=== PATIENT | male | born 1970 | race Caucasian/White ===

== ENCOUNTER 2024-11-13 12:11 | Emergency (ER) | payer OTHER, SELFPAY ==
[2024-11-13 12:12] VITALS: BP 118/80; PULSE 68; RESP 18; TEMP 36.6; O2SAT 95; BMI 33.3
--- NOTE | 2024-11-13 12:32 | EDS_ITS ---
HPI History of Present Illness Chief Complaint: Dizziness [facility] Medical History (Updated 11/13/24 @ 12:16 by Saba Gaines) Brain cancer Home Medications ?Medication ?Instructions ?Recorded ?Last Taken ?Type metoclopramide HCl 5 mg tablet 5 mg PO Q8H PRN PRN cathy [place] and 11/13/24 Unknown Rx (Reglan) vomiting 3 days #9 tabs midazolam 2 mg/mL oral syrup 2 mg PO Q12H PRN PRN dizz iness or 11/13/24 Unknown Rx vertigo 3 days #118 mL Allergy/AdvReac Type Severity Reaction Status Date / Time No Known Allergies Allergy Verified 11/13/24 12:14 Family History no significant family his Social History (Updated 11/13/24 @ 12:16 by Saba Gaines) household members: family housing: house current occupational status: disabled Smoking Status: Never smoker EXAM Physical Exam Const Vital Signs: 11/13/24 12:12 11/13/24 13:11 11/13/24 14:00 Temperature 97.9 F Temperature Source Oral Pulse Rate 68 78 53 L Respiratory Rate 18 16 23 H Blood Pressure 118/80 130/87 H 136/83 H Blood Pressure Mean 92 101 99 Pulse Ox 95 98 98 Oxygen Delivery Method Room Air 11/13/24 15:00 11/13/24 15:22 Temperature 98.3 F Temperature Source Pulse Rate 89 89 Respiratory Rate 16 16 Blood Pressure 120/78 120/78 Blood Pressure Mean 92 92 Pulse Ox 98 98 Oxygen Delivery Method MDM MDM MDM Narrative Medical decision making narrative: HISTORY OF PRESENT ILLNESS: Chief complaint: Dizziness, nausea 54-year-old male history of brain cancer presents with dizziness and nausea. Notes he is in the shower he got dizzy and nauseous but did not fall. He further states this began just prior to arrival. Similar to symptoms that occurred last fall. No recent trauma to the brain. No bleeding diathesis. No chest pain. No palpitations. No shortness of breath. No fever no cough. No leg swelling. No abdominal pain REVIEW OF SYSTEMS: Pertinent positives: Dizziness, nausea Pertinent negatives: Chest pain, palpitations PHYSICAL EXAM: Nursing triage notes reviewed, Vital signs reviewed Constitutional: please see mdm HENT: MMM Eyes: Pupils equal round and reactive to light, Extraocular muscles intact Neck: No stridor, no JVD, full neck ROM Lungs: Clear to auscultation, No wheezing or rales. No increased work of breathing, no conversational dyspnea, no accessory muscle use, no nasal flaring. No respiratory distress noted Heart: Regular rate and rhythm, No murmurs, No rubs and No gallops, 2+ distal pulses (radial, femoral, posterior tibial) in all extremities Abdomen: Soft, there is no tenderness, rigidity, rebound or guarding, no obvious peritoneal signs, no palpable pulsatile abdominal masses, no auscultated abdominal bruit : No CVAT Extremities: No edema Neuro: No new focal neurological deficits, cranial nerves II through XII intact, 5/5 strength in all present extremities. Intact sensation to light touch in all present extremities, 2+ reflexes bilateral patella tendons. Skin: No rash or lesions noted MEDICAL DECISION MAKING: Chief Complaint: please see HPI [facility] reviewed[facility] Factors affecting care: History of brain cancer self-reported by patient Social determinants of health: none History obtained from others: none Consults: none MDM Narrative: The patient was initially hemodynamically stable, afebrile and nontoxic- appearing. Exam without focal neurologic deficits. I considered the following differential diagnosis: ICH, mass, arrhythmia, VTE, ACS, electrolyte disturbance, anemia, acute kidney injury, amongst others Patient was initially treated IV fluids, IV Reglan for headache and nausea, IV Versed as well as oral meclizine. ALL IMAGES (IF OBTAINED) HAVE BEEN PERSONALLY REVIEWED AND INTERPRETED BY MYSELF. CBC with no leukocytosis, no anemia or thrombocytopenia noted D-dimer negative making VTE less likely CMP without evidence of acute kidney injury, significant electrolyte abnormality, anion gap to suggest end organ hypo-perfusion, no evidence of met abolic acidosis with a normal bicarbonate, no evidence of hepatobiliary obstructive pathology. High-sensitivity troponin is negative, no evidence of myocardial ischemia CT scan of the brain shows no evidence of obvious ICH or mass. Does note a postop seroma discussed postop seroma patient states this is chronic. Formal ED physician's of his opinion is highly valued. I have personally reviewed the patient's chest x-ray. Chest x-ray is unremarkable for pulmonary edema, pneumothorax, pneumonia or focal cardiopulmonary abnormality. The synthesis of the patient's history, physical exam, labs images suggest no acute life-limiting etiology specifically no sign of intracranial abnormality. After the above therapies patient noted significant improvement in dizziness. Is able to ambulate with a non-ataxic gait. Patient is appropriate for discharge home I suspect his symptoms are related to sequelae from chemotherapy and history of brain cancer. The patient and/or family, caregivers express understanding. The patient and/or family, caregivers agrees with the plan. Shared decision making: I will have a discussion with the patient and or visitors regarding risk/benefits of further testing or admission. They will be made aware of of the risk/benefits inherent in this decision they will be given the opportunity to voice understanding. Total critical care time today provided was at least 0minutes. This excludes separately billable procedures. Critical care time (if documented) is secondary to the patient having high probability of clinically significant/life threatening deterioration in the patient's condition which required my urgent intervention. Impression: 1. Dizziness 2. Vertigo 3. History of brain cancer Dispo: Discharge home This note was generated with [employer] dictation software. It may contain incorrect words, spelling, and punctuation that were not noted in review of the chart prior to signing. Lab Data Labs: Laboratory Results - last 24 hr 11/13/24 12:28 WBC 5.5 RBC 3.99 L Hgb 13.5 Hct 37.4 L MCV 93.7 MCH 33.8 H MCHC 36.1 H RDW Std Deviation 49.3 H RDW Coeff of Alyssa 14.3 Plt Count 187 MPV 9.1 Immature Gran % (Auto) 0.400 Neut % (Auto) 72.9 H Lymph % (Auto) 12.5 L [place] % (Auto) 12.6 H Eos % (Auto) 0.7 Baso % (Auto) 0.9 Absolute Neuts (auto) 4.0 Absolute Lymphs (auto) 0.69 L Nucleated RBC % 0 D-Dimer Quant (PE/DVT) 0.34 Sodium 136 Potassium 3.9 Chloride 104 Carbon Dioxide 20.5 L Anion Gap 12 BUN 16 Creatinine 1.14 Estim Creat Clear Calc 85.35 Est GFR (MDRD) Non-Af 75 BUN/Creatinine Ratio 13.8 Glucose 100 H Calcium 9.1 Total Bilirubin 0.53 AST 14 ALT 10 Alkaline Phosphatase 80 Troponin T High Sens 9 Total Protein 6.6 Albumin 3.8 Globulin 2.8 Albumin/Globulin Ratio 1.4 Radiography Diagnostic Testing: Clinical Impression(s) from Imaging Studies Brain CT 11/13/24 12:44 IMPRESSION: 1. No obvious acute intracranial finding. 2. Prior left pterional craniotomy with encephalomalacia and gliosis within the left temporal lobe. 3. Fluid overlying the craniotomy site, most compatible with seroma. Correlation with patient history recommended. Reading Location: [facility] Chest X-Ray 11/13/24 13:16 IMPRESSION: Negative Chest. Reading Location: [facility] Discharge Plan Triage Chief Complaint: Dizziness ED Provider: You Schaefer Dx/Rx/DC Orders Instructions: ED Dizziness, Uncertain Cause Prescriptions: New midazolam 2 mg/mL syrup 2 mg PO Q12H PRN PRN (Reason: dizziness or vertigo) 3 Days Qty: 118 0RF metoclopramide HCl [Reglan] 5 mg tablet 5 mg PO Q8H PRN PRN (Reason: nausea and vomiting) 3 Days Qty: 9 0RF Primary Care Provider: Care Physician,No Primary Activity Restrictions/Additional Instructions: Thank you for trusting us with your care today! Your labs images were reassuring. Please take Tylenol (2 pills, 650 mg), ibuprofen (2 pills, 400 mg) every 6 hours as needed for pain and fever control. Please take Reglan for breakthrough headache or nausea Please take Versed (midazolam) as needed for improvement in dizziness. Unfortunately I cannot find a tablet on our prescribing formulary so I was forced to prescribe an oral solution. Please return to the emergency department if your symptoms change or worsen. Please follow with your primary care physician and/or oncologist for further outpatient evaluation and management. Print Language: Japanese Disposition Disposition: Home, Self Care Discharge Date/Time: 11/13/24 15:28
--- NOTE | 2024-11-13 12:44 | CT_ITS ---
EXAM: BRAIN/HEAD WITHOUT CONTRAST CLINICAL HISTORY: 54 y/o M with DIZZINESS, HX OF BRAIN MASS. COMPARISON: None. TECHNIQUE: Routine CT imaging of the head without IV contrast. Additional multiplanar reformats were obtained. Dose reduction techniques were used including intermediate exposure control (AEC),iterative reconstruction technique, and/or mA and/or KV dose adjustments based on patient's size. FINDINGS: Prior left pterional craniotomy with encephalomalacia and gliosis within the left temporal lobe extending into the left basal nucleus, compatible with reported history of brain mass and prior resection. Fluid collection overlying the craniotomy site. No acute intracranial hemorrhage or herniation. The orbits, visualized paranasal sinuses and mastoids are unremarkable. No acute calvarial fracture or scalp hematoma. CT/Brain/Head without Contrast IMPRESSION: 1. No obvious acute intracranial finding. 2. Prior left pterional craniotomy with encephalomalacia and gliosis within the left temporal lobe. 3. Fluid overlying the craniotomy site, most compatible with seroma. Correlati on with patient history recommended. Reading Location: [id number]
--- NOTE | 2024-11-13 12:44 | EKG12_ITS ---
Test Reason : DIZZY Blood Pressure : */* mmHG Vent. Rate : 64 BPM Atrial Rate : 64 BPM P-R Int : 178 ms QRS Dur : 90 ms QT Int : 422 ms P-R-T Axes : 48 12 25 degrees QTcB Int : 435 ms Normal sinus rhythm Normal ECG Confirmed by REINIER DURAN, DIA ([id number]), assistant editor DANNY JESUS ([id number]) on 11/14/2024 9:16:14 AM Referred By: Confirmed By: DIA HILLS MD
[2024-11-13] MEDS: Metoclopramide 10 MG/2 ML Vial 5 MG IV (12:56)
[2024-11-13] MEDS: 0.9% Normal Saline (1000mL) 1,000 ML 1000 ML IV (12:56)
[2024-11-13] MEDS: Midazolam 2 MG/2 ML Syringe IV (12:56)
[2024-11-13 13:01] LABS: Absolute Lymphocyte Count 0.69 X10^3/uL (0.83-4.51); Basophil# 0.05 X10^3/uL; Basophil% 0.9 % (0-1); Eosinophil# 0.04 X10^3/uL; Eosinophils% 0.7 % (0-5); Hematocrit 37.4 % (40-54); Hemoglobin 13.5 g/dL (13.0-16.5); Lymphocyte # 0.69 X10^3/ul (0.83-4.51); Lymphocyte % 12.5 % (19-41); Mean Corp Hgb Conc 36.1 g/dL (32-36); Mean Corpuscular Hgb 33.8 pg (27.0-32.0); Mean Corpuscular Volume 93.7 fL (80-94); Mean Platelet Vol. 9.1 fl (6.2-12.0); Monocyte% 12.6 % (0-10); NRBC Flagged by Analyzer 0 % (0-5); Neutrophil # 4.04 X10^3/uL (2.7-7.7); Neutrophil % 72.9 % (47-70); Platelet Count 187 K/mm3 (150-450); RBC Distribution Width CV 14.3 % (11.6-14.6); RBC Distribution Width SD 49.3 fl (35.1-43.9); Red Blood Count 3.99 M/mm3 (4.6-6.2); White Blood Count 5.5 K/mm3 (4.4-11.0)
[2024-11-13 13:07] LABS: Troponin T High Sensitivity 9 ng/L (<=22)
[2024-11-13 13:09] LABS: ALB/GLOB Ratio 1.4 RATIO (0.9-2.4); AST(SGOT) 14 U/L (<=37); Alanine Aminotransfer ALT/SGPT 10 U/L (<=46); Albumin, Serum 3.8 g/dL (3.5-5.0); Alkaline Phosphatase 80 U/L (40-129); Anion Gap 12 (5-15); BUN 16 mg/dL (4-19); BUN/Creat Ratio 13.8 RATIO (10-20); Calcium,Total 9.1 mg/dL (7.6-11.0); Carbon Dioxide 20.5 mmol/L (21.0-32.0); Chloride 104 mmol/L (98-108); Creatinine, Serum 1.14 mg/dL (0.70-1.20); EST Glomerular Filtration Rate 75 (>60); Estimated Creatinine Clearance 85.35 ml/min (50-250); Globulin 2.8 g/dL (2.2-4.2); Glucose 100 mg/dL (70-99); Potassium 3.9 mmol/L (3.3-5.1); Protein, Total 6.6 g/dL (5.9-8.4); Sodium Level 136 mmol/L (133-145); Total Bilirubin 0.53 mg/dL (0.00-1.30)
[2024-11-13 13:11] VITALS: BP 130/87; PULSE 78; RESP 16; O2SAT 98
--- NOTE | 2024-11-13 13:16 | RAD_ITS ---
PROCEDURE: CHEST 1 VIEW (PORTABLE) 11/13/2024 REASON FOR EXAM: DIZZINESS TECHNIQUE: Frontal view of the chest. COMPARISON: None. FINDINGS: Hardware: Right chest port with tip overlying the right atrium. Heart: The heart size is normal. Lungs: No focal consolidation, pleural effusion or pneumothorax. Bones: The bones are unremarkable. RAD/Chest 1 View (Portable) IMPRESSION: Negative Chest. Reading Location: [id number]
[2024-11-13 13:17] LABS: D-Dimer Quantitative (DVT/PE) 0.34 FEU/ug/m (0.27-0.49)
[2024-11-13 14:00] VITALS: BP 136/83; PULSE 53; RESP 23; O2SAT 98
[2024-11-13] MEDS: Meclizine HCl 25 MG Tablet PO (14:26)
[2024-11-13 15:00] VITALS: BP 120/78; PULSE 89; RESP 16; O2SAT 98
[2024-11-13 15:22] VITALS: BP 120/78; PULSE 89; RESP 16; TEMP 36.8; O2SAT 98
== END 2024-11-13 15:28 | disposition home or self-care (01) ==
PROVIDERS: Emergency Provider Emergency Medicine; Visit Provider Emergency Medicine
DX: R42 Dizziness and giddiness (principal); Z85.841 Personal history of malignant neoplasm of brain; Z92.21 Personal history of antineoplastic chemotherapy
CPT/HCPCS: 36591; 70450; 71045; 80053; 84484; 85025; 85379; 93005; 96361; 96374; 96375; 99285; A4216

== ENCOUNTER 2025-03-23 11:06 | Emergency (ER) | payer OTHER, SELFPAY ==
[2025-03-23] VITALS (21 sets, daily range): BP systolic 114–138; BP diastolic 58–96; PULSE 40–77; RESP 12–19; TEMP 36.6–37.2; O2SAT 98–100; BMI 30.9
--- NOTE | 2025-03-23 11:26 | CT_ITS ---
PROCEDURE: STROKE BRAIN/HEAD WITHOUT CONT 03/23/2025 REASON FOR EXAM: NEURO DEFICIT, ACUTE, STROKE SUSPECTED Glioblastoma status post 2 prior surgeries. TECHNIQUE: STROKE BRAIN/HEAD WITHOUT CONT Coronal and Sagittal reconstruction series were provided. One or more dose reduction techniques were used (e.g., Automated exposure control, adjustment of the mA and/or kV according to patient size, use of iterative reconstruction technique. RADIATION DOSE SUMMARY: CTDlvol: 45 mGy DLP: 796 mGycm COMPARISON: November 13, 2024 FINDINGS: Brain: The patient has undergone prior and left temporal craniotomy for known brain malignancy. The margin of the cavity posteriorly shows some subtle mineralization as does the dura matter deep to the surgical site which is not unexpected. Since the exam of November 13 there has been significant interval development of vasogenic edema that extends into the left frontal lobe, caudate, internal capsule, putamen, globus pallidus and lateral thalamus. The mass effect is associated with midline shift to the right 5.4 mm. There is some mass effect on the temporal lobe inferiorly but no definite uncal herniation. Mass effect is also seen on the left lateral ventricle. A demonstrable mass is not seen well on this noncontrast exam but is very likely present. No definite features of the ischemia. CSF Spaces: No obstructive hydronephrosis. Sinuses/Mastoids: Clear Bones: Left temporal craniotomy. CT/STROKE Brain/Head without Cont IMPRESSION: 1. Postsurgical changes left temporal region. Significant interval developmen t of vasogenic edema likely from an underlying tumor recurrence. There is midline shift of 5.4 mm. No obstructive hydrocepha natan at this time. When the patient is stabilized, he may benefit from contrast-enhanced MRI. 2. No findings of definite ischemia. The findings and impression of this report were called directly to Emily Hooper 11:45 a.m. Eastern standard time. Reading Location: [id number]
--- NOTE | 2025-03-23 11:28 | EDS_ITS ---
HPI <KIA Lora - Last Filed: 03/23/25 13:23> History of Present Illness Chief Complaint: Numb/Ting Narrative Narrative: 54-year-old male has a history of brain cancer. He thinks its glioblastoma and he is on chemotherapy. He has had 2 surgeries at [facility] and has chronic expressive aphasia. This morning at 7:45 AM he got up and fed his pets and felt normal. He took a nap and woke up around 10 AM and had difficulty moving his right arm and leg and was unable to walk. He is accompanied by his mom who he lives with. He last had chemo about 2 weeks ago. He does not think he is on blood thinners. PFS <KIA Lora - Last Filed: 03/23/25 13:23> [facility] Medical History (Updated 03/23/25 @ 13:07 by KIA Lora) Brain cancer Home Medications ?Medication ?Instructions ?Recorded ?Last Taken ?Type metoclopramide HCl 5 mg tablet 5 mg PO Q8H PRN PRN cathy sea and 11/13/24 Unknown Rx (Reglan) vomiting 3 days #9 tabs midazolam 2 mg/mL oral syrup 2 mg PO Q12H PRN PRN dizz iness or 11/13/24 Unknown Rx vertigo 3 days #118 mL Allergy/AdvReac Type Severity Reaction Status Date / Time No Known Allergies Allergy Verified 03/23/25 11:11 Social History household members: family housing: house current occupational status: disabled Smoking Status: Former smoker ROS <KIA Lora - Last Filed: 03/23/25 13:23> ROS ED ROS Narrative Constitutional: Negative for fever, chills, malaise. Respiratory: Negative for shortness of breath, cough,. GI: Negative for abdominal pain, vomiting, diarrhea. Neuro: Negative for headache. EXAM <KIA Lora - Last Filed: 03/23/25 13:23> Physical Exam Narrative Exam Narrative: CONST: Patient sitting in no acute distress. EYES: Normal inspection. NECK: Normal inspection. RESP: No respiratory distress, CTAB. CVS: Regular rate and rhythm, no murmur, no gallop. SKIN: Color normal, no rash, warm, dry, intact. EXTREMITIES: Normal appearance, no pedal edema. NEURO: Alert and oriented, EOMI, visual land intact, face symmetric, right arm drifts but does not hit bed, right leg drifts and hits the bed, unable to do finger-nose or [id number] testing, mild to moderate expressive aphasia. NIH is 5. PSYCH: Normal affect. Const Vital Signs: 03/23/25 11:09 03/23/25 11:29 03/23/25 11:56 Temperature 98.9 F Temperature Source Oral Pulse Rate 73 40 L 77 Respiratory Rate 15 18 14 Blood Pressure 138/92 H 137/96 H 120/86 H Blood Pressure Mean 107 109 97 Pulse Ox 98 98 99 Oxygen Delivery Method Room Air 03/23/25 12:08 03/23/25 12:26 03/23/25 12:30 Temperature Temperature Source Pulse Rate 61 60 Respiratory Rate 15 16 Blood Pressure 124/84 H 124/84 H Blood Pressure Mean 97 97 Pulse Ox 98 99 Oxygen Delivery Method Room Air Room Air 03/23/25 13:00 03/23/25 13:30 03/23/25 14:00 Temperature Temperature Source Pulse Rate 50 L 50 L 57 L Respiratory Rate 16 18 Blood Pressure 114/58 L 120/78 121/88 H Blood Pressure Mean 76 92 99 Pulse Ox 98 98 99 Oxygen Delivery Method Room Air Room Air <Dr. Dee Dee Mitchell MD - Last Filed: 03/23/25 14:44> Physical Exam Const Vital Signs: 03/23/25 11:09 03/23/25 11:29 03/23/25 11:56 Temperature 98.9 F Temperature Source Oral Pulse Rate 73 40 L 77 Respiratory Rate 15 18 14 Blood Pressure 138/92 H 137/96 H 120/86 H Blood Pressure Mean 107 109 97 Pulse Ox 98 98 99 Oxygen Delivery Method Room Air 03/23/25 12:08 03/23/25 12:26 03/23/25 12:30 Temperature Temperature Source Pulse Rate 61 60 Respiratory Rate 15 16 Blood Pressure 124/84 H 124/84 H Blood Pressure Mean 97 97 Pulse Ox 98 99 Oxygen Delivery Method Room Air Room Air 03/23/25 13:00 03/23/25 13:30 03/23/25 14:00 Temperature Temperature Source Pulse Rate 50 L 50 L 57 L Respiratory Rate 16 18 Blood Pressure 114/58 L 120/78 121/88 H Blood Pressure Mean 76 92 99 Pulse Ox 98 98 99 Oxygen Delivery Method Room Air Room Air [facility] <KIA Lora - Last Filed: 03/23/25 13:23> [facility] Narrative Medical decision making narrative: History gathered from: Patient and his mom Differential includes but not limited to tumor recurrence, hemorrhage, ischemia Consults: [facility] neurosurgery, [facility] 54 old male with past medical history of glioblastoma, brain surgery x 2, chronic expressive aphasia presents with new right sided weakness in his arm and leg that started this morning. He is awake and alert no distress. GCS 15. Vital stable with blood pressure 138/92, HR 93, 98% on room air. He has expressive aphasia which is mom states is baseline. His right arm drifts but does not hit the bed and his right leg drifts and hits the bed. He has decreased right-sided sensation. He cannot perform finger-nose or [id number] testing on the right. NIH is around 5. I called a stroke team and he was taken immediately to CT. CT brain shows significant interval vasogenic edema likely from underlying tumor recurrence and midline shift of 5.4 mm. No obstructive hydrocephalus. No definite findings of ischemia. CTA head/neck negative. I ordered IV Decadron 10 mg and loading dose of IV Keppra 2000 mg. Blood work shows pancytopenia with WBC of 3.4, Hgb 12.1, PLT 141 likely from his chemotherapy. I do not have recent labs for comparison. Since he receives neurosurgical and oncologic care at [facility] he will need transferred. I spoke with the neurosurgeon there who states that nonsurgical and recommended admission to the oncology floor. I spoke with Dr. Zhao in [facility] who accepted the patient and he is awaiting a bed. 35 minutes of critical care time was consumed by evaluation of the patient, initial stroke team, discussion with multiple consultants for treatment and planning. Patient seen and evaluated with QI. I personally interviewed and examined the patient. I was involved in all aspects of patient's orders, interpretation of results, and treatment. In brief patient is a 54-year-old male with past medical history of a glioblastoma x 2 brain surgeries. He has chronic aphasia. Mother is at bedside. She states that his speech has been worsening over the past 2 weeks. Patient states that it has been longer than that. Last known well was 8 AM this morning. NIH of 4 on my exam for right arm and right leg drift but not hitting bed. Decreased sensation on the right and right sided minor facial droop. Expressive aphasia has been more chronic in nature, this was not included in my NIH. CT shows postsurgical changes left temporal region. Significant interval development of vasogenic edema likely from an underlying tumor recurrence. There is midline shift of 5.4 mm. No obstructive hydrocephalus at this time. When the patient is stabilized, he may benefit from contrast-enhanced MRI. No findings of definite ischemia. CTA within normal notes. Patient was evaluated with telestroke neurologist, Dr. Lopez. He recommended decadron IV and transfer to [facility] where he receives care versus [facility]. Discussed this with patient and mother at bedside. They would like to go to [facility]. [facility]I will transfer patient for further care. I recommended Keppra for seizure prophylaxis. History & Record Review Discussion w/independent historian: Patient and Family Additional record(s) reviewed:: Prior ED visit and Prior labs Lab Data Attestation: I reviewed the patient's lab results. Labs: Laboratory Results - last 24 hr 03/23/25 03/23/25 11:45 13:42 WBC 3.4 L RBC 3.46 L Hgb 12.1 L Hct 34.1 L MCV 98.6 H MCH 35.0 H MCHC 35.5 RDW Std Deviation 51.7 H RDW Coeff of Alyssa 14.6 Plt Count 141 L MPV 9.7 Immature Gran % (Auto) 2.100 H Neut % (Auto) 70.8 H Lymph % (Auto) 10.0 L Twiggs % (Auto) 16.5 H Eos % (Auto) 0.3 Baso % (Auto) 0.3 Absolute Neuts (auto) 2.4 Absolute Lymphs (auto) 0.34 L Nucleated RBC % 0 PT 13.3 INR 1.0 APTT 30.3 Sodium 139 Potassium 4.0 Chloride 107 Carbon Dioxide 22.3 Anion Gap 11 BUN 13 Creatinine 1.16 Estim Creat Clear Calc 80.88 Est GFR (MDRD) Non-Af 74 BUN/Creatinine Ratio 11.1 Glucose 101 H Calcium 9.1 Troponin T High Sens 10 D Troponin T Hi Sens 2 Hr 10 Radiography Diagnostic Testing: Clinical Impression(s) from Imaging Studies Brain CT 03/23/25 11:26 IMPRESSION: 1. Postsurgical changes left temporal region. Significant interval development of vasogenic edema likely from an underlying tumor recurrence. There is midline shift of 5.4 mm. No obstructive hydrocephalus at this time. When the patient is stabilized, he may benefit from contrast-enhanced MRI. 2. No findings of definite ischemia. The findings and impression of this report were called directly to Emily Hooper 11:45 a.m. Eastern standard time. Reading Location: [id number] Head/Neck CTA 03/23/25 11:33 IMPRESSION: CTA of the brain and neck is within normal limits. Reading Location: [facility] <Dr. Dee Dee Mitchell MD - Last Filed: 03/23/25 14:44> [facility] MDM Narrative Medical decision making narrative: History gathered from: Patient and his mom 54 old male with past medical history of glioblastoma, brain surgery x 2, chronic expressive aphasia presents with new right sided weakness in his arm and leg that started this morning. He is awake and alert no distress. GCS 15. Vital stable with blood pressure 138/92, HR 93, 98% on room air. He has expressive aphasia which is mom states is baseline. His right arm drifts but does not hit the bed and his right leg drifts and hits the bed. He has decreased right-sided sensation. He cannot perform finger-nose or egca-xv-[id number] testing on the right. NIH is around 5. I called a stroke team and he was taken immediately to CT. CT brain shows significant interval vasogenic edema likely from underlying tumor recurrence and midline shift of 5.4 mm. No obstructive hydrocephalus. No definite findings of ischemia. I ordered IV Decadron 10 mg and loading dose of IV Keppra 2000 mg. Blood work shows pancytopenia with WBC of 3.4, Hgb 12.1, PLT 141 likely from his chemotherapy. I do not have recent labs for comparison. Patient seen and evaluated with QI. I personally interviewed and examined the patient. I was involved in all aspects of patient's orders, interpretation of results, and treatment. In brief patient is a 54-year-old male with past medical history of a glioblastoma x 2 brain surgeries. He has chronic aphasia. Mother is at bedside. She states that his speech has been worsening over the past 2 weeks. Patient states that it has been longer than that. Last known well was 8 AM this morning. NIH of 4 on my exam for right arm and right leg drift but not hitting bed. Decreased sensation on the right and right sided minor facial droop. Expressive aphasia has been more chronic in nature, this was not included in my NIH. CT shows postsurgical changes left temporal region. Significant interval development of vasogenic edema likely from an underlying tumor recurrence. There is midline shift of 5.4 mm. No obstructive hydrocephalus at this time. When the patient is stabilized, he may benefit from contrast-enhanced MRI. No findings of definite ischemia. CTA within normal notes. Patient was evaluated with telestroke neurologist, Dr. Lopez. He recommended decadron IV and transfer to [facility] where he receives care versus [facility]. Discussed this with patient and mother at bedside. They would like to go to [facility]. QI will transfer patient for further care. I recommended Keppra for seizure prophylaxis. Lab Data Labs: Laboratory Results - last 24 hr 03/23/25 03/23/25 11:45 13:42 WBC 3.4 L RBC 3.46 L Hgb 12.1 L Hct 34.1 L MCV 98.6 H MCH 35.0 H MCHC 35.5 RDW Std Deviation 51.7 H RDW Coeff of Alyssa 14.6 Plt Count 141 L MPV 9.7 Immature Gran % (Auto) 2.100 H Neut % (Auto) 70.8 H Lymph % (Auto) 10.0 L Twiggs % (Auto) 16.5 H Eos % (Auto) 0.3 Baso % (Auto) 0.3 Absolute Neuts (auto) 2.4 Absolute Lymphs (auto) 0.34 L Nucleated RBC % 0 PT 13.3 INR 1.0 APTT 30.3 Sodium 139 Potassium 4.0 Chloride 107 Carbon Dioxide 22.3 Anion Gap 11 BUN 13 Creatinine 1.16 Estim Creat Clear Calc 80.88 Est GFR (MDRD) Non-Af 74 BUN/Creatinine Ratio 11.1 Glucose 101 H Calcium 9.1 Troponin T High Sens 10 D Troponin T Hi Sens 2 Hr 10 Radiography Diagnostic Testing: Clinical Impression(s) from Imaging Studies Brain CT 03/23/25 11:26 IMPRESSION: 1. Postsurgical changes left temporal region. Significant interval development of vasogenic edema likely from an underlying tumor recurrence. There is midline shift of 5.4 mm. No obstructive hydrocephalus at this time. When the patient is stabilized, he may benefit from contrast-enhanced MRI. 2. No findings of definite ischemia. The findings and impression of this report were called directly to Emily Hooper 11:45 a.m. Eastern standard time. Reading Location: [facility] Head/Neck CTA 03/23/25 11:33 IMPRESSION: CTA of the brain and neck is within normal limits. Reading Location: [facility] Discharge Plan Triage Chief Complaint: Numb/Ting ED Midlevel Provider: Viv Hooper ED Provider: Dee Dee Mitchell Dx/Rx/DC Orders Clinical Impression: Vasogenic cerebral edema, Glioblastoma, Midline shift of brain, Acute right- sided weakness Prescriptions: No Action midazolam 2 mg/mL syrup 2 mg PO Q12H PRN PRN (Reason: dizziness or vertigo) 3 Days Qty: 118 0RF metoclopramide HCl [Reglan] 5 mg tablet 5 mg PO Q8H PRN PRN (Reason: nausea and vomiting) 3 Days Qty: 9 0RF Primary Care Provider: Care Physician,No Primary Referrals: Care Physician,No Primary [Primary Care Provider] - Print Language: [place] Citizen
--- NOTE | 2025-03-23 11:33 | CT_ITS ---
PROCEDURE: STROKE CTA HEAD AND NECK W/CON 03/23/2025 REASON FOR EXAM: STROKE TECHNIQUE: STROKE CTA HEAD AND NECK W/CON Multiplanar Sagittal and Coronal images were obtained. CONTRAST: 75 cc of Isovue-300 One or more dose reduction techniques were used (e.g., Automated exposure control, adjustment of the mA and/or kV according to patient size, use of iterative reconstruction technique). RADIATION DOSE SUMMARY: DLP: 1623 mGycm COMPARISON: None FINDINGS: Aortic Arch: Patent Brachiocephalic and Subclavians: Patent RIGHT Carotid: Right CCA: Patent Right ICA: Patent Maximum stenosis (NASCET): 0 % Right ECA: Patent LEFT Carotid: Left CCA: Patent Left ICA: Patent Maximum stenosis (NASCET): 0 % Left ECA: Patent Vertebrals: Patent RIGHT Vertebral: Patent LEFT Vertebral: Patent Anatomy: Anatomic Aneurysm or avm: None Anterior cerebral arteries: Patent Middle cerebral arteries: Patent Basilar artery: Patent Posterior cerebral arteries: Patent Other major branches of the posterior circulation: Patent Major venous structures: Patent Other findings: Neck: A central access port is noted in the right. Lungs: Clear bones: Craniotomy changes are noted on the left with postsurgical changes in the frontal and temporal region, with changes in the brain discussed separately. CT/STROKE CTA Head AND Neck W/Con IMPRESSION: CTA of the brain and neck is within normal limits. Reading [facility]
[2025-03-23 11:53] LABS: Hematocrit 34.1 % (40-54); Hemoglobin 12.1 g/dL (13.0-16.5); Immature Granulocytes Count 0.070 X10^3/uL (0.0-0.0); Mean Corp Hgb Conc 35.5 g/dL (32-36); Mean Corpuscular Volume 98.6 fL (80-94); Mean Platelet Vol. 9.7 fl (6.2-12.0); NRBC Flagged by Analyzer 0 % (0-5); POSITIVE DIFFERENTIAL YES; Platelet Count 141 K/mm3 (150-450); RBC Distribution Width CV 14.6 % (11.6-14.6); RBC Distribution Width SD 51.7 fl (35.1-43.9); Red Blood Count 3.46 M/mm3 (4.6-6.2); White Blood Count 3.4 K/mm3 (4.4-11.0)
[2025-03-23 12:04] LABS: Prothrombin Time (Protime)PT. 13.3 SECONDS (11.7-14.9)
[2025-03-23 12:06] LABS: Partial Thromboplast Time 30.3 Seconds (24.1-36.2)
[2025-03-23] MEDS: levETIRAcetam IV 2,000 MG in 0.9% Normal Saline (250mL Bag) 230 ML 1000 MG IV (12:30)
[2025-03-23 12:37] LABS: Anion Gap 11 (5-15); BUN 13 mg/dL (4-19); BUN/Creat Ratio 11.1 RATIO (10-20); Calcium,Total 9.1 mg/dL (7.6-11.0); Carbon Dioxide 22.3 mmol/L (21.0-32.0); Chloride 107 mmol/L (98-108); Estimated Creatinine Clearance 80.88 ml/min (50-250); Glucose 101 mg/dL (70-99); Potassium 4.0 mmol/L (3.3-5.1); Troponin T High Sensitivity 10 ng/L (<=22)
[2025-03-23 14:16] LABS: Troponin T High Sens 2 HR 10 ng/L (<=22)
--- NOTE | 2025-03-23 22:22 | PCM.HP.STD ---
HPI - General General Date of Admission: 03/23/25 Date of Service: 03/23/25 Chief Complaint: Right-sided Numbness and Tingling. HPI Narrative SARINA KEATING, is a 54 M with a past medical history of former tobacco abuse and glioblastoma; on chemotherapy and s/p 2 surgeries at [facility] with chronic expressive aphasia on as needed metoclopramide and as needed midazolam who presents to [facility] ER complaining of right arm and leg weakness and numbness with patient unable to walk since he woke up from a nap ~10 AM. He lives at home with his mother and his last chemotherapy was ~2 weeks ago with no other recent acute illness or medication changes. His mother informed the ER physician that he is speech has been worsening over the past ~2 weeks with decree sensation on the right and minor right sided facial droop in the ER he underwent CTA of the head and neck with IV contrast that revealed significant interval vasogenic edema likely from underlying tumor recurrence and midline shift of ~5.4 mm with no obstructive hydrocephalus or definite findings of ischemia. Patient was then evaluated with telestroke neurologist Dr. Womack and he recommended IV dexamethasone and transferred to [facility] where he receives his care with the patient and mother in agreement with this recommendation. Patient was started on IV levetiracetam for seizure prophylaxis. His labs revealed mild pancytopenia; with leukopenia of 3.4 K, anemia with hemoglobin of 12.1 g/dL and moderate thrombocytopenia of 141K present on admission with Left-shift of 2.1% with otherwise unremarkable laboratory studies and vital signs. He was then admitted to the PCU to receive care after he has been in the ER for more than 6 hours as per this hospital's policy with plan to transfer to [facility] when a bed becomes available. [facility] Medical History Brain cancer Home Medications ?Medication ?Instructions ?Recorded ?Last Taken ?Type metoclopramide HCl 5 mg tablet 5 mg PO Q8H PRN PRN nausea and 11/13/24 Unknown Rx (Reglan) vomiting 3 days #9 tabs midazolam 2 mg/mL oral syrup 2 mg PO Q12H PRN PRN dizziness or 11/13/24 Unknown Rx vertigo 3 days #118 mL Allergy/AdvReac Type Severity Reaction Status Date / Time No Known Allergies Allergy Verified 03/23/25 11:11 Social History household members: family housing: house current occupational status: disabled Smoking Status: Former smoker ROS ROS Narrative Review of Systems: Vital Signs Vital Signs Vital Signs: 03/23/25 11:09 03/23/25 11:29 03/23/25 11:56 Temperature 98.9 F Temperature Source Oral Pulse Rate 73 40 L 77 Respiratory Rate 15 18 14 Blood Pressure 138/92 H 137/96 H 120/86 H Blood Pressure Mean 107 109 97 Pulse Ox 98 98 99 Oxygen Delivery Method Room Air 03/23/25 12:08 03/23/25 12:26 03/23/25 12:30 Temperature Temperature Source Pulse Rate 61 60 Respiratory Rate 15 16 Blood Pressure 124/84 H 124/84 H Blood Pressure Mean 97 97 Pulse Ox 98 99 Oxygen Delivery Method Room Air Room Air 03/23/25 13:00 03/23/25 13:30 03/23/25 14:00 Temperature Temperature Source Pulse Rate 50 L 50 L 57 L Respiratory Rate 16 18 Blood Pressure 114/58 L 120/78 121/88 H Blood Pressure Mean 76 92 99 Pulse Ox 98 98 99 Oxygen Delivery Method Room Air Room Air 03/23/25 14:30 03/23/25 15:00 03/23/25 15:30 Temperature Temperature Source Pulse Rate 55 L 56 L 56 L Respiratory Rate 18 19 H Blood Pressure 130/66 H 128/78 H 123/93 H Blood Pressure Mean 87 94 103 Pulse Ox 98 99 100 Oxygen Delivery Method 03/23/25 16:00 03/23/25 16:30 03/23/25 17:00 Temperature Temperature Source Pulse Rate 68 58 L 60 Respiratory Rate 12 19 H 18 Blood Pressure 131/93 H 117/78 120/78 Blood Pressure Mean 105 91 92 Pulse Ox 99 99 100 Oxygen Delivery Method 03/23/25 17:30 03/23/25 18:00 03/23/25 18:30 Temperature Temperature Source Pulse Rate 60 61 62 Respiratory Rate 16 16 Blood Pressure 122/77 H 133/86 H 130/86 H Blood Pressure Mean 92 101 100 Pulse Ox 100 100 100 Oxygen Delivery Method 03/23/25 18:39 03/23/25 20:39 03/23/25 22:00 Temperature Temperature Source Pulse Rate 65 71 59 L Respiratory Rate 16 Blood Pressure 131/68 H 133/87 H Blood Pressure Mean 89 102 Pulse Ox 100 100 100 Oxygen Delivery Method Weight Weight: 209 lb 7.026 oz Body Mass Index (BMI) 30.9 Results Lab / Micro Data 03/23/25 11:45 03/23/25 11:45 Labs: Laboratory Results - last 24 hr 03/23/25 11:45: WBC 3.4 L, RBC 3.46 L, Hgb 12.1 L, Hct 34.1 L, MCV 98.6 H, MCH 35.0 H, MCHC 35.5, RDW Std Deviation 51.7 H, RDW Coeff of Alyssa 14.6, Plt Count 141 L, MPV 9.7, Immature Gran % (Auto) 2.100 H, Neut % (Auto) 70.8 H, Lymph % (Auto) 10.0 L, Sully % (Auto) 16.5 H, Eos % (Auto) 0.3, Baso % (Auto) 0.3, Absolute Neuts (auto) 2.4, Absolute Lymphs (auto) 0.34 L, Nucleated RBC % 0, PT 13.3, INR 1.0, APTT 30.3, Sodium 139, Potassium 4.0, Chloride 107, Carbon Dioxide 22.3, Anion Gap 11, BUN 13, Creatinine 1.16, Estim Creat Clear Calc 80.88, Est GFR (MDRD) Non-Af 74, BUN/Creatinine Ratio 11.1, Glucose 101 H, Calcium 9.1, Troponin T High Sens 10 D 03/23/25 13:42: Troponin T Hi Sens 2 Hr 10 Imaging Radiology Impression Brain CT 03/23/25 11:26 IMPRESSION: 1. Postsurgical changes left temporal region. Significant interval development of vasogenic edema likely from an underlying tumor recurrence. There is midline shift of 5.4 mm. No obstructive hydrocephalus at this time. When the patient is stabilized, he may benefit from contrast-enhanced MRI. 2. No findings of definite ischemia. The findings and impression of this report were called directly to Emily Hooper 11:45 a.m. Eastern standard time. Reading Location: [id number] Head/Neck CTA 03/23/25 11:33 IMPRESSION: CTA of the brain and neck is within normal limits. Reading Location: [facility]
--- NOTE | 2025-03-23 23:38 | PCA ---
Called [facility] @[phone] to arrange transport, spoke to Marielos. She stated eta would be 0400. [facility] requested outsourcing, dispatch stated they would attempt. Called back @ 2330 to follow up, Marielos stated no luck due to outsourcing companies not having ALS capabilities or no availability whatsoever. Asked for list of transport companies attempted, dispatch stated they would call back with the list as they did not have it at this time.
[2025-03-24 00:04] VITALS: BP 129/81; PULSE 72; RESP 18; O2SAT 95
--- NOTE | 2025-03-24 00:32 | PCA ---
Attempted to outsource trip due to extremely long wait time. Attempted [facility], [facility], [facility], [facility], [facility], [facility], [facility], [facility], [facility], [facility], [facility], and [facility]- all do not have ALS availability tonight/into tomorrow. Also attempted [facility] & [facility] which do not have an ALS crew. [facility] does not have a night crew in [place]. [facility] and [facility] were both unreachable.
[2025-03-24] MEDS: Pantoprazole Sodium 40 MG in 0.9% Normal Saline (100mL MB+) 100 ML 330 MG IV (02:24)
== END 2025-03-24 03:29 | disposition short-term general hospital (02) ==
PROVIDERS: Physician Assistant; Emergency Provider Student in an Organized Health Care Education/Training Program; Referring Provider Student in an Organized Health Care Education/Training Program; Visit Provider Student in an Organized Health Care Education/Training Program
DX: G93.6 Cerebral edema (principal); C71.9 Malignant neoplasm of brain, unspecified; R29.898 Other symptoms and signs involving the musculoskeletal system; Z87.891 Personal history of nicotine dependence
CPT/HCPCS: 70450; 70496; 70498; 80048; 84484; 85025; 85610; 85730; 93005; 96365; 96367; 96375; 99285; Q9967; A4216

== ENCOUNTER 2025-05-01 11:09 | Emergency (ER) | payer OTHER, SELFPAY ==
[2025-05-01] VITALS (10 sets, daily range): BP systolic 137–167; BP diastolic 90–115; PULSE 39–80; RESP 11–16; TEMP 36.6; O2SAT 97–100; BMI 30.2
--- NOTE | 2025-05-01 11:14 | RAD_ITS ---
PROCEDURE: CHEST 1 VIEW 05/01/2025 REASON FOR EXAM: NEURO DEFICIT, ACUTE, STROKE SUSPECTED TECHNIQUE: Frontal view of the chest. COMPARISON: Prior study dated November 13, 2024. FINDINGS: Hardware: A right-sided port a catheter is seen with the tip at the junction of the superior vena cava and right atrium. EKG electrodes are seen. Heart: The heart size is normal. Lungs: The lungs are clear. Bones: The bones are unremarkable. Other: RAD/Chest 1 View IMPRESSION: No Acute Findings. Reading Location: [place] [id number]
--- NOTE | 2025-05-01 11:14 | EKG12_ITS ---
Test Reason : Blood Pressure : */* mmHG Vent. Rate : 46 BPM Atrial Rate : 46 BPM P-R Int : 154 ms QRS Dur : 88 ms QT Int : 448 ms P-R-T Axes : 3 1 7 degrees QTcB Int : 392 ms Sinus bradycardia Otherwise normal ECG Confirmed by REINIER DURAN, DIA ([id number]), online content editor KARLA PRADO ([id number]) on 05/02/2025 7:27:46 AM Referred By: Tb Confirmed By: DIA HILLS MD
--- NOTE | 2025-05-01 11:18 | CT_ITS ---
PROCEDURE: STROKE BRAIN/HEAD WITHOUT CONT 05/01/2025 REASON FOR EXAM: NEURO DEFICIT, ACUTE, STROKE SUSPECTED TECHNIQUE: Procedure Code: CTBR.ST Modality: CT Procedure: STROKE BRAIN/HEAD WITHOUT CONT Coronal and Sagittal reconstruction series were provided. One or more dose reduction techniques were used (e.g., Automated exposure control, adjustment of the mA and/or kV according to patient size, use of iterative reconstruction technique. RADIATION DOSE SUMMARY: CTDlvol: 44.99 mGy DLP: 796.11 mGycm COMPARISON: CT head March 23, 2025. FINDINGS: Brain: Encephalomalacia in the left temporal lobe, also in the left basal ganglia. No mass-effect or midline shift. No acute intracranial hemorrhage. The craniocervical junction is unremarkable. The orbits are unremarkable. CSF Spaces: Advanced generalized cerebral atrophy Sinuses/Mastoids: Clear. Bones: No acute bony abnormalities. Status post left temporal craniotomy. CT/STROKE Brain/Head without Cont IMPRESSION: No acute intracranial abnormalities. No intracranial hemorrhage or midline stacia ft. MRI brain with contrast may be performed to rule out tumor recurrence if clinic ally warranted. Reading Location: [facility]
--- NOTE | 2025-05-01 11:27 | CT_ITS ---
PROCEDURE: STROKE CTA HEAD AND NECK W/CON 05/01/2025 REASON FOR EXAM: NEURO DEFICIT, ACUTE, STROKE SUSPECTED TECHNIQUE: Procedure Code: [id number].ST.HN Modality: CT Procedure: STROKE CTA HEAD AND NECK W/CON Multiplanar Sagittal and Coronal images were obtained. CONTRAST: Isovue 370 VOLUME: 100 mL One or more dose reduction techniques were used (e.g., Automated exposure control, adjustment of the mA and/or kV according to patient size, use of iterative reconstruction technique). RADIATION DOSE SUMMARY: CTDlvol: 18.42 mGy DLP: 715.14 mGycm COMPARISON: CTA head and neck 03/23/2025. FINDINGS: Aortic Arch: Normal size and branching pattern. No significant atherosclerotic plaque. Brachiocephalic and Subclavians: Unremarkable RIGHT Carotid: Right CCA: Unremarkable. Right ICA: Unremarkable. Right ECA: Unremarkable. LEFT Carotid: Left CCA: Unremarkable. Left ICA: Unremarkable. Left ECA: Unremarkable. Vertebrals: Codominant. Arise from the subclavians. Both vertebrals form the basilar. RIGHT Vertebral: Unremarkable. LEFT Vertebral: Unremarkable. Aneurysm or avm: No intracranial aneurysms or large vascular malformations are identified. 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 Small amount of collateral within the left middle cerebral artery bed. The right cerebral arteries patent. Basilar artery: Unremarkable. Posterior cerebral arteries: Unremarkable. Other major branches of the posterior circulation: Unremarkable. Major venous structures: Unremarkable. Other findings: Neck: No lymphadenopathy. Lungs: Lung apices are clear. Bones: Bones are unremarkable. 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 Findings were discussed with Dr. Francis on 05/01/2025 11:56 a.m. Reading Location: [facility]
[2025-05-01 11:35] LABS: Hematocrit 34.0 % (40-54); Hemoglobin 11.8 g/dL (13.0-16.5); Immature Granulocytes Count 0.250 X10^3/uL (0.0-0.0); Mean Corp Hgb Conc 34.7 g/dL (32-36); Mean Corpuscular Volume 100.0 fL (80-94); Mean Platelet Vol. 10.0 fl (6.2-12.0); NRBC Flagged by Analyzer 1.3 % (0-5); POSITIVE COUNT YES; POSITIVE DIFFERENTIAL YES; Platelet Count 36 K/mm3 (150-450); RBC Distribution Width CV 15.9 % (11.6-14.6); RBC Distribution Width SD 57.2 fl (35.1-43.9); Red Blood Count 3.40 M/mm3 (4.6-6.2); White Blood Count 5.6 K/mm3 (4.4-11.0)
[2025-05-01 11:42] LABS: Differential Indicated SCAN CRITERIA MET; Prothrombin Time (Protime)PT. 12.8 SECONDS (11.7-14.9)
[2025-05-01 11:43] LABS: Partial Thromboplast Time 24.5 Seconds (24.1-36.2)
[2025-05-01 13:37] LABS: Anion Gap 12 (5-15); BUN 28 mg/dL (4-19); BUN/Creat Ratio 31.4 RATIO (10-20); Calcium,Total 8.2 mg/dL (7.6-11.0); Carbon Dioxide 20.5 mmol/L (21.0-32.0); Chloride 108 mmol/L (98-108); Estimated Creatinine Clearance 104.37 ml/min (50-250); Glucose 120 mg/dL (70-99); Potassium 3.8 mmol/L (3.3-5.1)
--- NOTE | 2025-05-01 14:13 | EX.ED.DYSGE1 ---
HPI History of Present Illness Chief Complaint: Stroke Alert [facility] Medical History Brain cancer Home Medications ?Medication ?Instructions ?Recorded ?Last Taken ?Type lacosamide 150 mg tablet 150 mg PO BID 03/23/25 Unknown History lomustine 100 mg capsule PO 03/23/25 Unknown History (Gleostine) trazodone 50 mg tablet 50 mg PO QHS 03/23/25 Unknown History valacyclovir 500 mg tablet 500 mg PO DAILY 03/23/25 Unknown History atovaquone 750 mg/5 mL oral mg PO 05/01/25 Unknown History suspension modafinil 100 mg tablet 100 mg PO BID PRN 05/01/25 Unknown History Allergy/AdvReac Type Severity Reaction Status Date / Time No Known Allergies Allergy Verified 03/23/25 11:11 Social History household members: family housing: house current occupational status: disabled Smoking Status: Former smoker EXAM Physical Exam Const Vital Signs: 05/01/25 11:10 05/01/25 11:14 05/01/25 11:20 Temperature 97.8 F Temperature Source Temporal Pulse Rate 80 80 Respiratory Rate 16 16 Blood Pressure 153/90 H 153/90 H Blood Pressure Mean 111 111 Pulse Ox 97 98 98 Oxygen Delivery Method Room Air Room Air 05/01/25 11:36 05/01/25 11:40 05/01/25 11:44 Temperature Temperature Source Pulse Rate 46 L 44 L 46 L Respiratory Rate 12 Blood Pressure 137/115 H 137/115 H 167/93 H Blood Pressure Mean 122 122 117 Pulse Ox 99 Oxygen Delivery Method Room Air 05/01/25 12:14 05/01/25 12:30 05/01/25 13:00 Temperature Temperature Source Pulse Rate 40 L 39 L 40 L Respiratory Rate 11 L 15 15 Blood Pressure 148/94 H 157/92 H 154/91 H Blood Pressure Mean 112 113 112 Pulse Ox 100 99 99 Oxygen Delivery Method Room Air Room Air Room Air 05/01/25 13:21 Temperature 97.8 F Temperature Source Pulse Rate 40 L Respiratory Rate 15 Blood Pressure 154/91 H Blood Pressure Mean 112 Pulse Ox 99 Oxygen Delivery Method MDM MDM Lab Data Labs: Laboratory Results - last 24 hr 05/01/25 11:25 WBC 5.6 RBC 3.40 L Hgb 11.8 L Hct 34.0 L MCV 100.0 H MCH 34.7 H MCHC 34.7 RDW Std Deviation 57.2 H RDW Coeff of Alyssa 15.9 H Plt Count 36 L* MPV 10.0 Immature Gran % (Auto) 4.500 H Neut % (Auto) 79.2 H Lymph % (Auto) 10.4 L [place] % (Auto) 5.4 Eos % (Auto) 0.0 Baso % (Auto) 0.5 Absolute Neuts (auto) 4.4 Absolute Lymphs (auto) 0.58 L Nucleated RBC % 1.3 Diff Path Review December foll PT 12.8 INR 0.9 APTT 24.5 Sodium 140 Potassium 3.8 Chloride 108 Carbon Dioxide 20.5 L Anion Gap 12 BUN 28 H Creatinine 0.89 Estim Creat Clear Calc 104.37 Est GFR (MDRD) Non-Af 100 BUN/Creatinine Ratio 31.4 H Glucose 120 H Calcium 8.2 Radiography Diagnostic Testing: Clinical Impression(s) from Imaging Studies Chest X-Ray 05/01/25 11:14 IMPRESSION: No Acute Findings. Reading Location: [facility]--[address] 05/01/25 11:18 IMPRESSION: No acute intracranial abnormalities. No intracranial hemorrhage or midline shift. MRI brain with contrast may be performed to rule out tumor recurrence if clinically warranted. 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 Findings were discussed with Dr. Francis on 05/01/2025 11:56 a.m. Reading Location: [facility] Discharge Plan Triage Chief Complaint: Stroke Alert ED Provider: Tito Osborn Dx/Rx/DC Orders Prescriptions: No Action trazodone 50 mg tablet 50 mg PO QHS Gleostine 100 mg capsule PO valacyclovir 500 mg tablet 500 mg PO DAILY lacosamide 150 mg tablet 150 mg PO BID atovaquone 750 mg/5 mL suspension PO modafinil 100 mg tablet 100 mg PO BID PRN Primary Care Provider: Care Physician,No Primary Referrals: Care Physician,No Primary [Primary Care Provider, Medical] Print Language: Arabic Disposition Disposition: Acute Care Hospital Discharge Location: [facility] Discharge Date/Time: 05/01/25 13:10
[2025-05-01 14:20] LABS: Troponin T High Sensitivity 11 ng/L (<=22)
--- NOTE | 2025-05-01 15:11 | EDS_ITS ---
HPI History of Present Illness Chief Complaint: Stroke Alert Narrative Narrative: Chief complaint and HPI: 54-year-old male with history of brain cancer presents for evaluation as a stroke alert. Patient arrives via EMS. History taken by patient as well as mother. Mother states patient's last known normal was 7 PM while eating dinner. She noticed that the patient had right-sided facial droop with right-sided weakness. Patient noticed this as well and states it has progressively worsened this morning. He has expressive aphasia, mother as well as patient states that this is baseline however it is significantly worse than his baseline. His mother lives with him. He thinks his cancer is glioblastoma and is on chemotherapy. He has had surgeries at [facility]. He is not on blood thinners. Review of systems: See HPI Medications: As listed on the chart Allergies: As listed on the chart PFSH: Per chart Vital signs: As listed on the chart. Reviewed. Physical exam: Gen: Alert, oriented to self Head: Normocephalic, atraumatic Eyes: No sclera icterus, conjunctiva clear, PERRL, EOMI, no visual field deficits ENT: Moist mucous membranes, right-sided facial droop Neck: Trachea midline, No JVD CV: RRR, no murmurs, no peripheral edema Resp: Lungs CTA BL, no w/r/c GI: Abd soft, non-distended, non-tender, no r/r/g Musc: No deformity. Weak in the right upper and lower leg compared to the left. He has some effort against gravity. Unable to assess ataxia on the right secondary to weakness. No ataxia in the left upper or lower extremity. Skin: Warm, dry Neuro: Alert, expressive aphasia, dysarthria, sensation intact, [facility] Medical History Brain cancer Home Medications ?Medication ?Instructions ?Recorded ?Last Taken ?Type lacosamide 150 mg tablet 150 mg PO BID 03/23/25 Unkno wn History lomustine 100 mg capsule PO 03/23/25 Unknown History (Gleostine) trazodone 50 mg tablet 50 mg PO QHS 03/23/25 Unknow n History valacyclovir 500 mg tablet 500 mg PO DAILY 03/23/25 Un known History atovaquone 750 mg/5 mL oral mg PO 05/01/25 Unknown His tory suspension modafinil 100 mg tablet 100 mg PO BID PRN 05/01/25 U nknown History Allergy/AdvReac Type Severity Reaction Status Date / Time No Known Allergies Allergy Verified 03/23/25 11:11 Social History household members: family housing: house current occupational status: disabled Smoking Status: Former smoker EXAM Physical Exam Const Vital Signs: 05/01/25 11:10 05/01/25 11:14 05/01/25 11:20 Temperature 97.8 F Temperature Source Temporal Pulse Rate 80 80 Respiratory Rate 16 16 Blood Pressure 153/90 H 153/90 H Blood Pressure Mean 111 111 Pulse Ox 97 98 98 Oxygen Delivery Method Room Air Room Air 05/01/25 11:36 05/01/25 11:40 05/01/25 11:44 Temperature Temperature Source Pulse Rate 46 L 44 L 46 L Respiratory Rate 12 Blood Pressure 137/115 H 137/115 H 167/93 H Blood Pressure Mean 122 122 117 Pulse Ox 99 Oxygen Delivery Method Room Air 05/01/25 12:14 05/01/25 12:30 05/01/25 13:00 Temperature Temperature Source Pulse Rate 40 L 39 L 40 L Respiratory Rate 11 L 15 15 Blood Pressure 148/94 H 157/92 H 154/91 H Blood Pressure Mean 112 113 112 Pulse Ox 100 99 99 Oxygen Delivery Method Room Air Room Air Room Air 05/01/25 13:21 Temperature 97.8 F Temperature Source Pulse Rate 40 L Respiratory Rate 15 Blood Pressure 154/91 H Blood Pressure Mean 112 Pulse Ox 99 Oxygen Delivery Method MDM MDM MDM Narrative Medical decision making narrative: 54-year-old male with history of brain cancer presents for evaluation as a stroke alert. Patient arrives via EMS. History taken by patient as well as mother. Mother states patient's last known normal was 7 PM while eating dinner. She noticed that the patient had right-sided facial droop with right-sided weakness. Patient noticed this as well and states it has progressively worsened this morning. He has expressive aphasia, mother as well as patient states that this is baseline however it is significantly worse than his baseline. His mother lives with him. He thinks his cancer is glioblastoma and is on chemotherapy. He has had surgeries at [facility]. He is not on blood thinners. Patient was made a stroke alert prior to arrival to the emergency department. He is outside the stroke window given his last known normal was 7 PM however he is inside the LVO window. Patient not a tPA candidate. Patient was taken immediately to imaging. CT head shows no acute intracranial abnormality. No intracranial hemorrhage or midline shift. He has encephalomalacia in the left temporal lobe, also left basal ganglia. Patient was evaluated by teleneurology at [facility]. Recommended transfer to [facility] and MRI brain. After speaking to teleneurology, I received a phone call from radiology. 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 This is new from CTA in March. Given this update, teleneurology at [facility] was reconsulted. I spoke again with Dr. Hodge. Plan is for patient to fly to [facility] for thrombectomy. We did contact [facility] as well as [facility] and nobody is able to fly to [facility] given the weather. Given this information, I reconsulted with Dr. Hodge. He recommends trying [facility] given patient can be flown there but if unable or not accepted will accepted to [facility] via ground transport. He was made aware that the patient's platelets are 36. [facility] Was contacted and patient was discussed. They accepted transfer. Patient will be flown. Patient and mother were updated of all the results and confirmed understanding of the plan. CBC without leukocytosis. Patient has baseline anemia of 11.8. New thrombocytopenia of 36. Coagulation panel unremarkable. BMP relatively unremarkable. Troponin unremarkable. Chest x-ray was personally reviewed and interpreted by ak, ED physician. No pneumonia, effusion, cardiomegaly, pneumothorax. Patient does have a right sided port. Radiology in agreement. Patient was transferred. 45 minutes of critical care time utilized in managing the patient. This is due to high probability of and deterioration of the patient based on the patient's condition and excludes any separately billable procedures. Impression: 1. 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 History of glioblastoma status postsurgery 3. Thrombocytopenia 4. Chronic anemia Lab Data Labs: Laboratory Results - last 24 hr 05/01/25 11:25 WBC 5.6 RBC 3.40 L Hgb 11.8 L Hct 34.0 L MCV 100.0 H MCH 34.7 H MCHC 34.7 RDW Std Deviation 57.2 H RDW Coeff of Alyssa 15.9 H Plt Count 36 L* MPV 10.0 Immature Gran % (Auto) 4.500 H Neut % (Auto) 79.2 H Lymph % (Auto) 10.4 L [place] % (Auto) 5.4 Eos % (Auto) 0.0 Baso % (Auto) 0.5 Absolute Neuts (auto) 4.4 Absolute Lymphs (auto) 0.58 L Nucleated RBC % 1.3 Diff Path Review December foll PT 12.8 INR 0.9 APTT 24.5 Sodium 140 Potassium 3.8 Chloride 108 Carbon Dioxide 20.5 L Anion Gap 12 BUN 28 H Creatinine 0.89 Estim Creat Clear Calc 104.37 Est GFR (MDRD) Non-Af 100 BUN/Creatinine Ratio 31.4 H Glucose 120 H Calcium 8.2 Troponin T High Sens 11 D Radiography Diagnostic Testing: Clinical Impression(s) from Imaging Studies Chest X-Ray 05/01/25 11:14 IMPRESSION: No Acute Findings. Reading Location: [facility]-[address] 05/01/25 11:18 IMPRESSION: No acute intracranial abnormalities. No intracranial hemorrhage or midline shift. MRI brain with contrast may be performed to rule out tumor recurrence if clinically warranted. Reading Location: [facility] Head/Neck CTA 05/01/25 11:27 IMPRESSION: Cut off/occlusion of the distal M1 segment of the left middle cerebral artery. Findings were discussed with Dr. Francis on 05/01/2025 11:56 a.m. Reading Location: [facility] Discharge Plan Triage Chief Complaint: Stroke Alert ED Provider: Tito Osborn Dx/Rx/DC Orders Prescriptions: No Action trazodone 50 mg tablet 50 mg PO QHS Gleostine 100 mg capsule PO valacyclovir 500 mg tablet 500 mg PO DAILY lacosamide 150 mg tablet 150 mg PO BID atovaquone 750 mg/5 mL suspension PO modafinil 100 mg tablet 100 mg PO BID PRN Primary Care Provider: Care Physician,No Primary Referrals: Care Physician,No Primary [Primary Care Provider, Medical] Print Language: Zambian Disposition Disposition: Acute Care Hospital Discharge Location: [facility] Discharge Date/Time: 05/01/25 13:10 NIHSS NIHSS 1a. Level of Consciousness: 0 - Alert; keenly responsive 1b. LOC Questions: 1 - Answers ONE question correctly 1c. LOC Commands: 0 - Performs BOTH tasks correctly 2. Best Gaze: 0 - Normal 3. Visual: 0 - No visual loss 4. Facial Palsy: 1 - Minor paralysis (flattened nasolabial fold, asymmetry on smiling) 5a. Left Arm: 0 - No drift; arm holds 90 (or 45) degrees for full 10 seconds 5b. Right Arm: 2 - Some effort against gravity; 6a. Left Le - No drift; leg holds 30-degree position for full 5 seconds 6b. Right Le - Some effort against gravity; 7. Limb Ataxia: 2 - Present in 2 limbs 8. Sensory: 0 - Normal; no sensory loss 9. Best Language: 2 - Severe aphasia; 10. Dysarthria: 1 = [id number] dysarthria; 11. Extinction and Inattention: 0 - No abnormality Total: 11 Stroke Questions Stroke Team Activated: Yes Reviewed Inclusion/Exclusion criteria: Yes IV Thrombolytic Administered: No
--- NOTE | 2025-05-01 15:50 | CM.ED ---
Social Work Reason for visit: Stroke Alert SW met with patients mother while patient was in testing. 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 Patients mother lives with patient and helps take care of him. Mother states understanding of patients prognosis. Emotional support provided. Mother thankful for visit. No further needs identified at this time. Zenia Newberry, [employer], PHOTOGRAPHIC [employer]ORATORY SUPERVISOR
== END 2025-05-01 13:10 | disposition short-term general hospital (02) ==
PROVIDERS: Emergency Provider Surgery; Visit Provider Surgery
DX: I66.02 Occlusion and stenosis of left middle cerebral artery (principal); C71.9 Malignant neoplasm of brain, unspecified; D64.9 Anemia, unspecified; D69.6 Thrombocytopenia, unspecified; Z87.891 Personal history of nicotine dependence; Z79.899 Other long term (current) drug therapy
CPT/HCPCS: 36591; 70450; 70496; 70498; 71045; 80048; 84484; 85025; 85610; 85730; 93005; 99285; Q9967; A4216

== ENCOUNTER 2025-05-06 16:14 | Inpatient (IN) | payer OTHER, SELFPAY ==
--- OUTSIDE RECORDS SUMMARY | 2025-05-01 13:38 | XMS RPT_ITS ---
Author Name Auto Generated Organization OHIP Care Team Providers Care Chargemaster Analyst Name Role Phone PATRICIA ENRIQUEZ Attending Unavaila ble FRAIRE-PUGA, PATRICIA Referring Unavaila ble FRAIRE-PUGA, PATRICIA Attending Unavaila ble FRAIRE-PUGA, PATRICIA Referring Unavaila ble FRAIRE-PUGA, PATRICIA Referring Unavaila ble FRAIRE-PUGA, PATRICIA Attending Unavaila ble FRAIRE-PUGA, PATRICIA Referring Unavaila ble CYNDEE JOYCE Attending Unavailable CYNDEE JOYCE Referring Unavailable KODY WARD Attending Unavailable NATHAN, JOSE Referring Unavailable KODY WARD Attending Unavailable NATHAN, JOSE Referring Unavailable FRAIRE-PUGA, PATRICIA Referring Unavaila ble FRAIRE-PUGA, PATRICIA Attending Unavaila ble KODY WARD Attending Unavailable NATHAN, JOSE Referring Unavailable NATHAN, JOSE Admitting Unavailable NATHAN, JOSE Attending Unavailable NATHAN, JOSE Referring Unavailable NATHAN, JOSE Admitting Unavailable NATHAN, JOSE Attending Unavailable FRAIRE-PUGA, PATRICIA Attending Unavaila ble FRAIRE-PUGA, PATRICIA Referring Unavaila ble FRAIRE-PUGA, PATRICIA Referring Unavaila ble BENJY TEAGUE Attending Unavailable NATHAN, JOSE Referring Unavailable NATHAN, JOSE Referring Unavailable NATHAN, JOSE Admitting Unavailable NATHAN, JOSE Attending Unavailable DANUTA GUADARRAMA Attending Unavailable SELF Referring Unavailable SRINIVASAN ZHAO Admitting Unavailable FRAIRE-PUGA, PATRICIA Referring Unavaila ble FRAIRE-PUGA, PATRICIA Referring Unavaila ble JOSE EVANS Attending Unavailable FRAIRE-PUGA, PATRICIA Referring Unavaila ble FRAIRE-PUGA, PATRICIA Referring Unavaila ble FRAIRE-PUGA, PATRICIA Referring Unavaila ble JOSE EVANS Admitting Unavailable JOSE EVANS Attending Unavailable JOSE EVANS Referring Unavailable FRAIRE-PUGA, PATRICIA Attending Unavaila ble FRAIRE-PUGA, PATRICIA Referring Unavaila ble FRAIRE-PUGA, PATRICIA Referring Unavaila ble FRAIRE-PUGA, PATRICIA Referring Unavaila ble FRAIRE-PUGA, PATRICIA Referring Unavaila ble JOSE EVANS Referring Unavailable NATHANJOSE CERVANTES Referring Unavailable FRAIRE-PUGA, PATRICIA Referring Unavaila ble FRAIRE-PUGA, PATRICIA Referring Unavaila ble FRAIRE-PUGA, PATRICIA Referring Unavaila ble FRAIRE-PUGA, PATRICIA Referring Unavaila ble FRAIRE-PUGA, PATRICIA Attending Unavaila ble FRAIRE-PUGA, PATRICIA Referring Unavaila ble FRAIRE-PUGA, PATRICIA Referring Unavaila ble FRAIRE-PUGA, PATRICIA Referring Unavaila ble FRAIRE-PUGA, PATRICIA Referring Unavaila ble FRAIRE-PUGA, PATRICIA Referring Unavaila ble CHRIST SALVADOR Attending Unavailable FRAIRE-PUGA, PATRICIA Referring Unavaila ble FRAIRE-PUGA, PATRICIA Referring Unavaila ble FRAIRE-PUGA, PATRICIA Referring Unavaila ble FRAIRE-PUGA, PATRICIA Attending Unavaila ble FRAIRE-PUGA, PATRICIA Referring Unavaila ble FRAIRE-PUGA, PATRICIA Referring Unavaila ble FRAIRE-PUGA, PATRICIA Referring Unavaila ble FRAIRE-PUGA, PATRICIA Referring Unavaila ble FRAIRE-PUGA, PATRICIA Referring Unavaila ble JOSE EVANS Referring Unavailable JOSE EVANS Referring Unavailable FRAIRE-PUGA, PATRICIA Referring Unavaila ble FRAIRE-PUGA, PATRICIA Referring Unavaila ble FRAIRE-PUGA, PATRICIA Referring Unavaila ble FRAIRE-PUGA, PATRICIA Referring Unavaila ble FRAIRE-PUGA, PATRICIA Referring Unavaila ble FRAIRE-PUGA, PATRICIA Referring Unavaila ble FRAIRE-PUGA, PATRICIA Referring Unavaila ble FRAIRE-PUGA, PATRICIA Attending Unavaila ble FRAIRE-PUGA, PATRICIA Referring Unavaila ble JOSE EVANS Attending Unavailable FRAIRE-PUGA, PATRICIA Attending Unavaila ble FRAIRE-PUGA, PATRICIA Referring Unavaila ble FRAIRE-PUGA, PATRICIA Referring Unavaila ble FRAIRE-PUGA, PATRICIA Referring Unavaila ble FRAIRE-PUGA, PATRICIA Referring Unavaila ble FRAIRE-PUGA, PATRICIA Referring Unavaila ble FRAIRE-PUGA, PATRICIA Referring Unavaila ble FRAIRE-PUGA, PATRICIA Referring Unavaila ble FRAIRE-PUGA, PATRICIA Attending Unavaila ble FRAIRE-PUGA, PATRICIA Referring Unavaila ble FRAIRE-PUGA, PATRICIA Referring Unavaila ble FRAIRE-PUGA, PATRICIA Referring Unavaila ble JOSE EVANS Referring Unavailable FRAIRE-PUGA, PATRICIA Referring Unavaila ble JOSE EVANS Referring Unavailable FRAIRE-PUGA, PATRICIA Attending Unavaila ble FRAIRE-PUGA, PATRICIA Referring Unavaila ble FRAIRE-PUGA, PATRICIA Attending Unavaila ble FRAIRE-PUGA, PATRICIA Referring Unavaila ble FRAIRE-PUGA, PATRICIA Referring Unavaila ble FRAIRE-PUGA, PATRICIA Referring Unavaila ble FRAIRE-PUGA, PATRICIA Referring Unavaila ble FRAIRE-PUGA, PATRICIA Referring Unavaila ble FRAIRE-PUGA, PATRICIA Referring Unavaila ble FRAIRE-PUGA, PATRICIA Attending Unavaila ble FRAIRE-PUGA, PATRICIA Referring Unavaila ble FRAIRE-PUGA, PATRICIA Referring Unavaila ble JOSE EVANS Admitting Unavailable NATHAN, JOSE Attending Unavailable NATHAN, JOSE Referring Unavailable NATHAN, JOSE Admitting Unavailable NATHAN, JOSE Attending Unavailable NATHAN, JOSE Admitting Unavailable NATHAN, JOSE Attending Unavailable NATHAN, JOSE Admitting Unavailable NATHAN, JOSE Attending Unavailable NATHAN, JOSE Referring Unavailable FRAIRE-PUGA, PATRICIA Referring Unavaila ble FRAIRE-PUGA, PATRICIA Attending Unavaila ble FRAIRE-PUGA, PARTICIA Referring Unavaila ble FRAIRE-PUGA, PATRICIA Referring Unavaila ble MULU PIZARRO Attending Unavailable FRAIRE-PUGA, PATRICIA A Consulting ALLIE Willams Admitting Unavailable AMBREEN GOODWIN Referring Unavailable KLUSTYAMBREEN MAK Referring Unavaila ble PROBLEMS DATE TYPE CONDITION / CODE ATTENDING STATUS [facility] 05/03/2025 Active Sinus bradycardi a / R00.1(ICD-10) MULU PIZARRO Active [facility] 05/01/2025 Active Arterial ischemi c stroke, MCA (middle cerebral artery), left, acute (HCC) / I63.512(ICD-10) MULU PIZARRO Active [facility] 05/01/2025 Active Acute ischemic l eft MCA stroke (HCC) / I63.512(ICD-10) MULU PIZARRO Active [facility] 05/01/2025 Admitting diagnosis Stroke / UNK(Unknown) NA Active [facility] 10/13/2024 Active Thrombocytopenia / D69.6(ICD-10) NA Active [facility] 05/27/2024 Active GBM (glioblastom a multiforme) (HCC) / C71.9(ICD-10) NA Active [facility] 04/05/2025 Active Encounter for chemotherapy management / Z51.11(ICD-10) NA Active [facility] 04/05/2025 Active Encounter for antineoplastic immunotherapy / Z51.12(ICD-10) NA Active [facility] 03/28/2025 Active Glioblastoma (HC C) / C71.9(ICD-10) JUNO-PATRICIA PUGA Active [facility] 04/03/2025 Active Seizures (HCC) / R56.9(ICD-10) PATRICIA ENRIQUEZ Active [facility] 03/24/2025 Active Nausea and vomit ing, unspecified vomiting type / R11.2(ICD-10) DANUTA GUADARRAMA Active [facility] 03/24/2025 Active High grade gliom a not classifiable by WHO criteria (HCC) / C71.9(ICD-10) DANUTA GUADARRAMA Active [facility] 03/24/2025 Active Chemotherapy-ind uced nausea / R11.0(ICD-10) DANUTA GUADARRAMA Active [facility] 03/24/2025 Active Chemotherapy-ind uced nausea / T45.1X5A(ICD-10) DANUTA GUADARRAMA Active [facility] 03/24/2025 Active At risk of seizu res / Z91.89(ICD-10) DANUTA GUADARRAMA Active [facility] 03/24/2025 Active Other fatigue / R53.83(ICD-10) DANUTA GUADARRAMA Active [facility] 03/24/2025 Active Insomnia, unspec ified type / G47.00(ICD-10) DANUTA GUADARRAMA Active [facility] 03/24/2025 Active Prophylaxis for chemotherapy-induced neutropenia / Z76.89(ICD-10) DANUTA GUADARRAMA Active [facility] 03/24/2025 Active Herpes zoster wi th complication / B02.8(ICD-10) DANUTA GUADARRAMA Active [facility] 02/08/2025 Active Viral illness / B34.9(ICD-10) BENJY TEAGUE Active [facility] 12/01/2024 Active Established Miley ent / UNK(Unknown) PATRICIA ENRIQUEZ Active [facility] 11/01/2024 Active Thrombocytosis / D75.839(ICD-10) PATRICIA ENRIQUEZ Active [facility] 05/26/2024 Active Brain tumor (HCC ) / D49.6(ICD-10) NA Active [facility] 05/26/2024 Active PONV (postoperat araceli nausea and vomiting) / R11.2(ICD-10) NA Active [facility] 05/26/2024 Active PONV (postoperat araceli nausea and vomiting) / Z98.890(ICD-10) NA Active [facility] 03/20/2023 Active Obesity, Class I , BMI 30-34.9 / E66.811(ICD-10) NA Active [facility] 05/26/2024 Active Pre-op evaluatio n / Z01.818(ICD-10) NA Active [facility] PROCEDURES No Procedure Records Found RESULTS CNDS Observed: 05/06/2025 1:08 PM Status: COMPLETED Source: [facility] HNO ID: [id number] Author: MULU PIZARRO DO Service: Hospital Medicine Author Type: Physician Type: Discharge Summary Filed: 05/06/2025 13:09 Note Text: DISCHARGE SUMMARY PATIENT NAME: Angel Keating Code Status: DNR-CCA, DNI Highest Readmission Risk Score: 20 The 30 day readmissions risk score is derived from an internally validated risk model which evaluates patient level characteristics, utilization history, medication orders and lab results up until the day of discharge. Patients with a score of 39 or above are considered highest risk for readmission. Specific patient level drivers will be listed at the bottom of the summary. Admission Information Admission Information ADMIT DATE: 05/01/2025 DISCHARGE DATE: 05/06/25 MY DOCTORS AND MEDICAL TEAM: My Main Hospital Doctor: Mulu Pizarro DO Primary Care Provider: No primary care provider on file. My Medical Team Members: Treatment Team: Attending Provider: Mulu Pizarro DO Consulting: Nima Suárez MD Consulting: Hamida Santamaria MD Consulting: Ross Maxwell MD Primary Service: YASMIN ROCHA MY CONDITION AT DISCHARGE: Stable REASON I WAS IN THE HOSPITAL: acute CVA SUMMARY OF WHAT HAPPENED WHILE I WAS IN THE HOSPITAL: Patient is a 54-year-old male history of GBM status post resection/chemotherapy, thrombocytopenia, seizures, anxiety who presented with right-sided weakness and aphasia, initial NIH was [address] with left M1 occlusion but outside of the window for tPA. Admitted to [facility] For emergent EVT and admitted to neuro ICU. Was given platelet transfusion. Vimpat was switched to Keppra due to bradycardia and he was seen by cardiology without indication for pacemaker. Seen by PT/OT and discharged to SNF in stable condition. Follow-up with neuro oncology as scheduled on 05/11 as well as neurology. OTHER PROBLEMS/DIAGNOSIS: Principal Problem: Arterial ischemic stroke, MCA (middle cerebral artery), left, acute (HCC) Active Problems: Class 1 obesity without serious comorbidity with body mass index (BMI) of 30.0 to 30.9 in adult At risk for seizures Cerebral edema (HCC) GBM (glioblastoma multiforme) (HCC) Thrombocytopenia Hemiparesis of right dominant side (HCC) Aphasia due to acute cerebrovascular accident (CVA) (HCC) Bradycardia Metabolic acidosis Hemiparesis due to acute cerebrovascular disease (HCC) Dysarthria due to acute stroke (HCC) History of seizure Cytotoxic cerebral edema (HCC) At risk for altered cerebral tissue perfusion due to history of stroke DNR (do not resuscitate) DNI (do not intubate) Hyperglycemia, drug-induced Obesity, Class I, BMI 30-34.9 Sinus bradycardia Mild left ventricular systolic dysfunction (LVSD) Resolved Problems: * No resolved hospital problems. * OPERATIONS PERFORMED WHILE IN THE HOSPITAL: EVT IMPORTANT TEST/PROCEDURES: Echocardiogram TEST RESULTS NOT AVAILABLE AT THIS TIME: No pending results Discharge Disposition Discharge Disposition: Detention Facility - Greater than 30 Days Activity When You Leave the Hospital Resume pre-hospital activity Diet Instructions Resume your pre-hospital diet Call Your Doctor If You have a severe headache You have lightheadedness, fainting, or confusion You have persistent nausea/vomiting over 24 hours You have persistent or heavy bleeding You have swollen glands or cold and clammy skin Your temperature is greater than 101F Follow Up Appointments Follow-up Appointment When: In 1 week Patricia Enriquez MD [phone] [place] [facility] [address] PCP Requested Referral Treatment Team: Attending Provider: Mulu Pizarro DO Consulting: Nima Suárez MD Consulting: Hamida Santamaria MD Consulting: Ross Maxwell MD Primary Service: YASMIN ROCHA Consulting: (Internal), Internal Provider (Inactive) Consulting: Patricia Enriquez MD Active Hospital Problems Diagnosis POA Arterial ischemic stroke, MCA (middle cerebral artery), left, acute (HCC) Yes Mild left ventricular systolic dysfunction (LVSD) Unknown Obesity, Class I, BMI 30-34.9 Yes Sinus bradycardia Yes Cytotoxic cerebral edema (HCC) Yes At risk for altered cerebral tissue perfusion due to history of stroke Yes DNR (do not resuscitate) Yes DNI (do not intubate) Yes Hyperglycemia, drug-induced Yes Hemiparesis of right dominant side (HCC) Yes Aphasia due to acute cerebrovascular accident (CVA) (HCC) Yes Bradycardia Yes Metabolic acidosis Yes Hemiparesis due to acute cerebrovascular disease (HCC) Yes Dysarthria due to acute stroke (HCC) Yes History of seizure Yes Thrombocytopenia Yes GBM (glioblastoma multiforme) (HCC) Yes At risk for seizures Yes Cerebral edema (HCC) Yes Class 1 obesity without serious comorbidity with body mass index (BMI) of 30.0 to 30.9 in adult Yes Resolved Hospital Problems No resolved problems to display. FOLLOW-UP APPOINTMENTS ALREADY SCHEDULED WITH A [facility] PROVIDER: Future Appointments Date Time Provider Department Center 05/11/2025 2:00 PM Patricia Enriquez MD [facility] Main [place] Bldg 05/18/2025 10:30 AM TREATMENT RM 8 [facility] HEMAWS Ronald Nguyen 06/19/2025 11:00 AM MRI [facility] (I-STAT/1.5T) RMRIWS Ronald Nguyen 06/21/2025 9:30 AM Patricia Enriquez MD [facility] Main [place] Bldg ALLERGIES No Known Allergies DISCHARGE MEDICATION: Medication List START taking these medications aspirin 81 mg chewable tablet 1 tablet by ORAL/FEEDING TUBE route once daily. Start taking on: May 07, 2025 atorvastatin 40 mg tablet Commonly known as: LIPITOR 1 tablet by ORAL/FEEDING TUBE route daily at bedtime. levETIRAcetam 1,000 mg tablet Commonly known as: KEPPRA 1 tablet by ORAL/FEEDING TUBE route two times a day. losartan 25 mg tablet Commonly known as: COZAAR Take 0.5 tablets by mouth once daily. Start taking on: May 07, 2025 CHANGE how you take these medications dexAMETHasone 2 mg tablet Commonly known as: DECADRON 5 tablets by ORAL/FEEDING TUBE route once daily. Start taking on: May 07, 2025 What changed: medication strength how much to take how to take this when to take this Another medication with the same name was removed. Continue taking this medication, and follow the directions you see here. CONTINUE taking these medications acetaminophen 325 mg tablet Commonly known as: TYLENOL 2 tablets by ORAL/FEEDING TUBE route every 4 hours as needed for pain. atovaquone 750 mg/5 mL oral liquid Commonly known as: MEPRON Take 10 mL by mouth daily with breakfast. Miscellaneous Medical Supply Kit Outpatient physical therapy modafinil 100 mg tablet Commonly known as: PROVIGIL Take 1 tablet in the morning. If needed take another tablet at 2 pm valACYclovir 500 mg tablet Commonly known as: VALTREX Take 1 tablet by mouth once daily. STOP taking these medications lacosamide 150 mg Tab Commonly known as: VIMPAT General - NAD, Calm CV - RRR S1 S2 RESP - CTA B/L ABD - soft, NT, ND +BS EXT - no edema NEURO - nl speech, moving all extremities The patient's risk for 30-day readmission is determined using the following contributing factors: Predictive Model Details 19% (Moderate) Factor Value Calculated 05/06/2025 05:20 -19% Admission Provider Speciality NEUROLOGY [facility] READMISSION RISK Model 11% Appointments (365d) 29 9% Admissions (60d) 2 -8% ED visits (365d) 0 7% Admissions (90d) 2 6% Admissions (365d) 3 -6% Sodium (Avg) 139.75 5% Malnutrition 1 5% diagnosis count 23 -5% ED Encounter 0 Plan of care discussed with Provider, RN, Patient I personally spent 35 minutes involved in the discharge management of this patient. SIGNATURE: Mulu Pizarro DO DATE: May 06, 2025 TIME: 1:08 PM CASE MANAGEM Observed: 05/06/2025 10:15 AM Status: COMPLETED Source: [facility] HNO ID: [id number] Author: MITCHELL RAWLS LSW Service: Care Management Author Type: Pull Worker Type: Care Mgt Progress Note Filed: 05/06/2025 10:29 Note Text: CARE MANAGEMENT DISCHARGE NOTE SERVICE DATE: May 06, 2025 SERVICE TIME: 10:15 AM Admission Date: 05/01/2025 LOS: 5 days Discharge Arrangement Discharge Arrangement: Detention Facility Services Arranged SNF Provider Name: Dr. 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 RN/MD aware. N2N number [phone]. Cot packet on pts chart. SW called [facility], is aware of dc time today. No other dc needs at this time. SIGNATURE: JULIO Rasmussen PATIENT NAME: Angel Keating DATE: May 06, 2025 TIME: 10:15 AM Ext [id number] CBC PNL BLD AUTO Collected: 05/06/2025 4:33 AM Statu s: F Source: [facility] Order Comment: Specimen Type : BLOOD SPECIMEN Ordering Facility: [facility] Address: [address] [place] [address] TYPE CODE TESTS RESULT OUT OF RANGE REFERENCE UNITS LAB 6690-2(LOINC) WBC # Bld Auto 5.30 3.70-11.00 k/uL LAB 789-8(LOINC) RBC # Bld Auto 3.45 Low 4.20-6.00 m/ uL LAB 718-7(LOINC) Hgb Bld-mCnc 12.1 Low 13.0-17.0 g/dL LAB 4544-3(LOINC) Hct VFr Bld Auto 34.0 Low 39.0-51.0 % LAB 787-2(LOINC) MCV RBC Auto 98.6 80.0-100.0 fL LAB 785-6(LOINC) MCH RBC Qn Auto 35.1 High 26.0-34.0 pg LAB 786-4(LOINC) MCHC RBC Auto-mCnc 35.6 30.5-36.0 g/dL LAB 71719-5(LOINC) RDW RBC-Rto 16.0 High 11.5-15.0 % LAB 777-3(LOINC) Platelet # Bld Auto 76 Low 150-400 k/uL Result Comment: No clot dete cted. LAB 03476-8(LOINC) PMV Bld Auto 10.5 9.0-12.7 fL LAB 771-6(LOINC) nRBC # Bld Auto 0.02 High <0.01 k/uL Performed By: #### [id number] # ### [facility] CLIA [id number] [address] CASE MANAGEM Observed: 05/05/2025 8:31 PM Status: COMPLETED Source: [facility] HNO ID: [id number] Author: EFREM CAPONE RN Service: Care Management Author Type: Registered Nurse Type: Care Mgt Progress Note Filed: 05/05/2025 20:37 Note Text: CARE MANAGEMENT PROGRESS NOTE SERVICE DATE: 05/05/2025 SERVICE TIME: 8:31 PM LOS: 4 days Needs Prior to Discharge: Discharge Transportation Auth was approved for [facility]. CM placed discharge packet on chart. Will need discharge transport set up tomorrow. Nurse to Nurse is [phone] SIGNATURE: Efrem Capone RN PATIENT NAME: Angel Keating DATE: May 05, 2025 TIME: 8:31 PM THERAPY NT Observed: 05/05/2025 3:26 PM Status: COMPLETED Source: [facility] HNO ID: [id number] Author: CATINA CHIN, OTR/L Service: Occupational Therapy Author Type: Occupational Therapist Type: Therapy (PT/OT/Speech/Resp) Filed: 05/05/2025 15:32 Note Text: Occupational Therapy Treatment Summary SERVICE DATE: 05/05/2025 SERVICE TIME: 1435 to 1459 ROOM: [id number] OT 6 Clicks Score: 13 DISCHARGE RECOMMENDATIONS Acute Rehab Recommended Discharge Disposition Due to: Patient requires active, intensive rehabilitation by multiple therapy disciplines. Anticipate the patient will tolerate 3 hours of therapy per day., ADL impairment, Anticipated community discharge, Cognitive deficits new/worsened, Requires multiple therapy disciplines, Weakness less than 3/5 in upper extremity, Functional status decline ASSESSMENT Response to Therapy Interventions: Good Participation in Activities, Improved Tolerance for Activity, Requires Additional Time to Complete Activities Patient participated well in therapy session and making good progress towards goals. Patient continues to remain flaccid on the R arm and R leg. Today, patient was able to complete dynamic sitting balance activites and stand twice with significant assistance. He also continues to have difficulty expressing self. Further OT services is warranted. All goals on-going. PRECAUTIONS Bed/Chair Alarm, Fall Risk, Lines/Tubes/Drains, Aspiration Diet nectar thick, soft/bite sized ;Low heart rate; IV, ICU monitoring, external catheter CURRENT HOSPITAL COURSE patient presents to the hospital due to R sided weaknes, aphasia. S/p EVT on 05/01/25. 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 Relevant Past Medical History: glioblastoma and chronic expressive aphasia, gross total resection(03/19/2023 and 05/27/2024 and chemotherapy), thrombocytopenia, seizures(vimpat), and anxiety HOME LIVING Patient Lives With: Family Assistance Available: 24-Hour Entry To Home: Stairs, With Rail Number Of Stairs Into Home: 7 Number Of Stairs To Bed/Bath: 0 Tub/Shower Type: WIS with GB, SC, HHS Laundry: Family assists Equipment Owned: Grab Bars- Shower, Hand Held Shower, Long Handled Sponge, Walker- Wheeled, Elevated Toilet Seat PRIOR FUNCTIONAL LEVEL Within Functional Limits Patient PLOF taken from March 2025 ~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 (-) falls Upon questioning pt this session, pt conveys that he is indep with mobility with a quad cane, requires some assist to bathe and does not drive. Will confirm with family. Baseline Cognition: Oriented to self, Oriented to place, Oriented to time, Oriented to situation SUBJECTIVE agreeable to session COGNITION Communication Deficits: Receptive Deficits, Expressive Deficits Orientation Deficits: (oriented to self, unable to state month; assessment limited by aphasia) Responsiveness: Alert Follows Commands: 1-step Commands, Cueing Needed Cueing to Follow Commands: Minimum Attention Deficits: (mildly impulsive) Executive Function Deficits: Judgement, Insight to Deficits, Problem Solving, Safety Awareness THERAPY DIAGNOSIS Reduced mobility-other, Decreased activities of daily living (ADL), Muscle Weakness (generalized), Unsteadiness on feet, Signs and Symptoms Involving Cognitive Functions and Awareness, General symptoms and signs-other TREATMENT INTERVENTIONS Neuromuscular Reeducation (72627) Timed Code Treatment (minutes): 24 Skilled Treatment Time (minutes): 24 Neuromuscular Reeducation (38046) Treatment Minutes: 24 $ Neuromuscular Reeducation (20636) Billed Units: 2 units Min verbal direction to bring the left lower extremity off the side of bed, he required increased assist to move the right leg. Min direction to engage core in order to sit upright. Required increased assist and increased time to achieve good sitting balance. Challenged patient to complete weight shifts left and right while right upper extremity was placed in weightbearing to maximize proprioceptive input. Min direction for good posture and body mechanics throughout. While sitting at edge of bed, facilitated handling techniques to complete scapular mobilization, as it appears the patient has a 1 finger subluxation with humeral head pushing anteriorly. Also facilitated handling techniques with right upper extremity completing PNF patterns. Challenged patient to stand 2 times in the session, min direction for proper hand and body placement. Patient tolerated standing for 30 to 45 seconds each time. Max cues for balance, posture and fall prevention. Also provided knee blocking assist to right lower extremity to prevent buckling. Engaged patient in simple weight shifts left and right once in standing to maximize proprioceptive input through the right leg. Instructed patient on the benefit and value of receiving continued OT services at d/c to increase independence with self care and functional transfers. TRAINING AND EDUCATION PROVIDED Bed Mobility, Benefits of In-Hospital Mobility, Cognitive Skills, Cognitive Stimulation Activities, Command Following, Discharge Planning, Disease Specific Education, Role of Occupational Therapy, Safety/Judgment, Sitting Balance to Improve [place] with ADLs/Self-Care, Standing Balance to Improve [place] with ADLs/Self-Care, Transfer - Sit to Stand, Energy Conservation THERAPEUTIC SKILLS USED Activity Dosing, Assessment of Tolerance Including Vitals Response to Activity, Bed in Chair Position, Cues for Sequencing/Proper Technique for Activity, Cuing Tactile, Cuing Verbal, Cuing Visual, Movement Facilitation, Physical Assist, Teach-Back for Education, Therapeutic Use of Self FUNCTIONAL STATUS Activities of Daily Living Assist Level Additional Information Feeding Minimal Assistance Grooming Moderate Assistance Bathing Upper Body Moderate Assistance Bathing Lower Body Maximal Assistance Dressing Upper Body Moderate Assistance Dressing Lower Body Maximal Assistance Toileting Maximal Assistance Mobility Assist Level Additional Information Bed Mobility Rolling: Moderate Assistance Supine To Sit: Maximal Assistance Sit To Supine: Maximal Assistance Sit to Stand Moderate Assistance Stand to Sit Maximal Assistance Bed to Chair Toilet/Commode Shower Functional Mobility Maximal Assistance, Additional Information Functional Mobility Device: Hand Held Assist GOALS Able to perform HEP with: Minimal Assistance (RUE positioning/self ROM exercises) Feeding with: Set Up Grooming with: Set Up Upper Body Dressing with: Minimal Assistance Lower Body Bathing with: Minimal Assistance (/mod assist) Lower Body Dressing with: Minimal Assistance (/mod assist) Toilet Hygiene with: Minimal Assistance Chair Transfer with: Moderate Assistance Toilet Transfer with: Moderate Assistance Tolerate (minutes of functional activity): 25 (ADL/therapeutic activity up in chair) Functional Activity with: Minimal Assistance Additional Goal 1: Paitent will tolerate standing x 5-7 minutes with min/mod assist of one to progress safety and indep with ADL Demonstrate Competence with Education with: Verbal Cues Only (ADL/mobility safety) Transfer: Patient will complete bed mobility for ADL with min assist Increased Awareness of Cognitive Impairments as Related to ADL's/IADL's: Verbalized, Demonstrated Rehab Potential: Good Progress Toward Goals: Progressing as expected ACUTE CARE TREATMENT PLAN OT Frequency: 2 Times Per Week (2-3 times per week) Treatment Interventions: Education, Self Care/Home Management, Joint Mobility, Strengthening, Functional Mobility Training, Balance Training, Neuromuscular Re-education, Cognitive Training SIGNATURE: AJ Curtis/Prosper PATIENT NAME: Angel Keating DATE: May 05, 2025 TIME: 3:26 PM PROGRESS Observed: 05/05/2025 3:25 PM Status: COMPLETED Source: [facility] HNO ID: [id number] Author: MULU PIZARRO DO Service: Hospital Medicine Author Type: Physician Type: Progress Notes Filed: 05/05/2025 15:26 Note Text: DEPARTMENT OF HOSPITAL MEDICINE PROGRESS NOTE SERVICE DATE: 05/05/2025 SERVICE TIME: 2:40 PM Hospital Medicine/Primary Attending: Mulu Pizarro DO NIGHT AND WEEKEND COVERAGE: UNITY COVERAGE: After 7pm, please call cross cover pager #[phone] Subjective INTERVAL HPI: no new issues MEDICATIONS: Reviewed Objective PHYSICAL EXAM: BP 126/81 Pulse 60 Temp (Src) 98.7 (Oral) Resp 18 Ht 5' 10 (1.78m) Wt 212 lb (96.2kg) SpO2 96% BMI 30.42 kg/(m2). O2 Therapy: Room Air General - NAD, Calm CV - RRR S1 S2 RESP - CTA B/L ABD - soft, NT, ND +BS EXT - no edema NEURO - aphasic Lines, Drains, and Airways Line Duration Implanted Vascular Access Device Single Port 05/01/25 Right Chest 4 days Peripheral 05/01/25 Short Right Forearm 20 Gauge 4 days Drain Duration External Collection Device 05/03/25 0210 2 days DATA: Diagnostic tests reviewed for today's visit: Most recent labs and imaging results. Assessment/Plan Principal Problem: Arterial ischemic stroke, MCA (middle cerebral artery), left, acute (HCC) Active Problems: Class 1 obesity without serious comorbidity with body mass index (BMI) of 30.0 to 30.9 in adult At risk for seizures Cerebral edema (HCC) GBM (glioblastoma multiforme) (HCC) Thrombocytopenia Hemiparesis of right dominant side (HCC) Aphasia due to acute cerebrovascular accident (CVA) (HCC) Bradycardia Metabolic acidosis Hemiparesis due to acute cerebrovascular disease (HCC) Dysarthria due to acute stroke (HCC) History of seizure Cytotoxic cerebral edema (HCC) At risk for altered cerebral tissue perfusion due to history of stroke DNR (do not resuscitate) DNI (do not intubate) Hyperglycemia, drug-induced Obesity, Class I, BMI 30-34.9 Sinus bradycardia Mild left ventricular systolic dysfunction (LVSD) -on asa 81mg daily and lipitor 40mg daily -cont keppra 1g bid, seizure precautions. Vimpat stopped for bradycardia. -cardiology consulted for mildly reduced EF, losartan 12.5mg daily added. Sinus bradycardia felt to not be clinically significant. -continue decadron 10mg daily -plts improved at 90 -diet modified to soft and bite sized and thin liquids after barium swallow, d/w speech -AR recommended Malnutrition Diagnosis supported by Registered Dietitian:Mild Protein-Calorie Malnutrition Based on: Insufficient Energy Intake Assessment: I have reviewed the result of the malnutrition assessment and plan and agree Plan: Diet, Supplements Medication and Non-Pharmacologic VTE Prophylaxis/Anticoagulants Anticoagulant AND Antiplatelet Medications (From admission, onward) Start Dose Route Frequency Last Action Ordered Stop 05/02/25 1530 aspirin 81 mg chewable tab(s) 81 mg PO/FT DAILY Given, 05/05 94005/02/25 1520 -- 05/02/25 1530 enoxaparin 40 mg injection (LOVENOX) (enoxaparin injection (LOVENOX)) 40 mg SQ EVERY 24 HOURS Given, 05/04 1601 05/02/25 1520 -- 05/02/25 1500 activity - mobilize patient (hi,oh) 05/01/25 1545 vte pharmacologic prophylaxis contraindicated (hi,oh) 05/01/25 1545 pneumatic compression sleeve(s) (hi,va) VTE Prophylaxis: VTE prophylaxis appropriate Disposition: To be determined Plan of care discussed with: Provider, RN, Patient SIGNATURE: Mulu Pizarro DO PATIENT NAME: Angel Keating DATE: May 05, 2025 TIME: 2:40 PM etx [id number] CASE MANAGEM Observed: 05/05/2025 12:42 PM Status: COMPLETED Source: [facility] HNO ID: [id number] Author: MULU PIZARRO DO Service: Care Management Author Type: Registered Nurse Type: Care Mgt Progress Note Filed: 05/05/2025 12:54 Note Text: Attestation signed by Mulu Pizarro DO at 05/05/2025 12:54 PM Agree Physician Certification of Less Than 30 Days Skilled Needs Earliest Possible Discharge Date: 05/05/25 To the best of my knowledge, all information provided about the individual is a true and an accurate reflection of Angel Keating's needs. I certify that following the inpatient level of care, a post-acute nursing facility stay is required for less than 30 days related to the condition(s) for which the patient was treated during the inpatient level of care: Principal Problem: Arterial ischemic stroke, MCA (middle cerebral artery), left, acute (HCC) Active Problems: Class 1 obesity without serious comorbidity with body mass index (BMI) of 30.0 to 30.9 in adult At risk for seizures Cerebral edema (HCC) GBM (glioblastoma multiforme) (HCC) Thrombocytopenia Hemiparesis of right dominant side (HCC) Aphasia due to acute cerebrovascular accident (CVA) (HCC) Bradycardia Metabolic acidosis Hemiparesis due to acute cerebrovascular disease (HCC) Dysarthria due to acute stroke (HCC) History of seizure Cytotoxic cerebral edema (HCC) At risk for altered cerebral tissue perfusion due to history of stroke DNR (do not resuscitate) DNI (do not intubate) Hyperglycemia, drug-induced Obesity, Class I, BMI 30-34.9 Sinus bradycardia Mild left ventricular systolic dysfunction (LVSD) Resolved Problems: * No resolved hospital problems. * Attending Physician: Mulu Pizarro DO CASE MANAGEM Observed: 05/05/2025 12:16 PM Status: COMPLETED Source: [facility] HNO ID: [id number] Author: EFREM CAPONE RN Service: Care Management Author Type: Registered Nurse Type: Care Mgt Progress Note Filed: 05/05/2025 15:58 Note Text: CARE MANAGEMENT PROGRESS NOTE SERVICE DATE: 05/05/2025 SERVICE TIME: 12:16 PM LOS: 4 days Needs Prior to Discharge: Insurance Authorization, Discharge Transportation CM spoke with HCPOA and sister, Santa today. Patient was accepted at [facility]. After discussion with mother and sister they have decided to pursue [facility] d/t its location[facility] Tasked [facility] to follow. 7000 tasked. Will need discharge transport. SIGNATURE: Efrem Capone RN PATIENT NAME: Angel Keating DATE: May 05, 2025 TIME: 12:16 PM CBC PNL BLD AUTO Collected: 05/05/2025 6:30 AM Statu s: F Source: [facility] Order Comment: Specimen Type : BLOOD SPECIMEN Ordering Facility: [facility] Address: [address] [place] [address] TYPE CODE TESTS RESULT OUT OF RANGE REFERENCE UNITS LAB 6690-2(LOINC) WBC # Bld Auto 4.27 3.70-11.00 k/uL LAB 789-8(LOINC) RBC # Bld Auto 3.36 Low 4.20-6.00 m/ uL LAB 718-7(LOINC) Hgb Bld-mCnc 11.5 Low 13.0-17.0 g/dL LAB 4544-3(LOINC) Hct VFr Bld Auto 33.9 Low 39.0-51.0 % LAB 787-2(LOINC) MCV RBC Auto 100.9 High 80.0-100.0 fL LAB 785-6(LOINC) MCH RBC Qn Auto 34.2 High 26.0-34.0 pg LAB 786-4(LOINC) MCHC RBC Auto-mCnc 33.9 30.5-36.0 g/dL LAB 65814-8(LOINC) RDW RBC-Rto 16.0 High 11.5-15.0 % LAB 777-3(LOINC) Platelet # Bld Auto 81 Low 150-400 k/uL Result Comment: No clot dete cted. LAB 76471-4([facility]) PMV Bld Auto 11.3 9.0-12.7 fL LAB 771-6(INC) nRBC # Bld Auto 0.04 High <0.01 k/uL Performed By: #### [id number] # ### [facility] CLIA [id number] [address] PROGRESS Observed: 05/04/2025 2:40 PM Status: COMPLETED Source: [facility] HNO ID: [id number] Author: MULU PIZARRO DO Service: Hospital Medicine Author Type: Physician Type: Progress Notes Filed: 05/04/2025 14:46 Note Text: DEPARTMENT OF HOSPITAL MEDICINE PROGRESS NOTE SERVICE DATE: 05/04/2025 SERVICE TIME: 2:40 PM Hospital Medicine/Primary Attending: Mulu Pizarro DO NIGHT AND WEEKEND COVERAGE: UNITY COVERAGE: After 7pm, please call cross cover pager #[phone] Subjective INTERVAL HPI: has no c/o. I can't speak MEDICATIONS: Reviewed Objective PHYSICAL EXAM: BP 123/78 Pulse 54 Temp (Src) 98.7 (Oral) Resp 18 Ht 5' 10 (1.78m) Wt 212 lb (96.2kg) SpO2 98% BMI 30.42 kg/(m2). O2 Therapy: Room Air General - NAD, Calm CV - RRR S1 S2 RESP - CTA B/L ABD - soft, NT, ND +BS EXT - no edema NEURO - aphasic Lines, Drains, and Airways Line Duration Implanted Vascular Access Device Single Port 05/01/25 Right Chest 3 days Peripheral 05/01/25 Short Right Forearm 20 Gauge 3 days Drain Duration External Collection Device 05/03/25 0210 1 day DATA: Diagnostic tests reviewed for today's visit: Most recent labs and imaging results. Assessment/Plan Principal Problem: Arterial ischemic stroke, MCA (middle cerebral artery), left, acute (HCC) Active Problems: Class 1 obesity without serious comorbidity with body mass index (BMI) of 30.0 to 30.9 in adult At risk for seizures Cerebral edema (HCC) GBM (glioblastoma multiforme) (HCC) Thrombocytopenia Hemiparesis of right dominant side (HCC) Aphasia due to acute cerebrovascular accident (CVA) (HCC) Bradycardia Metabolic acidosis Hemiparesis due to acute cerebrovascular disease (HCC) Dysarthria due to acute stroke (HCC) History of seizure Cytotoxic cerebral edema (HCC) At risk for altered cerebral tissue perfusion due to history of stroke DNR (do not resuscitate) DNI (do not intubate) Hyperglycemia, drug-induced Obesity, Class I, BMI 30-34.9 Sinus bradycardia Mild left ventricular systolic dysfunction (LVSD) -on asa 81mg daily and lipitor 40mg daily -cont keppra 1g bid, seizure precautions. Vimpat stopped for bradycardia. -cardiology consulted for mildly reduced EF, losartan 12.5mg daily added. Sinus bradycardia felt to not be clinically significant. -continue decadron 10mg daily -plts improved at 90 -diet modified to soft and bite sized and thin liquids after barium swallow, d/w speech -AR recommended Malnutrition Diagnosis supported by Registered Dietitian:Mild Protein-Calorie Malnutrition Based on: Insufficient Energy Intake Assessment: I have reviewed the result of the malnutrition assessment and plan and agree Plan: Diet, Supplements Medication and Non-Pharmacologic VTE Prophylaxis/Anticoagulants Anticoagulant AND Antiplatelet Medications (From admission, onward) Start Dose Route Frequency Last Action Ordered Stop 05/02/25 1530 aspirin 81 mg chewable tab(s) 81 mg PO/FT DAILY Given, 05/04 0854 05/02/25 1520 -- 05/02/25 1530 enoxaparin 40 mg injection (LOVENOX) (enoxaparin injection (LOVENOX)) 40 mg SQ EVERY 24 HOURS Given, 05/03 1714 05/02/25 1520 -- 05/02/25 1500 activity - mobilize patient (hi,va) 05/01/25 1545 vte pharmacologic prophylaxis contraindicated (hi,va) 05/01/25 1545 pneumatic compression sleeve(s) (hi,va) VTE Prophylaxis: VTE prophylaxis appropriate Disposition: To be determined Plan of care discussed with: Provider, RN, Patient SIGNATURE: Mulu Pizarro DO PATIENT NAME: Angel Keating DATE: May 04, 2025 TIME: 2:40 PM etx [id number] THERAPY NT Observed: 05/04/2025 2:31 PM Status: COMPLETED Source: [facility] HNO ID: [id number] Author: TERESA VASQUEZ PTA Service: Physical Therapy Author Type: Call Worker Person Type: Therapy (PT/OT/Speech/Resp) Filed: 05/04/2025 14:36 Note Text: Attestation signed by Angélica Gurrola, PT at 05/04/2025 3:13 PM I reviewed and agree with the assessment as documented above. SIGNATURE: Angélica Gurrola, PT DATE: May 04, 2025 TIME: 3:13 PM Physical Therapy Treatment Summary SERVICE DATE: 05/04/2025 SERVICE TIME: 1355 to 1422 ROOM: [place] [address] PT 6 Clicks Score: 10 DISCHARGE RECOMMENDATIONS Acute Rehab Recommended Discharge Disposition Comments: Not at functional baseline, recommending acute rehab at discharge due to new neuological deficits from stroke. Recommended Discharge Disposition Due to: Functional deficits requiring ongoing therapy service prior to discharge home., Patient requires active, intensive rehabilitation by multiple therapy disciplines. Anticipate the patient will tolerate 3 hours of therapy per day., Patient requires daily (5x/week) skilled therapy at next level of care., Balance deficits, Functional status decline, Requires multiple therapy disciplines ASSESSMENT Response to Therapy Interventions: Good Participation in Activities Patient continues to require increased levels of assistance with all mobility tasks. Patient continues to be flaccid on right UE/LE. Patient able to come to standing multiple time and perform standing pivot scoots from middle of bed to HOB. Patient well below baseline functioning at this time. Patient would strongly benefit from intensive rehab to maximize functional return toward baseline in a timely manner. Continue to recommend acute care to improve strength, ROM, balance,endurance, normalized gait pattern, and independence with mobility tasks to prior level of function for safe return to home activity. PRECAUTIONS Bed/Chair Alarm, Fall Risk, Lines/Tubes/Drains, Aspiration Diet nectar thick, soft/bite sized ;Low heart rate; IV, ICU monitoring, external catheter CURRENT HOSPITAL COURSE patient presents to the hospital due to R sided weaknes, aphasia. S/p EVT on 05/01/25. 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 Relevant Past Medical History: glioblastoma and chronic expressive aphasia, gross total resection(03/19/2023 and 05/27/2024 and chemotherapy), thrombocytopenia, seizures(vimpat), and anxiety HOME LIVING Patient Lives With: Family Assistance Available: 24-Hour Entry To Home: Stairs, With Rail Number Of Stairs Into Home: 7 Number Of Stairs To Bed/Bath: 0 Tub/Shower Type: WIS with GB, SC, HHS Laundry: Family assists Equipment Owned: Grab Bars- Shower, Hand Held Shower, Long Handled Sponge, Walker- Wheeled, Elevated Toilet Seat PRIOR FUNCTIONAL LEVEL Within Functional Limits Patient PLOF taken from March 2025 ~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 (-) falls Upon questioning pt this session, pt conveys that he is indep with mobility with a quad cane, requires some assist to bathe and does not drive. Will confirm with family. SUBJECTIVE Agreeable to PT session THERAPY DIAGNOSIS Reduced mobility-other TREATMENT INTERVENTIONS Therapeutic Exercise (54446), Therapeutic Activity (85453) Therapeutic Exercise (08838) Treatment Minutes: 13 $ Therapeutic Exercise (82228) Billed Units: 1 unit Patient completed LLE strengthening (ankle pump, quad set, gluteal set, heel slide, hip abd/add to neutral, short arc quad ,SLR, long arc quad, hip adductor squeeze) x 12 to 15 reps with minimal amount of assist with SLR. LLE D1/D2 flexion /extension patterns x 15 reps. Therapeutic Activity (82944) Treatment Minutes: 14 $ Therapeutic Activity (43168) Billed Units: 1 unit cuing/assist for proper movements/techniques with bed mobility, scooting, transfers, standing pivot scoots from middle of bed to HOB. EOB sitting balance--cuing/assist with trunk leaning in all planes, leaning on elbows. Patient assisted with rolling to smooth linens, positioned for comfort at end of session. All needs in reach, bed alarm on. RUE elevated on 2 pillows for edema control. Timed Code Treatment (minutes): 27 Skilled Treatment Time (minutes): 27 TRAINING AND EDUCATION PROVIDED Assistive Device Use, Bed Mobility, Exercise Program, Positioning, Sitting Balance, Transfers THERAPEUTIC SKILLS USED Cues for Sequencing/Proper Technique for Activity, Cuing Tactile, Cuing Verbal, Cuing Visual, Facilitation of Joint Range of Motion, Movement Facilitation, Physical Assist, Postural Alignment Correction FUNCTIONAL STATUS mobility performed during session in bold, other mobility completed during prior session and may no longer be correct or appropriate to complete. Bed Mobility Rolling: Minimal Assistance, Moderate Assistance, Additional Information min A to roll right, mod A to roll left Supine To Sit: Additional Information, Maximal Assistance via log roll technique. cuing for proper movements, assist with trunk/LEs Sit to Supine: Maximal Assistance, Additional Information via reverse log roll technique. cuing for proper movements, assist with trunk/LEs Scooting: Maximal Assistance, Additional Information with draw sheet to HOB in supine Transfers Sit To Stand: Moderate Assistance, Additional Information RLE blocked cuing for LUE support on this GROUND LAYER, simple cue to stand up, assist to boost and with transition/balance Stand To Sit: Moderate Assistance, Additional Information assist with eccentric control Bed to Chair Gait Maximal Assistance Gait Device: Hand Held Assist (gait belt) Gait Distance (feet): stand pivot scoot from middle of bed to HOB Stairs BALANCE Static Sitting Balance: Fair Dynamic Sitting Balance: Fair Static Standing Balance: Poor Dynamic Standing Balance: Poor GOALS Able to Perform HEP with: Minimal Assistance Rolling with: Minimal Assistance Transfer Supine to/from Sit with: Moderate Assistance Transfer Sit to/from Stand with: Moderate Assistance Ambulate with: Moderate Assistance Distance: 10ft Device: Hand Held Assist Transfer: complete bed to chair transfer with modA Rehab Potential: Good Progress Toward Goals: Progressing as expected ACUTE CARE TREATMENT PLAN PT Frequency: 4 Times Per Week (2-4) Treatment Interventions: Education, Strengthening, Functional Mobility Training, Balance Training, Neuromuscular Re-education Plan for Next Visit: Continue per POC SIGNATURE: Teresa Vasquez PTA PATIENT NAME: Angel Keating DATE: May 04, 2025 TIME: 2:31 PM CASE MANAGEM Observed: 05/04/2025 1:55 PM Status: COMPLETED Source: [facility] HNO ID: [id number] Author: EFREM CAPONE RN Service: Care Management Author Type: Registered Nurse Type: Care Mgt Progress Note Filed: 05/04/2025 13:59 Note Text: CARE MANAGEMENT PROGRESS NOTE SERVICE DATE: 05/04/2025 SERVICE TIME: 1:55 PM LOS: 3 days Needs Prior to Discharge: Accepting Facility, Insurance Authorization, Discharge Transportation [place] of Choice Given: Yes Level of Care Discussed: Detention Facility Provider List: Detention Facility Provider list within the patient's requested geographic area shared with the patient/family: Yes within: 20 miles Quality and resource use metrics shared with the patient that are relevant to the patient's goals of care and treatment preferences:: Yes Metrics: Skin Integrity, Incidence of Major Falls CM spoke with [facility]. They are unable to accept d/t concerns of patient being able to complete 3 hours of rehab. Awaiting response from [facility]. TC made to Santa CARROLL. We discussed that [facility] may not be an option and could look at SNF instead. CM emailed SNF list to Santa and sent a referral to [facility] per request. Will need accepting facility, insurance auth, 7000, and discharge transport. SIGNATURE: Efrem Capone RN PATIENT NAME: Angel Keating DATE: May 04, 2025 TIME: 1:55 PM CONSULT PROG Observed: 05/04/2025 12:09 PM Status: COMPLETED Source: [facility] HNO ID: [id number] Author: KARLA HUDSON APRN.CNP Service: Neurology General Author Type: Nurse Practitioner Type: Consult Progress Note Filed: 05/04/2025 12:44 Note Text: NEURO STROKE CONSULT PROGRESS NOTE SERVICE DATE: 05/04/2025 SERVICE TIME: 1209 PM Subjective INTERVAL HISTORY: NAEON. Pt resting ib bed. No visitors present at bedside. MEDICATIONS Current Facility-Administered Medications Medication Dose Route Frequency senna-docusate 8.6-50 mg 1 tablet (SENNA-S) 1 tablet ORAL/FEEDING TUBE BID bisacodyl 10 mg suppository (DULCOLAX) 10 mg RECTAL DAILY PRN ondansetron (PF) 4 mg injection (ZOFRAN) 4 mg INTRAVENOUS q 4 H PRN NaCl 0.9% iv flush bag 20 mL INTRAVENOUS PRN NaCl 0.9% iv infusion 5-30 mL/hr INTRAVENOUS CONTINUOUS acetaminophen 650 mg tab(s) (TYLENOL) 650 mg ORAL/FEEDING TUBE q 4 H PRN Or acetaminophen 650 mg CUP (TYLENOL) 650 mg ORAL/FEEDING TUBE q 4 H PRN Or acetaminophen 650 mg suppository (TYLENOL) 650 mg RECTAL q 4 H PRN atorvastatin 40 mg tab(s) (LIPITOR) 40 mg ORAL/FEEDING TUBE AT BEDTIME sodium chloride 0.9 % (flush) 2-10 mL (BD POSIFLUSH) 2-10 mL INTRAVENOUS DIRECTED PRN levETIRAcetam 1,000 mg tab(s) (KEPPRA) 1,000 mg ORAL/FEEDING TUBE BID dexAMETHasone 10 mg tab(s) (DECADRON) 10 mg ORAL/FEEDING TUBE DAILY atovaquone 1,500 mg oral liquid (MEPRON) 1,500 mg ORAL DAILY WITH BREAKFAST valACYclovir 500 mg tab(s) (VALTREX) 500 mg ORAL DAILY dextrose 15 gram/32 mL 15 g (TRUEPLUS) 15 g ORAL PRN Or glucagon 1 mg injection 1 mg INTRAMUSCULAR PRN Or dextrose 10% iv bolus 12.5 g INTRAVENOUS PRN insulin regular human injection (short acting) SUBCUTANEOUS w MEALS AND HS aspirin 81 mg chewable tab(s) 81 mg ORAL/FEEDING TUBE DAILY enoxaparin 40 mg injection (LOVENOX) 40 mg SUBCUTANEOUS q 24 HR hydrALAZINE 5-10 mg injection (APRESOLINE) 5-10 mg INTRAVENOUS q 6 H PRN losartan 12.5 mg tab(s) (COZAAR) 12.5 mg ORAL DAILY Objective PHYSICAL EXAM Vital Signs: BP 123/78 Pulse (!) 54 Temp 37.1 ?C (98.7 ?F) (Oral) Resp 18 Ht 177.8 cm (5' 10) Wt 96.2 kg (212 lb) SpO2 98% BMI 30.42 kg/m? NEUROLOGICAL: LOC: 0 - alert and responsive 0 LOC Questions: 2 - none correct 2 LOC Commands: 0 - both correct 0 Best Gaze: 0 - normal gaze 0 Visual Land: 0 - no visual loss 0 Facial Palsy: 2 - partial paralysis 2 Motor Left Arm: 0 - no drift 0 Motor Right Arm: 4 - no movement at all 4 Motor Left Le - no drift 0 Motor Right Le - no movement at all 4 Limb Ataxia: 0 - no ataxia (or aphasic, hemiplegic) 0 Sensory: 0 - normal 0 Best Language: 2 - severe aphasia (almost no information exchanged) 2 Dysarthria: 1 - mild-mod slurred 1 Extinction and Inattention: 0 - normal, none detected (or visual loss alone) 0 Daily NIHSS Score: 15 (05/04/25 1209 : Karla Hudson APRN.MANUFACTURING ENGINEERING MANAGER) 15 Awake, oriented to person, place, month via nodding head appropriately to questions +exp aphasia +RFD PERRL EOMI VFF +right hemiplegia 0/5 LUE/LE 5/5 Sensation intact LT DATA: Diagnostic tests reviewed for today's visit: Lipids, HbA1c, Recent Labs 05/01/25 1630 CHOL 184 HDL 66 LDL 91 TG 160* HBA1C 5.8* Most recent labs and imaging results. MEDICAL EVENTS: No medical events have been recorded. STROKE 9 CARE AND PREVENTION CHECKLIST 1. Is the patient currently on an ANTITHROMBOTIC medication (Antiplatelet or Anticoagulant): Aspirin (thrombocytopenia) 2. Does the patient have known AFIB/FLUTTER: No 3. Is the patient on a STATIN: Atorvastatin 40 mg 4. Is the patient on VTE prophylaxis: Mechanical prophylaxis, Pharmacological prophylaxis Pharmacological intervention type: Lovenox Mechanical intervention type: Intermittent compression stocking(s) 5. GLYCEMIC Control Medications: BG needs further management 6. Stroke BP Goals: SBP <140 Stroke BP Control: BP well controlled 7. Stroke IVF/Nutrition: Diet 8. TEMPERATURE Control: Normothermic 9. Does the patient need THERAPY: Yes Therapy Service Involvement: PT, OT, ST Stroke Care and Prevention (personally reviewed by Sal Valdez APRN.MANUFACTURING ENGINEERING MANAGER): Daily Rounding Date: 05/04/25 Daily Rounding Time: 1209 PROBLEM LIST: Principal Problem: Arterial ischemic stroke, MCA (middle cerebral artery), left, acute (HCC) (POA: Yes) Active Problems: Class 1 obesity without serious comorbidity with body mass index (BMI) of 30.0 to 30.9 in adult (POA: Yes) At risk for seizures (POA: Yes) Cerebral edema (HCC) (POA: Yes) GBM (glioblastoma multiforme) (HCC) (POA: Yes) Thrombocytopenia (POA: Yes) Hemiparesis of right dominant side (HCC) (POA: Yes) Aphasia due to acute cerebrovascular accident (CVA) (HCC) (POA: Yes) Bradycardia (POA: Yes) Metabolic acidosis (POA: Yes) Hemiparesis due to acute cerebrovascular disease (HCC) (POA: Yes) Dysarthria due to acute stroke (HCC) (POA: Yes) History of seizure (POA: Yes) Cytotoxic cerebral edema (HCC) (POA: Yes) At risk for altered cerebral tissue perfusion due to history of stroke (POA: Yes) DNR (do not resuscitate) (POA: Yes) DNI (do not intubate) (POA: Yes) Hyperglycemia, drug-induced (POA: Yes) Obesity, Class I, BMI 30-34.9 (POA: Yes) Sinus bradycardia (POA: Yes) Mild left ventricular systolic dysfunction (LVSD) (POA: Unknown) Resolved Problems: * No resolved hospital problems. * Impression/Recommendations IMPRESSION This is a 54 year old male with hx of L FT Glioblastoma, s/p Gross total resection and subsequent chemoradiation, on Lomustine, known thrombocytopenia, Presented to [facility] with worsening speech/aphasia, 04/30 also noted to have worsening motor deficits on the R side, iNIHSS of > 9 for above symptoms, on arrival NIHSS fluctuated between 7-10, unclear if he was pressure dependent. S/p attempted EVT Tici 0 suspect stroke related to localized mass effect related local turbulent flow from his tumor Acute aphasia and worsening R sided weakness with interval worsening on 05/02 Repeat CTH with concern of evolving L basal ganglia infarction BP augmentation SBP 140-180 thrombocytopenia, s/p transfusion Assessment AND Plan Arterial ischemic stroke, MCA (middle cerebral artery), left, acute (HCC) Present on Admission: Yes Hemiparesis of right dominant side (HCC) Present on Admission: Yes Aphasia due to acute cerebrovascular accident (CVA) (HCC) Present on Admission: Yes Dysarthria due to acute stroke (HCC) Present on Admission: Yes CT 05/01: - no appreciable acute process CTA 05/01: - Left M1 occlusion rCTH 05/02 - There is an evolving cerebrovascular accident involving the left putamen, globus pallidus, caudate, and deep white matter of the left frontal lobe. -There is no evidence of hemorrhage. There are postoperative changes in the left temporal lobe associated with resection of glioblastoma. MRI 05/02: - Acute moderate sized infarct centered within left basal ganglia. - Multiple additional punctate acute infarcts within left middle cerebral artery distribution. This is new since 04/18/2025. - Interval decrease in intensity and size of patchy infiltrative enhancement within left basal ganglia and left mesial temporal lobe measuring compared to the 04/18/2025 examination. Comparison of T2 signal is limited in setting of new acute infarct in this region. This is compatible with patient's known glioblastoma. - Subtle small hyperdensity on postcontrast imaging within right caudate. No corresponding T2 hyperintensity. This is favored to be artifactual. - Postsurgical changes from a left-sided craniotomy with presumed resection cavity within left middle cranial fossa adjacent to anterior left temporal lobe. Small extra-axial collection along craniotomy site with extracranial collection, presumably postsurgical. - Unchanged small left parafalcine the extra-axial mass, as detailed above. These are most compatible with meningioma. Echo 05/03: EF 47% Unable to measure LA, but appears grossly normal No evidence of intracardiac shunting LABS: LDL: 91 Goal < 70 A1c: 5.8 Goal < 7.0 Plan: Etiology: suspect secondary to known GBM and localized mass effect causing turbulent blood flow in associated vessels - Secondary Prevention: ASA 81 mg daily and Atorvastatin 40 mg HS - Neuro checks q4h - SBP goal: normotension - medication management per primary - BG control, Goal 140-180 - Needs improved control - Medication management per primary - MRI as above - Echo as above - Maintain tele - DVT ppx: IPCs, SQ Lovenox - PT/OT/Speech; dispo pending. Therapy recs acute rehab - Stroke education - will need follow up with neurology, appointment requests sent, will appear on AVS or in my chart, if unable to make the appointment scheduled for you please call to reschedule. Class 1 obesity without serious comorbidity with body mass index (BMI) of 30.0 to 30.9 in adult Present on Admission: Yes Nutrition consult At risk for seizures Present on Admission: Yes History of seizure Present on Admission: Yes Takings Vimpat 150 mg BID GROUND LAYER, switched to Keppra 1g BID upon admission in setting of bradycardia - c/w Keppra 1g BID - cEEG for 24-48 hours and remove if negative for seizure - c/w seizure precautions - c/w seizure restrictions GBM (glioblastoma multiforme) (HCC) Present on Admission: Yes Cerebral edema (HCC) Present on Admission: Yes follow with outpatient neuro-oncologist Dr. Fraire as scheduled C/w decadron 10mg daily Thrombocytopenia Present on Admission: Yes suspect secondary to recent lomustine therapy for GBM. S/p platelet transfusion on 05/01 and 05/02/25, with improvement in platelet count 34 -> 65 ->98. Platelet count has since remained stable Bradycardia Present on Admission: Yes Likely 2/2 vimpat, switched to LEV DNR (do not resuscitate) Present on Admission: Yes DNI (do not intubate) Present on Admission: Yes Hyperglycemia, drug-induced Present on Admission: Yes 2/2 steroids SSI scale 3 No further recs at this time. Please page #[phone] between 6am-5pm and then #[phone] between hours of 5pm-6am with neurology issues or concerns. Stroke Mechanism Stroke Mechanism - LIP ENTRY ONLY Ischemic Stroke or TIA: Ischemic Stroke TOAST Mechanism ([facility]F-MODIFIED): Stroke of Other Determined Etiology Stroke of Other Determined Etiology: Other Etiology: (see comment) (secondary to localized mass effect of known GBM) Daily NIHSS Score: 15 Part of my note may have been copied from previous documentation. It has been reviewed and is accurate. SIGNATURE: Karla Hudson APRN.MANUFACTURING ENGINEERING MANAGER PATIENT NAME: Angel Keating DATE: May 04, 2025 TIME: 12:44 PM 1149 CONSULT PROG Observed: 05/04/2025 11:27 AM Status: COMPLETED [id number] Author: YNES JOHNSON MD Service: Cardiovascular Medicine Author Type: Physician Type: Consult Progress Note Filed: 05/04/2025 11:29 Note Text: CARDIOLOGY CONSULT PROGRESS NOTE SERVICE DATE: 05/04/2025 SERVICE TIME: 11:27 AM Subjective INTERVAL HISTORY: Patient denies any chest pain shortness of breath lightheadedness orthopnea PND or leg edema. SOCIAL HISTORY[1] Review of Systems: 10/21 systems reviewed and negative except as per subjective above PHYSICAL EXAM: Vital Signs 05/03/25 2303 05/04/25 0344 05/04/25 0759 05/04/25 1112 BP: 118/74 118/68 122/76 123/78 Pulse: (!) 50 (!) 56 (!) 50 (!) 54 Resp: 20 17 18 Temp: 37 ?C (98.6 ?F) 36.8 ?C (98.3 ?F) 36.6 ?C (97.9 ?F) 37.1 ?C (98.7 ?F) TempSrc: Oral Oral Oral Oral SpO2: 97% 97% 98% 98% Weight: Height: General appearance: Normal, alert, appears to be in no acute distress, cooperative HEENT: No JVD Lungs: CTAB; no rales, rhonchi, or wheezes Heart: RRR; normal S1/S2; no murmurs/gallops/rubs Extremities: No lower extremity edema bilaterally Intake/Output: Intake/Output Summary (Last 24 hours) at 05/04/2025 1127 Last data filed at 05/04/2025 0913 Gross per 24 hour Intake 680 ml Output 1960 ml Net -1280 ml MEDICATIONS: Current Facility-Administered Medications Medication Dose Route Frequency senna-docusate 8.6-50 mg 1 tablet (SENNA-S) 1 tablet ORAL/FEEDING TUBE BID bisacodyl 10 mg suppository (DULCOLAX) 10 mg RECTAL DAILY PRN ondansetron (PF) 4 mg injection (ZOFRAN) 4 mg INTRAVENOUS q 4 H PRN NaCl 0.9% iv flush bag 20 mL INTRAVENOUS PRN NaCl 0.9% iv infusion 5-30 mL/hr INTRAVENOUS CONTINUOUS acetaminophen 650 mg tab(s) (TYLENOL) 650 mg ORAL/FEEDING TUBE q 4 H PRN Or acetaminophen 650 mg CUP (TYLENOL) 650 mg ORAL/FEEDING TUBE q 4 H PRN Or acetaminophen 650 mg suppository (TYLENOL) 650 mg RECTAL q 4 H PRN atorvastatin 40 mg tab(s) (LIPITOR) 40 mg ORAL/FEEDING TUBE AT BEDTIME sodium chloride 0.9 % (flush) 2-10 mL (BD POSIFLUSH) 2-10 mL INTRAVENOUS DIRECTED PRN levETIRAcetam 1,000 mg tab(s) (KEPPRA) 1,000 mg ORAL/FEEDING TUBE BID dexAMETHasone 10 mg tab(s) (DECADRON) 10 mg ORAL/FEEDING TUBE DAILY atovaquone 1,500 mg oral liquid (MEPRON) 1,500 mg ORAL DAILY WITH BREAKFAST valACYclovir 500 mg tab(s) (VALTREX) 500 mg ORAL DAILY dextrose 15 gram/32 mL 15 g (TRUEPLUS) 15 g ORAL PRN Or glucagon 1 mg injection 1 mg INTRAMUSCULAR PRN Or dextrose 10% iv bolus 12.5 g INTRAVENOUS PRN insulin regular human injection (short acting) SUBCUTANEOUS w MEALS AND HS aspirin 81 mg chewable tab(s) 81 mg ORAL/FEEDING TUBE DAILY enoxaparin 40 mg injection (LOVENOX) 40 mg SUBCUTANEOUS q 24 HR hydrALAZINE 5-10 mg injection (APRESOLINE) 5-10 mg INTRAVENOUS q 6 H PRN losartan 12.5 mg tab(s) (COZAAR) 12.5 mg ORAL DAILY DATA: Diagnostic tests reviewed for today's visit: Most recent labs and imaging results. Labs: CK 40 11/01/2023 Recent Labs 05/04/25 0517 05/03/25 0307 05/02/25 1128 05/02/25 0312 05/01/25 1630 WBC 4.55 4.87 5.78 < > 5.15 HB 11.3* 10.4* 10.4* < > 12.2* HCT 32.5* 29.2* 30.1* < > 35.2* PLT 90* 96* 98* < > 65* INR -- -- -- -- 1.0 APTT -- -- -- -- 24.9 < > = values in this interval not displayed. Recent Labs 05/04/25 0517 05/03/25 0307 05/02/25 0312 05/01/25 1630 NA 140 140 138 141 K 4.1 3.6* 4.1 3.7 CHLOR 107 110* 105 107 CO2 24 21* 21* 22 BUN 26* 25* 23 23 CREAT 0.82 0.80 0.77 0.78 GLUC 98 99 156* 138* ALKPHOS -- -- -- 78 ALT -- -- -- 23 AST -- -- -- 17 Cholesterol, Total 184 05/01/2025 HDL Cholesterol 66 05/01/2025 LDL Cholesterol, Calculated 91 05/01/2025 Echocardiogram shows EF of 47%. Apical wall motion abnormalities noted. ASSESSMENT AND PLAN: 1. Mild LV dysfunction Patient has no cardiac symptoms. Unable to give beta-blockers because of resting bradycardia secondary to neurological issues. Will start him on losartan 12.5 mg daily. Patient appears euvolemic. To follow a 2 g salt restricted and a 2 L fluid restricted diet. Patient has a history of glioblastoma s/p resection and chemoradiation with known thrombocytopenia. Not a good candidate for any form of ischemic evaluation in this patient who is predominantly sedentary. No further recommendations and will sign off. Please call back with any new questions. SIGNATURE: Ynes Johnson PAGER: [phone] DATE / TIME of SERVICE: May 04, 2025 11:27 AM [1] Social History Tobacco Use Smoking status: Former Current packs/day: 1.00 Average packs/day: 1 pack/day for 4.0 years (4.0 ttl pk-yrs) Types: Cigarettes, Cigars Smokeless tobacco: Never Vaping Use Vaping status: Never Used Substance Use Topics Alcohol use: Not Currently Comment: three beers a month - per pt [id number] Drug use: Never THERAPY NT Observed: 05/04/2025 10:32 AM Status: COMPLETED Source: [facility] HNO ID: [id number] Author: SARITA PERALTA CCC-BEHAVIORAL HEALTH COUNSELOR Service: Speech/Swallow Author Type: Speech Language Pathologist Type: Therapy (PT/OT/Speech/Resp) Filed: 05/04/2025 12:08 Note Text: Summary: MBS Speech Therapy Modified Barium Swallow Study Evaluation SERVICE DATE: 05/04/2025 SERVICE TIME: 1005 to 1025 ROOM: [id number] ([facility]) IMPRESSION Evidence of: Oropharyngeal dysphagia Severity: Mild Chronicity: Acute Etiology: Stroke RECOMMENDATIONS Diet Recommendations Soft and Bite-Sized IDDSI Level 6 Thin Liquids IDDSI Level 0 Swallow Strategy Recommendations Feed / Eat at a slow rate Sit upright 90 degrees for all PO Small Bite/Sip Supervision/Assistance for meals Chew on left side Rigid Oral Hygiene Nursing Recommendations Reinforce use of swallowing strategies Response to Therapy Interventions: Good participation in activities Rehabilitation Precautions: Modified Diet, Aspiration Precautions, Dysphagia, Communication Deficits DISCHARGE RECOMMENDATIONS Recommended Discharge Disposition: Acute Rehab Justification for Recommended Discharge Disposition: Patient requires an intensive inpatient rehabilitation therapy program due to:, requires active, intensive and ongoing intervention of multiple therapy disciplines, complexity requiring a multi-disciplinary team approach, dysphagia requiring frequent assessment and diet modification. Patient would benefit from intensive therapies, 3 hours of therapy a day to maximize potential to return to baseline level of function. CURRENT HOSPITAL COURSE Admitted from home for weakness and aphasia on 05/01. 05/01 NIL. 05/01 XR chest: improved. 05/02 MRI brain: 1. Acute moderate sized infarct centered within left basal ganglia. Multiple additional punctate acute infarcts within left middle cerebral artery distribution. This is new since 04/18/2025. 2. Interval decrease in intensity and size of patchy infiltrative enhancement within left basal ganglia and left mesial temporal lobe measuring compared to the 04/18/2025 examination. Comparison of T2 signal is limited in setting of new acute infarct in this region. This is compatible with patient's known glioblastoma. Continued attention on follow-up imaging is recommended. 3. Subtle small hyperdensity on postcontrast imaging within right caudate. No corresponding T2 hyperintensity. This is favored to be artifactual. Attention on follow-up imaging is recommended given patient's history. 4. Postsurgical changes from a left-sided craniotomy with presumed resection cavity within left middle cranial fossa adjacent to anterior left temporal lobe. Small extra-axial collection along craniotomy site with extracranial collection, presumably postsurgical. Reason for Speech Therapy Consult: swallowing and spech evaluation Relevant Past Medical History: GBM, seizure, Crani HOME ENVIRONMENT / PRIOR FUNCTIONAL LEVEL Prior Functional Level: Within Functional Limits Patient Lives With: Family Prior Swallowing Function/Diet Textures: Dental Soft, Thin Liquids IDDSI Level 0 SUBJECTIVE Patient alert and able to participate in study, aphasic/dysarthric. THERAPY DIAGNOSIS Dysphagia following cerebral infarction TREATMENT INTERVENTIONS $ Modified Barium Swallow Study (59616) Billed Units: 1 unit Modified Barium Swallow Study (28872) Skilled Treatment Time (minutes): 20 TRAINING AND EDUCATION PROVIDED IN Modified Barium Swallow Results THERAPEUTIC SKILLS USED Verbal cuing, Discharge planning, Education on role of discipline / importance of activity OBJECTIVE Current Status Oral Hygiene: Clear, moist oral cavity Dentition: Retains Natural Dentition, Miscellaneous Missing Teeth Current Feeding Method: Oral Current Diet Textures: Soft and Bite-Sized IDDSI Level 6, Mildly Thick Liquids IDDSI Level 2 ([place] Thick) Current Level Of Communication: Verbal, Aphasia, Dysarthria Current Management Of Secretions: Able to self-manage Oral Motor Exam: Within Functional Limits Except Labial Assessment: Generalized weakness Lingual Assessment: Generalized weakness Palatal Elevation: Within Functional Limits SWALLOW ASSESSMENT Position Of Patient During Assessment: Upright In Chair Feeding Method: BEHAVIORAL HEALTH COUNSELOR Fed Patient, Patient Self-Fed Compensatory Strategies Utilized During Assessment: Feed / Eat at a slow rate, Sit upright 90 degrees for all PO, Small Bite/Sip, Supervision/Assistance for meals, Chew on left. INSTRUMENTAL SWALLOW ASSESSMENT Instrumental Swallow Assessment Type: Modified Barium Swallow Study Modified Barium Swallow Views: Lateral position, Anterior-posterior position Barium Consistencies Provided: Thin Liquids IDDSI Level 0, Mildly Thick Liquids IDDSI Level 2 ([place] Thick), Pureed Solids IDDSI Level 4, Solid Oral Phase: Lip Closure: Escape progressing to mid-chin Tongue Control During Bolus Hold: Cohesive bolus between tongue to palatal seal Bolus Preparation/Mastication: Timely and efficient mastication skills Bolus Transport/Lingual Motion: Delayed initiation of tongue motion for A-P movement of the bolus Oral Residue: Residue collection on oral structure (Piecemeal degluttion) Initiation Of Pharyngeal Swallow: Bolus head at pit of pyriforms Pharyngeal Phase: Soft Palate Elevation: No bolus between soft palate/pharyngeal wall Laryngeal Elevation: No superior movement of thyroid cartilage Anterior Hyoid Excursion: No anterior movement Epiglottic Movement: Complete inversion Laryngeal Vestibular Closure/Height of the Swallow: Incomplete - narrow column of air/contrast in laryngeal vestibule Pharyngeal Stripping Wave: Complete Pharyngeal Contraction (A/P View Only): Complete Pharyngoesophageal Segment Opening: Complete distension and complete duration/no obstruction of flow of bolus Tongue Base Retraction: Trace column of contrast or air between tongue base and pharyngeal wall Pharyngeal Residue: Trace residue within or on the pharyngeal structures, Residue within the valleculae following the swallow, Residue within the pyriform sinuses following the swallow Esophageal Clearance In An Upright Position: Complete clearance Penetration: During the swallow Penetration With: Thin Liquids IDDSI Level 0, Mildly Thick Liquids IDDSI Level 2 ([place] Thick) PENETRATION ASPIRATION SCALE Level 1-Material does not enter airway : Regular Consistency, Pureed IDDSI Level 4 Level 2-Material enters the airway, remains above the vocal folds,and is ejected from the airway : Mildly Thick Liquids IDDSI Level 2 ([place] Thick) Level 3-Material enters the airway, remains above the vocal folds,and is not ejected from the airway : Thin Liquids IDDSI Level 0 DYNAMIC IMAGING GRADE OF SWALLOWING TOXICITY (DIGEST) Safety Grade: Grade 1 Efficiency Grade: Grade 0 Total Severity Grade: Grade 1- Mild Pharyngeal Dysphagia No aspiration Encouraged to chew on left side (right facial droop) Recommend upgrade diet but still modified diet + safe swallow strategies Speech Therapy to follow for dysphagia management GOALS SWALLOWING: Patient / Caregiver will demonstrate knowledge of taught compensatory strategies and dietary consistency recommendations to optimize functional swallow function without overt clinical signs and symptoms of aspiration or dysphagia Swallow Goals: Patient will tolerate Soft and Bite-Sized IDDSI Level 6 diet consistency while utilizing compensatory/swallowing strategies given moderate cues in 90% of trials so that the patient will minimize the signs/symptoms of dysphagia. Patient will tolerate Thin Liquids IDDSI Level 0 consistency while utilizing compensatory/swallowing strategies given moderate cues in 90% of trials so that the patient will minimize the signs/symptoms of dysphagia. - upgraded from mildly thick (nectar thick) liquids to thin 05/04/2025 Patient, Caregiver will demonstrate adequate return of knowledge of all compensatory strategies/instruction to effectively assist the patient in immediate safety with oral intake and swallowing. Patient will participate in a Modified Barium Swallow Study (MBS) to thoroughly evaluate the oral and pharyngeal phase of the swallow, which cannot be substantiated through a clinical swallowing evaluation only. Through further diagnostic testing a definitive diagnosis/identification of the patient's current swallowing function and recommended treatment plan can be established. - goal met 05/04/2025 Patient will participate in Uqbobi-Qrbssouq-Smenrzwvq evaluation to further assess communication and cognition to facilitate progress in therapy. Speech Rehab Potential: Good Progress Toward Goals: Progressing as expected Patient /Caregiver Goals: Eat/Drink Without Restrictions ACUTE CARE TREATMENT PLAN ST Frequency: 3 Times Per Week Treatment Interventions: Dysphagia Management Plan of Care Developed with: Patient, Nurse, Physician Plan for next visit: Swallowing Strategies, Dietary Consistencies, Dysphagia Management SIGNATURE: Sarita Peralta [facility]-BEHAVIORAL HEALTH COUNSELOR PATIENT NAME: Angel Keating DATE: May 04, 2025 TIME: 10:32 AM XR MOD BARIUM SWALLOW W SPEECH Observed: 05/04/2025 10:26 AM Status: F Source: [facility] * * *Final Report* * * DATE OF EXAM: May 04 2025 10:26AM AKX [id number] - XR MOD BARIUM SWALLOW W SPEECH / PROCEDURE REASON: Dysphagia, known cause * * * * Physician Interpretation * * * * EXAM TITLE: MODIFIED BARIUM SWALLOW STUDY DATE: 05/04/2025. CLINICAL INDICATION/HISTORY: Dysphagia. TECHNIQUE: Video fluoroscopy was recorded over the cervical esophagus in the lateral projection. Barium preparations of varying consistency were administered by speech pathology. Radiologist was not present for the examination. FINDINGS: Fluoroscopy support was provided for modified barium swallow examination. Please refer to speech therapist's note for details. Fluoroscopic Radiation Summary: Plane A, Air Kerma: 1.7 mGy Dose Area Product (DAP): 646.6 mGy*cm^2 Fluoro time: 1:36 min:sec IMPRESSION: Fluoroscopy support was provided for modified barium swallow examination. Please refer to speech therapist's note for details. Call Worker Person: EMILI Transcribe Date/Time: May 05 2025 3:05P Dictated by : ONUR SOLIS MD This examination was interpreted and the report reviewed and electronically signed by: ONUR SOLIS MD on May 05 2025 3:06PM EST [id number] METAB [id number] PNL SERPL Collected: 5:17 AM Status: F Source: [facility] Order Comment: Specimen Type : BLOOD SPECIMEN Ordering Facility: [facility] Address: [address] [place] [address] TYPE CODE TESTS RESULT OUT OF RANGE REFERENCE UNITS LAB 2345-7(LOINC) Glucose SerPl-mCnc 98 74-99 mg/dL Result Comment: The [place] [employer] (ADA) provides guidance for cutoff values for fasting glucose and random glucose. The ADA defines fasting as no caloric intake for at least 8 hours. Fasting plasma glucose results between 100 to 125 mg/dL indicate increased risk for diabetes (prediabetes). Fasting plasma glucose results greater than or equal to 126 mg/dL meet the criteria for diagnosis of diabetes. In the absence of unequivocal hyperglycemia, results should be confirmed by repeat testing. In a patient with classic symptoms of hyperglycemia or hyperglycemic crisis, random plasma glucose results greater than or equal to 200 mg/dL meet the criteria for diagnosis of diabetes. Reference: Standards of Medical Care in Diabetes 2016, [place] [employer]. Diabetes Care. 2016.39(Suppl 1). LAB 3094-0(LOINC) BUN SerPl-mCnc 26 High 9-24 mg/dL LAB 2160-0(LOINC) Creat SerPl-mCnc 0.82 0.73-1.22 mg/dL LAB 2951-2(LOINC) Sodium SerPl-sCnc 140 136-144 mmol/L LAB 2823-3(LOINC) Potassium SerPl-sCnc 4.1 3.7-5.1 mmol/L LAB 2075-0(LOINC) Chloride SerPl-sCnc 107 98-107 mmol/L LAB 2028-9(LOINC) CO2 SerPl-sCnc 24 22-30 mmol/L LAB 1863-0(LOINC) Anion Gap4 SerPl-sCnc 9 8-15 mmol/L LAB 21676-3(LOINC) Calcium SerPl-mCnc 8.2 Low 8.5-10.2 mg/dL LAB 88872-6(LOINC) eGFRcr SerPlBld CKD-EPI 2020 103 >=60 mL/min/1. 73m??? Result Comment: Estimated Gl omerular Filtration Rate (eGFR) is calculated using the 2020 CKD-EPI creatinine equation. This equation utilizes serum creatinine, sex, and age as parameters. The creatinine assay has traceable calibration to isotope dilution-mass spectrometry. Refer to KDIGO guidelines for clinical interpretation. In patients with unstable renal function, e.g. those with acute kidney injury, the eGFR may not accurately reflect actual GFR. Performed By: #### 06715-8, 95671-1, 2776-1 #### [facility] CLIA [id number] [address] MAGNESIUM SERPL-MCNC Collected: 05/04/2025 5:17 AM S tatus: F Source: [facility] Order Comment: Specimen Type : BLOOD SPECIMEN Ordering Facility: [facility] Address: [address] [place] [address] TYPE CODE TESTS RESULT OUT OF RANGE REFERENCE UNITS LAB 80112-3([facility]) Magnesium SerPl-mCnc 2.2 1.7-2.3 mg/dL Performed By: #### 75607-6, 55912-4, 2776-08 #### [facility] CLIA [id number] [address] PHOSPHATE SERPL-MCNC Collected: 05/04/2025 5:17 AM S tatus: F Source: [facility] Order Comment: Specimen Type : BLOOD SPECIMEN Ordering Facility: [facility] Address: [address] [place] [address] TYPE CODE TESTS RESULT OUT OF RANGE REFERENCE UNITS LAB 2777-1(INC) Phosphate SerPl-mCnc 3.4 2.7-4.8 mg/dL Performed By: #### 16872-6, 31874-4, 2776-1 #### [facility] CLIA [id number] [address] CBC PNL BLD AUTO Collected: 05/04/2025 5:17 AM Statu s: F Source: [facility] Order Comment: Specimen Type : BLOOD SPECIMEN Ordering Facility: [facility] Address: [facility] [place] [address] TYPE CODE TESTS RESULT OUT OF RANGE REFERENCE UNITS LAB 6690-2(INC) WBC # Bld Auto 4.55 3.70-11.00 k/uL LAB 789-8(LOINC) RBC # Bld Auto 3.28 Low 4.20-6.00 m/ uL LAB 718-7(LOINC) Hgb Bld-mCnc 11.3 Low 13.0-17.0 g/dL LAB 4544-3(LOINC) Hct VFr Bld Auto 32.5 Low 39.0-51.0 % LAB 787-2(LOINC) MCV RBC Auto 99.1 80.0-100.0 fL LAB 785-6(LOINC) MCH RBC Qn Auto 34.5 High 26.0-34.0 pg LAB 786-4(LOINC) MCHC RBC Auto-mCnc 34.8 30.5-36.0 g/dL LAB 75250-1([facility]) RDW RBC-Rto 15.9 High 11.5-15.0 % LAB 777-3(INC) Platelet # Bld Auto 90 Low 150-400 k/uL LAB 10920-1([facility]) PMV Bld Auto 10.4 9.0-12.7 fL LAB 771-6(LOINC) nRBC # Bld Auto 0.07 High <0.01 k/uL Performed By: #### 47156-9 # ### [facility] CLIA [id number] [address] [facility] THERAP[facility] NT Observed: 05/03/2025 2:17 PM Status: COMPLETED Source: [facility] HNO ID: [id number] Author: NAILA OSULLIVAN OT/L Service: Occupational Therapy Author Type: Occupational Therapist Type: Therapy (PT/OT/Speech/Resp) Filed: 05/03/2025 14:18 Note Text: Occupational Therapy Evaluation Summary SERVICE DATE: 05/03/2025 SERVICE TIME: 1145 to 1212 ROOM: [place] [address] OT 6 Clicks Score: 13 DISCHARGE RECOMMENDATIONS Acute Rehab Recommended Discharge Disposition Due to: Patient requires active, intensive rehabilitation by multiple therapy disciplines. Anticipate the patient will tolerate 3 hours of therapy per day., ADL impairment, Anticipated community discharge, Cognitive deficits new/worsened, Requires multiple therapy disciplines, Weakness less than 3/5 in upper extremity, Functional status decline ASSESSMENT Response to Therapy Interventions: Good Participation in Activities, Improved Tolerance for Activity, Requires Additional Time to Complete Activities Patient participates well in therapy and is motivated for rehab. Patient is functioning below his baseline level of independence in self care and functional mobility following new onset CVA. Recommend intensive acute rehab at discharge to maximize strength, safety and independence in ADL to safely return home with spouse at highest level of function. PRECAUTIONS Bed/Chair Alarm, Fall Risk, Lines/Tubes/Drains, Aspiration Diet nectar thick, soft/bite sized ;Low heart rate; IV, ICU monitoring, external catheter CURRENT HOSPITAL COURSE patient presents to the hospital due to R sided weaknes, aphasia. S/p EVT on 05/01/25. 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 Relevant Past Medical History: glioblastoma and chronic expressive aphasia, gross total resection(03/19/2023 and 05/27/2024 and chemotherapy), thrombocytopenia, seizures(vimpat), and anxiety HOME LIVING Patient Lives With: Family Assistance Available: 24-Hour Entry To Home: Stairs, With Rail Number Of Stairs Into Home: 7 Number Of Stairs To Bed/Bath: 0 Tub/Shower Type: WIS with GB, SC, HHS Laundry: Family assists Equipment Owned: Grab Bars- Shower, Hand Held Shower, Long Handled Sponge, Walker- Wheeled, Elevated Toilet Seat PRIOR FUNCTIONAL LEVEL Within Functional Limits Patient PLOF taken from March 2025 ~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 (-) falls Upon questioning pt this session, pt conveys that he is indep with mobility with a quad cane, requires some assist to bathe and does not drive. Will confirm with family. Baseline Cognition: Oriented to self, Oriented to place, Oriented to time, Oriented to situation SUBJECTIVE Patient with aphasia, but attempts to answer all questions. Agreeable to therapy. No report of pain during session. COGNITION Communication Deficits: Receptive Deficits, Expressive Deficits Orientation Deficits: (oriented to self, unable to state month; assessment limited by aphasia) Responsiveness: Alert, Awake (Motivated) Follows Commands: 1-step Commands, 2-step Commands, Cueing Needed Cueing to Follow Commands: Minimum Attention Deficits: (mildly impulsive) Executive Function Deficits: Judgement, Insight to Deficits, Problem Solving, Safety Awareness THERAPY DIAGNOSIS Reduced mobility-other, Decreased activities of daily living (ADL), Muscle Weakness (generalized), Unsteadiness on feet, Signs and Symptoms Involving Cognitive Functions and Awareness, General symptoms and signs-other TREATMENT INTERVENTIONS Evaluation, Self Mcc Management (78223) Timed Code Treatment (minutes): 12 Skilled Treatment Time (minutes): 27 $ Evaluation - Moderate (92877) Billed Units: 1 unit Self Mcc Management (90553) Treatment Minutes: 12 $ Self Mcc Management (22667) Billed Units: 1 unit TRAINING AND EDUCATION PROVIDED Activity Adaptation/Compensatory Strategies, Bed Mobility, Benefits of In-Hospital Mobility, Cognitive Skills, Discharge Planning, Disease Specific Education, Functional Mobility Involving ADLs, Feeding Tasks, Grooming Tasks, Lower Extremity Dressing, Lower Extremity Bathing, Role of Occupational Therapy, Safety/Judgment, Sitting Balance to [place] with ADLs/Self-Care, Standing Balance to [place] with ADLs/Self-Care, Toileting , Transfer - Sit to Stand, Upper Extremity Dressing THERAPEUTIC SKILLS USED Activity Dosing, Assessment of Tolerance Including Vitals Response to Activity, Bed in Chair Position, Cues for Sequencing/Proper Technique for Activity, Cuing Tactile, Cuing Verbal, Cuing Visual, Movement Facilitation, Physical Assist, Teach-Back for Education, Therapeutic Use of Self FUNCTIONAL STATUS Activities of Daily Living Assist Level Additional Information Feeding Minimal Assistance Grooming Minimal Assistance, Moderate Assistance Bathing Upper Body Minimal Assistance, Moderate Assistance Bathing Lower Body Moderate Assistance, Maximal Assistance Dressing Upper Body Moderate Assistance Dressing Lower Body Moderate Assistance, Maximal Assistance Toileting Moderate Assistance, Maximal Assistance Mobility Assist Level Additional Information Bed Mobility Rolling: Moderate Assistance Supine To Sit: Moderate Assistance, Additional Information x2 Sit To Supine: Moderate Assistance, Additional Information x2 Sit to Stand Moderate Assistance, Maximal Assistance, Additional Information x2 Stand to Sit Moderate Assistance, Maximal Assistance, Additional Information x2 Bed to Chair Toilet/Commode Shower Functional Mobility Maximal Assistance, Additional Information Functional Mobility Device: Hand Held Assist a few shuffling steps toward head of bed with assist to weight shift, physical assist to advance RLE. Functional standing and mobility done with OT/PT for skilled assist of 2 to safely advance mobility. Range of Motion: Upper Extremity Comments R Upper Extremity ROM Comments: No AROM demonstrated. PROM WFL. Pt reports this is his previous deficit but questionable based on aphasia L Upper Extremity ROM Comments: WFL Strength: Upper Extremity Comments Left Upper Extremity Strength Comments: 4/5 to 4+/5 Coordination Deficits: In hand manipulation, Finger opposition, Rapid alternating movements, Finger to nose (absent) Finger to Nose Impairment: Right Rapid Alternating Movements Impairment: Right Finger Opposition Impairment: Right Hand Manipulation Impairment: Right BALANCE Static Sitting Balance: Good Dynamic Sitting Balance: Fair Static Standing Balance: Poor Dynamic Standing Balance: Poor GOALS Able to perform HEP with: Minimal Assistance (RUE positioning/self ROM exercises) Feeding with: Set Up Grooming with: Set Up Upper Body Dressing with: Minimal Assistance Lower Body Bathing with: Minimal Assistance (/mod assist) Lower Body Dressing with: Minimal Assistance (/mod assist) Toilet Hygiene with: Minimal Assistance Chair Transfer with: Moderate Assistance Toilet Transfer with: Moderate Assistance Tolerate (minutes of functional activity): 25 (ADL/therapeutic activity up in chair) Functional Activity with: Minimal Assistance Additional Goal 1: Paitent will tolerate standing x 5-7 minutes with min/mod assist of one to progress safety and indep with ADL Demonstrate Competence with Education with: Verbal Cues Only (ADL/mobility safety) Transfer: Patient will complete bed mobility for ADL with min assist Increased Awareness of Cognitive Impairments as Related to ADL's/IADL's: Verbalized, Demonstrated Rehab Potential: Good Good Rehab Potential Due To: Current objective clinical presentation, Good support system/ coping skills, Good motivation ACUTE CARE TREATMENT PLAN OT Frequency: 2 Times Per Week (2-3 times per week) Treatment Interventions: Education, Self Care/Home Management, Joint Mobility, Strengthening, Functional Mobility Training, Balance Training, Neuromuscular Re-education, Cognitive Training SIGNATURE: Naila Osullivan OT/L PATIENT NAME: Angel Keating DATE: May 03, 2025 TIME: 2:17 PM CASE MANAGEM Observed: 05/03/2025 1:52 PM Status: COMPLETED Source: [facility] HNO ID: [id number] Author: KAILEY TANG RN Service: Care Management Author Type: Registered Nurse Type: Care Mgt Progress Note Filed: 05/03/2025 13:58 Note Text: CARE MANAGEMENT PROGRESS NOTE SERVICE DATE: 05/03/2025 SERVICE TIME: 1:53 PM LOS: 2 days Needs Prior to Discharge: Accepting Facility, Bed Availability, Insurance Authorization, Discharge Transportation [place] of Choice Given: Yes Provider List: Rehab Facility Provider list within the patient's requested geographic area shared with the patient/family: Yes within: 30 miles of zip code: [address] Spoke with sister/CARLY Pratt, . Explained therapy saw patient and are recommending an Acute Rehab. Santa is agreeable to Acute Rehab. Referrals sent to [facility]. Patient will need cot transportation at discharge. CM will continue to follow discharge planning needs. SIGNATURE: Kailey Tang RN PATIENT NAME: Angel Keating DATE: May 03, 2025 TIME: 1:52 PM THERAPY NT Observed: 05/03/2025 1:19 PM Status: COMPLETED Source: [facility] HNO ID: [id number] Author: DELMA JOSEPH PT Service: Physical Therapy Author Type: Physical Therapist Type: Therapy (PT/OT/Speech/Resp) Filed: 05/03/2025 13:20 Note Text: Physical Therapy Evaluation Summary SERVICE DATE: 05/03/2025 SERVICE TIME: 1120 to 1150 ROOM: [place] [address] PT 6 Clicks Score: 10 DISCHARGE RECOMMENDATIONS Acute Rehab Recommended Discharge Disposition Comments: Not at functional baseline, recommending acute rehab at discharge due to new neuological deficits from stroke. Recommended Discharge Disposition Due to: Functional deficits requiring ongoing therapy service prior to discharge home., Patient requires active, intensive rehabilitation by multiple therapy disciplines. Anticipate the patient will tolerate 3 hours of therapy per day., Patient requires daily (5x/week) skilled therapy at next level of care., Balance deficits, Functional status decline, Requires multiple therapy disciplines ASSESSMENT Response to Therapy Interventions: Good Participation in Activities PRECAUTIONS Fall Risk, Bed/Chair Alarm CURRENT HOSPITAL COURSE patient presents to the hospital due to R sided weaknes, aphasia. S/p EVT on 05/01/25. 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 Relevant Past Medical History: glioblastoma and chronic expressive aphasia, gross total resection(03/19/2023 and 05/27/2024 and chemotherapy), thrombocytopenia, seizures(vimpat), and anxiety HOME LIVING Patient Lives With: Family Assistance Available: 24-Hour Entry To Home: Stairs, With Rail Number Of Stairs Into Home: 7 Number Of Stairs To Bed/Bath: 0 Tub/Shower Type: WIS with GB, SC, HHS Laundry: Family assists Equipment Owned: Grab Bars- Shower, Hand Held Shower, Long Handled Sponge, Walker- Wheeled, Elevated Toilet Seat PRIOR FUNCTIONAL LEVEL Within Functional Limits Patient PLOF taken from March 2025 ~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 (-) falls SUBJECTIVE Agreeable to PT session THERAPY DIAGNOSIS Reduced mobility-other TREATMENT INTERVENTIONS Evaluation, Therapeutic Activity (16079) $ Evaluation-Moderate (78624) Billed Units: 1 unit Therapeutic Activity (75880) Treatment Minutes: 10 $ Therapeutic Activity (51741) Billed Units: 1 unit Cues for safe transfers and mobility noted in grid below. Timed Code Treatment (minutes): 10 Skilled Treatment Time (minutes): 25 TRAINING AND EDUCATION PROVIDED Assistive Device Use, Bed Mobility, Benefits of In-Hospital Mobility, Discharge Planning, Disease Specific Education, Expected Functional Level, Precautions/Restrictions, Pre-gait Activities, Role of Physical Therapy, Sitting Balance, Standing Balance, Transfers THERAPEUTIC SKILLS USED Cuing Tactile, Cues for Sequencing/Proper Technique for Activity, Cuing Verbal, Cuing Visual, Movement Facilitation, Muscle Activation Facilitation, Physical Assist, Postural Alignment Correction FUNCTIONAL STATUS Bed Mobility Rolling: Minimal Assistance, Moderate Assistance, Additional Information Increased difficulty with rolling toward the L side due to R sided weakness. Able to roll easier to the R side and able to use LUE to assist with rolling Supine To Sit: Moderate Assistance, Additional Information (x2) Cues to move towrad R side and to reach across body for bed rail to assist with moving toward that side of the bed. Cues to push up from the bed to get to sitting position. Sit to Supine: Maximal Assistance, Additional Information (x2) Cues to lay into bed and PT asisted with legs and trunk. Transfers Sit To Stand: Maximal Assistance, Additional Information (x2) Provided R knee block, assist at gait belt to come to standing position. Once standing, cues to stand tall and look up. Stand To Sit: Maximal Assistance, Additional Information (x2) Assisted to sit slowly onto EOB Bed to Chair Gait Maximal Assistance, Additional Information (x2) Cues to take side steps toward HOB, Assisted to weight shift onto L leg, PT assisted to facilitated side step toward HOB. When weight bearing on R leg to side PT provided R knee block Gait Device: Hand Held Assist (gait belt.) Gait Distance (feet): 4 side steps toward HOB. Gait Deviations Right Lower Extremity: Knee stability during stance phase decreased Stairs RANGE OF MOTION WFL STRENGTH Strength Limitation Comments: RLE 0/5, RUE 0/5 BALANCE Static Sitting Balance: Good Dynamic Sitting Balance: Good Static Standing Balance: Poor Dynamic Standing Balance: Poor GOALS Able to Perform HEP with: Minimal Assistance Rolling with: Minimal Assistance Transfer Supine to/from Sit with: Moderate Assistance Transfer Sit to/from Stand with: Moderate Assistance Ambulate with: Moderate Assistance Distance: 10ft Device: Hand Held Assist Transfer: complete bed to chair transfer with modA Rehab Potential: Good Good Rehab Potential Due To: Current objective clinical presentation ACUTE CARE TREATMENT PLAN PT Frequency: 4 Times Per Week (2-4) Treatment Interventions: Education, Strengthening, Functional Mobility Training, Balance Training, Neuromuscular Re-education SIGNATURE: Delma Joseph PT PATIENT NAME: Angel Keating DATE: May 03, 2025 TIME: 1:19 PM NUTRITION Observed: 05/03/2025 11:37 AM Status: COMPLETED Source: [facility] ID: [id number] Author: FIDELINA SIEGEL RD Service: Nutrition Therapy Author Type: Registered Dietitian Type: Nutrition Filed: 05/03/2025 15:19 Note Text: NUTRITION THERAPY INITIAL ASSESSMENT SERVICE DATE: 05/03/2025 SERVICE TIME: Start Time: 1205 Nutrition Assessment: Recommended Malnutrition Diagnosis: Mild Protein-Calorie Malnutrition In the context of: Chronic Illness or Injury Based on: Insufficient Energy Intake Nutrition Diagnosis: Problem: Suboptimal protein/energy intake Related to: Inability to consume sufficient nutrients As evidenced by: Weight loss, Food/nutrition related history, Medical condition Care Plan: Change diet to Soft and Bite-Sized IDDSI Level 6 Mildly Thick Liquids IDDSI Level 2 ([place] Thick), Medications whole in puree (pudding/applesauce) (per BEHAVIORAL HEALTH COUNSELOR 05/03/25) Supplements: Mighty Shake No Sugar Added, Magic Cup (pre-thickened ONS) Monitor and Evaluation: Meet greater than 75% of estimated needs, Monitor fluid/electrolyte balance, Monitor labs, I/Os, vital signs, weight, Monitor bowel function HPI: 54 M - GBM (left temporal lobe) s/p gross total resection (03/19/2023 and 05/27/2024 and chemotherapy), thrombocytopenia, seizures (vimpat), and anxiety who presents for right sided weakness and aphasia. Admit with Left MCA M1 segment occlusion s/p unsuccessful mechanical thrombectomy. BEHAVIORAL HEALTH COUNSELOR recommended: soft, bite-sized with mildly thick liquids. Intake History: Nutrition Intake Prior to Admission: Less than 75% estimated energy needs greater than or equal to 1 month Dosing Weight: 93 kg (205 lb 0.4 oz) Dosing Weight Type: (04/20/25 office visit) Estimated kilocalorie needs: 0237-9166 Calorie Calculation Method: 20-25 kcals/kg Estimated protein needs (grams): 112-149 Grams protein determined by: 1.2 - 1.6 g/kg Diet Orders (From admission, onward) Start Ordered 05/01/25 1800 DIET REGULAR START NOW Question: Liquid Consistency Answer: THIN LIQUID (L0) 05/01/25 4771 Anthropometrics: Height: 177.8 cm (5' 10) Weight: 96.2 kg (212 lb) Usual Weight: 99.8 kg (220 lb) 02/2025 Usual Weight Obtained From: Chart Review Body mass index is 30.42 kg/m?. Weight change percentage over time: 6.5% weight loss x 3 months Weight Change: Not clinically significant weight loss Last Wt 05/01/25 : 96.2 kg (212 lb) 04/20/25 : 93.3 kg (205 lb 11 oz) 04/19/25 : 92.1 kg (203 lb) 04/14/25 : 91.6 kg (202 lb) 04/05/25 : 92 kg (202 lb 13.2 oz) 03/27/25 : 94.5 kg (208 lb 5.4 oz) 03/02/25 : 95 kg (209 lb 7 oz) 02/08/25 : 99.8 kg (220 lb 0.3 oz) 01/19/25 : 100.5 kg (221 lb 9 oz) 12/01/24 : 100.5 kg (221 lb 9 oz) 11/17/24 : 98.7 kg (217 lb 9.5 oz) 10/13/24 : 99.8 kg (220 lb 0.3 oz) 09/22/24 : 99.8 kg (220 lb) 08/12/24 : 99.5 kg (219 lb 5.7 oz) 07/14/24 : 97.3 kg (214 lb 8.1 oz) 05/26/2024 101.2 kg (223 lb) 04/28/2024 101.8 kg (224 lb 6.9 oz) Physical Exam: Subcutaneous fat loss: No Subcutaneous Fat Loss Muscle loss: No Muscle Loss Potential micronutrient deficiency: No deficiency identified Edema/Ascites: Generalized GI Symptoms: Swallowing problems Stool Amount: Unchanged Functional Status: Regressed Potential Signs of Inflammation: Chronic condition, Imaging studies, Hypoalbuminemia Lines, Drains, and Airways Drain Duration External Collection Device 05/03/25 0210 <1 day MNT Billing: $ Routine Care : 1 unit Time Spent (mins): 6 SIGNATURE: Fidelina Siegel RD PATIENT NAME: Angel Keating DATE: May 03, 2025 TIME: 11:37 AM CONSULT PROG Observed: 05/03/2025 11:34 AM Status: COMPLETED Source: [facility] HNO ID: [id number] Author: SAL VALDEZ APRN.MANUFACTURING ENGINEERING MANAGER Service: Neurology General Author Type: Nurse Practitioner Type: Consult Progress Note Filed: 05/03/2025 11:53 Note Text: NEURO STROKE CONSULT PROGRESS NOTE SERVICE DATE: 05/03/2025 SERVICE TIME: 8:30 AM Subjective INTERVAL HISTORY: Patient resting in bed without acute distress. Remains with right sided plegia, right facial asymmetry and expressive aphasia. Discussed MRI results and plan of care to continue ASA 81 mg for now. Answered questions to the best of my ability. Patient without questions at this time. MEDICATIONS Current Facility-Administered Medications Medication Dose Route Frequency senna-docusate 8.6-50 mg 1 tablet (SENNA-S) 1 tablet ORAL/FEEDING TUBE BID bisacodyl 10 mg suppository (DULCOLAX) 10 mg RECTAL DAILY PRN ondansetron (PF) 4 mg injection (ZOFRAN) 4 mg INTRAVENOUS q 4 H PRN NaCl 0.9% iv flush bag 20 mL INTRAVENOUS PRN NaCl 0.9% iv infusion 5-30 mL/hr INTRAVENOUS CONTINUOUS hydrALAZINE 5-10 mg injection (APRESOLINE) 5-10 mg INTRAVENOUS q 15 MIN PRN acetaminophen 650 mg tab(s) (TYLENOL) 650 mg ORAL/FEEDING TUBE q 4 H PRN Or acetaminophen 650 mg CUP (TYLENOL) 650 mg ORAL/FEEDING TUBE q 4 H PRN Or acetaminophen 650 mg suppository (TYLENOL) 650 mg RECTAL q 4 H PRN atorvastatin 40 mg tab(s) (LIPITOR) 40 mg ORAL/FEEDING TUBE AT BEDTIME sodium chloride 0.9 % (flush) 2-10 mL (BD POSIFLUSH) 2-10 mL INTRAVENOUS DIRECTED PRN levETIRAcetam 1,000 mg tab(s) (KEPPRA) 1,000 mg ORAL/FEEDING TUBE BID dexAMETHasone 10 mg tab(s) (DECADRON) 10 mg ORAL/FEEDING TUBE DAILY potassium chloride 20-40 mEq oral powder (KLOR-CON) 20-40 mEq ORAL/FEEDING TUBE PRN Or potassium chloride iv piggyback 20 mEq/100 mL 20 mEq INTRAVENOUS PRN sodium phosphate 30 mmol in D5W 250 mL 30 mmol INTRAVENOUS PRN(NO DISPENSE) Or sodium phosphate 45 mmol in D5W 250 mL 45 mmol INTRAVENOUS PRN(NO DISPENSE) magnesium sulfate iv piggyback in sterile water 2 g 50 mL 2 g INTRAVENOUS PRN calcium gluconate iv piggyback 2 g in NaCl (iso-osmotic) 100 mL 2 g INTRAVENOUS PRN(NO DISPENSE) atovaquone 1,500 mg oral liquid (MEPRON) 1,500 mg ORAL DAILY WITH BREAKFAST valACYclovir 500 mg tab(s) (VALTREX) 500 mg ORAL DAILY dextrose 15 gram/32 mL 15 g (TRUEPLUS) 15 g ORAL PRN Or glucagon 1 mg injection 1 mg INTRAMUSCULAR PRN Or dextrose 10% iv bolus 12.5 g INTRAVENOUS PRN insulin regular human injection (short acting) SUBCUTANEOUS w MEALS AND HS aspirin 81 mg chewable tab(s) 81 mg ORAL/FEEDING TUBE DAILY enoxaparin 40 mg injection (LOVENOX) 40 mg SUBCUTANEOUS q 24 HR Objective PHYSICAL EXAM Vital Signs: BP 125/70 Pulse (!) 50 Temp 36.7 ?C (98.1 ?F) (Oral) Resp 16 Ht 177.8 cm (5' 10) Wt 96.2 kg (212 lb) SpO2 98% BMI 30.42 kg/m? NEUROLOGICAL: LOC: 0 - alert and responsive 0 LOC Questions: 0 - both correct 0 LOC Commands: 0 - both correct 0 Best Gaze: 0 - normal gaze 0 Visual Land: 0 - no visual loss 0 Facial Palsy: 2 - partial paralysis 2 Motor Left Arm: 0 - no drift 0 Motor Right Arm: 4 - no movement at all 4 Motor Left Le - no drift 0 Motor Right Le - no movement at all 4 Limb Ataxia: 0 - no ataxia (or aphasic, hemiplegic) 0 Sensory: 1 - mild to moderate unilateral loss but patient aware of touch (or aphasic, confused) 1 Best Language: 1 - mild-mod aphasia (comprehensible) 1 Dysarthria: 1 - mild-mod slurred 1 Extinction and Inattention: 0 - normal, none detected (or visual loss alone) 0 Daily NIHSS Score: 13 (05/03/25 0830 : Sal Valdez, BUDDY.MANUFACTURING ENGINEERING MANAGER) 13 MENTAL STATUS: Alert, oriented to person, place and time and Follows commands CRANIAL NERVES: PERRLA, EOM's intact. Right facial droop. Tongue deviation to right MOTOR: decreased tone RUE/RLE MOTOR STRENGTH: RUE/RLE 0/5 LUE/LLE 5/5 REFLEXES: Not assessed SENSATION: Diminished light touch and pinprick in RUE/rLE COORDINATION: intact LUE/LLLE GAIT: Not assessed DATA: Diagnostic tests reviewed for today's visit: Lipids, HbA1c, Recent Labs 05/01/25 1630 CHOL 184 HDL 66 LDL 91 TG 160* HBA1C 5.8* Most recent labs and imaging results. MEDICAL EVENTS: No medical events have been recorded. STROKE 9 CARE AND PREVENTION CHECKLIST 1. Is the patient currently on an ANTITHROMBOTIC medication (Antiplatelet or Anticoagulant): Aspirin (thrombocytopenia) 2. Does the patient have known AFIB/FLUTTER: No 3. Is the patient on a STATIN: Atorvastatin 40 mg 4. Is the patient on VTE prophylaxis: Mechanical prophylaxis, Pharmacological prophylaxis Pharmacological intervention type: Lovenox Mechanical intervention type: Intermittent compression stocking(s) 5. GLYCEMIC Control Medications: BG needs further management 6. Stroke BP Goals: <180/105 Stroke BP Control: BP well controlled 7. Stroke IVF/Nutrition: Diet 8. TEMPERATURE Control: Normothermic 9. Does the patient need THERAPY: Yes Therapy Service Involvement: PT, OT, ST Stroke Care and Prevention (personally reviewed by Sal Valdez APRN.MANUFACTURING ENGINEERING MANAGER): Daily Rounding Date: 05/03/25 Daily Rounding Time: 0800 PROBLEM LIST: Principal Problem: Arterial ischemic stroke, MCA (middle cerebral artery), left, acute (HCC) (POA: Yes) Active Problems: Class 1 obesity without serious comorbidity with body mass index (BMI) of 30.0 to 30.9 in adult (POA: Yes) At risk for seizures (POA: Yes) Cerebral edema (HCC) (POA: Yes) GBM (glioblastoma multiforme) (HCC) (POA: Yes) Thrombocytopenia (POA: Yes) Acute ischemic left MCA stroke (HCC) (POA: Yes) Hemiparesis of right dominant side (HCC) (POA: Yes) Aphasia due to acute cerebrovascular accident (CVA) (HCC) (POA: Yes) Bradycardia (POA: Yes) Metabolic acidosis (POA: Yes) Hemiparesis due to acute cerebrovascular disease (HCC) (POA: Yes) Dysarthria due to acute stroke (HCC) (POA: Yes) History of seizure (POA: Yes) Cytotoxic cerebral edema (HCC) (POA: Yes) At risk for altered cerebral tissue perfusion due to history of stroke (POA: Yes) DNR (do not resuscitate) (POA: Yes) DNI (do not intubate) (POA: Yes) Hyperglycemia, drug-induced (POA: Yes) Obesity, Class I, BMI 30-34.9 (POA: Yes) Sinus bradycardia (POA: Yes) Resolved Problems: * No resolved hospital problems. * Impression/Recommendations IMPRESSION This is a 54 year old male with hx of L FT Glioblastoma, s/p Gross total resection and subsequent chemoradiation, on Lomustine, known thrombocytopenia, who presented to [facility] with worsening speech/aphasia, 04/30 also noted to have worsening motor deficits on the R side, today found to have LM1 occlusion (?new) for which he was transferred emergently to [facility] for potential mechanical thrombectomy. iNIHSS of > 9 for above symptoms, on arrival NIHSS fluctuated between 7-10, unclear if he was pressure dependent. After weighing risks vs benefits, decision made to consider EVT for potential MCA recanalization. He had notable thrombocytopenia at 34 for which he received 1 PUplatelets. Acute aphasia and worsening R sided weakness with interval worsening on 05/02 LM1 occlusion with unsuccessful recanalization attempt using EVT; suspect stroke related to localized mass effect related local turbulent flow from his tumor known L temporal Glioblastoma s/p resection/chemorx assisted use of ASM with Lacosamide 150 BID, switched to keppra 1g BID in setting of bradycardia thrombocytopenia, s/p [address] 05/01: - no appreciable acute process CTA 05/01: - Left M1 occlusion rCTH 05/02 - There is an evolving cerebrovascular accident involving the left putamen, globus pallidus, caudate, and deep white matter of the left frontal lobe. -There is no evidence of hemorrhage. There are postoperative changes in the left temporal lobe associated with resection of glioblastoma. MRI 05/02: - Acute moderate sized infarct centered within left basal ganglia. - Multiple additional punctate acute infarcts within left middle cerebral artery distribution. This is new since 04/18/2025. - Interval decrease in intensity and size of patchy infiltrative enhancement within left basal ganglia and left mesial temporal lobe measuring compared to the 04/18/2025 examination. Comparison of T2 signal is limited in setting of new acute infarct in this region. This is compatible with patient's known glioblastoma. Continued attention on follow-up imaging is recommended. - Subtle small hyperdensity on postcontrast imaging within right caudate. No corresponding T2 hyperintensity. This is favored to be artifactual. Attention on follow-up imaging is recommended given patient's history. - Postsurgical changes from a left-sided craniotomy with presumed resection cavity within left middle cranial fossa adjacent to anterior left temporal lobe. Small extra-axial collection along craniotomy site with extracranial collection, presumably postsurgical. - Unchanged small left parafalcine the extra-axial mass, as detailed above. These are most compatible with meningioma. Echo 05/03: EF 47% Unable to measure LA, but appears grossly normal No evidence of intracardiac shunting LABS: LDL: 91 Goal < 70 A1c: 5.8 Goal < 7.0 # Acute Ischemic Stroke, Left MCA # Expressive aphasia # Dysarthria # facial droop Etiology: suspect secondary to known GBM and localized mass effect causing turbulent blood flow in associated vessels - Secondary Prevention: ASA 81 mg daily and Atorvastatin 40 mg HS - Neuro checks q4h - SBP goal: normotension - medication management per primary - BG control, Goal 140-180 - Needs improved control - Medication management per primary - MRI completed - F/U TTE results - Echo - Maintain tele - DVT ppx: IPCs, SQ Lovenox - PT/OT/Speech - Stroke education - will need follow up with neurology, appointment requests sent, will appear on AVS or in my chart, if unable to make the appointment scheduled for you please call to reschedule. # At risk for Seizures Takings Vimpat 150 mg BID GROUND LAYER, switched to Keppra 1g BID upon admission in setting of bradycardia - c/w Keppra 1g BID - cEEG for 24-48 hours and remove if negative for seizure - c/w seizure precautions - c/w seizure restrictions - Will continue to follow Stroke Mechanism Stroke Mechanism - LIP ENTRY ONLY Ischemic Stroke or TIA: Ischemic Stroke TOAST Mechanism ([facility]-MODIFIED): Stroke of Other Determined Etiology Stroke of Other Determined Etiology: Other Etiology: (see comment) (secondary to localized mass effect of known GBM) Daily NIHSS Score: 13 Part of my note may have been copied from previous documentation. It has been reviewed and is accurate. SIGNATURE: Sal Valdez APRN.EDSON PATIENT NAME: Angel Keating DATE: May 03, 2025 TIME: 11:35 AM 1149 THERAPY NT Observed: 05/03/2025 11:17 AM Status: COMPLETED Source: [facility] HNO ID: [id number] Author: MARCE LOPEZ CCC-BEHAVIORAL HEALTH COUNSELOR Service: Speech/Swallow Author Type: Speech Language Pathologist Type: Therapy (PT/OT/Speech/Resp) Filed: 05/03/2025 11:20 Note Text: Speech Therapy Clinical Swallow Evaluation SERVICE DATE: 05/03/2025 SERVICE TIME: 1049 to 1109 ROOM: [place] [id number] IMPRESSION Swallow Deficits Identified / Suspected: Oropharyngeal dysphagia RECOMMENDATIONS Diet Recommendations Soft and Bite-Sized IDDSI Level 6 Mildly Thick Liquids IDDSI Level 2 ([place] Thick), Medications whole in puree (pudding/applesauce) Swallow Strategy Recommendations Alert (patient should be fully alert for P.O. intake), 1:1 Supervision, Feed / Eat at a slow rate, Small Bite/Sip, Sit upright 90 degrees for all PO, Rigid Oral Hygiene, Reduced bite size Nursing Recommendations Routine Rigid Oral Hygiene, Reinforce use of swallowing strategies Instrumental Swallow Study Recommendations Modified Barium Swallow Study (MBSS) Recommended Consults Response to Therapy Interventions: Good participation in activities Rehabilitation Precautions: Modified Diet, Aspiration Precautions, Dysphagia DISCHARGE RECOMMENDATIONS Recommended Discharge Disposition: Acute Rehab Justification for Recommended Discharge Disposition: expressive language/communication deficits, receptive language/communication deficits, dysphagia requiring frequent assessment and diet modification CURRENT HOSPITAL COURSE Admitted from home for weakness and aphasia Reason for Speech Therapy Consult: swallowing and spech evaluation Relevant Past Medical History: Temoroal Glioblastoma, Seizures, s/p gross total resection in 2022 and 2023 HOME ENVIRONMENT / PRIOR FUNCTIONAL LEVEL Prior Functional Level: Within Functional Limits Patient Lives With: Family Prior Swallowing Function/Diet Textures: Dental Soft, Thin Liquids IDDSI Level 0 SUBJECTIVE Awake and agrees to evaluation THERAPY DIAGNOSIS Dysphagia, unspecified TREATMENT INTERVENTIONS Clinical Swallow Evaluation (61841) Skilled Treatment Time (minutes): 20 $ Clinical Swallow Evaluation (53302) Billed Units: 1 unit TRAINING AND EDUCATION PROVIDED IN Dysphagia Management THERAPEUTIC SKILLS USED Education on role of discipline / importance of activity, Verbal cuing OBJECTIVE Current Status Oral Hygiene: Clear, moist oral cavity, Oral Health Assessment Tool (OHAT) Dentition: Edentulous, Retains Natural Dentition, Miscellaneous Missing Teeth Current Feeding Method: Oral Current Diet Textures: Regular Consistency, Thin Liquids IDDSI Level 0 Current Level Of Communication: Verbal, Aphasia Current Management Of Secretions: Able to self-manage Oral Motor Exam: Within Functional Limits Except Labial Assessment: Generalized weakness Lingual Assessment: Generalized weakness Palatal Elevation: Within Functional Limits ORAL HEALTH ASSESSMENT TOOL Lips: 0 Tongue: 0 Gums and Tissues: 0 Saliva: 0 Natural Teeth: 1 Dentures: N/A Oral Cleanliness: 1 Dental Pain: 0 OHAT Total Score: 2 SWALLOW ASSESSMENT Position Of Patient During Assessment: Upright In Bed Feeding Method: BEHAVIORAL HEALTH COUNSELOR Fed Patient, Patient Self-Fed Consistencies Presented: Thin Liquids IDDSI Level 0, Soft and Bite-Sized Solids IDDSI Level 6, Pureed Solids IDDSI Level 4 Thin Liquids Oral Phase: Impaired A-P Transfer, Bolus Holding, Suspected Lingual Pumping Thin Liquids Pharyngeal Phase: Suspect Delayed Swallow, Suspect Reduced Range of Hyoid/Laryngeal Elevation, Cough- Immediate Pureed Solids Oral Phase: Impaired A-P Transfer, Suspected Lingual Pumping Pureed Solids Pharyngeal Phase: Suspect Delayed Swallow, Suspect Reduced Range of Hyoid/Laryngeal Elevation Soft and Bite-Sized Solids Oral Phase: Impaired Mastication, Suspected Lingual Pumping Soft and Bite-Sized Solids Pharyngeal Phase: Suspect Delayed Swallow, Suspect Reduced Range of Hyoid/Laryngeal Elevation Response to Swallow Interventions: coughing consistently with thins Compensatory Strategies Utilized During Assessment: Alert (patient should be fully alert for P.O. intake), 1:1 Supervision, Extended time between presentations, Feed / Eat at a slow rate, Small Bite/Sip, Sit upright 90 degrees for all PO, Self-monitoring, Voice checks + overt signs of aspiration with thins No overt signs and symptoms of aspiration with soft and puree, nectars Eats softer foods at home due to missing teeth Recommend Modified Barium Swallow for further swallow evaluation GOALS SWALLOWING: Patient / Caregiver will demonstrate knowledge of taught compensatory strategies and dietary consistency recommendations to optimize functional swallow function without overt clinical signs and symptoms of aspiration or dysphagia Swallow Goals: Patient will tolerate Soft and Bite-Sized IDDSI Level 6 diet consistency while utilizing compensatory/swallowing strategies given moderate cues in 90% of trials so that the patient will minimize the signs/symptoms of dysphagia. Patient will tolerate Mildly Thick Liquids IDDSI Level 2 ([place] Thick) consistency while utilizing compensatory/swallowing strategies given moderate cues in 90% of trials so that the patient will minimize the signs/symptoms of dysphagia. Patient, Caregiver will demonstrate adequate return of knowledge of all compensatory strategies/instruction to effectively assist the patient in immediate safety with oral intake and swallowing. Patient will participate in a Modified Barium Swallow Study (MBS) to thoroughly evaluate the oral and pharyngeal phase of the swallow, which cannot be substantiated through a clinical swallowing evaluation only. Through further diagnostic testing a definitive diagnosis/identification of the patient's current swallowing function and recommended treatment plan can be established. Patient will participate in Eorhql-Pkasczca-Aosvsddnp evaluation to further assess communication and cognition to facilitate progress in therapy. Speech Rehab Potential: Good Good Rehab Potential Due To: Current objective clinical presentation Patient /Caregiver Goals: Eat/Drink Without Restrictions ACUTE CARE TREATMENT PLAN ST Frequency: 3 Times Per Week Treatment Interventions: Dysphagia Management Plan of Care Developed with: Patient, Nurse Plan for next visit: Dysphagia Management, Modified Barium Swallow Results SIGNATURE: Marce Lopez [facility]-BEHAVIORAL HEALTH COUNSELOR PATIENT NAME: Angel Keating DATE: May 03, 2025 TIME: 11:17 AM PROGRESS Observed: 05/03/2025 8:17 AM Status: COMPLETED Source: [facility] HNO ID: [id number] Author: ALLIE RICE MD Service: Neurology ICU Author Type: Physician Type: Progress Notes Filed: 05/03/2025 08:18 Note Text: SERVICE DATE: 05/03/2025 SERVICE TIME: 8:17 AM NEURO ICU PROGRESS NOTE DATE OF ADMISSION: 05/01/2025 Subjective Hospital Course: 05/02: right hemiplegia worse today. Stat CTH with evolving L basal ganglia infarct. Pushed pressures >140 with no improvement in exam. cEEG with no seizures. Plt count 67 given 2 packs plts > 98 Bradycardic in the , cardiology c/s. MRI brain completed. 05/03: Spoke to neuro oncology - on board with current treatment - will follow up with him for furutre treatment and goals of care Events Since Last Note: None Objective BP 101/70 Pulse (!) 38 Temp 36.7 ?C (98.1 ?F) (Oral) Resp 19 Ht 177.8 cm (5' 10) Wt 96.2 kg (212 lb) SpO2 97% BMI 30.42 kg/m? Weight change: Neuro: Alert, PERRL, EOMI, VFF, right facial droop, mild dysarthria, expressive>receptive aphasia, follows commands, DOC/LE 5/5 sustains AG, RUE 2/5 some movements no AG, RLE 3/5 some AG but cannot sustain, diminished sensation on right GCS: Eyes: 4. Spontaneous Verbal: 3: Inappropriate words Motor: 6: Obeys Motor commands Total: 13 CV: reggie in the 30's Pulm: CTA unlabored on RA GI/: soft +BS Skin/Extremities: Edema- No Peripheral pulses- Present all extremities Wounds/Drsgs- right radial site c/d/i Breakdown- No Diagnostic tests reviewed for today's visit: Most recent labs and imaging results. Lines, Drains, and Airways Line Duration Arterial Line/Sheath 05/02/25 0930 Right Radial <1 day Drain Duration External Collection Device 05/03/25 0210 <1 day ICU Checklist Last Documented/Reviewed time: 05/03/2025 8:15 AM ICU Consent Complete?: No ICU Code Status History assess/Full code by default: No, active code status present A= Assess, Prevent, Manage Pain Pain adequately controlled?: Yes C= Choice of Sedation and Analgesia RASS at Goal?: Yes B= Both Spontaneous Awakening and Breathing Trials Ventilator: None D= Delirium: Assess, Prevent and Manage ICU Delirium Status: CAM Negative - no action required Sleep adequate?: Yes Restraint Status: None E= Early Mobility/Excercise ICU Mobility: ICU Mobility Goal: Head of bed 60 degrees, PT/OT consult ordered, Sit at edge of bed, Move to chair F= Family Engagement and Empowerment ICU plan of care visit at bedside in last 24 hours: Yes, Provider, RN, Patient/ designee ICU Disposition: ICU Disposition-POC Detail: To be determined Prevention: Line Status: Arterial line Mcdowell Status: None Pressure Injury Status: None GI/Stress Ulcer Prophylaxis: PPI Nutrition is at Goal: No, nutrition consult indicated VTE Prophylaxis: Chemoprophylaxis: Low Molecular Wt Heparin Mechanical Prophylaxis: Knee high SCD Assessment AND Plan 54 yo male with pmh GBM(left temporal lobe) s/p gross total resection(03/19/2023 and 05/27/2024 and chemotherapy), thrombocytopenia, seizures(vimpat), and anxiety who presents for right sided weakness and aphasia. iNIHSS 9 CTH - NAP CTA h/n - L M1 occlusion Outside the window for TNK EVT with Dr. Fan Active Hospital Problems as of 05/03/2025 Noted - Resolved POA Hospital Metabolic acidosis 05/01/2025 - Present Yes Hemiparesis due to acute cerebrovascular disease (HCC) 05/01/2025 - Present Yes History of seizure 05/01/2025 - Present Yes * (Principal) Arterial ischemic stroke, MCA (middle cerebral artery), left, acute (HCC) 05/01/2025 - Present Yes Hemiparesis of right dominant side (HCC) 05/01/2025 - Present Yes Aphasia due to acute cerebrovascular accident (CVA) (HCC) 05/01/2025 - Present Yes Bradycardia 05/01/2025 - Present Yes Dysarthria due to acute stroke (HCC) 05/01/2025 - Present Yes Cytotoxic cerebral edema (HCC) 05/02/2025 - Present Yes At risk for altered cerebral tissue perfusion due to history of stroke 05/02/2025 - Present Yes DNR (do not resuscitate) 05/02/2025 - Present Yes DNI (do not intubate) 05/02/2025 - Present Yes Hyperglycemia, drug-induced 05/02/2025 - Present Yes Class 1 obesity without serious comorbidity with body mass index (BMI) of 30.0 to 30.9 in adult 03/17/2023 - Present Yes Current Assessment AND Plan Life style modification At risk for seizures 03/20/2023 - Present Yes Current Assessment AND Plan Reggie on admission will switch home vimpat to keppra 1g BID Seizure precautions cEEG without any seizures Cerebral edema (HCC) 03/20/2023 - Present Yes Current Assessment AND Plan Steroids Normo natremia 2 to tumor and stroke combine now GBM (glioblastoma multiforme) (HCC) 04/07/2023 - Present Yes Current Assessment AND Plan Continue home steroids Foillow up with his neuro oncologist - he was updated Thrombocytopenia 10/13/2024 - Present Yes Current Assessment AND Plan 1 pack platelets prior to NIL Goal plt count >50 Monitor and transfuse if indicated Hematology c/s Acute ischemic left MCA stroke (HCC) 05/01/2025 - Present Yes Current Assessment AND Plan P/w right sided weakness and aphasia iNIHSS 9 CTH - NAP CTA h/n - L M1 occlusion Outside window for TNK S/p EVT with Dr. Fan Tici 0 Exam worsened 05/02 AM rCTH - evolving L BG stroke MRI brain w/wo (05/02) - Acute moderate sized infarct centered within left basal ganglia. Multiple additional punctate acute infarcts within left middle cerebral artery distribution - Interval decrease in intensity and size of patchy infiltrative enhancement within left basal ganglia and left mesial temporal lobe measuring compared to the 04/18/2025 examination. Comparison of T2 signal is limited in setting of new acute infarct in this region. This is compatible with patient's known glioblastoma - Subtle small hyperdensity on postcontrast imaging within right caudate. No corresponding T2 hyperintensity. This is favored to be artifactual - Postsurgical changes from a left-sided craniotomy with presumed resection cavity within left middle cranial fossa adjacent to anterior left temporal lobe. Small extra-axial collection along craniotomy site with extracranial collection, presumably postsurgical - Unchanged small left parafalcine the extra-axial mass, as detailed above. These are most compatible with meningioma Labs LDL 91 A1c 5.8 Plan Stroke neurology c/s NIL c/s Neuro checks q1h SBP goal 110-180 ASA 81mg daily Lipitor 40mg daily TTE Telemetry monitoring Diet Daily labs with PRN electrolyte replacements PT/OT/ST DVT ppx: SCDs, lovenox Stroke education Medication and Non-Pharmacologic VTE Prophylaxis/Anticoagulants Anticoagulant AND Antiplatelet Medications (From admission, onward) Start Dose Route Frequency Last Action Ordered Stop 05/02/25 1530 aspirin 81 mg chewable tab(s) 81 mg PO/FT DAILY Given, 05/02 1602 05/02/25 1520 -- 05/02/25 1530 enoxaparin 40 mg injection (LOVENOX) (enoxaparin injection (LOVENOX)) 40 mg SQ EVERY 24 HOURS Given, 05/02 1602 05/02/25 1520 -- 05/02/25 1500 activity - mobilize patient (hi,va) 05/01/25 1545 vte pharmacologic prophylaxis contraindicated (hi,va) 05/01/25 1545 pneumatic compression sleeve(s) ([place], [place]) VTE Prophylaxis: VTE prophylaxis appropriate Plan of care discussed with: Provider, RN, Patient STAFF COORDINATION OF CRITICAL CARE This patient has a high probability of sudden, clinically significant deterioration, which requires the highest level of physician preparedness to intervene urgently. I managed/supervized life or organ supporting interventions that required frequent physician assessment. I devoted my full attention to the direct care of this patient for the amount of time indicated below. Time I spent with family or surrogate(s) is included only if the patient was incapable of providing the necessary information or participating in medical decision making. Time devoted to teaching or to any procedures I billed separately is not included. Present on Admission: GBM (glioblastoma multiforme) (HCC) Thrombocytopenia Acute ischemic left MCA stroke (HCC) Hemiparesis of right dominant side (HCC) Aphasia due to acute cerebrovascular accident (CVA) (HCC) At risk for seizures Bradycardia Class 1 obesity without serious comorbidity with body mass index (BMI) of 30.0 to 30.9 in adult Metabolic acidosis Hemiparesis due to acute cerebrovascular disease (HCC) Dysarthria due to acute stroke (HCC) Cerebral edema (HCC) History of seizure Arterial ischemic stroke, MCA (middle cerebral artery), left, acute (HCC) Cytotoxic cerebral edema (HCC) At risk for altered cerebral tissue perfusion due to history of stroke DNR (do not resuscitate) DNI (do not intubate) Hyperglycemia, drug-induced Obesity, Class I, BMI 30-34.9 Sinus bradycardia SIGNATURE: Allie Rice MD PATIENT NAME: Angel Keating DATE: May 03, 2025 TIME: 8:17 AM ECHO WITH AGITATED SALINE CONTRAST Observed: 05/03/2025 8:14 AM Status: F Source: [facility] Echocardiography Report: Tra nsthoracic Echo [facility] Date of service: 05/03/2025 8:14:15 AM [facility] Ordering physician: KARLA HUITRON Exam indication: Stroke Technologist: Adolfo Moreno [facility] Interpreting physician: Kevin Montano MD PATIENT: Name: ANGEL KEATING : 1970 Age: 54 years Gender: M Primary rhythm: sinus. Height: 177.80 cm BSA: 2.18 m Weight: 96.16 kg BMI: 30.4 kg/m Heart rate 39 bpm Blood pressure 114/71 mmHg Technically difficult exam due to suboptimal positioning and body habitus. Agitated saline was administered to rule out shunt [clips: 75, 76]. Color Doppler was utilized to interrogate the cardiac valves assessed and spectral Doppler was utilized to determine the flow velocities and pressure gradients reported in this exam. MEASUREMENTS: Value Indexed Normal Max aortic dimension 3.8 cm Ao < 3.8 LV ID (diastole) 5.3 cm (2D) 2.42 cm/m LV ID (systole) 4.3 cm (2D) 1.97 cm/m IVS, leaflet tips 1.0 cm (2D) Posterior wall thickness 1.0 cm (2D) Left ventricular mass 200 g (2D) 92 g/m LV stroke volume 49 ml (2D 4-ch.) LV end diastolic volume 103 ml (2D 4-ch.) 47.2 ml/m 34<=EDVi<75 LV end systolic volume 54 ml (2D 4-ch.) 24.9 ml/m Ejection Fraction 47 % (2D 4-ch.) EF > 52 FINDINGS: LEFT VENTRICLE The left ventricle is normal in size. Left ventricular systolic function is mildly decreased regionally. Grade I left ventricular diastolic dysfunction. Mitral annular lateral E/e': 7.5. Mitral annular septal E/e': 6.1. Definity contrast used for endocardial border detection. Wall Motion: The apex is severely hypokinetic. The mid inferoseptal segment, apical septal segment, and apical inferior segment are mildly hypokinetic. All remaining scored segments are normal. RIGHT VENTRICLE The right ventricle is normal in size. Right ventricular systolic function is normal. RV systolic tissue Doppler velocity is 13.7 cm/s. Tricuspid annular displacement is 2.2 cm. Estimated right ventricular systolic pressure is not reported due to an insufficient tricuspid regurgitation signal. Estimated right atrial pressure is 3 mmHg based on IVC assessment. LEFT ATRIUM Unable to reliably measure LA volume due to technical limitations. RIGHT ATRIUM The right atrial cavity is normal in size. Inferior Vena Cava: The inferior vena cava appears normal measuring 2.0 cm. The vessel decreases greater than 50 percent with inspiration. MITRAL VALVE There is trace mitral valve regurgitation. There is mild thickening. The pressure half time is 82 msec. The peak mitral E/A ratio is 0.85. The average mitral E/e' ratio is 6.8. The mitral flow deceleration time is 282 msec. TRICUSPID VALVE The tricuspid valve leaflets are structurally normal. There is trace tricuspid valve regurgitation. AORTIC VALVE The aortic valve cusps are structurally normal. There is no aortic valve regurgitation. Tricuspid aortic valve. PULMONIC VALVE The pulmonic valve was not seen or not interrogated. There is trace pulmonic valve regurgitation. AORTA The visualized aorta is borderline dilated. Measurements - Aortic valve annulus 2.4 cm. Sinus: 3.8 cm. Sinotubular junction 3.7 cm. Mid ascending aorta 3.3 cm. INTERATRIAL SEPTUM There is no evidence of intracardiac shunting as detected by Doppler, agitated saline contrast and agitated saline contrast following the Valsalva maneuver. INTERVENTRICULAR SEPTUM The interventricular septum is normal. CONCLUSIONS: - Technically difficult exam due to suboptimal positioning and body habitus. - Exam indication: Stroke - The left ventricle is normal in size. Left ventricular systolic function is mildly decreased. EF = 47 5% (2D 4-ch.) Definity contrast used for endocardial border detection. Grade I left ventricular diastolic dysfunction. - The right ventricle is normal in size. Right ventricular systolic function is normal. - The LA appears grossly normal in limited views. - The visualized aorta is borderline dilated with a maximal dimension of 3.8 cm. - Agitated saline was administered to rule out shunt [clips: 75, 76]. There is no evidence of intracardiac shunting as detected by Doppler, agitated saline contrast and agitated saline contrast following the Valsalva maneuver. - Exam was compared with the prior CC echocardiographic exam performed on 11/03/2023([facility]). LV function has decreased. * * * Final * * * CC [employer] [facility] : [id number] CONSULT Observed: 05/03/2025 7:06 AM Status: COMPLETED Source: [facility] HNO ID: [id number] Author: HEIDI SWAN APRN.[facility] Service: Hematology/Oncology Author Type: Nurse Practitioner Type: Consults Filed: 05/03/2025 12:49 Note Text: Attestation signed by Guillermina Caputo MD at 05/04/2025 9:08 AM Attending Note I have reviewed the QI note and agree with assessment below. Patient was not seen. Thrombocytopenia- suspect secondary to recent lomustine therapy for GBM. S/p platelet transfusion on 05/01 and 05/02/25, with improvement in platelet count 34 -> 65 -> 98. Platelet count has since remained stable. If thrombocytopenia recurs, would check for DIC/ coagulopathy with PT, PTT and fibrinogen. Suspicion for hemolysis and microangiopathy is low at the current time. Stroke - per primary team/ neurology. GBM - to follow with outpatient neuro-oncologist Dr. Fraire on discharge. Thank you for this consult. Please call with questions. Guillermina Caputo MD Hematology and Oncology [facility] HEMATOLOGY / ONCOLOGY CONSULT After 3:30pm please call [phone] SERVICE DATE: 05/03/2025 SERVICE TIME: 1130 REASON FOR CONSULT: GBM and thrombocytopenia REQUESTING PHYSICIAN: Poli Herrera DO PRIMARY CARE PHYSICIAN: No primary care provider on file. Subjective Mr. Keating is a 54 year old male with significant PMH of GBM (left temporal lobe) s/p gross total resection (03/19/2023 and 05/27/2024), thrombocytopenia, seizures (on vimpat), and anxiety. Pt presented to [facility] on 05[facility]2025 with complaints of right sided weakness and worsening aphasia. On first presention to the ED NIH score initially 9 and then 11 on repeat exam. CTA showed left M1 occlusion. Pt was transferred to [facility] for neurointervention. 05/01 mechanical thrombectomy unsuccessful, left MCA M1 segment occlusion. 05/02 clinically worsening with right sided hemiplegia. Repeat CTH with concerning of evolving left basal ganglia infarction. Consulted for GBM and thrombocytopenia. Pt laying in bed in no acute distress. Denies pain or discomfort, nausea, vomiting, or chest pain. Expressive aphasia, right facial asymmetry, and right sided plegia. He states he can feel touch but unable to move right side extremities. Discussed his appointment with primary oncologist Dr Enriquez. Oncology History GBM (glioblastoma multiforme) (HCC) 04/07/2023 Initial Diagnosis GBM (glioblastoma multiforme) (HCC) 04/20/2023 - 02/08/2024 End of Therapy Last Treatment Date: 02/08/2024 Recent Lab Values: Recent Labs 03/28/25 0304 03/29/25 0353 03/30/25 0537 WBC 6.71 7.08 8.35 RBC 3.52 L 3.66 L 3.69 L Hemoglobin 12.1 L 12.6 L 12.7 L Hematocrit 34.0 L 35.8 L 35.3 L Platelet Count 127 L 129 L 117 L Future Treatment: No active treatment plan for patient. 04/05/2025 - Chemotherapy Treatment goal 2. Oncology Non-Curative Plan Name AMB BEVACIZUMAB 10 D1,15 - Q28D Status Active Start Date 04/05/2025 End Date 05/17/2025 (Planned) Provider Patricia Enriquez MD Chemotherapy bevacizumab-bvzr 900 mg in NaCl 0.9% 146 mL (ZIRABEV), 10 mg/kg/dose = 900 mg, INTRAVENOUS, ONCE, 1 of 2 cycles Administration: 900 mg (04/05/2025), 900 mg (04/19/2025) 04/14/2025 - Supportive Treatment Treatment Summary Treatment goal 3. Not Applicable Plan Name AMB ROMIPLOSTIM D1,8,15,22,29,35,43,57, 64, 71, 78 - Q84D Status Active Start Date 04/14/2025 End Date 03/12/2026 (Planned) Provider Patricia Enriquez MD Copied from Dr Patricia Enriquez office visit note 04/20/2025 TREATMENT HISTORY Gross total resection [03/19/2023] [facility] Dr. Evans MGMT unmethylated Glioblastoma. L temporal GCAR AGILE, randomized to [id number] IV twice weekly arm + Standard concurrent chemotherapy and radiation (04/20- 05/29/2023) [facility] Dr. Joyce and Dr. Enriquez Adjuvant temozolomide PO D1-5 q 28 days C1 07/01/23, will start 07/03 150mg/m2 C2 07/27/23 C3 08/31/23 C4 09/21/23 C5 10/26/23 C6 11/23/23 C7 12/28/23 STOP ADJ TMZ as the clinical; trial calls for up to 6 cycles. For some reason the patient had an extra cycle of Adj TMZ. Adjuvant [id number] during Maintenance: Cycle 7 Week 1 - infusions on 12/14/2023 (D1) and 12/17/2023 (D4) Cycle 7 Week 2 - infusions on 12/21/2023 (D8) and 12/24/2023 (D11) Cycle 7 Week 3 - infusions on 12/28/2023 (D15) and 12/31/2023 (D18) Cycle 7 Week 4 - infusions on 01/05/2024 (D22) and 01/08/2024 (D25) Cycle 8 Week 5 - infusions on 01/11/2024 and 01/14/2024 02/08/2024: MRI shows progression 02/08/24 BTB Referrals to se Dr. Evans for possible surgery. If surgery offered, he can be enrolled in CASE 3322 clinical trial with methimazole + chemo. 02/18/24: Dr Evans recommended NO surgery. 02/26/24 Lomustine 90mg/m2 C#1 02/25-04/08/24 04/12/24 Tumor progression, increased CBV 04/14/2024 BTB Referrals to se Dr. Evans for possible surgery. The patient is also eligible, for CASE 3322 clinical trial with methimazole + chemo. 04/28/2024 Jose Evans MD since the patient, and recommended surgery. 04/28/2024 clinical trials team, saw the patient, the patient is eligible, for for CASE 3322 clinical trial with methimazole + chemo. Patient signed consent. Treatment plan: Pre-operative treatment Phase -Methimazole - Pre-Op period: 05/24/2024 to 05/27/2024 (last dose is DAY of surgery) -Dose level 2 (25 mg daily) Surgical resection 05/27/[address] 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 C1D1 (10-28 days after surgery) -Scheduled for 06/16/2024 (20 days post op) -Methimazole - Post-Op period: 05/27/2024- TBD -Dose level 2 (25 mg judy C1D1 lomustine 110 mg/m2 - 07/28/24 - NOTE DATE ENTERED IN ERROR - PATIENT DID NOT TAKE CHEMO ON 08/07/2024 C2D1 lomustine -- planned for 09/07/24 08/22/2024 Brain MR - new enhancing nodules. 08/29/2024 BTB recommend to continue on lomustine, and SRS to enhancing nodules, which was completed. CORRECTED DATES OF CHEMO: C1D1 JUN 28, 2024 09/05/2024 NOTE: RE; DISCREPANCY ON LOMUSTINE CYCLE. The patient recalled that he had taken Lomustine cycle No 1 [after 2nd surgery (05/27/2024)] on ~mid June 2024 and that he was due for cycle No 2 for early August 2024 We reviewed the pharmacy records and indeed the patient took cycle No 1 of Lomustine on 06/28/25, and he was due for next cycle on ~Aug 12, 2024. Pharmacy note confirm that lomustine was delivered. Although per patient knowledge that he needed to start his chemo, cycle No 2 of lomustine on 1st week of Aug 2024 - however he did not started as he was instructed that the chemo was to start not until Sep 07, 2024. Hence the patient had not started his chemo. 09/05/2024: The patient brought lomustine capsules, cycle No 2, as he noted - issued on 08/05/2024 - which should have started on Aug 12, 2024. The reason for the discrepancy - likely entry data error of when he took cycle No 1 of lomustine - erroneously was entered as 07/28/2025. Lomustine 90mg/m2 C#2 09/05-10/17/24 September 19, 2024 - September 23, 2024 Dr Joyce SRS-GK: AREA TREATED: 1) Lt Temp 2) LT Ant Falx 3) Lt Sup Front 4) Lt Tent 5) Lt Temp 10/12/2024 MRI BRAIN WO/W Foci of nodular enhancement along the left temporal resection cavity are similar compared to 09/19/2024 (increased compared to 08/22/2024). Increased nonenhancing T2/FLAIR hyperintensity within the left temporal lobe compared to 08/22/2024. Lomustine 90mg/m2 C#3 10/21-12/02/24 11/16/2024 Brain MR. 1- CONTINUED GROWTH OF 2 NODULAR FOCI AT THE DEPTH OF LEFT TEMPORAL RESECTION CAVITY, DETAILED. THE LARGER SHOWS MODERATELY INCREASED CBV, SUSPICIOUS FOR PROGRESSION. 2. STABLE EXTRA-AXIAL ENHANCING LESION OVER LEFT MEDIAL FRONTAL LOBE, WITH REDUCED SIZE OF MORE LATERAL EXTRA-AXIAL LESION 3. REDUCED LEFT FRONTAL EPIDURAL HEMATOMA 4. NO NEW ACUTE PROCESS OR SUSPICIOUS ENHANCEMENT NOTE: Had MRI sooner than scheduled (11/30/2024), as the MR center called him asking if he wanted to have his MR sooner, as someone had canceled. Lomustine 90mg/m2 C#4 12/11/24-01/22/25 01/17/2025 Brain MR Evolving post therapy changes with progressive nodular enhancement and T2 signal abnormality in the medial left temporal lobe and insula, suspicious for progressive malignancy. 01/17/2025 Clinic visit: MRI changes probably treatment effect, recommend continue current treatment, lomustine. Lomustine 90mg/m2 C#5 01/22/25-03/05/25 01/24/2025: I reviewed the patients case/images with his oncology team, including Indu Blanchard his Radiation Oncologist, and with Dr. Evans, his neurosurgeon, and they agree with the approach to continue on the current management, that is lomustine,a and continue imaging surveillance. No need for any additional intervention at this juncture. Patricia Enriquez MD 02/28/2025 Brain MR Interval in size of nodular enhancement along the medial aspect of the resection cavity and significant interval increase in confluent T2/FLAIR hyperintensity. No elevated cerebral blood volume on the perfusion sequence to suggest neovascularity. Recommend short-term interval follow-up to exclude progressive disease. 03/02/2025 Clinic visit: MRI changes probably treatment effect, recommend continue current treatment, lomustine. Lomustine 90mg/m2 C#01/13 03/09-04/20/25 03/24/2025 - 03/31/2025 Admission (7 days) [facility]; Admitted due to progressive right sided arm/leg weakness, and aphasia, mainly word finding difficulty. Improved on steroids. - 03/25/2025 Brain MR and increasing enhancing small lesions adjacent to the left half of the falx compatible with progressive disease. Interval increase in size of the enhancement in the left mesial temporal lobe and left intralenticular region with increased vasogenic edema. However no elevated CBV associated with this area. No evidence of leptomeningeal disease. -Seen by Dr. Evans, patient's neurosurgeon, recommended no surgery -Rad Onc also saw patient, recommend no radiation 03/27/2025 Brain Tumor Board: changes seen on MR 03/25/2025 favor treatment effect (tumor cannot be excluded with certainty). Agreed with bevacizumab (edwin), and to continue lomustine. Note: patient pricila completed 6/6 cycle of Lomustine (CCNU), 03/09-04/20/25 04/05/2025 1st infusion. bevacizumab (edwin) 10 mg/Kg every 2 weeks. Eastern Cooperative Oncology Group (ECOG): 3: Capable of only limited selfcare, confined to bed or chair more than 50% of waking hours. FUNCTIONAL STATUS: Limited most or all of the time (uses scooter, mobility device) PAST MEDICAL HISTORY Diagnosis Date At risk for seizures 03/19/2023 due to left temporal glioblastoma GBM (glioblastoma multiforme) (HCC) 03/19/2023 WHO Grade 4 GBM; IDH1 R132H negative (wildtype); ATRX retained (wildtype); BRAF V600E negative (wildtype); p53 strong up to 40%; Ki67 up to 25%, MGMT unmethylated PAST SURGICAL HISTORY Procedure Laterality Date APPENDECTOMY 1976 removed as part of internal bleeding due to trauma COLONOSCOPY FLX DX W/COLLJ SPEC WHEN PFRMD Colonoscopy ESOPHAGOGASTRODUODENOSCOPY TRANSORAL DIAGNOSTIC EGD EXCIS SUPRATENT BRAIN TUMOR 03/19/2023 Left-sided craniotomy for temporal mass resection by Dr. Evans; path = GBM ORTHOPEDICS SURGERY HX 1996 knee surgery SHX CRANIOTOMY Left 03/19/2023 FAMILY HISTORY Problem Relation Age of Onset Diabetes Father Coronary Artery Disease Father Stroke Father Breast Cancer Mother None Sister Anesthesia Problems No Family History SOCIAL HISTORY[1] Prescriptions Prior to Admission[2] Current Facility-Administered Medications Medication Dose Route Frequency senna-docusate 8.6-50 mg 1 tablet (SENNA-S) 1 tablet ORAL/FEEDING TUBE BID bisacodyl 10 mg suppository (DULCOLAX) 10 mg RECTAL DAILY PRN ondansetron (PF) 4 mg injection (ZOFRAN) 4 mg INTRAVENOUS q 4 H PRN NaCl 0.9% iv flush bag 20 mL INTRAVENOUS PRN NaCl 0.9% iv infusion 75 mL/hr INTRAVENOUS CONTINUOUS hydrALAZINE 5-10 mg injection (APRESOLINE) 5-10 mg INTRAVENOUS q 15 MIN PRN acetaminophen 650 mg tab(s) (TYLENOL) 650 mg ORAL/FEEDING TUBE q 4 H PRN Or acetaminophen 650 mg CUP (TYLENOL) 650 mg ORAL/FEEDING TUBE q 4 H PRN Or acetaminophen 650 mg suppository (TYLENOL) 650 mg RECTAL q 4 H PRN atorvastatin 40 mg tab(s) (LIPITOR) 40 mg ORAL/FEEDING TUBE AT BEDTIME sodium chloride 0.9 % (flush) 2-10 mL (BD POSIFLUSH) 2-10 mL INTRAVENOUS DIRECTED PRN And perflutren lipid microspheres 1.1 mg/mL 1.3 mL injection (DEFINITY) 1.3 mL INTRAVENOUS DIRECTED PRN levETIRAcetam 1,000 mg tab(s) (KEPPRA) 1,000 mg ORAL/FEEDING TUBE BID dexAMETHasone 10 mg tab(s) (DECADRON) 10 mg ORAL/FEEDING TUBE DAILY potassium chloride 20-40 mEq oral powder (KLOR-CON) 20-40 mEq ORAL/FEEDING TUBE PRN Or potassium chloride iv piggyback 20 mEq/100 mL 20 mEq INTRAVENOUS PRN sodium phosphate 30 mmol in D5W 250 mL 30 mmol INTRAVENOUS PRN(NO DISPENSE) Or sodium phosphate 45 mmol in D5W 250 mL 45 mmol INTRAVENOUS PRN(NO DISPENSE) magnesium sulfate iv piggyback in sterile water 2 g 50 mL 2 g INTRAVENOUS PRN calcium gluconate iv piggyback 2 g in NaCl (iso-osmotic) 100 mL 2 g INTRAVENOUS PRN(NO DISPENSE) iv contrast (radiology procedure) INTRAVENOUS DIRECTED PRN DOPamine iv infusion 800 mg/250 mL D5W 2.5-20 mcg/kg/min INTRAVENOUS CONTINUOUS atovaquone 1,500 mg oral liquid (MEPRON) 1,500 mg ORAL DAILY WITH BREAKFAST valACYclovir 500 mg tab(s) (VALTREX) 500 mg ORAL DAILY dextrose 15 gram/32 mL 15 g (TRUEPLUS) 15 g ORAL PRN Or glucagon 1 mg injection 1 mg INTRAMUSCULAR PRN Or dextrose 10% iv bolus 12.5 g INTRAVENOUS PRN insulin regular human injection (short acting) SUBCUTANEOUS w MEALS AND HS Allergies As of Date: 05/01/2025 (No Known Allergies) Fully Assessed 05/01/2025 COMPLETE REVIEW OF SYSTEMS: Negative unless otherwise indicated in HPI Objective PHYSICAL EXAM: Physical Exam Performed: GENERAL: Alert, no distress, cooperative SKIN: warm and dry LUNGS: Lungs clear to auscultation, Good diaphragmatic excursion, on room air unlabored CARDIAC: bradycardia regular rhythm ABDOMEN: Soft, nontender and non-distended, bowel sounds present EXTREMITIES: unable to move right side upper/lower extremity BP 128/77 Pulse 36 Temp (Src) 98.1 (Oral) Resp 15 Ht 5' 10 (1.78m) Wt 212 lb (96.2kg) SpO2 98% BMI 30.42 kg/(m2). O2 Therapy: Room Air DATA: Diagnostic tests reviewed for today's visit: Most recent labs and imaging results. LABORATORY DATA Recent Labs 05/02/25 1128 05/02/2531105/01/25 1630 WBC 5.78 5.58 5.15 RBC 3.05* 3.16* 3.50* HB 10.4* 10.9* 12.2* HCT 30.1* 31.2* 35.2* PLT 98* 67* 65* MCV 98.7 98.7 100.6* MCH 34.1* 34.5* 34.9* MCHC 34.6 34.9 34.7 RDWCV 15.6* 15.4* 15.8* MPV 9.7 10.3 11.2 NEUTP -- -- 84.0 ABSNEUT -- -- 4.33 LYMPHP -- -- 6.6 MONOP -- -- 4.3 EODINP -- -- 0.0 BASOP -- -- 0.4 ABSMONO -- -- 0.22 ABSEOSIN -- -- <0.03 ABSBASO -- -- <0.03 Recent Labs 05/02/2531105/01/25 1630 NA 138 141 K 4.1 3.7 CHLOR 105 107 CO2 21* 22 CREAT 0.77 0.78 BUN 23 23 GLUC 156* 138* P 3.0 3.6 TPROT -- 5.7* ALB -- 3.1* MG 2.0 2.0 CA 8.1* 8.2* ALKPHOS -- 78 TBILI -- 0.5 AST -- 17 ALT -- 23 PTSEC -- 11.0 INR -- 1.0 APTT -- 24.9 CT 05/01: - no appreciable acute process CTA 05/01: - Left M1 occlusion rCTH 05/02 - There is an evolving cerebrovascular accident involving the left putamen, globus pallidus, caudate, and deep white matter of the left frontal lobe. -There is no evidence of hemorrhage. There are postoperative changes in the left temporal lobe associated with resection of glioblastoma. MRI 05/02: - Acute moderate sized infarct centered within left basal ganglia. - Multiple additional punctate acute infarcts within left middle cerebral artery distribution. This is new since 04/18/2025. - Interval decrease in intensity and size of patchy infiltrative enhancement within left basal ganglia and left mesial temporal lobe measuring compared to the 04/18/2025 examination. Comparison of T2 signal is limited in setting of new acute infarct in this region. This is compatible with patient's known glioblastoma. Continued attention on follow-up imaging is recommended. - Subtle small hyperdensity on postcontrast imaging within right caudate. No corresponding T2 hyperintensity. This is favored to be artifactual. Attention on follow-up imaging is recommended given patient's history. - Postsurgical changes from a left-sided craniotomy with presumed resection cavity within left middle cranial fossa adjacent to anterior left temporal lobe. Small extra-axial collection along craniotomy site with extracranial collection, presumably postsurgical. - Unchanged small left parafalcine the extra-axial mass, as detailed above. These are most compatible with meningioma. Echo 05/03: EF 47% Unable to measure LA, but appears grossly normal No evidence of intracardiac shunting Lines, Drains, and Airways Line Duration Arterial Line/Sheath 05/02/25 0930 Right Radial <1 day The following problems are present on admission at this time: Coagulopathy Weight loss Cerebrovascular disease Malignant solid tumor Neurologic disorder Obesity Paralysis Continue current outpatient treatment plan and current medications for these conditions, except where otherwise noted. Assessment AND Plan GBM - Follows with Dr Enriquez neuro-oncologist - completed 6/6 cycles of Lomustine 03/09/2025 - 04/20/2025 - see treatment summary from Dr Enriquez's note on 04/20/2025 - follow up appointment 05/[address] Enriquez to discuss further management - no oncology needs at this time Acute Ischemic Stroke, left MCA - expressive aphasia dysarthria and facial droop - per neuro notes etiology is suspected to be secondary to known GBM and localized mass effect causing turbulent blood flow in associated vessels - Will need to follow up with neurology outpatient - neurology following/managing Thank you kindly for allowing us to participate in the care of this patient. Hematology Oncology will sign off as a consulting service. Please feel free to reach out if you have questions. Staff with Dr Guillermina Caputo. Portions of this note including ROS, impression/plan, and examination may have been copied forward as to provide important historical information essential in contributing to medical decision making. Documentation has been reviewed and edited as necessary to support clinical decision making for today's visit and to reflect my own independent evaluation of this patient May 03, 2025. The time of this note does not reflect the time I saw the patient but the time that this note was written. SIGNATURE: Heidi Swan APRN.CNP PATIENT NAME: Angel Keating DATE: May 03, 2025 TIME: 2:12 PM Available M-F 7-3:30, if after hours, holidays, or on weekends please call answering service at [phone] [1] Social History Tobacco Use Smoking status: Former Current packs/day: 1.00 Average packs/day: 1 pack/day for 4.0 years (4.0 ttl pk-yrs) Types: Cigarettes, Cigars Smokeless tobacco: Never Vaping Use Vaping status: Never Used Substance Use Topics Alcohol use: Not Currently Comment: three beers a month - per pt [id number] Drug use: Never [2] modafinil (PROVIGIL) 100 mg tablet, Take 1 tablet in the morning. If needed take another tablet at 2 pm, Disp: 60 tablet, Rfl: 2 dexAMETHasone (DECADRON) 2 mg tablet, decrease to 10 mg daily starting on 04/06, Disp: 50 tablet, Rfl: 2 Miscellaneous Medical Supply kit, Outpatient physical therapy, Disp: 1 kit, Rfl: 11 atovaquone (MEPRON) 750 mg/5 mL oral liquid, Take 10 mL by mouth daily with breakfast., Disp: 300 mL, Rfl: 1 dexAMETHasone (DECADRON) 6 mg tablet, Take 1 tablet by mouth two times a day with meals., Disp: 60 tablet, Rfl: 1 lacosamide (VIMPAT) 150 mg tab, Take 1 tablet by mouth two times a day for 180 days., Disp: 180 tablet, Rfl: 1 valACYclovir (VALTREX) 500 mg tablet, Take 1 tablet by mouth once daily., Disp: 30 tablet, Rfl: 2 traZODone (DESYREL) 50 mg tablet, TAKE 1 TABLET BY MOUTH EVERYDAY AT BEDTIME (Patient taking differently: TAKE 1 TABLET BY MOUTH EVERYDAY AT BEDTIME), Disp: 30 tablet, Rfl: [address] (PROTONIX) 40 mg tablet, Take 1 tablet by mouth once daily., Disp: 30 tablet, Rfl: 2 ondansetron (ZOFRAN) 8 mg tablet, Take one tablet by mouth on an empty stomach in the evening one hour prior to chemo. Then take one tablet 24 hours after chemo. May repeat dose every 8-12 hours if needed to prevent nausea, Disp: 30 tablet, Rfl: 2 midazolam (NAYZILAM) 5 mg/spray (0.1 mL) nasal spray, Use 1 [place] in the nose as needed for up to 10 days. May repeat dose in alternate nostril after 10 minutes based on response and tolerability., Disp: 4 Each, Rfl: 2 acetaminophen (TYLENOL) 325 mg tablet, 2 tablets by ORAL/FEEDING TUBE route every 4 hours as needed for pain., Disp: , Rfl: CBC PNL BLD AUTO Collected: 05/03/2025 3:07 AM Statu s: F Source: [facility] Order Comment: Specimen Type : BLOOD SPECIMEN Ordering Facility: [facility] Address: [address] [place] [address] TYPE CODE TESTS RESULT OUT OF RANGE REFERENCE UNITS LAB 6690-2(LOINC) WBC # Bld Auto 4.87 3.70-11.00 k/uL LAB 789-8(LOINC) RBC # Bld Auto 2.97 Low 4.20-6.00 m/ uL LAB 718-7(LOINC) Hgb Bld-mCnc 10.4 Low 13.0-17.0 g/dL LAB 4544-3(LOINC) Hct VFr Bld Auto 29.2 Low 39.0-51.0 % LAB 787-2(LOINC) MCV RBC Auto 98.3 80.0-100.0 fL LAB 785-6(LOINC) MCH RBC Qn Auto 35.0 High 26.0-34.0 pg LAB 786-4(LOINC) MCHC RBC Auto-mCnc 35.6 30.5-36.0 g/dL LAB 19846-5(LOINC) RDW RBC-Rto 15.9 High 11.5-15.0 % LAB 777-3(LOINC) Platelet # Bld Auto 96 Low 150-400 k/uL LAB 98458-0([facility]) PMV Bld Auto 10.0 9.0-12.7 fL LAB 771-6([facility]) nRBC # Bld Auto 0.06 High <0.01 k/uL Performed By: #### 35324-6 # ### [facility] CLIA [id number] [address] [place] BAS METAB 2000 PNL SERPL Collected: 3:07 AM Status: F Source: [facility] Order Comment: Specimen Type : BLOOD SPECIMEN Ordering Facility: [facility] Address: [address] [place] [address] TYPE CODE TESTS RESULT OUT OF RANGE REFERENCE UNITS LAB 2345-7([facility]) Glucose SerPl-mCnc 99 74-99 mg/dL Result Comment: The [place] Diabetes Association (ADA) provides guidance for cutoff values for fasting glucose and random glucose. The ADA defines fasting as no caloric intake for at least 8 hours. Fasting plasma glucose results between 100 to 125 mg/dL indicate increased risk for diabetes (prediabetes). Fasting plasma glucose results greater than or equal to 126 mg/dL meet the criteria for diagnosis of diabetes. In the absence of unequivocal hyperglycemia, results should be confirmed by repeat testing. In a patient with classic symptoms of hyperglycemia or hyperglycemic crisis, random plasma glucose results greater than or equal to 200 mg/dL meet the criteria for diagnosis of diabetes. Reference: Standards of Medical Care in Diabetes 2016, [place] Diabetes Association. Diabetes Care. 2016.39(Suppl 1). LAB 3094-0(LOINC) BUN SerPl-mCnc 25 High 9-24 mg/dL LAB 2160-0(LOINC) Creat SerPl-mCnc 0.80 0.73-1.22 mg/dL LAB 2951-2(LOINC) Sodium SerPl-sCnc 140 136-144 mmol/L LAB 2823-3(LOINC) Potassium SerPl-sCnc 3.6 Low 3.7-5.1 mmol/L LAB 2075-0(LOINC) Chloride SerPl-sCnc 110 High 98-107 mmol/L LAB 2028-9(LOINC) CO2 SerPl-sCnc 21 Low 22-30 mmol/L LAB 1863-0(LOINC) Anion Gap4 SerPl-sCnc 9 8-15 mmol/L LAB 91781-8(LOINC) Calcium SerPl-mCnc 8.0 Low 8.5-10.2 mg/dL LAB 81501-0(LOINC) eGFRcr SerPlBld CKD-EPI 2020 104 >=60 mL/min/1. 73m??? Result Comment: Estimated Gl omerular Filtration Rate (eGFR) is calculated using the 2020 CKD-EPI creatinine equation. This equation utilizes serum creatinine, sex, and age as parameters. The creatinine assay has traceable calibration to isotope dilution-mass spectrometry. Refer to KDIGO guidelines for clinical interpretation. In patients with unstable renal function, e.g. those with acute kidney injury, the eGFR may not accurately reflect actual GFR. Performed By: #### 68917-2, 2777-1, 67458-8 #### [facility] CLIA [id number] [address] [place] SER[place]-MCNC Collected: 05/03/2025 3:07 AM S tatus: F Source: [facility] Order Comment: Specimen Type : BLOOD SPECIMEN Ordering Facility: [facility] Address: [address] [place] [address] TYPE CODE TESTS RESULT OUT OF RANGE REFERENCE UNITS LAB 89024-5([facility]) Magnesium SerPl-mCnc 2.1 1.7-2.3 mg/dL Performed By: #### 07752-5, 2777-1, 25301-2 #### [facility] CLIA [id number] [address] [place] [facility] PHOSPHATE SERPL-MCNC Collected: 05/03/2025 3:07 AM S tatus: F Source: [facility] Order Comment: Specimen Type : BLOOD SPECIMEN Ordering Facility: [facility] Address: [address] [place] [id number] TYPE CODE TESTS RESULT OUT OF RANGE REFERENCE UNITS LAB 2777-1(LOINC) Phosphate SerPl-mCnc 3.0 2.7-4.8 mg/dL Performed By: #### 32767-9, 2777-1, 40740-0 #### [facility] CLIA [id number] [address] [place] [id number] [place] [facility] CONSULT Observed: 05/02/2025 4:21 PM Status: COMPLETED Source: [facility] HNO ID: [id number] Author: TANNER ATKINSON MD Service: Cardiovascular Disease Author Type: Physician Type: Consults Filed: 05/02/2025 16:36 Note Text: CONSULT: CARDIOLOGY SERVICE SERVICE DATE: 05/02/2025 CONSULTING PHYSICIAN: Tanner Atkinson PCP: No primary care provider on file. ATTENDING: Jonny Fan MD REASON FOR CONSULT: Sinus bradycardia Subjective CHIEF COMPLAINT: Acute stroke due to ischemia (HCC) [I63.9] Arterial ischemic stroke, MCA (middle cerebral artery), left, acute (HCC) [I63.512] HISTORY OF PRESENT ILLNESS: Mr. 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 CT scan done this morning revealed features in keeping with left hemispheric CVA. Seen at the bedside with his mom. He denies any ongoing complaints at the present time. He still has dense right-sided hemiparesis. He was consulted because of sinus bradycardia with heart rates 30s. Denies chest pain, shortness of breath, dizziness, abdominal or lower leg swelling. Electronic medical records indicates he has had chronic sinus bradycardia. He is not on any AV joseluis blocking agents. PAST MEDICAL HISTORY Diagnosis Date At risk for seizures 03/19/2023 due to left temporal glioblastoma GBM (glioblastoma multiforme) (HCC) 03/19/2023 WHO Grade 4 GBM; IDH1 R132H negative (wildtype); ATRX retained (wildtype); BRAF V600E negative (wildtype); p53 strong up to 40%; Ki67 up to 25%, MGMT unmethylated PAST SURGICAL HISTORY Procedure Laterality Date APPENDECTOMY 1976 removed as part of internal bleeding due to trauma COLONOSCOPY FLX DX W/COLLJ SPEC WHEN PFRMD Colonoscopy ESOPHAGOGASTRODUODENOSCOPY TRANSORAL DIAGNOSTIC EGD EXCIS SUPRATENT BRAIN TUMOR 03/19/2023 Left-sided craniotomy for temporal mass resection by Dr. Evans; path = GBM ORTHOPEDICS SURGERY HX 1996 knee surgery SHX CRANIOTOMY Left 03/19/2023 FAMILY HISTORY Problem Relation Age of Onset Diabetes Father Coronary Artery Disease Father Stroke Father Breast Cancer Mother None Sister Anesthesia Problems No Family History SOCIAL HISTORY[1] Prior to Admission Medications Prescriptions Last Dose Informant Patient Reported? Taking? Miscellaneous Medical Supply kit No No Sig: Outpatient physical therapy acetaminophen (TYLENOL) 325 mg tablet Mother No Yes Si tablets by ORAL/FEEDING TUBE route every 4 hours as needed for pain. atovaquone (MEPRON) 750 mg/5 mL oral liquid No Yes Sig: Take 10 mL by mouth daily with breakfast. dexAMETHasone (DECADRON) 2 mg tablet No Yes Sig: decrease to 10 mg daily starting on 04/06 dexAMETHasone (DECADRON) 6 mg tablet Unknown No No Sig: Take 1 tablet by mouth two times a day with meals. lacosamide (VIMPAT) 150 mg tab No Yes Sig: Take 1 tablet by mouth two times a day for 180 days. modafinil (PROVIGIL) 100 mg tablet No Yes Sig: Take 1 tablet in the morning. If needed take another tablet at 2 pm valACYclovir (VALTREX) 500 mg tablet Unknown No No Sig: Take 1 tablet by mouth once daily. Facility-Administered Medications: None Current Facility-Administered Medications Medication Dose Route Frequency senna-docusate 8.6-50 mg 1 tablet (SENNA-S) 1 tablet ORAL/FEEDING TUBE BID bisacodyl 10 mg suppository (DULCOLAX) 10 mg RECTAL DAILY PRN ondansetron (PF) 4 mg injection (ZOFRAN) 4 mg INTRAVENOUS q 4 H PRN NaCl 0.9% iv flush bag 20 mL INTRAVENOUS PRN NaCl 0.9% iv infusion 75 mL/hr INTRAVENOUS CONTINUOUS hydrALAZINE 5-10 mg injection (APRESOLINE) 5-10 mg INTRAVENOUS q 15 MIN PRN acetaminophen 650 mg tab(s) (TYLENOL) 650 mg ORAL/FEEDING TUBE q 4 H PRN Or acetaminophen 650 mg CUP (TYLENOL) 650 mg ORAL/FEEDING TUBE q 4 H PRN Or acetaminophen 650 mg suppository (TYLENOL) 650 mg RECTAL q 4 H PRN atorvastatin 40 mg tab(s) (LIPITOR) 40 mg ORAL/FEEDING TUBE AT BEDTIME sodium chloride 0.9 % (flush) 2-10 mL (BD POSIFLUSH) 2-10 mL INTRAVENOUS DIRECTED PRN And perflutren lipid microspheres 1.1 mg/mL 1.3 mL injection (DEFINITY) 1.3 mL INTRAVENOUS DIRECTED PRN levETIRAcetam 1,000 mg tab(s) (KEPPRA) 1,000 mg ORAL/FEEDING TUBE BID dexAMETHasone 10 mg tab(s) (DECADRON) 10 mg ORAL/FEEDING TUBE DAILY potassium chloride 20-40 mEq oral powder (KLOR-CON) 20-40 mEq ORAL/FEEDING TUBE PRN Or potassium chloride iv piggyback 20 mEq/100 mL 20 mEq INTRAVENOUS PRN sodium phosphate 30 mmol in D5W 250 mL 30 mmol INTRAVENOUS PRN(NO DISPENSE) Or sodium phosphate 45 mmol in D5W 250 mL 45 mmol INTRAVENOUS PRN(NO DISPENSE) magnesium sulfate iv piggyback in sterile water 2 g 50 mL 2 g INTRAVENOUS PRN calcium gluconate iv piggyback 2 g in NaCl (iso-osmotic) 100 mL 2 g INTRAVENOUS PRN(NO DISPENSE) iv contrast (radiology procedure) INTRAVENOUS DIRECTED PRN DOPamine iv infusion 800 mg/250 mL D5W 2.5-20 mcg/kg/min INTRAVENOUS CONTINUOUS atovaquone 1,500 mg oral liquid (MEPRON) 1,500 mg ORAL DAILY WITH BREAKFAST valACYclovir 500 mg tab(s) (VALTREX) 500 mg ORAL DAILY dextrose 15 gram/32 mL 15 g (TRUEPLUS) 15 g ORAL PRN Or glucagon 1 mg injection 1 mg INTRAMUSCULAR PRN Or dextrose 10% iv bolus 12.5 g INTRAVENOUS PRN insulin regular human injection (short acting) SUBCUTANEOUS w MEALS AND HS aspirin 81 mg chewable tab(s) 81 mg ORAL/FEEDING TUBE DAILY enoxaparin 40 mg injection (LOVENOX) 40 mg SUBCUTANEOUS q 24 HR ALLERGIES No Known Allergies Review of Systems: General: No weight loss, malaise, fevers, chills, or night sweats Respiratory: Negative for cough, shortness of breath at rest or on exertion, wheezing Cardiac: Negative history of chest pain on exertion, dyspnea on exertion, orthopnea, paroxysmal nocturnal dyspnea, lower extremity edema, presyncope, syncope, or palpitations Physical Examination: 05/02/25 1100 05/02/25 1102 05/02/25 1300 05/02/25 1400 BP: 153/87 Pulse: (!) 34 (!) 32 (!) 35 Resp: 18 12 16 Temp: 36.7 ?C (98.1 ?F) TempSrc: Oral SpO2: 99% 98% 98% Weight: Height: Patient Vitals for the past 12 hrs: BP Temp Temp src Pulse Resp SpO2 05/02/25 1400 -- -- -- (!) 35 16 98 % 05/02/25 1300 153/87 -- -- (!) 32 12 98 % 05/02/25 1102 -- 36.7 ?C (98.1 ?F) Oral -- -- -- 05/02/25 1100 -- -- -- (!) 34 18 99 % 05/02/25 1000 136/81 -- -- (!) 44 19 96 % 05/02/25 0900 151/85 -- -- (!) 38 13 98 % 05/02/25 0813 128/77 36.6 ?C (97.8 ?F) -- (!) 36 15 98 % 05/02/25 0733 99/63 36.8 ?C (98.2 ?F) Oral (!) 36 18 97 % 05/02/25 0652 104/64 36.5 ?C (97.7 ?F) Oral (!) 41 18 95 % 05/02/25 0637 98/66 36.6 ?C (97.9 ?F) -- (!) 45 17 -- 05/02/25 0600 95/61 -- -- (!) 42 15 96 % 05/02/25 0545 99/63 36.7 ?C (98.1 ?F) -- (!) 43 15 96 % 05/02/25 0500 114/66 -- -- (!) 50 18 97 % General appearance: Normal, alert, appears to be in no acute distress, cooperative Head: Normocephalic, atraumatic HEENT: No JVD Lungs: CTAB; no rales, rhonchi, or wheezes Heart: RRR; normal S1/S2; bradycardia,no murmurs/gallops/rubs Extremities: No lower extremity edema bilaterally Neurologic: Grossly nonfocal DATA: Past 72 Hour Labs: Recent Labs 05/02/25 1128 05/02/25 0312 05/01/25 1630 NA -- 138 141 K -- 4.1 3.7 CA -- 8.1* 8.2* MG -- 2.0 2.0 BUN -- 23 CREAT -- 0.77 0.78 GLUC -- 156* 138* WBC 5.78 5.58 5.15 HB 10.4* 10.9* 12.2* PLT 98* 67* 65* ALB -- -- 3.1* ALKPHOS -- -- 78 TBILI -- -- 0.5 AST -- -- 17 ALT -- -- 23 PTSEC -- -- 11.0 APTT -- -- 24.9 INR -- -- 1.0 InsANDOuts: Intake/Output Summary (Last 24 hours) at 05/02/2025 1621 Last data filed at 05/02/2025 1501 Gross per 24 hour Intake 2339 ml Output 4250 ml Net -1911 ml Last Lab Drawn: TSH 1.410 05/01/2025 Triglyceride 160 05/01/2025 HDL Cholesterol 66 05/01/2025 LDL Cholesterol, Calculated 91 05/01/2025 Cholesterol, Total 184 05/01/2025 CARDIAC WORKUP: I personally reviewed patient's labs and EKG. AANDP: History of glioblastoma History of seizure disorders Acute ischemic left MCA stroke Management as per primary team Appears stable at the present time Sinus bradycardia This appears to be a chronic issue. EKG in the past noted heart rates in the 40s. Currently has a stroke with cerebral edema and raised intracranial pressure. He is also for the most part inactive at the present time because of his stroke. Agree with dexamethasone for management of concurrent cerebral edema Continue telemetry No further interventions required from a cardiac stand point. No indication for a pacemaker. Obesity BMI 30 Thrombocytopenia Hyperglycemia Thank you for the consult. Please Note: The time of this note does not reflect the time I saw this patient today, but the time of this documentation. Also, this note has been created using Dragon Medical 360, a speech recognition software program, and may contain errors including punctuation, grammar, spelling, gender, and inappropriate words or phrases that pertain to the system. SIGNATURE: Tanner Atkinson MD PATIENT NAME: Angel Keating DATE: May 02, 2025 TIME: 4:21 PM PAGER/CONTACT #: [phone] [1] Social History Tobacco Use Smoking status: Former Current packs/day: 1.00 Average packs/day: 1 pack/day for 4.0 years (4.0 ttl pk-yrs) Types: Cigarettes, Cigars Smokeless tobacco: Never Vaping Use Vaping status: Never Used Substance Use Topics Alcohol use: Not Currently Comment: three beers a month - per pt [id number] Drug use: Never PROGRESS Observed: 05/02/2025 3:54 PM Status: COMPLETED Source: [facility] HNO ID: [id number] Author: KARLA HUITRON APRN.CNP Service: Neurology ICU Author Type: Nurse Practitioner Type: Progress Notes Filed: 05/02/2025 15:54 Note Text: SERVICE DATE: 05/02/2025 SERVICE TIME: 3:54 PM NEURO ICU PROGRESS NOTE DATE OF ADMISSION: 05/01/2025 Subjective Hospital Course: 05/02: right hemiplegia worse today. Stat CTH with evolving L basal ganglia infarct. Pushed pressures >140 with no improvement in exam. cEEG with no seizures. Plt count 67 given 2 packs plts > 98 Bradycardic in the 20-30, cardiology c/s. MRI brain completed. Events Since Last Note: as above Objective BP 153/87 Pulse (!) 35 Temp 36.7 ?C (98.1 ?F) (Oral) Resp 16 Ht 177.8 cm (5' 10) Wt 96.2 kg (212 lb) SpO2 98% BMI 30.42 kg/m? Weight change: Neuro: Alert, PERRL, EOMI, VFF, right facial droop, mild dysarthria, expressive>receptive aphasia, follows commands, DOC/LE 5/5 sustains AG, RUE 2/5 some movements no AG, RLE 3/5 some AG but cannot sustain, diminished sensation on right GCS: Eyes: 4. Spontaneous Verbal: 3: Inappropriate words Motor: 6: Obeys Motor commands Total: 13 CV: reggie in the 30's Pulm: CTA unlabored on RA GI/: soft +BS Skin/Extremities: Edema- No Peripheral pulses- Present all extremities Wounds/Drsgs- right radial site c/d/i Breakdown- No Diagnostic tests reviewed for today's visit: Most recent labs and imaging results. Lines, Drains, and Airways Line Duration Arterial Line/Sheath 05/02/25 0930 Right Radial <1 day ICU Checklist Last Documented/Reviewed time: 05/02/2025 3:20 PM ICU Consent Complete?: No ICU Code Status History assess/Full code by default: No, active code status present A= Assess, Prevent, Manage Pain Pain adequately controlled?: Yes C= Choice of Sedation and Analgesia RASS at Goal?: Yes B= Both Spontaneous Awakening and Breathing Trials Ventilator: None D= Delirium: Assess, Prevent and Manage ICU Delirium Status: CAM Negative - no action required Sleep adequate?: Yes Restraint Status: None E= Early Mobility/Excercise ICU Mobility: ICU Mobility Goal: Head of bed 60 degrees, PT/OT consult ordered, Sit at edge of bed, Move to chair F= Family Engagement and Empowerment ICU plan of care visit at bedside in last 24 hours: Yes, Provider, RN, Patient/ designee ICU Disposition: ICU Disposition-POC Detail: To be determined Prevention: Line Status: Arterial line Mcdowell Status: None Pressure Injury Status: None GI/Stress Ulcer Prophylaxis: PPI Nutrition is at Goal: No, nutrition consult indicated VTE Prophylaxis: Chemoprophylaxis: Low Molecular Wt Heparin Mechanical Prophylaxis: Knee high SCD PERSONAL INVOLVEMENT IN CARE: Reviewing initiation, responses and adjustments to therapies, coordination of care, and updating family with Staff Physician, Dr. Rice. Assessment AND Plan 54 yo male with pmh GBM(left temporal lobe) s/p gross total resection(03/19/2023 and 05/27/2024 and chemotherapy), thrombocytopenia, seizures(vimpat), and anxiety who presents for right sided weakness and aphasia. iNIHSS 9 CTH - NAP CTA h/n - L M1 occlusion Outside the window for TNK EVT with Dr. Fan Neurology Aphasia due to acute cerebrovascular accident (CVA) (HCC)- (present on admission) ST Hemiparesis of right dominant side (HCC)- (present on admission) PT/OT Acute ischemic left MCA stroke (HCC)- (present on admission) P/w right sided weakness and aphasia iNIHSS 9 CTH - NAP CTA h/n - L M1 occlusion Outside window for TNK S/p EVT with Dr. Fan Tici 0 Exam worsened 05/02 AM rCTH - evolving L BG stroke MRI brain w/wo (05/02) - Acute moderate sized infarct centered within left basal ganglia. Multiple additional punctate acute infarcts within left middle cerebral artery distribution - Interval decrease in intensity and size of patchy infiltrative enhancement within left basal ganglia and left mesial temporal lobe measuring compared to the 04/18/2025 examination. Comparison of T2 signal is limited in setting of new acute infarct in this region. This is compatible with patient's known glioblastoma - Subtle small hyperdensity on postcontrast imaging within right caudate. No corresponding T2 hyperintensity. This is favored to be artifactual - Postsurgical changes from a left-sided craniotomy with presumed resection cavity within left middle cranial fossa adjacent to anterior left temporal lobe. Small extra-axial collection along craniotomy site with extracranial collection, presumably postsurgical - Unchanged small left parafalcine the extra-axial mass, as detailed above. These are most compatible with meningioma Labs LDL 91 A1c 5.8 Plan Stroke neurology c/s NIL c/s Neuro checks q1h SBP goal 110-180 ASA 81mg daily Lipitor 40mg daily TTE Telemetry monitoring Diet Daily labs with PRN electrolyte replacements PT/OT/ST DVT ppx: SCDs, lovenox Stroke education Cardiovascular Sinus bradycardia- (present on admission) Asymptomatic Monitor on tele Cardiology c/s Endocrinology Hyperglycemia, drug-induced- (present on admission) Likely 2/2 steroids SSI Hematology Thrombocytopenia- (present on admission) 1 pack platelets prior to NIL Goal plt count >50 Monitor and transfuse if indicated Hematology c/s Oncology GBM (glioblastoma multiforme) (HCC)- (present on admission) Continue home steroids Other At risk for seizures- (present on admission) Reggie on admission will switch home vimpat to keppra 1g BID Seizure precautions cEEG without any seizures Obesity, Class I, BMI 30-34.9- (present on admission) Life style modification Medication and Non-Pharmacologic VTE Prophylaxis/Anticoagulants Anticoagulant AND Antiplatelet Medications (From admission, onward) Start Dose Route Frequency Last Action Ordered Stop 05/02/25 1530 aspirin 81 mg chewable tab(s) 81 mg PO/FT DAILY Ordered 05/02/25 1520 -- 05/02/25 1530 enoxaparin 40 mg injection (LOVENOX) (enoxaparin injection (LOVENOX)) 40 mg SQ EVERY 24 HOURS Ordered 05/02/25 1520 -- 05/02/25 1500 activity - mobilize [place] ([place] 05/01/25 1545 vte pharmacologic prophylaxis contraindicated ([place] 05/01/25 1545 pneumatic compression sleeve(s) ([place] VTE Prophylaxis: VTE prophylaxis appropriate Plan of care discussed with: Provider, RN, Patient This patient has a high probability of sudden, clinically significant deterioration, which requires the highest level of provider preparedness to intervene urgently. I managed/supervised life or organ supporting interventions that required frequent provider assessment. I devoted my full attention to the direct care of this patient for the amount of time indicated below. Time I spent with family or surrogate(s) is included only if the patient was incapable of providing the necessary information or participating in medical decision making. Time devoted to teaching and to any procedures I billed separately is not included. Critical Care Documentation: The patient has the following organ/system impairment(s): Complex life-threatening medical problem(s), Respiratory failure (Acute and/or Chronic), acute neurologic event and/or Severe electrolyte imbalance. Part of my note may have been copied from previous documentation. It has been reviewed and is accurate. Critical care time spent with patient: 45 mins SIGNATURE: Karla Huitron APRN.CNP PATIENT NAME: Angel Keating DATE: May 02, 2025 TIME: 3:[phone] BRAIN WO IVCON Observed: 05/02/2025 3:34 PM Status: F Source: [facility] * * *Final Report* * * DATE OF EXAM: May 02 2025 3:34PM [facility] 0504 - CT BRAIN WO IVCON / PROCEDURE REASON: Stroke, follow up * * * * Physician Interpretation * * * * EXAMINATION: CT BRAIN WO IVCON CLINICAL HISTORY: 24 hours after thrombolytic. Stroke follow-up. TECHNIQUE: Serial axial images without IV contrast were obtained from the vertex to the foramen magnum. MQ: [id number] CT Radiation dose: Integrated Dose-Length Product (DLP) for this visit = 806 mGy*cm CT Dose Reduction Employed: Automated exposure control(AEC) and iterative recon COMPARISON: MRI brain on 05/02/2025. CT brain on 05/02/2025. RESULT: Post-operative change: Postsurgical changes from left-sided craniotomy with the similar appearance of low-density small extra-axial and extracranial collections. Presumed surgical cavity within the left middle cranial fossa. Acute change: Acute to subacute infarct centered within the left basal ganglia. Hemorrhage: No convincing evidence of acute intracranial hemorrhage. Mass Lesion / Mass Effect: Edema corresponding to area of infarct and area of known glioblastoma. No significant midline shift. Chronic change: Scattered patchy foci of low attenuation are present within the supratentorial white matter, a nonspecific finding that most commonly represents mild small vessel disease. Parenchyma: There is mild generalized volume loss. Ventricles: Ventricular enlargement concordant with the degree of parenchymal volume loss. Paranasal sinuses and skull base: The visualized paranasal sinuses are grossly clear. The skull base and imaged soft tissues are unremarkable. IMPRESSION: 1. Acute to subacute infarct centered within left basal ganglia. No CT evidence of acute intracranial hemorrhage. 2. Postsurgical changes from left-sided craniotomy with the similar appearance of low-density small extra-axial and extracranial collections. Presumed surgical cavity within the left middle cranial fossa. 3. Edema corresponding to area of infarct and area of known glioblastoma. No significant midline shift. Call Worker Person: EMLII Transcribe Date/Time: May 02 2025 3:36P Dictated by : ONUR SOLIS MD This examination was interpreted and the report reviewed and electronically signed by: ONUR SOLIS MD on May 02 2025 3:43PM EST [id number] PROGRESS Observed: 05/02/2025 3:06 PM Status: COMPLETED Source: [facility] HNO ID: [id number] Author: ALLIE RICE MD Service: Neurology ICU Author Type: Physician Type: Progress Notes Filed: 05/02/2025 15:21 Note Text: Neuro ICU Progress Note 54 yo male with pmh GBM(left temporal lobe) s/p gross total resection(03/19/2023 and 05/27/2024 and chemotherapy), thrombocytopenia, seizures(vimpat), and anxiety who presents for right sided weakness and aphasia. iNIHSS 9 CTH - NAP CTA h/n - L M1 occlusion Outside the window for TNK EVT with Dr. Fan I have personally performed a face to face assessment of the patient and have reviewed the PA/ROUTING EQUIPMENT TENDER/Resident/Medical Student note. Plan of care discussed with: Provider, RN, Patient and Family/Significant Other: Mother. We made the following changes during rounds: MRI to stat rCBC Platelet count >50 Ocnology c/s Actions/Plans: L M1 occlusion S/p MT tici 0 SBP 120-180 due to altered cerebra perfusion from carotid narrowing Likely combination of prior radiation + atherosclerotic changes Platelet Count Date Value Ref Range Status 05/02/2025 98 (L) 150 - 400 k/uL Final Restarting ASA Statin DVT prophylaxis Steroids Immunocompromised state from chemo - continuing prophylaxis against opportunistic infection MRI reviewed. Storke burden similar to that seen on CT Goal normo natremia Sodium Date Value Ref Range Status 05/02/2025 138 136 - 144 mmol/L Final 05/01/2025 141 136 - 144 mmol/L Final 04/25/2025 138 136 - 144 mmol/L Final DNR 0- DNI per family and prior patient wishes Aphasia unchanged PT, OT Speech therapy Seems less likely SBP dependant exam, SBP goal 120-180 Supportive care Cardiology consult - sinus bradycardia Continue keppra Holding vimpat due to bradycardia DISPO: ICU Brief Exam Findings: LOC: 0 - alert and responsive 0 LOC Questions: 0 - both correct 0 LOC Commands: 0 - both correct 0 Best Gaze: 0 - normal gaze 0 Visual Land: 0 - no visual loss 0 Facial Palsy: 2 - partial paralysis 2 Motor Left Arm: 0 - no drift 0 Motor Right Arm: 3 - no antigravity effort but even minimal movements count 3 Motor Left Le - no drift 0 Motor Right Le - some antigravity effort but cannot sustain 2 Limb Ataxia: 0 - no ataxia (or aphasic, hemiplegic) 0 Sensory: 1 - mild to moderate unilateral loss but patient aware of touch (or aphasic, confused) 1 Best Language: 1 - mild-mod aphasia (comprehensible) 1 Dysarthria: 1 - mild-mod slurred 1 Extinction and Inattention: 0 - normal, none detected (or visual loss alone) 0 Daily NIHSS Score: 10 (05/02/25 1122 : Allie Rice MD) 10 Left side AG Right UE 2/4 , LE 3/5 Pupil reactive to light Aphasia , facial asymmetry Prognosis poor ==== The patient currently has the following hospital problems: Principal Problem: Arterial ischemic stroke, MCA (middle cerebral artery), left, acute (HCC) Active Problems: Obesity, Class I, BMI 30-34.9 At risk for seizures Cerebral edema (HCC) GBM (glioblastoma multiforme) (HCC) Thrombocytopenia Acute ischemic left MCA stroke (HCC) Hemiparesis of right dominant side (HCC) Aphasia due to acute cerebrovascular accident (CVA) (HCC) Sinus bradycardia Metabolic acidosis Hemiparesis due to acute cerebrovascular disease (HCC) Dysarthria due to acute stroke (HCC) History of seizure Cytotoxic cerebral edema (HCC) At risk for altered cerebral tissue perfusion due to history of stroke Resolved Problems: * No resolved hospital problems. * ==== This patient has a high probability of sudden, clinically significant deterioration, which requires the highest level of physician preparedness to intervene urgently. I managed/supervised life or organ supporting interventions that required frequent physician assessment. I devoted my full attention to the direct care of this patient for the amount of time indicated below. Time I spent with family or surrogate(s) is included only if the patient was incapable of providing the necessary information or participating in medical decision making. Time devoted to teaching is not included. Plan of care rounds were performed and the ICU checklist was reviewed and completed. Time spent providing critical care services: 33 minutes excluding procedures. Present on Admission: GBM (glioblastoma multiforme) (HCC) Thrombocytopenia Acute ischemic left MCA stroke (HCC) Hemiparesis of right dominant side (HCC) Aphasia due to acute cerebrovascular accident (CVA) (HCC) At risk for seizures Sinus bradycardia Obesity, Class I, BMI 30-34.9 Metabolic acidosis Hemiparesis due to acute cerebrovascular disease (HCC) Dysarthria due to acute stroke (HCC) Cerebral edema (HCC) History of seizure Arterial ischemic stroke, MCA (middle cerebral artery), left, acute (HCC) Cytotoxic cerebral edema (HCC) At risk for altered cerebral tissue perfusion due to history of stroke DNR (do not resuscitate) DNI (do not intubate) ICU Checklist Last Documented/Reviewed time: 05/02/2025 3:20 PM ICU Consent Complete?: No ICU Code Status History assess/Full code by default: No, active code status present A= Assess, Prevent, Manage Pain Pain adequately controlled?: Yes C= Choice of Sedation and Analgesia RASS at Goal?: Yes B= Both Spontaneous Awakening and Breathing Trials Ventilator: None D= Delirium: Assess, Prevent and Manage ICU Delirium Status: CAM Negative - no action required Sleep adequate?: Yes Restraint Status: None E= Early Mobility/Excercise ICU Mobility: ICU Mobility Goal: Head of bed 60 degrees, PT/OT consult ordered, Sit at edge of bed, Move to chair F= Family Engagement and Empowerment ICU plan of care visit at bedside in last 24 hours: Yes, Provider, RN, Patient/ designee ICU Disposition: ICU Disposition-POC Detail: To be determined Prevention: Line Status: Arterial line Mcdowell Status: None Pressure Injury Status: None GI/Stress Ulcer Prophylaxis: PPI Nutrition is at Goal: No, nutrition consult indicated VTE Prophylaxis: Chemoprophylaxis: Low Molecular Wt Heparin Mechanical Prophylaxis: Knee high SCD Signature: Allie Rice MD [facility] Date: 05/02/2025 Time: 3:06 PM PLAN OF CARE Observed: 05/02/2025 2:52 PM Status: COMPLETED Source: [facility] HNO ID: [id number] Author: ?, ?, ? Service: ? Author Type: Tracer Lathe Set Up Operator Type: Plan of Care Filed: 05/02/2025 15:26 Note Text: PHARMACY MEDICATION REVIEW Patient Name: Angel Keating : 1970 The following medications were updated within the GROUND [facility]ER medication list: Medications ADDED to [facility] medication list Medications CHANGED on GROUND LAYER medication list Medications REMOVED from GROUND LAYER medication list midazolam (NAYZILAM) 5 mg/spray (0.1 mL) nasal spray Adjust Sig - Block E-Cancel ondansetron (ZOFRAN) 8 mg tablet Adjust Sig - Block E-Cancel traZODone (DESYREL) 50 mg tablet Adjust Sig - Block E-Cancel pantoprazole DR (PROTONIX) 40 mg tablet Adjust Sig - Block E-Cancel lomustine (GLEOSTINE) 100 mg capsule Adjust Sig - Block E-Cancel Additional comments: I was able to talk with pt. and later his mother Yina Keating about home medications. She brought in 4 medications she states the pt. is taking, Mepron liquid, decadron 2mg, Vimpat 150mg and modafinil 100mg. Yina states pt. takes tylenol as needed. She does not know about dexamethasone 6mg or valtrex 400mg. The script history is directly below. I have removed 5 medications from the GROUND [facility]AYER list. I have not added or changed any other home medications. Pt. states he had taken gleostine but is was dc'd about 30 days ago valACYclovir (VALTREX) 500 mg tablet 03/31/2025 30 30 tablet Jahaira Díaz MD [facility]... dexAMETHasone (DECADRON) 6 mg tablet 03/31/2025 30 60 tablet Jahaira Díaz MD [facility]... Medication history completed by historian. No nursing follow up needed. The below information represents the best possible medication history: Yes Medication history completed by: Tracer Lathe Set Up Operator: Jeet Thorpe ([place]) Source of history: Patient: Reliability of source: Appears reliable, but lethargic: Medication name, Medication dose, Medication route, and Medication frequency and Pharmacy records: Epic e[facility]script [facility] and mother Medication nonadherence identified: No barriers noted Reconciliation completed: No, pharmacist not yet reviewed Patient interested in Bedside Delivery Services or using [facility] OP Pharmacy at discharge? No Preferred outpatient pharmacy: [id number] [place] [address] - [address] - [phone] [phone] Allergies: No Known Allergies Prior to Admission Medications Prescriptions Last Dose Informant Patient Reported? Taking? Miscellaneous Medical Supply kit No No Sig: Outpatient physical therapy acetaminophen (TYLENOL) 325 mg tablet Mother No Yes Si tablets by ORAL/FEEDING TUBE route every 4 hours as needed for pain. atovaquone (MEPRON) 750 mg/5 mL oral liquid No Yes Sig: Take 10 mL by mouth daily with breakfast. dexAMETHasone (DECADRON) 2 mg tablet No Yes Sig: decrease to 10 mg daily starting on 04/06 dexAMETHasone (DECADRON) 6 mg tablet Unknown No No Sig: Take 1 tablet by mouth two times a day with meals. lacosamide (VIMPAT) 150 mg tab No Yes Sig: Take 1 tablet by mouth two times a day for 180 days. modafinil (PROVIGIL) 100 mg tablet No Yes Sig: Take 1 tablet in the morning. If needed take another tablet at 2 pm valACYclovir (VALTREX) 500 mg tablet Unknown No No Sig: Take 1 tablet by mouth once daily. Facility-Administered Medications: None Jeet Thorpe ([place]) phone [phone] 05/02/2025 CONSULT PROG Observed: 05/02/2025 1:37 PM Status: COMPLETED Source: [facility] HNO ID: [id number] Author: NIMA SUÁREZ MD Service: Neurology General Author Type: Physician Type: Consult Progress Note Filed: 05/02/2025 13:51 Note Text: NEURO STROKE CONSULT PROGRESS NOTE SERVICE DATE: 05/02/2025 SERVICE TIME: 1030 Subjective INTERVAL HISTORY: S/p unsuccessful attempted recanalization of LM1 yesterday Clinical worsening on 05/02 am with R sided hemiplegia Repeat CTH with concern of evolving L basal ganglia infarction MEDICATIONS Current Facility-Administered Medications Medication Dose Route Frequency senna-docusate 8.6-50 mg 1 tablet (SENNA-S) 1 tablet ORAL/FEEDING TUBE BID bisacodyl 10 mg suppository (DULCOLAX) 10 mg RECTAL DAILY PRN ondansetron (PF) 4 mg injection (ZOFRAN) 4 mg INTRAVENOUS q 4 H PRN NaCl 0.9% iv flush bag 20 mL INTRAVENOUS PRN NaCl 0.9% iv infusion 75 mL/hr INTRAVENOUS CONTINUOUS hydrALAZINE 5-10 mg injection (APRESOLINE) 5-10 mg INTRAVENOUS q 15 MIN PRN acetaminophen 650 mg tab(s) (TYLENOL) 650 mg ORAL/FEEDING TUBE q 4 H PRN Or acetaminophen 650 mg CUP (TYLENOL) 650 mg ORAL/FEEDING TUBE q 4 H PRN Or acetaminophen 650 mg suppository (TYLENOL) 650 mg RECTAL q 4 H PRN atorvastatin 40 mg tab(s) (LIPITOR) 40 mg ORAL/FEEDING TUBE AT BEDTIME sodium chloride 0.9 % (flush) 2-10 mL (BD POSIFLUSH) 2-10 mL INTRAVENOUS DIRECTED PRN And perflutren lipid microspheres 1.1 mg/mL 1.3 mL injection (DEFINITY) 1.3 mL INTRAVENOUS DIRECTED PRN levETIRAcetam 1,000 mg tab(s) (KEPPRA) 1,000 mg ORAL/FEEDING TUBE BID dexAMETHasone 10 mg tab(s) (DECADRON) 10 mg ORAL/FEEDING TUBE DAILY potassium chloride 20-40 mEq oral powder (KLOR-CON) 20-40 mEq ORAL/FEEDING TUBE PRN Or potassium chloride iv piggyback 20 mEq/100 mL 20 mEq INTRAVENOUS PRN sodium phosphate 30 mmol in D5W 250 mL 30 mmol INTRAVENOUS PRN(NO DISPENSE) Or sodium phosphate 45 mmol in D5W 250 mL 45 mmol INTRAVENOUS PRN(NO DISPENSE) magnesium sulfate iv piggyback in sterile water 2 g 50 mL 2 g INTRAVENOUS PRN calcium gluconate iv piggyback 2 g in NaCl (iso-osmotic) 100 mL 2 g INTRAVENOUS PRN(NO DISPENSE) iv contrast (radiology procedure) INTRAVENOUS DIRECTED PRN DOPamine iv infusion 800 mg/250 mL D5W 2.5-20 mcg/kg/min INTRAVENOUS CONTINUOUS atovaquone 1,500 mg oral liquid (MEPRON) 1,500 mg ORAL DAILY WITH BREAKFAST valACYclovir 500 mg tab(s) (VALTREX) 500 mg ORAL DAILY dextrose 15 gram/32 mL 15 g (TRUEPLUS) 15 g ORAL PRN Or glucagon 1 mg injection 1 mg INTRAMUSCULAR PRN Or dextrose 10% iv bolus 12.5 g INTRAVENOUS PRN insulin regular human injection (short acting) SUBCUTANEOUS w MEALS AND HS Objective PHYSICAL EXAM Vital Signs: BP 128/77 Pulse (!) 36 Temp 36.7 ?C (98.1 ?F) (Oral) Resp 15 Ht 177.8 cm (5' 10) Wt 96.2 kg (212 lb) SpO2 98% BMI 30.42 kg/m? NEUROLOGICAL: LOC: 0 - alert and responsive 0 LOC Questions: 0 - both correct 0 LOC Commands: 0 - both correct 0 Best Gaze: 0 - normal gaze 0 Visual Land: 0 - no visual loss 0 Facial Palsy: 2 - partial paralysis 2 Motor Left Arm: 0 - no drift 0 Motor Right Arm: 3 - no antigravity effort but even minimal movements count 3 Motor Left Le - no drift 0 Motor Right Le - some antigravity effort but cannot sustain 2 Limb Ataxia: 0 - no ataxia (or aphasic, hemiplegic) 0 Sensory: 1 - mild to moderate unilateral loss but patient aware of touch (or aphasic, confused) 1 Best Language: 1 - mild-mod aphasia (comprehensible) 1 Dysarthria: 1 - mild-mod slurred 1 Extinction and Inattention: 0 - normal, none detected (or visual loss alone) 0 Daily NIHSS Score: 10 (05/02/25 1122 : Allie Rice MD) 10 DATA: Diagnostic tests reviewed for today's visit: Lipids, HbA1c, Recent Labs 05/01/25 1630 CHOL 184 HDL 66 LDL 91 TG 160* HBA1C 5.8* CMP, CBC, Coags Recent Labs 05/02/25 1128 05/02/25 0312 05/01/25 1630 NA -- 138 141 K -- 4.1 3.7 CHLOR -- 105 107 CO2 -- 21* 22 BUN -- 23 CREAT -- 0.77 0.78 GLUC -- 156* 138* CA -- 8.1* 8.2* MG -- 2.0 2.0 P -- 3.0 3.6 WBC 5.78 5.58 5.15 HB 10.4* 10.9* 12.2* HCT 30.1* 31.2* 35.2* PLT 98* 67* 65* INR -- -- 1.0 APTT -- -- 24.9 Most recent labs and imaging results. MEDICAL EVENTS: No medical events have been recorded. STROKE 9 CARE AND PREVENTION CHECKLIST 1. Is the patient currently on an ANTITHROMBOTIC medication (Antiplatelet or Anticoagulant): None (thrombocytopenia) Reason Antithrombotic not prescribed: Risk of bleeding or discontinued due to bleeding 2. Does the patient have known AFIB/FLUTTER: No 3. Is the patient on a STATIN: Atorvastatin 40 mg 4. Is the patient on VTE prophylaxis: Mechanical prophylaxis, No, pharmacological prophylaxis contraindicated Mechanical intervention type: Intermittent compression stocking(s) Reason for no pharmacological VTE prophylaxis: High risk of bleeding 5. GLYCEMIC Control Medications: Not Diabetic 6. Stroke BP Goals: SBP 130-160 Stroke BP Control: BP well controlled 7. Stroke IVF/Nutrition: IVF 8. TEMPERATURE Control: Normothermic 9. Does the patient need THERAPY: Yes Therapy Service Involvement: PT, OT, ST Stroke Care and Prevention (personally reviewed by Nima Suárez MD): Daily Rounding Date: 05/01/25 Daily Rounding Time: 1437 PROBLEM LIST: Principal Problem: Arterial ischemic stroke, MCA (middle cerebral artery), left, acute (HCC) (POA: Yes) Active Problems: Obesity, Class I, BMI 30-34.9 (POA: Yes) At risk for seizures (POA: Yes) Cerebral edema (HCC) (POA: Yes) GBM (glioblastoma multiforme) (HCC) (POA: Yes) Thrombocytopenia (POA: Yes) Acute ischemic left MCA stroke (HCC) (POA: Yes) Hemiparesis of right dominant side (HCC) (POA: Yes) Aphasia due to acute cerebrovascular accident (CVA) (HCC) (POA: Yes) Sinus bradycardia (POA: Yes) Metabolic acidosis (POA: Yes) Hemiparesis due to acute cerebrovascular disease (HCC) (POA: Yes) Dysarthria due to acute stroke (HCC) (POA: Unknown) History of seizure (POA: Yes) Resolved Problems: * No resolved hospital problems. 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 of ASM with Lacosamide 150 BID -- thrombocytopenia, s/p 1 unit transfusion Stroke Mechanism Daily NIHSS Score: 10 PLAN NSICU care BP augmentation using pressor support, target ~140-180 range ASA monotherapy, close monitoring platelet counts Supportive care Page/call with questions SIGNATURE: Nima Suárez MD PATIENT NAME: Angel Keating DATE: May 02, 2025 TIME: 1:38 PM ALLIED HEALTH Observed: 05/02/2025 12:04 PM Status: COMPLETED Source: [facility] HNO ID: [id number] Author: DARWIN CARROLL RT(R) Service: Radiology Author Type: Technologist Type: Allied Health Filed: 05/02/2025 12:04 Note Text: Radiology Service Progress Note DATE OF SERVICE: May 02, 2025 TIME: 12:04 PM PATIENT IDENTITY VERIFICATION COMPLETED USING TWO (2) STANDARD IDENTIFIERS: Name and Date of confirmed by patient verbally and Name and Date of confirmed by identification band. FALL SCREENING: Has the patient had 2 falls in the last year or 1 fall with injury or currently using an Ambulatory Assistive Device (Walker, Cane, Wheelchair, Crutches, etc.)? Inpatient: Screened on floor PATIENT GENDER DATA: Assigned male at PATIENT RELEVANT IMPLANT DATA REVIEWED: Not Applicable PATIENT PRESENTS WITH AN IMPLANTABLE OR ATTACHED PLATE FINISHER: No ALLERGIES: Reviewed and unchanged CONTRAST ALLERGY: NO. EXAM: MRI - CONTRAST TYPE: GROUP II PERIPHERAL IV DATA: Inpatient - refer to LDA documentation RADIOLOGY DEPARTMENT: MR; Exam(s) Completed: Head: Routine Brain. Anesthesia: No. Aromatherapy Administered: No SIGNATURE: RT Chani(R) PATIENT NAME: Angel Keating DATE: May 02, 2025 TIME: 12:04 PM MRI BRAIN WO/W IVCON Observed: 12:04 PM Status: F Source: [facility] * * *Final Report* * * DATE OF EXAM: May 02 2025 12:04PM YASMIN [id number] - MRI BRAIN WO/W IVCON / PROCEDURE REASON: Stroke, follow up * * * * Physician Interpretation * * * * EXAMINATION: MRI BRAIN WO/W IVCON CLINICAL HISTORY: Follow up stroke, status post thrombectomy. TECHNIQUE: Routine brain MRI protocol without and with contrast including diffusion images. MQ: [id number] Contrast: 9.6 mL Elucirem IV COMPARISON: CT brain on 05/02/2025. MRI brain on 04/18/2025. RESULT: Acute Change: Acute moderate sized infarct centered within left basal ganglia. Multiple additional punctate acute infarcts within the left middle cerebral artery distribution. Hemorrhage: Few scattered punctate susceptibility signal, most compatible with the chronic microhemorrhages. Mass Lesion/ Mass Effect: Postsurgical changes from a left-sided craniotomy with the presumed resection cavity within the left middle cranial fossa adjacent to the anterior left temporal lobe. Small extra-axial collection along the craniotomy site with extracranial collection, presumably postsurgical. Unchanged enhancing extra-axial mass along the anterior right falx measuring 14 x 8 mm on series 13 image 16. Unchanged additional enhancing extra-axial mass along the anterior right falx measuring at 10 x 10 mm. This abuts the adjacent the dural sinus. This is best seen on series 13 image 24. Interval decrease in intensity and the size of the patchy enhancement the within the left basal ganglia, and left mesial temporal lobe measuring compared to the 04/18/2025 examination. Comparison of T2 signal is limited in setting of new acute infarct in this region. Subtle small hyperdensity on postcontrast imaging within the right caudate (series 13 image 50). No corresponding T2 hyperintensity. Chronic Change: Scattered patchy areas of increased T2 and FLAIR signal are present in the supratentorial white matter which is a nonspecific finding but likely represents mild chronic microvascular ischemia. Parenchyma: There is mild generalized parenchymal volume loss. Ventricles: Ventriculomegaly corresponds to the degree of parenchymal volume loss. Skull Base: Hypothalamic and pituitary region are grossly normal. Craniocervical junction is normal. No significant marrow replacement process. Other: The visualized paranasal sinuses and mastoid air cells are clear. The orbits and extracranial soft tissues are unremarkable. IMPRESSION: 1. Acute moderate sized infarct centered within left basal ganglia. Multiple additional punctate acute infarcts within left middle cerebral artery distribution. This is new since 04/18/2025. 2. Interval decrease in intensity and size of patchy infiltrative enhancement within left basal ganglia and left mesial temporal lobe measuring compared to the 04/18/2025 examination. Comparison of T2 signal is limited in setting of new acute infarct in this region. This is compatible with patient's known glioblastoma. Continued attention on follow-up imaging is recommended. 3. Subtle small hyperdensity on postcontrast imaging within right caudate. No corresponding T2 hyperintensity. This is favored to be artifactual. Attention on follow-up imaging is recommended given patient's history. 4. Postsurgical changes from a left-sided craniotomy with presumed resection cavity within left middle cranial fossa adjacent to anterior left temporal lobe. Small extra-axial collection along craniotomy site with extracranial collection, presumably postsurgical. 5. Unchanged small left parafalcine the extra-axial mass, as detailed above. These are most compatible with meningioma. Call Worker Person: PSCB Transcribe Date/Time: May 02 2025 12:13P Dictated by : ONUR SOLIS MD This examination was interpreted and the report reviewed and electronically signed by: ONUR SOLIS MD on May 02 2025 12:38PM EST [id number] CBC PNL BLD AUTO Collected: 05/02/2025 11:28 AM Stat us: F Source: [facility] Order Comment: Specimen Type : BLOOD SPECIMEN Ordering Facility: [facility] Address: [address] [place] [address] TYPE CODE TESTS RESULT OUT OF RANGE REFERENCE UNITS LAB 6690-2(LOINC) WBC # Bld Auto 5.78 3.70-11.00 k/uL LAB 789-8(LOINC) RBC # Bld Auto 3.05 Low 4.20-6.00 m/ uL LAB 718-7(LOINC) Hgb Bld-mCnc 10.4 Low 13.0-17.0 g/dL LAB 4544-3(LOINC) Hct VFr Bld Auto 30.1 Low 39.0-51.0 % LAB 787-2(LOINC) MCV RBC Auto 98.7 80.0-100.0 fL LAB 785-6(LOINC) MCH RBC Qn Auto 34.1 High 26.0-34.0 pg LAB 786-4(LOINC) MCHC RBC Auto-mCnc 34.6 30.5-36.0 g/dL LAB 75912-4(LOINC) RDW RBC-Rto 15.6 High 11.5-15.0 % LAB 777-3(LOINC) Platelet # Bld Auto 98 Low 150-400 k/uL LAB 14326-6(LOINC) PMV Bld Auto 9.7 9.0-12.7 fL LAB 771-6(LOINC) nRBC # Bld Auto 0.04 High <0.01 k/uL Performed By: #### [id number] # ### [facility] CLIA [id number] [address] [place] OF [facility] THERAPY NT Observed: 05/02/2025 11:23 AM Status: COMPLETED Source: [facility] HNO ID: [id number] Author: DELMA JOSEPH, PT Service: Physical Therapy Author Type: Physical Therapist Type: Therapy (PT/OT/Speech/Resp) Filed: 05/02/2025 11:23 Note Text: PHYSICAL THERAPY MISSED VISIT SERVICE DATE: 05/02/2025 SERVICE TIME: 1122 ROOM: [place] [address] Patient not seen due to Hold Monitor AND Reassess (PT order not active until 1500. Also noted low HRs in the 30-40s.). SIGNATURE: Delma Joseph PT PATIENT NAME: Angel Keating DATE: May 02, 2025 TIME: 11:23 AM PROCEDURE Observed: 05/02/2025 10:28 AM Status: COMPLETED Source: [facility] HNO ID: [id number] Author: POLI HERRERA DO Service: Neurology ICU Author Type: Resident Type: Procedures Filed: 05/02/2025 10:30 Note Text: Attestation signed by Allie Rice MD at 05/02/2025 11:22 AM NICU STAFF I personally supervised this procedure on Angel Keating. I was present for the timeout and throughout the critical portion of the procedure. Allie Rice MD STAFF SALES DRIVER [facility] DATE : May 02, 2025 BEDSIDE PROCEDURE NOTE ART LINE/SHEATH Date/Start Time: 05/02/2025 9:30 AM Date/Stop Time: 05/02/2025 10:00 AM Performed by: Poli Herrera DO Authorized by: Jonny Fan MD Where was Patient When this Procedure was Performed: Bedside/Unscheduled Procedure Room This procedure has been performed in part by a resident/fellow under attending's direction Informed Consent Consent Obtained: Written [place] Protocol A moment to CARE was completed. SIGN IN Personnel directly involved with the procedure wore the appropriate PPE. Patient/Surrogate Stated/Verified: Patient name, Date of , Relevant allergies and Intended procedure TIME OUT Relevant labs, photos, and/or imaging studies have been reviewed. Intended patient and procedure match source documents. Consent obtained and matches the intended procedure. Correct side/site marked and visible. Medications required for procedure verified. Pre-Procedure Details: The area was prepped with chlorhexidine (Chloroprep) and povidone Iodine (Betadine) and allowed to dry. A sterile partial body drape was applied following the usual aseptic technique. Medications: Local Anesthesia (see MAR): Lidocaine 1% Procedure Details: Indication: Monitoring of vital bodily functions Arterial Line Type: arterial line Site: right radial Technique: Modified Seldinger (arrow) The vessel was cannulated under direct ultrasound visualization with a 20 gauge catheter. A straight-tipped spring wire was passed into the artery through the indwelling catheter and left in situ while the catheter was advanced. The catheter was left in situ while the guidewire was removed. Pulsatile blood flow exited the catheter. Arterial waveform was noted on the monitor when the catheter was transduced. Securement/Dressing: Sterile sutures and sterile, transparent, occlusive dressing All catheters, needles, and wires were accounted for and intact Number of attempts: 1 Successful Placement: Yes Post-Procedure Details: Patient Tolerance: Patient tolerated the procedure well with no immediate complications Estimated Blood Loss: scant SIGN OUT All instruments, equipment, possible retained foreign bodies accounted for. The post-procedure POC has been communicated to the patient or surrogate. Post-procedure POC communicated to patient's multidisciplinary team (including bedside nurse for hospitalized patients). SIGNATURE: Poli Herrera DO PATIENT NAME: Angel Keating DATE: May 02, 2025 TIME: 10:28 AM ECG COMPLETE Observed: 05/02/2025 10:11 AM Status: F Source: [facility] Ventricular Rate : 40 BPM Atrial Rate : 40 BPM P-R Interval : 156 ms QRS Duration : 90 ms Q-T Interval : 478 ms QTC Calculation(Bazett) : 389 ms Calculated P [place] : 54 degrees Calculated R [place] : 22 degrees Calculated T [place] : 48 degrees MARKED SINUS BRADYCARDIA ABNORMAL ECG NO PREVIOUS ECGS AVAILABLE Confirmed by JYOTI HALL MD ([id number]) on 05/03/2025 8:41:13 PM NAME : ANGEL KEATING PID : [id number] : 1970 Gender : Male Race : ORD : [id number] Procedure Date : May 02 2025 10:11:33 Edit Date : May 03 2025 20:41:17 Diagnosis: MARKED SINUS BRADYCARDIA ABNORMAL ECG NO PREVIOUS ECGS AVAILABLE Confirmed by JYOTI HALL MD ([id number]) on 05/03/2025 8:41:13 PM Test Reason : Arrhythmia Location : 200 : [facility] 321 Overread By : JYOTI HALL MD Edited By : JYOTI HALL MD Referred By : AMBREEN GOODWIN Acquired by : CYNDEE SMITH CASE MGT INSOBEIDA WEBSTER Observed: 05/02/2025 9:52 AM Status: COMPLETED Source: [facility] HNO ID: [id number] Author: KAILEY TANG RN Service: Care Management Author Type: Registered Nurse Type: Care Mgt Initial Assessment Filed: 05/02/2025 10:13 Note Text: CARE MANAGEMENT: ASSESSMENT AND DISCHARGE PLAN SERVICE DATE: May 02, 2025 SERVICE TIME: 9:52 AM PCP: No primary care provider on file. Primary Contact: Extended Emergency Contact Information Primary Emergency Contact: DONNA KEATING Mobile Relation: Mother Secondary Emergency Contact: Santa Fry [facility] Mobile Relation: Sister Preferred language: [place] Admission Status: Inpatient Insurance Provider: MMO SUPERMED PPO Discharge Planning requested by: Per Department Practice Potential Transition Plans To Be Determined Advance Directives Current Advance Directive: Health Care Power of Pharmacy Benefit Manager In Chart: Yes Up To Date and Valid: Yes Current Living Arrangements and Support Lives with: Family members (Patient lives with mother) Type of Residence: Private Residence (House) Does the patient have to climb stairs at home?: stairs outside the home, stairs within the home (2 steps outside, 6 steps inside the house) Support: Family members How do you manage to accomplish the following: Needs Assistance: Ambulation, Bathe/Shower, Dress, Meals/Meal Prep, Going to the bathroom, Medication Management, Transportation to appointments/community Current Services/Equipment Current Post-Acute Service(s): DME Current DME Type: Cane, Walker, Shower seat, Elevated toilet seat, Grab bars Discharge Planning Patient Goal(s): Transportation assistance, Increase strength, General wellness [place] of Choice Explained: [place] of Choice Given: No Reason Not Given: Unable to complete with this assessment - revisit Are you interested in bedside delivery of your medications? Yes Discharge Planning Participant(s): Family Patient/Family Comments: HCPSCARLETT/Santa paulson, Caregiver Assessment: Caregiver is ready, willing and able to meet the patient's needs as recommended by the inter-professional team: No Caregiver needed Transport at Discharge: Transportation Arrangements: To Be Determined (Sister Donna is able to transport home, otherwise will need [facility]) Needs Prior to Discharge: Needs Prior to Discharge: To Be Determined Post-Acute Discharge Plan: Spoke with patient at bedside. Followed up with phone call to CARLY/sister Santa, . Patient is from home independently, with mother, + DME. Awaiting PT/OT evaluations for discharge recommendations. Patient' Donna paulson able to transport home at discharge, otherwise will need [facility]. CM will continue to follow for discharge needs. SIGNATURE: Kailey Tang RN PATIENT NAME: Angel Keating DATE: May 02, 2025 TIME: 9:52 AM THERAPY NT Observed: 05/02/2025 9:42 AM Status: COMPLETED Source: [facility] HNO ID: [id number] Author: MARCE LOPEZ, CCC-BEHAVIORAL HEALTH COUNSELOR Service: Speech/Swallow Author Type: Speech Language Pathologist Type: Therapy (PT/OT/Speech/Resp) Filed: 05/02/2025 09:43 Note Text: SPEECH THERAPY MISSED VISIT SERVICE DATE: 05/02/2025 SERVICE TIME: 940 ROOM: [place] [id number] Patient not seen due to Clinical Appropriateness. Patient's needs to lay flat at this time and is also having a line put in. Will see at another time. 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 iNIHSS 9. CTH no acute abnormality. CTA noted L M1 occlusion. Given fluctuating NIH of 6-10 with expressive aphasia, taken to [facility] for thrombectomy. Post-procedure day #1 after attempted mechanical thrombectomy, unsuccessful with TICI 0 recanalization. INTERVAL HISTORY: Patient reportedly worsened this morning. Taken for stat CTH which noted evolving L putamen infarct with no hemorrhage. FUNCTIONAL STATUS: Partially dependent Current Facility-Administered Medications Medication Dose Route Frequency Provider Last Rate Last Admin potassium chloride 20-40 mEq oral powder (KLOR-CON) 20-40 mEq ORAL/FEEDING TUBE PRN Elana, Karla, NETWORK ANALYST.MANUFACTURING ENGINEERING MANAGER Or potassium chloride iv piggyback 20 mEq/100 mL 20 mEq INTRAVENOUS PRN Elana, Karla, NETWORK ANALYST.MANUFACTURING ENGINEERING MANAGER sodium phosphate 30 mmol in D5W 250 mL 30 mmol INTRAVENOUS PRN(NO DISPENSE) Elana, Karla, NETWORK ANALYST.MANUFACTURING ENGINEERING MANAGER Or sodium phosphate 45 mmol in D5W 250 mL 45 mmol INTRAVENOUS PRN(NO DISPENSE) Elana, Karla, NETWORK ANALYST.MANUFACTURING ENGINEERING MANAGER magnesium sulfate iv piggyback in sterile water 2 g 50 mL 2 g INTRAVENOUS PRN Karla Huitron APRN.MANUFACTURING ENGINEERING MANAGER calcium gluconate iv piggyback 2 g in NaCl (iso-osmotic) 100 mL 2 g INTRAVENOUS PRN(NO DISPENSE) Karla Huitron APRN.MANUFACTURING ENGINEERING MANAGER NORepinephrine iv infusion 16 mg in D5W 250 mL (LEVOPHED) 0.6-50 mcg/min INTRAVENOUS CONTINUOUS Karla Huitron APRN.MANUFACTURING ENGINEERING MANAGER 1.88 mL/hr at 05/02/25 0815 2 mcg/min at 05/02/25 0815 NaCl 0.9% 1,000 mL iv bolus 1,000 mL INTRAVENOUS ONCE Karla Huitron APRN.MANUFACTURING ENGINEERING MANAGER 999 mL/hr at 05/02/25 0840 1,000 mL at 05/02/25 0840 iv contrast (radiology procedure) INTRAVENOUS DIRECTED PRN Karla Huitron APRN.MANUFACTURING ENGINEERING MANAGER senna-docusate 8.6-50 mg 1 tablet (SENNA-S) 1 tablet ORAL/FEEDING TUBE BID Karla Huitron APRN.MANUFACTURING ENGINEERING MANAGER 1 tablet at 05/02/25 0855 bisacodyl 10 mg suppository (DULCOLAX) 10 mg RECTAL DAILY PRN Karla Huitron APRN.MANUFACTURING ENGINEERING MANAGER ondansetron (PF) 4 mg injection (ZOFRAN) 4 mg INTRAVENOUS q 4 H PRN Karla Huitron APRN.MANUFACTURING ENGINEERING MANAGER NaCl 0.9% iv flush bag 20 mL INTRAVENOUS PRN Karla Huitron APRN.MANUFACTURING ENGINEERING MANAGER NaCl 0.9% iv infusion 75 mL/hr INTRAVENOUS CONTINUOUS Karla Huitron APRN.MANUFACTURING ENGINEERING MANAGER 75 mL/hr at 05/02/25 0329 75 mL/hr at 05/02/25 0329 hydrALAZINE 5-10 mg injection (APRESOLINE) 5-10 mg INTRAVENOUS q 15 MIN PRN Karla Huitron APRN.MANUFACTURING ENGINEERING MANAGER acetaminophen 650 mg tab(s) (TYLENOL) 650 mg ORAL/FEEDING TUBE q 4 H PRN Karla Huitron, BUDDY.MANUFACTURING ENGINEERING MANAGER Or acetaminophen 650 mg CUP (TYLENOL) 650 mg ORAL/FEEDING TUBE q 4 H PRN Karla Huitron, BUDDY.MANUFACTURING ENGINEERING MANAGER Or acetaminophen 650 mg suppository (TYLENOL) 650 mg RECTAL q 4 H PRN Karla Huitron APRN.MANUFACTURING ENGINEERING MANAGER atorvastatin 40 mg tab(s) (LIPITOR) 40 mg ORAL/FEEDING TUBE AT BEDTIME Karla Huitron APRN.MANUFACTURING ENGINEERING MANAGER 40 mg at 05/01/252048 sodium chloride 0.9 % (flush) 2-10 mL (BD POSIFLUSH) 2-10 mL INTRAVENOUS DIRECTED PRN Karla Huitron APRN.MANUFACTURING ENGINEERING MANAGER And perflutren lipid microspheres 1.1 mg/mL 1.3 mL injection (DEFINITY) 1.3 mL INTRAVENOUS DIRECTED PRN Karla Huitron APRN.MANUFACTURING ENGINEERING MANAGER levETIRAcetam 1,000 mg tab(s) (KEPPRA) 1,000 mg ORAL/FEEDING TUBE BID Karla Huitron APRN.MANUFACTURING ENGINEERING MANAGER 1,000 mg at 05/02/25 0855 dexAMETHasone 10 mg tab(s) (DECADRON) 10 mg ORAL/FEEDING TUBE DAILY Karla Huitron APRN.MANUFACTURING ENGINEERING MANAGER 10 mg at 05/02/25 0855 ALLERGIES No Known Allergies PHYSICAL EXAM: BP 128/77 Pulse 36 Temp (Src) 97.8 (Oral) Resp 15 Ht 5' 10 (1.78m) Wt 212 lb (96.2kg) SpO2 98% BMI 30.42 kg/(m2). O2 Therapy: Room Air GENERAL: Patient seen resting in bed. No acute distress. ACCESS SITE: right radial. Mild ecchymosis. No hematoma. NEUROLOGICAL: + expressive aphasia + mild receptive aphasia (appears to understand most of what is said but occasionally not following commands correctly, such as lifting left leg when asked to lift left arm) EOM intact Right upper quadrantanopsia Right facial droop RUE 1/5 some movement but unable to overcome gravity RLE 2/5 some effort against gravity but unable to maintain LUE/LE 5/5 Sensation grossly intact DATA: Diagnostic tests reviewed for today's visit: Most recent labs and imaging results. Hemoglobin (g/dL) Date Value 05/02/2025 10.9 Hematocrit (%) Date Value 05/02/2025 31.2 WBC (k/uL) Date Value 05/02/2025 5.58 Platelet Count Date Value Ref Range Status 05/02/2025 67 (L) 150 - 400 k/uL Final Glucose (mg/dL) Date Value 05/02/2025 156 Potassium (mmol/L) Date Value 05/02/2025 4.1 Sodium (mmol/L) Date Value 05/02/2025 138 Chloride (mmol/L) Date Value 05/02/2025 105 CO2 (mmol/L) Date Value 05/02/2025 21 Creatinine (mg/dL) Date Value 05/02/2025 0.77 BUN (mg/dL) Date Value 05/02/2025 23 Anion Gap (mmol/L) Date Value 05/02/2025 12 Calcium, Total (mg/dL) Date Value 05/02/2025 8.1 PATIENT CHECKLIST ICU Checklist Last Documented/Reviewed time: 05/01/2025 4:24 PM ICU Consent Complete?: No ICU Code Status History assess/Full code by default: No, active code status present A= Assess, Prevent, Manage Pain Pain adequately controlled?: Yes C= Choice of Sedation and Analgesia RASS at Goal?: Yes B= Both Spontaneous Awakening and Breathing Trials Ventilator: None D= Delirium: Assess, Prevent and Manage ICU Delirium Status: CAM Negative - no action required Sleep adequate?: Yes Restraint Status: None E= Early Mobility/Excercise ICU Mobility: ICU Mobility Goal: Head of bed 60 degrees, PT/OT consult ordered, Sit at edge of bed, Move to chair F= Family Engagement and Empowerment ICU plan of care visit at bedside in last 24 hours: Yes, Provider, RN, Patient/ designee ICU Disposition: ICU Disposition-POC Detail: To be determined Prevention: Line Status: None Mcdowell Status: None Pressure Injury Status: None GI/Stress Ulcer Prophylaxis: PPI Nutrition is at Goal: No, nutrition consult indicated VTE Prophylaxis: Chemoprophylaxis: No chemoprophylaxis No Chemoprophylaxis Reason: Thrombocytopenia Lines, Drains, and Airways None ASSESSMENT: This is a 54 year old male with PMHx significant for 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 iNIHSS 9. CTH no acute abnormality. CTA noted L M1 occlusion. Given fluctuating NIH of 6-10 with expressive aphasia, taken to [facility] for thrombectomy. Post-procedure day #1 after attempted mechanical thrombectomy, unsuccessful with TICI 0 recanalization. Patient continuing to have fluctuations in exam, with some worsening this morning. Reviewed recent MRI with Dr. Caputo, MCA appears occluded on this study as well. 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 No indication for neuroendovascular intervention. Per neuro-oncology telephone encounter noted 05/01, the deficits noted in initial NIH evaluation are similar to the deficits that Dr. Enriquez noted at the patients last visit to the brain tumor clinic. Given recent steroid taper, it is possible that the fluctuations in patients exam are related to patient's known tumor. EEG negative for seizure. PLAN: - No neuroendovascular intervention at this time given this is likely a chronic occlusion that was not amenable to thrombectomy - Continued workup per NSICU and neurology - Recommend continued discussion with patient's neuro-oncologist - Rest of management per primary team Above plan discussed with neuroendovascular intervention staff. Morgan Hanks PA-C Neuroendovascular Intervention 05/02/2025 [facility] Observed: 05/02/2025 8:28 AM Status: COMPLETED [id number] Author: YU DICKEY Tech Service: ? Author Type: Technologist Type: Allied Health Filed: 05/02/2025 08:28 Note Text: Radiology Service Progress Note PATIENT NAME: Angel Keating DATE OF SERVICE: May 02, 2025 TIME: 8:28 AM PATIENT IDENTITY VERIFICATION COMPLETED USING TWO (2) IDENTIFIERS: Name and Date of confirmed by patient verbally and Name and Date of confirmed by identification band. FALL SCREENING: Has the patient had 2 falls in the last year or 1 fall with injury or currently using an Ambulatory Assistive Device (Walker, Cane, Wheelchair, Crutches, etc.)? Inpatient: Screened on floor PATIENT GENDER DATA: Assigned male at PATIENT RELEVANT IMPLANT DATA REVIEWED: Yes PATIENT PRESENTS WITH AN IMPLANTABLE OR ATTACHED PLATE FINISHER: No RADIOLOGY DEPARTMENT: CT; Exam(s) Completed: Brain . Anesthesia: No PERIPHERAL IV DATA: Inpatient: see [facility] documentation SIGNED BY: Philip Sheth May 02, 2025 8:[address] BRAIN WO IVCON Observed: 05/02/2025 8:28 AM Status: F Source: [facility] * * *Final Report* * * DATE OF EXAM: May 02 2025 8:28AM [facility] 0504 - CT BRAIN WO IVCON / PROCEDURE REASON: Stroke, follow up * * * * Physician Interpretation * * * * EXAMINATION: CT BRAIN WO IVCON CLINICAL HISTORY: The patient is a 54-year-old male with glioblastoma of the left temporal lobe treated with resection and chemoradiation. The patient demonstrated a left M1 segment middle cerebral artery occlusion with attempted mechanical thrombectomy. TECHNIQUE: Serial axial images without IV contrast were obtained from the vertex to the foramen magnum. MQ: [id number]_3 CT Radiation dose: Integrated Dose-Length Product (DLP) for this visit = 805 mGy*cm CT Dose Reduction Employed: Automated exposure control(AEC) and iterative recon COMPARISON: Outside CT scan of the head with CT angiogram from May 01, 2025 RESULT: Localizer images: Multiple EEG leads overlie the calvarium. Dental amalgam is present. Left temporal craniotomy is visualized. Post-operative change: There is a left temporal craniotomy. Acute change: There is low attenuation in the left putamen and globus pallidus and around the frontal horn of the left lateral ventricle similar to that seen on the CT scan with CT angiogram from yesterday. Hemorrhage: No evidence of acute intracranial hemorrhage. ECASS hemorrhagic transformation score: None Mass Lesion / Mass Effect: There is no evidence of an intracranial mass or extraaxial fluid collection. No significant mass effect. Chronic change: There continue to BE changes of encephalomalacia in the left temporal lobe anteriorly expansion of the temporal horn of the left lateral ventricle. Parenchyma: There is no significant volume loss. The rest of brain parenchyma is otherwise within normal limits for age. Ventricles: The rest of the ventricles are within normal limits of size and configuration for age. Paranasal sinuses and skull base: The visualized paranasal sinuses are grossly clear. The skull base and imaged soft tissues are unremarkable. IMPRESSION: There is an evolving cerebrovascular accident involving the left putamen, globus pallidus, caudate, and deep white matter of the left frontal lobe. There is no evidence of hemorrhage. There are postoperative changes in the left temporal lobe associated with resection of glioblastoma. Call Worker Person: EMILI Transcribe Date/Time: May 02 2025 8:36A Dictated by : LEXI HOLBROOK MD This examination was interpreted and the report reviewed and electronically signed by: LEXI HOLBROOK MD on May 02 2025 8:44AM EST [id number] CBC PNL BLD AUTO Collected: 05/02/2025 3:12 AM Statu s: F Source: [facility] Order Comment: Specimen Type : BLOOD SPECIMEN Ordering Facility: [facility] Address: [address] [place] [address] TYPE CODE TESTS RESULT OUT OF RANGE REFERENCE UNITS LAB 6690-2(LOINC) WBC # Bld Auto 5.58 3.70-11.00 k/uL LAB 789-8(LOINC) RBC # Bld Auto 3.16 Low 4.20-6.00 m/ uL LAB 718-7(LOINC) Hgb Bld-mCnc 10.9 Low 13.0-17.0 g/dL LAB 4544-3(LOINC) Hct VFr Bld Auto 31.2 Low 39.0-51.0 % LAB 787-2(LOINC) MCV RBC Auto 98.7 80.0-100.0 fL LAB 785-6(LOINC) MCH RBC Qn Auto 34.5 High 26.0-34.0 pg LAB 786-4(LOINC) MCHC RBC Auto-mCnc 34.9 30.5-36.0 g/dL LAB 11442-6(LOINC) RDW RBC-Rto 15.4 High 11.5-15.0 % LAB 777-3(LOINC) Platelet # Bld Auto 67 Low 150-400 k/uL LAB 31437-0(LOINC) PMV Bld Auto 10.3 9.0-12.7 fL LAB 771-6(LOINC) nRBC # Bld Auto 0.04 High <0.01 k/uL Performed By: #### 58612-9 # ### [facility] CLIA [id number] [address] [place] [address] [place] BAS METAB 2000 PNL SERPL Collected: 3:12 AM Status: F Source: [facility] Order Comment: Specimen Type : BLOOD SPECIMEN Ordering Facility: [facility] Address: [address] [place] [address] TYPE CODE TESTS RESULT OUT OF RANGE REFERENCE UNITS LAB 2345-7(LOINC) Glucose SerPl-mCnc 156 High 74-99 mg/dL Result Comment: The [place] Diabetes Association (ADA) provides guidance for cutoff values for fasting glucose and random glucose. The ADA defines fasting as no caloric intake for at least 8 hours. Fasting plasma glucose results between 100 to 125 mg/dL indicate increased risk for diabetes (prediabetes). Fasting plasma glucose results greater than or equal to 126 mg/dL meet the criteria for diagnosis of diabetes. In the absence of unequivocal hyperglycemia, results should be confirmed by repeat testing. In a patient with classic symptoms of hyperglycemia or hyperglycemic crisis, random plasma glucose results greater than or equal to 200 mg/dL meet the criteria for diagnosis of diabetes. Reference: Standards of Medical Care in Diabetes 2016, [place] Diabetes Association. Diabetes Care. 2016.39(Suppl 1). LAB 3094-0(LOINC) BUN SerPl-mCnc 23 9-24 mg/dL LAB 2160-0(LOINC) Creat SerPl-mCnc 0.77 0.73-1.22 mg/dL LAB 2951-2(LOINC) Sodium SerPl-sCnc 138 136-144 mmol/L LAB 2823-3(LOINC) Potassium SerPl-sCnc 4.1 3.7-5.1 mmol/L LAB 2075-0(LOINC) Chloride SerPl-sCnc 105 98-107 mmol/L LAB 2028-9(LOINC) CO2 SerPl-sCnc 21 Low 22-30 mmol/L LAB 1863-0(LOINC) Anion Gap4 SerPl-sCnc 12 8-15 mmol/L LAB 16051-6(LOINC) Calcium SerPl-mCnc 8.1 Low 8.5-10.2 mg/dL LAB 05838-3(LOINC) eGFRcr SerPlBld CKD-EPI 2021 105 >=60 mL/min/1. 73m??? Result Comment: Estimated Gl omerular Filtration Rate (eGFR) is calculated using the 2020 CKD-EPI creatinine equation. This equation utilizes serum creatinine, sex, and age as parameters. The creatinine assay has traceable calibration to isotope dilution-mass spectrometry. Refer to KDIGO guidelines for clinical interpretation. In patients with unstable renal function, e.g. those with acute kidney injury, the eGFR may not accurately reflect actual GFR. Performed By: #### 54424-7, 2777-1, 84573-2 #### [facility] CLIA [id number] [address] MAGNESIUM SERPL-MCNC Collected: 05/02/2025 3:12 AM S tatus: F Source: [facility] Order Comment: Specimen Type : BLOOD SPECIMEN Ordering Facility: [facility] Address: [address] [place] [address] TYPE CODE TESTS RESULT OUT OF RANGE REFERENCE UNITS LAB 47912-1(LOINC) Magnesium SerPl-mCnc 2.0 1.7-2.3 mg/dL Performed By: #### 92366-3, 2777-1, 62972-1 #### [facility] CLIA [id number] [address] PHOSPHATE SERPL-MCNC Collected: 05/02/2025 3:12 AM S tatus: F Source: [facility] Order Comment: Specimen Type : BLOOD SPECIMEN Ordering Facility: [facility] Address: [address] [place] [address] TYPE CODE TESTS RESULT OUT OF RANGE REFERENCE UNITS LAB 2777-1(LOINC) Phosphate SerPl-mCnc 3.0 2.7-4.8 mg/dL Performed By: #### 42403-1, 2777-1, 53931-0 #### [facility] CLIA [id number] [address] URINALYSIS COMPLETE PNL UR Collected: 05/01/2025 6:59 PM Status: F Source: [facility] Order Comment: Specimen Type : URINE SPECIMEN Ordering Facility: [facility] Address: [address] [place] [address] TYPE CODE TESTS RESULT OUT OF RANGE REFERENCE UNITS LAB 5778-6(LOINC) Color Ur Colorless yellow LAB 39582-8(LOINC) Clarity Spec Clear Clear LAB 5792-7(LOINC) Glucose Ur Strip-mCnc Negative Trace, Negative LAB 5770-3(LOINC) Bilirub Ur Ql Strip Negative Negative LAB 2514-8(LOINC) Ketones Ur Strip Negative Negative, Trace LAB 5811-5(LOINC) Sp Gr Ur Strip >1.040 High 1.005-1.030 LAB 5794-3(LOINC) Hgb Ur Ql Strip Negative Negative, Trace LAB 5803-2(LOINC) pH Ur Strip 5.5 5.0-8.0 LAB 5804-0(LOINC) Prot Ur Strip-mCnc Negative Trace, Negative LAB 5818-0(LOINC) Urobilinogen Ur Strip Normal Normal LAB 5802-4(LOINC) Nitrite Ur Ql Strip Negative Negative LAB 5799-2(LOINC) Leukocyte esterase Ur Ql Strip Negative Negative, 25 Christina/uL LAB 5821-4(LOINC) WBC #/area UrnS HPF 0-5 /HPF 0-5 /HPF LAB 77485-2(LOINC) RBC #/area UrnS HPF 3-5 /HPF Abnormal 0-3 /HPF Performed By: #### 70652-4 # ### [facility] CLIA [id number] [address] [place] [address] [place] TOXICOLOGY SCREEN, ROUTINE URINE Collected: 05/01/2025 6:59 PM Status: F Source: [facility] Order Comment: Specimen Type : URINE SPECIMEN Ordering Facility: [facility] Address: [address] [place] [address] TYPE CODE TESTS RESULT OUT OF RANGE REFERENCE UNITS LAB 27633-3(LOINC) Amphetamines Ur Cfm-mCnc Negative Negative Result Comment: Cutoff thres hold at 1000 ng/mL. LAB UBARBR BARBITURATES, URINE Negative Negative Result Comment: Cutoff thres hold at 200 ng/mL. LAB UBENZR BENZODIAZEPINES, URINE Preliminary positive Abnormal Negative Result Comment: Cutoff thres hold at 200 ng/mL. LAB 47471-1(LOINC) Cannabinoids Ur Ql Scn Negative Negative Result Comment: Cutoff thres hold at 50 ng/mL. LAB 3397-7(LOINC) Cocaine Ur Ql Negative Negative Result Comment: Cutoff thres hold at 300 ng/mL. LAB 5645-7(LOINC) Ethanol Ur-mCnc <11 <11 mg /dL LAB 45090-8(LOINC) fentaNYL Ur Ql Scn Negative Negative Result Comment: Cutoff thres hold at 5 ng/mL. LAB 16826-6(LOINC) Opiates Ur Ql Scn Negative Negative Result Comment: Cutoff thres hold at 300 ng/mL. LAB 64950-3(LOINC) oxyCODONE nuisance wildlife specialist Ur Scn-mCnc Negative Negative Result Comment: Cutoff thres hold at 100 ng/mL. LAB 53697-0(LOINC) PCP Ur Ql Scn Negative Negative Result Comment: Cutoff thres hold at 25 ng/mL. Performed By: #### UTOX2 ### # [facility] CLIA [id number] [address] OF [facility] STAPHYLOCOCCUS AUREUS AND MR SA SCREEN, PCR, NASAL Collected: 05/01/2025 6:25 PM Status: F Source: [facility] Order Comment: Specimen Type : SWAB Ordering Facility: [facility] Address: [address] [place] [address] TYPE CODE TESTS RESULT OUT OF RANGE REFERENCE UNITS LAB 40874-8([facility]) SA+MRSA Pnl Nose IZABELLA+probe Not Detected Not Detected Performed By: #### SAPCR ### # [facility] CLIA [id number] [address] [place] [address] [place] XR CHEST 1V FRONTAL Observed: 05/01/2025 6:14 PM Status: F Source: [facility] * * *Final Report* * * DATE OF EXAM: May 01 2025 6:14PM AKX [id number] - XR CHEST 1V FRONTAL / PROCEDURE REASON: Evaluate tube, line, or lead position * * * * Physician Interpretation * * * * EXAMINATION: CHEST RADIOGRAPH (SINGLE VIEW AP OR PA) CLINICAL HISTORY: Evaluate tube, line, or lead position MQ: XC1_5 Comparison: Chest radiographs 03/24/2025 and 03/17/2023. RESULT: Lines, tubes, and devices: A pre-existing right internal jugular port catheter terminates in profile with the right atrium. Overlying cardiac monitoring leads. Lungs and pleura: Interval improved bibasilar aeration. Cardiomediastinal silhouette: Borderline/mild prominent cardiac silhouette. Other: None. IMPRESSION: Interval improved bibasilar aeration. Call Worker Person: EMILI Transcribe Date/Time: May 02 2025 7:20A Dictated by : BENJY KUMAR MD This examination was interpreted and the report reviewed and electronically signed by: BENJY KUMAR MD on May 02 2025 7:23AM EST [id number] Observed: 05/01/2025 5:36 PM Status: COMPLETED Source: [facility] ID: [id number] Author: WAN ROMAN APRN.EDSON Service: ? Author Type: Nurse Practitioner Type: Progress Notes Filed: 05/02/2025 10:26 Note Text: Critical Care Transport Note Patient Name: Angel Keating Service Date: 05/01/2025 Referring Physician: Sagrario Accepting Physician: Aleks Referring Facility: [facility] Accepting Facility: [facility] SUBJECTIVE/CHIEF COMPLAINT: Weakness REASON FOR TRANSPORT: Need for interventional neuroradiology not available at sending History of Present Illness: The following history is what was known to CCT team at time of given care and summarized through: patient interview and referring nursing report Angel Keating is a 54 year old male with a past medical history significant for 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 He presented to [facility] on 05/01/25 for evaluation of right sided weakness and worsening aphasia. Last Known Well was 1900 the previous evening, 04/30. On arrival to the ED, his NIH score was initially 9, and then 11 on repeat exam. CTA showed left M1 occlusion. As he is outside the thrombolytic window, transfer was requested for potential neurointervention. At this time, the physician managing the patient requested transfer to [facility] for tertiary and/or quaternary services unavailable at the referring facility. Patient condition at time of exam was: Acutely ill and critically ill. Due to the unique circumstances of the patient, it was determined that this was the closest, most appropriate facility by referring physician. The physician managing the patient requested the [facility] Critical Care Transport Team transport and treat the patient for the purpose of tertiary care, evaluation, and management of his acute neurologic condition(s). Air medical transport was requested to reduce the pzp-ky-[id number] time, 12 minutes by air vs. approximately 50 minutes by ground, with the potential for increased ground transport time secondary to: distance between facilities and the patient's condition requiring an emergent procedure or evaluation not available at the referring facility ROS: Could not obtain due to patient's mental status/critical illness PAST MEDICAL HISTORY: As above in HPI PAST SURGICAL HISTORY: Glioblastoma Resection ALLERGIES: NKDA Reported SOCIAL HISTORY: Unable to ascertain at time of transfer FAMILY HISTORY: Unable to ascertain at time of transfer HOME MEDICATIONS: Modafinil Dexamethasone Mepron Vimpat Protonix Valtrex Medications Administered by Referring Facility: None OBJECTIVE: Recent Labs, Diagnostics AND Procedure Reports reviewed as available. Referring Facility Labs CBC: WBC 5.6k, Hgb 11.8, Hct 34, Plt 36K POC Glucose 131 Remainder of labs in process at time of transfer Diagnostics AND Procedure Reports ECG: Not available for review at time of transfer, SB on monitor, rates in high 30s, low 40s CXR: Not available for review CT Scan: CT Brain without hemorrhage, CTA with L M1 occlusion Invasive Lines/Devices/Tubes Placed by Referring Facility: Pre-existing right chest port PHYSICAL EXAM: Upon CCT Arrival at Referring Facility Vital Signs: HR 46bpm, BP 157/101mmHg, RR 16, SpO2 99% Oxygen/Ventilator Settings: RA General appearance: alert, pleasant, mild distress. HEENT: normocephalic, EOMI, PERRL. Mucous membranes moist, right lower facial droop Respiratory: clear to auscultation bilaterally, no respiratory distress, no wheezing. Cardiovascular: regular rate and rhythm, bradycardic. Gastrointestinal: soft, nontender, nondistended. Genitourinary: Deferred Musculoskeletal: No obvious deformity Skin: warm and dry Neurologic: GCS 15, alert and participatory NIHSS: 1a) LOC: 0- alert and responsive. 1b) LOC questions (age/month): 1- one correct. 1c) LOC commands (close eyes/medical device): 0- both correct. 2) Best gaze: 0- normal gaze. 3) Visual land:0- no visual loss. 4) Facial palsy: 2- partial paralysis. 5a) Motor left arm: 0- no drift. 5b) Motor right arm: 1- drift but does not hit bed. 6a) Motor left le- no drift. 6b) Motor right le- some antigravity effort, but cannot sustain. 7) Limb ataxia: 0- no ataxia (or aphasic, hemiplegic). 8) Sensory: 0- normal. 9) Best language: 1- mild-mod aphasia (comprehensible). 10) Dysarthria (read word list): 2- severe, unintelligible or mute. 11) Extinction/neglect (sensory/visual): 0- normal, none detected (or visual loss alone). Total: 9 CRITICAL CARE COURSE Upon bedside arrival at referring facility the patient was assessed and detailed physical exam performed. Initial exam findings as described above. The patient was placed on the transport monitor and all transport equipment transitioned in standard fashion. The patient was transferred to the transport cot and transported to the Aircraft and loaded hot without incident. The patient was medically managed, monitored, and reassessed during transport. Medications Managed AND Administered by CCT: None Procedures Performed by CCT: Peripheral IV Attempted ASSESSMENT/PLAN: Angel Keating is a 54 year old male that presented with stoke-like symptoms and was found to have an acute left AK occlusion. #Acute Ischemic Left MCA Stroke Acute Left M1 occlusion on CTA with known history of left frontal GBM and seizures controlled with vimpat. Outside thrombolytic window, transfer for thrombectomy eval. Glucose 131 - Goal SBP <180 while awaiting intervention, maintaining on own - Additional IV access attempted but unsuccessful - Close neurologic monitoring, maintaining own airway - HOB flat in setting of occlusive stroke - Expedite transfer to [facility] - DNR CCA DNI - Expressed by patient, mother to bring paperwork #Thrombocytopenia In setting of malignancy and chemotherapy - Monitor for bleeding, value passed to receiving The transport was completed without significant incident or change in the patient's status. The patient was transported to the [facility] by Rotor (Helicopter) for tertiary and/or quaternary evaluation and management of his Emergent and Critical neurologic condition(s). Upon arrival to the receiving facility, a rbsq-yx-wgcq report was given to bedside nursing staff in CVICU. Patient care was transferred. The patient condition was Critical at the time of transfer. Vital Signs at time care transferred to the receiving facility unit: HR 42bpm, Rhythm SB, BP 176/118 mmHg, RR 19, SpO2 98% on RA SPECIAL EQUIPMENT: None MODE OF TRANSPORT: Rotor (Helicopter) CRITICAL CARE TIME: I personally performed 31 minutes of critical care time exclusive of separately billable procedures, ambulance charges and treating other patients. This was necessary to treat or prevent further deterioration of the following condition(s): Acute stroke and PATENT PARALEGAL impairment which the patient had and/or had a high probability of suddenly developing. SIGNATURE: Wan Roman APRN.CNP Acute Care Nurse Practitioner [facility] Critical Care Transport Team CA-I SERPL-SCNC Collected: 05/01/2025 4:30 PM Status : F Source: [facility] Order Comment: Specimen Type : BLOOD SPECIMEN Ordering Facility: [facility] Address: [address] [place] [address] TYPE CODE TESTS RESULT OUT OF RANGE REFERENCE UNITS LAB 34321-1([facility]) Ca-I adj pH7.4 Bld-sCnc 1.08 1.08-1.30 mmol/L LAB 08296-3([facility]) Ca-I BldV-mCnc 1.10 1.08-1.30 mmol/L Performed By: #### 1995-0 ## ## [facility] CLIA [id number] [address] PT PNL PPP Collected: 05/01/2025 4:30 PM Status: F Source: [facility] Order Comment: Specimen Type : BLOOD SPECIMEN Ordering Facility: [facility] Address: [address] [place] [address] TYPE CODE TESTS RESULT OUT OF RANGE REFERENCE UNITS LAB 5902-2(LOINC) Prothrombin time 11.0 9.7-13.0 sec LAB 6301-6(LOINC) INR PPP 1.0 0.9-1.3 Result Comment: Vitamin K An tagonist (VKA) Therapeutic Range: INR 2 to 3 (Target INR of 2.5) Note: For patients treated with VKA drugs, such as warfarin, the [place] [employer] 2012 Guideline recommends a therapeutic INR range of 2 to 3 (target INR of 2.5). This recommendation includes high-risk patients with antiphospholipid syndrome with previous arterial or venous thromboembolism, current-generation mechanical or bioprosthetic aortic heart valve replacement. Note: Patients with mechanical aortic valve replacement and additional risk factors for thromboembolic events (atrial fibrillation, previous thromboembolism, LV dysfunction, hypercoagulable conditions) or an older generation mechanical AVR (i.e., ball in-Cage) or any mechanical MVR should have a INR therapeutic range of 2.5 to 3.5 (target INR of 3). Terry DIEHL, et al. Chest 2012, 141:7S-47S Tabby RA, et al. [facility] 2017, 70: 252-289 Performed By: #### 35907-6, 38466-8 #### [facility] CLIA [id number] [address] APTT PPP Collected: 4:30 PM Status: F Source: [facility] Order Comment: Specimen Type : BLOOD SPECIMEN Ordering Facility: [facility] Address: [address] [place] [address] TYPE CODE TESTS RESULT OUT OF RANGE REFERENCE UNITS LAB 70346-2([facility]) aPTT PPP 24.9 23.0-32.4 sec Performed By: #### 02616-6, 36673-2 #### [facility] CLIA [id number] [address] CBC W AUTO DIFF BLD Collected: 05/01/2025 4:[address] atus: F Source: [facility] Order Comment: Specimen Type : BLOOD SPECIMEN Ordering Facility: [facility] Address: [address] [place] [address] TYPE CODE TESTS RESULT OUT OF RANGE REFERENCE UNITS LAB 6690-2(LOINC) WBC # Bld Auto 5.15 3.70-11.00 k/uL LAB 789-8(LOINC) RBC # Bld Auto 3.50 Low 4.20-6.00 m/ uL LAB 718-7(LOINC) Hgb Bld-mCnc 12.2 Low 13.0-17.0 g/dL LAB 4544-3(LOINC) Hct VFr Bld Auto 35.2 Low 39.0-51.0 % LAB 787-2(LOINC) MCV RBC Auto 100.6 High 80.0-100.0 fL LAB 785-6(LOINC) MCH RBC Qn Auto 34.9 High 26.0-34.0 p g LAB 786-4([facility]) MCHC RBC Auto-mCnc 34.7 30.5-36.0 g/dL LAB 83995-8([facility]) RDW RBC-Rto 15.8 High 11.5-15.0 % LAB 777-3([facility]) Platelet # Bld Auto 65 Low 150-400 k/uL Result Comment: No clot dete cted. LAB 45573-8([facility]) PMV Bld Auto 11.2 9.0-12.7 fL LAB 770-8([facility]) Neutrophils/leuk NFr Bld Auto 84.0 % LAB 751-8([facility]) Neutrophils # Bld Auto 4.33 1.45-7.50 k/uL LAB 736-9([facility]) Lymphocytes/leuk NFr Bld Auto 6.6 % LAB 731-0([facility]) Lymphocytes # Bld Auto 0.34 Low 1.00-4.00 k/uL LAB 5905-5([facility]) Monocytes/leuk NFr Bld Auto 4.3 % LAB 742-7([facility]) Monocytes # Bld Auto 0.22 <0.87 k/uL LAB 713-8([facility]) Eosinophil/leuk NFr Bld Auto 0.0 % LAB 711-2([facility]) Eosinophil # Bld Auto <0.03 <0.46 k/uL LAB 706-2([facility]) Basophils/leuk NFr Bld Auto 0.4 % LAB 704-7([facility]) Basophils # Bld Auto <0.03 <0.11 k/uL LAB 38261-1([facility]) Imm Granulocytes/christina k NFr Bld Auto 4.7 % LAB 64376-0([facility]) Imm Granulocytes # Bld Auto 0.24 High <0.10 k/uL LAB 63977-2([facility]) nRBC/100 WBC Bld-Rto 0.8 /100 WBC LAB 771-6([facility]) nRBC # Bld Auto 0.04 High <0.01 k/u L LAB 71527-7([facility]) Differential method Bld Auto Performed By: #### 47051-0 # ### [facility] CLIA [id number] [address] PHOSPHATE SERPL-MCNC Collected: 05/01/2025 4:30 PM S tatus: F Source: [facility] Order Comment: Specimen Type : BLOOD SPECIMEN Ordering Facility: [facility] Address: [address] [place] [address] TYPE CODE TESTS RESULT OUT OF RANGE REFERENCE UNITS LAB 2777-1(LOINC) Phosphate SerPl-mCnc 3.6 2.7-4.8 mg/dL Performed By: #### 2777-1 ## ## [facility] CLIA [id number] [address] DEPRECATED HGB A1C BLD Collected: 05/01 4:30 PM Status: F Source: [facility] Order Comment: Specimen Type : BLOOD SPECIMEN Ordering Facility: [facility] Address: [address] [place] [address] TYPE CODE TESTS RESULT OUT OF RANGE REFERENCE UNITS LAB 4548-4(LOINC) HbA1c MFr Bld 5.8 High 4.3-5.6 % Result Comment: [place] Elaine betes Association guidelines indicate that patients with HgbA1c in the range 5.7-6.4% are at increased risk for development of diabetes, and intervention by lifestyle modification may be beneficial. HgbA1c greater or equal to 6.5% is considered diagnostic of diabetes. LAB 89416-6(LOINC) Est. average glucose Bld gHb Est-mCnc 120 mg/dL Result Comment: eAG: (Estima cassandra average glucose) is a calculated value from HgbA1c and is personal service representative of the average blood glucose level in the last 2-3 month period. Performed By: #### 06592-2 # ### [facility] CLIA [id number] [address] [place] [address] OF [place] COMP METAB 2000 PNL SERPL Collected: 4:30 PM Status: F Source: [facility] Order Comment: Specimen Type : BLOOD SPECIMEN Ordering Facility: [facility] Address: [address] [place] [address] TYPE CODE TESTS RESULT OUT OF RANGE REFERENCE UNITS LAB 2885-2(LOINC) Prot SerPl-mCnc 5.7 Low 6.3-8.0 g/dL LAB 1751-7(LOINC) Albumin SerPl-mCnc 3.1 Low 3.9-4.9 g/dL LAB 63517-3(LOINC) Calcium SerPl-mCnc 8.2 Low 8.5-10.2 mg/dL LAB 1975-2(LOINC) Bilirub SerPl-mCnc 0.5 0.2-1.3 mg/dL LAB 6768-6(LOINC) ALP SerPl-cCnc 78 38-113 U/L LAB 04755-9(LOINC) AST SerPl w P-5'-P-cCnc 17 14-40 U/L LAB 1743-4(LOINC) ALT SerPl w P-5'-P-cCnc 23 10-54 U/L LAB 2345-7(INC) Glucose SerPl-mCnc 138 High 74-99 mg/dL Result Comment: The [place] Diabetes Association (ADA) provides guidance for cutoff values for fasting glucose and random glucose. The ADA defines fasting as no caloric intake for at least 8 hours. Fasting plasma glucose results between 100 to 125 mg/dL indicate increased risk for diabetes (prediabetes). Fasting plasma glucose results greater than or equal to 126 mg/dL meet the criteria for diagnosis of diabetes. In the absence of unequivocal hyperglycemia, results should be confirmed by repeat testing. In a patient with classic symptoms of hyperglycemia or hyperglycemic crisis, random plasma glucose results greater than or equal to 200 mg/dL meet the criteria for diagnosis of diabetes. Reference: Standards of Medical Care in Diabetes 2016, [place] Diabetes Association. Diabetes Care. 2016.39(Suppl 1). LAB 3094-0(LOINC) BUN SerPl-mCnc 23 9-24 mg/dL LAB 2160-0(LOINC) Creat SerPl-mCnc 0.78 0.73-1.22 mg/dL LAB 2951-2(LOINC) Sodium SerPl-sCnc 141 136-144 mmol/L LAB 2823-3(LOINC) Potassium SerPl-sCnc 3.7 3.7-5.1 mmol/L LAB 2075-0(LOINC) Chloride SerPl-sCnc 107 98-107 mmol/L LAB 2027-9(LOINC) CO2 SerPl-sCnc 22 22-30 mmol/L LAB 1863-0(LOINC) Anion Gap4 SerPl-sCnc 12 8-15 mmol/L LAB 15845-8(LOINC) eGFRcr SerPlBld CKD-EPI 2020 105 >=60 mL/min/1. 73m??? Result Comment: Estimated Gl omerular Filtration Rate (eGFR) is calculated using the 2020 CKD-EPI creatinine equation. This equation utilizes serum creatinine, sex, and age as parameters. The creatinine assay has traceable calibration to isotope dilution-mass spectrometry. Refer to KDIGO guidelines for clinical interpretation. In patients with unstable renal function, e.g. those with acute kidney injury, the eGFR may not accurately reflect actual GFR. Performed By: #### 54357-2, 3016-3, 63166-9, 79637-9 #### [facility] CLIA [id number] [address] [place] [address] [place] [facility] LIPID 1996 PNL SERPL Collected: 025 4:30 PM Status: F Source: [facility] Order Comment: Specimen Type : BLOOD SPECIMEN Ordering Facility: [facility] Address: [address] [place] [address] TYPE CODE TESTS RESULT OUT OF RANGE REFERENCE UNITS LAB 2093-3(LOINC) Cholest SerPl-mCnc 184 <200 mg/dL Result Comment: <200 mg/dL, Desirable 200-239 mg/dL, Borderline high >239 mg/dL, High LAB 2571-8(LOINC) Trigl SerPl-mCnc 160 High <150 mg/dL Result Comment: <150 mg/dL, Normal 150-199 mg/dL, Borderline high 200-499 mg/dL, High >499 mg/dL, Very high LAB 2085-9(LOINC) HDLc SerPl-mCnc 66 >39 mg/dL Result Comment: 40-59 mg/dL, Acceptable >59 mg/dL, High: Negative risk factor for coronary heart disease <40 mg/dL, Low: Positive risk factor for coronary heart disease LAB 16844-7(LOINC) LDLc SerPl Calc-mCnc 91 <100 mg/dL Result Comment: <100 mg/dL, Optimal 100-129 mg/dL, Near optimal/above optimal 130-159 mg/dL, Borderline high 160-189 mg/dL, High >189 mg/dL, Very high Secondary prevention optimal LDL Cholesterol levels are recommended to be <70 mg/dL LDL cholesterol is calculated using the Gambino-NIH equation. LAB 63453-6(LOINC) NonHDLc SerPl-mCnc 118 <130 mg/dL Result Comment: <130 mg/dL, Optimal 130-159 mg/dL, Near optimal/above optimal 160-189 mg/dL, Borderline high 190-219 mg/dL, High >219 mg/dL, Very high Secondary prevention optimal non HDL Cholesterol levels are recommended to be <100 mg/dL LAB 63007-8(LOINC) VLDLc SerPl Calc-mCnc 25 <30 mg/dL LAB 9830-1(LOINC) Cholest/HDLc SerPl 2.79 <5.10 LAB 91206-9(LOINC) LDLc/HDLc SerPl 1.38 <2.54 Result Comment: Reference: 1. National Cholesterol Education Program ATP III Guideline At-A-Glance Quick Desk Reference: National Heart, Lung, and Blood [place]. National Institutes of Health. 2001: NIH Publication No. 01-3305. 2. An International Atherosclerosis Society position paper: global recommendations for the management of dyslipidemia: executive summary, Atherosclerosis. 2014: 232(2):410-413. LAB FT FASTING TIME 8 hrs Performed By: #### 55173-7, 3016-3, 28463-8, 25130-1 #### [facility] CLIA [id number] [address] [place] [address] [place] MAGNESIUM SERPL-MCNC Collected: 05/01/2025 4:30 PM S tatus: F Source: [facility] Order Comment: Specimen Type : BLOOD SPECIMEN Ordering Facility: [facility] Address: [address] [place] [address] TYPE CODE TESTS RESULT OUT OF RANGE REFERENCE UNITS LAB 51923-1([facility]) Magnesium SerPl-mCnc 2.0 1.7-2.3 mg/dL Performed By: #### 71654-0, 3016-3, 23726-4, 36538-7 #### [facility] CLIA [id number] [address] [place] TSH SERPL-ACNC Collected: 05/01/2025 4:30 PM Status: F Source: [facility] Order Comment: Specimen Type : BLOOD SPECIMEN Ordering Facility: [facility] Address: [address] [place] [address] TYPE CODE TESTS RESULT OUT OF RANGE REFERENCE UNITS LAB 82932-5(LOINC) TSH SerPl DL<=0.005 mIU/L-aCnc 1.410 0.270-4.200 mIU/L Performed By: #### 89601-4, 3016-3, 15748-5, 55522-9 #### [facility] CLIA [id number] [address] TYPE + SCREEN Collected: 05/01/2025 4:30 PM Status: F Source: [facility] Order Comment: Specimen Type : BLOOD SPECIMEN Ordering Facility: [facility] Address: [address] [place] [address] TYPE CODE TESTS RESULT OUT OF RANGE REFERENCE UNITS LAB [id number] ABO A LAB [id number] RH Negative LAB [id number] ANTIBODY SCREEN Negative LAB [id number] TYPE AND SCREEN EXPIRATION 05/04/2025 23:59 Performed By: #### TSCR #### [facility] CLIA [id number] [address] PLAN OF CARE Observed: 05/01/2025 4:00 PM Status: COMPLETED Source: [facility] HNO ID: [id number] Author: KARLA HUITRON APRN.MANUFACTURING ENGINEERING MANAGER Service: Neurology General Author Type: Nurse Practitioner Type: Plan of Care Filed: 05/01/2025 16:08 Note Text: NIL/NSICU Post Procedure Note Date of procedure: May 01, 2025 Indication for procedure: L MCA M1 segment occlusion Procedure performed: Thrombectomy Findings during procedure: - Left MCA M1 segment occlusion. - Status post unsuccessful mechanical thrombectomy with TICI 0 recanalization score. Post procedure exam: Alert expressive aphasia PERRL, EOMI, VFF Right facial droop, speech clear Follows commands, [place] RU/LE 4+/5 drift, DOC/LE 5/5 sustains AG Diminished sensation on the right NIHSS: 1(a). Mental Status - LOC 0 = Alert and Attentive 1(b). LOC Questions 1 = Correct age OR month 1(c). LOC-Commands 0 = Both 2. Gaze 0 = Normal 3. Visual Land 0 = Full 4. Facial Weakness 2 = Complete, lower 5(a). Left Arm 0 = No drift 5(b). Right Arm 1 = Drift, but does not hit bed 6(a). Left Leg 0 = No drift 6(b). Right Leg 1 = Drift, but does not hit bed 7. Ataxia 0 = Absent 8. Sensory 1 = Mild to Moderate 9. Aphasia 1 = Mild to Moderate 10. Dysarthria 0 = Absent 11. Neglect 0 = None NIHSS Total (0-42): 7 Right radial access site with TR band in place. distal pulse intact 16cc air Keep in place for 2h post procedure(1700) Deflate pre protocol Post procedure plan: Antiplatelet(s): held for thrombocytopenia Blood pressure goals: 90-180 Head of bed: 30 degrees IV Fluids: NS @75 Family and bedside nursing updated on plan. Karla Huitron APRN.MANUFACTURING ENGINEERING MANAGER May 01, 2025 4:01 PM CONSULT Observed: 05/01/2025 3:40 PM Status: COMPLETED Source: [facility] HNO ID: [id number] Author: NIMA SUÁREZ MD Service: Neurology General Author Type: Physician Type: Consults Filed: 05/01/2025 16:01 Note Text: NEURO STROKE INITIAL CONSULT SERVICE DATE: 05/01/2025 SERVICE TIME: 1300 REQUESTING PHYSICIAN: Dr Fan PCP: No primary care provider on file. REASON FOR STROKE EVALUATION: aphasia Subjective HPI: This is a 54 year old male with hx of L FT Glioblastoma, s/p Gross total resection and subsequent chemoradiation, on Lomustine, known thrombocytopenia, who presented to [facility] with worsening speech/aphasia, 04/30 also noted to have worsening motor deficits on the R side, today found to have LM1 occlusion (?new) for which he was transferred emergently to [facility] [facility] for potential mechanical thrombectomy. iNIHSS of > 9 for above symptoms, on arrival NIHSS fluctuated between 7-10, unclear if he was pressure dependent. After weighing risks vs benefits, decision made to consider EVT for potential MCa recanalization. He had notable thrombocytopenia at 34 for which he received 1 PUplatelets. Pre-admission Was patient on antithrombotic agent prior to admission: No Was patient on lipid lowering agent prior to admission: No Pre-morbid mRS: Premorbid Modified Pike Score: 1 - No significant disability despite symptoms - able to carry out all usual duties and activities PAST MEDICAL HISTORY Diagnosis Date At risk for seizures 03/19/2023 due to left temporal glioblastoma GBM (glioblastoma multiforme) (HCC) 03/19/2023 WHO Grade 4 GBM; IDH1 R132H negative (wildtype); ATRX retained (wildtype); BRAF V600E negative (wildtype); p53 strong up to 40%; Ki67 up to 25%, MGMT unmethylated PAST SURGICAL HISTORY Procedure Laterality Date APPENDECTOMY 1976 removed as part of internal bleeding due to trauma COLONOSCOPY FLX DX W/COLLJ SPEC WHEN PFRMD Colonoscopy ESOPHAGOGASTRODUODENOSCOPY TRANSORAL DIAGNOSTIC EGD EXCIS SUPRATENT BRAIN TUMOR 03/19/2023 Left-sided craniotomy for temporal mass resection by Dr. Evans; path = GBM ORTHOPEDICS SURGERY HX 1996 knee surgery SHX CRANIOTOMY Left 03/19/2023 SOCIAL HISTORY[1] FAMILY HISTORY Problem Relation Age of Onset Diabetes Father Coronary Artery Disease Father Stroke Father Breast Cancer Mother None Sister Anesthesia Problems No Family History ALLERGIES No Known Allergies MEDICATION Pre-admission Prescriptions Prior to Admission[2] Current modafinil (PROVIGIL) 100 mg tabletTake 1 tablet in the morning. If needed take another tablet at 2 pmDisp: 60 tabletRfl: 2 dexAMETHasone (DECADRON) 2 mg tabletdecrease to 10 mg daily starting on 04/06Disp: 50 tabletRfl: 2 Miscellaneous Medical Supply kitOutpatient physical therapyDisp: 1 kitRfl: 11 atovaquone (MEPRON) 750 mg/5 mL oral liquidTake 10 mL by mouth daily with breakfast.Disp: 300 mLRfl: 1 dexAMETHasone (DECADRON) 6 mg tabletTake 1 tablet by mouth two times a day with meals.Disp: 60 tabletRfl: 1 lacosamide (VIMPAT) 150 mg tabTake 1 tablet by mouth two times a day for 180 days.Disp: 180 tabletRfl: 1 valACYclovir (VALTREX) 500 mg tabletTake 1 tablet by mouth once daily.Disp: 30 tabletRfl: 2 traZODone (DESYREL) 50 mg tabletTAKE 1 TABLET BY MOUTH EVERYDAY AT BEDTIMEDisp: 30 tabletRfl: 2 (Patient taking differently: TAKE 1 TABLET BY MOUTH EVERYDAY AT BEDTIME) pantoprazole DR (PROTONIX) 40 mg tabletTake 1 tablet by mouth once daily.Disp: 30 tabletRfl: 2 ondansetron (ZOFRAN) 8 mg tabletTake one tablet by mouth on an empty stomach in the evening one hour prior to chemo. Then take one tablet 24 hours after chemo. May repeat dose every 8-12 hours if needed to prevent nauseaDisp: 30 tabletRfl: 2 midazolam (NAYZILAM) 5 mg/spray (0.1 mL) nasal sprayUse 1 [place] in the nose as needed for up to 10 days. May repeat dose in alternate nostril after 10 minutes based on response and tolerability.Disp: 4 EachRfl: 2 acetaminophen (TYLENOL) 325 mg tablet2 tablets by ORAL/FEEDING TUBE route every 4 hours as needed for pain.Disp: Rfl: REVIEW OF SYSTEMS Deferred d.t emergent condition Objective PHYSICAL EXAM Vital Signs: BP 144/96 Pulse (!) 43 Temp 37.1 ?C (98.7 ?F) (Axillary) Resp 16 Ht 177.8 cm (5' 10) Wt 96.2 kg (212 lb) SpO2 100% BMI 30.42 kg/m? NEUROLOGICAL: LOC: 0 - alert and responsive 0 LOC Questions: 1 - one correct 1 LOC Commands: 0 - both correct 0 Best Gaze: 0 - normal gaze 0 Visual Land: 0 - no visual loss 0 Facial Palsy: 2 - partial paralysis 2 Motor Left Arm: 0 - no drift 0 Motor Right Arm: 1 - drift but does not hit bed 1 Motor Left Le - no drift 0 Motor Right Le - drift but does not hit bed 1 Limb Ataxia: 0 - no ataxia (or aphasic, hemiplegic) 0 Sensory: 1 - mild to moderate unilateral loss but patient aware of touch (or aphasic, confused) 1 Best Language: 1 - mild-mod aphasia (comprehensible) 1 Dysarthria: 0 - normal 0 Extinction and Inattention: 0 - normal, none detected (or visual loss alone) 0 Initial NIHSS Score: 7 (05/01/25 1356 : Karla Huitron, NETWORK ANALYST.MANUFACTURING ENGINEERING MANAGER) 7 General/Mental status: Awake, aphasic Comprehension: Intact Cranial Nerves: pupils are symmetric and equally reactive. Visual land full to confrontation. No gaze deviation noted. No static or evoked nystagmus. Face appears symmetric bilaterally and there is no ptosis. Uvula midline. Tongue is central upon protrusion. Ophthalmoscope: Deferred Motor exam: antigravity strength noted bilaterally Motor Tone: Normal No involuntary movements Sensory: possible R sensory loss vs confusion Gait: Not assessed STROKE CARE PATH [place] METRICS Initial NIHSS Score: 7 Date Patient Last Known Well: 04/30/25 Time Patient Last Known Well: 1900 Date of Patient Arrival at THIS Facility: 05/01/25 Time of Patient Arrival at THIS Facility: [address] Imaging Review: CT Imaging reviewed, NO acute infarct/hemorrhage seen CTA Imaging Review: CTA Imaging reviewed, POSITIVE large vessel occlusion or severe stenosis seen Vessel Occlusion/Stenosis Details (Specify): L M1 occlusion Endovascular Therapy Details Candidate for Endovascular Therapy (Last Known Well within 24 hours): No - Negative for evidence of large vessel occlusion Joe Coma Scale Totals (Calculated): 14 STROKE 9 CARE AND PREVENTION CHECKLIST 1. Is the patient currently on an ANTITHROMBOTIC medication (Antiplatelet or Anticoagulant): Aspirin 2. Does the patient have known AFIB/FLUTTER: No 3. Is the patient on a STATIN: Atorvastatin 40 mg 4. Is the patient on VTE prophylaxis: Pharmacological prophylaxis, Mechanical prophylaxis Pharmacological intervention type: Lovenox Mechanical intervention type: Intermittent compression stocking(s) 5. GLYCEMIC Control Medications: Not Diabetic 6. Stroke BP Goals: SBP 130-160 Stroke BP Control: BP well controlled 7. Stroke IVF/Nutrition: IVF 8. TEMPERATURE Control: Normothermic 9. Does the patient need THERAPY: Yes Therapy Service Involvement: PT, OT, ST Stroke Care and Prevention (personally reviewed by Nima Suárez MD): Daily Rounding Date: 05/01/25 Daily Rounding Time: 7697 PROBLEM LIST: Active Problems: Obesity, Class I, BMI 30-34.9 (POA: Yes) At risk for seizures (POA: Yes) Cerebral edema (HCC) (POA: Yes) GBM (glioblastoma multiforme) (HCC) (POA: Yes) Thrombocytopenia (POA: Yes) Acute ischemic left MCA stroke (HCC) (POA: Yes) Hemiparesis of right dominant side (HCC) (POA: Yes) Aphasia due to acute cerebrovascular accident (CVA) (HCC) (POA: Yes) Sinus bradycardia (POA: Yes) Metabolic acidosis (POA: Yes) Hemiparesis due to acute cerebrovascular disease (HCC) (POA: Yes) Dysarthria due to acute stroke (HCC) (POA: Unknown) History of seizure (POA: Yes) Resolved Problems: * No resolved hospital problems. * Impression/Recommendations IMPRESSION -- Acute aphasia and worsening R sided weakness with some fluctuant symptoms -- Evidence of LM1 occlusion on CTA, suspected acute thromboembolism, vs remote MCA occlusion; attempted thrombectomy unsuccessful -- known L FT GBM and local edema s/p resection/chemorx -- assisted use of ASM with Lacosamide 150 BID Stroke Mechanism PLAN NSICU care Liberalization of BP up to 180 systolic is reasonable (would avoid excessive elevations given thrombocytopenia and GBM hx) Check EEG monitoring ASM optimization per primary MRI brain when able Plan discussed with primary team SIGNATURE: Nima Suárez MD PATIENT NAME: Angel Keating DATE: May 01, 2025 TIME: 3:40 PM [1] Social History Tobacco Use Smoking status: Former Current packs/day: 1.00 Average packs/day: 1 pack/day for 4.0 years (4.0 ttl pk-yrs) Types: Cigarettes, Cigars Smokeless tobacco: Never Vaping Use Vaping status: Never Used Substance Use Topics Alcohol use: Not Currently Comment: three beers a month - per pt [id number] Drug use: Never [2] modafinil (PROVIGIL) 100 mg tablet, Take 1 tablet in the morning. If needed take another tablet at 2 pm, Disp: 60 tablet, Rfl: 2 dexAMETHasone (DECADRON) 2 mg tablet, decrease to 10 mg daily starting on 04/06, Disp: 50 tablet, Rfl: 2 Miscellaneous Medical Supply kit, Outpatient physical therapy, Disp: 1 kit, Rfl: 11 atovaquone (MEPRON) 750 mg/5 mL oral liquid, Take 10 mL by mouth daily with breakfast., Disp: 300 mL, Rfl: 1 dexAMETHasone (DECADRON) 6 mg tablet, Take 1 tablet by mouth two times a day with meals., Disp: 60 tablet, Rfl: 1 lacosamide (VIMPAT) 150 mg tab, Take 1 tablet by mouth two times a day for 180 days., Disp: 180 tablet, Rfl: 1 valACYclovir (VALTREX) 500 mg tablet, Take 1 tablet by mouth once daily., Disp: 30 tablet, Rfl: 2 traZODone (DESYREL) 50 mg tablet, TAKE 1 TABLET BY MOUTH EVERYDAY AT BEDTIME (Patient taking differently: TAKE 1 TABLET BY MOUTH EVERYDAY AT BEDTIME), Disp: 30 tablet, Rfl: [address] (PROTONIX) 40 mg tablet, Take 1 tablet by mouth once daily., Disp: 30 tablet, Rfl: 2 ondansetron (ZOFRAN) 8 mg tablet, Take one tablet by mouth on an empty stomach in the evening one hour prior to chemo. Then take one tablet 24 hours after chemo. May repeat dose every 8-12 hours if needed to prevent nausea, Disp: 30 tablet, Rfl: 2 midazolam (NAYZILAM) 5 mg/spray (0.1 mL) nasal spray, Use 1 [place] in the nose as needed for up to 10 days. May repeat dose in alternate nostril after 10 minutes based on response and tolerability., Disp: 4 Each, Rfl: 2 acetaminophen (TYLENOL) 325 mg tablet, 2 tablets by ORAL/FEEDING TUBE route every 4 hours as needed for pain., Disp: , Rfl: BRIEF OP NOT Observed: 05/01/2025 3:02 PM Status: [id number] Author: JONNY FAN MD Service: Neuroendovascular Intervention Author Type: Physician Type: Brief Op Note Filed: 05/01/2025 15:09 Note Text: BRIEF OP/PROCEDURE NOTE NEURO INTERVENTIONAL PROCEDURE DATE: May 01, 2025 LOG ID: [id number] Surgery/Procedure Date: 05/01/2025 Incision/Procedure Start Time: 2:18 PM Incision Close/Procedure End Time: 2:55 PM Anesthesia: General PRIMARY PROCEDURALIST: Jonny Fan M.D. DAIRY FEED SALES CONSULTANT(S): N/A. CASE STATUS: Inpatient/Emergent PROCEDURE: Arterial Access Date: 05/01/25 Arterial Access Time : 1418 First Pass (Device) Date: 05/01/25 First Pass (Device) Time: 1439 TICI Date: 05/01/25 TICI Time: 1447 TICI: (0) No Perfusion Factors impacting time of Endovascular Therapy initiation: Other (Specify), Indications: Left MCA M1 occlusion. Access Site: Right common femoral artery. PRE-PROCEDURE DIAGNOSIS: Left MCA M1 segment occlusion. POST-PROCEDURE DIAGNOSIS: Same. FINDINGS: - Left MCA M1 segment occlusion. - Status post unsuccessful mechanical thrombectomy with TICI 0 recanalization score. ESTIMATED BLOOD LOSS: Scant COMPLICATIONS: None RADIATION DOSE: Exceeded 5 Gy - No SPECIMENS: Not Applicable PLAN: - TR-band at 16 cc of air fully inflated till 1700 hours. - SaO2 from the right index finger. - SBP goal 90-180 mmHg. - Vascular neurology consult. SIGNATURE: Jonny Fan MD PATIENT NAME: Angel Keating DATE: May 01, 2025 TIME: 3:02 PM HISTORY PHYSICAL Observed: 05/01/2025 2:54 PM Status: COMPLETED Source: [facility] HNO ID: [id number] Author: KARLA HUITRON APRN.CNP Service: Neurology ICU Author Type: Nurse Practitioner Type: H&P Filed: 05/01/2025 14:55 Note Text: SERVICE DATE: 05/01/2025 SERVICE TIME: 2:54 PM NEUROLOGICAL INTENSIVE CARE UNIT HISTORY AND PHYSICAL (STROKE CARE PATH) REASON FOR STROKE EVALUATION: Aphasia and Right Sided Weakness REASON FOR NEUROLOGICAL ICU ADMISSION: Acute ischemic stroke Stroke Mechanism: METRICS: Initial NIHSS Score: 7 [place] Coma Scale Totals (Calculated): 15 Date Patient Last Known Well: 04/30/25 Time Patient Last Known Well: 1899 Date of Patient Arrival at THIS Facility: 05/01/25 Time of Patient Arrival at THIS Facility: 1338 Pre-admission: Was patient on antithrombotic agent prior to admission: No Premorbid Modified Pike Score: 1=1 - No significant disability despite symptoms - able to carry out all usual duties and activities Baseline Functional Status (i.e. ADL's, Ambulatory Status, Cognitive Issues): walks with walker/cane, requires some help due to fatigue mostly independent Subjective HPI: 54 yo male with pmh GBM(left temporal lobe) s/p gross total resection(03/19/2023 and 05/27/2024 and chemotherapy), thrombocytopenia, seizures(vimpat), and anxiety who presents for right sided weakness and aphasia. INIHSS reported to be 9. CTH with NAP. CAT h/n with L M1 occlusion. LKW 1900 on 04/30. He is outside the window for TNK. He is autolaunched to [facility] for emergent EVT. He will be admitted to the NSICU post procedurally for close neurological monitoring and further management. The following problems are present on admission at this time: Cancer, GBM Coagulopathy Weight loss Malignant solid tumor Neurologic disorder Obesity Continue current outpatient treatment plan and current medications for these conditions, except where otherwise noted. PAST MEDICAL HISTORY Diagnosis Date At risk for seizures 03/19/2023 due to left temporal glioblastoma GBM (glioblastoma multiforme) (HCC) 03/19/2023 WHO Grade 4 GBM; IDH1 R132H negative (wildtype); ATRX retained (wildtype); BRAF V600E negative (wildtype); p53 strong up to 40%; Ki67 up to 25%, MGMT unmethylated PAST SURGICAL HISTORY Procedure Laterality Date APPENDECTOMY 1976 removed as part of internal bleeding due to trauma COLONOSCOPY FLX DX W/COLLJ SPEC WHEN PFRMD Colonoscopy ESOPHAGOGASTRODUODENOSCOPY TRANSORAL DIAGNOSTIC EGD EXCIS SUPRATENT BRAIN TUMOR 03/19/2023 Left-sided craniotomy for temporal mass resection by Dr. Evans; path = GBM ORTHOPEDICS SURGERY HX 1996 knee surgery SHX CRANIOTOMY Left 03/19/2023 FAMILY HISTORY Problem Relation Age of Onset Diabetes Father Coronary Artery Disease Father Stroke Father Breast Cancer Mother None Sister Anesthesia Problems No Family History SOCIAL HISTORY[1] MEDICATIONS Prior to Admission Prescriptions Prior to Admission[2] ALLERGIES No Known Allergies COMPLETE REVIEW OF SYSTEMS Unable to complete given aphasia Objective BP 153/91 Pulse (!) 46 Temp 36.4 ?C (97.5 ?F) Resp 16 Ht 177.8 cm (5' 10) Wt 96.2 kg (212 lb) BMI 30.42 kg/m? PHYSICAL EXAM: Alert nods appropriately to questions also answers appropriately if given options, PERRL, EOMI, VFF, right facial droop, expressive aphasia, follows commands, RU/LE 4/5 drift, DOC/LE 5/5 sustains AG GCS: Eyes: 4. Spontaneous Verbal: 4: Confused Motor: 6: Obeys Motor commands Total: 14 CV: reggie in the 40's Pulm: CTA unlabored on RA GI/: soft +BS Skin/Extremities: Edema- No Peripheral pulses- Present all extremities Wounds/Drsgs- No Breakdown- No iNIHSS LOC: 0 - alert and responsive 0 LOC Questions: 1 - one correct 1 LOC Commands: 0 - both correct 0 Best Gaze: 0 - normal gaze 0 Visual Land: 0 - no visual loss 0 Facial Palsy: 2 - partial paralysis 2 Motor Left Arm: 0 - no drift 0 Motor Right Arm: 1 - drift but does not hit bed 1 Motor Left Le - no drift 0 Motor Right Le - drift but does not hit bed 1 Limb Ataxia: 0 - no ataxia (or aphasic, hemiplegic) 0 Sensory: 1 - mild to moderate unilateral loss but patient aware of touch (or aphasic, confused) 1 Best Language: 1 - mild-mod aphasia (comprehensible) 1 Dysarthria: 0 - normal 0 Extinction and Inattention: 0 - normal, none detected (or visual loss alone) 0 Initial NIHSS Score: 7 (05/01/25 1356 : Karla Huitron, BUDDY.MANUFACTURING ENGINEERING MANAGER) 7 STROKE CARE AND PREVENTION CHECKLIST Is the patient on VTE prophylaxis: Pharmacological prophylaxis, Mechanical prophylaxis Pharmacological intervention type: Lovenox Mechanical intervention type: Intermittent compression stocking(s) GLYCEMIC Control Medications: Not Diabetic Stroke BP Goals: SBP 130-160 Stroke BP Control: BP well controlled Stroke IVF/Nutrition: IVF TEMPERATURE Control: Normothermic Does the patient need THERAPY: Yes Therapy Service Involvement: PT, OT, ST DATA: Diagnostic tests reviewed for today's visit: Most recent labs and imaging results. Lines, Drains, and Airways Airway Duration Airway Endotracheal Tube 05/01/25 1413 <1 day PERSONAL INVOLVEMENT IN CARE: Reviewing initiation, responses and adjustments to therapies, coordination of care, and updating family with Staff Physician, Dr. Rice. Assessment AND Plan 54 yo male with pmh GBM(left temporal lobe) s/p gross total resection(03/19/2023 and 05/27/2024 and chemotherapy), thrombocytopenia, seizures(vimpat), and anxiety who presents for right sided weakness and aphasia. iNSS 9 CT - NAP CTA h/n - L M1 occlusion Outside the window for TNK EVT with Dr. Fan Neurology Aphasia due to acute cerebrovascular accident (CVA) (HCC)- (present on admission) ST Hemiparesis of right dominant side (HCC)- (present on admission) PT/OT Acute ischemic left MCA stroke (HCC)- (present on admission) P/w right sided weakness and aphasia iNIHSS 9 CTH - NAP CTA h/n - L M1 occlusion Outside window for TNK Emergent thrombectomy Plan Stroke neurology c/s NIL c/s Neuro checks per protocol SBP goal pending tici score Hold AP at this time given thrombocytopenia Lipitor 40mg daily Lipid panel, hgb a1c MRI brain when able TTE Telemetry monitoring Diet once he passes swallow eval Daily labs with PRN electrolyte replacements PT/OT/ST DVT ppx: SCDs, hold chemo ppx given thrombocytopenia Stroke education Cardiovascular Sinus bradycardia- (present on admission) Asymptomatic Monitor on tele Hematology Thrombocytopenia- (present on admission) 1 pack platelets prior to NIL Monitor and transfuse if indicated Oncology GBM (glioblastoma multiforme) (HCC)- (present on admission) Continue home steroids Will be unable to get chemo therapy while in the hospital Other At risk for seizures- (present on admission) Reggie on admission will switch home vimpat to keppra 1g BID Seizure precautions Obesity, Class I, BMI 30-34.9- (present on admission) Life style modification Exogenous Class 1 Obesity Medication and Non-Pharmacologic VTE Prophylaxis/Anticoagulants VTE Prophylaxis: Contraindicated bleeding risk This patient has a high probability of sudden, clinically significant deterioration, which requires the highest level of provider preparedness to intervene urgently. I managed/supervised life or organ supporting interventions that required frequent provider assessment. I devoted my full attention to the direct care of this patient for the amount of time indicated below. Time I spent with family or surrogate(s) is included only if the patient was incapable of providing the necessary information or participating in medical decision making. Time devoted to teaching and to any procedures I billed separately is not included. Critical Care Documentation: The patient has the following organ/system impairment(s): Complex life-threatening medical problem(s), Respiratory failure (Acute and/or Chronic), acute neurologic event and/or Severe electrolyte imbalance. Part of my note may have been copied from previous documentation. It has been reviewed and is accurate. Critical care time spent with patient: 48 mins SIGNATURE: Karla Huitron APRN.CNP PATIENT NAME: Angel Keating DATE: May 01, 2025 TIME: 2:54 PM Pager [phone] [1] Social History Tobacco Use Smoking status: Former Current packs/day: 1.00 Average packs/day: 1 pack/day for 4.0 years (4.0 ttl pk-yrs) Types: Cigarettes, Cigars Smokeless tobacco: Never Vaping Use Vaping status: Never Used Substance Use Topics Alcohol use: Not Currently Comment: three beers a month - per pt [id number] Drug use: Never [2] modafinil (PROVIGIL) 100 mg tablet, Take 1 tablet in the morning. If needed take another tablet at 2 pm, Disp: 60 tablet, Rfl: 2 dexAMETHasone (DECADRON) 2 mg tablet, decrease to 10 mg daily starting on 04/06, Disp: 50 tablet, Rfl: 2 Miscellaneous Medical Supply kit, Outpatient physical therapy, Disp: 1 kit, Rfl: 11 atovaquone (MEPRON) 750 mg/5 mL oral liquid, Take 10 mL by mouth daily with breakfast., Disp: 300 mL, Rfl: 1 dexAMETHasone (DECADRON) 6 mg tablet, Take 1 tablet by mouth two times a day with meals., Disp: 60 tablet, Rfl: 1 lacosamide (VIMPAT) 150 mg tab, Take 1 tablet by mouth two times a day for 180 days., Disp: 180 tablet, Rfl: 1 valACYclovir (VALTREX) 500 mg tablet, Take 1 tablet by mouth once daily., Disp: 30 tablet, Rfl: 2 traZODone (DESYREL) 50 mg tablet, TAKE 1 TABLET BY MOUTH EVERYDAY AT BEDTIME (Patient taking differently: TAKE 1 TABLET BY MOUTH EVERYDAY AT BEDTIME), Disp: 30 tablet, Rfl: [address] (PROTONIX) 40 mg tablet, Take 1 tablet by mouth once daily., Disp: 30 tablet, Rfl: 2 ondansetron (ZOFRAN) 8 mg tablet, Take one tablet by mouth on an empty stomach in the evening one hour prior to chemo. Then take one tablet 24 hours after chemo. May repeat dose every 8-12 hours if needed to prevent nausea, Disp: 30 tablet, Rfl: 2 midazolam (NAYZILAM) 5 mg/spray (0.1 mL) nasal spray, Use 1 [place] in the nose as needed for up to 10 days. May repeat dose in alternate nostril after 10 minutes based on response and tolerability., Disp: 4 Each, Rfl: 2 acetaminophen (TYLENOL) 325 mg tablet, 2 tablets by ORAL/FEEDING TUBE route every 4 hours as needed for pain., Disp: , Rfl: HISTORY PHYSICAL Observed: 05/01/2025 2:54 PM Status: COMPLETED Source: [facility] HNO ID: [id number] Author: ALLIE RIEC MD Service: Neurology ICU Author Type: Physician Type: H&P Filed: 05/01/2025 16:25 Note Text: 54 yo male with pmh GBM(left temporal lobe) s/p gross total resection(03/19/2023 and 05/27/2024 and chemotherapy), thrombocytopenia, seizures(vimpat), and anxiety who presents for right sided weakness and aphasia. INIHSS reported to be 9. CTH with NAP. CAT h/n with L M1 occlusion. LKW 1900 on 04/30. He is outside the window for TNK. He is autolaunched to [facility] for emergent EVT. He will be admitted to the NSICU post procedurally for close neurological monitoring and further management. NIHSS: 1(a). Mental Status - LOC 0 = Alert and Attentive 1(b). LOC Questions 1 = Correct age OR month 1(c). LOC-Commands 0 = Both 2. Gaze 1 = Partial gaze, not forced or total 3. Visual Land 0 = Full 4. Facial Weakness 2 = Complete, lower 5(a). Left Arm 0 = No drift 5(b). Right Arm 1 = Drift, but does not hit bed 6(a). Left Leg 0 = No drift 6(b). Right Leg 2 = Some antigravity but hits bed 7. Ataxia 0 = Absent 8. Sensory 0 = Normal 9. Aphasia 1 = Mild to Moderate 10. Dysarthria 2 = Severe 11. Neglect 0 = None NIHSS Total (0-42): 10 The following problems are present on admission at this time: Cancer, Solid tumor without metastasis, malignancy Brain Coagulopathy Weight loss Cerebrovascular disease Malignant solid tumor Neurologic disorder Obesity Paralysis Continue current outpatient treatment plan and current medications for these conditions, except where otherwise noted. Neurological Monitoring: Close neurological observation for changes in status. Monitor for cerebral edema and mass effect. Normo natremia Platelet Management: Maintain platelet count above 50- 75,000/?L. Hold antiplatelet agents and VTE chemoprophylaxis until platelet count is adequate. Edema Control: Administer steroids for cerebral edema associated with primary glioblastoma (GBM). Post-Intervention Care: TICI 0 post-procedure. Maintain systolic blood pressure <180 mmHg. Consider permissive hypertension strategy. VTE Prophylaxis: Use sequential compression devices (SCDs). LMWH once platelet above 75K Seizure Management: History of seizures; switch from Vimpat (lacosamide) to Keppra (levetiracetam ICU Checklist Last Documented/Reviewed time: 05/01/2025 4:24 PM ICU Consent Complete?: No ICU Code Status History assess/Full code by default: No, active code status present A= Assess, Prevent, Manage Pain Pain adequately controlled?: Yes C= Choice of Sedation and Analgesia RASS at Goal?: Yes B= Both Spontaneous Awakening and Breathing Trials Ventilator: None D= Delirium: Assess, Prevent and Manage ICU Delirium Status: CAM Negative - no action required Sleep adequate?: Yes Restraint Status: None E= Early Mobility/Excercise ICU Mobility: ICU Mobility Goal: Head of bed 60 degrees, PT/OT consult ordered, Sit at edge of bed, Move to chair F= Family Engagement and Empowerment ICU plan of care visit at bedside in last 24 hours: Yes, Provider, RN, Patient/ designee ICU Disposition: ICU Disposition-POC Detail: To be determined Prevention: Line Status: None Mcdowell Status: None Pressure Injury Status: None GI/Stress Ulcer Prophylaxis: PPI Nutrition is at Goal: No, nutrition consult indicated VTE Prophylaxis: Chemoprophylaxis: No chemoprophylaxis No Chemoprophylaxis Reason: Thrombocytopenia Present on Admission: GBM (glioblastoma multiforme) (HCC) Thrombocytopenia Acute ischemic left MCA stroke (HCC) Hemiparesis of right dominant side (HCC) Aphasia due to acute cerebrovascular accident (CVA) (HCC) At risk for seizures Sinus bradycardia Obesity, Class I, BMI 30-34.9 Metabolic acidosis Hemiparesis due to acute cerebrovascular disease (HCC) Cerebral edema (HCC) History of seizure STAFF COORDINATION OF CRITICAL CARE This patient has a high probability of sudden, clinically significant deterioration, which requires the highest level of physician preparedness to intervene urgently. I managed/supervized life or organ supporting interventions that required frequent physician assessment. I devoted my full attention to the direct care of this patient for the amount of time indicated below. Time I spent with family or surrogate(s) is included only if the patient was incapable of providing the necessary information or participating in medical decision making. Time devoted to teaching or to any procedures I billed separately is not included. Allie Rice MD STAFF SALES DR[employer] [facility] DATE : May 01, 2025 ANES PROCEDURE NOTE Observed: 05/01/2025 2:28 PM Status: COMPLETED Source: [facility] HNO ID: [id number] Author: LEVAR HEADLEY APRN.CRNA Service: Anesthesiology Author Type: Nurse Supervisor In Charge Type: Anesthesia Procedure Notes Filed: 05/01/2025 14:28 Note Text: ANESTHESIOLOGY PROCEDURE NOTE Airway General Information Procedure Start Time/Medication Administration: 05/01/2025 2:13 PM Procedure End Time: 05/01/2025 2:13 PM Patient location during procedure: OR Patient identity confirmed: arm band Staffing CASE FITTER: Levar Headley APRN.CASE FITTER Performed by: ALONSO Indications and Patient Condition Indications for airway management: anesthesia Preoxygenated: yes anesthesia circuit Patient position: sniffing Method: modified rapid sequence Final Airway Details Final airway type: endotracheal airwayFinal Endotracheal Airway: ETT Cuffed: yes Successful intubation technique: video laryngoscopy Devices used: Reyna Endotracheal tube insertion site: oral Blade: Bibiana Blade size: #3 ETT size (mm): 7.5 Measured from: lips Measurement (cm): 22 Placement verified by: capnometry Cormack-Lehane Classification: grade I - full view of glottis Number of attempts at approach: 1 SIGNATURE: Levar Headley APRN.CASE FITTER PATIENT NAME: Angel Keating DATE: May 01, 2025 TIME: 2:28 PM CSN: [id number] PROGRESS Observed: 05/01/2025 1:21 PM Status: COMPLETED Source: [facility] HNO ID: [id number] Author: JONNY FAN MD Service: Neuroendovascular Intervention Author Type: Physician Type: Progress Notes Filed: 05/01/2025 14:05 Note Text: Update: Spoke to the mother in regard to the patient and left MCA stroke. I did speak with vascular neurology at both [facility] and [facility] and we are in agreement to proceed with mechanical thrombectomy of the left MCA M1 segment. I did explain that the patient does have a low platelet count however, it is reasonable to administer one unit of platelets and proceed emergently with mechanical thrombectomy. The patient's mother is in agreement with the plan. Update: Upon arrival to NSICU the patient had an NIHSS score between 6-10. After discussion with NSICU and vascular neurology the decision was made to proceed with mechanical thrombectomy of the left MCA. Jonny Fan MD. Neuro Interventional Surgery May 01, 2025 ANES PRE-OP Observed: 05/01/2025 12:45 PM Status: COMPLETED Source: [facility] HNO ID: [id number] Author: HOMER LUCERO MD Service: Anesthesiology Author Type: Anesthesiologist Type: Anesthesia Preprocedure Evaluation Filed: 05/01/2025 14:33 Note Text: ANESTHESIOLOGY DAY OF SURGERY NOTE : 1970 Procedure Information Date/Time: 05/01/25 1320 Procedure: PERC ARTERIAL TRANSLUMINAL MECHANICAL THROMBECTOMY AND/OR INFUSION FOR THROMBOLYSIS, INTRACRANIAL, ANY METHOD INCL DIAG ANGIOGRAPHY, FLOURO GUIDANCE,CATH PLACEMENT/ INTRAPROC PHARM THROMBOLYTIC INJ Location: [facility] / [facility] [place] Surgeons: Jonny Fan MD Estimated body mass index is 29.51 kg/m? as calculated from the following: Height as of 03/24/25: 177.8 cm (5' 10). Weight as of 04/20/25: 93.3 kg (205 lb 11 oz). Most recent hematocrit and potassium results: Hematocrit 37.2 04/27/2025 Potassium 4.0 04/25/2025 Relevant Problems ANESTHESIA (+) PONV (postoperative nausea and vomiting) #acute stroke presenting emergently to [facility] #GBM on multiple antiseizure meds AND recent steroid taper I - PHYSICAL EVALUATION AIRWAY Patient intubated: No. Tracheostomy tube not present Mallampati: III. TM distance: >3 FB. Neck ROM: full ROM without neurological symptoms. Mouth opening: >3 FB. Short neck: no. Thick neck: no Turner present: yes DENTAL Dental findings: teeth intact. II - ANESTHESIA PLAN ASA Score: 5; emergent. Anesthetic Plan: general Airway type: ETT NPO Status: adequate Monitoring Plan Monitoring plan: standard ASA. Post Procedure Analgesic Plan Postoperative analgesic plan: multimodal analgesia, remain intubated, go to ICU and per surgical service. Informed Consent Anesthetic risks, benefits, alternatives, personnel and consent discussed: yes. Patient / Responsible Alliance Party agrees to proceed: yes Patient / Surrogate agrees to blood products: Yes Potential Anesthesia issues that may suggest increased risk of complications or contraindication to planned procedure: surgical field avoidance and potential difficult intubation. field avoidance. The anesthetic will be complicated due to field avoidance because the surgical procedure will be around the airway (head, neck, or shoulder girdle). There will be no direct access to the patient's airway therefore increasing the technical difficulty. No vitals data found for the desired time range. No current facility-administered medications on file as of . Outpatient Medications as of Medication Sig modafinil (PROVIGIL) 100 mg tablet Take 1 tablet in the morning. If needed take another tablet at 2 pm dexAMETHasone (DECADRON) 2 mg tablet decrease to 10 mg daily starting on 04/06 [employer] kit Outpatient physical therapy atovaquone (MEPRON) 750 mg/5 mL oral liquid Take 10 mL by mouth daily with breakfast. dexAMETHasone (DECADRON) 6 mg tablet Take 1 tablet by mouth two times a day with meals. lacosamide (VIMPAT) 150 mg tab Take 1 tablet by mouth two times a day for 180 days. valACYclovir (VALTREX) 500 mg tablet Take 1 tablet by mouth once daily. traZODone (DESYREL) 50 mg tablet TAKE 1 TABLET BY MOUTH EVERYDAY AT BEDTIME (Patient taking differently: TAKE 1 TABLET BY MOUTH EVERYDAY AT BEDTIME) pantoprazole DR (PROTONIX) 40 mg tablet Take 1 tablet by mouth once daily. ondansetron (ZOFRAN) 8 mg tablet Take one tablet by mouth on an empty stomach in the evening one hour prior to chemo. Then take one tablet 24 hours after chemo. May repeat dose every 8-12 hours if needed to prevent nausea midazolam (NAYZILAM) 5 mg/spray (0.1 mL) nasal spray Use 1 [place] in the nose as needed for up to 10 days. May repeat dose in alternate nostril after 10 minutes based on response and tolerability. acetaminophen (TYLENOL) 325 mg tablet 2 tablets by ORAL/FEEDING TUBE route every 4 hours as needed for pain. I have interviewed and examined the patient. I have reviewed the medical record and/or the pre-anesthesia evaluation, pertinent labs, and test results. This contains updated information obtained within 48 hours of Surgery/Procedure. SIGNATURE: Homer Lucero MD PATIENT NAME: Angel Keating DATE: May 01, 2025 TIME: 1:23 PM CSN: [id number] PROGRESS Observed: 05/01/2025 12:36 PM Status: COMPLETED Source: [facility] HNO ID: [id number] Author: LOTUS HOLLIDAY MD, PhD Service: ? Author Type: Physician Type: Progress Notes Filed: 05/01/2025 12:55 Note Text: Acute Stroke Telephone Consultation Angel Keating [id number] 1970 Site: [facility] ED Provider requesting Consultation: ED physician LKW: 04/30/25 at 19:00 Chief Complaint: New expressive aphasia HPI: 54 M with left temporal GBM. More confused over the past couple of days. 04/30, new right sided facial droop as well as worse expressive aphasia. Known RUE and RLE weakness. NIHSS > 9 Assessed by [facility]uro with no acute intervention Platelets 36. Hgb 11.8 157/92 mmHg Patient on room air Lives at home by himself. Mom helps a little bit, mRS 1. On LCS for seizures Just resumed Decadron Current anticoagulation: None Mother's phone Donna Keating: [phone] Imaging: CT head: Nothing acute, no nick hypodensity and no bleed per report. CTA head and neck: Imaging not available. Per local physician's report, distal Left M1 occlusion Summary: Diagnosis: Left M1 occlusion stroke IV thrombolysis recommended: No If no: outside the window, plts 36 Candidate for Endovascular Therapy: Yes Recommendation: [facility] to [facility] for consideration of emergent endovascular intervention. Lotus Holliday MD, PhD 05/01/25 12:36 PM CNPN Observed: 05/01/2025 12:00 AM Status: COMPLETED Source: [facility] Telephone (NSCAMN) ANGEL KEATING ([id number]) 1970 M [facility] Date Time Provider Department 05/01/25 PATRICIA ENRIQUEZ [facility] During your visit today, we recorded the following information about you: Patricia Enriquez MD 05/03/2025 6:48 PM Addendum I noted, that the patient was admitted over the weekend yesterday April 30, to [facility], [facility] because of changes in neurological status. Looking at the records, the patient was seen at [facility], and a stroke activation was initiated, in view, of the possibility of a stroke, and based, on the records, it is reported that the patient Was found to have, left M1 occlusion. there was an attempt, for thrombectomy, however reportedly this was unsuccessful. The current patient's NIH stroke scale, and 7. with highlighted deficits including 1 for LOC, 2 for facial weakness, 1 for right arm weakness, 1 for right leg weakness, 1 for sensory changes, 1 for aphasia. From my perspective, the above deficits, are similar to deficits, that when I saw him, at his last visit with me in my brain tumor clinic. It seems, that the diagnosis of the stroke, is based on the finding of left M1 occlusion, and clinical presentation, but the patient has not had an MRI of the brain, at least no one that I can see in the system. Reportedly also the patient had platelet transfusions, with the platelets rising to 65K from today, at 4:30 PM. I spoke with the patient's mother, Mrs. Keating, and she tells me what she understands, that the patient had a stroke, but that the patient is doing so well, that she was told that they may discharge him to home tomorrow May 02. Furthermore she says, that her daughter asked the patient whether he wants to continue on treatments and he categorically told the family that he wants to continue treatments. I told, patient's mother, that we will see him next week, at his follow-up appointment, and then I will define, further management depending on his overall status. Furthermore, I am happy to discuss further, with the inpatient team over at [facility]. Patricia Enriquez MD ADDENDUM 05/02/2025: I received a call from neuro program management specialist Dr. Rice. He confirmed that the patient had a CVA involving subcortical structures, and receiving Neuro ICU care. For now form my perspective, I recommend to continue with current care. We will re-evaluate patient in the future and define if further GBM treatments are appropriate in the context that the patient has voiced wishing to continue active treatment for his GBM. I appreciated the care to our patient provided by Dr Rice and other services at [facility]. Dr. Rice is aware that I will be away on vacation for the next week, but that if he can connect with me at any time, but if there is an urgent issues to address, he can call Dr. Barba at [facility], my colleague medical neuro-oncologist covering for me. Patricia Enriquez MD Allergies As of Date: 05/01/2025 (No Known Allergies) Date Reviewed: 05/01/2025 Reviewed by: Karla Huitron APRN.MANUFACTURING ENGINEERING MANAGER - Fully Assessed Prescriptions as of 05/03/2025 - modafinil (PROVIGIL) 100 mg tablet Take 1 tablet in the morning. If needed take another tablet at 2 pm - dexAMETHasone (DECADRON) 2 mg tablet decrease to 10 mg daily starting on 04/06 - [employer] kit Outpatient physical therapy - atovaquone (MEPRON) 750 mg/5 mL oral liquid Take 10 mL by mouth daily with breakfast. - dexAMETHasone (DECADRON) 6 mg tablet Take 1 tablet by mouth two times a day with meals. - lacosamide (VIMPAT) 150 mg tab Take 1 tablet by mouth two times a day for 180 days. - valACYclovir (VALTREX) 500 mg tablet Take 1 tablet by mouth once daily. - acetaminophen (TYLENOL) 325 mg tablet 2 tablets by ORAL/FEEDING TUBE route every 4 hours as needed for pain. Facility-Administered Medications as of 05/03/2025 - potassium chloride 20-40 mEq oral powder (KLOR-CON) (Oct) - potassium chloride iv piggyback 20 mEq/100 mL (Oct) - sodium phosphate 30 mmol in D5W 250 mL (Oct) - sodium phosphate 45 mmol in D5W 250 mL (Oct) - magnesium sulfate iv piggyback in sterile water 2 g 50 mL (Oct) - calcium gluconate iv piggyback 2 g in NaCl (iso-osmotic) 100 mL (Oct) - atovaquone 1,500 mg oral liquid (MEPRON) (Oct) - valACYclovir 500 mg tab(s) (VALTREX) (Oct) - dextrose 15 gram/32 mL 15 g (TRUEPLUS) (Oct) - glucagon 1 mg injection (Oct) - dextrose 10% iv bolus (Oct) - insulin regular human injection (short acting) (Oct) - aspirin 81 mg chewable tab(s) (Oct) - enoxaparin 40 mg injection (LOVENOX) (Oct) - senna-docusate 8.6-50 mg 1 tablet (SENNA-S) (Oct) - bisacodyl 10 mg suppository (DULCOLAX) (Oct) - ondansetron (PF) 4 mg injection (ZOFRAN) (Oct) - NaCl 0.9% iv flush bag (Oct) - NaCl 0.9% iv infusion (Oct) - hydrALAZINE 5-10 mg injection (APRESOLINE) (Oct) - acetaminophen 650 mg tab(s) (TYLENOL) (Oct) - acetaminophen 650 mg CUP (TYLENOL) (Oct) - acetaminophen 650 mg suppository (TYLENOL) (Oct) - atorvastatin 40 mg tab(s) (LIPITOR) (Oct) - sodium chloride 0.9 % (flush) 2-10 mL (BD POSIFLUSH) (Oct) - levETIRAcetam 1,000 mg tab(s) (KEPPRA) (Oct) - dexAMETHasone 10 mg tab(s) (DECADRON) (Oct) Problem List As Of Date 05/01/2025 Noted Resolved Chest pain [R07.9] 04/25/2010 05/26/2024 Brain mass [G93.89] 03/17/2023 11/17/2023 Obesity, Class I, BMI 30-34.9 [E66.811] 03/17/2023 Brain compression (HCC) [G93.5] 03/20/2023 S/P brain surgery [Z98.890] 03/20/2023 11/17/2023 At risk for seizures [Z91.89] 03/20/2023 Cerebral edema (HCC) [G93.6] 03/20/2023 GBM (glioblastoma multiforme) (HCC) [C71.9] 04/07/2023 Syncope, unspecified syncope type [R55] 11/01/2023 11/03/2023 Examination of participant in clinical trial [Z*11/05/2023 11/17/2023 Forehead pain [R51.9] 11/05/2023 PONV (postoperative nausea and vomiting) [R11.2*05/26/2024 Acute post-operative pain [G89.18] 05/29/2024 Thrombocytopenia [D69.6] 10/13/2024 Vasogenic edema (HCC) [G93.6] 03/24/2025 Malnutrition of mild degree (HCC) [E44.1] 03/24/2025 Glioblastoma (HCC) [C71.9] 03/28/2025 Acute ischemic left MCA stroke (HCC) [I63.512] 05/01/2025 Hemiparesis of right dominant side (HCC) [G81.9*05/01/2025 Aphasia due to acute cerebrovascular accident (*05/01/2025 Sinus bradycardia [R00.1] 05/01/2025 Metabolic acidosis [E87.20] 05/01/2025 Hemiparesis due to acute cerebrovascular diseas*05/01/2025 Dysarthria due to acute stroke (HCC) [I63.9, R4*05/01/2025 History of seizure [Z87.898] 05/01/2025 Arterial ischemic stroke, MCA (middle cerebral *05/01/2025 Encounter Status:Closed by PATRICIA ENRIQUEZ on 05/01/25 CNCRITCR Observed: 05/01/2025 12:00 AM Status: COMPLETED Source: [facility] Critical Care Transport (CCT ) ANGEL KEATING ([id number]) 1970 M [facility] Date Time Provider Department 05/01/25 WAN ROMAN CCT During your visit today, we recorded the following information about you: Wan Roman APRN.[facility] 05/02/2025 10:26 AM Addendum Critical Care Transport Note Patient Name: Angel Keating Service Date: 05/01/2025 Referring Physician: Sagrario Accepting Physician: Aleks Referring Facility: [facility] Accepting Facility: [facility] SUBJECTIVE/CHIEF COMPLAINT: Weakness REASON FOR TRANSPORT: Need for interventional neuroradiology not available at sending History of Present Illness: The following history is what was known to CCT team at time of given care and summarized through: patient interview and referring nursing report Angel Keating is a 54 year old male with a past medical history significant for 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 He presented to [facility] on 05/01/25 for evaluation of right sided weakness and worsening aphasia. Last Known Well was 1900 the previous evening, 04/30. On arrival to the ED, his NIH score was initially 9, and then 11 on repeat exam. CTA showed left M1 occlusion. As he is outside the thrombolytic window, transfer was requested for potential neurointervention. At this time, the physician managing the patient requested transfer to [facility] for tertiary and/or quaternary services unavailable at the referring facility. Patient condition at time of exam was: Acutely ill and critically ill. Due to the unique circumstances of the patient, it was determined that this was the closest, most appropriate facility by referring physician. The physician managing the patient requested the [facility] Critical Care Transport Team transport and treat the patient for the purpose of tertiary care, evaluation, and management of his acute neurologic condition(s). Air medical transport was requested to reduce the [id number] time, 12 minutes by air vs. approximately 50 minutes by ground, with the potential for increased ground transport time secondary to: distance between facilities and the patient's condition requiring an emergent procedure or evaluation not available at the referring facility ROS: Could not obtain due to patient's mental status/critical illness PAST MEDICAL HISTORY: As above in HPI PAST SURGICAL HISTORY: Glioblastoma Resection ALLERGIES: NKDA Reported SOCIAL HISTORY: Unable to ascertain at time of transfer FAMILY HISTORY: Unable to ascertain at time of transfer HOME MEDICATIONS: Modafinil Dexamethasone Mepron Vimpat Protonix Valtrex Medications Administered by Referring Facility: None OBJECTIVE: Recent Labs, Diagnostics AND Procedure Reports reviewed as available. Referring Facility Labs CBC: WBC 5.6k, Hgb 11.8, Hct 34, Plt 36K POC Glucose 131 Remainder of labs in process at time of transfer Diagnostics AND Procedure Reports ECG: Not available for review at time of transfer, SB on monitor, rates in high 30s, low 40s CXR: Not available for review CT Scan: CT Brain without hemorrhage, CTA with L M1 occlusion Invasive Lines/Devices/Tubes Placed by Referring Facility: Pre-existing right chest port PHYSICAL EXAM: Upon CCT Arrival at Referring Facility Vital Signs: HR 46bpm, BP 157/101mmHg, RR 16, SpO2 99% Oxygen/Ventilator Settings: RA General appearance: alert, pleasant, mild distress. HEENT: normocephalic, EOMI, PERRL. Mucous membranes moist, right lower facial droop Respiratory: clear to auscultation bilaterally, no respiratory distress, no wheezing. Cardiovascular: regular rate and rhythm, bradycardic. Gastrointestinal: soft, nontender, nondistended. Genitourinary: Deferred Musculoskeletal: No obvious deformity Skin: warm and dry Neurologic: GCS 15, alert and participatory NIHSS: 1a) LOC: 0- alert and responsive. 1b) LOC questions (age/month): 1- one correct. 1c) LOC commands (close eyes/medical device): 0- both correct. 2) Best gaze: 0- normal gaze. 3) Visual land:0- no visual loss. 4) Facial palsy: 2- partial paralysis. 5a) Motor left arm: 0- no drift. 5b) Motor right arm: 1- drift but does not hit bed. 6a) Motor left le- no drift. 6b) Motor right le- some antigravity effort, but cannot sustain. 7) Limb ataxia: 0- no ataxia (or aphasic, hemiplegic). 8) Sensory: 0- normal. 9) Best language: 1- mild-mod aphasia (comprehensible). 10) Dysarthria (read word list): 2- severe, unintelligible or mute. 11) Extinction/neglect (sensory/visual): 0- normal, none detected (or visual loss alone). Total: 9 CRITICAL CARE COURSE Upon bedside arrival at referring facility the patient was assessed and detailed physical exam performed. Initial exam findings as described above. The patient was placed on the transport monitor and all transport equipment transitioned in standard fashion. The patient was transferred to the transport cot and transported to the Aircraft and loaded hot without incident. The patient was medically managed, monitored, and reassessed during transport. Medications Managed AND Administered by CCT: None Procedures Performed by CCT: Peripheral IV Attempted ASSESSMENT/PLAN: Angel Keating is a 54 year old male that presented with stoke-like symptoms and was found to have an acute left AK occlusion. #Acute Ischemic Left MCA Stroke Acute Left M1 occlusion on CTA with known history of left frontal GBM and seizures controlled with vimpat. Outside thrombolytic window, transfer for thrombectomy eval. Glucose 131 - Goal SBP <180 while awaiting intervention, maintaining on own - Additional IV access attempted but unsuccessful - Close neurologic monitoring, maintaining own airway - HOB flat in setting of occlusive stroke - Expedite transfer to [facility] - DNR CCA DNI - Expressed by patient, mother to bring paperwork #Thrombocytopenia In setting of malignancy and chemotherapy - Monitor for bleeding, value passed to receiving The transport was completed without significant incident or change in the patient's status. The patient was transported to the [facility] by [employer]otor (Helicopter) for tertiary and/or quaternary evaluation and management of his Emergent and Critical neurologic condition(s). Upon arrival to the receiving facility, a [id number] report was given to bedside nursing staff in CVICU. Patient care was transferred. The patient condition was Critical at the time of transfer. Vital Signs at time care transferred to the receiving facility unit: HR 42bpm, Rhythm SB, BP 176/118 mmHg, RR 19, SpO2 98% on RA SPECIAL EQUIPMENT: None MODE OF TRANSPORT: [employer]otor (Helicopter) CRITICAL CARE TIME: I personally performed 31 minutes of critical care time exclusive of separately billable procedures, ambulance charges and treating other patients. This was necessary to treat or prevent further deterioration of the following condition(s): Acute stroke and PATENT PARALEGAL impairment which the patient had and/or had a high probability of suddenly developing. SIGNATURE: Wan Roman APRN.CNP Acute Care Nurse Practitioner [facility] Critical Care Transport Team Allergies As of Date: 05/01/2025 (No Known Allergies) Date Reviewed: 05/01/2025 Reviewed by: Karla Huitron APRN.CNP - Fully Assessed Reason for Visit: Critical Care Transport [1718] Prescriptions as of 05/02/2025 - modafinil (PROVIGIL) 100 mg tablet Take 1 tablet in the morning. If needed take another tablet at 2 pm - dexAMETHasone (DECADRON) 2 mg tablet decrease to 10 mg daily starting on 04/06 - [employer] kit Outpatient physical therapy - atovaquone (MEPRON) 750 mg/5 mL oral liquid Take 10 mL by mouth daily with breakfast. - dexAMETHasone (DECADRON) 6 mg tablet Take 1 tablet by mouth two times a day with meals. - lacosamide (VIMPAT) 150 mg tab Take 1 tablet by mouth two times a day for 180 days. - valACYclovir (VALTREX) 500 mg tablet Take 1 tablet by mouth once daily. - traZODone (DESYREL) 50 mg tablet TAKE 1 TABLET BY MOUTH EVERYDAY AT BEDTIME - pantoprazole DR (PROTONIX) 40 mg tablet Take 1 tablet by mouth once daily. - ondansetron (ZOFRAN) 8 mg tablet Take one tablet by mouth on an empty stomach in the evening one hour prior to chemo. Then take one tablet 24 hours after chemo. May repeat dose every 8-12 hours if needed to prevent nausea - midazolam (NAYZILAM) 5 mg/spray (0.1 mL) nasal spray Use 1 [place] in the nose as needed for up to 10 days. May repeat dose in alternate nostril after 10 minutes based on response and tolerability. - acetaminophen (TYLENOL) 325 mg tablet 2 tablets by ORAL/FEEDING TUBE route every 4 hours as needed for pain. Facility-Administered Medications as of 05/02/2025 - potassium chloride 20-40 mEq oral powder (KLOR-CON) - potassium chloride iv piggyback 20 mEq/100 mL - sodium phosphate 30 mmol in D5W 250 mL - sodium phosphate 45 mmol in D5W 250 mL - magnesium sulfate iv piggyback in sterile water 2 g 50 mL - calcium gluconate iv piggyback 2 g in NaCl (iso-osmotic) 100 mL - NORepinephrine iv infusion 16 mg in D5W 250 mL (LEVOPHED) - iv contrast (radiology procedure) - DOPamine iv infusion 800 mg/250 mL D5W - senna-docusate 8.6-50 mg 1 tablet (SENNA-S) - bisacodyl 10 mg suppository (DULCOLAX) - ondansetron (PF) 4 mg injection (ZOFRAN) - NaCl 0.9% iv flush bag - NaCl 0.9% iv infusion - hydrALAZINE 5-10 mg injection (APRESOLINE) - acetaminophen 650 mg tab(s) (TYLENOL) - acetaminophen 650 mg CUP (TYLENOL) - acetaminophen 650 mg suppository (TYLENOL) - atorvastatin 40 mg tab(s) (LIPITOR) - sodium chloride 0.9 % (flush) 2-10 mL (BD POSIFLUSH) - perflutren lipid microspheres 1.1 mg/mL 1.3 mL injection (DEFINITY) - levETIRAcetam 1,000 mg tab(s) (KEPPRA) - dexAMETHasone 10 mg tab(s) (DECADRON) Problem List As Of Date 05/01/2025 Noted Resolved Chest pain [R07.9] 04/25/2010 05/26/2024 Brain mass [G93.89] 03/17/2023 11/17/2023 Obesity, Class I, BMI 30-34.9 [E66.811] 03/17/2023 Brain compression (HCC) [G93.5] 03/20/2023 S/P brain surgery [Z98.890] 03/20/2023 11/17/2023 At risk for seizures [Z91.89] 03/20/2023 Cerebral edema (HCC) [G93.6] 03/20/2023 GBM (glioblastoma multiforme) (HCC) [C71.9] 04/07/2023 Syncope, unspecified syncope type [R55] 11/01/2023 11/03/2023 Examination of participant in clinical trial [Z*11/05/2023 11/17/2023 Forehead pain [R51.9] 11/05/2023 PONV (postoperative nausea and vomiting) [R11.2*05/26/2024 Acute post-operative pain [G89.18] 05/29/2024 Thrombocytopenia [D69.6] 10/13/2024 Vasogenic edema (HCC) [G93.6] 03/24/2025 Malnutrition of mild degree (HCC) [E44.1] 03/24/2025 Glioblastoma (HCC) [C71.9] 03/28/2025 Acute ischemic left MCA stroke (HCC) [I63.512] 05/01/2025 Hemiparesis of right dominant side (HCC) [G81.9*05/01/2025 Aphasia due to acute cerebrovascular accident (*05/01/2025 Sinus bradycardia [R00.1] 05/01/2025 Metabolic acidosis [E87.20] 05/01/2025 Hemiparesis due to acute cerebrovascular diseas*05/01/2025 Dysarthria due to acute stroke (HCC) [I63.9, R4*05/01/2025 History of seizure [Z87.898] 05/01/2025 Arterial ischemic stroke, MCA (middle cerebral *05/01/2025 Encounter Status:Closed by WAN ROMAN on 05/02/25 TRINO Observed: 04/28/2025 12:00 AM Status: COMPLETED Source: [facility] ANGEL KEATING ([id number]) 1970 M [facility] Date Time Provider Department 04/28/25 PATRICIA ENRIQUEZ [facility] During your visit today, we recorded the following information about you: Esme Cook, RN 04/28/2025 2:00 PM Signed Called and informed patient that he needs to get labs drawn Thursday at 145 PM and that we set up another Nplate injection for him. Verbalized understanding. Allergies As of Date: 04/28/2025 (No Known Allergies) Date Reviewed: 04/25/2025 Reviewed by: Soo Cardona RN - Fully Assessed Reason for Visit: Banking Supervisor - Other [[id number]] Prescriptions as of 04/28/2025 - modafinil (PROVIGIL) 100 mg tablet Take 1 tablet in the morning. If needed take another tablet at 2 pm - dexAMETHasone (DECADRON) 2 mg tablet decrease to 10 mg daily starting on 04/06 - [employer] kit Outpatient physical therapy - atovaquone (MEPRON) 750 mg/5 mL oral liquid Take 10 mL by mouth daily with breakfast. - dexAMETHasone (DECADRON) 6 mg tablet Take 1 tablet by mouth two times a day with meals. - lacosamide (VIMPAT) 150 mg tab Take 1 tablet by mouth two times a day for 180 days. - valACYclovir (VALTREX) 500 mg tablet Take 1 tablet by mouth once daily. - traZODone (DESYREL) 50 mg tablet TAKE 1 TABLET BY MOUTH EVERYDAY AT BEDTIME - pantoprazole DR (PROTONIX) 40 mg tablet Take 1 tablet by mouth once daily. - ondansetron (ZOFRAN) 8 mg tablet Take one tablet by mouth on an empty stomach in the evening one hour prior to chemo. Then take one tablet 24 hours after chemo. May repeat dose every 8-12 hours if needed to prevent nausea - midazolam (NAYZILAM) 5 mg/spray (0.1 mL) nasal spray Use 1 [place] in the nose as needed for up to 10 days. May repeat dose in alternate nostril after 10 minutes based on response and tolerability. - acetaminophen (TYLENOL) 325 mg tablet 2 tablets by ORAL/FEEDING TUBE route every 4 hours as needed for pain. Problem List As Of Date 04/28/2025 Noted Resolved Chest pain [R07.9] 04/25/2010 05/26/2024 Brain mass [G93.89] 03/17/2023 11/17/2023 Obesity, Class I, BMI 30-34.9 [E66.811] 03/17/2023 Brain compression (HCC) [G93.5] 03/20/2023 S/P brain surgery [Z98.890] 03/20/2023 11/17/2023 At risk for seizures [Z91.89] 03/20/2023 Cerebral edema (HCC) [G93.6] 03/20/2023 GBM (glioblastoma multiforme) (HCC) [C71.9] 04/07/2023 Syncope, unspecified syncope type [R55] 11/01/2023 11/03/2023 Examination of participant in clinical trial [Z*11/05/2023 11/17/2023 Forehead pain [R51.9] 11/05/2023 PONV (postoperative nausea and vomiting) [R11.2*05/26/2024 Acute post-operative pain [G89.18] 05/29/2024 Thrombocytopenia [D69.6] 10/13/2024 Vasogenic edema (HCC) [G93.6] 03/24/2025 Malnutrition of mild degree (HCC) [E44.1] 03/24/2025 Glioblastoma (HCC) [C71.9] 03/28/2025 Encounter Status:Closed by ESME COOK on 04/28/25 PROGRESS Observed: 04/27/2025 2:10 PM Status: COMPLETED Source: [facility] HNO ID: [id number] Author: TONA COBOS RN Service: ? Author Type: Registered Nurse Type: Progress Notes Filed: 04/27/2025 14:11 Note Text: PLT 34K No s/s of bleeding Daughter is getting on Thursday D/W Dr Fraire- still very tired without improvement in symptoms on Decadron 6mg Increase to 12mg daily Check labs on 05/01 with plan for N Plate if not increased Tona Cobos, RN, BSN Banking Supervisor [facility] CBC W AUTO DIFF BLD Collected: 04/27/2025 1:[address] atus: F Source: [facility] Order Comment: Specimen Type : BLOOD SPECIMEN Ordering Facility: [facility] Address: [address] [place] [address] TYPE CODE TESTS RESULT OUT OF RANGE REFERENCE UNITS LAB 6690-2(LOINC) WBC # Bld Auto 6.21 3.70-11.00 k/uL LAB 789-8(LOINC) RBC # Bld Auto 3.83 Low 4.20-6.00 m/ uL LAB 718-7([facility]) Hgb Bld-mCnc 13.2 13.0-17.0 g/dL LAB 4544-3([facility]) Hct VFr Bld Auto 37.2 Low 39.0-51.0 % LAB 787-2([facility]) MCV RBC Auto 97.1 80.0-100.0 fL LAB 785-6([facility]) MCH RBC Qn Auto 34.5 High 26.0-34.0 p g LAB 786-4([facility]) MCHC RBC Auto-mCnc 35.5 30.5-36.0 g/dL LAB 36112-5([facility]) RDW RBC-Rto 15.9 High 11.5-15.0 % LAB 777-3([facility]) Platelet # Bld Auto 34 Low 150-400 k/uL LAB 22798-3([facility]) PMV Bld Auto 10.2 9.0-12.7 fL LAB 770-8([facility]) Neutrophils/leuk NFr Bld Auto 88.1 % LAB 751-8([facility]) Neutrophils # Bld Auto 5.47 1.45-7.50 k/uL LAB 736-9([facility]) Lymphocytes/leuk NFr Bld Auto 7.9 % LAB 731-0([facility]) Lymphocytes # Bld Auto 0.49 Low 1.00-4.00 k/uL LAB 5905-5([facility]) Monocytes/leuk NFr Bld Auto 2.7 % LAB 742-7([facility]) Monocytes # Bld Auto 0.17 <0.87 k/uL LAB 713-8([facility]) Eosinophil/leuk NFr Bld Auto 0.0 % LAB 711-2([facility]) Eosinophil # Bld Auto <0.03 <0.46 k/uL LAB 706-2([facility]) Basophils/leuk NFr Bld Auto 0.2 % LAB 704-7([facility]) Basophils # Bld Auto <0.03 <0.11 k/uL LAB 72569-4([facility]) Imm Granulocytes/christina k NFr Bld Auto 1.1 % LAB 83838-5([facility]) Imm Granulocytes # Bld Auto 0.07 <0.10 k/uL LAB 73704-1(LOINC) nRBC/100 WBC Bld-Rto 0.0 /100 WBC LAB 771-6([facility]) nRBC # Bld Auto <0.01 <0.01 k/u L LAB 59640-3([facility]) Differential method Bld Auto Performed By: #### [id number] # ### [facility] CLIA [id number] [address] [place] [address] PROGRESS Observed: 04/25/2025 1:46 PM Status: COMPLETED Source: [facility] HNO ID: [id number] Author: MAGUE BARRETT LPN Service: ? Author Type: Licensed Nurse Type: Progress Notes Filed: 04/25/2025 15:08 Note Text: Patient presents with: Imm/Inj Pt is identified by name and birthdate: Yes. Allergies and medications reviewed. Latex allergy? No. Does this patient have: Unplanned weight loss or gain of greater than 10 pounds, or a change of appetite over the last year? No Does the patient have any concerns about safety in the home/falls? Not at risk for falls Has the patient fallen in the past year? No Does the patient have difficulty performing or completing routine daily living activities? No Does this patient have concerns about personal safety? No Is patient having pain? Pain: No=0 (pain 0 on a scale of 0-10). Health Maintenance: Reviewed and updated. Does patient have MyChart access or Caregiver proxy: yes Pt/Caregiver willingness and readiness to learn assessed: Yes. Barriers: none Nplate injection administered, left arm, tolerated well, no immediate adverse reactions noted. Mague Barrett LPN COMP METAB 2000 PNL SERPL Collected: 12:29 PM Status: F Source: [facility] Order Comment: Specimen Type : BLOOD SPECIMEN Ordering Facility: [facility] Address: [address] [place] [address] TYPE CODE TESTS RESULT OUT OF RANGE REFERENCE UNITS LAB 2885-2(LOINC) Prot SerPl-mCnc 6.3 6.3-8.0 g/dL LAB 1751-7(LOINC) Albumin SerPl-mCnc 3.4 Low 3.9-4.9 g/dL LAB 43968-8(LOINC) Calcium SerPl-mCnc 8.9 8.5-10.2 mg/dL LAB 1975-2([facility]) Bilirub SerPl-mCnc 0.7 0.2-1.3 mg/dL LAB 6768-6([facility]) ALP SerPl-cCnc 107 38-113 U/L LAB 1920-8(INC) AST SerPl-cCnc 18 14-40 U/L LAB 1742-6(INC) ALT SerPl-cCnc 42 10-54 U/L LAB 2345-7(INC) Glucose SerPl-mCnc 132 High 74-99 mg/dL Result Comment: The [place] Diabetes Association (ADA) provides guidance for cutoff values for fasting glucose and random glucose. The ADA defines fasting as no caloric intake for at least 8 hours. Fasting plasma glucose results between 100 to 125 mg/dL indicate increased risk for diabetes (prediabetes). Fasting plasma glucose results greater than or equal to 126 mg/dL meet the criteria for diagnosis of diabetes. In the absence of unequivocal hyperglycemia, results should be confirmed by repeat testing. In a patient with classic symptoms of hyperglycemia or hyperglycemic crisis, random plasma glucose results greater than or equal to 200 mg/dL meet the criteria for diagnosis of diabetes. Reference: Standards of Medical Care in Diabetes 2016, [place] Diabetes Association. Diabetes Care. 2016.39(Suppl 1). LAB 3094-0([facility]) BUN SerPl-mCnc 21 9-24 mg/dL LAB 2160-0(INC) Creat SerPl-mCnc 0.99 0.73-1.22 mg/dL LAB 2951-2(INC) Sodium SerPl-sCnc 138 136-144 mmol/L LAB 2823-3(LOINC) Potassium SerPl-sCnc 4.0 3.7-5.1 mmol/L LAB 2075-0(LOINC) Chloride SerPl-sCnc 106 98-107 mmol/L LAB 2027-9(LOINC) CO2 SerPl-sCnc 20 Low 22-30 mmol/L LAB 14645-4([facility]) Anion Gap SerPl-sCnc 12 8-15 mmol/L LAB 73737-7([facility]) eGFRcr SerPlBld CKD-EPI 2020 89 >=60 mL/min/1. 73m??? Result Comment: Estimated Gl omerular Filtration Rate (eGFR) is calculated using the 2020 CKD-EPI creatinine equation. This equation utilizes serum creatinine, sex, and age as parameters. The creatinine assay has traceable calibration to isotope dilution-mass spectrometry. Refer to KDIGO guidelines for clinical interpretation. In patients with unstable renal function, e.g. those with acute kidney injury, the eGFR may not accurately reflect actual GFR. Performed By: #### [id number] # ### [facility] CLIA [id number] [address] [place] [address] [place] CBC W AUTO DIFF BLD Collected: 04/25/2025 12:29 PM S tatus: F Source: [facility] Order Comment: Specimen Type : BLOOD SPECIMEN Ordering Facility: [facility] Address: [address] [place] [address] TYPE CODE TESTS RESULT OUT OF RANGE REFERENCE UNITS LAB 6690-2(LOINC) WBC # Bld Auto 4.50 3.70-11.00 k/uL LAB 789-8(LOINC) RBC # Bld Auto 3.91 Low 4.20-6.00 m/ uL LAB 718-7([facility]) Hgb Bld-mCnc 13.7 13.0-17.0 g/dL LAB 4544-3([facility]) Hct VFr Bld Auto 38.5 Low 39.0-51.0 % LAB 787-2(LO[facility]) MCV RBC Auto 98.5 80.0-100.0 fL LAB 785-6(LOINC) MCH RBC Qn Auto 35.0 High 26.0-34.0 p g LAB 786-4(LO[facility]) MCHC RBC Auto-mCnc 35.6 30.5-36.0 g/dL LAB 96431-6(LOINC) RDW RBC-Rto 16.3 High 11.5-15.0 % LAB 777-3(LO[facility]) Platelet # Bld Auto 35 Low 150-400 k/uL Result Comment: No clot dete cted. LAB 20615-1(LOINC) PMV Bld Auto 9.5 9.0-12.7 fL LAB 770-8(LO[facility]) Neutrophils/leuk NFr Bld Auto 82.5 % LAB 751-8(LOINC) Neutrophils # Bld Auto 3.71 1.45-7.50 k/uL LAB 736-9(LOINC) Lymphocytes/leuk NFr Bld Auto 9.3 % LAB 731-0(LOINC) Lymphocytes # Bld Auto 0.42 Low 1.00-4.00 k/uL LAB 5905-5(LOINC) Monocytes/leuk NFr Bld Auto 6.0 % LAB 742-7(LOINC) Monocytes # Bld Auto 0.27 <0.87 k/uL LAB 713-8(LOINC) Eosinophil/leuk NFr Bld Auto 0.2 % LAB 711-2(LOINC) Eosinophil # Bld Auto <0.03 <0.46 k/uL LAB 706-2(LO[facility]) Basophils/leuk NFr Bld Auto 0.4 % LAB 704-7(LOINC) Basophils # Bld Auto <0.03 <0.11 k/uL LAB 38203-5(LOINC) Imm Granulocytes/christina k NFr Bld Auto 1.6 % LAB 67645-0(LOINC) Imm Granulocytes # Bld Auto 0.07 <0.10 k/uL LAB 69786-8(LOINC) nRBC/100 WBC Bld-Rto 0.0 /100 WBC LAB 771-6([facility]) nRBC # Bld Auto <0.01 <0.01 k/u L LAB 72407-4(LOINC) Differential method Bld Auto Performed By: #### [id number] # ### [facility] CLIA [id number] [address] [place] [address] [place] CNPN Observed: 04/25/2025 12:00 AM Status: COMPLETED Source: [facility] Telephone ([facility]) RISHABHANGEL Conchita ([id number]) 1970 M T Date Time Provider Department 04/25/25 PATRICIA ENRIQUEZ During your visit today, we recorded the following information about you: Tona Cobos, VAZQUEZ 04/25/2025 4:10 PM Signed PLT today were 35K and he received N-Plate injection. No s/s of bleeding but feels a bit shaky. Tapered off decadron on Thursday. Last dose was 2mg. Per Dr Fraire- resume Decadron at 6mg per day. Repeat Plt count on , April 27 at 1pm at [facility]. Lab scheduled. I called and discuss with Allergies As of Date: 04/25/2025 (No Known Allergies) Date Reviewed: 04/25/2025 Reviewed by: Soo Cardona RN - Fully Assessed Reason for Visit: Resume Decadron 6mg daily [Other] Prescriptions as of 05/05/2025 - modafinil (PROVIGIL) 100 mg tablet Take 1 tablet in the morning. If needed take another tablet at 2 pm - dexAMETHasone (DECADRON) 2 mg tablet decrease to 10 mg daily starting on 04/06 - [employer] kit Outpatient physical therapy - atovaquone (MEPRON) 750 mg/5 mL oral liquid Take 10 mL by mouth daily with breakfast. - dexAMETHasone (DECADRON) 6 mg tablet Take 1 tablet by mouth two times a day with meals. - lacosamide (VIMPAT) 150 mg tab Take 1 tablet by mouth two times a day for 180 days. - valACYclovir (VALTREX) 500 mg tablet Take 1 tablet by mouth once daily. - acetaminophen (TYLENOL) 325 mg tablet 2 tablets by ORAL/FEEDING TUBE route every 4 hours as needed for pain. Facility-Administered Medications as of 05/05/2025 - losartan 12.5 mg tab(s) (COZAAR) - hydrALAZINE 5-10 mg injection (APRESOLINE) - atovaquone 1,500 mg oral liquid (MEPRON) - valACYclovir 500 mg tab(s) (VALTREX) - dextrose 15 gram/32 mL 15 g (TRUEPLUS) - glucagon 1 mg injection - dextrose 10% iv bolus - insulin regular human injection (short acting) - aspirin 81 mg chewable tab(s) - enoxaparin 40 mg injection (LOVENOX) - senna-docusate 8.6-50 mg 1 tablet (SENNA-S) - bisacodyl 10 mg suppository (DULCOLAX) - ondansetron (PF) 4 mg injection (ZOFRAN) - NaCl 0.9% iv flush bag - NaCl 0.9% iv infusion - acetaminophen 650 mg tab(s) (TYLENOL) - acetaminophen 650 mg CUP (TYLENOL) - acetaminophen 650 mg suppository (TYLENOL) - atorvastatin 40 mg tab(s) (LIPITOR) - sodium chloride 0.9 % (flush) 2-10 mL (BD POSIFLUSH) - levETIRAcetam 1,000 mg tab(s) (KEPPRA) - dexAMETHasone 10 mg tab(s) (DECADRON) Problem List As Of Date 04/25/2025 Noted Resolved Chest pain [R07.9] 04/25/2010 05/26/2024 Brain mass [G93.89] 03/17/2023 11/17/2023 Obesity, Class I, BMI 30-34.9 [E66.811] 03/17/2023 Brain compression (HCC) [G93.5] 03/20/2023 S/P brain surgery [Z98.890] 03/20/2023 11/17/2023 At risk for seizures [Z91.89] 03/20/2023 Cerebral edema (HCC) [G93.6] 03/20/2023 GBM (glioblastoma multiforme) (HCC) [C71.9] 04/07/2023 Syncope, unspecified syncope type [R55] 11/01/2023 11/03/2023 Examination of participant in clinical trial [Z*11/05/2023 11/17/2023 Forehead pain [R51.9] 11/05/2023 PONV (postoperative nausea and vomiting) [R11.2*05/26/2024 Acute post-operative pain [G89.18] 05/29/2024 Thrombocytopenia [D69.6] 10/13/2024 Vasogenic edema (HCC) [G93.6] 03/24/2025 Malnutrition of mild degree (HCC) [E44.1] 03/24/2025 Glioblastoma (HCC) [C71.9] 03/28/2025 Encounter Status:Closed by TONA COBOS on 05/05/25 CBC W AUTO DIFF BLD Collected: 04/21/2025 9:[address] atus: F Source: [facility] Order Comment: Specimen Type : BLOOD SPECIMEN Ordering Facility: [facility] Address: [address] [place] [address] TYPE CODE TESTS RESULT OUT OF RANGE REFERENCE UNITS LAB 6690-2([facility]) WBC # Bld Auto 5.59 3.70-11.00 k/uL LAB 789-8([facility]) RBC # Bld Auto 3.81 Low 4.20-6.00 m/ uL LAB 718-7([facility]) Hgb Bld-mCnc 13.5 13.0-17.0 g/dL LAB 4544-3([facility]) Hct VFr Bld Auto 37.7 Low 39.0-51.0 % LAB 787-2([facility]) MCV RBC Auto 99.0 80.0-100.0 fL LAB 785-6([facility]) MCH RBC Qn Auto 35.4 High 26.0-34.0 p g LAB 786-4([facility]) MCHC RBC Auto-mCnc 35.8 30.5-36.0 g/dL LAB 29011-8([facility]) RDW RBC-Rto 16.5 High 11.5-15.0 % LAB 777-3([facility]) Platelet # Bld Auto 46 Low 150-400 k/uL LAB 10183-2([facility]) PMV Bld Auto 11.3 9.0-12.7 fL LAB 770-8([facility]) Neutrophils/leuk NFr Bld Auto 83.7 % LAB 751-8([facility]) Neutrophils # Bld Auto 4.68 1.45-7.50 k/uL LAB 736-9([facility]) Lymphocytes/leuk NFr Bld Auto 9.8 % LAB 731-0([facility]) Lymphocytes # Bld Auto 0.55 Low 1.00-4.00 k/uL LAB 5905-5([facility]) Monocytes/leuk NFr Bld Auto 4.5 % LAB 742-7([facility]) Monocytes # Bld Auto 0.25 <0.87 k/uL LAB 713-8([facility]) Eosinophil/leuk NFr Bld Auto 0.4 % LAB 711-2([facility]) Eosinophil # Bld Auto <0.03 <0.46 k/uL LAB 706-2([facility]) Basophils/leuk NFr Bld Auto 0.2 % LAB 704-7([facility]) Basophils # Bld Auto <0.03 <0.11 k/uL LAB 72958-2([facility]) Imm Granulocytes/christina k NFr Bld Auto 1.4 % LAB 09741-7([facility]) Imm Granulocytes # Bld Auto 0.08 <0.10 k/uL LAB 27666-2([facility]) nRBC/100 WBC Bld-Rto 0.0 /100 WBC LAB 771-6([facility]) nRBC # Bld Auto <0.01 <0.01 k/u L LAB 80433-4([facility]) Differential method Bld Auto Performed By: #### [id number] # ### [facility] CLIA [id number] [address] [place] [address] [place] [facility] URINALYSIS, DIPSTICK ONLY Collected: 04/21/2025 9:32 AM Status: F Source: [facility] Order Comment: Specimen Type : URINE SPECIMEN Ordering Facility: [facility] Address: [address] [place] [address] TYPE CODE TESTS RESULT OUT OF RANGE REFERENCE UNITS LAB 5778-6([facility]) Color Ur Yellow Yellow LAB 25622-1(LOINC) Clarity Spec Clear Clear LAB 5792-7([facility]) Glucose Ur Strip-mCnc Negative Negative LAB 5770-3([facility]) Bilirub Ur Ql Strip Negative Negative LAB 2514-8(LOINC) Ketones Ur Strip Negative Negative LAB 5811-5(LOINC) Sp Gr Ur Strip 1.021 1.005-1.030 LAB 5794-3([facility]) Hgb Ur Ql Strip Negative Negative LAB 5803-2([facility]) pH Ur Strip 5.5 5.0-8.0 LAB 5804-0(LOINC) Prot Ur Strip-mCnc Negative Negative LAB 5818-0([facility]) Urobilinogen Ur Strip 1.0 EU/dL 0.2-1.0 EU/dL LAB 5802-4([facility]) Nitrite Ur Ql Strip Negative Negative LAB 5799-2(LOINC) Leukocyte esterase Ur Ql Strip Negative Negative Performed By: #### UA #### [facility] CLIA [id number] [address] [place] [address] CNPN Observed: 04/21/2025 12:00 AM Status: COMPLETED Source: [facility] Telephone ([facility]) ANGEL KEATING ([id number]) 1970 M T Date Time Provider Department 04/21/25 PATRICIA ENRIQUEZ [facility] During your visit today, we recorded the following information about you: Tona Cobos RN 04/21/2025 4:57 PM Signed Scheduling Request - Established Patient Time Frame: week of 06/19/25 Orders: MRI brain w/wo contast Provider: Dr Fraire within 1-2 days of scan Visit type: In person Diagnosis: glioblastoma Nayla, Catrachita R 04/25/2025 3:28 PM Signed Unable to reach Pt Left Sent Demeure message AND mailed out appointment reminder letter. Allergies As of Date: 04/21/2025 (No Known Allergies) Date Reviewed: 04/20/2025 Reviewed by: Jemima Chinchilla MA - Fully Assessed Reason for Visit: JUANCARLOS week of 06/19/25 [Other] Prescriptions as of 04/25/2025 - modafinil (PROVIGIL) 100 mg tablet Take 1 tablet in the morning. If needed take another tablet at 2 pm - dexAMETHasone (DECADRON) 2 mg tablet decrease to 10 mg daily starting on 04/06 - [employer] kit Outpatient physical therapy - atovaquone (MEPRON) 750 mg/5 mL oral liquid Take 10 mL by mouth daily with breakfast. - dexAMETHasone (DECADRON) 6 mg tablet Take 1 tablet by mouth two times a day with meals. - lacosamide (VIMPAT) 150 mg tab Take 1 tablet by mouth two times a day for 180 days. - valACYclovir (VALTREX) 500 mg tablet Take 1 tablet by mouth once daily. - traZODone (DESYREL) 50 mg tablet TAKE 1 TABLET BY MOUTH EVERYDAY AT BEDTIME - pantoprazole DR (PROTONIX) 40 mg tablet Take 1 tablet by mouth once daily. - ondansetron (ZOFRAN) 8 mg tablet Take one tablet by mouth on an empty stomach in the evening one hour prior to chemo. Then take one tablet 24 hours after chemo. May repeat dose every 8-12 hours if needed to prevent nausea - midazolam (NAYZILAM) 5 mg/spray (0.1 mL) nasal spray Use 1 [place] in the nose as needed for up to 10 days. May repeat dose in alternate nostril after 10 minutes based on response and tolerability. - acetaminophen (TYLENOL) 325 mg tablet 2 tablets by ORAL/FEEDING TUBE route every 4 hours as needed for pain. Facility-Administered Medications as of 04/25/2025 - NaCl 0.9% iv infusion - diphenhydrAMINE 50 mg injection (BENADRYL) - hydrocortisone sodium succinate (PF) 100 mg injection (Solu-CORTEF) - EPINEPHrine HCl (PF) 1 mg/mL (1 mL) 0.3 mg injection Problem List As Of Date 04/21/2025 Noted Resolved Chest pain [R07.9] 04/25/2010 05/26/2024 Brain mass [G93.89] 03/17/2023 11/17/2023 Obesity, Class I, BMI 30-34.9 [E66.811] 03/17/2023 Brain compression (HCC) [G93.5] 03/20/2023 S/P brain surgery [Z98.890] 03/20/2023 11/17/2023 At risk for seizures [Z91.89] 03/20/2023 Cerebral edema (HCC) [G93.6] 03/20/2023 GBM (glioblastoma multiforme) (HCC) [C71.9] 04/07/2023 Syncope, unspecified syncope type [R55] 11/01/2023 11/03/2023 Examination of participant in clinical trial [Z*11/05/2023 11/17/2023 Forehead pain [R51.9] 11/05/2023 PONV (postoperative nausea and vomiting) [R11.2*05/26/2024 Acute post-operative pain [G89.18] 05/29/2024 Thrombocytopenia [D69.6] 10/13/2024 Vasogenic edema (HCC) [G93.6] 03/24/2025 Malnutrition of mild degree (HCC) [E44.1] 03/24/2025 Glioblastoma (HCC) [C71.9] 03/28/2025 Encounter Status:Closed by CATRACHITA CASTELAN on 04/25/25 CNPN Observed: 04/21/2025 12:00 AM Status: COMPLETED Source: [facility] Telephone (NSCAMN) ANGEL KEATING ([id number]) 1970 M T Date Time Provider Department 04/21/25 PATRICIA ENRIQUEZ NSCAMN During your visit today, we recorded the following information about you: Tona Cobos RN 04/21/2025 12:05 PM Addendum PLTs up from 40K to 46K. Per Dr Fraire Stat CBC ordered and scheduled at [facility] for 12:30 on April 25 and N Plate injection if needed at 1:30 pm. Called and discussed above with patient's mother He will wait for instructions after lab draw Tona Cobos RN, BSN Banking Supervisor [facility] Allergies As of Date: 04/21/2025 (No Known Allergies) Date Reviewed: 04/20/2025 Reviewed by: Jemima Chinchilla MA - Fully Assessed Reason for Visit: Labs and N Plate [Other] Prescriptions as of 04/21/2025 - modafinil (PROVIGIL) 100 mg tablet Take 1 tablet in the morning. If needed take another tablet at 2 pm - dexAMETHasone (DECADRON) 2 mg tablet decrease to 10 mg daily starting on 04/06 - [employer] kit Outpatient physical therapy - atovaquone (MEPRON) 750 mg/5 mL oral liquid Take 10 mL by mouth daily with breakfast. - dexAMETHasone (DECADRON) 6 mg tablet Take 1 tablet by mouth two times a day with meals. - lacosamide (VIMPAT) 150 mg tab Take 1 tablet by mouth two times a day for 180 days. - valACYclovir (VALTREX) 500 mg tablet Take 1 tablet by mouth once daily. - traZODone (DESYREL) 50 mg tablet TAKE 1 TABLET BY MOUTH EVERYDAY AT BEDTIME - pantoprazole DR (PROTONIX) 40 mg tablet Take 1 tablet by mouth once daily. - ondansetron (ZOFRAN) 8 mg tablet Take one tablet by mouth on an empty stomach in the evening one hour prior to chemo. Then take one tablet 24 hours after chemo. May repeat dose every 8-12 hours if needed to prevent nausea - midazolam (NAYZILAM) 5 mg/spray (0.1 mL) nasal spray Use 1 [place] in the nose as needed for up to 10 days. May repeat dose in alternate nostril after 10 minutes based on response and tolerability. - acetaminophen (TYLENOL) 325 mg tablet 2 tablets by ORAL/FEEDING TUBE route every 4 hours as needed for pain. Problem List As Of Date 04/21/2025 Noted Resolved Chest pain [R07.9] 04/25/2010 05/26/2024 Brain mass [G93.89] 03/17/2023 11/17/2023 Obesity, Class I, BMI 30-34.9 [E66.811] 03/17/2023 Brain compression (HCC) [G93.5] 03/20/2023 S/P brain surgery [Z98.890] 03/20/2023 11/17/2023 At risk for seizures [Z91.89] 03/20/2023 Cerebral edema (HCC) [G93.6] 03/20/2023 GBM (glioblastoma multiforme) (HCC) [C71.9] 04/07/2023 Syncope, unspecified syncope type [R55] 11/01/2023 11/03/2023 Examination of participant in clinical trial [Z*11/05/2023 11/17/2023 Forehead pain [R51.9] 11/05/2023 PONV (postoperative nausea and vomiting) [R11.2*05/26/2024 Acute post-operative pain [G89.18] 05/29/2024 Thrombocytopenia [D69.6] 10/13/2024 Vasogenic edema (HCC) [G93.6] 03/24/2025 Malnutrition of mild degree (HCC) [E44.1] 03/24/2025 Glioblastoma (HCC) [C71.9] 03/28/2025 Encounter Status:Closed by TONA COBOS on 04/21/25 PROGRESS Observed: 04/20/2025 4:44 PM Status: COMPLETED Source: [facility] HNO ID: [id number] Author: PATRICIA ENRIQUEZ MD Service: ? Author Type: Physician Type: Progress Notes Filed: 04/20/2025 23:47 Note Text: [facility] TUMOR C[facility] NEURO-ONCOLOGY CLINIC VISIT NOTE B [facility] Team: -Jose Evans MD, Neurosurgery -SAV Rodriguez, Radiation Oncology -Patricia Enriquez MD, Neuro-Oncology DIAGNOSIS: MGMT unmethylated Glioblastoma. 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 He initially presented with anxiety-attack like episodes going back to January 2023 as well as a fall, without loss of consciousness but +trauma to head around 02/27/2023. On 03/16/2023, he presented to [facility] ED with word finding difficulty, report of one-time fever of 101 in February, anxiety, increased thirst and urination and was found to have a L temporal mass with midline subfalcine shift concerning for high grade glioma. He was afebrile with normal glucose level and electrolytes. He underwent gross total resection by Dr. Evans on 03/19/2023, revealing an MGMT unmethylated glioblastoma, WHO Grade 4. He was discharged on keppra 750mg BID and dexamethasone taper. He established care with Dr. Enriquez and given paroxysmal episodes of anxiety, he was concerned about temporal lobe epilepsy and advised lifelong AED to reduce seizure risk. The patient was exhibiting some fatigue and dullness, so a cross taper from keppra to vimpat, with goal of vimpat 150mg BID. The patient expressed interest in clinical trials and enrolled onto [facility]. He was randomized to the [id number] arm (cyclic peptide modulating tumor microenvironment). TREATMENT HISTORY Gross total resection [03/19/2023] [facility] Dr. Evans MGMT unmethylated Glioblastoma. L temporal [facility] AGILE, randomized to [id number] IV twice weekly arm + Standard concurrent chemotherapy and radiation (04/20- 05/29/2023) [facility] Dr. Joyce and Dr. Enriquez Adjuvant temozolomide PO D1-5 q 28 days C1 07/01/23, will start 07/03 150mg/m2 C2 07/27/23 C3 08/31/23 C4 09/21/23 C5 10/26/23 C6 11/23/23 C7 12/28/23 STOP ADJ TMZ as the clinical; trial calls for up to 6 cycles. For some reason the patient had an extra cycle of Adj TMZ. Adjuvant [id number] during Maintenance: Cycle 7 Week 1 - infusions on 12/14/2023 (D1) and 12/17/2023 (D4) Cycle 7 Week 2 - infusions on 12/21/2023 (D8) and 12/24/2023 (D11) Cycle 7 Week 3 - infusions on 12/28/2023 (D15) and 12/31/2023 (D18) Cycle 7 Week 4 - infusions on 01/05/2024 (D22) and 01/08/2024 (D25) Cycle 8 Week 5 - infusions on 01/11/2024 and 01/14/2024 02/08/2024: MRI shows progression 02/08/[address] [facility] [address] Evans for possible surgery. If surgery offered, he can be enrolled in CASE 3322 clinical trial with methimazole + chemo. 02/18/24: Dr Evans recommended NO surgery. 02/26/24 Lomustine 90mg/m2 C#1 02/25-04/08/24 04/12/24 Tumor progression, increased CBV 04/14/2024 BTB Referrals to se Dr. Evans for possible surgery. The patient is also eligible, for CASE 3322 clinical trial with methimazole + chemo. 04/28/2024 Jose Evans MD since the patient, and recommended surgery. 04/28/2024 clinical trials team, saw the patient, the patient is eligible, for for CASE 3322 clinical trial with methimazole + chemo. Patient signed consent. Treatment plan: Pre-operative treatment Phase -Methimazole - Pre-Op period: 05/24/2024 to 05/27/2024 (last dose is DAY of surgery) -Dose level 2 (25 mg daily) Surgical resection 05/27/[address] 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 C1D1 (10-28 days after surgery) -Scheduled for 06/16/2024 (20 days post op) -Methimazole - Post-Op period: 05/27/2024- TBD -Dose level 2 (25 mg judy C1D1 lomustine 110 mg/m2 - 07/28/24 - NOTE DATE ENTERED IN ERROR - PATIENT DID NOT TAKE CHEMO ON 08/07/2024 C2D1 lomustine -- planned for 09/07/24 08/22/2024 Brain MR - new enhancing nodules. 08/29/2024 BTB recommend to continue on lomustine, and SRS to enhancing nodules, which was completed. CORRECTED DATES OF CHEMO: C1D1 JUN 28, 2024 09/05/2024 NOTE: RE; DISCREPANCY ON LOMUSTINE CYCLE. The patient recalled that he had taken Lomustine cycle No 1 [after 2nd surgery (05/27/2024)] on ~mid June 2024 and that he was due for cycle No 2 for early August 2024 We reviewed the pharmacy records and indeed the patient took cycle No 1 of Lomustine on 06/28/25, and he was due for next cycle on ~Aug 12, 2024. Pharmacy note confirm that lomustine was delivered. Although per patient knowledge that he needed to start his chemo, cycle No 2 of lomustine on 1st week of Aug 2024 - however he did not started as he was instructed that the chemo was to start not until Sep 07, 2024. Hence the patient had not started his chemo. 09/05/2024: The patient brought lomustine capsules, cycle No 2, as he noted - issued on 08/05/2024 - which should have started on Aug 12, 2024. The reason for the discrepancy - likely entry data error of when he took cycle No 1 of lomustine - erroneously was entered as 07/28/2025. Lomustine 90mg/m2 C#2 09/05-10/17/24 September 19, 2024 - September 23, 2024 Dr Joyce SRS-GK: AREA TREATED: 1) Lt Temp 2) LT Ant Falx 3) Lt Sup Front 4) Lt Tent 5) Lt Temp 10/12/2024 MRI BRAIN WO/W Foci of nodular enhancement along the left temporal resection cavity are similar compared to 09/19/2024 (increased compared to 08/22/2024). Increased nonenhancing T2/FLAIR hyperintensity within the left temporal lobe compared to 08/22/2024. Lomustine 90mg/m2 C#3 10/21-12/02/24 11/16/2024 Brain MR. 1- CONTINUED GROWTH OF 2 NODULAR FOCI AT THE DEPTH OF LEFT TEMPORAL RESECTION CAVITY, DETAILED. THE LARGER SHOWS MODERATELY INCREASED CBV, SUSPICIOUS FOR PROGRESSION. 2. STABLE EXTRA-AXIAL ENHANCING LESION OVER LEFT MEDIAL FRONTAL LOBE, WITH REDUCED SIZE OF MORE LATERAL EXTRA-AXIAL LESION 3. REDUCED LEFT FRONTAL EPIDURAL HEMATOMA 4. NO NEW ACUTE PROCESS OR SUSPICIOUS ENHANCEMENT NOTE: Had MRI sooner than scheduled (11/30/2024), as the MR center called him asking if he wanted to have his MR sooner, as someone had canceled. Lomustine 90mg/m2 C#4 12/11/24-01/22/25 01/17/2025 Brain MR Evolving post therapy changes with progressive nodular enhancement and T2 signal abnormality in the medial left temporal lobe and insula, suspicious for progressive malignancy. 01/17/2025 Clinic visit: MRI changes probably treatment effect, recommend continue current treatment, lomustine. Lomustine 90mg/m2 C#5 01/22/25-03/05/25 01/24/2025: I reviewed the patients case/images with his oncology team, including Indu Blanchard his Radiation Oncologist, and with Dr. Evans, his neurosurgeon, and they agree with the approach to continue on the current management, that is lomustine,a and continue imaging surveillance. No need for any additional intervention at this juncture. Patricia Enriquez MD 02/28/2025 Brain MR Interval in size of nodular enhancement along the medial aspect of the resection cavity and significant interval increase in confluent T2/FLAIR hyperintensity. No elevated cerebral blood volume on the perfusion sequence to suggest neovascularity. Recommend short-term interval follow-up to exclude progressive disease. 03/02/2025 Clinic visit: MRI changes probably treatment effect, recommend continue current treatment, lomustine. Lomustine 90mg/m2 C#/03/09-04/20/25 03/24/2025 - 03/31/2025 Admission (7 days) [facility]; Admitted due to progressive right sided arm/leg weakness, and aphasia, mainly word finding difficulty. Improved on steroids. - 03/25/2025 Brain MR and increasing enhancing small lesions adjacent to the left half of the falx compatible with progressive disease. Interval increase in size of the enhancement in the left mesial temporal lobe and left intralenticular region with increased vasogenic edema. However no elevated CBV associated with this area. No evidence of leptomeningeal disease. -Seen by Dr. Evans, patient's neurosurgeon, recommended no surgery -Rad Onc also saw patient, recommend no radiation 03/27/2025 Brain Tumor Board: changes seen on MR 03/25/2025 favor treatment effect (tumor cannot be excluded with certainty). Agreed with bevacizumab (edwin), and to continue lomustine. Note: patient pricila completed 6/6 cycle of Lomustine (CCNU), 03/09-04/20/25 04/05/2025 1st infusion. bevacizumab (edwin) 10 mg/Kg every 2 weeks. April 05, 2025 HPI In person visit The patient is accompanied by mother. The patient says, that he is doing better, he is ambulating, and going up stairs using a cane, and a walker.has no known allergies. Trouble with word finding is still there but improving. He feels that his comprehension is okay. However he needs to think more to say what he wants to say. Denies fevers, headaches, nausea or vomiting He expresses a desire to remain functional for his daughter's wedding which is for the month of April 2025. Past Diagnostic Results: - (01/17/2025) MRI: Evolving post-therapy changes with progressive nodular enhancement and T2 signal; suspicious for progressive malignancy. - (11/2024) MRI: Comparison for January 2025 MRI. 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 He reports increased fatigue and weakness, since starting bevacizumab. He experiences a decline in energy and strength for 48-60 hours after each treatment, followed by partial recovery, but never to his previous baseline. He notes worsening balance and overall weakness, impacting his daily activities. He denies recent seizures. Despite these symptoms, he remains somewhat active, managing his daily routine independently, including preparing meals and walking for about 10 minutes daily. He expresses a desire to improve his energy levels to attend his daughter's wedding in nine days. He is currently tapering dexamethasone, with plans to discontinue it in three days. CHEMO: see above Steroids: currently tapering dexamethasone, with plans to discontinue it in three days. 03/31/2025 open discharged from the hospital Antiseizure medications: lacosamide 150 mg Tab Commonly known as: VIMPAT Take 1 tablet by mouth two times a day for 180 days. PHYSICAL EXAMINATION: - Neurological: - CNII: Visual land intact. - CNIII/CNIV/CNVI: Extraocular movements intact. - CNV: Sensation intact. - CNVII: Facial movements intact. - CNIX/CNX: Palate elevation intact. - CNXI: Shoulder shrug strength intact. - Motor: No atrophy or asymmetry noted. - Strength: - Arms: - Deltoids: Left: 5/5, Right: 5-/5 - Biceps: Left: 5/5, Right: 5-/5 - Triceps: Left: 5/5, Right: 5-/5 - Lower Extremities: - Hip Flexors: Left: 5/5, Right: 5-/5 - Hip Extensors: Left: 5/5, Right: 5-/5 - Knee Flexion: Left: 5/5, Right: 5-/5 - Knee Extension: Left: 5/5, Right: 5-/5 - Ankle Dorsiflexion: Left: 5/5, Right: 5-/5 - Ankle Plantarflexion: Left: 5/5, Right: 5-/5 - Reflexes: - Arms: - Triceps: Left: 2+, Right: 2+ - Biceps: Left: 2+, Right: 2+ - Brachioradialis: Left: 2+, Right: 2+ - Lower Extremities: - Patella: Left: 2+, Right: 2+ - Achilles: Left: 2+, Right: 2+ - Sensation: Intact to light touch and pinprick. - Coordination: Gvkkwt-[id number]-fyed and kgwo-nt-lcjx testing intact. - Gait: somewhat slow Imaging: MRI Report MRI BRAIN WO/W IVCON Exam End: 04/18/2025 1:28 PM (Final result) Narrative: * * *Final Report* * * DATE OF EXAM: Apr 18 2025 1:28PM [facility] [id number] - MRI BRAIN WO/W IVCON / PROCEDURE REASON: GBM (glioblastoma multiforme) (HCC) * * * * Physician Interpretation * * * * EXAMINATION: MRI BRAIN WO/W IVCON CLINICAL HISTORY: Glioblastoma. Status post resection and chemoradiation treatment with subsequent recurrence requiring a second resection with chemotherapy and gamma knife radiosurgery. TECHNIQUE: Routine brain MRI protocol without and with contrast including diffusion and perfusion images. MQ: [id number] Contrast: 18 mL Dotarem IV COMPARISON: MRI brain 02/28/2025. RESULT: Acute Change: Faint diffusion abnormality present within the LEFT basal ganglia is felt to be artifactual/reflecting T2 shine through. Hemorrhage: Redemonstrated susceptibility artifact of the left middle cranial fossa resection site consistent with blood byproducts. Posttreatment/Mass Lesion/ Mass Effect: Redemonstrated postoperative changes status post left temporal craniotomy. Evolving collection in the resection cavity with susceptibility artifact along the margins, suggestive of blood products. Slight decrease in size to the overlying left extra-axial/extracranial subgaleal fluid collection with interval resolution to the multiple fluid-fluid levels. Slight interval decrease in size of the residual enhancing lesion at the medial aspect of the resection cavity, now with less extension superiorly into the medial insular cortex/basal ganglia. This measures approximately 2.7 x 2.2 x 2.0 cm in greatest transaxial dimensions (14:48, 13:19) previously 2.7 x 2.2 x 1.8 cm when measured similarly. Interval decrease in size/extent of the surrounding T2/FLAIR signal, with less involvement of the left periventricular and temporal lobes. Similar foci of enhancement along the anterior falx in the superior left frontal lobe measuring up to 1.3 cm (14:93) and 1.5 cm (14:97). No new abnormal parenchymal or leptomeningeal enhancement is noted following contrast administration. No significant mass effect. Perfusion: No distinct perfusion abnormality. Chronic Change: Scattered punctate foci of increased T2 and FLAIR signal are noted in the supratentorial white matter which is a nonspecific finding, but likely represents minimal chronic microvascular ischemia. Parenchyma: There is mild generalized parenchymal volume loss. Ventricles: Ventriculomegaly corresponds to the degree of parenchymal volume loss. Skull Base: Hypothalamic and pituitary region are grossly normal. Craniocervical junction is normal. No significant marrow replacement process. Vasculature: Major intracranial arterial structures, and dural venous sinuses show typical flow void, suggesting patency by spin echo criteria. Other: Mild paranasal sinus mucosal thickening. The mastoid air cells are clear. The orbits and extracranial soft tissues are unremarkable. Impression: IMPRESSION: Compared to 02/28/2025, minimally decreased size of the enhancing mesial left temporal lobe lesion with significantly improved surrounding T2/FLAIR signal abnormality. No perfusion abnormality. Stable size of small enhancing lesions along the left falx. No new abnormal parenchymal or leptomeningeal enhancement. Call Worker Person: [facility] Transcribe Date/Time: Apr 18 2025 1:58P Dictated by : BASILIA GOODMAN MD This examination was interpreted and the report reviewed and electronically signed by: ANDREA NICHOLSON MD on Apr 18 2025 3:03PM EST MR From Left to Right: 03/25/2025; 04/18/2025 MR From Left to Right: 03/25/2025; 04/18/2025 I reviewed the MRI's with the patient/family. Assessment AND Plan 1. Glioblastoma (HCC) (C71.9) 1A. Encounter for antineoplastic chemotherapy (Z51.11) - The patient completed lomustine 90mg/m2 C#6/6 from 03/09-04/20/25 - Completed 6/6 cycles of Lomustine, in light, that the MRI changes, and likely treatment effect. Will proceed to treat the patient only with bevacizumab. - CBC, CMP, urine analysis - Bevacizumab, 10 mg/kg, every 2 weeks. - The patient will need to have, repeat CBC, CMP, and also protein in urine, this test, will be done on every infusion. -1st infusion 04/05/2025. - 2nd infusion 04/19/2025 - Radiologic benefit seen on 04/18/2025 brain MRI -MRI brain w and w/o dated 04/18/2025: Significantly improved surrounding T2/FLAIR signal abnormality - Brain MRI w/wo IVCON and perfusion studies in 2 months - Return for clinic visit in person in 4 weeks time - Return for clinic visit in person in 8 weeks time, after MRI. 3. Seizures (HCC) (R56.9) 4. Seizure disorder (HCC) (G40.909) - Seizures well-controlled on lacosamide 150 mg BID; no recent seizure activity reported. - Continue current anticonvulsant therapy. 5. Psoriasis (L40.9) - Chronic scaly, flaky rashes reported on scalp, chest, arms, and legs. - Advised patient to document and upload photos of rashes to [email or web address] for further evaluation. 6. Fatigue (R53.81) - Start modafinil 100 mg daily to address fatigue; discussed that dose may be increased to 200 mg if needed. - Discussed potential for adrenal insufficiency following dexamethasone discontinuation; instructed patient to report any concerning symptoms Tre Beasley MD Neuro-Oncology Fellow Supervising Neuro-Oncology Staff: Dr. Enriquez Neuro-Oncology [facility] STAFF: STAFF PHYSICIAN NOTE OF PERSONAL INVOLVEMENT IN CARE I have reviewed the progress note obtained and documented by Dr Tre Beasley MD, Neuro-Oncology Fellow and I personally participated in the mckeon components. I have discussed the case and management of the patient's care with the Neuro-Oncology Fellow. The following comments revise or confirm relevant mckeon components of the Fellow's note. I am seeing the patient in collaboration with Esme Cook RN [facility] Banking Supervisor IMPRESSION/PLAN: Patient with progressive GBM, completed CCNU and now on Edwin. Continue EDWIN every 2 weeks. MRI brain in 2 months time Clinic visit in 4 and after MRI in 8 weeks time. In the end the patient and family verbalized understanding of the above, they had questions which I believe I answered to their satisfaction and agreed with these recommendations and had no further questions or concerns for the moment, but I encourage them to call the [facility] with any questions or concerns. I spent a total of 40 minutes on the date of the service which included preparing to see the patient, at least 50% of qfiv-[id number] patient care, completing clinical documentation, obtaining and/or reviewing separately obtained history, performing a medically appropriate examination, counseling and educating the patient/family/caregiver, ordering medications, tests, or procedures, communicating with other HCPs (not separately reported), independently interpreting results (not separately reported), communicating results to the patient/family/caregiver and care coordination (not separately reported). High MDM. Patricia Enriquez MD [facility] Patient Care Team: -Jose Evans MD, Neurosurgery, [facility], [facility], [facility] Cyndee Joyce MD, PhD, Radiation Oncology, [facility], [facility], [facility]. Jaclyn Guillory LSW as Pull Worker (Hematology/Oncology) Soraida Simmons RN (Hospice AND Palliative Medicine) Willy Lion MD (Hospice AND Palliative Medicine) Rupa Khoury APRN.[facility]SON (Hospice AND Palliative Medicine) Daniel Juárez PSYD, Psychology, [facility] COMP METAB 2000 PNL SERPL Collected: 3:55 PM Status: F Source: [facility] Order Comment: Specimen Type : BLOOD SPECIMEN Ordering Facility: [facility] Address: [address] [place] [address] TYPE CODE TESTS RESULT OUT OF RANGE REFERENCE UNITS LAB 2885-2(LOINC) Prot SerPl-mCnc 6.3 6.3-8.0 g/dL LAB 1751-7(LOINC) Albumin SerPl-mCnc 3.5 Low 3.9-4.9 g/dL LAB 12193-1(LOINC) Calcium SerPl-mCnc 8.5 8.5-10.2 mg/dL LAB 1975-2(LOINC) Bilirub SerPl-mCnc 0.5 0.2-1.3 mg/dL LAB 6768-6(LOINC) ALP SerPl-cCnc 94 38-113 U/L LAB 1920-8(LOINC) AST SerPl-cCnc 30 14-40 U/L LAB 1742-6(LOINC) ALT SerPl-cCnc 57 High 10-54 U/L LAB 2345-7(LOINC) Glucose SerPl-mCnc 150 High 74-99 mg/dL Result Comment: The [place] Diabetes [employer] (ADA) provides guidance for cutoff values for fasting glucose and random glucose. The ADA defines fasting as no caloric intake for at least 8 hours. Fasting plasma glucose results between 100 to 125 mg/dL indicate increased risk for diabetes (prediabetes). Fasting plasma glucose results greater than or equal to 126 mg/dL meet the criteria for diagnosis of diabetes. In the absence of unequivocal hyperglycemia, results should be confirmed by repeat testing. In a patient with classic symptoms of hyperglycemia or hyperglycemic crisis, random plasma glucose results greater than or equal to 200 mg/dL meet the criteria for diagnosis of diabetes. Reference: Standards of Medical Care in Diabetes 2016, [place] [employer]. Diabetes Care. 2016.39(Suppl 1). LAB 3094-0(LOINC) BUN SerPl-mCnc 27 High 9-24 mg/dL LAB 2160-0(LOINC) Creat SerPl-mCnc 1.04 0.73-1.22 mg/dL LAB 2951-2(LOINC) Sodium SerPl-sCnc 137 136-144 mmol/L LAB 2823-3(LOINC) Potassium SerPl-sCnc 4.4 3.7-5.1 mmol/L LAB 2075-0(LOINC) Chloride SerPl-sCnc 104 98-107 mmol/L LAB 2028-9(LOINC) CO2 SerPl-sCnc 21 Low 22-30 mmol/L LAB 07870-9(LOINC) Anion Gap SerPl-sCnc 12 8-15 mmol/L LAB 77521-0(LOINC) eGFRcr SerPlBld CKD-EPI 2020 84 >=60 mL/min/1. 73m??? Result Comment: Estimated Gl omerular Filtration Rate (eGFR) is calculated using the 2020 CKD-EPI creatinine equation. This equation utilizes serum creatinine, sex, and age as parameters. The creatinine assay has traceable calibration to isotope dilution-mass spectrometry. Refer to KDIGO guidelines for clinical interpretation. In patients with unstable renal function, e.g. those with acute kidney injury, the eGFR may not accurately reflect actual GFR. Performed By: #### [id number] # ### [facility] CLIA [id number] [address] [place] [address] STATES OF [facility] CBC W AUTO DIFF BLD Collected: 04/20/2025 3:[address] atus: F Source: [facility] Order Comment: Specimen Type : BLOOD SPECIMEN Ordering Facility: [facility] Address: [address] [place] [address] TYPE CODE TESTS RESULT OUT OF RANGE REFERENCE UNITS LAB 6690-2(LOINC) WBC # Bld Auto 5.75 3.70-11.00 k/uL LAB 789-8(LOINC) RBC # Bld Auto 3.94 Low 4.20-6.00 m/ uL LAB 718-7(LOINC) Hgb Bld-mCnc 13.7 13.0-17.0 g/dL LAB 4544-3(LOINC) Hct VFr Bld Auto 39.5 39.0-51.0 % LAB 787-2(LOINC) MCV RBC Auto 100.3 High 80.0-100.0 fL LAB 785-6(LOINC) MCH RBC Qn Auto 34.8 High 26.0-34.0 p g LAB 786-4(LOINC) MCHC RBC Auto-mCnc 34.7 30.5-36.0 g/dL LAB 58988-8(LOINC) RDW RBC-Rto 16.3 High 11.5-15.0 % LAB 777-3(LOINC) Platelet # Bld Auto 40 Low 150-400 k/uL Result Comment: Results chec ked and verified.No clot detected. LAB 68469-4(LOINC) PMV Bld Auto 11.1 9.0-12.7 fL LAB 770-8(LOINC) Neutrophils/leuk NFr Bld Auto 89.7 % LAB 751-8(LOINC) Neutrophils # Bld Auto 5.16 1.45-7.50 k/uL LAB 736-9(LOINC) Lymphocytes/leuk NFr Bld Auto 5.2 % LAB 731-0(LOINC) Lymphocytes # Bld Auto 0.30 Low 1.00-4.00 k/uL LAB 5905-5(LOINC) Monocytes/leuk NFr Bld Auto 4.2 % LAB 742-7(LOINC) Monocytes # Bld Auto 0.24 <0.87 k/uL LAB 713-8(LOINC) Eosinophil/leuk NFr Bld Auto 0.0 % LAB 711-2(LOINC) Eosinophil # Bld Auto <0.03 <0.46 k/uL LAB 706-2(LOINC) Basophils/leuk NFr Bld Auto 0.0 % LAB 704-7(LOINC) Basophils # Bld Auto <0.03 <0.11 k/uL LAB 17836-0(LOINC) Imm Granulocytes/christina k NFr Bld Auto 0.9 % LAB 87289-9(LOINC) Imm Granulocytes # Bld Auto 0.05 <0.10 k/uL LAB 79531-1(LOINC) nRBC/100 WBC Bld-Rto 0.0 /100 WBC LAB 771-6(LOINC) nRBC # Bld Auto <0.01 <0.01 k/u L LAB 74278-5(LOINC) Differential method Bld Auto Performed By: #### [id number] # ### [facility] CLIA [id number] [address] [place] [address] OF [facility] PROGRESS Observed: 04/20/2025 3:00 PM Status: COMPLETED Source: [facility] HNO ID: [id number] Author: ESME COOK, RN Service: ? Author Type: Registered Nurse Type: Progress Notes Filed: 04/20/2025 23:47 Note Text: Glioblastoma follow up L temporal mass resection 03/19/2023- Not hypermethylated L temporal mass re-do resection 05/27/24 Stupp 04/20-05/29/23 Enrolled in [facility] 1319 until progression in February [address] Evans 09/23/24 Lomustine 90mg/m2 C#1 02/25-04/08/24 Lomustine 90mg/m2 C #2 09/05-10/17/24 Lomustine 90mg/m2 C#3 10/21-12/02/24 Lomustine 90mg/m2 C#4 12/11/24-01/22/25 Lomustine 90mg/m2 C#5 01/22/25-03/05/25 Lomustine 90mg/m2 C#6 03/09-04/20/25 N-Plate x 1 injection 10/18/23-PLT 76K N-Plate x 1 injection 04/14/25- PLT 60K -Started Avastin 10mg/kg x 14 days 04/05/25 -MRI 04/18/25 CNOV Observed: 04/20/2025 3:00 PM Status: COMPLETED Source: [facility] Office Visit (NSCAMN) ANGEL KEATING ([id number]) 1970 M T Date Time Provider Department 04/20/25 3:00 PM PATRICIA ENRIQUEZ NSCAMN During your visit today, we recorded the following information about you: Temperature Pulse Respiration Blood pressure 98.1 degrees 81/minute 18/minute 144/97 Weight 93.3 kg Jemima Chinchilla MA 04/20/2025 11:47 PM Signed Additional intake questions: Has the patient had fever, nausea, vomiting, diarrhea, constipation, fatigue for > 1 week? No Does the patient have a decreased appetite? No Does patient want to see a Outside Solar Sales Consultant? No (yes to any of above refer patient to schedulers for dietitian appointment) ) Does patient have any new or increased numbness or tingling of extremities? No Is patient interested in fertility information? No Does patient need any prescription refills? No Does patient have an advanced directive in place? Yes, copies are in Epic Electronically Signed By: SALEEM Sainz Sara, RN 04/20/2025 11:47 PM Signed Glioblastoma follow up L temporal mass resection 03/19/2023- Not hypermethylated L temporal mass re-do resection 05/27/24 Stupp 04/20-05/29/23 Enrolled in [facility] 1319 until progression in February [address] Evans 09/23/24 Lomustine 90mg/m2 C#1 02/25-04/08/24 Lomustine 90mg/m2 C #2 09/05-10/17/24 Lomustine 90mg/m2 C#3 10/21-12/02/24 Lomustine 90mg/m2 C#4 12/11/24-01/22/25 Lomustine 90mg/m2 C#5 01/22/25-03/05/25 Lomustine 90mg/m2 C#6 03/09-04/20/25 N-Plate x 1 injection 10/18/23-PLT 76K N-Plate x 1 injection 04/14/25- PLT 60K -Started Avastin 10mg/kg x 14 days 04/05/25 -MRI 04/18/25 Patricia Enriquez MD 04/20/2025 11:47 PM Signed Neurological [facility] NEURO-ONCOLOGY CLINIC VISIT NOTE [facility] Team: -Jose Evans MD, Neurosurgery -SAV Rodriguez, Radiation Oncology -Patricia Enriquez MD, Neuro-Oncology DIAGNOSIS: MGMT unmethylated Glioblastoma. 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 He initially presented with anxiety-attack like episodes going back to January 2023 as well as a fall, without loss of consciousness but +trauma to head around 02/27/2023. On 03/16/2023, he presented to [facility] ED with word finding difficulty, report of one-time fever of 101 in February, anxiety, increased thirst and urination and was found to have a L temporal mass with midline subfalcine shift concerning for high grade glioma. He was afebrile with normal glucose level and electrolytes. He underwent gross total resection by Dr. Evans on 03/19/2023, revealing an MGMT unmethylated glioblastoma, WHO Grade 4. He was discharged on keppra 750mg BID and dexamethasone taper. He established care with Dr. Enriquez and given paroxysmal episodes of anxiety, he was concerned about temporal lobe epilepsy and advised lifelong AED to reduce seizure risk. The patient was exhibiting some fatigue and dullness, so a cross taper from keppra to vimpat, with goal of vimpat 150mg BID. The patient expressed interest in clinical trials and enrolled onto [facility]. He was randomized to the AE0097 arm (cyclic peptide modulating tumor microenvironment). TREATMENT HISTORY Gross total resection [03/19/2023] [facility] Dr. Evans MGMT unmethylated Glioblastoma. L temporal [facility], randomized to [id number] IV twice weekly arm + Standard concurrent chemotherapy and radiation (04/20- 05/29/2023) [facility] Dr. Joyce and Dr. Enriqeuz Adjuvant temozolomide PO D1-5 q 28 days C1 07/01/23, will start 07/03 150mg/m2 C2 07/27/23 C3 08/31/23 C4 09/21/23 C5 10/26/23 C6 11/23/23 C7 12/28/23 STOP ADJ TMZ as the clinical; trial calls for up to 6 cycles. For some reason the patient had an extra cycle of Adj TMZ. Adjuvant [id number] during Maintenance: Cycle 7 Week 1 - infusions on 12/14/2023 (D1) and 12/17/2023 (D4) Cycle 7 Week 2 - infusions on 12/21/2023 (D8) and 12/24/2023 (D11) Cycle 7 Week 3 - infusions on 12/28/2023 (D15) and 12/31/2023 (D18) Cycle 7 Week 4 - infusions on 01/05/2024 (D22) and 01/08/2024 (D25) Cycle 8 Week 5 - infusions on 01/11/2024 and 01/14/2024 02/08/2024: MRI shows progression 02/08/[address] [address] Evans for possible surgery. If surgery offered, he can be enrolled in CASE 3322 clinical trial with methimazole + chemo. 02/18/24: Dr Evans recommended NO surgery. 02/26/24 Lomustine 90mg/m2 C#1 02/25-04/08/24 04/12/24 Tumor progression, increased CBV 04/14/[address] Evans for possible surgery. The patient is also eligible, for CASE 3322 clinical trial with methimazole + chemo. 04/28/2024 Jose Evans MD since the patient, and recommended surgery. 04/28/2024 clinical trials team, saw the patient, the patient is eligible, for for CASE 3322 clinical trial with methimazole + chemo. Patient signed consent. Treatment plan: Pre-operative treatment Phase -Methimazole - Pre-Op period: 05/24/2024 to 05/27/2024 (last dose is DAY of surgery) -Dose level 2 (25 mg daily) Surgical resection 05/27/[address] 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 C1D1 (10-28 days after surgery) -Scheduled for 06/16/2024 (20 days post op) -Methimazole - Post-Op period: 05/27/2024- TBD -Dose level 2 (25 mg judy C1D1 lomustine 110 mg/m2 - 07/28/24 - NOTE DATE ENTERED IN ERROR - PATIENT DID NOT TAKE CHEMO ON 08/07/2024 C2D1 lomustine -- planned for 09/07/24 08/22/2024 Brain MR - new enhancing nodules. 08/29/2024 BTB recommend to continue on lomustine, and SRS to enhancing nodules, which was completed. CORRECTED DATES OF CHEMO: C1D1 JUN 28, 2024 09/05/2024 NOTE: RE; DISCREPANCY ON LOMUSTINE CYCLE. The patient recalled that he had taken Lomustine cycle No 1 [after 2nd surgery (05/27/2024)] on ~mid June 2024 and that he was due for cycle No 2 for early August 2024 We reviewed the pharmacy records and indeed the patient took cycle No 1 of Lomustine on 06/28/25, and he was due for next cycle on ~Aug 12, 2024. Pharmacy note confirm that lomustine was delivered. Although per patient knowledge that he needed to start his chemo, cycle No 2 of lomustine on 1st week of Aug 2024 - however he did not started as he was instructed that the chemo was to start not until Sep 07, 2024. Hence the patient had not started his chemo. 09/05/2024: The patient brought lomustine capsules, cycle No 2, as he noted - issued on 08/05/2024 - which should have started on Aug 12, 2024. The reason for the discrepancy - likely entry data error of when he took cycle No 1 of lomustine - erroneously was entered as 07/28/2025. Lomustine 90mg/m2 C#2 09/05-10/17/24 September 19, 2024 - September 23, 2024 Dr Joyce SRS-GK: AREA TREATED: 1) Lt Temp 2) LT Ant Falx 3) Lt Sup Front 4) Lt Tent 5) Lt Temp 10/12/2024 MRI BRAIN WO/W Foci of nodular enhancement along the left temporal resection cavity are similar compared to 09/19/2024 (increased compared to 08/22/2024). Increased nonenhancing T2/FLAIR hyperintensity within the left temporal lobe compared to 08/22/2024. Lomustine 90mg/m2 C#3 10/21-12/02/24 11/16/2024 Brain MR. 1- CONTINUED GROWTH OF 2 NODULAR FOCI AT THE DEPTH OF LEFT TEMPORAL RESECTION CAVITY, DETAILED. THE LARGER SHOWS MODERATELY INCREASED CBV, SUSPICIOUS FOR PROGRESSION. 2. STABLE EXTRA-AXIAL ENHANCING LESION OVER LEFT MEDIAL FRONTAL LOBE, WITH REDUCED SIZE OF MORE LATERAL EXTRA-AXIAL LESION 3. REDUCED LEFT FRONTAL EPIDURAL HEMATOMA 4. NO NEW ACUTE PROCESS OR SUSPICIOUS ENHANCEMENT NOTE: Had MRI sooner than scheduled (11/30/2024), as the MR center called him asking if he wanted to have his MR sooner, as someone had canceled. Lomustine 90mg/m2 C#4 12/11/24-01/22/25 01/17/2025 Brain MR Evolving post therapy changes with progressive nodular enhancement and T2 signal abnormality in the medial left temporal lobe and insula, suspicious for progressive malignancy. 01/17/2025 Clinic visit: MRI changes probably treatment effect, recommend continue current treatment, lomustine. Lomustine 90mg/m2 C#5 01/22/25-03/05/25 01/24/2025: I reviewed the patients case/images with his oncology team, including Indu Blanchard his Radiation Oncologist, and with Dr. Evans, his neurosurgeon, and they agree with the approach to continue on the current management, that is lomustine,a and continue imaging surveillance. No need for any additional intervention at this juncture. Patricia Enriquez MD 02/28/2025 Brain MR Interval in size of nodular enhancement along the medial aspect of the resection cavity and significant interval increase in confluent T2/FLAIR hyperintensity. No elevated cerebral blood volume on the perfusion sequence to suggest neovascularity. Recommend short-term interval follow-up to exclude progressive disease. 03/02/2025 Clinic visit: MRI changes probably treatment effect, recommend continue current treatment, lomustine. Lomustine 90mg/m2 C#6/03/09-04/20/25 03/24/2025 - 03/31/2025 Admission (7 days) [facility]; Admitted due to progressive right sided arm/leg weakness, and aphasia, mainly word finding difficulty. Improved on steroids. - 03/25/2025 Brain MR and increasing enhancing small lesions adjacent to the left half of the falx compatible with progressive disease. Interval increase in size of the enhancement in the left mesial temporal lobe and left intralenticular region with increased vasogenic edema. However no elevated CBV associated with this area. No evidence of leptomeningeal disease. -Seen by Dr. Evans, patient's neurosurgeon, recommended no surgery -Rad Onc also saw patient, recommend no radiation 03/27/2025 Brain Tumor Board: changes seen on MR 03/25/2025 favor treatment effect (tumor cannot be excluded with certainty). Agreed with bevacizumab (edwin), and to continue lomustine. Note: patient pricila completed 6/6 cycle of Lomustine (CCNU), 03/09-04/20/25 04/05/2025 1st infusion. bevacizumab (edwin) 10 mg/Kg every 2 weeks. April 05, 2025 HPI In person visit The patient is accompanied by mother. The patient says, that he is doing better, he is ambulating, and going up stairs using a cane, and a walker.has no known allergies. Trouble with word finding is still there but improving. He feels that his comprehension is okay. However he needs to think more to say what he wants to say. Denies fevers, headaches, nausea or vomiting He expresses a desire to remain functional for his daughter's wedding which is for the month of April 2025. Past Diagnostic Results: - (01/17/2025) MRI: Evolving post-therapy changes with progressive nodular enhancement and T2 signal; suspicious for progressive malignancy. - (11/2024) MRI: Comparison for January 2025 MRI. 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 He reports increased fatigue and weakness, since starting bevacizumab. He experiences a decline in energy and strength for 48-60 hours after each treatment, followed by partial recovery, but never to his previous baseline. He notes worsening balance and overall weakness, impacting his daily activities. He denies recent seizures. Despite these symptoms, he remains somewhat active, managing his daily routine independently, including preparing meals and walking for about 10 minutes daily. He expresses a desire to improve his energy levels to attend his daughter's wedding in nine days. He is currently tapering dexamethasone, with plans to discontinue it in three days. CHEMO: see above Steroids: currently tapering dexamethasone, with plans to discontinue it in three days. 03/31/2025 open discharged from the hospital Antiseizure medications: lacosamide 150 mg Tab Commonly known as: VIMPAT Take 1 tablet by mouth two times a day for 180 days. PHYSICAL EXAMINATION: - Neurological: - CNII: Visual land intact. - CNIII/CNIV/CNVI: Extraocular movements intact. - CNV: Sensation intact. - CNVII: Facial movements intact. - CNIX/CNX: Palate elevation intact. - CNXI: Shoulder shrug strength intact. - Motor: No atrophy or asymmetry noted. - Strength: - Arms: - Deltoids: Left: 5/5, Right: 5-/5 - Biceps: Left: 5/5, Right: 5-/5 - Triceps: Left: 5/5, Right: 5-/5 - Lower Extremities: - Hip Flexors: Left: 5/5, Right: 5-/5 - Hip Extensors: Left: 5/5, Right: 5-/5 - Knee Flexion: Left: 5/5, Right: 5-/5 - Knee Extension: Left: 5/5, Right: 5-/5 - Ankle Dorsiflexion: Left: 5/5, Right: 5-/5 - Ankle Plantarflexion: Left: 5/5, Right: 5-/5 - Reflexes: - Arms: - Triceps: Left: 2+, Right: 2+ - Biceps: Left: 2+, Right: 2+ - Brachioradialis: Left: 2+, Right: 2+ - Lower Extremities: - Patella: Left: 2+, Right: 2+ - Achilles: Left: 2+, Right: 2+ - Sensation: Intact to light touch and pinprick. - Coordination: Islcdo-gl-mzht and plhq-mm-anru testing intact. - Gait: somewhat slow Imaging: MRI Report MRI BRAIN WO/W IVCON Exam End: 04/18/2025 1:28 PM (Final result) Narrative: * * *Final Report* * * DATE OF EXAM: Apr 18 2025 1:28PM [facility] [id number] - MRI BRAIN WO/W IVCON / PROCEDURE REASON: GBM (glioblastoma multiforme) (HCC) * * * * Physician Interpretation * * * * EXAMINATION: MRI BRAIN WO/W IVCON CLINICAL HISTORY: Glioblastoma. Status post resection and chemoradiation treatment with subsequent recurrence requiring a second resection with chemotherapy and gamma knife radiosurgery. TECHNIQUE: Routine brain MRI protocol without and with contrast including diffusion and perfusion images. MQ: [id number] Contrast: 18 mL Dotarem IV COMPARISON: MRI brain 02/28/2025. RESULT: Acute Change: Faint diffusion abnormality present within the LEFT basal ganglia is felt to be artifactual/reflecting T2 shine through. Hemorrhage: Redemonstrated susceptibility artifact of the left middle cranial fossa resection site consistent with blood byproducts. Posttreatment/Mass Lesion/ Mass Effect: Redemonstrated postoperative changes status post left temporal craniotomy. Evolving collection in the resection cavity with susceptibility artifact along the margins, suggestive of blood products. Slight decrease in size to the overlying left extra-axial/extracranial subgaleal fluid collection with interval resolution to the multiple fluid-fluid levels. Slight interval decrease in size of the residual enhancing lesion at the medial aspect of the resection cavity, now with less extension superiorly into the medial insular cortex/basal ganglia. This measures approximately 2.7 x 2.2 x 2.0 cm in greatest transaxial dimensions (14:48, 13:19) previously 2.7 x 2.2 x 1.8 cm when measured similarly. Interval decrease in size/extent of the surrounding T2/FLAIR signal, with less involvement of the left periventricular and temporal lobes. Similar foci of enhancement along the anterior falx in the superior left frontal lobe measuring up to 1.3 cm (14:93) and 1.5 cm (14:97). No new abnormal parenchymal or leptomeningeal enhancement is noted following contrast administration. No significant mass effect. Perfusion: No distinct perfusion abnormality. Chronic Change: Scattered punctate foci of increased T2 and FLAIR signal are noted in the supratentorial white matter which is a nonspecific finding, but likely represents minimal chronic microvascular ischemia. Parenchyma: There is mild generalized parenchymal volume loss. Ventricles: Ventriculomegaly corresponds to the degree of parenchymal volume loss. Skull Base: Hypothalamic and pituitary region are grossly normal. Craniocervical junction is normal. No significant marrow replacement process. Vasculature: Major intracranial arterial structures, and dural venous sinuses show typical flow void, suggesting patency by spin echo criteria. Other: Mild paranasal sinus mucosal thickening. The mastoid air cells are clear. The orbits and extracranial soft tissues are unremarkable. Impression: IMPRESSION: Compared to 02/28/2025, minimally decreased size of the enhancing mesial left temporal lobe lesion with significantly improved surrounding T2/FLAIR signal abnormality. No perfusion abnormality. Stable size of small enhancing lesions along the left falx. No new abnormal parenchymal or leptomeningeal enhancement. Call Worker Person: [facility] Transcribe Date/Time: Apr 18 2025 1:58P Dictated by : BASILIA GODOMAN MD This examination was interpreted and the report reviewed and electronically signed by: ANDREA NICHOLSON MD on Apr 18 2025 3:03PM EST MR From Left to Right: 03/25/2025; 04/18/2025 MR From Left to Right: 03/25/2025; 04/18/2025 I reviewed the MRI's with the patient/family. Assessment AND Plan 1. Glioblastoma (HCC) (C71.9) 1A. Encounter for antineoplastic chemotherapy (Z51.11) - The patient completed lomustine 90mg/m2 C#6/6 from 03/09-04/20/25 - Completed 6/6 cycles of Lomustine, in light, that the MRI changes, and likely treatment effect. Will proceed to treat the patient only with bevacizumab. - CBC, CMP, urine analysis - Bevacizumab, 10 mg/kg, every 2 weeks. - The patient will need to have, repeat CBC, CMP, and also protein in urine, this test, will be done on every infusion. -1st infusion 04/05/2025. - 2nd infusion 04/19/2025 - Radiologic benefit seen on 04/18/2025 brain MRI -MRI brain w and w/o dated 04/18/2025: Significantly improved surrounding T2/FLAIR signal abnormality - Brain MRI w/wo IVCON and perfusion studies in 2 months - Return for clinic visit in person in 4 weeks time - Return for clinic visit in person in 8 weeks time, after MRI. 3. Seizures (HCC) (R56.9) 4. Seizure disorder (HCC) (G40.909) - Seizures well-controlled on lacosamide 150 mg BID; no recent seizure activity reported. - Continue current anticonvulsant therapy. 5. Psoriasis (L40.9) - Chronic scaly, flaky rashes reported on scalp, chest, arms, and legs. - Advised patient to document and upload photos of rashes to [employer] for further evaluation. 6. Fatigue (R53.81) - Start modafinil 100 mg daily to address fatigue; discussed that dose may be increased to 200 mg if needed. - Discussed potential for adrenal insufficiency following dexamethasone discontinuation; instructed patient to report any concerning symptoms Tre Beasley MD Neuro-Oncology Fellow Supervising Neuro-Oncology Staff: Dr. Enriquez Neuro-Oncology [facility] STAFF: STAFF PHYSICIAN NOTE OF PERSONAL INVOLVEMENT IN CARE I have reviewed the progress note obtained and documented by Dr Tre Beasley MD, Neuro-Oncology Fellow and I personally participated in the mckeon components. I have discussed the case and management of the patient's care with the Neuro-Oncology Fellow. The following comments revise or confirm relevant mckeon components of the Fellow's note. I am seeing the patient in collaboration with Esme Cook RN [facility] Banking Supervisor IMPRESSION/PLAN: Patient with progressive GBM, completed CCNU and now on Edwin. Continue EDWIN every 2 weeks. MRI brain in 2 months time Clinic visit in 4 and after MRI in 8 weeks time. In the end the patient and family verbalized understanding of the above, they had questions which I believe I answered to their satisfaction and agreed with these recommendations and had no further questions or concerns for the moment, but I encourage them to call the [facility] with any questions or concerns. I spent a total of 40 minutes on the date of the service which included preparing to see the patient, at least 50% of [id number]-cpcv patient care, completing clinical documentation, obtaining and/or reviewing separately obtained history, performing a medically appropriate examination, counseling and educating the patient/family/caregiver, ordering medications, tests, or procedures, communicating with other HCPs (not separately reported), independently interpreting results (not separately reported), communicating results to the patient/family/caregiver and care coordination (not separately reported). High MDM. Patricia Enriquez MD [facility] Patient Care Team: -Jose Evans MD, Neurosurgery, [facility], [facility] Cyndee Joyce MD, PhD, Radiation Oncology, [facility], [facility]. Jaclyn Guillory LSW as Pull Worker (Hematology/Oncology) Soraida Simmons RN (Hospice AND Palliative Medicine) Willy Lion MD (Hospice AND Palliative Medicine) Rupa Khoury APRN.EDSON (Hospice AND Palliative Medicine) Daniel Juárez PSYD, Psychology, [facility] Patricia Enriquez MD 04/20/2025 11:43 PM Signed We discussed your current treatment and symptoms: - You recently completed six cycles of Lomustine (oral chemotherapy) and have transitioned to Avastin (infusion therapy). Your second infusion was yesterday. While Avastin has caused fatigue and some weakness, particularly on your right side, your recent MRI shows significant improvement in brain swelling compared to prior imaging. This indicates that Avastin is working as intended to reduce swelling caused by leaky blood vessels after radiation and chemotherapy. - You are currently tapering off dexamethasone (steroid). Tonight, you will reduce to 1 mg twice daily, and in three days, you will stop it completely. If you experience symptoms such as fatigue, dizziness, or feeling unwell after stopping the steroid, please contact our office immediately, as this could indicate adrenal insufficiency. - You reported a rash on your neck and face, which is likely related to steroid use. Please monitor the rash, and let us know if it worsens or does not improve after stopping the steroids. - You have been experiencing fatigue and reduced energy levels, which impact your daily activities. To help with this, we are starting you on modafinil (Provigil) at 100 mg daily. This medication is intended to improve wakefulness and energy levels. If needed, the dose can be increased to 200 mg daily. Take this medication in the morning. Let us know if it helps or if you experience any side effects. We discussed your medications: - Continue taking lacosamide (anti-seizure medication) as prescribed, 1 pill twice daily. You have not had any recent seizures, and this medication appears to be effective. - Continue taking valacyclovir (Valtrex) daily for shingles prevention. Your previous shingles episodes have resolved. - Continue taking atovaquone (antibiotic) as prescribed for PCP prophylaxis. - You are completing your course of lisinopril in a few days. No further action is needed unless otherwise directed. We discussed your activity and goals: - You are somewhat active, walking around the house for 10-15 minutes daily and engaging in light activities. You mentioned that your energy levels fluctuate after treatments, but you are motivated to maintain your strength for your daughter?s wedding in 9 days. We will continue to support you in achieving this goal. We discussed follow-up and testing: - Please have your blood drawn today on the first floor of the lab for routine monitoring. - Continue monthly MRIs to monitor your progress. Your next MRI will be scheduled as planned. - If you experience any new or worsening symptoms, such as significant fatigue, weakness, or balance issues, please contact our office. Thank you for your commitment to your care plan. We are here to support you every step of the way. Patricia Enriquez MD 04/28/2025 1:39 PM Signed Addended by: PATRICIA ENRIQUEZ on: 04/28/2025 01:39 PM Modules accepted: Orders Referring Provider: PATRICIA ENRIQUEZ [[id number]] Allergies As of Date: 04/20/2025 (No Known Allergies) Date Reviewed: 04/20/2025 Reviewed by: Jemima Chinchilla MA - Fully Assessed Reason for Visit: Established Patient [175] Primary Visit Diagnosis:Glioblastoma (HCC) [C71.9] Other Visit Diagnosis:Malaise and fatigue [R53.81, R53.83] Order(s):modafinil (PROVIGIL) 100 mg tabletTake 1 tablet in the morning. If needed take another tablet at 2 pmDisp: 60 tabletRfl: 2 Prescriptions as of 04/28/2025 - modafinil (PROVIGIL) 100 mg tablet Take 1 tablet in the morning. If needed take another tablet at 2 pm - dexAMETHasone (DECADRON) 2 mg tablet decrease to 10 mg daily starting on 04/06 - [facility] - atovaquone (MEPRON) 750 mg/5 mL oral liquid Take 10 mL by mouth daily with breakfast. - dexAMETHasone (DECADRON) 6 mg tablet Take 1 tablet by mouth two times a day with meals. - lacosamide (VIMPAT) 150 mg tab Take 1 tablet by mouth two times a day for 180 days. - valACYclovir (VALTREX) 500 mg tablet Take 1 tablet by mouth once daily. - traZODone (DESYREL) 50 mg tablet TAKE 1 TABLET BY MOUTH EVERYDAY AT BEDTIME - pantoprazole DR (PROTONIX) 40 mg tablet Take 1 tablet by mouth once daily. - ondansetron (ZOFRAN) 8 mg tablet Take one tablet by mouth on an empty stomach in the evening one hour prior to chemo. Then take one tablet 24 hours after chemo. May repeat dose every 8-12 hours if needed to prevent nausea - midazolam (NAYZILAM) 5 mg/spray (0.1 mL) nasal spray Use 1 [place] in the nose as needed for up to 10 days. May repeat dose in alternate nostril after 10 minutes based on response and tolerability. - acetaminophen (TYLENOL) 325 mg tablet 2 tablets by ORAL/FEEDING TUBE route every 4 hours as needed for pain. Problem List As Of Date 04/20/2025 Noted Resolved Chest pain [R07.9] 04/25/2010 05/26/2024 Brain mass [G93.89] 03/17/2023 11/17/2023 Obesity, Class I, BMI 30-34.9 [E66.811] 03/17/2023 Brain compression (HCC) [G93.5] 03/20/2023 S/P brain surgery [Z98.890] 03/20/2023 11/17/2023 At risk for seizures [Z91.89] 03/20/2023 Cerebral edema (HCC) [G93.6] 03/20/2023 GBM (glioblastoma multiforme) (HCC) [C71.9] 04/07/2023 Syncope, unspecified syncope type [R55] 11/01/2023 11/03/2023 Examination of participant in clinical trial [Z*11/05/2023 11/17/2023 Forehead pain [R51.9] 11/05/2023 PONV (postoperative nausea and vomiting) [R11.2*05/26/2024 Acute post-operative pain [G89.18] 05/29/2024 Thrombocytopenia [D69.6] 10/13/2024 Vasogenic edema (HCC) [G93.6] 03/24/2025 Malnutrition of mild degree (HCC) [E44.1] 03/24/2025 Glioblastoma (HCC) [C71.9] 03/28/2025 Other instructions from your clinician: We discussed your current treatment and symptoms: - You recently completed six cycles of Lomustine (oral chemotherapy) and have transitioned to Avastin (infusion therapy). Your second infusion was yesterday. While Avastin has caused fatigue and some weakness, particularly on your right side, your recent MRI shows significant improvement in brain swelling compared to prior imaging. This indicates that Avastin is working as intended to reduce swelling caused by leaky blood vessels after radiation and chemotherapy. - You are currently tapering off dexamethasone (steroid). Tonight, you will reduce to 1 mg twice daily, and in three days, you will stop it completely. If you experience symptoms such as fatigue, dizziness, or feeling unwell after stopping the steroid, please contact our office immediately, as this could indicate adrenal insufficiency. - You reported a rash on your neck and face, which is likely related to steroid use. Please monitor the rash, and let us know if it worsens or does not improve after stopping the steroids. - You have been experiencing fatigue and reduced energy levels, which impact your daily activities. To help with this, we are starting you on modafinil (Provigil) at 100 mg daily. This medication is intended to improve wakefulness and energy levels. If needed, the dose can be increased to 200 mg daily. Take this medication in the morning. Let us know if it helps or if you experience any side effects. We discussed your medications: - Continue taking lacosamide (anti-seizure medication) as prescribed, 1 pill twice daily. You have not had any recent seizures, and this medication appears to be effective. - Continue taking valacyclovir (Valtrex) daily for shingles prevention. Your previous shingles episodes have resolved. - Continue taking atovaquone (antibiotic) as prescribed for PCP prophylaxis. - You are completing your course of lisinopril in a few days. No further action is needed unless otherwise directed. We discussed your activity and goals: - You are somewhat active, walking around the house for 10-15 minutes daily and engaging in light activities. You mentioned that your energy levels fluctuate after treatments, but you are motivated to maintain your strength for your daughter?s wedding in 9 days. We will continue to support you in achieving this goal. We discussed follow-up and testing: - Please have your blood drawn today on the first floor of the lab for routine monitoring. - Continue monthly MRIs to monitor your progress. Your next MRI will be scheduled as planned. - If you experience any new or worsening symptoms, such as significant fatigue, weakness, or balance issues, please contact our office. Thank you for your commitment to your care plan. We are here to support you every step of the way. Prescriptions ordered this encounter Disp Refills Start End MODAFINIL 100 MG TABLET 60 t* 2 04/20/2025 05/20/2025 Sig: Take 1 tablet in the morning. If needed take another tablet at 2 pm Encounter Status:Closed by PATRICIA ENRIQUEZ on 04/20/25 PROGRESS Observed: 04/20/2025 2:39 PM Status: COMPLETED Source: [facility] HNO ID: [id number] Author: JEMIMA CHINCHILLA MA Service: ? Author Type: Camp Housekeeper Type: Progress Notes Filed: 04/20/2025 23:47 Note Text: Additional intake questions: Has the patient had fever, nausea, vomiting, diarrhea, constipation, fatigue for > 1 week? No Does the patient have a decreased appetite? No Does patient want to see a Outside Solar Sales Consultant? No (yes to any of above refer patient to schedulers for dietitian appointment) ) Does patient have any new or increased numbness or tingling of extremities? No Is patient interested in fertility information? No Does patient need any prescription refills? No Does patient have an advanced directive in place? Yes, copies are in Epic Electronically Signed By: Jemima Chinchilla MA CNPN Observed: 04/20/2025 12:00 AM Status: COMPLETED Source: [facility] Telephone (NSCAMN) ANGEL KEATING ([id number]) 1970 [facility] Date Time Provider Department 04/20/25 PATRICIA ENRIQUEZ NSCAMN During your visit today, we recorded the following information about you: Esme Cook RN 04/20/2025 4:56 PM Signed Called patient and informed him that his platelets are 40 and that he needs to re check tomorrow. He will go mid morning. Allergies As of Date: 04/20/2025 (No Known Allergies) Date Reviewed: 04/20/2025 Reviewed by: Jemima Chinchilla MA - Fully Assessed Reason for Visit: Patient Update [1234] Prescriptions as of 04/20/2025 - dexAMETHasone (DECADRON) 2 mg tablet decrease to 10 mg daily starting on 04/06 - [employer] kit Outpatient physical therapy - atovaquone (MEPRON) 750 mg/5 mL oral liquid Take 10 mL by mouth daily with breakfast. - dexAMETHasone (DECADRON) 6 mg tablet Take 1 tablet by mouth two times a day with meals. - lacosamide (VIMPAT) 150 mg tab Take 1 tablet by mouth two times a day for 180 days. - valACYclovir (VALTREX) 500 mg tablet Take 1 tablet by mouth once daily. - traZODone (DESYREL) 50 mg tablet TAKE 1 TABLET BY MOUTH EVERYDAY AT BEDTIME - pantoprazole DR (PROTONIX) 40 mg tablet Take 1 tablet by mouth once daily. - ondansetron (ZOFRAN) 8 mg tablet Take one tablet by mouth on an empty stomach in the evening one hour prior to chemo. Then take one tablet 24 hours after chemo. May repeat dose every 8-12 hours if needed to prevent nausea - midazolam (NAYZILAM) 5 mg/spray (0.1 mL) nasal spray Use 1 [place] in the nose as needed for up to 10 days. May repeat dose in alternate nostril after 10 minutes based on response and tolerability. - acetaminophen (TYLENOL) 325 mg tablet 2 tablets by ORAL/FEEDING TUBE route every 4 hours as needed for pain. Problem List As Of Date 04/20/2025 Noted Resolved Chest pain [R07.9] 04/25/2010 05/26/2024 Brain mass [G93.89] 03/17/2023 11/17/2023 Obesity, Class I, BMI 30-34.9 [E66.811] 03/17/2023 Brain compression (HCC) [G93.5] 03/20/2023 S/P brain surgery [Z98.890] 03/20/2023 11/17/2023 At risk for seizures [Z91.89] 03/20/2023 Cerebral edema (HCC) [G93.6] 03/20/2023 GBM (glioblastoma multiforme) (HCC) [C71.9] 04/07/2023 Syncope, unspecified syncope type [R55] 11/01/2023 11/03/2023 Examination of participant in clinical trial [Z*11/05/2023 11/17/2023 Forehead pain [R51.9] 11/05/2023 PONV (postoperative nausea and vomiting) [R11.2*05/26/2024 Acute post-operative pain [G89.18] 05/29/2024 Thrombocytopenia [D69.6] 10/13/2024 Vasogenic edema (HCC) [G93.6] 03/24/2025 Malnutrition of mild degree (HCC) [E44.1] 03/24/2025 Glioblastoma (HCC) [C71.9] 03/28/2025 Encounter Status:Closed by DLESME on 04/20/25 PROGRESS Observed: 04/19/2025 12:58 PM Status: COMPLETED Source: [facility] HNO ID: [id number] Author: TONA COBOS, RN Service: ? Author Type: Registered Nurse Type: Progress Notes Filed: 04/19/2025 12:59 Note Text: Avastin infusion #2 completed. No labs Patient has visit in am with Dr Fraire and will have labs drawn Tona Cobos, RN, BSN Banking Supervisor [facility] MRI BRAIN WO/W IVCON Observed: 1:28 PM Status: F Source: [facility] * * *Final Report* * * DATE OF EXAM: Apr 18 2025 1:28PM [facility] 0295 - MRI BRAIN WO/W IVCON / PROCEDURE REASON: GBM (glioblastoma multiforme) (HCC) * * * * Physician Interpretation * * * * EXAMINATION: MRI BRAIN WO/W IVCON CLINICAL HISTORY: Glioblastoma. Status post resection and chemoradiation treatment with subsequent recurrence requiring a second resection with chemotherapy and gamma knife radiosurgery. TECHNIQUE: Routine brain MRI protocol without and with contrast including diffusion and perfusion images. MQ: [id number] Contrast: 18 mL Dotarem IV COMPARISON: MRI brain 02/28/2025. RESULT: Acute Change: Faint diffusion abnormality present within the LEFT basal ganglia is felt to be artifactual/reflecting T2 shine through. Hemorrhage: Redemonstrated susceptibility artifact of the left middle cranial fossa resection site consistent with blood byproducts. Posttreatment/Mass Lesion/ Mass Effect: Redemonstrated postoperative changes status post left temporal craniotomy. Evolving collection in the resection cavity with susceptibility artifact along the margins, suggestive of blood products. Slight decrease in size to the overlying left extra-axial/extracranial subgaleal fluid collection with interval resolution to the multiple fluid-fluid levels. Slight interval decrease in size of the residual enhancing lesion at the medial aspect of the resection cavity, now with less extension superiorly into the medial insular cortex/basal ganglia. This measures approximately 2.7 x 2.2 x 2.0 cm in greatest transaxial dimensions (14:48, 13:19) previously 2.7 x 2.2 x 1.8 cm when measured similarly. Interval decrease in size/extent of the surrounding T2/FLAIR signal, with less involvement of the left periventricular and temporal lobes. Similar foci of enhancement along the anterior falx in the superior left frontal lobe measuring up to 1.3 cm (14:93) and 1.5 cm (14:97). No new abnormal parenchymal or leptomeningeal enhancement is noted following contrast administration. No significant mass effect. Perfusion: No distinct perfusion abnormality. Chronic Change: Scattered punctate foci of increased T2 and FLAIR signal are noted in the supratentorial white matter which is a nonspecific finding, but likely represents minimal chronic microvascular ischemia. Parenchyma: There is mild generalized parenchymal volume loss. Ventricles: Ventriculomegaly corresponds to the degree of parenchymal volume loss. Skull Base: Hypothalamic and pituitary region are grossly normal. Craniocervical junction is normal. No significant marrow replacement process. Vasculature: Major intracranial arterial structures, and dural venous sinuses show typical flow void, suggesting patency by spin echo criteria. Other: Mild paranasal sinus mucosal thickening. The mastoid air cells are clear. The orbits and extracranial soft tissues are unremarkable. IMPRESSION: Compared to 02/28/2025, minimally decreased size of the enhancing mesial left temporal lobe lesion with significantly improved surrounding T2/FLAIR signal abnormality. No perfusion abnormality. Stable size of small enhancing lesions along the left falx. No new abnormal parenchymal or leptomeningeal enhancement. Call Worker Person: EMILI Transcribe Date/Time: Apr 18 2025 1:58P Dictated by : BASILIA GOODMAN MD This examination was interpreted and the report reviewed and electronically signed by: ANDREA NICHOLSON MD on Apr 18 2025 3:03PM EST [id number] PROGRESS Observed: 04/18/2025 1:00 PM Status: COMPLETED Source: [facility] HNO ID: [id number] Author: CORKY BAIRES RT(R) Service: ? Author Type: Technologist Type: Progress Notes Filed: 04/18/2025 13:01 Note Text: Radiology Service Progress Note PATIENT NAME: Angel Keating DATE OF SERVICE: April 18, 2025 TIME: 1:01 PM PATIENT IDENTITY VERIFICATION COMPLETED USING TWO (2) IDENTIFIERS: Name and Date of confirmed by patient verbally. FALL SCREENING: Has the patient had 2 falls in the last year or 1 fall with injury or currently using an Ambulatory Assistive Device (Walker, Cane, Wheelchair, Crutches, etc.)? No PATIENT GENDER DATA: Assigned male at PATIENT RELEVANT IMPLANT DATA REVIEWED: Yes PATIENT PRESENTS WITH AN IMPLANTABLE OR ATTACHED PLATE FINISHER: No RADIOLOGY DEPARTMENT: MR; Exam(s) Completed: Head: Routine Brain with Perfusion. Anesthesia: No. Aromatherapy Administered: No PERIPHERAL IV DATA: Site assessment: Clean,Dry and Intact, Site disposition Discontinued SIGNED BY: Corky Baires, RT(R) April 18, 2025 1:01 PM PROGRESS Observed: 04/14/2025 10:42 AM Status: COMPLETED Source: [facility] HNO ID: [id number] Author: MAGUE BARRETT LPN Service: ? Author Type: Licensed Nurse Type: Progress Notes Filed: 04/14/2025 11:03 Note Text: Patient presents with: Imm/Inj Pt is identified by name and birthdate: Yes. Allergies and medications reviewed. Latex allergy? No. Does this patient have: Unplanned weight loss or gain of greater than 10 pounds, or a change of appetite over the last year? No Does the patient have any concerns about safety in the home/falls? Not at risk for falls Has the patient fallen in the past year? No Does the patient have difficulty performing or completing routine daily living activities? No Does this patient have concerns about personal safety? No Is patient having pain? Pain: No=0 (pain 0 on a scale of 0-10). Health Maintenance: Reviewed and updated. Does patient have MyChart access or Caregiver proxy: yes Pt/Caregiver willingness and readiness to learn assessed: Yes. Barriers: none Nplate injection administered, left arm tolerated well, no immediate adverse reactions noted. Mague Barrett LPN CBC W AUTO DIFF BLD Collected: 04/14/2025 9:[address] atus: F Source: [facility] Order Comment: Specimen Type : BLOOD SPECIMEN Ordering Facility: [facility] Address: [address] [place] [address] TYPE CODE TESTS RESULT OUT OF RANGE REFERENCE UNITS LAB 6690-2(LOINC) WBC # Bld Auto 8.02 3.70-11.00 k/uL LAB 789-8([facility]) RBC # Bld Auto 3.90 Low 4.20-6.00 m/ uL LAB 718-7([facility]) Hgb Bld-mCnc 13.6 13.0-17.0 g/dL LAB 4544-3([facility]) Hct VFr Bld Auto 38.0 Low 39.0-51.0 % LAB 787-2([facility]) MCV RBC Auto 97.4 80.0-100.0 fL LAB 785-6([facility]) MCH RBC Qn Auto 34.9 High 26.0-34.0 p g LAB 786-4([facility]) MCHC RBC Auto-mCnc 35.8 30.5-36.0 g/dL LAB 96737-8([facility]) RDW RBC-Rto 16.0 High 11.5-15.0 % LAB 777-3([facility]) Platelet # Bld Auto 60 Low 150-400 k/uL LAB 31035-5([facility]) PMV Bld Auto 10.3 9.0-12.7 fL LAB 770-8([facility]) Neutrophils/leuk NFr Bld Auto 90.3 % LAB 751-8([facility]) Neutrophils # Bld Auto 7.24 1.45-7.50 k/uL LAB 736-9([facility]) Lymphocytes/leuk NFr Bld Auto 3.2 % LAB 731-0([facility]) Lymphocytes # Bld Auto 0.26 Low 1.00-4.00 k/uL LAB 5905-5([facility]) Monocytes/leuk NFr Bld Auto 5.4 % LAB 742-7([facility]) Monocytes # Bld Auto 0.43 <0.87 k/uL LAB 713-8([facility]) Eosinophil/leuk NFr Bld Auto 0.1 % LAB 711-2([facility]) Eosinophil # Bld Auto <0.03 <0.46 k/uL LAB 706-2([facility]) Basophils/leuk NFr Bld Auto 0.1 % LAB 704-7([facility]) Basophils # Bld Auto <0.03 <0.11 k/uL LAB 24413-3([facility]) Imm Granulocytes/christina k NFr Bld Auto 0.9 % LAB 01660-1(LOINC) Imm Granulocytes # Bld Auto 0.07 <0.10 k/uL LAB 87326-7(LOINC) nRBC/100 WBC Bld-Rto 0.0 /100 WBC LAB 771-6(LOINC) nRBC # Bld Auto <0.01 <0.01 k/u L LAB 95096-4(LOINC) Differential method Bld Auto Performed By: #### [id number] # ### [facility] CLIA [id number] [address] [place] [address] CNPN Observed: 04/14/2025 12:00 AM Status: COMPLETED Source: [facility] Telephone (NSCAMN) ANGEL KEATING ([id number]) 1970 [facility] Date Time Provider Department 04/14/25 PATRICIA ENRIQUEZ NSCAMN During your visit today, we recorded the following information about you: Esme Cook RN 04/14/2025 10:17 AM Signed Called patient to inform him that his platelets are 60. He can get his Nplate injection. Instructed him to check in on the first floor of the [facility] for his injection. Allergies As of Date: 04/14/2025 (No Known Allergies) Date Reviewed: 04/05/2025 Reviewed by: Marylou Sutton, VAZQUEZ - Fully Assessed Reason for Visit: Banking Supervisor - Other [0432] Patient Update [5754] Prescriptions as of 04/14/2025 - dexAMETHasone (DECADRON) 2 mg tablet decrease to 10 mg daily starting on 04/06 - [employer] kit Outpatient physical therapy - atovaquone (MEPRON) 750 mg/5 mL oral liquid Take 10 mL by mouth daily with breakfast. - dexAMETHasone (DECADRON) 6 mg tablet Take 1 tablet by mouth two times a day with meals. - lacosamide (VIMPAT) 150 mg tab Take 1 tablet by mouth two times a day for 180 days. - valACYclovir (VALTREX) 500 mg tablet Take 1 tablet by mouth once daily. - traZODone (DESYREL) 50 mg tablet TAKE 1 TABLET BY MOUTH EVERYDAY AT BEDTIME - pantoprazole DR (PROTONIX) 40 mg tablet Take 1 tablet by mouth once daily. - ondansetron (ZOFRAN) 8 mg tablet Take one tablet by mouth on an empty stomach in the evening one hour prior to chemo. Then take one tablet 24 hours after chemo. May repeat dose every 8-12 hours if needed to prevent nausea - midazolam (NAYZILAM) 5 mg/spray (0.1 mL) nasal spray Use 1 [place] in the nose as needed for up to 10 days. May repeat dose in alternate nostril after 10 minutes based on response and tolerability. - acetaminophen (TYLENOL) 325 mg tablet 2 tablets by ORAL/FEEDING TUBE route every 4 hours as needed for pain. Facility-Administered Medications as of 04/14/2025 - romiPLOStim 92 mcg in sterile water (NPLATE) - NaCl 0.9% iv infusion - diphenhydrAMINE 50 mg injection (BENADRYL) - hydrocortisone sodium succinate (PF) 100 mg injection (Solu-CORTEF) - EPINEPHrine HCl (PF) 1 mg/mL (1 mL) 0.3 mg injection Problem List As Of Date 04/14/2025 Noted Resolved Chest pain [R07.9] 04/25/2010 05/26/2024 Brain mass [G93.89] 03/17/2023 11/17/2023 Obesity, Class I, BMI 30-34.9 [E66.811] 03/17/2023 Brain compression (HCC) [G93.5] 03/20/2023 S/P brain surgery [Z98.890] 03/20/2023 11/17/2023 At risk for seizures [Z91.89] 03/20/2023 Cerebral edema (HCC) [G93.6] 03/20/2023 GBM (glioblastoma multiforme) (HCC) [C71.9] 04/07/2023 Syncope, unspecified syncope type [R55] 11/01/2023 11/03/2023 Examination of participant in clinical trial [Z*11/05/2023 11/17/2023 Forehead pain [R51.9] 11/05/2023 PONV (postoperative nausea and vomiting) [R11.2*05/26/2024 Acute post-operative pain [G89.18] 05/29/2024 Thrombocytopenia [D69.6] 10/13/2024 Vasogenic edema (HCC) [G93.6] 03/24/2025 Malnutrition of mild degree (HCC) [E44.1] 03/24/2025 Glioblastoma (HCC) [C71.9] 03/28/2025 Encounter Status:Closed by ESME COOK on 04/14/25 COMP METAB 2000 PNL SERPL Collected: 1:13 PM Status: F Source: [facility] Order Comment: Specimen Type : BLOOD SPECIMEN Ordering Facility: [facility] Address: [address] [place] [address] TYPE CODE TESTS RESULT OUT OF RANGE REFERENCE UNITS LAB 2885-2(LOINC) Prot SerPl-mCnc 5.8 Low 6.3-8.0 g/dL LAB 1751-7(LOINC) Albumin SerPl-mCnc 3.5 Low 3.9-4.9 g/dL LAB 30806-2(LOINC) Calcium SerPl-mCnc 8.7 8.5-10.2 mg/dL LAB 1975-2(LOINC) Bilirub SerPl-mCnc 0.7 0.2-1.3 mg/dL LAB 6768-6(LOINC) ALP SerPl-cCnc 82 38-113 U/L LAB 1920-8(LOINC) AST SerPl-cCnc 15 14-40 U/L LAB 1742-6(LOINC) ALT SerPl-cCnc 24 10-54 U/L LAB 2345-7(LOINC) Glucose SerPl-mCnc 131 High 74-99 mg/dL Result Comment: The [place] Diabetes Association (ADA) provides guidance for cutoff values for fasting glucose and random glucose. The ADA defines fasting as no caloric intake for at least 8 hours. Fasting plasma glucose results between 100 to 125 mg/dL indicate increased risk for diabetes (prediabetes). Fasting plasma glucose results greater than or equal to 126 mg/dL meet the criteria for diagnosis of diabetes. In the absence of unequivocal hyperglycemia, results should be confirmed by repeat testing. In a patient with classic symptoms of hyperglycemia or hyperglycemic crisis, random plasma glucose results greater than or equal to 200 mg/dL meet the criteria for diagnosis of diabetes. Reference: Standards of Medical Care in Diabetes 2016, [place] Diabetes Association. Diabetes Care. 2016.39(Suppl 1). LAB 3094-0(LOINC) BUN SerPl-mCnc 25 High 9-24 mg/dL LAB 2160-0(LOINC) Creat SerPl-mCnc 0.95 0.73-1.22 mg/dL LAB 2951-2(LOINC) Sodium SerPl-sCnc 134 Low 136-144 mmol/L LAB 2823-3(LOINC) Potassium SerPl-sCnc 4.3 3.7-5.1 mmol/L LAB 2075-0(LOINC) Chloride SerPl-sCnc 106 98-107 mmol/L LAB 2028-9(LOINC) CO2 SerPl-sCnc 22 22-30 mmol/L LAB 61892-1(LOINC) Anion Gap SerPl-sCnc 6 Low 8-15 mmol/L LAB 52058-5(LOINC) eGFRcr SerPlBld CKD-EPI 2020 94 >=60 mL/min/1. 73m??? Result Comment: Estimated Gl omerular Filtration Rate (eGFR) is calculated using the 2020 CKD-EPI creatinine equation. This equation utilizes serum creatinine, sex, and age as parameters. The creatinine assay has traceable calibration to isotope dilution-mass spectrometry. Refer to KDIGO guidelines for clinical interpretation. In patients with unstable renal function, e.g. those with acute kidney injury, the eGFR may not accurately reflect actual GFR. Performed By: #### 72281-1 # ### [facility] CLIA [id number] [address] [place] [address] [place] CBC W AUTO DIFF BLD Collected: 04/13/2025 1:[address] atus: F Source: [facility] Order Comment: Specimen Type : BLOOD SPECIMEN Ordering Facility: [facility] Address: [address] [place] [address] TYPE CODE TESTS RESULT OUT OF RANGE REFERENCE UNITS LAB 6690-2([facility]) WBC # Bld Auto 9.13 3.70-11.00 k/uL LAB 789-8([facility]) RBC # Bld Auto 4.14 Low 4.20-6.00 m/ uL LAB 718-7([facility]) Hgb Bld-mCnc 14.3 13.0-17.0 g/dL LAB 4544-3([facility]) Hct VFr Bld Auto 40.6 39.0-51.0 % LAB 787-2([facility]) MCV RBC Auto 98.1 80.0-100.0 fL LAB 785-6([facility]) MCH RBC Qn Auto 34.5 High 26.0-34.0 p g LAB 786-4([facility]) MCHC RBC Auto-mCnc 35.2 30.5-36.0 g/dL LAB 43980-3([facility]) RDW RBC-Rto 16.0 High 11.5-15.0 % LAB 777-3([facility]) Platelet # Bld Auto 56 Low 150-400 k/uL Result Comment: No clot dete cted. LAB 67200-4([facility]) PMV Bld Auto 8.7 Low 9.0-12.7 fL LAB 770-8([facility]) Neutrophils/leuk NFr Bld Auto 90.4 % LAB 751-8([facility]) Neutrophils # Bld Auto 8.25 High 1.45-7.50 k/uL LAB 736-9([facility]) Lymphocytes/leuk NFr Bld Auto 3.8 % LAB 731-0([facility]) Lymphocytes # Bld Auto 0.35 Low 1.00-4.00 k/uL LAB 5905-5([facility]) Monocytes/leuk NFr Bld Auto 4.7 % LAB 742-7([facility]) Monocytes # Bld Auto 0.43 <0.87 k/uL LAB 713-8([facility]) Eosinophil/leuk NFr Bld Auto 0.1 % LAB 711-2([facility]) Eosinophil # Bld Auto <0.03 <0.46 k/uL LAB 706-2([facility]) Basophils/leuk NFr Bld Auto 0.0 % LAB 704-7([facility]) Basophils # Bld Auto <0.03 <0.11 k/uL LAB 10178-3(LOINC) Imm Granulocytes/christina k NFr Bld Auto 1.0 % LAB 16574-2(LOINC) Imm Granulocytes # Bld Auto 0.09 <0.10 k/uL LAB 93691-9(LOINC) nRBC/100 WBC Bld-Rto 0.0 /100 WBC LAB 771-6(LOINC) nRBC # Bld Auto <0.01 <0.01 k/u L LAB 82006-8([facility]) Differential method Bld Auto Performed By: #### [id number] # ### [facility] CLIA [id number] [address] [place] [address] CNPN Observed: 04/13/2025 12:00 AM Status: COMPLETED Source: [facility] Telephone ([employer]) ANGEL KEATING ([id number]) 1970 M T Date Time Provider Department 04/13/25 PATRICIA ENRIQUEZ [employer] During your visit today, we recorded the following information about you: Tona Cobos RN 04/13/2025 2:09 PM Signed Called patient regarding low platelets. 56K He reported 3-4 episodes of epistaxis yesterday lasting <5 mins None today. He needs repeat CBC in am tomorrow. He asked about getting an N-plate injection due to concern that his platelets will drop lower and he will have to khoi his treatment next week. I will discuss with Dr Juno Cobos, RN, BSN Banking Supervisor [facility] Allergies As of Date: 04/13/2025 (No Known Allergies) Date Reviewed: 04/05/2025 Reviewed by: Marylou Sutton RN - Fully Assessed Reason for Visit: PLT 56K [Other] Prescriptions as of 04/13/2025 - dexAMETHasone (DECADRON) 2 mg tablet decrease to 10 mg daily starting on 04/06 - [employer] kit Outpatient physical therapy - atovaquone (MEPRON) 750 mg/5 mL oral liquid Take 10 mL by mouth daily with breakfast. - dexAMETHasone (DECADRON) 6 mg tablet Take 1 tablet by mouth two times a day with meals. - lacosamide (VIMPAT) 150 mg tab Take 1 tablet by mouth two times a day for 180 days. - valACYclovir (VALTREX) 500 mg tablet Take 1 tablet by mouth once daily. - traZODone (DESYREL) 50 mg tablet TAKE 1 TABLET BY MOUTH EVERYDAY AT BEDTIME - pantoprazole DR (PROTONIX) 40 mg tablet Take 1 tablet by mouth once daily. - ondansetron (ZOFRAN) 8 mg tablet Take one tablet by mouth on an empty stomach in the evening one hour prior to chemo. Then take one tablet 24 hours after chemo. May repeat dose every 8-12 hours if needed to prevent nausea - midazolam (NAYZILAM) 5 mg/spray (0.1 mL) nasal spray Use 1 [place] in the nose as needed for up to 10 days. May repeat dose in alternate nostril after 10 minutes based on response and tolerability. - acetaminophen (TYLENOL) 325 mg tablet 2 tablets by ORAL/FEEDING TUBE route every 4 hours as needed for pain. Problem List As Of Date 04/13/2025 Noted Resolved Chest pain [R07.9] 04/25/2010 05/26/2024 Brain mass [G93.89] 03/17/2023 11/17/2023 Obesity, Class I, BMI 30-34.9 [E66.811] 03/17/2023 Brain compression (HCC) [G93.5] 03/20/2023 S/P brain surgery [Z98.890] 03/20/2023 11/17/2023 At risk for seizures [Z91.89] 03/20/2023 Cerebral edema (HCC) [G93.6] 03/20/2023 GBM (glioblastoma multiforme) (HCC) [C71.9] 04/07/2023 Syncope, unspecified syncope type [R55] 11/01/2023 11/03/2023 Examination of participant in clinical trial [Z*11/05/2023 11/17/2023 Forehead pain [R51.9] 11/05/2023 PONV (postoperative nausea and vomiting) [R11.2*05/26/2024 Acute post-operative pain [G89.18] 05/29/2024 Thrombocytopenia [D69.6] 10/13/2024 Vasogenic edema (HCC) [G93.6] 03/24/2025 Malnutrition of mild degree (HCC) [E44.1] 03/24/2025 Glioblastoma (HCC) [C71.9] 03/28/2025 Encounter Status:Closed by TONA COBOS on 04/13/25 CNPN Observed: 04/13/2025 12:00 AM Status: COMPLETED Source: [facility] Telephone ([employer]) ANGEL KEATING ([id number]) 1970 M [facility] Date Time Provider Department 04/13/25 TAE OROPEZA During your visit today, we recorded the following information about you: Daniel White 04/13/2025 2:12 PM Signed Received call from [facility] stating that patient needs to have Nplate completed tomorrow at [facility]. Dr. Fraire ordering. I have a hold on 10:15 for patient. Please review and advise. No need to contact patient unless we are unable to do injection. Daniel White 04/13/2025 2:47 PM Signed Daniel Oropeza RPh You; Mague Barrett LPN; Wstr Hem/Onc Psr; Bernice Robertson, [facility]; [place] oMrley, RP minutes ago (2:41 PM) SALEEM Morgan, Was advised that a CCN would not be accepted for us to proceed tomorrow. Nplate will need to be delayed until approved. Daniel sEtevez, Daniel 04/13/2025 2:47 PM Signed I will forward message on to Ashley. Thank you. John Estevez, Daniel 04/21/2025 11:51 AM Signed Lab and Injection for Nplate requested again from Dr. Fraire. Patient is scheduled for 04/25 per their request. Injection sched is full, added to lab/port schedule Allergies As of Date: 04/13/2025 (No Known Allergies) Date Reviewed: 04/05/2025 Reviewed by: Marylou Sutton RN - Fully Assessed Reason for Visit: Appointment [186] Prescriptions as of 04/21/2025 - modafinil (PROVIGIL) 100 mg tablet Take 1 tablet in the morning. If needed take another tablet at 2 pm - dexAMETHasone (DECADRON) 2 mg tablet decrease to 10 mg daily starting on 04/06 - [employer] kit Outpatient physical therapy - atovaquone (MEPRON) 750 mg/5 mL oral liquid Take 10 mL by mouth daily with breakfast. - dexAMETHasone (DECADRON) 6 mg tablet Take 1 tablet by mouth two times a day with meals. - lacosamide (VIMPAT) 150 mg tab Take 1 tablet by mouth two times a day for 180 days. - valACYclovir (VALTREX) 500 mg tablet Take 1 tablet by mouth once daily. - traZODone (DESYREL) 50 mg tablet TAKE 1 TABLET BY MOUTH EVERYDAY AT BEDTIME - pantoprazole DR (PROTONIX) 40 mg tablet Take 1 tablet by mouth once daily. - ondansetron (ZOFRAN) 8 mg tablet Take one tablet by mouth on an empty stomach in the evening one hour prior to chemo. Then take one tablet 24 hours after chemo. May repeat dose every 8-12 hours if needed to prevent nausea - midazolam (NAYZILAM) 5 mg/spray (0.1 mL) nasal spray Use 1 [place] in the nose as needed for up to 10 days. May repeat dose in alternate nostril after 10 minutes based on response and tolerability. - acetaminophen (TYLENOL) 325 mg tablet 2 tablets by ORAL/FEEDING TUBE route every 4 hours as needed for pain. Problem List As Of Date 04/13/2025 Noted Resolved Chest pain [R07.9] 04/25/2010 05/26/2024 Brain mass [G93.89] 03/17/2023 11/17/2023 Obesity, Class I, BMI 30-34.9 [E66.811] 03/17/2023 Brain compression (HCC) [G93.5] 03/20/2023 S/P brain surgery [Z98.890] 03/20/2023 11/17/2023 At risk for seizures [Z91.89] 03/20/2023 Cerebral edema (HCC) [G93.6] 03/20/2023 GBM (glioblastoma multiforme) (HCC) [C71.9] 04/07/2023 Syncope, unspecified syncope type [R55] 11/01/2023 11/03/2023 Examination of participant in clinical trial [Z*11/05/2023 11/17/2023 Forehead pain [R51.9] 11/05/2023 PONV (postoperative nausea and vomiting) [R11.2*05/26/2024 Acute post-operative pain [G89.18] 05/29/2024 Thrombocytopenia [D69.6] 10/13/2024 Vasogenic edema (HCC) [G93.6] 03/24/2025 Malnutrition of mild degree (HCC) [E44.1] 03/24/2025 Glioblastoma (HCC) [C71.9] 03/28/2025 Encounter Status:Closed by MAGUE BARRETT on 04/14/25 TRINO Observed: 04/13/2025 12:00 AM Status: COMPLETED Source: [facility] ANGEL KEATING ([id number]) 1970 M [facility] Date Time Provider Department 04/13/25 PATRICIA ENRIQUEZ [facility] During your visit today, we recorded the following information about you: Tona Cobos RN 04/13/2025 2:01 PM Signed Please schedule N Plate injection for Thursday, Apr 14 at [facility] Please schedule 11 am or later to allow time for patient to have blood drawn in am Dr Juno Cobos, RN, BSN Banking Supervisor [facility] John Zenaida Daniel 04/13/2025 2:54 PM Signed Good afternoon, I spoke with Ashley earlier regarding injection for patient at our [place] location. I sent a telephone encounter to our pharm team and this is the reply we received from Daniel Oropeza. Was advised that a CCN would not be accepted for us to proceed tomorrow. Nplate will need to be delayed until approved. I am unable to schedule the injection for patient. Wanted to inform you juancarlos. John Estevez Daniel 04/13/2025 3:19 PM Signed Scheduling 10:15 injection now. Daniel White 04/13/2025 3:26 PM Signed Does he just need CBC for tomorrow? John Estevez Daniel 04/13/2025 3:42 PM Signed You're welcome. Lab is scheduled for 9:15 as requested Allergies As of Date: 04/13/2025 (No Known Allergies) Date Reviewed: 04/05/2025 Reviewed by: Marylou Sutton RN - Fully Assessed Reason for Visit: URGENT TREATMENT [Other] Prescriptions as of 04/13/2025 - dexAMETHasone (DECADRON) 2 mg tablet decrease to 10 mg daily starting on 04/06 - [employer] kit Outpatient physical therapy - atovaquone (MEPRON) 750 mg/5 mL oral liquid Take 10 mL by mouth daily with breakfast. - dexAMETHasone (DECADRON) 6 mg tablet Take 1 tablet by mouth two times a day with meals. - lacosamide (VIMPAT) 150 mg tab Take 1 tablet by mouth two times a day for 180 days. - valACYclovir (VALTREX) 500 mg tablet Take 1 tablet by mouth once daily. - traZODone (DESYREL) 50 mg tablet TAKE 1 TABLET BY MOUTH EVERYDAY AT BEDTIME - pantoprazole DR (PROTONIX) 40 mg tablet Take 1 tablet by mouth once daily. - ondansetron (ZOFRAN) 8 mg tablet Take one tablet by mouth on an empty stomach in the evening one hour prior to chemo. Then take one tablet 24 hours after chemo. May repeat dose every 8-12 hours if needed to prevent nausea - midazolam (NAYZILAM) 5 mg/spray (0.1 mL) nasal spray Use 1 [place] in the nose as needed for up to 10 days. May repeat dose in alternate nostril after 10 minutes based on response and tolerability. - acetaminophen (TYLENOL) 325 mg tablet 2 tablets by ORAL/FEEDING TUBE route every 4 hours as needed for pain. Problem List As Of Date 04/13/2025 Noted Resolved Chest pain [R07.9] 04/25/2010 05/26/2024 Brain mass [G93.89] 03/17/2023 11/17/2023 Obesity, Class I, BMI 30-34.9 [E66.811] 03/17/2023 Brain compression (HCC) [G93.5] 03/20/2023 S/P brain surgery [Z98.890] 03/20/2023 11/17/2023 At risk for seizures [Z91.89] 03/20/2023 Cerebral edema (HCC) [G93.6] 03/20/2023 GBM (glioblastoma multiforme) (HCC) [C71.9] 04/07/2023 Syncope, unspecified syncope type [R55] 11/01/2023 11/03/2023 Examination of participant in clinical trial [Z*11/05/2023 11/17/2023 Forehead pain [R51.9] 11/05/2023 PONV (postoperative nausea and vomiting) [R11.2*05/26/2024 Acute post-operative pain [G89.18] 05/29/2024 Thrombocytopenia [D69.6] 10/13/2024 Vasogenic edema (HCC) [G93.6] 03/24/2025 Malnutrition of mild degree (HCC) [E44.1] 03/24/2025 Glioblastoma (HCC) [C71.9] 03/28/2025 Encounter Status:Closed by TONA COBOS on 04/13/25 TRINO Observed: 04/12/2025 12:00 AM Status: COMPLETED Source: [facility] Telephone [facility] ANGEL KEATING ([id number]) 1970 M T Date Time Provider Department 04/12/25 PATRICIA ENRIQUEZ [facility] During your visit today, we recorded the following information about you: Tona Cobos RN 04/12/2025 2:41 PM Signed LM needs repeat chemo labs Tona Cobos RN, BSN Banking Supervisor [facility] Allergies As of Date: 04/12/2025 (No Known Allergies) Date Reviewed: 04/05/2025 Reviewed by: Marylou Sutton RN - Fully Assessed Reason for Visit: Reminder To Have Labs Drawn [5145] Prescriptions as of 04/12/2025 - dexAMETHasone (DECADRON) 2 mg tablet decrease to 10 mg daily starting on 04/06 - [employer] kit Outpatient physical therapy - atovaquone (MEPRON) 750 mg/5 mL oral liquid Take 10 mL by mouth daily with breakfast. - dexAMETHasone (DECADRON) 6 mg tablet Take 1 tablet by mouth two times a day with meals. - lacosamide (VIMPAT) 150 mg tab Take 1 tablet by mouth two times a day for 180 days. - valACYclovir (VALTREX) 500 mg tablet Take 1 tablet by mouth once daily. - traZODone (DESYREL) 50 mg tablet TAKE 1 TABLET BY MOUTH EVERYDAY AT BEDTIME - pantoprazole DR (PROTONIX) 40 mg tablet Take 1 tablet by mouth once daily. - ondansetron (ZOFRAN) 8 mg tablet Take one tablet by mouth on an empty stomach in the evening one hour prior to chemo. Then take one tablet 24 hours after chemo. May repeat dose every 8-12 hours if needed to prevent nausea - midazolam (NAYZILAM) 5 mg/spray (0.1 mL) nasal spray Use 1 [place] in the nose as needed for up to 10 days. May repeat dose in alternate nostril after 10 minutes based on response and tolerability. - acetaminophen (TYLENOL) 325 mg tablet 2 tablets by ORAL/FEEDING TUBE route every 4 hours as needed for pain. Problem List As Of Date 04/12/2025 Noted Resolved Chest pain [R07.9] 04/25/2010 05/26/2024 Brain mass [G93.89] 03/17/2023 11/17/2023 Obesity, Class I, BMI 30-34.9 [E66.811] 03/17/2023 Brain compression (HCC) [G93.5] 03/20/2023 S/P brain surgery [Z98.890] 03/20/2023 11/17/2023 At risk for seizures [Z91.89] 03/20/2023 Cerebral edema (HCC) [G93.6] 03/20/2023 GBM (glioblastoma multiforme) (HCC) [C71.9] 04/07/2023 Syncope, unspecified syncope type [R55] 11/01/2023 11/03/2023 Examination of participant in clinical trial [Z*11/05/2023 11/17/2023 Forehead pain [R51.9] 11/05/2023 PONV (postoperative nausea and vomiting) [R11.2*05/26/2024 Acute post-operative pain [G89.18] 05/29/2024 Thrombocytopenia [D69.6] 10/13/2024 Vasogenic edema (HCC) [G93.6] 03/24/2025 Malnutrition of mild degree (HCC) [E44.1] 03/24/2025 Glioblastoma (HCC) [C71.9] 03/28/2025 Encounter Status:Closed by TONA COBOS on 04/12/25 PROGRESS Observed: 04/06/2025 12:57 AM Status: COMPLETED Source: [facility] HNO ID: [id number] Author: PATRICIA ENRIQUEZ MD Service: ? Author Type: Physician Type: Progress Notes Filed: 04/06/2025 01:09 Note Text: Neurological [facility] NEURO-ONCOLOGY CLINIC VISIT NOTE [facility] Team: -Jose Evans MD, Neurosurgery -SAV Rodriguez, Radiation Oncology -Patricia Enriquez MD, Neuro-Oncology DIAGNOSIS: MGMT unmethylated Glioblastoma. 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 He initially presented with anxiety-attack like episodes going back to January 2023 as well as a fall, without loss of consciousness but +trauma to head around 02/27/2023. On 03/16/2023, he presented to [facility] ED with word finding difficulty, report of one-time fever of 101 in February, anxiety, increased thirst and urination and was found to have a L temporal mass with midline subfalcine shift concerning for high grade glioma. He was afebrile with normal glucose level and electrolytes. He underwent gross total resection by Dr. Evans on 03/19/2023, revealing an MGMT unmethylated glioblastoma, WHO Grade 4. He was discharged on keppra 750mg BID and dexamethasone taper. He established care with Dr. Enriquez and given paroxysmal episodes of anxiety, he was concerned about temporal lobe epilepsy and advised lifelong AED to reduce seizure risk. The patient was exhibiting some fatigue and dullness, so a cross taper from keppra to vimpat, with goal of vimpat 150mg BID. The patient expressed interest in clinical trials and enrolled onto [facility] AGILE. He was randomized to the [id number] arm (cyclic peptide modulating tumor microenvironment). TREATMENT HISTORY Gross total resection [03/19/2023] [facility] Dr. Evans MGMT unmethylated Glioblastoma. L temporal [facility] AGILE, randomized to [id number] IV twice weekly arm + Standard concurrent chemotherapy and radiation (04/20- 05/29/2023) [facility] Dr. Joyce and Dr. Enriquez Adjuvant temozolomide PO D1-5 q 28 days C1 07/01/23, will start 07/03 150mg/m2 C2 07/27/23 C3 08/31/23 C4 09/21/23 C5 10/26/23 C6 11/23/23 C7 12/28/23 STOP ADJ TMZ as the clinical; trial calls for up to 6 cycles. For some reason the patient had an extra cycle of Adj TMZ. Adjuvant [id number] during Maintenance: Cycle 7 Week 1 - infusions on 12/14/2023 (D1) and 12/17/2023 (D4) Cycle 7 Week 2 - infusions on 12/21/2023 (D8) and 12/24/2023 (D11) Cycle 7 Week 3 - infusions on 12/28/2023 (D15) and 12/31/2023 (D18) Cycle 7 Week 4 - infusions on 01/05/2024 (D22) and 01/08/2024 (D25) Cycle 8 Week 5 - infusions on 01/11/2024 and 01/14/2024 02/08/2024: MRI shows progression 02/08/24 BTB Referrals to se Dr. Evans for possible surgery. If surgery offered, he can be enrolled in CASE 3322 clinical trial with methimazole + chemo. 02/18/24: Dr Evans recommended NO surgery. 02/26/24 Lomustine 90mg/m2 C#1 02/25-04/08/24 04/12/24 Tumor progression, increased CBV 04/14/2024 BTB Referrals to se Dr. Evans for possible surgery. The patient is also eligible, for CASE 3322 clinical trial with methimazole + chemo. 04/28/2024 Jose Evans MD since the patient, and recommended surgery. 04/28/2024 clinical trials team, saw the patient, the patient is eligible, for for CASE 3322 clinical trial with methimazole + chemo. Patient signed consent. Treatment plan: Pre-operative treatment Phase -Methimazole - Pre-Op period: 05/24/2024 to 05/27/2024 (last dose is DAY of surgery) -Dose level 2 (25 mg daily) Surgical resection 05/27/[address] 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 C1D1 (10-28 days after surgery) -Scheduled for 06/16/2024 (20 days post op) -Methimazole - Post-Op period: 05/27/2024- TBD -Dose level 2 (25 mg judy C1D1 lomustine 110 mg/m2 - 07/28/24 - NOTE DATE ENTERED IN ERROR - PATIENT DID NOT TAKE CHEMO ON 08/07/2024 C2D1 lomustine -- planned for 09/07/24 08/22/2024 Brain MR - new enhancing nodules. 08/29/2024 BTB recommend to continue on lomustine, and SRS to enhancing nodules, which was completed. CORRECTED DATES OF CHEMO: C1D1 JUN 28, 2024 09/05/2024 NOTE: RE; DISCREPANCY ON LOMUSTINE CYCLE. The patient recalled that he had taken Lomustine cycle No 1 [after 2nd surgery (05/27/2024)] on ~mid June 2024 and that he was due for cycle No 2 for early August 2024 We reviewed the pharmacy records and indeed the patient took cycle No 1 of Lomustine on 06/28/25, and he was due for next cycle on ~Aug 12, 2024. Pharmacy note confirm that lomustine was delivered. Although per patient knowledge that he needed to start his chemo, cycle No 2 of lomustine on 1st week of Aug 2024 - however he did not started as he was instructed that the chemo was to start not until Sep 07, 2024. Hence the patient had not started his chemo. 09/05/2024: The patient brought lomustine capsules, cycle No 2, as he noted - issued on 08/05/2024 - which should have started on Aug 12, 2024. The reason for the discrepancy - likely entry data error of when he took cycle No 1 of lomustine - erroneously was entered as 07/28/2025. Lomustine 90mg/m2 C#2 09/05-10/17/24 September 19, 2024 - September 23, 2024 Dr Joyce SRS-GK: AREA TREATED: 1) Lt Temp 2) LT Ant Falx 3) Lt Sup Front 4) Lt Tent 5) Lt Temp 10/12/2024 MRI BRAIN WO/W Foci of nodular enhancement along the left temporal resection cavity are similar compared to 09/19/2024 (increased compared to 08/22/2024). Increased nonenhancing T2/FLAIR hyperintensity within the left temporal lobe compared to 08/22/2024. Lomustine 90mg/m2 C#3 10/21-12/02/24 11/16/2024 Brain MR. 1- CONTINUED GROWTH OF 2 NODULAR FOCI AT THE DEPTH OF LEFT TEMPORAL RESECTION CAVITY, DETAILED. THE LARGER SHOWS MODERATELY INCREASED CBV, SUSPICIOUS FOR PROGRESSION. 2. STABLE EXTRA-AXIAL ENHANCING LESION OVER LEFT MEDIAL FRONTAL LOBE, WITH REDUCED SIZE OF MORE LATERAL EXTRA-AXIAL LESION 3. REDUCED LEFT FRONTAL EPIDURAL HEMATOMA 4. NO NEW ACUTE PROCESS OR SUSPICIOUS ENHANCEMENT NOTE: Had MRI sooner than scheduled (11/30/2024), as the MR center called him asking if he wanted to have his MR sooner, as someone had canceled. 01/17/2025 Brain MR Evolving post therapy changes with progressive nodular enhancement and T2 signal abnormality in the medial left temporal lobe and insula, suspicious for progressive malignancy. 01/17/2025 Clinic visit: MRI changes probably treatment effect, recommend continue current treatment, lomustine. 01/24/2025: I reviewed the patients case/images with his oncology team, including Indu Blanchard his Radiation Oncologist, and with Dr. Evans, his neurosurgeon, and they agree with the approach to continue on the current management, that is lomustine,a and continue imaging surveillance. No need for any additional intervention at this juncture. Patricia Enriquez MD 02/28/2025 Brain MR Interval in size of nodular enhancement along the medial aspect of the resection cavity and significant interval increase in confluent T2/FLAIR hyperintensity. No elevated cerebral blood volume on the perfusion sequence to suggest neovascularity. Recommend short-term interval follow-up to exclude progressive disease. 03/02/2025 Clinic visit: MRI changes probably treatment effect, recommend continue current treatment, lomustine. 03/24/2025 - 03/31/2025 Admission (7 days) [facility]; Admitted due to progressive right sided arm/leg weakness, and aphasia, mainly word finding difficulty. Improved on steroids. - 03/25/2025 Brain MR and increasing enhancing small lesions adjacent to the left half of the falx compatible with progressive disease. Interval increase in size of the enhancement in the left mesial temporal lobe and left intralenticular region with increased vasogenic edema. However no elevated CBV associated with this area. No evidence of leptomeningeal disease. -Seen by Dr. Evans, patient's neurosurgeon, recommended no surgery -Rad Onc also saw patient, recommend no radiation 03/27/2025 Brain Tumor Board: changes seen on MR 03/25/2025 favor treatment effect (tumor cannot be excluded with certainty). Agreed with bevacizumab (edwin), and to continue lomustine. 04/05/2025 1st infusion. bevacizumab (edwin) 10 mg/Kg every 2 weeks. April 05, 2025 HPI In person visit The patient is accompanied by mother. The patient says, that he is doing better, he is ambulating, and going up stairs using a cane, and a walker.has no known allergies. Trouble with word finding is still there but improving. He feels that his comprehension is okay. However he needs to think more to say what he wants to say. Denies fevers, headaches, nausea or vomiting He expresses a desire to remain functional for his daughter's wedding which is for the month of April 2025. Past Diagnostic Results: - (01/17/2025) MRI: Evolving post-therapy changes with progressive nodular enhancement and T2 signal; suspicious for progressive malignancy. - (11/2024) MRI: Comparison for January 2025 MRI. CHEMO: see above Steroids: 03/31/2025 open discharged from the hospital dexAMETHasone 6 mg tablet Commonly known as: DECADRON Take 1 tablet by mouth two times a day with meals. Antiseizure medications: lacosamide 150 mg Tab Commonly known as: VIMPAT Take 1 tablet by mouth two times a day for 180 days. PHYSICAL EXAMINATION: - Neurological: - CNII: Visual land intact. - CNIII/CNIV/CNVI: Extraocular movements intact. - CNV: Sensation intact. - CNVII: Facial movements intact. - CNIX/CNX: Palate elevation intact. - CNXI: Shoulder shrug strength intact. - Motor: No atrophy or asymmetry noted. - Strength: - Arms: - Deltoids: Left: 5/5, Right: 5/5 - Biceps: Left: 5/5, Right: 5/5 - Triceps: Left: 5/5, Right: 5/5 - Lower Extremities: - Hip Flexors: Left: 5/5, Right: 5/5 - Hip Extensors: Left: 5/5, Right: 5/5 - Knee Flexion: Left: 5/5, Right: 5/5 - Knee Extension: Left: 5/5, Right: 5/5 - Ankle Dorsiflexion: Left: 5/5, Right: 5/5 - Ankle Plantarflexion: Left: 5/5, Right: 5/5 - Reflexes: - Arms: - Triceps: Left: 2+, Right: 2+ - Biceps: Left: 2+, Right: 2+ - Brachioradialis: Left: 2+, Right: 2+ - Lower Extremities: - Patella: Left: 2+, Right: 2+ - Achilles: Left: 2+, Right: 2+ - Babinski: Left: Downgoing, Right: Downgoing - Sensation: Intact to light touch and pinprick. - Coordination: Knmmzq-ns-cvwu and aahx-rg-pmov testing intact. - Gait: Normal. Imaging: MRI Report MRI BRAIN WO/W IVCON Exam End: 03/25/2025 9:02 AM (Final result) Narrative: * * *Final Report* * * DATE OF EXAM: Mar 25 2025 9:02AM QBM [id number] - MRI BRAIN WO/W IVCON / PROCEDURE REASON: Brain/PATENT PARALEGAL neoplasm, assess treatment response * * * * Physician Interpretation * * * * EXAMINATION: MRI BRAIN WO/W IVCON CLINICAL HISTORY: GBM. TECHNIQUE: Routine brain MRI protocol without and with contrast including diffusion images. Perfusion with gadolinium. MQ: [id number] Contrast: 18 mL dotarem IV COMPARISON: MRI brain from February 28, 2025 RESULT: Postop: Status post left temporal craniotomy. Again noted is heterogeneous susceptibility artifact and a fluid fluid level in the left middle cranial fossa from prior resection. Small amount of subgaleal blood byproducts are also identified superficial to the temporal craniotomy. Acute Change: There is no evidence of restricted diffusion to suggest an acute infarct. Hemorrhage: Again noted are hemorrhagic blood byproducts in the left middle cranial fossa resection site. Mass Lesion/ Mass Effect: There is interval increase in size of the residual enhancing lesion involving the remaining left amygdala and left hippocampal head and also extends superiorly into the left external capsule and left putamen. Overall size of this enhancing lesion is 2.3 x 2.7 x 2.0 cm up from 2.5 x 2.2 x 1.3 cm. The vasogenic edema on T2 and FLAIR throughout the residual left temporal lobe, left insula and left frontal lobe have markedly increased in the interim. Edema now extends into the posterior limb internal capsule and lateral aspect of left thalamus. There is interval increase in size in the focus of enhancement adjacent to the falx and left medial superior frontal gyrus now measuring 7 x 10 x 14 mm (series 16 image 23 and series 17 image 26) up from 5 x 8 x 13 mm. There is also a new lesion along the left aspect of the falx which measures 7 x 3 x 14 mm (series 16 image 18; series 17 image 19). No evidence of leptomeningeal disease. No elevated CBV on perfusion exam. No significant mass effect. Chronic Change: The white matter is within normal limits of signal intensity for age. Parenchyma: No significant volume loss for age. The brain parenchyma is otherwise within normal limits of signal intensity and morphology. Ventricles: Normal caliber and morphology. Skull Base: Hypothalamic and pituitary region are grossly normal. Craniocervical junction is normal. No significant marrow replacement process. Vasculature: Major intracranial arterial structures, and dural venous sinuses show typical flow void, suggesting patency by spin echo criteria. Other: The visualized paranasal sinuses and mastoid air cells are clear. The orbits and extracranial soft tissues are unremarkable. Impression: IMPRESSION: New and increasing enhancing small lesions adjacent to the left half of the falx compatible with progressive disease. Interval increase in size of the enhancement in the left mesial temporal lobe and left intralenticular region with increased vasogenic edema. However no elevated CBV associated with this area. No evidence of leptomeningeal disease. Call Worker Person: [facility] Transcribe Date/Time: Mar 25 2025 9:00A Dictated by : GUNJAN HONEYCUTT MD This examination was interpreted and the report reviewed and electronically signed by: GUNJAN HONEYCUTT MD on Mar 25 2025 9:11AM EST Assessment AND Plan 1. Glioblastoma (HCC) (C71.9) 1A. Encounter for antineoplastic chemotherapy (Z51.11) - The patient relates lomustine 90mg/m2 C#6 03/09-04/20/25 - As this is his 6/6 cycles of lomustine, we will stop here, in light, that the MRI changes, and likely treatment effect. Will proceed to treat the patient only with bevacizumab, and we will do the progressive chemo regimen in February, at that point can exclude active tumor completely. -The plan is to initiate bevacizumab, 10 mg/kg, every 2 weeks. - The patient will need to have, repeat CBC, CMP, and also protein in urine, this test, will be done on every infusion. -1st infusion 04/05/2025. -MRI brain w and w/o and perfusion is scheduled for 04/18/2025 - Tentative appointment for bevacizumab, on 04/19/2025 - Return clinic visit in person, scheduled for 04/20/2025 3. Seizures (HCC) (R56.9) 4. Seizure disorder (HCC) (G40.909) - Seizures well-controlled on lacosamide 150 mg BID; no recent seizure activity reported. - Continue current anticonvulsant therapy. 5. Psoriasis (L40.9) - Chronic scaly, flaky rashes reported on scalp, chest, arms, and legs. - Advised patient to document and upload photos of rashes to [facility] for further evaluation. In the end the patient and family verbalized understanding of the above, they had questions which I believe I answered to their satisfaction and agreed with these recommendations and had no further questions or concerns for the moment, but I encourage them to call the [facility] with any questions or concerns. I spent a total of 30 minutes on the date of the service which included preparing to see the patient, at least 50% of [id number]-[id number] patient care, completing clinical documentation, obtaining and/or reviewing separately obtained history, performing a medically appropriate examination, counseling and educating the patient/family/caregiver, ordering medications, tests, or procedures, communicating with other HCPs (not separately reported), independently interpreting results (not separately reported), communicating results to the patient/family/caregiver and care coordination (not separately reported). High MDM. Patricia Enriquez MD [facility] Patient Care Team: -Jose Evans MD, Neurosurgery, [facility], [facility] Cyndee Joyce MD, PhD, Radiation Oncology, [facility], [facility]. Jaclyn Guillory LSW as Pull Worker (Hematology/Oncology) Soraida Simmons RN (Hospice AND Palliative Medicine) Willy Lion MD (Hospice AND Palliative Medicine) Rupa Khoury APRN.EDSON (Hospice AND Palliative Medicine) Daniel Juárez PSYD, Psychology, [facility] URINALYSIS, DIPSTICK ONLY Collected: 04/05/2025 5:04 PM Status: F Source: [facility] Order Comment: Specimen Type : URINE SPECIMEN Ordering Facility: [facility] Address: [address] [place] [address] TYPE CODE TESTS RESULT OUT OF RANGE REFERENCE UNITS LAB 5778-6(LOINC) Color Ur Yellow Yellow LAB 55009-3(LOINC) Clarity Spec Clear Clear LAB 5792-7(LOINC) Glucose Ur Strip-mCnc Negative Negative LAB 5770-3(LOINC) Bilirub Ur Ql Strip Negative Negative LAB 2514-8(LOINC) Ketones Ur Strip Negative Negative LAB 5811-5(LOINC) Sp Gr Ur Strip 1.028 1.005-1.030 LAB 5794-3(LOINC) Hgb Ur Ql Strip Negative Negative LAB 5803-2(LOINC) pH Ur Strip 5.0 5.0-8.0 LAB 5804-0(LOINC) Prot Ur Strip-mCnc Negative Negative LAB 5818-0(LOINC) Urobilinogen Ur Strip 0.2 EU/dL 0.2-1.0 EU/dL LAB 5802-4(LOINC) Nitrite Ur Ql Strip Negative Negative LAB 5799-2(LOINC) Leukocyte esterase Ur Ql Strip Negative Negative Performed By: #### UA #### [facility] CLIA [id number] [address] [place] [address] [place] PROGRESS Observed: 04/05/2025 3:59 PM Status: COMPLETED Source: [facility] HNO ID: [id number] Author: TONA COBOS, VAZQUEZ Service: ? Author Type: Registered Nurse Type: Progress Notes Filed: 04/05/2025 15:59 Note Text: seen in during avastin infusion- Per Dr Fraire drop to decadron 10 mg daily until further directed Tona Cobos, RN, BSN Banking Supervisor Vaishali [facility] COMP METAB 2000 PNL SERPL Collected: 3:13 PM Status: F Source: [facility] Order Comment: Specimen Type : BLOOD SPECIMEN Ordering Facility: [facility] Address: [address], [place] [id number] TYPE CODE TESTS RESULT OUT OF RANGE REFERENCE UNITS LAB 2885-2(LOINC) Prot SerPl-mCnc 6.0 Low 6.3-8.0 g/dL LAB 1751-7(LOINC) Albumin SerPl-mCnc 3.5 Low 3.9-4.9 g/dL LAB 27637-7(LOINC) Calcium SerPl-mCnc 8.3 Low 8.5-10.2 mg/dL LAB 1975-2(LOINC) Bilirub SerPl-mCnc 0.6 0.2-1.3 mg/dL LAB 6768-6(LOINC) ALP SerPl-cCnc 73 38-113 U/L LAB 1920-8(LOINC) AST SerPl-cCnc 15 14-40 U/L LAB 1742-6(LOINC) ALT SerPl-cCnc 16 10-54 U/L LAB 2345-7(LOINC) Glucose SerPl-mCnc 158 High 74-99 mg/dL Result Comment: The [place] Diabetes Association (ADA) provides guidance for cutoff values for fasting glucose and random glucose. The ADA defines fasting as no caloric intake for at least 8 hours. Fasting plasma glucose results between 100 to 125 mg/dL indicate increased risk for diabetes (prediabetes). Fasting plasma glucose results greater than or equal to 126 mg/dL meet the criteria for diagnosis of diabetes. In the absence of unequivocal hyperglycemia, results should be confirmed by repeat testing. In a patient with classic symptoms of hyperglycemia or hyperglycemic crisis, random plasma glucose results greater than or equal to 200 mg/dL meet the criteria for diagnosis of diabetes. Reference: Standards of Medical Care in Diabetes 2016, [place] Diabetes Association. Diabetes Care. 2016.39(Suppl 1). LAB 3094-0(LOINC) BUN SerPl-mCnc 30 High 9-24 mg/dL LAB 2160-0(LOINC) Creat SerPl-mCnc 0.87 0.73-1.22 mg/dL LAB 2951-2(LOINC) Sodium SerPl-sCnc 135 Low 136-144 mmol/L LAB 2823-3(LOINC) Potassium SerPl-sCnc 4.2 3.7-5.1 mmol/L LAB 2075-0(LOINC) Chloride SerPl-sCnc 102 98-107 mmol/L LAB 2027-(LOINC) CO2 SerPl-sCnc 23 22-30 mmol/L LAB 11445-2(LOINC) Anion Gap SerPl-sCnc 10 8-15 mmol/L LAB 55512-2(LOINC) eGFRcr SerPlBld CKD-EPI 2020 101 >=60 mL/min/1. 73m??? Result Comment: Estimated Gl omerular Filtration Rate (eGFR) is calculated using the 2020 CKD-EPI creatinine equation. This equation utilizes serum creatinine, sex, and age as parameters. The creatinine assay has traceable calibration to isotope dilution-mass spectrometry. Refer to KDIGO guidelines for clinical interpretation. In patients with unstable renal function, e.g. those with acute kidney injury, the eGFR may not accurately reflect actual GFR. Performed By: #### [id number] # ### [facility] CLIA [id number] [address] [place] [address] STATES [place] [facility] CBC W AUTO DIFF BLD Collected: 04/05/2025 3:[address] atus: F Source: [facility] Order Comment: Specimen Type : BLOOD SPECIMEN Ordering Facility: [facility] Address: [address] [place] [address] TYPE CODE TESTS RESULT OUT OF RANGE REFERENCE UNITS LAB 6690-2(LOINC) WBC # Bld Auto 10.18 3.70-11.00 k/uL LAB 789-8(LOINC) RBC # Bld Auto 4.08 Low 4.20-6.00 m/ uL LAB 718-7(LOINC) Hgb Bld-mCnc 14.1 13.0-17.0 g/dL LAB 4544-3(LOINC) Hct VFr Bld Auto 39.9 39.0-51.0 % LAB 787-2(LOINC) MCV RBC Auto 97.8 80.0-100.0 fL LAB 785-6(LOINC) MCH RBC Qn Auto 34.6 High 26.0-34.0 p g LAB 786-4(LOINC) MCHC RBC Auto-mCnc 35.3 30.5-36.0 g/dL LAB 08601-0(LOINC) RDW RBC-Rto 15.3 High 11.5-15.0 % LAB 777-3(LOINC) Platelet # Bld Auto 95 Low 150-400 k/uL Result Comment: No clot dete cted. LAB 84421-9(INC) PMV Bld Auto 10.2 9.0-12.7 fL LAB 770-8(INC) Neutrophils/leuk NFr Bld Auto 92.3 % LAB 751-8(INC) Neutrophils # Bld Auto 9.40 High 1.45-7.50 k/uL LAB 736-9([facility]) Lymphocytes/leuk NFr Bld Auto 2.0 % LAB 731-0(INC) Lymphocytes # Bld Auto 0.20 Low 1.00-4.00 k/uL LAB 5905-5([facility]) Monocytes/leuk NFr Bld Auto 4.5 % LAB 742-7([facility]) Monocytes # Bld Auto 0.46 <0.87 k/uL LAB 713-8([facility]) Eosinophil/leuk NFr Bld Auto 0.0 % LAB 711-2([facility]) Eosinophil # Bld Auto <0.03 <0.46 k/uL LAB 706-2([facility]) Basophils/leuk NFr Bld Auto 0.1 % LAB 704-7([facility]) Basophils # Bld Auto <0.03 <0.11 k/uL LAB 52395-9([facility]) Imm Granulocytes/christina k NFr Bld Auto 1.1 % LAB 22099-8([facility]) Imm Granulocytes # Bld Auto 0.11 High <0.10 k/uL LAB 46277-0([facility]) nRBC/100 WBC Bld-Rto 0.0 /100 WBC LAB 771-6([facility]) nRBC # Bld Auto <0.01 <0.01 k/u L LAB 32748-5([facility]) Differential method Bld Auto Performed By: #### [id number] # ### [facility] CLIA [id number] [address] [place] [address] [place] CNOV Observed: 04/05/2025 2:30 PM Status: COMPLETED Source: [facility] Office Visit (NSCAMN) ANGEL KEATING ([id number]) 1970 [address] [facility] Date Time Provider Department 04/05/25 2:30 PM PATRICIA ENRIQUEZ [facility] During your visit today, we recorded the following information about you: Patricia Enriquez MD 04/06/2025 1:09 AM [facility] BRAIN TUMOR CENTER NEURO-ONCOLOGY CLINIC VISIT NOTE B [facility] Team: -Jose Evans MD, Neurosurgery -SAV Rodriguez, Radiation Oncology -Patricia Enriquez MD, Neuro-Oncology DIAGNOSIS: MGMT unmethylated Glioblastoma. 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 He initially presented with anxiety-attack like episodes going back to January 2023 as well as a fall, without loss of consciousness but +trauma to head around 02/27/2023. On 03/16/2023, he presented to [facility] ED with word finding difficulty, report of one-time fever of 101 in February, anxiety, increased thirst and urination and was found to have a L temporal mass with midline subfalcine shift concerning for high grade glioma. He was afebrile with normal glucose level and electrolytes. He underwent gross total resection by Dr. Evans on 03/19/2023, revealing an MGMT unmethylated glioblastoma, WHO Grade 4. He was discharged on keppra 750mg BID and dexamethasone taper. He established care with Dr. Enriquez and given paroxysmal episodes of anxiety, he was concerned about temporal lobe epilepsy and advised lifelong AED to reduce seizure risk. The patient was exhibiting some fatigue and dullness, so a cross taper from keppra to vimpat, with goal of vimpat 150mg BID. The patient expressed interest in clinical trials and enrolled onto [facility]. He was randomized to the CI7951 arm (cyclic peptide modulating tumor microenvironment). TREATMENT HISTORY Gross total resection [03/19/2023] [facility] Dr. Evans MGMT unmethylated Glioblastoma. L temporal GCAR SHAMIR, randomized to [id number] IV twice weekly arm + Standard concurrent chemotherapy and radiation (04/20- 05/29/2023) [facility] Dr. Joyce and Dr. Enriquez Adjuvant temozolomide PO D1-5 q 28 days C1 07/01/23, will start 07/03 150mg/m2 C2 07/27/23 C3 08/31/23 C4 09/21/23 C5 10/26/23 C6 11/23/23 C7 12/28/23 STOP ADJ TMZ as the clinical; trial calls for up to 6 cycles. For some reason the patient had an extra cycle of Adj TMZ. Adjuvant [id number] during Maintenance: Cycle 7 Week 1 - infusions on 12/14/2023 (D1) and 12/17/2023 (D4) Cycle 7 Week 2 - infusions on 12/21/2023 (D8) and 12/24/2023 (D11) Cycle 7 Week 3 - infusions on 12/28/2023 (D15) and 12/31/2023 (D18) Cycle 7 Week 4 - infusions on 01/05/2024 (D22) and 01/08/2024 (D25) Cycle 8 Week 5 - infusions on 01/11/2024 and 01/14/2024 02/08/2024: MRI shows progression 02/08/24 [facility] Referrals to se Dr. Evans for possible surgery. If surgery offered, he can be enrolled in CASE 3322 clinical trial with methimazole + chemo. 02/18/24: Dr Evans recommended NO surgery. 02/26/24 Lomustine 90mg/m2 C#1 02/25-04/08/24 04/12/24 Tumor progression, increased CBV 04/14/2024 [facility] Referrals to se Dr. Evans for possible surgery. The patient is also eligible, for CASE 3322 clinical trial with methimazole + chemo. 04/28/2024 Jose Evans MD since the patient, and recommended surgery. 04/28/2024 clinical trials team, saw the patient, the patient is eligible, for for CASE 3322 clinical trial with methimazole + chemo. Patient signed consent. Treatment plan: Pre-operative treatment Phase -Methimazole - Pre-Op period: 05/24/2024 to 05/27/2024 (last dose is DAY of surgery) -Dose level 2 (25 mg daily) Surgical resection 05/27/[address] 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 C1D1 (10-28 days after surgery) -Scheduled for 06/16/2024 (20 days post op) -Methimazole - Post-Op period: 05/27/2024- TBD -Dose level 2 (25 mg judy C1D1 lomustine 110 mg/m2 - 07/28/24 - NOTE DATE ENTERED IN ERROR - PATIENT DID NOT TAKE CHEMO ON 08/07/2024 C2D1 lomustine -- planned for 09/07/24 08/22/2024 Brain MR - new enhancing nodules. 08/29/2024 [facility] recommend to continue on lomustine, and SRS to enhancing nodules, which was completed. CORRECTED DATES OF CHEMO: C1D1 JUN 28, 2024 09/05/2024 NOTE: RE; DISCREPANCY ON LOMUSTINE CYCLE. The patient recalled that he had taken Lomustine cycle No 1 [after 2nd surgery (05/27/2024)] on ~mid June 2024 and that he was due for cycle No 2 for early August 2024 We reviewed the pharmacy records and indeed the patient took cycle No 1 of Lomustine on 06/28/25, and he was due for next cycle on ~Aug 12, 2024. Pharmacy note confirm that lomustine was delivered. Although per patient knowledge that he needed to start his chemo, cycle No 2 of lomustine on 1st week of Aug 2024 - however he did not started as he was instructed that the chemo was to start not until Sep 07, 2024. Hence the patient had not started his chemo. 09/05/2024: The patient brought lomustine capsules, cycle No 2, as he noted - issued on 08/05/2024 - which should have started on Aug 12, 2024. The reason for the discrepancy - likely entry data error of when he took cycle No 1 of lomustine - erroneously was entered as 07/28/2025. Lomustine 90mg/m2 C#2 09/05-10/17/24 September 19, 2024 - September 23, 2024 Dr Joyce SRS-GK: AREA TREATED: 1) Lt Temp 2) LT Ant Falx 3) Lt Sup Front 4) Lt Tent 5) Lt Temp 10/12/2024 MRI BRAIN WO/W Foci of nodular enhancement along the left temporal resection cavity are similar compared to 09/19/2024 (increased compared to 08/22/2024). Increased nonenhancing T2/FLAIR hyperintensity within the left temporal lobe compared to 08/22/2024. Lomustine 90mg/m2 C#3 10/21-12/02/24 11/16/2024 Brain MR. 1- CONTINUED GROWTH OF 2 NODULAR FOCI AT THE DEPTH OF LEFT TEMPORAL RESECTION CAVITY, DETAILED. THE LARGER SHOWS MODERATELY INCREASED CBV, SUSPICIOUS FOR PROGRESSION. 2. STABLE EXTRA-AXIAL ENHANCING LESION OVER LEFT MEDIAL FRONTAL LOBE, WITH REDUCED SIZE OF MORE LATERAL EXTRA-AXIAL LESION 3. REDUCED LEFT FRONTAL EPIDURAL HEMATOMA 4. NO NEW ACUTE PROCESS OR SUSPICIOUS ENHANCEMENT NOTE: Had MRI sooner than scheduled (11/30/2024), as the MR center called him asking if he wanted to have his MR sooner, as someone had canceled. 01/17/2025 Brain MR Evolving post therapy changes with progressive nodular enhancement and T2 signal abnormality in the medial left temporal lobe and insula, suspicious for progressive malignancy. 01/17/2025 Clinic visit: MRI changes probably treatment effect, recommend continue current treatment, lomustine. 01/24/2025: I reviewed the patients case/images with his oncology team, including Indu Blanchard his Radiation Oncologist, and with Dr. Evans, his neurosurgeon, and they agree with the approach to continue on the current management, that is lomustine,a and continue imaging surveillance. No need for any additional intervention at this juncture. Patricia Enriquez MD 02/28/2025 Brain MR Interval in size of nodular enhancement along the medial aspect of the resection cavity and significant interval increase in confluent T2/FLAIR hyperintensity. No elevated cerebral blood volume on the perfusion sequence to suggest neovascularity. Recommend short-term interval follow-up to exclude progressive disease. 03/02/2025 Clinic visit: MRI changes probably treatment effect, recommend continue current treatment, lomustine. 03/24/2025 - 03/31/2025 Admission (7 days) F [facility]; Admitted due to progressive right sided arm/leg weakness, and aphasia, mainly word finding difficulty. Improved on steroids. - 03/25/2025 Brain MR and increasing enhancing small lesions adjacent to the left half of the falx compatible with progressive disease. Interval increase in size of the enhancement in the left mesial temporal lobe and left intralenticular region with increased vasogenic edema. However no elevated CBV associated with this area. No evidence of leptomeningeal disease. -Seen by Dr. Evans, patient's neurosurgeon, recommended no surgery -Rad Onc also saw patient, recommend no radiation 03/27/2025 Brain Tumor Board: changes seen on MR 03/25/2025 favor treatment effect (tumor cannot be excluded with certainty). Agreed with bevacizumab (edwin), and to continue lomustine. 04/05/2025 1st infusion. bevacizumab (edwin) 10 mg/Kg every 2 weeks. April 05, 2025 HPI In person visit The patient is accompanied by mother. The patient says, that he is doing better, he is ambulating, and going up stairs using a cane, and a walker.has no known allergies. Trouble with word finding is still there but improving. He feels that his comprehension is okay. However he needs to think more to say what he wants to say. Denies fevers, headaches, nausea or vomiting He expresses a desire to remain functional for his daughter's wedding which is for the month of April 2025. Past Diagnostic Results: - (01/17/2025) MRI: Evolving post-therapy changes with progressive nodular enhancement and T2 signal; suspicious for progressive malignancy. - (11/2024) MRI: Comparison for January 2025 MRI. CHEMO: see above Steroids: 03/31/2025 open discharged from the hospital dexAMETHasone 6 mg tablet Commonly known as: DECADRON Take 1 tablet by mouth two times a day with meals. Antiseizure medications: lacosamide 150 mg Tab Commonly known as: VIMPAT Take 1 tablet by mouth two times a day for 180 days. PHYSICAL EXAMINATION: - Neurological: - CNII: Visual land intact. - CNIII/CNIV/CNVI: Extraocular movements intact. - CNV: Sensation intact. - CNVII: Facial movements intact. - CNIX/CNX: Palate elevation intact. - CNXI: Shoulder shrug strength intact. - Motor: No atrophy or asymmetry noted. - Strength: - Arms: - Deltoids: Left: 5/5, Right: 5/5 - Biceps: Left: 5/5, Right: 5/5 - Triceps: Left: 5/5, Right: 5/5 - Lower Extremities: - Hip Flexors: Left: 5/5, Right: 5/5 - Hip Extensors: Left: 5/5, Right: 5/5 - Knee Flexion: Left: 5/5, Right: 5/5 - Knee Extension: Left: 5/5, Right: 5/5 - Ankle Dorsiflexion: Left: 5/5, Right: 5/5 - Ankle Plantarflexion: Left: 5/5, Right: 5/5 - Reflexes: - Arms: - Triceps: Left: 2+, Right: 2+ - Biceps: Left: 2+, Right: 2+ - Brachioradialis: Left: 2+, Right: 2+ - Lower Extremities: - Patella: Left: 2+, Right: 2+ - Achilles: Left: 2+, Right: 2+ - Babinski: Left: Downgoing, Right: Downgoing - Sensation: Intact to light touch and pinprick. - Coordination: Qkrysy-po-cawk and bbve-pj-tnuy testing intact. - Gait: Normal. Imaging: MRI Report MRI BRAIN WO/W IVCON Exam End: 03/25/2025 9:02 AM (Final result) Narrative: * * *Final Report* * * DATE OF EXAM: Mar 25 2025 9:02AM QBM [id number] - MRI BRAIN WO/W IVCON / PROCEDURE REASON: Brain/PATENT PARALEGAL neoplasm, assess treatment response * * * * Physician Interpretation * * * * EXAMINATION: MRI BRAIN WO/W IVCON CLINICAL HISTORY: GBM. TECHNIQUE: Routine brain MRI protocol without and with contrast including diffusion images. Perfusion with gadolinium. MQ: [id number] Contrast: 18 mL dotarem IV COMPARISON: MRI brain from February 28, 2025 RESULT: Postop: Status post left temporal craniotomy. Again noted is heterogeneous susceptibility artifact and a fluid fluid level in the left middle cranial fossa from prior resection. Small amount of subgaleal blood byproducts are also identified superficial to the temporal craniotomy. Acute Change: There is no evidence of restricted diffusion to suggest an acute infarct. Hemorrhage: Again noted are hemorrhagic blood byproducts in the left middle cranial fossa resection site. Mass Lesion/ Mass Effect: There is interval increase in size of the residual enhancing lesion involving the remaining left amygdala and left hippocampal head and also extends superiorly into the left external capsule and left putamen. Overall size of this enhancing lesion is 2.3 x 2.7 x 2.0 cm up from 2.5 x 2.2 x 1.3 cm. The vasogenic edema on T2 and FLAIR throughout the residual left temporal lobe, left insula and left frontal lobe have markedly increased in the interim. Edema now extends into the posterior limb internal capsule and lateral aspect of left thalamus. There is interval increase in size in the focus of enhancement adjacent to the falx and left medial superior frontal gyrus now measuring 7 x 10 x 14 mm (series 16 image 23 and series 17 image 26) up from 5 x 8 x 13 mm. There is also a new lesion along the left aspect of the falx which measures 7 x 3 x 14 mm (series 16 image 18; series 17 image 19). No evidence of leptomeningeal disease. No elevated CBV on perfusion exam. No significant mass effect. Chronic Change: The white matter is within normal limits of signal intensity for age. Parenchyma: No significant volume loss for age. The brain parenchyma is otherwise within normal limits of signal intensity and morphology. Ventricles: Normal caliber and morphology. Skull Base: Hypothalamic and pituitary region are grossly normal. Craniocervical junction is normal. No significant marrow replacement process. Vasculature: Major intracranial arterial structures, and dural venous sinuses show typical flow void, suggesting patency by spin echo criteria. Other: The visualized paranasal sinuses and mastoid air cells are clear. The orbits and extracranial soft tissues are unremarkable. Impression: IMPRESSION: New and increasing enhancing small lesions adjacent to the left half of the falx compatible with progressive disease. Interval increase in size of the enhancement in the left mesial temporal lobe and left intralenticular region with increased vasogenic edema. However no elevated CBV associated with this area. No evidence of leptomeningeal disease. Call Worker Person: EMILI Transcribe Date/Time: Mar 25 2025 9:00A Dictated by : GUNJAN HONEYCUTT MD This examination was interpreted and the report reviewed and electronically signed by: GUNJAN HONEYCUTT MD on Mar 25 2025 9:11AM EST Assessment AND Plan 1. Glioblastoma (HCC) (C71.9) 1A. Encounter for antineoplastic chemotherapy (Z51.11) - The patient relates lomustine 90mg/m2 C#6 03/09-04/20/25 - As this is his 6/6 cycles of lomustine, we will stop here, in light, that the MRI changes, and likely treatment effect. Will proceed to treat the patient only with bevacizumab, and we will do the progressive chemo regimen in February, at that point can exclude active tumor completely. -The plan is to initiate bevacizumab, 10 mg/kg, every 2 weeks. - The patient will need to have, repeat CBC, CMP, and also protein in urine, this test, will be done on every infusion. -1st infusion 04/05/2025. -MRI brain w and w/o and perfusion is scheduled for 04/18/2025 - Tentative appointment for bevacizumab, on 04/19/2025 - Return clinic visit in person, scheduled for 04/20/2025 3. Seizures (HCC) (R56.9) 4. Seizure disorder (HCC) (G40.909) - Seizures well-controlled on lacosamide 150 mg BID; no recent seizure activity reported. - Continue current anticonvulsant therapy. 5. Psoriasis (L40.9) - Chronic scaly, flaky rashes reported on scalp, chest, arms, and legs. - Advised patient to document and upload photos of rashes to [facility] for further evaluation. In the end the patient and family verbalized understanding of the above, they had questions which I believe I answered to their satisfaction and agreed with these recommendations and had no further questions or concerns for the moment, but I encourage them to call the [facility] with any questions or concerns. I spent a total of 30 minutes on the date of the service which included preparing to see the patient, at least 50% of [id number] patient care, completing clinical documentation, obtaining and/or reviewing separately obtained history, performing a medically appropriate examination, counseling and educating the patient/family/caregiver, ordering medications, tests, or procedures, communicating with other HCPs (not separately reported), independently interpreting results (not separately reported), communicating results to the patient/family/caregiver and care coordination (not separately reported). High MDM. Patricia Enriquez MD [facility] Patient Care Team: -Jose Evans MD, Neurosurgery, [facility], [facility], [facility] Cyndee Joyce MD, PhD, Radiation Oncology, [facility], [facility], [facility]. Jaclyn Guillory, JULIO as Pull Worker (Hematology/Oncology) Soraida Simmons RN (Hospice AND Palliative Medicine) Willy Lion MD (Hospice AND Palliative Medicine) Rupa Khoury APRN.EDSON (Hospice AND Palliative Medicine) Daniel Juárez PSYD, Psychology, [facility] Referring Provider: PATRICIA ENRIQUEZ [[id number]] Allergies As of Date: 04/05/2025 (No Known Allergies) Date Reviewed: 04/05/2025 Reviewed by: Marylou Sutton, VAZQUEZ - Fully Assessed Primary Visit Diagnosis:Chemotherapy management, encounter for [Z51.11] Other Visit Diagnoses:Encounter for chemotherapy management [Z51.11] Thrombocytosis [D75.839] Psoriasis [L40.9] GBM (glioblastoma multiforme) (HCC) [C71.9] Prophylaxis for chemotherapy-induced neutropenia [Z76.89] 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] Glioblastoma (HCC) [C71.9] Seizures (HCC) [R56.9] Encounter for antineoplastic chemotherapy [Z51.11] Herpes zoster with complication [B02.8] Insomnia, unspecified type [G47.00] High grade glioma not classifiable by WHO criteria (HCC) [C71.9] Examination of participant in clinical trial [Z00.6] Chemotherapy-induced nausea [R11.0, T45.1X5A] Need for pneumocystis prophylaxis [Z29.89] Forehead pain [R51.9] Brain tumor (HCC) [D49.6] At risk of seizures [Z91.89] Seizure disorder (HCC) [G40.909] Other fatigue [R53.83] Nausea and vomiting, unspecified vomiting type [R11.2] Malnutrition, unspecified type (HCC) [E46] Prescriptions as of 04/06/2025 - dexAMETHasone (DECADRON) 2 mg tablet decrease to 10 mg daily starting on 04/06 - [employer] kit Outpatient physical therapy - atovaquone (MEPRON) 750 mg/5 mL oral liquid Take 10 mL by mouth daily with breakfast. - dexAMETHasone (DECADRON) 6 mg tablet Take 1 tablet by mouth two times a day with meals. - lacosamide (VIMPAT) 150 mg tab Take 1 tablet by mouth two times a day for 180 days. - valACYclovir (VALTREX) 500 mg tablet Take 1 tablet by mouth once daily. - traZODone (DESYREL) 50 mg tablet TAKE 1 TABLET BY MOUTH EVERYDAY AT BEDTIME - pantoprazole DR (PROTONIX) 40 mg tablet Take 1 tablet by mouth once daily. - ondansetron (ZOFRAN) 8 mg tablet Take one tablet by mouth on an empty stomach in the evening one hour prior to chemo. Then take one tablet 24 hours after chemo. May repeat dose every 8-12 hours if needed to prevent nausea - midazolam (NAYZILAM) 5 mg/spray (0.1 mL) nasal spray Use 1 [place] in the nose as needed for up to 10 days. May repeat dose in alternate nostril after 10 minutes based on response and tolerability. - acetaminophen (TYLENOL) 325 mg tablet 2 tablets by ORAL/FEEDING TUBE route every 4 hours as needed for pain. Problem List As Of Date 04/05/2025 Noted Resolved Chest pain [R07.9] 04/25/2010 05/26/2024 Brain mass [G93.89] 03/17/2023 11/17/2023 Obesity, Class I, BMI 30-34.9 [E66.811] 03/17/2023 Brain compression (HCC) [G93.5] 03/20/2023 S/P brain surgery [Z98.890] 03/20/2023 11/17/2023 At risk for seizures [Z91.89] 03/20/2023 Cerebral edema (HCC) [G93.6] 03/20/2023 GBM (glioblastoma multiforme) (HCC) [C71.9] 04/07/2023 Syncope, unspecified syncope type [R55] 11/01/2023 11/03/2023 Examination of participant in clinical trial [Z*11/05/2023 11/17/2023 Forehead pain [R51.9] 11/05/2023 PONV (postoperative nausea and vomiting) [R11.2*05/26/2024 Acute post-operative pain [G89.18] 05/29/2024 Thrombocytopenia [D69.6] 10/13/2024 Vasogenic edema (HCC) [G93.6] 03/24/2025 Malnutrition of mild degree (HCC) [E44.1] 03/24/2025 Glioblastoma (HCC) [C71.9] 03/28/2025 Encounter Status:Closed by PATRICIA ENRIQUEZ on 04/06/25 CNPN Observed: 04/05/2025 12:00 AM Status: COMPLETED Source: [facility] ANGEL KEATING ([id number]) 1970 M [facility] Date Time Provider Department 04/05/25 [facility]IC[facility]QUEZ [facility] During your visit today, we recorded the following information about you: Tona Cobos, RN 04/05/2025 4:41 PM Signed Scheduling Request - New Patient Time Frame: 2 weeks or best Orders: Consult to behavioral health Provider or Provider Group: Dr Pizarro or appropriate provider Visit type: Provider preference Referring: Dr Fraire Diagnosis: glioblastoma, depression Patient is coming to on 04/20 if able to coordinate- lives in [place] 04/06/2025 12:23 PM Signed Spoke to Pt, he was unable to schedule at this time and asked if I could send him a Demeure message with the scheduling line # and he will call at his convenience to schedule his consult in oncology behavioral health. Allergies As of Date: 04/05/2025 (No Known Allergies) Date Reviewed: 04/05/2025 Reviewed by: Marylou Sutton RN - Fully Assessed Reason for Visit: JUANCARLOS 2 weeks or best [Other] Prescriptions as of 04/06/2025 - dexAMETHasone (DECADRON) 2 mg tablet decrease to 10 mg daily starting on 04/06 - [facility] [employer] kit Outpatient physical therapy - atovaquone (MEPRON) 750 mg/5 mL oral liquid Take 10 mL by mouth daily with breakfast. - dexAMETHasone (DECADRON) 6 mg tablet Take 1 tablet by mouth two times a day with meals. - lacosamide (VIMPAT) 150 mg tab Take 1 tablet by mouth two times a day for 180 days. - valACYclovir (VALTREX) 500 mg tablet Take 1 tablet by mouth once daily. - traZODone (DESYREL) 50 mg tablet TAKE 1 TABLET BY MOUTH EVERYDAY AT BEDTIME - pantoprazole DR (PROTONIX) 40 mg tablet Take 1 tablet by mouth once daily. - ondansetron (ZOFRAN) 8 mg tablet Take one tablet by mouth on an empty stomach in the evening one hour prior to chemo. Then take one tablet 24 hours after chemo. May repeat dose every 8-12 hours if needed to prevent nausea - midazolam (NAYZILAM) 5 mg/spray (0.1 mL) nasal spray Use 1 [place] in the nose as needed for up to 10 days. May repeat dose in alternate nostril after 10 minutes based on response and tolerability. - acetaminophen (TYLENOL) 325 mg tablet 2 tablets by ORAL/FEEDING TUBE route every 4 hours as needed for pain. Problem List As Of Date 04/05/2025 Noted Resolved Chest pain [R07.9] 04/25/2010 05/26/2024 Brain mass [G93.89] 03/17/2023 11/17/2023 Obesity, Class I, BMI 30-34.9 [E66.811] 03/17/2023 Brain compression (HCC) [G93.5] 03/20/2023 S/P brain surgery [Z98.890] 03/20/2023 11/17/2023 At risk for seizures [Z91.89] 03/20/2023 Cerebral edema (HCC) [G93.6] 03/20/2023 GBM (glioblastoma multiforme) (HCC) [C71.9] 04/07/2023 Syncope, unspecified syncope type [R55] 11/01/2023 11/03/2023 Examination of participant in clinical trial [Z*11/05/2023 11/17/2023 Forehead pain [R51.9] 11/05/2023 PONV (postoperative nausea and vomiting) [R11.2*05/26/2024 Acute post-operative pain [G89.18] 05/29/2024 Thrombocytopenia [D69.6] 10/13/2024 Vasogenic edema (HCC) [G93.6] 03/24/2025 Malnutrition of mild degree (HCC) [E44.1] 03/24/2025 Glioblastoma (HCC) [C71.9] 03/28/2025 Encounter Status:Closed by CATRACHITA CASTELAN on 04/06/25 CNPN Observed: 04/04/2025 12:00 AM Status: COMPLETED Source: [facility] Telephone ([facility]) ANGEL KEATING ([id number]) 1970 M [facility] Date Time Provider Department 04/04/25 [employer]IGATOR DURAN [employer] During your visit today, we recorded the following information about you: Tona Martinez 04/04/2025 11:27 AM Signed Patient is active with [employer] PPO, LOC 80%, $2500 deductible has $0 remaining, $5000 OOP has $0 remaining. Estimate shows patient financial responsibility is $0 for each treatment in 2024 until oop max is reached. Called the patient to discuss, left a voicemail to return call AND sent via [employer] ([place]). Reference #[id number] Allergies As of Date: 04/04/2025 (No Known Allergies) Date Reviewed: 03/31/2025 Reviewed by: Saba Chang RN - Fully Assessed Reason for Visit: Benefits Investigation [8149] Prescriptions as of 04/04/2025 - Miscellaneous Medical Supply kit Outpatient physical therapy - atovaquone (MEPRON) 750 mg/5 mL oral liquid Take 10 mL by mouth daily with breakfast. - dexAMETHasone (DECADRON) 6 mg tablet Take 1 tablet by mouth two times a day with meals. - lacosamide (VIMPAT) 150 mg tab Take 1 tablet by mouth two times a day for 180 days. - valACYclovir (VALTREX) 500 mg tablet Take 1 tablet by mouth once daily. - lomustine (GLEOSTINE) 100 mg capsule Take one 8mg Zofran on an empty stomach in the evening. Wait ONE hour. Take TWO 100mg capsule(s) Lomustine by mouth for a total dose of 200mg. Take one 8 mg Zofran twenty-four hours later. Take on Day 1 of each 42 day cycle. - traZODone (DESYREL) 50 mg tablet TAKE 1 TABLET BY MOUTH EVERYDAY AT BEDTIME - pantoprazole DR (PROTONIX) 40 mg tablet Take 1 tablet by mouth once daily. - ondansetron (ZOFRAN) 8 mg tablet Take one tablet by mouth on an empty stomach in the evening one hour prior to chemo. Then take one tablet 24 hours after chemo. May repeat dose every 8-12 hours if needed to prevent nausea - midazolam (NAYZILAM) 5 mg/spray (0.1 mL) nasal spray Use 1 [place] in the nose as needed for up to 10 days. May repeat dose in alternate nostril after 10 minutes based on response and tolerability. - acetaminophen (TYLENOL) 325 mg tablet 2 tablets by ORAL/FEEDING TUBE route every 4 hours as needed for pain. Problem List As Of Date 04/04/2025 Noted Resolved Chest pain [R07.9] 04/25/2010 05/26/2024 Brain mass [G93.89] 03/17/2023 11/17/2023 Obesity, Class I, BMI 30-34.9 [E66.811] 03/17/2023 Brain compression (HCC) [G93.5] 03/20/2023 S/P brain surgery [Z98.890] 03/20/2023 11/17/2023 At risk for seizures [Z91.89] 03/20/2023 Cerebral edema (HCC) [G93.6] 03/20/2023 GBM (glioblastoma multiforme) (HCC) [C71.9] 04/07/2023 Syncope, unspecified syncope type [R55] 11/01/2023 11/03/2023 Examination of participant in clinical trial [Z*11/05/2023 11/17/2023 Forehead pain [R51.9] 11/05/2023 PONV (postoperative nausea and vomiting) [R11.2*05/26/2024 Acute post-operative pain [G89.18] 05/29/2024 Thrombocytopenia [D69.6] 10/13/2024 Vasogenic edema (HCC) [G93.6] 03/24/2025 Malnutrition of mild degree (HCC) [E44.1] 03/24/2025 Glioblastoma (HCC) [C71.9] 03/28/2025 Encounter Status:Closed by TONA MARTINEZ on 04/04/25 PROGRESS Observed: 04/03/2025 1:28 PM Status: COMPLETED Source: [facility] HNO ID: [id number] Author: PATRICIA ENRIQUEZ MD Service: ? Author Type: Physician Type: Progress Notes Filed: 04/06/2025 01:01 Note Text: [facility] BRAIN TUMOR CENTER NEURO-ONCOLOGY VIRTUAL VISIT NOTE This is a virtual visit using HIPAA compliant audio platform. It required patient-provider interaction for the medical decision making as documented below. I have communicated my name and active licensure. The patient's identity and physical location were verified at the time of this visit. Either the patient or their legal personal service representative has been informed of the risks and benefits of -- and alternatives to -- treatment through a remote evaluation and consents to proceed with the evaluation remotely. [facility] Team: -Jose Evans MD, Neurosurgery -SAV Rodriguez, Radiation Oncology -Patricia Enriquez MD, Neuro-Oncology DIAGNOSIS: MGMT unmethylated Glioblastoma. 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 He initially presented with anxiety-attack like episodes going back to January 2023 as well as a fall, without loss of consciousness but +trauma to head around 02/27/2023. On 03/16/2023, he presented to [facility] ED with word finding difficulty, report of one-time fever of 101 in February, anxiety, increased thirst and urination and was found to have a L temporal mass with midline subfalcine shift concerning for high grade glioma. He was afebrile with normal glucose level and electrolytes. He underwent gross total resection by Dr. Evans on 03/19/2023, revealing an MGMT unmethylated glioblastoma, WHO Grade 4. He was discharged on keppra 750mg BID and dexamethasone taper. He established care with Dr. Enriquez and given paroxysmal episodes of anxiety, he was concerned about temporal lobe epilepsy and advised lifelong AED to reduce seizure risk. The patient was exhibiting some fatigue and dullness, so a cross taper from keppra to vimpat, with goal of vimpat 150mg BID. The patient expressed interest in clinical trials and enrolled onto [facility] AG[facility]. He was randomized to the [id number] arm (cyclic peptide modulating tumor microenvironment). TREATMENT HISTORY Gross total resection [03/19/2023] [facility] Dr. Evans MGMT unmethylated Glioblastoma. L temporal [facility] AGILE, randomized to [id number] IV twice weekly arm + Standard concurrent chemotherapy and radiation (04/20- 05/29/2023) [facility] Dr. Joyce and Dr. Enriquez Adjuvant temozolomide PO D1-5 q 28 days C1 07/01/23, will start 07/03 150mg/m2 C2 07/27/23 C3 08/31/23 C4 09/21/23 C5 10/26/23 C6 11/23/23 C7 12/28/23 STOP ADJ TMZ as the clinical; trial calls for up to 6 cycles. For some reason the patient had an extra cycle of Adj TMZ. Adjuvant [id number] during Maintenance: Cycle 7 Week 1 - infusions on 12/14/2023 (D1) and 12/17/2023 (D4) Cycle 7 Week 2 - infusions on 12/21/2023 (D8) and 12/24/2023 (D11) Cycle 7 Week 3 - infusions on 12/28/2023 (D15) and 12/31/2023 (D18) Cycle 7 Week 4 - infusions on 01/05/2024 (D22) and 01/08/2024 (D25) Cycle 8 Week 5 - infusions on 01/11/2024 and 01/14/2024 02/08/2024: MRI shows progression 02/08/24 B[facility] Referrals to se Dr. Evans for possible surgery. If surgery offered, he can be enrolled in CASE 3322 clinical trial with methimazole + chemo. 02/18/24: Dr Evans recommended NO surgery. 02/26/24 Lomustine 90mg/m2 C#1 02/25-04/08/24 04/12/24 Tumor progression, increased CBV 04/14/2024 BTB Referrals to se Dr. Evans for possible surgery. The patient is also eligible, for CASE 3322 clinical trial with methimazole + chemo. 04/28/2024 Jose Evans MD since the patient, and recommended surgery. 04/28/2024 clinical trials team, saw the patient, the patient is eligible, for for CASE 3322 clinical trial with methimazole + chemo. Patient signed consent. Treatment plan: Pre-operative treatment Phase -Methimazole - Pre-Op period: 05/24/2024 to 05/27/2024 (last dose is DAY of surgery) -Dose level 2 (25 mg daily) Surgical resection 05/27/[address] 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 C1D1 (10-28 days after surgery) -Scheduled for 06/16/2024 (20 days post op) -Methimazole - Post-Op period: 05/27/2024- TBD -Dose level 2 (25 mg judy C1D1 lomustine 110 mg/m2 - 07/28/24 - NOTE DATE ENTERED IN ERROR - PATIENT DID NOT TAKE CHEMO ON 08/07/2024 C2D1 lomustine -- planned for 09/07/24 08/22/2024 Brain MR - new enhancing nodules. 08/29/2024 BTB recommend to continue on lomustine, and SRS to enhancing nodules, which was completed. CORRECTED DATES OF CHEMO: C1D1 JUN 28, 2024 09/05/2024 NOTE: RE; DISCREPANCY ON LOMUSTINE CYCLE. The patient recalled that he had taken Lomustine cycle No 1 [after 2nd surgery (05/27/2024)] on ~mid June 2024 and that he was due for cycle No 2 for early August 2024 We reviewed the pharmacy records and indeed the patient took cycle No 1 of Lomustine on 06/28/25, and he was due for next cycle on ~Aug 12, 2024. Pharmacy note confirm that lomustine was delivered. Although per patient knowledge that he needed to start his chemo, cycle No 2 of lomustine on 1st week of Aug 2024 - however he did not started as he was instructed that the chemo was to start not until Sep 07, 2024. Hence the patient had not started his chemo. 09/05/2024: The patient brought lomustine capsules, cycle No 2, as he noted - issued on 08/05/2024 - which should have started on Aug 12, 2024. The reason for the discrepancy - likely entry data error of when he took cycle No 1 of lomustine - erroneously was entered as 07/28/2025. Lomustine 90mg/m2 C#2 09/05-10/17/24 September 19, 2024 - September 23, 2024 Dr Joyce SRS-GK: AREA TREATED: 1) Lt Temp 2) LT Ant Falx 3) Lt Sup Front 4) Lt Tent 5) Lt Temp 10/12/2024 MRI BRAIN WO/W Foci of nodular enhancement along the left temporal resection cavity are similar compared to 09/19/2024 (increased compared to 08/22/2024). Increased nonenhancing T2/FLAIR hyperintensity within the left temporal lobe compared to 08/22/2024. Lomustine 90mg/m2 C#3 10/21-12/02/24 11/16/2024 Brain MR. 1- CONTINUED GROWTH OF 2 NODULAR FOCI AT THE DEPTH OF LEFT TEMPORAL RESECTION CAVITY, DETAILED. THE LARGER SHOWS MODERATELY INCREASED CBV, SUSPICIOUS FOR PROGRESSION. 2. STABLE EXTRA-AXIAL ENHANCING LESION OVER LEFT MEDIAL FRONTAL LOBE, WITH REDUCED SIZE OF MORE LATERAL EXTRA-AXIAL LESION 3. REDUCED LEFT FRONTAL EPIDURAL HEMATOMA 4. NO NEW ACUTE PROCESS OR SUSPICIOUS ENHANCEMENT NOTE: Had MRI sooner than scheduled (11/30/2024), as the MR center called him asking if he wanted to have his MR sooner, as someone had canceled. 01/17/2025 Brain MR Evolving post therapy changes with progressive nodular enhancement and T2 signal abnormality in the medial left temporal lobe and insula, suspicious for progressive malignancy. 01/17/2025 Clinic visit: MRI changes probably treatment effect, recommend continue current treatment, lomustine. 01/24/2025: I reviewed the patients case/images with his oncology team, including Indu Blanchard his Radiation Oncologist, and with Dr. Evans, his neurosurgeon, and they agree with the approach to continue on the current management, that is lomustine,a and continue imaging surveillance. No need for any additional intervention at this juncture. Patricia Enriquez MD 02/28/2025 Brain MR Interval in size of nodular enhancement along the medial aspect of the resection cavity and significant interval increase in confluent T2/FLAIR hyperintensity. No elevated cerebral blood volume on the perfusion sequence to suggest neovascularity. Recommend short-term interval follow-up to exclude progressive disease. 03/02/2025 Clinic visit: MRI changes probably treatment effect, recommend continue current treatment, lomustine. 03/24/2025 - 03/31/2025 Admission (7 days) [facility]; Admitted due to progressive right sided arm/leg weakness, and aphasia, mainly word finding difficulty. Improved on steroids. - 03/25/2025 Brain MR and increasing enhancing small lesions adjacent to the left half of the falx compatible with progressive disease. Interval increase in size of the enhancement in the left mesial temporal lobe and left intralenticular region with increased vasogenic edema. However no elevated CBV associated with this area. No evidence of leptomeningeal disease. -Seen by Dr. Evans, patient's neurosurgeon, recommended no surgery -Rad Onc also saw patient, recommend no radiation 03/27/2025 Brain Tumor Board: changes seen on MR 03/25/2025 favor treatment effect (tumor cannot be excluded with certainty). Agreed with bevacizumab (edwin), and to continue lomustine. April 03, 2025 HPI Virtual visit - AUDIO ONLY. Patient could not log on the video. The patient is accompanied by mother. The patient is currently at home The patient says, that he is doing better, he is ambulating, and going up stairs using a cane, and a walker.has no known allergies. Trouble with word finding is still there but improving. He feels that his comprehension is okay. However he needs to think more to say what he wants to say. Denies fevers, headaches, nausea or vomiting, no He expresses a desire to remain functional for his daughter's wedding which is for the month of April 2025. The plan is for the patient to go on bevacizumab, on April 01, 2025, however, his insurance was thought to be out of network, but is not the case, so at this point his bevacizumab has not been approved, by [facility], so once that occurs, we will bring the patient to the infusion center, although we will leave the April 05 appointment as it is. I told the patient, there is best to wait a couple of the days, so he does not get a bill, for the services provided at [facility] when those are supposed to be covered by his medical insurance. Past Diagnostic Results: - (01/17/2025) MRI: Evolving post-therapy changes with progressive nodular enhancement and T2 signal; suspicious for progressive malignancy. - (11/2024) MRI: Comparison for January 2025 MRI. CHEMO: see above Steroids: 03/31/2025 open discharged from the hospital dexAMETHasone 6 mg tablet Commonly known as: DECADRON Take 1 tablet by mouth two times a day with meals. Antiseizure medications: lacosamide 150 mg Tab Commonly known as: VIMPAT Take 1 tablet by mouth two times a day for 180 days. PHYSICAL EXAMINATION: - Neurological: - CNII: Visual land intact. - CNIII/CNIV/CNVI: Extraocular movements intact. - CNV: Sensation intact. - CNVII: Facial movements intact. - CNIX/CNX: Palate elevation intact. - CNXI: Shoulder shrug strength intact. - Motor: No atrophy or asymmetry noted. - Strength: - Arms: - Deltoids: Left: 5/5, Right: 5/5 - Biceps: Left: 5/5, Right: 5/5 - Triceps: Left: 5/5, Right: 5/5 - Lower Extremities: - Hip Flexors: Left: 5/5, Right: 5/5 - Hip Extensors: Left: 5/5, Right: 5/5 - Knee Flexion: Left: 5/5, Right: 5/5 - Knee Extension: Left: 5/5, Right: 5/5 - Ankle Dorsiflexion: Left: 5/5, Right: 5/5 - Ankle Plantarflexion: Left: 5/5, Right: 5/5 - Reflexes: - Arms: - Triceps: Left: 2+, Right: 2+ - Biceps: Left: 2+, Right: 2+ - Brachioradialis: Left: 2+, Right: 2+ - Lower Extremities: - Patella: Left: 2+, Right: 2+ - Achilles: Left: 2+, Right: 2+ - Babinski: Left: Downgoing, Right: Downgoing - Sensation: Intact to light touch and pinprick. - Coordination: [id number] and asnj-tj-[id number] testing intact. - Gait: Normal. Imaging: MRI Report MRI BRAIN WO/W IVCON Exam End: 03/25/2025 9:02 AM (Final result) Narrative: * * *Final Report* * * DATE OF EXAM: Mar 25 2025 9:02AM QBM [id number] - MRI BRAIN WO/W IVCON / PROCEDURE REASON: Brain/PATENT PARALEGAL neoplasm, assess treatment response * * * * Physician Interpretation * * * * EXAMINATION: MRI BRAIN WO/W IVCON CLINICAL HISTORY: GBM. TECHNIQUE: Routine brain MRI protocol without and with contrast including diffusion images. Perfusion with gadolinium. MQ: [id number] Contrast: 18 mL dotarem IV COMPARISON: MRI brain from February 28, 2025 RESULT: Postop: Status post left temporal craniotomy. Again noted is heterogeneous susceptibility artifact and a fluid fluid level in the left middle cranial fossa from prior resection. Small amount of subgaleal blood byproducts are also identified superficial to the temporal craniotomy. Acute Change: There is no evidence of restricted diffusion to suggest an acute infarct. Hemorrhage: Again noted are hemorrhagic blood byproducts in the left middle cranial fossa resection site. Mass Lesion/ Mass Effect: There is interval increase in size of the residual enhancing lesion involving the remaining left amygdala and left hippocampal head and also extends superiorly into the left external capsule and left putamen. Overall size of this enhancing lesion is 2.3 x 2.7 x 2.0 cm up from 2.5 x 2.2 x 1.3 cm. The vasogenic edema on T2 and FLAIR throughout the residual left temporal lobe, left insula and left frontal lobe have markedly increased in the interim. Edema now extends into the posterior limb internal capsule and lateral aspect of left thalamus. There is interval increase in size in the focus of enhancement adjacent to the falx and left medial superior frontal gyrus now measuring 7 x 10 x 14 mm (series 16 image 23 and series 17 image 26) up from 5 x 8 x 13 mm. There is also a new lesion along the left aspect of the falx which measures 7 x 3 x 14 mm (series 16 image 18; series 17 image 19). No evidence of leptomeningeal disease. No elevated CBV on perfusion exam. No significant mass effect. Chronic Change: The white matter is within normal limits of signal intensity for age. Parenchyma: No significant volume loss for age. The brain parenchyma is otherwise within normal limits of signal intensity and morphology. Ventricles: Normal caliber and morphology. Skull Base: Hypothalamic and pituitary region are grossly normal. Craniocervical junction is normal. No significant marrow replacement process. Vasculature: Major intracranial arterial structures, and dural venous sinuses show typical flow void, suggesting patency by spin echo criteria. Other: The visualized paranasal sinuses and mastoid air cells are clear. The orbits and extracranial soft tissues are unremarkable. Impression: IMPRESSION: New and increasing enhancing small lesions adjacent to the left half of the falx compatible with progressive disease. Interval increase in size of the enhancement in the left mesial temporal lobe and left intralenticular region with increased vasogenic edema. However no elevated CBV associated with this area. No evidence of leptomeningeal disease. Call Worker Person: [facility] Transcribe Date/Time: Mar 25 2025 9:00A Dictated by : GUNJAN HONEYCUTT MD This examination was interpreted and the report reviewed and electronically signed by: GUNJAN HONEYCUTT MD on Mar 25 2025 9:11AM EST Assessment AND Plan 1. Glioblastoma (HCC) (C71.9) 1A. Encounter for antineoplastic chemotherapy (Z51.11) - The patient relates lomustine 90mg/m2 C#6 03/09-04/20/25 - As this is his 6/6 cycles of lomustine, we will stop here, in light, that the MRI changes, and likely treatment effect. Will proceed to treat the patient only with bevacizumab, and we will do the progressive chemo regimen in February, at that point can exclude active tumor completely. -The plan is to initiate bevacizumab, 10 mg/kg, every 2 weeks. - The patient will need to have, repeat CBC, CMP, and also protein in urine, this test, will be done on every infusion. -Tentative appointment, for bevacizumab infusion on 04/05/2025. The plan is for the patient to go on bevacizumab, on April 01, 2025, however, his insurance was thought to be out of network, but is not the case, so at this point his bevacizumab has not been approved, by [facility], so once that occurs, we will bring the patient to the infusion center, although we will leave the April 05 appointment as it is. I told the patient, there is best to wait a couple of the days, so he does not get a bill, for the services provided at [facility] when those are supposed to be covered by his medical insurance. -MRI brain w and w/o and perfusion is scheduled for 04/18/2025 - Tentative appointment for bevacizumab, on 04/19/2025 - Return clinic visit in person, scheduled for 04/20/2025 3. Seizures (HCC) (R56.9) 4. Seizure disorder (HCC) (G40.909) - Seizures well-controlled on lacosamide 150 mg BID; no recent seizure activity reported. - Continue current anticonvulsant therapy. 5. Psoriasis (L40.9) - Chronic scaly, flaky rashes reported on scalp, chest, arms, and legs. - Advised patient to document and upload photos of rashes to [facility] for further evaluation. In the end the patient and family verbalized understanding of the above, they had questions which I believe I answered to their satisfaction and agreed with these recommendations and had no further questions or concerns for the moment, but I encourage them to call the [facility] with any questions or concerns. I spent a total of 30 minutes on the date of the service which included preparing to see the patient, at least 50% of [id number] patient care, completing clinical documentation, obtaining and/or reviewing separately obtained history, performing a medically appropriate examination, counseling and educating the patient/family/caregiver, ordering medications, tests, or procedures, communicating with other HCPs (not separately reported), independently interpreting results (not separately reported), communicating results to the patient/family/caregiver and care coordination (not separately reported). High MDM. Patricia Enriquez MD [facility] Patient Care Team: -Jose Evans MD, Neurosurgery, [facility], [facility], [facility] Cyndee Joyce MD, PhD, Radiation Oncology, [facility], [facility], [facility]. Jaclyn Guillory LSW as Pull Worker (Hematology/Oncology) Soraida Simmons RN (Hospice AND Palliative Medicine) Willy Lion MD (Hospice AND Palliative Medicine) Rupa Khoury APRN.MANUFACTURING ENGINEERING MANAGER (Hospice AND Palliative Medicine) Daniel Juárez PSYD, Psychology, [facility] CNPN Observed: 04/03/2025 12:00 AM Status: COMPLETED Source: [facility] Telephone (NSCAMN) ANGEL KEATING ([id number]) 1970 M T Date Time Provider Department 04/03/25 PATRICIA ENRIQUEZ [facility] During your visit today, we recorded the following information about you: Tona Cobos, VAZQUEZ 04/03/2025 10:23 AM Signed Spoke with Dr Keating. He is aware of his VV today with Dr Fraire to review Avastin. Avastin infusion #1 scheduled for April 05 but is not yet approved. I let him know if not approved by Thursday, then we will need to push out. Tona Cobos, RN, BSN Banking Supervisor [facility] Allergies As of Date: 04/03/2025 (No Known Allergies) Date Reviewed: 03/31/2025 Reviewed by: Saba Chang RN - Fully Assessed Reason for Visit: VV scheduled today [Other] Prescriptions as of 04/03/2025 - atovaquone (MEPRON) 750 mg/5 mL oral liquid Take 10 mL by mouth daily with breakfast. - Miscellaneous Medical Supply kit Outpatient physical therapy - dexAMETHasone (DECADRON) 6 mg tablet Take 1 tablet by mouth two times a day with meals. - lacosamide (VIMPAT) 150 mg tab Take 1 tablet by mouth two times a day for 180 days. - valACYclovir (VALTREX) 500 mg tablet Take 1 tablet by mouth once daily. - lomustine (GLEOSTINE) 100 mg capsule Take one 8mg Zofran on an empty stomach in the evening. Wait ONE hour. Take TWO 100mg capsule(s) Lomustine by mouth for a total dose of 200mg. Take one 8 mg Zofran twenty-four hours later. Take on Day 1 of each 42 day cycle. - traZODone (DESYREL) 50 mg tablet TAKE 1 TABLET BY MOUTH EVERYDAY AT BEDTIME - pantoprazole DR (PROTONIX) 40 mg tablet Take 1 tablet by mouth once daily. - ondansetron (ZOFRAN) 8 mg tablet Take one tablet by mouth on an empty stomach in the evening one hour prior to chemo. Then take one tablet 24 hours after chemo. May repeat dose every 8-12 hours if needed to prevent nausea - midazolam (NAYZILAM) 5 mg/spray (0.1 mL) nasal spray Use 1 [place] in the nose as needed for up to 10 days. May repeat dose in alternate nostril after 10 minutes based on response and tolerability. - acetaminophen (TYLENOL) 325 mg tablet 2 tablets by ORAL/FEEDING TUBE route every 4 hours as needed for pain. Problem List As Of Date 04/03/2025 Noted Resolved Chest pain [R07.9] 04/25/2010 05/26/2024 Brain mass [G93.89] 03/17/2023 11/17/2023 Obesity, Class I, BMI 30-34.9 [E66.811] 03/17/2023 Brain compression (HCC) [G93.5] 03/20/2023 S/P brain surgery [Z98.890] 03/20/2023 11/17/2023 At risk for seizures [Z91.89] 03/20/2023 Cerebral edema (HCC) [G93.6] 03/20/2023 GBM (glioblastoma multiforme) (HCC) [C71.9] 04/07/2023 Syncope, unspecified syncope type [R55] 11/01/2023 11/03/2023 Examination of participant in clinical trial [Z*11/05/2023 11/17/2023 Forehead pain [R51.9] 11/05/2023 PONV (postoperative nausea and vomiting) [R11.2*05/26/2024 Acute post-operative pain [G89.18] 05/29/2024 Thrombocytopenia [D69.6] 10/13/2024 Vasogenic edema (HCC) [G93.6] 03/24/2025 Malnutrition of mild degree (HCC) [E44.1] 03/24/2025 Glioblastoma (HCC) [C71.9] 03/28/2025 Encounter Status:Closed by TONA COBOS on 04/03/25 PLAN OF CARE Observed: 03/31/2025 3:15 PM Status: COMPLETED Source: [facility] ID: [id number] Author: CYNDEE ELIZABETH ? Service: Pharmacy Author Type: Asphalt Screed Operator Type: Plan of Care Filed: 03/31/2025 15:46 Note Text: PHARMACY BEDSIDE DELIVERY SERVICE Patient Name: Angel Keating The marked outpatient medications were Filled at: [facility] and [facility] and delivered to the patient's bedside to patient Medication List START taking these medications atovaquone 750 mg/5 mL oral liquid Commonly known as: MEPRON Take 10 mL by mouth daily with breakfast. Start taking on: April 01, 2025 DELIVERED Miscellaneous Medical Supply Kit Outpatient physical therapy PRINTED RX FOR PHYSICAL THERAPY CHANGE how you take these medications dexAMETHasone 6 mg tablet Commonly known as: DECADRON Take 1 tablet by mouth two times a day with meals. What changed: medication strength how much to take when to take this DELIVERED CONTINUE taking these medications acetaminophen 325 mg tablet Commonly known as: TYLENOL 2 tablets by ORAL/FEEDING TUBE route every 4 hours as needed for pain. GLEOSTINE 100 mg capsule Generic drug: lomustine Take one 8mg Zofran on an empty stomach in the evening. Wait ONE hour. Take TWO 100mg capsule(s) Lomustine by mouth for a total dose of 200mg. Take one 8 mg Zofran twenty-four hours later. Take on Day 1 of each 42 day cycle. lacosamide 150 mg Tab Commonly known as: VIMPAT Take 1 tablet by mouth two times a day for 180 days. DELIVERED midazolam 5 mg/spray (0.1 mL) nasal spray Commonly known as: NAYZILAM Use 1 [place] in the nose as needed for up to 10 days. May repeat dose in alternate nostril after 10 minutes based on response and tolerability. ondansetron 8 mg tablet Commonly known as: ZOFRAN Take one tablet by mouth on an empty stomach in the evening one hour prior to chemo. Then take one tablet 24 hours after chemo. May repeat dose every 8-12 hours if needed to prevent nausea pantoprazole DR 40 mg tablet Commonly known as: PROTONIX Take 1 tablet by mouth once daily. traZODone 50 mg tablet Commonly known as: DESYREL TAKE 1 TABLET BY MOUTH EVERYDAY AT BEDTIME valACYclovir 500 mg tablet Commonly known as: VALTREX Take 1 tablet by mouth once daily. DELIVERED You might also be taking other medications not listed above. If you have questions about any of your other medications, talk to the person who prescribed them or your Primary Care Provider. STOP taking these medications LUCÍA SMITH Cyndee Kevin March 31, 2025 3:15 PM THERAPY NT Observed: 03/31/2025 3:14 PM Status: COMPLETED Source: [facility] HNO ID: [id number] Author: VELMA GURROLA OT/Prosper Service: Occupational Therapy Author Type: Occupational Therapist Type: Therapy (PT/OT/Speech/Resp) Filed: 03/31/2025 15:14 Note Text: OCCUPATIONAL THERAPY MISSED VISIT SERVICE DATE: 03/31/2025 SERVICE TIME: 1513 ROOM: [place] [address] Patient not seen due to Patient Not Available (active d/c orders). SIGNATURE: JASE Oliver PATIENT NAME: Angel Keating DATE: March 31, 2025 TIME: 3:14 PM THERAPY NT Observed: 03/31/2025 12:11 PM Status: COMPLETED Source: [facility] ID: [id number] Author: GOKUL CHILDRESS, PT Service: Physical Therapy Author Type: Physical Therapist Type: Therapy (PT/OT/Speech/Resp) Filed: 03/31/2025 12:12 Note Text: Physical Therapy Treatment Summary SERVICE DATE: 03/31/2025 SERVICE TIME: 1142 to 1205 ROOM: [place] [address] PT 6 Clicks Score: 20 Total Joint Replacement Discharge Readiness: Not Applicable DISCHARGE RECOMMENDATIONS Outpatient PT Recommended Discharge Disposition Comments: with continued family support at home Recommended Discharge Disposition Due to: Functional deficits requiring ongoing therapy service prior to discharge home., Patient requires daily (5x/week) skilled therapy at next level of care., Functional status decline, Requires multiple therapy disciplines, Balance deficits Anticipated Discharge Needs: Physical Assist at Home, Supervision at Home Physical Assist at Home for: Cleaning, Laundry, Meals, Safety, Stairs, Self Care, Shopping, Transportation Supervision at Home due to: Other: See Comment (For optimal safety) Recommended Discharge Equipment: To Be Determined ASSESSMENT Response to Therapy Interventions: Good Participation in Activities, Improved Tolerance for Activity, On-Track to Achieve Discharge Goals Patient tolerated session fairly well with reported fatigue towards end of session. Patient requiring SBA-CGA for all functional mobility. Patient able to increase gait distance with use of FWW with improved ruth ann and equal step lengths of each LE. Education provided on progression of use of AD for mobility from walker to cane to no AD. Gait trialed without use of AD, increased lateral sway and decreased ruth ann, but no loss of balance. Active participation with all seated LE exercises, increased weakness/difficulty with R sided heel slides. Education provided on discharge planning and home safety. Changing recommendation to home with outpatient PT to address strength and balance deficits. PRECAUTIONS Fall Risk, Lines/Tubes/Drains, Bed/Chair Alarm CURRENT HOSPITAL COURSE workup for vasogenic edema Relevant Past Medical History: 54-year-old male with a history of glioblastoma and chronic expressive aphasia, currently undergoing treatment with lomustine, most recent dose administered on March 07 HOME LIVING Patient Lives With: Family (mother) Assistance Available: 24-Hour Entry To Home: Stairs, With Rail Number Of Stairs Into Home: 7 (2+5) Number Of Stairs To Bed/Bath: 0 Tub/Shower Type: WIS with GB, SC, HHS Laundry: Family assists Equipment Owned: Grab Bars- Shower, Hand Held Shower, Long Handled Sponge, Walker- Wheeled, Elevated Toilet Seat PRIOR FUNCTIONAL LEVEL Within Functional Limits ~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 (-) falls SUBJECTIVE Pt. agreeable to PT THERAPY DIAGNOSIS Reduced mobility-other, Muscle Weakness (generalized) TREATMENT INTERVENTIONS Therapeutic Exercise (29064), Gait Training (01885) Timed Code Treatment (minutes): 23 Skilled Treatment Time (minutes): 23 TRAINING AND EDUCATION PROVIDED Assistive Device Use, Discharge Planning, Exercise Program, Expected Functional Level, Falls Prevention, Gait Pattern, Reduction of Deviations, Transfers, Standing Balance THERAPEUTIC SKILLS USED Activity Dosing, Cues for Sequencing/Proper Technique for Activity, Cuing Tactile, Cuing Verbal, Cuing Visual, Movement Facilitation, Postural Alignment Correction FUNCTIONAL STATUS Bed Mobility Supine To Sit: Stand By Assistance, Additional Information HOB elevated Sit to Supine: Stand By Assistance Scooting: Stand By Assistance, Additional Information Transfers Sit To Stand: Contact Guard Assistance, Additional Information x2 trials Stand To Sit: Contact Guard Assistance Bed to Chair Gait Contact Guard Assistance, Additional Information First and longer gait trial with use of FWW, improved ruth ann with equal step lengths of B LEs. Trialed gait without use of AD within room, increased lateral sway and decreased ruth ann, but no loss of balance Gait Device: Wheeled Walker, None General Deviations/Observations: Ruth Ann decreased, Flexed trunk posture, Lateral sway increased, Step length decreased Gait Distance (feet): 1x300, 1x30 Stairs GOALS Patient will demonstrate progress to optimize functional mobility, maximize activity tolerance and endurance to maximize function upon discharge. Rehab Potential: Good Progress Toward Goals: Progressing as expected ACUTE CARE TREATMENT PLAN PT Frequency: 4 Times Per Week Treatment Interventions: Education, Strengthening, Functional Mobility Training, Balance Training, Neuromuscular Re-education Plan for Next Visit: Gait Training, Standing Balance SIGNATURE: Gokul Childress PT PATIENT NAME: Angel Keating DATE: March 31, 2025 TIME: 12:11 PM CASE MANAGEM Observed: 03/31/2025 9:19 AM Status: COMPLETED Source: [facility] ID: [id number] Author: CHRISTINE MEZA RN Service: Care Management Author Type: Registered Nurse Type: Care Mgt Progress Note Filed: 03/31/2025 09:30 Note Text: CARE MANAGEMENT DISCHARGE NOTE SERVICE DATE: March 31, 2025 SERVICE TIME: 9:19 AM Admission Date: 03/24/2025 LOS: 7 days Discharge Arrangement Discharge Arrangement: Home with Parent Services Arranged Medical Services: Referred to Outpatient PT/OT Caregiver Assessment Caregiver is ready, willing and able to meet the patient's needs as recommended by the inter-professional team: Yes Name of Caregiver: DONNA KEATING (Mother) Transportation Arrangements Transportation Arrangements: Car Date of Trip: 03/31/25 Destination: home Additional Information: Per team: pt ready for d/c. Pt and family aware and agrees. PT 03/29, OT 03/27 recommends SNF. PT currently - click score mobility, on RA, has RCW port. Diet: Reg. Plan, pt was suppose to [facility] for rehab, precert and p2p was denied. Pt/family decided to go to outpx PT instead. Outpx PT Rx and AVS will be handed by bedside RN to pt/family prior d/c. Mother to provide d/c transport, to be assisted by uncle when pt gets home. Pt ready for d/c from CM standpoint. SIGNATURE: Christine Meza RN PATIENT NAME: Angel Keating DATE: March 31, 2025 TIME: 9:19 AM BAS METAB 1999 PNL SERPL Collected: 5:36 AM Status: F Source: [facility] Order Comment: Specimen Type : BLOOD SPECIMEN Ordering Facility: [facility] Address: [address] [place] [address] TYPE CODE TESTS RESULT OUT OF RANGE REFERENCE UNITS LAB 2345-7(LOINC) Glucose SerPl-[facility] 118 High 74-99 mg/dL Result Comment: The [place] Diabetes Association (ADA) provides guidance for cutoff values for fasting glucose and random glucose. The ADA defines fasting as no caloric intake for at least 8 hours. Fasting plasma glucose results between 100 to 125 mg/dL indicate increased risk for diabetes (prediabetes). Fasting plasma glucose results greater than or equal to 126 mg/dL meet the criteria for diagnosis of diabetes. In the absence of unequivocal hyperglycemia, results should be confirmed by repeat testing. In a patient with classic symptoms of hyperglycemia or hyperglycemic crisis, random plasma glucose results greater than or equal to 200 mg/dL meet the criteria for diagnosis of diabetes. Reference: Standards of Medical Care in Diabetes 2016, [place] Diabetes Association. Diabetes Care. 2016.39(Suppl 1). LAB 3094-0(LOINC) BUN SerPl-mCnc 36 High 9-24 mg/dL LAB 2160-0(LOINC) Creat SerPl-mCnc 1.01 0.73-1.22 mg/dL LAB 2951-2(LOINC) Sodium SerPl-sCnc 139 136-144 mmol/L LAB 2823-3(LOINC) Potassium SerPl-sCnc 4.4 3.7-5.1 mmol/L LAB 2075-0(LOINC) Chloride SerPl-sCnc 105 98-107 mmol/L LAB 2027-9(LOINC) CO2 SerPl-sCnc 22 22-30 mmol/L LAB 42155-9(LOINC) Anion Gap SerPl-sCnc 12 8-15 mmol/L LAB 23948-9(LOINC) Calcium SerPl-mCnc 8.4 Low 8.5-10.2 mg/dL LAB 20730-3(LOINC) eGFRcr SerPlBld CKD-EPI 2020 87 >=60 mL/min/1. 73m??? Result Comment: Estimated Gl omerular Filtration Rate (eGFR) is calculated using the 2020 CKD-EPI creatinine equation. This equation utilizes serum creatinine, sex, and age as parameters. The creatinine assay has traceable calibration to isotope dilution-mass spectrometry. Refer to KDIGO guidelines for clinical interpretation. In patients with unstable renal function, e.g. those with acute kidney injury, the eGFR may not accurately reflect actual GFR. Performed By: #### [id number] # ### [facility] CLIA [id number] [address] [place] [address] [place] CBC PNL BLD AUTO Collected: 5 5:36 AM Status: F Source: [facility] Order Comment: Specimen Type : BLOOD SPECIMEN Ordering Facility: [facility] Address: [address] [place] [address] TYPE CODE TESTS RESULT OUT OF RANGE REFERENCE UNITS LAB 6690-2(LOINC) WBC # Bld Auto 8.66 3.70-11.00 k/uL LAB 789-8(LOINC) RBC # Bld Auto 3.63 Low 4.20-6.00 m/uL LAB 718-7(LOINC) Hgb Bld-mCnc 12.6 Low 13.0-17.0 g/dL LAB 4544-3(LOINC) Hct VFr Bld Auto 34.2 Low 39.0-51.0 % LAB 787-2(LOINC) MCV RBC Auto 94.2 80.0-100.0 fL LAB 785-6(LOINC) MCH RBC Qn Auto 34.7 High 26.0-34.0 pg LAB 786-4(LOINC) MCHC RBC Auto-mCnc 36.8 High 30.5-36.0 g/dL LAB 00076-8(LOINC) RDW RBC-Rto 14.9 11.5-15.0 % LAB 777-3(LOINC) Platelet # Bld Auto 103 Low 150-400 k/uL Result Comment: Platelet cou nt confirmed by manual review of peripheral blood smear. Results checked and verified.No clot detected. LAB 28632-8(LOINC) PMV Bld Auto 11.1 9.0-12.7 fL LAB 771-6(LOINC) nRBC # Bld Auto 0.02 High <0.01 k/uL Performed By: #### 05383-9 # ### [facility] CLIA [id number] [address] [place] [address] STATES OF [facility] CASE MANAGEM Observed: 03/30/2025 9:24 AM Status: COMPLETED Source: [facility] HNO ID: [id number] Author: CHRISTINE MEZA, RN Service: Care Management Author Type: Registered Nurse Type: Care Mgt Progress Note Filed: 03/30/2025 09:31 Note Text: CARE MANAGEMENT PROGRESS NOTE SERVICE DATE: 03/30/2025 SERVICE TIME: 9:24 AM LOS: 6 days Needs Prior to Discharge: Other: See Comment Per team note: No surgery recommended per neurosurgery Dr. Evans; No radiation as per rad Onc; Continue on lomustine and add avastin. PT/OT 03/27 recommends SNF. PT currently - click score mobility, on RA, has RCW port. Diet: Reg. has appt for Thrs 03/30 @4pm for P2P (for declined precert for SNF-[facility]). if P2P is approved, NEED to change retask for new SNF FOC; RN to RN report #. (Accepting SNF) [facility] SNF add: [address] [place] [address]. . (SNF to start precert, [facility]). No 7000 form needed. MMT d/c transport for 'Will Call' till 04/04/25 trip # [id number]. (d/c packet in pt chart updated). D/C THURSDAY or WEEKEND (pending P2P). CM will cont to follow. Please see Treatment Team for Care Management Weekend/Holiday coverage. SIGNATURE: Christine Meza RN PATIENT NAME: Angel Keating DATE: March 30, 2025 TIME: 9:24 AM PROGRESS Observed: 03/30/2025 6:37 AM Status: COMPLETED Source: [facility] HNO ID: [id number] Author: DANUTA GUADARRAMA MD Service: General Internal Medicine Author Type: Physician Type: Progress Notes Filed: 03/30/2025 15:48 Note Text: [facility] STAFF PHYSICIAN NOTE OF PERSONAL INVOLVEMENT IN CARE I have reviewed the progress note obtained and documented by the resident and I personally participated in the mckeon components. I have discussed the case and management of the patient's care. The following comments revise or confirm relevant mckeon components of their note. 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 He has noticed improvement in LE weakness with initiation of steroids and outpatient plan is for treatment with bevacizumab to decrease edema. PLAN: Continue dexamethasone 6mg BID and atovaquone PJP ppx (recommended by outpatient team)/PPI Continue home dose of lacosamide Work on discharge plans for SNF- he is medically ready for discharge SIGNATURE: Danuta Guadarrama MD Solid Tumor Oncology - Progress Note Angel Keating [id number] HOSPITAL DAY: # 6 SUMMARY INTERVAL HISTORY Vitals: HDS, NAEO Consultants: - Prim neurooncologist who recommended 1x25mg IV decadron while inpatient, with outpatient dosing until treatment with bevacizumab - rad onc with no intervention at this time - neurosurgery with no intervention at this time (requires presentation at tumor board) PLAN FOR TODAY: - locate eligible SNF - continue dexamethasone 12mg every day; monitor for cerebral edema rebound - continue lacosmide PHYSICAL EXAM BP 96/50 Pulse (!) 44 Temp 36.8 ?C (98.2 ?F) (Oral) Resp 18 Ht 177.8 cm (5' 10) Wt 94.5 kg (208 lb 5.4 oz) SpO2 97% BMI 29.89 kg/m? Intake/Output Summary (Last 24 hours) at 03/30/2025 0637 Last data filed at 03/29/2025 2147 Gross per 24 hour Intake -- Output 1350 ml Net -1350 ml General Appearance: Well developed and Well nourished GENERAL: No acute distress; alert and oriented x 3 HEENT: Sclera anicteric. No mucositis. No thrush LUNGS: Clear to auscultation; no wheezing, rhonchi or rales HEART: Regular rhythm; normal rate ABDOMEN: Bowel sounds present; soft, non-tender and not distended EXTREMITIES: No edema. Muscular strength equal in all extremities SKIN: No rash or ecchymosis VENOUS ACCESS: No erythema, tenderness or drainage NEURO: Right and right leg drift +. No weakness with left arm/leg. MEDICATIONS Current Facility-Administered Medications Medication Dose Route Frequency NaCl 0.9% iv flush bag 20 mL INTRAVENOUS PRN ondansetron (PF) 4 mg injection (ZOFRAN) 4 mg INTRAVENOUS q 6 H PRN lacosamide 150 mg tab(s) (VIMPAT) 150 mg ORAL BID pantoprazole [address] 40 mg tab(s) (PROTONIX) 40 mg ORAL DAILY traZODone 50 mg tab(s) (DESYREL) 50 mg ORAL AT BEDTIME valACYclovir 500 mg tab(s) (VALTREX) 500 mg ORAL DAILY acetaminophen 1,000 mg tab(s) (TYLENOL) 1,000 mg ORAL/FEEDING TUBE q 8 H PRN senna 8.6 mg tab(s) (SENOKOT) 8.6 mg ORAL/FEEDING TUBE BID polyethylene glycol 3350 17 g packet 17 g ORAL/FEEDING TUBE DAILY PRN atovaquone 1,500 mg oral liquid (MEPRON) 1,500 mg ORAL DAILY WITH BREAKFAST dexAMETHasone (DECADRON) tab(s) 6 mg 6 mg ORAL DAILY (9 AM) dexAMETHasone (DECADRON) tab(s) 6 mg 6 mg ORAL DAILY (1 PM) DATA Recent Labs 03/30/25 0537 03/29/25 0353 03/28/25 0304 WBC 8.35 7.08 6.71 HB 12.7* 12.6* 12.1* HCT 35.3* 35.8* 34.0* PLT 117* 129* 127* Recent Labs 03/29/25 0353 03/28/25 0304 NA 135* 137 K 4.3 4.3 CO2 21* 22 BUN 27* 25* CREAT 1.00 1.04 GLUC 149* 155* IMAGING CTH WO 03/23 1. MODERATELY INCREASED MASS EFFECT IN LEFT FRONTOTEMPORAL REGION, SINCE 02/28/2025, SECONDARY TO INCREASED EXTENSION OF WHITE MATTER INVOLVEMENT, POSSIBLY TREATMENT CHANGE VERSUS TUMORAL EDEMA 2. MILD MIDLINE SHIFT TO THE RIGHT, WITHOUT OTHER HERNIATION 3. NO ACUTE HEMORRHAGE OR INFARCTION ASSESSMENT AND PLAN Active Hospital Problems Diagnosis Vasogenic edema (HCC) Glioblastoma (HCC) Malnutrition of mild degree (HCC) 54-year-old right-handed male with recurrent left temporal glioblastoma multiforme (s/p two resections, GKRS, lomustine, clinical trial therapy), chronic expressive aphasia, now presenting with new right-sided weakness and inability to ambulate, imaging concerning for radiation necrosis vs tumor progression. #New right-sided weakness in both his arm and leg #Glioblastoma CT brain revealed significant interval vasogenic edema, likely secondary to tumor recurrence, with a midline shift of 5.4 mm. - rad onc with no intervention at this time - neurosurgery with no intervention at this time (requires presentation at tumor board) Plan: - IV decadron 6mg 9AM AND 6mg 1PM; monitor for cerebral edema rebound given lower dose - Continue home lacosamide 150mg BID # Malnutrition # Nausea vomiting Weight loss of 5 kg over the past 6 weeks, current weight 95 kg. Likely secondary to chemotherapy-induced nausea and decreased appetite. Plan: - Antiemetics as needed - Nutrition consult - PT/OT CHRONIC PROBLEMS #Psoriasis Chronic scaly, flaky rashes reported on scalp, chest, arms, and legs. Plan: Outpatient follow-up with PCP/dermatology. Exogenous Class 1 Obesity Medication and Non-Pharmacologic VTE Prophylaxis/Anticoagulants Case to be discussed with staff. Arturo Valencia MD Internal Medicine - PGY-I Pager # CBC PNL BLD AUTO Collected: 5:37 AM Status: F Source: [facility] Order Comment: Specimen Type : BLOOD SPECIMEN Ordering Facility: [facility] Address: [address] [place] [address] TYPE CODE TESTS RESULT OUT OF RANGE REFERENCE UNITS LAB 6690-2(LOINC) WBC # Bld Auto 8.35 3.70-11.00 k/uL LAB 789-8(LOINC) RBC # Bld Auto 3.69 Low 4.20-6.00 m/uL LAB 718-7(LOINC) Hgb Bld-mCnc 12.7 Low 13.0-17.0 g/dL LAB 4544-3(LOINC) Hct VFr Bld Auto 35.3 Low 39.0-51.0 % LAB 787-2(LOINC) MCV RBC Auto 95.7 80.0-100.0 fL LAB 785-6(LOINC) MCH RBC Qn Auto 34.4 High 26.0-34.0 pg LAB 786-4(LOINC) MCHC RBC Auto-mCnc 36.0 30.5-36.0 g/dL LAB 89105-6(LOINC) RDW RBC-Rto 14.8 11.5-15.0 % LAB 777-3(LOINC) Platelet # Bld Auto 117 Low 150-400 k/uL Result Comment: No clot dete cted.Results checked and verified. LAB 83986-6(LOINC) PMV Bld Auto 11.1 9.0-12.7 fL LAB 771-6(LOINC) nRBC # Bld Auto 0.03 High <0.01 k/uL Performed By: #### 72185-0 # ### [facility] CLIA [id number] [address] [place] [address] [place] [address] [place] BAS METAB 2000 PNL SERPL Collected: 5:37 AM Status: F Source: [facility] Order Comment: Specimen Type : BLOOD SPECIMEN Ordering Facility: [facility] Address: [address], [place] [id number] TYPE CODE TESTS RESULT OUT OF RANGE REFERENCE UNITS LAB 2345-7(LOINC) Glucose SerPl-mCnc 138 High 74-99 mg/dL Result Comment: The [place] Diabetes Association (ADA) provides guidance for cutoff values for fasting glucose and random glucose. The ADA defines fasting as no caloric intake for at least 8 hours. Fasting plasma glucose results between 100 to 125 mg/dL indicate increased risk for diabetes (prediabetes). Fasting plasma glucose results greater than or equal to 126 mg/dL meet the criteria for diagnosis of diabetes. In the absence of unequivocal hyperglycemia, results should be confirmed by repeat testing. In a patient with classic symptoms of hyperglycemia or hyperglycemic crisis, random plasma glucose results greater than or equal to 200 mg/dL meet the criteria for diagnosis of diabetes. Reference: Standards of Medical Care in Diabetes 2016, [place] Diabetes Association. Diabetes Care. 2016.39(Suppl 1). LAB 3094-0(LOINC) BUN SerPl-mCnc 31 High 9-24 mg/dL LAB 2160-0(LOINC) Creat SerPl-mCnc 1.02 0.73-1.22 mg/dL LAB 2951-2(LOINC) Sodium SerPl-sCnc 136 136-144 mmol/L LAB 2823-3(LOINC) Potassium SerPl-sCnc 4.2 3.7-5.1 mmol/L LAB 2075-0(LOINC) Chloride SerPl-sCnc 103 98-107 mmol/L LAB 2028-9(LOINC) CO2 SerPl-sCnc 22 22-30 mmol/L LAB 11067-0(LOINC) Anion Gap SerPl-sCnc 11 8-15 mmol/L LAB 51879-3(LOINC) Calcium SerPl-mCnc 8.6 8.5-10.2 mg/dL LAB 47594-8(LOINC) eGFRcr SerPlBld CKD-EPI 2020 86 >=60 mL/min/1. 73m??? Result Comment: Estimated Gl omerular Filtration Rate (eGFR) is calculated using the 2020 CKD-EPI creatinine equation. This equation utilizes serum creatinine, sex, and age as parameters. The creatinine assay has traceable calibration to isotope dilution-mass spectrometry. Refer to KDIGO guidelines for clinical interpretation. In patients with unstable renal function, e.g. those with acute kidney injury, the eGFR may not accurately reflect actual GFR. Performed By: #### 81736-7 # ### [facility] CLIA [id number] [address] [place] [address] CNPN Observed: 03/30/2025 12:00 AM Status: COMPLETED Source: [facility] Telephone (NSCAMN) ANGEL KEATING ([id number]) 1970 M T Date Time Provider Department 03/30/25 PATRIC[facility]RIQUEZ [facility] During your visit today, we recorded the following information about you: Esme Cook RN 03/30/2025 11:14 AM Signed Please schedule Avastin infusions every 2 weeks beginning 04/06 x4 First one at [facility] then following infusions can be closer to home if the patient desires Dx: GBM Thank you! Tona Cobos RN 04/05/2025 2:20 PM Signed Needs additional Avastin treatments at [place] scheduled for: 05/03 05/17 05/31 Patient currently is only scheduled on 04/19 Thank you! Tona Allergies As of Date: 03/30/2025 (No Known Allergies) Date Reviewed: 03/30/2025 Reviewed by: Jn Pennington, RN - Fully Assessed Reason for Visit: JUANCARLOS AVASTIN TREATMENT [Other] Prescriptions as of 04/05/2025 - Miscellaneous Medical Supply kit Outpatient physical therapy - atovaquone (MEPRON) 750 mg/5 mL oral liquid Take 10 mL by mouth daily with breakfast. - dexAMETHasone (DECADRON) 6 mg tablet Take 1 tablet by mouth two times a day with meals. - lacosamide (VIMPAT) 150 mg tab Take 1 tablet by mouth two times a day for 180 days. - valACYclovir (VALTREX) 500 mg tablet Take 1 tablet by mouth once daily. - traZODone (DESYREL) 50 mg tablet TAKE 1 TABLET BY MOUTH EVERYDAY AT BEDTIME - pantoprazole DR (PROTONIX) 40 mg tablet Take 1 tablet by mouth once daily. - ondansetron (ZOFRAN) 8 mg tablet Take one tablet by mouth on an empty stomach in the evening one hour prior to chemo. Then take one tablet 24 hours after chemo. May repeat dose every 8-12 hours if needed to prevent nausea - midazolam (NAYZILAM) 5 mg/spray (0.1 mL) nasal spray Use 1 [place] in the nose as needed for up to 10 days. May repeat dose in alternate nostril after 10 minutes based on response and tolerability. - acetaminophen (TYLENOL) 325 mg tablet 2 tablets by ORAL/FEEDING TUBE route every 4 hours as needed for pain. Problem List As Of Date 03/30/2025 Noted Resolved Chest pain [R07.9] 04/25/2010 05/26/2024 Brain mass [G93.89] 03/17/2023 11/17/2023 Obesity, Class I, BMI 30-34.9 [E66.811] 03/17/2023 Brain compression (HCC) [G93.5] 03/20/2023 S/P brain surgery [Z98.890] 03/20/2023 11/17/2023 At risk for seizures [Z91.89] 03/20/2023 Cerebral edema (HCC) [G93.6] 03/20/2023 GBM (glioblastoma multiforme) (HCC) [C71.9] 04/07/2023 Syncope, unspecified syncope type [R55] 11/01/2023 11/03/2023 Examination of participant in clinical trial [Z*11/05/2023 11/17/2023 Forehead pain [R51.9] 11/05/2023 PONV (postoperative nausea and vomiting) [R11.2*05/26/2024 Acute post-operative pain [G89.18] 05/29/2024 Thrombocytopenia [D69.6] 10/13/2024 Vasogenic edema (HCC) [G93.6] 03/24/2025 Malnutrition of mild degree (HCC) [E44.1] 03/24/2025 Glioblastoma (HCC) [C71.9] 03/28/2025 Encounter Status:Closed by ESME COOK on 04/03/25 TRINO Observed: 03/30/2025 12:00 AM Status: COMPLETED Source: [facility] Telephone (HEMAWS) ANGEL KEATING ([id number]) 1970 M [facility] Date Time Provider Department 03/30/25 TAE OROPEZA During your visit today, we recorded the following information about you: Daniel White 03/30/2025 3:29 PM Signed Please review and advise- Patient to have Avastin in [place]. Dr. Fraire referring. Patient will have first treatment at [facility] on 04/17. Remaining here. Daniel White 03/31/2025 9:36 AM Signed Received call from Ashley at [facility]. Patient has been moved up earlier on their schedule to 04/05. I have a spot on hold for 04/19 @ 1030 for patient. Patient still needs called and scheduled. Fidelina Tarango 03/31/2025 12:25 PM Signed Patient is currently in the hospital. Scheduled treatment on 04/19 @ 10:30 Fidelina Tarango Allergies As of Date: 03/30/2025 (No Known Allergies) Date Reviewed: 03/30/2025 Reviewed by: Jn Pennington, RN - Fully Assessed Reason for Visit: Orders [681] Prescriptions as of 04/06/2025 - dexAMETHasone (DECADRON) 2 mg tablet decrease to 10 mg daily starting on 04/06 - Miscellaneous Medical Supply kit Outpatient physical therapy - atovaquone (MEPRON) 750 mg/5 mL oral liquid Take 10 mL by mouth daily with breakfast. - dexAMETHasone (DECADRON) 6 mg tablet Take 1 tablet by mouth two times a day with meals. - lacosamide (VIMPAT) 150 mg tab Take 1 tablet by mouth two times a day for 180 days. - valACYclovir (VALTREX) 500 mg tablet Take 1 tablet by mouth once daily. - traZODone (DESYREL) 50 mg tablet TAKE 1 TABLET BY MOUTH EVERYDAY AT BEDTIME - pantoprazole DR (PROTONIX) 40 mg tablet Take 1 tablet by mouth once daily. - ondansetron (ZOFRAN) 8 mg tablet Take one tablet by mouth on an empty stomach in the evening one hour prior to chemo. Then take one tablet 24 hours after chemo. May repeat dose every 8-12 hours if needed to prevent nausea - midazolam (NAYZILAM) 5 mg/spray (0.1 mL) nasal spray Use 1 [place] in the nose as needed for up to 10 days. May repeat dose in alternate nostril after 10 minutes based on response and tolerability. - acetaminophen (TYLENOL) 325 mg tablet 2 tablets by ORAL/FEEDING TUBE route every 4 hours as needed for pain. Problem List As Of Date 03/30/2025 Noted Resolved Chest pain [R07.9] 04/25/2010 05/26/2024 Brain mass [G93.89] 03/17/2023 11/17/2023 Obesity, Class I, BMI 30-34.9 [E66.811] 03/17/2023 Brain compression (HCC) [G93.5] 03/20/2023 S/P brain surgery [Z98.890] 03/20/2023 11/17/2023 At risk for seizures [Z91.89] 03/20/2023 Cerebral edema (HCC) [G93.6] 03/20/2023 GBM (glioblastoma multiforme) (HCC) [C71.9] 04/07/2023 Syncope, unspecified syncope type [R55] 11/01/2023 11/03/2023 Examination of participant in clinical trial [Z*11/05/2023 11/17/2023 Forehead pain [R51.9] 11/05/2023 PONV (postoperative nausea and vomiting) [R11.2*05/26/2024 Acute post-operative pain [G89.18] 05/29/2024 Thrombocytopenia [D69.6] 10/13/2024 Vasogenic edema (HCC) [G93.6] 03/24/2025 Malnutrition of mild degree (HCC) [E44.1] 03/24/2025 Glioblastoma (HCC) [C71.9] 03/28/2025 Encounter Status:Closed by DANIEL WHITE on 04/06/25 PLAN OF CARE Observed: 03/29/2025 5:44 PM Status: COMPLETED Source: [facility] HNO ID: [id number] Author: PATRICIA ENRIQUEZ MD Service: Oncology Author Type: Physician Type: Plan of Care Filed: 03/29/2025 18:01 Note Text: [facility] Tumor Board Data for 2025-03-27 [facility] Multidisciplinary Angel Keating [id number] Glioblastoma Glioblastoma Mina 03/25/25, 02/28/25, 01/17/25 No Unknown 54 o [facility] PMH of resection of Left temporal mass on 03/19/23. Path: GBM, [id number] negative, MGMT unmethylated, and TERTp promotor per TOP Enrolled in [employer], randomized to [id number] IV twice weekly arm + Standard concurrent chemotherapy and radiation (04/20- 05/29/2023) MRI progression in February 2024- Started Lomustine C#1 02/26/24. Enrolled in CASE 3322 clinical trial (with methimazole + chemo). S/P L temporal mass re-do resection 05/27/24. Path: Residual/recurrent glioblastoma, IDH-wildtype (by prior analysis), PATENT PARALEGAL WHO grade 4, within a background of radiation-related necrosis and gliosis. GKS with Dr Evans 09/23/24. Continues on Lomustine. Adm 03/24 with new L sided weakness. Treatment option No surgery recommended per neurosurgery Dr. Evans No radiation as per rad Onc. Continue on lomustine and add avastin. S: No H/A. No symptoms of increased IC pressure Feels getting stronger I the elft side, arm/leg Some word finding difficulty. O: AANDOX3 MS at baseline, some Some word finding difficulty. Comprehension intact. Motor: left hemiparesis A/P Dr. Keating, Emergency Medicine Physician, has the diagnosis of GBM: recent worsening left sided weakness/language dysfunction, with MRI showing increased edema, and enhancement. No increased CBV, likely treatment effect, but cannot exclude tumor. I discussed the above with the patient. Regarding systemic therapy for recurrent glioblastoma, I recommend for the patient to consider bevacizumab (EDWIN), this treatment falls under the guidelines to treat recurrent/progressive GBM, according to the National Comprehensive Cancer Network (NCCN) guidelines for PATENT PARALEGAL Cancers. EDWIN, as anti anti angiogenic agent that can achieve improvement of the cerebral edema, and the patient's symptoms. This agent has been approved by the FDA for progressive recurrent GBM and can be used as a single agent. I discussed with the patient the goals of treatments as above mentioned, but also the potential benefits and side effects which among many, include but not limited to hemorrhage, that can occur, in any organ or parts of the body, including the brain, thromboembolism that can occur any part of the body or systems or organs including the brain, as well gut perforation, or perforation of the GI tract, renal failure in the form of nephrotic syndrome, hypertension, or even allergies, among many other potential side effects. Those potential side effects, although not common, can cause a significant neurological, or organ system compromise, including . The regimen I recommend is 10 mg/Kg every 2 weeks until progression occurs (Jose Grubbs et al. Bevacizumab Alone and in Combination With Irinotecan in Recurrent Glioblastoma. J Clin Oncol 27:7102-4146; Guanaco Ocasio et al. Bevacizumab plus irinotecan in recurrent glioblastoma multiforme. J Clin Oncol 2006May 29;25(30):7474-5). I signed consent for bevacizumab (edwin) Patient to signs his part when EDWIN infusion given. Sent patient written information on BE for his review. The plan is to start bevacizumab (edwin) as OUTP, once her gets discharged. -I will initiate the process to secure BE as an OUTPT.. -I will see him in outpt neuro-oncology clinic. -Consider dropping the dose while INPT to 12 mg a day, can divide in 2 (6 mg BID). -Watch for cerebral edema rebound. -If so go back to previous dexamethasone (dex) dose. -Continue PPI -Continue Atovaquone, PJP prophylaxis. Thank you t Dr. Guadarrama/INPT Team, for the care providing to Dr. Keating. Patricia Enriquez MD Neuro-Oncology Inpatient Consult Service [facility] PROGRESS Observed: 03/29/2025 4:16 PM Status: COMPLETED Source: [facility] HNO ID: [id number] Author: DANUTA GUADARRAMA MD Service: General Internal Medicine Author Type: Physician Type: Progress Notes Filed: 03/29/2025 16:31 Note Text: [facility] STAFF PHYSICIAN NOTE OF PERSONAL INVOLVEMENT IN CARE I have reviewed the progress note obtained and documented by the resident and I personally participated in the mckeon components. I have discussed the case and management of the patient's care. The following comments revise or confirm relevant mckeon components of their note. 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 He has noticed improvement in LE weakness with initiation of steroids and outpatient plan is for treatment with bevacizumab to decrease edema. PLAN: Continue dexamethasone 8mg AM/4mg afternoon and atovaquone PJP ppx (recommended by outpatient team)/PPI Continue home dose of lacosamide Work on discharge plans for SNF- he is medically ready for discharge SIGNATURE: Danuta Guadarrama MD Solid Tumor Oncology - Progress Note Angel Keating [id number] HOSPITAL DAY: # 5 SUMMARY INTERVAL HISTORY Vitals: HDS, NAEO Consultants: - Prim neurooncologist who recommended 1x25mg IV decadron while inpatient, with outpatient dosing until treatment with bevacizumab - rad onc with no intervention at this time - neurosurgery with no intervention at this time (requires presentation at tumor board) PLAN FOR TODAY: - locate eligible SNF PHYSICAL EXAM BP 117/83 Pulse (!) 48 Temp 36.8 ?C (98.2 ?F) (Oral) Resp 18 Ht 177.8 cm (5' 10) Wt 94.5 kg (208 lb 5.4 oz) SpO2 98% BMI 29.89 kg/m? Intake/Output Summary (Last 24 hours) at 03/29/2025 1616 Last data filed at 03/29/2025 0745 Gross per 24 hour Intake -- Output 1025 ml Net -1025 ml General Appearance: Well developed and Well nourished GENERAL: No acute distress; alert and oriented x 3 HEENT: Sclera anicteric. No mucositis. No thrush LUNGS: Clear to auscultation; no wheezing, rhonchi or rales HEART: Regular rhythm; normal rate ABDOMEN: Bowel sounds present; soft, non-tender and not distended EXTREMITIES: No edema. Muscular strength equal in all extremities SKIN: No rash or ecchymosis VENOUS ACCESS: No erythema, tenderness or drainage NEURO: Right and right leg drift +. No weakness with left arm/leg. MEDICATIONS Current Facility-Administered Medications Medication Dose Route Frequency NaCl 0.9% iv flush bag 20 mL INTRAVENOUS PRN ondansetron (PF) 4 mg injection (ZOFRAN) 4 mg INTRAVENOUS q 6 H PRN lacosamide 150 mg tab(s) (VIMPAT) 150 mg ORAL BID pantoprazole DR 40 mg tab(s) (PROTONIX) 40 mg ORAL DAILY traZODone 50 mg tab(s) (DESYREL) 50 mg ORAL AT BEDTIME valACYclovir 500 mg tab(s) (VALTREX) 500 mg ORAL DAILY acetaminophen 1,000 mg tab(s) (TYLENOL) 1,000 mg ORAL/FEEDING TUBE q 8 H PRN senna 8.6 mg tab(s) (SENOKOT) 8.6 mg ORAL/FEEDING TUBE BID polyethylene glycol 3350 17 g packet 17 g ORAL/FEEDING TUBE DAILY PRN atovaquone 1,500 mg oral liquid (MEPRON) 1,500 mg ORAL DAILY WITH BREAKFAST dexAMETHasone 4 mg tab(s) (DECADRON) 4 mg ORAL DAILY (1 PM) dexAMETHasone 8 mg tab(s) (DECADRON) 8 mg ORAL DAILY (9 AM) DATA Recent Labs 03/29/25 0353 03/28/25 0304 03/27/25 0402 WBC 7.08 6.71 8.71 HB 12.6* 12.1* 12.1* HCT 35.8* 34.0* 34.5* PLT 129* 127* 109* Recent Labs 03/29/25 0353 03/28/25 0304 03/27/25 0402 NA 135* 137 140 K 4.3 4.3 3.9 CO2 21* 22 21* BUN 27* 25* 27* CREAT 1.00 1.04 1.00 GLUC 149* 155* 125* IMAGING [facility] WO 03/23 1. MODERATELY INCREASED MASS EFFECT IN LEFT FRONTOTEMPORAL REGION, SINCE 02/28/2025, SECONDARY TO INCREASED EXTENSION OF WHITE MATTER INVOLVEMENT, POSSIBLY TREATMENT CHANGE VERSUS TUMORAL EDEMA 2. MILD MIDLINE SHIFT TO THE RIGHT, WITHOUT OTHER HERNIATION 3. NO ACUTE HEMORRHAGE OR INFARCTION ASSESSMENT AND PLAN Active Hospital Problems Diagnosis Vasogenic edema (HCC) Glioblastoma (HCC) Malnutrition of mild degree (HCC) 54-year-old right-handed male with recurrent left temporal glioblastoma multiforme (s/p two resections, GKRS, lomustine, clinical trial therapy), chronic expressive aphasia, now presenting with new right-sided weakness and inability to ambulate, imaging concerning for radiation necrosis vs tumor progression. #New right-sided weakness in both his arm and leg #Glioblastoma CT brain revealed significant interval vasogenic edema, likely secondary to tumor recurrence, with a midline shift of 5.4 mm. - rad onc with no intervention at this time - neurosurgery with no intervention at this time (requires presentation at tumor board) Plan: - IV decadron 8mg 9AM AND 4mg 1PM - Continue home lacosamide 150mg BID # Malnutrition # Nausea vomiting Weight loss of 5 kg over the past 6 weeks, current weight 95 kg. Likely secondary to chemotherapy-induced nausea and decreased appetite. Plan: - Antiemetics as needed - Nutrition consult - PT/OT CHRONIC PROBLEMS #Psoriasis Chronic scaly, flaky rashes reported on scalp, chest, arms, and legs. Plan: Outpatient follow-up with PCP/dermatology. Exogenous Class 1 Obesity Medication and Non-Pharmacologic VTE Prophylaxis/Anticoagulants Case to be discussed with staff. Arturo Valencia MD Internal Medicine - PGY-I Pager # THERAPY NT Observed: 03/29/2025 4:15 PM Status: COMPLETED Source: [facility] HNO ID: [id number] Author: VELMA GURROLA OT/L Service: Occupational Therapy Author Type: Business Objects Report Developer Type: Therapy (PT/OT/Speech/Resp) Filed: 03/31/2025 09:23 Note Text: Attestation signed by Velma Gurrola OT/L at 03/31/2025 9:23 AM I reviewed and agree with the documentation corresponding to this therapy visit. SIGNATURE: JASE Oliver DATE: March 31, 2025 TIME: 9:23 AM OCCUPATIONAL THERAPY MISSED VISIT SERVICE DATE: 03/29/2025 SERVICE TIME: 1614 ROOM: [place] [address] Patient not seen due to Declined to Participate. Family members at bedside. SIGNATURE: GLADYS Phillips PATIENT NAME: Angel Keating DATE: March 29, 2025 TIME: 4:15 PM CASE MANAGEM Observed: 03/29/2025 2:02 PM Status: COMPLETED Source: [facility] HNO ID: [id number] Author: MARTA MAHAN, ? Service: ? Author Type: ? Type: Care Mgt Progress Note Filed: 03/29/2025 14:03 Note Text: CARE MANAGEMENT PROGRESS NOTE SERVICE DATE: 03/29/2025 SERVICE TIME: 2:03 PM LOS: 5 days Discharge packet completed and dropped off on floor by kindergarten assistant Marta Mahan. Packet is missing AVS/DC forms. Please reach out to the Green Chain Operator with any Discharge related questions. SIGNATURE: Marta Mahan PATIENT NAME: Angel Keating DATE: March 29, 2025 TIME: 2:03 PM THERAPY NT Observed: 03/29/2025 12:05 PM Status: COMPLETED Source: [facility] HNO ID: [id number] Author: GOKUL CHILDRESS PT Service: Physical Therapy Author Type: Physical Therapist Type: Therapy (PT/OT/Speech/Resp) Filed: 03/29/2025 12:05 Note Text: Physical Therapy Treatment Summary SERVICE DATE: 03/29/2025 SERVICE TIME: 1130 to 1154 ROOM: [place] [address] PT 6 Clicks Score: 19 Total Joint Replacement Discharge Readiness: Not Applicable DISCHARGE RECOMMENDATIONS Subacute/SNF Recommended Discharge Disposition Due to: Functional deficits requiring ongoing therapy service prior to discharge home., Patient requires daily (5x/week) skilled therapy at next level of care., Functional status decline, Requires multiple therapy disciplines, Balance deficits Anticipated Discharge Needs: Physical Assist at Home, Supervision at Home Physical Assist at Home for: Cleaning, Laundry, Meals, Safety, Stairs, Self Care, Shopping, Transportation Supervision at Home due to: Other: See Comment (For optimal safety) Recommended Discharge Equipment: To Be Determined ASSESSMENT Response to Therapy Interventions: Good Participation in Activities, Improved Tolerance for Activity Patient continues to demonstrate improves with mobility and motivated to participate with therapy. Patient requiring SBA-CGA for all functional mobility this date. Improved ruth ann and distance with gait with use of FWW. Patient presenting with R LE weakness during gait with decreased R foot clearance from ground, able to self correct with cues. Active participation with all seated LE exercises, decreased ROM on R LE. Lateral stepping completed along EOB with B UE support on walker. Patient returned to supine with call light and all needs met at exit. PRECAUTIONS Fall Risk, Lines/Tubes/Drains, Bed/Chair Alarm CURRENT HOSPITAL COURSE workup for vasogenic edema Relevant Past Medical History: 54-year-old male with a history of glioblastoma and chronic expressive aphasia, currently undergoing treatment with lomustine, most recent dose administered on March 07 HOME LIVING Patient Lives With: Family (mother) Assistance Available: 24-Hour Entry To Home: Stairs, With Rail Number Of Stairs Into Home: 7 (2+5) Number Of Stairs To Bed/Bath: 0 Tub/Shower Type: WIS with GB, SC, HHS Laundry: Family assists Equipment Owned: Grab Bars- Shower, Hand Held Shower, Long Handled Sponge, Walker- Wheeled, Elevated Toilet Seat PRIOR FUNCTIONAL LEVEL Within Functional Limits ~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 (-) falls SUBJECTIVE Pt. agreeable to PT THERAPY DIAGNOSIS Reduced mobility-other, Muscle Weakness (generalized) TREATMENT INTERVENTIONS Therapeutic Exercise (41451), Gait Training (21088) Timed Code Treatment (minutes): 24 Skilled Treatment Time (minutes): 24 TRAINING AND EDUCATION PROVIDED Assistive Device Use, Disease Specific Education, Discharge Planning, Exercise Program, Expected Functional Level, Gait Pattern, Reduction of Deviations, Positioning, Transfers, Standing Balance THERAPEUTIC SKILLS USED Activity Dosing, Cues for Sequencing/Proper Technique for Activity, Cuing Tactile, Cuing Verbal, Cuing Visual, Movement Facilitation, Postural Alignment Correction FUNCTIONAL STATUS Bed Mobility Supine To Sit: Stand By Assistance, Additional Information HOB elevated Sit to Supine: Contact Guard Assistance, Additional Information HOB elevated Scooting: Stand By Assistance, Additional Information fwd/retro scooting seated EOB Transfers Sit To Stand: Contact Guard Assistance, Additional Information x3 trials Stand To Sit: Contact Guard Assistance, Additional Information Bed to Chair Gait Contact Guard Assistance, Additional Information Improved ruth ann this date with decreased R foot clearance/shuffling gait. Improved foot clearance with cues. Lateral stepping completed along EOB with B UE support on FWW - x3 lengths of bed Gait Device: Wheeled Walker General Deviations/Observations: Ruth Ann decreased, Flexed trunk posture, Lateral sway increased, Step length decreased, Trunk Control Decreased, Shuffling Gait Gait Distance (feet): 1x150, 1x18 (lateral stepping) Gait Deviations Right Lower Extremity: Knee stability during stance phase decreased, Stance time decreased, Step length decreased, Foot clearance decreased Stairs GOALS Patient will demonstrate progress to optimize functional mobility, maximize activity tolerance and endurance to maximize function upon discharge. Rehab Potential: Good Progress Toward Goals: Progressing as expected ACUTE CARE TREATMENT PLAN PT Frequency: 4 Times Per Week Treatment Interventions: Education, Strengthening, Functional Mobility Training, Balance Training, Neuromuscular Re-education Plan for Next Visit: Gait Training, Standing Balance SIGNATURE: Gokul Childress PT PATIENT NAME: Angel Keating DATE: March 29, 2025 TIME: 12:05 PM CASE MANAGEM Observed: 03/29/2025 11:12 AM Status: COMPLETED Source: [facility] HN ID: [id number] Author: CHRISTINE MEZA, RN Service: Care Management Author Type: Registered Nurse Type: Care Mgt Progress Note Filed: 03/29/2025 16:11 Note Text: CARE MANAGEMENT PROGRESS NOTE SERVICE DATE: 03/29/2025 SERVICE TIME: 11:12 AM LOS: 5 days Needs Prior to Discharge: Precertification Per team note: PLAN: Continue current dose of steroids- will make regimen PO BID for ease of administration and start atovaquone PJP ppx (recommended by outpatient team)/PPI; Continue home dose of lacosamide. PT/OT 03/27 recommends SNF. PT currently 19-17 click score mobility, on RA, has RCW port. Diet: Reg. (Accepting SNF) [facility] add: [address], [place] [id number]. . (No bed available till Thursday). (Tasked to coordinate precert, and 7000 form). Precert started and declined. At 3:12pm. O is offering a P2P by calling [phone] option 1 then option 2. Based on the information from your provider, it is noted that: Your care does not require skilled medical or nursing care. You are not receiving fluids or medication through the vein (IV). You are able to walk to and use the bathroom with minimal trouble. Your care can be provided at home with Home Healthcare, in a Long-Term Care Facility (such as a Fdc) that does not require skilled medical care, or in an Outpatient Facility. Based on CURRENT clinical we are anticipating member will be discharged to Home with [facility]. Please call Bernice SHUKLA at (Medical: [phone], option 1, option 3) extension [phone] for discharge planning assistance. has appt for Thrs 03/30 @4pm for P2P. MMT d/c transport for Thursday03/31/25 @1pm trip # [id number]. (d/c packet in pt chart). 4:02 PM Per family, pt's uncle has called the [facility]. (Accepting SNF) [facility] add: [address] [place] [address]. . (SNF to start precert, [facility] to follow). (Restasked 7000 form). NEED to change form to new SNF in white d/c packet; Call transport to re-route SNF add; RN to RN report # D/C THURSDAY. CM will cont to follow. SIGNATURE: Christine Meza RN PATIENT NAME: Angel Keating DATE: March 29, 2025 TIME: 11:12 AM BAS METAB 1999 PNL SERPL Collected: 3:53 AM Status: F Source: [facility] Order Comment: Specimen Type : BLOOD SPECIMEN Ordering Facility: [facility] Address: [address], [place] [address] TYPE CODE TESTS RESULT OUT OF RANGE REFERENCE UNITS LAB 2345-7(LOINC) Glucose SerPl-mCnc 149 High 74-99 mg/dL Result Comment: The [place] Diabetes Association (ADA) provides guidance for cutoff values for fasting glucose and random glucose. The ADA defines fasting as no caloric intake for at least 8 hours. Fasting plasma glucose results between 100 to 125 mg/dL indicate increased risk for diabetes (prediabetes). Fasting plasma glucose results greater than or equal to 126 mg/dL meet the criteria for diagnosis of diabetes. In the absence of unequivocal hyperglycemia, results should be confirmed by repeat testing. In a patient with classic symptoms of hyperglycemia or hyperglycemic crisis, random plasma glucose results greater than or equal to 200 mg/dL meet the criteria for diagnosis of diabetes. Reference: Standards of Medical Care in Diabetes 2016, [place] Diabetes Association. Diabetes Care. 2016.39(Suppl 1). LAB 3094-0(LOINC) BUN SerPl-mCnc 27 High 9-24 mg/dL LAB 2160-0(LOINC) Creat SerPl-mCnc 1.00 0.73-1.22 mg/dL LAB 2951-2(LOINC) Sodium SerPl-sCnc 135 Low 136-144 mmol/L LAB 2823-3(LOINC) Potassium SerPl-sCnc 4.3 3.7-5.1 mmol/L LAB 2075-0(LOINC) Chloride SerPl-sCnc 105 98-107 mmol/L LAB 2028-9(LOINC) CO2 SerPl-sCnc 21 Low 22-30 mmol/L LAB 08963-5(LOINC) Anion Gap SerPl-sCnc 9 8-15 mmol/L LAB 45454-2(LOINC) Calcium SerPl-mCnc 8.4 Low 8.5-10.2 mg/dL LAB 59555-0(LOINC) eGFRcr SerPlBld CKD-EPI 2020 88 >=60 mL/min/1. 73m??? Result Comment: Estimated Gl omerular Filtration Rate (eGFR) is calculated using the 2020 CKD-EPI creatinine equation. This equation utilizes serum creatinine, sex, and age as parameters. The creatinine assay has traceable calibration to isotope dilution-mass spectrometry. Refer to KDIGO guidelines for clinical interpretation. In patients with unstable renal function, e.g. those with acute kidney injury, the eGFR may not accurately reflect actual GFR. Performed By: #### [id number] # ### [facility] CLIA [id number] [address] [place] [address] [place] CBC PNL BLD AUTO Collected: 5 3:53 AM Status: F Source: [facility] Order Comment: Specimen Type : BLOOD SPECIMEN Ordering Facility: [facility] Address: [address] [place] [address] TYPE CODE TESTS RESULT OUT OF RANGE REFERENCE UNITS LAB 6690-2(LOINC) WBC # Bld Auto 7.08 3.70-11.00 k/uL LAB 789-8(LOINC) RBC # Bld Auto 3.66 Low 4.20-6.00 m/uL LAB 718-7(LOINC) Hgb Bld-mCnc 12.6 Low 13.0-17.0 g/dL LAB 4544-3(LOINC) Hct VFr Bld Auto 35.8 Low 39.0-51.0 % LAB 787-2(LOINC) MCV RBC Auto 97.8 80.0-100.0 fL LAB 785-6(LOINC) MCH RBC Qn Auto 34.4 High 26.0-34.0 pg LAB 786-4(LOINC) MCHC RBC Auto-mCnc 35.2 30.5-36.0 g/dL LAB 60816-2(LOINC) RDW RBC-Rto 14.5 11.5-15.0 % LAB 777-3(LOINC) Platelet # Bld Auto 129 Low 150-400 k/uL Result Comment: Results chec ked and verified.No clot detected. LAB 33051-5(LOINC) PMV Bld Auto 10.5 9.0-12.7 fL LAB 771-6(LOINC) nRBC # Bld Auto 0.03 High <0.01 k/uL Performed By: #### [id number] # ### [facility] CLIA [id number] [address] [place] [address] NUTRITION Observed: 03/28/2025 4:52 PM Status: COMPLETED Source: [facility] HNO ID: [id number] Author: YEIMY BLAS RD Service: Nutrition Therapy Author Type: Registered Dietitian Type: Nutrition Filed: 03/28/2025 16:54 Note Text: NUTRITION THERAPY PROGRESS NOTE SERVICE DATE: 03/28/2025 SERVICE TIME: Start Time: 1430 Nutrition Assessment: Recommended Malnutrition Diagnosis: Mild Protein-Calorie Malnutrition (03/24/25 1726 : Yeimy Blas RD) Care Plan: Continue current diet (ASSIST with FEEDING as needed- due to UE weakness) Supplements: Boost [facility], Ensure Max (NO STRAWBERRY - van/stacie) Vitamins and Minerals: Zinc (please consider ZincSulfate for taste to see if may help) Medications: (once steroids would taper may need appetite stimulant -- follow po and appetite) Labs: Renal Function Panel, Magnesium Monitor and Evaluation: Meet greater than 75% of estimated needs, Monitor labs, I/Os, vital signs, weight, Monitor bowel function Discharge Recommendations: Diet, Oral Supplements, Outpatient Nutrition Therapy appointment Diet: regular Oral Supplements: hi vicente and protein as needed Interval History: eating well. Patient reports still getting food from family / home to supplement selections in the hospital. Still drinking 1-2 nutrition shakes and encourage to continue Intake History: Current Nutrition Intake: Greater than 75% estimated energy needs Current Intake Over time: (x 3 days per patient) Average Daily Calorie Intake (kcal): (> 1800 kcals - including 1-2 nutrition shakes daily and food from home) Average Daily Protein Intake (gm): (> 100 g protein - including 1-2 nutrition shakes daily and food from home) Average intake over: 3 days Dosing Weight: 96 kg (211 lb 10.3 oz) (average of bed wieght and outpt recent weight) Dosing Weight Type: Current weight Estimated kilocalorie needs: 4684-2723 Calorie Calculation Method: 20-25 kcals/kg Estimated protein needs (grams): 110-145 Grams protein determined by: 1.5 - 2.0 g/kg Diet Orders (From admission, onward) Start Ordered 03/25/25 0715 DIET SUPPLEMENTS START NOW Question Answer Comment Supplement 1 (19 years and up) [facility] Supplement 1 Frequency TWICE DAILY WITH MEALS 03/25/25 0702 03/24/25 1315 SUPPLEMENT/SNACK PROVIDED START NOW Question Answer Comment Supplement 1 (19 years and up) ENSURE MAX CHOCOLATE Supplement 1 Frequency BREAKFAST Supplement 2 BOOST [facility] Supplement 2 Frequency LUNCH Supplement 3 (19 years and up) ENSURE MAX CHOCOLATE Supplement 3 Frequency DINNER 03/24/25 1310 03/24/25 1100 DIET REGULAR START NOW 03/24/25 1047 Anthropometrics: Height: 177.8 cm (5' 10) Weight: 94.5 kg (208 lb 5.4 oz) Body mass index is 29.89 kg/m?. Lines, Drains, and Airways None MNT Billing: $ Routine Care : 1 unit Time Spent (mins): 5 SIGNATURE: Yeimy Blas RD PATIENT NAME: Angel Keating DATE: March 28, 2025 TIME: 4:52 PM PROGRESS Observed: 03/28/2025 3:21 PM Status: COMPLETED Source: [facility] HNO ID: [id number] Author: DANUTA GUADARRAMA MD Service: General Internal Medicine Author Type: Physician Type: Progress Notes Filed: 03/28/2025 15:34 Note Text: [facility] STAFF PHYSICIAN NOTE OF PERSONAL INVOLVEMENT IN CARE I have reviewed the progress note obtained and documented by the resident and I personally participated in the mckeon components. I have discussed the case and management of the patient's care. The following comments revise or confirm relevant mckeon components of their note. 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 He has noticed improvement in LE weakness with initiation of steroids and outpatient plan is for treatment with bevacizumab to decrease edema. PLAN: Continue current dose of steroids- will make regimen PO BID for ease of administration and start atovaquone PJP ppx (recommended by outpatient team)/PPI Continue home dose of lacosamide Work on discharge plans for SNF- he is medically ready for discharge SIGNATURE: Danuta Guadarrama MD Solid Tumor Oncology - Progress Note Angel Keating [id number] HOSPITAL DAY: # 4 SUMMARY INTERVAL HISTORY Vitals: HDS, some intervals of HR 40-50s Consultants: - Prim neurooncologist who recommended 1x25mg IV decadron while inpatient, with outpatient dosing until treatment with bevacizumab - rad onc with no intervention at this time - neurosurgery with no intervention at this time (requires presentation at tumor board) PLAN FOR TODAY: - locate eligible SNF PHYSICAL EXAM BP 125/79 Pulse (!) 55 Temp 36.4 ?C (97.5 ?F) (Oral) Resp 18 Ht 177.8 cm (5' 10) Wt 94.5 kg (208 lb 5.4 oz) SpO2 98% BMI 29.89 kg/m? Intake/Output Summary (Last 24 hours) at 03/28/2025 1521 Last data filed at 03/28/2025 1123 Gross per 24 hour Intake -- Output 1800 ml Net -1800 ml General Appearance: Well developed and Well nourished GENERAL: No acute distress; alert and oriented x 3 HEENT: Sclera anicteric. No mucositis. No thrush LUNGS: Clear to auscultation; no wheezing, rhonchi or rales HEART: Regular rhythm; normal rate ABDOMEN: Bowel sounds present; soft, non-tender and not distended EXTREMITIES: No edema. Muscular strength equal in all extremities SKIN: No rash or ecchymosis VENOUS ACCESS: No erythema, tenderness or drainage NEURO: Right and right leg drift +. No weakness with left arm/leg. MEDICATIONS Current Facility-Administered Medications Medication Dose Route Frequency NaCl 0.9% iv flush bag 20 mL INTRAVENOUS PRN ondansetron (PF) 4 mg injection (ZOFRAN) 4 mg INTRAVENOUS q 6 H PRN lacosamide 150 mg tab(s) (VIMPAT) 150 mg ORAL BID pantoprazole DR 40 mg tab(s) (PROTONIX) 40 mg ORAL DAILY traZODone 50 mg tab(s) (DESYREL) 50 mg ORAL AT BEDTIME valACYclovir 500 mg tab(s) (VALTREX) 500 mg ORAL DAILY acetaminophen 1,000 mg tab(s) (TYLENOL) 1,000 mg ORAL/FEEDING TUBE q 8 H PRN senna 8.6 mg tab(s) (SENOKOT) 8.6 mg ORAL/FEEDING TUBE BID polyethylene glycol 3350 17 g packet 17 g ORAL/FEEDING TUBE DAILY PRN dexAMETHasone 8 mg tab(s) (DECADRON) 8 mg ORAL BID w MEALS atovaquone 1,500 mg oral liquid (MEPRON) 1,500 mg ORAL DAILY WITH BREAKFAST DATA Recent Labs 03/28/25 0304 03/27/25 0402 03/26/25 0525 WBC 6.71 8.71 9.62 HB 12.1* 12.1* 11.2* HCT 34.0* 34.5* 31.3* PLT 127* 109* 127* Recent Labs 03/28/25 0304 03/27/25 0402 03/26/25 0525 NA 137 140 139 K 4.3 3.9 4.3 CO2 22 21* 22 BUN 25* 27* 26* CREAT 1.04 1.00 1.05 GLUC 155* 125* 154* IMAGING CTH WO 03/23 1. MODERATELY INCREASED MASS EFFECT IN LEFT FRONTOTEMPORAL REGION, SINCE 02/28/2025, SECONDARY TO INCREASED EXTENSION OF WHITE MATTER INVOLVEMENT, POSSIBLY TREATMENT CHANGE VERSUS TUMORAL EDEMA 2. MILD MIDLINE SHIFT TO THE RIGHT, WITHOUT OTHER HERNIATION 3. NO ACUTE HEMORRHAGE OR INFARCTION ASSESSMENT AND PLAN Active Hospital Problems Diagnosis Vasogenic edema (HCC) Malnutrition of mild degree (HCC) 54-year-old right-handed male with recurrent left temporal glioblastoma multiforme (s/p two resections, GKRS, lomustine, clinical trial therapy), chronic expressive aphasia, now presenting with new right-sided weakness and inability to ambulate, imaging concerning for radiation necrosis vs tumor progression. #New right-sided weakness in both his arm and leg #Glioblastoma CT brain revealed significant interval vasogenic edema, likely secondary to tumor recurrence, with a midline shift of 5.4 mm. - rad onc with no intervention at this time - neurosurgery with no intervention at this time (requires presentation at tumor board) Plan: - IV decadron 4mg q6 - Continue home lacosamide 150mg BID # Malnutrition # Nausea vomiting Weight loss of 5 kg over the past 6 weeks, current weight 95 kg. Likely secondary to chemotherapy-induced nausea and decreased appetite. Plan: - Antiemetics as needed - Nutrition consult - PT/OT CHRONIC PROBLEMS #Psoriasis Chronic scaly, flaky rashes reported on scalp, chest, arms, and legs. Plan: Outpatient follow-up with PCP/dermatology. Exogenous Class 1 Obesity Medication and Non-Pharmacologic VTE Prophylaxis/Anticoagulants Case to be discussed with staff. Arturo Valencia MD Internal Medicine - PGY-I Pager # THERAPY NT Observed: 03/28/2025 12:10 PM Status: COMPLETED Source: [facility] HNO ID: [id number] Author: GOKUL CHILDRESS PT Service: Physical Therapy Author Type: Physical Therapist Type: Therapy (PT/OT/Speech/Resp) Filed: 03/28/2025 12:10 Note Text: Physical Therapy Treatment Summary SERVICE DATE: 03/28/2025 SERVICE TIME: 1137 to 1200 ROOM: [place] [address] PT 6 Clicks Score: 19 Total Joint Replacement Discharge Readiness: Not Applicable DISCHARGE RECOMMENDATIONS Subacute/SNF Recommended Discharge Disposition Due to: Functional deficits requiring ongoing therapy service prior to discharge home., Patient requires daily (5x/week) skilled therapy at next level of care., Functional status decline, Requires multiple therapy disciplines, Balance deficits Anticipated Discharge Needs: Physical Assist at Home, Supervision at Home Physical Assist at Home for: Cleaning, Laundry, Meals, Safety, Stairs, Self Care, Shopping, Transportation Supervision at Home due to: Other: See Comment (For optimal safety) Recommended Discharge Equipment: To Be Determined ASSESSMENT Response to Therapy Interventions: Good Participation in Activities, Improved Tolerance for Activity Patient tolerated session fairly well and able to increase gait distance this date. Patient requiring CGA-Jose for all functional mobility. Patient continuing to present with R sided deficits, R UE with increased weakness comparted to the LE. Ambulation completed with use of FWW at a decreased ruth ann. Patient presenting with decreased R knee stability and shuffling of the R foot, cues for increased foot clearance. Increased lateral sway throughout but no loss of balance. Active participation with all seated LE exercises, R completing exercises in limited ROM due to weakness. Patient returned to supine with call light and all needs met at exit. PRECAUTIONS Fall Risk, Lines/Tubes/Drains, Bed/Chair Alarm CURRENT HOSPITAL COURSE workup for vasogenic edema Relevant Past Medical History: 54-year-old male with a history of glioblastoma and chronic expressive aphasia, currently undergoing treatment with lomustine, most recent dose administered on March 07 HOME LIVING Patient Lives With: Family (mother) Assistance Available: 24-Hour Entry To Home: Stairs, With Rail Number Of Stairs Into Home: 7 (2+5) Number Of Stairs To Bed/Bath: 0 Tub/Shower Type: WIS with GB, SC, HHS Laundry: Family assists Equipment Owned: Grab Bars- Shower, Hand Held Shower, Long Handled Sponge, Walker- Wheeled, Elevated Toilet Seat PRIOR FUNCTIONAL LEVEL Within Functional Limits ~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 (-) falls SUBJECTIVE Pt. agreeable to PT THERAPY DIAGNOSIS Reduced mobility-other, Muscle Weakness (generalized) TREATMENT INTERVENTIONS Therapeutic Exercise (64458), Gait Training (13263) Timed Code Treatment (minutes): 23 Skilled Treatment Time (minutes): 23 TRAINING AND EDUCATION PROVIDED Anatomy and Impact on Deficits, Assistive Device Use, Exercise Program, Expected Functional Level, Falls Prevention, Gait Pattern, Reduction of Deviations, Positioning, Standing Balance, Transfers THERAPEUTIC SKILLS USED Activity Dosing, Cues for Sequencing/Proper Technique for Activity, Cuing Tactile, Cuing Verbal, Cuing Visual, Facilitation of Joint Range of Motion, Movement Facilitation, Physical Assist, Postural Alignment Correction FUNCTIONAL STATUS Bed Mobility Supine To Sit: Stand By Assistance, Additional Information HOB slightly elevated Sit to Supine: Minimal Assistance, Additional Information HOB elevated, assist at R LE Scooting: Stand By Assistance, Additional Information fwd/retro scooting seated EOB Transfers Sit To Stand: Contact Guard Assistance, Additional Information x2 trials Stand To Sit: Contact Guard Assistance, Additional Information cues for safe approach to surface Bed to Chair Gait Contact Guard Assistance, Minimal Assistance, Additional Information Ambulates at a decreased ruth ann with decreased R knee stability, but no true knee buckling. Patient with small shuffle steps on the R, cues for increased foot clearance from ground. Increased lateral sway throughout, but no loss of balance Gait Device: Wheeled Walker General Deviations/Observations: Ruth Ann decreased, Difficulty changing direction/turning, Flexed trunk posture, Lateral sway increased, Non-functional gait speed, Step length decreased, Trunk Control Decreased, Shuffling Gait Gait Distance (feet): 1x120 Gait Deviations Right Lower Extremity: Knee stability during stance phase decreased, Stance time decreased, Step length decreased, Foot clearance decreased Stairs GOALS Patient will demonstrate progress to optimize functional mobility, maximize activity tolerance and endurance to maximize function upon discharge. Rehab Potential: Good Progress Toward Goals: Progressing as expected ACUTE CARE TREATMENT PLAN PT Frequency: 4 Times Per Week Treatment Interventions: Education, Strengthening, Functional Mobility Training, Balance Training, Neuromuscular Re-education Plan for Next Visit: Gait Training, Standing Balance SIGNATURE: Gokul Childress PT PATIENT NAME: Angel Keating DATE: March 28, 2025 TIME: 12:10 PM PLAN OF CARE Observed: 03/28/2025 10:24 AM Status: COMPLETED Source: [facility] HNO ID: [id number] Author: SHI WITT CPhT Service: ? Author Type: Asphalt Screed Operator Type: Plan of Care Filed: 03/28/2025 10:27 Note Text: Reason for test claim: General Medication: Atovaquone Qty: 300mL Day supply: 30 days Cost on Insurance: $15 Does patient have a deductible? No Copay card/voucher available: No Total number of bhat checks: 1 If medication(s) needs to be filled or a prior authorization initiated by pharmacy, please send new prescription(s) over to the preferred pharmacy. Any questions, please reach out to your medication video production coordinator. Thank you (Prices may vary at different pharmacy locations, this is the cost at [facility]) If prior authorization is required, please send medication to designated pharmacy 24-48 hours in advance. Any questions, please reach out the medication video production coordinator. Thank you. (Prices may vary at different pharmacy locations, this is the cost at [facility] on 03/28/2025). CASE MANAGEM Observed: 03/28/2025 9:53 AM Status: COMPLETED Source: [facility] HNO ID: [id number] Author: CHRISTINE MEZA RN Service: Care Management Author Type: Registered Nurse Type: Care Mgt Progress Note Filed: 03/28/2025 09:58 Note Text: CARE MANAGEMENT PROGRESS NOTE SERVICE DATE: 03/28/2025 SERVICE TIME: 9:53 AM LOS: 4 days Needs Prior to Discharge: Precertification, Discharge Transportation, Accepting Facility Per team update: Pt given steroids; nsgy done; per rad onc assessment no intervention. PT/OT 03/27 recommends SNF. PT currently - click score mobility, on RA, has RCW port. Diet: Reg. CM spoke with pt regarding PT/OT rec. SNF list given to pt, referral sent. [place] of Choice Given: Yes Level of Care Discussed: Detention Facility Financial Disclosure Provided: Yes Financial Disclosure Comments: [facility] Provider List: Detention Facility Provider list within the patient's requested geographic area shared with the patient/family: Yes within: 25 miles of zip code: [address] Attestation signed. AWAITING accepting SNF. NEED precert, 7000 form, d/c transport, d/c packet. CM will cont to follow. SIGNATURE: Christine Meza RN PATIENT NAME: Angel Keating DATE: March 28, 2025 TIME: 9:53 AM CASE MANAGEM Observed: 03/28/2025 9:34 AM Status: COMPLETED Source: [facility] HNO ID: [id number] Author: JAHAIRA DÍAZ MD Service: Care Management Author Type: Resident Type: Care Mgt Progress Note Filed: 03/28/2025 09:49 Note Text: CARE MANAGEMENT PROGRESS NOTE SERVICE DATE: 03/28/2025 SERVICE TIME: 9:35 AM LOS: 4 days Physician Certification of Less Than 30 Days Skilled Needs Earliest Possible Discharge Date: 03/28/25 To the best of my knowledge, all information provided about the individual is a true and an accurate reflection of Angel Keating's needs. I certify that following the inpatient level of care, a post-acute nursing facility stay is required for less than 30 days related to the condition(s) for which the patient was treated during the inpatient level of care: Principal Problem: Vasogenic edema (HCC) Active Problems: Malnutrition of mild degree (HCC) Resolved Problems: * No resolved hospital problems. * Attending Physician: Srinivasan Zhao DO SIGNATURE: Christine Meza RN PATIENT NAME: Angel Keating DATE: March 28, 2025 TIME: 9:34 AM CBC PNL BLD AUTO Collected: 3:04 AM Status: F Source: [facility] Order Comment: Specimen Type : BLOOD SPECIMEN Ordering Facility: [facility] Address: [address] [place] [address] TYPE CODE TESTS RESULT OUT OF RANGE REFERENCE UNITS LAB 6690-2(LOINC) WBC # Bld Auto 6.71 3.70-11.00 k/uL LAB 789-8(LOINC) RBC # Bld Auto 3.52 Low 4.20-6.00 m/uL LAB 718-7(LOINC) Hgb Bld-mCnc 12.1 Low 13.0-17.0 g/dL LAB 4544-3(LOINC) Hct VFr Bld Auto 34.0 Low 39.0-51.0 % LAB 787-2(LOINC) MCV RBC Auto 96.6 80.0-100.0 fL LAB 785-6(LOINC) MCH RBC Qn Auto 34.4 High 26.0-34.0 pg LAB 786-4(LOINC) MCHC RBC Auto-mCnc 35.6 30.5-36.0 g/dL LAB 92034-7(LOINC) RDW RBC-Rto 14.7 11.5-15.0 % LAB 777-3(LOINC) Platelet # Bld Auto 127 Low 150-400 k/uL Result Comment: Results chec ked and verified.No clot detected. LAB 43544-3([facility]) PMV Bld Auto 10.3 9.0-12.7 fL LAB 771-6(INC) nRBC # Bld Auto 0.03 High <0.01 k/uL Performed By: #### 94067-1 # ### [facility] CLIA [id number] [address] [place] [address] [place] BAS METAB 2000 PNL SERPL Collected: 3:04 AM Status: F Source: [facility] Order Comment: Specimen Type : BLOOD SPECIMEN Ordering Facility: [facility] Address: [address] [place] [address] TYPE CODE TESTS RESULT OUT OF RANGE REFERENCE UNITS LAB 2345-7(INC) Glucose SerPl-mCnc 155 High 74-99 mg/dL Result Comment: The [place] Diabetes Association (ADA) provides guidance for cutoff values for fasting glucose and random glucose. The ADA defines fasting as no caloric intake for at least 8 hours. Fasting plasma glucose results between 100 to 125 mg/dL indicate increased risk for diabetes (prediabetes). Fasting plasma glucose results greater than or equal to 126 mg/dL meet the criteria for diagnosis of diabetes. In the absence of unequivocal hyperglycemia, results should be confirmed by repeat testing. In a patient with classic symptoms of hyperglycemia or hyperglycemic crisis, random plasma glucose results greater than or equal to 200 mg/dL meet the criteria for diagnosis of diabetes. Reference: Standards of Medical Care in Diabetes 2016, [place] Diabetes Association. Diabetes Care. 2016.39(Suppl 1). LAB 3094-0(LOINC) BUN SerPl-mCnc 25 High 9-24 mg/dL LAB 2160-0(LOINC) Creat SerPl-mCnc 1.04 0.73-1.22 mg/dL LAB 2951-2(LOINC) Sodium SerPl-sCnc 137 136-144 mmol/L LAB 2823-3(LOINC) Potassium SerPl-sCnc 4.3 3.7-5.1 mmol/L LAB 2075-0(LOINC) Chloride SerPl-sCnc 105 98-107 mmol/L LAB 2028-9(LOINC) CO2 SerPl-sCnc 22 22-30 mmol/L LAB 71575-3(LOINC) Anion Gap SerPl-sCnc 10 8-15 mmol/L LAB 86399-5(LOINC) Calcium SerPl-mCnc 8.4 Low 8.5-10.2 mg/dL LAB 76631-0(LOINC) eGFRcr SerPlBld CKD-EPI 2020 84 >=60 mL/min/1. 73m??? Result Comment: Estimated Gl omerular Filtration Rate (eGFR) is calculated using the 2020 CKD-EPI creatinine equation. This equation utilizes serum creatinine, sex, and age as parameters. The creatinine assay has traceable calibration to isotope dilution-mass spectrometry. Refer to KDIGO guidelines for clinical interpretation. In patients with unstable renal function, e.g. those with acute kidney injury, the eGFR may not accurately reflect actual GFR. Performed By: #### 99900-2 # ### [facility] CLIA [id number] [address] [place] [address] [place] PROGRESS Observed: 03/27/2025 6:00 PM Status: COMPLETED Source: [facility] HNO ID: [id number] Author: PATRICIA ENRIQUEZ MD Service: ? Author Type: Physician Type: Progress Notes Filed: 03/28/2025 14:49 Note Text: Summary: BRAIN TUMOR BOARD March 27, 2025 BRAIN TUMOR BOARD March 27, 2025 Participants: Neuroradiology: Dr. Daksha Rahman Neuropathology: Neurosurgery Radiation Oncologist Medical Oncology/Neuro-Oncology Recommendations and comments from the board, see below. I will inform the patient about the recommendations at the earliest opportunity/or next short interval follow up appointment. Patricia Enriquez MD BRAIN TUMOR BOARD March 27, 2025 8 [facility] Multidisciplinary Angel Keating [id number] Glioblastoma Glioblastoma Mina 03/25/25, 02/28/25, 01/17/25 Changes c/w radio necrosis No Unknown 54 o [facility] PMH of resection of Left temporal mass on 03/19/23. Path: GBM, [id number] negative, MGMT unmethylated, and TERTp promotor per TOP Enrolled in [employer], randomized to [id number] IV twice weekly arm + Standard concurrent chemotherapy and radiation (04/20- 05/29/2023) MRI progression in February 2024- Started Lomustine C#1 02/26/24. Enrolled in CASE 3322 clinical trial (with methimazole + chemo). S/P L temporal mass re-do resection 05/27/24. Path: Residual/recurrent glioblastoma, IDH-wildtype (by prior analysis), PATENT PAR[place] WHO grade 4, within a background of radiation-related necrosis and gliosis. GKS with Dr Evans 09/23/24. Continues on Lomustine. Adm 03/24 with new L sided weakness. Treatment option bevacizumab (edwin) radionecrosis regimen. Continue lomustine CNDS Observed: 03/27/2025 2:35 PM Status: COMPLETED Source: [facility] HNO ID: [id number] Author: DANUTA GUADARRAMA MD Service: General Internal Medicine Author Type: Physician Type: Discharge Summary Filed: 03/31/2025 14:54 Note Text: [facility] STAFF PHYSICIAN NOTE OF PERSONAL INVOLVEMENT IN CARE I have reviewed the discharge summary obtained and documented by the resident and I personally participated in the mckeon components. I have discussed the case and management of the patient's care. The following comments revise or confirm relevant mckeon components of their note. IMPRESSION/PLAN: Dr Keating is a 54 year old man with left sided GBM on recent treatment with lomustine (cycle #6 started 03/09) who was admitted with right sided weakness and increasing vasogenic edema with midline shift. He has noticed improvement in weakness with initiation of steroids and outpatient plan is for treatment with bevacizumab to decrease edema (starting next week). He will have ongoing steroids, PJP ppx and PPI as below. He was assessed for SNF stay after discharge however due to ongoing improvement, was SNF stay was not approved by insurance and he will be discharged to home with the assistance of his family today. CARE COORDINATION: Discharge Management: I personally spent less than 30 minutes involved in the discharge management of this patient SIGNATURE: Danuta Guadarrama MD SOLID TUMOR SERVICE DISCHARGE SUMMARY PATIENT NAME: Angel Keating ADMISSION DATE: 03/24/2025 DISCHARGE DATE: 03/31/2025 ATTENDING PHYSICIAN: Srinivasan Zhao DO Code Status: Full Code Highest Readmission Risk Score: 26 The 30 day readmissions risk score is derived from an internally validated risk model which evaluates patient level characteristics, utilization history, medication orders and lab results up until the day of discharge. Patients with a score of 39 or above are considered highest risk for readmission. Specific patient level drivers will be listed at the bottom of the summary. Patient with progressive glioblastoma on MRI perfusion study from 03/25/25 Discharging on 12mg oral decadron every day to be adjusted by his primary neuro-oncologist. He will also receive pantoprazole 40mg every day AND Atovaquone 1500 mg while on high dose steroids Close follow up with Dr. Enriquez outpatient REASON FOR HOSPITALIZATION: hemiplegia FINAL DIAGNOSIS: Hemiplegia 2/2 glioblastoma progression Active Hospital Problems Diagnosis POA Vasogenic edema (HCC) Yes Malnutrition of mild degree (HCC) Yes Resolved Hospital Problems No resolved problems to display. PROCEDURES DURING HOSPITALIZATION: MRI HOSPITAL COURSE: Angel Keating is a 54-year-old male with a history of glioblastoma and chronic expressive aphasia, currently undergoing treatment with lomustine, most recent dose administered on March 07. His course has been complicated by nausea, decreased appetite, and a weight loss 2/2 chemotherapy. On 03/23/25, he experienced new right-sided weakness in both his arm and leg, and he was unable to walk. He presented to the ED at [facility], where he was stable, afebrile on room air, awake, alert, and in no acute distress. Neurologically, he had right arm and leg drift, was unable to perform ojtnzq-[id number] or [id number]-[id number] testing, had mild to moderate expressive aphasia, consistent with his baseline. While inpatient, he was started on decadron 16mg every day for vasogenic edema found on his CT head. A brain MRI perfusion study performed on 03/25 showed new AND enhancing areas in the falx compatible with progressive disease. The patient will require outpatient bevacizumab so the decision was made to discharge the patient to home with PT support given improvement in his strength over the course of his admission. ACUTE PROBLEMS #New right-sided weakness in both his arm and leg, improved #Glioblastoma MRI brain with perfusion study showing progressive disease in the falx; no radiation given history of high doses with poor response. No neurosurgical options currently. Plan: - 12mg oral decadron daily - pantoprzol 40mg every day - Atovaquone 1500 mg - Continue lacosamide 150mg BID # Malnutrition # Nausea vomiting, resolved Weight loss of 5 kg over the past 6 weeks, current weight 95 kg. Likely secondary to chemotherapy-induced nausea and decreased appetite. Plan: - Boost AND ensure supplements - PT/OT outpatient CHRONIC PROBLEMS #Psoriasis Chronic scaly, flaky rashes reported on scalp, chest, arms, and legs. Plan: Outpatient follow-up with PCP/dermatology. PRESENCE OF SEPSIS THIS ADMISSION: No Active Hospital Problems Diagnosis Date Noted POA Vasogenic edema (HCC) 03/24/2025 Yes Malnutrition of mild degree (HCC) 03/24/2025 Yes Resolved Hospital Problems No resolved problems to display. Malnutrition Diagnosis supported by Registered Dietitian:Mild Protein-Calorie Malnutrition Based on: Insufficient Energy Intake Assessment: I have reviewed the result of the malnutrition assessment and plan and agree Plan: Diet, Supplements, Medications, Labs, Vitamin/Mineral Supplements CONSULTING TEAMS DURING HOSPITALIZATION: neurosurgery AND radiation oncology PATIENT CONDITION AT DISCHARGE: Stable DISCHARGE DISPOSITION: Home with Relative PHYSICAL EXAM General Appearance: Well developed and Well nourished GENERAL: No acute distress; alert and oriented x 3 (aphasia with word finding difficulty) HEENT: Sclera anicteric. No mucositis. No thrush LUNGS: Clear to auscultation; no wheezing, rhonchi or rales HEART: Regular rhythm; normal rate ABDOMEN: Bowel sounds present; soft, non-tender and not distended EXTREMITIES: No edema. Muscular strength 4/5 in right upper extremity 5/5 in left upper, 3/5 strength in the right lower extremity AND 4/5 in the left lower extremity SKIN: No rash or ecchymosis VENOUS ACCESS: No erythema, tenderness or drainage NEURO: Right and right leg drift +. No weakness with left arm/leg. DIET: Regular ACTIVITY: ALLERGIES No Known Allergies DISCHARGE MEDICATION: Medication List START taking these medications atovaquone 750 mg/5 mL oral liquid Commonly known as: MEPRON Take 10 mL by mouth daily with breakfast. Start taking on: April 01, 2025 [employer] Outpatient physical therapy CHANGE how you take these medications dexAMETHasone 6 mg tablet Commonly known as: DECADRON Take 1 tablet by mouth two times a day with meals. What changed: medication strength how much to take when to take this CONTINUE taking these medications acetaminophen 325 mg tablet Commonly known as: TYLENOL 2 tablets by ORAL/FEEDING TUBE route every 4 hours as needed for pain. GLEOSTINE 100 mg capsule Generic drug: lomustine Take one 8mg Zofran on an empty stomach in the evening. Wait ONE hour. Take TWO 100mg capsule(s) Lomustine by mouth for a total dose of 200mg. Take one 8 mg Zofran twenty-four hours later. Take on Day 1 of each 42 day cycle. lacosamide 150 mg Tab Commonly known as: VIMPAT Take 1 tablet by mouth two times a day for 180 days. midazolam 5 mg/spray (0.1 mL) nasal spray Commonly known as: NAYZILAM Use 1 [place] in the nose as needed for up to 10 days. May repeat dose in alternate nostril after 10 minutes based on response and tolerability. ondansetron 8 mg tablet Commonly known as: ZOFRAN Take one tablet by mouth on an empty stomach in the evening one hour prior to chemo. Then take one tablet 24 hours after chemo. May repeat dose every 8-12 hours if needed to prevent nausea pantoprazole DR 40 mg tablet Commonly known as: PROTONIX Take 1 tablet by mouth once daily. traZODone 50 mg tablet Commonly known as: DESYREL TAKE 1 TABLET BY MOUTH EVERYDAY AT BEDTIME valACYclovir 500 mg tablet Commonly known as: VALTREX Take 1 tablet by mouth once daily. STOP taking these medications SENNA PO Where to Get Your Medications These medications were sent to [facility] [address] [place] [id number] Hours: Thursday-Thursday, 8am-6pm lacosamide 150 mg Tab These medications were sent to [facility] [address] [place] [id number] Hours: Thursday-Thursday, 8am-6pm atovaquone 750 mg/5 mL oral liquid dexAMETHasone 6 mg tablet valACYclovir 500 mg tablet You can get these medications from any pharmacy Bring a paper prescription for each of these medications Miscellaneous Medical Supply Kit PLAN OF CARE: Plan of care discussed with Provider and Patient FUTURE APPOINTMENTS: Follow Up with Dr. Enriquez for outpatient therapy The patient's risk for 30-day readmission is determined using the following contributing factors: Predictive Model Details 22% (Moderate) Factor Value Calculated 03/27/2025 05:18 33% Hospital Unit HOSP MAIN G070 [facility] READMISSION RISK Model 25% Admission Provider Speciality HEMATOLOGY/ONCOLOGY -13% Facility [facility] -9% Casiano Mike 2 8% Malnutrition 1 -7% diagnosis count 13 -7% ED visits (365d) 0 -6% Admissions (60d) 1 -6% Sodium (Avg) 139 5% Abdias Scale 20 Plan of care discussed with: Provider and Patient Arturo Valencia MD Internal Medicine - PGY-I Pager # THERAPY NT Observed: 03/27/2025 1:59 PM Status: COMPLETED Source: [facility] HNO ID: [id number] Author: GOKUL CHILDRESS PT Service: Physical Therapy Author Type: Physical Therapist Type: Therapy (PT/OT/Speech/Resp) Filed: 03/27/2025 13:59 Note Text: Physical Therapy Evaluation Summary SERVICE DATE: 03/27/2025 SERVICE TIME: 1314 to 1338 ROOM: [place] [address] PT 6 Clicks Score: 19 Total Joint Replacement Discharge Readiness: Not Applicable DISCHARGE RECOMMENDATIONS Subacute/SNF Recommended Discharge Disposition Due to: Functional deficits requiring ongoing therapy service prior to discharge home., Patient requires daily (5x/week) skilled therapy at next level of care., Functional status decline, Requires multiple therapy disciplines, Balance deficits Anticipated Discharge Needs: Physical Assist at Home, Supervision at Home Physical Assist at Home for: Cleaning, Laundry, Meals, Safety, Stairs, Self Care, Shopping, Transportation Supervision at Home due to: Other: See Comment (For optimal safety) Recommended Discharge Equipment: To Be Determined ASSESSMENT Response to Therapy Interventions: Good Participation in Activities, Low Activity Tolerance Patient is AANDOx4, follows commands appropriately, and is an active participant throughout session. Mom present and supportive. Patient presenting with R sided deficits, R UE with greater deficits compared to R LE. Patient requiring SBA for bed mobility and CGA-Jose for all OOB activity. In standing, patient with decreased R knee stability, but no true knee buckling throughout gait. Patient able to ambulate approximately 40 feet with use of FWW. Cues throughout for management of device and for avoidance of obstacles. Upon returning to bed, patient reporting increased fatigue. Education provided on importance of continued mobility, use of AD, and role of PT in hospital. PRECAUTIONS Fall Risk, Lines/Tubes/Drains, Bed/Chair Alarm CURRENT HOSPITAL COURSE workup for vasogenic edema Relevant Past Medical History: 54-year-old male with a history of glioblastoma and chronic expressive aphasia, currently undergoing treatment with lomustine, most recent dose administered on March 07 HOME LIVING Patient Lives With: Family (mother) Assistance Available: 24-Hour Entry To Home: Stairs, With Rail Number Of Stairs Into Home: 7 (2+5) Number Of Stairs To Bed/Bath: 0 Tub/Shower Type: WIS with GB, SC, HHS Laundry: Family assists Equipment Owned: Grab Bars- Shower, Hand Held Shower, Long Handled Sponge, Walker- Wheeled, Elevated Toilet Seat PRIOR FUNCTIONAL LEVEL Within Functional Limits ~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 (-) falls SUBJECTIVE Pt. agreeable to PT, ok per nurse to treat THERAPY DIAGNOSIS Reduced mobility-other, Muscle Weakness (generalized) TREATMENT INTERVENTIONS Evaluation, Therapeutic Activity (87968) Timed Code Treatment (minutes): 9 Skilled Treatment Time (minutes): 24 TRAINING AND EDUCATION PROVIDED Anatomy and Impact on Deficits, Assistive Device Use, Benefits of In-Hospital Mobility, Discharge Planning, Disease Specific Education, Expected Functional Level, Falls Prevention, Gait Pattern, Reduction of Deviations, Positioning, Role of Physical Therapy, Standing Balance, Transfers, Treatment Protocol THERAPEUTIC SKILLS USED Activity Dosing, Cues for Sequencing/Proper Technique for Activity, Cuing Tactile, Cuing Verbal, Cuing Visual, Movement Facilitation, Physical Assist, Postural Alignment Correction FUNCTIONAL STATUS Bed Mobility Supine To Sit: Stand By Assistance, Additional Information HOB slightly elevated Sit to Supine: Stand By Assistance Scooting: Stand By Assistance, Additional Information fwd/retro/lateral scooting Transfers Sit To Stand: Minimal Assistance, Additional Information x1 trial with cues for proper hand placement, decreased R knee stability Stand To Sit: Minimal Assistance, Additional Information cues for safe approach to surface and assist for controlled descent to surface Bed to Chair Gait Contact Guard Assistance, Minimal Assistance, Additional Information Ambulating with a step-to step pattern with use of FWW at decreased ruth ann. Increased lateral sway with occassional Jose to maintain balance. Decreased R knee stability, but no true knee buckling. Cues for management/distancing from device and for path navigation with cues to avoid obstacles Gait Device: Wheeled Walker General Deviations/Observations: Ruth Ann decreased, Difficulty changing direction/turning, Flexed trunk posture, Lateral sway increased, Non-functional gait speed, Step length decreased, Trunk Control Decreased, Improper distancing from assistive device, Visual scanning/environmental awareness decreased Gait Distance (feet): 1x40 Gait Deviations Right Lower Extremity: Knee stability during stance phase decreased, Stance time decreased, Step length decreased Stairs GOALS Patient will demonstrate progress to optimize functional mobility, maximize activity tolerance and endurance to maximize function upon discharge. Rehab Potential: Good Good Rehab Potential Due To: Current objective clinical presentation, Good support system/ coping skills ACUTE CARE TREATMENT PLAN PT Frequency: 4 Times Per Week Treatment Interventions: Education, Strengthening, Functional Mobility Training, Balance Training, Neuromuscular Re-education Plan for Next Visit: Gait Training, Standing Tolerance SIGNATURE: Gokul Childress PT PATIENT NAME: Angel Keating DATE: March 27, 2025 TIME: 1:59 PM THERAPY NT Observed: 03/27/2025 10:52 AM Status: COMPLETED Source: [facility] HNO ID: [id number] Author: VELMA GURROLA, OT/L Service: Occupational Therapy Author Type: Occupational Therapist Type: Therapy (PT/OT/Speech/Resp) Filed: 03/27/2025 10:53 Note Text: Occupational Therapy Evaluation Summary SERVICE DATE: 03/27/2025 SERVICE TIME: 956 to 1026 ROOM: [place] [address] OT 6 Clicks Score: 17 DISCHARGE RECOMMENDATIONS Subacute/SNF Recommended Discharge Disposition Due to: Functional deficits requiring ongoing therapy service prior to discharge home., Patient requires daily (5x/week) skilled therapy at next level of care., ADL impairment, Anticipated community discharge, Dominant side deficits, Functional status decline, Motor planning deficits, Requires multiple therapy disciplines Anticipated Discharge Needs: Undetermined Recommended Discharge Equipment: To Be Determined ASSESSMENT Response to Therapy Interventions: Low Activity Tolerance, Good Participation in Activities, Requires Encouragement to Complete Activities PRECAUTIONS Fall Risk, Lines/Tubes/Drains, Bed/Chair Alarm CURRENT HOSPITAL COURSE workup for vasogenic edema Relevant Past Medical History: 54-year-old male with a history of glioblastoma and chronic expressive aphasia, currently undergoing treatment with lomustine, most recent dose administered on March 07 HOME LIVING Patient Lives With: Family ([employer]) Assistance Available: 24-Hour Entry To Home: Stairs, With Rail Number Of Stairs Into Home: 8 (2+6) Number Of Stairs To Bed/Bath: 0 Tub/Shower Type: WIS with GB, SC, HHS Laundry: Family assists Equipment Owned: Grab Bars- Shower, Hand Held Shower, Long Handled Sponge, Walker- Wheeled, Elevated Toilet Seat PRIOR FUNCTIONAL LEVEL Within Functional Limits ~1wk GROUND LAYER, pt and family report IND with I/ADLs and functional mobility; (+) driving. Baseline Cognition: Oriented to self, Oriented to place, Oriented to time, Oriented to situation SUBJECTIVE I'm exhausted COGNITION Communication Deficits: Expressive Deficits (aphasia at baseline) Orientation Deficits: (AANDOx3-4) Responsiveness: Alert, Awake (flat affect) Cog 6 Start of Session Total Points (Max Score = 24): 22 (03/27/25) Cog 6 End of Session Total Points (Max Score = 24): 23 (03/27/25) 4AT Score: 1 (03/27/25) Delirium Positive/Negative: Negative (03/27/25) Cognitive Activities Performed: EC/WS; d/c planning; TUOS THERAPY DIAGNOSIS Reduced mobility-other, Decreased activities of daily living (ADL), Muscle Weakness (generalized), General symptoms and signs-other, Signs and Symptoms Involving Cognitive Functions and Awareness TREATMENT INTERVENTIONS Evaluation, Therapeutic Activity (50691) Timed Code Treatment (minutes): 15 Skilled Treatment Time (minutes): 30 TRAINING AND EDUCATION PROVIDED Activity Adaptation/Compensatory Strategies, Assistive Device Use, Attention Diversion Techniques, Bed Mobility, Benefits of In-Hospital Mobility, Command Following, Discharge Planning, Exercise Program, Functional Mobility Involving ADLs, Insight into Deficits, Memory/Attention, Orientation, Positioning, Role of Occupational Therapy, Safety/Judgment, Sitting Balance to [place] with ADLs/Self-Care, Standing Balance to [place] with ADLs/Self-Care, Transfer - Sit to Stand THERAPEUTIC SKILLS USED Activity Dosing, Assessment of Tolerance Including Vitals Response to Activity, Cues for Sequencing/Proper Technique for Activity, Cuing Tactile, Cuing Verbal, Cuing Visual, Management of Critical Lines, Tubes and/or Drains, Physical Assist, Repetitive Task Learning, Task Analysis Learning, Teach-Back for Education, Therapeutic Use of Self FUNCTIONAL STATUS Activities of Daily Living Assist Level Additional Information Feeding Set Up Grooming Minimal Assistance Bathing Upper Body Minimal Assistance Bathing Lower Body Moderate Assistance Dressing Upper Body Minimal Assistance Dressing Lower Body Moderate Assistance Toileting Minimal Assistance Mobility Assist Level Additional Information Bed Mobility Supine To Sit: Stand By Assistance Sit To Supine: Stand By Assistance Sit to Stand Minimal Assistance Stand to Sit Contact Guard Assistance Bed to Chair Minimal Assistance (steps to BSC from EOB, declines toilet transfer; returns to EOB.) Bed To Chair Transfer Type: Stepping Bed To Chair Transfer Equipment: (COGNOS ANALYST) Toilet/Commode Shower Functional Mobility GOALS Patient will demonstrate progress to optimize self-care activities, cognitive and/or coping to maximize function upon discharge. Rehab Potential: Good Good Rehab Potential Due To: Good support system/ coping skills Progress Toward Goals: Progressing as expected ACUTE CARE TREATMENT PLAN OT Frequency: Per Next Session Date Treatment Interventions: Education, Self Care/Home Management, Strengthening, Functional Mobility Training, Balance Training Plan for Next Visit: Bed Mobility, Chair/Commode Transfer Training, Coping, Dressing Training, Sit to Stand Transfers, Sitting Balance, Sitting Tolerance, Standing Balance, Standing Tolerance SIGNATURE: Velma Gurrola, OT/L PATIENT NAME: Angel Keating DATE: March 27, 2025 TIME: 10:53 AM PROGRESS Observed: 03/27/2025 6:16 AM Status: COMPLETED Source: [facility] HNO ID: [id number] Author: SRINIVASAN ZHAO DO Service: General Internal Medicine Author Type: Physician Type: Progress Notes Filed: 03/27/2025 17:23 Note Text: Solid Tumor Oncology - Progress Note Angel Keating [id number] HOSPITAL DAY: # 3 SUMMARY INTERVAL HISTORY Vitals: HDS, some intervals of HR 40-50s Consultants: - Prim neurooncologist who recommended 1x25mg IV decadron, MRI perf; will re-engage today regarding treatment options - rad onc with no intervention at this time - neurosurgery with no intervention at this time (requires presentation at tumor board) PLAN FOR TODAY: - Will contact his primary neuro-oncologist today regarding potential therapies for progressive disease - Continue Decadron for vasogenic edema PHYSICAL EXAM BP 108/66 Pulse (!) 51 Temp 36.8 ?C (98.2 ?F) (Oral) Resp 18 Ht 177.8 cm (5' 10) Wt 97.8 kg (215 lb 9.8 oz) SpO2 97% BMI 30.94 kg/m? Intake/Output Summary (Last 24 hours) at 03/27/2025 0616 Last data filed at 03/27/2025 0141 Gross per 24 hour Intake 140 ml Output 650 ml Net -510 ml General Appearance: Well developed and Well nourished GENERAL: No acute distress; alert and oriented x 3 HEENT: Sclera anicteric. No mucositis. No thrush LUNGS: Clear to auscultation; no wheezing, rhonchi or rales HEART: Regular rhythm; normal rate ABDOMEN: Bowel sounds present; soft, non-tender and not distended EXTREMITIES: No edema. Muscular strength equal in all extremities SKIN: No rash or ecchymosis VENOUS ACCESS: No erythema, tenderness or drainage NEURO: Right and right leg drift +. No weakness with left arm/leg. MEDICATIONS Current Facility-Administered Medications Medication Dose Route Frequency NaCl 0.9% iv flush bag 20 mL INTRAVENOUS PRN dexAMETHasone sodium phosphate 4 mg injection (DECADRON) 4 mg INTRAVENOUS q 6 H ondansetron (PF) 4 mg injection (ZOFRAN) 4 mg INTRAVENOUS q 6 H PRN lacosamide 150 mg tab(s) (VIMPAT) 150 mg ORAL BID pantoprazole DR 40 mg tab(s) (PROTONIX) 40 mg ORAL DAILY traZODone 50 mg tab(s) (DESYREL) 50 mg ORAL AT BEDTIME valACYclovir 500 mg tab(s) (VALTREX) 500 mg ORAL DAILY acetaminophen 1,000 mg tab(s) (TYLENOL) 1,000 mg ORAL/FEEDING TUBE q 8 H PRN senna 8.6 mg tab(s) (SENOKOT) 8.6 mg ORAL/FEEDING TUBE BID polyethylene glycol 3350 17 g packet 17 g ORAL/FEEDING TUBE DAILY PRN DATA Recent Labs 03/26/25 0525 03/25/25 0505 03/24/25 0625 WBC 9.62 11.10* 5.14 4.89 HB 11.2* 11.6* 12.3* 12.1* HCT 31.3* 32.6* 34.0* 33.8* PLT 127* 131* 107* 138* Recent Labs 03/26/25 0525 03/25/25 0505 03/24/25 0625 NA 139 140 138 K 4.3 4.2 4.2 CO2 22 19* 19* BUN 26* 21 16 CREAT 1.05 1.06 1.01 GLUC 154* 144* 131* MG -- -- 2.0 IMAGING [facility] WO 03/23 1. MODERATELY INCREASED MASS EFFECT IN LEFT FRONTOTEMPORAL REGION, SINCE 02/28/2025, SECONDARY TO INCREASED EXTENSION OF WHITE MATTER INVOLVEMENT, POSSIBLY TREATMENT CHANGE VERSUS TUMORAL EDEMA 2. MILD MIDLINE SHIFT TO THE RIGHT, WITHOUT OTHER HERNIATION 3. NO ACUTE HEMORRHAGE OR INFARCTION ASSESSMENT AND PLAN Active Hospital Problems Diagnosis Vasogenic edema (HCC) Malnutrition of mild degree (HCC) 54-year-old right-handed male with recurrent left temporal glioblastoma multiforme (s/p two resections, GKRS, lomustine, clinical trial therapy), chronic expressive aphasia, now presenting with new right-sided weakness and inability to ambulate, imaging concerning for radiation necrosis vs tumor progression. #New right-sided weakness in both his arm and leg #Glioblastoma CT brain revealed significant interval vasogenic edema, likely secondary to tumor recurrence, with a midline shift of 5.4 mm. - rad onc with no intervention at this time - neurosurgery with no intervention at this time (requires presentation at tumor board) Plan: - IV decadron 4mg q6 - Continue home lacosamide 150mg BID - re-consult his primary neuro-oncologist # Malnutrition # Nausea vomiting Weight loss of 5 kg over the past 6 weeks, current weight 95 kg. Likely secondary to chemotherapy-induced nausea and decreased appetite. Plan: - Antiemetics as needed - Nutrition consult - PT/OT CHRONIC PROBLEMS #Psoriasis Chronic scaly, flaky rashes reported on scalp, chest, arms, and legs. Plan: Outpatient follow-up with PCP/dermatology. Exogenous Class 1 Obesity Medication and Non-Pharmacologic VTE Prophylaxis/Anticoagulants Case to be discussed with staff. Arturo Valencia MD Internal Medicine - PGY-I Pager # Attending Note I evaluated the patient and personally participated in the mckeon components. I agree with the resident's findings and plan as documented and have discussed the case and management of the patient's care with the resident. Plan of care discussed with: Patient. Signature: Maurajadon DO Pavel Date: March 27, 2025 Time: 5:22 PM CBC W AUTO DIFF BLD Collected: 03/27/2025 4:[address] atus: F Source: [facility] Order Comment: Specimen Type : BLOOD SPECIMEN Ordering Facility: [facility] Address: [address] [place] [address] TYPE CODE TESTS RESULT OUT OF RANGE REFERENCE UNITS LAB 6690-2(LOINC) WBC # Bld Auto 8.71 3.70-11.00 k/uL LAB 789-8(LOINC) RBC # Bld Auto 3.56 Low 4.20-6.00 m/ uL LAB 718-7(LOINC) Hgb Bld-mCnc 12.1 Low 13.0-17.0 g/dL LAB 4544-3(LOINC) Hct VFr Bld Auto 34.5 Low 39.0-51.0 % LAB 787-2(LOINC) MCV RBC Auto 96.9 80.0-100.0 fL LAB 785-6([facility]) MCH RBC Qn Auto 34.0 26.0-34.0 p g LAB 786-4([facility]) MCHC RBC Auto-mCnc 35.1 30.5-36.0 g/dL LAB 80796-0([facility]) RDW RBC-Rto 14.6 11.5-15.0 % LAB 777-3([facility]) Platelet # Bld Auto 109 Low 150-400 k/uL Result Comment: No clot dete cted.Results checked and verified. LAB 03927-2([facility]) PMV Bld Auto 11.9 9.0-12.7 fL LAB 770-8([facility]) Neutrophils/leuk NFr Bld Auto 89.2 % LAB 751-8([facility]) Neutrophils # Bld Auto 7.77 High 1.45-7.50 k/uL LAB 736-9([facility]) Lymphocytes/leuk NFr Bld Auto 4.0 % LAB 731-0([facility]) Lymphocytes # Bld Auto 0.35 Low 1.00-4.00 k/uL LAB 5905-5([facility]) Monocytes/leuk NFr Bld Auto 5.9 % LAB 742-7([facility]) Monocytes # Bld Auto 0.51 <0.87 k/uL LAB 713-8([facility]) Eosinophil/leuk NFr Bld Auto 0.0 % LAB 711-2([facility]) Eosinophil # Bld Auto <0.03 <0.46 k/uL LAB 706-2([facility]) Basophils/leuk NFr Bld Auto 0.1 % LAB 704-7([facility]) Basophils # Bld Auto <0.03 <0.11 k/uL LAB 20396-6([facility]) Imm Granulocytes/christina k NFr Bld Auto 0.8 % LAB 32939-5([facility]) Imm Granulocytes # Bld Auto 0.07 <0.10 k/uL LAB 95650-0([facility]) nRBC/100 WBC Bld-Rto 0.2 /100 WBC LAB 771-6([facility]) nRBC # Bld Auto 0.02 High <0.01 k/u L LAB 75452-5([facility]) Differential method Bld Auto Performed By: #### 47026-1 # ### [facility] CLIA [id number] [address] [place] [address] [place] [address] [place] METAB 2000 PNL SERPL Collected: 4:02 AM Status: F Source: [facility] Order Comment: Specimen Type : BLOOD SPECIMEN Ordering Facility: [facility] Address: [address] [place] [address] TYPE CODE TESTS RESULT OUT OF RANGE REFERENCE UNITS LAB 2345-7(LOINC) Glucose SerPl-mCnc 125 High 74-99 mg/dL Result Comment: The [place] Diabetes Association (ADA) provides guidance for cutoff values for fasting glucose and random glucose. The ADA defines fasting as no caloric intake for at least 8 hours. Fasting plasma glucose results between 100 to 125 mg/dL indicate increased risk for diabetes (prediabetes). Fasting plasma glucose results greater than or equal to 126 mg/dL meet the criteria for diagnosis of diabetes. In the absence of unequivocal hyperglycemia, results should be confirmed by repeat testing. In a patient with classic symptoms of hyperglycemia or hyperglycemic crisis, random plasma glucose results greater than or equal to 200 mg/dL meet the criteria for diagnosis of diabetes. Reference: Standards of Medical Care in Diabetes 2016, [place] Diabetes Association. Diabetes Care. 2016.39(Suppl 1). LAB 3094-0(LOINC) BUN SerPl-mCnc 27 High 9-24 mg/dL LAB 2160-0(LOINC) Creat SerPl-mCnc 1.00 0.73-1.22 mg/dL LAB 2951-2(LOINC) Sodium SerPl-sCnc 140 136-144 mmol/L LAB 2823-3(LOINC) Potassium SerPl-sCnc 3.9 3.7-5.1 mmol/L LAB 2075-0(LOINC) Chloride SerPl-sCnc 106 98-107 mmol/L LAB 2028-9(LOINC) CO2 SerPl-sCnc 21 Low 22-30 mmol/L LAB 14217-7(LOINC) Anion Gap SerPl-sCnc 13 8-15 mmol/L LAB 70319-8(LOINC) Calcium SerPl-mCnc 8.6 8.5-10.2 mg/dL LAB 90333-9(LOINC) eGFRcr SerPlBld CKD-EPI 2020 88 >=60 mL/min/1. 73m??? Result Comment: Estimated Gl omerular Filtration Rate (eGFR) is calculated using the 2020 CKD-EPI creatinine equation. This equation utilizes serum creatinine, sex, and age as parameters. The creatinine assay has traceable calibration to isotope dilution-mass spectrometry. Refer to KDIGO guidelines for clinical interpretation. In patients with unstable renal function, e.g. those with acute kidney injury, the eGFR may not accurately reflect actual GFR. Performed By: #### 11269-3 # ### [facility] CLIA [id number] [address] [place] [address] THERAPY NT Observed: 03/26/2025 3:26 PM Status: COMPLETED Source: [facility] HNO ID: [id number] Author: KARLA DAWSON PT Service: ? Author Type: Physical Therapist Type: Therapy (PT/OT/Speech/Resp) Filed: 03/26/2025 15:28 Note Text: PHYSICAL THERAPY MISSED VISIT SERVICE DATE: 03/26/2025 SERVICE TIME: 1320 ROOM: [place] [address] Patient not seen due to Patient Not Available. SIGNATURE: Karla Dawson PT PATIENT NAME: Angel Keating DATE: March 26, 2025 TIME: 3:26 PM PROGRESS Observed: 03/26/2025 8:58 AM Status: COMPLETED Source: [facility] HNO ID: [id number] Author: ARTURO VALENCIA MD Service: General Internal Medicine Author Type: Resident Type: Progress Notes Filed: 03/26/2025 09:00 Note Text: Solid Tumor Oncology - Progress Note Angel Keating [id number] HOSPITAL DAY: # 2 SUMMARY INTERVAL HISTORY Vitals: HDS, some intervals of HR 40-50s asymptomatic Labs: Mild white count with steroids Consultants: Prim neurooncologist who recommended 1x25mg IV decadron, MRI perf PLAN FOR TODAY: - reach out to neurosurgery regarding new MRI findings - Continue Decadron for vasogenic edema PHYSICAL EXAM BP 103/53 Pulse (!) 49 Temp 36.5 ?C (97.7 ?F) (Axillary) Resp 18 Ht 177.8 cm (5' 10) Wt 97.8 kg (215 lb 9.8 oz) SpO2 96% BMI 30.94 kg/m? Intake/Output Summary (Last 24 hours) at 03/26/2025 0858 Last data filed at 03/26/2025 0629 Gross per 24 hour Intake 387 ml Output 1800 ml Net -1413 ml General Appearance: Well developed and Well nourished GENERAL: No acute distress; alert and oriented x 3 HEENT: Sclera anicteric. No mucositis. No thrush LUNGS: Clear to auscultation; no wheezing, rhonchi or rales HEART: Regular rhythm; normal rate ABDOMEN: Bowel sounds present; soft, non-tender and not distended EXTREMITIES: No edema. Muscular strength equal in all extremities SKIN: No rash or ecchymosis VENOUS ACCESS: No erythema, tenderness or drainage NEURO: Right and right leg drift +. No weakness with left arm/leg. MEDICATIONS Current Facility-Administered Medications Medication Dose Route Frequency NaCl 0.9% iv flush bag 20 mL INTRAVENOUS PRN dexAMETHasone sodium phosphate 4 mg injection (DECADRON) 4 mg INTRAVENOUS q 6 H ondansetron (PF) 4 mg injection (ZOFRAN) 4 mg INTRAVENOUS q 6 H PRN lacosamide 150 mg tab(s) (VIMPAT) 150 mg ORAL BID pantoprazole DR 40 mg tab(s) (PROTONIX) 40 mg ORAL DAILY traZODone 50 mg tab(s) (DESYREL) 50 mg ORAL AT BEDTIME valACYclovir 500 mg tab(s) (VALTREX) 500 mg ORAL DAILY acetaminophen 1,000 mg tab(s) (TYLENOL) 1,000 mg ORAL/FEEDING TUBE q 8 H PRN senna 8.6 mg tab(s) (SENOKOT) 8.6 mg ORAL/FEEDING TUBE BID polyethylene glycol 3350 17 g packet 17 g ORAL/FEEDING TUBE DAILY PRN DATA Recent Labs 03/26/25 0525 03/25/25 0505 03/24/25 0625 WBC 9.62 11.10* 5.14 4.89 HB 11.2* 11.6* 12.3* 12.1* HCT 31.3* 32.6* 34.0* 33.8* PLT 127* 131* 107* 138* Recent Labs 03/26/25 0525 03/25/25 0505 03/24/25 0625 NA 139 140 138 K 4.3 4.2 4.2 CO2 22 19* 19* BUN 26* 21 16 CREAT 1.05 1.06 1.01 GLUC 154* 144* 131* MG -- -- 2.[address] WO 03/23 1. MODERATELY INCREASED MASS EFFECT IN LEFT FRONTOTEMPORAL REGION, SINCE 02/28/2025, SECONDARY TO INCREASED EXTENSION OF WHITE MATTER INVOLVEMENT, POSSIBLY TREATMENT CHANGE VERSUS TUMORAL EDEMA 2. MILD MIDLINE SHIFT TO THE RIGHT, WITHOUT OTHER HERNIATION 3. NO ACUTE HEMORRHAGE OR INFARCTION ASSESSMENT AND PLAN Active Hospital Problems Diagnosis Vasogenic edema (HCC) Malnutrition of mild degree (HCC) 54-year-old right-handed male with recurrent left temporal glioblastoma multiforme (s/p two resections, GKRS, lomustine, clinical trial therapy), chronic expressive aphasia, now presenting with new right-sided weakness and inability to ambulate, imaging concerning for radiation necrosis vs tumor progression. #New right-sided weakness in both his arm and leg #Glioblastoma CT brain revealed significant interval vasogenic edema, likely secondary to tumor recurrence, with a midline shift of 5.4 mm. Plan: - IV decadron 4mg q6 - Continue home lacosamide 150mg BID - Radiation oncology consult - not a candidate for further RT and will likely be best served by neuro-oncology. - Neurosurgery consult # Malnutrition # Nausea vomiting Weight loss of 5 kg over the past 6 weeks, current weight 95 kg. Likely secondary to chemotherapy-induced nausea and decreased appetite. Plan: - Antiemetics as needed - Nutrition consult - PT/OT CHRONIC PROBLEMS #Psoriasis Chronic scaly, flaky rashes reported on scalp, chest, arms, and legs. Plan: Outpatient follow-up with PCP/dermatology. Exogenous Class 1 Obesity Medication and Non-Pharmacologic VTE Prophylaxis/Anticoagulants Case to be discussed with staff. Arturo Valencia MD Internal Medicine - PGY-I Pager # PROGRESS Observed: 03/26/2025 7:13 AM Status: COMPLETED Source: [facility] HNO ID: [id number] Author: SRINIVASAN ZHAO DO Service: General Internal Medicine Author Type: Physician Type: Progress Notes Filed: 03/27/2025 17:23 Note Text: Solid Tumor Oncology - Progress Note Angel Keating [id number] HOSPITAL DAY: # 2 SUMMARY INTERVAL HISTORY Vitals: HDS, some intervals of HR 50s while asleep Labs: No concerns Consultants: Prim neurooncologist who recommended 1x25mg IV decadron, MRI perf -rad onc - neurosurgery PLAN FOR TODAY: - Will contact neurosurg AND rad onc today regarding new evidence of disease in falx on MRI - Continue Decadron for vasogenic edema PHYSICAL EXAM BP 98/58 Pulse (!) 48 Temp 36.6 ?C (97.9 ?F) (Axillary) Resp 18 Ht 177.8 cm (5' 10) Wt 97.8 kg (215 lb 9.8 oz) SpO2 97% BMI 30.94 kg/m? Intake/Output Summary (Last 24 hours) at 03/26/2025 0727 Last data filed at 03/26/2025 0629 Gross per 24 hour Intake 387 ml Output 1800 ml Net -1413 ml General Appearance: Well developed and Well nourished GENERAL: No acute distress; alert and oriented x 3 HEENT: Sclera anicteric. No mucositis. No thrush LUNGS: Clear to auscultation; no wheezing, rhonchi or rales HEART: Regular rhythm; normal rate ABDOMEN: Bowel sounds present; soft, non-tender and not distended EXTREMITIES: No edema. Muscular strength equal in all extremities SKIN: No rash or ecchymosis VENOUS ACCESS: No erythema, tenderness or drainage NEURO: Right and right leg drift +. No weakness with left arm/leg. MEDICATIONS Current Facility-Administered Medications Medication Dose Route Frequency NaCl 0.9% iv flush bag 20 mL INTRAVENOUS PRN dexAMETHasone sodium phosphate 4 mg injection (DECADRON) 4 mg INTRAVENOUS q 6 H ondansetron (PF) 4 mg injection (ZOFRAN) 4 mg INTRAVENOUS q 6 H PRN lacosamide 150 mg tab(s) (VIMPAT) 150 mg ORAL BID pantoprazole DR 40 mg tab(s) (PROTONIX) 40 mg ORAL DAILY traZODone 50 mg tab(s) (DESYREL) 50 mg ORAL AT BEDTIME valACYclovir 500 mg tab(s) (VALTREX) 500 mg ORAL DAILY acetaminophen 1,000 mg tab(s) (TYLENOL) 1,000 mg ORAL/FEEDING TUBE q 8 H PRN senna 8.6 mg tab(s) (SENOKOT) 8.6 mg ORAL/FEEDING TUBE BID polyethylene glycol 3350 17 g packet 17 g ORAL/FEEDING TUBE DAILY PRN DATA Recent Labs 03/26/25 0525 03/25/25 0505 03/24/25 0625 WBC 9.62 11.10* 5.14 4.89 HB 11.2* 11.6* 12.3* 12.1* HCT 31.3* 32.6* 34.0* 33.8* PLT 127* 131* 107* 138* Recent Labs 03/26/25 0525 03/25/25 0505 03/24/25 0625 NA 139 140 138 K 4.3 4.2 4.2 CO2 22 19* 19* BUN 26* 21 16 CREAT 1.05 1.06 1.01 GLUC 154* 144* 131* MG -- -- 2.0 IMAGING CTH WO 03/23 1. MODERATELY INCREASED MASS EFFECT IN LEFT FRONTOTEMPORAL REGION, SINCE 02/28/2025, SECONDARY TO INCREASED EXTENSION OF WHITE MATTER INVOLVEMENT, POSSIBLY TREATMENT CHANGE VERSUS TUMORAL EDEMA 2. MILD MIDLINE SHIFT TO THE RIGHT, WITHOUT OTHER HERNIATION 3. NO ACUTE HEMORRHAGE OR INFARCTION ASSESSMENT AND PLAN Active Hospital Problems Diagnosis Vasogenic edema (HCC) Malnutrition of mild degree (HCC) 54-year-old right-handed male with recurrent left temporal glioblastoma multiforme (s/p two resections, GKRS, lomustine, clinical trial therapy), chronic expressive aphasia, now presenting with new right-sided weakness and inability to ambulate, imaging concerning for radiation necrosis vs tumor progression. #New right-sided weakness in both his arm and leg #Glioblastoma CT brain revealed significant interval vasogenic edema, likely secondary to tumor recurrence, with a midline shift of 5.4 mm. Plan: - IV decadron 4mg q6 - Continue home lacosamide 150mg BID - Radiation oncology consult - new active disease, will re-initiate consult - Neurosurgery consult - will reach out regarding surgical options today # Malnutrition # Nausea vomiting Weight loss of 5 kg over the past 6 weeks, current weight 95 kg. Likely secondary to chemotherapy-induced nausea and decreased appetite. Plan: - Antiemetics as needed - Nutrition consult - PT/OT CHRONIC PROBLEMS #Psoriasis Chronic scaly, flaky rashes reported on scalp, chest, arms, and legs. Plan: Outpatient follow-up with PCP/dermatology. Exogenous Class 1 Obesity Medication and Non-Pharmacologic VTE Prophylaxis/Anticoagulants Case to be discussed with staff. Arturo Valencia MD Internal Medicine - PGY-I Pager # Attending Note I evaluated the patient and personally participated in the mckeon components. I agree with the resident's findings and plan as documented and have discussed the case and management of the patient's care with the resident. Plan of care discussed with: Patient. Signature: Srinivasan Zhao, Date: March 27, 2025 Time: 5:23 PM BAS METAB 2000 PNL SERPL Collected: 5:25 AM Status: F Source: [facility] Order Comment: Specimen Type : BLOOD SPECIMEN Ordering Facility: [facility] Address: [address] [place] [address] TYPE CODE TESTS RESULT OUT OF RANGE REFERENCE UNITS LAB 2345-7(LOINC) Glucose SerPl-mCnc 154 High 74-99 mg/dL Result Comment: The [place] Diabetes [employer] (ADA) provides guidance for cutoff values for fasting glucose and random glucose. The ADA defines fasting as no caloric intake for at least 8 hours. Fasting plasma glucose results between 100 to 125 mg/dL indicate increased risk for diabetes (prediabetes). Fasting plasma glucose results greater than or equal to 126 mg/dL meet the criteria for diagnosis of diabetes. In the absence of unequivocal hyperglycemia, results should be confirmed by repeat testing. In a patient with classic symptoms of hyperglycemia or hyperglycemic crisis, random plasma glucose results greater than or equal to 200 mg/dL meet the criteria for diagnosis of diabetes. Reference: Standards of Medical Care in Diabetes 2016, [place] [employer]. Diabetes Care. 2016.39(Suppl 1). LAB 3094-0(LOINC) BUN SerPl-mCnc 26 High 9-24 mg/dL LAB 2160-0(LOINC) Creat SerPl-mCnc 1.05 0.73-1.22 mg/dL LAB 2951-2(LOINC) Sodium SerPl-sCnc 139 136-144 mmol/L LAB 2823-3(LOINC) Potassium SerPl-sCnc 4.3 3.7-5.1 mmol/L LAB 2075-0(LOINC) Chloride SerPl-sCnc 106 98-107 mmol/L LAB 2028-9(LOINC) CO2 SerPl-sCnc 22 22-30 mmol/L LAB 21876-7(LOINC) Anion Gap SerPl-sCnc 11 8-15 mmol/L LAB 15262-4(LOINC) Calcium SerPl-mCnc 8.5 8.5-10.2 mg/dL LAB 70164-1(LOINC) eGFRcr SerPlBld CKD-EPI 2020 83 >=60 mL/min/1. 73m??? Result Comment: Estimated Gl omerular Filtration Rate (eGFR) is calculated using the 2020 CKD-EPI creatinine equation. This equation utilizes serum creatinine, sex, and age as parameters. The creatinine assay has traceable calibration to isotope dilution-mass spectrometry. Refer to KDIGO guidelines for clinical interpretation. In patients with unstable renal function, e.g. those with acute kidney injury, the eGFR may not accurately reflect actual GFR. Performed By: #### [id number] # ### [facility] CLIA [id number] [address] [place] [address] [place] [facility] CBC W AUTO DIFF BLD Collected: 03/26/2025 5:[address] atus: F Source: [facility] Order Comment: Specimen Type : BLOOD SPECIMEN Ordering Facility: [facility] Address: [address] [place] [address] TYPE CODE TESTS RESULT OUT OF RANGE REFERENCE UNITS LAB 6690-2(LOINC) WBC # Bld Auto 9.62 3.70-11.00 k/uL LAB 789-8(LOINC) RBC # Bld Auto 3.19 Low 4.20-6.00 m/ uL LAB 718-7(LOINC) Hgb Bld-mCnc 11.2 Low 13.0-17.0 g/dL LAB 4544-3(LOINC) Hct VFr Bld Auto 31.3 Low 39.0-51.0 % LAB 787-2(LOINC) MCV RBC Auto 98.1 80.0-100.0 fL LAB 785-6(LOINC) MCH RBC Qn Auto 35.1 High 26.0-34.0 p g LAB 786-4(LOINC) MCHC RBC Auto-mCnc 35.8 30.5-36.0 g/dL LAB 42301-0(LOINC) RDW RBC-Rto 14.6 11.5-15.0 % LAB 777-3(LOINC) Platelet # Bld Auto 127 Low 150-400 k/uL Result Comment: Results chec ked and verified.No clot detected. LAB 99212-7(LOINC) PMV Bld Auto 11.7 9.0-12.7 fL LAB 770-8(LOINC) Neutrophils/leuk NFr Bld Auto 91.1 % LAB 751-8(LOINC) Neutrophils # Bld Auto 8.76 High 1.45-7.50 k/uL LAB 736-9(LOINC) Lymphocytes/leuk NFr Bld Auto 3.4 % LAB 731-0(LOINC) Lymphocytes # Bld Auto 0.33 Low 1.00-4.00 k/uL LAB 5905-5(LOINC) Monocytes/leuk NFr Bld Auto 4.9 % LAB 742-7(LOINC) Monocytes # Bld Auto 0.47 <0.87 k/uL LAB 713-8(LOINC) Eosinophil/leuk NFr Bld Auto 0.1 % LAB 711-2(INC) Eosinophil # Bld Auto <0.03 <0.46 k/uL LAB 706-2(INC) Basophils/leuk NFr Bld Auto 0.1 % LAB 704-7(LOINC) Basophils # Bld Auto <0.03 <0.11 k/uL LAB 19316-7(LOINC) Imm Granulocytes/christina k NFr Bld Auto 0.4 % LAB 83063-7(LOINC) Imm Granulocytes # Bld Auto 0.04 <0.10 k/uL LAB 71901-2(LOINC) nRBC/100 WBC Bld-Rto 0.0 /100 WBC LAB 771-6(INC) nRBC # Bld Auto <0.01 <0.01 k/u L LAB 18283-2(INC) Differential method Bld Auto Performed By: #### [id number] # ### [facility] CLIA [id number] [address] [place] [address] [place] MRI BRAIN WO/W IVCON Observed: 5 9:02 AM Status: F [facility] * * *Final Report* * * DATE OF EXAM: Mar 25 2025 9:02AM QBM 0295 - MRI BRAIN WO/W IVCON / PROCEDURE REASON: Brain/PATENT PARALEGAL neoplasm, assess treatment response * * * * Physician Interpretation * * * * EXAMINATION: MRI BRAIN WO/W IVCON CLINICAL HISTORY: GBM. TECHNIQUE: Routine brain MRI protocol without and with contrast including diffusion images. Perfusion with gadolinium. MQ: [id number] Contrast: 18 mL dotarem IV COMPARISON: MRI brain from February 28, 2025 RESULT: Postop: Status post left temporal craniotomy. Again noted is heterogeneous susceptibility artifact and a fluid fluid level in the left middle cranial fossa from prior resection. Small amount of subgaleal blood byproducts are also identified superficial to the temporal craniotomy. Acute Change: There is no evidence of restricted diffusion to suggest an acute infarct. Hemorrhage: Again noted are hemorrhagic blood byproducts in the left middle cranial fossa resection site. Mass Lesion/ Mass Effect: There is interval increase in size of the residual enhancing lesion involving the remaining left amygdala and left hippocampal head and also extends superiorly into the left external capsule and left putamen. Overall size of this enhancing lesion is 2.3 x 2.7 x 2.0 cm up from 2.5 x 2.2 x 1.3 cm. The vasogenic edema on T2 and FLAIR throughout the residual left temporal lobe, left insula and left frontal lobe have markedly increased in the interim. Edema now extends into the posterior limb internal capsule and lateral aspect of left thalamus. There is interval increase in size in the focus of enhancement adjacent to the falx and left medial superior frontal gyrus now measuring 7 x 10 x 14 mm (series 16 image 23 and series 17 image 26) up from 5 x 8 x 13 mm. There is also a new lesion along the left aspect of the falx which measures 7 x 3 x 14 mm (series 16 image 18; series 17 image 19). No evidence of leptomeningeal disease. No elevated CBV on perfusion exam. No significant mass effect. Chronic Change: The white matter is within normal limits of signal intensity for age. Parenchyma: No significant volume loss for age. The brain parenchyma is otherwise within normal limits of signal intensity and morphology. Ventricles: Normal caliber and morphology. Skull Base: Hypothalamic and pituitary region are grossly normal. Craniocervical junction is normal. No significant marrow replacement process. Vasculature: Major intracranial arterial structures, and dural venous sinuses show typical flow void, suggesting patency by spin echo criteria. Other: The visualized paranasal sinuses and mastoid air cells are clear. The orbits and extracranial soft tissues are unremarkable. IMPRESSION: New and increasing enhancing small lesions adjacent to the left half of the falx compatible with progressive disease. Interval increase in size of the enhancement in the left mesial temporal lobe and left intralenticular region with increased vasogenic edema. However no elevated CBV associated with this area. No evidence of leptomeningeal disease. Call Worker Person: PSCB Transcribe Date/Time: Mar 25 2025 9:00A Dictated by : GUNJAN HONEYCUTT MD This examination was interpreted and the report reviewed and electronically signed by: GUNJAN HONEYCUTT MD on Mar 25 2025 9:11AM EST [id number] ALLIED HEALTH Observed: 03/25/2025 8:33 AM Status: COMPLETED Source: [facility] HNO ID: [id number] Author: NEL SAMSON RT(Keegan) Service: Radiology Author Type: Tracer Lathe Set Up Operator Type: Allied Health Filed: 03/25/2025 08:33 Note Text: Radiology Service Progress Note PATIENT NAME: Angel Keating DATE OF SERVICE: March 25, 2025 TIME: 8:33 AM PATIENT IDENTITY VERIFICATION COMPLETED USING TWO (2) IDENTIFIERS: Name and Date of confirmed by patient verbally and Name and Date of confirmed by identification band. FALL SCREENING: Has the patient had 2 falls in the last year or 1 fall with injury or currently using an Ambulatory Assistive Device (Walker, Cane, Wheelchair, Crutches, etc.)? Inpatient: Screened on floor PATIENT GENDER DATA: Assigned male at PATIENT RELEVANT IMPLANT DATA REVIEWED: Yes PATIENT PRESENTS WITH AN IMPLANTABLE OR ATTACHED PLATE FINISHER: No RADIOLOGY DEPARTMENT: MR; Exam(s) Completed: Head: Routine Brain with Perfusion. Aromatherapy Administered: No PERIPHERAL IV DATA: Inpatient: see LDA documentation SIGNED BY: RT Freddie(R) March 25, 2025 8:33 AM NURSING PROG Observed: 03/25/2025 8:24 AM Status: COMPLETED Source: [facility] HNO ID: [id number] Author: ANGELES ALEJO RN Service: Nursing Author Type: Registered Nurse Type: Nursing Progress Note Filed: 03/25/2025 08:25 Note Text: Radiology Service Progress Note DATE OF SERVICE: March 25, 2025 TIME: 8:24 AM PATIENT WEIGHT: 215LBS PATIENT IDENTITY VERIFICATION COMPLETED USING TWO (2) STANDARD IDENTIFIERS: Name and Date of confirmed by patient verbally and Name and Date of confirmed by identification band. FALL SCREENING: Has the patient had 2 falls in the last year or 1 fall with injury or currently using an Ambulatory Assistive Device (Walker, Cane, Wheelchair, Crutches, etc.)? Inpatient: Screened on floor PATIENT GENDER DATA: Assigned male at ALLERGIES: Reviewed and unchanged CONTRAST ALLERGY: No EXAM: MRI - CONTRAST TYPE: GROUP II IV SITE: Inpatient - refer to [facility] documentation IV SITE APPEARANCE: Clean,Dry and Intact SIGNATURE: Angeles Alejo RN PATIENT NAME: Angel Keating DATE: March 25, 2025 TIME: 8:24 AM PROGRESS Observed: 03/25/2025 6:55 AM Status: COMPLETED Source: [facility] HNO ID: [id number] Author: SRINIVASAN ZHAO DO Service: Oncology Author Type: Physician Type: Progress Notes Filed: 03/25/2025 16:20 Note Text: Solid Tumor Oncology - Progress Note Angel Keating [id number] HOSPITAL DAY: # 1 SUMMARY INTERVAL HISTORY Vitals: HDS, some intervals of HR 40-50s asymptomatic Labs: Mild white count with steroids Consultants: Prim neurooncologist who recommended 1x25mg IV decadron, MRI perf PLAN FOR TODAY: - Arrange from MRI brain with perf sequence - Continue Decadron for vasogenic edema PHYSICAL EXAM BP 109/51 Pulse (!) 53 Temp 36.4 ?C (97.5 ?F) (Oral) Resp 18 Ht 177.8 cm (5' 10) Wt 97.8 kg (215 lb 9.8 oz) SpO2 97% BMI 30.94 kg/m? Intake/Output Summary (Last 24 hours) at 03/25/2025 0655 Last data filed at 03/24/2025 1507 Gross per 24 hour Intake 50 ml Output 500 ml Net -450 ml General Appearance: Well developed and Well nourished GENERAL: No acute distress; alert and oriented x 3 HEENT: Sclera anicteric. No mucositis. No thrush LUNGS: Clear to auscultation; no wheezing, rhonchi or rales HEART: Regular rhythm; normal rate ABDOMEN: Bowel sounds present; soft, non-tender and not distended EXTREMITIES: No edema. Muscular strength equal in all extremities SKIN: No rash or ecchymosis VENOUS ACCESS: No erythema, tenderness or drainage NEURO: Right and right leg drift +. No weakness with left arm/leg. MEDICATIONS Current Facility-Administered Medications Medication Dose Route Frequency NaCl 0.9% iv flush bag 20 mL INTRAVENOUS PRN dexAMETHasone sodium phosphate 4 mg injection (DECADRON) 4 mg INTRAVENOUS q 6 H ondansetron (PF) 4 mg injection (ZOFRAN) 4 mg INTRAVENOUS q 6 H PRN lacosamide 150 mg tab(s) (VIMPAT) 150 mg ORAL BID pantoprazole DR 40 mg tab(s) (PROTONIX) 40 mg ORAL DAILY traZODone 50 mg tab(s) (DESYREL) 50 mg ORAL AT BEDTIME valACYclovir 500 mg tab(s) (VALTREX) 500 mg ORAL DAILY acetaminophen 1,000 mg tab(s) (TYLENOL) 1,000 mg ORAL/FEEDING TUBE q 8 H PRN iv contrast (radiology procedure) INTRAVENOUS DIRECTED PRN DATA Recent Labs 03/25/25 0505 03/24/25 0625 WBC 11.10* 5.14 4.89 HB 11.6* 12.3* 12.1* HCT 32.6* 34.0* 33.8* PLT 131* 107* 138* Recent Labs 03/25/25 0505 03/24/25 0625 NA 140 138 K 4.2 4.2 CO2 19* 19* BUN 21 16 CREAT 1.06 1.01 GLUC 144* 131* MG -- 2.0 IMAGING CTH WO 03/23 1. MODERATELY INCREASED MASS EFFECT IN LEFT FRONTOTEMPORAL REGION, SINCE 02/28/2025, SECONDARY TO INCREASED EXTENSION OF WHITE MATTER INVOLVEMENT, POSSIBLY TREATMENT CHANGE VERSUS TUMORAL EDEMA 2. MILD MIDLINE SHIFT TO THE RIGHT, WITHOUT OTHER HERNIATION 3. NO ACUTE HEMORRHAGE OR INFARCTION ASSESSMENT AND PLAN Active Hospital Problems Diagnosis Vasogenic edema (HCC) Malnutrition of mild degree (HCC) 54-year-old right-handed male with recurrent left temporal glioblastoma multiforme (s/p two resections, GKRS, lomustine, clinical trial therapy), chronic expressive aphasia, now presenting with new right-sided weakness and inability to ambulate, imaging concerning for radiation necrosis vs tumor progression. #New right-sided weakness in both his arm and leg #Glioblastoma CT brain revealed significant interval vasogenic edema, likely secondary to tumor recurrence, with a midline shift of 5.4 mm. Plan: - IV decadron 4mg q6 - Continue home lacosamide 150mg BID - Radiation oncology consult - not a candidate for further RT and will likely be best served by neuro-oncology. - Neurosurgery consult - Recommend obtaining MRI brain wwo + perfusion sequences # Malnutrition # Nausea vomiting Weight loss of 5 kg over the past 6 weeks, current weight 95 kg. Likely secondary to chemotherapy-induced nausea and decreased appetite. Plan: - Antiemetics as needed - Nutrition consult - PT/OT CHRONIC PROBLEMS #Psoriasis Chronic scaly, flaky rashes reported on scalp, chest, arms, and legs. Plan: Outpatient follow-up with PCP/dermatology. Exogenous Class 1 Obesity Medication and Non-Pharmacologic VTE Prophylaxis/Anticoagulants Case to be discussed with staff. Jahaira Díaz MD Internal Medicine Resident - PGY3 [facility] March 25, 2025 6:55 AM [phone] Attending Note I evaluated the patient and personally participated in the mckeon components. I agree with the resident's findings and plan as documented and have discussed the case and management of the patient's care with the resident. Plan of care discussed with: Patient. Signature: Srinivasan Zhao DO Date: March 25, 2025 Time: 4:19 PM BAS METAB 2000 PNL SERPL Collected: 5:05 AM Status: F Source: [facility] Order Comment: Specimen Type : BLOOD SPECIMEN Ordering Facility: [facility] Address: [address] [place] [address] TYPE CODE TESTS RESULT OUT OF RANGE REFERENCE UNITS LAB 2345-7(LOINC) Glucose SerPl-[facility] 144 High 74-99 mg/dL Result Comment: The [place] Diabetes [employer] (ADA) provides guidance for cutoff values for fasting glucose and random glucose. The ADA defines fasting as no caloric intake for at least 8 hours. Fasting plasma glucose results between 100 to 125 mg/dL indicate increased risk for diabetes (prediabetes). Fasting plasma glucose results greater than or equal to 126 mg/dL meet the criteria for diagnosis of diabetes. In the absence of unequivocal hyperglycemia, results should be confirmed by repeat testing. In a patient with classic symptoms of hyperglycemia or hyperglycemic crisis, random plasma glucose results greater than or equal to 200 mg/dL meet the criteria for diagnosis of diabetes. Reference: Standards of Medical Care in Diabetes 2016, [place] [employer]. Diabetes Care. 2016.39(Suppl 1). LAB 3094-0(LOINC) BUN SerPl-mCnc 21 9-24 mg/dL LAB 2160-0(LOINC) Creat SerPl-mCnc 1.06 0.73-1.22 mg/dL LAB 2951-2(LOINC) Sodium SerPl-sCnc 140 136-144 mmol/L LAB 2823-3(LOINC) Potassium SerPl-sCnc 4.2 3.7-5.1 mmol/L LAB 2075-0(LOINC) Chloride SerPl-sCnc 108 High 98-107 mmol/L LAB 2028-9(LOINC) CO2 SerPl-sCnc 19 Low 22-30 mmol/L LAB 41198-5(LOINC) Anion Gap SerPl-sCnc 13 8-15 mmol/L LAB 64795-5(LOINC) Calcium SerPl-mCnc 8.5 8.5-10.2 mg/dL LAB 94557-6(LOINC) eGFRcr SerPlBld CKD-EPI 2020 82 >=60 mL/min/1. 73m??? Result Comment: Estimated Gl omerular Filtration Rate (eGFR) is calculated using the 2020 CKD-EPI creatinine equation. This equation utilizes serum creatinine, sex, and age as parameters. The creatinine assay has traceable calibration to isotope dilution-mass spectrometry. Refer to KDIGO guidelines for clinical interpretation. In patients with unstable renal function, e.g. those with acute kidney injury, the eGFR may not accurately reflect actual GFR. Performed By: #### [id number] # ### [facility] CLIA [id number] [address] [place] [address] [place] CBC PNL BLD AUTO Collected: 5 5:05 AM Status: F Source: [facility] Comment: Specimen Type : BLOOD SPECIMEN Ordering Facility: [facility] Address: [address] [place] [address] TYPE CODE TESTS RESULT OUT OF RANGE REFERENCE UNITS LAB 6690-2(LOINC) WBC # Bld Auto 11.10 High 3.70-11.00 k/uL LAB 789-8(LOINC) RBC # Bld Auto 3.37 Low 4.20-6.00 m/uL LAB 718-7(LOINC) Hgb Bld-mCnc 11.6 Low 13.0-17.0 g/dL LAB 4544-3(LOINC) Hct VFr Bld Auto 32.6 Low 39.0-51.0 % LAB 787-2(LOINC) MCV RBC Auto 96.7 80.0-100.0 fL LAB 785-6(LOINC) MCH RBC Qn Auto 34.4 High 26.0-34.0 pg LAB 786-4(LOINC) MCHC RBC Auto-mCnc 35.6 30.5-36.0 g/dL LAB 96209-5(LOINC) RDW RBC-Rto 14.4 11.5-15.0 % LAB 777-3(LOINC) Platelet # Bld Auto 131 Low 150-400 k/uL LAB 56627-0(LOINC) PMV Bld Auto 11.2 9.0-12.7 fL LAB 771-6(LOINC) nRBC # Bld Auto <0.01 <0.01 k/uL Performed By: #### [id number] # ### [facility] CLIA [id number] [address] [place] [address] [place] CONSULT Observed: 03/24/2025 10:35 PM Status: COMPLETED Source: [facility] HNO ID: [id number] Author: JOSE EVANS MD Service: Neurosurgery Author Type: Physician Type: Consults Filed: 03/27/2025 12:34 Note Text: NEUROSURGERY CONSULT HISTORY AND PHYSICAL EXAMINATION PLEASE DO NOT REMOVE FROM THE CHART OR MODIFY PRINTED COPY Patient Name: Angel Keating CONSULTED BY: STO CONSULTED FOR: hx GBM CHIEF COMPLAINT: R sided weakness HPI: 54 year old right-handed male with PMH significant for GBM s/p resection x2 (03/21/2023 and 05/27/2024, Dr. Evans) and GKRS (09/23/2024, Dr. Evans) c/b left sided hygroma and chronic subdural hematoma, chronic expressive aphasia, presenting with new R sided weakness resulting in inability to walk. MRI brain 01/17/2025 revealed evolving post-therapy changes with progressive nodular enhancement and T2 signal abnormalities c/f tumor progression vs radiation necrosis. MRI brain 02/28/25 interval increase in nodular enhancement along medial aspect of resection cavity without increase CBV, which more likely represents radiation necrosis. However requires short term follow up with MRI brain wwo with perfusion sequences to rule out progression. Labs showed pancytopenia (WBC 3.4, Hgb 12.1, PLT 141), creatinine of 1.16, and normal electrolytes. Brief neurosurgical history: - 03/21/23: L crani for L temporal GBM resection (path: glioblastoma multiforme (GBM), [id number] negative, MGMT unmethylated, and TERTp promotor per TOP) - enrolled in [facility] trial, randomized to receive radiation therapy, temozolomide, and [id number] during concurrent therapy. He has completed seven cycles of adjuvant temozolomide per protocol, with [id number] being administered continuously twice weekly since 04/20/2023 - 05/27/24: re-do L crani for L temporal GBM resection - 07/28/2024: Lomustine started - 09/23/24: GKRS, 60 Gy total to L temporal (and 30 Gy L ant falx, 30 Gy L sup front, 30 Gy L tent) Denies recent episodes of chest pain/SOB, fever/chills, abdominal pain, nausea/emesis, blurry vision, seizures, traumas/falls Anti-platelets/anti-coagulants: none PAST MEDICAL HISTORY: PAST MEDICAL HISTORY Diagnosis Date At risk for seizures 03/19/2023 due to left temporal glioblastoma GBM (glioblastoma multiforme) (HCC) 03/19/2023 WHO Grade 4 GBM; IDH1 R132H negative (wildtype); ATRX retained (wildtype); BRAF V600E negative (wildtype); p53 strong up to 40%; Ki67 up to 25%, MGMT unmethylated PAST SURGICAL HISTORY: PAST SURGICAL HISTORY Procedure Laterality Date APPENDECTOMY 1977 removed as part of internal bleeding due to trauma COLONOSCOPY FLX DX W/COLLJ SPEC WHEN PFRMD Colonoscopy ESOPHAGOGASTRODUODENOSCOPY TRANSORAL DIAGNOSTIC EGD EXCIS SUPRATENT BRAIN TUMOR 03/19/2023 Left-sided craniotomy for temporal mass resection by Dr. Evans; path = GBM ORTHOPEDICS SURGERY HX 1997 knee surgery SHX CRANIOTOMY Left 03/19/2023 FAMILY HISTORY: FAMILY HISTORY Problem Relation Age of Onset Diabetes Father Coronary Artery Disease Father Stroke Father Breast Cancer Mother None Sister Anesthesia Problems No Family History SOCIAL HISTORY: SOCIAL HISTORY[1] MEDICATIONS: lomustine (GLEOSTINE) 100 mg capsuleTake one 8mg Zofran on an empty stomach in the evening. Wait ONE hour. Take TWO 100mg capsule(s) Lomustine by mouth for a total dose of 200mg. Take one 8 mg Zofran twenty-four hours later. Take on Day 1 of each 42 day cycle.Disp: 2 capsuleRfl: 2 valACYclovir (VALTREX) 500 mg tabletTAKE 1 TABLET BY MOUTH EVERY DAYDisp: 30 tabletRfl: 2 traZODone (DESYREL) 50 mg tabletTAKE 1 TABLET BY MOUTH EVERYDAY AT BEDTIMEDisp: 30 tabletRfl: 2 dexAMETHasone (DECADRON) 2 mg tabletTake 1 tablet by mouth daily with breakfast.Disp: 30 tabletRfl: 2 (Patient not taking: Reported on 01/19/2025) pantoprazole DR (PROTONIX) 40 mg tabletTake 1 tablet by mouth once daily.Disp: 30 tabletRfl: 2 lacosamide (VIMPAT) 150 mg tabTake 1 tablet by mouth two times a day.Disp: 180 tabletRfl: 4 ondansetron (ZOFRAN) 8 mg tabletTake one tablet by mouth on an empty stomach in the evening one hour prior to chemo. Then take one tablet 24 hours after chemo. May repeat dose every 8-12 hours if needed to prevent nauseaDisp: 30 tabletRfl: 2 midazolam (NAYZILAM) 5 mg/spray (0.1 mL) nasal sprayUse 1 [place] in the nose as needed for up to 10 days. May repeat dose in alternate nostril after 10 minutes based on response and tolerability.Disp: 4 EachRfl: 2 sennosides (SENNA ORAL)Take by mouth.Disp: Rfl: (Patient not taking: Reported on 08/12/2024) acetaminophen (TYLENOL) 325 mg tablet2 tablets by ORAL/FEEDING TUBE route every 4 hours as needed for pain.Disp: Rfl: No current facility-administered medications for this encounter. ALLERGIES: ALLERGIES No Known Allergies COMPLETE REVIEW OF SYSTEMS: See HPI PHYSICAL EXAM: AOx2 (person, year) PERRL, EOMI Receptive expressive aphasia with dysarthria R sup>inf quad VF deficit R FD, TM RUE 4/5 drift to bed LUE 5/5, no drift BLE 5/5 Decreased sensation in R hemibody DATA: Radiology: See HPI Laboratory: Recent Labs 03/24/25 0625 WBC 5.14 4.89 HB 12.3* 12.1* HCT 34.0* 33.8* PLT 107* 138* INR 1.1 APTT 29.1 NA 138 K 4.2 CHLOR 107 CO2 19* BUN 16 CREAT 1.01 GLUC 131* CA 9.3 MG 2.0 P 2.8 ASSESSMENT AND PLAN: 54 RHM PMH GBM s/p resection x2 (03/21/2023 and 05/27/2024, Dr. Evans) and GKRS (09/23/2024, Dr. Evans) c/b left sided hygroma and chronic subdural hematoma, chronic expressive aphasia, presenting with new R sided weakness resulting in inability to walk. MRI brain 02/28/25 showed interval increase in nodular enhancement along medial aspect of resection cavity without increase CBV, which more likely represents radiation necrosis. Neurosurgery consulted for further assessment. - No indication for acute neurosurgical intervention at this time - Recommend obtaining MRI brain wwo + perfusion sequences - Recommend consult to neuro-oncology for consideration of systemic therapies - Further management decisions pending Tumor Board discussion - Neurosurgery will follow less actively for MRI Rest per primary. Above plan discussed with staff, Dr. Zapata. Nael Gray MD PGY-2, Neurological Surgery Pager: [phone] Please page [phone] after 6pm, on weekends, or if unable to reach the above + Karla Ware MD Neurosurgery PGY-1 Pager: [phone] Please page [phone] after 6pm, on weekends, or if unable to reach the above [facility] STAFF: TEACHING PHYSICIAN NOTE OF PERSONAL INVOLVEMENT IN CARE I have reviewed the progress note obtained and documented by the Resident and I personally participated in the mckeon components. I have discussed the case and management of the patient's care with the team. The following comments revise or confirm relevant mckeon components of the note. IMPRESSION: as above. MRI shows multifocal progression although the insular part is perfusion negative that could be pseudo progression. Discussed with Dr. Fraire from neuro-oncology. Given the multi focality, surgery is not a good option and plan is to start Avastin per neuro-oncology, PLAN: as above. Steroid for brain edema Neuro-oncology consult Will sign off from neurosurgery Discussed with patient and at bedside Jose Evans MD Beeper Number: [id number] Date and Time of Service: March 27, 2025 12:32 PM [1] Social History Tobacco Use Smoking status: Former Current packs/day: 1.00 Average packs/day: 1 pack/day for 4.0 years (4.0 ttl pk-yrs) Types: Cigarettes, Cigars Smokeless tobacco: Never Vaping Use Vaping status: Never Used Substance Use Topics Alcohol use: Not Currently Comment: three beers a month - per pt [id number] Drug use: Never NUTRITION Observed: 03/24/2025 5:39 PM Status: COMPLETED Source: [facility] HNO ID: [id number] Author: YEIMY BLAS RD Service: Nutrition Therapy Author Type: Registered Dietitian Type: Nutrition Filed: 03/24/2025 17:41 Note Text: NUTRITION THERAPY INITIAL ASSESSMENT SERVICE DATE: 03/24/2025 SERVICE TIME: Start Time: 1310 Nutrition Assessment: Recommended Malnutrition Diagnosis: Mild Protein-Calorie Malnutrition In the context of: Chronic Illness or Injury Based on: Insufficient Energy Intake Nutrition Diagnosis: Problem: Suboptimal protein/energy intake Related to: Inability to consume sufficient nutrients As evidenced by: Food/nutrition related history, Medical condition, Medications and treatments, Patient/family self-report, Weight loss, Anorexia Care Plan: Continue current diet (ASSIST with FEEDING due to UE weakness) Supplements: Boost VHC, Ensure Max (NO STRAWBERRY - van/stacie) Vitamins and Minerals: Zinc (please consider ZincSulfate for taste to see if may help) Medications: (once steroids would taper may need appetite stimulant -- follow po and appetite) Labs: Renal Function Panel, Magnesium Monitor and Evaluation: Meet greater than 75% of estimated needs, Monitor labs, I/Os, vital signs, weight, Monitor bowel function Discharge Recommendations: Diet, Oral Supplements, Outpatient Nutrition Therapy appointment Diet: regular Oral Supplements: hi vicente and protein as needed HPI: 54-year-old male with a history of glioblastoma and chronic expressive aphasia, currently undergoing treatment with lomustine, most recent dose administered on March 07. His course has been complicated by nausea, decreased appetite, and a weight loss 2/2 chemotherapy. A recent MRI on January 17, compared to November, demonstrated evolving post-therapy changes with progressive nodular enhancement and T2 signal abnormalities, raising concern for tumor progression. However, his outpatient oncologist on 03/02/2025 noted that the areas of concern were previously irradiated and may represent treatment-related inflammation rather than true progression. Given this, he was continued on the current treatment regimen with plans to reassess with follow-up MRI in [address] brain revealed significant interval vasogenic edema, likely secondary to tumor recurrence, with a midline shift of 5.4 mm. There was no obstructive hydrocephalus and no definite evidence of ischemia. CTA of the head and neck was negative. He was started on IV Decadron 10 mg and IV Keppra 2000 mg and transferred to [facility] for further management. PAST MEDICAL HISTORY Diagnosis Date At risk for seizures 03/19/2023 due to left temporal glioblastoma GBM (glioblastoma multiforme) (HCC) 03/19/2023 WHO Grade 4 GBM; IDH1 R132H negative (wildtype); ATRX retained (wildtype); BRAF V600E negative (wildtype); p53 strong up to 40%; Ki67 up to 25%, MGMT unmethylated Intake History: Nutrition Intake Prior to Admission: Less than 75% estimated energy needs greater than or equal to 1 month No appetite and taste changes. Provided material to help guide selections and hopes that steroids may help appetite. Dosing Weight: 96 kg (211 lb 10.3 oz) (average of bed wieght and outpt recent weight) Dosing Weight Type: Current weight Estimated kilocalorie needs: 1334-6515 Calorie Calculation Method: 20-25 kcals/kg Estimated protein needs (grams): 110-145 Grams protein determined by: 1.5 - 2.0 g/kg Diet Orders (From admission, onward) Start Ordered 03/24/25 1315 SUPPLEMENT/SNACK PROVIDED START NOW Question Answer Comment Supplement 1 (19 years and up) ENSURE MAX CHOCOLATE Supplement 1 Frequency BREAKFAST Supplement 2 BOOST [facility] Supplement 2 Frequency LUNCH Supplement 3 (19 years and up) ENSURE MAX CHOCOLATE Supplement 3 Frequency DINNER 03/24/25 1310 03/24/25 1100 DIET REGULAR START NOW 03/24/25 1047 Anthropometrics: Height: 177.8 cm (5' 10) Weight: 97.8 kg (215 lb 9.8 oz) Usual Weight: 99.8 kg (220 lb) Usual Weight Obtained From: Patient Body mass index is 30.94 kg/m?. Weight change percentage over time: 4% loss x 1 month Weight Change: Potentially clinically significant but does not meet criteria to support malnutrition diagnosis Physical Exam: Reason NFPE not performed: Potential for discomfort Potential micronutrient deficiency: Unable to determine at this time Edema/Ascites: Unable to assess GI Symptoms: Anorexia, Hypogeusia/dysgeusia, Early satiety Functional Status: Not related to malnutrition status Potential Signs of Inflammation: Chronic condition, Hypoalbuminemia, Hyperglycemia Lines, Drains, and Airways None MNT Billing: $ Initial Assessment: 1 unit Time Spent (mins): 10 SIGNATURE: Yeimy Blas RD PATIENT NAME: Angel Keating DATE: March 24, 2025 TIME: 5:39 PM PROGRESS Observed: 03/24/2025 3:15 PM Status: COMPLETED Source: [facility] HNO ID: [id number] Author: PATRICIA ENRIQUEZ MD Service: ? Author Type: Physician Type: Progress Notes Filed: 03/26/2025 15:17 Note Text: Summary: DOCUMENTATION OF COMMUNICATION WITH INPATIENT MEDICINE SERVICE DOCUMENTATION OF COMMUNICATION WITH INPATIENT MEDICINE SERVICE XR CHEST 2V FRONTAL/LAT Observed: 2024 2:16 PM Status: F Source: [facility] * * *Final Report* * * DATE OF EXAM: Mar 24 2025 2:16PM FIDELIA 5291 - XR CHEST 2V FRONTAL/LAT / PROCEDURE REASON: Chest Pain * * * * Physician Interpretation * * * * EXAMINATION: CHEST RADIOGRAPH (2 VIEW FRONTAL and LATERAL) CLINICAL HISTORY: Chest Pain MQ: XC2_6 EXAM DATE/TIME: 03/24/2025 2:16 PM COMPARISON: 11/01/2023 RESULT: Lines, tubes, and devices: Right-sided effusion port remains with tip in the right atrium. Lungs and pleura: Mild increase of partial atelectasis in the medial bases, right more than left. Superimposed infiltrates/infection or edema cannot be entirely excluded. Diaphragm remains elevated, right more than left. There is blunting of the left CP angle which may represent tiny effusion or pleural thickening. Cardiomediastinal silhouette: Heart is within normal in size. Thoracic aorta is minimally tortuous. Bones and soft tissues: Unremarkable. IMPRESSION: See result Call Worker Person: PSCB Transcribe Date/Time: Mar 25 2025 7:14P Dictated by : KERLINE CHUNG MD This examination was interpreted and the report reviewed and electronically signed by: KERLINE CHUNG MD on Mar 25 2025 7:17PM EST [id number] PLAN OF CARE Observed: 03/24/2025 12:11 PM Status: COMPLETED Source: [facility] HNO ID: [id number] Author: RIGOBERTO NDIAYE MD Service: Radiation Oncology Author Type: Resident Type: Plan of Care Filed: 03/24/2025 12:17 Note Text: Radiation Oncology Plan of Care Mr. Angel Keating is well known to the radiation oncology service. He is a 54 year old man with recurrent left temporal GBM. Initially diagnosed in 2022, s/p GTR and 60Gy/30fx plus TMZ completed 05/2023, recurred and was started on lomustine, with progression. Enrolled on CASE 3322, re-do craniotomy for tumor resection and Lomustine started on 07/28/2024. But then recurred again. He then had fractionated GKRS 30Gy/5fx completed 09/23/24. He presented with new right-sided weakness in upper and lower extremities. MRI with CBV on 02/28 showed increased FLAIR changes, but no increased perfusion, suggestive of no recurrence. He was started on Dex 4mg q6. CT head at outside hospital showed significantly worsened edema with 5mm midline shift which they are saying is probably due to recurrent tumor. At this juncture, he is not a candidate for further RT and will likely be best served by neuro-oncology. Please consult them. They will keep us informed if they need us. Further recs per neuro-oncology. Plan discussed with Dr. Homer Marcano. Rigoberto Ndiaye MD Radiation Oncology, PGY-4 SOCIAL WORK Observed: 03/24/2025 11:22 AM Status: COMPLETED Source: [facility] HNO ID: [id number] Author: KESHA REYES LSW Service: Hematology/Oncology Author Type: Pull Worker Type: Social Work Filed: 03/24/2025 11:48 Note Text: PSYCHOSOCIAL SCREENING ASSESSMENT Date of Service: March 24, 2025 Angel Keating is a 54 year old male being seen for initial social work assessment. Diagnosis: HPI (in italics) copied from medical record: Angel Keating is a 54-year-old male with a history of glioblastoma and chronic expressive aphasia, currently undergoing treatment with lomustine, most recent dose administered on March 07. His course has been complicated by nausea, decreased appetite, and a weight loss 2/2 chemotherapy. Primary Oncologist: Keisha Enriquez Radiation Oncologist: Celeste Joyce Goals of Care: Palliative care Today's visit includes: self/patient and Step daughter Family History of Cancer: Mother SUPPORT NETWORK: Marital status: Parent(s): Mother is living and Father is Child/Children: Yes. How many? 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 No Financial Distress: No : Not assessed FOOD INSECURITY Within the past year, have you worried about how you would buy or obtain food? No LIVING ARRANGEMENTS: Type: House- independent Resides with: Mother FUNCTIONAL STATUS: Cognitive limitations: none Physical limitations: none Language barrier: No Hearing Impaired: No Speech Impaired: No Visual Impairments: No Special considerations/accommodations needed: No HEALTH LITERACY: Do you have difficulty understanding medical instructions or other written materials you receive from you doctor or pharmacy? No Do have difficulty filling out medical forms by yourself? No The following interventions were put into place: Use of plain language active listening with patient and family Use of concrete and specific phrases and avoid medical jargon Sit with patient Patient given opportunity to ask questions MEDICATION ADHERENCE: Within the past 2 weeks, have you had difficulty remembering to take your medicine? No Within the past 2 weeks, did you ever miss taking your medications for reasons other than forgetting? No The following interventions were put into place: NA MENTAL HEALTH HISTORY: No History of combat/trauma: No Substance Use and Treatment History: denied History of Abuse: No Issues with: Sleep:No Eating:No Exercising: N/A Stress Management: No Advance Care Planning Goals of Care Date of Discussion: 03/24/2025 DIscussion Participants: Clinical: ELEVATOR WORKER Patient/Family/Decision Makers: Patient and Step daughter In this encounter: Advanced Directives already on file. Patient denies needing updates at this time. COPING STATUS: Coping Strengths: supportive relationships successful managing past crises hopefulness self advocate strong problem-solving skills ability to plan able to follow direction consistently over time able to communicate effectively Current affect/mood: appropriate and fatigued Adjustment to diagnosis: responding appropriately BARRIERS/CARE CHALLENGES: NA Are barriers/care challenges identified likely to have an impact on the patient's quality of life during treatment? NA INTERVENTIONS/REFERRALS TO BE PROVIDED: Provide emotional support to patient/family Continue follow up as needed Resources and Referrals: Internal: NA External: N/A CLINICAL IMPRESSION: manufacturing tech met with patient and daughter at bedside. Patient with some high level fatigue and assessment deferred to daughter. Daughter reports patient is independent with care needs and enjoys walking and sports. No concerns or needs expressed at this time. manufacturing tech will remain available during IP admission to [facility]. 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 Primary Contact: Extended Emergency Contact Information Primary Emergency Contact: Saba Honeycutt Mobile Relation: Daughter Secondary Emergency Contact: Santa Fry [facility] Mobile Relation: Sister Preferred language: [place] Mother: DONNA KEATING [place] Admission Status: Inpatient Insurance Provider: ISHAAN BUNN Discharge Planning requested by: Per Department Practice Potential Transition Plans Home Advance Directives Current Advance Directive: Health Care Power of Pharmacy Benefit Manager In Chart: Yes Up To Date and Valid: Yes Current Living Arrangements and Support Lives with: Family members Type of Residence: Private Residence (House) Does the patient have to climb stairs at home?: Yes Support: Family members, Friends/neighbors, Children How do you manage to accomplish the following: Independent: Ambulation, Bathe/Shower, Dress, Meals/Meal Prep, Going to the bathroom, Medication Management Needs Assistance: Transportation to appointments/community Current Services/Equipment Current Post-Acute Service(s): None Discharge Planning Patient Goal(s): Be able to go home, General wellness [place] of Choice Explained: [place] of [place] Given: No Reason Not Given: No placements necessary Are you interested in bedside delivery of your medications? No Discharge Planning Participant(s): Caregiver, Family [facility] Comments[facility] Caregiver Assessment: Caregiver is ready, willing and able to meet the patient's needs as recommended by the inter-professional team: No Caregiver needed Transport at Discharge: Transportation Arrangements: Car Needs Prior to Discharge: Needs Prior to Discharge: To Be Determined, OT/PT Evaluation Post-Acute Discharge Plan: 54 yr old male admitted with vasogenic edema. He lives at home with his mother and is IPTA. Denies any assistive devices for ambulation. Denies issues getting food or medications. Plan for consults to PT/OT, neurosurgery, and radiation oncology. Final needs TBD. CM will continue to follow for discharge needs. Please see Treatment Team for Care Management Weekend/Holiday coverage. SIGNATURE: Charis Brian RN, BSN PATIENT NAME: Angel Keating DATE: March 24, 2025 TIME: 10:10 AM COMP METAB 1999 PNL SERPL Collected: 6:25 AM Status: F Source: [facility] Order Comment: Specimen Type : BLOOD SPECIMEN Ordering Facility: [facility] Address: [address] [place] [address] TYPE CODE TESTS RESULT OUT OF RANGE REFERENCE UNITS LAB 2885-2(LOINC) Prot SerPl-mCnc 6.7 6.3-8.0 g/dL LAB 1751-7(LOINC) Albumin SerPl-mCnc 3.6 Low 3.9-4.9 g/dL LAB 79449-5(LOINC) Calcium SerPl-mCnc 9.3 8.5-10.2 mg/dL LAB 1975-2(LOINC) Bilirub SerPl-mCnc 0.5 0.2-1.3 mg/dL LAB 6768-6(LOINC) ALP SerPl-cCnc 99 38-113 U/L LAB 1920-8(LOINC) AST SerPl-cCnc 9 Low 14-40 U/L LAB 1742-6(LOINC) ALT SerPl-cCnc 7 Low 10-54 U/L LAB 2345-7(LOINC) Glucose SerPl-mCnc 131 High 74-99 mg/dL Result Comment: The [place] Diabetes [employer] (ADA) provides guidance for cutoff values for fasting glucose and random glucose. The ADA defines fasting as no caloric intake for at least 8 hours. Fasting plasma glucose results between 100 to 125 mg/dL indicate increased risk for diabetes (prediabetes). Fasting plasma glucose results greater than or equal to 126 mg/dL meet the criteria for diagnosis of diabetes. In the absence of unequivocal hyperglycemia, results should be confirmed by repeat testing. In a patient with classic symptoms of hyperglycemia or hyperglycemic crisis, random plasma glucose results greater than or equal to 200 mg/dL meet the criteria for diagnosis of diabetes. Reference: Standards of Medical Care in Diabetes 2016, [place] Diabetes Association. Diabetes Care. 2016.39(Suppl 1). LAB 3094-0(LOINC) BUN SerPl-mCnc 16 9-24 mg/dL LAB 2160-0(LOINC) Creat SerPl-mCnc 1.01 0.73-1.22 mg/dL LAB 2951-2(LOINC) Sodium SerPl-sCnc 138 136-144 mmol/L LAB 2823-3(LOINC) Potassium SerPl-sCnc 4.2 3.7-5.1 mmol/L LAB 2075-0(LOINC) Chloride SerPl-sCnc 107 98-107 mmol/L LAB 2027-9(LOINC) CO2 SerPl-sCnc 19 Low 22-30 mmol/L LAB 19448-7(LOINC) Anion Gap SerPl-sCnc 12 8-15 mmol/L LAB 96097-1(LOINC) eGFRcr SerPlBld CKD-EPI 2020 87 >=60 mL/min/1. 73m??? Result Comment: Estimated Gl omerular Filtration Rate (eGFR) is calculated using the 2020 CKD-EPI creatinine equation. This equation utilizes serum creatinine, sex, and age as parameters. The creatinine assay has traceable calibration to isotope dilution-mass spectrometry. Refer to KDIGO guidelines for clinical interpretation. In patients with unstable renal function, e.g. those with acute kidney injury, the eGFR may not accurately reflect actual GFR. Performed By: #### 78128-7, 2777-1, 13711-3 #### [facility] CLIA [id number] [address] [place] [address] [place] MAGNESIUM SERPL-MCNC Collected: 03/24/2025 6:25 AM S tatus: F Source: [facility] Order Comment: Specimen Type : BLOOD SPECIMEN Ordering Facility: [facility] Address: [address] [place], [place] [id number] TYPE CODE TESTS RESULT OUT OF RANGE REFERENCE UNITS LAB 80179-3(LOINC) Magnesium SerPl-mCnc 2.0 1.7-2.3 mg/dL Performed By: #### 77830-8, 2777-1, 53364-3 #### [facility] CLIA [id number] [address] [place], [place] [id number] [place] PHOSPHATE SERPL-MCNC Collected: 03/24/2025 6:25 AM S tatus: F Source: [facility] Order Comment: Specimen Type : BLOOD SPECIMEN Ordering Facility: [facility] Address: [address] [place] [address] TYPE CODE TESTS RESULT OUT OF RANGE REFERENCE UNITS LAB 2777-1(LOINC) Phosphate SerPl-mCnc 2.8 2.7-4.8 mg/dL Performed By: #### 17466-3, 2777-1, 38775-8 #### [facility] CLIA [id number] [address] [place], [place] [id number] [place] PT PNL PPP Collected: 03/24/2025 6:25 AM Status: F Source: [facility] Order Comment: Specimen Type : BLOOD SPECIMEN Ordering Facility: [facility] Address: [address] [place] [address] TYPE CODE TESTS RESULT OUT OF RANGE REFERENCE UNITS LAB 5902-2(LOINC) Prothrombin time 11.5 9.7-13.0 sec LAB 6301-6(LOINC) INR PPP 1.1 0.9-1.3 Result Comment: Vitamin K An tagonist (VKA) Therapeutic Range: INR 2 to 3 (Target INR of 2.5) Note: For patients treated with VKA drugs, such as warfarin, the [place] [employer] 2012 Guideline recommends a therapeutic INR range of 2 to 3 (target INR of 2.5). This recommendation includes high-risk patients with antiphospholipid syndrome with previous arterial or venous thromboembolism, current-generation mechanical or bioprosthetic aortic heart valve replacement. Note: Patients with mechanical aortic valve replacement and additional risk factors for thromboembolic events (atrial fibrillation, previous thromboembolism, LV dysfunction, hypercoagulable conditions) or an older generation mechanical AVR (i.e., ball in-Cage) or any mechanical MVR should have a INR therapeutic range of 2.5 to 3.5 (target INR of 3). Terry DIEHL, et al. Chest 2012, 141:7S-47S Tabby BRANDON et al. [facility] 2017, 70: 252-289 Performed By: #### 67815-1, 66463-5 #### [facility] CLIA [id number] [address] [place] [address] [place] APTT PPP Collected: 5 6:25 AM Status: F Source: [facility] Order Comment: Specimen Type : BLOOD SPECIMEN Ordering Facility: [facility] Address: [address] [place] [address] TYPE CODE TESTS RESULT OUT OF RANGE REFERENCE UNITS LAB 54932-7([facility]) aPTT PPP 29.1 23.0-32.4 sec Performed By: #### 93748-4, 76554-3 #### [facility] CLIA [id number] [address] [place] [address] [place] CBC PNL BLD AUTO Collected: 5 6:25 AM Status: F Source: [facility] Order Comment: Specimen Type : BLOOD SPECIMEN Ordering Facility: [facility] Address: [address] [place] [address] TYPE CODE TESTS RESULT OUT OF RANGE REFERENCE UNITS LAB 6690-2(LOINC) WBC # Bld Auto 4.89 3.70-11.00 k/uL LAB 789-8(LOINC) RBC # Bld Auto 3.51 Low 4.20-6.00 m/uL LAB 718-7(LOINC) Hgb Bld-mCnc 12.1 Low 13.0-17.0 g/dL LAB 4544-3(LOINC) Hct VFr Bld Auto 33.8 Low 39.0-51.0 % LAB 787-2(LOINC) MCV RBC Auto 96.3 80.0-100.0 fL LAB 785-6(LOINC) MCH RBC Qn Auto 34.5 High 26.0-34.0 pg LAB 786-4([facility]) MCHC RBC Auto-mCnc 35.8 30.5-36.0 g/dL LAB 87647-0(INC) RDW RBC-Rto 14.3 11.5-15.0 % LAB 777-3(INC) Platelet # Bld Auto 138 Low 150-400 k/uL Result Comment: No clot dete cted.Results checked and verified. LAB 35096-3([facility]) PMV Bld Auto 10.3 9.0-12.7 fL LAB 771-6([facility]) nRBC # Bld Auto <0.01 <0.01 k/uL Performed By: #### 56117-0, 26831-0 #### [facility] CLIA [id number] [address] [place] [address] [place] [facility] CBC W AUTO DIFF BLD Collected: 03/24/2025 6:[address] atus: F Source: [facility] Order Comment: Specimen Type : BLOOD SPECIMEN Ordering Facility: [facility] Address: [address] [place] [address] TYPE CODE TESTS RESULT OUT OF RANGE REFERENCE UNITS LAB 6690-2([facility]) WBC # Bld Auto 5.14 3.70-11.00 k/uL LAB 789-8(INC) RBC # Bld Auto 3.54 Low 4.20-6.00 m/ uL LAB 718-7(LOINC) Hgb Bld-mCnc 12.3 Low 13.0-17.0 g/dL LAB 4544-3(INC) Hct VFr Bld Auto 34.0 Low 39.0-51.0 % LAB 787-2([facility]) MCV RBC Auto 96.0 80.0-100.0 fL LAB 785-6(LOINC) MCH RBC Qn Auto 34.7 High 26.0-34.0 p g LAB 786-4(LOINC) MCHC RBC Auto-mCnc 36.2 High 30.5-36.0 g/dL LAB 68397-2(LOINC ) RDW RBC-Rto 14.5 11.5-15.0 % LAB 777-3([facility]) Platelet # Bld Auto 107 Low 150-400 k/uL LAB 66437-5([facility] ) PMV Bld Auto 12.7 9.0-12.7 fL LAB 770-8([facility]) Neutrophils/leuk NFr Bld Auto 89.7 % LAB 751-8([facility]) Neutrophils # Bld Auto 4.61 1.45-7.50 k/uL LAB 736-9([facility]) Lymphocytes/leuk NFr Bld Auto 7.2 % LAB 731-0([facility]) Lymphocytes # Bld Auto 0.37 Low 1.00-4.00 k/uL LAB 5905-5([facility]) Monocytes/leuk NFr Bld Auto 1.9 % LAB 742-7([facility]) Monocytes # Bld Auto 0.10 <0.87 k/uL LAB 713-8([facility]) Eosinophil/leuk NFr Bld Auto 0.0 % LAB 711-2([facility]) Eosinophil # Bld Auto <0.03 <0.46 k/uL LAB 706-2([facility]) Basophils/leuk NFr Bld Auto 0.2 % LAB 704-7([facility]) Basophils # Bld Auto <0.03 <0.11 k/uL LAB 78378-4([facility] ) Imm Granulocytes/christina k NFr Bld Auto 1.0 % LAB 95934-1([facility] ) Imm Granulocytes # Bld Auto 0.05 <0.10 k/uL LAB 95676-1([facility] ) nRBC/100 WBC Bld-Rto 0.0 /100 WBC LAB 771-6([facility]) nRBC # Bld Auto <0.01 <0.01 k/u L LAB 10466-4([facility] ) Platelet # Bld Est Decreased LAB 02576-6([facility] ) Agran Platelets Bld Ql Smear Occasional LAB RBCMORBEAKER1 RED CELL MORPH Reviewed: se e results of individual morphologies LAB 35133-7([facility] ) Polychromasia Bld Ql Smear Slight LAB 774-0(INC) Ovalocytes Bld Ql Smear Few LAB 7791-7([facility]) Dacryocytes Bld Ql Smear Few LAB 18898-2([facility] ) Differential method Bld Auto Performed By: #### 11805-2, 74973-4 #### [facility] CLIA [id number] [address] [place] [address] [place] [address] [place] HISTORY PHYSICAL Observed: 03/24/2025 5:29 AM Status: COMPLETED Source: [facility] HNO ID: [id number] Author: SRINIVASAN ZHAO DO Service: Oncology Author Type: Physician Type: H&P Filed: 03/24/2025 15:23 Note Text: SOLID TUMOR SERVICE HISTORY AND PHYSICAL EXAM Overnight: [facility] Resident Team: [place] [id number] from 5P - 7A ADMISSION DATE: 03/24/2025 PRIMARY ONCOLOGIST: Patricia Enriquez MD Subjective CHIEF COMPLAINT: New right-sided weakness in both his arm and leg HPI: Angel Keating is a 54-year-old male with a history of glioblastoma and chronic expressive aphasia, currently undergoing treatment with lomustine, most recent dose administered on March 07. His course has been complicated by nausea, decreased appetite, and a weight loss 2/2 chemotherapy. A recent MRI on January 17, compared to November, demonstrated evolving post-therapy changes with progressive nodular enhancement and T2 signal abnormalities, raising concern for tumor progression. However, his outpatient oncologist on 03/02/2025 noted that the areas of concern were previously irradiated and may represent treatment-related inflammation rather than true progression. Given this, he was continued on the current treatment regimen with plans to reassess with follow-up MRI in 6 weeks Yesterday, he experienced new right-sided weakness in both his arm and leg, and he was unable to walk. He presented to the ED at [facility], where he was stable, afebrile on room air, awake, alert, and in no acute distress. Neurologically, he had right arm and leg drift, was unable to perform kvxqyu-rv-gtnh or ohmf-jw-wxfr testing, had mild to moderate expressive aphasia, consistent with his baseline. His NIH stroke scale score was 5. Labs showed pancytopenia (WBC 3.4, Hgb 12.1, PLT 141), creatinine of 1.16, and normal electrolytes. CT brain revealed significant interval vasogenic edema, likely secondary to tumor recurrence, with a midline shift of 5.4 mm. There was no obstructive hydrocephalus and no definite evidence of ischemia. CTA of the head and neck was negative. He was started on IV Decadron 10 mg and IV Keppra 2000 mg and transferred to [facility] for further management. Upon arrival: - History was limited by expressive aphasia - He was HDS, bradycardic (HR 44), afebrile and on RA - Labs were not drawn yet Sepsis Present on Admission?: No FUNCTIONAL STATUS: Partially dependent PAST MEDICAL HISTORY Diagnosis Date At risk for seizures 03/19/2023 due to left temporal glioblastoma GBM (glioblastoma multiforme) (HCC) 03/19/2023 WHO Grade 4 GBM; IDH1 R132H negative (wildtype); ATRX retained (wildtype); BRAF V600E negative (wildtype); p53 strong up to 40%; Ki67 up to 25%, MGMT unmethylated PAST SURGICAL HISTORY Procedure Laterality Date APPENDECTOMY 1976 removed as part of internal bleeding due to trauma COLONOSCOPY FLX DX W/COLLJ SPEC WHEN PFRMD Colonoscopy ESOPHAGOGASTRODUODENOSCOPY TRANSORAL DIAGNOSTIC EGD EXCIS SUPRATENT BRAIN TUMOR 03/19/2023 Left-sided craniotomy for temporal mass resection by Dr. Evans; path = GBM ORTHOPEDICS SURGERY HX 1996 knee surgery SHX CRANIOTOMY Left 03/19/2023 FAMILY HISTORY Problem Relation Age of Onset Diabetes Father Coronary Artery Disease Father Stroke Father Breast Cancer Mother None Sister Anesthesia Problems No Family History SOCIAL HISTORY[1] Prescriptions Prior to Admission[2] ALLERGIES No Known Allergies COMPLETE REVIEW OF SYSTEMS: Unable to obtain ROS due to expressive aphasia. Objective Ht 5' 10 (1.78m) Wt 215 lb 9.8 oz (97.8kg) BMI 30.94 kg/(m2). Eastern Cooperative Oncology Group (ECOG): 2: Ambulatory and capable of all selfcare but unable to carry out any work activities. Up and about more than 50% of waking hours. PHYSICAL EXAM: GENERAL: No acute distress; alert and oriented x 3 HEENT: Sclera anicteric. No mucositis. No thrush LUNGS: Clear to auscultation; no wheezing, rhonchi or rales HEART: Regular rhythm; normal rate ABDOMEN: Bowel sounds present; soft, non-tender and not distended EXTREMITIES: No edema. Muscular strength equal in all extremities SKIN: No rash or ecchymosis VENOUS ACCESS: No erythema, tenderness or drainage NEURO: Right and right leg drift +. No weakness with left arm/leg. Lines, Drains, and Airways None DATA: Diagnostic tests reviewed for today's visit: Most recent labs and imaging Assessment/Plan Active Hospital Problems Diagnosis Date Noted POA Vasogenic edema (HCC) 03/24/2025 Yes Resolved Hospital Problems No resolved problems to display. ACUTE PROBLEMS #New right-sided weakness in both his arm and leg #Glioblastoma CT brain revealed significant interval vasogenic edema, likely secondary to tumor recurrence, with a midline shift of 5.4 mm. Plan: - Obtain OSH images - IV decadron 4mg q6 - Continue home lacosamide 150mg BID - Radiation oncology consult - Neurosurgery consult # Malnutrition # Nausea vomiting Weight loss of 5 kg over the past 6 weeks, current weight 95 kg. Likely secondary to chemotherapy-induced nausea and decreased appetite. Plan: - Antiemetics as needed - Nutrition consult - PT/OT CHRONIC PROBLEMS #Psoriasis Chronic scaly, flaky rashes reported on scalp, chest, arms, and legs. Plan: Outpatient follow-up with PCP/dermatology. Exogenous Class 1 Obesity Medication and Non-Pharmacologic VTE Prophylaxis/Anticoagulants 03/24/25 0530 vte [place] 03/24/25 0530 activity - [place]ize [place] VTE Prophylaxis: Held until plan is clarified Plan of care discussed with: Provider, RN, Patient SIGNATURE: Cuauhtemoc Bobo MD PATIENT NAME: Angel Keating DATE: March 24, 2025 TIME: 5:29 AM Attending Note I evaluated the patient and personally participated in the mckeon components. I agree with the resident's findings and plan as documented and have discussed the case and management of the patient's care with the resident. Plan of care discussed with: Patient. Signature: Srinivasan Zhao DO Date: March 24, 2025 Time: 3:23 PM [1] Social History Tobacco Use Smoking status: Former Current packs/day: 1.00 Average packs/day: 1 pack/day for 4.0 years (4.0 ttl pk-yrs) Types: Cigarettes, Cigars Smokeless tobacco: Never Vaping Use Vaping status: Never Used Substance Use Topics Alcohol use: Not Currently Comment: three beers a month - per pt [id number] Drug use: Never [2] lomustine (GLEOSTINE) 100 mg capsule, Take one 8mg Zofran on an empty stomach in the evening. Wait ONE hour. Take TWO 100mg capsule(s) Lomustine by mouth for a total dose of 200mg. Take one 8 mg Zofran twenty-four hours later. Take on Day 1 of each 42 day cycle., Disp: 2 capsule, Rfl: 2 valACYclovir (VALTREX) 500 mg tablet, TAKE 1 TABLET BY MOUTH EVERY DAY, Disp: 30 tablet, Rfl: 2 traZODone (DESYREL) 50 mg tablet, TAKE 1 TABLET BY MOUTH EVERYDAY AT BEDTIME, Disp: 30 tablet, Rfl: 2 dexAMETHasone (DECADRON) 2 mg tablet, Take 1 tablet by mouth daily with breakfast. (Patient not taking: Reported on 01/19/2025), Disp: 30 tablet, Rfl: [address] (PROTONIX) 40 mg tablet, Take 1 tablet by mouth once daily., Disp: 30 tablet, Rfl: 2 lacosamide (VIMPAT) 150 mg tab, Take 1 tablet by mouth two times a day., Disp: 180 tablet, Rfl: 4 ondansetron (ZOFRAN) 8 mg tablet, Take one tablet by mouth on an empty stomach in the evening one hour prior to chemo. Then take one tablet 24 hours after chemo. May repeat dose every 8-12 hours if needed to prevent nausea, Disp: 30 tablet, Rfl: 2 midazolam (NAYZILAM) 5 mg/spray (0.1 mL) nasal spray, Use 1 [place] in the nose as needed for up to 10 days. May repeat dose in alternate nostril after 10 minutes based on response and tolerability., Disp: 4 Each, Rfl: 2 sennosides (SENNA ORAL), Take by mouth. (Patient not taking: Reported on 08/12/2024), Disp: , Rfl: acetaminophen (TYLENOL) 325 mg tablet, 2 tablets by ORAL/FEEDING TUBE route every 4 hours as needed for pain., Disp: , Rfl: TRINO Observed: 03/10/2025 12:00 AM Status: COMPLETED Source: [facility] Telephone ([facility]) ANGEL KEATING ([id number]) 1970 M Date Time Provider Department 03/10/25 PATRICIA ENRIQUEZ [facility] During your visit today, we recorded the following information about you: Tona Cobos RN 03/17/2025 8:03 AM Signed Late entry for 03/10/25 Labs drawn 03/06/25 and results reviewed by Dr.Torres morales to proceed with cycle #6 Medication: Lomustine 90mg/m2 x BSA 2.21 = 200mg. Take 200 mg Take medication x 1 dose every 6 weeks. Cycle Duration: 03/09-04/20/25 Repeat labs due at the end of this cycle, approx 04/18 with MRI brain PLT: 104 ANC: 2.54 Tona Cobos RN, BSN Banking Supervisor [facility] Allergies As of Date: 03/10/2025 (No Known Allergies) Date Reviewed: 03/02/2025 Reviewed by: Karla Pedroza MA - Fully Assessed Reason for Visit: Lomustine 90mg/m2 C#6 03/09-04/20/25 [Other] Prescriptions as of 03/17/2025 - lomustine (GLEOSTINE) 100 mg capsule Take one 8mg Zofran on an empty stomach in the evening. Wait ONE hour. Take TWO 100mg capsule(s) Lomustine by mouth for a total dose of 200mg. Take one 8 mg Zofran twenty-four hours later. Take on Day 1 of each 42 day cycle. - valACYclovir (VALTREX) 500 mg tablet TAKE 1 TABLET BY MOUTH EVERY DAY - traZODone (DESYREL) 50 mg tablet TAKE 1 TABLET BY MOUTH EVERYDAY AT BEDTIME - dexAMETHasone (DECADRON) 2 mg tablet Take 1 tablet by mouth daily with breakfast. - pantoprazole DR (PROTONIX) 40 mg tablet Take 1 tablet by mouth once daily. - lacosamide (VIMPAT) 150 mg tab Take 1 tablet by mouth two times a day. - ondansetron (ZOFRAN) 8 mg tablet Take one tablet by mouth on an empty stomach in the evening one hour prior to chemo. Then take one tablet 24 hours after chemo. May repeat dose every 8-12 hours if needed to prevent nausea - midazolam (NAYZILAM) 5 mg/spray (0.1 mL) nasal spray Use 1 [place] in the nose as needed for up to 10 days. May repeat dose in alternate nostril after 10 minutes based on response and tolerability. - sennosides (SENNA ORAL) Take by mouth. - acetaminophen (TYLENOL) 325 mg tablet 2 tablets by ORAL/FEEDING TUBE route every 4 hours as needed for pain. Problem List As Of Date 03/10/2025 Noted Resolved Chest pain [R07.9] 04/25/2010 05/26/2024 Brain mass [G93.89] 03/17/2023 11/17/2023 Obesity, Class I, BMI 30-34.9 [E66.811] 03/17/2023 Brain compression (HCC) [G93.5] 03/20/2023 S/P brain surgery [Z98.890] 03/20/2023 11/17/2023 At risk for seizures [Z91.89] 03/20/2023 Cerebral edema (HCC) [G93.6] 03/20/2023 GBM (glioblastoma multiforme) (HCC) [C71.9] 04/07/2023 Syncope, unspecified syncope type [R55] 11/01/2023 11/03/2023 Examination of participant in clinical trial [Z*11/05/2023 11/17/2023 Forehead pain [R51.9] 11/05/2023 PONV (postoperative nausea and vomiting) [R11.2*05/26/2024 Acute post-operative pain [G89.18] 05/29/2024 Thrombocytopenia [D69.6] 10/13/2024 Encounter Status:Closed by TONA COBOS on 03/17/25 TRINO Observed: 03/09/2025 12:00 AM Status: COMPLETED Source: [facility] ANGEL KEATING ([id number]) 1970 M Date Time Provider Department 03/09/25 [facility] During your visit today, we recorded the following information about you: Tona Cobos RN 03/09/2025 3:07 PM Signed LM on designated phone. Need to know if he started his Lomustine. Chemo was to be delivered yesterday Asked to return call or send My chart message Tona Cobos RN, BSN Banking Supervisor [facility] Allergies As of Date: 03/09/2025 (No Known Allergies) Date Reviewed: 03/02/2025 Reviewed by: Karla Pedroza MA - Fully Assessed Reason for Visit: Confirm chemo start date [Other] Prescriptions as of 03/09/2025 - lomustine (GLEOSTINE) 100 mg capsule Take one 8mg Zofran on an empty stomach in the evening. Wait ONE hour. Take TWO 100mg capsule(s) Lomustine by mouth for a total dose of 200mg. Take one 8 mg Zofran twenty-four hours later. Take on Day 1 of each 42 day cycle. - valACYclovir (VALTREX) 500 mg tablet TAKE 1 TABLET BY MOUTH EVERY DAY - traZODone (DESYREL) 50 mg tablet TAKE 1 TABLET BY MOUTH EVERYDAY AT BEDTIME - dexAMETHasone (DECADRON) 2 mg tablet Take 1 tablet by mouth daily with breakfast. - pantoprazole DR (PROTONIX) 40 mg tablet Take 1 tablet by mouth once daily. - lacosamide (VIMPAT) 150 mg tab Take 1 tablet by mouth two times a day. - ondansetron (ZOFRAN) 8 mg tablet Take one tablet by mouth on an empty stomach in the evening one hour prior to chemo. Then take one tablet 24 hours after chemo. May repeat dose every 8-12 hours if needed to prevent nausea - midazolam (NAYZILAM) 5 mg/spray (0.1 mL) nasal spray Use 1 [place] in the nose as needed for up to 10 days. May repeat dose in alternate nostril after 10 minutes based on response and tolerability. - sennosides (SENNA ORAL) Take by mouth. - acetaminophen (TYLENOL) 325 mg tablet 2 tablets by ORAL/FEEDING TUBE route every 4 hours as needed for pain. Problem List As Of Date 03/09/2025 Noted Resolved Chest pain [R07.9] 04/25/2010 05/26/2024 Brain mass [G93.89] 03/17/2023 11/17/2023 Obesity, Class I, BMI 30-34.9 [E66.811] 03/17/2023 Brain compression (HCC) [G93.5] 03/20/2023 S/P brain surgery [Z98.890] 03/20/2023 11/17/2023 At risk for seizures [Z91.89] 03/20/2023 Cerebral edema (HCC) [G93.6] 03/20/2023 GBM (glioblastoma multiforme) (HCC) [C71.9] 04/07/2023 Syncope, unspecified syncope type [R55] 11/01/2023 11/03/2023 Examination of participant in clinical trial [Z*11/05/2023 11/17/2023 Forehead pain [R51.9] 11/05/2023 PONV (postoperative nausea and vomiting) [R11.2*05/26/2024 Acute post-operative pain [G89.18] 05/29/2024 Thrombocytopenia [D69.6] 10/13/2024 Encounter Status:Closed by TONA COBOS on 03/09/25 COMP METAB 2000 PNL SERPL Collected: 11:28 AM Status: F Source: [facility] Order Comment: Specimen Type : BLOOD SPECIMEN Ordering Facility: [facility] Address: [address] [place] [address] TYPE CODE TESTS RESULT OUT OF RANGE REFERENCE UNITS LAB 2885-2(LOINC) Prot SerPl-mCnc 7.3 6.3-8.0 g/dL LAB 1751-7(LOINC) Albumin SerPl-mCnc 4.0 3.9-4.9 g/dL LAB 88010-9(LOINC) Calcium SerPl-mCnc 9.5 8.5-10.2 mg/dL LAB 1975-2(LOINC) Bilirub SerPl-mCnc 0.7 0.2-1.3 mg/dL LAB 6768-6(LOINC) ALP SerPl-cCnc 94 38-113 U/L LAB 1920-8(LOINC) AST SerPl-cCnc 10 Low 14-40 U/L LAB 1742-6(LOINC) ALT SerPl-cCnc 6 Low 10-54 U/L LAB 2345-7(LOINC) Glucose SerPl-mCnc 103 High 74-99 mg/dL Result Comment: The [place] [employer] (ADA) provides guidance for cutoff values for fasting glucose and random glucose. The ADA defines fasting as no caloric intake for at least 8 hours. Fasting plasma glucose results between 100 to 125 mg/dL indicate increased risk for diabetes (prediabetes). Fasting plasma glucose results greater than or equal to 126 mg/dL meet the criteria for diagnosis of diabetes. In the absence of unequivocal hyperglycemia, results should be confirmed by repeat testing. In a patient with classic symptoms of hyperglycemia or hyperglycemic crisis, random plasma glucose results greater than or equal to 200 mg/dL meet the criteria for diagnosis of diabetes. Reference: Standards of Medical Care in Diabetes 2016, [place] [employer]. Diabetes Care. 2016.39(Suppl 1). LAB 3094-0(LOINC) BUN SerPl-mCnc 13 9-24 mg/dL LAB 2160-0(LOINC) Creat SerPl-mCnc 1.24 High 0.73-1.22 mg/dL LAB 2951-2(LOINC) Sodium SerPl-sCnc 137 136-144 mmol/L LAB 2823-3(LOINC) Potassium SerPl-sCnc 4.1 3.7-5.1 mmol/L LAB 2075-0(LOINC) Chloride SerPl-sCnc 103 98-107 mmol/L LAB 202-9(LOINC) CO2 SerPl-sCnc 20 Low 22-30 mmol/L LAB 34421-0(LOINC) Anion Gap SerPl-sCnc 14 8-15 mmol/L LAB 07599-7(LOINC) eGFRcr SerPlBld CKD-EPI 2020 68 >=60 mL/min/1. 73m??? Result Comment: Estimated Gl omerular Filtration Rate (eGFR) is calculated using the 2020 CKD-EPI creatinine equation. This equation utilizes serum creatinine, sex, and age as parameters. The creatinine assay has traceable calibration to isotope dilution-mass spectrometry. Refer to KDIGO guidelines for clinical interpretation. In patients with unstable renal function, e.g. those with acute kidney injury, the eGFR may not accurately reflect actual GFR. Performed By: #### [id number] # ### [facility] CLIA [id number] [address] [place] [address] [place] CBC W AUTO DIFF BLD Collected: 03/06/2025 11:28 AM S tatus: F Source: [facility] Order Comment: Specimen Type : BLOOD SPECIMEN Ordering Facility: [facility] Address: [address] [place] [address] TYPE CODE TESTS RESULT OUT OF RANGE REFERENCE UNITS LAB 6690-2(LOINC) WBC # Bld Auto 3.63 Low 3.70-11.00 k/uL LAB 789-8(LOINC) RBC # Bld Auto 3.72 Low 4.20-6.00 m/ uL LAB 718-7(LOINC) Hgb Bld-mCnc 12.8 Low 13.0-17.0 g/dL LAB 4544-3(LOINC) Hct VFr Bld Auto 35.7 Low 39.0-51.0 % LAB 787-2(LOINC) MCV RBC Auto 96.0 80.0-100.0 fL LAB 785-6(LOINC) MCH RBC Qn Auto 34.4 High 26.0-34.0 p g LAB 786-4(LOINC) MCHC RBC Auto-mCnc 35.9 30.5-36.0 g/dL LAB 29543-5(LOINC) RDW RBC-Rto 14.1 11.5-15.0 % LAB 777-3(LOINC) Platelet # Bld Auto 104 Low 150-400 k/uL LAB 73694-7(LOINC) PMV Bld Auto 8.7 Low 9.0-12.7 fL LAB 770-8(LOINC) Neutrophils/leuk NFr Bld Auto 69.9 % LAB 751-8(LOINC) Neutrophils # Bld Auto 2.54 1.45-7.50 k/uL LAB 736-9(LOINC) Lymphocytes/leuk NFr Bld Auto 17.6 % LAB 731-0(LOINC) Lymphocytes # Bld Auto 0.64 Low 1.00-4.00 k/uL LAB 5905-5(LOINC) Monocytes/leuk NFr Bld Auto 10.2 % LAB 742-7(LOINC) Monocytes # Bld Auto 0.37 <0.87 k/uL LAB 713-8(LOINC) Eosinophil/leuk NFr Bld Auto 1.7 % LAB 711-2(LOINC) Eosinophil # Bld Auto 0.06 <0.46 k/uL LAB 706-2(LOINC) Basophils/leuk NFr Bld Auto 0.3 % LAB 704-7(LOINC) Basophils # Bld Auto <0.03 <0.11 k/uL LAB 68734-8(LOINC) Imm Granulocytes/christina k NFr Bld Auto 0.3 % LAB 93254-4(LOINC) Imm Granulocytes # Bld Auto <0.03 <0.10 k/uL LAB 79005-7(LOINC) nRBC/100 WBC Bld-Rto 0.0 /100 WBC LAB 771-6(LOINC) nRBC # Bld Auto <0.01 <0.01 k/u L LAB 44610-4(LOINC) Differential method Bld Auto Performed By: #### [id number] # ### [facility] CLIA [id number] [address] [place] [address] [place] CNPN Observed: 03/03/2025 12:00 AM Status: COMPLETED Source: [facility] Telephone (NSCAMN) ANGEL KEATING ([id number]) 1970 M Date Time Provider Department 03/03/25 [facility] During your visit today, we recorded the following information about you: Esme Cook RN 03/03/2025 10:54 AM Signed Scheduling Request - Established Patient Time Frame: 7 weeks Orders: MRI brain Provider: Juno Visit type: In person after WAN Diagnosis: GBM Allergies As of Date: 03/03/2025 (No Known Allergies) Date Reviewed: 03/02/2025 Reviewed by: Karla Pedroza MA - Fully Assessed Reason for Visit: JUANCARLOS 7 weeks [Other] Prescriptions as of 03/13/2025 - lomustine (GLEOSTINE) 100 mg capsule Take one 8mg Zofran on an empty stomach in the evening. Wait ONE hour. Take TWO 100mg capsule(s) Lomustine by mouth for a total dose of 200mg. Take one 8 mg Zofran twenty-four hours later. Take on Day 1 of each 42 day cycle. - valACYclovir (VALTREX) 500 mg tablet TAKE 1 TABLET BY MOUTH EVERY DAY - traZODone (DESYREL) 50 mg tablet TAKE 1 TABLET BY MOUTH EVERYDAY AT BEDTIME - dexAMETHasone (DECADRON) 2 mg tablet Take 1 tablet by mouth daily with breakfast. - pantoprazole DR (PROTONIX) 40 mg tablet Take 1 tablet by mouth once daily. - lacosamide (VIMPAT) 150 mg tab Take 1 tablet by mouth two times a day. - ondansetron (ZOFRAN) 8 mg tablet Take one tablet by mouth on an empty stomach in the evening one hour prior to chemo. Then take one tablet 24 hours after chemo. May repeat dose every 8-12 hours if needed to prevent nausea - midazolam (NAYZILAM) 5 mg/spray (0.1 mL) nasal spray Use 1 [place] in the nose as needed for up to 10 days. May repeat dose in alternate nostril after 10 minutes based on response and tolerability. - sennosides (SENNA ORAL) Take by mouth. - acetaminophen (TYLENOL) 325 mg tablet 2 tablets by ORAL/FEEDING TUBE route every 4 hours as needed for pain. Problem List As Of Date 03/03/2025 Noted Resolved Chest pain [R07.9] 04/25/2010 05/26/2024 Brain mass [G93.89] 03/17/2023 11/17/2023 Obesity, Class I, BMI 30-34.9 [E66.811] 03/17/2023 Brain compression (HCC) [G93.5] 03/20/2023 S/P brain surgery [Z98.890] 03/20/2023 11/17/2023 At risk for seizures [Z91.89] 03/20/2023 Cerebral edema (HCC) [G93.6] 03/20/2023 GBM (glioblastoma multiforme) (HCC) [C71.9] 04/07/2023 Syncope, unspecified syncope type [R55] 11/01/2023 11/03/2023 Examination of participant in clinical trial [Z*11/05/2023 11/17/2023 Forehead pain [R51.9] 11/05/2023 PONV (postoperative nausea and vomiting) [R11.2*05/26/2024 Acute post-operative pain [G89.18] 05/29/2024 Thrombocytopenia [D69.6] 10/13/2024 Encounter Status:Closed by ESME COOK on 03/13/25 PROGRESS Observed: 03/02/2025 9:02 AM Status: COMPLETED Source: [facility] HNO ID: [id number] Author: PATRICIA ENRIQUEZ MD Service: ? Author Type: Physician Type: Progress Notes Filed: 03/03/2025 00:05 Note Text: [facility] Follow up Clinic Visit March 02, 2025 HPI Angel Keating is a 54-year-old male with a history of glioblastoma, presenting for follow-up. He is accompanied by his mother, who provides additional history. Angel is currently undergoing treatment with lomustine and has completed five cycles. He reports experiencing nausea and a decreased appetite, which he attributes to the chemotherapy. He has lost approximately 5 kg over the past six weeks, with a current weight of 95 kg, down from 100 kg. He is not taking any steroids, including dexamethasone. He also reports feeling awfully tired since returning [place] visited eight states and saw his granddaughter in [facility]. He notes that his energy levels decreased about assisted through the trip but states, I got everything done. He describes his ambulation as slow but states that he does not trip or fall. He does not endorse constipation or epigastric pain. He expresses a desire to continue treatment and manage his symptoms effectively, stating, Keep me going. He is looking forward to attending his middle child's wedding on April 29 and is proud of his 21-year-old son, who has decided to attend [facility]. PHYSICAL EXAMINATION: BP 133/89 Pulse 87 Temp 36.7 ?C (98.1 ?F) (Oral) Resp 18 Wt 95 kg (209 lb 7 oz) SpO2 100% BMI 30.43 kg/m? - Neurological: - CNII: Visual land intact. - CNIII/CNIV/CNVI: Extraocular movements intact. - CNV: Sensation intact. - CNVII: Facial movements intact. - CNIX/CNX: Palate elevation intact. - CNXI: Shoulder shrug strength intact. - Motor: No atrophy or asymmetry noted. - Strength: - Arms: - Deltoids: Left: 5/5, Right: 5/5 - Biceps: Left: 5/5, Right: 5/5 - Triceps: Left: 5/5, Right: 5/5 - Lower Extremities: - Hip Flexors: Left: 5/5, Right: 5/5 - Hip Extensors: Left: 5/5, Right: 5/5 - Knee Flexion: Left: 5/5, Right: 5/5 - Knee Extension: Left: 5/5, Right: 5/5 - Ankle Dorsiflexion: Left: 5/5, Right: 5/5 - Ankle Plantarflexion: Left: 5/5, Right: 5/5 - Reflexes: - Arms: - Triceps: Left: 2+, Right: 2+ - Biceps: Left: 2+, Right: 2+ - Brachioradialis: Left: 2+, Right: 2+ - Lower Extremities: - Patella: Left: 2+, Right: 2+ - Achilles: Left: 2+, Right: 2+ - Babinski: Left: Downgoing, Right: Downgoing - Sensation: Intact to light touch and pinprick. - Coordination: Iebdtu-ua-bqgp and faif-eu-knai testing intact. - Gait: Normal. Imaging: MRI Report MRI BRAIN WO/W IVCON Exam End: 02/28/2025 1:40 PM (Final result) Narrative: * * *Final Report* * * DATE OF EXAM: Feb 28 2025 1:35PM [facility] 0295 - MRI BRAIN WO/W IVCON / PROCEDURE REASON: GBM (glioblastoma multiforme) (HCC) * * * * Physician Interpretation * * * * EXAMINATION: MRI BRAIN WO/W IVCON CLINICAL HISTORY: Glioblastoma. Status post resection and chemoradiation treatment with subsequent recurrence requiring a second resection with chemotherapy and gamma knife radiosurgery. Follow-up/surveillance. TECHNIQUE: Routine brain MRI protocol without and with contrast including diffusion images. Perfusion: MR perfusion study was performed of the entire brain following bolus intravenous administration of gadolinium utilizing dynamic susceptibility-weighted contrast-enhanced acquisition. MQ: MRBWOW_2 Contrast: 20 mL Dotarem IV COMPARISON: MRI brain 01/17/2025. RESULT: Acute Change: There is no evidence of restricted diffusion to suggest an acute infarct. Hemorrhage: No large intracranial hemorrhage. Again seen is a small focus of susceptibility artifact in the right caudate head with associated faint enhancement, likely benign vascular lesion Mass Lesion/ Mass Effect: There are unchanged postoperative findings related to a prior left frontotemporal resection. There is unchanged CSF fluid within the left temporal resection cavity which communicates with a extra-axial/extracranial subgaleal collection when compared to the prior MRI, compatible with a pseudomeningocele. There has been interval increase in the bilobed nodular enhancement along the medial aspect of the resection cavity/left insular region and extends into the mesial temporal lobe and left basal ganglia currently measuring 2.5 x 2.2 cm, previously 0.9 x 1.3 cm. There has also been interval increase in faint linear enhancement along the posterior aspect of the resection cavity compared to prior MRI. There has also been interval increase confluent T2/FLAIR hyperintense along the margins of the resection cavity and not extending into the dorsal aspect of the resection cavity in the temporal lobe, left insula , left mesial temporal lobe, posterior limb of internal capsule and left henry radiata. There is no elevated cerebral blood volume on the perfusion sequence to suggest neovascularity. There is associated mild mass effect with partial effacement of the left temporal horn and body of the left lateral ventricle, unchanged. No hydrocephalus, midline shift or herniation. Stable dural enhancing nodule along the left falx. Chronic Change: Scattered punctate foci of increased T2 and FLAIR signal are noted in the supratentorial white matter which is a nonspecific finding, but likely represents minimal chronic microvascular ischemia. Parenchyma: There is mild generalized parenchymal volume loss. Ventricles: Ventriculomegaly corresponds to the degree of parenchymal volume loss. Skull Base: Hypothalamic and pituitary region are grossly normal. Craniocervical junction is normal. No significant marrow replacement process. Vasculature: Major intracranial arterial structures, and dural venous sinuses show typical flow void, suggesting patency by spin echo criteria. Other: The visualized paranasal sinuses and mastoid air cells are clear. The orbits and extracranial soft tissues are unremarkable. Impression: IMPRESSION: Interval in size of nodular enhancement along the medial aspect of the resection cavity and significant interval increase in confluent T2/FLAIR hyperintensity. No elevated cerebral blood volume on the perfusion sequence to suggest neovascularity. Recommend short-term interval follow-up to exclude progressive disease. Call Worker Person: PSCB Transcribe Date/Time: Feb 28 2025 1:50P Dictated by : MATTHEW PATEL MD This examination was interpreted and the report reviewed and electronically signed by: MICA MONTANO MD on Feb 28 2025 4:56PM EST Assessment AND Plan 1. Glioblastoma (HCC) (C71.9) - Recent MRI on January 17 compared to November shows evolving post-therapy changes with progressive nodular enhancement and T2 signal, suspicious for progressive malignancy per radiologist Dr. Ashok De Leon. - Areas of concern have been previously radiated, likely causing inflammation rather than tumor progression. Hence I think is reasonable to continue with current treatment, and assess in 6 weeks with an MRI. - I will discuss findings with patient's radiation oncologist, Dr. Joyce, and Dr. Evans his neurosurgeon to get their input, but the above is what I think is a good plan. - Prognosis discussed with family; average survival for condition is 12-18 months, but patient is currently stable and responding to treatment, in the context that his initial diagnosis dates back to March 2023. 1. Glioblastoma (HCC) (C71.9) - Recent MRI 02/28/25 shows increased enhancement in areas previously treated with SRS, consistent with either radiation effect or tumor progression. - Discuss imaging findings with Dr. Joyce from rad Onc,a dn Dr. Evans, from [facility] for further evaluation. INTERVENTIONS: -Laser interstitial thermal therapy (HODA) - Continue current treatment regimen pending further assessment. - Consideration of Avastin if tumor progression is confirmed. -MRI brain w and w/o and perfusion in 6 weeks time. -Return clinic visit in person, 1-2 days after MR. 2. Encounter for antineoplastic chemotherapy (Z51.11) - Completed 5 cycles of lomustine; plan to proceed with 6th cycle. - Blood work scheduled for March 07 to assess counts before next cycle. - Lomustine 90mg/m2. Tentative start, the week of March 08, if no other interventions needed by Rad Onc/NSGY and CBC adequate. - Lomustine to be shipped but not started until blood counts are confirmed adequate. - Patient and pharmacy will be notified when to commence the next cycle. 3. Malnutrition, unspecified type (HCC) (E46) 4. Nausea and vomiting, unspecified vomiting type (R11.2) - Weight loss of 5 kg over the past 6 weeks, current weight 95 kg. - Likely secondary to chemotherapy-induced nausea and decreased appetite. - Initiated thiamine 100 mg daily. - Increased use of antiemetics to manage nausea. - Encouraged nutritional intake as tolerated. 5. Seizures (HCC) (R56.9) 6. Seizure disorder (HCC) (G40.909) - Seizures well-controlled on lacosamide 150 mg BID; no recent seizure activity reported. - Continue current anticonvulsant therapy. 7. Psoriasis (L40.9) - Chronic scaly, flaky rashes reported on scalp, chest, arms, and legs. - Advised patient to document and upload photos of rashes to [facility] for further evaluation. - To see PCP/dermatology. I am seeing the patient in collaboration with Tona Cobos RN [facility] Banking Supervisor In the end the patient and family verbalized understanding of the above, they had questions which I believe I answered to their satisfaction and agreed with these recommendations and had no further questions or concerns for the moment, but I encourage them to call the [facility] with any questions or concerns. I spent a total of 40 minutes on the date of the service which included preparing to see the patient, at least 50% of odkl-cf-zyyx patient care, completing clinical documentation, obtaining and/or reviewing separately obtained history, performing a medically appropriate examination, counseling and educating the patient/family/caregiver, ordering medications, tests, or procedures, communicating with other HCPs (not separately reported), independently interpreting results (not separately reported), communicating results to the patient/family/caregiver and care coordination (not separately reported). High MDM. Patricia Enriquez MD [facility] CC Patient Care Team: -Jose Evans MD, Neurosurgery, [facility], [facility], [facility] Cyndee Joyce MD, PhD, Radiation Oncology, [facility], [facility], [facility]. Jaclyn Guillory LSW as Pull Worker (Hematology/Oncology) Soraida Simmons, VAZQUEZ (Hospice AND Palliative Medicine) Willy Lion MD (Hospice AND Palliative Medicine) Rupa Khoury APRN.EDSON (Hospice AND Palliative Medicine) Daniel Juárez PSYD, Psychology, [facility] CNOV Observed: 03/02/2025 9:00 AM Status: COMPLETED Source: [facility] Office Visit (NSCAMN) ANGEL KEATING ([id number]) 1970 M Date Time Provider Department 03/02/25 9:00 AM PATRICIA ENRIQUEZ NSCAMN During your visit today, we recorded the following information about you: Temperature Pulse Respiration Blood pressure 98.1 degrees 87/minute 18/minute 133/89 Weight 95 kg Karla Pedroza MA 03/03/2025 12:05 AM Signed Additional intake questions: Has the patient had fever, nausea, vomiting, diarrhea, constipation, fatigue for > 1 week? No Does the patient have a decreased appetite? Yes Does patient want to see a Outside Solar Sales Consultant? No (yes to any of above refer patient to schedulers for dietitian appointment) ) Does patient have any new or increased numbness or tingling of extremities? No Is patient interested in fertility information? No Does patient need any prescription refills? No Does patient have an advanced directive in place? No, Patient referred to Resource Center Electronically Signed By: SALEEM Zepeda Sara, RN 03/03/2025 12:05 AM Signed Glioblastoma L temporal mass resection 03/19/2023- Not hypermethylated L temporal mass re-do resection 05/27/24 [place] 04/20-05/29/[address] [facility] until progression in February [address] Evans 09/23/24 Lomustine 90mg/m2 C#1 02/25-04/08/24 Lomustine 90mg/m2 C #2 09/05-10/17/24 Lomustine 90mg/m2 C#3 10/21-12/02/24 Lomustine 90mg/m2 C#4 12/11/24-01/22/25 Lomustine 90mg/m2 C#5 01/22/25-03/05/25 N-Plate x 1 injection 10/18/23-PLT 76K Platelets 02/28 Patricia Enriquez MD 03/03/2025 12:05 AM Signed [facility] Follow up Clinic Visit March 02, 2025 HPI Angel Keating is a 54-year-old male with a history of glioblastoma, presenting for follow-up. He is accompanied by his mother, who provides additional history. Angle is currently undergoing treatment with lomustine and has completed five cycles. He reports experiencing nausea and a decreased appetite, which he attributes to the chemotherapy. He has lost approximately 5 kg over the past six weeks, with a current weight of 95 kg, down from 100 kg. He is not taking any steroids, including dexamethasone. He also reports feeling awfully tired since returning [place] visited [place] states and saw his granddaughter in [facility]. He notes that his energy levels decreased about assisted through the trip but states, I got everything done. He describes his ambulation as slow but states that he does not trip or fall. He does not endorse constipation or epigastric pain. He expresses a desire to continue treatment and manage his symptoms effectively, stating, Keep me going. He is looking forward to attending his middle child's wedding on April 29 and is proud of his 21-year-old son, who has decided to attend [employer] [facility]. PHYSICAL EXAMINATION: BP 133/89 Pulse 87 Temp 36.7 ?C (98.1 ?F) (Oral) Resp 18 Wt 95 kg (209 lb 7 oz) SpO2 100% BMI 30.43 kg/m? - Neurological: - CNII: Visual land intact. - CNIII/CNIV/CNVI: Extraocular movements intact. - CNV: Sensation intact. - CNVII: Facial movements intact. - CNIX/CNX: Palate elevation intact. - CNXI: Shoulder shrug strength intact. - Motor: No atrophy or asymmetry noted. - Strength: - Arms: - Deltoids: Left: 5/5, Right: 5/5 - Biceps: Left: 5/5, Right: 5/5 - Triceps: Left: 5/5, Right: 5/5 - Lower Extremities: - Hip Flexors: Left: 5/5, Right: 5/5 - Hip Extensors: Left: 5/5, Right: 5/5 - Knee Flexion: Left: 5/5, Right: 5/5 - Knee Extension: Left: 5/5, Right: 5/5 - Ankle Dorsiflexion: Left: 5/5, Right: 5/5 - Ankle Plantarflexion: Left: 5/5, Right: 5/5 - Reflexes: - Arms: - Triceps: Left: 2+, Right: 2+ - Biceps: Left: 2+, Right: 2+ - Brachioradialis: Left: 2+, Right: 2+ - Lower Extremities: - Patella: Left: 2+, Right: 2+ - Achilles: Left: 2+, Right: 2+ - Babinski: Left: Downgoing, Right: Downgoing - Sensation: Intact to light touch and pinprick. - Coordination: Cxlzhj-hc-rwrm and uffo-xp-wrti testing intact. - Gait: Normal. Imaging: MRI Report MRI BRAIN WO/W IVCON Exam End: 02/28/2025 1:40 PM (Final result) Narrative: * * *Final Report* * * DATE OF EXAM: Feb 28 2025 1:35PM [facility] 0295 - MRI BRAIN WO/W IVCON / PROCEDURE REASON: GBM (glioblastoma multiforme) (HCC) * * * * Physician Interpretation * * * * EXAMINATION: MRI BRAIN WO/W IVCON CLINICAL HISTORY: Glioblastoma. Status post resection and chemoradiation treatment with subsequent recurrence requiring a second resection with chemotherapy and gamma knife radiosurgery. Follow-up/surveillance. TECHNIQUE: Routine brain MRI protocol without and with contrast including diffusion images. Perfusion: MR perfusion study was performed of the entire brain following bolus intravenous administration of gadolinium utilizing dynamic susceptibility-weighted contrast-enhanced acquisition. MQ: MRBWOW_2 Contrast: 20 mL Dotarem IV COMPARISON: MRI brain 01/17/2025. RESULT: Acute Change: There is no evidence of restricted diffusion to suggest an acute infarct. Hemorrhage: No large intracranial hemorrhage. Again seen is a small focus of susceptibility artifact in the right caudate head with associated faint enhancement, likely benign vascular lesion Mass Lesion/ Mass Effect: There are unchanged postoperative findings related to a prior left frontotemporal resection. There is unchanged CSF fluid within the left temporal resection cavity which communicates with a extra-axial/extracranial subgaleal collection when compared to the prior MRI, compatible with a pseudomeningocele. There has been interval increase in the bilobed nodular enhancement along the medial aspect of the resection cavity/left insular region and extends into the mesial temporal lobe and left basal ganglia currently measuring 2.5 x 2.2 cm, previously 0.9 x 1.3 cm. There has also been interval increase in faint linear enhancement along the posterior aspect of the resection cavity compared to prior MRI. There has also been interval increase confluent T2/FLAIR hyperintense along the margins of the resection cavity and not extending into the dorsal aspect of the resection cavity in the temporal lobe, left insula , left mesial temporal lobe, posterior limb of internal capsule and left henry radiata. There is no elevated cerebral blood volume on the perfusion sequence to suggest neovascularity. There is associated mild mass effect with partial effacement of the left temporal horn and body of the left lateral ventricle, unchanged. No hydrocephalus, midline shift or herniation. Stable dural enhancing nodule along the left falx. Chronic Change: Scattered punctate foci of increased T2 and FLAIR signal are noted in the supratentorial white matter which is a nonspecific finding, but likely represents minimal chronic microvascular ischemia. Parenchyma: There is mild generalized parenchymal volume loss. Ventricles: Ventriculomegaly corresponds to the degree of parenchymal volume loss. Skull Base: Hypothalamic and pituitary region are grossly normal. Craniocervical junction is normal. No significant marrow replacement process. Vasculature: Major intracranial arterial structures, and dural venous sinuses show typical flow void, suggesting patency by spin echo criteria. Other: The visualized paranasal sinuses and mastoid air cells are clear. The orbits and extracranial soft tissues are unremarkable. Impression: IMPRESSION: Interval in size of nodular enhancement along the medial aspect of the resection cavity and significant interval increase in confluent T2/FLAIR hyperintensity. No elevated cerebral blood volume on the perfusion sequence to suggest neovascularity. Recommend short-term interval follow-up to exclude progressive disease. Call Worker Person: EMILI Transcribe Date/Time: Feb 28 2025 1:50P Dictated by : MATTHEW PATEL MD This examination was interpreted and the report reviewed and electronically signed by: MICA MONTANO MD on Feb 28 2025 4:56PM EST Assessment AND Plan 1. Glioblastoma (HCC) (C71.9) - Recent MRI on January 17 compared to November shows evolving post-therapy changes with progressive nodular enhancement and T2 signal, suspicious for progressive malignancy per radiologist Dr. Ashok De Leon. - Areas of concern have been previously radiated, likely causing inflammation rather than tumor progression. Hence I think is reasonable to continue with current treatment, and assess in 6 weeks with an MRI. - I will discuss findings with patient's radiation oncologist, Dr. Joyce, and Dr. Evans his neurosurgeon to get their input, but the above is what I think is a good plan. - Prognosis discussed with family; average survival for condition is 12-18 months, but patient is currently stable and responding to treatment, in the context that his initial diagnosis dates back to March 2023. 1. Glioblastoma (HCC) (C71.9) - Recent MRI 02/28/25 shows increased enhancement in areas previously treated with SRS, consistent with either radiation effect or tumor progression. - Discuss imaging findings with Dr. Joyce from rad Onc,a dn Dr. Evans, from [facility] for further evaluation. INTERVENTIONS: -Laser interstitial thermal therapy (HODA) - Continue current treatment regimen pending further assessment. - Consideration of Avastin if tumor progression is confirmed. -MRI brain w and w/o and perfusion in 6 weeks time. -Return clinic visit in person, 1-2 days after MR. 2. Encounter for antineoplastic chemotherapy (Z51.11) - Completed 5 cycles of lomustine; plan to proceed with 6th cycle. - Blood work scheduled for Thursday, March 07 to assess counts before next cycle. - Lomustine 90mg/m2. Tentative start, the week of March 08, if no other interventions needed by Rad Onc/NSGY and CBC adequate. - Lomustine to be shipped but not started until blood counts are confirmed adequate. - Patient and pharmacy will be notified when to commence the next cycle. 3. Malnutrition, unspecified type (HCC) (E46) 4. Nausea and vomiting, unspecified vomiting type (R11.2) - Weight loss of 5 kg over the past 6 weeks, current weight 95 kg. - Likely secondary to chemotherapy-induced nausea and decreased appetite. - Initiated thiamine 100 mg daily. - Increased use of antiemetics to manage nausea. - Encouraged nutritional intake as tolerated. 5. Seizures (HCC) (R56.9) 6. Seizure disorder (HCC) (G40.909) - Seizures well-controlled on lacosamide 150 mg BID; no recent seizure activity reported. - Continue current anticonvulsant therapy. 7. Psoriasis (L40.9) - Chronic scaly, flaky rashes reported on scalp, chest, arms, and legs. - Advised patient to document and upload photos of rashes to [facility] for further evaluation. - To see PCP/dermatology. I am seeing the patient in collaboration with Tona Cobos RN [facility] Banking Supervisor In the end the patient and family verbalized understanding of the above, they had questions which I believe I answered to their satisfaction and agreed with these recommendations and had no further questions or concerns for the moment, but I encourage them to call the [facility] with any questions or concerns. I spent a total of 40 minutes on the date of the service which included preparing to see the patient, at least 50% of [id number] patient care, completing clinical documentation, obtaining and/or reviewing separately obtained history, performing a medically appropriate examination, counseling and educating the patient/family/caregiver, ordering medications, tests, or procedures, communicating with other HCPs (not separately reported), independently interpreting results (not separately reported), communicating results to the patient/family/caregiver and care coordination (not separately reported). High MDM. Patricia Enriquez MD [facility] Patient Care Team: -Jose Evans MD, Neurosurgery, [facility], [facility], [facility] Cyndee Joyec MD, PhD, Radiation Oncology, [facility], [facility], [facility]. Jaclyn Guillory LSW as Pull Worker (Hematology/Oncology) Soraida Simmons, RN (Hospice AND Palliative Medicine) Willy Lion MD (Hospice AND Palliative Medicine) Rupa Khoury APRN.CNP (Hospice AND Palliative Medicine) Daniel Juárez PSYD, Psychology, [facility] Patricia Enriquez MD 03/03/2025 12:05 AM Addendum - Begin taking 100 mg thymine as prescribed to help control your nausea; continue using your anti-nausea medications as needed. - Do your best to eat regular meals and maintain calories, even if you feel full, to help prevent further weight loss. - Have blood drawn on Thursday, the ; we will review your counts and call you with results. - Your next dose of lomotilene (Cycle 6) has been shipped to the pharmacy--please wait to start it until we confirm your blood counts are adequate. - We will review your MRI images with Dr. Joyce and will continue the current treatment plan unless further changes are needed. 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 Wait ONE hour. Take TWO 100mg capsule(s) Lomustine by mouth for a total dose of 200mg. Take one 8 mg Zofran twenty-four hours later. Take on Day 1 of each 42 day cycle. - valACYclovir (VALTREX) 500 mg tablet TAKE 1 TABLET BY MOUTH EVERY DAY - traZODone (DESYREL) 50 mg tablet TAKE 1 TABLET BY MOUTH EVERYDAY AT BEDTIME - dexAMETHasone (DECADRON) 2 mg tablet Take 1 tablet by mouth daily with breakfast. - pantoprazole DR (PROTONIX) 40 mg tablet Take 1 tablet by mouth once daily. - lacosamide (VIMPAT) 150 mg tab Take 1 tablet by mouth two times a day. - ondansetron (ZOFRAN) 8 mg tablet Take one tablet by mouth on an empty stomach in the evening one hour prior to chemo. Then take one tablet 24 hours after chemo. May repeat dose every 8-12 hours if needed to prevent nausea - midazolam (NAYZILAM) 5 mg/spray (0.1 mL) nasal spray Use 1 [place] in the nose as needed for up to 10 days. May repeat dose in alternate nostril after 10 minutes based on response and tolerability. - sennosides (SENNA ORAL) Take by mouth. - acetaminophen (TYLENOL) 325 mg tablet 2 tablets by ORAL/FEEDING TUBE route every 4 hours as needed for pain. Problem List As Of Date 03/02/2025 Noted Resolved Chest pain [R07.9] 04/25/2010 05/26/2024 Brain mass [G93.89] 03/17/2023 11/17/2023 Obesity, Class I, BMI 30-34.9 [E66.811] 03/17/2023 Brain compression (HCC) [G93.5] 03/20/2023 S/P brain surgery [Z98.890] 03/20/2023 11/17/2023 At risk for seizures [Z91.89] 03/20/2023 Cerebral edema (HCC) [G93.6] 03/20/2023 GBM (glioblastoma multiforme) (HCC) [C71.9] 04/07/2023 Syncope, unspecified syncope type [R55] 11/01/2023 11/03/2023 Examination of participant in clinical trial [Z*11/05/2023 11/17/2023 Forehead pain [R51.9] 11/05/2023 PONV (postoperative nausea and vomiting) [R11.2*05/26/2024 Acute post-operative pain [G89.18] 05/29/2024 Thrombocytopenia [D69.6] 10/13/2024 Other instructions from your clinician: - Begin taking 100 mg thymine as prescribed to help control your nausea; continue using your anti-nausea medications as needed. - Do your best to eat regular meals and maintain calories, even if you feel full, to help prevent further weight loss. - Have blood drawn on Thursday, the ; we will review your counts and call you with results. - Your next dose of lomotilene (Cycle 6) has been shipped to the pharmacy--please wait to start it until we confirm your blood counts are adequate. - We will review your MRI images with Dr. Joyce and will continue the current treatment plan unless further changes are needed. Encounter Status:Closed by PATRICIA ENRIQUEZ on 03/03/25 PROGRESS Observed: 03/02/2025 9:00 AM Status: COMPLETED Source: [facility] HNO ID: [id number] Author: ESME COOK RN Service: ? Author Type: Registered Nurse Type: Progress Notes Filed: 03/03/2025 00:05 Note Text: Glioblastoma L temporal mass resection 03/19/2023- Not hypermethylated L temporal mass re-do resection 05/27/24 [place] 04/20-05/29/[address] [facility] until progression in February [address] Evans 09/23/24 Lomustine 90mg/m2 C#1 02/25-04/08/24 Lomustine 90mg/m2 C #2 09/05-10/17/24 Lomustine 90mg/m2 C#3 10/21-12/02/24 Lomustine 90mg/m2 C#4 12/11/24-01/22/25 Lomustine 90mg/m2 C#5 01/22/25-03/05/25 N-Plate x 1 injection 10/18/23-PLT 76K Platelets 02/28 PROGRESS Observed: 03/02/2025 8:44 AM Status: COMPLETED Source: [facility] HNO ID: [id number] Author: KARLA PEDROZA MA Service: ? Author Type: Camp Housekeeper Type: Progress Notes Filed: 03/03/2025 00:05 Note Text: Additional intake questions: Has the patient had fever, nausea, vomiting, diarrhea, constipation, fatigue for > 1 week? No Does the patient have a decreased appetite? Yes Does patient want to see a Outside Solar Sales Consultant? No (yes to any of above refer patient to schedulers for dietitian appointment) ) Does patient have any new or increased numbness or tingling of extremities? No Is patient interested in fertility information? No Does patient need any prescription refills? No Does patient have an advanced directive in place? No, Patient referred to Resource Center Electronically Signed By: Karla Pedroza MA MRI BRAIN WO/W IVCON Observed: 1:35 PM Status: F Source: [facility] * * *Final Report* * * DATE OF EXAM: Feb 28 2025 1:35PM DOMINIK 0295 - MRI BRAIN WO/W IVCON / PROCEDURE REASON: GBM (glioblastoma multiforme) (HCC) * * * * Physician Interpretation * * * * EXAMINATION: MRI BRAIN WO/W IVCON CLINICAL HISTORY: Glioblastoma. Status post resection and chemoradiation treatment with subsequent recurrence requiring a second resection with chemotherapy and gamma knife radiosurgery. Follow-up/surveillance. TECHNIQUE: Routine brain MRI protocol without and with contrast including diffusion images. Perfusion: MR perfusion study was performed of the entire brain following bolus intravenous administration of gadolinium utilizing dynamic susceptibility-weighted contrast-enhanced acquisition. MQ: [id number] Contrast: 20 mL Dotarem IV COMPARISON: MRI brain 01/17/2025. RESULT: Acute Change: There is no evidence of restricted diffusion to suggest an acute infarct. Hemorrhage: No large intracranial hemorrhage. Again seen is a small focus of susceptibility artifact in the right caudate head with associated faint enhancement, likely benign vascular lesion Mass Lesion/ Mass Effect: There are unchanged postoperative findings related to a prior left frontotemporal resection. There is unchanged CSF fluid within the left temporal resection cavity which communicates with a extra-axial/extracranial subgaleal collection when compared to the prior MRI, compatible with a pseudomeningocele. There has been interval increase in the bilobed nodular enhancement along the medial aspect of the resection cavity/left insular region and extends into the mesial temporal lobe and left basal ganglia currently measuring 2.5 x 2.2 cm, previously 0.9 x 1.3 cm. There has also been interval increase in faint linear enhancement along the posterior aspect of the resection cavity compared to prior MRI. There has also been interval increase confluent T2/FLAIR hyperintense along the margins of the resection cavity and not extending into the dorsal aspect of the resection cavity in the temporal lobe, left insula , left mesial temporal lobe, posterior limb of internal capsule and left henry radiata. There is no elevated cerebral blood volume on the perfusion sequence to suggest neovascularity. There is associated mild mass effect with partial effacement of the left temporal horn and body of the left lateral ventricle, unchanged. No hydrocephalus, midline shift or herniation. Stable dural enhancing nodule along the left falx. Chronic Change: Scattered punctate foci of increased T2 and FLAIR signal are noted in the supratentorial white matter which is a nonspecific finding, but likely represents minimal chronic microvascular ischemia. Parenchyma: There is mild generalized parenchymal volume loss. Ventricles: Ventriculomegaly corresponds to the degree of parenchymal volume loss. Skull Base: Hypothalamic and pituitary region are grossly normal. Craniocervical junction is normal. No significant marrow replacement process. Vasculature: Major intracranial arterial structures, and dural venous sinuses show typical flow void, suggesting patency by spin echo criteria. Other: The visualized paranasal sinuses and mastoid air cells are clear. The orbits and extracranial soft tissues are unremarkable. IMPRESSION: Interval in size of nodular enhancement along the medial aspect of the resection cavity and significant interval increase in confluent T2/FLAIR hyperintensity. No elevated cerebral blood volume on the perfusion sequence to suggest neovascularity. Recommend short-term interval follow-up to exclude progressive disease. Call Worker Person: EMILI Transcribe Date/Time: Feb 28 2025 1:50P Dictated by : MATTHEW PATEL MD This examination was interpreted and the report reviewed and electronically signed by: MICA MONTANO MD on Feb 28 2025 4:56PM EST [id number] PROGRESS Observed: 02/28/2025 1:00 PM Status: COMPLETED Source: [facility] HNO ID: [id number] Author: CORKY BAIRES RT(R) Service: ? Author Type: Technologist Type: Progress Notes Filed: 02/28/2025 12:32 Note Text: Radiology Service Progress Note PATIENT NAME: Angel Keating DATE OF SERVICE: February 28, 2025 TIME: 12:31 PM PATIENT IDENTITY VERIFICATION COMPLETED USING TWO (2) IDENTIFIERS: Name and Date of confirmed by patient verbally. FALL SCREENING: Has the patient had 2 falls in the last year or 1 fall with injury or currently using an Ambulatory Assistive Device (Walker, Cane, Wheelchair, Crutches, etc.)? No PATIENT GENDER DATA: Assigned male at PATIENT RELEVANT IMPLANT DATA REVIEWED: Yes PATIENT PRESENTS WITH AN IMPLANTABLE OR ATTACHED PLATE FINISHER: No RADIOLOGY DEPARTMENT: MR; Exam(s) Completed: Head: Routine Brain with Perfusion. Aromatherapy Administered: No PERIPHERAL IV DATA: Site assessment: Clean,Dry and Intact, Site disposition Discontinued SIGNED BY: Corky Baires, RT(R) February 28, 2025 12:31 PM COMP METAB 2000 PNL SERPL Collected: 11:38 AM Status: F Source: [facility] Order Comment: Specimen Type : BLOOD SPECIMEN Ordering Facility: [facility] Address: [address] [place] [address] TYPE CODE TESTS RESULT OUT OF RANGE REFERENCE UNITS LAB 2885-2(LOINC) Prot SerPl-mCnc 7.2 6.3-8.0 g/dL LAB 1751-7(LOINC) Albumin SerPl-mCnc 4.1 3.9-4.9 g/dL LAB 23061-9(LOINC) Calcium SerPl-mCnc 9.3 8.5-10.2 mg/dL LAB 1975-2(LOINC) Bilirub SerPl-mCnc 0.8 0.2-1.3 mg/dL LAB 6768-6(LOINC) ALP SerPl-cCnc 96 38-113 U/L LAB 1920-8(LOINC) AST SerPl-cCnc 10 Low 14-40 U/L LAB 1742-6(LOINC) ALT SerPl-cCnc 8 Low 10-54 U/L LAB 2345-7(LOINC) Glucose SerPl-mCnc 108 High 74-99 mg/dL Result Comment: The [place] Diabetes Association (ADA) provides guidance for cutoff values for fasting glucose and random glucose. The ADA defines fasting as no caloric intake for at least 8 hours. Fasting plasma glucose results between 100 to 125 mg/dL indicate increased risk for diabetes (prediabetes). Fasting plasma glucose results greater than or equal to 126 mg/dL meet the criteria for diagnosis of diabetes. In the absence of unequivocal hyperglycemia, results should be confirmed by repeat testing. In a patient with classic symptoms of hyperglycemia or hyperglycemic crisis, random plasma glucose results greater than or equal to 200 mg/dL meet the criteria for diagnosis of diabetes. Reference: Standards of Medical Care in Diabetes 2016, [place] Diabetes Association. Diabetes Care. 2016.39(Suppl 1). LAB 3094-0(LOINC) BUN SerPl-mCnc 18 9-24 mg/dL LAB 2160-0(LOINC) Creat SerPl-mCnc 1.18 0.73-1.22 mg/dL LAB 2951-2(LOINC) Sodium SerPl-sCnc 136 136-144 mmol/L LAB 2823-3(LOINC) Potassium SerPl-sCnc 4.2 3.7-5.1 mmol/L LAB 2075-0(LOINC) Chloride SerPl-sCnc 103 98-107 mmol/L LAB 2028-9(LOINC) CO2 SerPl-sCnc 17 Low 22-30 mmol/L LAB 44816-0(LOINC) Anion Gap SerPl-sCnc 16 High 8-15 mmol/L LAB 01655-8(LOINC) eGFRcr SerPlBld CKD-EPI 2020 72 >=60 mL/min/1. 73m??? Result Comment: Estimated Gl omerular Filtration Rate (eGFR) is calculated using the 2020 CKD-EPI creatinine equation. This equation utilizes serum creatinine, sex, and age as parameters. The creatinine assay has traceable calibration to isotope dilution-mass spectrometry. Refer to KDIGO guidelines for clinical interpretation. In patients with unstable renal function, e.g. those with acute kidney injury, the eGFR may not accurately reflect actual GFR. Performed By: #### [id number] # ### [facility] CLIA [id number] [address] [place] [address] [place] CBC W AUTO DIFF BLD Collected: 02/28/2025 11:38 AM S tatus: F Source: [facility] Order Comment: Specimen Type : BLOOD SPECIMEN Ordering Facility: [facility] Address: [address] [place] [address] TYPE CODE TESTS RESULT OUT OF RANGE REFERENCE UNITS LAB 6690-2(LOINC) WBC # Bld Auto 4.19 3.70-11.00 k/uL LAB 789-8([facility]) RBC # Bld Auto 3.92 Low 4.20-6.00 m/ uL LAB 718-7([facility]) Hgb Bld-mCnc 13.6 13.0-17.0 g/dL LAB 4544-3([facility]) Hct VFr Bld Auto 37.1 Low 39.0-51.0 % LAB 787-2([facility]) MCV RBC Auto 94.6 80.0-100.0 fL LAB 785-6([facility]) MCH RBC Qn Auto 34.7 High 26.0-34.0 p g LAB 786-4([facility]) MCHC RBC Auto-mCnc 36.7 High 30.5-36.0 g/dL LAB 30196-8([facility]) RDW RBC-Rto 13.9 11.5-15.0 % LAB 777-3([facility]) Platelet # Bld Auto 80 Low 150-400 k/uL Result Comment: No clot dete cted. LAB 42566-9([facility]) PMV Bld Auto 9.0 9.0-12.7 fL LAB 770-8([facility]) Neutrophils/leuk NFr Bld Auto 74.8 % LAB 751-8([facility]) Neutrophils # Bld Auto 3.13 1.45-7.50 k/uL LAB 736-9([facility]) Lymphocytes/leuk NFr Bld Auto 14.3 % LAB 731-0([facility]) Lymphocytes # Bld Auto 0.60 Low 1.00-4.00 k/uL LAB 5905-5([facility]) Monocytes/leuk NFr Bld Auto 9.3 % LAB 742-7([facility]) Monocytes # Bld Auto 0.39 <0.87 k/uL LAB 713-8([facility]) Eosinophil/leuk NFr Bld Auto 1.2 % LAB 711-2([facility]) Eosinophil # Bld Auto 0.05 <0.46 k/uL LAB 706-2([facility]) Basophils/leuk NFr Bld Auto 0.2 % LAB 704-7([facility]) Basophils # Bld Auto <0.03 <0.11 k/uL LAB 27410-8([facility]) Imm Granulocytes/christina k NFr Bld Auto 0.2 % LAB 74214-5([facility]) Imm Granulocytes # Bld Auto <0.03 <0.10 k/uL LAB 12221-3([facility]) nRBC/100 WBC Bld-Rto 0.0 /100 WBC LAB 771-6([facility]) nRBC # Bld Auto <0.01 <0.01 k/u L LAB 52706-0([facility]) Differential method Bld Auto Performed By: #### 21957-2 # ### [facility] CLIA [id number] [address] [place] OF [facility] PROGRESS Observed: 02/24/2025 11:34 AM Status: COMPLETED Source: [facility] HNO ID: [id number] Author: EZEQUIEL RAMIREZ RPh Service: ? Author Type: ? Type: Progress Notes Filed: 03/07/2025 12:20 Note Text: [facility] Specialty Refill Assessment Medication(s): Rosa Reviewed OV note on 03/02 - Tentative start, the week of March 08, if no other interventions needed by Rad Onc/NSGY and CBC adequate. Labs reviewed 03/06/25 - ANC 2.54, plt 104k. 90mg/m2 x 2.16m2 - patient cleared for cycle by VAZQUEZ Lee cycles are as follows: C1D1 06/28/24 C2D1 09/05/24 - patient delayed C3D1 10/18/24 - per MD office C4D1 12/12/24 - delaying until after daughter's graduation C5D1 01/23/25 C6D1 03/08/25 C7D1 ~04/19/25, MRI prior Next clinic visit scheduled 04/20/25, scans prior. ALLERGIES No Known Allergies Patient's current medication list and adherence status to current therapy were reviewed by Specialty Pharmacy clinical pharmacist to identify any new drug interactions or non-compliance to therapy. Therapy continues to be appropriate for disease, patient response, and medical condition. Verification of therapeutic benefit and effectiveness with current therapy was completed. Adverse events, barriers in adherence, and side effects were assessed and addressed if applicable. Will proceed with refill with no changes in therapy - patient progressing towards achieving therapeutic goals based on medication-specific laboratory parameters, disease state markers and outcomes. Office/provider notes have been reviewed prior to dispensing the medication. Ezequiel Ramirez, PharmD Clinical Pharmacist, Oncology [facility] P: , F: Pool: P [facility] Pool #: [id number] Tracer Lathe Set Up Operator Assessment Patient confirmed: Yes Med/dose confirmed: Yes Missed doses: No Estimated days supply on hand: 0 Copay amount: 30 Copay form of payment: Credit card on file Payment confirmed: Yes Delivery method: FedEx Signature required: Waived on patient request Delivery address: [address] [place] [address] Delivery date: 03/08/25 Questions or concerns for the pharmacist?: No Did you have any side effects believed to be related to this medication, that resulted in hospitalization?: No Current Outpatient Medications on File Prior to Visit Medication Sig valACYclovir (VALTREX) 500 mg tablet TAKE 1 TABLET BY MOUTH EVERY DAY traZODone (DESYREL) 50 mg tablet TAKE 1 TABLET BY MOUTH EVERYDAY AT BEDTIME dexAMETHasone (DECADRON) 2 mg tablet Take 1 tablet by mouth daily with breakfast. (Patient not taking: Reported on 01/19/2025) pantoprazole DR (PROTONIX) 40 mg tablet Take 1 tablet by mouth once daily. lacosamide (VIMPAT) 150 mg tab Take 1 tablet by mouth two times a day. ondansetron (ZOFRAN) 8 mg tablet Take one tablet by mouth on an empty stomach in the evening one hour prior to chemo. Then take one tablet 24 hours after chemo. May repeat dose every 8-12 hours if needed to prevent nausea midazolam (NAYZILAM) 5 mg/spray (0.1 mL) nasal spray Use 1 [place] in the nose as needed for up to 10 days. May repeat dose in alternate nostril after 10 minutes based on response and tolerability. sennosides (SENNA ORAL) Take by mouth. (Patient not taking: Reported on 08/12/2024) acetaminophen (TYLENOL) 325 mg tablet 2 tablets by ORAL/FEEDING TUBE route every 4 hours as needed for pain. No current facility-administered medications on file prior to visit. [facility] SPECIAL[facility] CLINICAL ASSESSMENT - HEMATOLOGY ONCOLOGY V6: Ivent complete: No Assessment to use: Refill Lab monitoring inclusive of CBC, Chem-7, and other labs as pertinent for therapy: Yes Chemo cycle timing assessment: Yes Assessment of injection issues: N/A Current medication list (including drug interaction assessment): Yes Experience of adverse reactions to the medication: Yes Date of influenza vaccination reminder: 02/25/2024 Date of most recent vaccination assessment: 02/25/2024 Treatment Plan Information: Diagnosis: GBM Previous treatment(s): Gross total resection [03/19/2023] , GCAR AGILE, randomized to [id number] IV twice weekly arm + Standard concurrent chemotherapy and radiation ,Adjuvant temozolomide PO D1-5 q 28 days Starting Dose/Titration: - 200mg as a single dose every 6 weeks - Dosing is 90 mg/m2 (200mg is max dose) Administration: - Administering on an empty stomach may reduce the incidence of nausea and vomiting. - Do not break capsules. If contact with skin occurs, immediately wash area (thoroughly). Avoid exposure to broken capsules. Supportive Care: - Associated with moderate-highly emetogenic risk; anti-emetics are recommended to prevent nauea and vomiting Side Effects/Warnings: include but are not limited to bone marrow suppression, hepatotoxicity, pulmonary toxicity, renal toxicity, secondary malignancies (MDS/AML) Monitoring: - CBC with differential and platelet count (weekly for at least 6 weeks after a dose) - Hepatic and renal function tests (periodic) - Pulmonary function tests (baseline and periodic) Drug-Drug Interactions: none identrified per Lexicomp 02/25/24 Baseline: - CrCl 104.4 ml/min Est. Tx Plan Start Date: No information available Estimated Start Date Info: Per Dr. Enriquez's discretion Est. Estimated Treatment Duration: Max 6 cycles Heavenly Kevin PROGRESS Observed: 02/24/2025 11:34 AM Status: COMPLETED Source: [facility] HNO ID: [id number] Author: EZEQUIEL RAMIREZ [facility] Service: ? Author Type: Pharmacist Type: Progress Notes Filed: 04/06/2025 06:54 Note Text: Discontinuation Assessment completed for the medication Gleostine . Patient no longer requires [facility] Patient Management Program Services at this time for this medication. Received msg from RN to confirm pt is done with lomustine As this is his 6/6 cycles of lomustine, we will stop here, in light, that the MRI changes, and likely treatment effect. Ezequiel Ramirez, PharmD Clinical Pharmacist, Oncology [facility] P: , F: Pool: P [facility] ONCOLOGY Pool #: [id number] FLUABV+SARS-COV-2+RSV PNL RE SP IZABELLA+PROBE Observed: 02/08/2025 1:37 PM Status: F Source: [facility] SARS-COV-2 (AGENT OF COVID-1 9) RNA: Not detectedINFLUENZA A RNA: Not detectedINFLUENZA B RNA: Not detectedRESPIRATORY SYNCYTIAL VIRUS (RSV) RNA: Not detected Performed By: #### [id number] # ### [facility] CLIA [id number] [address] [place] [address] STATES OF [facility] PROGRESS Observed: 02/08/2025 1:29 PM Status: COMPLETED Source: [facility] HNO ID: [id number] Author: BENJY TEAGUE APRN.MANUFACTURING ENGINEERING MANAGER Service: ? Author Type: Nurse Practitioner Type: Progress Notes Filed: 02/08/2025 14:00 Note Text: Subjective HPI Nontoxic-appearing 54-year-old male presents urgent care past medical history of glioblastoma multiforme. Presents today with chief complaint of headache fatigue. States he does get migraine headaches this is similar however the fatigue he is experiencing is different. States he was exposed to an individual who had COVID-19. Presents today for testing. OTC medications none. Denies any chest pain shortness of breath pleuritic pain hemoptysis. No high fevers. No body aches and chills. Past medical history prescription medications allergies reviewed. .Patient presents with: Headache: fatigue x 3 hours, covid exposure PAST MEDICAL HISTORY Diagnosis Date At risk for seizures 03/19/2023 due to left temporal glioblastoma GBM (glioblastoma multiforme) (HCC) 03/19/2023 WHO Grade 4 GBM; IDH1 R132H negative (wildtype); ATRX retained (wildtype); BRAF V600E negative (wildtype); p53 strong up to 40%; Ki67 up to 25%, MGMT unmethylated PAST SURGICAL HISTORY Procedure Laterality Date APPENDECTOMY 1976 removed as part of internal bleeding due to trauma COLONOSCOPY FLX DX W/COLLJ SPEC WHEN PFRMD Colonoscopy ESOPHAGOGASTRODUODENOSCOPY TRANSORAL DIAGNOSTIC EGD EXCIS SUPRATENT BRAIN TUMOR 03/19/2023 Left-sided craniotomy for temporal mass resection by Dr. Evans; path = GBM ORTHOPEDICS SURGERY HX 1997 knee surgery SHX CRANIOTOMY Left 03/19/2023 ALLERGIES Patient has no known allergies. MEDICATIONS valACYclovir (VALTREX) 500 mg tablet TAKE 1 TABLET BY MOUTH EVERY DAY traZODone (DESYREL) 50 mg tablet TAKE 1 TABLET BY MOUTH EVERYDAY AT BEDTIME lomustine (GLEOSTINE) 100 mg capsule Take one 8mg Zofran on an empty stomach in the evening. Wait ONE hour. Take TWO 100mg capsule(s) Lomustine by mouth for a total dose of 200mg. Take one 8 mg Zofran twenty-four hours later. Take on Day 1 of each [address] (PROTONIX) 40 mg tablet Take 1 tablet by mouth once daily. lacosamide (VIMPAT) 150 mg tab Take 1 tablet by mouth two times a day. ondansetron (ZOFRAN) 8 mg tablet Take one tablet by mouth on an empty stomach in the evening one hour prior to chemo. Then take one tablet 24 hours after chemo. May repeat dose every 8-12 hours if needed to prevent nausea midazolam (NAYZILAM) 5 mg/spray (0.1 mL) nasal spray Use 1 [place] in the nose as needed for up to 10 days. May repeat dose in alternate nostril after 10 minutes based on response and tolerability. acetaminophen (TYLENOL) 325 mg tablet 2 tablets by ORAL/FEEDING TUBE route every 4 hours as needed for pain. dexAMETHasone (DECADRON) 2 mg tablet Take 1 tablet by mouth daily with breakfast. (Patient not taking: Reported on 01/19/2025) sennosides (SENNA ORAL) Take by mouth. (Patient not taking: Reported on 08/12/2024) FAMILY HISTORY Problem Relation Age of Onset Diabetes Father Coronary Artery Disease Father Stroke Father Breast Cancer Mother None Sister Anesthesia Problems No Family History Social History Tobacco Use Smoking status: Former Current packs/day: 1.00 Average packs/day: 1 pack/day for 4.0 years (4.0 ttl pk-yrs) Types: Cigarettes, Cigars Smokeless tobacco: Never Vaping Use Vaping status: Never Used Substance Use Topics Alcohol use: Not Currently Comment: three beers a month - per pt [id number] Drug use: Never BP 130/84 Pulse 80 Temp 36.6 ?C (97.8 ?F) Resp 16 Wt 99.8 kg (220 lb 0.3 oz) SpO2 97% BMI 31.96 kg/m? Review of Systems Constitutional: Positive for malaise/fatigue. Negative for chills and fever. HENT: Negative for congestion, ear discharge, ear pain, sinus pain and sore throat. Eyes: Negative for blurred vision, pain, discharge and redness. Respiratory: Negative for cough, hemoptysis, sputum production, shortness of breath, wheezing and stridor. Cardiovascular: Negative for chest pain. Gastrointestinal: Negative for abdominal pain, diarrhea, nausea and vomiting. Musculoskeletal: Positive for myalgias. Skin: Negative for itching and rash. Neurological: Positive for headaches. Negative for dizziness. Objective Physical Exam Constitutional: General: He is not in acute distress. Appearance: He is not diaphoretic. HENT: Head: Normocephalic. Jaw: No trismus, tenderness, swelling or pain on movement. Mouth/Throat: Mouth: Mucous membranes are moist. Pharynx: Oropharynx is clear. Uvula midline. No pharyngeal swelling, oropharyngeal exudate, posterior oropharyngeal erythema or uvula swelling. Eyes: Conjunctiva/sclera: Conjunctivae normal. Pupils: Pupils are equal, round, and reactive to light. Cardiovascular: Rate and Rhythm: Normal rate and regular rhythm. Heart sounds: Normal heart sounds. Pulmonary: Effort: Pulmonary effort is normal. No tachypnea, accessory muscle usage or respiratory distress. Breath sounds: Normal breath sounds. No stridor. No wheezing, rhonchi or rales. Musculoskeletal: Cervical back: Normal range of motion and neck supple. No edema, erythema, rigidity or tenderness. No pain with movement. Normal range of motion. Lymphadenopathy: Cervical: No cervical adenopathy. Skin: General: Skin is warm and dry. Neurological: Mental Status: He is alert and oriented to person, place, and time. ASSESSMENT/PLAN: 1. Viral illness - ICD9: 079.99, ICD10: B34.9 - COVID AND INFLUENZA A/B AND RSV PCR, ROUTINE Nontoxic-appearing. Hemodynamically stable. Will test for COVID-19 with past medical history and positive exposure. Tylerlovid sent to pharmacy. GFR 63 January of this year. If positive may start Paxlovid. Was noted patient did have interaction with trazodone. Recommended holding trazodone when on this medication. Encourage patient to reach out to oncologist with presenting symptoms and starting of Paxlovid. Red flags reevaluation discussed. Patient was educated on supportive therapies. Patient will follow up with primary care provider as needed. Patient was instructed to immediately proceed to emergency room for any new, worsening, or symptoms lasting longer than anticipated. The patient's clinical presentation is otherwise unremarkable at this time. Based on exam and clinical finding, the patient is stable for discharge. Plan of care was discussed with patient. Patient verbalizes understanding and agrees to plan of care. This note was generated using Last Guide software. It may contain errors in wording, punctuation, or spelling. Benjy Teague APRN.CNP CNOV Observed: 02/08/2025 1:15 PM Status: COMPLETED Source: [facility] Office Visit (WSTR) ANGEL KEATING ([id number]) 1970 M Date Time Provider Department 02/08/25 1:15 PM BENJY TEAGUE [facility] During your visit today, we recorded the following information about you: Temperature Pulse Respiration Blood pressure 97.8 degrees 80/minute 16/minute 130/84 Weight 99.8 kg Benjy Teague APRN.CNP 02/08/2025 2:00 PM Signed Subjective HPI Nontoxic-appearing 54-year-old male presents urgent care past medical history of glioblastoma multiforme. Presents today with chief complaint of headache fatigue. States he does get migraine headaches this is similar however the fatigue he is experiencing is different. States he was exposed to an individual who had COVID-19. Presents today for testing. OTC medications none. Denies any chest pain shortness of breath pleuritic pain hemoptysis. No high fevers. No body aches and chills. Past medical history prescription medications allergies reviewed. .Patient presents with: Headache: fatigue x 3 hours, covid exposure PAST MEDICAL HISTORY Diagnosis Date At risk for seizures 03/19/2023 due to left temporal glioblastoma GBM (glioblastoma multiforme) (HCC) 03/19/2023 WHO Grade 4 GBM; IDH1 R132H negative (wildtype); ATRX retained (wildtype); BRAF V600E negative (wildtype); p53 strong up to 40%; Ki67 up to 25%, MGMT unmethylated PAST SURGICAL HISTORY Procedure Laterality Date APPENDECTOMY 1976 removed as part of internal bleeding due to trauma COLONOSCOPY FLX DX W/COLLJ SPEC WHEN PFRMD Colonoscopy ESOPHAGOGASTRODUODENOSCOPY TRANSORAL DIAGNOSTIC EGD EXCIS SUPRATENT BRAIN TUMOR 03/19/2023 Left-sided craniotomy for temporal mass resection by Dr. Evans; path = GBM ORTHOPEDICS SURGERY HX 1996 knee surgery SHX CRANIOTOMY Left 03/19/2023 ALLERGIES Patient has no known allergies. MEDICATIONS valACYclovir (VALTREX) 500 mg tablet TAKE 1 TABLET BY MOUTH EVERY DAY traZODone (DESYREL) 50 mg tablet TAKE 1 TABLET BY MOUTH EVERYDAY AT BEDTIME lomustine (GLEOSTINE) 100 mg capsule Take one 8mg Zofran on an empty stomach in the evening. Wait ONE hour. Take TWO 100mg capsule(s) Lomustine by mouth for a total dose of 200mg. Take one 8 mg Zofran twenty-four hours later. Take on Day 1 of each [address] (PROTONIX) 40 mg tablet Take 1 tablet by mouth once daily. lacosamide (VIMPAT) 150 mg tab Take 1 tablet by mouth two times a day. ondansetron (ZOFRAN) 8 mg tablet Take one tablet by mouth on an empty stomach in the evening one hour prior to chemo. Then take one tablet 24 hours after chemo. May repeat dose every 8-12 hours if needed to prevent nausea midazolam (NAYZILAM) 5 mg/spray (0.1 mL) nasal spray Use 1 [place] in the nose as needed for up to 10 days. May repeat dose in alternate nostril after 10 minutes based on response and tolerability. acetaminophen (TYLENOL) 325 mg tablet 2 tablets by ORAL/FEEDING TUBE route every 4 hours as needed for pain. dexAMETHasone (DECADRON) 2 mg tablet Take 1 tablet by mouth daily with breakfast. (Patient not taking: Reported on 01/19/2025) sennosides (SENNA ORAL) Take by mouth. (Patient not taking: Reported on 08/12/2024) FAMILY HISTORY Problem Relation Age of Onset Diabetes Father Coronary Artery Disease Father Stroke Father Breast Cancer Mother None Sister Anesthesia Problems No Family History Social History Tobacco Use Smoking status: Former Current packs/day: 1.00 Average packs/day: 1 pack/day for 4.0 years (4.0 ttl pk-yrs) Types: Cigarettes, Cigars Smokeless tobacco: Never Vaping Use Vaping status: Never Used Substance Use Topics Alcohol use: Not Currently Comment: three beers a month - per pt [id number] Drug use: Never BP 130/84 Pulse 80 Temp 36.6 ?C (97.8 ?F) Resp 16 Wt 99.8 kg (220 lb 0.3 oz) SpO2 97% BMI 31.96 kg/m? Review of Systems Constitutional: Positive for malaise/fatigue. Negative for chills and fever. HENT: Negative for congestion, ear discharge, ear pain, sinus pain and sore throat. Eyes: Negative for blurred vision, pain, discharge and redness. Respiratory: Negative for cough, hemoptysis, sputum production, shortness of breath, wheezing and stridor. Cardiovascular: Negative for chest pain. Gastrointestinal: Negative for abdominal pain, diarrhea, nausea and vomiting. Musculoskeletal: Positive for myalgias. Skin: Negative for itching and rash. Neurological: Positive for headaches. Negative for dizziness. Objective Physical Exam Constitutional: General: He is not in acute distress. Appearance: He is not diaphoretic. HENT: Head: Normocephalic. Jaw: No trismus, tenderness, swelling or pain on movement. Mouth/Throat: Mouth: Mucous membranes are moist. Pharynx: Oropharynx is clear. Uvula midline. No pharyngeal swelling, oropharyngeal exudate, posterior oropharyngeal erythema or uvula swelling. Eyes: Conjunctiva/sclera: Conjunctivae normal. Pupils: Pupils are equal, round, and reactive to light. Cardiovascular: Rate and Rhythm: Normal rate and regular rhythm. Heart sounds: Normal heart sounds. Pulmonary: Effort: Pulmonary effort is normal. No tachypnea, accessory muscle usage or respiratory distress. Breath sounds: Normal breath sounds. No stridor. No wheezing, rhonchi or rales. Musculoskeletal: Cervical back: Normal range of motion and neck supple. No edema, erythema, rigidity or tenderness. No pain with movement. Normal range of motion. Lymphadenopathy: Cervical: No cervical adenopathy. Skin: General: Skin is warm and dry. Neurological: Mental Status: He is alert and oriented to person, place, and time. ASSESSMENT/PLAN: 1. Viral illness - ICD9: 079.99, ICD10: B34.9 - COVID AND INFLUENZA A/B AND RSV PCR, ROUTINE Nontoxic-appearing. Hemodynamically stable. Will test for COVID-19 with past medical history and positive exposure. Paxlovid sent to pharmacy. GFR January of this year. If positive may start Paxlovid. Was noted patient did have interaction with trazodone. Recommended holding trazodone when on this medication. Encourage patient to reach out to oncologist with presenting symptoms and starting of Paxlovid. Red flags reevaluation discussed. Patient was educated on supportive therapies. Patient will follow up with primary care provider as needed. Patient was instructed to immediately proceed to emergency room for any new, worsening, or symptoms lasting longer than anticipated. The patient's clinical presentation is otherwise unremarkable at this time. Based on exam and clinical finding, the patient is stable for discharge. Plan of care was discussed with patient. Patient verbalizes understanding and agrees to plan of care. This note was generated using Last Guide software. It may contain errors in wording, punctuation, or spelling. Benjy Teague APRN.MANUFACTURING ENGINEERING MANAGER Allergies As of Date: 02/08/2025 (No Known Allergies) Date Reviewed: 02/08/2025 Reviewed by: Benjy Teague APRN.MANUFACTURING ENGINEERING MANAGER - Fully Assessed Reason for Visit: Headache [52] Cmt: fatigue x 3 hours, covid exposure Primary Visit Diagnosis:Viral illness [B34.9] Order(s):COVID AND INFLUENZA A/B AND RSV PCR, ROUTINE [SQCVFLRS] Order #: [id number]. #:[id number] nirmatrelvir tablet 300 mg (150 mg x 2) and ritonavir tablet 100 mg in a dose pack (PAXLOVID)Administer TWO pink nirmatrelvir 150 mg tablets and ONE white ritonavir 100 mg tablet for a total of three tablets twice daily.Disp: 30 tabletRfl: 0 Prescriptions as of 02/08/2025 - nirmatrelvir tablet 300 mg (150 mg x 2) and ritonavir tablet 100 mg in a dose pack (PAXLOVID) Administer TWO pink nirmatrelvir 150 mg tablets and ONE white ritonavir 100 mg tablet for a total of three tablets twice daily. - valACYclovir (VALTREX) 500 mg tablet TAKE 1 TABLET BY MOUTH EVERY DAY - traZODone (DESYREL) 50 mg tablet TAKE 1 TABLET BY MOUTH EVERYDAY AT BEDTIME - lomustine (GLEOSTINE) 100 mg capsule Take one 8mg Zofran on an empty stomach in the evening. Wait ONE hour. Take TWO 100mg capsule(s) Lomustine by mouth for a total dose of 200mg. Take one 8 mg Zofran twenty-four hours later. Take on Day 1 of each 42 day cycle. - dexAMETHasone (DECADRON) 2 mg tablet Take 1 tablet by mouth daily with breakfast. - pantoprazole DR (PROTONIX) 40 mg tablet Take 1 tablet by mouth once daily. - lacosamide (VIMPAT) 150 mg tab Take 1 tablet by mouth two times a day. - ondansetron (ZOFRAN) 8 mg tablet Take one tablet by mouth on an empty stomach in the evening one hour prior to chemo. Then take one tablet 24 hours after chemo. May repeat dose every 8-12 hours if needed to prevent nausea - midazolam (NAYZILAM) 5 mg/spray (0.1 mL) nasal spray Use 1 [place] in the nose as needed for up to 10 days. May repeat dose in alternate nostril after 10 minutes based on response and tolerability. - sennosides (SENNA ORAL) Take by mouth. - acetaminophen (TYLENOL) 325 mg tablet 2 tablets by ORAL/FEEDING TUBE route every 4 hours as needed for pain. Problem List As Of Date 02/08/2025 Noted Resolved Chest pain [R07.9] 04/25/2010 05/26/2024 Brain mass [G93.89] 03/17/2023 11/17/2023 Obesity, Class I, BMI 30-34.9 [E66.811] 03/17/2023 Brain compression (HCC) [G93.5] 03/20/2023 S/P brain surgery [Z98.890] 03/20/2023 11/17/2023 At risk for seizures [Z91.89] 03/20/2023 Cerebral edema (HCC) [G93.6] 03/20/2023 GBM (glioblastoma multiforme) (HCC) [C71.9] 04/07/2023 Syncope, unspecified syncope type [R55] 11/01/2023 11/03/2023 Examination of participant in clinical trial [Z*11/05/2023 11/17/2023 Forehead pain [R51.9] 11/05/2023 PONV (postoperative nausea and vomiting) [R11.2*05/26/2024 Acute post-operative pain [G89.18] 05/29/2024 Thrombocytopenia [D69.6] 10/13/2024 Prescriptions ordered this encounter Disp Refills Start End NIRMATRELVIR 300 MG (150 MG X2)-CARMELO* 30 t* 0 02/08/2025 02/13/2025 Sig: Administer TWO pink nirmatrelvir 150 mg tablets and ONE white ritonavir 100 mg tablet for a total of three tablets twice daily. Level of Service: OFFICE/OUTPATIENT ESTABLISHED MOD MDM 30 MIN [49094] Encounter Status:Closed by BENJY TEAGUE on 02/08/25 PROGRESS Observed: 01/23/2025 9:50 AM Status: COMPLETED Source: [facility] HNO ID: [id number] Author: ESME COOK, RN Service: ? Author Type: Registered Nurse Type: Progress Notes Filed: 01/23/2025 09:52 Note Text: Labs drawn 01/20/25 and results reviewed by Dr.Torres morales to proceed with cycle #5 Medication: Lomustine 90mg/m2 x BSA 2.21 = 200mg. Take 200 mg x 1 dose every 6 weeks. Cycle Duration: 01/22/25-03/05/25 Labs due at end of cycle 03/03 Cycle #6 should begin 03/06/25 PLT: 231 ANC: 2.34 ALK Phos: 96 AST: 13 ALT: 10 Esme Cook RN, BSN Banking Supervisor Vaishali Todd Brain Tumor AND Neuro Oncology Team CNPN Observed: 01/23/2025 12:00 AM Status: COMPLETED Source: [facility] Telephone (NSCAMN) ANGEL KEATING ([id number]) 1970 M Date Time Provider Department 01/23/25 [facility] During your visit today, we recorded the following information about you: Esme Cook RN 01/23/2025 9:53 AM Signed Scheduling Request - Established Patient Time Frame: 6 weeks Orders: MRI brain Provider: Juno Visit type: In person 1-2 days after MRI Diagnosis: GBM Catrachita Castelan 01/23/2025 1:21 PM Signed Spoke to Pt, he was not around his calendar to schedule at the moment. Esme Cook RN 02/21/2025 11:55 AM Signed Ruddy Domínguez, can you call him again? He's due in about 2 weeks Catrachita Castelan 02/21/2025 1:59 PM Signed Spoke to Pt, he is scheduled AND confirmed. Allergies As of Date: 01/23/2025 (No Known Allergies) Date Reviewed: 01/19/2025 Reviewed by: Karla Pedroza MA - Fully Assessed Reason for Visit: JUANCARLOS 6 weeks [Other] Prescriptions as of 02/21/2025 - valACYclovir (VALTREX) 500 mg tablet TAKE 1 TABLET BY MOUTH EVERY DAY - traZODone (DESYREL) 50 mg tablet TAKE 1 TABLET BY MOUTH EVERYDAY AT BEDTIME - lomustine (GLEOSTINE) 100 mg capsule Take one 8mg Zofran on an empty stomach in the evening. Wait ONE hour. Take TWO 100mg capsule(s) Lomustine by mouth for a total dose of 200mg. Take one 8 mg Zofran twenty-four hours later. Take on Day 1 of each 42 day cycle. - dexAMETHasone (DECADRON) 2 mg tablet Take 1 tablet by mouth daily with breakfast. - pantoprazole DR (PROTONIX) 40 mg tablet Take 1 tablet by mouth once daily. - lacosamide (VIMPAT) 150 mg tab Take 1 tablet by mouth two times a day. - ondansetron (ZOFRAN) 8 mg tablet Take one tablet by mouth on an empty stomach in the evening one hour prior to chemo. Then take one tablet 24 hours after chemo. May repeat dose every 8-12 hours if needed to prevent nausea - midazolam (NAYZILAM) 5 mg/spray (0.1 mL) nasal spray Use 1 [place] in the nose as needed for up to 10 days. May repeat dose in alternate nostril after 10 minutes based on response and tolerability. - sennosides (SENNA ORAL) Take by mouth. - acetaminophen (TYLENOL) 325 mg tablet 2 tablets by ORAL/FEEDING TUBE route every 4 hours as needed for pain. Problem List As Of Date 01/23/2025 Noted Resolved Chest pain [R07.9] 04/25/2010 05/26/2024 Brain mass [G93.89] 03/17/2023 11/17/2023 Obesity, Class I, BMI 30-34.9 [E66.811] 03/17/2023 Brain compression (HCC) [G93.5] 03/20/2023 S/P brain surgery [Z98.890] 03/20/2023 11/17/2023 At risk for seizures [Z91.89] 03/20/2023 Cerebral edema (HCC) [G93.6] 03/20/2023 GBM (glioblastoma multiforme) (HCC) [C71.9] 04/07/2023 Syncope, unspecified syncope type [R55] 11/01/2023 11/03/2023 Examination of participant in clinical trial [Z*11/05/2023 11/17/2023 Forehead pain [R51.9] 11/05/2023 PONV (postoperative nausea and vomiting) [R11.2*05/26/2024 Acute post-operative pain [G89.18] 05/29/2024 Thrombocytopenia [D69.6] 10/13/2024 Encounter Status:Closed by CATRACHITA CASTELAN on 01/23/25 PROGRESS Observed: 01/20/2025 4:46 PM Status: COMPLETED Source: [facility] HNO ID: [id number] Author: EZEQUIEL RAMIREZ [facility] Service: ? Author Type: ? Type: Progress Notes Filed: 01/20/2025 16:57 Note Text: [facility] Refill Assessment Medication(s): Gleostine Reviewed OV note on 01/19 - MRI 01/17 reviewed (see below) Labs reviewed 01/19 - plt/ANC sufficient to continue. Areas of concern have been previously radiated, likely causing inflammation rather than tumor progression. Hence I think is reasonable to continue with current treatment, and assess in 6 weeks with an MRI. Areas of concern have been previously radiated, likely causing inflammation rather than tumor progression. Hence I think is reasonable to continue with current treatment, and assess in 6 weeks with an MRI. Gleostine cycles are as follows: C1D1 06/28/24 C2D1 09/05/24 - patient delayed C3D1 10/18/24 - per MD office C4D1 12/12/24 - delaying until after daughter's graduation C5D1 01/23/25 C6D1 03/06/25 Next clinic visit not scheduled. ALLERGIES No Known Allergies Patient's current medication list and adherence status to current therapy were reviewed by Specialty Pharmacy clinical pharmacist to identify any new drug interactions or non-compliance to therapy. Therapy continues to be appropriate for disease, patient response, and medical condition. Verification of therapeutic benefit and effectiveness with current therapy was completed. Adverse events, barriers in adherence, and side effects were assessed and addressed if applicable. Will proceed with refill with no changes in therapy - patient progressing towards achieving therapeutic goals based on medication-specific laboratory parameters, disease state markers and outcomes. Office/provider notes have been reviewed prior to dispensing the medication. Ezequile Ramirez, PharmD Clinical Pharmacist, Oncology [facility] P: , F: Pool: P [facility] ON[facility] Pool #: [id number] Tracer Lathe Set Up Operator Assessment Patient confirmed: Yes Med/dose confirmed: Yes Supplies needed: No supplies needed Missed doses: No Estimated days supply on hand: 0 Next cycle/dose due: 01/23/25 Copay amount: 30 Copay form of payment: Credit card on file Payment confirmed: Yes Delivery method: FedEx (thursday) Signature required: No Delivery address: [address] [place] [address] Delivery date: 01/21/25 Questions or concerns for the pharmacist?: No Did you have any side effects believed to be related to this medication, that resulted in hospitalization?: No Current Outpatient Medications on File Prior to Visit Medication Sig lomustine (GLEOSTINE) 100 mg capsule Take one 8mg Zofran on an empty stomach in the evening. Wait ONE hour. Take TWO 100mg capsule(s) Lomustine by mouth for a total dose of 200mg. Take one 8 mg Zofran twenty-four hours later. Take on Day 1 of each 42 day cycle. dexAMETHasone (DECADRON) 2 mg tablet Take 1 tablet by mouth daily with breakfast. (Patient not taking: Reported on 01/19/2025) pantoprazole DR (PROTONIX) 40 mg tablet Take 1 tablet by mouth once daily. lacosamide (VIMPAT) 150 mg tab Take 1 tablet by mouth two times a day. ondansetron (ZOFRAN) 8 mg tablet Take one tablet by mouth on an empty stomach in the evening one hour prior to chemo. Then take one tablet 24 hours after chemo. May repeat dose every 8-12 hours if needed to prevent nausea midazolam (NAYZILAM) 5 mg/spray (0.1 mL) nasal spray Use 1 [place] in the nose as needed for up to 10 days. May repeat dose in alternate nostril after 10 minutes based on response and tolerability. sennosides (SENNA ORAL) Take by mouth. (Patient not taking: Reported on 08/12/2024) acetaminophen (TYLENOL) 325 mg tablet 2 tablets by ORAL/FEEDING TUBE route every 4 hours as needed for pain. No current facility-administered medications on file prior to visit. [facility] RX SPECIALTY CLINICAL ASSESSMENT - HEMATOLOGY ONCOLOGY V6: Ivent complete: No Assessment to use: Refill Lab monitoring inclusive of CBC, Chem-7, and other labs as pertinent for therapy: Yes Chemo cycle timing assessment: Yes Assessment of injection issues: N/A Current medication list (including drug interaction assessment): Yes Experience of adverse reactions to the medication: Yes Date of influenza vaccination reminder: 02/25/2024 Date of most recent vaccination assessment: 02/25/2024 Treatment Plan Information: Diagnosis: GBM Previous treatment(s): Gross total resection [03/19/2023] , GCAR AGILE, randomized to [id number] IV twice weekly arm + Standard concurrent chemotherapy and radiation ,Adjuvant temozolomide PO D1-5 q 28 days Starting Dose/Titration: - 200mg as a single dose every 6 weeks - Dosing is 90 mg/m2 (200mg is max dose) Administration: - Administering on an empty stomach may reduce the incidence of nausea and vomiting. - Do not break capsules. If contact with skin occurs, immediately wash area (thoroughly). Avoid exposure to broken capsules. Supportive Care: - Associated with moderate-highly emetogenic risk; anti-emetics are recommended to prevent nauea and vomiting Side Effects/Warnings: include but are not limited to bone marrow suppression, hepatotoxicity, pulmonary toxicity, renal toxicity, secondary malignancies (MDS/AML) Monitoring: - CBC with differential and platelet count (weekly for at least 6 weeks after a dose) - Hepatic and renal function tests (periodic) - Pulmonary function tests (baseline and periodic) Drug-Drug Interactions: none identrified per [employer] 02/25/24 Baseline: - CrCl 104.4 ml/min Est. Tx Plan Start Date: No information available Estimated Start Date Info: Per Dr. Enriquez's discretion Est. Estimated Treatment Duration: Max 6 cycles Maral Martel CPhT [facility], Oncology P: / F: TRINO Observed: 01/20/2025 12:00 AM Status: COMPLETED Source: [facility] ANGEL KEATING ([id number]) 1970 M Date Time Provider Department 01/20/25 PATRICIA ENRIQUEZ [facility] During your visit today, we recorded the following information about you: Nel Li 01/20/2025 11:43 AM Signed General Call Caller : Pt Contact Reason for Call : Pt has questions regards gleostine meds. Patient requesting return call ? Yes Tona Cobos RN 01/20/2025 4:30 PM Signed Returned call Patient says he was told he could start his chemo on Thursday but does not have it. I checked and will get his Lomustine refill ordered. His cycle ends on 01/22 so the earliest he could start would be 01/23. I told him he should have him chemo by Thursday or Thursday. Tona Cobos RN, BSN Banking Supervisor [facility] Allergies As of Date: 01/20/2025 (No Known Allergies) Date Reviewed: 01/19/2025 Reviewed by: Karla Pedroza MA - Fully Assessed Reason for Visit: Question [1327] Prescriptions as of 01/20/2025 - lomustine (GLEOSTINE) 100 mg capsule Take one 8mg Zofran on an empty stomach in the evening. Wait ONE hour. Take TWO 100mg capsule(s) Lomustine by mouth for a total dose of 200mg. Take one 8 mg Zofran twenty-four hours later. Take on Day 1 of each 42 day cycle. - dexAMETHasone (DECADRON) 2 mg tablet Take 1 tablet by mouth daily with breakfast. - pantoprazole DR (PROTONIX) 40 mg tablet Take 1 tablet by mouth once daily. - lacosamide (VIMPAT) 150 mg tab Take 1 tablet by mouth two times a day. - ondansetron (ZOFRAN) 8 mg tablet Take one tablet by mouth on an empty stomach in the evening one hour prior to chemo. Then take one tablet 24 hours after chemo. May repeat dose every 8-12 hours if needed to prevent nausea - midazolam (NAYZILAM) 5 mg/spray (0.1 mL) nasal spray Use 1 [place] in the nose as needed for up to 10 days. May repeat dose in alternate nostril after 10 minutes based on response and tolerability. - sennosides (SENNA ORAL) Take by mouth. - acetaminophen (TYLENOL) 325 mg tablet 2 tablets by ORAL/FEEDING TUBE route every 4 hours as needed for pain. Problem List As Of Date 01/20/2025 Noted Resolved Chest pain [R07.9] 04/25/2010 05/26/2024 Brain mass [G93.89] 03/17/2023 11/17/2023 Obesity, Class I, BMI 30-34.9 [E66.811] 03/17/2023 Brain compression (HCC) [G93.5] 03/20/2023 S/P brain surgery [Z98.890] 03/20/2023 11/17/2023 At risk for seizures [Z91.89] 03/20/2023 Cerebral edema (HCC) [G93.6] 03/20/2023 GBM (glioblastoma multiforme) (HCC) [C71.9] 04/07/2023 Syncope, unspecified syncope type [R55] 11/01/2023 11/03/2023 Examination of participant in clinical trial [Z*11/05/2023 11/17/2023 Forehead pain [R51.9] 11/05/2023 PONV (postoperative nausea and vomiting) [R11.2*05/26/2024 Acute post-operative pain [G89.18] 05/29/2024 Thrombocytopenia [D69.6] 10/13/2024 Encounter Status:Closed by TONA COBOS on 01/20/25 CBC W AUTO DIFF BLD Collected: 01/19/2025 12:58 PM S tatus: F Source: [facility] Order Comment: Specimen Type : BLOOD SPECIMEN Ordering Facility: [facility] Address: [address] [place] [address] TYPE CODE TESTS RESULT OUT OF RANGE REFERENCE UNITS LAB 6690-2(LOINC) WBC # Bld Auto 3.33 Low 3.70-11.00 k/uL LAB 789-8(LOINC) RBC # Bld Auto 3.93 Low 4.20-6.00 m/ uL LAB 718-7(LOINC) Hgb Bld-mCnc 13.4 13.0-17.0 g/dL LAB 4544-3(LOINC) Hct VFr Bld Auto 38.0 Low 39.0-51.0 % LAB 787-2(LOINC) MCV RBC Auto 96.7 80.0-100.0 fL LAB 785-6(LOINC) MCH RBC Qn Auto 34.1 High 26.0-34.0 p g LAB 786-4(LOINC) MCHC RBC Auto-mCnc 35.3 30.5-36.0 g/dL LAB 09213-9([facility]) RDW RBC-Rto 14.3 11.5-15.0 % LAB 777-3([facility]) Platelet # Bld Auto 231 150-400 k/uL LAB 27043-9([facility]) PMV Bld Auto 8.8 Low 9.0-12.7 fL LAB 770-8([facility]) Neutrophils/leuk NFr Bld Auto 70.3 % LAB 751-8([facility]) Neutrophils # Bld Auto 2.34 1.45-7.50 k/uL LAB 736-9([facility]) Lymphocytes/leuk NFr Bld Auto 12.6 % LAB 731-0([facility]) Lymphocytes # Bld Auto 0.42 Low 1.00-4.00 k/uL LAB 5905-5([facility]) Monocytes/leuk NFr Bld Auto 15.3 % LAB 742-7([facility]) Monocytes # Bld Auto 0.51 <0.87 k/uL LAB 713-8([facility]) Eosinophil/leuk NFr Bld Auto 0.9 % LAB 711-2([facility]) Eosinophil # Bld Auto 0.03 <0.46 k/uL LAB 706-2([facility]) Basophils/leuk NFr Bld Auto 0.6 % LAB 704-7([facility]) Basophils # Bld Auto <0.03 <0.11 k/uL LAB 23760-7([facility]) Imm Granulocytes/christina k NFr Bld Auto 0.3 % LAB 26696-8([facility]) Imm Granulocytes # Bld Auto <0.03 <0.10 k/uL LAB 63733-0([facility]) nRBC/100 WBC Bld-Rto 0.0 /100 WBC LAB 771-6([facility]) nRBC # Bld Auto <0.01 <0.01 k/u L LAB 38222-4([facility]) Differential method Bld Auto Performed By: #### [id number] # ### [facility] LAB CLIA [id number] [address] [place] COMP METAB 2000 PNL SERPL Collected: 12:58 PM Status: F Source: [facility] Order Comment: Specimen Type : BLOOD SPECIMEN Ordering Facility: [facility] Address: [address], [place] [address] TYPE CODE TESTS RESULT OUT OF RANGE REFERENCE UNITS LAB 2885-2(LOINC) Prot SerPl-mCnc 7.1 6.3-8.0 g/dL LAB 1751-7(LOINC) Albumin SerPl-mCnc 4.0 3.9-4.9 g/dL LAB 16808-1(LOINC) Calcium SerPl-mCnc 9.2 8.5-10.2 mg/dL LAB 1975-2(LOINC) Bilirub SerPl-mCnc 0.4 0.2-1.3 mg/dL LAB 6768-6(LOINC) ALP SerPl-cCnc 96 38-113 U/L LAB 1920-8(LOINC) AST SerPl-cCnc 13 Low 14-40 U/L LAB 1742-6(LOINC) ALT SerPl-cCnc 10 10-54 U/L LAB 2345-7(LOINC) Glucose SerPl-mCnc 96 74-99 mg/dL Result Comment: The [place] Diabetes Association (ADA) provides guidance for cutoff values for fasting glucose and random glucose. The ADA defines fasting as no caloric intake for at least 8 hours. Fasting plasma glucose results between 100 to 125 mg/dL indicate increased risk for diabetes (prediabetes). Fasting plasma glucose results greater than or equal to 126 mg/dL meet the criteria for diagnosis of diabetes. In the absence of unequivocal hyperglycemia, results should be confirmed by repeat testing. In a patient with classic symptoms of hyperglycemia or hyperglycemic crisis, random plasma glucose results greater than or equal to 200 mg/dL meet the criteria for diagnosis of diabetes. Reference: Standards of Medical Care in Diabetes 2016, [place] Diabetes Association. Diabetes Care. 2016.39(Suppl 1). LAB 3094-0(LOINC) BUN SerPl-mCnc 12 9-24 mg/ dL LAB 2160-0(LOINC) Creat SerPl-mCnc 1.32 High 0.73-1.22 mg/dL LAB 2951-2(LOINC) Sodium SerPl-sCnc 142 136-144 mmol/L LAB 2823-3(LOINC) Potassium SerPl-sCnc 4.4 3.7-5.1 mmol/L LAB 2075-0(LOINC) Chloride SerPl-sCnc 108 High 98-107 mmol/L LAB 2027-9(LOINC) CO2 SerPl-sCnc 21 Low 22-30 mmo l/L LAB 84827-5(LOINC) Anion Gap SerPl-sCnc 13 8-15 mmol/L LAB 11257-3(LOINC) Creatinine + eGFR Pnl SerPlBld 63 >=60 mL/min/1 .73m??? Result Comment: Estimated Gl omerular Filtration Rate (eGFR) is calculated using the 2020 CKD-EPI creatinine equation. This equation utilizes serum creatinine, sex, and age as parameters. The creatinine assay has traceable calibration to isotope dilution-mass spectrometry. Refer to KDIGO guidelines for clinical interpretation. In patients with unstable renal function, e.g. those with acute kidney injury, the eGFR may not accurately reflect actual GFR. Performed By: #### 14550-6 # ### [facility] CLIA [id number] [address] [place] [address] OF [facility] PROGRESS Observed: 01/19/2025 11:27 AM Status: COMPLETED Source: [facility] HNO ID: [id number] Author: PATRICIA ENRIQUEZ MD Service: ? Author Type: Physician Type: Progress Notes Filed: 01/24/2025 22:10 Note Text: [facility] Follow up Clinic Visit HPI Angel Keating is a 54-year-old male with a history of glioblastoma multiforme, presenting for follow-up. He is accompanied by his family, who provide additional history. Angel was diagnosed with glioblastoma multiforme in March 2023. He has undergone Gamma Knife treatment for nodules in the temporal and frontal regions and is currently receiving lomustine, with the next cycle (cycle 5) due to start on Thursday. He has not had a seizure in a long time and has been on the same seizure medication, lacosamide 150 mg twice daily, for about 20 months. He also takes trazodone for sleep and valacyclovir prophylactically due to two outbreaks over a short period of time. He reports experiencing rashes described as red, scaly, and flaky, resembling dandruff, on his chest, sides, legs, back of his arms, neck, and head. These rashes have been present for a long time, with the last occurrence on his body a few months ago. He has been dealing with rashes on his head for the last couple of months, though they have not been as severe as in the past. He does not endorse any fluid-filled bumps. He also reports swelling and pain in his hands and legs, particularly on the left side, during episodes of rash. He experiences frequent shooting sensations described as an electrical firestorm from his knee down to his toes, which occur without a specific trigger. These sensations have improved with amitriptyline, though they still occur. He also experiences muscle cramps, particularly at night, and charley horses in his buttocks. He expresses a desire to remain functional for his daughter's wedding in 100 days and is interested in exploring additional treatment options, including a clinical trial involving a chimeric polio virus. Past Diagnostic Results: - (01/17/2025) MRI: Evolving post-therapy changes with progressive nodular enhancement and T2 signal; suspicious for progressive malignancy. - (11/2024) MRI: Comparison for January 2025 MRI. PHYSICAL EXAMINATION: - Neurological: - CNII: Visual land intact. - CNIII/CNIV/CNVI: Extraocular movements intact. - CNV: Sensation intact. - CNVII: Facial movements intact. - CNIX/CNX: Palate elevation intact. - CNXI: Shoulder shrug strength intact. - Motor: No atrophy or asymmetry noted. - Strength: - Arms: - Deltoids: Left: 5/5, Right: 5/5 - Biceps: Left: 5/5, Right: 5/5 - Triceps: Left: 5/5, Right: 5/5 - Lower Extremities: - Hip Flexors: Left: 5/5, Right: 5/5 - Hip Extensors: Left: 5/5, Right: 5/5 - Knee Flexion: Left: 5/5, Right: 5/5 - Knee Extension: Left: 5/5, Right: 5/5 - Ankle Dorsiflexion: Left: 5/5, Right: 5/5 - Ankle Plantarflexion: Left: 5/5, Right: 5/5 - Reflexes: - Arms: - Triceps: Left: 2+, Right: 2+ - Biceps: Left: 2+, Right: 2+ - Brachioradialis: Left: 2+, Right: 2+ - Lower Extremities: - Patella: Left: 2+, Right: 2+ - Achilles: Left: 2+, Right: 2+ - Babinski: Left: Downgoing, Right: Downgoing - Sensation: Intact to light touch and pinprick. - Coordination: Koygez-xn-cncc and blsz-yp-aimw testing intact. - Gait: Normal. 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 MQ: [id number] Contrast: 20 mL Dotarem IV COMPARISON: Multiple prior brain MRIs, most recently 11/16/2024 RESULT: Acute Change: There is no evidence of restricted diffusion to suggest an acute infarct. Hemorrhage/ Mass Lesion/ Mass Effect: Changes of left frontal/temporal mass resection with associated hemosiderin deposition, similar to previous. 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 The extra-axial hematoma overlying the left frontal lobe has also completely resolved. 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 No new intracranial hemorrhage or extra-axial collection. Dural thickening and enhancement on the left is mildly decreased from previous. The enhancing nodule at the medial margin resection cavity measures 0.9 x 1.3 cm (series 14, image 48, previously measuring 0.7 x 0.9 cm on 11/16/2024 and 0.6 x 0.7 cm on 10/12/2024. A 1.2 x 1.3 similar enhancing nodule medially (image 47) measured 1.2 x 1.2 cm and 0.8 x 1.0 cm respectively. There is also increased linear enhancement in the adjacent brain parenchyma. T2 hyperintense signal in the medial left temporal lobe and insula is increased from previous. No new enhancing lesion is identified. No associated diffusion signal abnormality. There is a residual dural enhancing nodule along the left falx which measures approximately 0.3 x 0.8 cm and corresponds to the heterogeneous enhancing 0.7 x 1.5 cm nodule on the prior exam. The extra-axial nodule overlying the left cerebral convexity has resolved. Partial effacement of the left temporal horn and partial effacement of the basal cisterns on the left is minimally worsened from previous. No midline shift or herniation. Evaluation of perfusion imaging is limited by the proximity to the [place] of [place], however there is probable elevated cerebral blood flow and blood volume in the area of concern. Chronic Change: Additional nonspecific T2 hyperintense signal in the white matter is similar to previous. Parenchyma: Generalized volume loss, similar to previous The brain parenchyma is otherwise within normal limits of signal intensity and morphology. Ventricles: Ventriculomegaly corresponds to the degree of parenchymal volume loss. Skull Base: Hypothalamic and pituitary region are unremarkable. Degenerative changes at the atlantoaxial joint with associated soft tissue thickening, no spinal canal narrowing. No significant marrow replacement process. Vasculature: Major intracranial arterial structures and dural venous sinuses show typical flow voids. Other: Scattered paranasal sinus mucosal thickening. The mastoid air cells are clear. The orbits and extracranial soft tissues are unremarkable. Impression: IMPRESSION: Evolving post therapy changes with progressive nodular enhancement and T2 signal abnormality in the medial left temporal lobe and insula, suspicious for progressive malignancy. Call Worker Person: PSCB Transcribe Date/Time: Jan 17 2025 12:03P Dictated by : DAWSON DE LEON MD This examination was interpreted and the report reviewed and electronically signed by: DAWSON DE LEON MD on Jan 17 2025 12:22PM EST Assessment AND Plan 1. Glioblastoma (HCC) (C71.9) 2. GBM (glioblastoma multiforme) (HCC) (C71.9) - Recent MRI on January 17 compared to November shows evolving post-therapy changes with progressive nodular enhancement and T2 signal, suspicious for progressive malignancy per radiologist Dr. Ashok De Leon. - Areas of concern have been previously radiated, likely causing inflammation rather than tumor progression. Hence I think is reasonable to continue with current treatment, and assess in 6 weeks with an MRI. - I will discuss findings with patient's radiation oncologist, Dr. Joyce, and Dr. Evans his neurosurgeon to get their input, but the above is what I think is a good plan. - Prognosis discussed with family; average survival for condition is 12-18 months, but patient is currently stable and responding to treatment, in the context that his initial diagnosis dates back to March 2023. -MRI brain w and w/o and perfusion in 6 weeks time. -Return clinic visit in person, 1-2 days after MR. 3. Seizures (HCC) (R56.9) 4. Seizure disorder (HCC) (G40.909) - Seizures well-controlled on lacosamide 150 mg BID; no recent seizure activity reported. - Continue current anticonvulsant therapy. 5. Psoriasis (L40.9) - Chronic scaly, flaky rashes reported on scalp, chest, arms, and legs. - Advised patient to document and upload photos of rashes to [facility] for further evaluation. 6. Encounter for antineoplastic chemotherapy (Z51.11) -CBC 01/19/2025 adequate for chemo. - Lomustine 90mg/m2 with 5th cycle scheduled to begin on 01/22/2025. - Ordered CBC and CMP to monitor treatment effects; patient to complete lab work before leaving. - Continue Lomustine therapy as planned. I am seeing the patient in collaboration with Esme Cook RN [facility] Banking Supervisor In the end the patient and family verbalized understanding of the above, they had questions which I believe I answered to their satisfaction and agreed with these recommendations and had no further questions or concerns for the moment, but I encourage them to call the [facility] with any questions or concerns. I spent a total of 40 minutes on the date of the service which included preparing to see the patient, at least 50% of dqua-op-lxmp patient care, completing clinical documentation, obtaining and/or reviewing separately obtained history, performing a medically appropriate examination, counseling and educating the patient/family/caregiver, ordering medications, tests, or procedures, communicating with other HCPs (not separately reported), independently interpreting results (not separately reported), communicating results to the patient/family/caregiver and care coordination (not separately reported). High MDM. Patricia Enriquez MDB[facility] CC Patient Care Team: -Jose Evans MD, Neurosurgery, [facility], [facility], [facility] Cyndee Joyce MD, PhD, Radiation Oncology, [facility], [facility], [facility]. Jaclyn Guillory LSW as Pull Worker (Hematology/Oncology) Soraida Simmons RN (Hospice AND Palliative Medicine) Willy Lion MD (Hospice AND Palliative Medicine) Rupa Khoury APRN.EDSON (Hospice AND Palliative Medicine) Daniel Juárez PSYD, Psychology, [facility] ADDENDUM 01/24/2025: I reviewed the patients case/images with his oncology team, including Indu Blanchard his Radiation Oncologist, and with Dr. Evans, his neurosurgeon, and they agree with the approach to continue on the current management, that is lomustine,a and continue imaging surveillance. No need for any additional intervention at this juncture. Patricia Enriquez MD PROGRESS Observed: 01/19/2025 11:00 AM Status: COMPLETED Source: [facility] HNO ID: [id number] Author: TONA COBOS RN Service: ? Author Type: Registered Nurse Type: Progress Notes Filed: 01/20/2025 15:23 Note Text: Glioblastoma follow up MRi brain 01/17/25 L temporal mass resection 03/19/2023- Not hypermethylated L temporal mass re-do resection 05/27/24 [place] 04/20-05/29/[address] [facility] [facility] progression in February [address] Evans 09/23/24 Lomustine 90mg/m2 C#1 02/25-04/08/24 Lomustine 90mg/m2 C #2 09/05-10/17/24 Lomustine 90mg/m2 C#3 10/21-12/02/24 Lomustine 90mg/m2 C#4 12/11/24-01/22/25 -Needs Labs N-Plate x 1 injection 10/18/23-PLT 76K CNOV Observed: 01/19/2025 11:00 AM Status: COMPLETED Source: [facility] Office Visit ([facility]) ANGEL KEATING ([id number]) 1970 M Date Time Provider Department 01/19/25 11:00 AM PATRICIA ENRIQUEZ [facility] During your visit today, we recorded the following information about you: Temperature Pulse Respiration Blood pressure 98.9 degrees 81/minute 18/minute 133/85 Weight 100.5 kg Karla Pedroza MA 01/20/2025 3:23 PM Signed Additional intake questions: Has the patient had fever, nausea, vomiting, diarrhea, constipation, fatigue for > 1 week? No Does the patient have a decreased appetite? No Does patient want to see a Outside Solar Sales Consultant? No (yes to any of above refer patient to schedulers for dietitian appointment) ) Does patient have any new or increased numbness or tingling of extremities? No Is patient interested in fertility information? No Does patient need any prescription refills? No Does patient have an advanced directive in place? Yes, copies are in Epic Electronically Signed By: SALEEM Zepeda Susan, VAZQUEZ 01/20/2025 3:23 PM Signed Glioblastoma follow up MRi brain 01/17/25 L temporal mass resection 03/19/2023- Not hypermethylated L temporal mass re-do resection 05/27/24 Stupp 04/20-05/29/[address] [facility] until progression in February [address] Evans 09/23/24 Lomustine 90mg/m2 C#1 02/25-04/08/24 Lomustine 90mg/m2 C #2 09/05-10/17/24 Lomustine 90mg/m2 C#3 10/21-12/02/24 Lomustine 90mg/m2 C#4 12/11/24-01/22/25 -Needs Labs N-Plate x 1 injection 10/18/23-PLT 76K Patricia Enriquez MD 01/24/2025 10:10 PM Addendum [facility] Follow up Clinic Visit HPI Angel Keating is a 54-year-old male with a history of glioblastoma multiforme, presenting for follow-up. He is accompanied by his family, who provide additional history. Angel was diagnosed with glioblastoma multiforme in March 2023. He has undergone Gamma Knife treatment for nodules in the temporal and frontal regions and is currently receiving lomustine, with the next cycle (cycle 5) due to start on Thursday. He has not had a seizure in a long time and has been on the same seizure medication, lacosamide 150 mg twice daily, for about 20 months. He also takes trazodone for sleep and valacyclovir prophylactically due to two outbreaks over a short period of time. He reports experiencing rashes described as red, scaly, and flaky, resembling dandruff, on his chest, sides, legs, back of his arms, neck, and head. These rashes have been present for a long time, with the last occurrence on his body a few months ago. He has been dealing with rashes on his head for the last couple of months, though they have not been as severe as in the past. He does not endorse any fluid-filled bumps. He also reports swelling and pain in his hands and legs, particularly on the left side, during episodes of rash. He experiences frequent shooting sensations described as an electrical firestorm from his knee down to his toes, which occur without a specific trigger. These sensations have improved with amitriptyline, though they still occur. He also experiences muscle cramps, particularly at night, and charley horses in his buttocks. He expresses a desire to remain functional for his daughter's wedding in 100 days and is interested in exploring additional treatment options, including a clinical trial involving a chimeric polio virus. Past Diagnostic Results: - (01/17/2025) MRI: Evolving post-therapy changes with progressive nodular enhancement and T2 signal; suspicious for progressive malignancy. - (11/2024) MRI: Comparison for January 2025 MRI. PHYSICAL EXAMINATION: - Neurological: - CNII: Visual land intact. - CNIII/CNIV/CNVI: Extraocular movements intact. - CNV: Sensation intact. - CNVII: Facial movements intact. - CNIX/CNX: Palate elevation intact. - CNXI: Shoulder shrug strength intact. - Motor: No atrophy or asymmetry noted. - Strength: - Arms: - Deltoids: Left: 5/5, Right: 5/5 - Biceps: Left: 5/5, Right: 5/5 - Triceps: Left: 5/5, Right: 5/5 - Lower Extremities: - Hip Flexors: Left: 5/5, Right: 5/5 - Hip Extensors: Left: 5/5, Right: 5/5 - Knee Flexion: Left: 5/5, Right: 5/5 - Knee Extension: Left: 5/5, Right: 5/5 - Ankle Dorsiflexion: Left: 5/5, Right: 5/5 - Ankle Plantarflexion: Left: 5/5, Right: 5/5 - Reflexes: - Arms: - Triceps: Left: 2+, Right: 2+ - Biceps: Left: 2+, Right: 2+ - Brachioradialis: Left: 2+, Right: 2+ - Lower Extremities: - Patella: Left: 2+, Right: 2+ - Achilles: Left: 2+, Right: 2+ - Babinski: Left: Downgoing, Right: Downgoing - Sensation: Intact to light touch and pinprick. - Coordination: Wjpcla-gs-fags and hajc-er-ibwu testing intact. - Gait: Normal. Imaging: MRI Report MRI BRAIN WO/W IVCON Exam End: 01/17/2025 11:04 AM (Final result) Narrative: * * *Final Report* * * DATE OF EXAM: Jan 17 2025 10:57AM [facility] 0295 - MRI BRAIN WO/W IVCON / PROCEDURE REASON: Glioblastoma (HCC) * * * * Physician Interpretation * * * * EXAMINATION: MRI BRAIN WO/W IVCON CLINICAL HISTORY: Glioblastoma; IDH wild-type MGM T11 methylated glioblastoma status post resection, chemoradiation, and adjuvant chemotherapy with subsequent recurrence, now status post resection, chemotherapy, and gamma knife radiosurgery TECHNIQUE: Routine brain MRI protocol without and with contrast including diffusion and perfusion images. MQ: MRBWOW_2 Contrast: 20 mL Dotarem IV COMPARISON: Multiple prior brain MRIs, most recently 11/16/2024 RESULT: Acute Change: There is no evidence of restricted diffusion to suggest an acute infarct. Hemorrhage/ Mass Lesion/ Mass Effect: Changes of left frontal/temporal mass resection with associated hemosiderin deposition, similar to previous. 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 The extra-axial hematoma overlying the left frontal lobe has also completely resolved. 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 No new intracranial hemorrhage or extra-axial collection. Dural thickening and enhancement on the left is mildly decreased from previous. The enhancing nodule at the medial margin resection cavity measures 0.9 x 1.3 cm (series 14, image 48, previously measuring 0.7 x 0.9 cm on 11/16/2024 and 0.6 x 0.7 cm on 10/12/2024. A 1.2 x 1.3 similar enhancing nodule medially (image 47) measured 1.2 x 1.2 cm and 0.8 x 1.0 cm respectively. There is also increased linear enhancement in the adjacent brain parenchyma. T2 hyperintense signal in the medial left temporal lobe and insula is increased from previous. No new enhancing lesion is identified. No associated diffusion signal abnormality. There is a residual dural enhancing nodule along the left falx which measures approximately 0.3 x 0.8 cm and corresponds to the heterogeneous enhancing 0.7 x 1.5 cm nodule on the prior exam. The extra-axial nodule overlying the left cerebral convexity has resolved. Partial effacement of the left temporal horn and partial effacement of the basal cisterns on the left is minimally worsened from previous. No midline shift or herniation. Evaluation of perfusion imaging is limited by the proximity to the [place], however there is probable elevated cerebral blood flow and blood volume in the area of concern. Chronic Change: Additional nonspecific T2 hyperintense signal in the white matter is similar to previous. Parenchyma: Generalized volume loss, similar to previous The brain parenchyma is otherwise within normal limits of signal intensity and morphology. Ventricles: Ventriculomegaly corresponds to the degree of parenchymal volume loss. Skull Base: Hypothalamic and pituitary region are unremarkable. Degenerative changes at the atlantoaxial joint with associated soft tissue thickening, no spinal canal narrowing. No significant marrow replacement process. Vasculature: Major intracranial arterial structures and dural venous sinuses show typical flow voids. Other: Scattered paranasal sinus mucosal thickening. The mastoid air cells are clear. The orbits and extracranial soft tissues are unremarkable. Impression: IMPRESSION: Evolving post therapy changes with progressive nodular enhancement and T2 signal abnormality in the medial left temporal lobe and insula, suspicious for progressive malignancy. [facility] Transcribe Date/Time: Jan 17 2025 12:03P Dictated by : DAWSON DE LEON MD This examination was interpreted and the report reviewed and electronically signed by: DAWSON DE LEON MD on Jan 17 2025 12:22PM EST Assessment AND Plan 1. Glioblastoma (HCC) (C71.9) 2. GBM (glioblastoma multiforme) (HCC) (C71.9) - Recent MRI on January 17 compared to November shows evolving post-therapy changes with progressive nodular enhancement and T2 signal, suspicious for progressive malignancy per radiologist Dr. Ashok De Leon. - Areas of concern have been previously radiated, likely causing inflammation rather than tumor progression. Hence I think is reasonable to continue with current treatment, and assess in 6 weeks with an MRI. - I will discuss findings with patient's radiation oncologist, Dr. Joyce, and Dr. Evans his neurosurgeon to get their input, but the above is what I think is a good plan. - Prognosis discussed with family; average survival for condition is 12-18 months, but patient is currently stable and responding to treatment, in the context that his initial diagnosis dates back to March 2023. -MRI brain w and w/o and perfusion in 6 weeks time. -Return clinic visit in person, 1-2 days after MR. 3. Seizures (HCC) (R56.9) 4. Seizure disorder (HCC) (G40.909) - Seizures well-controlled on lacosamide 150 mg BID; no recent seizure activity reported. - Continue current anticonvulsant therapy. 5. Psoriasis (L40.9) - Chronic scaly, flaky rashes reported on scalp, chest, arms, and legs. - Advised patient to document and upload photos of rashes to [facility] for further evaluation. 6. Encounter for antineoplastic chemotherapy (Z51.11) -CBC 01/19/2025 adequate for chemo. - Lomustine 90mg/m2 with 5th cycle scheduled to begin on 01/22/2025. - Ordered CBC and CMP to monitor treatment effects; patient to complete lab work before leaving. - Continue Lomustine therapy as planned. I am seeing the patient in collaboration with Esme Cook RN [facility] Banking Supervisor In the end the patient and family verbalized understanding of the above, they had questions which I believe I answered to their satisfaction and agreed with these recommendations and had no further questions or concerns for the moment, but I encourage them to call the [facility] with any questions or concerns. I spent a total of 40 minutes on the date of the service which included preparing to see the patient, at least 50% of [id number] patient care, completing clinical documentation, obtaining and/or reviewing separately obtained history, performing a medically appropriate examination, counseling and educating the patient/family/caregiver, ordering medications, tests, or procedures, communicating with other HCPs (not separately reported), independently interpreting results (not separately reported), communicating results to the patient/family/caregiver and care coordination (not separately reported). High MDM. Patricia Enriquez MD [facility] Patient Care Team: -Jose Evans MD, Neurosurgery, [facility], [facility] Cyndee Joyce MD, PhD, Radiation Oncology, [facility], [facility]. Jaclyn Guillory LSW as Pull Worker (Hematology/Oncology) Soraida Simmons, VAZQUEZ (Hospice AND Palliative Medicine) Willy Lion MD (Hospice AND Palliative Medicine) Rupa Khoury APRN.EDSON (Hospice AND Palliative Medicine) Daniel Juárez PSYD, Psychology, [facility] ADDENDUM 01/24/2025: I reviewed the patients case/images with his oncology team, including Indu Blanchard his Radiation Oncologist, and with Dr. Evans, his neurosurgeon, and they agree with the approach to continue on the current management, that is lomustine,a and continue imaging surveillance. No need for any additional intervention at this juncture. Patricia Enriquez MD Referring Provider: PATRICIA ENRIQUEZ [[id number]] Allergies As of Date: 01/19/2025 (No Known Allergies) Date Reviewed: 01/19/2025 Reviewed by: Karla Pedroza MA - Fully Assessed Reason for Visit: Established Patient [175] Primary Visit Diagnosis:Glioblastoma (HCC) [C71.9] Other Visit Diagnoses:Seizures (HCC) [R56.9] Seizure disorder (HCC) [G40.909] Psoriasis [L40.9] Encounter for antineoplastic chemotherapy [Z51.11] GBM (glioblastoma multiforme) (HCC) [C71.9] Order(s):COMPREHENSIVE METABOLIC PANEL [SQCMP] Order #: [id number] FUTURE Prescriptions as of 01/24/2025 - traZODone (DESYREL) 50 mg tablet TAKE 1 TABLET BY MOUTH EVERYDAY AT BEDTIME - iv contrast (will be provided with radiology test) MRI Brain Inject, intravenously, once for 1 dose.No IV access, insert saline lock prior to beginning of sedation, infusion, injection of imaging exam.Discontinue saline lock post exam. If Pt. has a central line or IVAD, may access for administration according to line specific nursing protocol.Once exam is complete flush line and de-access according to line specific nursing protocol in the MR contrast administration guidelines link - lomustine (GLEOSTINE) 100 mg capsule Take one 8mg Zofran on an empty stomach in the evening. Wait ONE hour. Take TWO 100mg capsule(s) Lomustine by mouth for a total dose of 200mg. Take one 8 mg Zofran twenty-four hours later. Take on Day 1 of each 42 day cycle. - dexAMETHasone (DECADRON) 2 mg tablet Take 1 tablet by mouth daily with breakfast. - pantoprazole DR (PROTONIX) 40 mg tablet Take 1 tablet by mouth once daily. - lacosamide (VIMPAT) 150 mg tab Take 1 tablet by mouth two times a day. - ondansetron (ZOFRAN) 8 mg tablet Take one tablet by mouth on an empty stomach in the evening one hour prior to chemo. Then take one tablet 24 hours after chemo. May repeat dose every 8-12 hours if needed to prevent nausea - midazolam (NAYZILAM) 5 mg/spray (0.1 mL) nasal spray Use 1 [place] in the nose as needed for up to 10 days. May repeat dose in alternate nostril after 10 minutes based on response and tolerability. - sennosides (SENNA ORAL) Take by mouth. - acetaminophen (TYLENOL) 325 mg tablet 2 tablets by ORAL/FEEDING TUBE route every 4 hours as needed for pain. Problem List As Of Date 01/19/2025 Noted Resolved Chest pain [R07.9] 04/25/2010 05/26/2024 Brain mass [G93.89] 03/17/2023 11/17/2023 Obesity, Class I, BMI 30-34.9 [E66.811] 03/17/2023 Brain compression (HCC) [G93.5] 03/20/2023 S/P brain surgery [Z98.890] 03/20/2023 11/17/2023 At risk for seizures [Z91.89] 03/20/2023 Cerebral edema (HCC) [G93.6] 03/20/2023 GBM (glioblastoma multiforme) (HCC) [C71.9] 04/07/2023 Syncope, unspecified syncope type [R55] 11/01/2023 11/03/2023 Examination of participant in clinical trial [Z*11/05/2023 11/17/2023 Forehead pain [R51.9] 11/05/2023 PONV (postoperative nausea and vomiting) [R11.2*05/26/2024 Acute post-operative pain [G89.18] 05/29/2024 Thrombocytopenia [D69.6] 10/13/2024 Encounter Status:Closed by PATRICIA ENRIQUEZ on 01/20/25 PROGRESS Observed: 01/19/2025 10:52 AM Status: COMPLETED Source: [facility] HNO ID: [id number] Author: KARLA PEDROZA MA Service: ? Author Type: Camp Housekeeper Type: Progress Notes Filed: 01/20/2025 15:23 Note Text: Additional intake questions: Has the patient had fever, nausea, vomiting, diarrhea, constipation, fatigue for > 1 week? No Does the patient have a decreased appetite? No Does patient want to see a Outside Solar Sales Consultant? No (yes to any of above refer patient to schedulers for dietitian appointment) ) Does patient have any new or increased numbness or tingling of extremities? No Is patient interested in fertility information? No Does patient need any prescription refills? No Does patient have an advanced directive in place? Yes, copies are in Epic Electronically Signed By: Karla Pedroza MA MRI BRAIN WO/W IVCON Observed: 10:57 AM Status: F Source: [facility] * * *Final Report* * * DATE OF EXAM: Jan 17 2025 10:57AM [facility] 0295 - MRI BRAIN WO/W IVCON / PROCEDURE REASON: Glioblastoma (HCC) * * * * Physician Interpretation * * * * EXAMINATION: MRI BRAIN WO/W IVCON CLINICAL HISTORY: Glioblastoma; IDH wild-type MGM T11 methylated glioblastoma status post resection, chemoradiation, and adjuvant chemotherapy with subsequent recurrence, now status post resection, chemotherapy, and gamma knife radiosurgery TECHNIQUE: Routine brain MRI protocol without and with contrast including diffusion and perfusion images. MQ: MRBWOW_2 Contrast: 20 mL Dotarem IV COMPARISON: Multiple prior brain MRIs, most recently 11/16/2024 RESULT: Acute Change: There is no evidence of restricted diffusion to suggest an acute infarct. Hemorrhage/ Mass Lesion/ Mass Effect: Changes of left frontal/temporal mass resection with associated hemosiderin deposition, similar to previous. 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 The extra-axial hematoma overlying the left frontal lobe has also completely resolved. 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 No new intracranial hemorrhage or extra-axial collection. Dural thickening and enhancement on the left is mildly decreased from previous. The enhancing nodule at the medial margin resection cavity measures 0.9 x 1.3 cm (series 14, image 48, previously measuring 0.7 x 0.9 cm on 11/16/2024 and 0.6 x 0.7 cm on 10/12/2024. A 1.2 x 1.3 similar enhancing nodule medially (image 47) measured 1.2 x 1.2 cm and 0.8 x 1.0 cm respectively. There is also increased linear enhancement in the adjacent brain parenchyma. T2 hyperintense signal in the medial left temporal lobe and insula is increased from previous. No new enhancing lesion is identified. No associated diffusion signal abnormality. There is a residual dural enhancing nodule along the left falx which measures approximately 0.3 x 0.8 cm and corresponds to the heterogeneous enhancing 0.7 x 1.5 cm nodule on the prior exam. The extra-axial nodule overlying the left cerebral convexity has resolved. Partial effacement of the left temporal horn and partial effacement of the basal cisterns on the left is minimally worsened from previous. No midline shift or herniation. Evaluation of perfusion imaging is limited by the proximity to the [place], however there is probable elevated cerebral blood flow and blood volume in the area of concern. Chronic Change: Additional nonspecific T2 hyperintense signal in the white matter is similar to previous. Parenchyma: Generalized volume loss, similar to previous The brain parenchyma is otherwise within normal limits of signal intensity and morphology. Ventricles: Ventriculomegaly corresponds to the degree of parenchymal volume loss. Skull Base: Hypothalamic and pituitary region are unremarkable. Degenerative changes at the atlantoaxial joint with associated soft tissue thickening, no spinal canal narrowing. No significant marrow replacement process. Vasculature: Major intracranial arterial structures and dural venous sinuses show typical flow voids. Other: Scattered paranasal sinus mucosal thickening. The mastoid air cells are clear. The orbits and extracranial soft tissues are unremarkable. IMPRESSION: Evolving post therapy changes with progressive nodular enhancement and T2 signal abnormality in the medial left temporal lobe and insula, suspicious for progressive malignancy. [facility] Transcribe Date/Time: Jan 17 2025 12:03P Dictated by : DAWSON DE LEON MD This examination was interpreted and the report reviewed and electronically signed by: DAWSON DE LEON MD on Jan 17 2025 12:22PM EST [id number] PROGRESS Observed: 01/17/2025 10:00 AM Status: COMPLETED Source: [facility] HNO ID: [id number] Author: YINA WESTFALL RT(R) Service: ? Author Type: Technologist Type: Progress Notes Filed: 01/17/2025 10:46 Note Text: Radiology Service Progress Note PATIENT NAME: Angel Keating DATE OF SERVICE: January 17, 2025 TIME: 10:14 AM PATIENT IDENTITY VERIFICATION COMPLETED USING TWO (2) IDENTIFIERS: Name and Date of confirmed by patient verbally. FALL SCREENING: Has the patient had 2 falls in the last year or 1 fall with injury or currently using an Ambulatory Assistive Device (Walker, Cane, Wheelchair, Crutches, etc.)? No PATIENT GENDER DATA: Assigned male at PATIENT RELEVANT IMPLANT DATA REVIEWED: Yes PATIENT PRESENTS WITH AN IMPLANTABLE OR ATTACHED PLATE FINISHER: No RADIOLOGY DEPARTMENT: MR; Exam(s) Completed: Head: Routine Brain with Perfusion. Lavender Administered: No PERIPHERAL IV DATA: Peripheral IV started RT AC 20g Angio SIGNED BY: Corky Baires, RT(R) January 17, 2025 10:15 AM PROGRESS Observed: 12/12/2024 11:39 AM Status: COMPLETED Source: [facility] HNO ID: [id number] Author: ESME COOK, VAZQUEZ Service: ? Author Type: Registered Nurse Type: Progress Notes Filed: 12/12/2024 11:41 Note Text: Labs drawn 11/29/24 and results reviewed by Dr.Torres morales to proceed with cycle #4 Medication: Lomustine 90mg/m2 x BSA 2.21 = 200mg. Take 200 mg x 1 dose every 6 weeks. Cycle Duration: 12/11/24-01/22/25 Labs week 5- 01/16 Labs week 6- 01/23 Cycle #4 should begin 12/03/24 PLT: 173 ANC: 8.56 ALK Phos: 87 AST: 11 ALT: 6 Esme Cook RN, BSN Banking Supervisor Vaishali Todd [facility] CNPN Observed: 12/05/2024 12:00 AM Status: COMPLETED Source: [facility] VAL KEATINGLIS Arango ([id number]) 1970 M Date Time Provider Department 12/05/24 PATRICIA ENRIQUEZ During your visit today, we recorded the following information about you: Tona Cobos, RN 12/05/2024 2:33 PM Signed Scheduling Request - Established Patient Time Frame: week January 16 Orders: MRI brain w/wo contrast Provider: Dr Fraire within 1-2 days of scan Visit type: In person Diagnosis: Glioblastoma follow up Catrachita Castelan 12/12/2024 4:18 PM Signed Done Allergies As of Date: 12/05/2024 (No Known Allergies) Date Reviewed: 12/01/2024 Reviewed by: Karla Pedroza MA - Fully Assessed Reason for Visit: JUANCARLOS week of 01/16/25 [Other] Prescriptions as of 12/12/2024 - lomustine (GLEOSTINE) 100 mg capsule Take one 8mg Zofran on an empty stomach in the evening. Wait ONE hour. Take TWO 100mg capsule(s) Lomustine by mouth for a total dose of 200mg. Take one 8 mg Zofran twenty-four hours later. Take on Day 1 of each 42 day cycle. - dexAMETHasone (DECADRON) 2 mg tablet Take 1 tablet by mouth daily with breakfast. - pantoprazole DR (PROTONIX) 40 mg tablet Take 1 tablet by mouth once daily. - valACYclovir (VALTREX) 500 mg tablet Take 1 tablet by mouth once daily. - lacosamide (VIMPAT) 150 mg tab Take 1 tablet by mouth two times a day. - ondansetron (ZOFRAN) 8 mg tablet Take one tablet by mouth on an empty stomach in the evening one hour prior to chemo. Then take one tablet 24 hours after chemo. May repeat dose every 8-12 hours if needed to prevent nausea - midazolam (NAYZILAM) 5 mg/spray (0.1 mL) nasal spray Use 1 [place] in the nose as needed for up to 10 days. May repeat dose in alternate nostril after 10 minutes based on response and tolerability. - sennosides (SENNA ORAL) Take by mouth. - acetaminophen (TYLENOL) 325 mg tablet 2 tablets by ORAL/FEEDING TUBE route every 4 hours as needed for pain. Problem List As Of Date 12/05/2024 Noted Resolved Chest pain [R07.9] 04/25/2010 05/26/2024 Brain mass [G93.89] 03/17/2023 11/17/2023 Obesity, Class I, BMI 30-34.9 [E66.811] 03/17/2023 Brain compression (HCC) [G93.5] 03/20/2023 S/P brain surgery [Z98.890] 03/20/2023 11/17/2023 At risk for seizures [Z91.89] 03/20/2023 Cerebral edema (HCC) [G93.6] 03/20/2023 GBM (glioblastoma multiforme) (HCC) [C71.9] 04/07/2023 Syncope, unspecified syncope type [R55] 11/01/2023 11/03/2023 Examination of participant in clinical trial [Z*11/05/2023 11/17/2023 Forehead pain [R51.9] 11/05/2023 PONV (postoperative nausea and vomiting) [R11.2*05/26/2024 Acute post-operative pain [G89.18] 05/29/2024 Thrombocytopenia [D69.6] 10/13/2024 Encounter Status:Closed by CATRACHITA CASTELAN on 12/12/24 PROGRESS Observed: 12/01/2024 1:31 PM Status: COMPLETED Source: [facility] HNO ID: [id number] Author: PATRICIA ENRIQUEZ MD Service: ? Author Type: Physician Type: Progress Notes Filed: 12/02/2024 22:28 Note Text: [facility] Follow up Clinic visit B BTC Team: -Jose Evans MD, Neurosurgery -SAV Rodriguez, Radiation Oncology -Patricia Enriquez MD, Neuro-Oncology DIAGNOSIS: MGMT unmethylated Glioblastoma. 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 He initially presented with anxiety-attack like episodes going back to January 2023 as well as a fall, without loss of consciousness but +trauma to head around 02/27/2023. On 03/16/2023, he presented to [facility] ED with word finding difficulty, report of one-time fever of 101 in February, anxiety, increased thirst and urination and was found to have a L temporal mass with midline subfalcine shift concerning for high grade glioma. He was afebrile with normal glucose level and electrolytes. He underwent gross total resection by Dr. Evans on 03/19/2023, revealing an MGMT unmethylated glioblastoma, WHO Grade 4. He was discharged on keppra 750mg BID and dexamethasone taper. He established care with Dr. Enriquez and given paroxysmal episodes of anxiety, he was concerned about temporal lobe epilepsy and advised lifelong AED to reduce seizure risk. The patient was exhibiting some fatigue and dullness, so a cross taper from keppra to vimpat, with goal of vimpat 150mg BID. The patient expressed interest in clinical trials and enrolled onto [facility] AGILE. He was randomized to the [id number] arm (cyclic peptide modulating tumor microenvironment). TREATMENT HISTORY Gross total resection [03/19/2023] [facility] Dr. Evans MGMT unmethylated Glioblastoma. L temporal GCAR AGILE, randomized to [id number] IV twice weekly arm + Standard concurrent chemotherapy and radiation (04/20- 05/29/2023) [facility] Dr. Joyce and Dr. Enriquez Adjuvant temozolomide PO D1-5 q 28 days C1 07/01/23, will start 07/03 150mg/m2 C2 07/27/23 C3 08/31/23 C4 09/21/23 C5 10/26/23 C6 11/23/23 C7 12/28/23 STOP ADJ TMZ as the clinical; trial calls for up to 6 cycles. For some reason the patient had an extra cycle of Adj TMZ. Adjuvant [id number] during Maintenance: Cycle 7 Week 1 - infusions on 12/14/2023 (D1) and 12/17/2023 (D4) Cycle 7 Week 2 - infusions on 12/21/2023 (D8) and 12/24/2023 (D11) Cycle 7 Week 3 - infusions on 12/28/2023 (D15) and 12/31/2023 (D18) Cycle 7 Week 4 - infusions on 01/05/2024 (D22) and 01/08/2024 (D25) Cycle 8 Week 5 - infusions on 01/11/2024 and 01/14/2024 02/08/2024: MRI shows progression 02/08/24 BTB Referrals to se Dr. Evans for possible surgery. If surgery offered, he can be enrolled in CASE 3322 clinical trial with methimazole + chemo. 02/18/24: Dr Evans recommended NO surgery. 02/26/24 Lomustine 90mg/m2 C#1 02/25-04/08/24 04/12/24 Tumor progression, increased CBV 04/14/2024 BTB Referrals to se Dr. Evans for possible surgery. The patient is also eligible, for CASE 3322 clinical trial with methimazole + chemo. 04/28/2024 Jose Evans MD since the patient, and recommended surgery. 04/28/2024 clinical trials team, saw the patient, the patient is eligible, for for CASE 3322 clinical trial with methimazole + chemo. Patient signed consent. Treatment plan: Pre-operative treatment Phase -Methimazole - Pre-Op period: 05/24/2024 to 05/27/2024 (last dose is DAY of surgery) -Dose level 2 (25 mg daily) Surgical resection 05/27/[address] 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 C1D1 (10-28 days after surgery) -Scheduled for 06/16/2024 (20 days post op) -Methimazole - Post-Op period: 05/27/2024- TBD -Dose level 2 (25 mg judy C1D1 lomustine 110 mg/m2 - 07/28/24 - NOTE DATE ENTERED IN ERROR - PATIENT DID NOT TAKE CHEMO ON 08/07/2024 C2D1 lomustine -- planned for 09/07/24 08/22/2024 Brain MR - new enhancing nodules. 08/29/2024 BTB recommend to continue on lomustine, and SRS to enhancing nodules, which was completed. CORRECTED DATES OF CHEMO: C1D1 JUN 28, 2024 09/05/2024 NOTE: RE; DISCREPANCY ON LOMUSTINE CYCLE. The patient recalled that he had taken Lomustine cycle No 1 [after 2nd surgery (05/27/2024)] on ~mid June 2024 and that he was due for cycle No 2 for early August 2024 We reviewed the pharmacy records and indeed the patient took cycle No 1 of Lomustine on 06/28/25, and he was due for next cycle on ~Aug 12, 2024. Pharmacy note confirm that lomustine was delivered. Although per patient knowledge that he needed to start his chemo, cycle No 2 of lomustine on 1st week of Aug 2024 - however he did not started as he was instructed that the chemo was to start not until Sep 07, 2024. Hence the patient had not started his chemo. 09/05/2024: The patient brought lomustine capsules, cycle No 2, as he noted - issued on 08/05/2024 - which should have started on Aug 12, 2024. The reason for the discrepancy - likely entry data error of when he took cycle No 1 of lomustine - erroneously was entered as 07/28/2025. Lomustine 90mg/m2 C#2 09/05-10/17/24 September 19, 2024 - September 23, 2024 Dr Joyce SRS-GK: AREA TREATED: 1) Lt Temp 2) LT Ant Falx 3) Lt Sup Front 4) Lt Tent 5) Lt Temp 10/12/2024 MRI BRAIN WO/W Foci of nodular enhancement along the left temporal resection cavity are similar compared to 09/19/2024 (increased compared to 08/22/2024). Increased nonenhancing T2/FLAIR hyperintensity within the left temporal lobe compared to 08/22/2024. Lomustine 90mg/m2 C#3 10/21-12/02/24 11/16/2024 Brain MR. 1- CONTINUED GROWTH OF 2 NODULAR FOCI AT THE DEPTH OF LEFT TEMPORAL RESECTION CAVITY, DETAILED. THE LARGER SHOWS MODERATELY INCREASED CBV, SUSPICIOUS FOR PROGRESSION. 2. STABLE EXTRA-AXIAL ENHANCING LESION OVER LEFT MEDIAL FRONTAL LOBE, WITH REDUCED SIZE OF MORE LATERAL EXTRA-AXIAL LESION 3. REDUCED LEFT FRONTAL EPIDURAL HEMATOMA 4. NO NEW ACUTE PROCESS OR SUSPICIOUS ENHANCEMENT NOTE: Had MRI sooner than scheduled (11/30/2024), as the MR center called him asking if he wanted to have his MR sooner, as someone had canceled. December 01, 2024 In person visit. The patient is accompanied by mother Today visit is for clinic follow up Dizziness resolved. No issues, no seizures feels well. === Important events the patient would hope to attend: November 28 BD- YO Daughter graduates college December 10. Late Apr 29- youngest step daughter ==== Last Chemo: see above Current Steroids dose: N/A 11/17/24 No on steroids 11/17/2024 staretd on dexamethasone (dex), 2 mg a day, started empirically. Current AED Dose: lacosamide (VIMPAT) 150 mg tab Take 1 tablet by mouth two times a day. 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 Evans; path = GBM ORTHOPEDICS SURGERY HX 1996 knee surgery SHX CRANIOTOMY Left 03/19/2023 Family History: FAMILY HISTORY Problem Relation Age of Onset Diabetes Father Coronary Artery Disease Father Stroke Father Breast Cancer Mother None Sister Anesthesia Problems No Family History Social History Tobacco Use Smoking status: Former Current packs/day: 1.00 Average packs/day: 1 pack/day for 4.0 years (4.0 ttl pk-yrs) Types: Cigarettes, Cigars Smokeless tobacco: Never Vaping Use Vaping status: Never Used Substance Use Topics Alcohol use: Not Currently Comment: three beers a month - per pt [id number] Drug use: Never Allergies: Patient has no known allergies. Current Outpatient Medications Medication Sig lacosamide (VIMPAT) 150 mg tab Take 1 tablet by mouth two times a day. iv contrast (will be provided with radiology test) MRI Brain Inject, intravenously, once for 1 dose.No IV access, insert saline lock prior to beginning of sedation, infusion, injection of imaging exam.Discontinue saline lock post exam. If Pt. has a central line or IVAD, may access for administration according to line specific nursing protocol.Once exam is complete flush line and de-access according to line specific nursing protocol in the MR contrast administration guidelines link iv contrast (will be provided with radiology test) MRI Brain Inject, intravenously, once for 1 dose.No IV access, insert saline lock prior to beginning of sedation, infusion, injection of imaging exam.Discontinue saline lock post exam. If Pt. has a central line or IVAD, may access for administration according to line specific nursing protocol.Once exam is complete flush line and de-access according to line specific nursing protocol in the MR contrast administration guidelines link meclizine (ANTIVERT) 25 mg tab Take 1 tablet by mouth three times a day. valACYclovir (VALTREX) 1 gram tablet Take 1,000 mg by mouth three times a day. ondansetron (ZOFRAN) 8 mg tablet Take one hour prior to temozolomide prescription then every 8 hours as needed for nausea. temozolomide (TEMODAR) 180 mg capsule Fast for one hour after taking Zofran and then take ONE 180 mg capsule, plus ONE 140 mg and TWO 5 mg capsules to total 330 mg. Then, fast for one hour after taking. Take on days 1-5 of your 28 day cycle. Temozolomide 140 mg capsule Fast for one hour after taking Zofran and then take ONE 180 mg capsule, plus ONE 140 mg and TWO 5 mg capsules to total 330 mg. Then, fast for one hour after taking. Take on days 1-5 of your 28 day cycle. temozolomide (TEMODAR) 5 mg capsule Fast for one hour after taking Zofran and then take ONE 180 mg capsule, plus ONE 140 mg and TWO 5 mg capsules to total 330 mg. Then, fast for one hour after taking. Take on days 1-5 of your 28 day cycle. ondansetron (ZOFRAN) 8 mg tablet Take 1 tablet (8 mg) by mouth one hour before taking temozolomide dosing. Take on an empty stomach (Patient taking differently: Take 1 tablet (8 mg) by mouth one hour before taking temozolomide dosing. Take on an empty stomach) sennosides (SENNA ORAL) Take by mouth. DIETARY SUPPLEMENT,MISC COMB14 ORAL Take by mouth. Biomega 1000mg containing vitamin E and pure [employer] medical [employer], [employer] ([employer] [facility]) Neurotrophin acetaminophen (TYLENOL) 325 mg tablet 2 tablets by ORAL/FEEDING TUBE route every 4 hours as needed for pain. pantoprazole DR (PROTONIX) 20 mg tablet Take 1 tablet by mouth DAILY (6 AM). midazolam (NAYZILAM) 5 mg/spray (0.1 mL) nasal spray Use 1 [place] in the nose as needed for up to 10 days. May repeat dose in alternate nostril after 10 minutes based on response and tolerability. No current facility-administered medications for this visit. Review of systems: Constitutional: No recent fever or weight loss. Eyes: No history of glaucoma or cataracts. ENMT: No recent ear infection, nasal congestion, mouth sores or sore throat. CV: No history of chest pain, palpitations or leg swelling. Respiratory: No history of SOB, asthma or recent cough. Gastrointestinal: No history of nausea, vomiting, dysphagia or abdominal pain. Genitourinary: No history of hematuria or dysuria. Musculoskeletal: No complaint of arthritis, unstable gait or arm/leg weakness. Psychiatric: No history of hallucinations or depression or anxiety. ROS Neurological: No complaint of headache. No complaint of tinnitus. No complaint of decreased hearing. No complaint of diplopia. No complaints of decreased visual acuity. No complaint of arm/leg numbness. No problem with limb coordination. No complaint of syncope, seizures or disorientation. Objective Physical Exam: BP 131/89 Pulse 69 Temp 36.9 ?C (98.4 ?F) (Oral) Resp 18 Wt 100.5 kg (221 lb 9 oz) SpO2 98% BMI 32.19 kg/m? GENERAL EXAM: General appearance: Well appearing, alert, in no acute distress Skin: Skin color, texture, turgor normal Oropharynx: No thrush noted. Lungs: Lungs clear to auscultation. No wheezing, rhonchi, rales Heart: RRR without murmur, gallop, or rubs. No ectopy Abdomen: Normal abdominal exam, Abdomen soft, non-tender. Bowel sounds normal. Extremities: No deformities, skin discoloration, clubbing or cyanosis. Good capillary refill, no edema to BLE. Harmony's sign negative. No pain to palpation. NEUROLOGICAL EXAM: Higher integrative functions: Oriented to person, place AND time. Attention Span and Concentration: Good. Language: Accurate naming of objects. Good comprehension. Fund of Knowledge: Good. 2nd CN: Full visual land. 3rd,4th,6th CN: Pupils equal, round, react to light, full extraocular movements. 5th CN: No decrease in facial sensation 7th CN: Facial muscles symmetric and strong. 8th CN: Hears finger rub well bilaterally. 9th CN: Gag reflex not tested 10th CN: Spontaneous palate movement, full and symmetric. 11th CN: Full strength in shoulder shrug. 12th CN: Tongue protrusion full and midline. Sensation: No decrease in sensation in upper or lower limbs to touch. Musculoskeletal: Gait steady. Tandem walk normal. Romberg negative. Motor: 5/5 RUE/RLE; 5/5 LUE/LLENormal muscle tone without atrophy in all limbs. Coordination: Rapid alternating movements LUE intact; RUE intact Reflexes: 1-2+ ALL limbs. Plantar response down going. Karnofsky performance status: 70 - Cares for self, unable to carry on normal activity or to do work. ECOG performance status: 2 - Ambulatory and capable of all self-care but unable to carry out any work activities. Up and about more than 50% of waking hours. 09/08/2024 PHQ 2 and 9 Total Scores PHQ-2 Score 0 Labs: Latest Ref Rng AND Units 10/27/2024 11/11/2024 11/29/2024 CBC WBC 3.70 - 11.00 k/uL 2.54 5.95 9.66 RBC 4.20 - 6.00 m/uL 3.95 4.30 4.54 Hemoglobin 13.0 - 17.0 g/dL 13.2 14.3 15.0 Hematocrit 39.0 - 51.0 % 37.0 40.4 42.9 MCV 80.0 - 100.0 fL 93.7 94.0 94.5 MCH 26.0 - 34.0 pg 33.4 33.3 33.0 MCHC 30.5 - 36.0 g/dL 35.7 35.4 35.0 RDW-CV 11.5 - 15.0 % 14.2 14.6 13.9 Platelet Count 150 - 400 k/uL 309 190 173 MPV 9.0 - 12.7 fL 8.8 8.4 8.7 Baso% % 0.8 0.8 0.2 Abs Neut (ANC) 1.45 - 7.50 k/uL 1.63 4.24 8.56 Abs Lymph 1.00 - 4.00 k/uL 0.46 0.72 0.65 Abs Branch <0.87 k/uL 0.38 0.88 0.38 Abs Eosin <0.46 k/uL 0.03 0.03 <0.03 Abs Baso <0.11 k/uL <0.03 0.05 <0.03 NRBC /100 WBC 0.0 0.0 0.0 Latest Ref Rng AND Units 10/13/2024 10/21/2024 11/29/2024 CMP Sodium 136 - 144 mmol/L 141 138 140 Potassium 3.7 - 5.1 mmol/L 4.1 4.3 4.3 Chloride 98 - 107 mmol/L 109 105 104 CO2 22 - 30 mmol/L 23 23 23 Glucose 74 - 99 mg/dL 101 96 103 BUN 9 - 24 mg/dL 16 12 17 Creatinine 0.73 - 1.22 mg/dL 1.25 1.11 1.16 EGFR >=60 mL/min/1.73m? 68 78 74 Protein, Total 6.3 - 8.0 g/dL 6.6 6.7 7.2 Albumin 3.9 - 4.9 g/dL 3.7 3.9 4.1 Calcium 8.5 - 10.2 mg/dL 8.7 9.2 9.5 Bilirubin, Total 0.2 - 1.3 mg/dL 0.4 0.6 0.4 AST 14 - 40 U/L 12 10 11 ALT 10 - 54 U/L 12 10 6 Alkaline Phosphatase 38 - 113 U/L 87 91 87 Final Pathology: SURGICAL PATHOLOGY: [id number] Order: [id number] Collected 03/19/2023 10:24 AM Status: Edited Result - FINAL Visible to patient: Yes (not seen) Dx: Brain tumor (HCC) 0 Result Notes Component FINAL DIAGNOSIS A, B. Brain, left temporal mass, biopsy and resection: - Morphologically consistent with high grade glioma. See comment. Diagnosis Comment CARLOS stained sections reveal a hypercellular infiltrating glioma with moderate to marked nuclear pleomorphism and increased mitoses (upto 4 per 10 high per field). Pseudopalisading necrosis and microvascular proliferation are identified. Immunohistochemical stains are performed at [facility] to better classify this lesion (block B1) and show the following in neoplastic cells: IDH1 R132H: neagtive (wildtype); ATRX: retained (wildtype); BRAF V600E: negative (wildtype); p53 strong nuclear positivity in up to 40%; Ki67 proliferative index up to 25%. Addendum This addendum is rendered to report the results of the following molecular studies: Targeted Oncology Panel: The oncogenic TERT promoter alteration, c.-124C>T (also known as C228T) was detected in this specimen; MGMT promoter methylation: not hypermethylated. 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 Addendum electronically signed by Krista Snow MD on 04/03/2023 at 9:13 AM Imagin11/16/2024 Brain MR. 1- CONTINUED GROWTH OF 2 NODULAR FOCI AT THE DEPTH OF LEFT TEMPORAL RESECTION CAVITY, DETAILED. THE LARGER SHOWS MODERATELY INCREASED CBV, SUSPICIOUS FOR PROGRESSION. 2. STABLE EXTRA-AXIAL ENHANCING LESION OVER LEFT MEDIAL FRONTAL LOBE, WITH REDUCED SIZE OF MORE LATERAL EXTRA-AXIAL LESION 3. REDUCED LEFT FRONTAL EPIDURAL HEMATOMA 4. NO NEW ACUTE PROCESS OR SUSPICIOUS ENHANCEMENT NOTE: Had MRI sooner than scheduled (11/30/2024), as the MR center called him asking if he wanted to have his MR sooner, as someone had canceled. I reviewed the images with the patient and family. 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 Progressive disease ACTIVE ISSUES: 1- GBM-MGMT promoter not hyper methylated. 08/22/24 MRI progressive disease. -lomustine cycle No 4: 90 mg/M2 DAY 1/42 days cycle. -Cycle: tentative date 12/03/24. 5-Xqxfglqwzfwt-jeaxkmm nausea: -Use Zofran, prior/after chemo and as needed. 3-Imaging surveillance: -Brain w and w/o contrast and perfusion - To be done at the end of cycle No 4. 2A-Clinic visits: -In person visit, after MRI brain. 3-Bone marrow suppression from chemotherapy: periodic CBC, every 6 weeks. Also, CMP every 6 weeks. 4- Seizures: Since I saw him last, he has not had any events to suggest seizures. -On lacosamide (Vimpat): Started on 04/05/23. Dose is 150 mg twice a day. -Lacosamide blood levels, Latest Reference Range AND Units 07/14/24 09:38 Lacosamide 2.2 - 19.8 ug/mL 10.6 Based on the above levels to continue on the same dose. 5-Seizure precautions: The patient is not to drive any motorized vehicle, and not to engage in activities that could place her or others in danger if she were to have a seizure. I also discussed the use of rescue medication for breakthrough seizures, using midazolam nasal spray (NS) to use it as needed (PRN) and discussed when to use it. I discussed the potential benefits and side effects, including tiredness, fatigue, and or sleepiness and if so, the patient is not to engage in activities that require to be fully alert. I have also provided written information for the patient's review. 6-He is to follow by her PCP for general medical care/coordination of care. 7-STEROIDS Started 11/17/2024 2mg a day empirically to improve symptoms, include, appetite, fatigue. To be used short term. Will re-assess at next appointment. 12/01/2024 continue on dexamethasone 2 mg a day in view that his symptoms improved significantly. Will reassess at the next appointment whether we should start to drop the dose. I think he is benefiting from this much of a steroid, however we will try to avoid long-term use. Furthermore this may suggest that the patient has a degree of adrenal insufficiency perhaps. If he cannot go off the steroids, we will refer him to endocrinology. 8-To see PCP to define appropriate vaccinations as above. 9-Potential for thromboembolism: to watch for potential DVT/Pulmonary Embolism, and if so to go to the ED/call 911. 10-End of life issues: Adv Dir in chart. -Patient discussed, this important aspect, of his diagnosis, that is, that he acknowledges, that this condition will end his life, at young age, and relatively soon and that he has goals, for the next year or so, that is, to attend, important milestones events of his children's, which will take place, in the next year or so. Currently,02/19/24 his children's are 20 and 21 years old. He has seen Dr. Lion, from palliative medicine will also give advice regarding This. 11-psychosocial issues: Patient asked, advised on how to approach, his current diagnosis and progressive disease, with his children who are 2020. We given some advice, how it could be helpful for his children to cope with his unfortunate condition. However, we recommended for him to seek attention from psychosocial oncology, and this Could be expanded to the family. He has seen Dr. Daniel Juárez from psychology and psychiatry, as well [facility] Jaclyn Guillory. 12-Hygroma on surgical site: MRI 11/20/2024 New chronic appearing subdural hemorrhage measuring 11 mm in maximal thickness overlying the left parietal convexity with approximately 2 mm rightward midline shift. Redistribution of cystic hygroma, now measuring up to 4 mm in maximal thickness and predominantly along the left frontoparietal falx. 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 He saw Dr. Wilcox/surgical team (09/08/24) to address this today 09/08/24. Also clinically there is bulging of craniotomy site, not symptomatic. Dr. Evans recommend observation. 11/16/2024 Brain MR. 3. REDUCED LEFT FRONTAL EPIDURAL HEMATOMA 13-Fatigue after chemo - start Provigil for fatigue, improve alertness - wakefulness. I discussed potential benefits and side effects. 14-Had events of N/A X 1 - feels fatigue, and low appetite, as well dizziness, and low fluid intake, Had orthostatic BP dropped 20 points. Likely dehydration. -SEE PCP -Improve PO intake -START STEROIDS EMPIRICALLY - FOR POSSIBLE ADRENAL INSUFFICIENCY, AND TO IMPROVE APPETITE = SHORT TERM - START DEXAMETHASONE AT 2 MG A DAY. -Start pantoprazole. -No need for PJP prophylaxis just yet (dexamethasone: not on or over 3 mg /day and not over 3 weeks.). This will be re-assess in the near future. -Start on dexamethasone 2 mg a day for 2 weeks, then drop to 1 mg a day and then re-assess 2 weeks later. -Nutritional issues: start empiric thiamine 50-100 mg a dey. -I told the patient to go to the ED if his symptoms were to worsen - or develop additional symptoms, including symptoms to suggest infection, i.e., fever, chills, etc. -12/01/2024: All the symptoms resolved, she will continue on dexamethasone 2 mg a day as above noted. I am seeing the patient in collaboration with Esme Cook RN [facility] Banking Supervisor PLAN 12/01/2024: -lomustine cycle No 4: 90 mg/M2 DAY 1/ days cycle. -Cycle: tentative date 12/03/24. -MRI brain with and without contrast, and perfusion to be done, 6 weeks after initiation of cycle #4 of lomustine -Clinic follow up, after brain MRI In the end the patient and family verbalized understanding of the above, they had questions which I believe I answered to their satisfaction and agreed with these recommendations and had no further questions or concerns for the moment, but I encourage them to call the [facility] with any questions or concerns. I spent a total of 40 minutes on the date of the service which included preparing to see the patient, at least 50% of [id number] patient care, completing clinical documentation, obtaining and/or reviewing separately obtained history, performing a medically appropriate examination, counseling and educating the patient/family/caregiver, ordering medications, tests, or procedures, communicating with other HCPs (not separately reported), independently interpreting results (not separately reported), communicating results to the patient/family/caregiver and care coordination (not separately reported). High MDM. Patricia Enriquez MD [facility] Patient Care Team: -Jose Evans MD, Neurosurgery, [facility] Center, [facility], [facility] Cyndee Joyce MD, PhD, Radiation Oncology, [facility], [facility], [facility]. Jaclyn Guillory LSW as Pull Worker (Hematology/Oncology) Soraida Simmons RN (Hospice AND Palliative Medicine) Willy Lion MD (Hospice AND Palliative Medicine) Rupa Khoury APRN.CNP (Hospice AND Palliative Medicine) Daniel Juárez PSYD, Psychology, [facility] CNOV Observed: 12/01/2024 1:00 PM Status: COMPLETED Source: [facility] Office Visit (NSCAMN) ANGEL KEATING ([id number]) 1970 M Date Time Provider Department 12/01/24 1:00 PM PATRICIA ENRIQUEZ NSCAMN During your visit today, we recorded the following information about you: Temperature Pulse Respiration Blood pressure 98.4 degrees 69/minute 18/minute 131/89 Weight 100.5 kg Karla Pedroza MA 12/02/2024 10:28 PM Signed Additional intake questions: Has the patient had fever, nausea, vomiting, diarrhea, constipation, fatigue for > 1 week? No Does the patient have a decreased appetite? No Does patient want to see a Outside Solar Sales Consultant? No (yes to any of above refer patient to schedulers for dietitian appointment) ) Does patient have any new or increased numbness or tingling of extremities? No Is patient interested in fertility information? No Does patient need any prescription refills? No Does patient have an advanced directive in place? No, Patient referred to Resource Center Electronically Signed By: SALEEM Zepeda Susan, RN 12/02/2024 10:28 PM Signed Glioblastoma follow up L temporal mass resection 03/19/2023- Not hypermethylated L temporal mass re-do resection 05/27/24 Stupp 04/20-05/29/23 Enrolled in [facility] 1319 until progression in February [address] Evans 09/23/24 Lomustine 90mg/m2 C#1 02/25-04/08/24 Lomustine 90mg/m2 C #2 09/05-10/17/24 Lomustine 90mg/m2 C#3 10/21-12/02/24 Received N-Plate x 1 injection 10/18/23 (PLTS 10/13-76K, 10/21-176K) Did MRI early in cycle on 11/16- ? repeat week of January 09 Needs lomustine by 12/08- will start after daughters grad on 12/10- Lomustine has been ordered Labs 11/29/24- PTS 173K ANC 8.56 Patricia nEriquez MD 12/02/2024 10:28 PM Signed [facility] Follow up Clinic visit [facility] Team: -Jose Evans MD, Neurosurgery -SAV Rodriguez, Radiation Oncology -Patricia Enriquez MD, Neuro-Oncology DIAGNOSIS: MGMT unmethylated Glioblastoma. 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 He initially presented with anxiety-attack like episodes going back to January 2023 as well as a fall, without loss of consciousness but +trauma to head around 02/27/2023. On 03/16/2023, he presented to [facility] ED with word finding difficulty, report of one-time fever of 101 in February, anxiety, increased thirst and urination and was found to have a L temporal mass with midline subfalcine shift concerning for high grade glioma. He was afebrile with normal glucose level and electrolytes. He underwent gross total resection by Dr. Evans on 03/19/2023, revealing an MGMT unmethylated glioblastoma, WHO Grade 4. He was discharged on keppra 750mg BID and dexamethasone taper. He established care with Dr. Enriquez and given paroxysmal episodes of anxiety, he was concerned about temporal lobe epilepsy and advised lifelong AED to reduce seizure risk. The patient was exhibiting some fatigue and dullness, so a cross taper from keppra to vimpat, with goal of vimpat 150mg BID. The patient expressed interest in clinical trials and enrolled onto [facility]. He was randomized to the [id number] arm (cyclic peptide modulating tumor microenvironment). TREATMENT HISTORY Gross total resection [03/19/2023] [facility] Dr. Evans MGMT unmethylated Glioblastoma. L temporal [facility] AGILE, randomized to [id number] IV twice weekly arm + Standard concurrent chemotherapy and radiation (04/20- 05/29/2023) [facility] Dr. Joyce and Dr. Enriquez Adjuvant temozolomide PO D1-5 q 28 days C1 07/01/23, will start 07/03 150mg/m2 C2 07/27/23 C3 08/31/23 C4 09/21/23 C5 10/26/23 C6 11/23/23 C7 12/28/23 STOP ADJ TMZ as the clinical; trial calls for up to 6 cycles. For some reason the patient had an extra cycle of Adj TMZ. Adjuvant [id number] during Maintenance: Cycle 7 Week 1 - infusions on 12/14/2023 (D1) and 12/17/2023 (D4) Cycle 7 Week 2 - infusions on 12/21/2023 (D8) and 12/24/2023 (D11) Cycle 7 Week 3 - infusions on 12/28/2023 (D15) and 12/31/2023 (D18) Cycle 7 Week 4 - infusions on 01/05/2024 (D22) and 01/08/2024 (D25) Cycle 8 Week 5 - infusions on 01/11/2024 and 01/14/2024 02/08/2024: MRI shows progression 02/08/[address] [address] Evans for possible surgery. If surgery offered, he can be enrolled in CASE 3322 clinical trial with methimazole + chemo. 02/18/24: Dr Evans recommended NO surgery. 02/26/24 Lomustine 90mg/m2 C#1 02/25-04/08/24 04/12/24 Tumor progression, increased CBV 04/14/2024 BTB Referrals to se Dr. Evans for possible surgery. The patient is also eligible, for CASE 3322 clinical trial with methimazole + chemo. 04/28/2024 Jose Evans MD since the patient, and recommended surgery. 04/28/2024 clinical trials team, saw the patient, the patient is eligible, for for CASE 3322 clinical trial with methimazole + chemo. Patient signed consent. Treatment plan: Pre-operative treatment Phase -Methimazole - Pre-Op period: 05/24/2024 to 05/27/2024 (last dose is DAY of surgery) -Dose level 2 (25 mg daily) Surgical resection 05/27/[address] 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 C1D1 (10-28 days after surgery) -Scheduled for 06/16/2024 (20 days post op) -Methimazole - Post-Op period: 05/27/2024- TBD -Dose level 2 (25 mg judy C1D1 lomustine 110 mg/m2 - 07/28/24 - NOTE DATE ENTERED IN ERROR - PATIENT DID NOT TAKE CHEMO ON 08/07/2024 C2D1 lomustine -- planned for 09/07/24 08/22/2024 Brain MR - new enhancing nodules. 08/29/2024 BTB recommend to continue on lomustine, and SRS to enhancing nodules, which was completed. CORRECTED DATES OF CHEMO: C1D1 JUN 28, 2024 09/05/2024 NOTE: RE; DISCREPANCY ON LOMUSTINE CYCLE. The patient recalled that he had taken Lomustine cycle No 1 [after 2nd surgery (05/27/2024)] on ~mid June 2024 and that he was due for cycle No 2 for early August 2024 We reviewed the pharmacy records and indeed the patient took cycle No 1 of Lomustine on 06/28/25, and he was due for next cycle on ~Aug 12, 2024. Pharmacy note confirm that lomustine was delivered. Although per patient knowledge that he needed to start his chemo, cycle No 2 of lomustine on 1st week of Aug 2024 - however he did not started as he was instructed that the chemo was to start not until Sep 07, 2024. Hence the patient had not started his chemo. 09/05/2024: The patient brought lomustine capsules, cycle No 2, as he noted - issued on 08/05/2024 - which should have started on Aug 12, 2024. The reason for the discrepancy - likely entry data error of when he took cycle No 1 of lomustine - erroneously was entered as 07/28/2025. Lomustine 90mg/m2 C#2 09/05-10/17/24 September 19, 2024 - September 23, 2024 Dr Joyce SRS-GK: AREA TREATED: 1) Lt Temp 2) LT Ant Falx 3) Lt Sup Front 4) Lt Tent 5) Lt Temp 10/12/2024 MRI BRAIN WO/W Foci of nodular enhancement along the left temporal resection cavity are similar compared to 09/19/2024 (increased compared to 08/22/2024). Increased nonenhancing T2/FLAIR hyperintensity within the left temporal lobe compared to 08/22/2024. Lomustine 90mg/m2 C#3 10/21-12/02/24 11/16/2024 Brain MR. 1- CONTINUED GROWTH OF 2 NODULAR FOCI AT THE DEPTH OF LEFT TEMPORAL RESECTION CAVITY, DETAILED. THE LARGER SHOWS MODERATELY INCREASED CBV, SUSPICIOUS FOR PROGRESSION. 2. STABLE EXTRA-AXIAL ENHANCING LESION OVER LEFT MEDIAL FRONTAL LOBE, WITH REDUCED SIZE OF MORE LATERAL EXTRA-AXIAL LESION 3. REDUCED LEFT FRONTAL EPIDURAL HEMATOMA 4. NO NEW ACUTE PROCESS OR SUSPICIOUS ENHANCEMENT NOTE: Had MRI sooner than scheduled (11/30/2024), as the MR center called him asking if he wanted to have his MR sooner, as someone had canceled. December 01, 2024 In person visit. The patient is accompanied by mother Today visit is for clinic follow up Dizziness resolved. No issues, no seizures feels well. - ==== Important events the patient would hope to attend: November 28 BD-Turns 19 YO Daughter graduates college December 10. Late Apr 29- youngest step daughter - ===== Last Chemo: see above Current Steroids dose: N/A 11/17/24 No on steroids 11/17/2024 staretd on dexamethasone (dex), 2 mg a day, started empirically. Current AED Dose: lacosamide (VIMPAT) 150 mg tab Take 1 tablet by mouth two times a day. 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 Evans; path = GBM ORTHOPEDICS SURGERY HX 1996 knee surgery SHX CRANIOTOMY Left 03/19/2023 Family History: FAMILY HISTORY Problem Relation Age of Onset Diabetes Father Coronary Artery Disease Father Stroke Father Breast Cancer Mother None Sister Anesthesia Problems No Family History Social History Tobacco Use Smoking status: Former Current packs/day: 1.00 Average packs/day: 1 pack/day for 4.0 years (4.0 ttl pk-yrs) Types: Cigarettes, Cigars Smokeless tobacco: Never Vaping Use Vaping status: Never Used Substance Use Topics Alcohol use: Not Currently Comment: three beers a month - per pt [id number] Drug use: Never Allergies: Patient has no known allergies. Current Outpatient Medications Medication Sig lacosamide (VIMPAT) 150 mg tab Take 1 tablet by mouth two times a day. iv contrast (will be provided with radiology test) MRI Brain Inject, intravenously, once for 1 dose.No IV access, insert saline lock prior to beginning of sedation, infusion, injection of imaging exam.Discontinue saline lock post exam. If Pt. has a central line or IVAD, may access for administration according to line specific nursing protocol.Once exam is complete flush line and de-access according to line specific nursing protocol in the MR contrast administration guidelines link iv contrast (will be provided with radiology test) MRI Brain Inject, intravenously, once for 1 dose.No IV access, insert saline lock prior to beginning of sedation, infusion, injection of imaging exam.Discontinue saline lock post exam. If Pt. has a central line or IVAD, may access for administration according to line specific nursing protocol.Once exam is complete flush line and de-access according to line specific nursing protocol in the MR contrast administration guidelines link meclizine (ANTIVERT) 25 mg tab Take 1 tablet by mouth three times a day. valACYclovir (VALTREX) 1 gram tablet Take 1,000 mg by mouth three times a day. ondansetron (ZOFRAN) 8 mg tablet Take one hour prior to temozolomide prescription then every 8 hours as needed for nausea. temozolomide (TEMODAR) 180 mg capsule Fast for one hour after taking Zofran and then take ONE 180 mg capsule, plus ONE 140 mg and TWO 5 mg capsules to total 330 mg. Then, fast for one hour after taking. Take on days 1-5 of your 28 day cycle. Temozolomide 140 mg capsule Fast for one hour after taking Zofran and then take ONE 180 mg capsule, plus ONE 140 mg and TWO 5 mg capsules to total 330 mg. Then, fast for one hour after taking. Take on days 1-5 of your 28 day cycle. temozolomide (TEMODAR) 5 mg capsule Fast for one hour after taking Zofran and then take ONE 180 mg capsule, plus ONE 140 mg and TWO 5 mg capsules to total 330 mg. Then, fast for one hour after taking. Take on days 1-5 of your 28 day cycle. ondansetron (ZOFRAN) 8 mg tablet Take 1 tablet (8 mg) by mouth one hour before taking temozolomide dosing. Take on an empty stomach (Patient taking differently: Take 1 tablet (8 mg) by mouth one hour before taking temozolomide dosing. Take on an empty stomach) sennosides (SENNA ORAL) Take by mouth. DIETARY SUPPLEMENT,[facility] COMB14 ORAL Take by mouth. Biomega 1000mg containing vitamin E and pure anchovy medical supply, [facility] (MISCELLANEOUS MEDICAL SUPPLY [facility]) Neurotrophin acetaminophen (TYLENOL) 325 mg tablet 2 tablets by ORAL/FEEDING TUBE route every 4 hours as needed for pain. pantoprazole DR (PROTONIX) 20 mg tablet Take 1 tablet by mouth DAILY (6 AM). midazolam (NAYZILAM) 5 mg/spray (0.1 mL) nasal spray Use 1 [place] in the nose as needed for up to 10 days. May repeat dose in alternate nostril after 10 minutes based on response and tolerability. No current facility-administered medications for this visit. Review of systems: Constitutional: No recent fever or weight loss. Eyes: No history of glaucoma or cataracts. ENMT: No recent ear infection, nasal congestion, mouth sores or sore throat. CV: No history of chest pain, palpitations or leg swelling. Respiratory: No history of SOB, asthma or recent cough. Gastrointestinal: No history of nausea, vomiting, dysphagia or abdominal pain. Genitourinary: No history of hematuria or dysuria. Musculoskeletal: No complaint of arthritis, unstable gait or arm/leg weakness. Psychiatric: No history of hallucinations or depression or anxiety. ROS Neurological: No complaint of headache. No complaint of tinnitus. No complaint of decreased hearing. No complaint of diplopia. No complaints of decreased visual acuity. No complaint of arm/leg numbness. No problem with limb coordination. No complaint of syncope, seizures or disorientation. Objective Physical Exam: BP 131/89 Pulse 69 Temp 36.9 ?C (98.4 ?F) (Oral) Resp 18 Wt 100.5 kg (221 lb 9 oz) SpO2 98% BMI 32.19 kg/m? GENERAL EXAM: General appearance: Well appearing, alert, in no acute distress Skin: Skin color, texture, turgor normal Oropharynx: No thrush noted. Lungs: Lungs clear to auscultation. No wheezing, rhonchi, rales Heart: RRR without murmur, gallop, or rubs. No ectopy Abdomen: Normal abdominal exam, Abdomen soft, non-tender. Bowel sounds normal. Extremities: No deformities, skin discoloration, clubbing or cyanosis. Good capillary refill, no edema to BLE. Harmony's sign negative. No pain to palpation. NEUROLOGICAL EXAM: Higher integrative functions: Oriented to person, place AND time. Attention Span and Concentration: Good. Language: Accurate naming of objects. Good comprehension. Fund of Knowledge: Good. 2nd CN: Full visual land. 3rd,4th,6th CN: Pupils equal, round, react to light, full extraocular movements. 5th CN: No decrease in facial sensation 7th CN: Facial muscles symmetric and strong. 8th CN: Hears finger rub well bilaterally. 9th CN: Gag reflex not tested 10th CN: Spontaneous palate movement, full and symmetric. 11th CN: Full strength in shoulder shrug. 12th CN: Tongue protrusion full and midline. Sensation: No decrease in sensation in upper or lower limbs to touch. Musculoskeletal: Gait steady. Tandem walk normal. Romberg negative. Motor: 5/5 RUE/RLE; 5/5 LUE/LLENormal muscle tone without atrophy in all limbs. Coordination: Rapid alternating movements LUE intact; RUE intact Reflexes: 1-2+ ALL limbs. Plantar response down going. Karnofsky performance status: 70 - Cares for self, unable to carry on normal activity or to do work. ECOG performance status: 2 - Ambulatory and capable of all self-care but unable to carry out any work activities. Up and about more than 50% of waking hours. 09/08/2024 PHQ 2 and 9 Total Scores PHQ-2 Score 0 Labs: Latest Ref Rng AND Units 10/27/2024 11/11/2024 11/29/2024 CBC WBC 3.70 - 11.00 k/uL 2.54 5.95 9.66 RBC 4.20 - 6.00 m/uL 3.95 4.30 4.54 Hemoglobin 13.0 - 17.0 g/dL 13.2 14.3 15.0 Hematocrit 39.0 - 51.0 % 37.0 40.4 42.9 MCV 80.0 - 100.0 fL 93.7 94.0 94.5 MCH 26.0 - 34.0 pg 33.4 33.3 33.0 MCHC 30.5 - 36.0 g/dL 35.7 35.4 35.0 RDW-CV 11.5 - 15.0 % 14.2 14.6 13.9 Platelet Count 150 - 400 k/uL 309 190 173 MPV 9.0 - 12.7 fL 8.8 8.4 8.7 Baso% % 0.8 0.8 0.2 Abs Neut (ANC) 1.45 - 7.50 k/uL 1.63 4.24 8.56 Abs Lymph 1.00 - 4.00 k/uL 0.46 0.72 0.65 Abs Branch <0.87 k/uL 0.38 0.88 0.38 Abs Eosin <0.46 k/uL 0.03 0.03 <0.03 Abs Baso <0.11 k/uL <0.03 0.05 <0.03 NRBC /100 WBC 0.0 0.0 0.0 Latest Ref Rng AND Units 10/13/2024 10/21/2024 11/29/2024 CMP Sodium 136 - 144 mmol/L 141 138 140 Potassium 3.7 - 5.1 mmol/L 4.1 4.3 4.3 Chloride 98 - 107 mmol/L 109 105 104 CO2 22 - 30 mmol/L 23 23 23 Glucose 74 - 99 mg/dL 101 96 103 BUN 9 - 24 mg/dL 16 12 17 Creatinine 0.73 - 1.22 mg/dL 1.25 1.11 1.16 EGFR >=60 mL/min/1.73m? 68 78 74 Protein, Total 6.3 - 8.0 g/dL 6.6 6.7 7.2 Albumin 3.9 - 4.9 g/dL 3.7 3.9 4.1 Calcium 8.5 - 10.2 mg/dL 8.7 9.2 9.5 Bilirubin, Total 0.2 - 1.3 mg/dL 0.4 0.6 0.4 AST 14 - 40 U/L 12 10 11 ALT 10 - 54 U/L 12 10 6 Alkaline Phosphatase 38 - 113 U/L 87 91 87 Final Pathology: SURGICAL PATHOLOGY: [id number] Order: [id number] Collected 03/19/2023 10:24 AM Status: Edited Result - FINAL Visible to patient: Yes (not seen) Dx: Brain tumor (HCC) 0 Result Notes Component FINAL DIAGNOSIS A, B. Brain, left temporal mass, biopsy and resection: - Morphologically consistent with high grade glioma. See comment. Diagnosis Comment CARLOS stained sections reveal a hypercellular infiltrating glioma with moderate to marked nuclear pleomorphism and increased mitoses (upto 4 per 10 high per field). Pseudopalisading necrosis and microvascular proliferation are identified. Immunohistochemical stains are performed at [facility] to better classify this lesion (block B1) and show the following in neoplastic cells: IDH1 R132H: neagtive (wildtype); ATRX: retained (wildtype); BRAF V600E: negative (wildtype); p53 strong nuclear positivity in up to 40%; Ki67 proliferative index up to 25%. Addendum This addendum is rendered to report the results of the following molecular studies: Targeted Oncology Panel: The oncogenic TERT promoter alteration, c.-124C>T (also known as C228T) was detected in this specimen; MGMT promoter methylation: not hypermethylated. 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 Addendum electronically signed by Krista Snow MD on 04/03/2023 at 9:13 AM Imagin11/16/2024 Brain MR. 1- CONTINUED GROWTH OF 2 NODULAR FOCI AT THE DEPTH OF LEFT TEMPORAL RESECTION CAVITY, DETAILED. THE LARGER SHOWS MODERATELY INCREASED CBV, SUSPICIOUS FOR PROGRESSION. 2. STABLE EXTRA-AXIAL ENHANCING LESION OVER LEFT MEDIAL FRONTAL LOBE, WITH REDUCED SIZE OF MORE LATERAL EXTRA-AXIAL LESION 3. REDUCED LEFT FRONTAL EPIDURAL HEMATOMA 4. NO NEW ACUTE PROCESS OR SUSPICIOUS ENHANCEMENT NOTE: Had MRI sooner than scheduled (11/30/2024), as the MR center called him asking if he wanted to have his MR sooner, as someone had canceled. I reviewed the images with the patient and family. 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 Progressive disease ACTIVE ISSUES: 1- GBM-MGMT promoter not hyper methylated. 08/22/24 MRI progressive disease. -lomustine cycle No 4: 90 mg/M2 DAY 1/42 days cycle. -Cycle: tentative date 12/03/24. 9-Dfmqdwewtutx-rcfuzqv nausea: -Use Zofran, prior/after chemo and as needed. 3-Imaging surveillance: -Brain w and w/o contrast and perfusion - To be done at the end of cycle No 4. 2A-Clinic visits: -In person visit, after MRI brain. 3-Bone marrow suppression from chemotherapy: periodic CBC, every 6 weeks. Also, CMP every 6 weeks. 4- Seizures: Since I saw him last, he has not had any events to suggest seizures. -On lacosamide (Vimpat): Started on 04/05/23. Dose is 150 mg twice a day. -Lacosamide blood levels, Latest Reference Range AND Units 07/14/24 09:38 Lacosamide 2.2 - 19.8 ug/mL 10.6 Based on the above levels to continue on the same dose. 5-Seizure precautions: The patient is not to drive any motorized vehicle, and not to engage in activities that could place her or others in danger if she were to have a seizure. I also discussed the use of rescue medication for breakthrough seizures, using midazolam nasal spray (NS) to use it as needed (PRN) and discussed when to use it. I discussed the potential benefits and side effects, including tiredness, fatigue, and or sleepiness and if so, the patient is not to engage in activities that require to be fully alert. I have also provided written information for the patient's review. 6-He is to follow by her PCP for general medical care/coordination of care. 7-STEROIDS Started 11/17/2024 2mg a day empirically to improve symptoms, include, appetite, fatigue. To be used short term. Will re-assess at next appointment. 12/01/2024 continue on dexamethasone 2 mg a day in view that his symptoms improved significantly. Will reassess at the next appointment whether we should start to drop the dose. I think he is benefiting from this much of a steroid, however we will try to avoid long-term use. Furthermore this may suggest that the patient has a degree of adrenal insufficiency perhaps. If he cannot go off the steroids, we will refer him to endocrinology. 8-To see PCP to define appropriate vaccinations as above. 9-Potential for thromboembolism: to watch for potential DVT/Pulmonary Embolism, and if so to go to the ED/call 911. 10-End of life issues: Adv Dir in chart. -Patient discussed, this important aspect, of his diagnosis, that is, that he acknowledges, that this condition will end his life, at young age, and relatively soon and that he has goals, for the next year or so, that is, to attend, important milestones events of his children's, which will take place, in the next year or so. Currently,02/19/24 his children's are 20 and 21 years old. He has seen Dr. Lion, from palliative medicine will also give advice regarding This. 11-psychosocial issues: Patient asked, advised on how to approach, his current diagnosis and progressive disease, with his children who are 2020. We given some advice, how it could be helpful for his children to cope with his unfortunate condition. However, we recommended for him to seek attention from psychosocial oncology, and this Could be expanded to the family. He has seen Dr. Daniel Juárez from psychology and psychiatry, as well [facility] Jaclyn Guillory. 12-Hygroma on surgical site: MRI 11/20/2024 New chronic appearing subdural hemorrhage measuring 11 mm in maximal thickness overlying the left parietal convexity with approximately 2 mm rightward midline shift. Redistribution of cystic hygroma, now measuring up to 4 mm in maximal thickness and predominantly along the left frontoparietal falx. 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 He saw Dr. Wilcox/surgical team (09/08/24) to address this today 09/08/24. Also clinically there is bulging of craniotomy site, not symptomatic. Dr. Evans recommend observation. 11/16/2024 Brain MR. 3. REDUCED LEFT FRONTAL EPIDURAL HEMATOMA 13-Fatigue after chemo - start Provigil for fatigue, improve alertness - wakefulness. I discussed potential benefits and side effects. 14-Had events of N/A X 1 - feels fatigue, and low appetite, as well dizziness, and low fluid intake, Had orthostatic BP dropped 20 points. Likely dehydration. -SEE PCP -Improve PO intake -START STEROIDS EMPIRICALLY - FOR POSSIBLE ADRENAL INSUFFICIENCY, AND TO IMPROVE APPETITE = SHORT TERM - START DEXAMETHASONE AT 2 MG A DAY. -Start pantoprazole. -No need for PJP prophylaxis just yet (dexamethasone: not on or over 3 mg /day and not over 3 weeks.). This will be re-assess in the near future. -Start on dexamethasone 2 mg a day for 2 weeks, then drop to 1 mg a day and then re-assess 2 weeks later. -Nutritional issues: start empiric thiamine 50-100 mg a dey. -I told the patient to go to the ED if his symptoms were to worsen - or develop additional symptoms, including symptoms to suggest infection, i.e., fever, chills, etc. -12/01/2024: All the symptoms resolved, she will continue on dexamethasone 2 mg a day as above noted. I am seeing the patient in collaboration with Esme Cook RN [facility] Banking Supervisor PLAN 12/01/2024: -lomustine cycle No 4: 90 mg/M2 DAY days cycle. -Cycle: tentative date 12/03/24. -MRI brain with and without contrast, and perfusion to be done, 6 weeks after initiation of cycle #4 of lomustine -Clinic follow up, after brain MRI In the end the patient and family verbalized understanding of the above, they had questions which I believe I answered to their satisfaction and agreed with these recommendations and had no further questions or concerns for the moment, but I encourage them to call the [facility] with any questions or concerns. I spent a total of 40 minutes on the date of the service which included preparing to see the patient, at least 50% of [id number] patient care, completing clinical documentation, obtaining and/or reviewing separately obtained history, performing a medically appropriate examination, counseling and educating the patient/family/caregiver, ordering medications, tests, or procedures, communicating with other HCPs (not separately reported), independently interpreting results (not separately reported), communicating results to the patient/family/caregiver and care coordination (not separately reported). High MDM. Patricia Enriquez MD [facility] Patient Care Team: -Jose Evans MD, Neurosurgery, [facility], [facility], [facility] Cyndee Joyce MD, PhD, Radiation Oncology, [facility], [facility], [facility]. Jaclyn Guillory LSW as Pull Worker (Hematology/Oncology) Soraida Simmons RN (Hospice AND Palliative Medicine) Willy Lion MD (Hospice AND Palliative Medicine) Rupa Khoury APRN.MANUFACTURING ENGINEERING MANAGER (Hospice AND Palliative Medicine) Daniel Juárez PSYD, Psychology, [facility] Allergies As of Date: 12/01/2024 (No Known Allergies) Date Reviewed: 12/01/2024 Reviewed by: Karla Pedroza MA - Fully Assessed Reason for Visit: Established Patient [175] Primary Visit Diagnosis:Glioblastoma (HCC) [C71.9] Other Visit Diagnoses:Seizures (HCC) [R56.9] Herpes zoster with complication [B02.8] Prescriptions as of 12/02/2024 - lomustine (GLEOSTINE) 100 mg capsule Take one 8mg Zofran on an empty stomach in the evening. Wait ONE hour. Take TWO 100mg capsule(s) Lomustine by mouth for a total dose of 200mg. Take one 8 mg Zofran twenty-four hours later. Take on Day 1 of each 42 day cycle. - dexAMETHasone (DECADRON) 2 mg tablet Take 1 tablet by mouth daily with breakfast. - pantoprazole DR (PROTONIX) 40 mg tablet Take 1 tablet by mouth once daily. - valACYclovir (VALTREX) 500 mg tablet Take 1 tablet by mouth once daily. - traZODone (DESYREL) 50 mg tablet Take 1 tablet by mouth daily at bedtime. - lacosamide (VIMPAT) 150 mg tab Take 1 tablet by mouth two times a day. - ondansetron (ZOFRAN) 8 mg tablet Take one tablet by mouth on an empty stomach in the evening one hour prior to chemo. Then take one tablet 24 hours after chemo. May repeat dose every 8-12 hours if needed to prevent nausea - midazolam (NAYZILAM) 5 mg/spray (0.1 mL) nasal spray Use 1 [place] in the nose as needed for up to 10 days. May repeat dose in alternate nostril after 10 minutes based on response and tolerability. - sennosides (SENNA ORAL) Take by mouth. - acetaminophen (TYLENOL) 325 mg tablet 2 tablets by ORAL/FEEDING TUBE route every 4 hours as needed for pain. Problem List As Of Date 12/01/2024 Noted Resolved Chest pain [R07.9] 04/25/2010 05/26/2024 Brain mass [G93.89] 03/17/2023 11/17/2023 Obesity, Class I, BMI 30-34.9 [E66.811] 03/17/2023 Brain compression (HCC) [G93.5] 03/20/2023 S/P brain surgery [Z98.890] 03/20/2023 11/17/2023 At risk for seizures [Z91.89] 03/20/2023 Cerebral edema (HCC) [G93.6] 03/20/2023 GBM (glioblastoma multiforme) (HCC) [C71.9] 04/07/2023 Syncope, unspecified syncope type [R55] 11/01/2023 11/03/2023 Examination of participant in clinical trial [Z*11/05/2023 11/17/2023 Forehead pain [R51.9] 11/05/2023 PONV (postoperative nausea and vomiting) [R11.2*05/26/2024 Acute post-operative pain [G89.18] 05/29/2024 Thrombocytopenia [D69.6] 10/13/2024 Encounter Status:Closed by PATRICIA ENRIQUEZ on 12/02/24 PROGRESS Observed: 12/01/2024 1:00 PM Status: COMPLETED Source: [facility] HNO ID: [id number] Author: TONA COBOS, RN Service: ? Author Type: Registered Nurse Type: Progress Notes Filed: 12/02/2024 22:28 Note Text: Glioblastoma follow up L temporal mass resection 03/19/2023- Not hypermethylated L temporal mass re-do resection 05/27/24 Stupp 04/20-05/29/23 Enrolled in [facility] 1319 until progression in February [address] Evans 09/23/24 Lomustine 90mg/m2 C#1 02/25-04/08/24 Lomustine 90mg/m2 C #2 09/05-10/17/24 Lomustine 90mg/m2 C#3 10/21-12/02/24 Received N-Plate x 1 injection 10/18/23 (PLTS 10/13-76K, 10/21-176K) Did MRI early in cycle on 11/16- ? repeat week of January 09 Needs lomustine by 12/08- will start after daughters grad on 12/10- Lomustine has been ordered Labs 11/29/24- PTS 173K ANC 8.56 PROGRESS Observed: 12/01/2024 12:59 PM Status: COMPLETED Source: [facility] HNO ID: [id number] Author: KARLA PEDROZA MA Service: ? Author Type: Camp Housekeeper Type: Progress Notes Filed: 12/02/2024 22:28 Note Text: Additional intake questions: Has the patient had fever, nausea, vomiting, diarrhea, constipation, fatigue for > 1 week? No Does the patient have a decreased appetite? No Does patient want to see a Outside Solar Sales Consultant? No (yes to any of above refer patient to schedulers for dietitian appointment) ) Does patient have any new or increased numbness or tingling of extremities? No Is patient interested in fertility information? No Does patient need any prescription refills? No Does patient have an advanced directive in place? No, Patient referred to Resource Center Electronically Signed By: Karla Pedroza MA PROGRESS Observed: 11/30/2024 1:54 PM Status: COMPLETED Source: [facility] HNO ID: [id number] Author: TOYA CORREA RPh Service: ? Author Type: ? Type: Progress Notes Filed: 12/05/2024 09:16 Note Text: [facility] Specialty Refill Assessment Medication(s): Gleostine Reviewed OV note on 12/01. Labs reviewed. CBC stable/unremarkable. Patient presents prior to C4 of Lomustine. Dizziness has resolved. Plan to proceed with C4. Note states tentative start date of 12/03 - but patient is delaying until after daughter's graduation. Plan for follow up after MRI of brain Next clinic visit not currently scheduled. Gleostine cycles are as follows: C1D1 06/28/24 C2D1 09/05/24 - patient delayed C3D1 10/18/24 - per MD office C4D1 12/12/24 - delaying until after daughter's graduation C5D1 01/23/25 ALLERGIES No Known Allergies Patient's current medication list and adherence status to current therapy were reviewed by Specialty Pharmacy clinical pharmacist to identify any new drug interactions or non-compliance to therapy. Therapy continues to be appropriate for disease, patient response, and medical condition. Verification of therapeutic benefit and effectiveness with current therapy was completed. Adverse events, barriers in adherence, and side effects were assessed and addressed if applicable. Will proceed with refill with no changes in therapy - patient progressing towards achieving therapeutic goals based on medication-specific laboratory parameters, disease state markers and outcomes. Office/provider notes have been reviewed prior to dispensing the medication. Toya Correa PharmD Clinical Pharmacist, Oncology [facility] P: ; F: Pool: P [facility] Pool #: [id number] Tracer Lathe Set Up Operator Assessment Patient confirmed: Yes Med/dose confirmed: Yes Supplies needed: No supplies needed Missed doses: No Estimated days supply on hand: 0 Next cycle/dose due: 12/12/24 (per ) Copay amount: 30 Copay form of payment: Credit card on file Payment confirmed: Yes Delivery method: FedEx Signature required: Waived on patient request Delivery address: [address] [place] [id number] Delivery date: 12/06/24 Questions or concerns for the pharmacist?: No Did you have any side effects believed to be related to this medication, that resulted in hospitalization?: No Current Outpatient Medications on File Prior to Visit Medication Sig lomustine (GLEOSTINE) 100 mg capsule Take one 8mg Zofran on an empty stomach in the evening. Wait ONE hour. Take TWO 100mg capsule(s) Lomustine by mouth for a total dose of 200mg. Take one 8 mg Zofran twenty-four hours later. Take on Day 1 of each 42 day cycle. dexAMETHasone (DECADRON) 2 mg tablet Take 1 tablet by mouth daily with breakfast. pantoprazole DR (PROTONIX) 40 mg tablet Take 1 tablet by mouth once daily. valACYclovir (VALTREX) 500 mg tablet Take 1 tablet by mouth once daily. traZODone (DESYREL) 50 mg tablet Take 1 tablet by mouth daily at bedtime. lacosamide (VIMPAT) 150 mg tab Take 1 tablet by mouth two times a day. ondansetron (ZOFRAN) 8 mg tablet Take one tablet by mouth on an empty stomach in the evening one hour prior to chemo. Then take one tablet 24 hours after chemo. May repeat dose every 8-12 hours if needed to prevent nausea midazolam (NAYZILAM) 5 mg/spray (0.1 mL) nasal spray Use 1 [place] in the nose as needed for up to 10 days. May repeat dose in alternate nostril after 10 minutes based on response and tolerability. sennosides (SENNA ORAL) Take by mouth. (Patient not taking: Reported on 08/12/2024) acetaminophen (TYLENOL) 325 mg tablet 2 tablets by ORAL/FEEDING TUBE route every 4 hours as needed for pain. No current facility-administered medications on file prior to visit. [facility] SPECIALTY CLINICAL ASSESSMENT - HEMATOLOGY ONCOLOGY V6: Ivent complete: No Assessment to use: Refill Lab monitoring inclusive of CBC, Chem-7, and other labs as pertinent for therapy: Yes Chemo cycle timing assessment: Yes Assessment of injection issues: N/A Current medication list (including drug interaction assessment): Yes Experience of adverse reactions to the medication: Yes Date of influenza vaccination reminder: 02/25/2024 Date of most recent vaccination assessment: 02/25/2024 Treatment Plan Information: Diagnosis: GBM Previous treatment(s): Gross total resection [03/19/2023] , GCAR AGILE, randomized to [id number] IV twice weekly arm + Standard concurrent chemotherapy and radiation ,Adjuvant temozolomide PO D1-5 q 28 days Starting Dose/Titration: - 200mg as a single dose every 6 weeks - Dosing is 90 mg/m2 (200mg is max dose) Administration: - Administering on an empty stomach may reduce the incidence of nausea and vomiting. - Do not break capsules. If contact with skin occurs, immediately wash area (thoroughly). Avoid exposure to broken capsules. Supportive Care: - Associated with moderate-highly emetogenic risk; anti-emetics are recommended to prevent nauea and vomiting Side Effects/Warnings: include but are not limited to bone marrow suppression, hepatotoxicity, pulmonary toxicity, renal toxicity, secondary malignancies (MDS/AML) Monitoring: - CBC with differential and platelet count (weekly for at least 6 weeks after a dose) - Hepatic and renal function tests (periodic) - Pulmonary function tests (baseline and periodic) Drug-Drug Interactions: none identrified per Lexicomp 02/25/24 Baseline: - CrCl 104.4 ml/min Est. Tx Plan Start Date: No information available Estimated Start Date Info: Per Dr. Enriquez's discretion Est. Estimated Treatment Duration: Max 6 cycles Gokul Lopez COMP METAB 1999 PNL SERPL Collected: 9:42 AM Status: F Source: [facility] Order Comment: Specimen Type : BLOOD SPECIMEN Ordering Facility: [facility] Address: [address] [place], [place] [address] [address] TYPE CODE TESTS RESULT OUT OF RANGE REFERENCE UNITS LAB 2885-2(INC) Prot SerPl-mCnc 7.2 6.3-8.0 g/dL LAB 1751-7(LOINC) Albumin SerPl-mCnc 4.1 3.9-4.9 g/dL LAB 51514-2(LOINC) Calcium SerPl-mCnc 9.5 8.5-10.2 mg/dL LAB 1975-2(LOINC) Bilirub SerPl-mCnc 0.4 0.2-1.3 mg/dL LAB 6768-6(LOINC) ALP SerPl-cCnc 87 38-113 U/L LAB 25725-7(LOINC) AST SerPl w P-5'-P-cCnc 11 Low 14-40 U/L LAB 1743-4(LOINC) ALT SerPl w P-5'-P-cCnc 6 Low 10-54 U/L LAB 2345-7(LOINC) Glucose SerPl-mCnc 103 High 74-99 mg/dL Result Comment: The [place] Diabetes Association (ADA) provides guidance for cutoff values for fasting glucose and random glucose. The ADA defines fasting as no caloric intake for at least 8 hours. Fasting plasma glucose results between 100 to 125 mg/dL indicate increased risk for diabetes (prediabetes). Fasting plasma glucose results greater than or equal to 126 mg/dL meet the criteria for diagnosis of diabetes. In the absence of unequivocal hyperglycemia, results should be confirmed by repeat testing. In a patient with classic symptoms of hyperglycemia or hyperglycemic crisis, random plasma glucose results greater than or equal to 200 mg/dL meet the criteria for diagnosis of diabetes. Reference: Standards of Medical Care in Diabetes 2016, [place] Diabetes Association. Diabetes Care. 2016.39(Suppl 1). LAB 3094-0(LOINC) BUN SerPl-mCnc 17 9-24 mg/ dL LAB 2160-0(LOINC) Creat SerPl-mCnc 1.16 0.73-1.22 mg/dL LAB 2951-2(LOINC) Sodium SerPl-sCnc 140 136-144 mmol/L LAB 2823-3(LOINC) Potassium SerPl-sCnc 4.3 3.7-5.1 mmol/L LAB 2075-0(LOINC) Chloride SerPl-sCnc 104 98-107 mmol/L LAB 2027-9(LOINC) CO2 SerPl-sCnc 23 22-30 mmo l/L LAB 42246-7(LOINC) Anion Gap SerPl-sCnc 13 8-15 mmol/L LAB 37063-5(LOINC) Creatinine + eGFR Pnl SerPlBld 74 >=60 mL/min/1 .73m??? Result Comment: Estimated Gl omerular Filtration Rate (eGFR) is calculated using the 2020 CKD-EPI creatinine equation. This equation utilizes serum creatinine, sex, and age as parameters. The creatinine assay has traceable calibration to isotope dilution-mass spectrometry. Refer to KDIGO guidelines for clinical interpretation. In patients with unstable renal function, e.g. those with acute kidney injury, the eGFR may not accurately reflect actual GFR. Performed By: #### 56346-3 # ### [facility] CLIA [id number] [address] [place] [address] STATES OF [facility] CBC W AUTO DIFF BLD Collected: 11/29/2024 9:[address] atus: F Source: [facility] Order Comment: Specimen Type : BLOOD SPECIMEN Ordering Facility: [facility] Address: [address] [place] [address] TYPE CODE TESTS RESULT OUT OF RANGE REFERENCE UNITS LAB 6690-2(LOINC) WBC # Bld Auto 9.66 3.70-11.00 k/uL LAB 789-8(LOINC) RBC # Bld Auto 4.54 4.20-6.00 m/ uL LAB 718-7(LOINC) Hgb Bld-mCnc 15.0 13.0-17.0 g/dL LAB 4544-3(LOINC) Hct VFr Bld Auto 42.9 39.0-51.0 % LAB 787-2([facility]) MCV RBC Auto 94.5 80.0-100.0 fL LAB 785-6([facility]) MCH RBC Qn Auto 33.0 26.0-34.0 p g LAB 786-4([facility]) MCHC RBC Auto-mCnc 35.0 30.5-36.0 g/dL LAB 04146-4([facility]) RDW RBC-Rto 13.9 11.5-15.0 % LAB 777-3([facility]) Platelet # Bld Auto 173 150-400 k/uL LAB 15897-3([facility]) PMV Bld Auto 8.7 Low 9.0-12.7 fL LAB 770-8([facility]) Neutrophils/leuk NFr Bld Auto 88.7 % LAB 751-8([facility]) Neutrophils # Bld Auto 8.56 High 1.45-7.50 k/uL LAB 736-9([facility]) Lymphocytes/leuk NFr Bld Auto 6.7 % LAB 731-0([facility]) Lymphocytes # Bld Auto 0.65 Low 1.00-4.00 k/uL LAB 5905-5([facility]) Monocytes/leuk NFr Bld Auto 3.9 % LAB 742-7([facility]) Monocytes # Bld Auto 0.38 <0.87 k/uL LAB 713-8([facility]) Eosinophil/leuk NFr Bld Auto 0.1 % LAB 711-2([facility]) Eosinophil # Bld Auto <0.03 <0.46 k/uL LAB 706-2([facility]) Basophils/leuk NFr Bld Auto 0.2 % LAB 704-7([facility]) Basophils # Bld Auto <0.03 <0.11 k/uL LAB 75117-6([facility]) Imm Granulocytes/christina k NFr Bld Auto 0.4 % LAB 56315-2([facility]) Imm Granulocytes # Bld Auto 0.04 <0.10 k/uL LAB 63453-0([facility]) nRBC/100 WBC Bld-Rto 0.0 /100 WBC LAB 771-6([facility]) nRBC # Bld Auto <0.01 <0.01 k/u L LAB 61308-1([facility]) Differential method Bld Auto Performed By: #### 80122-1 # ### [facility] CLIA [id number] [address] [place] [address] [place] ALDOLASE SERPL-CCNC Collected: 11/30/19 9:42 AM Status: F Source: [facility] Order Comment: Specimen Type : BLOOD SPECIMEN Ordering Facility: [facility] Address: [address] [place] [address] TYPE CODE TESTS RESULT OUT OF RANGE REFERENCE UNITS LAB 1761-6([facility]) Aldolase SerPl-cCnc 4.0 1.5-8.1 U/L Result Comment: This test wa s developed, and its performance characteristics determined by the [facility] Department of Pathology and Laboratory Medicine. It has not been cleared or approved by the FDA. The [facility] Department of Pathology and Laboratory Medicine is regulated under CLIA as qualified to perform high-complexity testing. This test is used for clinical purposes. It should not be regarded as investigational or for research. Performed By: #### 1761-6 ## ## [facility] CLIA [id number] [address] [place] [address] [place] LIPASE SERPL-CCNC Collected: 11/29/2024 9:42 AM Stat us: F Source: [facility] Order Comment: Specimen Type : BLOOD SPECIMEN Ordering Facility: [facility] Address: [address] [place] [address] TYPE CODE TESTS RESULT OUT OF RANGE REFERENCE UNITS LAB 3040-3([facility]) Lipase SerPl-cCnc 82 High 16-61 U/L Performed By: #### 3040-3 ## ## [facility] CLIA [id number] [address] [place] [address] [place] CNPN Observed: 11/28/2024 12:00 AM Status: COMPLETED Source: [facility] Telephone (NSCAMN) VAL KEATINGLIS Arango ([id number]) 1970 M Date Time Provider Department 11/28/24 PATRICIA ENRIQUEZ During your visit today, we recorded the following information about you: Marifer Monsivais 11/28/2024 1:31 PM Signed General Call Caller : Pt Contact Reason for Call : pt accidentally threw his medications in the trash. He needs refills on all these medications. He has non for tonight. traZODone (DESYREL) 50 mg tablet [Patricia Enriquez MD] lacosamide (VIMPAT) 150 mg tab [Patricia Enriquez MD] valACYclovir (VALTREX) 500 mg tablet [Patricia Enriquez MD] Preferred pharmacy: [id number] [place] [address] [facility]. [phone] [facility] [place] [phone] Patient requesting return call ? Yes Tona Cobos, VAZQUEZ 11/28/2024 2:20 PM Signed I called [facility] pharmacy and spoke with pharmacist Pramod. Patient has refills and meds will be processed. He will need to pay watkins bhat for his Trazadone since it is too early to fill, or he can call his insurance company and ask for an override. I let Dr Keating know. The pharmacist is aware he needs these filled to warehouse pick[facility] tonight. I was told they would be ready. Patient did not get labs on 11/25 or today. He will get tomorrow as he is on his way to [place]. Tona Cobos, RN, BSN Banking Supervisor [facility] Allergies As of Date: 11/28/2024 (No Known Allergies) Date Reviewed: 11/17/2024 Reviewed by: Karla Pedroza MA - Fully Assessed Reason for Visit: Rx Refills [128] Cmt: Accidentally medication fell in trash Prescriptions as of 11/28/2024 - dexAMETHasone (DECADRON) 2 mg tablet Take 1 tablet by mouth daily with breakfast. - pantoprazole DR (PROTONIX) 40 mg tablet Take 1 tablet by mouth once daily. - valACYclovir (VALTREX) 500 mg tablet Take 1 tablet by mouth once daily. - traZODone (DESYREL) 50 mg tablet Take 1 tablet by mouth daily at bedtime. - lacosamide (VIMPAT) 150 mg tab Take 1 tablet by mouth two times a day. - lomustine (GLEOSTINE) 100 mg capsule Take one 8mg Zofran on an empty stomach in the evening. Wait ONE hour. Take TWO 100mg capsule(s) Lomustine by mouth for a total dose of 200mg. Take one 8 mg Zofran twenty-four hours later. Take on Day 1 of each 42 day cycle. - ondansetron (ZOFRAN) 8 mg tablet Take one tablet by mouth on an empty stomach in the evening one hour prior to chemo. Then take one tablet 24 hours after chemo. May repeat dose every 8-12 hours if needed to prevent nausea - midazolam (NAYZILAM) 5 mg/spray (0.1 mL) nasal spray Use 1 [place] in the nose as needed for up to 10 days. May repeat dose in alternate nostril after 10 minutes based on response and tolerability. - sennosides (SENNA ORAL) Take by mouth. - acetaminophen (TYLENOL) 325 mg tablet 2 tablets by ORAL/FEEDING TUBE route every 4 hours as needed for pain. Problem List As Of Date 11/28/2024 Noted Resolved Chest pain [R07.9] 04/25/2010 05/26/2024 Brain mass [G93.89] 03/17/2023 11/17/2023 Obesity, Class I, BMI 30-34.9 [E66.811] 03/17/2023 Brain compression (HCC) [G93.5] 03/20/2023 S/P brain surgery [Z98.890] 03/20/2023 11/17/2023 At risk for seizures [Z91.89] 03/20/2023 Cerebral edema (HCC) [G93.6] 03/20/2023 GBM (glioblastoma multiforme) (HCC) [C71.9] 04/07/2023 Syncope, unspecified syncope type [R55] 11/01/2023 11/03/2023 Examination of participant in clinical trial [Z*11/05/2023 11/17/2023 Forehead pain [R51.9] 11/05/2023 PONV (postoperative nausea and vomiting) [R11.2*05/26/2024 Acute post-operative pain [G89.18] 05/29/2024 Thrombocytopenia [D69.6] 10/13/2024 Encounter Status:Closed by TONA COBOS on 11/28/24 CNPN Observed: 11/22/2024 12:00 AM Status: COMPLETED Source: [facility] Telephone (NSCAMN) ANGEL KEATING ([id number]) 1970 M Date Time Provider Department 11/22/24 PATRICIA ENRIQUEZ [facility] During your visit today, we recorded the following information about you: Tona Cobos RN 11/22/2024 5:10 PM Signed Spoke with patient. reminded chemo labs due 11/25 and 12/01 with his visit. Plans to wait until after his daughter's graduation to start chemo and needs shipment by 12/08 Tona Cobos RN, BSN Banking Supervisor [facility] Allergies As of Date: 11/22/2024 (No Known Allergies) Date Reviewed: 11/17/2024 Reviewed by: Karla Pedroza MA - Fully Assessed Reason for Visit: Chemo labs 11/25 AND 12/01 [Other] Prescriptions as of 11/22/2024 - dexAMETHasone (DECADRON) 2 mg tablet Take 1 tablet by mouth daily with breakfast. - pantoprazole DR (PROTONIX) 40 mg tablet Take 1 tablet by mouth once daily. - valACYclovir (VALTREX) 500 mg tablet Take 1 tablet by mouth once daily. - traZODone (DESYREL) 50 mg tablet Take 1 tablet by mouth daily at bedtime. - lacosamide (VIMPAT) 150 mg tab Take 1 tablet by mouth two times a day. - lomustine (GLEOSTINE) 100 mg capsule Take one 8mg Zofran on an empty stomach in the evening. Wait ONE hour. Take TWO 100mg capsule(s) Lomustine by mouth for a total dose of 200mg. Take one 8 mg Zofran twenty-four hours later. Take on Day 1 of each 42 day cycle. - ondansetron (ZOFRAN) 8 mg tablet Take one tablet by mouth on an empty stomach in the evening one hour prior to chemo. Then take one tablet 24 hours after chemo. May repeat dose every 8-12 hours if needed to prevent nausea - midazolam (NAYZILAM) 5 mg/spray (0.1 mL) nasal spray Use 1 [place] in the nose as needed for up to 10 days. May repeat dose in alternate nostril after 10 minutes based on response and tolerability. - sennosides (SENNA ORAL) Take by mouth. - acetaminophen (TYLENOL) 325 mg tablet 2 tablets by ORAL/FEEDING TUBE route every 4 hours as needed for pain. Problem List As Of Date 11/22/2024 Noted Resolved Chest pain [R07.9] 04/25/2010 05/26/2024 Brain mass [G93.89] 03/17/2023 11/17/2023 Obesity, Class I, BMI 30-34.9 [E66.811] 03/17/2023 Brain compression (HCC) [G93.5] 03/20/2023 S/P brain surgery [Z98.890] 03/20/2023 11/17/2023 At risk for seizures [Z91.89] 03/20/2023 Cerebral edema (HCC) [G93.6] 03/20/2023 GBM (glioblastoma multiforme) (HCC) [C71.9] 04/07/2023 Syncope, unspecified syncope type [R55] 11/01/2023 11/03/2023 Examination of participant in clinical trial [Z*11/05/2023 11/17/2023 Forehead pain [R51.9] 11/05/2023 PONV (postoperative nausea and vomiting) [R11.2*05/26/2024 Acute post-operative pain [G89.18] 05/29/2024 Thrombocytopenia [D69.6] 10/13/2024 Encounter Status:Closed by TONA COBOS on 11/22/24 PROGRESS Observed: 11/17/2024 9:26 AM Status: COMPLETED Source: [facility] HNO ID: [id number] Author: PATRICIA ENRIQUEZ MD Service: ? Author Type: Physician Type: Progress Notes Filed: 11/19/2024 21:33 Note Text: [facility] Follow up Clinic visit [facility] Team: -Jose Evans MD, Neurosurgery -SAV Rodriguez, Radiation Oncology -Patricia Enriquez MD, Neuro-Oncology DIAGNOSIS: MGMT unmethylated Glioblastoma. 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 He initially presented with anxiety-attack like episodes going back to January 2023 as well as a fall, without loss of consciousness but +trauma to head around 02/27/2023. On 03/16/2023, he presented to [facility] ED with word finding difficulty, report of one-time fever of 101 in February, anxiety, increased thirst and urination and was found to have a L temporal mass with midline subfalcine shift concerning for high grade glioma. He was afebrile with normal glucose level and electrolytes. He underwent gross total resection by Dr. Evans on 03/19/2023, revealing an MGMT unmethylated glioblastoma, WHO Grade 4. He was discharged on keppra 750mg BID and dexamethasone taper. He established care with Dr. Enriquez and given paroxysmal episodes of anxiety, he was concerned about temporal lobe epilepsy and advised lifelong AED to reduce seizure risk. The patient was exhibiting some fatigue and dullness, so a cross taper from keppra to vimpat, with goal of vimpat 150mg BID. The patient expressed interest in clinical trials and enrolled onto [facility]. He was randomized to the [id number] arm (cyclic peptide modulating tumor microenvironment). TREATMENT HISTORY Gross total resection [03/19/2023] [facility] Dr. Evans MGMT unmethylated Glioblastoma. L temporal GCAR AGILE, randomized to [id number] IV twice weekly arm + Standard concurrent chemotherapy and radiation (04/20- 05/29/2023) [facility] Dr. Joyce and Dr. Enriquez Adjuvant temozolomide PO D1-5 q 28 days C1 07/01/23, will start 07/03 150mg/m2 C2 07/27/23 C3 08/31/23 C4 09/21/23 C5 10/26/23 C6 11/23/23 C7 12/28/23 STOP ADJ TMZ as the clinical; trial calls for up to 6 cycles. For some reason the patient had an extra cycle of Adj TMZ. Adjuvant [id number] during Maintenance: Cycle 7 Week 1 - infusions on 12/14/2023 (D1) and 12/17/2023 (D4) Cycle 7 Week 2 - infusions on 12/21/2023 (D8) and 12/24/2023 (D11) Cycle 7 Week 3 - infusions on 12/28/2023 (D15) and 12/31/2023 (D18) Cycle 7 Week 4 - infusions on 01/05/2024 (D22) and 01/08/2024 (D25) Cycle 8 Week 5 - infusions on 01/11/2024 and 01/14/2024 02/08/2024: MRI shows progression 02/08/24 [facility] Referrals to se Dr. Evans for possible surgery. If surgery offered, he can be enrolled in CASE 3322 clinical trial with methimazole + chemo. 02/18/24: Dr Evans recommended NO surgery. 02/26/24 Lomustine 90mg/m2 C#1 02/25-04/08/24 04/12/24 Tumor progression, increased CBV 04/14/2024 BTB Referrals to se Dr. Evans for possible surgery. The patient is also eligible, for CASE 3322 clinical trial with methimazole + chemo. 04/28/2024 Jose Evans MD since the patient, and recommended surgery. 04/28/2024 clinical trials team, saw the patient, the patient is eligible, for for CASE 3322 clinical trial with methimazole + chemo. Patient signed consent. Treatment plan: Pre-operative treatment Phase -Methimazole - Pre-Op period: 05/24/2024 to 05/27/2024 (last dose is DAY of surgery) -Dose level 2 (25 mg daily) Surgical resection 05/27/[address] 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 C1D1 (10-28 days after surgery) -Scheduled for 06/16/2024 (20 days post op) -Methimazole - Post-Op period: 05/27/2024- TBD -Dose level 2 (25 mg judy C1D1 lomustine 110 mg/m2 - 07/28/24 - NOTE DATE ENTERED IN ERROR - PATIENT DID NOT TAKE CHEMO ON 08/07/2024 C2D1 lomustine -- planned for 09/07/24 08/22/2024 Brain MR - new enhancing nodules. 08/29/2024 BTB recommend to continue on lomustine, and SRS to enhancing nodules, which was completed. CORRECTED DATES OF CHEMO: C1D1 JUN 28, 2024 09/05/2024 NOTE: RE; DISCREPANCY ON LOMUSTINE CYCLE. The patient recalled that he had taken Lomustine cycle No 1 [after 2nd surgery (05/27/2024)] on ~mid June 2024 and that he was due for cycle No 2 for early August 2024 We reviewed the pharmacy records and indeed the patient took cycle No 1 of Lomustine on 06/28/25, and he was due for next cycle on ~Aug 12, 2024. Pharmacy note confirm that lomustine was delivered. Although per patient knowledge that he needed to start his chemo, cycle No 2 of lomustine on 1st week of Aug 2024 - however he did not started as he was instructed that the chemo was to start not until Sep 07, 2024. Hence the patient had not started his chemo. 09/05/2024: The patient brought lomustine capsules, cycle No 2, as he noted - issued on 08/05/2024 - which should have started on Aug 12, 2024. The reason for the discrepancy - likely entry data error of when he took cycle No 1 of lomustine - erroneously was entered as 07/28/2025. Lomustine 90mg/m2 C#2 09/05-10/17/24 September 19, 2024 - September 23, 2024 Dr Joyce SRS-GK: AREA TREATED: 1) Lt Temp 2) LT Ant Falx 3) Lt Sup Front 4) Lt Tent 5) Lt Temp 10/12/2024 MRI BRAIN WO/W Foci of nodular enhancement along the left temporal resection cavity are similar compared to 09/19/2024 (increased compared to 08/22/2024). Increased nonenhancing T2/FLAIR hyperintensity within the left temporal lobe compared to 08/22/2024. Lomustine 90mg/m2 C#3 10/21-12/02/24 11/16/2024 Brain MR. 1- CONTINUED GROWTH OF 2 NODULAR FOCI AT THE DEPTH OF LEFT TEMPORAL RESECTION CAVITY, DETAILED. THE LARGER SHOWS MODERATELY INCREASED CBV, SUSPICIOUS FOR PROGRESSION. 2. STABLE EXTRA-AXIAL ENHANCING LESION OVER LEFT MEDIAL FRONTAL LOBE, WITH REDUCED SIZE OF MORE LATERAL EXTRA-AXIAL LESION 3. REDUCED LEFT FRONTAL EPIDURAL HEMATOMA 4. NO NEW ACUTE PROCESS OR SUSPICIOUS ENHANCEMENT NOTE: Had MRI sooner than scheduled (11/30/2024), as the MR center called him asking if he wanted to have his MR sooner, as someone had canceled. November 17, 2024 In person visit. The patient is accompanied by mother Today visit is for follow up after MRI. No issues, no seizures feels well. Dizziness - last Thursday - and has progressed - On Thursday N/V Vaishali on Thursday . Comes and goes, can last hours - there is a degree = Zofran - helps some - Low appetite No Abd pain No bladder Sx SOB No C/P No Rashes No No new meds. No seizures === Important events the patient would hope to attend: November 28 BD-Turns 19 YO Daughter graduates college December 10. Late Apr 29- youngest step daughter ==== Last Chemo: see above Current Steroids dose: N/A 11/17/24 No on steroids Current AED Dose: lacosamide (VIMPAT) 150 mg tab Take 1 tablet by mouth two times a day. 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 Evans; path = GBM ORTHOPEDICS SURGERY HX 1996 knee surgery SHX CRANIOTOMY Left 03/19/2023 Family History: FAMILY HISTORY Problem Relation Age of Onset Diabetes Father Coronary Artery Disease Father Stroke Father Breast Cancer Mother None Sister Anesthesia Problems No Family History Social History Tobacco Use Smoking status: Former Current packs/day: 1.00 Average packs/day: 1 pack/day for 4.0 years (4.0 ttl pk-yrs) Types: Cigarettes, Cigars Smokeless tobacco: Never Vaping Use Vaping status: Never Used Substance Use Topics Alcohol use: Not Currently Comment: three beers a month - per pt [id number] Drug use: Never Allergies: Patient has no known allergies. Current Outpatient Medications Medication Sig lacosamide (VIMPAT) 150 mg tab Take 1 tablet by mouth two times a day. iv contrast (will be provided with radiology test) MRI Brain Inject, intravenously, once for 1 dose.No IV access, insert saline lock prior to beginning of sedation, infusion, injection of imaging exam.Discontinue saline lock post exam. If Pt. has a central line or IVAD, may access for administration according to line specific nursing protocol.Once exam is complete flush line and de-access according to line specific nursing protocol in the MR contrast administration guidelines link iv contrast (will be provided with radiology test) MRI Brain Inject, intravenously, once for 1 dose.No IV access, insert saline lock prior to beginning of sedation, infusion, injection of imaging exam.Discontinue saline lock post exam. If Pt. has a central line or IVAD, may access for administration according to line specific nursing protocol.Once exam is complete flush line and de-access according to line specific nursing protocol in the MR contrast administration guidelines link meclizine (ANTIVERT) 25 mg tab Take 1 tablet by mouth three times a day. valACYclovir (VALTREX) 1 gram tablet Take 1,000 mg by mouth three times a day. ondansetron (ZOFRAN) 8 mg tablet Take one hour prior to temozolomide prescription then every 8 hours as needed for nausea. temozolomide (TEMODAR) 180 mg capsule Fast for one hour after taking Zofran and then take ONE 180 mg capsule, plus ONE 140 mg and TWO 5 mg capsules to total 330 mg. Then, fast for one hour after taking. Take on days 1-5 of your 28 day cycle. Temozolomide 140 mg capsule Fast for one hour after taking Zofran and then take ONE 180 mg capsule, plus ONE 140 mg and TWO 5 mg capsules to total 330 mg. Then, fast for one hour after taking. Take on days 1-5 of your 28 day cycle. temozolomide (TEMODAR) 5 mg capsule Fast for one hour after taking Zofran and then take ONE 180 mg capsule, plus ONE 140 mg and TWO 5 mg capsules to total 330 mg. Then, fast for one hour after taking. Take on days 1-5 of your 28 day cycle. ondansetron (ZOFRAN) 8 mg tablet Take 1 tablet (8 mg) by mouth one hour before taking temozolomide dosing. Take on an empty stomach (Patient taking differently: Take 1 tablet (8 mg) by mouth one hour before taking temozolomide dosing. Take on an empty stomach) sennosides (SENNA ORAL) Take by mouth. DIETARY SUPPLEMENT,[facility] COMB14 ORAL Take by mouth. Biomega 1000mg containing vitamin E and pure anchovy medical supply, miscellaneous (MISCELLANEOUS MEDICAL SUPPLY [facility]) Neurotrophin acetaminophen (TYLENOL) 325 mg tablet 2 tablets by ORAL/FEEDING TUBE route every 4 hours as needed for pain. pantoprazole DR (PROTONIX) 20 mg tablet Take 1 tablet by mouth DAILY (6 AM). midazolam (NAYZILAM) 5 mg/spray (0.1 mL) nasal spray Use 1 [place] in the nose as needed for up to 10 days. May repeat dose in alternate nostril after 10 minutes based on response and tolerability. No current facility-administered medications for this visit. Review of systems: Constitutional: No recent fever or weight loss. Eyes: No history of glaucoma or cataracts. ENMT: No recent ear infection, nasal congestion, mouth sores or sore throat. CV: No history of chest pain, palpitations or leg swelling. Respiratory: No history of SOB, asthma or recent cough. Gastrointestinal: No history of nausea, vomiting, dysphagia or abdominal pain. Genitourinary: No history of hematuria or dysuria. Musculoskeletal: No complaint of arthritis, unstable gait or arm/leg weakness. Psychiatric: No history of hallucinations or depression or anxiety. ROS Neurological: No complaint of headache. No complaint of tinnitus. No complaint of decreased hearing. No complaint of diplopia. No complaints of decreased visual acuity. No complaint of arm/leg numbness. No problem with limb coordination. No complaint of syncope, seizures or disorientation. Objective Physical Exam: BP 130/88 Pulse 88 Temp 36.8 ?C (98.2 ?F) (Oral) Resp 18 Wt 98.7 kg (217 lb 9.5 oz) SpO2 99% BMI 31.61 kg/m? GENERAL EXAM: General appearance: Well appearing, alert, in no acute distress Skin: Skin color, texture, turgor normal Oropharynx: No thrush noted. Lungs: Lungs clear to auscultation. No wheezing, rhonchi, rales Heart: RRR without murmur, gallop, or rubs. No ectopy Abdomen: Normal abdominal exam, Abdomen soft, non-tender. Bowel sounds normal. Extremities: No deformities, skin discoloration, clubbing or cyanosis. Good capillary refill, no edema to BLE. Harmony's sign negative. No pain to palpation. NEUROLOGICAL EXAM: Higher integrative functions: Oriented to person, place AND time. Attention Span and Concentration: Good. Language: Accurate naming of objects. Good comprehension. Fund of Knowledge: Good. 2nd CN: Full visual land. 3rd,4th,6th CN: Pupils equal, round, react to light, full extraocular movements. 5th CN: No decrease in facial sensation 7th CN: Facial muscles symmetric and strong. 8th CN: Hears finger rub well bilaterally. 9th CN: Gag reflex not tested 10th CN: Spontaneous palate movement, full and symmetric. 11th CN: Full strength in shoulder shrug. 12th CN: Tongue protrusion full and midline. Sensation: No decrease in sensation in upper or lower limbs to touch. Musculoskeletal: Gait steady. Tandem walk normal. Romberg negative. Motor: 5/5 RUE/RLE; 5/5 LUE/LLENormal muscle tone without atrophy in all limbs. Coordination: Rapid alternating movements LUE intact; RUE intact Reflexes: 1-2+ ALL limbs. Plantar response down going. Karnofsky performance status: 70 - Cares for self, unable to carry on normal activity or to do work. ECOG performance status: 2 - Ambulatory and capable of all self-care but unable to carry out any work activities. Up and about more than 50% of waking hours. 09/08/2024 PHQ 2 and 9 Total Scores PHQ-2 Score 0 Labs: Latest Ref Rng AND Units 10/21/2024 10/27/2024 11/11/2024 CBC WBC 3.70 - 11.00 k/uL 2.65 2.54 5.95 RBC 4.20 - 6.00 m/uL 4.12 3.95 4.30 Hemoglobin 13.0 - 17.0 g/dL 13.6 13.2 14.3 Hematocrit 39.0 - 51.0 % 38.9 37.0 40.4 MCV 80.0 - 100.0 fL 94.4 93.7 94.0 MCH 26.0 - 34.0 pg 33.0 33.4 33.3 MCHC 30.5 - 36.0 g/dL 35.0 35.7 35.4 RDW-CV 11.5 - 15.0 % 14.0 14.2 14.6 Platelet Count 150 - 400 k/uL 144 309 190 MPV 9.0 - 12.7 fL 9.3 8.8 8.4 Baso% % 0.8 0.8 0.8 Abs Neut (ANC) 1.45 - 7.50 k/uL 1.56 1.63 4.24 Abs Lymph 1.00 - 4.00 k/uL 0.60 0.46 0.72 Abs Branch <0.87 k/uL 0.41 0.38 0.88 Abs Eosin <0.46 k/uL 0.05 0.03 0.03 Abs Baso <0.11 k/uL <0.03 <0.03 0.05 NRBC /100 WBC 0.0 0.0 0.0 Latest Ref Rng AND Units 10/05/2024 10/13/2024 10/21/2024 CMP Sodium 136 - 144 mmol/L 132 141 138 Potassium 3.7 - 5.1 mmol/L 4.0 4.1 4.3 Chloride 98 - 107 mmol/L 100 109 105 CO2 22 - 30 mmol/L 22 23 23 Glucose 74 - 99 mg/dL 122 101 96 BUN 9 - 24 mg/dL 21 16 12 Creatinine 0.73 - 1.22 mg/dL 1.18 1.25 1.11 EGFR >=60 mL/min/1.73m? 72 68 78 Protein, Total 6.3 - 8.0 g/dL 7.3 6.6 6.7 Albumin 3.9 - 4.9 g/dL 4.0 3.7 3.9 Calcium 8.5 - 10.2 mg/dL 9.4 8.7 9.2 Bilirubin, Total 0.2 - 1.3 mg/dL 0.6 0.4 0.6 AST 14 - 40 U/L 9 12 10 ALT 10 - 54 U/L 10 12 10 Alkaline Phosphatase 38 - 113 U/L 96 87 91 Final Pathology: SURGICAL PATHOLOGY: [id number] Order: [id number] Collected 03/19/2023 10:24 AM Status: Edited Result - FINAL Visible to patient: Yes (not seen) Dx: Brain tumor (HCC) 0 Result Notes Component FINAL DIAGNOSIS A, B. Brain, left temporal mass, biopsy and resection: - Morphologically consistent with high grade glioma. See comment. Diagnosis Comment CARLOS stained sections reveal a hypercellular infiltrating glioma with moderate to marked nuclear pleomorphism and increased mitoses (upto 4 per 10 high per field). Pseudopalisading necrosis and microvascular proliferation are identified. Immunohistochemical stains are performed at [facility] to better classify this lesion (block B1) and show the following in neoplastic cells: IDH1 R132H: neagtive (wildtype); ATRX: retained (wildtype); BRAF V600E: negative (wildtype); p53 strong nuclear positivity in up to 40%; Ki67 proliferative index up to 25%. Addendum This addendum is rendered to report the results of the following molecular studies: Targeted Oncology Panel: The oncogenic TERT promoter alteration, c.-124C>T (also known as C228T) was detected in this specimen; MGMT promoter methylation: not hypermethylated. 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 Addendum electronically signed by Krista Snow MD on 04/03/2023 at 9:13 AM Imagin11/16/2024 Brain MR. 1- CONTINUED GROWTH OF 2 NODULAR FOCI AT THE DEPTH OF LEFT TEMPORAL RESECTION CAVITY, DETAILED. THE LARGER SHOWS MODERATELY INCREASED CBV, SUSPICIOUS FOR PROGRESSION. 2. STABLE EXTRA-AXIAL ENHANCING LESION OVER LEFT MEDIAL FRONTAL LOBE, WITH REDUCED SIZE OF MORE LATERAL EXTRA-AXIAL LESION 3. REDUCED LEFT FRONTAL EPIDURAL HEMATOMA 4. NO NEW ACUTE PROCESS OR SUSPICIOUS ENHANCEMENT NOTE: Had MRI sooner than scheduled (11/30/2024), as the MR center called him asking if he wanted to have his MR sooner, as someone had canceled. I reviewed the images with the patient and family. 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 Progressive disease ACTIVE ISSUES: 1- GBM-MGMT promoter not hyper methylated. 08/22/24 MRI progressive disease. -Currently on lomustine cycle No 3: 90 mg/M2 DAY 1/42 days cycle. -Cycle: 10/21-12/02/24. 5-Ijiysoyoqner-arbhmkl nausea: -Use Zofran, prior/after chemo and as needed. 3-Imaging surveillance: -Brain w and w/o contrast and perfusion - To be done at the end of cycle No 4. 2A-Clinic visits: -In person visit booked for 12/01/24 3-Bone marrow suppression from chemotherapy: periodic CBC, every 6 weeks. Also, CMP every 6 weeks. 4- Seizures: Since I saw him last, he has not had any events to suggest seizures (02/19/2024). -On lacosamide (Vimpat): Started on 04/05/23. Dose is 150 mg twice a day. -Lacosamide blood levels, Latest Reference Range AND Units 07/14/24 09:38 Lacosamide 2.2 - 19.8 ug/mL 10.6 Based on the above levels to continue on the same dose. 5-Seizure precautions: The patient is not to drive any motorized vehicle, and not to engage in activities that could place her or others in danger if she were to have a seizure. I also discussed the use of rescue medication for breakthrough seizures, using midazolam nasal spray (NS) to use it as needed (PRN) and discussed when to use it. I discussed the potential benefits and side effects, including tiredness, fatigue, and or sleepiness and if so, the patient is not to engage in activities that require to be fully alert. I have also provided written information for the patient's review. 6-He is to follow by her PCP for general medical care/coordination of care. 7-STEROIDS Started 11/17/2024 2mg a day empirically to improve symptoms, include, appetite, fatigue. To be used short term. Will re-assess at next appointment. 8-To see PCP to define appropriate vaccinations as above. 9-Potential for thromboembolism: to watch for potential DVT/Pulmonary Embolism, and if so to go to the ED/call 911. 10-End of life issues: Adv Dir in chart. -Patient discussed, this important aspect, of his diagnosis, that is, that he acknowledges, that this condition will end his life, at young age, and relatively soon and that he has goals, for the next year or so, that is, to attend, important milestones events of his children's, which will take place, in the next year or so. Currently,02/19/24 his children's are 20 and 21 years old. He has seen Dr. Lion, from palliative medicine will also give advice regarding This. 11-psychosocial issues: Patient asked, advised on how to approach, his current diagnosis and progressive disease, with his children who are 2020. We given some advice, how it could be helpful for his children to cope with his unfortunate condition. However, we recommended for him to seek attention from psychosocial oncology, and this Could be expanded to the family. He has seen Dr. Daniel Juárez from psychology and psychiatry, as well [facility] Jaclyn Guillory. 12-Hygroma on surgical site: MRI 11/20/2024 New chronic appearing subdural hemorrhage measuring 11 mm in maximal thickness overlying the left parietal convexity with approximately 2 mm rightward midline shift. Redistribution of cystic hygroma, now measuring up to 4 mm in maximal thickness and predominantly along the left frontoparietal falx. 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 He saw Dr. Wilcox/surgical team (09/08/24) to address this today 09/08/24. Also clinically there is bulging of craniotomy site, not symptomatic. Dr. Evans recommend observation. 11/16/2024 Brain MR. 3. REDUCED LEFT FRONTAL EPIDURAL HEMATOMA 13-Fatigue after chemo - start Provigil for fatigue, improve alertness - wakefulness. I discussed potential benefits and side effects. I am seeing the patient in collaboration with Esme oCok RN [facility] Banking Supervisor PLAN 11/17/2024: -Currently on lomustine cycle No 3: 90 mg/M2 -Cycle: 10/21-12/02/24 -Clinic follow up, in person visit. Booked for 12/01/2024. -MRI brain booked for 11/30/24 cancelled - as patient had MR sooner, 11/16/2024 -Interval of Next MR to be done tentatively at the end of cycle No 4. -Had events of N/A X 1 - feels fatigue, and low appetite, as well dizziness, and low fluid intake, Had orthostatic BP dropped 20 points. Likely dehydration. -SEE PCP -Improve PO intake -START STEROIDS EMPIRICALLY - FOR POSSIBLE ADRENAL INSUFFICIENCY, AND TO IMPROVE APPETITE = SHORT TERM - START DEXAMETHASONE AT 2 MG A DAY. -Start pantoprazole. -No need for PJP prophylaxis just yet (dexamethasone: not on or over 3 mg /day and not over 3 weeks.). This will be re-assess in the near future. -Start on dexamethasone 2 mg a day for 2 weeks, then drop to 1 mg a day and then re-assess 2 weeks later. -Nutritional issues: start empiric thiamine 50-100 mg a dey. -I told the patient to go to the ED if his symptoms were to worsen - or develop additional symptoms, including symptoms to suggest infection, i.e., fever, chills, etc. In the end the patient and family verbalized understanding of the above, they had questions which I believe I answered to their satisfaction and agreed with these recommendations and had no further questions or concerns for the moment, but I encourage them to call the [facility] with any questions or concerns. I spent a total of 40 minutes on the date of the service which included preparing to see the patient, at least 50% of [id number] patient care, completing clinical documentation, obtaining and/or reviewing separately obtained history, performing a medically appropriate examination, counseling and educating the patient/family/caregiver, ordering medications, tests, or procedures, communicating with other HCPs (not separately reported), independently interpreting results (not separately reported), communicating results to the patient/family/caregiver and care coordination (not separately reported). High MDM. Patricia Enriquez MD [facility] Patient Care Team: -Jose Evans MD, Neurosurgery, [facility], [facility], [facility] Cyndee Joyce MD, PhD, Radiation Oncology, [facility], [facility]. Jaclyn Guillory LSW as Pull Worker (Hematology/Oncology) Soraida Simmons RN (Hospice AND Palliative Medicine) Willy Lion MD (Hospice AND Palliative Medicine) Rupa Khoury APRN.EDSON (Hospice AND Palliative Medicine) Daniel Juárez PSYD, Psychology, [facility] PROGRESS Observed: 11/17/2024 9:16 AM Status: COMPLETED Source: [facility] HNO ID: [id number] Author: KARLA PEDROZA MA Service: ? Author Type: Camp Housekeeper Type: Progress Notes Filed: 11/19/2024 21:33 Note Text: Additional intake questions: Has the patient had fever, nausea, vomiting, diarrhea, constipation, fatigue for > 1 week? No Does the patient have a decreased appetite? No Does patient want to see a Outside Solar Sales Consultant? No (yes to any of above refer patient to schedulers for dietitian appointment) ) Does patient have any new or increased numbness or tingling of extremities? No Is patient interested in fertility information? No Does patient need any prescription refills? No Does patient have an advanced directive in place? Yes, copies are in Germin8 Electronically Signed By: Karla Pedroza MA CNOV Observed: 11/17/2024 9:00 AM Status: COMPLETED Source: [facility] Office Visit (NSCAMN) ANGEL KEATING ([id number]) 1970 M Date Time Provider Department 11/17/24 9:00 AM PATRICIA ENRIQUEZ [facility] During your visit today, we recorded the following information about you: Temperature Pulse Respiration Blood pressure 98.2 degrees 88/minute 18/minute 130/88 Weight 98.7 kg Esme Cook RN 11/19/2024 9:33 PM Signed Glioblastoma MRI 11/16/24 CBC adequate for chemo Lomustine Cx3 Karla Pedroza MA 11/19/2024 9:33 PM Signed Additional intake questions: Has the patient had fever, nausea, vomiting, diarrhea, constipation, fatigue for > 1 week? No Does the patient have a decreased appetite? No Does patient want to see a Outside Solar Sales Consultant? No (yes to any of above refer patient to schedulers for dietitian appointment) ) Does patient have any new or increased numbness or tingling of extremities? No Is patient interested in fertility information? No Does patient need any prescription refills? No Does patient have an advanced directive in place? Yes, copies are in Germin8 Electronically Signed By: SALEEM Zepeda Alejandro, MD 11/19/2024 9:33 PM Signed [facility] Follow up Clinic visit B BT Team: -Jose Evans MD, Neurosurgery -SAV Rodriguez, Radiation Oncology -Patricia Enriquez MD, Neuro-Oncology DIAGNOSIS: MGMT unmethylated Glioblastoma. 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 He initially presented with anxiety-attack like episodes going back to January 2023 as well as a fall, without loss of consciousness but +trauma to head around 02/27/2023. On 03/16/2023, he presented to [facility] [place] ED with word finding difficulty, report of one-time fever of 101 in February, anxiety, increased thirst and urination and was found to have a L temporal mass with midline subfalcine shift concerning for high grade glioma. He was afebrile with normal glucose level and electrolytes. He underwent gross total resection by Dr. Evans on 03/19/2023, revealing an MGMT unmethylated glioblastoma, WHO Grade 4. He was discharged on keppra 750mg BID and dexamethasone taper. He established care with Dr. Enriquez and given paroxysmal episodes of anxiety, he was concerned about temporal lobe epilepsy and advised lifelong AED to reduce seizure risk. The patient was exhibiting some fatigue and dullness, so a cross taper from keppra to vimpat, with goal of vimpat 150mg BID. The patient expressed interest in clinical trials and enrolled onto [facility] AGILE. He was randomized to the [id number] arm (cyclic peptide modulating tumor microenvironment). TREATMENT HISTORY Gross total resection [03/19/2023] [facility] Dr. Evans MGMT unmethylated Glioblastoma. L temporal GCAR AGILE, randomized to [id number] IV twice weekly arm + Standard concurrent chemotherapy and radiation (04/20- 05/29/2023) [facility] Dr. Joyce and Dr. Enriquez Adjuvant temozolomide PO D1-5 q 28 days C1 07/01/23, will start 07/03 150mg/m2 C2 07/27/23 C3 08/31/23 C4 09/21/23 C5 10/26/23 C6 11/23/23 C7 12/28/23 STOP ADJ TMZ as the clinical; trial calls for up to 6 cycles. For some reason the patient had an extra cycle of Adj TMZ. Adjuvant [id number] during Maintenance: Cycle 7 Week 1 - infusions on 12/14/2023 (D1) and 12/17/2023 (D4) Cycle 7 Week 2 - infusions on 12/21/2023 (D8) and 12/24/2023 (D11) Cycle 7 Week 3 - infusions on 12/28/2023 (D15) and 12/31/2023 (D18) Cycle 7 Week 4 - infusions on 01/05/2024 (D22) and 01/08/2024 (D25) Cycle 8 Week 5 - infusions on 01/11/2024 and 01/14/2024 02/08/2024: MRI shows progression 02/08/24 BTB Referrals to se Dr. Evans for possible surgery. If surgery offered, he can be enrolled in CASE 3322 clinical trial with methimazole + chemo. 02/18/24: Dr Evans recommended NO surgery. 02/26/24 Lomustine 90mg/m2 C#1 02/25-04/08/24 04/12/24 Tumor progression, increased CBV 04/14/2024 BTB Referrals to se Dr. Evans for possible surgery. The patient is also eligible, for CASE 3322 clinical trial with methimazole + chemo. 04/28/2024 Jose Evans MD since the patient, and recommended surgery. 04/28/2024 clinical trials team, saw the patient, the patient is eligible, for for CASE 3322 clinical trial with methimazole + chemo. Patient signed consent. Treatment plan: Pre-operative treatment Phase -Methimazole - Pre-Op period: 05/24/2024 to 05/27/2024 (last dose is DAY of surgery) -Dose level 2 (25 mg daily) Surgical resection 05/27/[address] 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 C1D1 (10-28 days after surgery) -Scheduled for 06/16/2024 (20 days post op) -Methimazole - Post-Op period: 05/27/2024- TBD -Dose level 2 (25 mg judy C1D1 lomustine 110 mg/m2 - 07/28/24 - NOTE DATE ENTERED IN ERROR - PATIENT DID NOT TAKE CHEMO ON 08/07/2024 C2D1 lomustine -- planned for 09/07/24 08/22/2024 Brain MR - new enhancing nodules. 08/29/2024 BTB recommend to continue on lomustine, and SRS to enhancing nodules, which was completed. CORRECTED DATES OF CHEMO: C1D1 JUN 28, 2024 09/05/2024 NOTE: RE; DISCREPANCY ON LOMUSTINE CYCLE. The patient recalled that he had taken Lomustine cycle No 1 [after 2nd surgery (05/27/2024)] on ~mid June 2024 and that he was due for cycle No 2 for early August 2024 We reviewed the pharmacy records and indeed the patient took cycle No 1 of Lomustine on 06/28/25, and he was due for next cycle on ~Aug 12, 2024. Pharmacy note confirm that lomustine was delivered. Although per patient knowledge that he needed to start his chemo, cycle No 2 of lomustine on 1st week of Aug 2024 - however he did not started as he was instructed that the chemo was to start not until Sep 07, 2024. Hence the patient had not started his chemo. 09/05/2024: The patient brought lomustine capsules, cycle No 2, as he noted - issued on 08/05/2024 - which should have started on Aug 12, 2024. The reason for the discrepancy - likely entry data error of when he took cycle No 1 of lomustine - erroneously was entered as 07/28/2025. Lomustine 90mg/m2 C#2 09/05-10/17/24 September 19, 2024 - September 23, 2024 Dr Joyce SRS-GK: AREA TREATED: 1) Lt Temp 2) LT Ant Falx 3) Lt Sup Front 4) Lt Tent 5) Lt Temp 10/12/2024 MRI BRAIN WO/W Foci of nodular enhancement along the left temporal resection cavity are similar compared to 09/19/2024 (increased compared to 08/22/2024). Increased nonenhancing T2/FLAIR hyperintensity within the left temporal lobe compared to 08/22/2024. Lomustine 90mg/m2 C#3 10/21-12/02/24 11/16/2024 Brain MR. 1- CONTINUED GROWTH OF 2 NODULAR FOCI AT THE DEPTH OF LEFT TEMPORAL RESECTION CAVITY, DETAILED. THE LARGER SHOWS MODERATELY INCREASED CBV, SUSPICIOUS FOR PROGRESSION. 2. STABLE EXTRA-AXIAL ENHANCING LESION OVER LEFT MEDIAL FRONTAL LOBE, WITH REDUCED SIZE OF MORE LATERAL EXTRA-AXIAL LESION 3. REDUCED LEFT FRONTAL EPIDURAL HEMATOMA 4. NO NEW ACUTE PROCESS OR SUSPICIOUS ENHANCEMENT NOTE: Had MRI sooner than scheduled (11/30/2024), as the MR center called him asking if he wanted to have his MR sooner, as someone had canceled. November 17, 2024 In person visit. The patient is accompanied by mother Today visit is for follow up after MRI. No issues, no seizures feels well. Dizziness - last Thursday - and has progressed - On Thursday N/V Vaishali on Thursday . Comes and goes, can last hours - there is a degree = Eveline - helps some - Low appetite No Abd pain No bladder Sx SOB No C/P No Rashes No No new meds. No seizures - ==== Important events the patient would hope to attend: November 28 BD- YO Daughter graduates college December 10. Late Apr 29- youngest step daughter - ===== Last Chemo: see above Current Steroids dose: N/A 11/17/24 No on steroids Current AED Dose: lacosamide (VIMPAT) 150 mg tab Take 1 tablet by mouth two times a day. 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 Evans; path = GBM ORTHOPEDICS SURGERY HX 1996 knee surgery SHX CRANIOTOMY Left 03/19/2023 Family History: FAMILY HISTORY Problem Relation Age of Onset Diabetes Father Coronary Artery Disease Father Stroke Father Breast Cancer Mother None Sister Anesthesia Problems No Family History Social History Tobacco Use Smoking status: Former Current packs/day: 1.00 Average packs/day: 1 pack/day for 4.0 years (4.0 ttl pk-yrs) Types: Cigarettes, Cigars Smokeless tobacco: Never Vaping Use Vaping status: Never Used Substance Use Topics Alcohol use: Not Currently Comment: three beers a month - per pt [id number] Drug use: Never Allergies: Patient has no known allergies. Current Outpatient Medications Medication Sig lacosamide (VIMPAT) 150 mg tab Take 1 tablet by mouth two times a day. iv contrast (will be provided with radiology test) MRI Brain Inject, intravenously, once for 1 dose.No IV access, insert saline lock prior to beginning of sedation, infusion, injection of imaging exam.Discontinue saline lock post exam. If Pt. has a central line or IVAD, may access for administration according to line specific nursing protocol.Once exam is complete flush line and de-access according to line specific nursing protocol in the MR contrast administration guidelines link iv contrast (will be provided with radiology test) MRI Brain Inject, intravenously, once for 1 dose.No IV access, insert saline lock prior to beginning of sedation, infusion, injection of imaging exam.Discontinue saline lock post exam. If Pt. has a central line or IVAD, may access for administration according to line specific nursing protocol.Once exam is complete flush line and de-access according to line specific nursing protocol in the MR contrast administration guidelines link meclizine (ANTIVERT) 25 mg tab Take 1 tablet by mouth three times a day. valACYclovir (VALTREX) 1 gram tablet Take 1,000 mg by mouth three times a day. ondansetron (ZOFRAN) 8 mg tablet Take one hour prior to temozolomide prescription then every 8 hours as needed for nausea. temozolomide (TEMODAR) 180 mg capsule Fast for one hour after taking Zofran and then take ONE 180 mg capsule, plus ONE 140 mg and TWO 5 mg capsules to total 330 mg. Then, fast for one hour after taking. Take on days 1-5 of your 28 day cycle. Temozolomide 140 mg capsule Fast for one hour after taking Zofran and then take ONE 180 mg capsule, plus ONE 140 mg and TWO 5 mg capsules to total 330 mg. Then, fast for one hour after taking. Take on days 1-5 of your 28 day cycle. temozolomide (TEMODAR) 5 mg capsule Fast for one hour after taking Zofran and then take ONE 180 mg capsule, plus ONE 140 mg and TWO 5 mg capsules to total 330 mg. Then, fast for one hour after taking. Take on days 1-5 of your 28 day cycle. ondansetron (ZOFRAN) 8 mg tablet Take 1 tablet (8 mg) by mouth one hour before taking temozolomide dosing. Take on an empty stomach (Patient taking differently: Take 1 tablet (8 mg) by mouth one hour before taking temozolomide dosing. Take on an empty stomach) sennosides (SENNA ORAL) Take by mouth. DIETARY SUPPLEMENT,MISC COMB14 ORAL Take by mouth. Biomega 1000mg containing vitamin E and pure anchovy medical supply, miscellaneous (MISCELLANEOUS MEDICAL SUPPLY MISC) Neurotrophin acetaminophen (TYLENOL) 325 mg tablet 2 tablets by ORAL/FEEDING TUBE route every 4 hours as needed for pain. pantoprazole DR (PROTONIX) 20 mg tablet Take 1 tablet by mouth DAILY (6 AM). midazolam (NAYZILAM) 5 mg/spray (0.1 mL) nasal spray Use 1 [place] in the nose as needed for up to 10 days. May repeat dose in alternate nostril after 10 minutes based on response and tolerability. No current facility-administered medications for this visit. Review of systems: Constitutional: No recent fever or weight loss. Eyes: No history of glaucoma or cataracts. ENMT: No recent ear infection, nasal congestion, mouth sores or sore throat. CV: No history of chest pain, palpitations or leg swelling. Respiratory: No history of SOB, asthma or recent cough. Gastrointestinal: No history of nausea, vomiting, dysphagia or abdominal pain. Genitourinary: No history of hematuria or dysuria. Musculoskeletal: No complaint of arthritis, unstable gait or arm/leg weakness. Psychiatric: No history of hallucinations or depression or anxiety. ROS Neurological: No complaint of headache. No complaint of tinnitus. No complaint of decreased hearing. No complaint of diplopia. No complaints of decreased visual acuity. No complaint of arm/leg numbness. No problem with limb coordination. No complaint of syncope, seizures or disorientation. Objective Physical Exam: BP 130/88 Pulse 88 Temp 36.8 ?C (98.2 ?F) (Oral) Resp 18 Wt 98.7 kg (217 lb 9.5 oz) SpO2 99% BMI 31.61 kg/m? GENERAL EXAM: General appearance: Well appearing, alert, in no acute distress Skin: Skin color, texture, turgor normal Oropharynx: No thrush noted. Lungs: Lungs clear to auscultation. No wheezing, rhonchi, rales Heart: RRR without murmur, gallop, or rubs. No ectopy Abdomen: Normal abdominal exam, Abdomen soft, non-tender. Bowel sounds normal. Extremities: No deformities, skin discoloration, clubbing or cyanosis. Good capillary refill, no edema to BLE. Harmony's sign negative. No pain to palpation. NEUROLOGICAL EXAM: Higher integrative functions: Oriented to person, place AND time. Attention Span and Concentration: Good. Language: Accurate naming of objects. Good comprehension. Fund of Knowledge: Good. 2nd CN: Full visual land. 3rd,4th,6th CN: Pupils equal, round, react to light, full extraocular movements. 5th CN: No decrease in facial sensation 7th CN: Facial muscles symmetric and strong. 8th CN: Hears finger rub well bilaterally. 9th CN: Gag reflex not tested CN: Spontaneous palate movement, full and symmetric. CN: Full strength in shoulder shrug. CN: Tongue protrusion full and midline. Sensation: No decrease in sensation in upper or lower limbs to touch. Musculoskeletal: Gait steady. Tandem walk normal. Romberg negative. Motor: 5/5 RUE/RLE; 5/5 LUE/LLENormal muscle tone without atrophy in all limbs. Coordination: Rapid alternating movements LUE intact; RUE intact Reflexes: 1-2+ ALL limbs. Plantar response down going. Karnofsky performance status: 70 - Cares for self, unable to carry on normal activity or to do work. ECOG performance status: 2 - Ambulatory and capable of all self-care but unable to carry out any work activities. Up and about more than 50% of waking hours. 09/08/2024 PHQ 2 and 9 Total Scores PHQ-2 Score 0 Labs: Latest Ref Rng AND Units 10/21/2024 10/27/2024 11/11/2024 CBC WBC 3.70 - 11.00 k/uL 2.65 2.54 5.95 RBC 4.20 - 6.00 m/uL 4.12 3.95 4.30 Hemoglobin 13.0 - 17.0 g/dL 13.6 13.2 14.3 Hematocrit 39.0 - 51.0 % 38.9 37.0 40.4 MCV 80.0 - 100.0 fL 94.4 93.7 94.0 MCH 26.0 - 34.0 pg 33.0 33.4 33.3 MCHC 30.5 - 36.0 g/dL 35.0 35.7 35.4 RDW-CV 11.5 - 15.0 % 14.0 14.2 14.6 Platelet Count 150 - 400 k/uL 144 309 190 MPV 9.0 - 12.7 fL 9.3 8.8 8.4 Baso% % 0.8 0.8 0.8 Abs Neut (ANC) 1.45 - 7.50 k/uL 1.56 1.63 4.24 Abs Lymph 1.00 - 4.00 k/uL 0.60 0.46 0.72 Abs Branch <0.87 k/uL 0.41 0.38 0.88 Abs Eosin <0.46 k/uL 0.05 0.03 0.03 Abs Baso <0.11 k/uL <0.03 <0.03 0.05 NRBC /100 WBC 0.0 0.0 0.0 Latest Ref Rng AND Units 10/05/2024 10/13/2024 10/21/2024 CMP Sodium 136 - 144 mmol/L 132 141 138 Potassium 3.7 - 5.1 mmol/L 4.0 4.1 4.3 Chloride 98 - 107 mmol/L 100 109 105 CO2 22 - 30 mmol/L 22 23 23 Glucose 74 - 99 mg/dL 122 101 96 BUN 9 - 24 mg/dL 21 16 12 Creatinine 0.73 - 1.22 mg/dL 1.18 1.25 1.11 EGFR >=60 mL/min/1.73m? 72 68 78 Protein, Total 6.3 - 8.0 g/dL 7.3 6.6 6.7 Albumin 3.9 - 4.9 g/dL 4.0 3.7 3.9 Calcium 8.5 - 10.2 mg/dL 9.4 8.7 9.2 Bilirubin, Total 0.2 - 1.3 mg/dL 0.6 0.4 0.6 AST 14 - 40 U/L 9 12 10 ALT 10 - 54 U/L 10 12 10 Alkaline Phosphatase 38 - 113 U/L 96 87 91 Final Pathology: SURGICAL PATHOLOGY: [id number] Order: [id number] Collected 03/19/2023 10:24 AM Status: Edited Result - FINAL Visible to patient: Yes (not seen) Dx: Brain tumor (HCC) 0 Result Notes Component FINAL DIAGNOSIS A, B. Brain, left temporal mass, biopsy and resection: - Morphologically consistent with high grade glioma. See comment. Diagnosis Comment CARLOS stained sections reveal a hypercellular infiltrating glioma with moderate to marked nuclear pleomorphism and increased mitoses (upto 4 per 10 high per field). Pseudopalisading necrosis and microvascular proliferation are identified. Immunohistochemical stains are performed at [facility] to better classify this lesion (block B1) and show the following in neoplastic cells: IDH1 R132H: neagtive (wildtype); ATRX: retained (wildtype); BRAF V600E: negative (wildtype); p53 strong nuclear positivity in up to 40%; Ki67 proliferative index up to 25%. Addendum This addendum is rendered to report the results of the following molecular studies: Targeted Oncology Panel: The oncogenic TERT promoter alteration, c.-124C>T (also known as C228T) was detected in this specimen; MGMT promoter methylation: not hypermethylated. 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 Addendum electronically signed by Krista Snow MD on 04/03/2023 at 9:13 AM Imagin11/16/2024 Brain MR. 1- CONTINUED GROWTH OF 2 NODULAR FOCI AT THE DEPTH OF LEFT TEMPORAL RESECTION CAVITY, DETAILED. THE LARGER SHOWS MODERATELY INCREASED CBV, SUSPICIOUS FOR PROGRESSION. 2. STABLE EXTRA-AXIAL ENHANCING LESION OVER LEFT MEDIAL FRONTAL LOBE, WITH REDUCED SIZE OF MORE LATERAL EXTRA-AXIAL LESION 3. REDUCED LEFT FRONTAL EPIDURAL HEMATOMA 4. NO NEW ACUTE PROCESS OR SUSPICIOUS ENHANCEMENT NOTE: Had MRI sooner than scheduled (11/30/2024), as the MR center called him asking if he wanted to have his MR sooner, as someone had canceled. I reviewed the images with the patient and family. 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 Progressive disease ACTIVE ISSUES: 1- GBM-MGMT promoter not hyper methylated. 08/22/24 MRI progressive disease. -Currently on lomustine cycle No 3: 90 mg/M2 DAY 1/42 days cycle. -Cycle: 10/21-12/02/24. 8-Pprauuhfdwon-stxwyfw nausea: -Use Zofran, prior/after chemo and as needed. 3-Imaging surveillance: -Brain w and w/o contrast and perfusion - To be done at the end of cycle No 4. 2A-Clinic visits: -In person visit booked for 12/01/24 3-Bone marrow suppression from chemotherapy: periodic CBC, every 6 weeks. Also, CMP every 6 weeks. 4- Seizures: Since I saw him last, he has not had any events to suggest seizures (02/19/2024). -On lacosamide (Vimpat): Started on 04/05/23. Dose is 150 mg twice a day. -Lacosamide blood levels, Latest Reference Range AND Units 07/14/24 09:38 Lacosamide 2.2 - 19.8 ug/mL 10.6 Based on the above levels to continue on the same dose. 5-Seizure precautions: The patient is not to drive any motorized vehicle, and not to engage in activities that could place her or others in danger if she were to have a seizure. I also discussed the use of rescue medication for breakthrough seizures, using midazolam nasal spray (NS) to use it as needed (PRN) and discussed when to use it. I discussed the potential benefits and side effects, including tiredness, fatigue, and or sleepiness and if so, the patient is not to engage in activities that require to be fully alert. I have also provided written information for the patient's review. 6-He is to follow by her PCP for general medical care/coordination of care. 7-STEROIDS Started 11/17/2024 2mg a day empirically to improve symptoms, include, appetite, fatigue. To be used short term. Will re-assess at next appointment. 8-To see PCP to define appropriate vaccinations as above. 9-Potential for thromboembolism: to watch for potential DVT/Pulmonary Embolism, and if so to go to the ED/call 911. 10-End of life issues: Adv Dir in chart. -Patient discussed, this important aspect, of his diagnosis, that is, that he acknowledges, that this condition will end his life, at young age, and relatively soon and that he has goals, for the next year or so, that is, to attend, important milestones events of his children's, which will take place, in the next year or so. Currently,02/19/24 his children's are 20 and 21 years old. He has seen Dr. Lion, from palliative medicine will also give advice regarding This. 11-psychosocial issues: Patient asked, advised on how to approach, his current diagnosis and progressive disease, with his children who are 2020. We given some advice, how it could be helpful for his children to cope with his unfortunate condition. However, we recommended for him to seek attention from psychosocial oncology, and this Could be expanded to the family. He has seen Dr. Daniel Juárez from psychology and psychiatry, as well [facility] Jaclyn Guillory. 12-Hygroma on surgical site: MRI 11/20/2024 New chronic appearing subdural hemorrhage measuring 11 mm in maximal thickness overlying the left parietal convexity with approximately 2 mm rightward midline shift. Redistribution of cystic hygroma, now measuring up to 4 mm in maximal thickness and predominantly along the left frontoparietal falx. 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 He saw Dr. Wilcox/surgical team (09/08/24) to address this today 09/08/24. Also clinically there is bulging of craniotomy site, not symptomatic. Dr. Evans recommend observation. 11/16/2024 Brain MR. 3. REDUCED LEFT FRONTAL EPIDURAL HEMATOMA 13-Fatigue after chemo - start Provigil for fatigue, improve alertness - wakefulness. I discussed potential benefits and side effects. I am seeing the patient in collaboration with Esme Cook RN [facility] Banking Supervisor PLAN 11/17/2024: -Currently on lomustine cycle No 3: 90 mg/M2 -Cycle: 10/21-12/02/24 -Clinic follow up, in person visit. Booked for 12/01/2024. -MRI brain booked for 11/30/24 cancelled - as patient had MR sooner, 11/16/2024 -Interval of Next MR to be done tentatively at the end of cycle No 4. -Had events of N/A X 1 - feels fatigue, and low appetite, as well dizziness, and low fluid intake, Had orthostatic BP dropped 20 points. Likely dehydration. -SEE PCP -Improve PO intake -START STEROIDS EMPIRICALLY - FOR POSSIBLE ADRENAL INSUFFICIENCY, AND TO IMPROVE APPETITE = SHORT TERM - START DEXAMETHASONE AT 2 MG A DAY. -Start pantoprazole. -No need for PJP prophylaxis just yet (dexamethasone: not on or over 3 mg /day and not over 3 weeks.). This will be re-assess in the near future. -Start on dexamethasone 2 mg a day for 2 weeks, then drop to 1 mg a day and then re-assess 2 weeks later. -Nutritional issues: start empiric thiamine 50-100 mg a dey. -I told the patient to go to the ED if his symptoms were to worsen - or develop additional symptoms, including symptoms to suggest infection, i.e., fever, chills, etc. In the end the patient and family verbalized understanding of the above, they had questions which I believe I answered to their satisfaction and agreed with these recommendations and had no further questions or concerns for the moment, but I encourage them to call the [facility] with any questions or concerns. I spent a total of 40 minutes on the date of the service which included preparing to see the patient, at least 50% of [id number] patient care, completing clinical documentation, obtaining and/or reviewing separately obtained history, performing a medically appropriate examination, counseling and educating the patient/family/caregiver, ordering medications, tests, or procedures, communicating with other HCPs (not separately reported), independently interpreting results (not separately reported), communicating results to the patient/family/caregiver and care coordination (not separately reported). High MDM. Patricia Enriquez MD [facility] Patient Care Team: -Jose Evans MD, Neurosurgery, [facility], [facility], [facility] Cyndee Joyce MD, PhD, Radiation Oncology, [facility], [facility]. Jaclyn Guillory, JULIO as Pull Worker (Hematology/Oncology) Soraida Simmons, VAZQUEZ (Hospice AND Palliative Medicine) Willy Lion MD (Hospice AND Palliative Medicine) Rupa Khoury APRN.EDSON (Hospice AND Palliative Medicine) Daniel Juárez PSYD, Psychology, [facility] Allergies As of Date: 11/17/2024 (No Known Allergies) Date Reviewed: 11/17/2024 Reviewed by: Karla Pedroza MA - Fully Assessed Reason for Visit: Established Patient [175] Primary Visit Diagnosis:Nausea and vomiting, unspecified vomiting type [R11.2] Other Visit Diagnosis:GBM (glioblastoma multiforme) (HCC) [C71.9] Order(s):ALDOLASE BLD [SQALD] Order #: [id number] FUTURE LIPASE [SQLIPA] Order #: [id number] FUTURE dexAMETHasone (DECADRON) 2 mg tabletTake 1 tablet by mouth daily with breakfast.Disp: 30 tabletRfl: [address] (PROTONIX) 40 mg tabletTake 1 tablet by mouth once daily.Disp: 30 tabletRfl: 2 Prescriptions as of 11/19/2024 - dexAMETHasone (DECADRON) 2 mg tablet Take 1 tablet by mouth daily with breakfast. - pantoprazole DR (PROTONIX) 40 mg tablet Take 1 tablet by mouth once daily. - valACYclovir (VALTREX) 500 mg tablet Take 1 tablet by mouth once daily. - traZODone (DESYREL) 50 mg tablet Take 1 tablet by mouth daily at bedtime. - lacosamide (VIMPAT) 150 mg tab Take 1 tablet by mouth two times a day. - lomustine (GLEOSTINE) 100 mg capsule Take one 8mg Zofran on an empty stomach in the evening. Wait ONE hour. Take TWO 100mg capsule(s) Lomustine by mouth for a total dose of 200mg. Take one 8 mg Zofran twenty-four hours later. Take on Day 1 of each 42 day cycle. - ondansetron (ZOFRAN) 8 mg tablet Take one tablet by mouth on an empty stomach in the evening one hour prior to chemo. Then take one tablet 24 hours after chemo. May repeat dose every 8-12 hours if needed to prevent nausea - midazolam (NAYZILAM) 5 mg/spray (0.1 mL) nasal spray Use 1 [place] in the nose as needed for up to 10 days. May repeat dose in alternate nostril after 10 minutes based on response and tolerability. - sennosides (SENNA ORAL) Take by mouth. - acetaminophen (TYLENOL) 325 mg tablet 2 tablets by ORAL/FEEDING TUBE route every 4 hours as needed for pain. Problem List As Of Date 11/17/2024 Noted Resolved Chest pain [R07.9] 04/25/2010 05/26/2024 Brain mass [G93.89] 03/17/2023 11/17/2023 Obesity, Class I, BMI 30-34.9 [E66.811] 03/17/2023 Brain compression (HCC) [G93.5] 03/20/2023 S/P brain surgery [Z98.890] 03/20/2023 11/17/2023 At risk for seizures [Z91.89] 03/20/2023 Cerebral edema (HCC) [G93.6] 03/20/2023 GBM (glioblastoma multiforme) (HCC) [C71.9] 04/07/2023 Syncope, unspecified syncope type [R55] 11/01/2023 11/03/2023 Examination of participant in clinical trial [Z*11/05/2023 11/17/2023 Forehead pain [R51.9] 11/05/2023 PONV (postoperative nausea and vomiting) [R11.2*05/26/2024 Acute post-operative pain [G89.18] 05/29/2024 Thrombocytopenia [D69.6] 10/13/2024 Prescriptions ordered this encounter Disp Refills Start End DEXAMETHASONE 2 MG TABLET 30 t* 2 11/17/2024 Route: ORAL Sig: Take 1 tablet by mouth daily with breakfast. PANTOPRAZOLE 40 MG TABLET,DELAYED RE* 30 t* 2 11/17/2024 Route: ORAL Sig: Take 1 tablet by mouth once daily. Encounter Status:Closed by PATRICIA ENRIQUEZ on 11/19/24 PROGRESS Observed: 11/17/2024 9:00 AM Status: COMPLETED Source: [facility] HNO ID: [id number] Author: ESME COOK RN Service: ? Author Type: Registered Nurse Type: Progress Notes Filed: 11/19/2024 21:33 Note Text: Glioblastoma MRI 11/16/24 CBC adequate for chemo Lomustine Cx3 MRI BRAIN WO/W IVCON Observed: 8:33 AM Status: F Source: [facility] * * *Final Report* * * DATE OF EXAM: Nov 16 2024 8:33AM [facility] 0295 - MRI BRAIN WO/W IVCON / PROCEDURE REASON: Glioblastoma (HCC) * * * * Physician Interpretation * * * * EXAMINATION: MRI BRAIN WO/W IVCON CLINICAL HISTORY: Glioblastoma, presenting 04/01, status post resection 03/19/2023, redo operation 05/27/2024 for recurrence, status post chemoradiation TECHNIQUE: Routine brain MRI protocol without and with contrast including diffusion images. MQ: [id number]_2 Contrast: 20 mL Dotarem IV COMPARISON: Brain MRIs 10/12/2022, 09/19/2024, 08/22/2024, 07/13/2024, and others going back to presentation earlier this year. RESULT: Acute Change: There is no evidence of restricted diffusion to suggest an acute infarct. Hemorrhage: No evidence of prior parenchymal hemorrhage on the susceptibility weighted images. Mass Lesion/ Mass Effect: Redemonstrated is previously seen left anterior temporal lobectomy, and adjacent resection margins for prior mass. Using 3-D MPR techniques to coregister identical planes to recent MRI from 10/12/2024, again seen are previous rounded components along the deepest aspects of the resection margin, particularly located in the left uncus. The diameters of both have increased, for example now 10 mm, previously 8.5 mm. The second one now has a dimension of about 8 mm, previously 6 mm. There is no definitive restricted diffusion to suggest nick hypercellularity. Redemonstrated are 2 previously seen extra-axial peripheral and heterogeneously enhancing foci, over the left frontal lobe, 1 medial abutting the superior sagittal sinus, and is grossly stable. The second is more lateral and shows substantial improvement, for example now about 3 mm, previously 11 mm. Previously seen subdural hematoma over the left frontal lobe has reduced in size, for example now about 4 mm thick, previously 9 mm thick. Azygos is near the margin of the craniotomy, this may be associated with the more recent procedure. There remains a small remnant of a nodular enhancement at the left tentorial incisure, grossly similar. Perfusion imaging is adequate in terms of full capture of the bolus, negligible patient motion, and only minimal confounding susceptibility effect. Within these limits there is mildly elevated CBV associated with the larger nodular focus near the the left uncus. Otherwise there is no definitive focus of elevated CBV. Postsurgical seroma is again seen, not substantially changed Chronic Change: The white matter is within normal limits of signal intensity for age. Parenchyma: No significant volume loss for age. The brain parenchyma is otherwise within normal limits of signal intensity and morphology. Ventricles: Mild prominence. Skull Base: Hypothalamic and pituitary region are grossly normal. Craniocervical junction is normal. No significant marrow replacement process. Vasculature: Major intracranial arterial structures, and dural venous sinuses show typical flow void, suggesting patency by spin echo criteria. Other: The visualized paranasal sinuses and mastoid air cells are clear. The orbits and extracranial soft tissues are unremarkable. IMPRESSION: 1. CONTINUED GROWTH OF 2 NODULAR FOCI AT THE DEPTH OF LEFT TEMPORAL RESECTION CAVITY, DETAILED. THE LARGER SHOWS MODERATELY INCREASED CBV, SUSPICIOUS FOR PROGRESSION 2. STABLE EXTRA-AXIAL ENHANCING LESION OVER LEFT MEDIAL FRONTAL LOBE, WITH REDUCED SIZE OF MORE LATERAL EXTRA-AXIAL LESION 3. REDUCED LEFT FRONTAL EPIDURAL HEMATOMA 4. NO NEW ACUTE PROCESS OR SUSPICIOUS ENHANCEMENT Call Worker Person: PSCB Transcribe Date/Time: Nov 16 2024 9:11A Dictated by : ALEX ROBERTSON MD This examination was interpreted and the report reviewed and electronically signed by: ALEX ROBERTSON MD on Nov 16 2024 9:47AM EST [id number] PROGRESS Observed: 11/16/2024 8:00 AM Status: COMPLETED Source: [facility] HNO ID: [id number] Author: YINA WESTFALL RT(R) Service: ? Author Type: Technologist Type: Progress Notes Filed: 11/16/2024 08:15 Note Text: Radiology Service Progress Note PATIENT NAME: Angel Keating DATE OF SERVICE: November 16, 2024 TIME: 8:15 AM PATIENT IDENTITY VERIFICATION COMPLETED USING TWO (2) IDENTIFIERS: Name and Date of confirmed by patient verbally. FALL SCREENING: Has the patient had 2 falls in the last year or 1 fall with injury or currently using an Ambulatory Assistive Device (Walker, Cane, Wheelchair, Crutches, etc.)? No PATIENT GENDER DATA: Assigned male at PATIENT RELEVANT IMPLANT DATA REVIEWED: Yes PATIENT PRESENTS WITH AN IMPLANTABLE OR ATTACHED PLATE FINISHER: No RADIOLOGY DEPARTMENT: MR; Exam(s) Completed: Head: Routine Brain with Perfusion PERIPHERAL IV DATA: Site assessment: Clean,Dry and Intact, Site disposition Discontinued SIGNED BY: RT Bettye(R) November 16, 2024 8:15 AM CBC W AUTO DIFF BLD Collected: 11/11/2024 10:00 AM S tatus: F Source: [facility] Order Comment: Specimen Type : BLOOD SPECIMEN Ordering Facility: [facility] Address: [address] [place] [address] TYPE CODE TESTS RESULT OUT OF RANGE REFERENCE UNITS LAB 6690-2(LOINC) WBC # Bld Auto 5.95 3.70-11.00 k/uL LAB 789-8(LOINC) RBC # Bld Auto 4.30 4.20-6.00 m/ uL LAB 718-7(LOINC) Hgb Bld-mCnc 14.3 13.0-17.0 g/dL LAB 4544-3(LOINC) Hct VFr Bld Auto 40.4 39.0-51.0 % LAB 787-2([facility]) MCV RBC Auto 94.0 80.0-100.0 fL LAB 785-6([facility]) MCH RBC Qn Auto 33.3 26.0-34.0 p g LAB 786-4([facility]) MCHC RBC Auto-mCnc 35.4 30.5-36.0 g/dL LAB 86192-0([facility]) RDW RBC-Rto 14.6 11.5-15.0 % LAB 777-3([facility]) Platelet # Bld Auto 190 150-400 k/uL LAB 97353-7([facility]) PMV Bld Auto 8.4 Low 9.0-12.7 fL LAB 770-8([facility]) Neutrophils/leuk NFr Bld Auto 71.3 % LAB 751-8([facility]) Neutrophils # Bld Auto 4.24 1.45-7.50 k/uL LAB 736-9([facility]) Lymphocytes/leuk NFr Bld Auto 12.1 % LAB 731-0([facility]) Lymphocytes # Bld Auto 0.72 Low 1.00-4.00 k/uL LAB 5905-5([facility]) Monocytes/leuk NFr Bld Auto 14.8 % LAB 742-7([facility]) Monocytes # Bld Auto 0.88 High <0.87 k/uL LAB 713-8([facility]) Eosinophil/leuk NFr Bld Auto 0.5 % LAB 711-2([facility]) Eosinophil # Bld Auto 0.03 <0.46 k/uL LAB 706-2([facility]) Basophils/leuk NFr Bld Auto 0.8 % LAB 704-7([facility]) Basophils # Bld Auto 0.05 <0.11 k/uL LAB 93362-7([facility]) Imm Granulocytes/christina k NFr Bld Auto 0.5 % LAB 95082-3([facility]) Imm Granulocytes # Bld Auto 0.03 <0.10 k/uL LAB 94803-2([facility]) nRBC/100 WBC Bld-Rto 0.0 /100 WBC LAB 771-6([facility]) nRBC # Bld Auto <0.01 <0.01 k/u L LAB 10446-5([facility]) Differential method Bld Auto Performed By: #### [id number] # ### [facility] CLIA [id number] [address] [place] [address] [place] CBC W AUTO DIFF BLD Collected: 10/27/2024 11:23 AM S tatus: F Source: [facility] Order Comment: Specimen Type : BLOOD SPECIMEN Ordering Facility: [facility] Address: [address] [place] [address] TYPE CODE TESTS RESULT OUT OF RANGE REFERENCE UNITS LAB 6690-2([facility]) WBC # Bld Auto 2.54 Low 3.70-11.00 k/uL LAB 789-8([facility]) RBC # Bld Auto 3.95 Low 4.20-6.00 m/ uL LAB 718-7([facility]) Hgb Bld-mCnc 13.2 13.0-17.0 g/dL LAB 4544-3([facility]) Hct VFr Bld Auto 37.0 Low 39.0-51.0 % LAB 787-2([facility]) MCV RBC Auto 93.7 80.0-100.0 fL LAB 785-6([facility]) MCH RBC Qn Auto 33.4 26.0-34.0 p g LAB 786-4([facility]) MCHC RBC Auto-mCnc 35.7 30.5-36.0 g/dL LAB 10807-0([facility]) RDW RBC-Rto 14.2 11.5-15.0 % LAB 777-3([facility]) Platelet # Bld Auto 309 150-400 k/uL LAB 38878-0([facility]) PMV Bld Auto 8.8 Low 9.0-12.7 fL LAB 770-8([facility]) Neutrophils/leuk NFr Bld Auto 64.1 % LAB 751-8([facility]) Neutrophils # Bld Auto 1.63 1.45-7.50 k/uL LAB 736-9([facility]) Lymphocytes/leuk NFr Bld Auto 18.1 % LAB 731-0([facility]) Lymphocytes # Bld Auto 0.46 Low 1.00-4.00 k/uL LAB 5905-5([facility]) Monocytes/leuk NFr Bld Auto 15.0 % LAB 742-7([facility]) Monocytes # Bld Auto 0.38 <0.87 k/uL LAB 713-8([facility]) Eosinophil/leuk NFr Bld Auto 1.2 % LAB 711-2([facility]) Eosinophil # Bld Auto 0.03 <0.46 k/uL LAB 706-2([facility]) Basophils/leuk NFr Bld Auto 0.8 % LAB 704-7([facility]) Basophils # Bld Auto <0.03 <0.11 k/uL LAB 22143-4([facility]) Imm Granulocytes/christina k NFr Bld Auto 0.8 % LAB 76572-3([facility]) Imm Granulocytes # Bld Auto <0.03 <0.10 k/uL LAB 47323-6([facility]) nRBC/100 WBC Bld-Rto 0.0 /100 WBC LAB 771-6([facility]) nRBC # Bld Auto <0.01 <0.01 k/u L LAB 90774-1(LOINC) Differential method Bld Auto Performed By: #### 67800-1 # ### [facility] CLIA [id number] [address] [place] [address] OF [facility] CNPN Observed: 10/27/2024 12:00 AM Status: COMPLETED Source: [facility] Telephone (NSCAMN) ANGEL KEATING ([id number]) 1970 M Date Time Provider Department 10/27/24 PATRICIA ENRIQUEZ [facility] During your visit today, we recorded the following information about you: Tona Cobos, RN 10/27/2024 1:28 PM Signed Spoke with patient and let him know his chemo labs were reviewed by Dr Fraire. His platelet count was 309K (needs to be 100 or greater) and his absolute neutrophil count (ANC) was 1.63 (needs to be 1.5 or greater) Dr Fraire has DC'd remaining N plate injections. He would like him to recheck labs again in 2 weeks (11/10) then on 11/25 (week 5 of Lomustine) and 11/30 (week 6 of Lomustine) with his follow up visit. He has lab orders Tona Cobos, RN, BSN Banking Supervisor [facility] Allergies As of Date: 10/27/2024 (No Known Allergies) Date Reviewed: 10/13/2024 Reviewed by: Tanvi Stewart MA - Fully Assessed Reason for Visit: Chemo labs- DC N-Plate [Other] Prescriptions as of 10/27/2024 - valACYclovir (VALTREX) 500 mg tablet Take 1 tablet by mouth once daily. - traZODone (DESYREL) 50 mg tablet Take 1 tablet by mouth daily at bedtime. - lacosamide (VIMPAT) 150 mg tab Take 1 tablet by mouth two times a day. - lomustine (GLEOSTINE) 100 mg capsule Take one 8mg Zofran on an empty stomach in the evening. Wait ONE hour. Take TWO 100mg capsule(s) Lomustine by mouth for a total dose of 200mg. Take one 8 mg Zofran twenty-four hours later. Take on Day 1 of each 42 day cycle. - ondansetron (ZOFRAN) 8 mg tablet Take one tablet by mouth on an empty stomach in the evening one hour prior to chemo. Then take one tablet 24 hours after chemo. May repeat dose every 8-12 hours if needed to prevent nausea - midazolam (NAYZILAM) 5 mg/spray (0.1 mL) nasal spray Use 1 [place] in the nose as needed for up to 10 days. May repeat dose in alternate nostril after 10 minutes based on response and tolerability. - sennosides (SENNA ORAL) Take by mouth. - acetaminophen (TYLENOL) 325 mg tablet 2 tablets by ORAL/FEEDING TUBE route every 4 hours as needed for pain. Problem List As Of Date 10/27/2024 Noted Resolved Chest pain [R07.9] 04/25/2010 05/26/2024 Brain mass [G93.89] 03/17/2023 11/17/2023 Obesity, Class I, BMI 30-34.9 [E66.811] 03/17/2023 Brain compression (HCC) [G93.5] 03/20/2023 S/P brain surgery [Z98.890] 03/20/2023 11/17/2023 At risk for seizures [Z91.89] 03/20/2023 Cerebral edema (HCC) [G93.6] 03/20/2023 GBM (glioblastoma multiforme) (HCC) [C71.9] 04/07/2023 Syncope, unspecified syncope type [R55] 11/01/2023 11/03/2023 Examination of participant in clinical trial [Z*11/05/2023 11/17/2023 Forehead pain [R51.9] 11/05/2023 PONV (postoperative nausea and vomiting) [R11.2*05/26/2024 Acute post-operative pain [G89.18] 05/29/2024 Thrombocytopenia (HCC) [D69.6] 10/13/2024 Encounter Status:Closed by TONA COBOS on 10/27/24 PROGRESS Observed: 10/21/2024 3:40 PM Status: COMPLETED Source: [facility] HNO ID: [id number] Author: TONA COBOS RN Service: ? Author Type: Registered Nurse Type: Progress Notes Filed: 10/21/2024 15:41 Note Text: Labs drawn 10/21/24 and results reviewed by Dr.Torres morales to proceed with cycle #3 Medication: Lomustine 90mg/m2 x BSA 2.21 = 200mg. Take 200 mg x 1 dose every 6 weeks. Cycle Duration: 10/21-12/02/24 Repeat labs on 10/27/24- results will determine if N plate injections can be canceled. Labs week 5- 11/25 Labs week 6-12/01 with visit Cycle #4 should begin 12/03/24 PLT: 144 ANC: 1.56 ALK Phos:91 AST: 10 ALT: 10 Tona Cobos RN, BSN Banking Supervisor [facility] COMP METAB 2000 PNL SERPL Collected: 12:07 PM Status: F Source: [facility] Order Comment: Specimen Type : BLOOD SPECIMEN Ordering Facility: [facility] Address: [address], [place] [address] TYPE CODE TESTS RESULT OUT OF RANGE REFERENCE UNITS LAB 2885-2(LOINC) Prot SerPl-mCnc 6.7 6.3-8.0 g/dL LAB 1751-7(LO[facility]) Albumin SerPl-mCnc 3.9 3.9-4.9 g/dL LAB 02889-6(LOINC) Calcium SerPl-mCnc 9.2 8.5-10.2 mg/dL LAB 1975-2(LOINC) Bilirub SerPl-mCnc 0.6 0.2-1.3 mg/dL LAB 6768-6(LOINC) ALP SerPl-cCnc 91 38-113 U/L LAB 1920-8(LOINC) AST SerPl-cCnc 10 Low 14-40 U/L LAB 1742-6(LOINC) ALT SerPl-cCnc 10 10-54 U/L LAB 2345-7(LOINC) Glucose SerPl-mCnc 96 74-99 mg/dL Result Comment: The [place] Diabetes Association (ADA) provides guidance for cutoff values for fasting glucose and random glucose. The ADA defines fasting as no caloric intake for at least 8 hours. Fasting plasma glucose results between 100 to 125 mg/dL indicate increased risk for diabetes (prediabetes). Fasting plasma glucose results greater than or equal to 126 mg/dL meet the criteria for diagnosis of diabetes. In the absence of unequivocal hyperglycemia, results should be confirmed by repeat testing. In a patient with classic symptoms of hyperglycemia or hyperglycemic crisis, random plasma glucose results greater than or equal to 200 mg/dL meet the criteria for diagnosis of diabetes. Reference: Standards of Medical Care in Diabetes 2016, [place] Diabetes Association. Diabetes Care. 2016.39(Suppl 1). LAB 3094-0(LOINC) BUN SerPl-mCnc 12 9-24 mg/ dL LAB 2160-0(LOINC) Creat SerPl-mCnc 1.11 0.73-1.22 mg/dL LAB 2951-2(LOINC) Sodium SerPl-sCnc 138 136-144 mmol/L LAB 2823-3(LOINC) Potassium SerPl-sCnc 4.3 3.7-5.1 mmol/L LAB 2075-0(LOINC) Chloride SerPl-sCnc 105 98-107 mmol/L LAB 2027-9(LOINC) CO2 SerPl-sCnc 23 22-30 mmo l/L LAB 14191-7(LOINC) Anion Gap SerPl-sCnc 10 8-15 mmol/L LAB 12439-2(LOINC) Creatinine + eGFR Pnl SerPlBld 78 >=60 mL/min/1 .73m??? Result Comment: Estimated Gl omerular Filtration Rate (eGFR) is calculated using the 2020 CKD-EPI creatinine equation. This equation utilizes serum creatinine, sex, and age as parameters. The creatinine assay has traceable calibration to isotope dilution-mass spectrometry. Refer to KDIGO guidelines for clinical interpretation. In patients with unstable renal function, e.g. those with acute kidney injury, the eGFR may not accurately reflect actual GFR. Performed By: #### 30794-9 # ### [facility] CLIA [id number] [address] [place] [address] OF [facility] CBC W AUTO DIFF BLD Collected: 10/21/2024 12:07 PM S tatus: F Source: [facility] Order Comment: Specimen Type : BLOOD SPECIMEN Ordering Facility: [facility] Address: [address] [place] [address] TYPE CODE TESTS RESULT OUT OF RANGE REFERENCE UNITS LAB 6690-2(LOINC) WBC # Bld Auto 2.65 Low 3.70-11.00 k/uL LAB 789-8(LOINC) RBC # Bld Auto 4.12 Low 4.20-6.00 m/ uL LAB 718-7(LOINC) Hgb Bld-mCnc 13.6 13.0-17.0 g/dL LAB 4544-3([facility]) Hct VFr Bld Auto 38.9 Low 39.0-51.0 % LAB 787-2(LOINC) MCV RBC Auto 94.4 80.0-100.0 fL LAB 785-6(LOINC) MCH RBC Qn Auto 33.0 26.0-34.0 p g LAB 786-4(LOINC) MCHC RBC Auto-mCnc 35.0 30.5-36.0 g/dL LAB 88136-2([facility]) RDW RBC-Rto 14.0 11.5-15.0 % LAB 777-3([facility]) Platelet # Bld Auto 144 Low 150-400 k/uL LAB 62685-4([facility]) PMV Bld Auto 9.3 9.0-12.7 fL LAB 770-8([facility]) Neutrophils/leuk NFr Bld Auto 58.8 % LAB 751-8([facility]) Neutrophils # Bld Auto 1.56 1.45-7.50 k/uL LAB 736-9([facility]) Lymphocytes/leuk NFr Bld Auto 22.6 % LAB 731-0([facility]) Lymphocytes # Bld Auto 0.60 Low 1.00-4.00 k/uL LAB 5905-5([facility]) Monocytes/leuk NFr Bld Auto 15.5 % LAB 742-7([facility]) Monocytes # Bld Auto 0.41 <0.87 k/uL LAB 713-8([facility]) Eosinophil/leuk NFr Bld Auto 1.9 % LAB 711-2([facility]) Eosinophil # Bld Auto 0.05 <0.46 k/uL LAB 706-2([facility]) Basophils/leuk NFr Bld Auto 0.8 % LAB 704-7([facility]) Basophils # Bld Auto <0.03 <0.11 k/uL LAB 19580-4([facility]) Imm Granulocytes/christina k NFr Bld Auto 0.4 % LAB 79741-8([facility]) Imm Granulocytes # Bld Auto <0.03 <0.10 k/uL LAB 89462-4([facility]) nRBC/100 WBC Bld-Rto 0.0 /100 WBC LAB 771-6([facility]) nRBC # Bld Auto <0.01 <0.01 k/u L LAB 77484-0([facility]) Differential method Bld Auto Performed By: #### 34561-4 # ### [facility] CLIA [id number] [address] [place] [address] [place] CNPN Observed: 10/20/2024 12:00 AM Status: COMPLETED Source: [facility] Telephone (NSCAMN) ANGEL KEATING ([id number]) 1970 M Date Time Provider Department 10/20/24 PATRICIA ENRIQUEZ [facility] During your visit today, we recorded the following information about you: Esme Cook, RN 10/20/2024 1:43 PM Signed Called patient in response to his [facility] ([place]) message about platelets. He had not read Tona's reply. Spoke to him and informed him to get CBC drawn today or tomorrow at the latest. He said he will try to go today. No further questions. Allergies As of Date: 10/20/2024 (No Known Allergies) Date Reviewed: 10/13/2024 Reviewed by: Tanvi Stewart MA - Fully Assessed Reason for Visit: Patient Question [7670] Prescriptions as of 10/20/2024 - valACYclovir (VALTREX) 500 mg tablet Take 1 tablet by mouth once daily. - traZODone (DESYREL) 50 mg tablet Take 1 tablet by mouth daily at bedtime. - lacosamide (VIMPAT) 150 mg tab Take 1 tablet by mouth two times a day. - lomustine (GLEOSTINE) 100 mg capsule Take one 8mg Zofran on an empty stomach in the evening. Wait ONE hour. Take TWO 100mg capsule(s) Lomustine by mouth for a total dose of 200mg. Take one 8 mg Zofran twenty-four hours later. Take on Day 1 of each 42 day cycle. - ondansetron (ZOFRAN) 8 mg tablet Take one tablet by mouth on an empty stomach in the evening one hour prior to chemo. Then take one tablet 24 hours after chemo. May repeat dose every 8-12 hours if needed to prevent nausea - midazolam (NAYZILAM) 5 mg/spray (0.1 mL) nasal spray Use 1 [place] in the nose as needed for up to 10 days. May repeat dose in alternate nostril after 10 minutes based on response and tolerability. - sennosides (SENNA ORAL) Take by mouth. - acetaminophen (TYLENOL) 325 mg tablet 2 tablets by ORAL/FEEDING TUBE route every 4 hours as needed for pain. Problem List As Of Date 10/20/2024 Noted Resolved Chest pain [R07.9] 04/25/2010 05/26/2024 Brain mass [G93.89] 03/17/2023 11/17/2023 Obesity, Class I, BMI 30-34.9 [E66.811] 03/17/2023 Brain compression (HCC) [G93.5] 03/20/2023 S/P brain surgery [Z98.890] 03/20/2023 11/17/2023 At risk for seizures [Z91.89] 03/20/2023 Cerebral edema (HCC) [G93.6] 03/20/2023 GBM (glioblastoma multiforme) (HCC) [C71.9] 04/07/2023 Syncope, unspecified syncope type [R55] 11/01/2023 11/03/2023 Examination of participant in clinical trial [Z*11/05/2023 11/17/2023 Forehead pain [R51.9] 11/05/2023 PONV (postoperative nausea and vomiting) [R11.2*05/26/2024 Acute post-operative pain [G89.18] 05/29/2024 Thrombocytopenia (HCC) [D69.6] 10/13/2024 Encounter Status:Closed by ESME COOK on 10/20/24 PROGRESS Observed: 10/18/2024 3:51 PM Status: COMPLETED Source: [facility] HNO ID: [id number] Author: TONA COBOS, RN Service: ? Author Type: Registered Nurse Type: Progress Notes Filed: 10/18/2024 15:55 Note Text: N-plate injections scheduled weekly. First injection was done on 10/17 Labs on 10/20/24- If platelets have recovered, per Dr Fraire he can start Lomustine. Cancel injection for 10/24/24 ONLY -Needs repeat labs on 10/27 to determine if he needs injection on 10/31 or if injections can be canceled. Dr Fraire will make decision after labs. Patient has his lomustine Cycle #2 ended on 10/17/24 PLTs on 10/13 were 76K Tona Cobos, RN, BSN Banking Supervisor [facility] PROGRESS Observed: 10/13/2024 3:00 PM Status: COMPLETED Source: [facility] HNO ID: [id number] Author: TONA COBOS RN Service: ? Author Type: Registered Nurse Type: Progress Notes Filed: 11/07/2024 10:11 Note Text: Glioblastoma follow up L temporal mass resection 03/19/2023- Not hypermethylated L temporal mass re-do resection 05/27/24 Stupp 04/20-05/29/23 Enrolled in [facility] 1319 until progression in February 2024 Currently on Lomustine 90,g/m2 Cycle #2 09/05-10/17/[address] Evans 09/23/24 MRI brain 10/13/23 NEEDS CHEMO LABS repeated- PLT 87K on 10/05 CNOV Observed: 10/13/2024 3:00 PM Status: COMPLETED Source: [facility] Office Visit (NSCAMN) ANGEL KEATING ([id number]) 1970 M Date Time Provider Department 10/13/24 3:00 PM PATRICIA ENRIQUEZ NSCAMN During your visit today, we recorded the following information about you: Temperature Pulse Respiration Blood pressure 98.5 degrees 75/minute 18/minute 145/88 Weight 99.8 kg Tanvi Stewart MA 11/07/2024 10:11 AM Signed Additional intake questions: Has the patient had fever, nausea, vomiting, diarrhea, constipation, fatigue for > 1 week? Yes, fatigue Does the patient have a decreased appetite? No Does patient want to see a Outside Solar Sales Consultant? No (yes to any of above refer patient to schedulers for dietitian appointment) ) Does patient have any new or increased numbness or tingling of extremities? No Is patient interested in fertility information? No Does patient need any prescription refills? No Does patient have an advanced directive in place? Yes, copies are in Epic Electronically Signed By: SALEEM Ohara Alejandro, MD 11/07/2024 10:11 AM Signed [facility] Follow up Clinic visit B BT Team: -Jose Evans MD, Neurosurgery -SAV Rodriguez, Radiation Oncology -Patricia Enriquez MD, Neuro-Oncology DIAGNOSIS: MGMT unmethylated Glioblastoma. 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 He initially presented with anxiety-attack like episodes going back to January 2023 as well as a fall, without loss of consciousness but +trauma to head around 02/27/2023. On 03/16/2023, he presented to [facility] [place] ED with word finding difficulty, report of one-time fever of 101 in February, anxiety, increased thirst and urination and was found to have a L temporal mass with midline subfalcine shift concerning for high grade glioma. He was afebrile with normal glucose level and electrolytes. He underwent gross total resection by Dr. Evans on 03/19/2023, revealing an MGMT unmethylated glioblastoma, WHO Grade 4. He was discharged on keppra 750mg BID and dexamethasone taper. He established care with Dr. Enriquez and given paroxysmal episodes of anxiety, he was concerned about temporal lobe epilepsy and advised lifelong AED to reduce seizure risk. The patient was exhibiting some fatigue and dullness, so a cross taper from keppra to vimpat, with goal of vimpat 150mg BID. The patient expressed interest in clinical trials and enrolled onto [facility] AGILE. He was randomized to the [id number] arm (cyclic peptide modulating tumor microenvironment). TREATMENT HISTORY Gross total resection [03/19/2023] [facility] Dr. Evans MGMT unmethylated Glioblastoma. L temporal GCAR AGILE, randomized to [id number] IV twice weekly arm + Standard concurrent chemotherapy and radiation (04/20- 05/29/2023) [facility] Dr. Joyce and Dr. Enriquez Adjuvant temozolomide PO D1-5 q 28 days C1 07/01/23, will start 07/03 150mg/m2 C2 07/27/23 C3 08/31/23 C4 09/21/23 C5 10/26/23 C6 11/23/23 C7 12/28/23 STOP ADJ TMZ as the clinical; trial calls for up to 6 cycles. For some reason the patient had an extra cycle of Adj TMZ. Adjuvant [id number] during Maintenance: Cycle 7 Week 1 - infusions on 12/14/2023 (D1) and 12/17/2023 (D4) Cycle 7 Week 2 - infusions on 12/21/2023 (D8) and 12/24/2023 (D11) Cycle 7 Week 3 - infusions on 12/28/2023 (D15) and 12/31/2023 (D18) Cycle 7 Week 4 - infusions on 01/05/2024 (D22) and 01/08/2024 (D25) Cycle 8 Week 5 - infusions on 01/11/2024 and 01/14/2024 02/08/2024: MRI shows progression 02/08/24 BTB Referrals to se Dr. Evans for possible surgery. If surgery offered, he can be enrolled in CASE 3322 clinical trial with methimazole + chemo. 02/18/24: Dr Evans recommended NO surgery. 02/26/24 Lomustine 90mg/m2 C#1 02/25-04/08/24 04/12/24 Tumor progression, increased CBV 04/14/2024 BTB Referrals to se Dr. Evans for possible surgery. The patient is also eligible, for CASE 3322 clinical trial with methimazole + chemo. 04/28/2024 Jose Evans MD since the patient, and recommended surgery. 04/28/2024 clinical trials team, saw the patient, the patient is eligible, for for CASE 3322 clinical trial with methimazole + chemo. Patient signed consent. Treatment plan: Pre-operative treatment Phase -Methimazole - Pre-Op period: 05/24/2024 to 05/27/2024 (last dose is DAY of surgery) -Dose level 2 (25 mg daily) Surgical resection 05/27/[address] 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 C1D1 (10-28 days after surgery) -Scheduled for 06/16/2024 (20 days post op) -Methimazole - Post-Op period: 05/27/2024- TBD -Dose level 2 (25 mg judy C1D1 lomustine 110 mg/m2 - 07/28/24 - NOTE DATE ENTERED IN ERROR - PATIENT DID NOT TAKE CHEMO ON 08/07/2024 C2D1 lomustine -- planned for 09/07/24 08/22/2024 Brain MR - new enhancing nodules. CORRECTED DATES OF CHEMO: C1D1 JUN 28, 2024 09/05/2024 NOTE: RE; DISCREPANCY ON LOMUSTINE CYCLE. The patient recalled that he had taken Lomustine cycle No 1 [after 2nd surgery (05/27/2024)] on ~mid June 2024 and that he was due for cycle No 2 for early August 2024 We reviewed the pharmacy records and indeed the patient took cycle No 1 of Lomustine on 06/28/25, and he was due for next cycle on ~Aug 12, 2024. Pharmacy note confirm that lomustine was delivered. Although per patient knowledge that he needed to start his chemo, cycle No 2 of lomustine on 1st week of Aug 2024 - however he did not started as he was instructed that the chemo was to start not until Sep 07, 2024. Hence the patient had not started his chemo. 09/05/2024: The patient brought lomustine capsules, cycle No 2, as he noted - issued on 08/05/2024 - which should have started on Aug 12, 2024. The reason for the discrepancy - likely entry data error of when he took cycle No 1 of lomustine - erroneously was entered as 07/28/2025. Lomustine 90mg/m2 C#2 09/05-10/17/24 10/12/2024 MRI BRAIN WO/W Foci of nodular enhancement along the left temporal resection cavity are similar compared to 09/19/2024 (increased compared to 08/22/2024). Increased nonenhancing T2/FLAIR hyperintensity within the left temporal lobe compared to 08/22/2024. October 13, 2024 In person visit. The patient is accompanied by mother Today visit is for follow up. No issues, no seizures feels well. - ==== Important events the patient would hope to attend: November 28 son's graduation Daughter graduates college December 10. Late Apr 29- youngest step daughter - ===== Last Chemo: see above Current Steroids dose: N/A Current AED Dose: lacosamide (VIMPAT) 150 mg tab Take 1 tablet by mouth two times a day. 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 Evans; path = GBM ORTHOPEDICS SURGERY HX 1996 knee surgery SHX CRANIOTOMY Left 03/19/2023 Family History: FAMILY HISTORY Problem Relation Age of Onset Diabetes Father Coronary Artery Disease Father Stroke Father Breast Cancer Mother None Sister Anesthesia Problems No Family History Social History Tobacco Use Smoking status: Former Current packs/day: 1.00 Average packs/day: 1 pack/day for 4.0 years (4.0 ttl pk-yrs) Types: Cigarettes, Cigars Smokeless tobacco: Never Vaping Use Vaping status: Never Used Substance Use Topics Alcohol use: Not Currently Comment: three beers a month - per pt [id number] Drug use: Never Allergies: Patient has no known allergies. Current Outpatient Medications Medication Sig lacosamide (VIMPAT) 150 mg tab Take 1 tablet by mouth two times a day. iv contrast (will be provided with radiology test) MRI Brain Inject, intravenously, once for 1 dose.No IV access, insert saline lock prior to beginning of sedation, infusion, injection of imaging exam.Discontinue saline lock post exam. If Pt. has a central line or IVAD, may access for administration according to line specific nursing protocol.Once exam is complete flush line and de-access according to line specific nursing protocol in the MR contrast administration guidelines link iv contrast (will be provided with radiology test) MRI Brain Inject, intravenously, once for 1 dose.No IV access, insert saline lock prior to beginning of sedation, infusion, injection of imaging exam.Discontinue saline lock post exam. If Pt. has a central line or IVAD, may access for administration according to line specific nursing protocol.Once exam is complete flush line and de-access according to line specific nursing protocol in the MR contrast administration guidelines link meclizine (ANTIVERT) 25 mg tab Take 1 tablet by mouth three times a day. valACYclovir (VALTREX) 1 gram tablet Take 1,000 mg by mouth three times a day. ondansetron (ZOFRAN) 8 mg tablet Take one hour prior to temozolomide prescription then every 8 hours as needed for nausea. temozolomide (TEMODAR) 180 mg capsule Fast for one hour after taking Zofran and then take ONE 180 mg capsule, plus ONE 140 mg and TWO 5 mg capsules to total 330 mg. Then, fast for one hour after taking. Take on days 1-5 of your 28 day cycle. Temozolomide 140 mg capsule Fast for one hour after taking Zofran and then take ONE 180 mg capsule, plus ONE 140 mg and TWO 5 mg capsules to total 330 mg. Then, fast for one hour after taking. Take on days 1-5 of your 28 day cycle. temozolomide (TEMODAR) 5 mg capsule Fast for one hour after taking Zofran and then take ONE 180 mg capsule, plus ONE 140 mg and TWO 5 mg capsules to total 330 mg. Then, fast for one hour after taking. Take on days 1-5 of your 28 day cycle. ondansetron (ZOFRAN) 8 mg tablet Take 1 tablet (8 mg) by mouth one hour before taking temozolomide dosing. Take on an empty stomach (Patient taking differently: Take 1 tablet (8 mg) by mouth one hour before taking temozolomide dosing. Take on an empty stomach) sennosides (SENNA ORAL) Take by mouth. DIETARY SUPPLEMENT,[facility] COMB14 ORAL Take by mouth. Biomega 1000mg containing vitamin E and pure anchovy medical supply, [facility] ([employer]Y [facility]) Neurotrophin acetaminophen (TYLENOL) 325 mg tablet 2 tablets by ORAL/FEEDING TUBE route every 4 hours as needed for pain. pantoprazole DR (PROTONIX) 20 mg tablet Take 1 tablet by mouth DAILY (6 AM). midazolam (NAYZILAM) 5 mg/spray (0.1 mL) nasal spray Use 1 [place] in the nose as needed for up to 10 days. May repeat dose in alternate nostril after 10 minutes based on response and tolerability. No current facility-administered medications for this visit. Review of systems: Constitutional: No recent fever or weight loss. Eyes: No history of glaucoma or cataracts. ENMT: No recent ear infection, nasal congestion, mouth sores or sore throat. CV: No history of chest pain, palpitations or leg swelling. Respiratory: No history of SOB, asthma or recent cough. Gastrointestinal: No history of nausea, vomiting, dysphagia or abdominal pain. Genitourinary: No history of hematuria or dysuria. Musculoskeletal: No complaint of arthritis, unstable gait or arm/leg weakness. Psychiatric: No history of hallucinations or depression or anxiety. ROS Neurological: No complaint of headache. No complaint of tinnitus. No complaint of decreased hearing. No complaint of diplopia. No complaints of decreased visual acuity. No complaint of arm/leg numbness. No problem with limb coordination. No complaint of syncope, seizures or disorientation. Objective Physical Exam: BP 145/88 Pulse 75 Temp 36.9 ?C (98.5 ?F) (Oral) Resp 18 Wt 99.8 kg (220 lb 0.3 oz) SpO2 97% BMI 31.96 kg/m? GENERAL EXAM: General appearance: Well appearing, alert, in no acute distress Skin: Skin color, texture, turgor normal Oropharynx: No thrush noted. Lungs: Lungs clear to auscultation. No wheezing, rhonchi, rales Heart: RRR without murmur, gallop, or rubs. No ectopy Abdomen: Normal abdominal exam, Abdomen soft, non-tender. Bowel sounds normal. Extremities: No deformities, skin discoloration, clubbing or cyanosis. Good capillary refill, no edema to BLE. Harmony's sign negative. No pain to palpation. NEUROLOGICAL EXAM: Higher integrative functions: Oriented to person, place AND time. Attention Span and Concentration: Good. Language: Accurate naming of objects. Good comprehension. Fund of Knowledge: Good. 2nd CN: Full visual land. 3rd,4th,6th CN: Pupils equal, round, react to light, full extraocular movements. 5th CN: No decrease in facial sensation 7th CN: Facial muscles symmetric and strong. 8th CN: Hears finger rub well bilaterally. 9th CN: Gag reflex not tested 10th CN: Spontaneous palate movement, full and symmetric. 11th CN: Full strength in shoulder shrug. 12th CN: Tongue protrusion full and midline. Sensation: No decrease in sensation in upper or lower limbs to touch. Musculoskeletal: Gait steady. Tandem walk normal. Romberg negative. Motor: 5/5 RUE/RLE; 5/5 LUE/LLENormal muscle tone without atrophy in all limbs. Coordination: Rapid alternating movements LUE intact; RUE intact Reflexes: 1-2+ ALL limbs. Plantar response down going. Karnofsky performance status: 80 - Normal activity with effort, some signs or symptoms of disease. ECOG performance status: 1 - Restricted in physically strenuous activity but ambulatory and able to carry out work of a light or sedentary nature, e.g., light house work or office work. 09/08/2024 PHQ 2 and 9 Total Scores PHQ-2 Score 0 Labs: Latest Ref Rng AND Units 09/08/2024 10/05/2024 10/13/2024 CBC WBC 3.70 - 11.00 k/uL 5.38 7.52 2.99 RBC 4.20 - 6.00 m/uL 4.18 4.74 4.09 Hemoglobin 13.0 - 17.0 g/dL 13.6 15.6 13.5 Hematocrit 39.0 - 51.0 % 38.4 43.6 37.3 MCV 80.0 - 100.0 fL 91.9 92.0 91.2 MCH 26.0 - 34.0 pg 32.5 32.9 33.0 MCHC 30.5 - 36.0 g/dL 35.4 35.8 36.2 RDW-CV 11.5 - 15.0 % 14.6 13.8 13.5 Platelet Count 150 - 400 k/uL 254 87 76 MPV 9.0 - 12.7 fL 8.3 9.2 9.0 Baso% % 0.9 0.1 0.3 Abs Neut (ANC) 1.45 - 7.50 k/uL 4.02 6.26 2.18 Abs Lymph 1.00 - 4.00 k/uL 0.66 0.44 0.50 Abs Branch <0.87 k/uL 0.55 0.59 0.19 Abs Eosin <0.46 k/uL 0.09 0.19 0.11 Abs Baso <0.11 k/uL 0.05 <0.03 <0.03 NRBC /100 WBC 0.0 0.0 0.0 Latest Ref Rng AND Units 09/08/2024 10/05/2024 10/13/2024 CMP Sodium 136 - 144 mmol/L 137 132 141 Potassium 3.7 - 5.1 mmol/L 4.2 4.0 4.1 Chloride 98 - 107 mmol/L 104 100 109 CO2 22 - 30 mmol/L 25 22 23 Glucose 74 - 99 mg/dL 110 122 101 BUN 9 - 24 mg/dL 10 21 16 Creatinine 0.73 - 1.22 mg/dL 1.21 1.18 1.25 EGFR >=60 mL/min/1.73m? 71 72 68 Protein, Total 6.3 - 8.0 g/dL 6.9 7.3 6.6 Albumin 3.9 - 4.9 g/dL 3.8 4.0 3.7 Calcium 8.5 - 10.2 mg/dL 8.9 9.4 8.7 Bilirubin, Total 0.2 - 1.3 mg/dL 0.6 0.6 0.4 AST 14 - 40 U/L 11 9 12 ALT 10 - 54 U/L 9 10 12 Alkaline Phosphatase 38 - 113 U/L 121 96 87 Final Pathology: SURGICAL PATHOLOGY: [id number] Order: [id number] Collected 03/19/2023 10:24 AM Status: Edited Result - FINAL Visible to patient: Yes (not seen) Dx: Brain tumor (HCC) 0 Result Notes Component FINAL DIAGNOSIS A, B. Brain, left temporal mass, biopsy and resection: - Morphologically consistent with high grade glioma. See comment. Diagnosis Comment CARLOS stained sections reveal a hypercellular infiltrating glioma with moderate to marked nuclear pleomorphism and increased mitoses (upto 4 per 10 high per field). Pseudopalisading necrosis and microvascular proliferation are identified. Immunohistochemical stains are performed at [facility] to better classify this lesion (block B1) and show the following in neoplastic cells: IDH1 R132H: neagtive (wildtype); ATRX: retained (wildtype); BRAF V600E: negative (wildtype); p53 strong nuclear positivity in up to 40%; Ki67 proliferative index up to 25%. Addendum This addendum is rendered to report the results of the following molecular studies: Targeted Oncology Panel: The oncogenic TERT promoter alteration, c.-124C>T (also known as C228T) was detected in this specimen; MGMT promoter methylation: not hypermethylated. 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 Addendum electronically signed by Krista Snow MD on 04/03/2023 at 9:13 AM Imaging: Results MRI BRAIN WO/W IVCON (Acc#[id number]) (Order [id number]) Patient Info Patient Name Sex Angel Pickett ([id number]) Male 1970 10/12/2024 6:19 PM - Radiology, Oru In Impression IMPRESSION: Foci of nodular enhancement along the left temporal resection cavity are similar compared to 09/19/2024 (increased compared to 08/22/2024). Increased nonenhancing T2/FLAIR hyperintensity within the left temporal lobe compared to 08/22/2024. I reviewed the images with the patient and family. 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 08/22/24 MRI progressive disease 08/29/2024 BTB recommend continue on lomustine, and SRS to enhancing nodules. ACTIVE ISSUES: 1- GBM-MGMT promoter not hyper methylated. 08/22/24 MRI progressive disease -Off clinical trial: CASE 3322 clinical trial with methimazole + chemo. -Cycle No 2 of Lomustine 110 mg/M2 , dose capped 200 mg day cycle, per protocol. -Start date: 09/05/2024 -I SEEN DR. WILCOX AND WILL SEE DR. JOYCE TODAY FOR CONSIDERATION FOR SRS TO NEW ENHANCING NODULES. 8-lwoecwjrbscz-dnhnwpb nausea: -Use Zofran, prior/after chemo and as needed 3-Imaging surveillance: -Brain w and w/o contrast and perfusion - in 6 week's time from the start of cycle no 2 of lomustine. . 2A-Clinic visits: -In person visit in 6 weeks time. 3-Bone marrow suppression from chemotherapy: periodic CBC, every 6 weeks Also, CMP every 6 weeks. Other blood test, per clinical trial 4- Seizures: Since I saw him last, he has not had any events to suggest seizures (02/19/2024). -On lacosamide (Vimpat): Started on 04/05/23. Dose is 150 mg twice a day. -Lacosamide blood levels, Latest Reference Range AND Units 07/14/24 09:38 Lacosamide 2.2 - 19.8 ug/mL 10.6 Based on the above levels to continue on the same dose. 5-Seizure precautions: The patient is not to drive any motorized vehicle, and not to engage in activities that could place her or others in danger if she were to have a seizure. I also discussed the use of rescue medication for breakthrough seizures, using midazolam nasal spray (NS) to use it as needed (PRN) and discussed when to use it. I discussed the potential benefits and side effects, including tiredness, fatigue, and or sleepiness and if so, the patient is not to engage in activities that require to be fully alert. I have also provided written information for the patient's review. 6-He is to follow by her PCP for general medical care/coordination of care. 7-NOT ON STEROIDS 8-To see PCP for to define appropriate vaccinations above. 9-Potential for thromboembolism: to watch for potential DVT/Pulmonary Embolism, and if so to go to the ED/call 911. 10-End of life issues: Adv Dir in chart. -Patient discussed, this important aspect, of his diagnosis, that is, that he acknowledges, that this condition will end his life, at young age, and relatively soon and that he has goals, for the next year or so, that is, to attend, important milestones events of his children's, which will take place, in the next year or so. Currently,02/19/24 his children's are 20 and 21 years old. He has seen Dr. Lion, from palliative medicine will also give advice regarding This. 11-psychosocial issues: Patient asked, advised on how to approach, his current diagnosis and progressive disease, with his children who are 2020. We given some advice, how it could be helpful for his children to cope with his unfortunate condition. However, we recommended for him to seek attention from psychosocial oncology, and this Could be expanded to the family. He has seen Dr. Daniel Juárez from psychology and psychiatry, as well [facility] Jaclyn Guillory. 12-Hygroma on surgical site: MRI 08/22/2024 New chronic appearing subdural hemorrhage measuring 11 mm in maximal thickness overlying the left parietal convexity with approximately 2 mm rightward midline shift. Redistribution of cystic hygroma, now measuring up to 4 mm in maximal thickness and predominantly along the left frontoparietal falx. 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 He saw Dr. Wilcox/surgical team (09/08/24) to address this today 09/08/24. Also clinically there is bulging of craniotomy site, not symptomatic. Dr. Evans recommend observation. 13-Fatigue after chemo - start Provigil for fatigue, improve alertness - wakefulness. I discussed potential benefits and side effects. I am seeing the patient in collaboration with Tona Cobos RN [facility] Banking Supervisor PLAN 10/13/2024: -Nplate for chemotherapy induced thrombocytopenia.' -Check CBC in a week's time. -Go on next lomustine cycle No 3: 90 mg/M2 once PLT are above 100K, and also other CBC/CMP parameters are optimal. -Date to start: 10/21-12/02/24 -MRI brain w and w/o and perfusion in 6 weeks times. MRI's to be done at [facility]. In the end the patient and family verbalized understanding of the above, they had questions which I believe I answered to their satisfaction and agreed with these recommendations and had no further questions or concerns for the moment, but I encourage them to call the [facility] with any questions or concerns. I spent a total of 40 minutes on the date of the service which included preparing to see the patient, at least 50% of [id number] patient care, completing clinical documentation, obtaining and/or reviewing separately obtained history, performing a medically appropriate examination, counseling and educating the patient/family/caregiver, ordering medications, tests, or procedures, communicating with other HCPs (not separately reported), independently interpreting results (not separately reported), communicating results to the patient/family/caregiver and care coordination (not separately reported). High MDM. Patricia Enriquez MD [facility] Patient Care Team: -Jose Evans MD, Neurosurgery, [facility], [facility] Cyndee Joyce MD, PhD, Radiation Oncology, [facility], [facility]. Jaclyn Guillory LSW as Pull Worker (Hematology/Oncology) Soraida Simmons, VAZQUEZ (Hospice AND Palliative Medicine) Willy Lion MD (Hospice AND Palliative Medicine) Rupa Khoury APRN.EDSON (Hospice AND Palliative Medicine) Daniel Juárez PSYD, Psychology, [facility] Tona Cobos, VAZQUEZ 11/07/2024 10:11 AM Signed Glioblastoma follow up L temporal mass resection 03/19/2023- Not hypermethylated L temporal mass re-do resection 05/27/24 [place] 04/20-05/29/23 Enrolled in [facility] 1319 until progression in February 2024 Currently on Lomustine 90,g/m2 Cycle #2 09/05-10/17/[address] Evans 09/23/24 MRI brain 10/13/23 NEEDS CHEMO LABS repeated- PLT 87K on 10/05 Referring Provider: PATRICIA ENRIQUEZ [[id number]] Allergies As of Date: 10/13/2024 (No Known Allergies) Date Reviewed: 10/13/2024 Reviewed by: Tanvi Stewart MA - Fully Assessed Reason for Visit: Established Patient [175] Primary Visit Diagnosis:Prophylaxis for chemotherapy-induced neutropenia [Z76.89] Other Visit Diagnosis:Herpes zoster with complication [B02.8] Order(s):valACYclovir (VALTREX) 500 mg tabletTake 1 tablet by mouth once daily.Disp: 90 tabletRfl: 0 Prescriptions as of 11/07/2024 - valACYclovir (VALTREX) 500 mg tablet Take 1 tablet by mouth once daily. - traZODone (DESYREL) 50 mg tablet Take 1 tablet by mouth daily at bedtime. - lacosamide (VIMPAT) 150 mg tab Take 1 tablet by mouth two times a day. - lomustine (GLEOSTINE) 100 mg capsule Take one 8mg Zofran on an empty stomach in the evening. Wait ONE hour. Take TWO 100mg capsule(s) Lomustine by mouth for a total dose of 200mg. Take one 8 mg Zofran twenty-four hours later. Take on Day 1 of each 42 day cycle. - ondansetron (ZOFRAN) 8 mg tablet Take one tablet by mouth on an empty stomach in the evening one hour prior to chemo. Then take one tablet 24 hours after chemo. May repeat dose every 8-12 hours if needed to prevent nausea - midazolam (NAYZILAM) 5 mg/spray (0.1 mL) nasal spray Use 1 [place] in the nose as needed for up to 10 days. May repeat dose in alternate nostril after 10 minutes based on response and tolerability. - sennosides (SENNA ORAL) Take by mouth. - acetaminophen (TYLENOL) 325 mg tablet 2 tablets by ORAL/FEEDING TUBE route every 4 hours as needed for pain. Problem List As Of Date 10/13/2024 Noted Resolved Chest pain [R07.9] 04/25/2010 05/26/2024 Brain mass [G93.89] 03/17/2023 11/17/2023 Obesity, Class I, BMI 30-34.9 [E66.811] 03/17/2023 Brain compression (HCC) [G93.5] 03/20/2023 S/P brain surgery [Z98.890] 03/20/2023 11/17/2023 At risk for seizures [Z91.89] 03/20/2023 Cerebral edema (HCC) [G93.6] 03/20/2023 GBM (glioblastoma multiforme) (HCC) [C71.9] 04/07/2023 Syncope, unspecified syncope type [R55] 11/01/2023 11/03/2023 Examination of participant in clinical trial [Z*11/05/2023 11/17/2023 Forehead pain [R51.9] 11/05/2023 PONV (postoperative nausea and vomiting) [R11.2*05/26/2024 Acute post-operative pain [G89.18] 05/29/2024 Thrombocytopenia [D69.6] 10/13/2024 Prescriptions ordered this encounter Disp Refills Start End VALACYCLOVIR 500 MG TABLET 90 t* 0 10/13/2024 01/11/2025 Route: ORAL Sig: Take 1 tablet by mouth once daily. Medications Discontinued During This Encounter Prescriptions - dexAMETHasone (DECADRON) 2 mg tablet (Discontinued) Reported on 10/13/2024 - modafinil (PROVIGIL) 100 mg tablet (Discontinued) Reported on 10/13/2024 - DIETARY SUPPLEMENT,MISC COMB14 ORAL (Discontinued) Reported on 08/12/2024 - famotidine (PEPCID) 20 mg tablet (Discontinued) Reported on 10/13/2024 - medical supply, miscellaneous (MISCELLANEOUS MEDICAL SUPPLY MISC) (Discontinued) Neurotrophin - methIMAzole (TAPAZOLE) 10 mg tablet (Discontinued) Reported on 09/08/2024 - methIMAzole (TAPAZOLE) 5 mg tablet (Discontinued) Reported on 09/08/2024 - valACYclovir (VALTREX) 1 gram tablet (Discontinued) Reported on 08/22/2024 Encounter Status:Closed by PATRICIA ENRIQUEZ on 11/07/24 PROGRESS Observed: 10/13/2024 2:59 PM Status: COMPLETED Source: [facility] HNO ID: [id number] Author: PATRICIA ENRIQUEZ MD Service: ? Author Type: Physician Type: Progress Notes Filed: 11/07/2024 10:11 Note Text: [facility] Follow up Clinic visit B BT Team: -Jose Evans MD, Neurosurgery -SAV Rodriguez, Radiation Oncology -Patricia Enriquez MD, Neuro-Oncology DIAGNOSIS: MGMT unmethylated Glioblastoma. 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 He initially presented with anxiety-attack like episodes going back to January 2023 as well as a fall, without loss of consciousness but +trauma to head around 02/27/2023. On 03/16/2023, he presented to [facility] [place] ED with word finding difficulty, report of one-time fever of 101 in February, anxiety, increased thirst and urination and was found to have a L temporal mass with midline subfalcine shift concerning for high grade glioma. He was afebrile with normal glucose level and electrolytes. He underwent gross total resection by Dr. Evans on 03/19/2023, revealing an MGMT unmethylated glioblastoma, WHO Grade 4. He was discharged on keppra 750mg BID and dexamethasone taper. He established care with Dr. Enriquez and given paroxysmal episodes of anxiety, he was concerned about temporal lobe epilepsy and advised lifelong AED to reduce seizure risk. The patient was exhibiting some fatigue and dullness, so a cross taper from keppra to vimpat, with goal of vimpat 150mg BID. The patient expressed interest in clinical trials and enrolled onto [facility] AGILE. He was randomized to the [id number] arm (cyclic peptide modulating tumor microenvironment). TREATMENT HISTORY Gross total resection [03/19/2023] [facility] Dr. Evans MGMT unmethylated Glioblastoma. L temporal GCAR AGILE, randomized to [id number] IV twice weekly arm + Standard concurrent chemotherapy and radiation (04/20- 05/29/2023) [facility] Dr. Joyce and Dr. Enriquez Adjuvant temozolomide PO D1-5 q 28 days C1 07/01/23, will start 07/03 150mg/m2 C2 07/27/23 C3 08/31/23 C4 09/21/23 C5 10/26/23 C6 11/23/23 C7 12/28/23 STOP ADJ TMZ as the clinical; trial calls for up to 6 cycles. For some reason the patient had an extra cycle of Adj TMZ. Adjuvant [id number] during Maintenance: Cycle 7 Week 1 - infusions on 12/14/2023 (D1) and 12/17/2023 (D4) Cycle 7 Week 2 - infusions on 12/21/2023 (D8) and 12/24/2023 (D11) Cycle 7 Week 3 - infusions on 12/28/2023 (D15) and 12/31/2023 (D18) Cycle 7 Week 4 - infusions on 01/05/2024 (D22) and 01/08/2024 (D25) Cycle 8 Week 5 - infusions on 01/11/2024 and 01/14/2024 02/08/2024: MRI shows progression 02/08/24 BTB Referrals to se Dr. Evans for possible surgery. If surgery offered, he can be enrolled in CASE 3322 clinical trial with methimazole + chemo. 02/18/24: Dr Evans recommended NO surgery. 02/26/24 Lomustine 90mg/m2 C#1 02/25-04/08/24 04/12/24 Tumor progression, increased CBV 04/14/2024 BTB Referrals to se Dr. Evans for possible surgery. The patient is also eligible, for CASE 3322 clinical trial with methimazole + chemo. 04/28/2024 Jose Evans MD since the patient, and recommended surgery. 04/28/2024 clinical trials team, saw the patient, the patient is eligible, for for CASE 3322 clinical trial with methimazole + chemo. Patient signed consent. Treatment plan: Pre-operative treatment Phase -Methimazole - Pre-Op period: 05/24/2024 to 05/27/2024 (last dose is DAY of surgery) -Dose level 2 (25 mg daily) Surgical resection 05/27/[address] 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 C1D1 (10-28 days after surgery) -Scheduled for 06/16/2024 (20 days post op) -Methimazole - Post-Op period: 05/27/2024- TBD -Dose level 2 (25 mg judy C1D1 lomustine 110 mg/m2 - 07/28/24 - NOTE DATE ENTERED IN ERROR - PATIENT DID NOT TAKE CHEMO ON 08/07/2024 C2D1 lomustine -- planned for 09/07/24 08/22/2024 Brain MR - new enhancing nodules. CORRECTED DATES OF CHEMO: C1D1 JUN 28, 2024 09/05/2024 NOTE: RE; DISCREPANCY ON LOMUSTINE CYCLE. The patient recalled that he had taken Lomustine cycle No 1 [after 2nd surgery (05/27/2024)] on ~mid June 2024 and that he was due for cycle No 2 for early August 2024 We reviewed the pharmacy records and indeed the patient took cycle No 1 of Lomustine on 06/28/25, and he was due for next cycle on ~Aug 12, 2024. Pharmacy note confirm that lomustine was delivered. Although per patient knowledge that he needed to start his chemo, cycle No 2 of lomustine on 1st week of Aug 2024 - however he did not started as he was instructed that the chemo was to start not until Sep 07, 2024. Hence the patient had not started his chemo. 09/05/2024: The patient brought lomustine capsules, cycle No 2, as he noted - issued on 08/05/2024 - which should have started on Aug 12, 2024. The reason for the discrepancy - likely entry data error of when he took cycle No 1 of lomustine - erroneously was entered as 07/28/2025. Lomustine 90mg/m2 C#2 09/05-10/17/24 10/12/2024 MRI BRAIN WO/W Foci of nodular enhancement along the left temporal resection cavity are similar compared to 09/19/2024 (increased compared to 08/22/2024). Increased nonenhancing T2/FLAIR hyperintensity within the left temporal lobe compared to 08/22/2024. October 13, 2024 In person visit. The patient is accompanied by mother Today visit is for follow up. No issues, no seizures feels well. === Important events the patient would hope to attend: November 28 son's graduation Daughter graduates college December 10. Late Apr 29- youngest step daughter ==== Last Chemo: see above Current Steroids dose: N/A Current AED Dose: lacosamide (VIMPAT) 150 mg tab Take 1 tablet by mouth two times a day. 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 Evans; path = GBM ORTHOPEDICS SURGERY HX 1996 knee surgery SHX CRANIOTOMY Left 03/19/2023 Family History: FAMILY HISTORY Problem Relation Age of Onset Diabetes Father Coronary Artery Disease Father Stroke Father Breast Cancer Mother None Sister Anesthesia Problems No Family History Social History Tobacco Use Smoking status: Former Current packs/day: 1.00 Average packs/day: 1 pack/day for 4.0 years (4.0 ttl pk-yrs) Types: Cigarettes, Cigars Smokeless tobacco: Never Vaping Use Vaping status: Never Used Substance Use Topics Alcohol use: Not Currently Comment: three beers a month - per pt [id number] Drug use: Never Allergies: Patient has no known allergies. Current Outpatient Medications Medication Sig lacosamide (VIMPAT) 150 mg tab Take 1 tablet by mouth two times a day. iv contrast (will be provided with radiology test) MRI Brain Inject, intravenously, once for 1 dose.No IV access, insert saline lock prior to beginning of sedation, infusion, injection of imaging exam.Discontinue saline lock post exam. If Pt. has a central line or IVAD, may access for administration according to line specific nursing protocol.Once exam is complete flush line and de-access according to line specific nursing protocol in the MR contrast administration guidelines link iv contrast (will be provided with radiology test) MRI Brain Inject, intravenously, once for 1 dose.No IV access, insert saline lock prior to beginning of sedation, infusion, injection of imaging exam.Discontinue saline lock post exam. If Pt. has a central line or IVAD, may access for administration according to line specific nursing protocol.Once exam is complete flush line and de-access according to line specific nursing protocol in the MR contrast administration guidelines link meclizine (ANTIVERT) 25 mg tab Take 1 tablet by mouth three times a day. valACYclovir (VALTREX) 1 gram tablet Take 1,000 mg by mouth three times a day. ondansetron (ZOFRAN) 8 mg tablet Take one hour prior to temozolomide prescription then every 8 hours as needed for nausea. temozolomide (TEMODAR) 180 mg capsule Fast for one hour after taking Zofran and then take ONE 180 mg capsule, plus ONE 140 mg and TWO 5 mg capsules to total 330 mg. Then, fast for one hour after taking. Take on days 1-5 of your 28 day cycle. Temozolomide 140 mg capsule Fast for one hour after taking Zofran and then take ONE 180 mg capsule, plus ONE 140 mg and TWO 5 mg capsules to total 330 mg. Then, fast for one hour after taking. Take on days 1-5 of your 28 day cycle. temozolomide (TEMODAR) 5 mg capsule Fast for one hour after taking Zofran and then take ONE 180 mg capsule, plus ONE 140 mg and TWO 5 mg capsules to total 330 mg. Then, fast for one hour after taking. Take on days 1-5 of your 28 day cycle. ondansetron (ZOFRAN) 8 mg tablet Take 1 tablet (8 mg) by mouth one hour before taking temozolomide dosing. Take on an empty stomach (Patient taking differently: Take 1 tablet (8 mg) by mouth one hour before taking temozolomide dosing. Take on an empty stomach) sennosides (SENNA ORAL) Take by mouth. DIETARY SUPPLEMENT,[facility] COMB14 ORAL Take by mouth. Biomega 1000mg containing vitamin E and pure anchovy medical supply, miscellaneous ([employer] MEDICAL SUPPLY [facility]) Neurotrophin acetaminophen (TYLENOL) 325 mg tablet 2 tablets by ORAL/FEEDING TUBE route every 4 hours as needed for pain. pantoprazole DR (PROTONIX) 20 mg tablet Take 1 tablet by mouth DAILY (6 AM). midazolam (NAYZILAM) 5 mg/spray (0.1 mL) nasal spray Use 1 [place] in the nose as needed for up to 10 days. May repeat dose in alternate nostril after 10 minutes based on response and tolerability. No current facility-administered medications for this visit. Review of systems: Constitutional: No recent fever or weight loss. Eyes: No history of glaucoma or cataracts. ENMT: No recent ear infection, nasal congestion, mouth sores or sore throat. CV: No history of chest pain, palpitations or leg swelling. Respiratory: No history of SOB, asthma or recent cough. Gastrointestinal: No history of nausea, vomiting, dysphagia or abdominal pain. Genitourinary: No history of hematuria or dysuria. Musculoskeletal: No complaint of arthritis, unstable gait or arm/leg weakness. Psychiatric: No history of hallucinations or depression or anxiety. ROS Neurological: No complaint of headache. No complaint of tinnitus. No complaint of decreased hearing. No complaint of diplopia. No complaints of decreased visual acuity. No complaint of arm/leg numbness. No problem with limb coordination. No complaint of syncope, seizures or disorientation. Objective Physical Exam: BP 145/88 Pulse 75 Temp 36.9 ?C (98.5 ?F) (Oral) Resp 18 Wt 99.8 kg (220 lb 0.3 oz) SpO2 97% BMI 31.96 kg/m? GENERAL EXAM: General appearance: Well appearing, alert, in no acute distress Skin: Skin color, texture, turgor normal Oropharynx: No thrush noted. Lungs: Lungs clear to auscultation. No wheezing, rhonchi, rales Heart: RRR without murmur, gallop, or rubs. No ectopy Abdomen: Normal abdominal exam, Abdomen soft, non-tender. Bowel sounds normal. Extremities: No deformities, skin discoloration, clubbing or cyanosis. Good capillary refill, no edema to BLE. Harmony's sign negative. No pain to palpation. NEUROLOGICAL EXAM: Higher integrative functions: Oriented to person, place AND time. Attention Span and Concentration: Good. Language: Accurate naming of objects. Good comprehension. Fund of Knowledge: Good. 2nd CN: Full visual land. 3rd,4th,6th CN: Pupils equal, round, react to light, full extraocular movements. 5th CN: No decrease in facial sensation 7th CN: Facial muscles symmetric and strong. 8th CN: Hears finger rub well bilaterally. 9th CN: Gag reflex not tested 10th CN: Spontaneous palate movement, full and symmetric. 11th CN: Full strength in shoulder shrug. 12th CN: Tongue protrusion full and midline. Sensation: No decrease in sensation in upper or lower limbs to touch. Musculoskeletal: Gait steady. Tandem walk normal. Romberg negative. Motor: 5/5 RUE/RLE; 5/5 LUE/LLENormal muscle tone without atrophy in all limbs. Coordination: Rapid alternating movements LUE intact; RUE intact Reflexes: 1-2+ ALL limbs. Plantar response down going. Karnofsky performance status: 80 - Normal activity with effort, some signs or symptoms of disease. ECOG performance status: 1 - Restricted in physically strenuous activity but ambulatory and able to carry out work of a light or sedentary nature, e.g., light house work or office work. 09/08/2024 PHQ 2 and 9 Total Scores PHQ-2 Score 0 Labs: Latest Ref Rng AND Units 09/08/2024 10/05/2024 10/13/2024 CBC WBC 3.70 - 11.00 k/uL 5.38 7.52 2.99 RBC 4.20 - 6.00 m/uL 4.18 4.74 4.09 Hemoglobin 13.0 - 17.0 g/dL 13.6 15.6 13.5 Hematocrit 39.0 - 51.0 % 38.4 43.6 37.3 MCV 80.0 - 100.0 fL 91.9 92.0 91.2 MCH 26.0 - 34.0 pg 32.5 32.9 33.0 MCHC 30.5 - 36.0 g/dL 35.4 35.8 36.2 RDW-CV 11.5 - 15.0 % 14.6 13.8 13.5 Platelet Count 150 - 400 k/uL 254 87 76 MPV 9.0 - 12.7 fL 8.3 9.2 9.0 Baso% % 0.9 0.1 0.3 Abs Neut (ANC) 1.45 - 7.50 k/uL 4.02 6.26 2.18 Abs Lymph 1.00 - 4.00 k/uL 0.66 0.44 0.50 Abs Branch <0.87 k/uL 0.55 0.59 0.19 Abs Eosin <0.46 k/uL 0.09 0.19 0.11 Abs Baso <0.11 k/uL 0.05 <0.03 <0.03 NRBC /100 WBC 0.0 0.0 0.0 Latest Ref Rng AND Units 09/08/2024 10/05/2024 10/13/2024 CMP Sodium 136 - 144 mmol/L 137 132 141 Potassium 3.7 - 5.1 mmol/L 4.2 4.0 4.1 Chloride 98 - 107 mmol/L 104 100 109 CO2 22 - 30 mmol/L 25 22 23 Glucose 74 - 99 mg/dL 110 122 101 BUN 9 - 24 mg/dL 10 21 16 Creatinine 0.73 - 1.22 mg/dL 1.21 1.18 1.25 EGFR >=60 mL/min/1.73m? 71 72 68 Protein, Total 6.3 - 8.0 g/dL 6.9 7.3 6.6 Albumin 3.9 - 4.9 g/dL 3.8 4.0 3.7 Calcium 8.5 - 10.2 mg/dL 8.9 9.4 8.7 Bilirubin, Total 0.2 - 1.3 mg/dL 0.6 0.6 0.4 AST 14 - 40 U/L 11 9 12 ALT 10 - 54 U/L 9 10 12 Alkaline Phosphatase 38 - 113 U/L 121 96 87 Final Pathology: SURGICAL PATHOLOGY: [id number] Order: [id number] Collected 03/19/2023 10:24 AM Status: Edited Result - FINAL Visible to patient: Yes (not seen) Dx: Brain tumor (HCC) 0 Result Notes Component FINAL DIAGNOSIS A, B. Brain, left temporal mass, biopsy and resection: - Morphologically consistent with high grade glioma. See comment. Diagnosis Comment CARLOS stained sections reveal a hypercellular infiltrating glioma with moderate to marked nuclear pleomorphism and increased mitoses (upto 4 per 10 high per field). Pseudopalisading necrosis and microvascular proliferation are identified. Immunohistochemical stains are performed at [facility] to better classify this lesion (block B1) and show the following in neoplastic cells: IDH1 R132H: neagtive (wildtype); ATRX: retained (wildtype); BRAF V600E: negative (wildtype); p53 strong nuclear positivity in up to 40%; Ki67 proliferative index up to 25%. Addendum This addendum is rendered to report the results of the following molecular studies: Targeted Oncology Panel: The oncogenic TERT promoter alteration, c.-124C>T (also known as C228T) was detected in this specimen; MGMT promoter methylation: not hypermethylated. 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 Addendum electronically signed by Krista Snow MD on 04/03/2023 at 9:13 AM Imaging: Results MRI BRAIN WO/W IVCON (Acc#[id number]) (Order [id number]) Patient Info Patient Name Sex Angel Torres ([id number]) Male 1970 10/12/2024 6:19 PM - Radiology, [place] In Impression IMPRESSION: Foci of nodular enhancement along the left temporal resection cavity are similar compared to 09/19/2024 (increased compared to 08/22/2024). Increased nonenhancing T2/FLAIR hyperintensity within the left temporal lobe compared to 08/22/2024. I reviewed the images with the patient and family. 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 08/22/24 MRI progressive disease 08/29/2024 BTB recommend continue on lomustine, and SRS to enhancing nodules. ACTIVE ISSUES: 1- GBM-MGMT promoter not hyper methylated. 08/22/24 MRI progressive disease -Off clinical trial: CASE 3322 clinical trial with methimazole + chemo. -Cycle No 2 of Lomustine 110 mg/M2 , dose capped 200 mg day cycle, per protocol. -Start date: 09/05/2024 -I SEEN DR. WILCOX AND WILL SEE DR. JOYCE TODAY FOR CONSIDERATION FOR SRS TO NEW ENHANCING NODULES. 1-bxnythviboei-dgtoytx nausea: -Use Zofran, prior/after chemo and as needed 3-Imaging surveillance: -Brain w and w/o contrast and perfusion - in 6 week's time from the start of cycle no 2 of lomustine. . 2A-Clinic visits: -In person visit in 6 weeks time. 3-Bone marrow suppression from chemotherapy: periodic CBC, every 6 weeks Also, CMP every 6 weeks. Other blood test, per clinical trial 4- Seizures: Since I saw him last, he has not had any events to suggest seizures (02/19/2024). -On lacosamide (Vimpat): Started on 04/05/23. Dose is 150 mg twice a day. -Lacosamide blood levels, Latest Reference Range AND Units 07/14/24 09:38 Lacosamide 2.2 - 19.8 ug/mL 10.6 Based on the above levels to continue on the same dose. 5-Seizure precautions: The patient is not to drive any motorized vehicle, and not to engage in activities that could place her or others in danger if she were to have a seizure. I also discussed the use of rescue medication for breakthrough seizures, using midazolam nasal spray (NS) to use it as needed (PRN) and discussed when to use it. I discussed the potential benefits and side effects, including tiredness, fatigue, and or sleepiness and if so, the patient is not to engage in activities that require to be fully alert. I have also provided written information for the patient's review. 6-He is to follow by her PCP for general medical care/coordination of care. 7-NOT ON STEROIDS 8-To see PCP for to define appropriate vaccinations above. 9-Potential for thromboembolism: to watch for potential DVT/Pulmonary Embolism, and if so to go to the ED/call 911. 10-End of life issues: Adv Dir in chart. -Patient discussed, this important aspect, of his diagnosis, that is, that he acknowledges, that this condition will end his life, at young age, and relatively soon and that he has goals, for the next year or so, that is, to attend, important milestones events of his children's, which will take place, in the next year or so. Currently,02/19/24 his children's are 20 and 21 years old. He has seen Dr. Lion, from palliative medicine will also give advice regarding This. 11-psychosocial issues: Patient asked, advised on how to approach, his current diagnosis and progressive disease, with his children who are 2020. We given some advice, how it could be helpful for his children to cope with his unfortunate condition. However, we recommended for him to seek attention from psychosocial oncology, and this Could be expanded to the family. He has seen Dr. Daniel Juárez from psychology and psychiatry, as well [facility] Jaclyn Guillory. 12-Hygroma on surgical site: MRI 08/22/2024 New chronic appearing subdural hemorrhage measuring 11 mm in maximal thickness overlying the left parietal convexity with approximately 2 mm rightward midline shift. Redistribution of cystic hygroma, now measuring up to 4 mm in maximal thickness and predominantly along the left frontoparietal falx. 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 He saw Dr. Wilcox/surgical team (09/08/24) to address this today 09/08/24. Also clinically there is bulging of craniotomy site, not symptomatic. Dr. Evans recommend observation. 13-Fatigue after chemo - start Provigil for fatigue, improve alertness - wakefulness. I discussed potential benefits and side effects. I am seeing the patient in collaboration with Tona Cobos RN [facility] Banking Supervisor PLAN 10/13/2024: -Nplate for chemotherapy induced thrombocytopenia.' -Check CBC in a week's time. -Go on next lomustine cycle No 3: 90 mg/M2 once PLT are above 100K, and also other CBC/CMP parameters are optimal. -Date to start: 10/21-12/02/24 -MRI brain w and w/o and perfusion in 6 weeks times. MRI's to be done at [facility]. In the end the patient and family verbalized understanding of the above, they had questions which I believe I answered to their satisfaction and agreed with these recommendations and had no further questions or concerns for the moment, but I encourage them to call the [facility] with any questions or concerns. I spent a total of 40 minutes on the date of the service which included preparing to see the patient, at least 50% of [id number] patient care, completing clinical documentation, obtaining and/or reviewing separately obtained history, performing a medically appropriate examination, counseling and educating the patient/family/caregiver, ordering medications, tests, or procedures, communicating with other HCPs (not separately reported), independently interpreting results (not separately reported), communicating results to the patient/family/caregiver and care coordination (not separately reported). High MDM. Patricia Enriquez MD [facility] Patient Care Team: -Jose Evans MD, Neurosurgery, [facility], [facility] Cyndee Joyce MD, PhD, Radiation Oncology, [facility], [facility]. Jaclyn Guillory LSW as Pull Worker (Hematology/Oncology) Soraida Simmons, VAZQUEZ (Hospice AND Palliative Medicine) Willy Lion MD (Hospice AND Palliative Medicine) Rupa Khoury APRN.CNP (Hospice AND Palliative Medicine) Daniel Juárez PSYD, Psychology, [facility] PROGRESS Observed: 10/13/2024 2:42 PM Status: COMPLETED Source: [facility] HNO ID: [id number] Author: TANVI STEWART MA Service: ? Author Type: Camp Housekeeper Type: Progress Notes Filed: 11/07/2024 10:11 Note Text: Additional intake questions: Has the patient had fever, nausea, vomiting, diarrhea, constipation, fatigue for > 1 week? Yes, fatigue Does the patient have a decreased appetite? No Does patient want to see a Outside Solar Sales Consultant? No (yes to any of above refer patient to schedulers for dietitian appointment) ) Does patient have any new or increased numbness or tingling of extremities? No Is patient interested in fertility information? No Does patient need any prescription refills? No Does patient have an advanced directive in place? Yes, copies are in Epic Electronically Signed By: Tanvi Stewart MA COMP METAB 1999 PNL SERPL Collected: 2:05 PM Status: F Source: [facility] Order Comment: Specimen Type : BLOOD SPECIMEN Ordering Facility: [facility] Address: [address] [place] [address] TYPE CODE TESTS RESULT OUT OF RANGE REFERENCE UNITS LAB 2885-2(LOINC) Prot SerPl-mCnc 6.6 6.3-8.0 g/dL LAB 1751-7(LOINC) Albumin SerPl-mCnc 3.7 Low 3.9-4.9 g/dL LAB 08915-2(LOINC) Calcium SerPl-mCnc 8.7 8.5-10.2 mg/dL LAB 1975-2(LOINC) Bilirub SerPl-mCnc 0.4 0.2-1.3 mg/dL LAB 6768-6(LOINC) ALP SerPl-cCnc 87 38-113 U/L LAB 1920-8(LOINC) AST SerPl-cCnc 12 Low 14-40 U/L LAB 1742-6(LOINC) ALT SerPl-cCnc 12 10-54 U/L LAB 2345-7(LOINC) Glucose SerPl-mCnc 101 High 74-99 mg/dL Result Comment: The [place] Diabetes Association (ADA) provides guidance for cutoff values for fasting glucose and random glucose. The ADA defines fasting as no caloric intake for at least 8 hours. Fasting plasma glucose results between 100 to 125 mg/dL indicate increased risk for diabetes (prediabetes). Fasting plasma glucose results greater than or equal to 126 mg/dL meet the criteria for diagnosis of diabetes. In the absence of unequivocal hyperglycemia, results should be confirmed by repeat testing. In a patient with classic symptoms of hyperglycemia or hyperglycemic crisis, random plasma glucose results greater than or equal to 200 mg/dL meet the criteria for diagnosis of diabetes. Reference: Standards of Medical Care in Diabetes 2016, [place] Diabetes Association. Diabetes Care. 2016.39(Suppl 1). LAB 3094-0(LOINC) BUN SerPl-mCnc 16 9-24 mg/ dL LAB 2160-0(LOINC) Creat SerPl-mCnc 1.25 High 0.73-1.22 mg/dL LAB 2951-2(LOINC) Sodium SerPl-sCnc 141 136-144 mmol/L LAB 2823-3(LOINC) Potassium SerPl-sCnc 4.1 3.7-5.1 mmol/L LAB 2075-0(LOINC) Chloride SerPl-sCnc 109 High 98-107 mmol/L LAB 2027-9(LOINC) CO2 SerPl-sCnc 23 22-30 mmo l/L LAB 14208-0(LOINC) Anion Gap SerPl-sCnc 9 8-15 mmol/L LAB 83943-1(LOINC) Creatinine + eGFR Pnl SerPlBld 68 >=60 mL/min/1 .73m??? Result Comment: Estimated Gl omerular Filtration Rate (eGFR) is calculated using the 2020 CKD-EPI creatinine equation. This equation utilizes serum creatinine, sex, and age as parameters. The creatinine assay has traceable calibration to isotope dilution-mass spectrometry. Refer to KDIGO guidelines for clinical interpretation. In patients with unstable renal function, e.g. those with acute kidney injury, the eGFR may not accurately reflect actual GFR. Performed By: #### [id number] # ### [facility] CLIA [id number] [address] [place] [address] [place] CBC W AUTO DIFF BLD Collected: 10/13/2024 2:[address] atus: F Source: [facility] Order Comment: Specimen Type : BLOOD SPECIMEN Ordering Facility: [facility] Address: [address] [place] [address] TYPE CODE TESTS RESULT OUT OF RANGE REFERENCE UNITS LAB 6690-2(LOINC) WBC # Bld Auto 2.99 Low 3.70-11.00 k/uL LAB 789-8(LOINC) RBC # Bld Auto 4.09 Low 4.20-6.00 m/ uL LAB 718-7([facility]) Hgb Bld-mCnc 13.5 13.0-17.0 g/dL LAB 4544-3([facility]) Hct VFr Bld Auto 37.3 Low 39.0-51.0 % LAB 787-2([facility]) MCV RBC Auto 91.2 80.0-100.0 fL LAB 785-6([facility]) MCH RBC Qn Auto 33.0 26.0-34.0 p g LAB 786-4([facility]) MCHC RBC Auto-mCnc 36.2 High 30.5-36.0 g/dL LAB 87006-7([facility]) RDW RBC-Rto 13.5 11.5-15.0 % LAB 777-3([facility]) Platelet # Bld Auto 76 Low 150-400 k/uL Result Comment: No clot dete cted. LAB 10387-6([facility]) PMV Bld Auto 9.0 9.0-12.7 fL LAB 770-8([facility]) Neutrophils/leuk NFr Bld Auto 72.9 % LAB 751-8([facility]) Neutrophils # Bld Auto 2.18 1.45-7.50 k/uL LAB 736-9([facility]) Lymphocytes/leuk NFr Bld Auto 16.7 % LAB 731-0([facility]) Lymphocytes # Bld Auto 0.50 Low 1.00-4.00 k/uL LAB 5905-5([facility]) Monocytes/leuk NFr Bld Auto 6.4 % LAB 742-7([facility]) Monocytes # Bld Auto 0.19 <0.87 k/uL LAB 713-8([facility]) Eosinophil/leuk NFr Bld Auto 3.7 % LAB 711-2([facility]) Eosinophil # Bld Auto 0.11 <0.46 k/uL LAB 706-2([facility]) Basophils/leuk NFr Bld Auto 0.3 % LAB 704-7([facility]) Basophils # Bld Auto <0.03 <0.11 k/uL LAB 13781-9([facility]) Imm Granulocytes/christina k NFr Bld Auto 0.0 % LAB 07197-3(LOINC) Imm Granulocytes # Bld Auto <0.03 <0.10 k/uL LAB 70496-0(LOINC) nRBC/100 WBC Bld-Rto 0.0 /100 WBC LAB 771-6(LOINC) nRBC # Bld Auto <0.01 <0.01 k/u L LAB 63000-3(LOINC) Differential method Bld Auto Performed By: #### [id number] # ### [facility] CLIA [id number] [address] [place] [address] CNPN Observed: 10/13/2024 12:00 AM Status: COMPLETED Source: [facility] Telephone (NSCAMN) ANGEL KEATING ([id number]) 1970 M Date Time Provider Department 10/13/24 PATRICIA ENRIQUEZ NSCAMN During your visit today, we recorded the following information about you: Tona Cobos, RN 10/13/2024 4:11 PM Addendum Scheduling Request - Established Patient Time Frame: Week of 11/29- Please schedule any day after 11/29 (son's birthday)_ or of 12/05 Orders: MRI brain ok for Ronald Provider: Dr Fraire within 1-2 days of scan Visit type: In person Diagnosis: glioblastoma Catrachita Castelan Keegan 10/14/2024 8:46 AM Signed Spoke to Pt, he is scheduled and confirmed. Allergies As of Date: 10/13/2024 (No Known Allergies) Date Reviewed: 10/13/2024 Reviewed by: Tanvi Stewart MA - Fully Assessed Reason for Visit: JUANCARLOS week of 11/29/24 [Other] Prescriptions as of 10/14/2024 - valACYclovir (VALTREX) 500 mg tablet Take 1 tablet by mouth once daily. - iv contrast (will be provided with radiology test) MRI Brain Inject, intravenously, once for 1 dose.No IV access, insert saline lock prior to beginning of sedation, infusion, injection of imaging exam.Discontinue saline lock post exam. If Pt. has a central line or IVAD, may access for administration according to line specific nursing protocol.Once exam is complete flush line and de-access according to line specific nursing protocol in the MR contrast administration guidelines link - traZODone (DESYREL) 50 mg tablet Take 1 tablet by mouth daily at bedtime. - lacosamide (VIMPAT) 150 mg tab Take 1 tablet by mouth two times a day. - lomustine (GLEOSTINE) 100 mg capsule Take one 8mg Zofran on an empty stomach in the evening. Wait ONE hour. Take TWO 100mg capsule(s) Lomustine by mouth for a total dose of 200mg. Take one 8 mg Zofran twenty-four hours later. Take on Day 1 of each 42 day cycle. - ondansetron (ZOFRAN) 8 mg tablet Take one tablet by mouth on an empty stomach in the evening one hour prior to chemo. Then take one tablet 24 hours after chemo. May repeat dose every 8-12 hours if needed to prevent nausea - midazolam (NAYZILAM) 5 mg/spray (0.1 mL) nasal spray Use 1 [place] in the nose as needed for up to 10 days. May repeat dose in alternate nostril after 10 minutes based on response and tolerability. - sennosides (SENNA ORAL) Take by mouth. - acetaminophen (TYLENOL) 325 mg tablet 2 tablets by ORAL/FEEDING TUBE route every 4 hours as needed for pain. Problem List As Of Date 10/13/2024 Noted Resolved Chest pain [R07.9] 04/25/2010 05/26/2024 Brain mass [G93.89] 03/17/2023 11/17/2023 Obesity, Class I, BMI 30-34.9 [E66.811] 03/17/2023 Brain compression (HCC) [G93.5] 03/20/2023 S/P brain surgery [Z98.890] 03/20/2023 11/17/2023 At risk for seizures [Z91.89] 03/20/2023 Cerebral edema (HCC) [G93.6] 03/20/2023 GBM (glioblastoma multiforme) (HCC) [C71.9] 04/07/2023 Syncope, unspecified syncope type [R55] 11/01/2023 11/03/2023 Examination of participant in clinical trial [Z*11/05/2023 11/17/2023 Forehead pain [R51.9] 11/05/2023 PONV (postoperative nausea and vomiting) [R11.2*05/26/2024 Acute post-operative pain [G89.18] 05/29/2024 Thrombocytopenia (HCC) [D69.6] 10/13/2024 Encounter Status:Closed by CATRACHITA CASTELAN on 10/14/24 EDSONN Observed: 10/13/2024 12:00 AM Status: COMPLETED Source: [facility] Telephone (NSCAMN) ANGEL KEATING ([id number]) 1970 M Date Time Provider Department 10/13/24 PATRICIA ENRIQUEZ [facility] During your visit today, we recorded the following information about you: Tona Cobos, RN 10/13/2024 4:04 PM Signed Please schedule N plate injection weekly x 4 - Please schedule first injection for 10/17, then weekly -[facility] Dr Juno puga Glioblastoma with thrombocytopenia Thank you Tona Allergies As of Date: 10/13/2024 (No Known Allergies) Date Reviewed: 10/13/2024 Reviewed by: Tanvi Stewart MA - Fully Assessed Reason for Visit: JUANCARLOS N-Plate injection [Other] Prescriptions as of 10/18/2024 - valACYclovir (VALTREX) 500 mg tablet Take 1 tablet by mouth once daily. - traZODone (DESYREL) 50 mg tablet Take 1 tablet by mouth daily at bedtime. - lacosamide (VIMPAT) 150 mg tab Take 1 tablet by mouth two times a day. - lomustine (GLEOSTINE) 100 mg capsule Take one 8mg Zofran on an empty stomach in the evening. Wait ONE hour. Take TWO 100mg capsule(s) Lomustine by mouth for a total dose of 200mg. Take one 8 mg Zofran twenty-four hours later. Take on Day 1 of each 42 day cycle. - ondansetron (ZOFRAN) 8 mg tablet Take one tablet by mouth on an empty stomach in the evening one hour prior to chemo. Then take one tablet 24 hours after chemo. May repeat dose every 8-12 hours if needed to prevent nausea - midazolam (NAYZILAM) 5 mg/spray (0.1 mL) nasal spray Use 1 [place] in the nose as needed for up to 10 days. May repeat dose in alternate nostril after 10 minutes based on response and tolerability. - sennosides (SENNA ORAL) Take by mouth. - acetaminophen (TYLENOL) 325 mg tablet 2 tablets by ORAL/FEEDING TUBE route every 4 hours as needed for pain. Problem List As Of Date 10/13/2024 Noted Resolved Chest pain [R07.9] 04/25/2010 05/26/2024 Brain mass [G93.89] 03/17/2023 11/17/2023 Obesity, Class I, BMI 30-34.9 [E66.811] 03/17/2023 Brain compression (HCC) [G93.5] 03/20/2023 S/P brain surgery [Z98.890] 03/20/2023 11/17/2023 At risk for seizures [Z91.89] 03/20/2023 Cerebral edema (HCC) [G93.6] 03/20/2023 GBM (glioblastoma multiforme) (HCC) [C71.9] 04/07/2023 Syncope, unspecified syncope type [R55] 11/01/2023 11/03/2023 Examination of participant in clinical trial [Z*11/05/2023 11/17/2023 Forehead pain [R51.9] 11/05/2023 PONV (postoperative nausea and vomiting) [R11.2*05/26/2024 Acute post-operative pain [G89.18] 05/29/2024 Thrombocytopenia (HCC) [D69.6] 10/13/2024 Encounter Status:Closed by TONA COBOS on 10/18/24 MRI BRAIN WO/W IVCON Observed: 11:20 AM Status: F Source: [facility] * * *Final Report* * * DATE OF EXAM: Oct 12 2024 11:20AM ANA 0295 - MRI BRAIN WO/W IVCON / PROCEDURE REASON: GBM (glioblastoma multiforme) (HCC) * * * * Physician Interpretation * * * * EXAMINATION: MRI BRAIN WO/W IVCON CLINICAL HISTORY: Glioblastoma TECHNIQUE: Routine brain MRI protocol without and with contrast including diffusion images. MR perfusion study was performed of the entire brain following bolus intravenous administration of gadolinium utilizing dynamic susceptibility-weighted contrast-enhanced acquisition. Contrast: 20 mL Dotarem IV COMPARISON: MRI brain 09/19/2024 and 08/22/2024 RESULT: Acute Change: There is no evidence of restricted diffusion to suggest an acute infarct. Hemorrhage: Compared to 09/08/2024, slightly decreased size of the extra-axial collection of intrinsic T1 hyperintensity/FLAIR hyperintensity along the left frontal convexity and left anterior parafalcine region, measuring up to 7 mm in thickness (previously 9 mm). There is persistent siderosis along the margins of this collection, as well as along the left cerebral hemisphere and left anterior temporal resection site, likely postsurgical. No new or enlarging hemorrhage. Mass Lesion/ Mass Effect: Postsurgical changes related to prior left pterional craniotomy for lesion resection. Similar encephalomalacia and gliosis along the left frontotemporal resection margins with a large resection defect along the left middle cranial fossa. Compared to 09/19/2024, similar size of the 5 x 7 mm nodular enhancing focus along the anterior margin of the left temporal resection site (series 14, image 46). Similar 1.1 x 1.0 cm nodular enhancing focus along the medial aspect of the left temporal resection site. Compared to 09/08/2024, slight interval increase in nonenhancing T2/FLAIR hyperintensity along the left mesial and inferior temporal lobe. Similar nodular enhancing focus along the left tentorial leaflet, measuring 2 to 3 mm, although slightly decreased in conspicuity compared to the prior study, likely due to differences in technique. Progressive increase in heterogenously enhancing extra-axial lesions along the left anterior parafalcine region and left frontal convexity, measuring 18 x 11 and 15 x 9 mm, respectively (previously 14 x 6 mm and 14 x 10 mm on 09/19/2024; and 10 x 7 mm and 9 x 9 mm on 08/22/2024). Slight interval increase in diffuse smooth pachymeningeal enhancement along the left cerebral convexity, potentially postsurgical and/or reactive. Perfusion: MR perfusion study was performed of the entire brain following bolus intravenous administration of gadolinium utilizing dynamic susceptibility-weighted contrast-enhanced acquisition. Perfusion imaging/postprocessing is of adequate quality. Suboptimal assessment of CBV signal along the left mesial temporal lobe due to location, although suspect minimally elevated CBV signal along the left mesial temporal region. No definite elevated CBV signal associated with the left parafalcine and left frontal convexity lesions. Chronic Change: The white matter is within normal limits of signal intensity for age. Parenchyma: No significant volume loss for age. Ventricles: Similar ventricular caliber. Improved effacement of the left lateral ventricle compared to 08/22/2024, due to resolving postsurgical changes. Skull Base: Hypothalamic and pituitary region are grossly normal. Craniocervical junction is normal. No significant marrow replacement process. Vasculature: Major intracranial arterial structures, and dural venous sinuses show typical flow void, suggesting patency by spin echo criteria. Other: Similar size of the extracranial collection overlying the left frontotemporal craniotomy site, measuring 6.4 x 1.8 cm, likely a pseudomeningocele. There is likely persistent intracranial component measuring 4 mm in thickness. IMPRESSION: Foci of nodular enhancement along the left temporal resection cavity are similar compared to 09/19/2024 (increased compared to 08/22/2024). Increased nonenhancing T2/FLAIR hyperintensity within the left temporal lobe compared to 08/22/2024. Continued enlargement of the heterogenous extra-axial lesions along the left anterior parafalcine region and left frontal convexity. Slightly decreased conspicuity of the nodular enhancing focus along the left tentorial leaflet. Decreased size of the evolving subdural hematoma/collection along the left frontal convexity. 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 Call Worker Person: EMILI Transcribe Date/Time: Oct 12 2024 12:10P Dictated by : REBECCA WEN MD This examination was interpreted and the report reviewed and electronically signed by: REBECCA WEN MD on Oct 12 2024 6:17PM EST [id number] PROGRESS Observed: 10/12/2024 11:00 AM Status: COMPLETED Source: [facility] HNO ID: [id number] Author: YINA WESTFALL RT(R) Service: ? Author Type: Technologist Type: Progress Notes Filed: 10/12/2024 10:46 Note Text: Radiology Service Progress Note PATIENT NAME: Angel Keating DATE OF SERVICE: October 12, 2024 TIME: 10:46 AM PATIENT IDENTITY VERIFICATION COMPLETED USING TWO (2) IDENTIFIERS: Name and Date of confirmed by patient verbally. FALL SCREENING: Has the patient had 2 falls in the last year or 1 fall with injury or currently using an Ambulatory Assistive Device (Walker, Cane, Wheelchair, Crutches, etc.)? No PATIENT GENDER DATA: Assigned male at PATIENT RELEVANT IMPLANT DATA REVIEWED: Yes PATIENT PRESENTS WITH AN IMPLANTABLE OR ATTACHED PLATE FINISHER: No RADIOLOGY DEPARTMENT: MR; Exam(s) Completed: Head: Routine Brain with Perfusion PERIPHERAL IV DATA: Site assessment: Clean,Dry and Intact, Site disposition Discontinued SIGNED BY: RT Bettye(R) October 12, 2024 10:46 AM PROGRESS Observed: 10/12/2024 7:33 AM Status: COMPLETED Source: [facility] HNO ID: [id number] Author: CATINA BEY RN Service: ? Author Type: Registered Nurse Type: Progress Notes Filed: 10/12/2024 10:40 Note Text: Patient is here for IVAD port flush per Nursing [place] protocol. IVAD is located in right upper chest. Site cleansed with Chloraprep IVAD accessed with a #20 gauge 3/4 non-coring Gripper needle Blood Return: Good Flushed with: 20 ml Normal Saline Non-coring needle left intact for MRI. Opsite applied to puncture site. Port site negative for redness, edema or tenderness. Patient tolerated procedure well. CNPN Observed: 10/11/2024 12:00 AM Status: COMPLETED Source: [facility] Telephone (HEMAWS) ANGEL KEATING ([id number]) 1970 M Date Time Provider Department 10/11/24 BOLA VIVAR During your visit today, we recorded the following information about you: Dee Dee Leon PSS 10/11/2024 11:08 AM Signed Pt would like to use port for appt on ON 10/12/24 @ 11am for MRI Please call pt to confirm time Mansoor Nelson 10/11/2024 11:22 AM Signed This has been scheduled for 10/12. Mansoor Nelson Allergies As of Date: 10/11/2024 (No Known Allergies) Date Reviewed: 09/23/2024 Reviewed by: Crissy Krishna RN - Fully Assessed Reason for Visit: Appointment [[id number]] Prescriptions as of 10/11/2024 - dexAMETHasone (DECADRON) 2 mg tablet Start the day after your Gamma Knife procedure:Take 4 mg (2 tablets) twice a day for 3 days then,Take 4 mg (2 tablets) once a day for 3 days then,Take 2 mg (1 tablet) once a day for 3 days then,Take 2 mg (1 tablet) every OTHER day for 3 days then Stop the Decadron Patient should start on 2024. - famotidine (PEPCID) 20 mg tablet Take 1 tablet by mouth two times a day. Patient should start on 2024. - modafinil (PROVIGIL) 100 mg tablet Take 1 tablet by mouth once daily for 42 days. - traZODone (DESYREL) 50 mg tablet Take 1 tablet by mouth daily at bedtime. - lacosamide (VIMPAT) 150 mg tab Take 1 tablet by mouth two times a day. - lomustine (GLEOSTINE) 100 mg capsule Take one 8mg Zofran on an empty stomach in the evening. Wait ONE hour. Take TWO 100mg capsule(s) Lomustine by mouth for a total dose of 200mg. Take one 8 mg Zofran twenty-four hours later. Take on Day 1 of each 42 day cycle. - methIMAzole (TAPAZOLE) 5 mg tablet Take TWO 10 mg tablets and ONE 5 mg tablet for a total dose of 25 mg, daily. - methIMAzole (TAPAZOLE) 10 mg tablet Take TWO 10 mg tablets and ONE 5 mg tablet for a total dose of 25 mg, daily. - ondansetron (ZOFRAN) 8 mg tablet Take one tablet by mouth on an empty stomach in the evening one hour prior to chemo. Then take one tablet 24 hours after chemo. May repeat dose every 8-12 hours if needed to prevent nausea - valACYclovir (VALTREX) 1 gram tablet Take 1,000 mg by mouth three times a day. - midazolam (NAYZILAM) 5 mg/spray (0.1 mL) nasal spray Use 1 [place] in the nose as needed for up to 10 days. May repeat dose in alternate nostril after 10 minutes based on response and tolerability. - sennosides (SENNA ORAL) Take by mouth. - DIETARY SUPPLEMENT,MISC COMB14 ORAL Take by mouth. Biomega 1000mg containing vitamin E and pure anchovy - medical supply, miscellaneous (MISCELLANEOUS MEDICAL SUPPLY MIS) Neurotrophin - acetaminophen (TYLENOL) 325 mg tablet 2 tablets by ORAL/FEEDING TUBE route every 4 hours as needed for pain. Problem List As Of Date 10/11/2024 Noted Resolved Chest pain [R07.9] 04/25/2010 05/26/2024 Brain mass [G93.89] 03/17/2023 11/17/2023 Obesity, Class I, BMI 30-34.9 [E66.811] 03/17/2023 Brain compression (HCC) [G93.5] 03/20/2023 S/P brain surgery [Z98.890] 03/20/2023 11/17/2023 At risk for seizures [Z91.89] 03/20/2023 Cerebral edema (HCC) [G93.6] 03/20/2023 GBM (glioblastoma multiforme) (HCC) [C71.9] 04/07/2023 Syncope, unspecified syncope type [R55] 11/01/2023 11/03/2023 Examination of participant in clinical trial [Z*11/05/2023 11/17/2023 Forehead pain [R51.9] 11/05/2023 PONV (postoperative nausea and vomiting) [R11.2*05/26/2024 Acute post-operative pain [G89.18] 05/29/2024 Encounter Status:Closed by MANSOOR NELSON on 10/11/24 PROGRESS Observed: 10/10/2024 4:37 PM Status: COMPLETED Source: [facility] HNO ID: [id number] Author: TOYA CORREA RPh Service: ? Author Type: ? Type: Progress Notes Filed: 10/13/2024 11:46 Note Text: [facility] Specialty Refill Assessment Medication(s): Gleostine Reviewed OV note on 09/08. Labs reviewed. Per discussion with RN from office, patient never started cycle back in . He started 09/05. Labs from 10/05 reviewed. CBC WNL except for thrombocytopenia - 87k. MRI of brain reviewed from 10/12. Foci of nodular enhancement along the left temporal resection cavity are similar compared to 09/19/2024 (increased compared to 08/22/2024). Increased nonenhancing T2/FLAIR hyperintensity within the left temporal lobe compared to 08/22/2024. Continued enlargement of the heterogenous extra-axial lesions along the left anterior parafalcine region and left frontal convexity. Slightly decreased conspicuity of the nodular enhancing focus along the left tentorial leaflet. Decreased size of the evolving subdural hematoma/collection along the left frontal convexity. 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 Next clinic visit scheduled 10/13. Addendum October 13, 2024 11:44 AM : Confirmed with office. Okay to proceed with shipment prior to OV as no treatment changes expected. Office will call patient about low plt and will instruct him to start accordingly (may be delay if plt remain low after draw today) C1D1 06/28/24 C2D1 09/05/24 - patient delayed C3D1 10/18/24 - per MD office C4D1 11/29/24 ALLERGIES No Known Allergies Patient's current medication list and adherence status to current therapy were reviewed by Specialty Pharmacy clinical pharmacist to identify any new drug interactions or non-compliance to therapy. Therapy continues to be appropriate for disease, patient response, and medical condition. Verification of therapeutic benefit and effectiveness with current therapy was completed. Adverse events, barriers in adherence, and side effects were assessed and addressed if applicable. Will proceed with refill with no changes in therapy - patient progressing towards achieving therapeutic goals based on medication-specific laboratory parameters, disease state markers and outcomes. Office/provider notes have been reviewed prior to dispensing the medication. Toya Correa, RonaldD Clinical Pharmacist, Oncology [facility] P: ; F: Pool: P [facility] Pool #: [id number] Tracer Lathe Set Up Operator Assessment Patient confirmed: Yes Med/dose confirmed: Yes Supplies needed: No supplies needed Missed doses: No Estimated days supply on hand: 0 Copay amount: 30 Copay form of payment: Credit card on file Payment confirmed: Yes Delivery method: FedEx Signature required: Waived on patient request Delivery address: [address] [place] [id number] Delivery date: 10/14/24 Questions or concerns for the pharmacist?: No Did you have any side effects believed to be related to this medication, that resulted in hospitalization?: No Current Outpatient Medications on File Prior to Visit Medication Sig dexAMETHasone (DECADRON) 2 mg tablet Start the day after your Gamma Knife procedure:Take 4 mg (2 tablets) twice a day for 3 days then,Take 4 mg (2 tablets) once a day for 3 days then,Take 2 mg (1 tablet) once a day for 3 days then,Take 2 mg (1 tablet) every OTHER day for 3 days then Stop the Decadron Patient should start on 2024. famotidine (PEPCID) 20 mg tablet Take 1 tablet by mouth two times a day. Patient should start on 2024. modafinil (PROVIGIL) 100 mg tablet Take 1 tablet by mouth once daily for 42 days. traZODone (DESYREL) 50 mg tablet Take 1 tablet by mouth daily at bedtime. lacosamide (VIMPAT) 150 mg tab Take 1 tablet by mouth two times a day. lomustine (GLEOSTINE) 100 mg capsule Take one 8mg Zofran on an empty stomach in the evening. Wait ONE hour. Take TWO 100mg capsule(s) Lomustine by mouth for a total dose of 200mg. Take one 8 mg Zofran twenty-four hours later. Take on Day 1 of each 42 day cycle. methIMAzole (TAPAZOLE) 5 mg tablet Take TWO 10 mg tablets and ONE 5 mg tablet for a total dose of 25 mg, daily. (Patient not taking: Reported on 09/08/2024) methIMAzole (TAPAZOLE) 10 mg tablet Take TWO 10 mg tablets and ONE 5 mg tablet for a total dose of 25 mg, daily. (Patient not taking: Reported on 09/08/2024) ondansetron (ZOFRAN) 8 mg tablet Take one tablet by mouth on an empty stomach in the evening one hour prior to chemo. Then take one tablet 24 hours after chemo. May repeat dose every 8-12 hours if needed to prevent nausea valACYclovir (VALTREX) 1 gram tablet Take 1,000 mg by mouth three times a day. (Patient not taking: Reported on 08/22/2024) midazolam (NAYZILAM) 5 mg/spray (0.1 mL) nasal spray Use 1 [place] in the nose as needed for up to 10 days. May repeat dose in alternate nostril after 10 minutes based on response and tolerability. sennosides (SENNA ORAL) Take by mouth. (Patient not taking: Reported on 08/12/2024) DIETARY SUPPLEMENT,MISC COMB14 ORAL Take by mouth. Biomega 1000mg containing vitamin E and pure anchovy (Patient not taking: Reported on 08/12/2024) medical supply, miscellaneous (MISCELLANEOUS MEDICAL SUPPLY MISC) Neurotrophin acetaminophen (TYLENOL) 325 mg tablet 2 tablets by ORAL/FEEDING TUBE route every 4 hours as needed for pain. No current facility-administered medications on file prior to visit. [facility] SPECIALTY CLINICAL ASSESSMENT - HEMATOLOGY ONCOLOGY V6: Ivent complete: No Assessment to use: Refill Lab monitoring inclusive of CBC, Chem-7, and other labs as pertinent for therapy: Yes Chemo cycle timing assessment: Yes Assessment of injection issues: N/A Current medication list (including drug interaction assessment): Yes Experience of adverse reactions to the medication: Yes Date of influenza vaccination reminder: 02/25/2024 Date of most recent vaccination assessment: 02/25/2024 Treatment Plan Information: Diagnosis: GBM Previous treatment(s): Gross total resection [03/19/2023] , GCAR AGILE, randomized to [id number] IV twice weekly arm + Standard concurrent chemotherapy and radiation ,Adjuvant temozolomide PO D1-5 q 28 days Starting Dose/Titration: - 200mg as a single dose every 6 weeks - Dosing is 90 mg/m2 (200mg is max dose) Administration: - Administering on an empty stomach may reduce the incidence of nausea and vomiting. - Do not break capsules. If contact with skin occurs, immediately wash area (thoroughly). Avoid exposure to broken capsules. Supportive Care: - Associated with moderate-highly emetogenic risk; anti-emetics are recommended to prevent nauea and vomiting Side Effects/Warnings: include but are not limited to bone marrow suppression, hepatotoxicity, pulmonary toxicity, renal toxicity, secondary malignancies (MDS/AML) Monitoring: - CBC with differential and platelet count (weekly for at least 6 weeks after a dose) - Hepatic and renal function tests (periodic) - Pulmonary function tests (baseline and periodic) Drug-Drug Interactions: none identrified per Lexicomp 02/25/24 Baseline: - CrCl 104.4 ml/min Est. Tx Plan Start Date: No information available Estimated Start Date Info: Per Dr. Enriquez's discretion Est. Estimated Treatment Duration: Max 6 cycles Gokul Lopez PROGRESS Observed: 10/06/2024 8:30 AM Status: COMPLETED Source: [facility] HNO ID: [id number] Author: PATRICIA ENRIQUEZ MD Service: ? Author Type: Physician Type: Progress Notes Filed: 11/01/2024 22:27 Note Text: Neurological [facility] NEURO-ONCOLOGY VIRTUAL VISIT NOTE This is a virtual visit using HIPAA compliant video platform. It required patient-provider interaction for the medical decision making as documented below. I have communicated my name and active licensure. The patient's identity and physical location were verified at the time of this visit. Either the patient or their legal personal service representative has been informed of the risks and benefits of -- and alternatives to -- treatment through a remote evaluation and consents to proceed with the evaluation remotely. [facility] Team: -Jose Evans MD, Neurosurgery -SAV Rodriguez, Radiation Oncology -Patricia Enriquez MD, Neuro-Oncology DIAGNOSIS: MGMT unmethylated Glioblastoma. 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 He initially presented with anxiety-attack like episodes going back to January 2023 as well as a fall, without loss of consciousness but +trauma to head around 02/27/2023. On 03/16/2023, he presented to [facility] ED with word finding difficulty, report of one-time fever of 101 in February, anxiety, increased thirst and urination and was found to have a L temporal mass with midline subfalcine shift concerning for high grade glioma. He was afebrile with normal glucose level and electrolytes. He underwent gross total resection by Dr. Evans on 03/19/2023, revealing an MGMT unmethylated glioblastoma, WHO Grade 4. He was discharged on keppra 750mg BID and dexamethasone taper. He established care with Dr. Enriquez and given paroxysmal episodes of anxiety, he was concerned about temporal lobe epilepsy and advised lifelong AED to reduce seizure risk. The patient was exhibiting some fatigue and dullness, so a cross taper from keppra to vimpat, with goal of vimpat 150mg BID. The patient expressed interest in clinical trials and enrolled onto GCAR AGILE. He was randomized to the [id number] arm (cyclic peptide modulating tumor microenvironment). TREATMENT HISTORY Gross total resection [03/19/2023] [facility] Dr. Evans MGMT unmethylated Glioblastoma. L temporal GCAR AGILE, randomized to [id number] IV twice weekly arm + Standard concurrent chemotherapy and radiation (04/20- 05/29/2023) [facility] Dr. Joyce and Dr. Enriquez Adjuvant temozolomide PO D1-5 q 28 days C1 07/01/23, will start 07/03 150mg/m2 C2 07/27/23 C3 08/31/23 C4 09/21/23 C5 10/26/23 C6 11/23/23 C7 12/28/23 STOP ADJ TMZ as the clinical; trial calls for up to 6 cycles. For some reason the patient had an extra cycle of Adj TMZ. Adjuvant [id number] during Maintenance: Cycle 7 Week 1 - infusions on 12/14/2023 (D1) and 12/17/2023 (D4) Cycle 7 Week 2 - infusions on 12/21/2023 (D8) and 12/24/2023 (D11) Cycle 7 Week 3 - infusions on 12/28/2023 (D15) and 12/31/2023 (D18) Cycle 7 Week 4 - infusions on 01/05/2024 (D22) and 01/08/2024 (D25) Cycle 8 Week 5 - infusions on 01/11/2024 and 01/14/2024 02/08/2024: MRI shows progression 02/08/24 BTB Referrals to se Dr. Evans for possible surgery. If surgery offered, he can be enrolled in CASE 3322 clinical trial with methimazole + chemo. 02/18/24: Dr Evans recommended NO surgery. 02/26/24 Lomustine 90mg/m2 C#1 02/25-04/08/24 04/12/24 Tumor progression, increased CBV 04/14/2024 BTB Referrals to se Dr. Evans for possible surgery. The patient is also eligible, for CASE 3322 clinical trial with methimazole + chemo. 04/28/2024 Jose Evans MD since the patient, and recommended surgery. 04/28/2024 clinical trials team, saw the patient, the patient is eligible, for for CASE 3322 clinical trial with methimazole + chemo. Patient signed consent. Treatment plan: Pre-operative treatment Phase -Methimazole - Pre-Op period: 05/24/2024 to 05/27/2024 (last dose is DAY of surgery) -Dose level 2 (25 mg daily) Surgical resection 05/27/[address] 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 C1D1 (10-28 days after surgery) -Scheduled for 06/16/2024 (20 days post op) -Methimazole - Post-Op period: 05/27/2024- TBD -Dose level 2 (25 mg judy C1D1 lomustine 110 mg/m2 - 07/28/24 - NOTE DATE ENTERED IN ERROR - PATIENT DID NOT TAKE CHEMO ON 08/07/2024 C2D1 lomustine -- planned for 09/07/24 08/22/2024 Brain MR - new enhancing nodules. CORRECTED DATES OF CHEMO: C1D1 JUN 28, 2024 09/05/2024 NOTE: RE; DISCREPANCY ON LOMUSTINE CYCLE. The patient recalled that he had taken Lomustine cycle No 1 [after 2nd surgery (05/27/2024)] on ~mid June 2024 and that he was due for cycle No 2 for early August 2024 We reviewed the pharmacy records and indeed the patient took cycle No 1 of Lomustine on 06/28/25, and he was due for next cycle on ~Aug 12, 2024. Pharmacy note confirm that lomustine was delivered. Although per patient knowledge that he needed to start his chemo, cycle No 2 of lomustine on 1st week of Aug 2024 - however he did not started as he was instructed that the chemo was to start not until Sep 07, 2024. Hence the patient had not started his chemo. 09/05/2024: The patient brought lomustine capsules, cycle No 2, as he noted - issued on 08/05/2024 - which should have started on Aug 12, 2024. The reason for the discrepancy - likely entry data error of when he took cycle No 1 of lomustine - erroneously was entered as 07/28/2024 instead of 06/28/2024. 09/05/2024 -10/17/24 Cycle No 2 of Lomustine 110 mg/M2 , dose capped 200 mg day cycle, per protocol. 09/23/24 SRS - GKS with Dr Evans October 06, 2024 Virtual visit The patient is unaccompanied Patient reports symptoms of a a cold/URI, going on for a couple of days. No fevers, no SOB, no other systemic symptoms. No other symptoms. === Important events the patient would hope to attend: November 28 son's graduation Daughter graduates college December 10. Late Apr 29- youngest step daughter ==== Last Chemo: see above Current Steroids dose: N/A Current AED Dose: lacosamide (VIMPAT) 150 mg tab Take 1 tablet by mouth two times a day. 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 Evans; path = GBM ORTHOPEDICS SURGERY HX 1996 knee surgery SHX CRANIOTOMY Left 03/19/2023 Family History: FAMILY HISTORY Problem Relation Age of Onset Diabetes Father Coronary Artery Disease Father Stroke Father Breast Cancer Mother None Sister Anesthesia Problems No Family History Social History Tobacco Use Smoking status: Former Current packs/day: 1.00 Average packs/day: 1 pack/day for 4.0 years (4.0 ttl pk-yrs) Types: Cigarettes, Cigars Smokeless tobacco: Never Vaping Use Vaping status: Never Used Substance Use Topics Alcohol use: Not Currently Comment: three beers a month - per pt [id number] Drug use: Never Allergies: Patient has no known allergies. Current Outpatient Medications Medication Sig lacosamide (VIMPAT) 150 mg tab Take 1 tablet by mouth two times a day. iv contrast (will be provided with radiology test) MRI Brain Inject, intravenously, once for 1 dose.No IV access, insert saline lock prior to beginning of sedation, infusion, injection of imaging exam.Discontinue saline lock post exam. If Pt. has a central line or IVAD, may access for administration according to line specific nursing protocol.Once exam is complete flush line and de-access according to line specific nursing protocol in the MR contrast administration guidelines link iv contrast (will be provided with radiology test) MRI Brain Inject, intravenously, once for 1 dose.No IV access, insert saline lock prior to beginning of sedation, infusion, injection of imaging exam.Discontinue saline lock post exam. If Pt. has a central line or IVAD, may access for administration according to line specific nursing protocol.Once exam is complete flush line and de-access according to line specific nursing protocol in the MR contrast administration guidelines link meclizine (ANTIVERT) 25 mg tab Take 1 tablet by mouth three times a day. valACYclovir (VALTREX) 1 gram tablet Take 1,000 mg by mouth three times a day. ondansetron (ZOFRAN) 8 mg tablet Take one hour prior to temozolomide prescription then every 8 hours as needed for nausea. temozolomide (TEMODAR) 180 mg capsule Fast for one hour after taking Zofran and then take ONE 180 mg capsule, plus ONE 140 mg and TWO 5 mg capsules to total 330 mg. Then, fast for one hour after taking. Take on days 1-5 of your 28 day cycle. Temozolomide 140 mg capsule Fast for one hour after taking Zofran and then take ONE 180 mg capsule, plus ONE 140 mg and TWO 5 mg capsules to total 330 mg. Then, fast for one hour after taking. Take on days 1-5 of your 28 day cycle. temozolomide (TEMODAR) 5 mg capsule Fast for one hour after taking Zofran and then take ONE 180 mg capsule, plus ONE 140 mg and TWO 5 mg capsules to total 330 mg. Then, fast for one hour after taking. Take on days 1-5 of your 28 day cycle. ondansetron (ZOFRAN) 8 mg tablet Take 1 tablet (8 mg) by mouth one hour before taking temozolomide dosing. Take on an empty stomach (Patient taking differently: Take 1 tablet (8 mg) by mouth one hour before taking temozolomide dosing. Take on an empty stomach) sennosides (SENNA ORAL) Take by mouth. DIETARY SUPPLEMENT,MISC COMB14 ORAL Take by mouth. Biomega 1000mg containing vitamin E and pure anchovy medical supply, miscellaneous (MISCELLANEOUS MEDICAL SUPPLY MIS) Neurotrophin acetaminophen (TYLENOL) 325 mg tablet 2 tablets by ORAL/FEEDING TUBE route every 4 hours as needed for pain. pantoprazole DR (PROTONIX) 20 mg tablet Take 1 tablet by mouth DAILY (6 AM). midazolam (NAYZILAM) 5 mg/spray (0.1 mL) nasal spray Use 1 [place] in the nose as needed for up to 10 days. May repeat dose in alternate nostril after 10 minutes based on response and tolerability. No current facility-administered medications for this visit. Review of systems: Constitutional: No recent fever or weight loss. Eyes: No history of glaucoma or cataracts. ENMT: No recent ear infection, nasal congestion, mouth sores or sore throat. CV: No history of chest pain, palpitations or leg swelling. Respiratory: No history of SOB, asthma or recent cough. Gastrointestinal: No history of nausea, vomiting, dysphagia or abdominal pain. Genitourinary: No history of hematuria or dysuria. Musculoskeletal: No complaint of arthritis, unstable gait or arm/leg weakness. Psychiatric: No history of hallucinations or depression or anxiety. ROS Neurological: No complaint of headache. No complaint of tinnitus. No complaint of decreased hearing. No complaint of diplopia. No complaints of decreased visual acuity. No complaint of arm/leg numbness. No problem with limb coordination. No complaint of syncope, seizures or disorientation. Objective Physical Exam: There were no vitals taken for this visit. GENERAL EXAM: General appearance: Well appearing, alert, in no acute distress NEUROLOGICAL EXAM: Higher integrative functions: Oriented to person, place AND time. Attention Span and Concentration: Good. Language: Accurate naming of objects. Good comprehension. Fund of Knowledge: Good. 2nd CN: Full visual land. 3rd,4th,6th CN: Pupils equal, round, react to light, full extraocular movements. 5th CN: No decrease in facial sensation 7th CN: Facial muscles symmetric and strong. 8th CN: Hears finger rub well bilaterally. 9th CN: Gag reflex not tested 10th CN: Spontaneous palate movement, full and symmetric. 11th CN: Full strength in shoulder shrug. 12th CN: Tongue protrusion full and midline. Sensation: No decrease in sensation in upper or lower limbs to touch. Musculoskeletal: Gait steady. Tandem walk normal. Romberg negative. Motor: 5/5 RUE/RLE; 5/5 LUE/LLENormal muscle tone without atrophy in all limbs. Coordination: Rapid alternating movements LUE intact; RUE intact Reflexes: 1-2+ ALL limbs. Plantar response down going. Karnofsky performance status: 80 - Normal activity with effort, some signs or symptoms of disease. ECOG performance status: 1 - Restricted in physically strenuous activity but ambulatory and able to carry out work of a light or sedentary nature, e.g., light house work or office work. 09/08/2024 PHQ 2 and 9 Total Scores PHQ-2 Score 0 Labs: Latest Ref Rng AND Units 08/29/2024 09/08/2024 10/05/2024 CBC WBC 3.70 - 11.00 k/uL 5.20 5.38 7.52 RBC 4.20 - 6.00 m/uL 4.35 4.18 4.74 Hemoglobin 13.0 - 17.0 g/dL 14.2 13.6 15.6 Hematocrit 39.0 - 51.0 % 40.5 38.4 43.6 MCV 80.0 - 100.0 fL 93.1 91.9 92.0 MCH 26.0 - 34.0 pg 32.6 32.5 32.9 MCHC 30.5 - 36.0 g/dL 35.1 35.4 35.8 RDW-CV 11.5 - 15.0 % 15.5 14.6 13.8 Platelet Count 150 - 400 k/uL 226 254 87 MPV 9.0 - 12.7 fL 8.2 8.3 9.2 Baso% % 0.8 0.9 0.1 Abs Neut (ANC) 1.45 - 7.50 k/uL 3.39 4.02 6.26 Abs Lymph 1.00 - 4.00 k/uL 1.06 0.66 0.44 Abs Branch <0.87 k/uL 0.57 0.55 0.59 Abs Eosin <0.46 k/uL 0.11 0.09 0.19 Abs Baso <0.11 k/uL 0.04 0.05 <0.03 NRBC /100 WBC 0.0 0.0 0.0 Latest Ref Rng AND Units 08/12/2024 09/08/202410/0510/05/2024 CMP Sodium 136 - 144 mmol/L 137 137 132 Potassium 3.7 - 5.1 mmol/L 4.2 4.2 4.0 Chloride 98 - 107 mmol/L 104 104 100 CO2 22 - 30 mmol/L 23 25 22 Glucose 74 - 99 mg/dL 112 110 122 BUN 9 - 24 mg/dL 15 10 21 Creatinine 0.73 - 1.22 mg/dL 1.02 1.21 1.18 EGFR >=60 mL/min/1.73m? 87 71 72 Protein, Total 6.3 - 8.0 g/dL 6.8 6.9 7.3 Albumin 3.9 - 4.9 g/dL 3.8 3.8 4.0 Calcium 8.5 - 10.2 mg/dL 9.2 8.9 9.4 Bilirubin, Total 0.2 - 1.3 mg/dL 0.3 0.6 0.6 AST 14 - 40 U/L 14 11 9 ALT 10 - 54 U/L 29 9 10 Alkaline Phosphatase 38 - 113 U/L 171 121 96 Final Pathology: SURGICAL PATHOLOGY: [id number] Order: [id number] Collected 03/19/2023 10:24 AM Status: Edited Result - FINAL Visible to patient: Yes (not seen) Dx: Brain tumor (HCC) 0 Result Notes Component FINAL DIAGNOSIS A, B. Brain, left temporal mass, biopsy and resection: - Morphologically consistent with high grade glioma. See comment. Diagnosis Comment CARLOS stained sections reveal a hypercellular infiltrating glioma with moderate to marked nuclear pleomorphism and increased mitoses (upto 4 per 10 high per field). Pseudopalisading necrosis and microvascular proliferation are identified. Immunohistochemical stains are performed at [facility] to better classify this lesion (block B1) and show the following in neoplastic cells: IDH1 R132H: neagtive (wildtype); ATRX: retained (wildtype); BRAF V600E: negative (wildtype); p53 strong nuclear positivity in up to 40%; Ki67 proliferative index up to 25%. Addendum This addendum is rendered to report the results of the following molecular studies: Targeted Oncology Panel: The oncogenic TERT promoter alteration, c.-124C>T (also known as C228T) was detected in this specimen; MGMT promoter methylation: not hypermethylated. 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 Addendum electronically signed by Krista Snow MD on 04/03/2023 at 9:13 AM Imaging: Results MRI BRAIN WO/W IVCON (Acc#[id number]) (Order [id number]) Patient Info Patient Name Sex BARRETT RishabhAngel ([id number]) Male 1970 08/22/2024 2:02 PM - Radiology, Oru In Impression IMPRESSION: Slight further increase in size of enhancing nodule in the left mesial temporal lobe with surrounding FLAIR hyperintensity. Increasing enlargement is suspicious of neoplastic progression but continued follow-up is recommended. Continued increased size of extra-axial enhancing foci along the falx and over the left frontal convexity at the vertex. No new pathologic enhancement otherwise. New chronic appearing subdural hemorrhage measuring 11 mm in maximal thickness overlying the left parietal convexity with approximately 2 mm rightward midline shift. Redistribution of cystic hygroma, now measuring up to 4 mm in maximal thickness and predominantly along the left frontoparietal falx. 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 I reviewed the images with the patient and family. 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 08/22/24 MRI progressive disease 08/29/2024 BTB recommend continue on lomustine, and SRS to enhancing nodules. ISSUES: 1- GBM-MGMT promoter not hyper methylated. 08/22/24 MRI progressive disease S/P SRS GK On lomustine 7-aptawqyjmonq-kxcuypd nausea: -Use Zofran, prior/after chemo and as needed 3-Imaging surveillance: -Brain w and w/o contrast and perfusion -booked for 10/12/2024 2A-Clinic visits: -In person visit booked for 10/13/2024 3-Bone marrow suppression from chemotherapy: periodic CBC, every 6 weeks Also, CMP every 6 weeks. Other blood test, per clinical trial 4- Seizures: Since I saw him last, he has not had any events to suggest seizures (02/19/2024). -On lacosamide (Vimpat): Started on 8/27/23. Dose is 150 mg twice a day. -Lacosamide blood levels, Latest Reference Range AND Units 07/14/24 09:38 Lacosamide 2.2 - 19.8 ug/mL 10.6 Based on the above levels to continue on the same dose. 5-Seizure precautions: The patient is not to drive any motorized vehicle, and not to engage in activities that could place her or others in danger if she were to have a seizure. I also discussed the use of rescue medication for breakthrough seizures, using midazolam nasal spray (NS) to use it as needed (PRN) and discussed when to use it. I discussed the potential benefits and side effects, including tiredness, fatigue, and or sleepiness and if so, the patient is not to engage in activities that require to be fully alert. I have also provided written information for the patient's review. 6-He is to follow by her PCP for general medical care/coordination of care. 7-NOT ON STEROIDS 8-To see PCP for to define appropriate vaccinations above. 9-Potential for thromboembolism: to watch for potential DVT/Pulmonary Embolism, and if so to go to the ED/call 911. 10-End of life issues: Adv Dir in chart. -Patient discussed, this important aspect, of his diagnosis, that is, that he acknowledges, that this condition will end his life, at young age, and relatively soon and that he has goals, for the next year or so, that is, to attend, important milestones events of his children's, which will take place, in the next year or so. Currently,02/19/24 his children's are 20 and 21 years old. He has seen Dr. Lion, from palliative medicine will also give advice regarding This. 11-psychosocial issues: Patient asked, advised on how to approach, his current diagnosis and progressive disease, with his children who are 2020. We given some advice, how it could be helpful for his children to cope with his unfortunate condition. However, we recommended for him to seek attention from psychosocial oncology, and this Could be expanded to the family. He has seen Dr. Daniel Juárez from psychology and psychiatry, as well [facility] Jalcyn Guillory. 12-Hygroma on surgical site: MRI 08/22/2024 New chronic appearing subdural hemorrhage measuring 11 mm in maximal thickness overlying the left parietal convexity with approximately 2 mm rightward midline shift. Redistribution of cystic hygroma, now measuring up to 4 mm in maximal thickness and predominantly along the left frontoparietal falx. 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 He saw Dr. Wilcox/surgical team (09/08/24) to address this today 09/08/24. Also clinically there is bulging of craniotomy site, not symptomatic. Dr. Evans recommend observation. 13-Fatigue after chemo - start Provigil for fatigue, improve alertness - wakefulness. I discussed potential benefits and side effects. I am seeing the patient in collaboration with Tona Cobos RN [facility] Banking Supervisor PLAN: -Brain w and w/o contrast and perfusion -booked for 10/12/2024 -In person visit booked for 10/13/2024 -Thrombocytopenia: 10/05/24 PLT 87K. No bleeding. Not on anticoagulants. Not on NSAID'S. -Reviewed thrombocytopenia precautions -Repeat CBC early next week. -URI: Patient reports symptoms of a a cold/URI, going on for a couple of days. No fevers, no SOB, no other systemic symptoms. I asked him to go to urgent care to be assessed, and also asking to be swabbed for the combo tests COVID/FLU/RSV or any other tests as appropriate by urgent care. In the end the patient and family verbalized understanding of the above, they had questions which I believe I answered to their satisfaction and agreed with these recommendations and had no further questions or concerns for the moment, but I encourage them to call the [facility] with any questions or concerns. I spent a total of 40 minutes on the date of the service which included preparing to see the patient, at least 50% of zjze-qn-[id number] patient care, completing clinical documentation, obtaining and/or reviewing separately obtained history, performing a medically appropriate examination, counseling and educating the patient/family/caregiver, ordering medications, tests, or procedures, communicating with other HCPs (not separately reported), independently interpreting results (not separately reported), communicating results to the patient/family/caregiver and care coordination (not separately reported). High MDM. Patricia Enriquez MD [facility] Patient Care Team: -Jose Evans MD, Neurosurgery, [facility], [facility], [facility] Cyndee Joyce MD, PhD, Radiation Oncology, [facility], [facility], [facility]. Jaclyn Guillory LSW as Pull Worker (Hematology/Oncology) Soraida Simmons RN (Hospice AND Palliative Medicine) Willy Lion MD (Hospice AND Palliative Medicine) Rupa Khoury APRN.MANUFACTURING ENGINEERING MANAGER (Hospice AND Palliative Medicine) Daniel Juárez PSYD, Psychology, [facility] CNPN Observed: 10/06/2024 12:00 AM Status: COMPLETED Source: [facility] Telephone (NSCAMN) ANGEL KEATING ([id number]) 1970 M Date Time Provider Department 10/06/24 NADEEN BECKETT [facility] During your visit today, we recorded the following information about you: Nadeen Beckett RN 12/05/2024 2:52 PM Addendum Telephone Follow up: IRB#: [id number] Case [id number] - Targeting Transsulfuration via Suppression of Thyroid Hormone Signaling in Progressive Glioblastoma; Modified Phase 1/2 and Pharmacodynamic Trial of Methimazole in Patients with Progressive WHO Grade 4 Glioblastoma PATIENT NAME: Angel Keating : 1970 Patient study ID: [id number] Primary MD: Dr. Enriquez Study start date: 05/24/2024 30 day follow Patient: Angel Arango Keating, 1970 Patient identified by name and date of : YES Spoke to: Patient Reason for call: To follow up on: 30 day follow up after end of treatment. Ongoing AE Grade Scale Assessment - CTCAE v.5: Neuro, other (thought process changes) - Grade 1 - Baseline; Probable to study disease. Symptom is: Controlled with no intervention; Approximately started: 03/16/2023 to present; Baseline at screening 04/09/2023 Seizures (at risk for) - Grade 1 - Baseline; Unrelated to historical disorder/disease; Probable to study disease. 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 Symptom is: Controlled with lifestyle changes; Approximately started: 05/12/2024 to present; Baseline at screening 05/12/2024; upgraded to grade 2 on 05/26/2024; Current status: Ongoing - worsening. Stable. Elevated Alkaline Phosphatase - Grade 3 - Probable to Methimazole, unlikely to Lomustine, Unlikely to study disease. Symptom is: Controlled; Start date: 07/14/2024; Action required for AE: NO; Intervention required: none; Current status/outcome: Ongoing - stable Rash (Diffused on Upper and Lower Extremities)- Grade 1 - Probable to Methimazole, Unlikely to Lomustine, Unlikely to study disease. Symptom is: Controlled; Start date: 07/25/2024; Action required for AE: NO; Intervention required: Patient instructed to visit his nearest Urgent Care for evaluation; Current status/outcome: Ongoing - stable Decreased RBC - Grade 1 - Unlikely to Methimazole, possible to LomustineUnlikely to study disease. Symptom is: Controlled; Start date: 07/14/2024; Action required for AE: NO; Intervention required: none; Current status/outcome: Ongoing - stable Decreased AST - Grade 1 - unlikely to Methimazole, Unlikely to study disease. Symptom is: Controlled; Start date: 06/16/2024; Action required for AE: NO; Intervention required: none; Current status/outcome: Ongoing - stable. RESOLVED 07/14/2024. REINSTATED as Grade 1 on 09/08/2024 Decreased ALT - Grade 1 - unlikely to Methimazole, Unlikely to study disease. Symptom is: Controlled; Start date: 09/08/2024; Action required for AE: NO; Intervention required: none; Current status/outcome: Ongoing - stable NEW AEs: none RESOLVED AEs: Elevated AST - Grade 1 - Probable to Methimazole, unlikely to Lomustine, Unlikely to study disease. Symptom is: Controlled; Start date: 07/14/2024; Action required for AE: NO; Intervention required: none; Current status/outcome: Ongoing - stable. RESOLVED 08/12/2024 Elevated ALT - Grade 2 - Probable to Methimazole, unlikely to Lomustine, Unlikely to study disease. Symptom is: Controlled; Start date: 07/14/2024; Action required for AE: NO; Intervention required: none; Current status/outcome: Ongoing - stable. RESOLVED 08/12/2024 Hypocalcemia - Grade 1 - Possible to Methimazole, Unlikely to study disease. Symptom is: Controlled; Start date: 06/16/2024; Action required for AE: NO; Intervention required: none; Current status/outcome: Ongoing - stable. RESOLVED 07/14/2024 Hyponatremia - Grade 1 - unlikely to Methimazole, Unlikely to study disease. Symptom is: Controlled; Start date: 06/16/2024; Action required for AE: NO; Intervention required: none; Current status/outcome: Ongoing - stable. RESOLVED 07/14/2024 Instructions to patient: Additional notes: Patient has the contact information for treating physician, research staff and the 24-hour [facility] number ([phone] or ) for the Heme/Onc Fellow. Nadeen Beckett RN 10/06/2024 2:51 PM Chart routed to Dr. Enriquez (Primary): YES Allergies As of Date: 10/06/2024 (No Known Allergies) Date Reviewed: 09/23/2024 Reviewed by: Crissy Krishna RN - Fully Assessed Prescriptions as of 12/05/2024 - iv contrast (will be provided with radiology test) MRI Brain Inject, intravenously, once for 1 dose.No IV access, insert saline lock prior to beginning of sedation, infusion, injection of imaging exam.Discontinue saline lock post exam. If Pt. has a central line or IVAD, may access for administration according to line specific nursing protocol.Once exam is complete flush line and de-access according to line specific nursing protocol in the MR contrast administration guidelines link - lomustine (GLEOSTINE) 100 mg capsule Take one 8mg Zofran on an empty stomach in the evening. Wait ONE hour. Take TWO 100mg capsule(s) Lomustine by mouth for a total dose of 200mg. Take one 8 mg Zofran twenty-four hours later. Take on Day 1 of each 42 day cycle. - dexAMETHasone (DECADRON) 2 mg tablet Take 1 tablet by mouth daily with breakfast. - pantoprazole DR (PROTONIX) 40 mg tablet Take 1 tablet by mouth once daily. - valACYclovir (VALTREX) 500 mg tablet Take 1 tablet by mouth once daily. - lacosamide (VIMPAT) 150 mg tab Take 1 tablet by mouth two times a day. - ondansetron (ZOFRAN) 8 mg tablet Take one tablet by mouth on an empty stomach in the evening one hour prior to chemo. Then take one tablet 24 hours after chemo. May repeat dose every 8-12 hours if needed to prevent nausea - midazolam (NAYZILAM) 5 mg/spray (0.1 mL) nasal spray Use 1 [place] in the nose as needed for up to 10 days. May repeat dose in alternate nostril after 10 minutes based on response and tolerability. - sennosides (SENNA ORAL) Take by mouth. - acetaminophen (TYLENOL) 325 mg tablet 2 tablets by ORAL/FEEDING TUBE route every 4 hours as needed for pain. Problem List As Of Date 10/06/2024 Noted Resolved Chest pain [R07.9] 04/25/2010 05/26/2024 Brain mass [G93.89] 03/17/2023 11/17/2023 Obesity, Class I, BMI 30-34.9 [E66.811] 03/17/2023 Brain compression (HCC) [G93.5] 03/20/2023 S/P brain surgery [Z98.890] 03/20/2023 11/17/2023 At risk for seizures [Z91.89] 03/20/2023 Cerebral edema (HCC) [G93.6] 03/20/2023 GBM (glioblastoma multiforme) (HCC) [C71.9] 04/07/2023 Syncope, unspecified syncope type [R55] 11/01/2023 11/03/2023 Examination of participant in clinical trial [Z*11/05/2023 11/17/2023 Forehead pain [R51.9] 11/05/2023 PONV (postoperative nausea and vomiting) [R11.2*05/26/2024 Acute post-operative pain [G89.18] 05/29/2024 Encounter Status:Closed by NADEEN BECKETT on 10/21/24 CBC W AUTO DIFF BLD Collected: 10/05/2024 10:13 AM S tatus: F Source: [facility] Order Comment: Specimen Type : BLOOD SPECIMEN Ordering Facility: [facility] Address: [address] [place] [address] TYPE CODE TESTS RESULT OUT OF RANGE REFERENCE UNITS LAB 6690-2(LOINC) WBC # Bld Auto 7.52 3.70-11.00 k/uL LAB 789-8(LOINC) RBC # Bld Auto 4.74 4.20-6.00 m/ uL LAB 718-7(LOINC) Hgb Bld-mCnc 15.6 13.0-17.0 g/dL LAB 4544-3(LOINC) Hct VFr Bld Auto 43.6 39.0-51.0 % LAB 787-2(LOINC) MCV RBC Auto 92.0 80.0-100.0 fL LAB 785-6(LOINC) MCH RBC Qn Auto 32.9 26.0-34.0 p g LAB 786-4(LOINC) MCHC RBC Auto-mCnc 35.8 30.5-36.0 g/dL LAB 71859-0(LOINC) RDW RBC-Rto 13.8 11.5-15.0 % LAB 777-3(LOINC) Platelet # Bld Auto 87 Low 150-400 k/uL Result Comment: No clot dete cted. LAB 05131-9(LOINC) PMV Bld Auto 9.2 9.0-12.7 fL LAB 770-8(INC) Neutrophils/leuk NFr Bld Auto 83.3 % LAB 751-8([facility]) Neutrophils # Bld Auto 6.26 1.45-7.50 k/uL LAB 736-9([facility]) Lymphocytes/leuk NFr Bld Auto 5.9 % LAB 731-0([facility]) Lymphocytes # Bld Auto 0.44 Low 1.00-4.00 k/uL LAB 5905-5([facility]) Monocytes/leuk NFr Bld Auto 7.8 % LAB 742-7([facility]) Monocytes # Bld Auto 0.59 <0.87 k/uL LAB 713-8([facility]) Eosinophil/leuk NFr Bld Auto 2.5 % LAB 711-2([facility]) Eosinophil # Bld Auto 0.19 <0.46 k/uL LAB 706-2([facility]) Basophils/leuk NFr Bld Auto 0.1 % LAB 704-7([facility]) Basophils # Bld Auto <0.03 <0.11 k/uL LAB 09428-5([facility]) Imm Granulocytes/christina k NFr Bld Auto 0.4 % LAB 25243-7([facility]) Imm Granulocytes # Bld Auto 0.03 <0.10 k/uL LAB 31932-9([facility]) nRBC/100 WBC Bld-Rto 0.0 /100 WBC LAB 771-6([facility]) nRBC # Bld Auto <0.01 <0.01 k/u L LAB 94128-2([facility]) Differential method Bld Auto Performed By: #### [id number] # ### [facility] CLIA [id number] [address] [place] [address] [place] COMP METAB 2000 PNL SERPL Collected: 10:13 AM Status: F Source: [facility] Order Comment: Specimen Type : BLOOD SPECIMEN Ordering Facility: [facility] Address: [address] [place] [address] TYPE CODE TESTS RESULT OUT OF RANGE REFERENCE UNITS LAB 2885-2([facility]) Prot SerPl-mCnc 7.3 6.3-8.0 g/dL LAB 1751-7(LOINC) Albumin SerPl-mCnc 4.0 3.9-4.9 g/dL LAB 34585-6(LOINC) Calcium SerPl-mCnc 9.4 8.5-10.2 mg/dL LAB 1975-2(LOINC) Bilirub SerPl-mCnc 0.6 0.2-1.3 mg/dL LAB 6768-6(LOINC) ALP SerPl-cCnc 96 38-113 U/L LAB 1920-8(LOINC) AST SerPl-cCnc 9 Low 14-40 U/L LAB 1742-6(LOINC) ALT SerPl-cCnc 10 10-54 U/L LAB 2345-7(LOINC) Glucose SerPl-mCnc 122 High 74-99 mg/dL Result Comment: The [place] Diabetes Association (ADA) provides guidance for cutoff values for fasting glucose and random glucose. The ADA defines fasting as no caloric intake for at least 8 hours. Fasting plasma glucose results between 100 to 125 mg/dL indicate increased risk for diabetes (prediabetes). Fasting plasma glucose results greater than or equal to 126 mg/dL meet the criteria for diagnosis of diabetes. In the absence of unequivocal hyperglycemia, results should be confirmed by repeat testing. In a patient with classic symptoms of hyperglycemia or hyperglycemic crisis, random plasma glucose results greater than or equal to 200 mg/dL meet the criteria for diagnosis of diabetes. Reference: Standards of Medical Care in Diabetes 2016, [place] Diabetes Association. Diabetes Care. 2016.39(Suppl 1). LAB 3094-0(LOINC) BUN SerPl-mCnc 21 9-24 mg/ dL LAB 2160-0(LOINC) Creat SerPl-mCnc 1.18 0.73-1.22 mg/dL LAB 2951-2(LOINC) Sodium SerPl-sCnc 132 Low 136-144 mmol/L LAB 2823-3(LOINC) Potassium SerPl-sCnc 4.0 3.7-5.1 mmol/L LAB 2075-0(LOINC) Chloride SerPl-sCnc 100 98-107 mmol/L LAB 2028-9(LOINC) CO2 SerPl-sCnc 22 22-30 mmo l/L LAB 15411-8(LOINC) Anion Gap SerPl-sCnc 10 8-15 mmol/L LAB 97308-3(INC) Creatinine + eGFR Pnl SerPlBld 72 >=60 mL/min/1 .73m??? Result Comment: Estimated Gl omerular Filtration Rate (eGFR) is calculated using the 2020 CKD-EPI creatinine equation. This equation utilizes serum creatinine, sex, and age as parameters. The creatinine assay has traceable calibration to isotope dilution-mass spectrometry. Refer to KDIGO guidelines for clinical interpretation. In patients with unstable renal function, e.g. those with acute kidney injury, the eGFR may not accurately reflect actual GFR. Performed By: #### [id number] # ### [facility] CLIA [id number] [address] [place] [address] [place] OPERATIVE NO Observed: 09/23/2024 1:11 PM Status: COMPLETED Source: [facility] HNO ID: [id number] Author: JOSE EVANS MD Service: Neurosurgery Author Type: Physician Type: Operative Report Filed: 09/23/2024 13:12 Note Text: [facility] [address] [place] [address] [place] OPERATIVE REPORT NAME: Angel Keating [facility] NO.: [id number] MASK SIMULATION DATE: 2024-09-19 RADIATION TREATMENT START DATE: 2024-09-19 RADIATION TREATMENT INTERMEDIATE DATE: 2024-09-20 RADIATION TREATMENT INTERMEDIATE DATE: 2024-09-21 RADIATION TREATMENT INTERMEDIATE DATE: 2024-09-22 RADIATION TREATMENT END DATE: 2024-09-23 NUMBER OF FRACTIONS: 5 PREOPERATIVE DIAGNOSIS: Left Glioblastoma POSTOPERATIVE DIAGNOSIS: Same OPERATION: Fractionated mask gamma knife radiosurgery. ANESTHESIA: None SURGEON: Jose Evans M.D. - Stereotactic treatment planning. RADIATION ONCOLOGIST: Cyndee Joyce MD, PhD ASSISTANTS: NONE SPECIMEN: None EBL: 0 ccs OPERATIVE INDICATIONS: The full clinical history and indications for treatment were discussed in the initial neurosurgery visit note. The indications, risks, benefits, and alternatives were discussed with the patient who asked us to proceed. The patient is aware that this may be one of several staged procedures in the management of this disorder. OPERATIVE FINDINGS: DESCRIPTION OF PROCEDURE: The patient was admitted to the [facility]ife [facility]. The [place] mask was created and a stereotactic cone-beam CT was obtained. The patient then underwent high-resolution MRI and CT imaging. The scans, including the cone-beam registration CT, were loaded in the planning computer and [place] gamma plan was used to perform fractionated radiosurgery dose planning. The lesions were treated as follows: Target 1 (Lt Temp) Location: Lt Temp Prescription: 30 Gy to the 63% local isodose line. The plan uses 14 shots covering 100% of the target. GTV Volume: 0.847 cm3 CTV Volume: 0.847 cm3 Max linear size: 1.59 cm Conformality Index (PIV/CTV) = 2.171 Complexity: Simple Gradient Index: 2.34 Number of Fractions: 5 Target 2 (Lt Ant Falx) Location: LT Ant Falx Prescription: 30 Gy to the 58% local isodose line. The plan uses 20 shots covering 100% of the target. GTV Volume: 1.053 cm3 CTV Volume: 1.053 cm3 Max linear size: 2.06 cm Conformality Index (PIV/CTV) = 2.074 Complexity: Simple Gradient Index: 3.01 Number of Fractions: 5 Target 3 (Lt Sup Front) Location: Lt Sup Front Prescription: 30 Gy to the 59% local isodose line. The plan uses 7 shots covering 100% of the target. GTV Volume: 1.272 cm3 CTV Volume: 1.272 cm3 Max linear size: 1.96 cm Conformality Index (PIV/CTV) = 2.258 Complexity: Simple Gradient Index: 2.84 Number of Fractions: 5 Target 4 (Lt Tent) Location: Lt Tent Prescription: 30 Gy to the 85% local isodose line. The plan uses 2 shots covering 100% of the target. GTV Volume: 0.012 cm3 CTV Volume: 0.012 cm3 Max linear size: 0.36 cm Conformality Index (PIV/CTV) = 8.167 Complexity: Simple Gradient Index: 6.47 Number of Fractions: 5 Target 5 (LT temp 2) Location: Lt Temp Prescription: 30 Gy to the 76% local isodose line. The plan uses 1 shots covering 100% of the target. GTV Volume: 0.087 cm3 CTV Volume: 0.087 cm3 Max linear size: 0.67 cm Conformality Index (PIV/CTV) = 4.609 Complexity: Simple Gradient Index: 2.55 Number of Fractions: 5 After the usual quality lead procedures were performed, fractionated radiosurgery was delivered with use of the Gamma Knife. The Gamma Knife checklists and time outs were performed during this procedure in a standard manner. Jose Evans M.D. PROGRESS Observed: 09/23/2024 8:03 AM Status: COMPLETED Source: [facility] HNO ID: [id number] Author: CRISSY KRISHNA RN Service: ? Author Type: Registered Nurse Type: Progress Notes Filed: 09/23/2024 15:40 Note Text: September 23, 2024 08 Angel Keating here for treatment # 5 of 5. Is patient on immunotherapy? No. ID verified with patient with two identifiers, name and birthdate. ID band applied. Crissy Krishna RN Robb assessed for the following: Does Angel Keating have any pain? No. Pain 0 on scale of 0-10 Does Angel Keating have: Unintentional weight loss or gain of greater than 10 pounds due to a change of appetite and/or intake: no Difficulty chewing and/or swallowing: no Fall risk assessment: Not at risk for falls Concerns about physical or emotional abuse: no Allergies reviewed with patient, yes. 0935 Decadron 4 mg po given prior to Gamma Knife SRS per order of A Nathan DURAN. 0835 Patient assisted to treatment room. Gamma Knife SRS begun. 917 Gamma Knife Stereotactic Radiosurgery Completed. 09 Discharge instructions given to patient. Instructions reviewed by this nurse and patient verbalized an understanding, then Angel discharged. Crissy Krishna RN CNOV Observed: 09/23/2024 7:00 AM Status: COMPLETED Source: [facility] Office Visit (ROSANNEA) ANGEL KEATING ([id number]) 1970 M Date Time Provider Department 09/23/24 7:00 AM GILL SALDIVAR During your visit today, we recorded the following information about you: Crissy Krishna RN 09/23/2024 3:40 PM Addendum September 23, 2024 0821 Angel Keating here for treatment # 5 of 5. Is patient on immunotherapy? No. ID verified with patient with two identifiers, name and birthdate. ID band applied. Crissy Krishna RN Robb assessed for the following: Does Angel Keating have any pain? No. Pain 0 on scale of 0-10 Does Angel Keating have: Unintentional weight loss or gain of greater than 10 pounds due to a change of appetite and/or intake: no Difficulty chewing and/or swallowing: no Fall risk assessment: Not at risk for falls Concerns about physical or emotional abuse: no Allergies reviewed with patient, yes. 934 Decadron 4 mg po given prior to Gamma Knife SRS per order of Sudha Evans MD. 834 Patient assisted to treatment room. Gamma Knife SRS begun. 917 Gamma Knife Stereotactic Radiosurgery Completed. 924 Discharge instructions given to patient. Instructions reviewed by this nurse and patient verbalized an understanding, then Angel discharged. Crissy Krishna RN Referring Provider: JOSE EVANS [[id number]] Allergies As of Date: 09/23/2024 (No Known Allergies) Date Reviewed: 09/23/2024 Reviewed by: Crissy Krishna RN - Fully Assessed Reason for Visit: Procedure [88] Cmt: GKSR Primary Visit Diagnosis:GBM (glioblastoma multiforme) (HCC) [C71.9] Order(s):[] dexAMETHasone 4 mg tab(s) (DECADRON)Disp: Rfl: Prescriptions as of 09/23/2024 - dexAMETHasone (DECADRON) 2 mg tablet Start the day after your Gamma Knife procedure:Take 4 mg (2 tablets) twice a day for 3 days then,Take 4 mg (2 tablets) once a day for 3 days then,Take 2 mg (1 tablet) once a day for 3 days then,Take 2 mg (1 tablet) every OTHER day for 3 days then Stop the Decadron Patient should start on 2024. - famotidine (PEPCID) 20 mg tablet Take 1 tablet by mouth two times a day. Patient should start on 2024. - modafinil (PROVIGIL) 100 mg tablet Take 1 tablet by mouth once daily for 42 days. - traZODone (DESYREL) 50 mg tablet Take 1 tablet by mouth daily at bedtime. - lacosamide (VIMPAT) 150 mg tab Take 1 tablet by mouth two times a day. - lomustine (GLEOSTINE) 100 mg capsule Take one 8mg Zofran on an empty stomach in the evening. Wait ONE hour. Take TWO 100mg capsule(s) Lomustine by mouth for a total dose of 200mg. Take one 8 mg Zofran twenty-four hours later. Take on Day 1 of each 42 day cycle. - methIMAzole (TAPAZOLE) 5 mg tablet Take TWO 10 mg tablets and ONE 5 mg tablet for a total dose of 25 mg, daily. - methIMAzole (TAPAZOLE) 10 mg tablet Take TWO 10 mg tablets and ONE 5 mg tablet for a total dose of 25 mg, daily. - ondansetron (ZOFRAN) 8 mg tablet Take one tablet by mouth on an empty stomach in the evening one hour prior to chemo. Then take one tablet 24 hours after chemo. May repeat dose every 8-12 hours if needed to prevent nausea - valACYclovir (VALTREX) 1 gram tablet Take 1,000 mg by mouth three times a day. - midazolam (NAYZILAM) 5 mg/spray (0.1 mL) nasal spray Use 1 [place] in the nose as needed for up to 10 days. May repeat dose in alternate nostril after 10 minutes based on response and tolerability. - sennosides (SENNA ORAL) Take by mouth. - DIETARY SUPPLEMENT,[facility] COMB14 ORAL Take by mouth. Biomega 1000mg containing vitamin E and pure anchovy - medical supply, miscellaneous (MISCELLANEOUS MEDICAL SUPPLY [facility]) Neurotrophin - acetaminophen (TYLENOL) 325 mg tablet 2 tablets by ORAL/FEEDING TUBE route every 4 hours as needed for pain. Facility-Administered Medications as of 09/23/2024 - dexAMETHasone sodium phosphate 4 mg for oral administration (DECADRON) Problem List As Of Date 09/23/2024 Noted Resolved Chest pain [R07.9] 04/25/2010 05/26/2024 Brain mass [G93.89] 03/17/2023 11/17/2023 Obesity, Class I, BMI 30-34.9 [E66.811] 03/17/2023 Brain compression (HCC) [G93.5] 03/20/2023 S/P brain surgery [Z98.890] 03/20/2023 11/17/2023 At risk for seizures [Z91.89] 03/20/2023 Cerebral edema (HCC) [G93.6] 03/20/2023 GBM (glioblastoma multiforme) (HCC) [C71.9] 04/07/2023 Syncope, unspecified syncope type [R55] 11/01/2023 11/03/2023 Examination of participant in clinical trial [Z*11/05/2023 11/17/2023 Forehead pain [R51.9] 11/05/2023 PONV (postoperative nausea and vomiting) [R11.2*05/26/2024 Acute post-operative pain [G89.18] 05/29/2024 Prescriptions ordered this encounter Disp Refills Start End DEXAMETHASONE 4 MG TABLET 09/23/2024 09/23/2024 Route: ORAL Encounter Status:Closed by CRISSY KRISHNA on 09/23/24 PROGRESS Observed: 09/23/2024 12:00 AM Status: COMPLETED Source: [facility] HNO ID: [id number] Author: CYNDEE JOYCE MD Service: Radiation Oncology Author Type: Physician Type: Progress Notes Filed: 10/05/2024 17:10 Note Text: ANGEL KEATING [id number] 09/23/2024 [facility] Department of Radiation Oncology [facility] RADIATION ONCOLOGY - COMPLETION NOTE START DATE OF TREATMENT: September 19, 2024 END DATE OF TREATMENT: September 23, 2024 UNIT: Gamma Knife AREA TREATED: 1) Lt Temp 2) LT Ant Falx 3) Lt Sup Front 4) Lt Tent 5) Lt Temp DISEASE: Left Glioblastoma DELIVERED DOSE: 1. 3000.0 cGy was prescribed to the 63% isodose line, which covered 100% of the target. The plan utilized 14 shots using 16 mm and composite sectors. GTV volume = 0.847 cm3. Maximum dose = 4770.0 cGy. Maximum diameter = 1.59 cm. MD/PD = 1.59. PIV/CTV = 2.171. Gradient Index = 2.34. Number of Fractions = 5. 2. 3000.0 cGy was prescribed to the 58% isodose line, which covered 100% of the target. The plan utilized 20 shots using composite sector. GTV volume = 1.053 cm3. Maximum dose = 5170.0 cGy. Maximum diameter = 2.06 cm. MD/PD = 1.723. PIV/CTV = 2.074. Gradient Index = 3.01. Number of Fractions = 5. 3. 3000.0 cGy was prescribed to the 59% isodose line, which covered 100% of the target. The plan utilized 7 shots using 16 mm and composite sectors. GTV volume = 1.272 cm3. Maximum dose = 5090.0 cGy. Maximum diameter = 1.96 cm. MD/PD = 1.697. PIV/CTV = 2.258. Gradient Index = 2.84. Number of Fractions = 5. 4. 3000.0 cGy was prescribed to the 85% isodose line, which covered 100% of the target. The plan utilized 2 shots using 8 mm and 4 mm sectors. GTV volume = 0.012 cm3. Maximum dose = 3520.0 cGy. Maximum diameter = 0.36 cm. MD/PD = 1.173. PIV/CTV = 8.167. Gradient Index = 6.47. Number of Fractions = 5. 5. 3000.0 cGy was prescribed to the 76% isodose line, which covered 100% of the target. The plan utilized 1 shot using 8 mm sector. GTV volume = 0.087 cm3. Maximum dose = 4420.0 cGy. Maximum diameter = 0.67 cm. MD/PD = 1.473. PIV/CTV = 4.609. Gradient Index = 2.55. Number of Fractions = 5. 5 separate treatment plans were devised. TOLERANCE: Excellent. RESPONSE: To be evaluated. REMARKS: The patient will follow-up in 2 months with repeat MRI scan. Authorized user was present during the entire treatment. The total treatment time was within 10% of the written directive. Staff Physician Cyndee Joyce M.D :10 PM Electronically Signed cc: Dr. Jose Enriquez PROGRESS Observed: 09/23/2024 12:00 AM Status: COMPLETED Source: [facility] HNO ID: [id number] Author: KODY WARD MD Service: Radiation Oncology Author Type: Physician Type: Progress Notes Filed: 09/23/2024 15:19 Note Text: ANGEL KEATING [id number] 09/23/2024 [facility] GAMMA KNIFE STEREOTACTIC RADIOSURGERY (SRS) DAILY PROCEDURE NOTE FRACTION NUMBER: 5 of 5 (multiple sites) CUMULATIVE DOSE: 30 Gy lt ant falx (Out of a planned 30 Gy) 30 Gy lt sup front (Out of a planned 30 Gy) 30 Gy lt sup front (Out of a planned 30 Gy) 30 Gy lt tent (Out of a planned 30 Gy) 30 Gy lt temp 2 (Out of a planned 30 Gy) DIAGNOSIS: 52 yo male with GBM of left temporal brain on 03/19/23; path [id number] negative, MGMT unmethylated, and TERTp promotor per TOP. Enrolled on [facility] [place] trial and randomized to [id number] arm s/p RT (6000 cGy/30 fx from ). Underwent re-do craniotomy on 05/27/24. Treated on CASE 3322 since 06/16/2024, w/ Lomustine started on 07/28/2024. MRI brain showed progression with new enhancing lesions. PROCEDURE: Under my direct supervision the patient was set up on the treatment table and all treatment parameters were verified, including patient identity and treatment site. CBCT obtained which was co-registered using the treatment planning system. Adaptive replan was verified and approved. Once the beam was turned on, the patient position and target location were continuously monitored during delivery of the SRS using infrared tracking. At all points of decision-making with regard to patient setup, I conferred with the medical sonographer to approve the final setup. I was available throughout the SRS treatment to manage the execution of the treatment and make real-time adjustments in response to patient motion, target movement, or equipment issues to ensure accuracy and safety. The patient was evaluated by me after treatment and was discharged in stable condition. TREATMENT VOLUMES: GTV (Defined by neurosurgeon) PHYSICIST NAME: Redd Mcknight, PhD INTERVENTIONS: None ASSESSMENT/PLAN: Patient tolerated procedure well. Electronically Signed KODY WARD M.D. :19 PM CNOV Observed: 09/22/2024 11:00 AM Status: COMPLETED Source: [facility] Office Visit (RADTMN) KEATINGANGEL ([id number]) 1970 M Date Time Provider Department 09/22/24 11:00 AM CYNDEE JOYCE During your visit today, we recorded the following information about you: Cyndee Joyce MD 09/22/2024 12:43 PM Signed Radiation Oncology - On Treatment Review (OTR) Note PATIENT NAME: Angel Keating PATIENT DIAGNOSIS: 52yo M with progression of left temporal GBM. 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 Still has word finding difficulties (ever since his surgery). Sense of balance is different, and he gets tired after walking for some time. Looks forward to attend step-daughter's wedding in April. PHYSICAL EXAM: KPS: 80 Neuro Function Score (NFS): NFS 1 (Minor neurologic symptoms; fully active at home/work without assistance) General Appearance: Alert and oriented. No acute distress. Oral Mucosa: N/A Alopecia: Mild Neuro Comprehensive: Neuro: Speech fluent, slight word finding difficulty. CN II-XII intact. Able to recite zipcode backwards. Strength intact and symmetric, 5/5 throughout. Slightly decreased sensation to light touch over right lateral thigh and over left forehead.Normal gait. FNF intact, but some tremor noted on the left. IMAGING/LAB RESULTS: Latest Ref Rng AND Units 08/12/2024 08/29/2024 09/08/2024 CBC WBC 3.70 - 11.00 k/uL 4.93 5.20 5.38 RBC 4.20 - 6.00 m/uL 4.13 4.35 4.18 Hemoglobin 13.0 - 17.0 g/dL 13.4 14.2 13.6 Hematocrit 39.0 - 51.0 % 38.0 40.5 38.4 MCV 80.0 - 100.0 fL 92.0 93.1 91.9 MCH 26.0 - 34.0 pg 32.4 32.6 32.5 MCHC 30.5 - 36.0 g/dL 35.3 35.1 35.4 RDW-CV 11.5 - 15.0 % 15.9 15.5 14.6 Platelet Count 150 - 400 k/uL 164 226 254 MPV 9.0 - 12.7 fL 8.6 8.2 8.3 Baso% % 0.2 0.8 0.9 Abs Neut (ANC) 1.45 - 7.50 k/uL 3.83 3.39 4.02 Abs Lymph 1.00 - 4.00 k/uL 0.62 1.06 0.66 Abs Branch <0.87 k/uL 0.42 0.57 0.55 Abs Eosin <0.46 k/uL 0.03 0.11 0.09 Abs Baso <0.11 k/uL <0.03 0.04 0.05 NRBC /100 WBC 0.0 0.0 0.0 TOXICITY ASSESSMENT (CTC v4.0): Fatigue: grade 1 - Fatigue relieved by rest Alopecia: grade 1 - Hair loss of <50% of normal that is not obvious from distance but close inspection; a different hair style may be required to cover the hair loss but it does not require a wig or hair piece to camouflage Constipation: grade 1 - Occasional or intermittent symptoms; occasional use of stool softeners, laxatives, dietary modification, or enema) Nausea: Grade 0 - No Symptoms Headache: grade 0 - No symptoms Radiation Dermatitis: grade 0 - No symptoms Seizures: Not Applicable Cerebral Edema: Grade 0- No Symptoms Wound Dehiscence: Grade 0- No Symptoms DATA: Diagnostic tests reviewed for today's visit: Most recent labs ASSESSMENT/PLAN: Clinically stable. Toxicity within expected parameters. Continue radiation treatment as planned. Medication Started: No Estella Brito MD Radiation Oncology, PGY-2 STAFF NOTE: I have personally participated in the mckeon components of the case and agree with the above findings: Treatment chart checked: YES Patient treatment site reviewed and verified: YES Setup images reviewed and current: YES ASSESSMENT/PLAN: Clinically stable. Toxicity within expected parameters. Continue radiation treatment as planned. Signed by: Cyndee Joyce MD Allergies As of Date: 09/22/2024 (No Known Allergies) Date Reviewed: 09/22/2024 Reviewed by: Crissy Krishna RN - Fully Assessed Primary Visit Diagnosis:GBM (glioblastoma multiforme) (HCC) [C71.9] Prescriptions as of 09/22/2024 - dexAMETHasone (DECADRON) 2 mg tablet Start the day after your Gamma Knife procedure:Take 4 mg (2 tablets) twice a day for 3 days then,Take 4 mg (2 tablets) once a day for 3 days then,Take 2 mg (1 tablet) once a day for 3 days then,Take 2 mg (1 tablet) every OTHER day for 3 days then Stop the Decadron Patient should start on 2024. - famotidine (PEPCID) 20 mg tablet Take 1 tablet by mouth two times a day. Patient should start on 2024. - modafinil (PROVIGIL) 100 mg tablet Take 1 tablet by mouth once daily for 42 days. - traZODone (DESYREL) 50 mg tablet Take 1 tablet by mouth daily at bedtime. - lacosamide (VIMPAT) 150 mg tab Take 1 tablet by mouth two times a day. - lomustine (GLEOSTINE) 100 mg capsule Take one 8mg Zofran on an empty stomach in the evening. Wait ONE hour. Take TWO 100mg capsule(s) Lomustine by mouth for a total dose of 200mg. Take one 8 mg Zofran twenty-four hours later. Take on Day 1 of each 42 day cycle. - methIMAzole (TAPAZOLE) 5 mg tablet Take TWO 10 mg tablets and ONE 5 mg tablet for a total dose of 25 mg, daily. - methIMAzole (TAPAZOLE) 10 mg tablet Take TWO 10 mg tablets and ONE 5 mg tablet for a total dose of 25 mg, daily. - ondansetron (ZOFRAN) 8 mg tablet Take one tablet by mouth on an empty stomach in the evening one hour prior to chemo. Then take one tablet 24 hours after chemo. May repeat dose every 8-12 hours if needed to prevent nausea - valACYclovir (VALTREX) 1 gram tablet Take 1,000 mg by mouth three times a day. - midazolam (NAYZILAM) 5 mg/spray (0.1 mL) nasal spray Use 1 [place] in the nose as needed for up to 10 days. May repeat dose in alternate nostril after 10 minutes based on response and tolerability. - sennosides (SENNA ORAL) Take by mouth. - DIETARY SUPPLEMENT,MISC COMB14 ORAL Take by mouth. Biomega 1000mg containing vitamin E and pure anchovy - medical supply, miscellaneous (MISCELLANEOUS MEDICAL SUPPLY [facility]) Neurotrophin - acetaminophen (TYLENOL) 325 mg tablet 2 tablets by ORAL/FEEDING TUBE route every 4 hours as needed for pain. Facility-Administered Medications as of 09/22/2024 - dexAMETHasone sodium phosphate 4 mg for oral administration (DECADRON) Problem List As Of Date 09/22/2024 Noted Resolved Chest pain [R07.9] 04/25/2010 05/26/2024 Brain mass [G93.89] 03/17/2023 11/17/2023 Obesity, Class I, BMI 30-34.9 [E66.811] 03/17/2023 Brain compression (HCC) [G93.5] 03/20/2023 S/P brain surgery [Z98.890] 03/20/2023 11/17/2023 At risk for seizures [Z91.89] 03/20/2023 Cerebral edema (HCC) [G93.6] 03/20/2023 GBM (glioblastoma multiforme) (HCC) [C71.9] 04/07/2023 Syncope, unspecified syncope type [R55] 11/01/2023 11/03/2023 Examination of participant in clinical trial [Z*11/05/2023 11/17/2023 Forehead pain [R51.9] 11/05/2023 PONV (postoperative nausea and vomiting) [R11.2*05/26/2024 Acute post-operative pain [G89.18] 05/29/2024 Encounter Status:Closed by CYNDEE JOYCE on 09/22/24 PROGRESS Observed: 09/22/2024 9:37 AM Status: COMPLETED Source: [facility] HNO ID: [id number] Author: CYNDEE JOYCE MD Service: ? Author Type: Physician Type: Progress Notes Filed: 09/22/2024 12:43 Note Text: Radiation Oncology - On Treatment Review (OTR) Note PATIENT NAME: Angel eKating PATIENT DIAGNOSIS: 52yo M with progression of left temporal GBM. 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 Still has word finding difficulties (ever since his surgery). Sense of balance is different, and he gets tired after walking for some time. Looks forward to attend step-daughter's wedding in April. PHYSICAL EXAM: KPS: 80 Neuro Function Score (NFS): NFS 1 (Minor neurologic symptoms; fully active at home/work without assistance) General Appearance: Alert and oriented. No acute distress. Oral Mucosa: N/A Alopecia: Mild Neuro Comprehensive: Neuro: Speech fluent, slight word finding difficulty. CN II-XII intact. Able to recite zipcode backwards. Strength intact and symmetric, 5/5 throughout. Slightly decreased sensation to light touch over right lateral thigh and over left forehead.Normal gait. FNF intact, but some tremor noted on the left. IMAGING/LAB RESULTS: Latest Ref Rng AND Units 08/12/2024 08/29/2024 09/08/2024 CBC WBC 3.70 - 11.00 k/uL 4.93 5.20 5.38 RBC 4.20 - 6.00 m/uL 4.13 4.35 4.18 Hemoglobin 13.0 - 17.0 g/dL 13.4 14.2 13.6 Hematocrit 39.0 - 51.0 % 38.0 40.5 38.4 MCV 80.0 - 100.0 fL 92.0 93.1 91.9 MCH 26.0 - 34.0 pg 32.4 32.6 32.5 MCHC 30.5 - 36.0 g/dL 35.3 35.1 35.4 RDW-CV 11.5 - 15.0 % 15.9 15.5 14.6 Platelet Count 150 - 400 k/uL 164 226 254 MPV 9.0 - 12.7 fL 8.6 8.2 8.3 Baso% % 0.2 0.8 0.9 Abs Neut (ANC) 1.45 - 7.50 k/uL 3.83 3.39 4.02 Abs Lymph 1.00 - 4.00 k/uL 0.62 1.06 0.66 Abs Branch <0.87 k/uL 0.42 0.57 0.55 Abs Eosin <0.46 k/uL 0.03 0.11 0.09 Abs Baso <0.11 k/uL <0.03 0.04 0.05 NRBC /100 WBC 0.0 0.0 0.0 TOXICITY ASSESSMENT (CTC v4.0): Fatigue: grade 1 - Fatigue relieved by rest Alopecia: grade 1 - Hair loss of <50% of normal that is not obvious from distance but close inspection; a different hair style may be required to cover the hair loss but it does not require a wig or hair piece to camouflage Constipation: grade 1 - Occasional or intermittent symptoms; occasional use of stool softeners, laxatives, dietary modification, or enema) Nausea: Grade 0 - No Symptoms Headache: grade 0 - No symptoms Radiation Dermatitis: grade 0 - No symptoms Seizures: Not Applicable Cerebral Edema: Grade 0- No Symptoms Wound Dehiscence: Grade 0- No Symptoms DATA: Diagnostic tests reviewed for today's visit: Most recent labs ASSESSMENT/PLAN: Clinically stable. Toxicity within expected parameters. Continue radiation treatment as planned. Medication Started: No Estella Brito MD Radiation Oncology, PGY-2 STAFF NOTE: I have personally participated in the mckeon components of the case and agree with the above findings: Treatment chart checked: YES Patient treatment site reviewed and verified: YES Setup images reviewed and current: YES ASSESSMENT/PLAN: Clinically stable. Toxicity within expected parameters. Continue radiation treatment as planned. Signed by: Cyndee Joyce MD CNOV Observed: 09/22/2024 8:30 AM Status: COMPLETED Source: [facility] Office Visit (RADTMN) VAL KEATINGLIS Arango ([id number]) 1970 M Date Time Provider Department 09/22/24 8:30 AM CYNDEE JOYCE During your visit today, we recorded the following information about you: Temperature Pulse Respiration Blood pressure 97.8 degrees 60/minute 20/minute 136/86 Weight 99.8 kg Allergies As of Date: 09/22/2024 (No Known Allergies) Date Reviewed: 09/22/2024 Reviewed by: Crissy Krishna, VAZQUEZ - Fully Assessed Reason for Visit: Radiotherapy On-treatment Visit [1722] Primary Visit Diagnosis:GBM (glioblastoma multiforme) (HCC) [C71.9] Prescriptions as of 10/05/2024 - dexAMETHasone (DECADRON) 2 mg tablet Start the day after your Gamma Knife procedure:Take 4 mg (2 tablets) twice a day for 3 days then,Take 4 mg (2 tablets) once a day for 3 days then,Take 2 mg (1 tablet) once a day for 3 days then,Take 2 mg (1 tablet) every OTHER day for 3 days then Stop the Decadron Patient should start on 2024. - famotidine (PEPCID) 20 mg tablet Take 1 tablet by mouth two times a day. Patient should start on 2024. - modafinil (PROVIGIL) 100 mg tablet Take 1 tablet by mouth once daily for 42 days. - traZODone (DESYREL) 50 mg tablet Take 1 tablet by mouth daily at bedtime. - lacosamide (VIMPAT) 150 mg tab Take 1 tablet by mouth two times a day. - lomustine (GLEOSTINE) 100 mg capsule Take one 8mg Zofran on an empty stomach in the evening. Wait ONE hour. Take TWO 100mg capsule(s) Lomustine by mouth for a total dose of 200mg. Take one 8 mg Zofran twenty-four hours later. Take on Day 1 of each 42 day cycle. - methIMAzole (TAPAZOLE) 5 mg tablet Take TWO 10 mg tablets and ONE 5 mg tablet for a total dose of 25 mg, daily. - methIMAzole (TAPAZOLE) 10 mg tablet Take TWO 10 mg tablets and ONE 5 mg tablet for a total dose of 25 mg, daily. - ondansetron (ZOFRAN) 8 mg tablet Take one tablet by mouth on an empty stomach in the evening one hour prior to chemo. Then take one tablet 24 hours after chemo. May repeat dose every 8-12 hours if needed to prevent nausea - valACYclovir (VALTREX) 1 gram tablet Take 1,000 mg by mouth three times a day. - midazolam (NAYZILAM) 5 mg/spray (0.1 mL) nasal spray Use 1 [place] in the nose as needed for up to 10 days. May repeat dose in alternate nostril after 10 minutes based on response and tolerability. - sennosides (SENNA ORAL) Take by mouth. - DIETARY SUPPLEMENT,MISC COMB14 ORAL Take by mouth. Biomega 1000mg containing vitamin E and pure anchovy - medical supply, miscellaneous (MISCELLANEOUS MEDICAL SUPPLY MIS) Neurotrophin - acetaminophen (TYLENOL) 325 mg tablet 2 tablets by ORAL/FEEDING TUBE route every 4 hours as needed for pain. Problem List As Of Date 09/22/2024 Noted Resolved Chest pain [R07.9] 04/25/2010 05/26/2024 Brain mass [G93.89] 03/17/2023 11/17/2023 Obesity, Class I, BMI 30-34.9 [E66.811] 03/17/2023 Brain compression (HCC) [G93.5] 03/20/2023 S/P brain surgery [Z98.890] 03/20/2023 11/17/2023 At risk for seizures [Z91.89] 03/20/2023 Cerebral edema (HCC) [G93.6] 03/20/2023 GBM (glioblastoma multiforme) (HCC) [C71.9] 04/07/2023 Syncope, unspecified syncope type [R55] 11/01/2023 11/03/2023 Examination of participant in clinical trial [Z*11/05/2023 11/17/2023 Forehead pain [R51.9] 11/05/2023 PONV (postoperative nausea and vomiting) [R11.2*05/26/2024 Acute post-operative pain [G89.18] 05/29/2024 Medications Discontinued During This Encounter Prescriptions - meclizine (ANTIVERT) 25 mg tab (Discontinued) Reported on 09/05/2024 - predniSONE (DELTASONE) 10 mg tablet (Discontinued) Reported on 08/12/2024 - pantoprazole DR (PROTONIX) 20 mg tablet (Discontinued) Reported on 08/22/2024 Encounter Status:Closed by CYNDEE JOYCE on 10/05/24 PROGRESS Observed: 09/22/2024 8:26 AM Status: COMPLETED Source: [facility] HNO ID: [id number] Author: CRISSY KRISHNA RN Service: ? Author Type: Registered Nurse Type: Progress Notes Filed: 09/22/2024 09:25 Note Text: September 22, [id number] Angel Keating here for treatment # 4 of 5. Transportation home verified: yes, with mother. Is patient on immunotherapy? No. ID verified with patient with two identifiers, name and birthdate. ID band applied. Crissy Krishna RN Robb assessed for the following: Does Angel Keating have any pain? No. Pain 0 on scale of 0-10 Does Angel Keating have: Unintentional weight loss or gain of greater than 10 pounds due to a change of appetite and/or intake: no Difficulty chewing and/or swallowing: no Fall risk assessment: Not at risk for falls Concerns about physical or emotional abuse: no Allergies reviewed with patient, yes. 0826 Decadron 4 mg po given prior to Gamma Knife SRS per order of Keisha Evans MD. 0827 Patient assisted to treatment room. Gamma Knife SRS begun. 911 Gamma Knife Stereotactic Radiosurgery Completed. 921 Pt discharged to home. Angel did not wait for written discharge instructions as agreed, so will give to patient on 09/23/24. Crissy Krishna RN CNOV Observed: 09/22/2024 7:00 AM Status: COMPLETED Source: [facility] Office Visit (NOGK[facility]) ANGEL KEATING ([id number]) 1970 M Date Time Provider Department 09/22/24 7:00 AM PLACEMENT RITESH SALDIVAR During your visit today, we recorded the following information about you: Crissy Krishna RN 09/22/2024 9:19 AM Addendum [facility] Discharge Instructions - As with any surgery there are risks and potential side effects. There is a slight chance of developing brain swelling days or months after the Gamma Knife radiosurgery. If you experience nausea, vomiting, severe headache, visual changes, difficulty speaking, a seizure or any other symptom unusual for you, contact your physician immediately or go to the nearest emergency room. These may or may not be symptoms of brain swelling. If you go to a physician or hospital other than the [facility] with any problem related to the Gamma Knife procedure, please notify the Gamma Knife nurse. - Rarely, patients experience pain the day after their radiosurgery. You may take non-aspirin pain medication, such as Ibuprofen or Tylenol, if you are having any discomfort. - Some patients are placed on steroids, such as Decadron, and an antacid, such as Pepcid, following their radiosurgery. Certain conditions require these medications to lessen the chance of swelling around the treated area. When prescribed, these medications are extremely important in the period immediately following your Gamma Knife treatment and must be taken exactly as directed. The Gamma Knife nurse will discuss your particular situation with you. Do not take any Decadron for the remainder of today. Begin following the below regimen on 09/24/24: Start the day after your Gamma Knife procedure: Thursday09/24/24 Decadron (Dexamethasone) 2 mg tablet: 1. Take 4 mg (2 tablets) twice a day for 3 days 2. Take 4 mg (2 tablets) once a day for 3 days 3. Take 2 mg (1 tablet) once a day for 3 days 4. Take 2 mg (1 tablet) every OTHER day for 3 days 5. Stop the Decadron Pepcid (Famotidine) 20 mg tablet: Continue to take Pepcid 20 mg (1 tablet) twice a day while on Decadron; stop Pepcid when you stop Decadron. Take Decadron with a meal or snack. Resume all other regular medications. Taking good care of your general health is an important step to recovery. Continue to eat well and get plenty of rest. At the time of discharge, you will be given your follow-up appointments with your neurosurgeon and radiation oncologist. If not, these appointment dates and times will be mailed to you. If you have any questions or problems, you may call the Gamma Knife nurse Thursday through Thursday 8:00 am to 3:00 pm at [phone] or your physician, Dr. Karen Narayanan at [phone] Thursday through Thursday 8:00 am to 5:00 pm. In the evening or on weekends, call [phone] or toll-free [phone] and ask the rope making machine operator to page your neurosurgeon's resident power generation plant operator. Crissy Krishna RN 09/22/2024 9:25 AM Signed September 22, 2024 08 Angel Keating here for treatment # 4 of 5. Transportation home verified: yes, with mother. Is patient on immunotherapy? No. ID verified with patient with two identifiers, name and birthdate. ID band applied. Crissy Krishna RN Robb assessed for the following: Does Angel Keating have any pain? No. Pain 0 on scale of 0-10 Does Angel Keating have: Unintentional weight loss or gain of greater than 10 pounds due to a change of appetite and/or intake: no Difficulty chewing and/or swallowing: no Fall risk assessment: Not at risk for falls Concerns about physical or emotional abuse: no Allergies reviewed with patient, yes. 825 Decadron 4 mg po given prior to Gamma Knife SRS per order of Keisha Evans MD. 826 Patient assisted to treatment room. Gamma Knife SRS begun. 911 Gamma Knife Stereotactic Radiosurgery Completed. 921 Pt discharged to home. Angel did not wait for written discharge instructions as agreed, so will give to patient on 09/23/24. Crissy Krishna RN Referring Provider: JOSE EVANS [[id number]] Allergies As of Date: 09/22/2024 (No Known Allergies) Date Reviewed: 09/22/2024 Reviewed by: Crissy Krishna, VAZQUEZ - Fully Assessed Reason for Visit: Procedure [88] Cmt: GKRS Primary Visit Diagnosis:GBM (glioblastoma multiforme) (HCC) [C71.9] Prescriptions as of 09/22/2024 - dexAMETHasone (DECADRON) 2 mg tablet Start the day after your Gamma Knife procedure:Take 4 mg (2 tablets) twice a day for 3 days then,Take 4 mg (2 tablets) once a day for 3 days then,Take 2 mg (1 tablet) once a day for 3 days then,Take 2 mg (1 tablet) every OTHER day for 3 days then Stop the Decadron Patient should start on 2024. - famotidine (PEPCID) 20 mg tablet Take 1 tablet by mouth two times a day. Patient should start on 2024. - modafinil (PROVIGIL) 100 mg tablet Take 1 tablet by mouth once daily for 42 days. - traZODone (DESYREL) 50 mg tablet Take 1 tablet by mouth daily at bedtime. - lacosamide (VIMPAT) 150 mg tab Take 1 tablet by mouth two times a day. - lomustine (GLEOSTINE) 100 mg capsule Take one 8mg Zofran on an empty stomach in the evening. Wait ONE hour. Take TWO 100mg capsule(s) Lomustine by mouth for a total dose of 200mg. Take one 8 mg Zofran twenty-four hours later. Take on Day 1 of each 42 day cycle. - methIMAzole (TAPAZOLE) 5 mg tablet Take TWO 10 mg tablets and ONE 5 mg tablet for a total dose of 25 mg, daily. - methIMAzole (TAPAZOLE) 10 mg tablet Take TWO 10 mg tablets and ONE 5 mg tablet for a total dose of 25 mg, daily. - predniSONE (DELTASONE) 10 mg tablet Day #1 - 6 tablets PO then Day #2 - 5 tablets PO then Day #3 - 4 tablets PO then Day #4 - 3 tablets PO then Day #5 - 2 tablets PO then Day #6 - 1 tablet PO - ondansetron (ZOFRAN) 8 mg tablet Take one tablet by mouth on an empty stomach in the evening one hour prior to chemo. Then take one tablet 24 hours after chemo. May repeat dose every 8-12 hours if needed to prevent nausea - meclizine (ANTIVERT) 25 mg tab Take 1 tablet by mouth three times a day. - valACYclovir (VALTREX) 1 gram tablet Take 1,000 mg by mouth three times a day. - midazolam (NAYZILAM) 5 mg/spray (0.1 mL) nasal spray Use 1 [place] in the nose as needed for up to 10 days. May repeat dose in alternate nostril after 10 minutes based on response and tolerability. - sennosides (SENNA ORAL) Take by mouth. - DIETARY SUPPLEMENT,MISC COMB14 ORAL Take by mouth. Biomega 1000mg containing vitamin E and pure anchovy - medical supply, miscellaneous (MISCELLANEOUS MEDICAL SUPPLY [facility] [place]) Neurotrophin - acetaminophen (TYLENOL) 325 mg tablet 2 tablets by ORAL/FEEDING TUBE route every 4 hours as needed for pain. - pantoprazole DR (PROTONIX) 20 mg tablet Take 1 tablet by mouth DAILY (6 AM). Facility-Administered Medications as of 09/22/2024 - dexAMETHasone sodium phosphate 4 mg for oral administration (DECADRON) Problem List As Of Date 09/22/2024 Noted Resolved Chest pain [R07.9] 04/25/2010 05/26/2024 Brain mass [G93.89] 03/17/2023 11/17/2023 Obesity, Class I, BMI 30-34.9 [E66.811] 03/17/2023 Brain compression (HCC) [G93.5] 03/20/2023 S/P brain surgery [Z98.890] 03/20/2023 11/17/2023 At risk for seizures [Z91.89] 03/20/2023 Cerebral edema (HCC) [G93.6] 03/20/2023 GBM (glioblastoma multiforme) (HCC) [C71.9] 04/07/2023 Syncope, unspecified syncope type [R55] 11/01/2023 11/03/2023 Examination of participant in clinical trial [Z*11/05/2023 11/17/2023 Forehead pain [R51.9] 11/05/2023 PONV (postoperative nausea and vomiting) [R11.2*05/26/2024 Acute post-operative pain [G89.18] 05/29/2024 Other instructions from your clinician: [facility] Discharge Instructions - As with any surgery there are risks and potential side effects. There is a slight chance of developing brain swelling days or months after the Gamma Knife radiosurgery. If you experience nausea, vomiting, severe headache, visual changes, difficulty speaking, a seizure or any other symptom unusual for you, contact your physician immediately or go to the nearest emergency room. These may or may not be symptoms of brain swelling. If you go to a physician or hospital other than the [facility] with any problem related to the Gamma Knife procedure, please notify the Gamma Knife nurse. - Rarely, patients experience pain the day after their radiosurgery. You may take non-aspirin pain medication, such as Ibuprofen or Tylenol, if you are having any discomfort. - Some patients are placed on steroids, such as Decadron, and an antacid, such as Pepcid, following their radiosurgery. Certain conditions require these medications to lessen the chance of swelling around the treated area. When prescribed, these medications are extremely important in the period immediately following your Gamma Knife treatment and must be taken exactly as directed. The Gamma Knife nurse will discuss your particular situation with you. Do not take any Decadron for the remainder of today. Begin following the below regimen on 09/24/24: Start the day after your Gamma Knife procedure: Thursday09/24/24 Decadron (Dexamethasone) 2 mg tablet: 1. Take 4 mg (2 tablets) twice a day for 3 days 2. Take 4 mg (2 tablets) once a day for 3 days 3. Take 2 mg (1 tablet) once a day for 3 days 4. Take 2 mg (1 tablet) every OTHER day for 3 days 5. Stop the Decadron Pepcid (Famotidine) 20 mg tablet: Continue to take Pepcid 20 mg (1 tablet) twice a day while on Decadron; stop Pepcid when you stop Decadron. Take Decadron with a meal or snack. Resume all other regular medications. Taking good care of your general health is an important step to recovery. Continue to eat well and get plenty of rest. At the time of discharge, you will be given your follow-up appointments with your neurosurgeon and radiation oncologist. If not, these appointment dates and times will be mailed to you. If you have any questions or problems, you may call the Gamma Knife nurse Thursday through Thursday 8:00 am to 3:00 pm at [phone] or your physician, Dr. Karen Narayanan at [phone] Thursday through Thursday 8:00 am to 5:00 pm. In the evening or on weekends, call [phone] or toll-free [phone] and ask the rope making machine operator to page your neurosurgeon's resident power generation plant operator. Encounter Status:Closed by CRISSY KRISHNA on 09/22/24 PROGRESS Observed: 09/22/2024 12:00 AM Status: COMPLETED Source: [facility] HNO ID: [id number] Author: CYNDEE JOYCE MD Service: Radiation Oncology Author Type: Physician Type: Progress Notes Filed: 09/22/2024 12:50 Note Text: ANGEL KEATING [id number] 09/22/2024 [facility] GAMMA KNIFE STEREOTACTIC RADIOSURGERY (SRS) DAILY PROCEDURE NOTE FRACTION NUMBER: 4 of 5 (multiple sites) CUMULATIVE DOSE: 24 Gy lt ant falx (Out of a planned 30 Gy) 24 Gy lt sup font (Out of a planned 30 Gy) 24 Gy lt tent (Out of a planned 30 Gy) 24 Gy lt temp 2 (Out of a planned 30 Gy) DIAGNOSIS: 52yo M with progression of left temporal GBM. PROCEDURE: Under my direct supervision the patient was set up on the treatment table and all treatment parameters were verified, including patient identity and treatment site. CBCT obtained which was co-registered using the treatment planning system. Adaptive replan was verified and approved. Once the beam was turned on, the patient position and target location were continuously monitored during delivery of the SRS using infrared tracking. At all points of decision-making with regard to patient setup, I conferred with the medical sonographer to approve the final setup. I was available throughout the SRS treatment to manage the execution of the treatment and make real-time adjustments in response to patient motion, target movement, or equipment issues to ensure accuracy and safety. The patient was evaluated by me after treatment and was discharged in stable condition. TREATMENT VOLUMES: GTV (Defined by neurosurgeon) PHYSICIST NAME: Redd Mcknight, PhD INTERVENTIONS: None ASSESSMENT/PLAN: Patient tolerated procedure well. We will continue as planned. Electronically Signed CYNDEE JOYCE M.D. 2:50 PM PROGRESS Observed: 09/21/2024 7:11 AM Status: COMPLETED Source: [facility] HNO ID: [id number] Author: DELMY BAEZ RN Service: ? Author Type: Registered Nurse Type: Progress Notes Filed: 09/21/2024 09:49 Note Text: September 21, [id number] Angel Keating here for treatment # 3 of 5. Transportation home verified: yes, with mother. Is patient on immunotherapy? No. ID verified with patient with two identifiers, name and birthdate. ID band applied. VAZQUEZ Anderson assessed for the following: Does Angel Keating have any pain? No. Pain 0 on scale of 0-10 Does Angel Keating have: Unintentional weight loss or gain of greater than 10 pounds due to a change of appetite and/or intake: no Difficulty chewing and/or swallowing: no Fall risk assessment: Not at risk for falls Concerns about physical or emotional abuse: no Allergies reviewed with patient, yes. [id number] Patient assisted to treatment room. Gamma Knife SRS begun. 930 Gamma Knife Stereotactic Radiosurgery Completed. 934 Decadron 4 mg po given post Gamma Knife SRS per order of Keisha Evans MD. 0937 Pt then discharged. VAZQUEZ Anderson RN CNOV Observed: 09/21/2024 7:00 AM Status: COMPLETED Source: [facility] Office Visit (ROSANNEA) ANGEL KEATING ([id number]) 1970 M Date Time Provider Department 09/21/24 7:00 AM PLACEMENT RITESH SALDIVAR During your visit today, we recorded the following information about you: Delmy Baez RN 09/21/2024 9:49 AM Signed September 21, [id number] Angellis Keating here for treatment # 3 of 5. Transportation home verified: yes, with mother. Is patient on immunotherapy? No. ID verified with patient with two identifiers, name and birthdate. ID band applied. Crissy Krishna RN Robb assessed for the following: Does Angel Keating have any pain? No. Pain 0 on scale of 0-10 Does Angel Keating have: Unintentional weight loss or gain of greater than 10 pounds due to a change of appetite and/or intake: no Difficulty chewing and/or swallowing: no Fall risk assessment: Not at risk for falls Concerns about physical or emotional abuse: no Allergies reviewed with patient, yes. [id number] Patient assisted to treatment room. Gamma Knife SRS begun. 930 Gamma Knife Stereotactic Radiosurgery Completed. 934 Decadron 4 mg po given post Gamma Knife SRS per order of Keisha Evans MD. 936 Pt then discharged. VAZQUEZ Anderson RN Referring Provider: JOSE EVANS [[id number]] Allergies As of Date: 09/21/2024 (No Known Allergies) Date Reviewed: 09/21/2024 Reviewed by: Delmy Baez RN - Fully Assessed Reason for Visit: Procedure [88] Cmt: GKRS Primary Visit Diagnosis:GBM (glioblastoma multiforme) (HCC) [C71.9] Order(s):dexAMETHasone sodium phosphate 4 mg for oral administration (DECADRON)Disp: Rfl: Prescriptions as of 09/21/2024 - modafinil (PROVIGIL) 100 mg tablet Take 1 tablet by mouth once daily for 42 days. - traZODone (DESYREL) 50 mg tablet Take 1 tablet by mouth daily at bedtime. - lacosamide (VIMPAT) 150 mg tab Take 1 tablet by mouth two times a day. - lomustine (GLEOSTINE) 100 mg capsule Take one 8mg Zofran on an empty stomach in the evening. Wait ONE hour. Take TWO 100mg capsule(s) Lomustine by mouth for a total dose of 200mg. Take one 8 mg Zofran twenty-four hours later. Take on Day 1 of each 42 day cycle. - methIMAzole (TAPAZOLE) 5 mg tablet Take TWO 10 mg tablets and ONE 5 mg tablet for a total dose of 25 mg, daily. - methIMAzole (TAPAZOLE) 10 mg tablet Take TWO 10 mg tablets and ONE 5 mg tablet for a total dose of 25 mg, daily. - predniSONE (DELTASONE) 10 mg tablet Day #1 - 6 tablets PO then Day #2 - 5 tablets PO then Day #3 - 4 tablets PO then Day #4 - 3 tablets PO then Day #5 - 2 tablets PO then Day #6 - 1 tablet PO - ondansetron (ZOFRAN) 8 mg tablet Take one tablet by mouth on an empty stomach in the evening one hour prior to chemo. Then take one tablet 24 hours after chemo. May repeat dose every 8-12 hours if needed to prevent nausea - meclizine (ANTIVERT) 25 mg tab Take 1 tablet by mouth three times a day. - valACYclovir (VALTREX) 1 gram tablet Take 1,000 mg by mouth three times a day. - midazolam (NAYZILAM) 5 mg/spray (0.1 mL) nasal spray Use 1 [place] in the nose as needed for up to 10 days. May repeat dose in alternate nostril after 10 minutes based on response and tolerability. - sennosides (SENNA ORAL) Take by mouth. - DIETARY SUPPLEMENT,MISC COMB14 ORAL Take by mouth. Biomega 1000mg containing vitamin E and pure anchovy - medical supply, miscellaneous (MISCELLANEOUS MEDICAL SUPPLY [facility]) Neurotrophin - acetaminophen (TYLENOL) 325 mg tablet 2 tablets by ORAL/FEEDING TUBE route every 4 hours as needed for pain. - pantoprazole DR (PROTONIX) 20 mg tablet Take 1 tablet by mouth DAILY (6 AM). Facility-Administered Medications as of 09/21/2024 - dexAMETHasone sodium phosphate 4 mg for oral administration (DECADRON) Problem List As Of Date 09/21/2024 Noted Resolved Chest pain [R07.9] 04/25/2010 05/26/2024 Brain mass [G93.89] 03/17/2023 11/17/2023 Obesity, Class I, BMI 30-34.9 [E66.811] 03/17/2023 Brain compression (HCC) [G93.5] 03/20/2023 S/P brain surgery [Z98.890] 03/20/2023 11/17/2023 At risk for seizures [Z91.89] 03/20/2023 Cerebral edema (HCC) [G93.6] 03/20/2023 GBM (glioblastoma multiforme) (HCC) [C71.9] 04/07/2023 Syncope, unspecified syncope type [R55] 11/01/2023 11/03/2023 Examination of participant in clinical trial [Z*11/05/2023 11/17/2023 Forehead pain [R51.9] 11/05/2023 PONV (postoperative nausea and vomiting) [R11.2*05/26/2024 Acute post-operative pain [G89.18] 05/29/2024 Prescriptions ordered this encounter Disp Refills Start End DEXAMETHASONE SODIUM PHOSPHATE 4 MG/* 09/21/2024 2024 Route: ORAL Encounter Status:Closed by DELMY BAEZ on 09/21/24 PROGRESS Observed: 09/21/2024 12:00 AM Status: COMPLETED Source: [facility] HNO ID: [id number] Author: KODY WARD MD Service: Radiation Oncology Author Type: Physician Type: Progress Notes Filed: 09/21/2024 12:59 Note Text: ANGEL KEATING [id number] 09/21/2024 [facility] GAMMA KNIFE STEREOTACTIC RADIOSURGERY (SRS) DAILY PROCEDURE NOTE FRACTION NUMBER: 3 of 5 (multiple sites) CUMULATIVE DOSE: 18 Gy lt temp (Out of a planned 30 Gy) 18 Gy lt ant falx (Out of a planned 30 Gy) 18 Gy lt sup front (Out of a planned 30 Gy) 18 Gy lt tent (Out of a planned 30 Gy) 18 Gy lt temp 2 (Out of a planned 30 Gy) DIAGNOSIS: 52 yo male with GBM of left temporal brain on 03/19/23; path [id number] negative, MGMT unmethylated, and TERTp promotor per TOP. Enrolled on [facility] [place] trial and randomized to [id number] arm s/p RT (6000 cGy/30 fx from ). Underwent re-do craniotomy on 05/27/24. Treated on CASE 3322 since 06/16/2024, w/ Lomustine started on 07/28/2024. MRI brain showed progression with new enhancing lesions. PROCEDURE: Under my direct supervision the patient was set up on the treatment table and all treatment parameters were verified, including patient identity and treatment site. CBCT obtained which was co- registered using the treatment planning system. Adaptive replan was verified and approved. Once the beam was turned on, the patient position and target location were continuously monitored during delivery of the SRS using infrared tracking. At all points of decision- making with regard to patient setup, I conferred with the medical sonographer to approve the final setup. I was available throughout the SRS treatment to manage the execution of the treatment and make real- time adjustments in response to patient motion, target movement, or equipment issues to ensure accuracy and safety. The patient was evaluated by me after treatment and was discharged in stable condition. TREATMENT VOLUMES: GTV (Defined by neurosurgeon) PHYSICIST NAME: Redd Mcknight, PhD INTERVENTIONS: None ASSESSMENT/PLAN: Patient tolerated procedure well. We will continue as planned. Electronically Signed KODY WARD M.D. 2:59 PM PROGRESS Observed: 09/20/2024 9:22 AM Status: COMPLETED Source: [facility] HNO ID: [id number] Author: DELMY BAEZ RN Service: ? Author Type: Registered Nurse Type: Progress Notes Filed: 09/20/2024 11:04 Note Text: September 20, 2024 0906 Angel Keating here for treatment # 2 of 5. Transportation home verified: yes, with mother. Is patient on immunotherapy? No. ID verified with patient with two identifiers, name and birthdate. ID band applied. VAZQUEZ Mahan assessed for the following: Does Angel Keating have any pain? No. Pain 0 on scale of 0-10 Does Angel Keating have: Unintentional weight loss or gain of greater than 10 pounds due to a change of appetite and/or intake: no Difficulty chewing and/or swallowing: no Fall risk assessment: Not at risk for falls Concerns about physical or emotional abuse: no Allergies reviewed with patient, yes. 1000 Decadron 4 mg po given prior to Gamma Knife SRS per order of MD Nathan. [id number] Patient assisted to treatment room. Gamma Knife SRS begun. 1102 Gamma Knife Stereotactic Radiosurgery Completed. 1104 Pt then discharged. Delmy Baez RN CNOV Observed: 09/20/2024 7:00 AM Status: COMPLETED Source: [facility] ANGEL KEATING ([id number]) 1970 M Date Time Provider Department 09/20/24 7:00 AM PLACEMENT RITESH [facility] During your visit today, we recorded the following information about you: Delmy Baez RN 09/20/2024 11:04 AM Signed September 20, [id number] Angel Keating here for treatment # 2 of 5. Transportation home verified: yes, with mother. Is patient on immunotherapy? No. ID verified with patient with two identifiers, name and birthdate. ID band applied. Delmy Baez RN Robb assessed for the following: Does Angel Keating have any pain? No. Pain 0 on scale of 0-10 Does Angel Keating have: Unintentional weight loss or gain of greater than 10 pounds due to a change of appetite and/or intake: no Difficulty chewing and/or swallowing: no Fall risk assessment: Not at risk for falls Concerns about physical or emotional abuse: no Allergies reviewed with patient, yes. 1000 Decadron 4 mg po given prior to Gamma Knife SRS per order of MD Nathan. [id number] Patient assisted to treatment room. Gamma Knife SRS begun. 1102 Gamma Knife Stereotactic Radiosurgery Completed. 1104 Pt then discharged. Delmy Baez RN Referring Provider: JOSE EVANS [[id number]] Allergies As of Date: 09/20/2024 (No Known Allergies) Date Reviewed: 09/20/2024 Reviewed by: Delmy Baez RN - Fully Assessed Reason for Visit: Procedure [88] Cmt: GKRS Primary Visit Diagnosis:GBM (glioblastoma multiforme) (HCC) [C71.9] Prescriptions as of 09/20/2024 - modafinil (PROVIGIL) 100 mg tablet Take 1 tablet by mouth once daily for 42 days. - traZODone (DESYREL) 50 mg tablet Take 1 tablet by mouth daily at bedtime. - lacosamide (VIMPAT) 150 mg tab Take 1 tablet by mouth two times a day. - lomustine (GLEOSTINE) 100 mg capsule Take one 8mg Zofran on an empty stomach in the evening. Wait ONE hour. Take TWO 100mg capsule(s) Lomustine by mouth for a total dose of 200mg. Take one 8 mg Zofran twenty-four hours later. Take on Day 1 of each 42 day cycle. - methIMAzole (TAPAZOLE) 5 mg tablet Take TWO 10 mg tablets and ONE 5 mg tablet for a total dose of 25 mg, daily. - methIMAzole (TAPAZOLE) 10 mg tablet Take TWO 10 mg tablets and ONE 5 mg tablet for a total dose of 25 mg, daily. - predniSONE (DELTASONE) 10 mg tablet Day #1 - 6 tablets PO then Day #2 - 5 tablets PO then Day #3 - 4 tablets PO then Day #4 - 3 tablets PO then Day #5 - 2 tablets PO then Day #6 - 1 tablet PO - ondansetron (ZOFRAN) 8 mg tablet Take one tablet by mouth on an empty stomach in the evening one hour prior to chemo. Then take one tablet 24 hours after chemo. May repeat dose every 8-12 hours if needed to prevent nausea - meclizine (ANTIVERT) 25 mg tab Take 1 tablet by mouth three times a day. - valACYclovir (VALTREX) 1 gram tablet Take 1,000 mg by mouth three times a day. - midazolam (NAYZILAM) 5 mg/spray (0.1 mL) nasal spray Use 1 [place] in the nose as needed for up to 10 days. May repeat dose in alternate nostril after 10 minutes based on response and tolerability. - sennosides (SENNA ORAL) Take by mouth. - DIETARY SUPPLEMENT,MISC COMB14 ORAL Take by mouth. Biomega 1000mg containing vitamin E and pure anchovy - medical supply, miscellaneous (MISCELLANEOUS MEDICAL SUPPLY [facility] [place]) Neurotrophin - acetaminophen (TYLENOL) 325 mg tablet 2 tablets by ORAL/FEEDING TUBE route every 4 hours as needed for pain. - pantoprazole DR (PROTONIX) 20 mg tablet Take 1 tablet by mouth DAILY (6 AM). Problem List As Of Date 09/20/2024 Noted Resolved Chest pain [R07.9] 04/25/2010 05/26/2024 Brain mass [G93.89] 03/17/2023 11/17/2023 Obesity, Class I, BMI 30-34.9 [E66.811] 03/17/2023 Brain compression (HCC) [G93.5] 03/20/2023 S/P brain surgery [Z98.890] 03/20/2023 11/17/2023 At risk for seizures [Z91.89] 03/20/2023 Cerebral edema (HCC) [G93.6] 03/20/2023 GBM (glioblastoma multiforme) (HCC) [C71.9] 04/07/2023 Syncope, unspecified syncope type [R55] 11/01/2023 11/03/2023 Examination of participant in clinical trial [Z*11/05/2023 11/17/2023 Forehead pain [R51.9] 11/05/2023 PONV (postoperative nausea and vomiting) [R11.2*05/26/2024 Acute post-operative pain [G89.18] 05/29/2024 Encounter Status:Closed by DELMY BAEZ on 09/20/24 PROGRESS Observed: 09/20/2024 12:00 AM Status: COMPLETED Source: [facility] HNO ID: [id number] Author: KODY WARD MD Service: Radiation Oncology Author Type: Physician Type: Progress Notes Filed: 09/20/2024 14:08 Note Text: ANGEL KEATING [id number] 09/20/2024 [facility] GAMMA KNIFE STEREOTACTIC RADIOSURGERY (SRS) DAILY PROCEDURE NOTE FRACTION NUMBER: 2 of 5 (multiple sites) CUMULATIVE DOSE: 12 Gy lt temp (Out of a planned 30 Gy) 12 Gy lt ant falx (Out of a planned 30 Gy) 12 Gy lt sup front (Out of a planned 30 Gy) 12 Gy lt tent (Out of a planned 30 Gy) 12 Gy lt temp 2 (Out of a planned 30 Gy) DIAGNOSIS: 52yo M with progression of left temporal GBM PROCEDURE: Under my direct supervision the patient was set up on the treatment table and all treatment parameters were verified, including patient identity and treatment site. CBCT obtained which was co-registered using the treatment planning system. Adaptive replan was verified and approved. Once the beam was turned on, the patient position and target location were continuously monitored during delivery of the SRS using infrared tracking. At all points of decision-making with regard to patient setup, I conferred with the medical sonographer to approve the final setup. I was available throughout the SRS treatment to manage the execution of the treatment and make real-time adjustments in response to patient motion, target movement, or equipment issues to ensure accuracy and safety. The patient was evaluated by me after treatment and was discharged in stable condition. TREATMENT VOLUMES: GTV (Defined by neurosurgeon) PHYSICIST NAME: Redd Mcknight, PhD INTERVENTIONS: None ASSESSMENT/PLAN: Patient tolerated procedure well. We will continue as planned. Electronically Signed KODY WARD M.D. 52:08 PM PROGRESS Observed: 09/19/2024 9:30 AM Status: COMPLETED Source: [facility] HNO ID: [id number] Author: PRECIOUS DE LA CRUZ Tech Service: Radiology Author Type: Tracer Lathe Set Up Operator Type: Progress Notes Filed: 09/19/2024 08:16 Note Text: Radiology Service Progress Note PATIENT NAME: Angel Keating DATE OF SERVICE: September 19, 2024 TIME: 8:16 AM PATIENT IDENTITY VERIFICATION COMPLETED USING TWO (2) IDENTIFIERS: Name and Date of confirmed by patient verbally. FALL SCREENING: Has the patient had 2 falls in the last year or 1 fall with injury or currently using an Ambulatory Assistive Device (Walker, Cane, Wheelchair, Crutches, etc.)? No PATIENT GENDER DATA: Assigned male at PATIENT RELEVANT IMPLANT DATA REVIEWED: Yes PATIENT PRESENTS WITH AN IMPLANTABLE OR ATTACHED PLATE FINISHER: No RADIOLOGY DEPARTMENT: CT; Exam(s) Completed: Brain MASK PERIPHERAL IV DATA: Not applicable SIGNED BY: Philip Bernardo September 19, 2024 8:16 AM CNOV Observed: 09/19/2024 9:00 AM Status: COMPLETED Source: [facility] Office Visit (NOGKCA) ANGEL KEATING ([id number]) 1970 M Date Time Provider Department 09/19/24 9:00 AM PLACEMENT [facility] During your visit today, we recorded the following information about you: Delmy Baez RN 09/19/2024 2:12 PM Signed September 19, 2024 0652 Angel arrived ambulatory with: mother. Transportation home verified: yes, with mother. Angel here for today for imaging, mask fitting, pre-planning for Icon mask based Gamma Knife Stereotactic Radiosurgery by radiation therapist, and single session mask based treatment. ID verified with patient with two identifiers, name and birthdate. ID band applied. Delmy Baez RN Angel assessed for the following: Does Angel have any pain? No. Pain 0 on scale of 0-10 Does Angel have: Unintentional weight loss or gain of greater than 10 pounds due to a change of appetite and/or intake: no Difficulty chewing and/or swallowing: no Fall risk assessment: Not at risk for falls Concerns about physical or emotional abuse: no Allergies reviewed with patient, yes. [id number] Mask completed. To imaging for CT Scan and MRI. Angel Keating returned to department for treatment # 1 of 5. Is patient on immunotherapy? No. 1244 Decadron 4 mg po given prior to Gamma Knife SRS per order of MD Nathan. [id number] Patient assisted to treatment room. Gamma Knife SRS begun. 1410 Gamma Knife Stereotactic Radiosurgery Completed. 1411 Pt then discharged. Delmy Baez RN Referring Provider: JOSE EVANS [[id number]] Allergies As of Date: 09/19/2024 (No Known Allergies) Date Reviewed: 09/19/2024 Reviewed by: Delmy Baez RN - Fully Assessed Reason for Visit: Procedure [88] Cmt: GKRS Primary Visit Diagnosis:GBM (glioblastoma multiforme) (HCC) [C71.9] Prescriptions as of 09/19/2024 - modafinil (PROVIGIL) 100 mg tablet Take 1 tablet by mouth once daily for 42 days. - traZODone (DESYREL) 50 mg tablet Take 1 tablet by mouth daily at bedtime. - lacosamide (VIMPAT) 150 mg tab Take 1 tablet by mouth two times a day. - lomustine (GLEOSTINE) 100 mg capsule Take one 8mg Zofran on an empty stomach in the evening. Wait ONE hour. Take TWO 100mg capsule(s) Lomustine by mouth for a total dose of 200mg. Take one 8 mg Zofran twenty-four hours later. Take on Day 1 of each 42 day cycle. - methIMAzole (TAPAZOLE) 5 mg tablet Take TWO 10 mg tablets and ONE 5 mg tablet for a total dose of 25 mg, daily. - methIMAzole (TAPAZOLE) 10 mg tablet Take TWO 10 mg tablets and ONE 5 mg tablet for a total dose of 25 mg, daily. - predniSONE (DELTASONE) 10 mg tablet Day #1 - 6 tablets PO then Day #2 - 5 tablets PO then Day #3 - 4 tablets PO then Day #4 - 3 tablets PO then Day #5 - 2 tablets PO then Day #6 - 1 tablet PO - ondansetron (ZOFRAN) 8 mg tablet Take one tablet by mouth on an empty stomach in the evening one hour prior to chemo. Then take one tablet 24 hours after chemo. May repeat dose every 8-12 hours if needed to prevent nausea - meclizine (ANTIVERT) 25 mg tab Take 1 tablet by mouth three times a day. - valACYclovir (VALTREX) 1 gram tablet Take 1,000 mg by mouth three times a day. - midazolam (NAYZILAM) 5 mg/spray (0.1 mL) nasal spray Use 1 [place] in the nose as needed for up to 10 days. May repeat dose in alternate nostril after 10 minutes based on response and tolerability. - sennosides (SENNA ORAL) Take by mouth. - DIETARY SUPPLEMENT,MISC COMB14 ORAL Take by mouth. Biomega 1000mg containing vitamin E and pure anchovy - medical supply, miscellaneous (MISCELLANEOUS MEDICAL SUPPLY [facility]) Neurotrophin - acetaminophen (TYLENOL) 325 mg tablet 2 tablets by ORAL/FEEDING TUBE route every 4 hours as needed for pain. - pantoprazole DR (PROTONIX) 20 mg tablet Take 1 tablet by mouth DAILY (6 AM). Problem List As Of Date 09/19/2024 Noted Resolved Chest pain [R07.9] 04/25/2010 05/26/2024 Brain mass [G93.89] 03/17/2023 11/17/2023 Obesity, Class I, BMI 30-34.9 [E66.811] 03/17/2023 Brain compression (HCC) [G93.5] 03/20/2023 S/P brain surgery [Z98.890] 03/20/2023 11/17/2023 At risk for seizures [Z91.89] 03/20/2023 Cerebral edema (HCC) [G93.6] 03/20/2023 GBM (glioblastoma multiforme) (HCC) [C71.9] 04/07/2023 Syncope, unspecified syncope type [R55] 11/01/2023 11/03/2023 Examination of participant in clinical trial [Z*11/05/2023 11/17/2023 Forehead pain [R51.9] 11/05/2023 PONV (postoperative nausea and vomiting) [R11.2*05/26/2024 Acute post-operative pain [G89.18] 05/29/2024 Encounter Status:Closed by DELMY BAEZ on 09/19/24 PROGRESS Observed: 09/19/2024 8:27 AM Status: COMPLETED Source: [facility] HNO ID: [id number] Author: DELMY BAEZ RN Service: ? Author Type: Registered Nurse Type: Progress Notes Filed: 09/19/2024 14:12 Note Text: September 19, 2024 0652 Angel arrived ambulatory with: mother. Transportation home verified: yes, with mother. Angel here for today for imaging, mask fitting, pre-planning for Icon mask based Gamma Knife Stereotactic Radiosurgery by radiation therapist, and single session mask based treatment. ID verified with patient with two identifiers, name and birthdate. ID band applied. Delmy Baez RN Angel assessed for the following: Does Angel have any pain? No. Pain 0 on scale of 0-10 Does Angel have: Unintentional weight loss or gain of greater than 10 pounds due to a change of appetite and/or intake: no Difficulty chewing and/or swallowing: no Fall risk assessment: Not at risk for falls Concerns about physical or emotional abuse: no Allergies reviewed with patient, yes. [id number] Mask completed. To imaging for CT Scan and MRI. Angel Keating returned to department for treatment # 1 of 5. Is patient on immunotherapy? No. 1244 Decadron 4 mg po given prior to Gamma Knife SRS per order of MD Nathan. [id number] Patient assisted to treatment room. Gamma Knife SRS begun. 1410 Gamma Knife Stereotactic Radiosurgery Completed. 1411 Pt then discharged. Delmy Baez RN PROGRESS Observed: 09/19/2024 8:20 AM Status: COMPLETED Source: [facility] HNO ID: [id number] Author: CATHY CARABALLO RN Service: Nursing Author Type: Registered Nurse Type: Progress Notes Filed: 09/19/2024 07:40 Note Text: Radiology Service Progress Note DATE OF SERVICE: September 19, 2024 TIME: 7:36 AM PATIENT WEIGHT: 221 LBS PATIENT IDENTITY VERIFICATION COMPLETED USING TWO (2) STANDARD IDENTIFIERS: Name and Date of confirmed by patient verbally. FALL SCREENING: Has the patient had 2 falls in the last year or 1 fall with injury or currently using an Ambulatory Assistive Device (Walker, Cane, Wheelchair, Crutches, etc.)? No PATIENT GENDER DATA: Assigned male at ALLERGIES: Reviewed and unchanged CONTRAST ALLERGY: No EXAM: MRI - CONTRAST TYPE: GROUP II IV SITE: Ambulatory: A power injectable Mediport was accessed in the Right chest with a 0.75 inch 20 gauge needle. Blood Return, Flushed easily with normal saline, Good Blood Return Post Injection, and No Complications and A Saline lock was inserted per protocol IV SITE APPEARANCE: Clean,Dry and Intact SIGNATURE: Cathy Caraballo RN PATIENT NAME: Angel Keating DATE: September 19, 2024 TIME: 7:36 AM PROGRESS Observed: 09/19/2024 8:20 AM Status: COMPLETED Source: [facility] HNO ID: [id number] Author: JEMIMA NUÑEZ RT(R) Service: Radiology Author Type: Technologist Type: Progress Notes Filed: 09/19/2024 08:08 Note Text: Summary: mri Radiology Service Progress Note PATIENT NAME: Angel Keating DATE OF SERVICE: September 19, 2024 TIME: 7:59 AM PATIENT IDENTITY VERIFICATION COMPLETED USING TWO (2) IDENTIFIERS: Name and Date of confirmed by patient verbally and Name and Date of confirmed by identification band. FALL SCREENING: Has the patient had 2 falls in the last year or 1 fall with injury or currently using an Ambulatory Assistive Device (Walker, Cane, Wheelchair, Crutches, etc.)? No PATIENT GENDER DATA: Assigned male at PATIENT RELEVANT IMPLANT DATA REVIEWED: Yes PATIENT PRESENTS WITH AN IMPLANTABLE OR ATTACHED PLATE FINISHER: No RADIOLOGY DEPARTMENT: MR; Exam(s) Completed: Head: Localization gamma PERIPHERAL IV DATA: Site assessment: Clean,Dry and Intact, Site disposition Discontinued SIGNED BY: Jemima Nuñez RT(R) September 19, 2024 7:[address] BRAIN WO IVCON Observed: 09/19/2024 8:15 AM Status: F Source: [facility] * * *Final Report* * * DATE OF EXAM: Sep 19 2024 8:15AM CAC 0504 - CT BRAIN WO IVCON / PROCEDURE REASON: GBM (glioblastoma multiforme) (HCC) * * * * Physician Interpretation * * * * EXAMINATION: CT BRAIN WO IVCON CLINICAL HISTORY: Cpt 88224 CT Guidance for Gamma Knife Purposes Post Frame CT TECHNIQUE: Serial axial images without IV contrast were obtained from the vertex to the foramen magnum. MQ: [id number] CT Radiation dose: Integrated Dose-Length Product (DLP) for this visit = 961 mGy*cm CT Dose Reduction Employed: No dose reduction techniques were required COMPARISON: Same-day brain MRI. RESULT: Left pterional craniotomy. CSF signal intensity collection overlying the left pterional craniotomy likely reflecting pseudomeningocele is unchanged. Operative defect involving the left frontal operculum and anterior temporal pole is unchanged. Surrounding areas of reduced attenuation. Chronic appearing extra-axial collection over the left frontal convexity measuring 7 mm in greatest axial thickness with areas of linear increased attenuation that may reflect septations and or dural thickening. Acute-subacute appearing and possibly partially loculated blood products are depicted more inferiorly over the left anterior frontal convexity measuring up to 10 mm in greatest thickness for example on image 60 of series 2. Enhancing dural based lesions along the falx on the left frontal convexity are more clearly depicted on MRI examination following intravenous gadolinium administration. No acute intracranial process otherwise. Mild brain parenchymal volume loss. Ventricular system is unchanged in caliber. No mass effect or midline shift. Basal cisterns are clear. Orbital contents are within normal limits. Paranasal sinuses and mastoid air cells are clear. IMPRESSION: Examination performed for preprocedural planning purposes. Call Worker Person: EMILI Transcribe Date/Time: Sep 19 2024 9:22A Dictated by : BAN RITCHIE DO This examination was interpreted and the report reviewed and electronically signed by: BAN RITCHIE DO on Sep 19 2024 9:27AM EST [id number] MRI BRAIN LOCAL W IVCON Observed: 2024 8:09 AM Status: F Source: [facility] * * *Final Report* * * DATE OF EXAM: Sep 19 2024 8:09AM CAM 0289 - MRI BRAIN LOCAL W IVCON / PROCEDURE REASON: GBM (glioblastoma multiforme) (HCC) * * * * Physician Interpretation * * * * EXAMINATION: MRI BRAIN LOCAL W IVCON HISTORY: GBM (glioblastoma multiforme) (HCC) - - - - Other (document in comments), this is for gk planning purposes - [id number] - - - - TECHNIQUE: Brain MRI localization exam. M: [id number] MR Contrast: Elucirem Contrast Dose: 10 cc Route of Administration: IV COMPARISON: Brain MRI 08/22/2024 RESULT: Compared to the 08/22/2024 examination, the postoperative changes of the brain appears similar. Left pterional craniotomy and overlying pseudomeningocele. Subgaleal scalp collection is slightly increased in greatest transaxial orthogonal dimensions, now measuring 64 x 20 mm, previously 61 x 14 mm. Extra-axial collection over the left frontal convexity with mixed intrinsic signal intensity is slightly decreased in greatest transaxial thickness. Dural thickening overlying the left frontal operculum with areas of slightly more nodular enhancement seen on image 98 measuring up to 7 mm. Areas of residual nodular dural thickening along the right mesial temporal lobe on image 85 measuring 12 mm and abutting the left supraclinoid ICA without discrete compromise of the luminal flow void. This is slightly increased in size from 08/22/2024, particularly more inferiorly and medially extending toward the vicinity of the ipsilateral amygdala. An additional discontiguous focus of enhancement is depicted slightly more anteriorly on image 88 measuring 7 mm. Small nodular enhancing focus measuring 4 mm along the left tentorium is new from the prior. Nodular enhancing extra-axial focus along the left paramedian falx and superior frontal gyrus has increased in size, now measuring 14 mm in greatest anteroposterior dimension, previously 9. Additional extra-axial heterogeneously enhancing mass overlying the left middle frontal gyrus superiorly measures up to 15 mm, previously 6 mm with no intrinsic necrosis. Remainder the brain is unchanged. No new mass effect or midline shift. Stable caliber of the ventricular system. IMPRESSION: Examination performed for preprocedural planning purposes. New area of nodular enhancement along the anterior margin of the left temporal resection site. New small nodular focus of enhancement along the left tentorial leaflet. Slight increase size/extension of the more dominant nodular enhancement along the left mesial temporal lobe. Increased size of extra-axial heterogeneously enhancing masses along the falx and over the left middle frontal gyrus with new intrinsic necrosis. Increased size of presumed pseudomeningocele in the scalp overlying the left pterional craniotomy. Call Worker Person: [facility] Transcribe Date/Time: Sep 19 2024 10:02A Dictated by : BAN RITCHIE DO This examination was interpreted and the report reviewed and electronically signed by: BAN RITCHIE DO on Sep 19 2024 10:11AM EST [id number] PROGRESS Observed: 09/19/2024 12:00 AM Status: COMPLETED Source: [facility] HNO ID: [id number] Author: CYNDEE JOYCE MD Service: Radiation Oncology Author Type: Physician Type: Progress Notes Filed: 09/19/2024 12:36 Note Text: ANGEL KEATING [id number] 09/19/2024 [facility] Department of Radiation Oncology [facility] RADIATION ONCOLOGY GAMMA KNIFE TREATMENT PLANNING NOTE For reasons stated in the consult note, ANGEL KEATING is a candidate for palliative radiosurgery. Based on review and interpretation of the relevant diagnostic studies together with the exam findings, ANGEL KEATING was imaged on 09/19/2024. The CT and MRI imaging was fused and checked in Gamma Plan by the radiation oncologist/neurosurgeon and physicist and the target volume to be treated as well as the critical normal structure(s) were delineated. After participating in the treatment planning process with neurosurgery and medical physics, I approved the best plan to deliver my prescribed course of radiosurgery. The target tissue was planned using Gamma Plan to allow for the best isodose distribution and dosimetry/DVH. The dose to normal tissue and target tissue was confirmed upon review of the calculated dose. A completed summary of this plan dated 09/19/2024 incorporated herein by reference includes dose, isodose distribution and DVH. Electronically Signed Cyndee Joyce M.D. / [facility] 2:36 PM PROGRESS Observed: 09/19/2024 12:00 AM Status: COMPLETED Source: [facility] HNO ID: [id number] Author: CYNDEE JOYCE MD Service: Radiation Oncology Author Type: Physician Type: Progress Notes Filed: 09/22/2024 12:49 Note Text: ANGEL KEATING [id number] 09/19/2024 [facility] GAMMA KNIFE STEREOTACTIC RADIOSURGERY (SRS) DAILY PROCEDURE NOTE FRACTION NUMBER: 1 of 5 (multiple sites) CUMULATIVE DOSE: 6 Gy lt temp (Out of a planned 30 Gy) 6 Gy lt ant falx (Out of a planned 30 Gy) 6 Gy lt sup front (Out of a planned 30 Gy) 6 Gy lt tent (Out of a planned 30 Gy) 6 Gy lt temp 2 (Out of a planned 30 Gy) DIAGNOSIS: 52yo M with progression of left temporal GBM. PROCEDURE: Under my direct supervision the patient was set up on the treatment table and all treatment parameters were verified, including patient identity and treatment site. CBCT obtained which was co-registered using the treatment planning system. Adaptive replan was verified and approved. Once the beam was turned on, the patient position and target location were continuously monitored during delivery of the SRS using infrared tracking. At all points of decision-making with regard to patient setup, I conferred with the medical sonographer to approve the final setup. I was available throughout the SRS treatment to manage the execution of the treatment and make real-time adjustments in response to patient motion, target movement, or equipment issues to ensure accuracy and safety. The patient was evaluated by me after treatment and was discharged in stable condition. TREATMENT VOLUMES: GTV (Defined by neurosurgeon) PHYSICIST NAME: Fritz Cheatham INTERVENTIONS: None ASSESSMENT/PLAN: Patient tolerated procedure well. We will continue as planned. Electronically Signed CYNDEE JOYCE M.D. 2:49 PM PROGRESS Observed: 09/19/2024 12:00 AM Status: COMPLETED Source: [facility] HNO ID: [id number] Author: CYNDEE JOYCE MD Service: Radiation Oncology Author Type: Physician Type: Progress Notes Filed: 09/19/2024 12:35 Note Text: ANGEL KEATING [id number] 09/19/2024 [facility] Department of Radiation Oncology [facility] RADIATION ONCOLOGY GAMMA KNIFE SIMULATION NOTE DATE OF SIMULATION: 09/19/2024 MACHINE: Gamma Knife DIAGNOSIS: 52 yo male with GBM of left temporal brain on 03/19/23; path [id number] negative, MGMT unmethylated, and TERTp promotor per TOP. Enrolled on GCAR [place] trial and randomized to [id number] arm s/p RT (6000 cGy/30 fx from ). Underwent re-do craniotomy on 05/27/24. Treated on CASE 3322 since 06/16/2024, w/ Lomustine started on 07/28/2024. MRI brain showed progression with new enhancing lesions. AREA:Brain PATIENT POSITION: Supine. CONTRAST: None PROTOCOL: None FIXATION DEVICE: In order to achieve accurate and reproducible treatments, the patient is immobilized with custom 3-point mask and mold care. PROCEDURE: A time-out was conducted and recorded by the therapist. Patient was simulated on the Gamma Knife for SRS therapy. ASSESSMENT/PLAN: Patient tolerated simulation procedure well. Treatments will be initiated after treatment planning. Electronically Signed Cyndee Joyce M.D. 512:35 PM PROGRESS Observed: 09/09/2024 12:06 AM Status: COMPLETED Source: [facility] HNO ID: [id number] Author: PATRICIA ENRIQUEZ MD Service: ? Author Type: Physician Type: Progress Notes Filed: 09/09/2024 00:15 Note Text: [facility] Follow up Clinic visit [facility] Team: -Jose Evans MD, Neurosurgery -SAV Rodriguez, Radiation Oncology -Patricia Enriquez MD, Neuro-Oncology DIAGNOSIS: MGMT unmethylated Glioblastoma. 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 He initially presented with anxiety-attack like episodes going back to January 2023 as well as a fall, without loss of consciousness but +trauma to head around 02/27/2023. On 03/16/2023, he presented to [facility] ED with word finding difficulty, report of one-time fever of 101 in February, anxiety, increased thirst and urination and was found to have a L temporal mass with midline subfalcine shift concerning for high grade glioma. He was afebrile with normal glucose level and electrolytes. He underwent gross total resection by Dr. Evans on 03/19/2023, revealing an MGMT unmethylated glioblastoma, WHO Grade 4. He was discharged on keppra 750mg BID and dexamethasone taper. He established care with Dr. Enriquez and given paroxysmal episodes of anxiety, he was concerned about temporal lobe epilepsy and advised lifelong AED to reduce seizure risk. The patient was exhibiting some fatigue and dullness, so a cross taper from keppra to vimpat, with goal of vimpat 150mg BID. The patient expressed interest in clinical trials and enrolled onto GCAR AGILE. He was randomized to the [id number] arm (cyclic peptide modulating tumor microenvironment). TREATMENT HISTORY Gross total resection [03/19/2023] [facility] Dr. Evans MGMT unmethylated Glioblastoma. L temporal GCAR AGILE, randomized to [id number] IV twice weekly arm + Standard concurrent chemotherapy and radiation (04/20- 05/29/2023) [facility] Dr. Joyce and Dr. Enriquez Adjuvant temozolomide PO D1-5 q 28 days C1 07/01/23, will start 07/03 150mg/m2 C2 07/27/23 C3 08/31/23 C4 09/21/23 C5 10/26/23 C6 11/23/23 C7 12/28/23 STOP ADJ TMZ as the clinical; trial calls for up to 6 cycles. For some reason the patient had an extra cycle of Adj TMZ. Adjuvant [id number] during Maintenance: Cycle 7 Week 1 - infusions on 12/14/2023 (D1) and 12/17/2023 (D4) Cycle 7 Week 2 - infusions on 12/21/2023 (D8) and 12/24/2023 (D11) Cycle 7 Week 3 - infusions on 12/28/2023 (D15) and 12/31/2023 (D18) Cycle 7 Week 4 - infusions on 01/05/2024 (D22) and 01/08/2024 (D25) Cycle 8 Week 5 - infusions on 01/11/2024 and 01/14/2024 02/08/2024: MRI shows progression 02/08/24 BTB Referrals to se Dr. Evans for possible surgery. If surgery offered, he can be enrolled in CASE 3322 clinical trial with methimazole + chemo. 02/18/24: Dr Evans recommended NO surgery. 02/26/24 Lomustine 90mg/m2 C#1 02/25-04/08/24 04/12/24 Tumor progression, increased CBV 04/14/2024 BTB Referrals to se Dr. Evans for possible surgery. The patient is also eligible, for CASE 3322 clinical trial with methimazole + chemo. 04/28/2024 Jose Evans MD since the patient, and recommended surgery. 04/28/2024 clinical trials team, saw the patient, the patient is eligible, for for CASE 3322 clinical trial with methimazole + chemo. Patient signed consent. Treatment plan: Pre-operative treatment Phase -Methimazole - Pre-Op period: 05/24/2024 to 05/27/2024 (last dose is DAY of surgery) -Dose level 2 (25 mg daily) Surgical resection 05/27/[address] 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 C1D1 (10-28 days after surgery) -Scheduled for 06/16/2024 (20 days post op) -Methimazole - Post-Op period: 05/27/2024- TBD -Dose level 2 (25 mg judy C1D1 lomustine 110 mg/m2 - 07/28/24 - NOTE DATE ENTERED IN ERROR - PATIENT DID NOT TAKE CHEMO ON 08/07/2024 C2D1 lomustine -- planned for 09/07/24 08/22/2024 Brain MR - new enhancing nodules. CORRECTED DATES OF CHEMO: C1D1 JUN 28, 2024 09/05/2024 NOTE: RE; DISCREPANCY ON LOMUSTINE CYCLE. The patient recalled that he had taken Lomustine cycle No 1 [after 2nd surgery (05/27/2024)] on ~mid June 2024 and that he was due for cycle No 2 for early August 2024 We reviewed the pharmacy records and indeed the patient took cycle No 1 of Lomustine on 06/28/25, and he was due for next cycle on ~Aug 12, 2024. Pharmacy note confirm that lomustine was delivered. Although per patient knowledge that he needed to start his chemo, cycle No 2 of lomustine on 1st week of Aug 2024 - however he did not started as he was instructed that the chemo was to start not until Sep 07, 2024. Hence the patient had not started his chemo. 09/05/2024: The patient brought lomustine capsules, cycle No 2, as he noted - issued on 08/05/2024 - which should have started on Aug 12, 2024. The reason for the discrepancy - likely entry data error of when he took cycle No 1 of lomustine - erroneously was entered as 07/28/2025. September 07, 2024 In person visit. The patient is accompanied by mother Today visit is to go over any pending issues form the clinical trial CASE 3322 clinical trial with methimazole + chemo === Important events the patient would hope to attend: November 28 son's graduation Daughter graduates college December 10. Late Apr 29- youngest step daughter ==== Last Chemo: see above Current Steroids dose: N/A Current AED Dose: lacosamide (VIMPAT) 150 mg tab Take 1 tablet by mouth two times a day. 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 Evans; path = GBM ORTHOPEDICS SURGERY HX 1996 knee surgery SHX CRANIOTOMY Left 03/19/2023 Family History: FAMILY HISTORY Problem Relation Age of Onset Diabetes Father Coronary Artery Disease Father Stroke Father Breast Cancer Mother None Sister Anesthesia Problems No Family History Social History Tobacco Use Smoking status: Former Current packs/day: 1.00 Average packs/day: 1 pack/day for 4.0 years (4.0 ttl pk-yrs) Types: Cigarettes Smokeless tobacco: Never Vaping Use Vaping status: Never Used Substance Use Topics Alcohol use: Not Currently Comment: three beers a month - per pt [id number] Drug use: Never Allergies: Patient has no known allergies. Current Outpatient Medications Medication Sig lacosamide (VIMPAT) 150 mg tab Take 1 tablet by mouth two times a day. iv contrast (will be provided with radiology test) MRI Brain Inject, intravenously, once for 1 dose.No IV access, insert saline lock prior to beginning of sedation, infusion, injection of imaging exam.Discontinue saline lock post exam. If Pt. has a central line or IVAD, may access for administration according to line specific nursing protocol.Once exam is complete flush line and de-access according to line specific nursing protocol in the MR contrast administration guidelines link iv contrast (will be provided with radiology test) MRI Brain Inject, intravenously, once for 1 dose.No IV access, insert saline lock prior to beginning of sedation, infusion, injection of imaging exam.Discontinue saline lock post exam. If Pt. has a central line or IVAD, may access for administration according to line specific nursing protocol.Once exam is complete flush line and de-access according to line specific nursing protocol in the MR contrast administration guidelines link meclizine (ANTIVERT) 25 mg tab Take 1 tablet by mouth three times a day. valACYclovir (VALTREX) 1 gram tablet Take 1,000 mg by mouth three times a day. ondansetron (ZOFRAN) 8 mg tablet Take one hour prior to temozolomide prescription then every 8 hours as needed for nausea. temozolomide (TEMODAR) 180 mg capsule Fast for one hour after taking Zofran and then take ONE 180 mg capsule, plus ONE 140 mg and TWO 5 mg capsules to total 330 mg. Then, fast for one hour after taking. Take on days 1-5 of your 28 day cycle. Temozolomide 140 mg capsule Fast for one hour after taking Zofran and then take ONE 180 mg capsule, plus ONE 140 mg and TWO 5 mg capsules to total 330 mg. Then, fast for one hour after taking. Take on days 1-5 of your 28 day cycle. temozolomide (TEMODAR) 5 mg capsule Fast for one hour after taking Zofran and then take ONE 180 mg capsule, plus ONE 140 mg and TWO 5 mg capsules to total 330 mg. Then, fast for one hour after taking. Take on days 1-5 of your 28 day cycle. ondansetron (ZOFRAN) 8 mg tablet Take 1 tablet (8 mg) by mouth one hour before taking temozolomide dosing. Take on an empty stomach (Patient taking differently: Take 1 tablet (8 mg) by mouth one hour before taking temozolomide dosing. Take on an empty stomach) sennosides (SENNA ORAL) Take by mouth. DIETARY SUPPLEMENT,[facility] COMB14 ORAL Take by mouth. Biomega 1000mg containing vitamin E and pure anchovy medical supply, [facility] ([employer]ANE[employer] MEDICAL SUPPLY [facility]) Neurotrophin acetaminophen (TYLENOL) 325 mg tablet 2 tablets by ORAL/FEEDING TUBE route every 4 hours as needed for pain. pantoprazole DR (PROTONIX) 20 mg tablet Take 1 tablet by mouth DAILY (6 AM). midazolam (NAYZILAM) 5 mg/spray (0.1 mL) nasal spray Use 1 [place] in the nose as needed for up to 10 days. May repeat dose in alternate nostril after 10 minutes based on response and tolerability. No current facility-administered medications for this visit. Review of systems: Constitutional: No recent fever or weight loss. Eyes: No history of glaucoma or cataracts. ENMT: No recent ear infection, nasal congestion, mouth sores or sore throat. CV: No history of chest pain, palpitations or leg swelling. Respiratory: No history of SOB, asthma or recent cough. Gastrointestinal: No history of nausea, vomiting, dysphagia or abdominal pain. Genitourinary: No history of hematuria or dysuria. Musculoskeletal: No complaint of arthritis, unstable gait or arm/leg weakness. Psychiatric: No history of hallucinations or depression or anxiety. ROS Neurological: No complaint of headache. No complaint of tinnitus. No complaint of decreased hearing. No complaint of diplopia. No complaints of decreased visual acuity. No complaint of arm/leg numbness. No problem with limb coordination. No complaint of syncope, seizures or disorientation. Objective Physical Exam: There were no vitals taken for this visit. GENERAL EXAM: General appearance: Well appearing, alert, in no acute distress NEUROLOGICAL EXAM: Higher integrative functions: Oriented to person, place AND time. Attention Span and Concentration: Good. Language: Accurate naming of objects. Good comprehension. Fund of Knowledge: Good. 2nd CN: Full visual land. 3rd,4th,6th CN: Pupils equal, round, react to light, full extraocular movements. 5th CN: No decrease in facial sensation 7th CN: Facial muscles symmetric and strong. 8th CN: Hears finger rub well bilaterally. 9th CN: Gag reflex not tested 10th CN: Spontaneous palate movement, full and symmetric. 11th CN: Full strength in shoulder shrug. 12th CN: Tongue protrusion full and midline. Sensation: No decrease in sensation in upper or lower limbs to touch. Musculoskeletal: Gait steady. Tandem walk normal. Romberg negative. Motor: 5/5 RUE/RLE; 5/5 LUE/LLENormal muscle tone without atrophy in all limbs. Coordination: Rapid alternating movements LUE intact; RUE intact Reflexes: 1-2+ ALL limbs. Plantar response down going. Karnofsky performance status: 80 - Normal activity with effort, some signs or symptoms of disease. ECOG performance status: 1 - Restricted in physically strenuous activity but ambulatory and able to carry out work of a light or sedentary nature, e.g., light house work or office work. 09/08/2024 PHQ 2 and 9 Total Scores PHQ-2 Score 0 Labs: Latest Ref Rng AND Units 08/12/2024 08/29/2024 09/08/2024 CBC WBC 3.70 - 11.00 k/uL 4.93 5.20 5.38 RBC 4.20 - 6.00 m/uL 4.13 4.35 4.18 Hemoglobin 13.0 - 17.0 g/dL 13.4 14.2 13.6 Hematocrit 39.0 - 51.0 % 38.0 40.5 38.4 MCV 80.0 - 100.0 fL 92.0 93.1 91.9 MCH 26.0 - 34.0 pg 32.4 32.6 32.5 MCHC 30.5 - 36.0 g/dL 35.3 35.1 35.4 RDW-CV 11.5 - 15.0 % 15.9 15.5 14.6 Platelet Count 150 - 400 k/uL 164 226 254 MPV 9.0 - 12.7 fL 8.6 8.2 8.3 Baso% % 0.2 0.8 0.9 Abs Neut (ANC) 1.45 - 7.50 k/uL 3.83 3.39 4.02 Abs Lymph 1.00 - 4.00 k/uL 0.62 1.06 0.66 Abs Branch <0.87 k/uL 0.42 0.57 0.55 Abs Eosin <0.46 k/uL 0.03 0.11 0.09 Abs Baso <0.11 k/uL <0.03 0.04 0.05 NRBC /100 WBC 0.0 0.0 0.0 Latest Ref Rng AND Units 07/14/2024 08/12/2024 09/08/2024 CMP Sodium 136 - 144 mmol/L 141 137 137 Potassium 3.7 - 5.1 mmol/L 4.0 4.2 4.2 Chloride 98 - 107 mmol/L 105 104 104 CO2 22 - 30 mmol/L 27 23 25 Glucose 74 - 99 mg/dL 105 112 110 BUN 9 - 24 mg/dL 7 15 10 Creatinine 0.73 - 1.22 mg/dL 0.88 1.02 1.21 EGFR >=60 mL/min/1.73m? 102 87 71 Protein, Total 6.3 - 8.0 g/dL 6.5 6.8 6.9 Albumin 3.9 - 4.9 g/dL 3.9 3.8 3.8 Calcium 8.5 - 10.2 mg/dL 9.1 9.2 8.9 Bilirubin, Total 0.2 - 1.3 mg/dL 0.5 0.3 0.6 AST 14 - 40 U/L 80 14 11 ALT 10 - 54 U/L 218 29 9 Alkaline Phosphatase 38 - 113 U/L 613 171 121 Final Pathology: SURGICAL PATHOLOGY: [id number] Order: [id number] Collected 03/19/2023 10:24 AM Status: Edited Result - FINAL Visible to patient: Yes (not seen) Dx: Brain tumor (HCC) 0 Result Notes Component FINAL DIAGNOSIS A, B. Brain, left temporal mass, biopsy and resection: - Morphologically consistent with high grade glioma. See comment. Diagnosis Comment CARLOS stained sections reveal a hypercellular infiltrating glioma with moderate to marked nuclear pleomorphism and increased mitoses (upto 4 per 10 high per field). Pseudopalisading necrosis and microvascular proliferation are identified. Immunohistochemical stains are performed at [facility] to better classify this lesion (block B1) and show the following in neoplastic cells: IDH1 R132H: neagtive (wildtype); ATRX: retained (wildtype); BRAF V600E: negative (wildtype); p53 strong nuclear positivity in up to 40%; Ki67 proliferative index up to 25%. Addendum This addendum is rendered to report the results of the following molecular studies: Targeted Oncology Panel: The oncogenic TERT promoter alteration, c.-124C>T (also known as C228T) was detected in this specimen; MGMT promoter methylation: not hypermethylated. 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 Addendum electronically signed by Krista Snow MD on 04/03/2023 at 9:13 AM Imaging: Results MRI BRAIN WO/W IVCON (Acc#[id number]) (Order [id number]) Patient Info Patient Name Sex BARRETT Rishabh Angel Conchita ([id number]) Male 1970 08/22/2024 2:02 PM - Radiology, Oru In Impression IMPRESSION: Slight further increase in size of enhancing nodule in the left mesial temporal lobe with surrounding FLAIR hyperintensity. Increasing enlargement is suspicious of neoplastic progression but continued follow-up is recommended. Continued increased size of extra-axial enhancing foci along the falx and over the left frontal convexity at the vertex. No new pathologic enhancement otherwise. New chronic appearing subdural hemorrhage measuring 11 mm in maximal thickness overlying the left parietal convexity with approximately 2 mm rightward midline shift. Redistribution of cystic hygroma, now measuring up to 4 mm in maximal thickness and predominantly along the left frontoparietal falx. 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 I reviewed the images with the patient and family. 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 08/22/24 MRI progressive disease 08/29/2024 BTB recommend continue on lomustine, and SRS to enhancing nodules. ISSUES: 1- GBM-MGMT promoter not hyper methylated. 1/13/25 MRI progressive disease -Off clinical trial: CASE 3322 clinical trial with methimazole + chemo. -Cycle No 2 of Lomustine 110 mg/M2 , dose capped 200 mg day cycle, per protocol. -Start date: 09/05/2024 -I SEEN DR. WILCOX AND WILL SEE DR. JOYCE TODAY FOR CONSIDERATION FOR SRS TO NEW ENHANCING NODULES. 1-yxauiuwqavpa-kotzanp nausea: -Use Zofran, prior/after chemo and as needed 3-Imaging surveillance: -Brain w and w/o contrast and perfusion - in 6 week's time from the start of cycle no 2 of lomustine. . 2A-Clinic visits: -In person visit in 6 weeks time. 3-Bone marrow suppression from chemotherapy: periodic CBC, every 6 weeks Also, CMP every 6 weeks. Other blood test, per clinical trial 4- Seizures: Since I saw him last, he has not had any events to suggest seizures (02/19/2024). -On lacosamide (Vimpat): Started on 04/05/23. Dose is 150 mg twice a day. -Lacosamide blood levels, Latest Reference Range AND Units 07/14/24 09:38 Lacosamide 2.2 - 19.8 ug/mL 10.6 Based on the above levels to continue on the same dose. 5-Seizure precautions: The patient is not to drive any motorized vehicle, and not to engage in activities that could place her or others in danger if she were to have a seizure. I also discussed the use of rescue medication for breakthrough seizures, using midazolam nasal spray (NS) to use it as needed (PRN) and discussed when to use it. I discussed the potential benefits and side effects, including tiredness, fatigue, and or sleepiness and if so, the patient is not to engage in activities that require to be fully alert. I have also provided written information for the patient's review. 6-He is to follow by her PCP for general medical care/coordination of care. 7-NOT ON STEROIDS 8-To see PCP for to define appropriate vaccinations above. 9-Potential for thromboembolism: to watch for potential DVT/Pulmonary Embolism, and if so to go to the ED/call 911. 10-End of life issues: Adv Dir in chart. -Patient discussed, this important aspect, of his diagnosis, that is, that he acknowledges, that this condition will end his life, at young age, and relatively soon and that he has goals, for the next year or so, that is, to attend, important milestones events of his children's, which will take place, in the next year or so. Currently,02/19/24 his children's are 20 and 21 years old. He has seen Dr. Lion, from palliative medicine will also give advice regarding This. 11-psychosocial issues: Patient asked, advised on how to approach, his current diagnosis and progressive disease, with his children who are 2020. We given some advice, how it could be helpful for his children to cope with his unfortunate condition. However, we recommended for him to seek attention from psychosocial oncology, and this Could be expanded to the family. He has seen Dr. Daniel Juárez from psychology and psychiatry, as well [facility] Jaclyn Guillory. 12-Hygroma on surgical site: MRI 08/22/2024 New chronic appearing subdural hemorrhage measuring 11 mm in maximal thickness overlying the left parietal convexity with approximately 2 mm rightward midline shift. Redistribution of cystic hygroma, now measuring up to 4 mm in maximal thickness and predominantly along the left frontoparietal falx. 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 He saw Dr. Wilcox/surgical team (09/08/24) to address this today 09/08/24. Also clinically there is bulging of craniotomy site, not symptomatic. Dr. Evans recommend observation. 13-Fatigue after chemo - start Provigil for fatigue, improve alertness - wakefulness. I discussed potential benefits and side effects. I am seeing the patient in collaboration with Tona Cobos RN [facility] Banking Supervisor PLAN: -Off clinical trial: CASE 3322 clinical trial with methimazole + chemo. -Transferred to SOC team. In the end the patient and family verbalized understanding of the above, they had questions which I believe I answered to their satisfaction and agreed with these recommendations and had no further questions or concerns for the moment, but I encourage them to call the [facility] with any questions or concerns. I spent a total of 40 minutes on the date of the service which included preparing to see the patient, at least 50% of [id number] patient care, completing clinical documentation, obtaining and/or reviewing separately obtained history, performing a medically appropriate examination, counseling and educating the patient/family/caregiver, ordering medications, tests, or procedures, communicating with other HCPs (not separately reported), independently interpreting results (not separately reported), communicating results to the patient/family/caregiver and care coordination (not separately reported). High MDM. Patricia Enriquez MD [facility] Patient Care Team: -Jose Evans MD, Neurosurgery, [facility], [facility], [facility] Cyndee Joyce MD, PhD, Radiation Oncology, [facility], [facility], [facility]. Jaclyn Guillory LSW as Pull Worker (Hematology/Oncology) Soraida Simmons, VAZQUEZ (Hospice AND Palliative Medicine) Willy Lion MD (Hospice AND Palliative Medicine) Rupa Khoury APRN.EDSON (Hospice AND Palliative Medicine) Daniel Juárez PSYD, Psychology, [facility] Observed: 09/08/2024 2:30 PM Status: COMPLETED Source: [facility] Office Visit (RADTMN) ANGEL KEATING ([id number]) 1970 M Date Time Provider Department 09/08/24 2:30 PM CYNDEE JOYCE During your visit today, we recorded the following information about you: Temperature Pulse Respiration Blood pressure 98.1 degrees 70/minute 18/minute 139/89 Weight 100.3 kg Cyndee Joyce MD 09/08/2024 3:26 PM Signed Radiation Oncology - Follow Up Note PATIENT NAME: Angel Keating PATIENT DIAGNOSIS: 52yo M with progression of left temporal GBM INTERVAL HISTORY: 52 yo RHM PMH of a left-sided craniotomy for resection of the temporal mass on 03/19/23. Pathology confirmed glioblastoma multiforme (GBM), [id number] negative, MGMT unmethylated, and TERTp promotor per TOP. [facility] and was randomized to receive radiation therapy, temozolomide, and [id number] during concurrent therapy. He has completed seven cycles of adjuvant temozolomide per protocol, with [id number] being administered continuously twice weekly since 04/20/2023. MRI showed progression. 05/27 Left sided re-do craniotomy for tumor resection. Patient was on CASE 3322 since 06/16/2024, w/ Lomustine started on 07/28/2024. MRI brain showed progression with new enhancing lesions. Brain tumor board recommended GKRS for these lesions. Patient has left sided hygroma and chronic subdural hematoma that will be followed. He denies SANDERS. Has WFD and STM loss after 2nd surgery. He reports slight decrease in vision of both eyes that did not warrant new glasses. Patient reports gait instability, like drunk walking, denies falls. RADIOLOGY/LABORATORY DATA: MRI brain: IMPRESSION: Slight further increase in size of enhancing nodule in the left mesial temporal lobe with surrounding FLAIR hyperintensity. Increasing enlargement is suspicious of neoplastic progression but continued follow-up is recommended. Continued increased size of extra-axial enhancing foci along the falx and over the left frontal convexity at the vertex. No new pathologic enhancement otherwise. New chronic appearing subdural hemorrhage measuring 11 mm in maximal thickness overlying the left parietal convexity with approximately 2 mm rightward midline shift. Redistribution of cystic hygroma, now measuring up to 4 mm in maximal thickness and predominantly along the left frontoparietal falx. 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 Call Worker Person: PSCB Transcribe Date/Time: Aug 22 2024 12:15P Dictated by : AMBREEN FERNANDEZ MD This examination was interpreted and the report reviewed and electronically signed by: BAN RITCHIE DO on Aug 22 2024 2:00PM EST ALLERGIES No Known Allergies MEDICATIONS: iv contrast (will be provided with radiology test) MRI Brain Localization Inject, intravenously, once for 1 dose.No IV access, insert saline lock prior to beginning of sedation, infusion, injection of imaging exam.Discontinue saline lock post exam. If Pt. has a central line or IVAD, may access for administration according to line specific nursing protocol.Once exam is complete flush line and de-access according to line specific nursing protocol in the MR contrast administration guidelines link iv contrast (will be provided with radiology test) MRI Brain Inject, intravenously, once for 1 dose.No IV access, insert saline lock prior to beginning of sedation, infusion, injection of imaging exam.Discontinue saline lock post exam. If Pt. has a central line or IVAD, may access for administration according to line specific nursing protocol.Once exam is complete flush line and de-access according to line specific nursing protocol in the MR contrast administration guidelines link modafinil (PROVIGIL) 100 mg tablet Take 1 tablet by mouth once daily for 42 days. traZODone (DESYREL) 50 mg tablet Take 1 tablet by mouth daily at bedtime. lacosamide (VIMPAT) 150 mg tab Take 1 tablet by mouth two times a day. lomustine (GLEOSTINE) 100 mg capsule Take one 8mg Zofran on an empty stomach in the evening. Wait ONE hour. Take TWO 100mg capsule(s) Lomustine by mouth for a total dose of 200mg. Take one 8 mg Zofran twenty-four hours later. Take on Day 1 of each 42 day cycle. methIMAzole (TAPAZOLE) 5 mg tablet Take TWO 10 mg tablets and ONE 5 mg tablet for a total dose of 25 mg, daily. (Patient not taking: Reported on 09/08/2024) methIMAzole (TAPAZOLE) 10 mg tablet Take TWO 10 mg tablets and ONE 5 mg tablet for a total dose of 25 mg, daily. (Patient not taking: Reported on 09/08/2024) triamcinolone (KENALOG) 0.025 % cream Apply to affected area two times a day. (Patient not taking: Reported on 08/22/2024) predniSONE (DELTASONE) 10 mg tablet Day #1 - 6 tablets PO then Day #2 - 5 tablets PO then Day #3 - 4 tablets PO then Day #4 - 3 tablets PO then Day #5 - 2 tablets PO then Day #6 - 1 tablet PO (Patient not taking: Reported on 08/12/2024) ondansetron (ZOFRAN) 8 mg tablet Take one tablet by mouth on an empty stomach in the evening one hour prior to chemo. Then take one tablet 24 hours after chemo. May repeat dose every 8-12 hours if needed to prevent nausea meclizine (ANTIVERT) 25 mg tab Take 1 tablet by mouth three times a day. (Patient not taking: Reported on 09/05/2024) valACYclovir (VALTREX) 1 gram tablet Take 1,000 mg by mouth three times a day. (Patient not taking: Reported on 08/22/2024) midazolam (NAYZILAM) 5 mg/spray (0.1 mL) nasal spray Use 1 [place] in the nose as needed for up to 10 days. May repeat dose in alternate nostril after 10 minutes based on response and tolerability. sennosides (SENNA ORAL) Take by mouth. (Patient not taking: Reported on 08/12/2024) DIETARY SUPPLEMENT,MISC COMB14 ORAL Take by mouth. Biomega 1000mg containing vitamin E and pure anchovy (Patient not taking: Reported on 08/12/2024) medical supply, miscellaneous (MISCELLANEOUS MEDICAL SUPPLY MISC) Neurotrophin acetaminophen (TYLENOL) 325 mg tablet 2 tablets by ORAL/FEEDING TUBE route every 4 hours as needed for pain. pantoprazole DR (PROTONIX) 20 mg tablet Take 1 tablet by mouth DAILY (6 AM). (Patient not taking: Reported on 08/22/2024) REVIEW OF SYSTEMS: Neuro detailed: Headache: none Pain interventions: none required Fatigue: mild Decreased visual acuity: mild Diplopia: none Visual Field Changes: No Tinnitus: none Hearing loss: none Dysphagia: No Decreased balance: yes Arm/leg numbness: none Focal weakness: none Limb discoordination: none Disorientation: none Decreased concentration: yes Memory changes: yes Word finding difficulty: yes Dysarthria: mild Seizures: none Syncope: none PHYSICAL EXAM: VS: BP 139/89 Pulse 70 Temp 36.7 ?C (98.1 ?F) (Oral) Resp 18 Wt 100.3 kg (221 lb 1.9 oz) SpO2 98% BMI 32.12 kg/m? KPS: 80 Neuro function score (NFS): NFS 1 (Minor neurologic symptoms; fully active at home/work without assistance) General Appearance: Alert and oriented. No acute distress. Neck: Normal ROM. Chest: No respiratory distress. Musculoskeletal: No edema. Normal ROM in extremities. Skin: No rashes noted Neuro: Speech fluent. CN II-XII intact. Strength intact and symmetric, 5/5 throughout. Sensation intact to light touch. Normal gait. ASSESSMENT/PLAN: 52yo M with progression of left temporal GBM. He is an appropriate candidate for fractionated SRS. The rationale, risks, acute/late side effects, benefits, mechanics, personnel and alternatives were reviewed in detail with the patient. All questions were answered to his satisfaction. The patient signed informed consent agrees to proceed with simulation and treatment. Signed by: Cyndee Joyce MD cc: To use this Smartlink, specify the provider ID whose address you want to display, e.g., .PROVADDR[1 (where 1 is the provider ID). Dr. Jose Enriquez [facility] Referring Provider: CYNDEE JOYCE [[id number]] Allergies As of Date: 09/08/2024 (No Known Allergies) Date Reviewed: 09/08/2024 Reviewed by: Kenna Carballo [facility] - Fully Assessed Reason for Visit: Establish Care [42] Primary Visit Diagnosis:GBM (glioblastoma multiforme) (HCC) [C71.9] Prescriptions as of 09/08/2024 - iv contrast (will be provided with radiology test) MRI Brain Localization Inject, intravenously, once for 1 dose.No IV access, insert saline lock prior to beginning of sedation, infusion, injection of imaging exam.Discontinue saline lock post exam. If Pt. has a central line or IVAD, may access for administration according to line specific nursing protocol.Once exam is complete flush line and de-access according to line specific nursing protocol in the MR contrast administration guidelines link - iv contrast (will be provided with radiology test) MRI Brain Inject, intravenously, once for 1 dose.No IV access, insert saline lock prior to beginning of sedation, infusion, injection of imaging exam.Discontinue saline lock post exam. If Pt. has a central line or IVAD, may access for administration according to line specific nursing protocol.Once exam is complete flush line and de-access according to line specific nursing protocol in the MR contrast administration guidelines link - modafinil (PROVIGIL) 100 mg tablet Take 1 tablet by mouth once daily for 42 days. - traZODone (DESYREL) 50 mg tablet Take 1 tablet by mouth daily at bedtime. - lacosamide (VIMPAT) 150 mg tab Take 1 tablet by mouth two times a day. - lomustine (GLEOSTINE) 100 mg capsule Take one 8mg Zofran on an empty stomach in the evening. Wait ONE hour. Take TWO 100mg capsule(s) Lomustine by mouth for a total dose of 200mg. Take one 8 mg Zofran twenty-four hours later. Take on Day 1 of each 42 day cycle. - methIMAzole (TAPAZOLE) 5 mg tablet Take TWO 10 mg tablets and ONE 5 mg tablet for a total dose of 25 mg, daily. - methIMAzole (TAPAZOLE) 10 mg tablet Take TWO 10 mg tablets and ONE 5 mg tablet for a total dose of 25 mg, daily. - triamcinolone (KENALOG) 0.025 % cream Apply to affected area two times a day. - predniSONE (DELTASONE) 10 mg tablet Day #1 - 6 tablets PO then Day #2 - 5 tablets PO then Day #3 - 4 tablets PO then Day #4 - 3 tablets PO then Day #5 - 2 tablets PO then Day #6 - 1 tablet PO - ondansetron (ZOFRAN) 8 mg tablet Take one tablet by mouth on an empty stomach in the evening one hour prior to chemo. Then take one tablet 24 hours after chemo. May repeat dose every 8-12 hours if needed to prevent nausea - meclizine (ANTIVERT) 25 mg tab Take 1 tablet by mouth three times a day. - valACYclovir (VALTREX) 1 gram tablet Take 1,000 mg by mouth three times a day. - midazolam (NAYZILAM) 5 mg/spray (0.1 mL) nasal spray Use 1 [place] in the nose as needed for up to 10 days. May repeat dose in alternate nostril after 10 minutes based on response and tolerability. - sennosides (SENNA ORAL) Take by mouth. - DIETARY SUPPLEMENT,MISC COMB14 ORAL Take by mouth. Biomega 1000mg containing vitamin E and pure anchovy - medical supply, miscellaneous (MISCELLANEOUS MEDICAL SUPPLY MIS) Neurotrophin - acetaminophen (TYLENOL) 325 mg tablet 2 tablets by ORAL/FEEDING TUBE route every 4 hours as needed for pain. - pantoprazole DR (PROTONIX) 20 mg tablet Take 1 tablet by mouth DAILY (6 AM). Problem List As Of Date 09/08/2024 Noted Resolved Chest pain [R07.9] 04/25/2010 05/26/2024 Brain mass [G93.89] 03/17/2023 11/17/2023 Obesity, Class I, BMI 30-34.9 [E66.811] 03/17/2023 Brain compression (HCC) [G93.5] 03/20/2023 S/P brain surgery [Z98.890] 03/20/2023 11/17/2023 At risk for seizures [Z91.89] 03/20/2023 Cerebral edema (HCC) [G93.6] 03/20/2023 GBM (glioblastoma multiforme) (HCC) [C71.9] 04/07/2023 Syncope, unspecified syncope type [R55] 11/01/2023 11/03/2023 Examination of participant in clinical trial [Z*11/05/2023 11/17/2023 Forehead pain [R51.9] 11/05/2023 PONV (postoperative nausea and vomiting) [R11.2*05/26/2024 Acute post-operative pain [G89.18] 05/29/2024 Encounter Status:Closed by CYNDEE JOYCE on 09/08/24 PROGRESS Observed: 09/08/2024 2:23 PM Status: COMPLETED Source: [facility] HNO ID: [id number] Author: CYNDEE JOYCE MD Service: ? Author Type: Physician Type: Progress Notes Filed: 09/08/2024 15:26 Note Text: Radiation Oncology - Follow Up Note PATIENT NAME: Angel Keating PATIENT DIAGNOSIS: 52yo M with progression of left temporal GBM INTERVAL HISTORY: 52 yo RHM PMH of a left-sided craniotomy for resection of the temporal mass on 03/19/23. Pathology confirmed glioblastoma multiforme (GBM), [id number] negative, MGMT unmethylated, and TERTp promotor per TOP. The patient was enrolled in the GCAR ND trial and was randomized to receive radiation therapy, temozolomide, and [id number] during concurrent therapy. He has completed seven cycles of adjuvant temozolomide per protocol, with [id number] being administered continuously twice weekly since 04/20/2023. MRI showed progression. 05/27 Left sided re-do craniotomy for tumor resection. Patient was on CASE 3322 since 06/16/2024, w/ Lomustine started on 07/28/2024. MRI brain showed progression with new enhancing lesions. Brain tumor board recommended GKRS for these lesions. Patient has left sided hygroma and chronic subdural hematoma that will be followed. He denies SANDERS. Has WFD and STM loss after 2nd surgery. He reports slight decrease in vision of both eyes that did not warrant new glasses. Patient reports gait instability, like drunk walking, denies falls. RADIOLOGY/LABORATORY DATA: MRI brain: IMPRESSION: Slight further increase in size of enhancing nodule in the left mesial temporal lobe with surrounding FLAIR hyperintensity. Increasing enlargement is suspicious of neoplastic progression but continued follow-up is recommended. Continued increased size of extra-axial enhancing foci along the falx and over the left frontal convexity at the vertex. No new pathologic enhancement otherwise. New chronic appearing subdural hemorrhage measuring 11 mm in maximal thickness overlying the left parietal convexity with approximately 2 mm rightward midline shift. Redistribution of cystic hygroma, now measuring up to 4 mm in maximal thickness and predominantly along the left frontoparietal falx. 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 Call Worker Person: EMILI Transcribe Date/Time: Aug 22 2024 12:15P Dictated by : AMBREEN FERNANDEZ MD This examination was interpreted and the report reviewed and electronically signed by: BAN RITCHIE DO on Aug 22 2024 2:00PM EST ALLERGIES No Known Allergies MEDICATIONS: iv contrast (will be provided with radiology test) MRI Brain Localization Inject, intravenously, once for 1 dose.No IV access, insert saline lock prior to beginning of sedation, infusion, injection of imaging exam.Discontinue saline lock post exam. If Pt. has a central line or IVAD, may access for administration according to line specific nursing protocol.Once exam is complete flush line and de-access according to line specific nursing protocol in the MR contrast administration guidelines link iv contrast (will be provided with radiology test) MRI Brain Inject, intravenously, once for 1 dose.No IV access, insert saline lock prior to beginning of sedation, infusion, injection of imaging exam.Discontinue saline lock post exam. If Pt. has a central line or IVAD, may access for administration according to line specific nursing protocol.Once exam is complete flush line and de-access according to line specific nursing protocol in the MR contrast administration guidelines link modafinil (PROVIGIL) 100 mg tablet Take 1 tablet by mouth once daily for 42 days. traZODone (DESYREL) 50 mg tablet Take 1 tablet by mouth daily at bedtime. lacosamide (VIMPAT) 150 mg tab Take 1 tablet by mouth two times a day. lomustine (GLEOSTINE) 100 mg capsule Take one 8mg Zofran on an empty stomach in the evening. Wait ONE hour. Take TWO 100mg capsule(s) Lomustine by mouth for a total dose of 200mg. Take one 8 mg Zofran twenty-four hours later. Take on Day 1 of each 42 day cycle. methIMAzole (TAPAZOLE) 5 mg tablet Take TWO 10 mg tablets and ONE 5 mg tablet for a total dose of 25 mg, daily. (Patient not taking: Reported on 09/08/2024) methIMAzole (TAPAZOLE) 10 mg tablet Take TWO 10 mg tablets and ONE 5 mg tablet for a total dose of 25 mg, daily. (Patient not taking: Reported on 09/08/2024) triamcinolone (KENALOG) 0.025 % cream Apply to affected area two times a day. (Patient not taking: Reported on 08/22/2024) predniSONE (DELTASONE) 10 mg tablet Day #1 - 6 tablets PO then Day #2 - 5 tablets PO then Day #3 - 4 tablets PO then Day #4 - 3 tablets PO then Day #5 - 2 tablets PO then Day #6 - 1 tablet PO (Patient not taking: Reported on 08/12/2024) ondansetron (ZOFRAN) 8 mg tablet Take one tablet by mouth on an empty stomach in the evening one hour prior to chemo. Then take one tablet 24 hours after chemo. May repeat dose every 8-12 hours if needed to prevent nausea meclizine (ANTIVERT) 25 mg tab Take 1 tablet by mouth three times a day. (Patient not taking: Reported on 09/05/2024) valACYclovir (VALTREX) 1 gram tablet Take 1,000 mg by mouth three times a day. (Patient not taking: Reported on 08/22/2024) midazolam (NAYZILAM) 5 mg/spray (0.1 mL) nasal spray Use 1 [place] in the nose as needed for up to 10 days. May repeat dose in alternate nostril after 10 minutes based on response and tolerability. sennosides (SENNA ORAL) Take by mouth. (Patient not taking: Reported on 08/12/2024) DIETARY SUPPLEMENT,MISC COMB14 ORAL Take by mouth. Biomega 1000mg containing vitamin E and pure anchovy (Patient not taking: Reported on 08/12/2024) medical supply, miscellaneous (MISCELLANEOUS MEDICAL SUPPLY MISC) Neurotrophin acetaminophen (TYLENOL) 325 mg tablet 2 tablets by ORAL/FEEDING TUBE route every 4 hours as needed for pain. pantoprazole DR (PROTONIX) 20 mg tablet Take 1 tablet by mouth DAILY (6 AM). (Patient not taking: Reported on 08/22/2024) REVIEW OF SYSTEMS: Neuro detailed: Headache: none Pain interventions: none required Fatigue: mild Decreased visual acuity: mild Diplopia: none Visual Field Changes: No Tinnitus: none Hearing loss: none Dysphagia: No Decreased balance: yes Arm/leg numbness: none Focal weakness: none Limb discoordination: none Disorientation: none Decreased concentration: yes Memory changes: yes Word finding difficulty: yes Dysarthria: mild Seizures: none Syncope: none PHYSICAL EXAM: VS: BP 139/89 Pulse 70 Temp 36.7 ?C (98.1 ?F) (Oral) Resp 18 Wt 100.3 kg (221 lb 1.9 oz) SpO2 98% BMI 32.12 kg/m? KPS: 80 Neuro function score (NFS): NFS 1 (Minor neurologic symptoms; fully active at home/work without assistance) General Appearance: Alert and oriented. No acute distress. Neck: Normal ROM. Chest: No respiratory distress. Musculoskeletal: No edema. Normal ROM in extremities. Skin: No rashes noted Neuro: Speech fluent. CN II-XII intact. Strength intact and symmetric, 5/5 throughout. Sensation intact to light touch. Normal gait. ASSESSMENT/PLAN: 52yo M with progression of left temporal GBM. He is an appropriate candidate for fractionated SRS. The rationale, risks, acute/late side effects, benefits, mechanics, personnel and alternatives were reviewed in detail with the patient. All questions were answered to his satisfaction. The patient signed informed consent agrees to proceed with simulation and treatment. Signed by: Cyndee Joyce MD cc: To use this Smartlink, specify the provider ID whose address you want to display, e.g., .PROVADDR[1 (where 1 is the provider ID). Dr. Jose Enriquez [facility] CNOV Observed: 09/08/2024 11:00 AM Status: COMPLETED Source: [facility] Office Visit ([facility]) ANGEL KEATING ([id number]) 1970 M Date Time Provider Department 09/08/24 11:00 AM PATRICIA ENRIQUEZ [facility] During your visit today, we recorded the following information about you: Karla Pedroza MA 09/09/2024 12:15 AM Signed Reviewed and confirmed with patient that there were no changes in the the nursing assessment and vitals that were completed on September 08, 2024 during previous provider appointment. SALEEM Zepeda Alejandro, MD 09/09/2024 12:15 AM Signed [facility] Follow up Clinic visit [facility] Team: -Jose Evans MD, Neurosurgery -SAV Rodriguez, Radiation Oncology -Patricia Enriquez MD, Neuro-Oncology DIAGNOSIS: MGMT unmethylated Glioblastoma. 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 He initially presented with anxiety-attack like episodes going back to January 2023 as well as a fall, without loss of consciousness but +trauma to head around 02/27/2023. On 03/16/2023, he presented to [facility] ED with word finding difficulty, report of one-time fever of 101 in February, anxiety, increased thirst and urination and was found to have a L temporal mass with midline subfalcine shift concerning for high grade glioma. He was afebrile with normal glucose level and electrolytes. He underwent gross total resection by Dr. Evans on 03/19/2023, revealing an MGMT unmethylated glioblastoma, WHO Grade 4. He was discharged on keppra 750mg BID and dexamethasone taper. He established care with Dr. Enriquez and given paroxysmal episodes of anxiety, he was concerned about temporal lobe epilepsy and advised lifelong AED to reduce seizure risk. The patient was exhibiting some fatigue and dullness, so a cross taper from keppra to vimpat, with goal of vimpat 150mg BID. The patient expressed interest in clinical trials [facility]. He was randomized to the [id number] arm (cyclic peptide modulating tumor microenvironment). TREATMENT HISTORY Gross total resection [03/19/2023] [facility] Dr. Evans MGMT unmethylated Glioblastoma. L temporal [facility] AGILE, randomized to [id number] IV twice weekly arm + Standard concurrent chemotherapy and radiation (04/20- 05/29/2023) [facility] Dr. Joyce and Dr. Enriquez Adjuvant temozolomide PO D1-5 q 28 days C1 07/01/23, will start 07/03 150mg/m2 C2 07/27/23 C3 08/31/23 C4 09/21/23 C5 10/26/23 C6 11/23/23 C7 12/28/23 STOP ADJ TMZ as the clinical; trial calls for up to 6 cycles. For some reason the patient had an extra cycle of Adj TMZ. Adjuvant [id number] during Maintenance: Cycle 7 Week 1 - infusions on 12/14/2023 (D1) and 12/17/2023 (D4) Cycle 7 Week 2 - infusions on 12/21/2023 (D8) and 12/24/2023 (D11) Cycle 7 Week 3 - infusions on 12/28/2023 (D15) and 12/31/2023 (D18) Cycle 7 Week 4 - infusions on 01/05/2024 (D22) and 01/08/2024 (D25) Cycle 8 Week 5 - infusions on 01/11/2024 and 01/14/2024 02/08/2024: MRI shows progression 02/08/[address] [address] Evans for possible surgery. If surgery offered, he can be enrolled in CASE 3322 clinical trial with methimazole + chemo. 02/18/24: Dr Evans recommended NO surgery. 02/26/24 Lomustine 90mg/m2 C#1 02/25-04/08/24 04/12/24 Tumor progression, increased CBV 04/14/2024 BTB Referrals to se Dr. Evans for possible surgery. The patient is also eligible, for CASE 3322 clinical trial with methimazole + chemo. 04/28/2024 Jose Evans MD since the patient, and recommended surgery. 04/28/2024 clinical trials team, saw the patient, the patient is eligible, for for CASE 3322 clinical trial with methimazole + chemo. Patient signed consent. Treatment plan: Pre-operative treatment Phase -Methimazole - Pre-Op period: 05/24/2024 to 05/27/2024 (last dose is DAY of surgery) -Dose level 2 (25 mg daily) Surgical resection 05/27/[address] 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 C1D1 (10-28 days after surgery) -Scheduled for 06/16/2024 (20 days post op) -Methimazole - Post-Op period: 05/27/2024- TBD -Dose level 2 (25 mg judy C1D1 lomustine 110 mg/m2 - 07/28/24 - NOTE DATE ENTERED IN ERROR - PATIENT DID NOT TAKE CHEMO ON 08/07/2024 C2D1 lomustine -- planned for 09/07/24 08/22/2024 Brain MR - new enhancing nodules. CORRECTED DATES OF CHEMO: C1D1 JUN 28, 2024 09/05/2024 NOTE: RE; DISCREPANCY ON LOMUSTINE CYCLE. The patient recalled that he had taken Lomustine cycle No 1 [after 2nd surgery (05/27/2024)] on ~mid June 2024 and that he was due for cycle No 2 for early August 2024 We reviewed the pharmacy records and indeed the patient took cycle No 1 of Lomustine on 06/28/25, and he was due for next cycle on ~Aug 12, 2024. Pharmacy note confirm that lomustine was delivered. Although per patient knowledge that he needed to start his chemo, cycle No 2 of lomustine on 1st week of Aug 2024 - however he did not started as he was instructed that the chemo was to start not until Sep 07, 2024. Hence the patient had not started his chemo. 09/05/2024: The patient brought lomustine capsules, cycle No 2, as he noted - issued on 08/05/2024 - which should have started on Aug 12, 2024. The reason for the discrepancy - likely entry data error of when he took cycle No 1 of lomustine - erroneously was entered as 07/28/2025. September 07, 2024 In person visit. The patient is accompanied by mother Today visit is to go over any pending issues form the clinical trial CASE 3322 clinical trial with methimazole + chemo - ==== Important events the patient would hope to attend: November 28 son's graduation Daughter graduates college December 10. Late Apr 29- youngest step daughter - ===== Last Chemo: see above Current Steroids dose: N/A Current AED Dose: lacosamide (VIMPAT) 150 mg tab Take 1 tablet by mouth two times a day. 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 Evans; path = GBM ORTHOPEDICS SURGERY HX 1996 knee surgery SHX CRANIOTOMY Left 03/19/2023 Family History: FAMILY HISTORY Problem Relation Age of Onset Diabetes Father Coronary Artery Disease Father Stroke Father Breast Cancer Mother None Sister Anesthesia Problems No Family History Social History Tobacco Use Smoking status: Former Current packs/day: 1.00 Average packs/day: 1 pack/day for 4.0 years (4.0 ttl pk-yrs) Types: Cigarettes Smokeless tobacco: Never Vaping Use Vaping status: Never Used Substance Use Topics Alcohol use: Not Currently Comment: three beers a month - per pt [id number] Drug use: Never Allergies: Patient has no known allergies. Current Outpatient Medications Medication Sig lacosamide (VIMPAT) 150 mg tab Take 1 tablet by mouth two times a day. iv contrast (will be provided with radiology test) MRI Brain Inject, intravenously, once for 1 dose.No IV access, insert saline lock prior to beginning of sedation, infusion, injection of imaging exam.Discontinue saline lock post exam. If Pt. has a central line or IVAD, may access for administration according to line specific nursing protocol.Once exam is complete flush line and de-access according to line specific nursing protocol in the MR contrast administration guidelines link iv contrast (will be provided with radiology test) MRI Brain Inject, intravenously, once for 1 dose.No IV access, insert saline lock prior to beginning of sedation, infusion, injection of imaging exam.Discontinue saline lock post exam. If Pt. has a central line or IVAD, may access for administration according to line specific nursing protocol.Once exam is complete flush line and de-access according to line specific nursing protocol in the MR contrast administration guidelines link meclizine (ANTIVERT) 25 mg tab Take 1 tablet by mouth three times a day. valACYclovir (VALTREX) 1 gram tablet Take 1,000 mg by mouth three times a day. ondansetron (ZOFRAN) 8 mg tablet Take one hour prior to temozolomide prescription then every 8 hours as needed for nausea. temozolomide (TEMODAR) 180 mg capsule Fast for one hour after taking Zofran and then take ONE 180 mg capsule, plus ONE 140 mg and TWO 5 mg capsules to total 330 mg. Then, fast for one hour after taking. Take on days 1-5 of your 28 day cycle. Temozolomide 140 mg capsule Fast for one hour after taking Zofran and then take ONE 180 mg capsule, plus ONE 140 mg and TWO 5 mg capsules to total 330 mg. Then, fast for one hour after taking. Take on days 1-5 of your 28 day cycle. temozolomide (TEMODAR) 5 mg capsule Fast for one hour after taking Zofran and then take ONE 180 mg capsule, plus ONE 140 mg and TWO 5 mg capsules to total 330 mg. Then, fast for one hour after taking. Take on days 1-5 of your 28 day cycle. ondansetron (ZOFRAN) 8 mg tablet Take 1 tablet (8 mg) by mouth one hour before taking temozolomide dosing. Take on an empty stomach (Patient taking differently: Take 1 tablet (8 mg) by mouth one hour before taking temozolomide dosing. Take on an empty stomach) sennosides (SENNA ORAL) Take by mouth. DIETARY SUPPLEMENT,[facility] COMB14 ORAL Take by mouth. Biomega 1000mg containing vitamin E and pure anchovy medical supply, miscellaneous (MISCELLANEOUS MEDICAL SUPPLY [facility] [place]) Neurotrophin acetaminophen (TYLENOL) 325 mg tablet 2 tablets by ORAL/FEEDING TUBE route every 4 hours as needed for pain. pantoprazole DR (PROTONIX) 20 mg tablet Take 1 tablet by mouth DAILY (6 AM). midazolam (NAYZILAM) 5 mg/spray (0.1 mL) nasal spray Use 1 [place] in the nose as needed for up to 10 days. May repeat dose in alternate nostril after 10 minutes based on response and tolerability. No current facility-administered medications for this visit. Review of systems: Constitutional: No recent fever or weight loss. Eyes: No history of glaucoma or cataracts. ENMT: No recent ear infection, nasal congestion, mouth sores or sore throat. CV: No history of chest pain, palpitations or leg swelling. Respiratory: No history of SOB, asthma or recent cough. Gastrointestinal: No history of nausea, vomiting, dysphagia or abdominal pain. Genitourinary: No history of hematuria or dysuria. Musculoskeletal: No complaint of arthritis, unstable gait or arm/leg weakness. Psychiatric: No history of hallucinations or depression or anxiety. ROS Neurological: No complaint of headache. No complaint of tinnitus. No complaint of decreased hearing. No complaint of diplopia. No complaints of decreased visual acuity. No complaint of arm/leg numbness. No problem with limb coordination. No complaint of syncope, seizures or disorientation. Objective Physical Exam: There were no vitals taken for this visit. GENERAL EXAM: General appearance: Well appearing, alert, in no acute distress NEUROLOGICAL EXAM: Higher integrative functions: Oriented to person, place AND time. Attention Span and Concentration: Good. Language: Accurate naming of objects. Good comprehension. Fund of Knowledge: Good. 2nd CN: Full visual land. 3rd,4th,6th CN: Pupils equal, round, react to light, full extraocular movements. 5th CN: No decrease in facial sensation 7th CN: Facial muscles symmetric and strong. 8th CN: Hears finger rub well bilaterally. 9th CN: Gag reflex not tested 10th CN: Spontaneous palate movement, full and symmetric. 11th CN: Full strength in shoulder shrug. 12th CN: Tongue protrusion full and midline. Sensation: No decrease in sensation in upper or lower limbs to touch. Musculoskeletal: Gait steady. Tandem walk normal. Romberg negative. Motor: 5/5 RUE/RLE; 5/5 LUE/LLENormal muscle tone without atrophy in all limbs. Coordination: Rapid alternating movements LUE intact; RUE intact Reflexes: 1-2+ ALL limbs. Plantar response down going. Karnofsky performance status: 80 - Normal activity with effort, some signs or symptoms of disease. ECOG performance status: 1 - Restricted in physically strenuous activity but ambulatory and able to carry out work of a light or sedentary nature, e.g., light house work or office work. 09/08/2024 PHQ 2 and 9 Total Scores PHQ-2 Score 0 Labs: Latest Ref Rng AND Units 08/12/2024 08/29/2024 09/08/2024 CBC WBC 3.70 - 11.00 k/uL 4.93 5.20 5.38 RBC 4.20 - 6.00 m/uL 4.13 4.35 4.18 Hemoglobin 13.0 - 17.0 g/dL 13.4 14.2 13.6 Hematocrit 39.0 - 51.0 % 38.0 40.5 38.4 MCV 80.0 - 100.0 fL 92.0 93.1 91.9 MCH 26.0 - 34.0 pg 32.4 32.6 32.5 MCHC 30.5 - 36.0 g/dL 35.3 35.1 35.4 RDW-CV 11.5 - 15.0 % 15.9 15.5 14.6 Platelet Count 150 - 400 k/uL 164 226 254 MPV 9.0 - 12.7 fL 8.6 8.2 8.3 Baso% % 0.2 0.8 0.9 Abs Neut (ANC) 1.45 - 7.50 k/uL 3.83 3.39 4.02 Abs Lymph 1.00 - 4.00 k/uL 0.62 1.06 0.66 Abs Branch <0.87 k/uL 0.42 0.57 0.55 Abs Eosin <0.46 k/uL 0.03 0.11 0.09 Abs Baso <0.11 k/uL <0.03 0.04 0.05 NRBC /100 WBC 0.0 0.0 0.0 Latest Ref Rng AND Units 07/14/2024 08/12/2024 09/08/2024 CMP Sodium 136 - 144 mmol/L 141 137 137 Potassium 3.7 - 5.1 mmol/L 4.0 4.2 4.2 Chloride 98 - 107 mmol/L 105 104 104 CO2 22 - 30 mmol/L 27 23 25 Glucose 74 - 99 mg/dL 105 112 110 BUN 9 - 24 mg/dL 7 15 10 Creatinine 0.73 - 1.22 mg/dL 0.88 1.02 1.21 EGFR >=60 mL/min/1.73m? 102 87 71 Protein, Total 6.3 - 8.0 g/dL 6.5 6.8 6.9 Albumin 3.9 - 4.9 g/dL 3.9 3.8 3.8 Calcium 8.5 - 10.2 mg/dL 9.1 9.2 8.9 Bilirubin, Total 0.2 - 1.3 mg/dL 0.5 0.3 0.6 AST 14 - 40 U/L 80 14 11 ALT 10 - 54 U/L 218 29 9 Alkaline Phosphatase 38 - 113 U/L 613 171 121 Final Pathology: SURGICAL PATHOLOGY: [id number] Order: [id number] Collected 03/19/2023 10:24 AM Status: Edited Result - FINAL Visible to patient: Yes (not seen) Dx: Brain tumor (HCC) 0 Result Notes Component FINAL DIAGNOSIS A, B. Brain, left temporal mass, biopsy and resection: - Morphologically consistent with high grade glioma. See comment. Diagnosis Comment CARLOS stained sections reveal a hypercellular infiltrating glioma with moderate to marked nuclear pleomorphism and increased mitoses (upto 4 per 10 high per field). Pseudopalisading necrosis and microvascular proliferation are identified. Immunohistochemical stains are performed at [facility] to better classify this lesion (block B1) and show the following in neoplastic cells: IDH1 R132H: neagtive (wildtype); ATRX: retained (wildtype); BRAF V600E: negative (wildtype); p53 strong nuclear positivity in up to 40%; Ki67 proliferative index up to 25%. Addendum This addendum is rendered to report the results of the following molecular studies: Targeted Oncology Panel: The oncogenic TERT promoter alteration, c.-124C>T (also known as C228T) was detected in this specimen; MGMT promoter methylation: not hypermethylated. 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 Addendum electronically signed by Krista Snow MD on 04/03/2023 at 9:13 AM Imaging: Results MRI BRAIN WO/W IVCON (Acc#[id number]) (Order [id number]) Patient Info Patient Name Sex Angel Torres ([id number]) Male 1970 08/22/2024 2:02 PM - Radiology, [place] In Impression IMPRESSION: Slight further increase in size of enhancing nodule in the left mesial temporal lobe with surrounding FLAIR hyperintensity. Increasing enlargement is suspicious of neoplastic progression but continued follow-up is recommended. Continued increased size of extra-axial enhancing foci along the falx and over the left frontal convexity at the vertex. No new pathologic enhancement otherwise. New chronic appearing subdural hemorrhage measuring 11 mm in maximal thickness overlying the left parietal convexity with approximately 2 mm rightward midline shift. Redistribution of cystic hygroma, now measuring up to 4 mm in maximal thickness and predominantly along the left frontoparietal falx. 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 I reviewed the images with the patient and family. 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 08/22/24 MRI progressive disease 08/29/2024 BTB recommend continue on lomustine, and SRS to enhancing nodules. ISSUES: 1- GBM-MGMT promoter not hyper methylated. 08/22/24 MRI progressive disease -Off clinical trial: CASE 3322 clinical trial with methimazole + chemo. -Cycle No 2 of Lomustine 110 mg/M2 , dose capped 200 mg / day cycle, per protocol. -Start date: 09/05/2024 -I SEEN DR. WILCOX AND WILL SEE DR. JOYCE TODAY FOR CONSIDERATION FOR SRS TO NEW ENHANCING NODULES. 5-vpknyhoqawqw-upwlpxm nausea: -Use Zofran, prior/after chemo and as needed 3-Imaging surveillance: -Brain w and w/o contrast and perfusion - in 6 week's time from the start of cycle no 2 of lomustine. . 2A-Clinic visits: -In person visit in 6 weeks time. 3-Bone marrow suppression from chemotherapy: periodic CBC, every 6 weeks Also, CMP every 6 weeks. Other blood test, per clinical trial 4- Seizures: Since I saw him last, he has not had any events to suggest seizures (02/19/2024). -On lacosamide (Vimpat): Started on 04/05/23. Dose is 150 mg twice a day. -Lacosamide blood levels, Latest Reference Range AND Units 07/14/24 09:38 Lacosamide 2.2 - 19.8 ug/mL 10.6 Based on the above levels to continue on the same dose. 5-Seizure precautions: The patient is not to drive any motorized vehicle, and not to engage in activities that could place her or others in danger if she were to have a seizure. I also discussed the use of rescue medication for breakthrough seizures, using midazolam nasal spray (NS) to use it as needed (PRN) and discussed when to use it. I discussed the potential benefits and side effects, including tiredness, fatigue, and or sleepiness and if so, the patient is not to engage in activities that require to be fully alert. I have also provided written information for the patient's review. 6-He is to follow by her PCP for general medical care/coordination of care. 7-NOT ON STEROIDS 8-To see PCP for to define appropriate vaccinations above. 9-Potential for thromboembolism: to watch for potential DVT/Pulmonary Embolism, and if so to go to the ED/call 911. 10-End of life issues: Adv Dir in chart. -Patient discussed, this important aspect, of his diagnosis, that is, that he acknowledges, that this condition will end his life, at young age, and relatively soon and that he has goals, for the next year or so, that is, to attend, important milestones events of his children's, which will take place, in the next year or so. Currently,02/19/24 his children's are 20 and 21 years old. He has seen Dr. Lion, from palliative medicine will also give advice regarding This. 11-psychosocial issues: Patient asked, advised on how to approach, his current diagnosis and progressive disease, with his children who are 2020. We given some advice, how it could be helpful for his children to cope with his unfortunate condition. However, we recommended for him to seek attention from psychosocial oncology, and this Could be expanded to the family. He has seen Dr. Daniel Juárez from psychology and psychiatry, as well [facility] Jaclyn Guillory. 12-Hygroma on surgical site: MRI 08/22/2024 New chronic appearing subdural hemorrhage measuring 11 mm in maximal thickness overlying the left parietal convexity with approximately 2 mm rightward midline shift. Redistribution of cystic hygroma, now measuring up to 4 mm in maximal thickness and predominantly along the left frontoparietal falx. 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 He saw Dr. Wilcox/surgical team (09/08/24) to address this today 09/08/24. Also clinically there is bulging of craniotomy site, not symptomatic. Dr. Evans recommend observation. 13-Fatigue after chemo - start Provigil for fatigue, improve alertness - wakefulness. I discussed potential benefits and side effects. I am seeing the patient in collaboration with Tona Cobos RN [facility] Banking Supervisor PLAN: -Off clinical trial: CASE 3322 clinical trial with methimazole + chemo. -Transferred to SOC team. In the end the patient and family verbalized understanding of the above, they had questions which I believe I answered to their satisfaction and agreed with these recommendations and had no further questions or concerns for the moment, but I encourage them to call the [facility] with any questions or concerns. I spent a total of 40 minutes on the date of the service which included preparing to see the patient, at least 50% of fevq-gs-onun patient care, completing clinical documentation, obtaining and/or reviewing separately obtained history, performing a medically appropriate examination, counseling and educating the patient/family/caregiver, ordering medications, tests, or procedures, communicating with other HCPs (not separately reported), independently interpreting results (not separately reported), communicating results to the patient/family/caregiver and care coordination (not separately reported). High MDM. Patricia Enriquez MD [facility] Patient Care Team: -Jose Evans MD, Neurosurgery, [facility], [facility], [facility] Cyndee Joyce MD, PhD, Radiation Oncology, [facility], [facility]. Jaclyn Guillory LSW as Pull Worker (Hematology/Oncology) Soraida Simmons RN (Hospice AND Palliative Medicine) Willy Lion MD (Hospice AND Palliative Medicine) Rupa Khoury APRN.CNP (Hospice AND Palliative Medicine) Daniel Juárez PSYD, Psychology, [facility] Referring Provider: PATRICIA ENRIQUEZ [[id number]] Allergies As of Date: 09/08/2024 (No Known Allergies) Date Reviewed: 09/08/2024 Reviewed by: Kenna Carballo OCCA - Fully Assessed Primary Visit Diagnosis:Glioblastoma (HCC) [C71.9] Prescriptions as of 09/09/2024 - iv contrast (will be provided with radiology test) MRI Brain Localization Inject, intravenously, once for 1 dose.No IV access, insert saline lock prior to beginning of sedation, infusion, injection of imaging exam.Discontinue saline lock post exam. If Pt. has a central line or IVAD, may access for administration according to line specific nursing protocol.Once exam is complete flush line and de-access according to line specific nursing protocol in the MR contrast administration guidelines link - iv contrast (will be provided with radiology test) MRI Brain Inject, intravenously, once for 1 dose.No IV access, insert saline lock prior to beginning of sedation, infusion, injection of imaging exam.Discontinue saline lock post exam. If Pt. has a central line or IVAD, may access for administration according to line specific nursing protocol.Once exam is complete flush line and de-access according to line specific nursing protocol in the MR contrast administration guidelines link - modafinil (PROVIGIL) 100 mg tablet Take 1 tablet by mouth once daily for 42 days. - traZODone (DESYREL) 50 mg tablet Take 1 tablet by mouth daily at bedtime. - lacosamide (VIMPAT) 150 mg tab Take 1 tablet by mouth two times a day. - lomustine (GLEOSTINE) 100 mg capsule Take one 8mg Zofran on an empty stomach in the evening. Wait ONE hour. Take TWO 100mg capsule(s) Lomustine by mouth for a total dose of 200mg. Take one 8 mg Zofran twenty-four hours later. Take on Day 1 of each 42 day cycle. - methIMAzole (TAPAZOLE) 5 mg tablet Take TWO 10 mg tablets and ONE 5 mg tablet for a total dose of 25 mg, daily. - methIMAzole (TAPAZOLE) 10 mg tablet Take TWO 10 mg tablets and ONE 5 mg tablet for a total dose of 25 mg, daily. - triamcinolone (KENALOG) 0.025 % cream Apply to affected area two times a day. - predniSONE (DELTASONE) 10 mg tablet Day #1 - 6 tablets PO then Day #2 - 5 tablets PO then Day #3 - 4 tablets PO then Day #4 - 3 tablets PO then Day #5 - 2 tablets PO then Day #6 - 1 tablet PO - ondansetron (ZOFRAN) 8 mg tablet Take one tablet by mouth on an empty stomach in the evening one hour prior to chemo. Then take one tablet 24 hours after chemo. May repeat dose every 8-12 hours if needed to prevent nausea - meclizine (ANTIVERT) 25 mg tab Take 1 tablet by mouth three times a day. - valACYclovir (VALTREX) 1 gram tablet Take 1,000 mg by mouth three times a day. - midazolam (NAYZILAM) 5 mg/spray (0.1 mL) nasal spray Use 1 [place] in the nose as needed for up to 10 days. May repeat dose in alternate nostril after 10 minutes based on response and tolerability. - sennosides (SENNA ORAL) Take by mouth. - DIETARY SUPPLEMENT,MISC COMB14 ORAL Take by mouth. Biomega 1000mg containing vitamin E and pure anchovy - medical supply, miscellaneous (MISCELLANEOUS MEDICAL SUPPLY MIS) Neurotrophin - acetaminophen (TYLENOL) 325 mg tablet 2 tablets by ORAL/FEEDING TUBE route every 4 hours as needed for pain. - pantoprazole DR (PROTONIX) 20 mg tablet Take 1 tablet by mouth DAILY (6 AM). Problem List As Of Date 09/08/2024 Noted Resolved Chest pain [R07.9] 04/25/2010 05/26/2024 Brain mass [G93.89] 03/17/2023 11/17/2023 Obesity, Class I, BMI 30-34.9 [E66.811] 03/17/2023 Brain compression (HCC) [G93.5] 03/20/2023 S/P brain surgery [Z98.890] 03/20/2023 11/17/2023 At risk for seizures [Z91.89] 03/20/2023 Cerebral edema (HCC) [G93.6] 03/20/2023 GBM (glioblastoma multiforme) (HCC) [C71.9] 04/07/2023 Syncope, unspecified syncope type [R55] 11/01/2023 11/03/2023 Examination of participant in clinical trial [Z*11/05/2023 11/17/2023 Forehead pain [R51.9] 11/05/2023 PONV (postoperative nausea and vomiting) [R11.2*05/26/2024 Acute post-operative pain [G89.18] 05/29/2024 Encounter Status:Closed by PATRICIA ENRIQUEZ on 09/09/24 PROGRESS Observed: 09/08/2024 10:54 AM Status: COMPLETED Source: [facility] HNO ID: [id number] Author: NADEEN BECKETT RN Service: ? Author Type: Registered Nurse Type: Progress Notes Filed: 09/12/2024 13:41 Note Text: IRB#: [id number] Case 3322 - Targeting Transsulfuration via Suppression of Thyroid Hormone Signaling in Progressive Glioblastoma; Modified Phase 1/2 and Pharmacodynamic Trial of Methimazole in Patients with Progressive WHO Grade 4 Glioblastoma END OF TREATMENT PATIENT NAME: Angel Keating : 1970 Patient verified by name and : YES Patient study ID: [id number] Primary MD: Dr. Enriquez Study start date: 05/24/2024 (start of Pre-Op Methimazole) Denies numbness, weakness, gait imbalance, seizures, headaches, or visual disturbances. Denies SOB, no edema, no falls. HANDP, neuro exam: Dr. Enriquez Was physical and neuro exam completed by a resident or fellow?: NO Change in KPS: NO; Patient's KPS: 90: Able to carry on normal activity; minor signs or symptoms of disease Steroid dose: none Changes in medication regimen: No Any new thyroid medications added to regimen: No Hypothyroidism symptoms may include: Tiredness. More sensitivity to cold. Constipation. Dry skin. Weight gain. Puffy face. Hoarse voice. Coarse hair and skin. Muscle weakness. Muscle aches, tenderness and stiffness. Menstrual cycles that are heavier than usual or irregular. Thinning hair. Slowed heart rate, also called bradycardia. Depression. Memory problems. Does patient have any signs or symptoms of hypothyroidism: No Hyperthyroidism sometimes looks like other health problems: Losing weight without trying. Fast heartbeat, a condition called tachycardia. Irregular heartbeat, also called arrhythmia. Pounding of the heart, sometimes called heart palpitations. Increased hunger. Nervousness, anxiety and irritability. Tremor, usually a small trembling in the hands and fingers. Sweating. Changes in menstrual cycles. Increased sensitivity to heat. Changes in bowel patterns, especially more-frequent bowel movements. Enlarged thyroid gland, sometimes called a goiter, which may appear as a swelling at the base of the neck. Tiredness. Muscle weakness. Sleep problems. Warm, moist skin. Thinning skin. Fine, brittle hair. Does patient have any signs or symptoms of hyperthyroidism: No Vitals in clinic: 09/08/2024 10:09 AM ONCOLOGY VITALS (ALL DEPTS) Temp 36.7 ?C (98 ?F) Pulse 70 Resp 18 SYSTOLIC 139 DIASTOLIC 89 SpO2 98 % WEIGHT (lb) 221 lb 1.9 oz WEIGHT (kg) 100.3 kg BSA (Mosteller Formula) 2.22 m2 BMI 32.12 kg/m2 Weight obtained: YES Labs: Latest Ref Rng 09/08/2024 WBC 3.70 - 11.00 k/uL 5.38 RBC 4.20 - 6.00 m/uL 4.18 (L) Hemoglobin 13.0 - 17.0 g/dL 13.6 Hematocrit 39.0 - 51.0 % 38.4 (L) MCV 80.0 - 100.0 fL 91.9 MCH 26.0 - 34.0 pg 32.5 MCHC 30.5 - 36.0 g/dL 35.4 RDW-CV 11.5 - 15.0 % 14.6 Platelet Count 150 - 400 k/uL 254 MPV 9.0 - 12.7 fL 8.3 (L) Neut% % 74.7 Abs Neut (ANC) 1.45 - 7.50 k/uL 4.02 Lymph% % 12.3 Abs Lymph 1.00 - 4.00 k/uL 0.66 (L) Branch% % 10.2 Abs Branch <0.87 k/uL 0.55 Eosin% % 1.7 Abs Eosin <0.46 k/uL 0.09 Baso% % 0.9 Abs Baso <0.11 k/uL 0.05 Immature Gran % % 0.2 IMMATURE GRANS (ABS) <0.10 k/uL <0.03 NRBC /100 WBC 0.0 Absolute nRBC <0.01 k/uL <0.01 DTYPE Auto Protein, Total 6.3 - 8.0 g/dL 6.9 Albumin 3.9 - 4.9 g/dL 3.8 (L) Calcium 8.5 - 10.2 mg/dL 8.9 Bilirubin, Total 0.2 - 1.3 mg/dL 0.6 Alkaline Phosphatase 38 - 113 U/L 121 (H) AST 14 - 40 U/L 11 (L) ALT 10 - 54 U/L 9 (L) Glucose 74 - 99 mg/dL 110 (H) BUN 9 - 24 mg/dL 10 Creatinine 0.73 - 1.22 mg/dL 1.21 Sodium 136 - 144 mmol/L 137 Potassium 3.7 - 5.1 mmol/L 4.2 Chloride 98 - 107 mmol/L 104 CO2 22 - 30 mmol/L 25 Anion Gap 8 - 15 mmol/L 8 eGFR >=60 mL/min/1.73m? 71 Free T4 0.9 - 1.7 ng/dL 1.0 T4 5.5 - 10.2 ug/dL 6.7 Free T3 2.3 - 4.1 pg/mL 2.4 T3 79 - 165 ng/dL 90 TSH 0.270 - 4.200 mIU/L 3.090 Legend: (L) Low (H) High Treatment plan: Completed treatments: Pre-Op Methimazole (Dose Level 2; 25 mg daily): 05/24/2024 to 06/15/2024 (including DAY of surgery) Surgical Resection by Dr. Evans: 05/27/2024 Post-Op Methimazole (Dose Level 2; 25 mg daily): 05/27/2024 (POD1) to 06/15/2024 Cycle 1 Methimazole (Dose Level 2; 25 mg daily): 06/16 to 07/13 Cycle 1 Lomustine 06/28/2024 (200 mg 1Q42D): Cycle 2 Methimazole (Dose Level 2; 25 mg daily): 07/14 to 08/10/2024 Cycle 3 Methimazole (Dose Level 2; 25 mg daily): 08/12 to 08/30/2024 Cycle 3 Lomustine (200 mg 1Q42D): 09/07/2024 Patient returned twenty-two 10mg tablets and eleven 5mg tablets from previous cycle. Ongoing AE Grade Scale Assessment - CTCAE v.5: Neuro, other (thought process changes) - Grade 1 - Baseline; Probable to study disease. Symptom is: Controlled with no intervention; Approximately started: 03/16/2023 to present; Baseline at screening 04/09/2023 Seizures (at risk for) - Grade 1 - Baseline; Unrelated to historical disorder/disease; Probable to study disease. 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 Symptom is: Controlled with lifestyle changes; Approximately started: 05/12/2024 to present; Baseline at screening 05/12/2024; upgraded to grade 2 on 05/26/2024; Current status: Ongoing - worsening. Stable. Elevated Alkaline Phosphatase - Grade 3 - Probable to Methimazole, unlikely to Lomustine, Unlikely to study disease. Symptom is: Controlled; Start date: 07/14/2024; Action required for AE: NO; Intervention required: none; Current status/outcome: Ongoing - stable Rash (Diffused on Upper and Lower Extremities)- Grade 1 - Probable to Methimazole, Unlikely to Lomustine, Unlikely to study disease. Symptom is: Controlled; Start date: 07/25/2024; Action required for AE: NO; Intervention required: Patient instructed to visit his nearest Urgent Care for evaluation; Current status/outcome: Ongoing - stable Decreased RBC - Grade 1 - Unlikely to Methimazole, possible to LomustineUnlikely to study disease. Symptom is: Controlled; Start date: 07/14/2024; Action required for AE: NO; Intervention required: none; Current status/outcome: Ongoing - stable NEW AEs: Decreased AST - Grade 1 - unlikely to Methimazole, Unlikely to study disease. Symptom is: Controlled; Start date: 06/16/2024; Action required for AE: NO; Intervention required: none; Current status/outcome: Ongoing - stable. RESOLVED 07/14/2024. REINSTATED as Grade 1 on 09/08/2024 Decreased ALT - Grade 1 - unlikely to Methimazole, Unlikely to study disease. Symptom is: Controlled; Start date: 09/08/2024; Action required for AE: NO; Intervention required: none; Current status/outcome: Ongoing - stable RESOLVED AEs: Elevated AST - Grade 1 - Probable to Methimazole, unlikely to Lomustine, Unlikely to study disease. Symptom is: Controlled; Start date: 07/14/2024; Action required for AE: NO; Intervention required: none; Current status/outcome: Ongoing - stable. RESOLVED 08/12/2024 Elevated ALT - Grade 2 - Probable to Methimazole, unlikely to Lomustine, Unlikely to study disease. Symptom is: Controlled; Start date: 07/14/2024; Action required for AE: NO; Intervention required: none; Current status/outcome: Ongoing - stable. RESOLVED 08/12/2024 Hypocalcemia - Grade 1 - Possible to Methimazole, Unlikely to study disease. Symptom is: Controlled; Start date: 06/16/2024; Action required for AE: NO; Intervention required: none; Current status/outcome: Ongoing - stable. RESOLVED 07/14/2024 Hyponatremia - Grade 1 - unlikely to Methimazole, Unlikely to study disease. Symptom is: Controlled; Start date: 06/16/2024; Action required for AE: NO; Intervention required: none; Current status/outcome: Ongoing - stable. RESOLVED 07/14/2024 Discharged in apparent satisfactory condition. All questions answered. Patient agree to call with questions, concerns, change in symptoms. Patient agreed to call with any symptoms or side effects not mentioned. Patient agreed to plan. Patient has the contact information for treating physician, research staff and the 24-hour [id number]-[id number] number ([phone] or ) for the Heme/Onc Fellow. Nadeen Beckett RN 09/08/2024 10:55 AM Chart routed to Dr. Enriquez (Primary): YES PROGRESS Observed: 09/08/2024 10:33 AM Status: COMPLETED Source: [facility] HNO ID: [id number] Author: KARLA PEDROZA MA Service: ? Author Type: Camp Housekeeper Type: Progress Notes Filed: 09/09/2024 00:15 Note Text: Reviewed and confirmed with patient that there were no changes in the the nursing assessment and vitals that were completed on September 08, 2024 during previous provider appointment. Karla Pedroza MA PROGRESS Observed: 09/08/2024 10:08 AM Status: COMPLETED Source: [facility] HNO ID: [id number] Author: KARLA PEDROZA MA Service: ? Author Type: Camp Housekeeper Type: Progress Notes Filed: 09/08/2024 11:47 Note Text: Additional intake questions: Has the patient had fever, nausea, vomiting, diarrhea, constipation, fatigue for > 1 week? Yes, fatigue and Provider Notified Does the patient have a decreased appetite? Yes Does patient want to see a Outside Solar Sales Consultant? No (yes to any of above refer patient to schedulers for dietitian appointment) ) Does patient have any new or increased numbness or tingling of extremities? No Is patient interested in fertility information? No Does patient need any prescription refills? No Does patient have an advanced directive in place? Yes, copies are in Epic Electronically Signed By: Karla Pedroza MA PROGRESS Observed: 09/08/2024 10:00 AM Status: COMPLETED Source: [facility] HNO ID: [id number] Author: JOSE EVANS MD Service: ? Author Type: Physician Type: Progress Notes Filed: 09/08/2024 11:47 Note Text: [facility] Follow-Up Visit Diagnosis: MGMT unmethylated Glioblastoma. L temporal Subjective History of Present Illness: 52 yo RHM PMH of a left-sided craniotomy for resection of the temporal mass on 03/19/23. Pathology confirmed glioblastoma multiforme (GBM), [id number] negative, MGMT unmethylated, and TERTp promotor per TOP. The patient was enrolled in the [facility] ND trial and was randomized to receive radiation therapy, temozolomide, and [id number] during concurrent therapy. He has completed seven cycles of adjuvant temozolomide per protocol, with [id number] being administered continuously twice weekly since 04/20/2023. Recent MRI shows progression. 05/27 Left sided re-do craniotomy for tumor resection. Scheduled to see post op Patient continues on CASE 3322 since 06/16/2024, w/ Lomustine started on 07/28/2024. September 08, 2024 update: patient presents to discuss the most recent MRI , brain tumor board recommendations . In addition , he has left temporal soft swelling that developed after 2nd surgery , did aspiration of left temporal swelling and Crepe bandage 06/2024 and it recollected again Patient complains of discomfort related to sleeping on left side of his head , short term memory issues and WFD since 2nd surgery Last Chemo: Lomustine Current Steroids dose: nil Current AED Dose: nil Therapy Status Data Form Past Medical History: PAST MEDICAL HISTORY Diagnosis Date At risk for seizures 03/19/2023 due to left temporal glioblastoma GBM (glioblastoma multiforme) (HCC) 03/19/2023 WHO Grade 4 GBM; IDH1 R132H negative (wildtype); ATRX retained (wildtype); BRAF V600E negative (wildtype); p53 strong up to 40%; Ki67 up to 25%, MGMT unmethylated Past Surgical History: PAST SURGICAL HISTORY Procedure Laterality Date APPENDECTOMY 1976 removed as part of internal bleeding due to trauma COLONOSCOPY FLX DX W/COLLJ SPEC WHEN PFRMD Colonoscopy ESOPHAGOGASTRODUODENOSCOPY TRANSORAL DIAGNOSTIC EGD EXCIS SUPRATENT BRAIN TUMOR 03/19/2023 Left-sided craniotomy for temporal mass resection by Dr. Evans; path = GBM ORTHOPEDICS SURGERY HX 1996 knee surgery SHX CRANIOTOMY Left 03/19/2023 Family History: FAMILY HISTORY Problem Relation Age of Onset Diabetes Father Coronary Artery Disease Father Stroke Father Breast Cancer Mother None Sister Anesthesia Problems No Family History Social History Tobacco Use Smoking status: Former Current packs/day: 1.00 Average packs/day: 1 pack/day for 4.0 years (4.0 ttl pk-yrs) Types: Cigarettes Smokeless tobacco: Never Vaping Use Vaping status: Never Used Substance Use Topics Alcohol use: Not Currently Comment: three beers a month - per pt [id number] Drug use: Never Allergies: Patient has no known allergies. Current Outpatient Medications Medication Sig iv contrast (will be provided with radiology test) MRI Brain Inject, intravenously, once for 1 dose.No IV access, insert saline lock prior to beginning of sedation, infusion, injection of imaging exam.Discontinue saline lock post exam. If Pt. has a central line or IVAD, may access for administration according to line specific nursing protocol.Once exam is complete flush line and de-access according to line specific nursing protocol in the MR contrast administration guidelines link modafinil (PROVIGIL) 100 mg tablet Take 1 tablet by mouth once daily for 42 days. traZODone (DESYREL) 50 mg tablet Take 1 tablet by mouth daily at bedtime. lacosamide (VIMPAT) 150 mg tab Take 1 tablet by mouth two times a day. lomustine (GLEOSTINE) 100 mg capsule Take one 8mg Zofran on an empty stomach in the evening. Wait ONE hour. Take TWO 100mg capsule(s) Lomustine by mouth for a total dose of 200mg. Take one 8 mg Zofran twenty-four hours later. Take on Day 1 of each 42 day cycle. methIMAzole (TAPAZOLE) 5 mg tablet Take TWO 10 mg tablets and ONE 5 mg tablet for a total dose of 25 mg, daily. methIMAzole (TAPAZOLE) 10 mg tablet Take TWO 10 mg tablets and ONE 5 mg tablet for a total dose of 25 mg, daily. triamcinolone (KENALOG) 0.025 % cream Apply to affected area two times a day. (Patient not taking: Reported on 08/22/2024) predniSONE (DELTASONE) 10 mg tablet Day #1 - 6 tablets PO then Day #2 - 5 tablets PO then Day #3 - 4 tablets PO then Day #4 - 3 tablets PO then Day #5 - 2 tablets PO then Day #6 - 1 tablet PO (Patient not taking: Reported on 08/12/2024) ondansetron (ZOFRAN) 8 mg tablet Take one tablet by mouth on an empty stomach in the evening one hour prior to chemo. Then take one tablet 24 hours after chemo. May repeat dose every 8-12 hours if needed to prevent nausea meclizine (ANTIVERT) 25 mg tab Take 1 tablet by mouth three times a day. (Patient not taking: Reported on 09/05/2024) valACYclovir (VALTREX) 1 gram tablet Take 1,000 mg by mouth three times a day. (Patient not taking: Reported on 08/22/2024) midazolam (NAYZILAM) 5 mg/spray (0.1 mL) nasal spray Use 1 [place] in the nose as needed for up to 10 days. May repeat dose in alternate nostril after 10 minutes based on response and tolerability. sennosides (SENNA ORAL) Take by mouth. (Patient not taking: Reported on 08/12/2024) DIETARY SUPPLEMENT,MISC COMB14 ORAL Take by mouth. Biomega 1000mg containing vitamin E and pure anchovy (Patient not taking: Reported on 08/12/2024) medical supply, miscellaneous (MISCELLANEOUS MEDICAL SUPPLY MIS) Neurotrophin acetaminophen (TYLENOL) 325 mg tablet 2 tablets by ORAL/FEEDING TUBE route every 4 hours as needed for pain. pantoprazole DR (PROTONIX) 20 mg tablet Take 1 tablet by mouth DAILY (6 AM). (Patient not taking: Reported on 08/22/2024) No current facility-administered medications for this visit. Review of systems: Constitutional: No recent fever or weight loss. Eyes: No history of glaucoma or cataracts. ENMT: No recent ear infection, nasal congestion, mouth sores or sore throat. CV: No history of chest pain, palpitations or leg swelling. Respiratory: No history of SOB, asthma or recent cough. Gastrointestinal: No history of nausea, vomiting, dysphagia or abdominal pain. Genitourinary: No history of hematuria or dysuria. Musculoskeletal: No complaint of arthritis, unstable gait or arm/leg weakness. Psychiatric: No history of hallucinations or depression or anxiety. ROS Neurological: No complaint of headache. No complaint of tinnitus. No complaint of decreased hearing. No complaint of diplopia. No complaints of decreased visual acuity. No complaint of arm/leg numbness. No problem with limb coordination. No complaint of syncope, seizures or disorientation. Objective Physical Exam: There were no vitals taken for this visit. General appearance: well appearing, in no acute distress, alert Head: NC/AT Eyes: clear, anicteric Oropharynx: clear, no lesions Neck: supple, no LAD Lungs: CTA bilaterally, no W/C Heart: RR without murmur noted Abdomen: soft, NT/ND Extremities: warm, no cyanosis or edema Skin: color, texture, and turgor unremarkable. No rashes or lesions. PE Neuro: AANDO x3. CN II-XII grossly intact except decreased sensation left temporal area, left soft swelling , right superior VF deficit Motor: appropriate muscle bulk, tone, and strength. Sensorium: grossly intact. Gait: Unremarkable Wound clean dry healed well Karnofsky performance status: 90 - Able to carry on normal activity, minor signs or symptoms of disease. ECOG performance status: 0 - Fully active, able to carry on all pre-disease performance without restriction. PHQ depression alert addressed with patient: No 05/18/2023 PHQ 2 and 9 Total Scores PHQ-2 Score 1 PHQ-9 Score 8 Labs: Latest Ref Rng AND Units 07/14/2024 08/12/2024 08/29/2024 CBC WBC 3.70 - 11.00 k/uL 4.83 4.93 5.20 RBC 4.20 - 6.00 m/uL 4.17 4.13 4.35 Hemoglobin 13.0 - 17.0 g/dL 13.6 13.4 14.2 Hematocrit 39.0 - 51.0 % 38.6 38.0 40.5 MCV 80.0 - 100.0 fL 92.6 92.0 93.1 MCH 26.0 - 34.0 pg 32.6 32.4 32.6 MCHC 30.5 - 36.0 g/dL 35.2 35.3 35.1 RDW-CV 11.5 - 15.0 % 14.7 15.9 15.5 Platelet Count 150 - 400 k/uL 220 164 226 MPV 9.0 - 12.7 fL 8.4 8.6 8.2 Baso% % 1.4 0.2 0.8 Abs Neut (ANC) 1.45 - 7.50 k/uL 3.01 3.83 3.39 Abs Lymph 1.00 - 4.00 k/uL 0.55 0.62 1.06 Abs Branch <0.87 k/uL 0.77 0.42 0.57 Abs Eosin <0.46 k/uL 0.40 0.03 0.11 Abs Baso <0.11 k/uL 0.07 <0.03 0.04 NRBC /100 WBC 0.0 0.0 0.0 Latest Ref Rng AND Units 06/16/2024 07/14/2024 08/12/2024 CMP Sodium 136 - 144 mmol/L 135 141 137 Potassium 3.7 - 5.1 mmol/L 4.0 4.0 4.2 Chloride 98 - 107 mmol/L 104 105 104 CO2 22 - 30 mmol/L 21 27 23 Glucose 74 - 99 mg/dL 97 105 112 BUN 9 - 24 mg/dL 23 7 15 Creatinine 0.73 - 1.22 mg/dL 1.05 0.88 1.02 EGFR >=60 mL/min/1.73m? 84 102 87 Protein, Total 6.3 - 8.0 g/dL 5.9 6.5 6.8 Albumin 3.9 - 4.9 g/dL 3.4 3.9 3.8 Calcium 8.5 - 10.2 mg/dL 8.2 9.1 9.2 Bilirubin, Total 0.2 - 1.3 mg/dL 0.6 0.5 0.3 AST 14 - 40 U/L 11 80 14 ALT 10 - 54 U/L 21 218 29 Alkaline Phosphatase 38 - 113 U/L 64 613 171 Final Pathology: GBM Imaging: MRI Report MRI BRAIN WO/W IVCON Exam End: 08/22/2024 12:12 PM (Final result) Narrative: * * *Final Report* * * DATE OF EXAM: Aug 22 2024 12:12PM QBM [id number] - MRI BRAIN WO/W IVCON / PROCEDURE REASON: GBM (glioblastoma multiforme) (HCC) * * * * Physician Interpretation * * * * EXAMINATION: MRI BRAIN WO/W IVCON HISTORY: Glioblastoma, initially resected on 03/19/2023 with reresection on 05/27/2024 and pathology showing recurrent glioblastoma. Status post chemoradiation. TECHNIQUE: Routine brain MRI protocol without contrast including diffusion images. MR perfusion study was performed of the entire brain following bolus intravenous administration of gadolinium utilizing dynamic susceptibility-weighted contrast-enhanced acquisition. MQ: [id number] Contrast: 20 mL Dotarem IV COMPARISON: Multiple brain MRI most recently 07/13/2024 RESULT: Postprocedural Change: Left-sided pterional craniotomy with pseudomeningocele largely superficial to the craniotomy measuring 67 x 15 mm (AP x TV) as well as a small component immediately deep to the craniotomy. The superficial component previously measured 62 x 10 mm (AP x TV). Resection cavity in the anterior left middle cranial fossa. Acute Change: No diffusion restriction to suggest acute infarct. Hemorrhage: Probable tiny capillary telangiectasia in the right caudate evidence by focus of susceptibility dephasing artifact and blush of enhancement, unchanged. Mass Lesion / Mass Effect: Increased T2/FLAIR hyperintensity in the left amygdala and residual anterior left temporal lobe adjacent to the resection cavity compared to 07/13/2024. Unchanged 6 x 9 mm (AP x TV) enhancing nodule in the left amygdala. New chronic appearing subdural hemorrhage measuring 11 mm in maximal thickness overlying the left frontoparietal convexity. Additional redistribution of cystic hygroma, now measuring 4 mm in maximal thickness and predominantly along the left frontoparietal falx. 2 mm rightward midline shift. Dural based enhancing masses along the left anterior falx measuring up to 5 mm as well as an additional dural based enhancing lesion overlying the left superior frontal lobe measuring up to 6 mm, larger compared to 07/13/2024 and new since 04/12/2024. Previously imaged enhancement in the left basal ganglia is not identified on the current study and was likely artifactual. Perfusion: Adequate perfusion imaging quality with full bolus capture, negligible patient motion, and only minor confounding susceptibility effect. There is some CBV elevation in the vicinity of the enhancing nodule in the mesial left temporal lobe, however location of the stability to vascular structures makes it difficult to assess this region. Chronic Change: None. Parenchyma: Mild parenchymal volume loss for age. Ventricles: Partial effacement of the left lateral ventricle. Otherwise ventricular enlargement concordant with the degree of parenchymal volume loss. Skull Base: Grossly normal pituitary region. Normal craniocervical junction. No marrow replacing process. Vasculature: Patent major intracranial arterial structures and dural venous sinuses. Other: Grossly clear imaged paranasal sinuses. Clear mastoid air cells. Unremarkable orbits. Impression: IMPRESSION: Slight further increase in size of enhancing nodule in the left mesial temporal lobe with surrounding FLAIR hyperintensity. Increasing enlargement is suspicious of neoplastic progression but continued follow-up is recommended. Continued increased size of extra-axial enhancing foci along the falx and over the left frontal convexity at the vertex. No new pathologic enhancement otherwise. New chronic appearing subdural hemorrhage measuring 11 mm in maximal thickness overlying the left parietal convexity with approximately 2 mm rightward midline shift. Redistribution of cystic hygroma, now measuring up to 4 mm in maximal thickness and predominantly along the left frontoparietal falx. 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 Call Worker Person: EMILI Transcribe Date/Time: Aug 22 2024 12:15P Dictated by : AMBREEN FERNANDEZ MD This examination was interpreted and the report reviewed and electronically signed by: BAN RITCHIE DO on Aug 22 2024 2:00PM EST Data Review: Personal review of medical records: I reviewed the [facility] chart. Personal review of image, tracing or specimen: Slight further increase in size of enhancing nodule in the left mesial temporal lobe with surrounding FLAIR hyperintensity. Increasing enlargement is suspicious of neoplastic progression but continued follow-up is recommended. Continued increased size of extra-axial enhancing foci along the falx and over the left frontal convexity at the vertex. No new pathologic enhancement otherwise. New chronic appearing subdural hemorrhage measuring 11 mm in maximal thickness overlying the left parietal convexity with approximately 2 mm rightward midline shift. Redistribution of cystic hygroma, now measuring up to 4 mm in maximal thickness and predominantly along the left frontoparietal falx. 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 Lesion size: Multifocal: No Subependymal spread: No Assessment AND Plan Treatment Options and Risks: I have discussed the management options and their respective risks and benefits with the patient. We discussed MRI finding and brain tumor board recommendation to proceed with lomustine and consider GKRS for 2 enhancing nodules Regarding left temporal swelling , we would observe for time being We discussed the multisession Gamma Knife procedure. On a planning day, an IV is started and an MRI (MPRAGE with fat saturation without and with contrast) is obtained, along with a CT scan with contrast. A thermoplastic mask is made and a cone beam CT will obtain. Meanwhile, the CT and MRI are transferred to our planning computer where I fuse the images and define regions to be treated (or not). Thereafter I create a plan by applying different size, intensities and locations of focused radiation to the lesion such that the end result is that the treatment dose of radiation nearly matches the size, shape and location of the lesion. The radiation oncologist reviews the plan and assigns a dose of radiation. The radiation physicist reviews the plan as well. The first treatment day, the patient will return for treatment. The patient lies down on the treatment couch and the mask is fitted. The CT scan on the Gamma Knife unit will determine the location of their head and the computer will then direct, with great accuracy, up to 192 beams of radiation to converge at the points I picked on the computer. The staff will leave the room prior to treatment and the patient will be monitored by 4 television cameras and 2 intercom systems. The patient will then slide into the device up to their lower chest for the duration of treatment, and then exit. Once the treatment is completed, the mask is removed and she is free to go home. The treatment will be repeated the following 3-5 days as per schedule. Postoperative and follow-up instructions will be given prior to discharge. Recommendations: As above Medicines: No Change Instructions: Continue present activity No resident was available to participate in this visit. I saw and evaluated the patient. I reviewed the fellow's note and agree with findings and plan as written. Nima Zaman MD 11:30 am 09/08/2024 [facility] I spent a total of 30 minutes on the date of the service which included preparing to see the patient, [id number] patient care, completing clinical documentation, obtaining and/or reviewing separately obtained history, counseling and educating the patient/family/caregiver, independently interpreting results (not separately reported), and care coordination (not separately reported). Jose Evans MD September 08, 2024 CNOV Observed: 09/08/2024 10:00 AM Status: COMPLETED Source: [facility] Office Visit (NSCAMN) ANGEL KEATING ([id number]) 1970 M Date Time Provider Department 09/08/24 10:00 AM JOSE EVANS [facility] During your visit today, we recorded the following information about you: Temperature Pulse Respiration Blood pressure 98 degrees 70/minute 18/minute 139/89 Weight 100.3 kg Jose Evans MD 09/08/2024 11:47 AM Signed [facility] Follow-Up Visit Diagnosis: MGMT unmethylated Glioblastoma. L temporal Subjective History of Present Illness: 52 yo RHM PMH of a left-sided craniotomy for resection of the temporal mass on 03/19/23. Pathology confirmed glioblastoma multiforme (GBM), [id number] negative, MGMT unmethylated, and TERTp promotor per TOP. The patient was enrolled in the [facility] ND trial and was randomized to receive radiation therapy, temozolomide, and [id number] during concurrent therapy. He has completed seven cycles of adjuvant temozolomide per protocol, with [id number] being administered continuously twice weekly since 04/20/2023. Recent MRI shows progression. 05/27 Left sided re-do craniotomy for tumor resection. Scheduled to see post op Patient continues on CASE 3322 since 06/16/2024, w/ Lomustine started on 07/28/2024. September 08, 2024 update: patient presents to discuss the most recent MRI , brain tumor board recommendations . In addition , he has left temporal soft swelling that developed after 2nd surgery , did aspiration of left temporal swelling and Crepe bandage 06/2024 and it recollected again Patient complains of discomfort related to sleeping on left side of his head , short term memory issues and WFD since 2nd surgery Last Chemo: Lomustine Current Steroids dose: nil Current AED Dose: nil Therapy Status Data Form Past Medical History: PAST MEDICAL HISTORY Diagnosis Date At risk for seizures 03/19/2023 due to left temporal glioblastoma GBM (glioblastoma multiforme) (HCC) 03/19/2023 WHO Grade 4 GBM; IDH1 R132H negative (wildtype); ATRX retained (wildtype); BRAF V600E negative (wildtype); p53 strong up to 40%; Ki67 up to 25%, MGMT unmethylated Past Surgical History: PAST SURGICAL HISTORY Procedure Laterality Date APPENDECTOMY 1976 removed as part of internal bleeding due to trauma COLONOSCOPY FLX DX W/COLLJ SPEC WHEN PFRMD Colonoscopy ESOPHAGOGASTRODUODENOSCOPY TRANSORAL DIAGNOSTIC EGD EXCIS SUPRATENT BRAIN TUMOR 03/19/2023 Left-sided craniotomy for temporal mass resection by Dr. Evans; path = GBM ORTHOPEDICS SURGERY HX 1996 knee surgery SHX CRANIOTOMY Left 03/19/2023 Family History: FAMILY HISTORY Problem Relation Age of Onset Diabetes Father Coronary Artery Disease Father Stroke Father Breast Cancer Mother None Sister Anesthesia Problems No Family History Social History Tobacco Use Smoking status: Former Current packs/day: 1.00 Average packs/day: 1 pack/day for 4.0 years (4.0 ttl pk-yrs) Types: Cigarettes Smokeless tobacco: Never Vaping Use Vaping status: Never Used Substance Use Topics Alcohol use: Not Currently Comment: three beers a month - per pt [id number] Drug use: Never Allergies: Patient has no known allergies. Current Outpatient Medications Medication Sig iv contrast (will be provided with radiology test) MRI Brain Inject, intravenously, once for 1 dose.No IV access, insert saline lock prior to beginning of sedation, infusion, injection of imaging exam.Discontinue saline lock post exam. If Pt. has a central line or IVAD, may access for administration according to line specific nursing protocol.Once exam is complete flush line and de-access according to line specific nursing protocol in the MR contrast administration guidelines link modafinil (PROVIGIL) 100 mg tablet Take 1 tablet by mouth once daily for 42 days. traZODone (DESYREL) 50 mg tablet Take 1 tablet by mouth daily at bedtime. lacosamide (VIMPAT) 150 mg tab Take 1 tablet by mouth two times a day. lomustine (GLEOSTINE) 100 mg capsule Take one 8mg Zofran on an empty stomach in the evening. Wait ONE hour. Take TWO 100mg capsule(s) Lomustine by mouth for a total dose of 200mg. Take one 8 mg Zofran twenty-four hours later. Take on Day 1 of each 42 day cycle. methIMAzole (TAPAZOLE) 5 mg tablet Take TWO 10 mg tablets and ONE 5 mg tablet for a total dose of 25 mg, daily. methIMAzole (TAPAZOLE) 10 mg tablet Take TWO 10 mg tablets and ONE 5 mg tablet for a total dose of 25 mg, daily. triamcinolone (KENALOG) 0.025 % cream Apply to affected area two times a day. (Patient not taking: Reported on 08/22/2024) predniSONE (DELTASONE) 10 mg tablet Day #1 - 6 tablets PO then Day #2 - 5 tablets PO then Day #3 - 4 tablets PO then Day #4 - 3 tablets PO then Day #5 - 2 tablets PO then Day #6 - 1 tablet PO (Patient not taking: Reported on 08/12/2024) ondansetron (ZOFRAN) 8 mg tablet Take one tablet by mouth on an empty stomach in the evening one hour prior to chemo. Then take one tablet 24 hours after chemo. May repeat dose every 8-12 hours if needed to prevent nausea meclizine (ANTIVERT) 25 mg tab Take 1 tablet by mouth three times a day. (Patient not taking: Reported on 09/05/2024) valACYclovir (VALTREX) 1 gram tablet Take 1,000 mg by mouth three times a day. (Patient not taking: Reported on 08/22/2024) midazolam (NAYZILAM) 5 mg/spray (0.1 mL) nasal spray Use 1 [place] in the nose as needed for up to 10 days. May repeat dose in alternate nostril after 10 minutes based on response and tolerability. sennosides (SENNA ORAL) Take by mouth. (Patient not taking: Reported on 08/12/2024) DIETARY SUPPLEMENT,MISC COMB14 ORAL Take by mouth. Biomega 1000mg containing vitamin E and pure anchovy (Patient not taking: Reported on 08/12/2024) medical supply, miscellaneous (MISCELLANEOUS MEDICAL SUPPLY MISC) Neurotrophin acetaminophen (TYLENOL) 325 mg tablet 2 tablets by ORAL/FEEDING TUBE route every 4 hours as needed for pain. pantoprazole DR (PROTONIX) 20 mg tablet Take 1 tablet by mouth DAILY (6 AM). (Patient not taking: Reported on 08/22/2024) No current facility-administered medications for this visit. Review of systems: Constitutional: No recent fever or weight loss. Eyes: No history of glaucoma or cataracts. ENMT: No recent ear infection, nasal congestion, mouth sores or sore throat. CV: No history of chest pain, palpitations or leg swelling. Respiratory: No history of SOB, asthma or recent cough. Gastrointestinal: No history of nausea, vomiting, dysphagia or abdominal pain. Genitourinary: No history of hematuria or dysuria. Musculoskeletal: No complaint of arthritis, unstable gait or arm/leg weakness. Psychiatric: No history of hallucinations or depression or anxiety. ROS Neurological: No complaint of headache. No complaint of tinnitus. No complaint of decreased hearing. No complaint of diplopia. No complaints of decreased visual acuity. No complaint of arm/leg numbness. No problem with limb coordination. No complaint of syncope, seizures or disorientation. Objective Physical Exam: There were no vitals taken for this visit. General appearance: well appearing, in no acute distress, alert Head: NC/AT Eyes: clear, anicteric Oropharynx: clear, no lesions Neck: supple, no LAD Lungs: CTA bilaterally, no W/C Heart: RR without murmur noted Abdomen: soft, NT/ND Extremities: warm, no cyanosis or edema Skin: color, texture, and turgor unremarkable. No rashes or lesions. PE Neuro: AANDO x3. CN II-XII grossly intact except decreased sensation left temporal area, left soft swelling , right superior VF deficit Motor: appropriate muscle bulk, tone, and strength. Sensorium: grossly intact. Gait: Unremarkable Wound clean dry healed well Karnofsky performance status: 90 - Able to carry on normal activity, minor signs or symptoms of disease. ECOG performance status: 0 - Fully active, able to carry on all pre-disease performance without restriction. PHQ depression alert addressed with patient: No 05/18/2023 PHQ 2 and 9 Total Scores PHQ-2 Score 1 PHQ-9 Score 8 Labs: Latest Ref Rng AND Units 07/14/2024 08/12/2024 08/29/2024 CBC WBC 3.70 - 11.00 k/uL 4.83 4.93 5.20 RBC 4.20 - 6.00 m/uL 4.17 4.13 4.35 Hemoglobin 13.0 - 17.0 g/dL 13.6 13.4 14.2 Hematocrit 39.0 - 51.0 % 38.6 38.0 40.5 MCV 80.0 - 100.0 fL 92.6 92.0 93.1 MCH 26.0 - 34.0 pg 32.6 32.4 32.6 MCHC 30.5 - 36.0 g/dL 35.2 35.3 35.1 RDW-CV 11.5 - 15.0 % 14.7 15.9 15.5 Platelet Count 150 - 400 k/uL 220 164 226 MPV 9.0 - 12.7 fL 8.4 8.6 8.2 Baso% % 1.4 0.2 0.8 Abs Neut (ANC) 1.45 - 7.50 k/uL 3.01 3.83 3.39 Abs Lymph 1.00 - 4.00 k/uL 0.55 0.62 1.06 Abs Branch <0.87 k/uL 0.77 0.42 0.57 Abs Eosin <0.46 k/uL 0.40 0.03 0.11 Abs Baso <0.11 k/uL 0.07 <0.03 0.04 NRBC /100 WBC 0.0 0.0 0.0 Latest Ref Rng AND Units 06/16/2024 07/14/2024 08/12/2024 CMP Sodium 136 - 144 mmol/L 135 141 137 Potassium 3.7 - 5.1 mmol/L 4.0 4.0 4.2 Chloride 98 - 107 mmol/L 104 105 104 CO2 22 - 30 mmol/L 21 27 23 Glucose 74 - 99 mg/dL 97 105 112 BUN 9 - 24 mg/dL 23 7 15 Creatinine 0.73 - 1.22 mg/dL 1.05 0.88 1.02 EGFR >=60 mL/min/1.73m? 84 102 87 Protein, Total 6.3 - 8.0 g/dL 5.9 6.5 6.8 Albumin 3.9 - 4.9 g/dL 3.4 3.9 3.8 Calcium 8.5 - 10.2 mg/dL 8.2 9.1 9.2 Bilirubin, Total 0.2 - 1.3 mg/dL 0.6 0.5 0.3 AST 14 - 40 U/L 11 80 14 ALT 10 - 54 U/L 21 218 29 Alkaline Phosphatase 38 - 113 U/L 64 613 171 Final Pathology: GBM Imaging: MRI Report MRI BRAIN WO/W IVCON Exam End: 08/22/2024 12:12 PM (Final result) Narrative: * * *Final Report* * * DATE OF EXAM: Aug 22 2024 12:12PM QBM 0295 - MRI BRAIN WO/W IVCON / PROCEDURE REASON: GBM (glioblastoma multiforme) (HCC) * * * * Physician Interpretation * * * * EXAMINATION: MRI BRAIN WO/W IVCON HISTORY: Glioblastoma, initially resected on 03/19/2023 with reresection on 05/27/2024 and pathology showing recurrent glioblastoma. Status post chemoradiation. TECHNIQUE: Routine brain MRI protocol without contrast including diffusion images. MR perfusion study was performed of the entire brain following bolus intravenous administration of gadolinium utilizing dynamic susceptibility-weighted contrast-enhanced acquisition. MQ: [id number]_[id number] Contrast: 20 mL Dotarem IV COMPARISON: Multiple brain MRI most recently 07/13/2024 RESULT: Postprocedural Change: Left-sided pterional craniotomy with pseudomeningocele largely superficial to the craniotomy measuring 67 x 15 mm (AP x TV) as well as a small component immediately deep to the craniotomy. The superficial component previously measured 62 x 10 mm (AP x TV). Resection cavity in the anterior left middle cranial fossa. Acute Change: No diffusion restriction to suggest acute infarct. Hemorrhage: Probable tiny capillary telangiectasia in the right caudate evidence by focus of susceptibility dephasing artifact and blush of enhancement, unchanged. Mass Lesion / Mass Effect: Increased T2/FLAIR hyperintensity in the left amygdala and residual anterior left temporal lobe adjacent to the resection cavity compared to 07/13/2024. Unchanged 6 x 9 mm (AP x TV) enhancing nodule in the left amygdala. New chronic appearing subdural hemorrhage measuring 11 mm in maximal thickness overlying the left frontoparietal convexity. Additional redistribution of cystic hygroma, now measuring 4 mm in maximal thickness and predominantly along the left frontoparietal falx. 2 mm rightward midline shift. Dural based enhancing masses along the left anterior falx measuring up to 5 mm as well as an additional dural based enhancing lesion overlying the left superior frontal lobe measuring up to 6 mm, larger compared to 07/13/2024 and new since 04/12/2024. Previously imaged enhancement in the left basal ganglia is not identified on the current study and was likely artifactual. Perfusion: Adequate perfusion imaging quality with full bolus capture, negligible patient motion, and only minor confounding susceptibility effect. There is some CBV elevation in the vicinity of the enhancing nodule in the mesial left temporal lobe, however location of the stability to vascular structures makes it difficult to assess this region. Chronic Change: None. Parenchyma: Mild parenchymal volume loss for age. Ventricles: Partial effacement of the left lateral ventricle. Otherwise ventricular enlargement concordant with the degree of parenchymal volume loss. Skull Base: Grossly normal pituitary region. Normal craniocervical junction. No marrow replacing process. Vasculature: Patent major intracranial arterial structures and dural venous sinuses. Other: Grossly clear imaged paranasal sinuses. Clear mastoid air cells. Unremarkable orbits. Impression: IMPRESSION: Slight further increase in size of enhancing nodule in the left mesial temporal lobe with surrounding FLAIR hyperintensity. Increasing enlargement is suspicious of neoplastic progression but continued follow-up is recommended. Continued increased size of extra-axial enhancing foci along the falx and over the left frontal convexity at the vertex. No new pathologic enhancement otherwise. New chronic appearing subdural hemorrhage measuring 11 mm in maximal thickness overlying the left parietal convexity with approximately 2 mm rightward midline shift. Redistribution of cystic hygroma, now measuring up to 4 mm in maximal thickness and predominantly along the left frontoparietal falx. 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 Call Worker Person: EMILI Transcribe Date/Time: Aug 22 2024 12:15P Dictated by : AMBREEN FERNANDEZ MD This examination was interpreted and the report reviewed and electronically signed by: BAN RITCHIE DO on Aug 22 2024 2:00PM EST Data Review: Personal review of medical records: I reviewed the [facility] chart. Personal review of image, tracing or specimen: Slight further increase in size of enhancing nodule in the left mesial temporal lobe with surrounding FLAIR hyperintensity. Increasing enlargement is suspicious of neoplastic progression but continued follow-up is recommended. Continued increased size of extra-axial enhancing foci along the falx and over the left frontal convexity at the vertex. No new pathologic enhancement otherwise. New chronic appearing subdural hemorrhage measuring 11 mm in maximal thickness overlying the left parietal convexity with approximately 2 mm rightward midline shift. Redistribution of cystic hygroma, now measuring up to 4 mm in maximal thickness and predominantly along the left frontoparietal falx. 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 Lesion size: Multifocal: No Subependymal spread: No Assessment AND Plan Treatment Options and Risks: I have discussed the management options and their respective risks and benefits with the patient. We discussed MRI finding and brain tumor board recommendation to proceed with lomustine and consider GKRS for 2 enhancing nodules Regarding left temporal swelling , we would observe for time being We discussed the multisession Gamma Knife procedure. On a planning day, an IV is started and an MRI (MPRAGE with fat saturation without and with contrast) is obtained, along with a CT scan with contrast. A thermoplastic mask is made and a cone beam CT will obtain. Meanwhile, the CT and MRI are transferred to our planning computer where I fuse the images and define regions to be treated (or not). Thereafter I create a plan by applying different size, intensities and locations of focused radiation to the lesion such that the end result is that the treatment dose of radiation nearly matches the size, shape and location of the lesion. The radiation oncologist reviews the plan and assigns a dose of radiation. The radiation physicist reviews the plan as well. The first treatment day, the patient will return for treatment. The patient lies down on the treatment couch and the mask is fitted. The CT scan on the Gamma Knife unit will determine the location of their head and the computer will then direct, with great accuracy, up to 192 beams of radiation to converge at the points I picked on the computer. The staff will leave the room prior to treatment and the patient will be monitored by 4 television cameras and 2 intercom systems. The patient will then slide into the device up to their lower chest for the duration of treatment, and then exit. Once the treatment is completed, the mask is removed and she is free to go home. The treatment will be repeated the following 3-5 days as per schedule. Postoperative and follow-up instructions will be given prior to discharge. Recommendations: As above Medicines: No Change Instructions: Continue present activity No resident was available to participate in this visit. I saw and evaluated the patient. I reviewed the fellow's note and agree with findings and plan as written. Nima Zaman MD 11:30 am 09/08/2024 [facility] I spent a total of 30 minutes on the date of the service which included preparing to see the patient, [id number] patient care, completing clinical documentation, obtaining and/or reviewing separately obtained history, counseling and educating the patient/family/caregiver, independently interpreting results (not separately reported), and care coordination (not separately reported). Jose Evans MD September 08, 2024 Karla Pedroza MA 09/08/2024 11:47 AM Signed Additional intake questions: Has the patient had fever, nausea, vomiting, diarrhea, constipation, fatigue for > 1 week? Yes, fatigue and Provider Notified Does the patient have a decreased appetite? Yes Does patient want to see a Outside Solar Sales Consultant? No (yes to any of above refer patient to schedulers for dietitian appointment) ) Does patient have any new or increased numbness or tingling of extremities? No Is patient interested in fertility information? No Does patient need any prescription refills? No Does patient have an advanced directive in place? Yes, copies are in Epic Electronically Signed By: Karla Pedroza MA Referring Provider: PATRICIA ENRIQUEZ [[id number]] Allergies As of Date: 09/08/2024 (No Known Allergies) Date Reviewed: 09/08/2024 Reviewed by: Karla Pedroza MA - Fully Assessed Reason for Visit: Established Patient [175] Primary Visit Diagnosis:GBM (glioblastoma multiforme) (HCC) [C71.9] Prescriptions as of 09/08/2024 - iv contrast (will be provided with radiology test) MRI Brain Localization Inject, intravenously, once for 1 dose.No IV access, insert saline lock prior to beginning of sedation, infusion, injection of imaging exam.Discontinue saline lock post exam. If Pt. has a central line or IVAD, may access for administration according to line specific nursing protocol.Once exam is complete flush line and de-access according to line specific nursing protocol in the MR contrast administration guidelines link - iv contrast (will be provided with radiology test) MRI Brain Inject, intravenously, once for 1 dose.No IV access, insert saline lock prior to beginning of sedation, infusion, injection of imaging exam.Discontinue saline lock post exam. If Pt. has a central line or IVAD, may access for administration according to line specific nursing protocol.Once exam is complete flush line and de-access according to line specific nursing protocol in the MR contrast administration guidelines link - modafinil (PROVIGIL) 100 mg tablet Take 1 tablet by mouth once daily for 42 days. - traZODone (DESYREL) 50 mg tablet Take 1 tablet by mouth daily at bedtime. - lacosamide (VIMPAT) 150 mg tab Take 1 tablet by mouth two times a day. - lomustine (GLEOSTINE) 100 mg capsule Take one 8mg Zofran on an empty stomach in the evening. Wait ONE hour. Take TWO 100mg capsule(s) Lomustine by mouth for a total dose of 200mg. Take one 8 mg Zofran twenty-four hours later. Take on Day 1 of each 42 day cycle. - methIMAzole (TAPAZOLE) 5 mg tablet Take TWO 10 mg tablets and ONE 5 mg tablet for a total dose of 25 mg, daily. - methIMAzole (TAPAZOLE) 10 mg tablet Take TWO 10 mg tablets and ONE 5 mg tablet for a total dose of 25 mg, daily. - triamcinolone (KENALOG) 0.025 % cream Apply to affected area two times a day. - predniSONE (DELTASONE) 10 mg tablet Day #1 - 6 tablets PO then Day #2 - 5 tablets PO then Day #3 - 4 tablets PO then Day #4 - 3 tablets PO then Day #5 - 2 tablets PO then Day #6 - 1 tablet PO - ondansetron (ZOFRAN) 8 mg tablet Take one tablet by mouth on an empty stomach in the evening one hour prior to chemo. Then take one tablet 24 hours after chemo. May repeat dose every 8-12 hours if needed to prevent nausea - meclizine (ANTIVERT) 25 mg tab Take 1 tablet by mouth three times a day. - valACYclovir (VALTREX) 1 gram tablet Take 1,000 mg by mouth three times a day. - midazolam (NAYZILAM) 5 mg/spray (0.1 mL) nasal spray Use 1 [place] in the nose as needed for up to 10 days. May repeat dose in alternate nostril after 10 minutes based on response and tolerability. - sennosides (SENNA ORAL) Take by mouth. - DIETARY SUPPLEMENT,MISC COMB14 ORAL Take by mouth. Biomega 1000mg containing vitamin E and pure anchovy - medical supply, miscellaneous (MISCELLANEOUS MEDICAL SUPPLY MISC) Neurotrophin - acetaminophen (TYLENOL) 325 mg tablet 2 tablets by ORAL/FEEDING TUBE route every 4 hours as needed for pain. - pantoprazole DR (PROTONIX) 20 mg tablet Take 1 tablet by mouth DAILY (6 AM). Problem List As Of Date 09/08/2024 Noted Resolved Chest pain [R07.9] 04/25/2010 05/26/2024 Brain mass [G93.89] 03/17/2023 11/17/2023 Obesity, Class I, BMI 30-34.9 [E66.811] 03/17/2023 Brain compression (HCC) [G93.5] 03/20/2023 S/P brain surgery [Z98.890] 03/20/2023 11/17/2023 At risk for seizures [Z91.89] 03/20/2023 Cerebral edema (HCC) [G93.6] 03/20/2023 GBM (glioblastoma multiforme) (HCC) [C71.9] 04/07/2023 Syncope, unspecified syncope type [R55] 11/01/2023 11/03/2023 Examination of participant in clinical trial [Z*11/05/2023 11/17/2023 Forehead pain [R51.9] 11/05/2023 PONV (postoperative nausea and vomiting) [R11.2*05/26/2024 Acute post-operative pain [G89.18] 05/29/2024 Disposition: Return in about 2 months (around 11/06/2024). Follow-up and Disposition History for Encounter Date Provider Department Center 09/08/2024 [id number] [facility] Encounter Status:Closed by JOSE EVANS on 09/08/24 T3FREE SERPL-MCNC Collected: 09/08/2024 9:32 AM Stat us: F Source: [facility] Order Comment: Specimen Type : BLOOD SPECIMEN Ordering Facility: [facility] Address: [address] [place] [address] TYPE CODE TESTS RESULT OUT OF RANGE REFERENCE UNITS LAB 3051-0(LOINC) T3Free SerPl-mCnc 2.4 2.3-4.1 pg/mL Performed By: #### 3051-0, 3 024-7, 3053-6, 3026-2 #### [facility] CLIA [id number] [address] [place] [address] [place] T4 FREE SERPL-MCNC Collected: 09/08/2024 9:32 AM Sta tus: F Source: [facility] Comment: Specimen Type : BLOOD SPECIMEN Ordering Facility: [facility] Address: [address] [place] [address] TYPE CODE TESTS RESULT OUT OF RANGE REFERENCE UNITS LAB 3024-7(LOINC) T4 Free SerPl-mCnc 1.0 0.9-1.7 ng/dL Performed By: #### 3051-0, 3 024-7, 3053-6, 3026-2 #### [facility] CLIA [id number] [address] [place] [address] [place] T3 SERPL-MCNC Collected: 09/08/2024 9:32 AM Status: F Source: [facility] Order Comment: Specimen Type : BLOOD SPECIMEN Ordering Facility: [facility] Address: [address] [place] [address] TYPE CODE TESTS RESULT OUT OF RANGE REFERENCE UNITS LAB 3053-6(LOINC) T3 SerPl-mCnc 90 79-165 ng/d L Performed By: #### 3051-0, 3 024-7, 3053-6, 3026-2 #### [facility] CLIA [id number] [address] [place] [address] [place] T4 SERPL-MCNC Collected: 09/08/2024 9:32 AM Status: F Source: [facility] Order Comment: Specimen Type : BLOOD SPECIMEN Ordering Facility: [facility] Address: [address] [place] [address] TYPE CODE TESTS RESULT OUT OF RANGE REFERENCE UNITS LAB 3026-2(LOINC) T4 SerPl-mCnc 6.7 5.5-10.2 ug/ dL Performed By: #### 3051-0, 3 024-7, 3053-6, 3026-2 #### [facility] CLIA [id number] [address] [place] [address] [place] TSH SERPL-ACNC Collected: 9:32 AM Status: F Source: [facility] Order Comment: Specimen Type : BLOOD SPECIMEN Ordering Facility: [facility] Address: [address] [place] [address] TYPE CODE TESTS RESULT OUT OF RANGE REFERENCE UNITS LAB 3016-3(LOINC) TSH SerPl-aCnc 3.090 0.270-4.200 mIU/L Performed By: #### 3016-3 ## ## [facility] CLIA [id number] [address] [place] [address] [place] COMP METAB 2000 PNL SERPL Collected: 9:32 AM Status: F Source: [facility] Order Comment: Specimen Type : BLOOD SPECIMEN Ordering Facility: [facility] Address: [address] [place] [address] TYPE CODE TESTS RESULT OUT OF RANGE REFERENCE UNITS LAB 2885-2(LOINC) Prot SerPl-mCnc 6.9 6.3-8.0 g/dL LAB 1751-7(LOINC) Albumin SerPl-mCnc 3.8 Low 3.9-4.9 g/dL LAB 99882-3(LOINC) Calcium SerPl-mCnc 8.9 8.5-10.2 mg/dL LAB 1975-2(LOINC) Bilirub SerPl-mCnc 0.6 0.2-1.3 mg/dL LAB 6768-6(LOINC) ALP SerPl-cCnc 121 High 38-113 U/L LAB 1920-8(LOINC) AST SerPl-cCnc 11 Low 14-40 U/L LAB 1742-6(LOINC) ALT SerPl-cCnc 9 Low 10-54 U/L LAB 2345-7(LOINC) Glucose SerPl-mCnc 110 High 74-99 mg/dL Result Comment: The [place] [employer] (ADA) provides guidance for cutoff values for fasting glucose and random glucose. The ADA defines fasting as no caloric intake for at least 8 hours. Fasting plasma glucose results between 100 to 125 mg/dL indicate increased risk for diabetes (prediabetes). Fasting plasma glucose results greater than or equal to 126 mg/dL meet the criteria for diagnosis of diabetes. In the absence of unequivocal hyperglycemia, results should be confirmed by repeat testing. In a patient with classic symptoms of hyperglycemia or hyperglycemic crisis, random plasma glucose results greater than or equal to 200 mg/dL meet the criteria for diagnosis of diabetes. Reference: Standards of Medical Care in Diabetes 2016, [place] [employer]. Diabetes Care. 2016.39(Suppl 1). LAB 3094-0(LOINC) BUN SerPl-mCnc 10 9-24 mg/ dL LAB 2160-0(LOINC) Creat SerPl-mCnc 1.21 0.73-1.22 mg/dL LAB 2951-2(LOINC) Sodium SerPl-sCnc 137 136-144 mmol/L LAB 2823-3(LOINC) Potassium SerPl-sCnc 4.2 3.7-5.1 mmol/L LAB 2075-0(LOINC) Chloride SerPl-sCnc 104 98-107 mmol/L LAB 2028-9(LOINC) CO2 SerPl-sCnc 25 22-30 mmo l/L LAB 17367-1(LOINC) Anion Gap SerPl-sCnc 8 8-15 mmol/L LAB 56293-4(LOINC) Creatinine + eGFR Pnl SerPlBld 71 >=60 mL/min/1 .73m??? Result Comment: Estimated Gl omerular Filtration Rate (eGFR) is calculated using the 2020 CKD-EPI creatinine equation. This equation utilizes serum creatinine, sex, and age as parameters. The creatinine assay has traceable calibration to isotope dilution-mass spectrometry. Refer to [facility] guidelines for clinical interpretation. In patients with unstable renal function, e.g. those with acute kidney injury, the eGFR may not accurately reflect actual GFR. Performed By: #### [id number] # ### [facility] CLIA [id number] [address] [place] [address] STATES OF [facility] CBC W AUTO DIFF BLD Collected: 09/08/2024 9:[address] atus: F Source: [facility] Order Comment: Specimen Type : BLOOD SPECIMEN Ordering Facility: [facility] Address: [address] [place] [address] TYPE CODE TESTS RESULT OUT OF RANGE REFERENCE UNITS LAB 6690-2(LOINC) WBC # Bld Auto 5.38 3.70-11.00 k/uL LAB 789-8(LOINC) RBC # Bld Auto 4.18 Low 4.20-6.00 m/ uL LAB 718-7(LOINC) Hgb Bld-mCnc 13.6 13.0-17.0 g/dL LAB 4544-3(LOINC) Hct VFr Bld Auto 38.4 Low 39.0-51.0 % LAB 787-2(LOINC) MCV RBC Auto 91.9 80.0-100.0 fL LAB 785-6(LOINC) MCH RBC Qn Auto 32.5 26.0-34.0 p g LAB 786-4(LOINC) MCHC RBC Auto-mCnc 35.4 30.5-36.0 g/dL LAB 82776-7(LOINC) RDW RBC-Rto 14.6 11.5-15.0 % LAB 777-3(LOINC) Platelet # Bld Auto 254 150-400 k/uL LAB 13651-8(LOINC) PMV Bld Auto 8.3 Low 9.0-12.7 fL LAB 770-8(LOINC) Neutrophils/leuk NFr Bld Auto 74.7 % LAB 751-8(LOINC) Neutrophils # Bld Auto 4.02 1.45-7.50 k/uL LAB 736-9(LOINC) Lymphocytes/leuk NFr Bld Auto 12.3 % LAB 731-0(LOINC) Lymphocytes # Bld Auto 0.66 Low 1.00-4.00 k/uL LAB 5905-5(LOINC) Monocytes/leuk NFr Bld Auto 10.2 % LAB 742-7(LOINC) Monocytes # Bld Auto 0.55 <0.87 k/uL LAB 713-8(LOINC) Eosinophil/leuk NFr Bld Auto 1.7 % LAB 711-2(LOINC) Eosinophil # Bld Auto 0.09 <0.46 k/uL LAB 706-2(LOINC) Basophils/leuk NFr Bld Auto 0.9 % LAB 704-7(LOINC) Basophils # Bld Auto 0.05 <0.11 k/uL LAB 71925-6(LOINC) Imm Granulocytes/christina k NFr Bld Auto 0.2 % LAB 57178-9(LOINC) Imm Granulocytes # Bld Auto <0.03 <0.10 k/uL LAB 66476-2(LOINC) nRBC/100 WBC Bld-Rto 0.0 /100 WBC LAB 771-6(LOINC) nRBC # Bld Auto <0.01 <0.01 k/u L LAB 07540-0(LOINC) Differential method Bld Auto Performed By: #### [id number] # ### [facility] CLIA [id number] [address] [place] [address] [place] CNN[place] Observed: 09/08/2024 12:00 AM Status: COMPLETED Source: [facility] Nurse Visit (NSCAMN) ANGEL KEATING ([id number]) 1970 M Date Time Provider Department 09/08/24 NADEEN BECKETT [facility] During your visit today, we recorded the following information about you: Nadeen Beckett RN 09/12/2024 1:41 PM Addendum IRB#: [id number] Case [id number] - Targeting Transsulfuration via Suppression of Thyroid Hormone Signaling in Progressive Glioblastoma; Modified Phase 1/2 and Pharmacodynamic Trial of Methimazole in Patients with Progressive WHO Grade 4 Glioblastoma END OF TREATMENT PATIENT NAME: Angel Keating : 1970 Patient verified by name and : YES Patient study ID: [id number] Primary MD: Dr. Enriquez Study start date: 05/24/2024 (start of Pre-Op Methimazole) Denies numbness, weakness, gait imbalance, seizures, headaches, or visual disturbances. Denies SOB, no edema, no falls. HANDP, neuro exam: Dr. Enriquez Was physical and neuro exam completed by a resident or fellow?: NO Change in KPS: NO; Patient's KPS: 90: Able to carry on normal activity; minor signs or symptoms of disease Steroid dose: none Changes in medication regimen: No Any new thyroid medications added to regimen: No Hypothyroidism symptoms may include: Tiredness. More sensitivity to cold. Constipation. Dry skin. Weight gain. Puffy face. Hoarse voice. Coarse hair and skin. Muscle weakness. Muscle aches, tenderness and stiffness. Menstrual cycles that are heavier than usual or irregular. Thinning hair. Slowed heart rate, also called bradycardia. Depression. Memory problems. Does patient have any signs or symptoms of hypothyroidism: No Hyperthyroidism sometimes looks like other health problems: Losing weight without trying. Fast heartbeat, a condition called tachycardia. Irregular heartbeat, also called arrhythmia. Pounding of the heart, sometimes called heart palpitations. Increased hunger. Nervousness, anxiety and irritability. Tremor, usually a small trembling in the hands and fingers. Sweating. Changes in menstrual cycles. Increased sensitivity to heat. Changes in bowel patterns, especially more-frequent bowel movements. Enlarged thyroid gland, sometimes called a goiter, which may appear as a swelling at the base of the neck. Tiredness. Muscle weakness. Sleep problems. Warm, moist skin. Thinning skin. Fine, brittle hair. Does patient have any signs or symptoms of hyperthyroidism: No Vitals in clinic: 09/08/2024 10:09 AM ONCOLOGY VITALS (ALL DEPTS) Temp 36.7 ?C (98 ?F) Pulse 70 Resp 18 SYSTOLIC 139 DIASTOLIC 89 SpO2 98 % WEIGHT (lb) 221 lb 1.9 oz WEIGHT (kg) 100.3 kg BSA (Mosteller Formula) 2.22 m2 BMI 32.12 kg/m2 Weight obtained: YES Labs: Latest Ref Rng 09/08/2024 WBC 3.70 - 11.00 k/uL 5.38 RBC 4.20 - 6.00 m/uL 4.18 (L) Hemoglobin 13.0 - 17.0 g/dL 13.6 Hematocrit 39.0 - 51.0 % 38.4 (L) MCV 80.0 - 100.0 fL 91.9 MCH 26.0 - 34.0 pg 32.5 MCHC 30.5 - 36.0 g/dL 35.4 RDW-CV 11.5 - 15.0 % 14.6 Platelet Count 150 - 400 k/uL 254 MPV 9.0 - 12.7 fL 8.3 (L) Neut% % 74.7 Abs Neut (ANC) 1.45 - 7.50 k/uL 4.02 Lymph% % 12.3 Abs Lymph 1.00 - 4.00 k/uL 0.66 (L) Branch% % 10.2 Abs Branch <0.87 k/uL 0.55 Eosin% % 1.7 Abs Eosin <0.46 k/uL 0.09 Baso% % 0.9 Abs Baso <0.11 k/uL 0.05 Immature Gran % % 0.2 IMMATURE GRANS (ABS) <0.10 k/uL <0.03 NRBC /100 WBC 0.0 Absolute nRBC <0.01 k/uL <0.01 DTYPE Auto Protein, Total 6.3 - 8.0 g/dL 6.9 Albumin 3.9 - 4.9 g/dL 3.8 (L) Calcium 8.5 - 10.2 mg/dL 8.9 Bilirubin, Total 0.2 - 1.3 mg/dL 0.6 Alkaline Phosphatase 38 - 113 U/L 121 (H) AST 14 - 40 U/L 11 (L) ALT 10 - 54 U/L 9 (L) Glucose 74 - 99 mg/dL 110 (H) BUN 9 - 24 mg/dL 10 Creatinine 0.73 - 1.22 mg/dL 1.21 Sodium 136 - 144 mmol/L 137 Potassium 3.7 - 5.1 mmol/L 4.2 Chloride 98 - 107 mmol/L 104 CO2 22 - 30 mmol/L 25 Anion Gap 8 - 15 mmol/L 8 eGFR >=60 mL/min/1.73m? 71 Free T4 0.9 - 1.7 ng/dL 1.0 T4 5.5 - 10.2 ug/dL 6.7 Free T3 2.3 - 4.1 pg/mL 2.4 T3 79 - 165 ng/dL 90 TSH 0.270 - 4.200 mIU/L 3.090 Legend: (L) Low (H) High Treatment plan: Completed treatments: Pre-Op Methimazole (Dose Level 2; 25 mg daily): 05/24/2024 to 06/15/2024 (including DAY of surgery) Surgical Resection by Dr. Evans: 05/27/2024 Post-Op Methimazole (Dose Level 2; 25 mg daily): 05/27/2024 (POD1) to 06/15/2024 Cycle 1 Methimazole (Dose Level 2; 25 mg daily): 06/16 to 07/13 Cycle 1 Lomustine 06/28/2024 (200 mg 1Q42D): Cycle 2 Methimazole (Dose Level 2; 25 mg daily): 07/14 to 08/10/2024 Cycle 3 Methimazole (Dose Level 2; 25 mg daily): 08/12 to 08/30/2024 Cycle 3 Lomustine (200 mg 1Q42D): 09/07/2024 Patient returned twenty-two 10mg tablets and eleven 5mg tablets from previous cycle. Ongoing AE Grade Scale Assessment - CTCAE v.5: Neuro, other (thought process changes) - Grade 1 - Baseline; Probable to study disease. Symptom is: Controlled with no intervention; Approximately started: 03/16/2023 to present; Baseline at screening 04/09/2023 Seizures (at risk for) - Grade 1 - Baseline; Unrelated to historical disorder/disease; Probable to study disease. 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 Symptom is: Controlled with lifestyle changes; Approximately started: 05/12/2024 to present; Baseline at screening 05/12/2024; upgraded to grade 2 on 05/26/2024; Current status: Ongoing - worsening. Stable. Elevated Alkaline Phosphatase - Grade 3 - Probable to Methimazole, unlikely to Lomustine, Unlikely to study disease. Symptom is: Controlled; Start date: 07/14/2024; Action required for AE: NO; Intervention required: none; Current status/outcome: Ongoing - stable Rash (Diffused on Upper and Lower Extremities)- Grade 1 - Probable to Methimazole, Unlikely to Lomustine, Unlikely to study disease. Symptom is: Controlled; Start date: 07/25/2024; Action required for AE: NO; Intervention required: Patient instructed to visit his nearest Urgent Care for evaluation; Current status/outcome: Ongoing - stable Decreased RBC - Grade 1 - Unlikely to Methimazole, possible to LomustineUnlikely to study disease. Symptom is: Controlled; Start date: 07/14/2024; Action required for AE: NO; Intervention required: none; Current status/outcome: Ongoing - stable NEW AEs: Decreased AST - Grade 1 - unlikely to Methimazole, Unlikely to study disease. Symptom is: Controlled; Start date: 06/16/2024; Action required for AE: NO; Intervention required: none; Current status/outcome: Ongoing - stable. RESOLVED 07/14/2024. REINSTATED as Grade 1 on 09/08/2024 Decreased ALT - Grade 1 - unlikely to Methimazole, Unlikely to study disease. Symptom is: Controlled; Start date: 09/08/2024; Action required for AE: NO; Intervention required: none; Current status/outcome: Ongoing - stable RESOLVED AEs: Elevated AST - Grade 1 - Probable to Methimazole, unlikely to Lomustine, Unlikely to study disease. Symptom is: Controlled; Start date: 07/14/2024; Action required for AE: NO; Intervention required: none; Current status/outcome: Ongoing - stable. RESOLVED 08/12/2024 Elevated ALT - Grade 2 - Probable to Methimazole, unlikely to Lomustine, Unlikely to study disease. Symptom is: Controlled; Start date: 07/14/2024; Action required for AE: NO; Intervention required: none; Current status/outcome: Ongoing - stable. RESOLVED 08/12/2024 Hypocalcemia - Grade 1 - Possible to Methimazole, Unlikely to study disease. Symptom is: Controlled; Start date: 06/16/2024; Action required for AE: NO; Intervention required: none; Current status/outcome: Ongoing - stable. RESOLVED 07/14/2024 Hyponatremia - Grade 1 - unlikely to Methimazole, Unlikely to study disease. Symptom is: Controlled; Start date: 06/16/2024; Action required for AE: NO; Intervention required: none; Current status/outcome: Ongoing - stable. RESOLVED 07/14/2024 Discharged in apparent satisfactory condition. All questions answered. Patient agree to call with questions, concerns, change in symptoms. Patient agreed to call with any symptoms or side effects not mentioned. Patient agreed to plan. Patient has the contact information for treating physician, research staff and the 24-hour [employer] number ([phone] or ) for the Heme/Onc Fellow. Nadeen Beckett RN 09/08/2024 10:55 AM Chart routed to Dr. Enriquez (Primary): YES Allergies As of Date: 09/08/2024 (No Known Allergies) Date Reviewed: 09/08/2024 Reviewed by: Kenna Carballo OCCA - Fully Assessed Primary Visit Diagnosis:GBM (glioblastoma multiforme) (HCC) [C71.9] Prescriptions as of 09/12/2024 - modafinil (PROVIGIL) 100 mg tablet Take 1 tablet by mouth once daily for 42 days. - traZODone (DESYREL) 50 mg tablet Take 1 tablet by mouth daily at bedtime. - lacosamide (VIMPAT) 150 mg tab Take 1 tablet by mouth two times a day. - lomustine (GLEOSTINE) 100 mg capsule Take one 8mg Zofran on an empty stomach in the evening. Wait ONE hour. Take TWO 100mg capsule(s) Lomustine by mouth for a total dose of 200mg. Take one 8 mg Zofran twenty-four hours later. Take on Day 1 of each 42 day cycle. - methIMAzole (TAPAZOLE) 5 mg tablet Take TWO 10 mg tablets and ONE 5 mg tablet for a total dose of 25 mg, daily. - methIMAzole (TAPAZOLE) 10 mg tablet Take TWO 10 mg tablets and ONE 5 mg tablet for a total dose of 25 mg, daily. - predniSONE (DELTASONE) 10 mg tablet Day #1 - 6 tablets PO then Day #2 - 5 tablets PO then Day #3 - 4 tablets PO then Day #4 - 3 tablets PO then Day #5 - 2 tablets PO then Day #6 - 1 tablet PO - ondansetron (ZOFRAN) 8 mg tablet Take one tablet by mouth on an empty stomach in the evening one hour prior to chemo. Then take one tablet 24 hours after chemo. May repeat dose every 8-12 hours if needed to prevent nausea - meclizine (ANTIVERT) 25 mg tab Take 1 tablet by mouth three times a day. - valACYclovir (VALTREX) 1 gram tablet Take 1,000 mg by mouth three times a day. - midazolam (NAYZILAM) 5 mg/spray (0.1 mL) nasal spray Use 1 [place] in the nose as needed for up to 10 days. May repeat dose in alternate nostril after 10 minutes based on response and tolerability. - sennosides (SENNA ORAL) Take by mouth. - DIETARY SUPPLEMENT,MISC COMB14 ORAL Take by mouth. Biomega 1000mg containing vitamin E and pure anchovy - medical supply, miscellaneous (MISCELLANEOUS MEDICAL SUPPLY MISC) Neurotrophin - acetaminophen (TYLENOL) 325 mg tablet 2 tablets by ORAL/FEEDING TUBE route every 4 hours as needed for pain. - pantoprazole DR (PROTONIX) 20 mg tablet Take 1 tablet by mouth DAILY (6 AM). Problem List As Of Date 09/08/2024 Noted Resolved Chest pain [R07.9] 04/25/2010 05/26/2024 Brain mass [G93.89] 03/17/2023 11/17/2023 Obesity, Class I, BMI 30-34.9 [E66.811] 03/17/2023 Brain compression (HCC) [G93.5] 03/20/2023 S/P brain surgery [Z98.890] 03/20/2023 11/17/2023 At risk for seizures [Z91.89] 03/20/2023 Cerebral edema (HCC) [G93.6] 03/20/2023 GBM (glioblastoma multiforme) (HCC) [C71.9] 04/07/2023 Syncope, unspecified syncope type [R55] 11/01/2023 11/03/2023 Examination of participant in clinical trial [Z*11/05/2023 11/17/2023 Forehead pain [R51.9] 11/05/2023 PONV (postoperative nausea and vomiting) [R11.2*05/26/2024 Acute post-operative pain [G89.18] 05/29/2024 Encounter Status:Closed by NADEEN BECKETT on 09/08/24 TRINO Observed: 09/07/2024 12:00 AM Status: COMPLETED Source: [facility] ANGEL KEATING ([id number]) 1970 M Date Time Provider Department 09/07/24 HEIDI ARRIAZA [facility] During your visit today, we recorded the following information about you: Heidi Arriaza RN 09/07/2024 3:42 PM Signed I reached out to Dr. Keating to remind him of his upcoming appointment tomorrow with Dr. Evans. Dr. Keating is aware and will see us tomorrow. Allergies As of Date: 09/07/2024 (No Known Allergies) Date Reviewed: 09/05/2024 Reviewed by: Saima Gabriel LPN - Fully Assessed Reason for Visit: Appointment [186] Prescriptions as of 09/07/2024 - iv contrast (will be provided with radiology test) MRI Brain Inject, intravenously, once for 1 dose.No IV access, insert saline lock prior to beginning of sedation, infusion, injection of imaging exam.Discontinue saline lock post exam. If Pt. has a central line or IVAD, may access for administration according to line specific nursing protocol.Once exam is complete flush line and de-access according to line specific nursing protocol in the MR contrast administration guidelines link - modafinil (PROVIGIL) 100 mg tablet Take 1 tablet by mouth once daily for 42 days. - traZODone (DESYREL) 50 mg tablet Take 1 tablet by mouth daily at bedtime. - lacosamide (VIMPAT) 150 mg tab Take 1 tablet by mouth two times a day. - lomustine (GLEOSTINE) 100 mg capsule Take one 8mg Zofran on an empty stomach in the evening. Wait ONE hour. Take TWO 100mg capsule(s) Lomustine by mouth for a total dose of 200mg. Take one 8 mg Zofran twenty-four hours later. Take on Day 1 of each 42 day cycle. - methIMAzole (TAPAZOLE) 5 mg tablet Take TWO 10 mg tablets and ONE 5 mg tablet for a total dose of 25 mg, daily. - methIMAzole (TAPAZOLE) 10 mg tablet Take TWO 10 mg tablets and ONE 5 mg tablet for a total dose of 25 mg, daily. - triamcinolone (KENALOG) 0.025 % cream Apply to affected area two times a day. - predniSONE (DELTASONE) 10 mg tablet Day #1 - 6 tablets PO then Day #2 - 5 tablets PO then Day #3 - 4 tablets PO then Day #4 - 3 tablets PO then Day #5 - 2 tablets PO then Day #6 - 1 tablet PO - ondansetron (ZOFRAN) 8 mg tablet Take one tablet by mouth on an empty stomach in the evening one hour prior to chemo. Then take one tablet 24 hours after chemo. May repeat dose every 8-12 hours if needed to prevent nausea - meclizine (ANTIVERT) 25 mg tab Take 1 tablet by mouth three times a day. - valACYclovir (VALTREX) 1 gram tablet Take 1,000 mg by mouth three times a day. - midazolam (NAYZILAM) 5 mg/spray (0.1 mL) nasal spray Use 1 [place] in the nose as needed for up to 10 days. May repeat dose in alternate nostril after 10 minutes based on response and tolerability. - sennosides (SENNA ORAL) Take by mouth. - DIETARY SUPPLEMENT,MISC COMB14 ORAL Take by mouth. Biomega 1000mg containing vitamin E and pure anchovy - medical supply, miscellaneous (MISCELLANEOUS MEDICAL SUPPLY MIS) Neurotrophin - acetaminophen (TYLENOL) 325 mg tablet 2 tablets by ORAL/FEEDING TUBE route every 4 hours as needed for pain. - pantoprazole DR (PROTONIX) 20 mg tablet Take 1 tablet by mouth DAILY (6 AM). Problem List As Of Date 09/07/2024 Noted Resolved Chest pain [R07.9] 04/25/2010 05/26/2024 Brain mass [G93.89] 03/17/2023 11/17/2023 Obesity, Class I, BMI 30-34.9 [E66.811] 03/17/2023 Brain compression (HCC) [G93.5] 03/20/2023 S/P brain surgery [Z98.890] 03/20/2023 11/17/2023 At risk for seizures [Z91.89] 03/20/2023 Cerebral edema (HCC) [G93.6] 03/20/2023 GBM (glioblastoma multiforme) (HCC) [C71.9] 04/07/2023 Syncope, unspecified syncope type [R55] 11/01/2023 11/03/2023 Examination of participant in clinical trial [Z*11/05/2023 11/17/2023 Forehead pain [R51.9] 11/05/2023 PONV (postoperative nausea and vomiting) [R11.2*05/26/2024 Acute post-operative pain [G89.18] 05/29/2024 Encounter Status:Closed by HEIDI ARRIAZA on 09/07/24 CNPN Observed: 09/06/2024 12:00 AM Status: COMPLETED Source: [facility] Telephone ([facility]) ANGEL KEATING ([id number]) 1970 M Date Time Provider Department 09/06/24 PATRICIA ENRIQUEZ [facility] During your visit today, we recorded the following information about you: Tona Cobos RN 09/06/2024 11:24 AM Signed Scheduling Request - Established Patient Time Frame: October 10 Orders: MRI brain w/wo contrast and perfusion -lives by Ronald Provider: Dr Fraire Visit type: In person within 1-2 days of scan or same day as MRI if MC Diagnosis: glioblastoma Allergies As of Date: 09/06/2024 (No Known Allergies) Date Reviewed: 09/05/2024 Reviewed by: Saima Gabriel LPN - Fully Assessed Reason for Visit: JUANCARLOS October 10 [Other] Prescriptions as of 10/10/2024 - dexAMETHasone (DECADRON) 2 mg tablet Start the day after your Gamma Knife procedure:Take 4 mg (2 tablets) twice a day for 3 days then,Take 4 mg (2 tablets) once a day for 3 days then,Take 2 mg (1 tablet) once a day for 3 days then,Take 2 mg (1 tablet) every OTHER day for 3 days then Stop the Decadron Patient should start on 2024. - famotidine (PEPCID) 20 mg tablet Take 1 tablet by mouth two times a day. Patient should start on 2024. - modafinil (PROVIGIL) 100 mg tablet Take 1 tablet by mouth once daily for 42 days. - traZODone (DESYREL) 50 mg tablet Take 1 tablet by mouth daily at bedtime. - lacosamide (VIMPAT) 150 mg tab Take 1 tablet by mouth two times a day. - lomustine (GLEOSTINE) 100 mg capsule Take one 8mg Zofran on an empty stomach in the evening. Wait ONE hour. Take TWO 100mg capsule(s) Lomustine by mouth for a total dose of 200mg. Take one 8 mg Zofran twenty-four hours later. Take on Day 1 of each 42 day cycle. - methIMAzole (TAPAZOLE) 5 mg tablet Take TWO 10 mg tablets and ONE 5 mg tablet for a total dose of 25 mg, daily. - methIMAzole (TAPAZOLE) 10 mg tablet Take TWO 10 mg tablets and ONE 5 mg tablet for a total dose of 25 mg, daily. - ondansetron (ZOFRAN) 8 mg tablet Take one tablet by mouth on an empty stomach in the evening one hour prior to chemo. Then take one tablet 24 hours after chemo. May repeat dose every 8-12 hours if needed to prevent nausea - valACYclovir (VALTREX) 1 gram tablet Take 1,000 mg by mouth three times a day. - midazolam (NAYZILAM) 5 mg/spray (0.1 mL) nasal spray Use 1 [place] in the nose as needed for up to 10 days. May repeat dose in alternate nostril after 10 minutes based on response and tolerability. - sennosides (SENNA ORAL) Take by mouth. - DIETARY SUPPLEMENT,MISC COMB14 ORAL Take by mouth. Biomega 1000mg containing vitamin E and pure anchovy - medical supply, miscellaneous (MISCELLANEOUS MEDICAL SUPPLY MIS) Neurotrophin - acetaminophen (TYLENOL) 325 mg tablet 2 tablets by ORAL/FEEDING TUBE route every 4 hours as needed for pain. Problem List As Of Date 09/06/2024 Noted Resolved Chest pain [R07.9] 04/25/2010 05/26/2024 Brain mass [G93.89] 03/17/2023 11/17/2023 Obesity, Class I, BMI 30-34.9 [E66.811] 03/17/2023 Brain compression (HCC) [G93.5] 03/20/2023 S/P brain surgery [Z98.890] 03/20/2023 11/17/2023 At risk for seizures [Z91.89] 03/20/2023 Cerebral edema (HCC) [G93.6] 03/20/2023 GBM (glioblastoma multiforme) (HCC) [C71.9] 04/07/2023 Syncope, unspecified syncope type [R55] 11/01/2023 11/03/2023 Examination of participant in clinical trial [Z*11/05/2023 11/17/2023 Forehead pain [R51.9] 11/05/2023 PONV (postoperative nausea and vomiting) [R11.2*05/26/2024 Acute post-operative pain [G89.18] 05/29/2024 Encounter Status:Closed by TONA COBOS on 10/10/24 PROGRESS Observed: 09/05/2024 4:35 PM Status: COMPLETED Source: [facility] HNO ID: [id number] Author: TONA COBOS, RN Service: ? Author Type: Registered Nurse Type: Progress Notes Filed: 09/05/2024 16:44 Note Text: Labs drawn 08/29/24 and results reviewed by ok to proceed with cycle #2 Medication: Lomustine 90mg/m2 x BSA 2.12 = - Keep at 200mg per Dr Friare . Take 200 mg x 1 dose every 6 weeks. Cycle Duration: 09/05-10/17/24 Repeat labs due at the end of this cycle, approx 10/11/23 Cycle #3 should begin 10/18/24 PLT: 226 ANC: 3.39 Plan MRI in [address]. [address] Evans and Dr Marcano for possible GKS Tona Cobos, RN, BSN [employer]ing Supervisor [facility] PROGRESS Observed: 09/05/2024 12:44 PM Status: COMPLETED Source: [facility] HNO ID: [id number] Author: PATRICIA ENRIQUEZ MD Service: ? Author Type: Physician Type: Progress Notes Filed: 09/05/2024 22:13 Note Text: [facility] Follow up Clinic visit [facility] Team: -Jose Evans MD, Neurosurgery -SAV Rodriguez, Radiation Oncology -Patricia Enriquez MD, Neuro-Oncology DIAGNOSIS: MGMT unmethylated Glioblastoma. 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 He initially presented with anxiety-attack like episodes going back to January 2023 as well as a fall, without loss of consciousness but +trauma to head around 02/27/2023. On 03/16/2023, he presented to [facility] ED with word finding difficulty, report of one-time fever of 101 in February, anxiety, increased thirst and urination and was found to have a L temporal mass with midline subfalcine shift concerning for high grade glioma. He was afebrile with normal glucose level and electrolytes. He underwent gross total resection by Dr. Evans on 03/19/2023, revealing an MGMT unmethylated glioblastoma, WHO Grade 4. He was discharged on keppra 750mg BID and dexamethasone taper. He established care with Dr. Enriquez and given paroxysmal episodes of anxiety, he was concerned about temporal lobe epilepsy and advised lifelong AED to reduce seizure risk. The patient was exhibiting some fatigue and dullness, so a cross taper from keppra to vimpat, with goal of vimpat 150mg BID. The patient expressed interest in clinical trials and enrolled onto [facility]. He was randomized to the [id number] arm (cyclic peptide modulating tumor microenvironment). TREATMENT HISTORY Gross total resection [03/19/2023] [facility] Dr. Evans MGMT unmethylated Glioblastoma. L temporal [facility] AGILE, randomized to [id number] IV twice weekly arm + Standard concurrent chemotherapy and radiation (04/20- 05/29/2023) [facility] Dr. Joyce and Dr. Enriquez Adjuvant temozolomide PO D1-5 q 28 days C1 07/01/23, will start 07/03 150mg/m2 C2 07/27/23 C3 08/31/23 C4 09/21/23 C5 10/26/23 C6 11/23/23 C7 12/28/23 STOP ADJ TMZ as the clinical; trial calls for up to 6 cycles. For some reason the patient had an extra cycle of Adj TMZ. Adjuvant [id number] during Maintenance: Cycle 7 Week 1 - infusions on 12/14/2023 (D1) and 12/17/2023 (D4) Cycle 7 Week 2 - infusions on 12/21/2023 (D8) and 12/24/2023 (D11) Cycle 7 Week 3 - infusions on 12/28/2023 (D15) and 12/31/2023 (D18) Cycle 7 Week 4 - infusions on 01/05/2024 (D22) and 01/08/2024 (D25) Cycle 8 Week 5 - infusions on 01/11/2024 and 01/14/2024 02/08/2024: MRI shows progression 02/08/24 BTB Referrals to se Dr. Evans for possible surgery. If surgery offered, he can be enrolled in CASE 3322 clinical trial with methimazole + chemo. 02/18/24: Dr Evans recommended NO surgery. 02/26/24 Lomustine 90mg/m2 C#1 02/25-04/08/24 04/12/24 Tumor progression, increased CBV 04/14/2024 BTB Referrals to se Dr. Evans for possible surgery. The patient is also eligible, for CASE 3322 clinical trial with methimazole + chemo. 04/28/2024 Jose Evans MD since the patient, and recommended surgery. 04/28/2024 clinical trials team, saw the patient, the patient is eligible, for for CASE 3322 clinical trial with methimazole + chemo. Patient signed consent. Treatment plan: Pre-operative treatment Phase -Methimazole - Pre-Op period: 05/24/2024 to 05/27/2024 (last dose is DAY of surgery) -Dose level 2 (25 mg daily) Surgical resection 05/27/[address] 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 C1D1 (10-28 days after surgery) -Scheduled for 06/16/2024 (20 days post op) -Methimazole - Post-Op period: 05/27/2024- TBD -Dose level 2 (25 mg judy C1D1 lomustine 110 mg/m2 - 07/28/24 - NOTE DATE ENTERED IN ERROR - PATIENT DID NOT TAKE CHEMO ON 08/07/2024 C2D1 lomustine -- planned for 09/07/24 08/22/2024 Brain MR - new enhancing nodules. CORRECTED DATES OF CHEMO: C1D1 JUN 28, 2024 09/05/2024 NOTE: RE; DISCREPANCY ON LOMUSTINE CYCLE. The patient recalled that he had taken Lomustine cycle No 1 [after 2nd surgery (05/27/2024)] on ~mid June 2024 and that he was due for cycle No 2 for early August 2024 We reviewed the pharmacy records and indeed the patient took cycle No 1 of Lomustine on 06/28/25, and he was due for next cycle on ~Aug 12, 2024. Pharmacy note confirm that lomustine was delivered. Although per patient knowledge that he needed to start his chemo, cycle No 2 of lomustine on 1st week of Aug 2024 - however he did not started as he was instructed that the chemo was to start not until Sep 07, 2024. Hence the patient had not started his chemo. 09/05/2024: The patient brought lomustine capsules, cycle No 2, as he noted - issued on 08/05/2024 - which should have started on Aug 12, 2024. The reason for the discrepancy - likely entry data error of when he took cycle No 1 of lomustine - erroneously was entered as 07/28/2025. September 05, 2024 In person visit. The patient is accompanied by mother and daughter Today visit is to go over BTB recommendations Also to go visually verify that he pricila cycle Leatha 2 of lomustine (see above), which he brought with him. === Important events the patient would hope to attend: November 28 son's graduation Daughter graduates college December 10. Late Apr 29- wed youngest step daughter ==== Last Chemo: see above Current Steroids dose: N/A Current AED Dose: lacosamide (VIMPAT) 150 mg tab Take 1 tablet by mouth two times a day. 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 Evans; path = GBM ORTHOPEDICS SURGERY HX 1996 knee surgery SHX CRANIOTOMY Left 03/19/2023 Family History: FAMILY HISTORY Problem Relation Age of Onset Diabetes Father Coronary Artery Disease Father Stroke Father Breast Cancer Mother None Sister Anesthesia Problems No Family History Social History Tobacco Use Smoking status: Former Current packs/day: 1.00 Average packs/day: 1 pack/day for 4.0 years (4.0 ttl pk-yrs) Types: Cigarettes Smokeless tobacco: Never Vaping Use Vaping status: Never Used Substance Use Topics Alcohol use: Not Currently Comment: three beers a month - per pt [id number] Drug use: Never Allergies: Patient has no known allergies. Current Outpatient Medications Medication Sig lacosamide (VIMPAT) 150 mg tab Take 1 tablet by mouth two times a day. iv contrast (will be provided with radiology test) MRI Brain Inject, intravenously, once for 1 dose.No IV access, insert saline lock prior to beginning of sedation, infusion, injection of imaging exam.Discontinue saline lock post exam. If Pt. has a central line or IVAD, may access for administration according to line specific nursing protocol.Once exam is complete flush line and de-access according to line specific nursing protocol in the MR contrast administration guidelines link iv contrast (will be provided with radiology test) MRI Brain Inject, intravenously, once for 1 dose.No IV access, insert saline lock prior to beginning of sedation, infusion, injection of imaging exam.Discontinue saline lock post exam. If Pt. has a central line or IVAD, may access for administration according to line specific nursing protocol.Once exam is complete flush line and de-access according to line specific nursing protocol in the MR contrast administration guidelines link meclizine (ANTIVERT) 25 mg tab Take 1 tablet by mouth three times a day. valACYclovir (VALTREX) 1 gram tablet Take 1,000 mg by mouth three times a day. ondansetron (ZOFRAN) 8 mg tablet Take one hour prior to temozolomide prescription then every 8 hours as needed for nausea. temozolomide (TEMODAR) 180 mg capsule Fast for one hour after taking Zofran and then take ONE 180 mg capsule, plus ONE 140 mg and TWO 5 mg capsules to total 330 mg. Then, fast for one hour after taking. Take on days 1-5 of your 28 day cycle. Temozolomide 140 mg capsule Fast for one hour after taking Zofran and then take ONE 180 mg capsule, plus ONE 140 mg and TWO 5 mg capsules to total 330 mg. Then, fast for one hour after taking. Take on days 1-5 of your 28 day cycle. temozolomide (TEMODAR) 5 mg capsule Fast for one hour after taking Zofran and then take ONE 180 mg capsule, plus ONE 140 mg and TWO 5 mg capsules to total 330 mg. Then, fast for one hour after taking. Take on days 1-5 of your 28 day cycle. ondansetron (ZOFRAN) 8 mg tablet Take 1 tablet (8 mg) by mouth one hour before taking temozolomide dosing. Take on an empty stomach (Patient taking differently: Take 1 tablet (8 mg) by mouth one hour before taking temozolomide dosing. Take on an empty stomach) sennosides (SENNA ORAL) Take by mouth. DIETARY SUPPLEMENT,MISC COMB14 ORAL Take by mouth. Biomega 1000mg containing vitamin E and pure anchovy medical supply, miscellaneous (MISCELLANEOUS MEDICAL SUPPLY MISC) Neurotrophin acetaminophen (TYLENOL) 325 mg tablet 2 tablets by ORAL/FEEDING TUBE route every 4 hours as needed for pain. pantoprazole DR (PROTONIX) 20 mg tablet Take 1 tablet by mouth DAILY (6 AM). midazolam (NAYZILAM) 5 mg/spray (0.1 mL) nasal spray Use 1 [place] in the nose as needed for up to 10 days. May repeat dose in alternate nostril after 10 minutes based on response and tolerability. No current facility-administered medications for this visit. Review of systems: Constitutional: No recent fever or weight loss. Eyes: No history of glaucoma or cataracts. ENMT: No recent ear infection, nasal congestion, mouth sores or sore throat. CV: No history of chest pain, palpitations or leg swelling. Respiratory: No history of SOB, asthma or recent cough. Gastrointestinal: No history of nausea, vomiting, dysphagia or abdominal pain. Genitourinary: No history of hematuria or dysuria. Musculoskeletal: No complaint of arthritis, unstable gait or arm/leg weakness. Psychiatric: No history of hallucinations or depression or anxiety. ROS Neurological: No complaint of headache. No complaint of tinnitus. No complaint of decreased hearing. No complaint of diplopia. No complaints of decreased visual acuity. No complaint of arm/leg numbness. No problem with limb coordination. No complaint of syncope, seizures or disorientation. Objective Physical Exam: BP 129/90 Pulse 84 Temp 36.3 ?C (97.3 ?F) (Oral) Resp 16 Ht 176.7 cm (5' 9.57) Wt 100.3 kg (221 lb 1.9 oz) SpO2 98% BMI 32.12 kg/m? GENERAL EXAM: General appearance: Well appearing, alert, in no acute distress Skin: Skin color, texture, turgor normal Oropharynx: No thrush noted. Lungs: Lungs clear to auscultation. No wheezing, rhonchi, rales Heart: RRR without murmur, gallop, or rubs. No ectopy Abdomen: Normal abdominal exam, Abdomen soft, non-tender. Bowel sounds normal. Extremities: No deformities, skin discoloration, clubbing or cyanosis. Good capillary refill, no edema to BLE. Harmony's sign negative. No pain to palpation. NEUROLOGICAL EXAM: Higher integrative functions: Oriented to person, place AND time. Attention Span and Concentration: Good. Language: Accurate naming of objects. Good comprehension. Fund of Knowledge: Good. 2nd CN: Full visual land. 3rd,4th,6th CN: Pupils equal, round, react to light, full extraocular movements. 5th CN: No decrease in facial sensation 7th CN: Facial muscles symmetric and strong. 8th CN: Hears finger rub well bilaterally. 9th CN: Gag reflex not tested 10th CN: Spontaneous palate movement, full and symmetric. 11th CN: Full strength in shoulder shrug. 12th CN: Tongue protrusion full and midline. Sensation: No decrease in sensation in upper or lower limbs to touch. Musculoskeletal: Gait steady. Tandem walk normal. Romberg negative. Motor: 5/5 RUE/RLE; 5/5 LUE/LLENormal muscle tone without atrophy in all limbs. Coordination: Rapid alternating movements LUE intact; RUE intact Reflexes: 1-2+ ALL limbs. Plantar response down going. Karnofsky performance status: 80 - Normal activity with effort, some signs or symptoms of disease. ECOG performance status: 1 - Restricted in physically strenuous activity but ambulatory and able to carry out work of a light or sedentary nature, e.g., light house work or office work. 05/18/2023 PHQ 2 and 9 Total Scores PHQ-2 Score 1 PHQ-9 Score 8 Labs: Latest Ref Rng AND Units 07/14/2024 08/12/2024 08/29/2024 CBC WBC 3.70 - 11.00 k/uL 4.83 4.93 5.20 RBC 4.20 - 6.00 m/uL 4.17 4.13 4.35 Hemoglobin 13.0 - 17.0 g/dL 13.6 13.4 14.2 Hematocrit 39.0 - 51.0 % 38.6 38.0 40.5 MCV 80.0 - 100.0 fL 92.6 92.0 93.1 MCH 26.0 - 34.0 pg 32.6 32.4 32.6 MCHC 30.5 - 36.0 g/dL 35.2 35.3 35.1 RDW-CV 11.5 - 15.0 % 14.7 15.9 15.5 Platelet Count 150 - 400 k/uL 220 164 226 MPV 9.0 - 12.7 fL 8.4 8.6 8.2 Baso% % 1.4 0.2 0.8 Abs Neut (ANC) 1.45 - 7.50 k/uL 3.01 3.83 3.39 Abs Lymph 1.00 - 4.00 k/uL 0.55 0.62 1.06 Abs Branch <0.87 k/uL 0.77 0.42 0.57 Abs Eosin <0.46 k/uL 0.40 0.03 0.11 Abs Baso <0.11 k/uL 0.07 <0.03 0.04 NRBC /100 WBC 0.0 0.0 0.0 Latest Ref Rng AND Units 06/16/2024 07/14/2024 08/12/2024 CMP Sodium 136 - 144 mmol/L 135 141 137 Potassium 3.7 - 5.1 mmol/L 4.0 4.0 4.2 Chloride 98 - 107 mmol/L 104 105 104 CO2 22 - 30 mmol/L 21 27 23 Glucose 74 - 99 mg/dL 97 105 112 BUN 9 - 24 mg/dL 23 7 15 Creatinine 0.73 - 1.22 mg/dL 1.05 0.88 1.02 EGFR >=60 mL/min/1.73m? 84 102 87 Protein, Total 6.3 - 8.0 g/dL 5.9 6.5 6.8 Albumin 3.9 - 4.9 g/dL 3.4 3.9 3.8 Calcium 8.5 - 10.2 mg/dL 8.2 9.1 9.2 Bilirubin, Total 0.2 - 1.3 mg/dL 0.6 0.5 0.3 AST 14 - 40 U/L 11 80 14 ALT 10 - 54 U/L 21 218 29 Alkaline Phosphatase 38 - 113 U/L 64 613 171 Final Pathology: SURGICAL PATHOLOGY: [id number] Order: [id number] Collected 03/19/2023 10:24 AM Status: Edited Result - FINAL Visible to patient: Yes (not seen) Dx: Brain tumor (HCC) 0 Result Notes Component FINAL DIAGNOSIS A, B. Brain, left temporal mass, biopsy and resection: - Morphologically consistent with high grade glioma. See comment. Diagnosis Comment CARLOS stained sections reveal a hypercellular infiltrating glioma with moderate to marked nuclear pleomorphism and increased mitoses (upto 4 per 10 high per field). Pseudopalisading necrosis and microvascular proliferation are identified. Immunohistochemical stains are performed at [facility] to better classify this lesion (block B1) and show the following in neoplastic cells: IDH1 R132H: neagtive (wildtype); ATRX: retained (wildtype); BRAF V600E: negative (wildtype); p53 strong nuclear positivity in up to 40%; Ki67 proliferative index up to 25%. Addendum This addendum is rendered to report the results of the following molecular studies: Targeted Oncology Panel: The oncogenic TERT promoter alteration, c.-124C>T (also known as C228T) was detected in this specimen; MGMT promoter methylation: not hypermethylated. 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 Addendum electronically signed by Krista Snow MD on 04/03/2023 at 9:13 AM Imaging: Results MRI BRAIN WO/W IVCON (Acc#[id number]) (Order [id number]) Patient Info Patient Name Sex BARRETT Angel Keating ([id number]) Male 1970 08/22/2024 2:02 PM - Radiology, Oru In Impression IMPRESSION: Slight further increase in size of enhancing nodule in the left mesial temporal lobe with surrounding FLAIR hyperintensity. Increasing enlargement is suspicious of neoplastic progression but continued follow-up is recommended. Continued increased size of extra-axial enhancing foci along the falx and over the left frontal convexity at the vertex. No new pathologic enhancement otherwise. New chronic appearing subdural hemorrhage measuring 11 mm in maximal thickness overlying the left parietal convexity with approximately 2 mm rightward midline shift. Redistribution of cystic hygroma, now measuring up to 4 mm in maximal thickness and predominantly along the left frontoparietal falx. 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 I reviewed the images with the patient and family. 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 08/22/24 MRI progressive disease 08/29/2024 BTB recommend continue on lomustine, and SRS to enhancing nodules. ISSUES: 1- GBM-MGMT promoter not hyper methylated. 08/22/24 MRI progressive disease -Off clinical trial: CASE 3322 clinical trial with methimazole + chemo. -Cycle No 2 of Lomustine 110 mg/M2 , dose capped 200 mg day cycle, per protocol. -Start date: 09/05/2024 -TO SEE DR. WILCOX AND DR. JOYCE FOR CONSIDERATION FOR SRS TO NEW ENHANCING NODULES. 5-ahbfgezecomv-gzvgucb nausea: -Use Zofran, prior/after chemo and as needed 3-Imaging surveillance: -Brain w and w/o contrast and perfusion - in 6 week's time. 2A-Clinic visits: -In person visit in 6 weeks time. 3-Bone marrow suppression from chemotherapy: periodic CBC, every 6 weeks Also, CMP every 6 weeks. Other blood test, per clinical trial 4- Seizures: Since I saw him last, he has not had any events to suggest seizures (02/19/2024). -On lacosamide (Vimpat): Started on 04/05/23. Dose is 150 mg twice a day. -Lacosamide blood levels, Latest Reference Range AND Units 07/14/24 09:38 Lacosamide 2.2 - 19.8 ug/mL 10.6 Based on the above levels to continue on the same dose. 5-Seizure precautions: The patient is not to drive any motorized vehicle, and not to engage in activities that could place her or others in danger if she were to have a seizure. I also discussed the use of rescue medication for breakthrough seizures, using midazolam nasal spray (NS) to use it as needed (PRN) and discussed when to use it. I discussed the potential benefits and side effects, including tiredness, fatigue, and or sleepiness and if so, the patient is not to engage in activities that require to be fully alert. I have also provided written information for the patient's review. 6-He is to follow by her PCP for general medical care/coordination of care. 7-NOT ON STEROIDS 8-To see PCP for to define appropriate vaccinations above. 9-Potential for thromboembolism: to watch for potential DVT/Pulmonary Embolism, and if so to go to the ED/call 911. 10-End of life issues: Adv Dir in chart. -Patient discussed, this important aspect, of his diagnosis, that is, that he acknowledges, that this condition will end his life, at young age, and relatively soon and that he has goals, for the next year or so, that is, to attend, important milestones events of his children's, which will take place, in the next year or so. Currently,02/19/24 his children's are 20 and 21 years old. He has seen Dr. Lion, from palliative medicine will also give advice regarding This. 11-psychosocial issues: Patient asked, advised on how to approach, his current diagnosis and progressive disease, with his children who are 2020. We given some advice, how it could be helpful for his children to cope with his unfortunate condition. However, we recommended for him to seek attention from psychosocial oncology, and this Could be expanded to the family. He has seen Dr. Daniel Juárez from psychology and psychiatry, as well [facility] Jaclyn Guillory. 12-Hygroma on surgical site: MRI 08/22/2024 New chronic appearing subdural hemorrhage measuring 11 mm in maximal thickness overlying the left parietal convexity with approximately 2 mm rightward midline shift. Redistribution of cystic hygroma, now measuring up to 4 mm in maximal thickness and predominantly along the left frontoparietal falx. 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 To see Dr. Wilcox/surgical team to address this. Also clinically there is bulging of craniotomy site. not symptomatic. 13-Fatigue after chemo - start Provigil for fatigue, improve alertness - wakefulness. I discussed potential benefits and side effects. I am seeing the patient in collaboration with Tona Cobos RN [facility] Banking Supervisor PLAN: -Off clinical trial: CASE 3322 clinical trial with methimazole + chemo. -Cycle No 2 of Lomustine 110 mg/M2 , dose capped 200 mg day cycle, per protocol. -Start date: 09/05/2024 -TO SEE DR. WILCOX AND DR. JOYCE FOR CONSIDERATION FOR SRS TO NEW ENHANCING NODULES. -Brain w and w/o contrast and perfusion - in 6 week's time. -In person visit in 6 weeks time. Hygroma on surgical site: MRI 08/22/2024 New chronic appearing subdural hemorrhage measuring 11 mm in maximal thickness overlying the left parietal convexity with approximately 2 mm rightward midline shift. Redistribution of cystic hygroma, now measuring up to 4 mm in maximal thickness and predominantly along the left frontoparietal falx. 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 -Return visit 09/08/2024 - Clinical trials visit - with me/clinical trials RN. To see Dr. Wilcox/surgical team to address this. Also clinically there is bulging of craniotomy site. Not symptomatic. Hopefully can see on 09/08/2024 In the end the patient and family verbalized understanding of the above, they had questions which I believe I answered to their satisfaction and agreed with these recommendations and had no further questions or concerns for the moment, but I encourage them to call the [facility] with any questions or concerns. I spent a total of 40 minutes on the date of the service which included preparing to see the patient, at least 50% of [id number] patient care, completing clinical documentation, obtaining and/or reviewing separately obtained history, performing a medically appropriate examination, counseling and educating the patient/family/caregiver, ordering medications, tests, or procedures, communicating with other HCPs (not separately reported), independently interpreting results (not separately reported), communicating results to the patient/family/caregiver and care coordination (not separately reported). High MDM. Patricia Enriquez MD [facility] Patient Care Team: -Jose Evans MD, Neurosurgery, [facility], [facility], [facility] Cyndee Joyce MD, PhD, Radiation Oncology, [facility], [facility]. Jaclyn Guillory LSW as Pull Worker (Hematology/Oncology) Soraida Simmons RN (Hospice AND Palliative Medicine) Willy Lion MD (Hospice AND Palliative Medicine) Rupa Khoury APRN.EDSON (Hospice AND Palliative Medicine) Daniel Juárez PSYD, Psychology, [facility] PROGRESS Observed: 09/05/2024 12:35 PM Status: COMPLETED Source: [facility] HNO ID: [id number] Author: SAIMA GABRIEL LPN Service: ? Author Type: LICENSED NURSE Type: Progress Notes Filed: 09/05/2024 22:13 Note Text: Additional intake questions: Has the patient had fever, nausea, vomiting, diarrhea, constipation, fatigue for > 1 week? Yes, fatigue Does the patient have a decreased appetite? No Does patient want to see a Outside Solar Sales Consultant? No (yes to any of above refer patient to schedulers for dietitian appointment) ) Does patient have any new or increased numbness or tingling of extremities? No Is patient interested in fertility information? NA Does patient need any prescription refills? Yes, LIP notified Does patient have an advanced directive in place? Yes, copies are in Germin8 Electronically Signed By: Saima Gabriel LPN CNOV Observed: 09/05/2024 12:00 PM Status: COMPLETED Source: [facility] Office Visit ([facility]) ANGEL KEATING ([id number]) 1970 M Date Time Provider Department 09/05/24 12:00 PM PATRICIA ENRIQUEZ [facility] During your visit today, we recorded the following information about you: Temperature Pulse Respiration Blood pressure 97.3 degrees 84/minute 16/minute 129/90 Weight Height 100.3 kg 1.767 m Saima Gabriel LPN 09/05/2024 10:13 PM Signed Additional intake questions: Has the patient had fever, nausea, vomiting, diarrhea, constipation, fatigue for > 1 week? Yes, fatigue Does the patient have a decreased appetite? No Does patient want to see a Outside Solar Sales Consultant? No (yes to any of above refer patient to schedulers for dietitian appointment) ) Does patient have any new or increased numbness or tingling of extremities? No Is patient interested in fertility information? NA Does patient need any prescription refills? Yes, LIP notified Does patient have an advanced directive in place? Yes, copies are in Germin8 Electronically Signed By: LIZA Rubio Alejandro, MD 09/05/2024 10:13 PM Signed [facility] Follow up Clinic visit B BTC Team: -Jose Evans MD, Neurosurgery -SAV Rodriguez, Radiation Oncology -Patricia Enriquez MD, Neuro-Oncology DIAGNOSIS: MGMT unmethylated Glioblastoma. 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 He initially presented with anxiety-attack like episodes going back to January 2023 as well as a fall, without loss of consciousness but +trauma to head around 02/27/2023. On 03/16/2023, he presented to [facility] ED with word finding difficulty, report of one-time fever of 101 in February, anxiety, increased thirst and urination and was found to have a L temporal mass with midline subfalcine shift concerning for high grade glioma. He was afebrile with normal glucose level and electrolytes. He underwent gross total resection by Dr. Evans on 03/19/2023, revealing an MGMT unmethylated glioblastoma, WHO Grade 4. He was discharged on keppra 750mg BID and dexamethasone taper. He established care with Dr. Enriquez and given paroxysmal episodes of anxiety, he was concerned about temporal lobe epilepsy and advised lifelong AED to reduce seizure risk. The patient was exhibiting some fatigue and dullness, so a cross taper from keppra to vimpat, with goal of vimpat 150mg BID. The patient expressed interest in clinical trials and enrolled onto [facility]. He was randomized to the TB9302 arm (cyclic peptide modulating tumor microenvironment). TREATMENT HISTORY Gross total resection [03/19/2023] [facility] Dr. Evans MGMT unmethylated Glioblastoma. L temporal GCAR AGILE, randomized to [id number] IV twice weekly arm + Standard concurrent chemotherapy and radiation (04/20- 05/29/2023) [facility] Dr. Joyce and Dr. Enriquez Adjuvant temozolomide PO D1-5 q 28 days C1 07/01/23, will start 07/03 150mg/m2 C2 07/27/23 C3 08/31/23 C4 09/21/23 C5 10/26/23 C6 11/23/23 C7 12/28/23 STOP ADJ TMZ as the clinical; trial calls for up to 6 cycles. For some reason the patient had an extra cycle of Adj TMZ. Adjuvant [id number] during Maintenance: Cycle 7 Week 1 - infusions on 12/14/2023 (D1) and 12/17/2023 (D4) Cycle 7 Week 2 - infusions on 12/21/2023 (D8) and 12/24/2023 (D11) Cycle 7 Week 3 - infusions on 12/28/2023 (D15) and 12/31/2023 (D18) Cycle 7 Week 4 - infusions on 01/05/2024 (D22) and 01/08/2024 (D25) Cycle 8 Week 5 - infusions on 01/11/2024 and 01/14/2024 02/08/2024: MRI shows progression 02/08/24 BTB Referrals to se Dr. Evans for possible surgery. If surgery offered, he can be enrolled in CASE 3322 clinical trial with methimazole + chemo. 02/18/24: Dr Evans recommended NO surgery. 02/26/24 Lomustine 90mg/m2 C#1 02/25-04/08/24 04/12/24 Tumor progression, increased CBV 04/14/2024 BTB Referrals to se Dr. Evans for possible surgery. The patient is also eligible, for CASE 3322 clinical trial with methimazole + chemo. 04/28/2024 Jose Evans MD since the patient, and recommended surgery. 04/28/2024 clinical trials team, saw the patient, the patient is eligible, for for CASE 3322 clinical trial with methimazole + chemo. Patient signed consent. Treatment plan: Pre-operative treatment Phase -Methimazole - Pre-Op period: 05/24/2024 to 05/27/2024 (last dose is DAY of surgery) -Dose level 2 (25 mg daily) Surgical resection 05/27/[address] 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 C1D1 (10-28 days after surgery) -Scheduled for 06/16/2024 (20 days post op) -Methimazole - Post-Op period: 05/27/2024- TBD -Dose level 2 (25 mg judy C1D1 lomustine 110 mg/m2 - 07/28/24 - NOTE DATE ENTERED IN ERROR - PATIENT DID NOT TAKE CHEMO ON 08/07/2024 C2D1 lomustine -- planned for 09/07/24 08/22/2024 Brain MR - new enhancing nodules. CORRECTED DATES OF CHEMO: C1D1 JUN 28, 2024 09/05/2024 NOTE: RE; DISCREPANCY ON LOMUSTINE CYCLE. The patient recalled that he had taken Lomustine cycle No 1 [after 2nd surgery (05/27/2024)] on ~mid June 2024 and that he was due for cycle No 2 for early August 2024 We reviewed the pharmacy records and indeed the patient took cycle No 1 of Lomustine on 06/28/25, and he was due for next cycle on ~Aug 12, 2024. Pharmacy note confirm that lomustine was delivered. Although per patient knowledge that he needed to start his chemo, cycle No 2 of lomustine on 1st week of Aug 2024 - however he did not started as he was instructed that the chemo was to start not until Sep 07, 2024. Hence the patient had not started his chemo. 09/05/2024: The patient brought lomustine capsules, cycle No 2, as he noted - issued on 08/05/2024 - which should have started on Aug 12, 2024. The reason for the discrepancy - likely entry data error of when he took cycle No 1 of lomustine - erroneously was entered as 07/28/2025. September 05, 2024 In person visit. The patient is accompanied by mother and daughter Today visit is to go over BTB recommendations Also to go visually verify that he pricila cycle Leatha 2 of lomustine (see above), which he brought with him. - ==== Important events the patient would hope to attend: November 28 son's graduation Daughter graduates college December 10. Late Apr 29- youngest step daughter - ===== Last Chemo: see above Current Steroids dose: N/A Current AED Dose: lacosamide (VIMPAT) 150 mg tab Take 1 tablet by mouth two times a day. 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 Evans; path = GBM ORTHOPEDICS SURGERY HX 1996 knee surgery SHX CRANIOTOMY Left 03/19/2023 Family History: FAMILY HISTORY Problem Relation Age of Onset Diabetes Father Coronary Artery Disease Father Stroke Father Breast Cancer Mother None Sister Anesthesia Problems No Family History Social History Tobacco Use Smoking status: Former Current packs/day: 1.00 Average packs/day: 1 pack/day for 4.0 years (4.0 ttl pk-yrs) Types: Cigarettes Smokeless tobacco: Never Vaping Use Vaping status: Never Used Substance Use Topics Alcohol use: Not Currently Comment: three beers a month - per pt [id number] Drug use: Never Allergies: Patient has no known allergies. Current Outpatient Medications Medication Sig lacosamide (VIMPAT) 150 mg tab Take 1 tablet by mouth two times a day. iv contrast (will be provided with radiology test) MRI Brain Inject, intravenously, once for 1 dose.No IV access, insert saline lock prior to beginning of sedation, infusion, injection of imaging exam.Discontinue saline lock post exam. If Pt. has a central line or IVAD, may access for administration according to line specific nursing protocol.Once exam is complete flush line and de-access according to line specific nursing protocol in the MR contrast administration guidelines link iv contrast (will be provided with radiology test) MRI Brain Inject, intravenously, once for 1 dose.No IV access, insert saline lock prior to beginning of sedation, infusion, injection of imaging exam.Discontinue saline lock post exam. If Pt. has a central line or IVAD, may access for administration according to line specific nursing protocol.Once exam is complete flush line and de-access according to line specific nursing protocol in the MR contrast administration guidelines link meclizine (ANTIVERT) 25 mg tab Take 1 tablet by mouth three times a day. valACYclovir (VALTREX) 1 gram tablet Take 1,000 mg by mouth three times a day. ondansetron (ZOFRAN) 8 mg tablet Take one hour prior to temozolomide prescription then every 8 hours as needed for nausea. temozolomide (TEMODAR) 180 mg capsule Fast for one hour after taking Zofran and then take ONE 180 mg capsule, plus ONE 140 mg and TWO 5 mg capsules to total 330 mg. Then, fast for one hour after taking. Take on days 1-5 of your 28 day cycle. Temozolomide 140 mg capsule Fast for one hour after taking Zofran and then take ONE 180 mg capsule, plus ONE 140 mg and TWO 5 mg capsules to total 330 mg. Then, fast for one hour after taking. Take on days 1-5 of your 28 day cycle. temozolomide (TEMODAR) 5 mg capsule Fast for one hour after taking Zofran and then take ONE 180 mg capsule, plus ONE 140 mg and TWO 5 mg capsules to total 330 mg. Then, fast for one hour after taking. Take on days 1-5 of your 28 day cycle. ondansetron (ZOFRAN) 8 mg tablet Take 1 tablet (8 mg) by mouth one hour before taking temozolomide dosing. Take on an empty stomach (Patient taking differently: Take 1 tablet (8 mg) by mouth one hour before taking temozolomide dosing. Take on an empty stomach) sennosides (SENNA ORAL) Take by mouth. DIETARY SUPPLEMENT,[facility] COMB14 ORAL Take by mouth. Biomega 1000mg containing vitamin E and pure anchovy medical supply, miscellaneous (MISCELLANEOUS MEDICAL SUPPLY [facility]) Neurotrophin acetaminophen (TYLENOL) 325 mg tablet 2 tablets by ORAL/FEEDING TUBE route every 4 hours as needed for pain. pantoprazole DR (PROTONIX) 20 mg tablet Take 1 tablet by mouth DAILY (6 AM). midazolam (NAYZILAM) 5 mg/spray (0.1 mL) nasal spray Use 1 [place] in the nose as needed for up to 10 days. May repeat dose in alternate nostril after 10 minutes based on response and tolerability. No current facility-administered medications for this visit. Review of systems: Constitutional: No recent fever or weight loss. Eyes: No history of glaucoma or cataracts. ENMT: No recent ear infection, nasal congestion, mouth sores or sore throat. CV: No history of chest pain, palpitations or leg swelling. Respiratory: No history of SOB, asthma or recent cough. Gastrointestinal: No history of nausea, vomiting, dysphagia or abdominal pain. Genitourinary: No history of hematuria or dysuria. Musculoskeletal: No complaint of arthritis, unstable gait or arm/leg weakness. Psychiatric: No history of hallucinations or depression or anxiety. ROS Neurological: No complaint of headache. No complaint of tinnitus. No complaint of decreased hearing. No complaint of diplopia. No complaints of decreased visual acuity. No complaint of arm/leg numbness. No problem with limb coordination. No complaint of syncope, seizures or disorientation. Objective Physical Exam: BP 129/90 Pulse 84 Temp 36.3 ?C (97.3 ?F) (Oral) Resp 16 Ht 176.7 cm (5' 9.57) Wt 100.3 kg (221 lb 1.9 oz) SpO2 98% BMI 32.12 kg/m? GENERAL EXAM: General appearance: Well appearing, alert, in no acute distress Skin: Skin color, texture, turgor normal Oropharynx: No thrush noted. Lungs: Lungs clear to auscultation. No wheezing, rhonchi, rales Heart: RRR without murmur, gallop, or rubs. No ectopy Abdomen: Normal abdominal exam, Abdomen soft, non-tender. Bowel sounds normal. Extremities: No deformities, skin discoloration, clubbing or cyanosis. Good capillary refill, no edema to BLE. Harmony's sign negative. No pain to palpation. NEUROLOGICAL EXAM: Higher integrative functions: Oriented to person, place AND time. Attention Span and Concentration: Good. Language: Accurate naming of objects. Good comprehension. Fund of Knowledge: Good. 2nd CN: Full visual land. 3rd,4th,6th CN: Pupils equal, round, react to light, full extraocular movements. 5th CN: No decrease in facial sensation 7th CN: Facial muscles symmetric and strong. 8th CN: Hears finger rub well bilaterally. 9th CN: Gag reflex not tested 10th CN: Spontaneous palate movement, full and symmetric. 11th CN: Full strength in shoulder shrug. 12th CN: Tongue protrusion full and midline. Sensation: No decrease in sensation in upper or lower limbs to touch. Musculoskeletal: Gait steady. Tandem walk normal. Romberg negative. Motor: 5/5 RUE/RLE; 5/5 LUE/LLENormal muscle tone without atrophy in all limbs. Coordination: Rapid alternating movements LUE intact; RUE intact Reflexes: 1-2+ ALL limbs. Plantar response down going. Karnofsky performance status: 80 - Normal activity with effort, some signs or symptoms of disease. ECOG performance status: 1 - Restricted in physically strenuous activity but ambulatory and able to carry out work of a light or sedentary nature, e.g., light house work or office work. 05/18/2023 PHQ 2 and 9 Total Scores PHQ-2 Score 1 PHQ-9 Score 8 Labs: Latest Ref Rng AND Units 07/14/2024 08/12/2024 08/29/2024 CBC WBC 3.70 - 11.00 k/uL 4.83 4.93 5.20 RBC 4.20 - 6.00 m/uL 4.17 4.13 4.35 Hemoglobin 13.0 - 17.0 g/dL 13.6 13.4 14.2 Hematocrit 39.0 - 51.0 % 38.6 38.0 40.5 MCV 80.0 - 100.0 fL 92.6 92.0 93.1 MCH 26.0 - 34.0 pg 32.6 32.4 32.6 MCHC 30.5 - 36.0 g/dL 35.2 35.3 35.1 RDW-CV 11.5 - 15.0 % 14.7 15.9 15.5 Platelet Count 150 - 400 k/uL 220 164 226 MPV 9.0 - 12.7 fL 8.4 8.6 8.2 Baso% % 1.4 0.2 0.8 Abs Neut (ANC) 1.45 - 7.50 k/uL 3.01 3.83 3.39 Abs Lymph 1.00 - 4.00 k/uL 0.55 0.62 1.06 Abs Branch <0.87 k/uL 0.77 0.42 0.57 Abs Eosin <0.46 k/uL 0.40 0.03 0.11 Abs Baso <0.11 k/uL 0.07 <0.03 0.04 NRBC /100 WBC 0.0 0.0 0.0 Latest Ref Rng AND Units 06/16/2024 07/14/2024 08/12/2024 CMP Sodium 136 - 144 mmol/L 135 141 137 Potassium 3.7 - 5.1 mmol/L 4.0 4.0 4.2 Chloride 98 - 107 mmol/L 104 105 104 CO2 22 - 30 mmol/L 21 27 23 Glucose 74 - 99 mg/dL 97 105 112 BUN 9 - 24 mg/dL 23 7 15 Creatinine 0.73 - 1.22 mg/dL 1.05 0.88 1.02 EGFR >=60 mL/min/1.73m? 84 102 87 Protein, Total 6.3 - 8.0 g/dL 5.9 6.5 6.8 Albumin 3.9 - 4.9 g/dL 3.4 3.9 3.8 Calcium 8.5 - 10.2 mg/dL 8.2 9.1 9.2 Bilirubin, Total 0.2 - 1.3 mg/dL 0.6 0.5 0.3 AST 14 - 40 U/L 11 80 14 ALT 10 - 54 U/L 21 218 29 Alkaline Phosphatase 38 - 113 U/L 64 613 171 Final Pathology: SURGICAL PATHOLOGY: [id number] Order: [id number] Collected 03/19/2023 10:24 AM Status: Edited Result - FINAL Visible to patient: Yes (not seen) Dx: Brain tumor (HCC) 0 Result Notes Component FINAL DIAGNOSIS A, B. Brain, left temporal mass, biopsy and resection: - Morphologically consistent with high grade glioma. See comment. Diagnosis Comment CARLOS stained sections reveal a hypercellular infiltrating glioma with moderate to marked nuclear pleomorphism and increased mitoses (upto 4 per 10 high per field). Pseudopalisading necrosis and microvascular proliferation are identified. Immunohistochemical stains are performed at [facility] to better classify this lesion (block B1) and show the following in neoplastic cells: IDH1 R132H: neagtive (wildtype); ATRX: retained (wildtype); BRAF V600E: negative (wildtype); p53 strong nuclear positivity in up to 40%; Ki67 proliferative index up to 25%. Addendum This addendum is rendered to report the results of the following molecular studies: Targeted Oncology Panel: The oncogenic TERT promoter alteration, c.-124C>T (also known as C228T) was detected in this specimen; MGMT promoter methylation: not hypermethylated. 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 Addendum electronically signed by Krista Snow MD on 04/03/2023 at 9:13 AM Imaging: Results MRI BRAIN WO/W IVCON (Acc#[id number]) (Order [id number]) Patient Info Patient Name Sex BARRETT Angel Keating Conchita ([id number]) Male 1970 08/22/2024 2:02 PM - Radiology, Oru In Impression IMPRESSION: Slight further increase in size of enhancing nodule in the left mesial temporal lobe with surrounding FLAIR hyperintensity. Increasing enlargement is suspicious of neoplastic progression but continued follow-up is recommended. Continued increased size of extra-axial enhancing foci along the falx and over the left frontal convexity at the vertex. No new pathologic enhancement otherwise. New chronic appearing subdural hemorrhage measuring 11 mm in maximal thickness overlying the left parietal convexity with approximately 2 mm rightward midline shift. Redistribution of cystic hygroma, now measuring up to 4 mm in maximal thickness and predominantly along the left frontoparietal falx. 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 I reviewed the images with the patient and family. 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 08/22/24 MRI progressive disease 08/29/2024 BTB recommend continue on lomustine, and SRS to enhancing nodules. ISSUES: 1- GBM-MGMT promoter not hyper methylated. 08/22/24 MRI progressive disease -Off clinical trial: CASE 3322 clinical trial with methimazole + chemo. -Cycle No 2 of Lomustine 110 mg/M2 , dose capped 200 mg 1/42 day cycle, per protocol. -Start date: 09/05/2024 -TO SEE DR. WILCOX AND DR. JOYCE FOR CONSIDERATION FOR SRS TO NEW ENHANCING NODULES. 5-glaahsmwwnnh-oogdoet nausea: -Use Zofran, prior/after chemo and as needed 3-Imaging surveillance: -Brain w and w/o contrast and perfusion - in 6 week's time. 2A-Clinic visits: -In person visit in 6 weeks time. 3-Bone marrow suppression from chemotherapy: periodic CBC, every 6 weeks Also, CMP every 6 weeks. Other blood test, per clinical trial 4- Seizures: Since I saw him last, he has not had any events to suggest seizures (02/19/2024). -On lacosamide (Vimpat): Started on 04/05/23. Dose is 150 mg twice a day. -Lacosamide blood levels, Latest Reference Range AND Units 07/14/24 09:38 Lacosamide 2.2 - 19.8 ug/mL 10.6 Based on the above levels to continue on the same dose. 5-Seizure precautions: The patient is not to drive any motorized vehicle, and not to engage in activities that could place her or others in danger if she were to have a seizure. I also discussed the use of rescue medication for breakthrough seizures, using midazolam nasal spray (NS) to use it as needed (PRN) and discussed when to use it. I discussed the potential benefits and side effects, including tiredness, fatigue, and or sleepiness and if so, the patient is not to engage in activities that require to be fully alert. I have also provided written information for the patient's review. 6-He is to follow by her PCP for general medical care/coordination of care. 7-NOT ON STEROIDS 8-To see PCP for to define appropriate vaccinations above. 9-Potential for thromboembolism: to watch for potential DVT/Pulmonary Embolism, and if so to go to the ED/call 911. 10-End of life issues: Adv Dir in chart. -Patient discussed, this important aspect, of his diagnosis, that is, that he acknowledges, that this condition will end his life, at young age, and relatively soon and that he has goals, for the next year or so, that is, to attend, important milestones events of his children's, which will take place, in the next year or so. Currently,02/19/24 his children's are 20 and 21 years old. He has seen Dr. Lion, from palliative medicine will also give advice regarding This. 11-psychosocial issues: Patient asked, advised on how to approach, his current diagnosis and progressive disease, with his children who are 2020. We given some advice, how it could be helpful for his children to cope with his unfortunate condition. However, we recommended for him to seek attention from psychosocial oncology, and this Could be expanded to the family. He has seen Dr. Daniel Juárez from psychology and psychiatry, as well FAMILY SERVICES SPECIALIST Jaclyn Guillory. 12-Hygroma on surgical site: MRI 08/22/2024 New chronic appearing subdural hemorrhage measuring 11 mm in maximal thickness overlying the left parietal convexity with approximately 2 mm rightward midline shift. Redistribution of cystic hygroma, now measuring up to 4 mm in maximal thickness and predominantly along the left frontoparietal falx. 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 To see Dr. Wilcox/surgical team to address this. Also clinically there is bulging of craniotomy site. not symptomatic. 13-Fatigue after chemo - start Provigil for fatigue, improve alertness - wakefulness. I discussed potential benefits and side effects. I am seeing the patient in collaboration with Tona Cobos, RN [facility] Banking Supervisor PLAN: -Off clinical trial: CASE 3322 clinical trial with methimazole + chemo. -Cycle No 2 of Lomustine 110 mg/M2 , dose capped 200 mg day cycle, per protocol. -Start date: 09/05/2024 -TO SEE DR. WILCOX AND DR. JOYCE FOR CONSIDERATION FOR SRS TO NEW ENHANCING NODULES. -Brain w and w/o contrast and perfusion - in 6 week's time. -In person visit in 6 weeks time. Hygroma on surgical site: MRI 08/22/2024 New chronic appearing subdural hemorrhage measuring 11 mm in maximal thickness overlying the left parietal convexity with approximately 2 mm rightward midline shift. Redistribution of cystic hygroma, now measuring up to 4 mm in maximal thickness and predominantly along the left frontoparietal falx. 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 -Return visit 09/08/2024 - Clinical trials visit - with me/clinical trials RN. To see Dr. Wilcox/surgical team to address this. Also clinically there is bulging of craniotomy site. Not symptomatic. Hopefully can see on 09/08/2024 In the end the patient and family verbalized understanding of the above, they had questions which I believe I answered to their satisfaction and agreed with these recommendations and had no further questions or concerns for the moment, but I encourage them to call the [facility] with any questions or concerns. I spent a total of 40 minutes on the date of the service which included preparing to see the patient, at least 50% of [id number] patient care, completing clinical documentation, obtaining and/or reviewing separately obtained history, performing a medically appropriate examination, counseling and educating the patient/family/caregiver, ordering medications, tests, or procedures, communicating with other HCPs (not separately reported), independently interpreting results (not separately reported), communicating results to the patient/family/caregiver and care coordination (not separately reported). High MDM. Patricia Enriquez MD [facility] Patient Care Team: -Jose Evans MD, Neurosurgery, [facility], [facility] [place], [facility] Cyndee Joyce MD, PhD, Radiation Oncology, [facility], [facility]. Jaclyn Guillory LSW as Pull Worker (Hematology/Oncology) Soraida Simmons, VAZQUEZ (Hospice AND Palliative Medicine) Willy Lion MD (Hospice AND Palliative Medicine) Rupa Khoury APRN.EDSON (Hospice AND Palliative Medicine) Daniel Juárez PSYD, Psychology, [facility] Referring Provider: PATRICIA ENRIQUEZ [[id number]] Allergies As of Date: 09/05/2024 (No Known Allergies) Date Reviewed: 09/05/2024 Reviewed by: Saima Gabriel LPN - Fully Assessed Reason for Visit: Established Patient [175] Primary Visit Diagnosis:Other fatigue [R53.83] Other Visit Diagnoses:Seizures (HCC) [R56.9] GBM (glioblastoma multiforme) (HCC) [C71.9] Insomnia, unspecified type [G47.00] High grade glioma not classifiable by WHO criteria (HCC) [C71.9] At risk of seizures [Z91.89] Order(s):modafinil (PROVIGIL) 100 mg tabletTake 1 tablet by mouth once daily for 42 days.Disp: 14 tabletRfl: 2 traZODone (DESYREL) 50 mg tabletTake 1 tablet by mouth daily at bedtime.Disp: 30 tabletRfl: 2 lacosamide (VIMPAT) 150 mg tabTake 1 tablet by mouth two times a day.Disp: 180 tabletRfl: 4 Prescriptions as of 09/05/2024 - modafinil (PROVIGIL) 100 mg tablet Take 1 tablet by mouth once daily for 42 days. - traZODone (DESYREL) 50 mg tablet Take 1 tablet by mouth daily at bedtime. - lacosamide (VIMPAT) 150 mg tab Take 1 tablet by mouth two times a day. - lomustine (GLEOSTINE) 100 mg capsule Take one 8mg Zofran on an empty stomach in the evening. Wait ONE hour. Take TWO 100mg capsule(s) Lomustine by mouth for a total dose of 200mg. Take one 8 mg Zofran twenty-four hours later. Take on Day 1 of each 42 day cycle. - methIMAzole (TAPAZOLE) 5 mg tablet Take TWO 10 mg tablets and ONE 5 mg tablet for a total dose of 25 mg, daily. - methIMAzole (TAPAZOLE) 10 mg tablet Take TWO 10 mg tablets and ONE 5 mg tablet for a total dose of 25 mg, daily. - triamcinolone (KENALOG) 0.025 % cream Apply to affected area two times a day. - predniSONE (DELTASONE) 10 mg tablet Day #1 - 6 tablets PO then Day #2 - 5 tablets PO then Day #3 - 4 tablets PO then Day #4 - 3 tablets PO then Day #5 - 2 tablets PO then Day #6 - 1 tablet PO - ondansetron (ZOFRAN) 8 mg tablet Take one tablet by mouth on an empty stomach in the evening one hour prior to chemo. Then take one tablet 24 hours after chemo. May repeat dose every 8-12 hours if needed to prevent nausea - meclizine (ANTIVERT) 25 mg tab Take 1 tablet by mouth three times a day. - valACYclovir (VALTREX) 1 gram tablet Take 1,000 mg by mouth three times a day. - midazolam (NAYZILAM) 5 mg/spray (0.1 mL) nasal spray Use 1 [place] in the nose as needed for up to 10 days. May repeat dose in alternate nostril after 10 minutes based on response and tolerability. - sennosides (SENNA ORAL) Take by mouth. - DIETARY SUPPLEMENT,MISC COMB14 ORAL Take by mouth. Biomega 1000mg containing vitamin E and pure anchovy - medical supply, miscellaneous (MISCELLANEOUS MEDICAL SUPPLY MISC) Neurotrophin - acetaminophen (TYLENOL) 325 mg tablet 2 tablets by ORAL/FEEDING TUBE route every 4 hours as needed for pain. - pantoprazole DR (PROTONIX) 20 mg tablet Take 1 tablet by mouth DAILY (6 AM). Problem List As Of Date 09/05/2024 Noted Resolved Chest pain [R07.9] 04/25/2010 05/26/2024 Brain mass [G93.89] 03/17/2023 11/17/2023 Obesity, Class I, BMI 30-34.9 [E66.811] 03/17/2023 Brain compression (HCC) [G93.5] 03/20/2023 S/P brain surgery [Z98.890] 03/20/2023 11/17/2023 At risk for seizures [Z91.89] 03/20/2023 Cerebral edema (HCC) [G93.6] 03/20/2023 GBM (glioblastoma multiforme) (HCC) [C71.9] 04/07/2023 Syncope, unspecified syncope type [R55] 11/01/2023 11/03/2023 Examination of participant in clinical trial [Z*11/05/2023 11/17/2023 Forehead pain [R51.9] 11/05/2023 PONV (postoperative nausea and vomiting) [R11.2*05/26/2024 Acute post-operative pain [G89.18] 05/29/2024 Prescriptions ordered this encounter Disp Refills Start End MODAFINIL 100 MG TABLET 14 t* 2 09/05/2024 10/17/2024 Route: ORAL Sig: Take 1 tablet by mouth once daily for 42 days. TRAZODONE 50 MG TABLET 30 t* 2 09/05/2024 12/04/2024 Route: ORAL Sig: Take 1 tablet by mouth daily at bedtime. LACOSAMIDE 150 MG TABLET 180 * 4 09/05/2024 11/29/2025 Route: ORAL Sig: Take 1 tablet by mouth two times a day. Medications Discontinued During This Encounter Prescriptions - traZODone (DESYREL) 50 mg tablet (Discontinued) Take 1 tablet by mouth daily at bedtime. - lacosamide (VIMPAT) 150 mg tab (Discontinued) Take 1 tablet by mouth two times a day. Encounter Status:Closed by PATRICIA ENRIQUEZ on 09/05/24 CNPN Observed: 09/05/2024 12:00 AM Status: COMPLETED Source: [facility] Telephone ([facility]) ANGEL KEATING ([id number]) 1970 M Date Time Provider Department 09/05/24 [facility] During your visit today, we recorded the following information about you: Tona Cobos, RN 09/06/2024 7:52 AM Addendum Scheduling Request - Established Patient Time Frame: 1 week- JUANCARLOS Orders: follow up to discuss GKS Provider: Dr Marcano Visit type: No preference/First available Diagnosis: glioblastoma- please arrange follow up to discuss GKS (recommended by REGINA) Heidi will arrange for f/u with Dr Evans Thank you Catrachita Carey 09/07/2024 11:02 AM Signed Done Allergies As of Date: 09/05/2024 (No Known Allergies) Date Reviewed: 09/05/2024 Reviewed by: Saima Gabriel LPN - Fully Assessed Reason for Visit: JUANCARLOS 1 week [Other] Prescriptions as of 09/07/2024 - iv contrast (will be provided with radiology test) MRI Brain Inject, intravenously, once for 1 dose.No IV access, insert saline lock prior to beginning of sedation, infusion, injection of imaging exam.Discontinue saline lock post exam. If Pt. has a central line or IVAD, may access for administration according to line specific nursing protocol.Once exam is complete flush line and de-access according to line specific nursing protocol in the MR contrast administration guidelines link - modafinil (PROVIGIL) 100 mg tablet Take 1 tablet by mouth once daily for 42 days. - traZODone (DESYREL) 50 mg tablet Take 1 tablet by mouth daily at bedtime. - lacosamide (VIMPAT) 150 mg tab Take 1 tablet by mouth two times a day. - lomustine (GLEOSTINE) 100 mg capsule Take one 8mg Zofran on an empty stomach in the evening. Wait ONE hour. Take TWO 100mg capsule(s) Lomustine by mouth for a total dose of 200mg. Take one 8 mg Zofran twenty-four hours later. Take on Day 1 of each 42 day cycle. - methIMAzole (TAPAZOLE) 5 mg tablet Take TWO 10 mg tablets and ONE 5 mg tablet for a total dose of 25 mg, daily. - methIMAzole (TAPAZOLE) 10 mg tablet Take TWO 10 mg tablets and ONE 5 mg tablet for a total dose of 25 mg, daily. - triamcinolone (KENALOG) 0.025 % cream Apply to affected area two times a day. - predniSONE (DELTASONE) 10 mg tablet Day #1 - 6 tablets PO then Day #2 - 5 tablets PO then Day #3 - 4 tablets PO then Day #4 - 3 tablets PO then Day #5 - 2 tablets PO then Day #6 - 1 tablet PO - ondansetron (ZOFRAN) 8 mg tablet Take one tablet by mouth on an empty stomach in the evening one hour prior to chemo. Then take one tablet 24 hours after chemo. May repeat dose every 8-12 hours if needed to prevent nausea - meclizine (ANTIVERT) 25 mg tab Take 1 tablet by mouth three times a day. - valACYclovir (VALTREX) 1 gram tablet Take 1,000 mg by mouth three times a day. - midazolam (NAYZILAM) 5 mg/spray (0.1 mL) nasal spray Use 1 [place] in the nose as needed for up to 10 days. May repeat dose in alternate nostril after 10 minutes based on response and tolerability. - sennosides (SENNA ORAL) Take by mouth. - DIETARY SUPPLEMENT,MISC COMB14 ORAL Take by mouth. Biomega 1000mg containing vitamin E and pure anchovy - medical supply, miscellaneous (MISCELLANEOUS MEDICAL SUPPLY MIS) Neurotrophin - acetaminophen (TYLENOL) 325 mg tablet 2 tablets by ORAL/FEEDING TUBE route every 4 hours as needed for pain. - pantoprazole DR (PROTONIX) 20 mg tablet Take 1 tablet by mouth DAILY (6 AM). Problem List As Of Date 09/05/2024 Noted Resolved Chest pain [R07.9] 04/25/2010 05/26/2024 Brain mass [G93.89] 03/17/2023 11/17/2023 Obesity, Class I, BMI 30-34.9 [E66.811] 03/17/2023 Brain compression (HCC) [G93.5] 03/20/2023 S/P brain surgery [Z98.890] 03/20/2023 11/17/2023 At risk for seizures [Z91.89] 03/20/2023 Cerebral edema (HCC) [G93.6] 03/20/2023 GBM (glioblastoma multiforme) (HCC) [C71.9] 04/07/2023 Syncope, unspecified syncope type [R55] 11/01/2023 11/03/2023 Examination of participant in clinical trial [Z*11/05/2023 11/17/2023 Forehead pain [R51.9] 11/05/2023 PONV (postoperative nausea and vomiting) [R11.2*05/26/2024 Acute post-operative pain [G89.18] 05/29/2024 Encounter Status:Closed by CATRACHITA CASTELAN on 09/07/24 CNPN Observed: 09/02/2024 12:00 AM Status: COMPLETED Source: [facility] Telephone ([facility]) ANGEL KEATING ([id number]) 1970 M Date Time Provider Department 09/02/24 PATRICIA ENRIQUEZ [facility] During your visit today, we recorded the following information about you: Tona Cobos RN 09/02/2024 8:27 AM Signed Please create a noon slot and add angel Keating at noon on 09/[address] Fraire est patient 30 min visit Glioblastoma Tona Cobos RN 09/02/2024 10:42 AM Signed Research will add this visit Thank you S Allergies As of Date: 09/02/2024 (No Known Allergies) Date Reviewed: 08/22/2024 Reviewed by: Tanvi Stewart MA - Fully Assessed Reason for Visit: Urgent add on for 09/05/24 [Other] Prescriptions as of 09/02/2024 - lomustine (GLEOSTINE) 100 mg capsule Take one 8mg Zofran on an empty stomach in the evening. Wait ONE hour. Take TWO 100mg capsule(s) Lomustine by mouth for a total dose of 200mg. Take one 8 mg Zofran twenty-four hours later. Take on Day 1 of each 42 day cycle. - lacosamide (VIMPAT) 150 mg tab Take 1 tablet by mouth two times a day. - methIMAzole (TAPAZOLE) 5 mg tablet Take TWO 10 mg tablets and ONE 5 mg tablet for a total dose of 25 mg, daily. - methIMAzole (TAPAZOLE) 10 mg tablet Take TWO 10 mg tablets and ONE 5 mg tablet for a total dose of 25 mg, daily. - triamcinolone (KENALOG) 0.025 % cream Apply to affected area two times a day. - traZODone (DESYREL) 50 mg tablet Take 1 tablet by mouth daily at bedtime. - predniSONE (DELTASONE) 10 mg tablet Day #1 - 6 tablets PO then Day #2 - 5 tablets PO then Day #3 - 4 tablets PO then Day #4 - 3 tablets PO then Day #5 - 2 tablets PO then Day #6 - 1 tablet PO - ondansetron (ZOFRAN) 8 mg tablet Take one tablet by mouth on an empty stomach in the evening one hour prior to chemo. Then take one tablet 24 hours after chemo. May repeat dose every 8-12 hours if needed to prevent nausea - meclizine (ANTIVERT) 25 mg tab Take 1 tablet by mouth three times a day. - valACYclovir (VALTREX) 1 gram tablet Take 1,000 mg by mouth three times a day. - midazolam (NAYZILAM) 5 mg/spray (0.1 mL) nasal spray Use 1 [place] in the nose as needed for up to 10 days. May repeat dose in alternate nostril after 10 minutes based on response and tolerability. - sennosides (SENNA ORAL) Take by mouth. - DIETARY SUPPLEMENT,MISC COMB14 ORAL Take by mouth. Biomega 1000mg containing vitamin E and pure anchovy - medical supply, miscellaneous (MISCELLANEOUS MEDICAL SUPPLY MIS) Neurotrophin - acetaminophen (TYLENOL) 325 mg tablet 2 tablets by ORAL/FEEDING TUBE route every 4 hours as needed for pain. - pantoprazole DR (PROTONIX) 20 mg tablet Take 1 tablet by mouth DAILY (6 AM). Problem List As Of Date 09/02/2024 Noted Resolved Chest pain [R07.9] 04/25/2010 05/26/2024 Brain mass [G93.89] 03/17/2023 11/17/2023 Obesity, Class I, BMI 30-34.9 [E66.811] 03/17/2023 Brain compression (HCC) [G93.5] 03/20/2023 S/P brain surgery [Z98.890] 03/20/2023 11/17/2023 At risk for seizures [Z91.89] 03/20/2023 Cerebral edema (HCC) [G93.6] 03/20/2023 GBM (glioblastoma multiforme) (HCC) [C71.9] 04/07/2023 Syncope, unspecified syncope type [R55] 11/01/2023 11/03/2023 Examination of participant in clinical trial [Z*11/05/2023 11/17/2023 Forehead pain [R51.9] 11/05/2023 PONV (postoperative nausea and vomiting) [R11.2*05/26/2024 Acute post-operative pain [G89.18] 05/29/2024 Encounter Status:Closed by TONA COBOS on 09/02/24 CNPN Observed: 09/01/2024 12:00 AM Status: COMPLETED Source: [facility] ANGEL KEATING ([id number]) 1970 Date Time Provider Department 09/01/24 NADEEN BECKETT [facility] During your visit today, we recorded the following information about you: Nadeen Beckett RN 09/02/2024 3:58 PM Signed Telephone Follow up: Patient: Angel Conchita Rishabh, 1970 Patient identified by name and date of : YES Spoke to: Patient Reason for call: To follow up on: Lomustine Medication. Patient has been instructed to not take medication until he has spoken with Dr. Enriquez regarding the start date. Patient reports he has Lomustine 200mg in hand and ready. Nadeen Beckett RN 09/01/2024 2:20 PM Chart routed to Dr. Enriquez (Primary): YES Allergies As of Date: 09/01/2024 (No Known Allergies) Date Reviewed: 08/22/2024 Reviewed by: Tanvi Stewart MA - Fully Assessed Reason for Visit: Urgent add on for 09/05 [Other] Prescriptions as of 09/02/2024 - lomustine (GLEOSTINE) 100 mg capsule Take one 8mg Zofran on an empty stomach in the evening. Wait ONE hour. Take TWO 100mg capsule(s) Lomustine by mouth for a total dose of 200mg. Take one 8 mg Zofran twenty-four hours later. Take on Day 1 of each 42 day cycle. - lacosamide (VIMPAT) 150 mg tab Take 1 tablet by mouth two times a day. - methIMAzole (TAPAZOLE) 5 mg tablet Take TWO 10 mg tablets and ONE 5 mg tablet for a total dose of 25 mg, daily. - methIMAzole (TAPAZOLE) 10 mg tablet Take TWO 10 mg tablets and ONE 5 mg tablet for a total dose of 25 mg, daily. - triamcinolone (KENALOG) 0.025 % cream Apply to affected area two times a day. - traZODone (DESYREL) 50 mg tablet Take 1 tablet by mouth daily at bedtime. - predniSONE (DELTASONE) 10 mg tablet Day #1 - 6 tablets PO then Day #2 - 5 tablets PO then Day #3 - 4 tablets PO then Day #4 - 3 tablets PO then Day #5 - 2 tablets PO then Day #6 - 1 tablet PO - ondansetron (ZOFRAN) 8 mg tablet Take one tablet by mouth on an empty stomach in the evening one hour prior to chemo. Then take one tablet 24 hours after chemo. May repeat dose every 8-12 hours if needed to prevent nausea - meclizine (ANTIVERT) 25 mg tab Take 1 tablet by mouth three times a day. - valACYclovir (VALTREX) 1 gram tablet Take 1,000 mg by mouth three times a day. - midazolam (NAYZILAM) 5 mg/spray (0.1 mL) nasal spray Use 1 [place] in the nose as needed for up to 10 days. May repeat dose in alternate nostril after 10 minutes based on response and tolerability. - sennosides (SENNA ORAL) Take by mouth. - DIETARY SUPPLEMENT,MISC COMB14 ORAL Take by mouth. Biomega 1000mg containing vitamin E and pure anchovy - medical supply, miscellaneous (MISCELLANEOUS MEDICAL SUPPLY MIS) Neurotrophin - acetaminophen (TYLENOL) 325 mg tablet 2 tablets by ORAL/FEEDING TUBE route every 4 hours as needed for pain. - pantoprazole DR (PROTONIX) 20 mg tablet Take 1 tablet by mouth DAILY (6 AM). Problem List As Of Date 09/01/2024 Noted Resolved Chest pain [R07.9] 04/25/2010 05/26/2024 Brain mass [G93.89] 03/17/2023 11/17/2023 Obesity, Class I, BMI 30-34.9 [E66.811] 03/17/2023 Brain compression (HCC) [G93.5] 03/20/2023 S/P brain surgery [Z98.890] 03/20/2023 11/17/2023 At risk for seizures [Z91.89] 03/20/2023 Cerebral edema (HCC) [G93.6] 03/20/2023 GBM (glioblastoma multiforme) (HCC) [C71.9] 04/07/2023 Syncope, unspecified syncope type [R55] 11/01/2023 11/03/2023 Examination of participant in clinical trial [Z*11/05/2023 11/17/2023 Forehead pain [R51.9] 11/05/2023 PONV (postoperative nausea and vomiting) [R11.2*05/26/2024 Acute post-operative pain [G89.18] 05/29/2024 Encounter Status:Closed by NADEEN BECKETT on 09/02/24 TRINO Observed: 09/01/2024 12:00 AM Status: COMPLETED Source: [facility] Telephone ([facility]) ANGEL KEATING ([id number]) 1970 M Date Time Provider Department 09/01/24 PATRICIA ENRIQUEZ [facility] During your visit today, we recorded the following information about you: Patricia Enriquez MD 09/05/2024 9:39 PM Addendum I called the patient, to inform him, that we have done some review of his chart, and the pharmacy records, he received lomustine, and according to these notes, he took Cycle No 1 on 06/28/2024. Then, on the same records from the pharmacy, the same, the patient would have expected physical cycle, on August 12, 2024. There is a note, that there was a delay, because of the [place] holidays. Cycle #3, is projected to start on September 23, 2024. According to clinical trials records, cycle #1 of lomustine, began on July 28, 2024, and the second #2 of lomustine, is to start, on September 05, 2024. EXCERPT/VERBATIM OF PHARMACY NOTE Maral Martel Progress Notes Addendum Encounter Date: 08/05/2024 Expand All Collapse All [facility] Refill Assessment Medication(s): Gleostine Reviewed OV note on 07/14/24 - pt began CASE 3322 clinical trial with methimazole + chemo - methimazole starte 05/24 preop; resection 05/27; then gleostine started 06/28 (per RN note 07/14). Labs reviewed. Gleostine (42 day) cycles are as follows: C1D1 06/28/24 C2D1 08/12/24 - delayed for holiday/OV lab appt C3D1 09/23/24 The patient's recollection, that he took his cycle 1 of lomustine, also middle of June, around June 28. He was to start, his next cycle early August 2024, but according to him, this has not restarted, because there were some delays that he mention, and he still has his lomustine, the bottle of lomustine, cycle No 2, was issued, on August 05, 2024. It seems, that the patient's recollection when he took his chemo, goes more along with what pharmacy notes indicates. There is a significant discrepancy, on the dates, as above noted. -I told the patient, to make sure, we review all the data, I told him not to take his chemotherapy yet, and to please bring it with him, at his clinic appointment. Because according to the above data, the patient has been delayed in terms of taking his lomustine, I would like to see the patient the sooner the better, and although he has appointments on 2 different days next week, on 09/07/2024, and 09/08/2024, I told the patient, that I like to see him on Thursday September 05, 2024, so we can review, again, the best possible when he has taken his chemo, so he can start taking his next cycle of lomustine, on 09/05/2024. The patient is in agreement with that. PLAN: -Clinic visit in person 09/05/2024 -the patient is off the clinical trial, and he is transitioning to standard of care team. -Review, of the exact dates when he took his lomustine -CBC and CMP pre chemo -Patient to bring his lomustine he has with him at home, and all the left over study drug, methimazole with him at next week's clinic visit. The patient indicates understanding of these issues and agrees with the plan. Patricia Enriquez MD Allergies As of Date: 09/01/2024 (No Known Allergies) Date Reviewed: 08/22/2024 Reviewed by: Tanvi Stewart MA - Fully Assessed Prescriptions as of 09/05/2024 - modafinil (PROVIGIL) 100 mg tablet Take 1 tablet by mouth once daily for 42 days. - traZODone (DESYREL) 50 mg tablet Take 1 tablet by mouth daily at bedtime. - lacosamide (VIMPAT) 150 mg tab Take 1 tablet by mouth two times a day. - lomustine (GLEOSTINE) 100 mg capsule Take one 8mg Zofran on an empty stomach in the evening. Wait ONE hour. Take TWO 100mg capsule(s) Lomustine by mouth for a total dose of 200mg. Take one 8 mg Zofran twenty-four hours later. Take on Day 1 of each 42 day cycle. - methIMAzole (TAPAZOLE) 5 mg tablet Take TWO 10 mg tablets and ONE 5 mg tablet for a total dose of 25 mg, daily. - methIMAzole (TAPAZOLE) 10 mg tablet Take TWO 10 mg tablets and ONE 5 mg tablet for a total dose of 25 mg, daily. - triamcinolone (KENALOG) 0.025 % cream Apply to affected area two times a day. - predniSONE (DELTASONE) 10 mg tablet Day #1 - 6 tablets PO then Day #2 - 5 tablets PO then Day #3 - 4 tablets PO then Day #4 - 3 tablets PO then Day #5 - 2 tablets PO then Day #6 - 1 tablet PO - ondansetron (ZOFRAN) 8 mg tablet Take one tablet by mouth on an empty stomach in the evening one hour prior to chemo. Then take one tablet 24 hours after chemo. May repeat dose every 8-12 hours if needed to prevent nausea - meclizine (ANTIVERT) 25 mg tab Take 1 tablet by mouth three times a day. - valACYclovir (VALTREX) 1 gram tablet Take 1,000 mg by mouth three times a day. - midazolam (NAYZILAM) 5 mg/spray (0.1 mL) nasal spray Use 1 [place] in the nose as needed for up to 10 days. May repeat dose in alternate nostril after 10 minutes based on response and tolerability. - sennosides (SENNA ORAL) Take by mouth. - DIETARY SUPPLEMENT,MISC COMB14 ORAL Take by mouth. Biomega 1000mg containing vitamin E and pure anchovy - medical supply, miscellaneous (MISCELLANEOUS MEDICAL SUPPLY MIS) Neurotrophin - acetaminophen (TYLENOL) 325 mg tablet 2 tablets by ORAL/FEEDING TUBE route every 4 hours as needed for pain. - pantoprazole DR (PROTONIX) 20 mg tablet Take 1 tablet by mouth DAILY (6 AM). Problem List As Of Date 09/01/2024 Noted Resolved Chest pain [R07.9] 04/25/2010 05/26/2024 Brain mass [G93.89] 03/17/2023 11/17/2023 Obesity, Class I, BMI 30-34.9 [E66.811] 03/17/2023 Brain compression (HCC) [G93.5] 03/20/2023 S/P brain surgery [Z98.890] 03/20/2023 11/17/2023 At risk for seizures [Z91.89] 03/20/2023 Cerebral edema (HCC) [G93.6] 03/20/2023 GBM (glioblastoma multiforme) (HCC) [C71.9] 04/07/2023 Syncope, unspecified syncope type [R55] 11/01/2023 11/03/2023 Examination of participant in clinical trial [Z*11/05/2023 11/17/2023 Forehead pain [R51.9] 11/05/2023 PONV (postoperative nausea and vomiting) [R11.2*05/26/2024 Acute post-operative pain [G89.18] 05/29/2024 Encounter Status:Closed by PATRICIA ENRIQUEZ on 09/01/24 TRINO Observed: 08/31/2024 12:00 AM Status: COMPLETED Source: [facility] Telephone ([facility]) ANGEL KEATING ([id number]) 1970 M Date Time Provider Department 08/31/24 PATRICIA ENRIQUEZ [facility] During your visit today, we recorded the following information about you: Patricia Enriquez MD 08/31/2024 11:24 PM Signed I called Dr. Keating, informing him, of the consensus recommendations, of our brain tumor board meeting. I talking, Dr. Rodriguez, it was deemed, that the MRI of the brain that he had on 08/22/2024, is consistent with progressive disease. 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 I explained, the above recommendations with the patient, the reasoning behind, and the expected and projected outcomes. The patient tells me, that he has had lomustine, prior to the surgery. He tells me, that he is sure, he took the second cycle of lomustine, mid-June and that he did not take the cycle that was planned for July 28. He in fact, has chemotherapy at hand, that he received approximately 2 weeks ago. The above, complete, with what we have in our records which is as follows: 02/08/2024: MRI shows progression 02/08/24 [facility]TB Referrals to se Dr. Evans for possible surgery. If surgery offered, he can be enrolled in CASE 3322 clinical trial with methimazole + chemo. 02/18/24: Dr Evans recommended NO surgery. 02/26/24 Lomustine 90mg/m2 C#1 02/25-04/08/24 04/12/24 Tumor progression, increased CBV 04/14/2024 BTB Referrals to se Dr. Evans for possible surgery. The patient is also eligible, for CASE 3322 clinical trial with methimazole + chemo. 04/28/2024 Jose Evans MD since the patient, and recommended surgery. 04/28/2024 clinical trials team, saw the patient, the patient is eligible, for for CASE 3322 clinical trial with methimazole + chemo. Patient signed consent. Treatment plan: Pre-operative treatment Phase -Methimazole - Pre-Op period: 05/24/2024 to 05/27/2024 (last dose is DAY of surgery) -Dose level 2 (25 mg daily) Surgical resection 05/27/[address] 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 C1D1 (10-28 days after surgery) -Scheduled for 06/16/2024 (20 days post op) -Methimazole - Post-Op period: 05/27/2024- TBD -Dose level 2 (25 mg daily) C1D1 lomustine 110 mg/m2 - 07/28/24 C2D1 lomustine -- planned for 09/07/24 08/22/2024 Brain MR - new enhancing nodules. Progressive disease. The patient, says that from his perspective, since he has not taken any chemo since sometime mid June, he is due for his next cycle and this is that he is taking it, for tomorrow. I told him, to please do not take the chemotherapy, until he hears from us I will, ask our clinical trials nurse, to look into, the days when the patient took his lomustine The patient indicates understanding of these issues and agrees with the plan. Patricia Enriquez MD Allergies As of Date: 08/31/2024 (No Known Allergies) Date Reviewed: 08/22/2024 Reviewed by: Tanvi Stewart MA - Fully Assessed Prescriptions as of 08/31/2024 - lomustine (GLEOSTINE) 100 mg capsule Take one 8mg Zofran on an empty stomach in the evening. Wait ONE hour. Take TWO 100mg capsule(s) Lomustine by mouth for a total dose of 200mg. Take one 8 mg Zofran twenty-four hours later. Take on Day 1 of each 42 day cycle. - lacosamide (VIMPAT) 150 mg tab Take 1 tablet by mouth two times a day. - methIMAzole (TAPAZOLE) 5 mg tablet Take TWO 10 mg tablets and ONE 5 mg tablet for a total dose of 25 mg, daily. - methIMAzole (TAPAZOLE) 10 mg tablet Take TWO 10 mg tablets and ONE 5 mg tablet for a total dose of 25 mg, daily. - triamcinolone (KENALOG) 0.025 % cream Apply to affected area two times a day. - traZODone (DESYREL) 50 mg tablet Take 1 tablet by mouth daily at bedtime. - predniSONE (DELTASONE) 10 mg tablet Day #1 - 6 tablets PO then Day #2 - 5 tablets PO then Day #3 - 4 tablets PO then Day #4 - 3 tablets PO then Day #5 - 2 tablets PO then Day #6 - 1 tablet PO - ondansetron (ZOFRAN) 8 mg tablet Take one tablet by mouth on an empty stomach in the evening one hour prior to chemo. Then take one tablet 24 hours after chemo. May repeat dose every 8-12 hours if needed to prevent nausea - meclizine (ANTIVERT) 25 mg tab Take 1 tablet by mouth three times a day. - valACYclovir (VALTREX) 1 gram tablet Take 1,000 mg by mouth three times a day. - midazolam (NAYZILAM) 5 mg/spray (0.1 mL) nasal spray Use 1 [place] in the nose as needed for up to 10 days. May repeat dose in alternate nostril after 10 minutes based on response and tolerability. - sennosides (SENNA ORAL) Take by mouth. - DIETARY SUPPLEMENT,MISC COMB14 ORAL Take by mouth. Biomega 1000mg containing vitamin E and pure anchovy - medical supply, miscellaneous (MISCELLANEOUS MEDICAL SUPPLY MISC) Neurotrophin - acetaminophen (TYLENOL) 325 mg tablet 2 tablets by ORAL/FEEDING TUBE route every 4 hours as needed for pain. - pantoprazole DR (PROTONIX) 20 mg tablet Take 1 tablet by mouth DAILY (6 AM). Problem List As Of Date 08/31/2024 Noted Resolved Chest pain [R07.9] 04/25/2010 05/26/2024 Brain mass [G93.89] 03/17/2023 11/17/2023 Obesity, Class I, BMI 30-34.9 [E66.811] 03/17/2023 Brain compression (HCC) [G93.5] 03/20/2023 S/P brain surgery [Z98.890] 03/20/2023 11/17/2023 At risk for seizures [Z91.89] 03/20/2023 Cerebral edema (HCC) [G93.6] 03/20/2023 GBM (glioblastoma multiforme) (HCC) [C71.9] 04/07/2023 Syncope, unspecified syncope type [R55] 11/01/2023 11/03/2023 Examination of participant in clinical trial [Z*11/05/2023 11/17/2023 Forehead pain [R51.9] 11/05/2023 PONV (postoperative nausea and vomiting) [R11.2*05/26/2024 Acute post-operative pain [G89.18] 05/29/2024 Encounter Status:Closed by PATRICIA ENRIQUEZ on 08/31/24 PROGRESS Observed: 08/30/2024 1:36 PM Status: COMPLETED Source: [facility] ID: [id number] Author: NADEEN BECKETT RN Service: ? 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 Enriquez Reason: Progression Progressive Disease by RANO date: 08/22/2024 Off study date: 08/30/2024 Last dose of clinical trial medication: Methimazole Leftover medication returned to pharmacy: N/A Peripheral IV for infusion removed without incident: N/A Team notified of patient off study: YES Research RN provided support to patient and family over the phone. Care will be transferred from research staff to care coordinators. Forwarded to [facility] for handoff: YES Nadeen Beckett RN 08/30/2024 CNTM Observed: 08/30/2024 12:00 AM Status: COMPLETED Source: [facility] Treatment Team (NSCAMN) ANGEL KEATING ([id number]) 1970 M Date Time Provider Department 08/30/24 NADEEN BECKETT [facility] During your visit today, we recorded the following information about you: Nadeen Beckett RN 08/30/2024 1:38 PM Signed CASE: IRB#: [id number] Case 3322 - Targeting Transsulfuration via Suppression of Thyroid Hormone Signaling in Progressive Glioblastoma; Modified Phase 1/2 and Pharmacodynamic Trial of Methimazole in Patients with Progressive WHO Grade 4 Glioblastoma Patient: Angel Keating, 1970 Patient off study per Dr. Enriquez Reason: Progression Progressive Disease by RANO date: 08/22/2024 Off study date: 08/30/2024 Last dose of clinical trial medication: Methimazole Leftover medication returned to pharmacy: N/A Peripheral IV for infusion removed without incident: N/A Team notified of patient off study: YES Research RN provided support to patient and family over the phone. Care will be transferred from research staff to care coordinators. Forwarded to [facility] for handoff: YES Nadeen Beckett RN 08/30/2024 Allergies As of Date: 08/30/2024 (No Known Allergies) Date Reviewed: 08/22/2024 Reviewed by: Tanvi Stewart MA - Fully Assessed Prescriptions as of 08/30/2024 - lacosamide (VIMPAT) 150 mg tab Take 1 tablet by mouth two times a day. - methIMAzole (TAPAZOLE) 5 mg tablet Take TWO 10 mg tablets and ONE 5 mg tablet for a total dose of 25 mg, daily. - methIMAzole (TAPAZOLE) 10 mg tablet Take TWO 10 mg tablets and ONE 5 mg tablet for a total dose of 25 mg, daily. - triamcinolone (KENALOG) 0.025 % cream Apply to affected area two times a day. - traZODone (DESYREL) 50 mg tablet Take 1 tablet by mouth daily at bedtime. - lomustine (GLEOSTINE) 100 mg capsule Take one 8mg Zofran on an empty stomach in the evening. Wait ONE hour. Take TWO 100mg capsule(s) Lomustine by mouth for a total dose of 200mg. Take one 8 mg Zofran twenty-four hours later. Take on Day 1 of each 42 day cycle. - predniSONE (DELTASONE) 10 mg tablet Day #1 - 6 tablets PO then Day #2 - 5 tablets PO then Day #3 - 4 tablets PO then Day #4 - 3 tablets PO then Day #5 - 2 tablets PO then Day #6 - 1 tablet PO - ondansetron (ZOFRAN) 8 mg tablet Take one tablet by mouth on an empty stomach in the evening one hour prior to chemo. Then take one tablet 24 hours after chemo. May repeat dose every 8-12 hours if needed to prevent nausea - meclizine (ANTIVERT) 25 mg tab Take 1 tablet by mouth three times a day. - valACYclovir (VALTREX) 1 gram tablet Take 1,000 mg by mouth three times a day. - midazolam (NAYZILAM) 5 mg/spray (0.1 mL) nasal spray Use 1 [place] in the nose as needed for up to 10 days. May repeat dose in alternate nostril after 10 minutes based on response and tolerability. - sennosides (SENNA ORAL) Take by mouth. - DIETARY SUPPLEMENT,MISC COMB14 ORAL Take by mouth. Biomega 1000mg containing vitamin E and pure anchovy - medical supply, miscellaneous (MISCELLANEOUS MEDICAL SUPPLY MIS) Neurotrophin - acetaminophen (TYLENOL) 325 mg tablet 2 tablets by ORAL/FEEDING TUBE route every 4 hours as needed for pain. - pantoprazole DR (PROTONIX) 20 mg tablet Take 1 tablet by mouth DAILY (6 AM). Problem List As Of Date 08/30/2024 Noted Resolved Chest pain [R07.9] 04/25/2010 05/26/2024 Brain mass [G93.89] 03/17/2023 11/17/2023 Obesity, Class I, BMI 30-34.9 [E66.811] 03/17/2023 Brain compression (HCC) [G93.5] 03/20/2023 S/P brain surgery [Z98.890] 03/20/2023 11/17/2023 At risk for seizures [Z91.89] 03/20/2023 Cerebral edema (HCC) [G93.6] 03/20/2023 GBM (glioblastoma multiforme) (HCC) [C71.9] 04/07/2023 Syncope, unspecified syncope type [R55] 11/01/2023 11/03/2023 Examination of participant in clinical trial [Z*11/05/2023 11/17/2023 Forehead pain [R51.9] 11/05/2023 PONV (postoperative nausea and vomiting) [R11.2*05/26/2024 Acute post-operative pain [G89.18] 05/29/2024 Encounter Status:Closed by NADEEN BECKETT on 08/30/24 PROGRESS Observed: 08/29/2024 6:30 PM Status: COMPLETED Source: [facility] HNO ID: [id number] Author: PATRICIA ENRIQUEZ MD Service: ? Author Type: Physician Type: Progress Notes Filed: 08/30/2024 14:19 Note Text: Summary: BRAIN TUMOR BOARD August 29, 2024 BRAIN TUMOR BOARD August 29, 2024 Participants: Neuroradiology: Tab Maher Neurosurgery Radiation Oncologist Medical Oncology/Neuro-Oncology Recommendations and comments from the board, see below. I will inform the patient about the recommendations at the earliest opportunity/or next short interval follow up appointment. Patricia Enriquez MD BRAIN TUMOR BOARD August 29, 2024 10 [facility] Multidisciplinary Angel Keating [id number] Glioblastoma [facility] MRI 04/12, MRI 05/28, 07/13/2024 ; 08/22/2024 90 No Unknown 52 yo [facility] PMH of a left-sided craniotomy for resection of the temporal mass on 03/19/23. Pathology confirmed glioblastoma multiforme (GBM), [id number] negative, MGMT unmethylated, and TERTp promotor per TOP. The patient was enrolled in the GCAR ND trial and was randomized to receive radiation therapy, temozolomide, and [id number] during concurrent therapy. He has completed seven cycles of adjuvant temozolomide per protocol, with [id number] being administered continuously twice weekly since 04/20/2023. Recent MRI shows progression. 05/27 Left sided re-do craniotomy for tumor resection. Scheduled to see post op Patient continues on CASE 3322 since 06/16/2024, w/ Lomustine started on 07/28/2024. Progression, if so treatment options? BTB Consensus recommendations: Progression. Proceed with lomustine and add Gamma Knife. Consider Optune CBC W AUTO DIFF BLD Collected: 08/29/2024 11:55 AM S tatus: F Source: [facility] Order Comment: Specimen Type : BLOOD SPECIMEN Ordering Facility: [facility] Address: [address] [place] [address] TYPE CODE TESTS RESULT OUT OF RANGE REFERENCE UNITS LAB 6690-2([facility]) WBC # Bld Auto 5.20 3.70-11.00 k/uL LAB 789-8([facility]) RBC # Bld Auto 4.35 4.20-6.00 m/ uL LAB 718-7([facility]) Hgb Bld-mCnc 14.2 13.0-17.0 g/dL LAB 4544-3([facility]) Hct VFr Bld Auto 40.5 39.0-51.0 % LAB 787-2([facility]) MCV RBC Auto 93.1 80.0-100.0 fL LAB 785-6([facility]) MCH RBC Qn Auto 32.6 26.0-34.0 p g LAB 786-4([facility]) MCHC RBC Auto-mCnc 35.1 30.5-36.0 g/dL LAB 06642-6([facility]) RDW RBC-Rto 15.5 High 11.5-15.0 % LAB 777-3([facility]) Platelet # Bld Auto 226 150-400 k/uL LAB 70226-6([facility]) PMV Bld Auto 8.2 Low 9.0-12.7 fL LAB 770-8([facility]) Neutrophils/leuk NFr Bld Auto 65.1 % LAB 751-8([facility]) Neutrophils # Bld Auto 3.39 1.45-7.50 k/uL LAB 736-9([facility]) Lymphocytes/leuk NFr Bld Auto 20.4 % LAB 731-0([facility]) Lymphocytes # Bld Auto 1.06 1.00-4.00 k/uL LAB 5905-5([facility]) Monocytes/leuk NFr Bld Auto 11.0 % LAB 742-7([facility]) Monocytes # Bld Auto 0.57 <0.87 k/uL LAB 713-8([facility]) Eosinophil/leuk NFr Bld Auto 2.1 % LAB 711-2([facility]) Eosinophil # Bld Auto 0.11 <0.46 k/uL LAB 706-2([facility]) Basophils/leuk NFr Bld Auto 0.8 % LAB 704-7([facility]) Basophils # Bld Auto 0.04 <0.11 k/uL LAB 89842-6([facility]) Imm Granulocytes/christina k NFr Bld Auto 0.6 % LAB 27081-7([facility]) Imm Granulocytes # Bld Auto 0.03 <0.10 k/uL LAB 80146-1([facility]) nRBC/100 WBC Bld-Rto 0.0 /100 WBC LAB 771-6([facility]) nRBC # Bld Auto <0.01 <0.01 k/u L LAB 00254-8([facility]) Differential method Bld Auto Performed By: #### [id number] # ### [facility] CLIA [id number] [address] [place] [address] PROGRESS Observed: 08/22/2024 3:26 PM Status: COMPLETED Source: [facility] HNO ID: [id number] Author: TANVI STEWART MA Service: ? Author Type: Camp Housekeeper Type: Progress Notes Filed: 08/31/2024 15:17 Note Text: Reviewed and confirmed with patient that there were no changes in the nursing assessment and vitals that were completed on 08/22/24 during previous provider appointment. Tanvi Stewart MA PROGRESS Observed: 08/22/2024 3:23 PM Status: COMPLETED Source: [facility] HNO ID: [id number] Author: NADEEN BECKETT RN Service: ? Author Type: Registered Nurse Type: Progress Notes Filed: 08/22/2024 15:26 Note Text: IRB#: [id number] Case 3322 - Targeting Transsulfuration via Suppression of Thyroid Hormone Signaling in Progressive Glioblastoma; Modified Phase 1/2 and Pharmacodynamic Trial of Methimazole in Patients with Progressive WHO Grade 4 Glioblastoma Patient had a short interval MRI today at the request of Dr. Enriquez. Patient scans are concerning and will be placed on Thursday08/29/2024 Tumorboard for review, per Dr. Enriquez. CNNURSE Observed: 08/22/2024 2:30 PM Status: COMPLETED Source: [facility] Nurse Visit (DURAN WEEKS) RISHABHANGEL Arango ([id number]) 1970 M Date Time Provider Department 08/22/24 2:30 PM NADEEN BECKETT During your visit today, we recorded the following information about you: Tanvi Stewart MA 08/31/2024 3:17 PM Signed Reviewed and confirmed with patient that there were no changes in the nursing assessment and vitals that were completed on 08/22/24 during previous provider appointment. Tanvi Stewart MA Referring Provider: PATRICIA ENRIQUEZ [[id number]] Allergies As of Date: 08/22/2024 (No Known Allergies) Date Reviewed: 08/22/2024 Reviewed by: Tanvi Stewart MA - Fully Assessed Primary Visit Diagnosis:GBM (glioblastoma multiforme) (HCC) [C71.9] Prescriptions as of 08/31/2024 - lacosamide (VIMPAT) 150 mg tab Take 1 tablet by mouth two times a day. - methIMAzole (TAPAZOLE) 5 mg tablet Take TWO 10 mg tablets and ONE 5 mg tablet for a total dose of 25 mg, daily. - methIMAzole (TAPAZOLE) 10 mg tablet Take TWO 10 mg tablets and ONE 5 mg tablet for a total dose of 25 mg, daily. - triamcinolone (KENALOG) 0.025 % cream Apply to affected area two times a day. - traZODone (DESYREL) 50 mg tablet Take 1 tablet by mouth daily at bedtime. - lomustine (GLEOSTINE) 100 mg capsule Take one 8mg Zofran on an empty stomach in the evening. Wait ONE hour. Take TWO 100mg capsule(s) Lomustine by mouth for a total dose of 200mg. Take one 8 mg Zofran twenty-four hours later. Take on Day 1 of each 42 day cycle. - predniSONE (DELTASONE) 10 mg tablet Day #1 - 6 tablets PO then Day #2 - 5 tablets PO then Day #3 - 4 tablets PO then Day #4 - 3 tablets PO then Day #5 - 2 tablets PO then Day #6 - 1 tablet PO - ondansetron (ZOFRAN) 8 mg tablet Take one tablet by mouth on an empty stomach in the evening one hour prior to chemo. Then take one tablet 24 hours after chemo. May repeat dose every 8-12 hours if needed to prevent nausea - meclizine (ANTIVERT) 25 mg tab Take 1 tablet by mouth three times a day. - valACYclovir (VALTREX) 1 gram tablet Take 1,000 mg by mouth three times a day. - midazolam (NAYZILAM) 5 mg/spray (0.1 mL) nasal spray Use 1 [place] in the nose as needed for up to 10 days. May repeat dose in alternate nostril after 10 minutes based on response and tolerability. - sennosides (SENNA ORAL) Take by mouth. - DIETARY SUPPLEMENT,MISC COMB14 ORAL Take by mouth. Biomega 1000mg containing vitamin E and pure anchovy - medical supply, miscellaneous (MISCELLANEOUS MEDICAL SUPPLY MIS) Neurotrophin - acetaminophen (TYLENOL) 325 mg tablet 2 tablets by ORAL/FEEDING TUBE route every 4 hours as needed for pain. - pantoprazole DR (PROTONIX) 20 mg tablet Take 1 tablet by mouth DAILY (6 AM). Problem List As Of Date 08/22/2024 Noted Resolved Chest pain [R07.9] 04/25/2010 05/26/2024 Brain mass [G93.89] 03/17/2023 11/17/2023 Obesity, Class I, BMI 30-34.9 [E66.811] 03/17/2023 Brain compression (HCC) [G93.5] 03/20/2023 S/P brain surgery [Z98.890] 03/20/2023 11/17/2023 At risk for seizures [Z91.89] 03/20/2023 Cerebral edema (HCC) [G93.6] 03/20/2023 GBM (glioblastoma multiforme) (HCC) [C71.9] 04/07/2023 Syncope, unspecified syncope type [R55] 11/01/2023 11/03/2023 Examination of participant in clinical trial [Z*11/05/2023 11/17/2023 Forehead pain [R51.9] 11/05/2023 PONV (postoperative nausea and vomiting) [R11.2*05/26/2024 Acute post-operative pain [G89.18] 05/29/2024 Encounter Status:Closed by NADEEN BECKETT on 08/31/24 PROGRESS Observed: 08/22/2024 1:40 PM Status: COMPLETED Source: [facility] HNO ID: [id number] Author: TANVI STEWART MA Service: ? Author Type: Camp Housekeeper Type: Progress Notes Filed: 08/28/2024 23:22 Note Text: Additional intake questions: Has the patient had fever, nausea, vomiting, diarrhea, constipation, fatigue for > 1 week? Yes, nausea and fatigue Does the patient have a decreased appetite? No Does patient want to see a Outside Solar Sales Consultant? No (yes to any of above refer patient to schedulers for dietitian appointment) ) Does patient have any new or increased numbness or tingling of extremities? No Is patient interested in fertility information? No Does patient need any prescription refills? No Does patient have an advanced directive in place? Yes, copies are in Epic Electronically Signed By: Tanvi Stewart MA CNOV Observed: 08/22/2024 1:00 PM Status: COMPLETED Source: [facility] Office Visit (NSCAMN) ANGEL KEATING ([id number]) 1970 M Date Time Provider Department 08/22/24 1:00 PM PATRICIA ENRIQUEZ NSCAMN During your visit today, we recorded the following information about you: Temperature Pulse Respiration Blood pressure 97.9 degrees 91/minute 18/minute 136/93 Weight 100.2 kg Patricia Enriquez MD 08/28/2024 11:22 PM Signed [facility] Follow up Clinic visit B BTC Team: -Jose Evans MD, Neurosurgery -SAV Rodriguez, Radiation Oncology -Patricia Enriquez MD, Neuro-Oncology DIAGNOSIS: MGMT unmethylated Glioblastoma. 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 He initially presented with anxiety-attack like episodes going back to January 2023 as well as a fall, without loss of consciousness but +trauma to head around 02/27/2023. On 03/16/2023, he presented to [facility] ED with word finding difficulty, report of one-time fever of 101 in February, anxiety, increased thirst and urination and was found to have a L temporal mass with midline subfalcine shift concerning for high grade glioma. He was afebrile with normal glucose level and electrolytes. He underwent gross total resection by Dr. Evans on 03/19/2023, revealing an MGMT unmethylated glioblastoma, WHO Grade 4. He was discharged on keppra 750mg BID and dexamethasone taper. He established care with Dr. Enriquez and given paroxysmal episodes of anxiety, he was concerned about temporal lobe epilepsy and advised lifelong AED to reduce seizure risk. The patient was exhibiting some fatigue and dullness, so a cross taper from keppra to vimpat, with goal of vimpat 150mg BID. The patient expressed interest in clinical trials and enrolled onto GCAR AGILE. He was randomized to the [id number] arm (cyclic peptide modulating tumor microenvironment). TREATMENT HISTORY Gross total resection [03/19/2023] [facility] Dr. Evans MGMT unmethylated Glioblastoma. L temporal GCAR AGILE, randomized to [id number] IV twice weekly arm + Standard concurrent chemotherapy and radiation (04/20- 05/29/2023) [facility] Dr. Joyce and Dr. Enriquez Adjuvant temozolomide PO D1-5 q 28 days C1 07/01/23, will start 07/03 150mg/m2 C2 07/27/23 C3 08/31/23 C4 09/21/23 C5 10/26/23 C6 11/23/23 C7 12/28/23 STOP ADJ TMZ as the clinical; trial calls for up to 6 cycles. For some reason the patient had an extra cycle of Adj TMZ. Adjuvant [id number] during Maintenance: Cycle 7 Week 1 - infusions on 12/14/2023 (D1) and 12/17/2023 (D4) Cycle 7 Week 2 - infusions on 12/21/2023 (D8) and 12/24/2023 (D11) Cycle 7 Week 3 - infusions on 12/28/2023 (D15) and 12/31/2023 (D18) Cycle 7 Week 4 - infusions on 01/05/2024 (D22) and 01/08/2024 (D25) Cycle 8 Week 5 - infusions on 01/11/2024 and 01/14/2024 02/08/2024: MRI shows progression 02/08/24 BTB Referrals to se Dr. Evans for possible surgery. If surgery offered, he can be enrolled in CASE 3322 clinical trial with methimazole + chemo. 02/18/24: Dr Evans recommended NO surgery. 02/26/24 Lomustine 90mg/m2 C#1 02/25-04/08/24 04/12/24 Tumor progression, increased CBV 04/14/2024 BTB Referrals to se Dr. Evans for possible surgery. The patient is also eligible, for CASE 3322 clinical trial with methimazole + chemo. 04/28/2024 Jose Evans MD since the patient, and recommended surgery. 04/28/2024 clinical trials team, saw the patient, the patient is eligible, for for CASE 3322 clinical trial with methimazole + chemo. Patient signed consent. Treatment plan: Pre-operative treatment Phase -Methimazole - Pre-Op period: 05/24/2024 to 05/27/2024 (last dose is DAY of surgery) -Dose level 2 (25 mg daily) Surgical resection 05/27/[address] 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 C1D1 (10-28 days after surgery) -Scheduled for 06/16/2024 (20 days post op) -Methimazole - Post-Op period: 05/27/2024- TBD -Dose level 2 (25 mg daily C1D1 lomustine 110 mg/m2 - 07/28/24 C2D1 lomustine -- planned for 09/07/24 08/22/2024 Brain MR - new enhancing nodules. 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 Important events the patient would hope to attend: November 28 Daughter graduates college December 10. Late Apr 29- wedding youngest step daughter Last Chemo: see above Current Steroids dose: N/A Current AED Dose: lacosamide (VIMPAT) 150 mg tab Take 1 tablet by mouth two times a day. 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 Evans; path = GBM ORTHOPEDICS SURGERY HX 1996 knee surgery SHX CRANIOTOMY Left 03/19/2023 Family History: FAMILY HISTORY Problem Relation Age of Onset Diabetes Father Coronary Artery Disease Father Stroke Father Breast Cancer Mother None Sister Anesthesia Problems No Family History Social History Tobacco Use Smoking status: Former Current packs/day: 1.00 Average packs/day: 1 pack/day for 4.0 years (4.0 ttl pk-yrs) Types: Cigarettes Smokeless tobacco: Never Vaping Use Vaping status: Never Used Substance Use Topics Alcohol use: Not Currently Comment: three beers a month - per pt 305628 Drug use: Never Allergies: Patient has no known allergies. Current Outpatient Medications Medication Sig lacosamide (VIMPAT) 150 mg tab Take 1 tablet by mouth two times a day. iv contrast (will be provided with radiology test) MRI Brain Inject, intravenously, once for 1 dose.No IV access, insert saline lock prior to beginning of sedation, infusion, injection of imaging exam.Discontinue saline lock post exam. If Pt. has a central line or IVAD, may access for administration according to line specific nursing protocol.Once exam is complete flush line and de-access according to line specific nursing protocol in the MR contrast administration guidelines link iv contrast (will be provided with radiology test) MRI Brain Inject, intravenously, once for 1 dose.No IV access, insert saline lock prior to beginning of sedation, infusion, injection of imaging exam.Discontinue saline lock post exam. If Pt. has a central line or IVAD, may access for administration according to line specific nursing protocol.Once exam is complete flush line and de-access according to line specific nursing protocol in the MR contrast administration guidelines link meclizine (ANTIVERT) 25 mg tab Take 1 tablet by mouth three times a day. valACYclovir (VALTREX) 1 gram tablet Take 1,000 mg by mouth three times a day. ondansetron (ZOFRAN) 8 mg tablet Take one hour prior to temozolomide prescription then every 8 hours as needed for nausea. temozolomide (TEMODAR) 180 mg capsule Fast for one hour after taking Zofran and then take ONE 180 mg capsule, plus ONE 140 mg and TWO 5 mg capsules to total 330 mg. Then, fast for one hour after taking. Take on days 1-5 of your 28 day cycle. Temozolomide 140 mg capsule Fast for one hour after taking Zofran and then take ONE 180 mg capsule, plus ONE 140 mg and TWO 5 mg capsules to total 330 mg. Then, fast for one hour after taking. Take on days 1-5 of your 28 day cycle. temozolomide (TEMODAR) 5 mg capsule Fast for one hour after taking Zofran and then take ONE 180 mg capsule, plus ONE 140 mg and TWO 5 mg capsules to total 330 mg. Then, fast for one hour after taking. Take on days 1-5 of your 28 day cycle. ondansetron (ZOFRAN) 8 mg tablet Take 1 tablet (8 mg) by mouth one hour before taking temozolomide dosing. Take on an empty stomach (Patient taking differently: Take 1 tablet (8 mg) by mouth one hour before taking temozolomide dosing. Take on an empty stomach) sennosides (SENNA ORAL) Take by mouth. DIETARY SUPPLEMENT,[facility] COMB14 ORAL Take by mouth. Biomega 1000mg containing vitamin E and pure anchovy medical supply, miscellaneous (MISCELLANEOUS MEDICAL SUPPLY [facility]) Neurotrophin acetaminophen (TYLENOL) 325 mg tablet 2 tablets by ORAL/FEEDING TUBE route every 4 hours as needed for pain. pantoprazole DR (PROTONIX) 20 mg tablet Take 1 tablet by mouth DAILY (6 AM). midazolam (NAYZILAM) 5 mg/spray (0.1 mL) nasal spray Use 1 [place] in the nose as needed for up to 10 days. May repeat dose in alternate nostril after 10 minutes based on response and tolerability. No current facility-administered medications for this visit. Review of systems: Constitutional: No recent fever or weight loss. Eyes: No history of glaucoma or cataracts. ENMT: No recent ear infection, nasal congestion, mouth sores or sore throat. CV: No history of chest pain, palpitations or leg swelling. Respiratory: No history of SOB, asthma or recent cough. Gastrointestinal: No history of nausea, vomiting, dysphagia or abdominal pain. Genitourinary: No history of hematuria or dysuria. Musculoskeletal: No complaint of arthritis, unstable gait or arm/leg weakness. Psychiatric: No history of hallucinations or depression or anxiety. ROS Neurological: No complaint of headache. No complaint of tinnitus. No complaint of decreased hearing. No complaint of diplopia. No complaints of decreased visual acuity. No complaint of arm/leg numbness. No problem with limb coordination. No complaint of syncope, seizures or disorientation. Objective Physical Exam: There were no vitals taken for this visit. GENERAL EXAM: General appearance: Well appearing, alert, in no acute distress Skin: Skin color, texture, turgor normal Oropharynx: No thrush noted. Lungs: Lungs clear to auscultation. No wheezing, rhonchi, rales Heart: RRR without murmur, gallop, or rubs. No ectopy Abdomen: Normal abdominal exam, Abdomen soft, non-tender. Bowel sounds normal. Extremities: No deformities, skin discoloration, clubbing or cyanosis. Good capillary refill, no edema to BLE. Harmony's sign negative. No pain to palpation. NEUROLOGICAL EXAM: Higher integrative functions: Oriented to person, place AND time. Attention Span and Concentration: Good. Language: Accurate naming of objects. Good comprehension. Fund of Knowledge: Good. 2nd CN: Full visual land. 3rd,4th,6th CN: Pupils equal, round, react to light, full extraocular movements. 5th CN: No decrease in facial sensation 7th CN: Facial muscles symmetric and strong. 8th CN: Hears finger rub well bilaterally. 9th CN: Gag reflex not tested 10th CN: Spontaneous palate movement, full and symmetric. 11th CN: Full strength in shoulder shrug. 12th CN: Tongue protrusion full and midline. Sensation: No decrease in sensation in upper or lower limbs to touch. Musculoskeletal: Gait steady. Tandem walk normal. Romberg negative. Motor: 5/5 RUE/RLE; 5/5 LUE/LLENormal muscle tone without atrophy in all limbs. Coordination: Rapid alternating movements LUE intact; RUE intact Reflexes: 1-2+ ALL limbs. Plantar response down going. Karnofsky performance status: 80 - Normal activity with effort, some signs or symptoms of disease. ECOG performance status: 1 - Restricted in physically strenuous activity but ambulatory and able to carry out work of a light or sedentary nature, e.g., light house work or office work. 05/18/2023 PHQ 2 and 9 Total Scores PHQ-2 Score 1 PHQ-9 Score 8 Labs: Latest Ref Rng AND Units 06/16/2024 07/14/2024 08/12/2024 CBC WBC 3.70 - 11.00 k/uL 9.46 4.83 4.93 RBC 4.20 - 6.00 m/uL 4.25 4.17 4.13 Hemoglobin 13.0 - 17.0 g/dL 13.9 13.6 13.4 Hematocrit 39.0 - 51.0 % 39.8 38.6 38.0 MCV 80.0 - 100.0 fL 93.6 92.6 92.0 MCH 26.0 - 34.0 pg 32.7 32.6 32.4 MCHC 30.5 - 36.0 g/dL 34.9 35.2 35.3 RDW-CV 11.5 - 15.0 % 14.5 14.7 15.9 Platelet Count 150 - 400 k/uL 171 220 164 MPV 9.0 - 12.7 fL 8.9 8.4 8.6 Baso% % 0.1 1.4 0.2 Abs Neut (ANC) 1.45 - 7.50 k/uL 7.97 3.01 3.83 Abs Lymph 1.00 - 4.00 k/uL 0.68 0.55 0.62 Abs Branch <0.87 k/uL 0.62 0.77 0.42 Abs Eosin <0.46 k/uL 0.10 0.40 0.03 Abs Baso <0.11 k/uL <0.03 0.07 <0.03 NRBC /100 WBC 0.0 0.0 0.0 Latest Ref Rng AND Units 06/16/2024 07/14/2024 08/12/2024 CMP Sodium 136 - 144 mmol/L 135 141 137 Potassium 3.7 - 5.1 mmol/L 4.0 4.0 4.2 Chloride 98 - 107 mmol/L 104 105 104 CO2 22 - 30 mmol/L 21 27 23 Glucose 74 - 99 mg/dL 97 105 112 BUN 9 - 24 mg/dL 23 7 15 Creatinine 0.73 - 1.22 mg/dL 1.05 0.88 1.02 EGFR >=60 mL/min/1.73m? 84 102 87 Protein, Total 6.3 - 8.0 g/dL 5.9 6.5 6.8 Albumin 3.9 - 4.9 g/dL 3.4 3.9 3.8 Calcium 8.5 - 10.2 mg/dL 8.2 9.1 9.2 Bilirubin, Total 0.2 - 1.3 mg/dL 0.6 0.5 0.3 AST 14 - 40 U/L 11 80 14 ALT 10 - 54 U/L 21 218 29 Alkaline Phosphatase 38 - 113 U/L 64 613 171 Final Pathology: SURGICAL PATHOLOGY: [id number] Order: [id number] Collected 03/19/2023 10:24 AM Status: Edited Result - FINAL Visible to patient: Yes (not seen) Dx: Brain tumor (HCC) 0 Result Notes Component FINAL DIAGNOSIS A, B. Brain, left temporal mass, biopsy and resection: - Morphologically consistent with high grade glioma. See comment. Diagnosis Comment CARLOS stained sections reveal a hypercellular infiltrating glioma with moderate to marked nuclear pleomorphism and increased mitoses (upto 4 per 10 high per field). Pseudopalisading necrosis and microvascular proliferation are identified. Immunohistochemical stains are performed at [facility] to better classify this lesion (block B1) and show the following in neoplastic cells: IDH1 R132H: neagtive (wildtype); ATRX: retained (wildtype); BRAF V600E: negative (wildtype); p53 strong nuclear positivity in up to 40%; Ki67 proliferative index up to 25%. Addendum This addendum is rendered to report the results of the following molecular studies: Targeted Oncology Panel: The oncogenic TERT promoter alteration, c.-124C>T (also known as C228T) was detected in this specimen; MGMT promoter methylation: not hypermethylated. 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 Addendum electronically signed by Krista Snow MD on 04/03/2023 at 9:13 AM Imaging: Results MRI BRAIN WO/W IVCON (Acc#[id number]) (Order [id number]) Patient Info Patient Name Sex BARRETT Rishabh Angel Conchita ([id number]) Male 1970 08/22/2024 2:02 PM - Radiology, Oru In Impression IMPRESSION: Slight further increase in size of enhancing nodule in the left mesial temporal lobe with surrounding FLAIR hyperintensity. Increasing enlargement is suspicious of neoplastic progression but continued follow-up is recommended. Continued increased size of extra-axial enhancing foci along the falx and over the left frontal convexity at the vertex. No new pathologic enhancement otherwise. New chronic appearing subdural hemorrhage measuring 11 mm in maximal thickness overlying the left parietal convexity with approximately 2 mm rightward midline shift. Redistribution of cystic hygroma, now measuring up to 4 mm in maximal thickness and predominantly along the left frontoparietal falx. 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 I reviewed the images with the patient. 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 Now with progressive disease per MRI 08/22/24 ISSUES: 1- GBM-MGMT promoter not hyper methylated. MRI of the brain from Jul 13, 2024 overall stable. -Continue CASE 3322 clinical trial with methimazole + chemo. -Continue methimazole per trial. -Lomustine 110 mg/M2 , dose capped 200 mg day cycle, per protocol. 3-gvyllytxmssf-qmcxddp nausea: -Use Zofran, prior/after chemo and as needed 3-Imaging surveillance: -Brain w and w/o contrast and perfusion - interval depending on BTB presentation, 08/29/24 2A-Clinic visits: -VV 1-2 days after BTB presentation. 3-Bone marrow suppression from chemotherapy: periodic CBC, every 4 weeks Also, CMP every 4 weeks. Other blood test, per clinical trial 4- Seizures: Since I saw him last, he has not had any events to suggest seizures (02/19/2024). -On lacosamide (Vimpat): Started on 04/05/23. Dose is 150 mg twice a day. -Lacosamide blood levels, Latest Reference Range AND Units 07/14/24 09:38 Lacosamide 2.2 - 19.8 ug/mL 10.6 Based on the above levels to continue on the same dose. 5-Seizure precautions: The patient is not to drive any motorized vehicle, and not to engage in activities that could place her or others in danger if she were to have a seizure. I also discussed the use of rescue medication for breakthrough seizures, using midazolam nasal spray (NS) to use it as needed (PRN) and discussed when to use it. I discussed the potential benefits and side effects, including tiredness, fatigue, and or sleepiness and if so, the patient is not to engage in activities that require to be fully alert. I have also provided written information for the patient's review. 6-He is to follow by her PCP for general medical care/coordination of care. 7-NOT ON STEROIDS 8-To see PCP for to define appropriate vaccinations above. 9-Potential for thromboembolism: to watch for potential DVT/Pulmonary Embolism, and if so to go to the ED/call 911. 10-End of life issues: Adv Dir in chart. -Patient discussed, this important aspect, of his diagnosis, that is, that he acknowledges, that this condition will end his life, at young age, and relatively soon and that he has goals, for the next year or so, that is, to attend, important milestones events of his children's, which will take place, in the next year or so. Currently,02/19/24 his children's are 20 and 21 years old. He has seen Dr. Lion, from palliative medicine will also give advice regarding his. 11-psychosocial issues: Patient asked, advised on how to approach, his current diagnosis and progressive disease, with his children who are 2020. We given some advice, how it could be helpful for his children to cope with his unfortunate condition. However, we recommended for him to seek attention from psychosocial oncology, and this Could be expanded to the family. He has seen Dr. Daniel Juárez from psychology and psychiatry, as well [facility] Jaclyn Guillory. 12-Hygroma on surgical site: MRI 07/13/24 reported as (excerpt/verbatim): enlarging left convexity CSF intensity collection measuring up to 1.2 cm causing mass effect and approximately 4 mm of midline shift to the right. I reviewed this with Dr. Evans. Not symptomatic, continue watching. No need for intervention form NSGY perspective. I saw the patient in collaboration with Lester Beckett RN [facility] clinical trials nurse. PLAN: -Present to Brain Tumor Board for 08/29/24 Reason: newly developed nodular enhancement. Opinion on surgery, re radiation or radiation, and systemic therapy, and clinical trial. Continue methimazole for now. -VV 1-2 days after BTB presentation. In the end the patient and family verbalized understanding of the above, they had questions which I believe I answered to their satisfaction and agreed with these recommendations and had no further questions or concerns for the moment, but I encourage them to call the [facility] Center with any questions or concerns. I spent a total of 40 minutes on the date of the service which included preparing to see the patient, at least 50% of [id number] patient care, completing clinical documentation, obtaining and/or reviewing separately obtained history, performing a medically appropriate examination, counseling and educating the patient/family/caregiver, ordering medications, tests, or procedures, communicating with other HCPs (not separately reported), independently interpreting results (not separately reported), communicating results to the patient/family/caregiver and care coordination (not separately reported). Patricia Enriquez MD [facility] Patient Care Team: -Jose Evans MD, Neurosurgery, [facility], [facility], [facility] Cyndee Joyce MD, PhD, Radiation Oncology, [facility], [facility]. Jaclyn Guillory LSW as Pull Worker (Hematology/Oncology) Soraida Simmons RN (Hospice AND Palliative Medicine) Willy Lion MD (Hospice AND Palliative Medicine) Rupa Khoury APRN.CNP (Hospice AND Palliative Medicine) Daniel Juárez PSYD, Psychology, [facility] Tanvi Stewart MA 08/28/2024 11:22 PM Signed Additional intake questions: Has the patient had fever, nausea, vomiting, diarrhea, constipation, fatigue for > 1 week? Yes, nausea and fatigue Does the patient have a decreased appetite? No Does patient want to see a Outside Solar Sales Consultant? No (yes to any of above refer patient to schedulers for dietitian appointment) ) Does patient have any new or increased numbness or tingling of extremities? No Is patient interested in fertility information? No Does patient need any prescription refills? No Does patient have an advanced directive in place? Yes, copies are in Epic Electronically Signed By: Tanvi Stewart MA Referring Provider: PATRICIA ENRIQUEZ [[id number]] Allergies As of Date: 08/22/2024 (No Known Allergies) Date Reviewed: 08/22/2024 Reviewed by: Tanvi Stewart MA - Fully Assessed Reason for Visit: Established Patient [175] Visit Diagnoses:High grade glioma not classifiable by WHO criteria (HCC) [C71.9] At risk of seizures [Z91.89] Seizures (HCC) [R56.9] Order(s):lacosamide (VIMPAT) 150 mg tabTake 1 tablet by mouth two times a day.Disp: 180 tabletRfl: 4 Prescriptions as of 08/28/2024 - lacosamide (VIMPAT) 150 mg tab Take 1 tablet by mouth two times a day. - methIMAzole (TAPAZOLE) 5 mg tablet Take TWO 10 mg tablets and ONE 5 mg tablet for a total dose of 25 mg, daily. - methIMAzole (TAPAZOLE) 10 mg tablet Take TWO 10 mg tablets and ONE 5 mg tablet for a total dose of 25 mg, daily. - triamcinolone (KENALOG) 0.025 % cream Apply to affected area two times a day. - traZODone (DESYREL) 50 mg tablet Take 1 tablet by mouth daily at bedtime. - lomustine (GLEOSTINE) 100 mg capsule Take one 8mg Zofran on an empty stomach in the evening. Wait ONE hour. Take TWO 100mg capsule(s) Lomustine by mouth for a total dose of 200mg. Take one 8 mg Zofran twenty-four hours later. Take on Day 1 of each 42 day cycle. - predniSONE (DELTASONE) 10 mg tablet Day #1 - 6 tablets PO then Day #2 - 5 tablets PO then Day #3 - 4 tablets PO then Day #4 - 3 tablets PO then Day #5 - 2 tablets PO then Day #6 - 1 tablet PO - ondansetron (ZOFRAN) 8 mg tablet Take one tablet by mouth on an empty stomach in the evening one hour prior to chemo. Then take one tablet 24 hours after chemo. May repeat dose every 8-12 hours if needed to prevent nausea - meclizine (ANTIVERT) 25 mg tab Take 1 tablet by mouth three times a day. - valACYclovir (VALTREX) 1 gram tablet Take 1,000 mg by mouth three times a day. - midazolam (NAYZILAM) 5 mg/spray (0.1 mL) nasal spray Use 1 [place] in the nose as needed for up to 10 days. May repeat dose in alternate nostril after 10 minutes based on response and tolerability. - sennosides (SENNA ORAL) Take by mouth. - DIETARY SUPPLEMENT,MISC COMB14 ORAL Take by mouth. Biomega 1000mg containing vitamin E and pure anchovy - medical supply, miscellaneous (MISCELLANEOUS MEDICAL SUPPLY [facility]) Neurotrophin - acetaminophen (TYLENOL) 325 mg tablet 2 tablets by ORAL/FEEDING TUBE route every 4 hours as needed for pain. - pantoprazole DR (PROTONIX) 20 mg tablet Take 1 tablet by mouth DAILY (6 AM). Problem List As Of Date 08/22/2024 Noted Resolved Chest pain [R07.9] 04/25/2010 05/26/2024 Brain mass [G93.89] 03/17/2023 11/17/2023 Obesity, Class I, BMI 30-34.9 [E66.811] 03/17/2023 Brain compression (HCC) [G93.5] 03/20/2023 S/P brain surgery [Z98.890] 03/20/2023 11/17/2023 At risk for seizures [Z91.89] 03/20/2023 Cerebral edema (HCC) [G93.6] 03/20/2023 GBM (glioblastoma multiforme) (HCC) [C71.9] 04/07/2023 Syncope, unspecified syncope type [R55] 11/01/2023 11/03/2023 Examination of participant in clinical trial [Z*11/05/2023 11/17/2023 Forehead pain [R51.9] 11/05/2023 PONV (postoperative nausea and vomiting) [R11.2*05/26/2024 Acute post-operative pain [G89.18] 05/29/2024 Prescriptions ordered this encounter Disp Refills Start End LACOSAMIDE 150 MG TABLET 180 * 4 08/22/2024 11/15/2025 Route: ORAL Sig: Take 1 tablet by mouth two times a day. Medications Discontinued During This Encounter Prescriptions - lacosamide (VIMPAT) 150 mg tab (Discontinued) Take 1 tablet by mouth two times a day. Encounter Status:Closed by PATRICIA ENRIQUEZ on 08/28/24 PROGRESS Observed: 08/22/2024 1:00 PM Status: COMPLETED Source: [facility] HNO ID: [id number] Author: PATRICIA ENRIQUEZ MD Service: ? Author Type: Physician Type: Progress Notes Filed: 08/28/2024 23:22 Note Text: [facility] Follow up Clinic visit B BTC Team: -Jose Evans MD, Neurosurgery -SAV Rodriguez, Radiation Oncology -Patricia Enriquez MD, Neuro-Oncology DIAGNOSIS: MGMT unmethylated Glioblastoma. 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 He initially presented with anxiety-attack like episodes going back to January 2023 as well as a fall, without loss of consciousness but +trauma to head around 02/27/2023. On 03/16/2023, he presented to [facility] ED with word finding difficulty, report of one-time fever of 101 in February, anxiety, increased thirst and urination and was found to have a L temporal mass with midline subfalcine shift concerning for high grade glioma. He was afebrile with normal glucose level and electrolytes. He underwent gross total resection by Dr. Evans on 03/19/2023, revealing an MGMT unmethylated glioblastoma, WHO Grade 4. He was discharged on keppra 750mg BID and dexamethasone taper. He established care with Dr. Enriquez and given paroxysmal episodes of anxiety, he was concerned about temporal lobe epilepsy and advised lifelong AED to reduce seizure risk. The patient was exhibiting some fatigue and dullness, so a cross taper from keppra to vimpat, with goal of vimpat 150mg BID. The patient expressed interest in clinical trials and enrolled onto [facility]. He was randomized to the [id number] arm (cyclic peptide modulating tumor microenvironment). TREATMENT HISTORY Gross total resection [03/19/2023] [facility] Dr. Evans MGMT unmethylated Glioblastoma. L temporal [facility] AGILE, randomized to [id number] IV twice weekly arm + Standard concurrent chemotherapy and radiation (04/20- 05/29/2023) [facility] Dr. Joyce and Dr. Enriquez Adjuvant temozolomide PO D1-5 q 28 days C1 07/01/23, will start 07/03 150mg/m2 C2 07/27/23 C3 08/31/23 C4 09/21/23 C5 10/26/23 C6 11/23/23 C7 12/28/23 STOP ADJ TMZ as the clinical; trial calls for up to 6 cycles. For some reason the patient had an extra cycle of Adj TMZ. Adjuvant [id number] during Maintenance: Cycle 7 Week 1 - infusions on 12/14/2023 (D1) and 12/17/2023 (D4) Cycle 7 Week 2 - infusions on 12/21/2023 (D8) and 12/24/2023 (D11) Cycle 7 Week 3 - infusions on 12/28/2023 (D15) and 12/31/2023 (D18) Cycle 7 Week 4 - infusions on 01/05/2024 (D22) and 01/08/2024 (D25) Cycle 8 Week 5 - infusions on 01/11/2024 and 01/14/2024 02/08/2024: MRI shows progression 02/08/24 BTB Referrals to se Dr. Evans for possible surgery. If surgery offered, he can be enrolled in CASE 3322 clinical trial with methimazole + chemo. 02/18/24: Dr Evans recommended NO surgery. 02/26/24 Lomustine 90mg/m2 C#1 02/25-04/08/24 04/12/24 Tumor progression, increased CBV 04/14/2024 BTB Referrals to se Dr. Evans for possible surgery. The patient is also eligible, for CASE 3322 clinical trial with methimazole + chemo. 04/28/2024 Jose Evans MD since the patient, and recommended surgery. 04/28/2024 clinical trials team, saw the patient, the patient is eligible, for for CASE 3322 clinical trial with methimazole + chemo. Patient signed consent. Treatment plan: Pre-operative treatment Phase -Methimazole - Pre-Op period: 05/24/2024 to 05/27/2024 (last dose is DAY of surgery) -Dose level 2 (25 mg daily) Surgical resection 05/27/[address] 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 C1D1 (10-28 days after surgery) -Scheduled for 06/16/2024 (20 days post op) -Methimazole - Post-Op period: 05/27/2024- TBD -Dose level 2 (25 mg daily C1D1 lomustine 110 mg/m2 - 07/28/24 C2D1 lomustine -- planned for 09/07/24 08/22/2024 Brain MR - new enhancing nodules. 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 Important events the patient would hope to attend: November 28 Daughter graduates college December 10. Late Apr 29- wedding youngest step daughter Last Chemo: see above Current Steroids dose: N/A Current AED Dose: lacosamide (VIMPAT) 150 mg tab Take 1 tablet by mouth two times a day. 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 Evans; path = GBM ORTHOPEDICS SURGERY HX 1996 knee surgery SHX CRANIOTOMY Left 03/19/2023 Family History: FAMILY HISTORY Problem Relation Age of Onset Diabetes Father Coronary Artery Disease Father Stroke Father Breast Cancer Mother None Sister Anesthesia Problems No Family History Social History Tobacco Use Smoking status: Former Current packs/day: 1.00 Average packs/day: 1 pack/day for 4.0 years (4.0 ttl pk-yrs) Types: Cigarettes Smokeless tobacco: Never Vaping Use Vaping status: Never Used Substance Use Topics Alcohol use: Not Currently Comment: three beers a month - per pt [id number] Drug use: Never Allergies: Patient has no known allergies. Current Outpatient Medications Medication Sig lacosamide (VIMPAT) 150 mg tab Take 1 tablet by mouth two times a day. iv contrast (will be provided with radiology test) MRI Brain Inject, intravenously, once for 1 dose.No IV access, insert saline lock prior to beginning of sedation, infusion, injection of imaging exam.Discontinue saline lock post exam. If Pt. has a central line or IVAD, may access for administration according to line specific nursing protocol.Once exam is complete flush line and de-access according to line specific nursing protocol in the MR contrast administration guidelines link iv contrast (will be provided with radiology test) MRI Brain Inject, intravenously, once for 1 dose.No IV access, insert saline lock prior to beginning of sedation, infusion, injection of imaging exam.Discontinue saline lock post exam. If Pt. has a central line or IVAD, may access for administration according to line specific nursing protocol.Once exam is complete flush line and de-access according to line specific nursing protocol in the MR contrast administration guidelines link meclizine (ANTIVERT) 25 mg tab Take 1 tablet by mouth three times a day. valACYclovir (VALTREX) 1 gram tablet Take 1,000 mg by mouth three times a day. ondansetron (ZOFRAN) 8 mg tablet Take one hour prior to temozolomide prescription then every 8 hours as needed for nausea. temozolomide (TEMODAR) 180 mg capsule Fast for one hour after taking Zofran and then take ONE 180 mg capsule, plus ONE 140 mg and TWO 5 mg capsules to total 330 mg. Then, fast for one hour after taking. Take on days 1-5 of your 28 day cycle. Temozolomide 140 mg capsule Fast for one hour after taking Zofran and then take ONE 180 mg capsule, plus ONE 140 mg and TWO 5 mg capsules to total 330 mg. Then, fast for one hour after taking. Take on days 1-5 of your 28 day cycle. temozolomide (TEMODAR) 5 mg capsule Fast for one hour after taking Zofran and then take ONE 180 mg capsule, plus ONE 140 mg and TWO 5 mg capsules to total 330 mg. Then, fast for one hour after taking. Take on days 1-5 of your 28 day cycle. ondansetron (ZOFRAN) 8 mg tablet Take 1 tablet (8 mg) by mouth one hour before taking temozolomide dosing. Take on an empty stomach (Patient taking differently: Take 1 tablet (8 mg) by mouth one hour before taking temozolomide dosing. Take on an empty stomach) sennosides (SENNA ORAL) Take by mouth. DIETARY SUPPLEMENT,MISC COMB14 ORAL Take by mouth. Biomega 1000mg containing vitamin E and pure anchovy medical supply, miscellaneous (MISCELLANEOUS MEDICAL SUPPLY MISC) Neurotrophin acetaminophen (TYLENOL) 325 mg tablet 2 tablets by ORAL/FEEDING TUBE route every 4 hours as needed for pain. pantoprazole DR (PROTONIX) 20 mg tablet Take 1 tablet by mouth DAILY (6 AM). midazolam (NAYZILAM) 5 mg/spray (0.1 mL) nasal spray Use 1 [place] in the nose as needed for up to 10 days. May repeat dose in alternate nostril after 10 minutes based on response and tolerability. No current facility-administered medications for this visit. Review of systems: Constitutional: No recent fever or weight loss. Eyes: No history of glaucoma or cataracts. ENMT: No recent ear infection, nasal congestion, mouth sores or sore throat. CV: No history of chest pain, palpitations or leg swelling. Respiratory: No history of SOB, asthma or recent cough. Gastrointestinal: No history of nausea, vomiting, dysphagia or abdominal pain. Genitourinary: No history of hematuria or dysuria. Musculoskeletal: No complaint of arthritis, unstable gait or arm/leg weakness. Psychiatric: No history of hallucinations or depression or anxiety. ROS Neurological: No complaint of headache. No complaint of tinnitus. No complaint of decreased hearing. No complaint of diplopia. No complaints of decreased visual acuity. No complaint of arm/leg numbness. No problem with limb coordination. No complaint of syncope, seizures or disorientation. Objective Physical Exam: There were no vitals taken for this visit. GENERAL EXAM: General appearance: Well appearing, alert, in no acute distress Skin: Skin color, texture, turgor normal Oropharynx: No thrush noted. Lungs: Lungs clear to auscultation. No wheezing, rhonchi, rales Heart: RRR without murmur, gallop, or rubs. No ectopy Abdomen: Normal abdominal exam, Abdomen soft, non-tender. Bowel sounds normal. Extremities: No deformities, skin discoloration, clubbing or cyanosis. Good capillary refill, no edema to BLE. Harmony's sign negative. No pain to palpation. NEUROLOGICAL EXAM: Higher integrative functions: Oriented to person, place AND time. Attention Span and Concentration: Good. Language: Accurate naming of objects. Good comprehension. Fund of Knowledge: Good. 2nd CN: Full visual land. 3rd,4th,6th CN: Pupils equal, round, react to light, full extraocular movements. 5th CN: No decrease in facial sensation 7th CN: Facial muscles symmetric and strong. 8th CN: Hears finger rub well bilaterally. 9th CN: Gag reflex not tested 10th CN: Spontaneous palate movement, full and symmetric. 11th CN: Full strength in shoulder shrug. CN: Tongue protrusion full and midline. Sensation: No decrease in sensation in upper or lower limbs to touch. Musculoskeletal: Gait steady. Tandem walk normal. Romberg negative. Motor: 5/5 RUE/RLE; 5/5 LUE/LLENormal muscle tone without atrophy in all limbs. Coordination: Rapid alternating movements LUE intact; RUE intact Reflexes: 1-2+ ALL limbs. Plantar response down going. Karnofsky performance status: 80 - Normal activity with effort, some signs or symptoms of disease. ECOG performance status: 1 - Restricted in physically strenuous activity but ambulatory and able to carry out work of a light or sedentary nature, e.g., light house work or office work. 05/18/2023 PHQ 2 and 9 Total Scores PHQ-2 Score 1 PHQ-9 Score 8 Labs: Latest Ref Rng AND Units 06/16/2024 07/14/2024 08/12/2024 CBC WBC 3.70 - 11.00 k/uL 9.46 4.83 4.93 RBC 4.20 - 6.00 m/uL 4.25 4.17 4.13 Hemoglobin 13.0 - 17.0 g/dL 13.9 13.6 13.4 Hematocrit 39.0 - 51.0 % 39.8 38.6 38.0 MCV 80.0 - 100.0 fL 93.6 92.6 92.0 MCH 26.0 - 34.0 pg 32.7 32.6 32.4 MCHC 30.5 - 36.0 g/dL 34.9 35.2 35.3 RDW-CV 11.5 - 15.0 % 14.5 14.7 15.9 Platelet Count 150 - 400 k/uL 171 220 164 MPV 9.0 - 12.7 fL 8.9 8.4 8.6 Baso% % 0.1 1.4 0.2 Abs Neut (ANC) 1.45 - 7.50 k/uL 7.97 3.01 3.83 Abs Lymph 1.00 - 4.00 k/uL 0.68 0.55 0.62 Abs Branch <0.87 k/uL 0.62 0.77 0.42 Abs Eosin <0.46 k/uL 0.10 0.40 0.03 Abs Baso <0.11 k/uL <0.03 0.07 <0.03 NRBC /100 WBC 0.0 0.0 0.0 Latest Ref Rng AND Units 06/16/2024 07/14/2024 08/12/2024 CMP Sodium 136 - 144 mmol/L 135 141 137 Potassium 3.7 - 5.1 mmol/L 4.0 4.0 4.2 Chloride 98 - 107 mmol/L 104 105 104 CO2 22 - 30 mmol/L 21 27 23 Glucose 74 - 99 mg/dL 97 105 112 BUN 9 - 24 mg/dL 23 7 15 Creatinine 0.73 - 1.22 mg/dL 1.05 0.88 1.02 EGFR >=60 mL/min/1.73m? 84 102 87 Protein, Total 6.3 - 8.0 g/dL 5.9 6.5 6.8 Albumin 3.9 - 4.9 g/dL 3.4 3.9 3.8 Calcium 8.5 - 10.2 mg/dL 8.2 9.1 9.2 Bilirubin, Total 0.2 - 1.3 mg/dL 0.6 0.5 0.3 AST 14 - 40 U/L 11 80 14 ALT 10 - 54 U/L 21 218 29 Alkaline Phosphatase 38 - 113 U/L 64 613 171 Final Pathology: SURGICAL PATHOLOGY: [id number] Order: [id number] Collected 03/19/2023 10:24 AM Status: Edited Result - FINAL Visible to patient: Yes (not seen) Dx: Brain tumor (HCC) 0 Result Notes Component FINAL DIAGNOSIS A, B. Brain, left temporal mass, biopsy and resection: - Morphologically consistent with high grade glioma. See comment. Diagnosis Comment CARLOS stained sections reveal a hypercellular infiltrating glioma with moderate to marked nuclear pleomorphism and increased mitoses (upto 4 per 10 high per field). Pseudopalisading necrosis and microvascular proliferation are identified. Immunohistochemical stains are performed at [facility] to better classify this lesion (block B1) and show the following in neoplastic cells: IDH1 R132H: neagtive (wildtype); ATRX: retained (wildtype); BRAF V600E: negative (wildtype); p53 strong nuclear positivity in up to 40%; Ki67 proliferative index up to 25%. Addendum This addendum is rendered to report the results of the following molecular studies: Targeted Oncology Panel: The oncogenic TERT promoter alteration, c.-124C>T (also known as C228T) was detected in this specimen; MGMT promoter methylation: not hypermethylated. 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 Addendum electronically signed by Krista Snow MD on 04/03/2023 at 9:13 AM Imaging: Results MRI BRAIN WO/W IVCON (Acc#[id number]) (Order [id number]) Patient Info Patient Name Sex BARRETT RishabhAngel ([id number]) Male 1970 08/22/2024 2:02 PM - Radiology, O[place] In Impression IMPRESSION: Slight further increase in size of enhancing nodule in the left mesial temporal lobe with surrounding FLAIR hyperintensity. Increasing enlargement is suspicious of neoplastic progression but continued follow-up is recommended. Continued increased size of extra-axial enhancing foci along the falx and over the left frontal convexity at the vertex. No new pathologic enhancement otherwise. New chronic appearing subdural hemorrhage measuring 11 mm in maximal thickness overlying the left parietal convexity with approximately 2 mm rightward midline shift. Redistribution of cystic hygroma, now measuring up to 4 mm in maximal thickness and predominantly along the left frontoparietal falx. 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 I reviewed the images with the patient. 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 Now with progressive disease per MRI 08/22/24 ISSUES: 1- GBM-MGMT promoter not hyper methylated. MRI of the brain from Jul 13, 2024 overall stable. -Continue CASE 3322 clinical trial with methimazole + chemo. -Continue methimazole per trial. -Lomustine 110 mg/M2 , dose capped 200 mg 1/ day cycle, per protocol. 2-rgyajlmefjif-tctjxqh nausea: -Use Zofran, prior/after chemo and as needed 3-Imaging surveillance: -Brain w and w/o contrast and perfusion - interval depending on BTB presentation, 08/29/24 2A-Clinic visits: -VV 1-2 days after BTB presentation. 3-Bone marrow suppression from chemotherapy: periodic CBC, every 4 weeks Also, CMP every 4 weeks. Other blood test, per clinical trial 4- Seizures: Since I saw him last, he has not had any events to suggest seizures (02/19/2024). -On lacosamide (Vimpat): Started on 04/05/23. Dose is 150 mg twice a day. -Lacosamide blood levels, Latest Reference Range AND Units 07/14/24 09:38 Lacosamide 2.2 - 19.8 ug/mL 10.6 Based on the above levels to continue on the same dose. 5-Seizure precautions: The patient is not to drive any motorized vehicle, and not to engage in activities that could place her or others in danger if she were to have a seizure. I also discussed the use of rescue medication for breakthrough seizures, using midazolam nasal spray (NS) to use it as needed (PRN) and discussed when to use it. I discussed the potential benefits and side effects, including tiredness, fatigue, and or sleepiness and if so, the patient is not to engage in activities that require to be fully alert. I have also provided written information for the patient's review. 6-He is to follow by her PCP for general medical care/coordination of care. 7-NOT ON STEROIDS 8-To see PCP for to define appropriate vaccinations above. 9-Potential for thromboembolism: to watch for potential DVT/Pulmonary Embolism, and if so to go to the ED/call 911. 10-End of life issues: Adv Dir in chart. -Patient discussed, this important aspect, of his diagnosis, that is, that he acknowledges, that this condition will end his life, at young age, and relatively soon and that he has goals, for the next year or so, that is, to attend, important milestones events of his children's, which will take place, in the next year or so. Currently,02/19/24 his children's are 20 and 21 years old. He has seen Dr. Lion, from palliative medicine will also give advice regarding his. 11-psychosocial issues: Patient asked, advised on how to approach, his current diagnosis and progressive disease, with his children who are 2020. We given some advice, how it could be helpful for his children to cope with his unfortunate condition. However, we recommended for him to seek attention from psychosocial oncology, and this Could be expanded to the family. He has seen Dr. Daniel Juárez from psychology and psychiatry, as well FAMILY SERVICES SPECIALIST Jaclyn Guillory. 12-Hygroma on surgical site: MRI 07/13/24 reported as (excerpt/verbatim): enlarging left convexity CSF intensity collection measuring up to 1.2 cm causing mass effect and approximately 4 mm of midline shift to the right. I reviewed this with Dr. Evans. Not symptomatic, continue watching. No need for intervention form NSGY perspective. I saw the patient in collaboration with Lester Beckett RN [facility] clinical trials nurse. PLAN: -Present to Brain Tumor Board for 08/29/24 Reason: newly developed nodular enhancement. Opinion on surgery, re radiation or radiation, and systemic therapy, and clinical trial. Continue methimazole for now. -VV 1-2 days after BTB presentation. In the end the patient and family verbalized understanding of the above, they had questions which I believe I answered to their satisfaction and agreed with these recommendations and had no further questions or concerns for the moment, but I encourage them to call the [facility] Center with any questions or concerns. I spent a total of 40 minutes on the date of the service which included preparing to see the patient, at least 50% of [id number]-dbok patient care, completing clinical documentation, obtaining and/or reviewing separately obtained history, performing a medically appropriate examination, counseling and educating the patient/family/caregiver, ordering medications, tests, or procedures, communicating with other HCPs (not separately reported), independently interpreting results (not separately reported), communicating results to the patient/family/caregiver and care coordination (not separately reported). Patricia Enriquez MD [facility] Patient Care Team: -Jose Evans MD, Neurosurgery, [facility], [facility], [facility] Cyndee Joyce MD, PhD, Radiation Oncology, [facility], [facility], [facility]. Jaclyn Guillory, FAMILY SERVICES SPECIALIST as Pull Worker (Hematology/Oncology) Simmons, Soraida, RN (Hospice AND Palliative Medicine) Willy Lion MD (Hospice AND Palliative Medicine) Rupa Khoury APRN.CNP (Hospice AND Palliative Medicine) Daniel Juárez PSYD, Psychology, [facility] MRI BRAIN WO/W IVCON Observed: 12:12 PM Status: F Source: [facility] * * *Final Report* * * DATE OF EXAM: Aug 22 2024 12:12PM QBM [id number] - MRI BRAIN WO/W IVCON / PROCEDURE REASON: GBM (glioblastoma multiforme) (HCC) * * * * Physician Interpretation * * * * EXAMINATION: MRI BRAIN WO/W IVCON HISTORY: Glioblastoma, initially resected on 03/19/2023 with reresection on 05/27/2024 and pathology showing recurrent glioblastoma. Status post chemoradiation. TECHNIQUE: Routine brain MRI protocol without contrast including diffusion images. MR perfusion study was performed of the entire brain following bolus intravenous administration of gadolinium utilizing dynamic susceptibility-weighted contrast-enhanced acquisition. MQ: [id number]_2 Contrast: 20 mL Dotarem IV COMPARISON: Multiple brain MRI most recently 07/13/2024 RESULT: Postprocedural Change: Left-sided pterional craniotomy with pseudomeningocele largely superficial to the craniotomy measuring 67 x 15 mm (AP x TV) as well as a small component immediately deep to the craniotomy. The superficial component previously measured 62 x 10 mm (AP x TV). Resection cavity in the anterior left middle cranial fossa. Acute Change: No diffusion restriction to suggest acute infarct. Hemorrhage: Probable tiny capillary telangiectasia in the right caudate evidence by focus of susceptibility dephasing artifact and blush of enhancement, unchanged. Mass Lesion / Mass Effect: Increased T2/FLAIR hyperintensity in the left amygdala and residual anterior left temporal lobe adjacent to the resection cavity compared to 07/13/2024. Unchanged 6 x 9 mm (AP x TV) enhancing nodule in the left amygdala. New chronic appearing subdural hemorrhage measuring 11 mm in maximal thickness overlying the left frontoparietal convexity. Additional redistribution of cystic hygroma, now measuring 4 mm in maximal thickness and predominantly along the left frontoparietal falx. 2 mm rightward midline shift. Dural based enhancing masses along the left anterior falx measuring up to 5 mm as well as an additional dural based enhancing lesion overlying the left superior frontal lobe measuring up to 6 mm, larger compared to 07/13/2024 and new since 04/12/2024. Previously imaged enhancement in the left basal ganglia is not identified on the current study and was likely artifactual. Perfusion: Adequate perfusion imaging quality with full bolus capture, negligible patient motion, and only minor confounding susceptibility effect. There is some CBV elevation in the vicinity of the enhancing nodule in the mesial left temporal lobe, however location of the stability to vascular structures makes it difficult to assess this region. Chronic Change: None. Parenchyma: Mild parenchymal volume loss for age. Ventricles: Partial effacement of the left lateral ventricle. Otherwise ventricular enlargement concordant with the degree of parenchymal volume loss. Skull Base: Grossly normal pituitary region. Normal craniocervical junction. No marrow replacing process. Vasculature: Patent major intracranial arterial structures and dural venous sinuses. Other: Grossly clear imaged paranasal sinuses. Clear mastoid air cells. Unremarkable orbits. IMPRESSION: Slight further increase in size of enhancing nodule in the left mesial temporal lobe with surrounding FLAIR hyperintensity. Increasing enlargement is suspicious of neoplastic progression but continued follow-up is recommended. Continued increased size of extra-axial enhancing foci along the falx and over the left frontal convexity at the vertex. No new pathologic enhancement otherwise. New chronic appearing subdural hemorrhage measuring 11 mm in maximal thickness overlying the left parietal convexity with approximately 2 mm rightward midline shift. Redistribution of cystic hygroma, now measuring up to 4 mm in maximal thickness and predominantly along the left frontoparietal falx. 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 Call Worker Person: EMILI Transcribe Date/Time: Aug 22 2024 12:15P Dictated by : AMBREEN FERNANDEZ MD This examination was interpreted and the report reviewed and electronically signed by: BAN RITCHIE DO on Aug 22 2024 2:00PM EST [id number] PROGRESS Observed: 08/22/2024 11:00 AM Status: COMPLETED Source: [facility] HNO ID: [id number] Author: АННА DE LEON RN Service: ? Author Type: Registered Nurse Type: Progress Notes Filed: 08/22/2024 11:25 Note Text: Radiology Service Progress Note DATE OF SERVICE: August 22, 2024 TIME: 11:14 AM PATIENT WEIGHT: 220LBS PATIENT IDENTITY VERIFICATION COMPLETED USING TWO (2) STANDARD IDENTIFIERS: Name and Date of confirmed by patient verbally and Name and Date of confirmed by identification band. FALL SCREENING: Has the patient had 2 falls in the last year or 1 fall with injury or currently using an Ambulatory Assistive Device (Walker, Cane, Wheelchair, Crutches, etc.)? No PATIENT GENDER DATA: Assigned male at ALLERGIES: Reviewed and unchanged CONTRAST ALLERGY: No EXAM: MRI - CONTRAST TYPE: GROUP II IV SITE: Ambulatory: A power injectable Mediport was accessed in the Right chest with a 0.75 inch 20 gauge needle. Blood Return, Flushed easily with normal saline, Good Blood Return Post Injection, Flushed with 20 cc saline and No Complications IV SITE APPEARANCE: Clean,Dry and Intact SIGNATURE: Анна De Leon RN PATIENT NAME: Angel Keating DATE: August 22, 2024 TIME: 11:14 AM PROGRESS Observed: 08/22/2024 11:00 AM Status: COMPLETED Source: [facility] ID: [id number] Author: KARLA PASCAL RT(Keegan) Service: Radiology Author Type: Technologist Type: Progress Notes Filed: 08/22/2024 11:41 Note Text: Radiology Service Progress Note PATIENT NAME: Angel Keating DATE OF SERVICE: August 22, 2024 TIME: 11:40 AM PATIENT IDENTITY VERIFICATION COMPLETED USING TWO (2) IDENTIFIERS: Name and Date of confirmed by patient verbally and Name and Date of confirmed by identification band. FALL SCREENING: Has the patient had 2 falls in the last year or 1 fall with injury or currently using an Ambulatory Assistive Device (Walker, Cane, Wheelchair, Crutches, etc.)? No PATIENT GENDER DATA: Assigned male at PATIENT RELEVANT IMPLANT DATA REVIEWED: Yes BARD PORT 3T 3,000G/CM PATIENT PRESENTS WITH AN IMPLANTABLE OR ATTACHED PLATE FINISHER: Yes Other BARD PORT 3T 3,000G/CM RADIOLOGY DEPARTMENT: MR; Exam(s) Completed: Head: Routine Brain PERIPHERAL IV DATA: Site assessment: Clean,Dry and Intact, Site disposition Left in for next appointment SIGNED BY: RT Princess(R) August 22, 2024 11:40 AM [facility] Observed: 08/22/2024 12:00 AM Status: COMPLETED Source: [facility] ANGEL KEATING ([id number]) 1970 M Date Time Provider Department 08/22/24 NADEEN BECKETT [facility] During your visit today, we recorded the following information about you: Nadeen Beckett RN 08/22/2024 3:26 PM Signed IRB#: [id number] Case 3322 - Targeting Transsulfuration via Suppression of Thyroid Hormone Signaling in Progressive Glioblastoma; Modified Phase 1/2 and Pharmacodynamic Trial of Methimazole in Patients with Progressive WHO Grade 4 Glioblastoma Patient had a short interval MRI today at the request of Dr. Enriquez. Patient scans are concerning and will be placed on Thursday08/29/2024 Tumorboard for review, per Dr. Enriquez. Allergies As of Date: 08/22/2024 (No Known Allergies) Date Reviewed: 08/22/2024 Reviewed by: Tanvi Stewart MA - Fully Assessed Prescriptions as of 08/22/2024 - lacosamide (VIMPAT) 150 mg tab Take 1 tablet by mouth two times a day. - methIMAzole (TAPAZOLE) 5 mg tablet Take TWO 10 mg tablets and ONE 5 mg tablet for a total dose of 25 mg, daily. - methIMAzole (TAPAZOLE) 10 mg tablet Take TWO 10 mg tablets and ONE 5 mg tablet for a total dose of 25 mg, daily. - triamcinolone (KENALOG) 0.025 % cream Apply to affected area two times a day. - traZODone (DESYREL) 50 mg tablet Take 1 tablet by mouth daily at bedtime. - lomustine (GLEOSTINE) 100 mg capsule Take one 8mg Zofran on an empty stomach in the evening. Wait ONE hour. Take TWO 100mg capsule(s) Lomustine by mouth for a total dose of 200mg. Take one 8 mg Zofran twenty-four hours later. Take on Day 1 of each 42 day cycle. - predniSONE (DELTASONE) 10 mg tablet Day #1 - 6 tablets PO then Day #2 - 5 tablets PO then Day #3 - 4 tablets PO then Day #4 - 3 tablets PO then Day #5 - 2 tablets PO then Day #6 - 1 tablet PO - diazePAM (VALIUM) 10 mg tablet Take 1 tablet by mouth at bedtime as needed for sedation for up to 30 days. - ondansetron (ZOFRAN) 8 mg tablet Take one tablet by mouth on an empty stomach in the evening one hour prior to chemo. Then take one tablet 24 hours after chemo. May repeat dose every 8-12 hours if needed to prevent nausea - meclizine (ANTIVERT) 25 mg tab Take 1 tablet by mouth three times a day. - valACYclovir (VALTREX) 1 gram tablet Take 1,000 mg by mouth three times a day. - midazolam (NAYZILAM) 5 mg/spray (0.1 mL) nasal spray Use 1 [place] in the nose as needed for up to 10 days. May repeat dose in alternate nostril after 10 minutes based on response and tolerability. - sennosides (SENNA ORAL) Take by mouth. - DIETARY SUPPLEMENT,MISC COMB14 ORAL Take by mouth. Biomega 1000mg containing vitamin E and pure anchovy - medical supply, miscellaneous (MISCELLANEOUS MEDICAL SUPPLY MISC) Neurotrophin - acetaminophen (TYLENOL) 325 mg tablet 2 tablets by ORAL/FEEDING TUBE route every 4 hours as needed for pain. - pantoprazole DR (PROTONIX) 20 mg tablet Take 1 tablet by mouth DAILY (6 AM). Problem List As Of Date 08/22/2024 Noted Resolved Chest pain [R07.9] 04/25/2010 05/26/2024 Brain mass [G93.89] 03/17/2023 11/17/2023 Obesity, Class I, BMI 30-34.9 [E66.811] 03/17/2023 Brain compression (HCC) [G93.5] 03/20/2023 S/P brain surgery [Z98.890] 03/20/2023 11/17/2023 At risk for seizures [Z91.89] 03/20/2023 Cerebral edema (HCC) [G93.6] 03/20/2023 GBM (glioblastoma multiforme) (HCC) [C71.9] 04/07/2023 Syncope, unspecified syncope type [R55] 11/01/2023 11/03/2023 Examination of participant in clinical trial [Z*11/05/2023 11/17/2023 Forehead pain [R51.9] 11/05/2023 PONV (postoperative nausea and vomiting) [R11.2*05/26/2024 Acute post-operative pain [G89.18] 05/29/2024 Encounter Status:Closed by NADEEN BECKETT on 08/22/24 CNOV Observed: 08/12/2024 11:30 AM Status: COMPLETED Source: [facility] Office Visit (NSCAMN) ANGEL KEATING ([id number]) 1970 M Date Time Provider Department 08/12/24 11:30 AM [facility] During your visit today, we recorded the following information about you: Temperature Pulse Respiration Blood pressure 97.5 degrees 74/minute 18/minute 140/97 Weight Height 99.5 kg 1.771 m Christ Salvador MD, PhD 08/12/2024 2:22 PM Signed [facility] Follow up Clinic visit [facility] Team: -Jose Evans MD, Neurosurgery -SAV Rodriguez, Radiation Oncology -Patricia Enriquez MD, Neuro-Oncology DIAGNOSIS: MGMT unmethylated Glioblastoma. 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 He initially presented with anxiety-attack like episodes going back to January 2023 as well as a fall, without loss of consciousness but +trauma to head around 02/27/2023. On 03/16/2023, he presented to [facility] ED with word finding difficulty, report of one-time fever of 101 in February, anxiety, increased thirst and urination and was found to have a L temporal mass with midline subfalcine shift concerning for high grade glioma. He was afebrile with normal glucose level and electrolytes. He underwent gross total resection by Dr. Evans on 03/19/2023, revealing an MGMT unmethylated glioblastoma, WHO Grade 4. He was discharged on keppra 750mg BID and dexamethasone taper. He established care with Dr. Enriquez and given paroxysmal episodes of anxiety, he was concerned about temporal lobe epilepsy and advised lifelong AED to reduce seizure risk. The patient was exhibiting some fatigue and dullness, so a cross taper from keppra to vimpat, with goal of vimpat 150mg BID. The patient expressed interest in clinical trials and enrolled onto [facility] AGILE. He was randomized to the [id number] arm (cyclic peptide modulating tumor microenvironment). TREATMENT HISTORY Gross total resection [03/19/2023] [facility] Dr. Evans MGMT unmethylated Glioblastoma. L temporal GCAR AGILE, randomized to [id number] IV twice weekly arm + Standard concurrent chemotherapy and radiation (04/20- 05/29/2023) [facility] Dr. Joyce and Dr. Enriquez Adjuvant temozolomide PO D1-5 q 28 days C1 07/01/23, will start 07/03 150mg/m2 C2 07/27/23 C3 08/31/23 C4 09/21/23 C5 10/26/23 C6 11/23/23 C7 12/28/23 STOP ADJ TMZ as the clinical; trial calls for up to 6 cycles. For some reason the patient had an extra cycle of Adj TMZ. Adjuvant [id number] during Maintenance: Cycle 7 Week 1 - infusions on 12/14/2023 (D1) and 12/17/2023 (D4) Cycle 7 Week 2 - infusions on 12/21/2023 (D8) and 12/24/2023 (D11) Cycle 7 Week 3 - infusions on 12/28/2023 (D15) and 12/31/2023 (D18) Cycle 7 Week 4 - infusions on 01/05/2024 (D22) and 01/08/2024 (D25) Cycle 8 Week 5 - infusions on 01/11/2024 and 01/14/2024 02/08/2024: MRI shows progression 02/08/24 BTB Referrals to se Dr. Evans for possible surgery. If surgery offered, he can be enrolled in CASE 3322 clinical trial with methimazole + chemo. 02/18/24: Dr Evans recommended NO surgery. 02/26/24 Lomustine 90mg/m2 C#1 02/25-04/08/24 04/12/24 Tumor progression, increased CBV 04/14/2024 BTB Referrals to se Dr. Evans for possible surgery. The patient is also eligible, for CASE 3322 clinical trial with methimazole + chemo. 04/28/2024 Jose Evans MD since the patient, and recommended surgery. 04/28/2024 clinical trials team, saw the patient, the patient is eligible, for for CASE 3322 clinical trial with methimazole + chemo. Patient signed consent. Treatment plan: Pre-operative treatment Phase -Methimazole - Pre-Op period: 05/24/2024 to 05/27/2024 (last dose is DAY of surgery) -Dose level 2 (25 mg daily) Surgical resection 05/27/[address] 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 C1D1 (10-28 days after surgery) -Scheduled for 06/16/2024 (20 days post op) -Methimazole - Post-Op period: 05/27/2024- TBD -Dose level 2 (25 mg daily 07/14/2024 In person visit The patient is unaccompanied He still with some language dysfunction but not worsening. Has no headaches or seizures. No other neurological issues. Her is here for post op evaluation, and define continuation on the clinical trial. 08/14/2024 - Dr. Salvador Today, he presents with his mother for follow-up. He notes that he has had more fatigue and generalized weakness, feels since starting the lomustine mid-July. This was worse in the beginning but has leveled off. His mother does not feel that he picks his feet up as much when he is walking, though he does try to walk and stay active. He is not sleeping well - was started on diazepam about 2 weeks ago from urgent care, this has helped him fall asleep but still does not stay asleep well. He will take hour-long naps x2 during the daytime. He has a rash on his arms, chest, and back that he went to urgent care for and was given a burst of steroids. It has improved, but remains itchy. His mother has given him Eucerin but otherwise has not tried anything topical. There is no pain or burning associated with the rash. He feels his speech/word-finding difficulty remains stable. He does not feel he has focal weakness, rather a more generalized weakness and decreased stamina. He is interested in doing physical therapy if it can be arranged closer to his home in [place]. No significant nausea, changes in appetite, vision changes, or headache. His mother does also disclose that unfortunately he and his significant other ended their relationship very recently, and things have been bad for the past 4 days or so. He is currently living with his mother. He does not feel that he needs to speak to anyone such as a psychologist or therapist given how new the situation is, but will reach out to us if needed. No thoughts or intents of self-harm; he notes he has too much to live for, and has a lot of events coming up in 2024 - one daughter graduating college, one getting , and his son is turning 21. Last Chemo: see above Current Steroids dose: N/A Current AED Dose: lacosamide (VIMPAT) 150 mg tab Take 1 tablet by mouth two times a day. 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 Evans; path = GBM ORTHOPEDICS SURGERY HX 1997 knee surgery SHX CRANIOTOMY Left 03/19/2023 Family History: FAMILY HISTORY Problem Relation Age of Onset Diabetes Father Coronary Artery Disease Father Stroke Father Breast Cancer Mother None Sister Anesthesia Problems No Family History Social History Tobacco Use Smoking status: Former Current packs/day: 1.00 Average packs/day: 1 pack/day for 4.0 years (4.0 ttl pk-yrs) Types: Cigarettes Smokeless tobacco: Never Vaping Use Vaping status: Never Used Substance Use Topics Alcohol use: Not Currently Comment: three beers a month - per pt 102245 Drug use: Never 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 Currently lives at home with his mother. Allergies: Patient has no known allergies. Current Outpatient Medications Medication Sig methIMAzole (TAPAZOLE) 5 mg tablet Take TWO 10 mg tablets and ONE 5 mg tablet for a total dose of 25 mg, daily. methIMAzole (TAPAZOLE) 10 mg tablet Take TWO 10 mg tablets and ONE 5 mg tablet for a total dose of 25 mg, daily. lomustine (GLEOSTINE) 100 mg capsule Take one 8mg Zofran on an empty stomach in the evening. Wait ONE hour. Take TWO 100mg capsule(s) Lomustine by mouth for a total dose of 200mg. Take one 8 mg Zofran twenty-four hours later. Take on Day 1 of each 42 day cycle. diazePAM (VALIUM) 10 mg tablet Take 1 tablet by mouth at bedtime as needed for sedation for up to 30 days. lacosamide (VIMPAT) 150 mg tab Take 1 tablet by mouth two times a day. meclizine (ANTIVERT) 25 mg tab Take 1 tablet by mouth three times a day. valACYclovir (VALTREX) 1 gram tablet Take 1,000 mg by mouth three times a day. medical supply, miscellaneous (MISCELLANEOUS MEDICAL SUPPLY MISC) Neurotrophin acetaminophen (TYLENOL) 325 mg tablet 2 tablets by ORAL/FEEDING TUBE route every 4 hours as needed for pain. pantoprazole DR (PROTONIX) 20 mg tablet Take 1 tablet by mouth DAILY (6 AM). triamcinolone (KENALOG) 0.025 % cream Apply to affected area two times a day. traZODone (DESYREL) 50 mg tablet Take 1 tablet by mouth daily at bedtime. predniSONE (DELTASONE) 10 mg tablet Day #1 - 6 tablets PO then Day #2 - 5 tablets PO then Day #3 - 4 tablets PO then Day #4 - 3 tablets PO then Day #5 - 2 tablets PO then Day #6 - 1 tablet PO (Patient not taking: Reported on 08/12/2024) ondansetron (ZOFRAN) 8 mg tablet Take one tablet by mouth on an empty stomach in the evening one hour prior to chemo. Then take one tablet 24 hours after chemo. May repeat dose every 8-12 hours if needed to prevent nausea (Patient not taking: Reported on 08/12/2024) midazolam (NAYZILAM) 5 mg/spray (0.1 mL) nasal spray Use 1 [place] in the nose as needed for up to 10 days. May repeat dose in alternate nostril after 10 minutes based on response and tolerability. sennosides (SENNA ORAL) Take by mouth. (Patient not taking: Reported on 08/12/2024) DIETARY SUPPLEMENT,MISC COMB14 ORAL Take by mouth. Biomega 1000mg containing vitamin E and pure anchovy (Patient not taking: Reported on 08/12/2024) No current facility-administered medications for this visit. Review of systems: Constitutional: No recent fever or weight loss. Eyes: No history of glaucoma or cataracts. ENMT: No recent ear infection, nasal congestion, mouth sores or sore throat. CV: No history of chest pain, palpitations or leg swelling. Respiratory: No history of SOB, asthma or recent cough. Gastrointestinal: No history of nausea, vomiting, dysphagia or abdominal pain. Genitourinary: No history of hematuria or dysuria. Musculoskeletal: No complaint of arthritis, unstable gait or arm/leg weakness. Psychiatric: No history of hallucinations or depression or anxiety. ROS Neurological: No complaint of headache. No complaint of tinnitus. No complaint of decreased hearing. No complaint of diplopia. No complaints of decreased visual acuity. No complaint of arm/leg numbness. No problem with limb coordination. No complaint of syncope, seizures or disorientation. Objective Physical Exam: BP 140/97 Pulse 74 Temp 36.4 ?C (97.5 ?F) (Oral) Resp 18 Ht 177.1 cm (5' 9.72) Wt 99.5 kg (219 lb 5.7 oz) SpO2 100% BMI 31.72 kg/m? GENERAL EXAM: General appearance: Well appearing, alert, in no acute distress Skin: Maculopapular rash in bilateral arms, chest, and back. Scaly in parts. Oropharynx: No thrush noted. Extremities: No deformities. NEUROLOGICAL EXAM: Mental Status: alert, conversant. Comprehension and recall intact to history. Language is overall fluent, though with delays in articulation throughout. Cranial Nerves: Pupils equal and reactive to light bilaterally. Visual land full to confrontation. Extraocular movements intact without nystagmus. Face is symmetric at rest and with activation. Shoulder shrug full strength bilaterally. Tongue protrudes midline. No dysarthria. Motor: No pronator drift. Confrontational testing is as follows (R/L): 5/5 in elbow flexion, 5/5 in elbow extension, 5/5 in wrist flexion, 5/5 wrist extension, 5/5 finger abduction, 5/5 hip flexion, 5/5 knee flexion, 5/5 knee extension, 5/5 ankle dorsiflexion. Sensory: Sensation is intact and symmetric to light touch in the bilateral upper and lower extremities. Coordination: Gxbkqr-kebn-[id number] without dysmetria and fast finger-taps intact bilaterally. Reflexes: 2+ and symmetric in the bilateral biceps and patellae. Gait: Stable. Able to rise from seated position without use of arms. States not able to walk in tandem. Karnofsky performance status: 80 - Normal activity with effort, some signs or symptoms of disease. ECOG performance status: 1 - Restricted in physically strenuous activity but ambulatory and able to carry out work of a light or sedentary nature, e.g., light house work or office work. 05/18/2023 PHQ 2 and 9 Total Scores PHQ-2 Score 1 PHQ-9 Score 8 Labs: Latest Ref Rng AND Units 06/16/2024 07/14/2024 08/12/2024 CBC WBC 3.70 - 11.00 k/uL 9.46 4.83 4.93 RBC 4.20 - 6.00 m/uL 4.25 4.17 4.13 Hemoglobin 13.0 - 17.0 g/dL 13.9 13.6 13.4 Hematocrit 39.0 - 51.0 % 39.8 38.6 38.0 MCV 80.0 - 100.0 fL 93.6 92.6 92.0 MCH 26.0 - 34.0 pg 32.7 32.6 32.4 MCHC 30.5 - 36.0 g/dL 34.9 35.2 35.3 RDW-CV 11.5 - 15.0 % 14.5 14.7 15.9 Platelet Count 150 - 400 k/uL 171 220 164 MPV 9.0 - 12.7 fL 8.9 8.4 8.6 Baso% % 0.1 1.4 0.2 Abs Neut (ANC) 1.45 - 7.50 k/uL 7.97 3.01 3.83 Abs Lymph 1.00 - 4.00 k/uL 0.68 0.55 0.62 Abs Branch <0.87 k/uL 0.62 0.77 0.42 Abs Eosin <0.46 k/uL 0.10 0.40 0.03 Abs Baso <0.11 k/uL <0.03 0.07 <0.03 NRBC /100 WBC 0.0 0.0 0.0 Latest Ref Rng AND Units 06/16/2024 07/14/2024 08/12/2024 CMP Sodium 136 - 144 mmol/L 135 141 137 Potassium 3.7 - 5.1 mmol/L 4.0 4.0 4.2 Chloride 98 - 107 mmol/L 104 105 104 CO2 22 - 30 mmol/L 21 27 23 Glucose 74 - 99 mg/dL 97 105 112 BUN 9 - 24 mg/dL 23 7 15 Creatinine 0.73 - 1.22 mg/dL 1.05 0.88 1.02 EGFR >=60 mL/min/1.73m? 84 102 87 Protein, Total 6.3 - 8.0 g/dL 5.9 6.5 6.8 Albumin 3.9 - 4.9 g/dL 3.4 3.9 3.8 Calcium 8.5 - 10.2 mg/dL 8.2 9.1 9.2 Bilirubin, Total 0.2 - 1.3 mg/dL 0.6 0.5 0.3 AST 14 - 40 U/L 11 80 14 ALT 10 - 54 U/L 21 218 29 Alkaline Phosphatase 38 - 113 U/L 64 613 171 Final Pathology: SURGICAL PATHOLOGY: [id number] Order: [id number] Collected 03/19/2023 10:24 AM Status: Edited Result - FINAL Visible to patient: Yes (not seen) Dx: Brain tumor (HCC) 0 Result Notes Component FINAL DIAGNOSIS A, B. Brain, left temporal mass, biopsy and resection: - Morphologically consistent with high grade glioma. See comment. Diagnosis Comment CARLOS stained sections reveal a hypercellular infiltrating glioma with moderate to marked nuclear pleomorphism and increased mitoses (upto 4 per 10 high per field). Pseudopalisading necrosis and microvascular proliferation are identified. Immunohistochemical stains are performed at [facility] to better classify this lesion (block B1) and show the following in neoplastic cells: IDH1 R132H: neagtive (wildtype); ATRX: retained (wildtype); BRAF V600E: negative (wildtype); p53 strong nuclear positivity in up to 40%; Ki67 proliferative index up to 25%. Addendum This addendum is rendered to report the results of the following molecular studies: Targeted Oncology Panel: The oncogenic TERT promoter alteration, c.-124C>T (also known as C228T) was detected in this specimen; MGMT promoter methylation: not hypermethylated. 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 Addendum electronically signed by Krista Snow MD on 04/03/2023 at 9:13 AM Imaging: MRI Report MRI BRAIN WO/W IVCON Exam End: 07/13/2024 9:47 AM (Final result) Narrative: * * *Final Report* * * DATE OF EXAM: Jul 13 2024 9:47AM [facility] [id number] - MRI BRAIN WO/W IVCON / PROCEDURE REASON: GBM (glioblastoma multiforme) (HCC) * * * * Physician Interpretation * * * * EXAMINATION: MRI BRAIN WO/W IVCON HISTORY: GBM (glioblastoma multiforme) (HCC) - - - Primary neoplasm/metastasis/postop F/U - Brain/PATENT PARALEGAL neoplasm, assess treatment response - [id number] - - GBM (glioblastoma multiforme), WITH PERFUSION CASE 3322; [id number] - - TECHNIQUE: MRI brain intracranial mass protocol without and with contrast. Perfusion imaging was performed. M: [id number] MR Contrast: Dotarem Contrast Dose: 20 cc Route of Administration: Central IV COMPARISON: MRI brain 05/28/2024. 05/26/2024. 04/12/2024. RESULT: Acute Change: No evidence of an acute intracranial process. Hemorrhage: No evidence of prior parenchymal hemorrhage on the susceptibility weighted sequences. Mass Lesion/ Mass Effect: Again demonstrated prior operative changes related to left craniotomy for left temporal lobe mass resection with interval development of a prominent left convexity extra-axial collection which appears contiguous with fluid collection surrounding the left temporal craniotomy flap which extends to the extra calvarial soft tissues of the inferotemporal fossa. This measures up to 1.2 cm in greatest thickness (series 13, image 14) with extra calvarial component measuring up to 1.0 cm in thickness (series 13, image 20) without areas of abnormal enhancement. Few scattered areas of susceptibility artifact are present underneath the craniotomy defect and within this postoperative T2 hyperintense collection which may reflect prior postoperative changes although there collection is mostly composed of CSF attenuating fluid. Ill-defined areas of mildly nodular enhancement along the mesial left temporal lobe anteriorly (series 14, image 99) questionably measuring up to 0.4 x 1.1 cm in greatest transaxial dimension not well appreciated on coronal imaging may represent residual areas of enhancement from previously resected mass with small amount of minimally nodular enhancement along the temporal resection cavity (series 14, image 7). Overall, areas of enhancement appears slightly increased in the interim. Perfusion imaging demonstrates no definite perfusion abnormality or elevated CBV within the constraints of susceptibility and small area of enhancement which may be beyond the resolution of perfusion. T2/FLAIR hyperintensity surrounding the resection cavity margins likely reflects a component of gliosis. Small focus of enhancement is seen within the left dorsal basal ganglia and internal capsule (series 14, image 87 measuring up to 0.5 x 0.3 x 0.2 cm (series 14, image 90 and series 13, image 18) with a lentiform appearance, could represent a small vascular structure although no significant susceptibility is demonstrated. Mild localized mass effect secondary to left greater than right T2 hyperintense hygromatous collection with approximately 4 mm of midline shift to the right. Mild sulcal effacement along the left cerebral sulci. Perfusion: MR perfusion study was performed of the entire brain following bolus intravenous administration of gadolinium utilizing dynamic susceptibility-weighted contrast-enhanced acquisition. Noncontributory Chronic Change: Scattered punctate foci of increased T2 and FLAIR signal are noted in the supratentorial white matter which is a nonspecific finding, but likely represents minimal chronic microvascular ischemia. Parenchyma: No significant parenchymal volume loss for age. Ventricles: Normal caliber and morphology. Skull Base: Hypothalamic and pituitary region are grossly normal. Craniocervical junction is normal. No significant marrow replacement process. Vasculature: Major intracranial arteries and dural venous sinuses demonstrate typical flow voids, suggesting patency by spin echo criteria. Other: The paranasal sinuses and mastoid air cells are clear. The orbits and extracranial soft tissues are unremarkable. Impression: IMPRESSION: Similar to very slightly increased enhancement marginating the anterior mesial left temporal lobe as described, possibly postoperative or residual enhancing mass. No definite perfusion abnormality. Small focus of enhancement within the dorsal left basal ganglia, questionable for residual/recurrent process. Continued follow-up is recommended. Stable postoperative changes with enlarging left convexity CSF intensity collection measuring up to 1.2 cm causing mass effect and approximately 4 mm of midline shift to the right. Additional CSF intensity fluid surrounding the craniotomy flap involving the extra calvarial soft tissues as detailed. 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 He completed 7 cycles of temozolomide following his initial gross total resection in March 2023, along with twice-weekly [id number], per the GCAR-AGILE trial, which he continued until progressive disease per MRI from February 2024. He then received 1 cycle of lomustine monotherapy, was subsequently enrolled in methimazole trial in April 2024. Dr Keating remains currently enrolled in IRB#: [id number] Case 3322 - Targeting Transsulfuration via Suppression of Thyroid Hormone Signaling in Progressive Glioblastoma; Modified Phase 1/2 and Pharmacodynamic Trial of Methimazole in Patients with Progressive WHO Grade 4 Glioblastoma. He received methimazole prior to his surgery 05/27/24 and continues post-operatively on methimazole + lomustine. He is in cycle 1 of lomustine [D1 07/28/24, 110 mg/m2], cycle 2 to begin 09/07 if labs continue to be acceptable. He does have generalized maculopapular rash, likely secondary to methimazole (G1 tox). Plan: - C2D1 lomustine 110 mg/m2: 09/07/24, pending acceptable labs. - Continue methimazole per study calendar - next MRI Brain withANDwithout contrast + perfusion scheduled for 08/22/24, follow-up visit with Dr Fraire after this [short-interval scan] - Discontinue diazepam, prescribed by urgent care. Initiate trazodone 50 mg nightly PRN for insomnia. - Discontinue prednisone burst; will trial triamcinolone topical cream for his rash, which is improving. - Referrals to BEHAVIORAL HEALTH COUNSELOR and PT, to be pursued closer to home in [place]. - Will continue to address concerns re: mood and coping with stressors at future visits; he will let us know if he is interested in speaking with psychology in the future, defers today. - Continue lacosamide 150 mg BID Seen and staffed with Dr. Salvador, staff neuro-oncologist. Kimberlyn Persaud MD Neuro-Oncology Fellow Attending Note: Mckeon findings confirmed. Patient examined. Discussed with the fellow and the patient. Plan as outlined. Christ Salvador MD DPmtl [facility] Medical Neuro-Oncology Staff Physician Vaishali [facility] August 12, 2024 Patient Care Team: -Jose Evans MD, Neurosurgery, Ke[facility], [facility], [facility] Cyndee Joyce MD, PhD, Radiation Oncology, Lola Villavicenciot [facility], [facility], [facility]. Jaclyn Guillory, JULIO as Pull Worker (Hematology/Oncology) Soraida Simmons, VAZQUEZ (Hospice AND Palliative Medicine) Willy Lion MD (Hospice AND Palliative Medicine) Rupa Khoury APRN.MANUFACTURING ENGINEERING MANAGER (Hospice AND Palliative Medicine) Daniel Juárez PSYD, Psychology, [facility] Karla Soto MA 08/12/2024 2:22 PM Signed Additional intake questions: Has the patient had fever, nausea, vomiting, diarrhea, constipation, fatigue for > 1 week? No Does the patient have a decreased appetite? No Does patient want to see a Outside Solar Sales Consultant? No (yes to any of above refer patient to schedulers for dietitian appointment) ) Does patient have any new or increased numbness or tingling of extremities? No Is patient interested in fertility information? No Does patient need any prescription refills? Yes, LIP notified Does patient have an advanced directive in place? Yes, copies are in Epic Electronically Signed By: Karla Pedroza MA Referring Provider: PATRICIA ENRIQUEZ [[id number]] Allergies As of Date: 08/12/2024 (No Known Allergies) Date Reviewed: 08/12/2024 Reviewed by: Karla Pedroza MA - Fully Assessed Reason for Visit: Established Patient [175] Primary Visit Diagnosis:GBM (glioblastoma multiforme) (HCC) [C71.9] Other Visit Diagnoses:Seizures (HCC) [R56.9] Examination of participant in clinical trial [Z00.6] Brain tumor (HCC) [D49.6] Encounter for chemotherapy management [Z51.11] Prescriptions as of 08/12/2024 - methIMAzole (TAPAZOLE) 5 mg tablet Take TWO 10 mg tablets and ONE 5 mg tablet for a total dose of 25 mg, daily. - methIMAzole (TAPAZOLE) 10 mg tablet Take TWO 10 mg tablets and ONE 5 mg tablet for a total dose of 25 mg, daily. - triamcinolone (KENALOG) 0.025 % cream Apply to affected area two times a day. - traZODone (DESYREL) 50 mg tablet Take 1 tablet by mouth daily at bedtime. - lomustine (GLEOSTINE) 100 mg capsule Take one 8mg Zofran on an empty stomach in the evening. Wait ONE hour. Take TWO 100mg capsule(s) Lomustine by mouth for a total dose of 200mg. Take one 8 mg Zofran twenty-four hours later. Take on Day 1 of each 42 day cycle. - predniSONE (DELTASONE) 10 mg tablet Day #1 - 6 tablets PO then Day #2 - 5 tablets PO then Day #3 - 4 tablets PO then Day #4 - 3 tablets PO then Day #5 - 2 tablets PO then Day #6 - 1 tablet PO - diazePAM (VALIUM) 10 mg tablet Take 1 tablet by mouth at bedtime as needed for sedation for up to 30 days. - ondansetron (ZOFRAN) 8 mg tablet Take one tablet by mouth on an empty stomach in the evening one hour prior to chemo. Then take one tablet 24 hours after chemo. May repeat dose every 8-12 hours if needed to prevent nausea - lacosamide (VIMPAT) 150 mg tab Take 1 tablet by mouth two times a day. - meclizine (ANTIVERT) 25 mg tab Take 1 tablet by mouth three times a day. - valACYclovir (VALTREX) 1 gram tablet Take 1,000 mg by mouth three times a day. - midazolam (NAYZILAM) 5 mg/spray (0.1 mL) nasal spray Use 1 [place] in the nose as needed for up to 10 days. May repeat dose in alternate nostril after 10 minutes based on response and tolerability. - sennosides (SENNA ORAL) Take by mouth. - DIETARY SUPPLEMENT,MISC COMB14 ORAL Take by mouth. Biomega 1000mg containing vitamin E and pure anchovy - medical supply, miscellaneous (MISCELLANEOUS MEDICAL SUPPLY [facility] [place]) Neurotrophin - acetaminophen (TYLENOL) 325 mg tablet 2 tablets by ORAL/FEEDING TUBE route every 4 hours as needed for pain. - pantoprazole DR (PROTONIX) 20 mg tablet Take 1 tablet by mouth DAILY (6 AM). Problem List As Of Date 08/12/2024 Noted Resolved Chest pain [R07.9] 04/25/2010 05/26/2024 Brain mass [G93.89] 03/17/2023 11/17/2023 Obesity, Class I, BMI 30-34.9 [E66.811] 03/17/2023 Brain compression (HCC) [G93.5] 03/20/2023 S/P brain surgery [Z98.890] 03/20/2023 11/17/2023 At risk for seizures [Z91.89] 03/20/2023 Cerebral edema (HCC) [G93.6] 03/20/2023 GBM (glioblastoma multiforme) (HCC) [C71.9] 04/07/2023 Syncope, unspecified syncope type [R55] 11/01/2023 11/03/2023 Examination of participant in clinical trial [Z*11/05/2023 11/17/2023 Forehead pain [R51.9] 11/05/2023 PONV (postoperative nausea and vomiting) [R11.2*05/26/2024 Acute post-operative pain [G89.18] 05/29/2024 Level of Service: OFFICE/OUTPATIENT ESTABLISHED HIGH MDM 40 MIN [31841] Additional E/M codes: VISIT CPLX INHERENT EANDM ASSOC WITH MED * LOS History for Encounter Level of Service: OFFICE/OUTPATIENT ESTABLISHED HIGH MDM 40 MIN[75209] Date AND Time: 08-12-2024 2:19 PM Recorded by User: CHRIST SALVADOR Encounter Status:Closed by CHRIST SALVADOR on 08/12/24 PROGRESS Observed: 08/12/2024 11:17 AM Status: COMPLETED Source: [facility] HNO ID: [id number] Author: KARLA PEDROZA MA Service: ? Author Type: Camp Housekeeper Type: Progress Notes Filed: 08/12/2024 14:22 Note Text: Additional intake questions: Has the patient had fever, nausea, vomiting, diarrhea, constipation, fatigue for > 1 week? No Does the patient have a decreased appetite? No Does patient want to see a Outside Solar Sales Consultant? No (yes to any of above refer patient to schedulers for dietitian appointment) ) Does patient have any new or increased numbness or tingling of extremities? No Is patient interested in fertility information? No Does patient need any prescription refills? Yes, LIP notified Does patient have an advanced directive in place? Yes, copies are in Epic Electronically Signed By: Karla Pedroza MA PROGRESS Observed: 08/12/2024 11:16 AM Status: COMPLETED Source: [facility] HNO ID: [id number] Author: CHRIST SALVADOR MD, PhD Service: ? Author Type: Physician Type: Progress Notes Filed: 08/12/2024 14:22 Note Text: [facility] Follow up Clinic visit [facility] Team: -Jose Evans MD, Neurosurgery -SAV Rodriguez, Radiation Oncology -Patricia Enriquez MD, Neuro-Oncology DIAGNOSIS: MGMT unmethylated Glioblastoma. 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 He initially presented with anxiety-attack like episodes going back to January 2023 as well as a fall, without loss of consciousness but +trauma to head around 02/27/2023. On 03/16/2023, he presented to [facility] ED with word finding difficulty, report of one-time fever of 101 in February, anxiety, increased thirst and urination and was found to have a L temporal mass with midline subfalcine shift concerning for high grade glioma. He was afebrile with normal glucose level and electrolytes. He underwent gross total resection by Dr. Evans on 03/19/2023, revealing an MGMT unmethylated glioblastoma, WHO Grade 4. He was discharged on keppra 750mg BID and dexamethasone taper. He established care with Dr. Enriquez and given paroxysmal episodes of anxiety, he was concerned about temporal lobe epilepsy and advised lifelong AED to reduce seizure risk. The patient was exhibiting some fatigue and dullness, so a cross taper from keppra to vimpat, with goal of vimpat 150mg BID. The patient expressed interest in clinical trials and enrolled onto [facility] AGILE. He was randomized to the [id number] arm (cyclic peptide modulating tumor microenvironment). TREATMENT HISTORY Gross total resection [03/19/2023] [facility] Dr. Evans MGMT unmethylated Glioblastoma. L temporal GCAR AGILE, randomized to [id number] IV twice weekly arm + Standard concurrent chemotherapy and radiation (04/20- 05/29/2023) [facility] Dr. Joyce and Dr. Enriquez Adjuvant temozolomide PO D1-5 q 28 days C1 07/01/23, will start 11/24 150mg/m2 C2 07/27/23 C3 08/31/23 C4 09/21/23 C5 10/26/23 C6 11/23/23 C7 12/28/23 STOP ADJ TMZ as the clinical; trial calls for up to 6 cycles. For some reason the patient had an extra cycle of Adj TMZ. Adjuvant [id number] during Maintenance: Cycle 7 Week 1 - infusions on 12/14/2023 (D1) and 12/17/2023 (D4) Cycle 7 Week 2 - infusions on 12/21/2023 (D8) and 12/24/2023 (D11) Cycle 7 Week 3 - infusions on 12/28/2023 (D15) and 12/31/2023 (D18) Cycle 7 Week 4 - infusions on 01/05/2024 (D22) and 01/08/2024 (D25) Cycle 8 Week 5 - infusions on 01/11/2024 and 01/14/2024 02/08/2024: MRI shows progression 02/08/24 BTB Referrals to se Dr. Evans for possible surgery. If surgery offered, he can be enrolled in CASE 3322 clinical trial with methimazole + chemo. 02/18/24: Dr Evans recommended NO surgery. 02/26/24 Lomustine 90mg/m2 C#1 02/25-04/08/24 04/12/24 Tumor progression, increased CBV 04/14/2024 BTB Referrals to se Dr. Evans for possible surgery. The patient is also eligible, for CASE 3322 clinical trial with methimazole + chemo. 04/28/2024 Jose Evans MD since the patient, and recommended surgery. 04/28/2024 clinical trials team, saw the patient, the patient is eligible, for for CASE 3322 clinical trial with methimazole + chemo. Patient signed consent. Treatment plan: Pre-operative treatment Phase -Methimazole - Pre-Op period: 05/24/2024 to 05/27/2024 (last dose is DAY of surgery) -Dose level 2 (25 mg daily) Surgical resection 05/27/[address] 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 C1D1 (10-28 days after surgery) -Scheduled for 06/16/2024 (20 days post op) -Methimazole - Post-Op period: 05/27/2024- TBD -Dose level 2 (25 mg daily 07/14/2024 In person visit The patient is unaccompanied He still with some language dysfunction but not worsening. Has no headaches or seizures. No other neurological issues. Her is here for post op evaluation, and define continuation on the clinical trial. 08/14/2024 - Dr. Salvador Today, he presents with his mother for follow-up. He notes that he has had more fatigue and generalized weakness, feels since starting the lomustine mid-July. This was worse in the beginning but has leveled off. His mother does not feel that he picks his feet up as much when he is walking, though he does try to walk and stay active. He is not sleeping well - was started on diazepam about 2 weeks ago from urgent care, this has helped him fall asleep but still does not stay asleep well. He will take hour-long naps x2 during the daytime. He has a rash on his arms, chest, and back that he went to urgent care for and was given a burst of steroids. It has improved, but remains itchy. His mother has given him Eucerin but otherwise has not tried anything topical. There is no pain or burning associated with the rash. He feels his speech/word-findingdifficulty remains stable. He does not feel he has focal weakness, rather a more generalized weakness and decreased stamina. He is interested in doing physical therapy if [place] can [place] No significant nausea, changes in appetite, vision changes, or headache. His mother does also disclose that unfortunately he and his significant other ended their relationship very recently, and things have been bad for the past 4 days or so. He is currently living with his mother. He does not feel that he needs to speak to anyone such as a psychologist or therapist given how new the situation is, but will reach out to us if needed. No thoughts or intents of self-harm; he notes he has too much to live for, and has a lot of events coming up in 2025 - one daughter graduating college, one getting , and his son is turning 21. Last Chemo: see above Current Steroids dose: N/A Current AED Dose: lacosamide (VIMPAT) 150 mg tab Take 1 tablet by mouth two times a day. 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 Evans; path = GBM ORTHOPEDICS SURGERY HX 1996 knee surgery SHX CRANIOTOMY Left 03/19/2023 Family History: FAMILY HISTORY Problem Relation Age of Onset Diabetes Father Coronary Artery Disease Father Stroke Father Breast Cancer Mother None Sister Anesthesia Problems No Family History Social History Tobacco Use Smoking status: Former Current packs/day: 1.00 Average packs/day: 1 pack/day for 4.0 years (4.0 ttl pk-yrs) Types: Cigarettes Smokeless tobacco: Never Vaping Use Vaping status: Never Used Substance Use Topics Alcohol use: Not Currently Comment: three beers a month - per pt 184703 Drug use: Never 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 Currently lives at home with his mother. Allergies: Patient has no known allergies. Current Outpatient Medications Medication Sig methIMAzole (TAPAZOLE) 5 mg tablet Take TWO 10 mg tablets and ONE 5 mg tablet for a total dose of 25 mg, daily. methIMAzole (TAPAZOLE) 10 mg tablet Take TWO 10 mg tablets and ONE 5 mg tablet for a total dose of 25 mg, daily. lomustine (GLEOSTINE) 100 mg capsule Take one 8mg Zofran on an empty stomach in the evening. Wait ONE hour. Take TWO 100mg capsule(s) Lomustine by mouth for a total dose of 200mg. Take one 8 mg Zofran twenty-four hours later. Take on Day 1 of each 42 day cycle. diazePAM (VALIUM) 10 mg tablet Take 1 tablet by mouth at bedtime as needed for sedation for up to 30 days. lacosamide (VIMPAT) 150 mg tab Take 1 tablet by mouth two times a day. meclizine (ANTIVERT) 25 mg tab Take 1 tablet by mouth three times a day. valACYclovir (VALTREX) 1 gram tablet Take 1,000 mg by mouth three times a day. medical supply, miscellaneous (MISCELLANEOUS MEDICAL SUPPLY [facility]) Neurotrophin acetaminophen (TYLENOL) 325 mg tablet 2 tablets by ORAL/FEEDING TUBE route every 4 hours as needed for pain. pantoprazole DR (PROTONIX) 20 mg tablet Take 1 tablet by mouth DAILY (6 AM). triamcinolone (KENALOG) 0.025 % cream Apply to affected area two times a day. traZODone (DESYREL) 50 mg tablet Take 1 tablet by mouth daily at bedtime. predniSONE (DELTASONE) 10 mg tablet Day #1 - 6 tablets PO then Day #2 - 5 tablets PO then Day #3 - 4 tablets PO then Day #4 - 3 tablets PO then Day #5 - 2 tablets PO then Day #6 - 1 tablet PO (Patient not taking: Reported on 08/12/2024) ondansetron (ZOFRAN) 8 mg tablet Take one tablet by mouth on an empty stomach in the evening one hour prior to chemo. Then take one tablet 24 hours after chemo. May repeat dose every 8-12 hours if needed to prevent nausea (Patient not taking: Reported on 08/12/2024) midazolam (NAYZILAM) 5 mg/spray (0.1 mL) nasal spray Use 1 [place] in the nose as needed for up to 10 days. May repeat dose in alternate nostril after 10 minutes based on response and tolerability. sennosides (SENNA ORAL) Take by mouth. (Patient not taking: Reported on 08/12/2024) DIETARY SUPPLEMENT,MIS COMB14 ORAL Take by mouth. Biomega 1000mg containing vitamin E and pure anchovy (Patient not taking: Reported on 08/12/2024) No current facility-administered medications for this visit. Review of systems: Constitutional: No recent fever or weight loss. Eyes: No history of glaucoma or cataracts. ENMT: No recent ear infection, nasal congestion, mouth sores or sore throat. CV: No history of chest pain, palpitations or leg swelling. Respiratory: No history of SOB, asthma or recent cough. Gastrointestinal: No history of nausea, vomiting, dysphagia or abdominal pain. Genitourinary: No history of hematuria or dysuria. Musculoskeletal: No complaint of arthritis, unstable gait or arm/leg weakness. Psychiatric: No history of hallucinations or depression or anxiety. ROS Neurological: No complaint of headache. No complaint of tinnitus. No complaint of decreased hearing. No complaint of diplopia. No complaints of decreased visual acuity. No complaint of arm/leg numbness. No problem with limb coordination. No complaint of syncope, seizures or disorientation. Objective Physical Exam: BP 140/97 Pulse 74 Temp 36.4 ?C (97.5 ?F) (Oral) Resp 18 Ht 177.1 cm (5' 9.72) Wt 99.5 kg (219 lb 5.7 oz) SpO2 100% BMI 31.72 kg/m? GENERAL EXAM: General appearance: Well appearing, alert, in no acute distress Skin: Maculopapular rash in bilateral arms, chest, and back. Scaly in parts. Oropharynx: No thrush noted. Extremities: No deformities. NEUROLOGICAL EXAM: Mental Status: alert, conversant. Comprehension and recall intact to history. Language is overall fluent, though with delays in articulation throughout. Cranial Nerves: Pupils equal and reactive to light bilaterally. Visual land full to confrontation. Extraocular movements intact without nystagmus. Face is symmetric at rest and with activation. Shoulder shrug full strength bilaterally. Tongue protrudes midline. No dysarthria. Motor: No pronator drift. Confrontational testing is as follows (R/L): 5/5 in elbow flexion, 5/5 in elbow extension, 5/5 in wrist flexion, 5/5 wrist extension, 5/5 finger abduction, 5/5 hip flexion, 5/5 knee flexion, 5/5 knee extension, 5/5 ankle dorsiflexion. Sensory: Sensation is intact and symmetric to light touch in the bilateral upper and lower extremities. Coordination: [id number]-[id number] without dysmetria and fast finger-taps intact bilaterally. Reflexes: 2+ and symmetric in the bilateral biceps and patellae. Gait: Stable. Able to rise from seated position without use of arms. States not able to walk in tandem. [place] performance status: 80 - Normal activity with effort, some signs or symptoms of disease. ECOG performance status: 1 - Restricted in physically strenuous activity but ambulatory and able to carry out work of a light or sedentary nature, e.g., light house work or office work. 05/18/2023 PHQ 2 and 9 Total Scores PHQ-2 Score 1 PHQ-9 Score 8 Labs: Latest Ref Rng AND Units 06/16/2024 07/14/2024 08/12/2024 CBC WBC 3.70 - 11.00 k/uL 9.46 4.83 4.93 RBC 4.20 - 6.00 m/uL 4.25 4.17 4.13 Hemoglobin 13.0 - 17.0 g/dL 13.9 13.6 13.4 Hematocrit 39.0 - 51.0 % 39.8 38.6 38.0 MCV 80.0 - 100.0 fL 93.6 92.6 92.0 MCH 26.0 - 34.0 pg 32.7 32.6 32.4 MCHC 30.5 - 36.0 g/dL 34.9 35.2 35.3 RDW-CV 11.5 - 15.0 % 14.5 14.7 15.9 Platelet Count 150 - 400 k/uL 171 220 164 MPV 9.0 - 12.7 fL 8.9 8.4 8.6 Baso% % 0.1 1.4 0.2 Abs Neut (ANC) 1.45 - 7.50 k/uL 7.97 3.01 3.83 Abs Lymph 1.00 - 4.00 k/uL 0.68 0.55 0.62 Abs Branch <0.87 k/uL 0.62 0.77 0.42 Abs Eosin <0.46 k/uL 0.10 0.40 0.03 Abs Baso <0.11 k/uL <0.03 0.07 <0.03 NRBC /100 WBC 0.0 0.0 0.0 Latest Ref Rng AND Units 06/16/2024 07/14/2024 08/12/2024 CMP Sodium 136 - 144 mmol/L 135 141 137 Potassium 3.7 - 5.1 mmol/L 4.0 4.0 4.2 Chloride 98 - 107 mmol/L 104 105 104 CO2 22 - 30 mmol/L 21 27 23 Glucose 74 - 99 mg/dL 97 105 112 BUN 9 - 24 mg/dL 23 7 15 Creatinine 0.73 - 1.22 mg/dL 1.05 0.88 1.02 EGFR >=60 mL/min/1.73m? 84 102 87 Protein, Total 6.3 - 8.0 g/dL 5.9 6.5 6.8 Albumin 3.9 - 4.9 g/dL 3.4 3.9 3.8 Calcium 8.5 - 10.2 mg/dL 8.2 9.1 9.2 Bilirubin, Total 0.2 - 1.3 mg/dL 0.6 0.5 0.3 AST 14 - 40 U/L 11 80 14 ALT 10 - 54 U/L 21 218 29 Alkaline Phosphatase 38 - 113 U/L 64 613 171 Final Pathology: SURGICAL PATHOLOGY: [id number] Order: [id number] Collected 03/19/2023 10:24 AM Status: Edited Result - FINAL Visible to patient: Yes (not seen) Dx: Brain tumor (HCC) 0 Result Notes Component FINAL DIAGNOSIS A, B. Brain, left temporal mass, biopsy and resection: - Morphologically consistent with high grade glioma. See comment. Diagnosis Comment CARLOS stained sections reveal a hypercellular infiltrating glioma with moderate to marked nuclear pleomorphism and increased mitoses (upto 4 per 10 high per field). Pseudopalisading necrosis and microvascular proliferation are identified. Immunohistochemical stains are performed at [facility] to better classify this lesion (block B1) and show the following in neoplastic cells: IDH1 R132H: neagtive (wildtype); ATRX: retained (wildtype); BRAF V600E: negative (wildtype); p53 strong nuclear positivity in up to 40%; Ki67 proliferative index up to 25%. Addendum This addendum is rendered to report the results of the following molecular studies: Targeted Oncology Panel: The oncogenic TERT promoter alteration, c.-124C>T (also known as C228T) was detected in this specimen; MGMT promoter methylation: not hypermethylated. 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 Addendum electronically signed by Krista Snow MD on 04/03/2023 at 9:13 AM Imaging: MRI Report MRI BRAIN WO/W IVCON Exam End: 07/13/2024 9:47 AM (Final result) Narrative: * * *Final Report* * * DATE OF EXAM: Jul 13 2024 9:47AM [facility] [id number] - MRI BRAIN WO/W IVCON / PROCEDURE REASON: GBM (glioblastoma multiforme) (HCC) * * * * Physician Interpretation * * * * EXAMINATION: MRI BRAIN WO/W IVCON HISTORY: GBM (glioblastoma multiforme) (HCC) - - - Primary neoplasm/metastasis/postop F/U - Brain/PATENT PARALEGAL neoplasm, assess treatment response - [id number] - - GBM (glioblastoma multiforme), WITH PERFUSION CASE 3322; [id number] - - TECHNIQUE: MRI brain intracranial mass protocol without and with contrast. Perfusion imaging was performed. M: [id number] MR Contrast: Dotarem Contrast Dose: 20 cc Route of Administration: Central IV COMPARISON: MRI brain 05/28/2024. 05/26/2024. 04/12/2024. RESULT: Acute Change: No evidence of an acute intracranial process. Hemorrhage: No evidence of prior parenchymal hemorrhage on the susceptibility weighted sequences. Mass Lesion/ Mass Effect: Again demonstrated prior operative changes related to left craniotomy for left temporal lobe mass resection with interval development of a prominent left convexity extra-axial collection which appears contiguous with fluid collection surrounding the left temporal craniotomy flap which extends to the extra calvarial soft tissues of the inferotemporal fossa. This measures up to 1.2 cm in greatest thickness (series 13, image 14) with extra calvarial component measuring up to 1.0 cm in thickness (series 13, image 20) without areas of abnormal enhancement. Few scattered areas of susceptibility artifact are present underneath the craniotomy defect and within this postoperative T2 hyperintense collection which may reflect prior postoperative changes although there collection is mostly composed of CSF attenuating fluid. Ill-defined areas of mildly nodular enhancement along the mesial left temporal lobe anteriorly (series 14, image 99) questionably measuring up to 0.4 x 1.1 cm in greatest transaxial dimension not well appreciated on coronal imaging may represent residual areas of enhancement from previously resected mass with small amount of minimally nodular enhancement along the temporal resection cavity (series 14, image 7). Overall, areas of enhancement appears slightly increased in the interim. Perfusion imaging demonstrates no definite perfusion abnormality or elevated CBV within the constraints of susceptibility and small area of enhancement which may be beyond the resolution of perfusion. T2/FLAIR hyperintensity surrounding the resection cavity margins likely reflects a component of gliosis. Small focus of enhancement is seen within the left dorsal basal ganglia and internal capsule (series 14, image 87 measuring up to 0.5 x 0.3 x 0.2 cm (series 14, image 90 and series 13, image 18) with a lentiform appearance, could represent a small vascular structure although no significant susceptibility is demonstrated. Mild localized mass effect secondary to left greater than right T2 hyperintense hygromatous collection with approximately 4 mm of midline shift to the right. Mild sulcal effacement along the left cerebral sulci. Perfusion: MR perfusion study was performed of the entire brain following bolus intravenous administration of gadolinium utilizing dynamic susceptibility-weighted contrast-enhanced acquisition. Noncontributory Chronic Change: Scattered punctate foci of increased T2 and FLAIR signal are noted in the supratentorial white matter which is a nonspecific finding, but likely represents minimal chronic microvascular ischemia. Parenchyma: No significant parenchymal volume loss for age. Ventricles: Normal caliber and morphology. Skull Base: Hypothalamic and pituitary region are grossly normal. Craniocervical junction is normal. No significant marrow replacement process. Vasculature: Major intracranial arteries and dural venous sinuses demonstrate typical flow voids, suggesting patency by spin echo criteria. Other: The paranasal sinuses and mastoid air cells are clear. The orbits and extracranial soft tissues are unremarkable. Impression: IMPRESSION: Similar to very slightly increased enhancement marginating the anterior mesial left temporal lobe as described, possibly postoperative or residual enhancing mass. No definite perfusion abnormality. Small focus of enhancement within the dorsal left basal ganglia, questionable for residual/recurrent process. Continued follow-up is recommended. Stable postoperative changes with enlarging left convexity CSF intensity collection measuring up to 1.2 cm causing mass effect and approximately 4 mm of midline shift to the right. Additional CSF intensity fluid surrounding the craniotomy flap involving the extra calvarial soft tissues as detailed. 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 He completed 7 cycles of temozolomide following his initial gross total resection in March 2023, along with twice-weekly [id number], per the GCAR-AGILE trial, which he continued until progressive disease per MRI from February 2024. He then received 1 cycle of lomustine monotherapy, was subsequently enrolled in methimazole trial in April 2024. Dr Keating remains currently enrolled in IRB#: [id number] Case [id number] - Targeting Transsulfuration via Suppression of Thyroid Hormone Signaling in Progressive Glioblastoma; Modified Phase 1/2 and Pharmacodynamic Trial of Methimazole in Patients with Progressive WHO Grade 4 Glioblastoma. He received methimazole prior to his surgery 05/27/24 and continues post-operatively on methimazole + lomustine. He is in cycle 1 of lomustine [D1 07/28/24, 110 mg/m2], cycle 2 to begin 09/07 if labs continue to be acceptable. He does have generalized maculopapular rash, likely secondary to methimazole (G1 tox). Plan: - C2D1 lomustine 110 mg/m2: 09/07/24, pending acceptable labs. - Continue methimazole per study calendar - next MRI Brain withANDwithout contrast + perfusion scheduled for 08/22/24, follow-up visit with Dr Fraire after this [short-interval scan] - Discontinue diazepam, prescribed by urgent care. Initiate trazodone 50 mg nightly PRN for insomnia. - Discontinue prednisone burst; will trial triamcinolone topical cream for his rash, which is improving. - Referrals to [facility] and PT, to be pursued closer to home in [place]. - Will continue to address concerns re: mood and coping with stressors at future visits; he will let us know if he is interested in speaking with psychology in the future, defers today. - Continue lacosamide 150 mg BID Seen and staffed with Dr. Salvador, staff neuro-oncologist. Kimberlyn Persaud MD Neuro-Oncology Fellow Attending Note: Mckeon findings confirmed. Patient examined. Discussed with the fellow and the patient. Plan as outlined. Christ Salvador MD DPmtl [facility] Medical Neuro-Oncology Staff Physician Vaish[facility] August 12, 2024 CC Patient Care Team: -Jose Evans MD, Neurosurgery, [facility] [place], [facility], [facility] Cyndee Joyce MD, PhD, Radiation Oncology, [facility], [facility], [facility]. Jaclyn Guillory LSW as Pull Worker (Hematology/Oncology) Soraida Simmons, VAZQUEZ (Hospice AND Palliative Medicine) Willy Lion MD (Hospice AND Palliative Medicine) Rupa Khoury APRN.EDSON (Hospice AND Palliative Medicine) Daniel Juárez PSYD, Psychology, [facility] Dr Enriquez TSH SERPL-ACNC Collected: 10:45 AM Status: F Source: [facility] Comment: Specimen Type : BLOOD SPECIMEN Ordering Facility: [facility] Address: [address] [place] [address] TYPE CODE TESTS RESULT OUT OF RANGE REFERENCE UNITS LAB 3016-3(LOINC) TSH SerPl-aCnc 3.830 0.270-4.200 mIU/L Performed By: #### 3016-3 ## ## [facility] CLIA [id number] [address] [place] [address] STATES OF [facility] MISC SEND OUT TST 1 Collected: 08/12/19 10:45 AM Status: F Source: [facility] Comment: Specimen Type : BLOOD SPECIMEN Ordering Facility: [facility] Address: [address] [place] [address] TYPE CODE TESTS RESULT OUT OF RANGE REFERENCE UNITS LAB NAME1 TEST 1 Result Comment: [facility] RESU1 MISC SCAN TEST RESULTS 1 Result Comment: [facility] [id number] REFERRAL LAB 1 (DROP-DOWN) Result Comment: [facility] COMP METAB 2000 PNL SERPL Collected: 10:45 AM Status: F Source: [facility] Order Comment: Specimen Type : BLOOD SPECIMEN Ordering Facility: [facility] Address: [facility] [place] [address] TYPE CODE TESTS RESULT OUT OF RANGE REFERENCE UNITS LAB 2885-2(LOINC) Prot SerPl-mCnc 6.8 6.3-8.0 g/dL LAB 1751-7(LOINC) Albumin SerPl-mCnc 3.8 Low 3.9-4.9 g/dL LAB 05987-2(LOINC) Calcium SerPl-mCnc 9.2 8.5-10.2 mg/dL LAB 1975-2(LOINC) Bilirub SerPl-mCnc 0.3 0.2-1.3 mg/dL LAB 6768-6(LOINC) ALP SerPl-cCnc 171 High 38-113 U/L LAB 1920-8(LOINC) AST SerPl-cCnc 14 14-40 U/L LAB 1742-6(LOINC) ALT SerPl-cCnc 29 10-54 U/L LAB 2345-7(LOINC) Glucose SerPl-mCnc 112 High 74-99 mg/dL Result Comment: The [place] Diabetes Association (ADA) provides guidance for cutoff values for fasting glucose and random glucose. The ADA defines fasting as no caloric intake for at least 8 hours. Fasting plasma glucose results between 100 to 125 mg/dL indicate increased risk for diabetes (prediabetes). Fasting plasma glucose results greater than or equal to 126 mg/dL meet the criteria for diagnosis of diabetes. In the absence of unequivocal hyperglycemia, results should be confirmed by repeat testing. In a patient with classic symptoms of hyperglycemia or hyperglycemic crisis, random plasma glucose results greater than or equal to 200 mg/dL meet the criteria for diagnosis of diabetes. Reference: Standards of Medical Care in Diabetes 2016, [place] Diabetes Association. Diabetes Care. 2016.39(Suppl 1). LAB 3094-0(LOINC) BUN SerPl-mCnc 15 9-24 mg/ dL LAB 2160-0(LOINC) Creat SerPl-mCnc 1.02 0.73-1.22 mg/dL LAB 2951-2(LOINC) Sodium SerPl-sCnc 137 136-144 mmol/L LAB 2823-3(LOINC) Potassium SerPl-sCnc 4.2 3.7-5.1 mmol/L LAB 5-0(LOINC) Chloride SerPl-sCnc 104 98-107 mmol/L LAB 2027-9(LOINC) CO2 SerPl-sCnc 23 22-30 mmo l/L LAB 40747-1(LOINC) Anion Gap SerPl-sCnc 10 8-15 mmol/L LAB 63080-8(LOINC) Creatinine + eGFR Pnl SerPlBld 87 >=60 mL/min/1 .73m??? Result Comment: Estimated Gl omerular Filtration Rate (eGFR) is calculated using the 2020 CKD-EPI creatinine equation. This equation utilizes serum creatinine, sex, and age as parameters. The creatinine assay has traceable calibration to isotope dilution-mass spectrometry. Refer to KDIGO guidelines for clinical interpretation. In patients with unstable renal function, e.g. those with acute kidney injury, the eGFR may not accurately reflect actual GFR. Performed By: #### 61686-3 # ### [facility] CLIA [id number] [address] [place] [address] [place] T3FREE SERPL-MCNC Collected: 5 10:45 AM Status: F Source: [facility] Order Comment: Specimen Type : BLOOD SPECIMEN Ordering Facility: [facility] Address: [address] [place] [address] TYPE CODE TESTS RESULT OUT OF RANGE REFERENCE UNITS LAB 3051-0(LOINC) T3Free SerPl-mCnc 2.6 2.3-4.1 pg/mL Performed By: #### 3051-0, 3 024-7, 3053-6, 3026-2 #### [facility] CLIA [id number] [address] [place] [address] [place] T4 FREE SERPL-MCNC Collected: 5 10:45 AM Status: F Source: [facility] Order Comment: Specimen Type : BLOOD SPECIMEN Ordering Facility: [facility] Address: [address] [place] [address] TYPE CODE TESTS RESULT OUT OF RANGE REFERENCE UNITS LAB 3024-7(LOINC) T4 Free SerPl-mCnc 1.1 0.9-1.7 ng/dL Performed By: #### 3051-0, 3 024-7, 3053-6, 3026-2 #### [facility] CLIA [id number] [address] [place] [address] [place] T3 SERPL-MCNC Collected: 10:45 AM Status: F Source: [facility] Order Comment: Specimen Type : BLOOD SPECIMEN Ordering Facility: [facility] Address: [address] [place] [address] TYPE CODE TESTS RESULT OUT OF RANGE REFERENCE UNITS LAB 3053-6(LOINC) T3 SerPl-mCnc 76 Low 79-165 ng/d L Performed By: #### 3051-0, 3 024-7, 3053-6, 3026-2 #### [facility] CLIA [id number] [address] [place] [address] [place] T4 SERPL-MCNC Collected: 10:45 AM Status: F Source: [facility] Order Comment: Specimen Type : BLOOD SPECIMEN Ordering Facility: [facility] Address: [address] [place] [address] TYPE CODE TESTS RESULT OUT OF RANGE REFERENCE UNITS LAB 3026-2(LOINC) T4 SerPl-mCnc 5.9 5.5-10.2 ug/ dL Performed By: #### 3051-0, 3 024-7, 3053-6, 3026-2 #### [facility] CLIA [id number] [address] [place] [address] [place] CBC W AUTO DIFF BLD Collected: 08/12/2024 10:45 AM S tatus: F Source: [facility] Order Comment: Specimen Type : BLOOD SPECIMEN Ordering Facility: [facility] Address: [address] [place] [address] TYPE CODE TESTS RESULT OUT OF RANGE REFERENCE UNITS LAB 6690-2(LOINC) WBC # Bld Auto 4.93 3.70-11.00 k/uL LAB 789-8(LOINC) RBC # Bld Auto 4.13 Low 4.20-6.00 m/ uL LAB 718-7([facility]) Hgb Bld-mCnc 13.4 13.0-17.0 g/dL LAB 4544-3([facility]) Hct VFr Bld Auto 38.0 Low 39.0-51.0 % LAB 787-2([facility]) MCV RBC Auto 92.0 80.0-100.0 fL LAB 785-6([facility]) MCH RBC Qn Auto 32.4 26.0-34.0 p g LAB 786-4([facility]) MCHC RBC Auto-mCnc 35.3 30.5-36.0 g/dL LAB 97315-1([facility]) RDW RBC-Rto 15.9 High 11.5-15.0 % LAB 777-3([facility]) Platelet # Bld Auto 164 150-400 k/uL LAB 96834-0([facility]) PMV Bld Auto 8.6 Low 9.0-12.7 fL LAB 770-8([facility]) Neutrophils/leuk NFr Bld Auto 77.7 % LAB 751-8([facility]) Neutrophils # Bld Auto 3.83 1.45-7.50 k/uL LAB 736-9([facility]) Lymphocytes/leuk NFr Bld Auto 12.6 % LAB 731-0([facility]) Lymphocytes # Bld Auto 0.62 Low 1.00-4.00 k/uL LAB 5905-5([facility]) Monocytes/leuk NFr Bld Auto 8.5 % LAB 742-7([facility]) Monocytes # Bld Auto 0.42 <0.87 k/uL LAB 713-8([facility]) Eosinophil/leuk NFr Bld Auto 0.6 % LAB 711-2([facility]) Eosinophil # Bld Auto 0.03 <0.46 k/uL LAB 706-2([facility]) Basophils/leuk NFr Bld Auto 0.2 % LAB 704-7([facility]) Basophils # Bld Auto <0.03 <0.11 k/uL LAB 91561-0([facility]) Imm Granulocytes/christina k NFr Bld Auto 0.4 % LAB 63176-0([facility]) Imm Granulocytes # Bld Auto <0.03 <0.10 k/uL LAB 15741-1(LOINC) nRBC/100 WBC Bld-Rto 0.0 /100 WBC LAB 771-6(LOINC) nRBC # Bld Auto <0.01 <0.01 k/u L LAB 93963-5(LOINC) Differential method Bld Auto Performed By: #### 33684-6 # ### [facility] CLIA [id number] [address] [place] [address] PROGRESS Observed: 08/12/2024 10:05 AM Status: COMPLETED Source: [facility] HNO ID: [id number] Author: NADEEN BECKETT RN Service: ? 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 Enriquez Study start date: 05/24/2024 (start of Pre-Op Methimazole) Date: 08/12/2024 - Cycle 3 Day 1 Accompanied by: family Denies numbness, weakness, gait imbalance, seizures, headaches, or visual disturbances. Denies SOB, no edema, no falls. HANDP, neuro exam: Dr. Salvador Was physical and neuro exam completed by a resident or fellow?: NO MRI visit (even cycles): NO - Change in KPS: NO; Patient's KPS: 80: Normal activity with effort; some signs or symptoms of disease Steroid dose: Dexamethasone STOPPED 07/19/2024. Patient reporting tolerating it well. Patient reported they were started on Predisone taper by Urgent Care for his rash. Per Dr. Salvador he will be transitioned to Kenalog cream instead. Changes in medication regimen: Yes: Patient will be transitioned from Valium to Trazodone for help sleeping. Any new thyroid medications added to regimen: No Hypothyroidism symptoms may include: Tiredness. More sensitivity to cold. Constipation. Dry skin. Weight gain. Puffy face. Hoarse voice. Coarse hair and skin. Muscle weakness. Muscle aches, tenderness and stiffness. Menstrual cycles that are heavier than usual or irregular. Thinning hair. Slowed heart rate, also called bradycardia. Depression. Memory problems. Does patient have any signs or symptoms of hypothyroidism: No Hyperthyroidism sometimes looks like other health problems: Losing weight without trying. Fast heartbeat, a condition called tachycardia. Irregular heartbeat, also called arrhythmia. Pounding of the heart, sometimes called heart palpitations. Increased hunger. Nervousness, anxiety and irritability. Tremor, usually a small trembling in the hands and fingers. Sweating. Changes in menstrual cycles. Increased sensitivity to heat. Changes in bowel patterns, especially more-frequent bowel movements. Enlarged thyroid gland, sometimes called a goiter, which may appear as a swelling at the base of the neck. Tiredness. Muscle weakness. Sleep problems. Warm, moist skin. Thinning skin. Fine, brittle hair. Does patient have any signs or symptoms of hyperthyroidism: No Vitals in clinic: 08/12/2024 11:18 AM ONCOLOGY VITALS (ALL DEPTS) Temp 36.4 ?C (97.5 ?F) Pulse 74 Resp 18 SYSTOLIC 140 DIASTOLIC 97 SpO2 100 % Height 177.1 cm (5' 9.72) Height 70 in Height 177.1 cm WEIGHT (lb) 219 lb 5.7 oz WEIGHT (kg) 99.5 kg BSA (Mosteller Formula) 2.21 m2 BMI 31.72 kg/m2 Weight obtained: YES Labs: Latest Ref Rng 08/12/2024 WBC 3.70 - 11.00 k/uL 4.93 RBC 4.20 - 6.00 m/uL 4.13 (L) Hemoglobin 13.0 - 17.0 g/dL 13.4 Hematocrit 39.0 - 51.0 % 38.0 (L) MCV 80.0 - 100.0 fL 92.0 MCH 26.0 - 34.0 pg 32.4 MCHC 30.5 - 36.0 g/dL 35.3 RDW-CV 11.5 - 15.0 % 15.9 (H) Platelet Count 150 - 400 k/uL 164 MPV 9.0 - 12.7 fL 8.6 (L) Neut% % 77.7 Abs Neut (ANC) 1.45 - 7.50 k/uL 3.83 Lymph% % 12.6 Abs Lymph 1.00 - 4.00 k/uL 0.62 (L) Branch% % 8.5 Abs Branch <0.87 k/uL 0.42 Eosin% % 0.6 Abs Eosin <0.46 k/uL 0.03 Baso% % 0.2 Abs Baso <0.11 k/uL <0.03 Immature Gran % % 0.4 IMMATURE GRANS (ABS) <0.10 k/uL <0.03 NRBC /100 WBC 0.0 Absolute nRBC <0.01 k/uL <0.01 DTYPE Auto Protein, Total 6.3 - 8.0 g/dL 6.8 Albumin 3.9 - 4.9 g/dL 3.8 (L) Calcium 8.5 - 10.2 mg/dL 9.2 Bilirubin, Total 0.2 - 1.3 mg/dL 0.3 Alkaline Phosphatase 38 - 113 U/L 171 (H) AST 14 - 40 U/L 14 ALT 10 - 54 U/L 29 Glucose 74 - 99 mg/dL 112 (H) BUN 9 - 24 mg/dL 15 Creatinine 0.73 - 1.22 mg/dL 1.02 Sodium 136 - 144 mmol/L 137 Potassium 3.7 - 5.1 mmol/L 4.2 Chloride 98 - 107 mmol/L 104 CO2 22 - 30 mmol/L 23 Anion Gap 8 - 15 mmol/L 10 eGFR >=60 mL/min/1.73m? 87 Free T4 0.9 - 1.7 ng/dL 1.1 T4 5.5 - 10.2 ug/dL 5.9 Free T3 2.3 - 4.1 pg/mL 2.6 T3 79 - 165 ng/dL 76 (L) TSH 0.270 - 4.200 mIU/L 3.830 Legend: (L) Low (H) High TFTs (TSH, T3, T4, free T3 and free T4) reviewed and appropriate to continue Methimazole: YES CrCl: 115 ml/min (based on sCr of 1.02 mg/dL) CrCl is >= 50 ml/min to start: YES Out out of range values: NCS Negative Serum test, if applicable: N/A Methimazole: Orders signed for Methimazole to begin for Cycle 3 Day 1: YES Patient is dose level: 2 Dose level - Methimazole - Cycle 3 -1 10 mg daily 1 15 mg daily 2 25 mg daily Methimazole dispensed today by [facility] pharmacy and patient has brought medication to clinic visit: YES Patient received 2 bottles of Methimazole (one 10 mg strength, one 5 mg strength). Each 10mg bottle contains 60 tablets and each 5mg bottle contains 30 tablets, for a total dose of 90 tablets. Patient is aware to keep pill bottle and return to research staff as drug will be destroyed on site following return of unused medication: CORRECT Methimazole may be taken with or without food but it must be swallowed whole without crushing or chewing: Take two 10 mg tablets and ONE 5 mg tablets for a total dose of 25 mg, daily for a 28-day cycle. Patient is due to start Cycle 3 Day 1 Methimazole on: 08/12/2023 Correlative study lab (up to 3 days before starting drug) has been: Completed, 08/12/2024 Was any Methimazole dose changed, missed, reduced or held: No If Methimazole was held, it did NOT EXCEED 4 weeks: N/A Methimazole Returned Medication (C2): Patient returned 2 bottles (one 10 mg strength, one 5 mg strength) with 0 capsules remaining from previous cycle administration. Leftover drug will be destroyed on site ([facility] Drop-[facility]) following return of unused medication: CORRECT Was any Methimazole dose changed, missed, reduced or held in the Cycle 2: No Physician's Choice: Lomustine Starts Cycle 3 per protocol. Cycle 1: Completed 06/28/2024. Cycle 2: Expected on 09/07/2023 Labs reviewed and appropriate to start Lomustine on 09/07/2024: YES Was any Lomustine dose changed, missed, reduced or held: No Schedule of drugs: Date Methimazole Cycle 3 Cycle 08/12 C3D1 08/13 C3D2 08/14 C3D3 08/15 C3D4 08/16 C3D5 08/17 C3D6 08/18 C3D7 08/19 C3D8 08/20 C3D9 08/21 C3D10 08/22 C3D11 08/23 C3D12 08/24 C3D13 08/25 C3D14 08/26 C3D15 08/27 C3D16 08/28 C3D17 08/29 C3D18 08/30 C3D19 08/31 C3D20 09/01 C3D209/02 C3D22 09/03 C3D23 09/04 C3D24 09/05 C3D25 09/06 C3D26 09/07 C3D27 C3D1 Lomustine 09/08 C3D28 Treatment plan: Completed treatments: Pre-Op Methimazole (Dose Level 2; 25 mg daily): 05/24/2024 to 06/15/2024 (including DAY of surgery) Surgical Resection by Dr. Evans: 05/27/2024 Post-Op Methimazole (Dose Level 2; 25 mg daily): 05/27/2024 (POD1) to 06/15/2024 Cycle 1 Methimazole (Dose Level 2; 25 mg daily): 06/16 to 07/13 Cycle 2 Methimazole (Dose Level 2; 25 mg daily): 07/14 to 08/10/2024 Cycle 2 Lomustine 07/28/2024 (200 mg 1Q42D): Cycle 3 Methimazole (Dose Level 2; 25 mg daily): 08/12 to 09/08/2024 Cycle 3 Lomustine (200 mg 1Q42D): 09/07/2024 Ongoing AE Grade Scale Assessment - CTCAE v.5: Neuro, other (thought process changes) - Grade 1 - Baseline; Probable to study disease. Symptom is: Controlled with no intervention; Approximately started: 03/16/2023 to present; Baseline at screening 04/09/2023 Seizures (at risk for) - Grade 1 - Baseline; Unrelated to historical disorder/disease; Probable to study disease. 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 Symptom is: Controlled with lifestyle changes; Approximately started: 05/12/2024 to present; Baseline at screening 05/12/2024; upgraded to grade 2 on 05/26/2024; Current status: Ongoing - worsening. Stable. Elevated Alkaline Phosphatase - Grade 3 - Probable to Methimazole, unlikely to Lomustine, Unlikely to study disease. Symptom is: Controlled; Start date: 07/14/2024; Action required for AE: NO; Intervention required: none; Current status/outcome: Ongoing - stable Rash (Diffused on Upper and Lower Extremities)- Grade 1 - Probable to Methimazole, Unlikely to Lomustine, Unlikely to study disease. Symptom is: Controlled; Start date: 07/25/2024; Action required for AE: NO; Intervention required: Patient instructed to visit his nearest Urgent Care for evaluation; Current status/outcome: Ongoing - stable Decreased RBC - Grade 1 - Unlikely to Methimazole, possible to LomustineUnlikely to study disease. Symptom is: Controlled; Start date: 07/14/2024; Action required for AE: NO; Intervention required: none; Current status/outcome: Ongoing - stable NEW AEs: Elevated AST - Grade 1 - Probable to Methimazole, unlikely to Lomustine, Unlikely to study disease. Symptom is: Controlled; Start date: 07/14/2024; Action required for AE: NO; Intervention required: none; Current status/outcome: Ongoing - stable. RESOLVED 08/12/2024 Elevated ALT - Grade 2 - Probable to Methimazole, unlikely to Lomustine, Unlikely to study disease. Symptom is: Controlled; Start date: 07/14/2024; Action required for AE: NO; Intervention required: none; Current status/outcome: Ongoing - stable. RESOLVED 08/12/2024 RESOLVED AEs: Hypocalcemia - Grade 1 - Possible to Methimazole, Unlikely to study disease. Symptom is: Controlled; Start date: 06/16/2024; Action required for AE: NO; Intervention required: none; Current status/outcome: Ongoing - stable. RESOLVED 07/14/2024 Decreased AST - Grade 1 - unlikely to Methimazole, Unlikely to study disease. Symptom is: Controlled; Start date: 06/16/2024; Action required for AE: NO; Intervention required: none; Current status/outcome: Ongoing - stable. RESOLVED 07/14/2024 Hyponatremia - Grade 1 - unlikely to Methimazole, Unlikely to study disease. Symptom is: Controlled; Start date: 06/16/2024; Action required for AE: NO; Intervention required: none; Current status/outcome: Ongoing - stable. RESOLVED 07/14/2024 Patient does continue to meet eligibility to proceed with therapy per Dr. Salvador(covering): YES Discharged in apparent satisfactory condition. All questions answered. Patient agree to call with questions, concerns, change in symptoms. Patient agreed to call with any symptoms or side effects not mentioned. Patient agreed to plan. Patient has the contact information for treating physician, research staff and the 24-hour [id number] number ([phone] or ) for the Heme/Onc Fellow. Upcoming appointments: -Lab date for next Lomustine. 09/09/2023 - Cycle 4 Day 1 Nadeen Beckett RN 08/12/2024 10:06 AM Chart routed to Dr. Salvador (covering) AND Dr. 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 Enriquez Study start date: 05/24/2024 (start of Pre-Op Methimazole) Date: 08/12/2024 - Cycle 3 Day 1 Accompanied by: family Denies numbness, weakness, gait imbalance, seizures, headaches, or visual disturbances. Denies SOB, no edema, no falls. HANDP, neuro exam: Dr. Salvador Was physical and neuro exam completed by a resident or fellow?: NO MRI visit (even cycles): NO - Change in KPS: NO; Patient's KPS: 80: Normal activity with effort; some signs or symptoms of disease Steroid dose: Dexamethasone STOPPED 07/19/2024. Patient reporting tolerating it well. Patient reported they were started on Predisone taper by Urgent Care for his rash. Per Dr. Salvador he will be transitioned to Kenalog cream instead. Changes in medication regimen: Yes: Patient will be transitioned from Valium to Trazodone for help sleeping. Any new thyroid medications added to regimen: No Hypothyroidism symptoms may include: Tiredness. More sensitivity to cold. Constipation. Dry skin. Weight gain. Puffy face. Hoarse voice. Coarse hair and skin. Muscle weakness. Muscle aches, tenderness and stiffness. Menstrual cycles that are heavier than usual or irregular. Thinning hair. Slowed heart rate, also called bradycardia. Depression. Memory problems. Does patient have any signs or symptoms of hypothyroidism: No Hyperthyroidism sometimes looks like other health problems: Losing weight without trying. Fast heartbeat, a condition called tachycardia. Irregular heartbeat, also called arrhythmia. Pounding of the heart, sometimes called heart palpitations. Increased hunger. Nervousness, anxiety and irritability. Tremor, usually a small trembling in the hands and fingers. Sweating. Changes in menstrual cycles. Increased sensitivity to heat. Changes in bowel patterns, especially more-frequent bowel movements. Enlarged thyroid gland, sometimes called a goiter, which may appear as a swelling at the base of the neck. Tiredness. Muscle weakness. Sleep problems. Warm, moist skin. Thinning skin. Fine, brittle hair. Does patient have any signs or symptoms of hyperthyroidism: No Vitals in clinic: 08/12/2024 11:18 AM ONCOLOGY VITALS (ALL DEPTS) Temp 36.4 ?C (97.5 ?F) Pulse 74 Resp 18 SYSTOLIC 140 DIASTOLIC 97 SpO2 100 % Height 177.1 cm (5' 9.72) Height 70 in Height 177.1 cm WEIGHT (lb) 219 lb 5.7 oz WEIGHT (kg) 99.5 kg BSA (Mosteller Formula) 2.21 m2 BMI 31.72 kg/m2 Weight obtained: YES Labs: Latest Ref Rng 08/12/2024 WBC 3.70 - 11.00 k/uL 4.93 RBC 4.20 - 6.00 m/uL 4.13 (L) Hemoglobin 13.0 - 17.0 g/dL 13.4 Hematocrit 39.0 - 51.0 % 38.0 (L) MCV 80.0 - 100.0 fL 92.0 MCH 26.0 - 34.0 pg 32.4 MCHC 30.5 - 36.0 g/dL 35.3 RDW-CV 11.5 - 15.0 % 15.9 (H) Platelet Count 150 - 400 k/uL 164 MPV 9.0 - 12.7 fL 8.6 (L) Neut% % 77.7 Abs Neut (ANC) 1.45 - 7.50 k/uL 3.83 Lymph% % 12.6 Abs Lymph 1.00 - 4.00 k/uL 0.62 (L) Branch% % 8.5 Abs Branch <0.87 k/uL 0.42 Eosin% % 0.6 Abs Eosin <0.46 k/uL 0.03 Baso% % 0.2 Abs Baso <0.11 k/uL <0.03 Immature Gran % % 0.4 IMMATURE GRANS (ABS) <0.10 k/uL <0.03 NRBC /100 WBC 0.0 Absolute nRBC <0.01 k/uL <0.01 DTYPE Auto Protein, Total 6.3 - 8.0 g/dL 6.8 Albumin 3.9 - 4.9 g/dL 3.8 (L) Calcium 8.5 - 10.2 mg/dL 9.2 Bilirubin, Total 0.2 - 1.3 mg/dL 0.3 Alkaline Phosphatase 38 - 113 U/L 171 (H) AST 14 - 40 U/L 14 ALT 10 - 54 U/L 29 Glucose 74 - 99 mg/dL 112 (H) BUN 9 - 24 mg/dL 15 Creatinine 0.73 - 1.22 mg/dL 1.02 Sodium 136 - 144 mmol/L 137 Potassium 3.7 - 5.1 mmol/L 4.2 Chloride 98 - 107 mmol/L 104 CO2 22 - 30 mmol/L 23 Anion Gap 8 - 15 mmol/L 10 eGFR >=60 mL/min/1.73m? 87 Free T4 0.9 - 1.7 ng/dL 1.1 T4 5.5 - 10.2 ug/dL 5.9 Free T3 2.3 - 4.1 pg/mL 2.6 T3 79 - 165 ng/dL 76 (L) TSH 0.270 - 4.200 mIU/L 3.830 Legend: (L) Low (H) High TFTs (TSH, T3, T4, free T3 and free T4) reviewed and appropriate to continue Methimazole: YES CrCl: 115 ml/min (based on sCr of 1.02 mg/dL) CrCl is >= 50 ml/min to start: YES Out out of range values: NCS Negative Serum test, if applicable: N/A Methimazole: Orders signed for Methimazole to begin for Cycle 3 Day 1: YES Patient is dose level: 2 Dose level - Methimazole - Cycle 3 -1 10 mg daily 1 15 mg daily 2 25 mg daily Methimazole dispensed today by [facility] pharmacy and patient has brought medication to clinic visit: YES Patient received 2 bottles of Methimazole (one 10 mg strength, one 5 mg strength). Each 10mg bottle contains 60 tablets and each 5mg bottle contains 30 tablets, for a total dose of 90 tablets. Patient is aware to keep pill bottle and return to research staff as drug will be destroyed on site following return of unused medication: CORRECT Methimazole may be taken with or without food but it must be swallowed whole without crushing or chewing: Take two 10 mg tablets and ONE 5 mg tablets for a total dose of 25 mg, daily for a 28-day cycle. Patient is due to start Cycle 3 Day 1 Methimazole on: 08/12/2023 Correlative study lab (up to 3 days before starting drug) has been: Completed, 08/12/2024 Was any Methimazole dose changed, missed, reduced or held: No If Methimazole was held, it did NOT EXCEED 4 weeks: N/A Methimazole Returned Medication (C2): Patient returned 2 bottles (one 10 mg strength, one 5 mg strength) with 0 capsules remaining from previous cycle administration. Leftover drug will be destroyed on site ([facility] Drop[facility]) following return of unused medication: CORRECT Was any Methimazole dose changed, missed, reduced or held in the Cycle 2: No Physician's Choice: Lomustine Starts Cycle 3 per protocol. Cycle 1: Completed 06/28/2024. Cycle 2: Expected on 09/07/2023 Labs reviewed and appropriate to start Lomustine on 09/07/2024: YES Was any Lomustine dose changed, missed, reduced or held: No Schedule of drugs: Date Methimazole Cycle 3 Cycle 08/12 C3D1 08/13 C3D2 08/14 C3D3 08/15 C3D4 08/16 C3D5 08/17 C3D6 08/18 C3D7 08/19 C3D8 08/20 C3D9 08/21 C3D10 08/22 C3D11 08/23 C3D12 08/24 C3D13 08/25 C3D14 08/26 C3D15 08/27 C3D16 08/28 C3D17 08/29 C3D18 08/30 C3D19 08/31 C3D20 09/01 C3D21 09/02 C3D22 09/03 C3D23 09/04 C3D24 09/05 C3D25 09/06 C3D26 09/07 C3D27 C3D1 Lomustine 09/08 C3D28 Treatment plan: Completed treatments: Pre-Op Methimazole (Dose Level 2; 25 mg daily): 05/24/2024 to 06/15/2024 (including DAY of surgery) Surgical Resection by Dr. Evans: 05/27/2024 Post-Op Methimazole (Dose Level 2; 25 mg daily): 05/27/2024 (POD1) to 06/15/2024 Cycle 1 Methimazole (Dose Level 2; 25 mg daily): 06/16 to 07/13 Cycle 2 Methimazole (Dose Level 2; 25 mg daily): 07/14 to 08/10/2024 Cycle 2 Lomustine 07/28/2024 (200 mg 1Q42D): Cycle 3 Methimazole (Dose Level 2; 25 mg daily): 08/12 to 09/08/2024 Cycle 3 Lomustine (200 mg 1Q42D): 09/07/2024 Ongoing AE Grade Scale Assessment - CTCAE v.5: Neuro, other (thought process changes) - Grade 1 - Baseline; Probable to study disease. Symptom is: Controlled with no intervention; Approximately started: 03/16/2023 to present; Baseline at screening 04/09/2023 Seizures (at risk for) - Grade 1 - Baseline; Unrelated to historical disorder/disease; Probable to study disease. 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 Symptom is: Controlled with lifestyle changes; Approximately started: 05/12/2024 to present; Baseline at screening 05/12/2024; upgraded to grade 2 on 05/26/2024; Current status: Ongoing - worsening. Stable. Elevated Alkaline Phosphatase - Grade 3 - Probable to Methimazole, unlikely to Lomustine, Unlikely to study disease. Symptom is: Controlled; Start date: 07/14/2024; Action required for AE: NO; Intervention required: none; Current status/outcome: Ongoing - stable Rash (Diffused on Upper and Lower Extremities)- Grade 1 - Probable to Methimazole, Unlikely to Lomustine, Unlikely to study disease. Symptom is: Controlled; Start date: 07/25/2024; Action required for AE: NO; Intervention required: Patient instructed to visit his nearest Urgent Care for evaluation; Current status/outcome: Ongoing - stable Decreased RBC - Grade 1 - Unlikely to Methimazole, possible to LomustineUnlikely to study disease. Symptom is: Controlled; Start date: 07/14/2024; Action required for AE: NO; Intervention required: none; Current status/outcome: Ongoing - stable NEW AEs: Elevated AST - Grade 1 - Probable to Methimazole, unlikely to Lomustine, Unlikely to study disease. Symptom is: Controlled; Start date: 07/14/2024; Action required for AE: NO; Intervention required: none; Current status/outcome: Ongoing - stable. RESOLVED 08/12/2024 Elevated ALT - Grade 2 - Probable to Methimazole, unlikely to Lomustine, Unlikely to study disease. Symptom is: Controlled; Start date: 07/14/2024; Action required for AE: NO; Intervention required: none; Current status/outcome: Ongoing - stable. RESOLVED 08/12/2024 RESOLVED AEs: Hypocalcemia - Grade 1 - Possible to Methimazole, Unlikely to study disease. Symptom is: Controlled; Start date: 06/16/2024; Action required for AE: NO; Intervention required: none; Current status/outcome: Ongoing - stable. RESOLVED 07/14/2024 Decreased AST - Grade 1 - unlikely to Methimazole, Unlikely to study disease. Symptom is: Controlled; Start date: 06/16/2024; Action required for AE: NO; Intervention required: none; Current status/outcome: Ongoing - stable. RESOLVED 07/14/2024 Hyponatremia - Grade 1 - unlikely to Methimazole, Unlikely to study disease. Symptom is: Controlled; Start date: 06/16/2024; Action required for AE: NO; Intervention required: none; Current status/outcome: Ongoing - stable. RESOLVED 07/14/2024 Patient does continue to meet eligibility to proceed with therapy per Dr. Salvador(covering): YES Discharged in apparent satisfactory condition. All questions answered. Patient agree to call with questions, concerns, change in symptoms. Patient agreed to call with any symptoms or side effects not mentioned. Patient agreed to plan. Patient has the contact information for treating physician, research staff and the 24-hour [id number] number ([phone] or ) for the Heme/Onc Fellow. Upcoming appointments: -Lab date for next Lomustine. 09/09/2023 - Cycle 4 Day 1 Nadeen Beckett RN 08/12/2024 10:06 AM Chart routed to Dr. Salvador (covering) AND Dr. Enriquez (Primary): YES Allergies As of Date: 08/12/2024 (No Known Allergies) Date Reviewed: 08/12/2024 Reviewed by: Karla Pedroza MA - Fully Assessed Primary Visit Diagnosis:GBM (glioblastoma multiforme) (HCC) [C71.9] Prescriptions as of 09/02/2024 - lomustine (GLEOSTINE) 100 mg capsule Take one 8mg Zofran on an empty stomach in the evening. Wait ONE hour. Take TWO 100mg capsule(s) Lomustine by mouth for a total dose of 200mg. Take one 8 mg Zofran twenty-four hours later. Take on Day 1 of each 42 day cycle. - lacosamide (VIMPAT) 150 mg tab Take 1 tablet by mouth two times a day. - methIMAzole (TAPAZOLE) 5 mg tablet Take TWO 10 mg tablets and ONE 5 mg tablet for a total dose of 25 mg, daily. - methIMAzole (TAPAZOLE) 10 mg tablet Take TWO 10 mg tablets and ONE 5 mg tablet for a total dose of 25 mg, daily. - triamcinolone (KENALOG) 0.025 % cream Apply to affected area two times a day. - traZODone (DESYREL) 50 mg tablet Take 1 tablet by mouth daily at bedtime. - predniSONE (DELTASONE) 10 mg tablet Day #1 - 6 tablets PO then Day #2 - 5 tablets PO then Day #3 - 4 tablets PO then Day #4 - 3 tablets PO then Day #5 - 2 tablets PO then Day #6 - 1 tablet PO - ondansetron (ZOFRAN) 8 mg tablet Take one tablet by mouth on an empty stomach in the evening one hour prior to chemo. Then take one tablet 24 hours after chemo. May repeat dose every 8-12 hours if needed to prevent nausea - meclizine (ANTIVERT) 25 mg tab Take 1 tablet by mouth three times a day. - valACYclovir (VALTREX) 1 gram tablet Take 1,000 mg by mouth three times a day. - midazolam (NAYZILAM) 5 mg/spray (0.1 mL) nasal spray Use 1 [place] in the nose as needed for up to 10 days. May repeat dose in alternate nostril after 10 minutes based on response and tolerability. - sennosides (SENNA ORAL) Take by mouth. - DIETARY SUPPLEMENT,MISC COMB14 ORAL Take by mouth. Biomega 1000mg containing vitamin E and pure anchovy - medical supply, miscellaneous (MISCELLANEOUS MEDICAL SUPPLY MIS) Neurotrophin - acetaminophen (TYLENOL) 325 mg tablet 2 tablets by ORAL/FEEDING TUBE route every 4 hours as needed for pain. - pantoprazole DR (PROTONIX) 20 mg tablet Take 1 tablet by mouth DAILY (6 AM). Problem List As Of Date 08/12/2024 Noted Resolved Chest pain [R07.9] 04/25/2010 05/26/2024 Brain mass [G93.89] 03/17/2023 11/17/2023 Obesity, Class I, BMI 30-34.9 [E66.811] 03/17/2023 Brain compression (HCC) [G93.5] 03/20/2023 S/P brain surgery [Z98.890] 03/20/2023 11/17/2023 At risk for seizures [Z91.89] 03/20/2023 Cerebral edema (HCC) [G93.6] 03/20/2023 GBM (glioblastoma multiforme) (HCC) [C71.9] 04/07/2023 Syncope, unspecified syncope type [R55] 11/01/2023 11/03/2023 Examination of participant in clinical trial [Z*11/05/2023 11/17/2023 Forehead pain [R51.9] 11/05/2023 PONV (postoperative nausea and vomiting) [R11.2*05/26/2024 Acute post-operative pain [G89.18] 05/29/2024 Encounter Status:Closed by NADEEN BECKETT on 08/12/24 PROGRESS Observed: 08/05/2024 1:13 PM Status: COMPLETED [id number] Author: EZEQUIEL RAMIREZ RPh Service: ? Author Type: Pharmacist Type: Progress Notes Filed: 09/21/2024 11:34 Note Text: [facility] will follow up prior to next cycle expected to begin 10/18 Ezequiel Ramirez PharmD Clinical Pharmacist, Oncology [facility] P: , F: Pool: P [facility] Pool #: [id number] PROGRESS Observed: 08/05/2024 1:13 PM Status: COMPLETED Source: [facility] HNO ID: [id number] Author: EZEQUIEL RAMIREZ [facility] Service: ? Author Type: ? Type: Progress Notes Filed: 08/11/2024 08:53 Note Text: [facility] Specialty Refill Assessment Medication(s): Gleostine Reviewed OV note on 07/14/24 - pt began CASE 3322 clinical trial with methimazole + chemo - methimazole starte 05/24 preop; resection 05/27; then gleostine started 06/28 (per RN note 07/14). Labs reviewed. Gleostine (42 day) cycles are as follows: C1D1 06/28/24 C2D1 08/12/24 - delayed for holiday/OV lab appt C3D1 09/23/24 Patient reported cycle 08/11/24? --however pt will not receive until 08/12, and he has f/u for OV/labs on 08/12/24 where he will be instructed if he is cleared to begin. Msg sent to provider/RN for continuity of care Next clinic visit scheduled 08/12/24. Will proceed with shipment so patient has med on hand to begin as directed. ALLERGIES No Known Allergies Patient's current medication list and adherence status to current therapy were reviewed by Specialty Pharmacy clinical pharmacist to identify any new drug interactions or non-compliance to therapy. Therapy continues to be appropriate for disease, patient response, and medical condition. Verification of therapeutic benefit and effectiveness with current therapy was completed. Adverse events, barriers in adherence, and side effects were assessed and addressed if applicable. Will proceed with refill with no changes in therapy - patient progressing towards achieving therapeutic goals based on medication-specific laboratory parameters, disease state markers and outcomes. Office/provider notes have been reviewed prior to dispensing the medication. Ezequiel Ramirez PharmD Clinical Pharmacist, Oncology [facility] P: , F: Pool: P [facility] Pool #: [id number] Tracer Lathe Set Up Operator Assessment Patient confirmed: Yes Med/dose confirmed: Yes Supplies needed: No supplies needed Missed doses: No Estimated days supply on hand: 0 Next cycle/dose due: 08/11/24 Copay amount: 30 Copay form of payment: Credit card on file Delivery method: FedEx Signature required: No Delivery address: [address] [place], [place] [id number] Delivery date: 08/12/24 Questions or concerns for the pharmacist?: No Did you have any side effects believed to be related to this medication, that resulted in hospitalization?: No Current Outpatient Medications on File Prior to Visit Medication Sig lomustine (GLEOSTINE) 100 mg capsule Take one 8mg Zofran on an empty stomach in the evening. Wait ONE hour. Take TWO 100mg capsule(s) Lomustine by mouth for a total dose of 200mg. Take one 8 mg Zofran twenty-four hours later. Take on Day 1 of each 42 day cycle. predniSONE (DELTASONE) 10 mg tablet Day #1 - 6 tablets PO then Day #2 - 5 tablets PO then Day #3 - 4 tablets PO then Day #4 - 3 tablets PO then Day #5 - 2 tablets PO then Day #6 - 1 tablet PO diazePAM (VALIUM) 10 mg tablet Take 1 tablet by mouth at bedtime as needed for sedation for up to 30 days. methIMAzole (TAPAZOLE) 5 mg tablet Take TWO 10 mg tablets and ONE 5 mg tablet for a total dose of 25 mg, daily. methIMAzole (TAPAZOLE) 10 mg tablet Take TWO 10 mg tablets and ONE 5 mg tablet for a total dose of 25 mg, daily. ondansetron (ZOFRAN) 8 mg tablet Take one tablet by mouth on an empty stomach in the evening one hour prior to chemo. Then take one tablet 24 hours after chemo. May repeat dose every 8-12 hours if needed to prevent nausea lacosamide (VIMPAT) 150 mg tab Take 1 tablet by mouth two times a day. meclizine (ANTIVERT) 25 mg tab Take 1 tablet by mouth three times a day. valACYclovir (VALTREX) 1 gram tablet Take 1,000 mg by mouth three times a day. midazolam (NAYZILAM) 5 mg/spray (0.1 mL) nasal spray Use 1 [place] in the nose as needed for up to 10 days. May repeat dose in alternate nostril after 10 minutes based on response and tolerability. sennosides (SENNA ORAL) Take by mouth. DIETARY SUPPLEMENT,MISC COMB14 ORAL Take by mouth. Biomega 1000mg containing vitamin E and pure anchovy medical supply, miscellaneous (MISCELLANEOUS MEDICAL SUPPLY MISC) Neurotrophin acetaminophen (TYLENOL) 325 mg tablet 2 tablets by ORAL/FEEDING TUBE route every 4 hours as needed for pain. pantoprazole DR (PROTONIX) 20 mg tablet Take 1 tablet by mouth DAILY (6 AM). No current facility-administered medications on file prior to visit. [facility] CLINICAL ASSESSMENT - HEMATOLOGY ONCOLOGY V6: Ivent complete: No Assessment to use: Refill Lab monitoring inclusive of CBC, Chem-7, and other labs as pertinent for therapy: Yes Chemo cycle timing assessment: Yes Assessment of injection issues: N/A Current medication list (including drug interaction assessment): Yes Experience of adverse reactions to the medication: Yes Date of influenza vaccination reminder: 02/25/2024 Date of most recent vaccination assessment: 02/25/2024 Treatment Plan Information: Diagnosis: GBM Previous treatment(s): Gross total resection [03/19/2023] , GCAR AGILE, randomized to [id number] IV twice weekly arm + Standard concurrent chemotherapy and radiation ,Adjuvant temozolomide PO D1-5 q 28 days Starting Dose/Titration: - 200mg as a single dose every 6 weeks - Dosing is 90 mg/m2 (200mg is max dose) Administration: - Administering on an empty stomach may reduce the incidence of nausea and vomiting. - Do not break capsules. If contact with skin occurs, immediately wash area (thoroughly). Avoid exposure to broken capsules. Supportive Care: - Associated with moderate-highly emetogenic risk; anti-emetics are recommended to prevent nauea and vomiting Side Effects/Warnings: include but are not limited to bone marrow suppression, hepatotoxicity, pulmonary toxicity, renal toxicity, secondary malignancies (MDS/AML) Monitoring: - CBC with differential and platelet count (weekly for at least 6 weeks after a dose) - Hepatic and renal function tests (periodic) - Pulmonary function tests (baseline and periodic) Drug-Drug Interactions: none identrified per Lexicomp 02/25/24 Baseline: - CrCl 104.4 ml/min Est. Tx Plan Start Date: No information available Estimated Start Date Info: Per Dr. Enriquez's discretion Est. Estimated Treatment Duration: Max 6 cycles Maralsergio Martel PROGRESS Observed: 07/25/2024 6:17 PM Status: COMPLETED Source: [facility] HNO ID: [id number] Author: CASSANDRA NIEVES PA-C Service: ? Author Type: Physician Stewarding Supervisor Type: Progress Notes Filed: 07/25/2024 19:03 Note Text: Subjective Angel Keating is a 53 year old male with a past medical history of glioblastoma (currently on chemo) who presents to express care today for evaluation of a rash and insomnia. Patient states that he had his last round of chemotherapy about 2 weeks ago and the rash started shortly after that. He states that it is all over his body and is itchy. He denies any changes in soaps, shampoos, lotions, or detergents. He states that he has been having difficulty sleeping because the rash has been so bad. He states that he did talk to his oncologist today and was advised to come to express care for steroids and sleeping medication. Review of Systems Constitutional: Negative for chills, diaphoresis and fever. Skin: Positive for rash. Negative for wound. Neurological: Negative for weakness and headaches. Psychiatric/Behavioral: Positive for sleep disturbance. All other systems reviewed and are negative. Objective BP 123/83 (BP Site: Right Arm, BP Position: Sitting, BP Cuff Size: Regular Adult) Pulse 89 Temp 36.8 ?C (98.3 ?F) (Right Tympanic) Resp 18 Ht 177.2 cm (5' 9.75) Wt 98.5 kg (217 lb 4.2 oz) SpO2 98% BMI 31.40 kg/m? Physical Exam Vitals reviewed. Constitutional: General: He is not in acute distress. Appearance: Normal appearance. He is normal weight. He is not ill-appearing or toxic-appearing. Comments: The patient appears to be non-toxic, in no acute distress, and resting comfortably on the table. HENT: Head: Normocephalic and atraumatic. Eyes: Extraocular Movements: Extraocular movements intact. Musculoskeletal: General: Normal range of motion. Cervical back: Normal range of motion. Skin: General: Skin is warm and dry. Findings: Rash present. No erythema. Rash is papular (all over body, excoriated). Neurological: General: No focal deficit present. Mental Status: He is alert and oriented to person, place, and time. Mental status is at baseline. Psychiatric: Mood and Affect: Mood normal. Behavior: Behavior normal. Thought Content: Thought content normal. Assessment and Plan Exam reveals papular erythematous lesions with excoriation all over the body. No signs of secondary bacterial infection. Patient counseled regarding suspected diagnosis and given prescriptions for prednisone and Valium. Advised to follow-up with his oncologist as needed. ASSESSMENT/PLAN: 1. Rash - ICD9: 782.1, ICD10: R21 (primary diagnosis) - PREDNISONE 10 MG TABLET 2. Pruritus - ICD9: 698.9, ICD10: L29.9 - PREDNISONE 10 MG TABLET 3. Insomnia, unspecified type - ICD9: 780.52, ICD10: G47.00 - DIAZEPAM 10 MG TABLET Medical Decision Making: Problems: Low: Acute, uncomplicated illness or injury Risk: Minimal: Minimal risk from testing/treatment Moderate: Drug management Medical Decision Making Level: 3 - Low I spent a total of 20 minutes on the date of the service which included preparing to see the patient, [id number] patient care, completing clinical documentation, performing a medically appropriate examination, counseling and educating the patient/family/caregiver, and ordering medications, tests, or procedures. Cassandra Nieves PA-C CNOV Observed: 07/25/2024 5:35 PM Status: COMPLETED Source: [facility] Office Visit (OMAR) ANGEL KEATING ([id number]) 1970 M Date Time Provider Department 07/25/24 5:35 PM CASSANDRA NIEVES During your visit today, we recorded the following information about you: Temperature Pulse Respiration Blood pressure 98.3 degrees 89/minute 18/minute 123/83 Weight Height 98.5 kg 1.772 m Cassandra Nieves PA-C 07/25/2024 7:03 PM Signed Subjective Angel Keating is a 53 year old male with a past medical history of glioblastoma (currently on chemo) who presents to express care today for evaluation of a rash and insomnia. Patient states that he had his last round of chemotherapy about 2 weeks ago and the rash started shortly after that. He states that it is all over his body and is itchy. He denies any changes in soaps, shampoos, lotions, or detergents. He states that he has been having difficulty sleeping because the rash has been so bad. He states that he did talk to his oncologist today and was advised to come to express care for steroids and sleeping medication. Review of Systems Constitutional: Negative for chills, diaphoresis and fever. Skin: Positive for rash. Negative for wound. Neurological: Negative for weakness and headaches. Psychiatric/Behavioral: Positive for sleep disturbance. All other systems reviewed and are negative. Objective BP 123/83 (BP Site: Right Arm, BP Position: Sitting, BP Cuff Size: Regular Adult) Pulse 89 Temp 36.8 ?C (98.3 ?F) (Right Tympanic) Resp 18 Ht 177.2 cm (5' 9.75) Wt 98.5 kg (217 lb 4.2 oz) SpO2 98% BMI 31.40 kg/m? Physical Exam Vitals reviewed. Constitutional: General: He is not in acute distress. Appearance: Normal appearance. He is normal weight. He is not ill-appearing or toxic-appearing. Comments: The patient appears to be non-toxic, in no acute distress, and resting comfortably on the table. HENT: Head: Normocephalic and atraumatic. Eyes: Extraocular Movements: Extraocular movements intact. Musculoskeletal: General: Normal range of motion. Cervical back: Normal range of motion. Skin: General: Skin is warm and dry. Findings: Rash present. No erythema. Rash is papular (all over body, excoriated). Neurological: General: No focal deficit present. Mental Status: He is alert and oriented to person, place, and time. Mental status is at baseline. Psychiatric: Mood and Affect: Mood normal. Behavior: Behavior normal. Thought Content: Thought content normal. Assessment and Plan Exam reveals papular erythematous lesions with excoriation all over the body. No signs of secondary bacterial infection. Patient counseled regarding suspected diagnosis and given prescriptions for prednisone and Valium. Advised to follow-up with his oncologist as needed. ASSESSMENT/PLAN: 1. Rash - ICD9: 782.1, ICD10: R21 (primary diagnosis) - PREDNISONE 10 MG TABLET 2. Pruritus - ICD9: 698.9, ICD10: L29.9 - PREDNISONE 10 MG TABLET 3. Insomnia, unspecified type - ICD9: 780.52, ICD10: G47.00 - DIAZEPAM 10 MG TABLET Medical Decision Making: Problems: Low: Acute, uncomplicated illness or injury Risk: Minimal: Minimal risk from testing/treatment Moderate: Drug management Medical Decision Making Level: 3 - Low I spent a total of 20 minutes on the date of the service which included preparing to see the patient, [id number] patient care, completing clinical documentation, performing a medically appropriate examination, counseling and educating the patient/family/caregiver, and ordering medications, tests, or procedures. Cassandra Nieves PA-C Referring Provider: PATRICIA ENRIQUEZ [[id number]] Allergies As of Date: 07/25/2024 (No Known Allergies) Date Reviewed: 07/25/2024 Reviewed by: Cassandra Nieves PA-C - Fully Assessed Reason for Visit: Rash [1087] Cmt: Rash on body that started about 2wks ago, spoke to oncologist today, pt was told that he should come in and get checked out and needing to take photo's, pt is requesting a sleep-aid, pt sleeps here and there, itching and pt is requesting something for itching, has taken otc meds and has minimal to some relief, fatigue, Primary Visit Diagnosis:Rash [R21] Other Visit Diagnoses:Pruritus [L29.9] Insomnia, unspecified type [G47.00] Order(s):predniSONE (DELTASONE) 10 mg tabletDay #1 - 6 tablets PO then Day #2 - 5 tablets PO then Day #3 - 4 tablets PO then Day #4 - 3 tablets PO then Day #5 - 2 tablets PO then Day #6 - 1 tablet PODisp: 21 tabletRfl: 0 diazePAM (VALIUM) 10 mg tabletTake 1 tablet by mouth at bedtime as needed for sedation for up to 30 days.Disp: 30 tabletRfl: 0 Prescriptions as of 07/25/2024 - predniSONE (DELTASONE) 10 mg tablet Day #1 - 6 tablets PO then Day #2 - 5 tablets PO then Day #3 - 4 tablets PO then Day #4 - 3 tablets PO then Day #5 - 2 tablets PO then Day #6 - 1 tablet PO - diazePAM (VALIUM) 10 mg tablet Take 1 tablet by mouth at bedtime as needed for sedation for up to 30 days. - methIMAzole (TAPAZOLE) 5 mg tablet Take TWO 10 mg tablets and ONE 5 mg tablet for a total dose of 25 mg, daily. - methIMAzole (TAPAZOLE) 10 mg tablet Take TWO 10 mg tablets and ONE 5 mg tablet for a total dose of 25 mg, daily. - ondansetron (ZOFRAN) 8 mg tablet Take one tablet by mouth on an empty stomach in the evening one hour prior to chemo. Then take one tablet 24 hours after chemo. May repeat dose every 8-12 hours if needed to prevent nausea - lacosamide (VIMPAT) 150 mg tab Take 1 tablet by mouth two times a day. - lomustine (GLEOSTINE) 100 mg capsule Take one 8 mg Zofran on an empty stomach in the evening. Wait ONE hour. Take TWO 100 mg capsule(s) Lomustine by mouth for a total dose of 200 mg. Take one 8 mg Zofran twenty-four hours later. Take on Day 1 of each 42 day cycle. - meclizine (ANTIVERT) 25 mg tab Take 1 tablet by mouth three times a day. - valACYclovir (VALTREX) 1 gram tablet Take 1,000 mg by mouth three times a day. - midazolam (NAYZILAM) 5 mg/spray (0.1 mL) nasal spray Use 1 [place] in the nose as needed for up to 10 days. May repeat dose in alternate nostril after 10 minutes based on response and tolerability. - sennosides (SENNA ORAL) Take by mouth. - DIETARY SUPPLEMENT,MISC COMB14 ORAL Take by mouth. Biomega 1000mg containing vitamin E and pure anchovy - medical supply, miscellaneous (MISCELLANEOUS MEDICAL SUPPLY MIS) Neurotrophin - acetaminophen (TYLENOL) 325 mg tablet 2 tablets by ORAL/FEEDING TUBE route every 4 hours as needed for pain. - pantoprazole DR (PROTONIX) 20 mg tablet Take 1 tablet by mouth DAILY (6 AM). Problem List As Of Date 07/25/2024 Noted Resolved Chest pain [R07.9] 04/25/2010 05/26/2024 Brain mass [G93.89] 03/17/2023 11/17/2023 Obesity, Class I, BMI 30-34.9 [E66.811] 03/17/2023 Brain compression (HCC) [G93.5] 03/20/2023 S/P brain surgery [Z98.890] 03/20/2023 11/17/2023 At risk for seizures [Z91.89] 03/20/2023 Cerebral edema (HCC) [G93.6] 03/20/2023 GBM (glioblastoma multiforme) (HCC) [C71.9] 04/07/2023 Syncope, unspecified syncope type [R55] 11/01/2023 11/03/2023 Examination of participant in clinical trial [Z*11/05/2023 11/17/2023 Forehead pain [R51.9] 11/05/2023 PONV (postoperative nausea and vomiting) [R11.2*05/26/2024 Acute post-operative pain [G89.18] 05/29/2024 Prescriptions ordered this encounter Disp Refills Start End PREDNISONE 10 MG TABLET 21 t* 0 07/25/2024 Sig: Day #1 - 6 tablets PO then Day #2 - 5 tablets PO then Day #3 - 4 tablets PO then Day #4 - 3 tablets PO then Day #5 - 2 tablets PO then Day #6 - 1 tablet PO DIAZEPAM 10 MG TABLET 30 t* 0 07/25/2024 08/24/2024 Route: ORAL Sig: Take 1 tablet by mouth at bedtime as needed for sedation for up to 30 days. Medications Discontinued During This Encounter Prescriptions - acetaZOLAMIDE (DIAMOX) 250 mg tablet (Discontinued) Reported on 07/25/2024 - iv contrast (will be provided with radiology test) (Discontinued) Reported on 07/25/2024 - iv contrast (will be provided with radiology test) (Discontinued) Reported on 07/25/2024 - iv contrast (will be provided with radiology test) (Discontinued) Reported on 07/25/2024 Encounter Status:Closed by CASSANDRA NIEVES on 07/25/24 CNPN Observed: 07/25/2024 12:00 AM Status: COMPLETED Source: [facility] Telephone (NSCAMN) ANGEL KEATING ([id number]) 1970 Date Time Provider Department 07/25/24 NADEEN BECKETT [facility] During your visit today, we recorded the following information about you: Nadeen Beckett RN 08/05/2024 4:10 PM Signed Telephone Follow up: IRB#: [id number] Case [id number] - Targeting Transsulfuration via Suppression of Thyroid Hormone Signaling in Progressive Glioblastoma; Modified Phase 1/2 and Pharmacodynamic Trial of Methimazole in Patients with Progressive WHO Grade 4 Glioblastoma PATIENT NAME: Angel Keating : 1970 Patient study ID: [id number] Primary MD: Dr. Enriquez Current cycle: C2D12 Patient: Angel Keating, 1970 Patient identified by name and date of : YES Spoke to: Patient Reason for call: Patient arrived in-person to clinic even though he was instructed prior that this would be a telephone visit. Patient reports confusing the appointments in [facility]. He has stated that he has had a rash start from his arms and legs. Patient instructed to visit an urgent care to be evaluated. Steroids: Dexamethasone STOPPED 07/19/2024. Patient reporting tolerating it well. Ongoing AE Grade Scale Assessment - CTCAE v.5: Neuro, other (thought process changes) - Grade 1 - Baseline; Probable to study disease. Symptom is: Controlled with no intervention; Approximately started: 03/16/2023 to present; Baseline at screening 04/09/2023 Seizures (at risk for) - Grade 1 - Baseline; Unrelated to historical disorder/disease; Probable to study disease. 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 Symptom is: Controlled with lifestyle changes; Approximately started: 05/12/2024 to present; Baseline at screening 05/12/2024; upgraded to grade 2 on 05/26/2024; Current status: Ongoing - worsening. Stable. Elevated Alkaline Phosphatase - Grade 3 - Probable to Methimazole, unlikely to Lomustine, Unlikely to study disease. Symptom is: Controlled; Start date: 07/14/2024; Action required for AE: NO; Intervention required: none; Current status/outcome: Ongoing - stable Elevated AST - Grade 1 - Probable to Methimazole, unlikely to Lomustine, Unlikely to study disease. Symptom is: Controlled; Start date: 07/14/2024; Action required for AE: NO; Intervention required: none; Current status/outcome: Ongoing - stable Elevated ALT - Grade 2 - Probable to Methimazole, unlikely to Lomustine, Unlikely to study disease. Symptom is: Controlled; Start date: 07/14/2024; Action required for AE: NO; Intervention required: none; Current status/outcome: Ongoing - stable Decreased RBC - Grade 1 - Unlikely to Methimazole, possible to LomustineUnlikely to study disease. Symptom is: Controlled; Start date: 07/14/2024; Action required for AE: NO; Intervention required: none; Current status/outcome: Ongoing - stable NEW AEs: Rash (Upper and Lower Extremities - Grade 1 - Probable to Methimazole, Unlikely to Lomustine, Unlikely to study disease. Symptom is: Controlled; Start date: 07/25/2024; Action required for AE: NO; Intervention required: Patient instructed to visit his nearest Urgent Care for evaluation; Current status/outcome: Ongoing - stable RESOLVED AEs: Hypocalcemia - Grade 1 - Possible to Methimazole, Unlikely to study disease. Symptom is: Controlled; Start date: 06/16/2024; Action required for AE: NO; Intervention required: none; Current status/outcome: Ongoing - stable. RESOLVED 07/14/2024 Decreased AST - Grade 1 - unlikely to Methimazole, Unlikely to study disease. Symptom is: Controlled; Start date: 06/16/2024; Action required for AE: NO; Intervention required: none; Current status/outcome: Ongoing - stable. RESOLVED 07/14/2024 Hyponatremia - Grade 1 - unlikely to Methimazole, Unlikely to study disease. Symptom is: Controlled; Start date: 06/16/2024; Action required for AE: NO; Intervention required: none; Current status/outcome: Ongoing - stable. RESOLVED 07/14/2024 Instructions to patient: Medication updates: NO Additional notes: Patient has the contact information for treating physician, research staff and the 24-hour [facility] number ([phone] or ) for the Heme/Onc Fellow. Nadeen Beckett RN 07/25/2024 12:53 PM Chart routed to Dr. Enriquez (Primary): YES Allergies As of Date: 07/25/2024 (No Known Allergies) Date Reviewed: 07/25/2024 Reviewed by: Cassandra Nieves PAGelyC - Fully Assessed Prescriptions as of 08/05/2024 - lomustine (GLEOSTINE) 100 mg capsule Take one 8mg Zofran on an empty stomach in the evening. Wait ONE hour. Take TWO 100mg capsule(s) Lomustine by mouth for a total dose of 200mg. Take one 8 mg Zofran twenty-four hours later. Take on Day 1 of each 42 day cycle. - predniSONE (DELTASONE) 10 mg tablet Day #1 - 6 tablets PO then Day #2 - 5 tablets PO then Day #3 - 4 tablets PO then Day #4 - 3 tablets PO then Day #5 - 2 tablets PO then Day #6 - 1 tablet PO - diazePAM (VALIUM) 10 mg tablet Take 1 tablet by mouth at bedtime as needed for sedation for up to 30 days. - methIMAzole (TAPAZOLE) 5 mg tablet Take TWO 10 mg tablets and ONE 5 mg tablet for a total dose of 25 mg, daily. - methIMAzole (TAPAZOLE) 10 mg tablet Take TWO 10 mg tablets and ONE 5 mg tablet for a total dose of 25 mg, daily. - ondansetron (ZOFRAN) 8 mg tablet Take one tablet by mouth on an empty stomach in the evening one hour prior to chemo. Then take one tablet 24 hours after chemo. May repeat dose every 8-12 hours if needed to prevent nausea - lacosamide (VIMPAT) 150 mg tab Take 1 tablet by mouth two times a day. - meclizine (ANTIVERT) 25 mg tab Take 1 tablet by mouth three times a day. - valACYclovir (VALTREX) 1 gram tablet Take 1,000 mg by mouth three times a day. - midazolam (NAYZILAM) 5 mg/spray (0.1 mL) nasal spray Use 1 [place] in the nose as needed for up to 10 days. May repeat dose in alternate nostril after 10 minutes based on response and tolerability. - sennosides (SENNA ORAL) Take by mouth. - DIETARY SUPPLEMENT,MISC COMB14 ORAL Take by mouth. Biomega 1000mg containing vitamin E and pure anchovy - medical supply, miscellaneous (MISCELLANEOUS MEDICAL SUPPLY MISC) Neurotrophin - acetaminophen (TYLENOL) 325 mg tablet 2 tablets by ORAL/FEEDING TUBE route every 4 hours as needed for pain. - pantoprazole DR (PROTONIX) 20 mg tablet Take 1 tablet by mouth DAILY (6 AM). Problem List As Of Date 07/25/2024 Noted Resolved Chest pain [R07.9] 04/25/2010 05/26/2024 Brain mass [G93.89] 03/17/2023 11/17/2023 Obesity, Class I, BMI 30-34.9 [E66.811] 03/17/2023 Brain compression (HCC) [G93.5] 03/20/2023 S/P brain surgery [Z98.890] 03/20/2023 11/17/2023 At risk for seizures [Z91.89] 03/20/2023 Cerebral edema (HCC) [G93.6] 03/20/2023 GBM (glioblastoma multiforme) (HCC) [C71.9] 04/07/2023 Syncope, unspecified syncope type [R55] 11/01/2023 11/03/2023 Examination of participant in clinical trial [Z*11/05/2023 11/17/2023 Forehead pain [R51.9] 11/05/2023 PONV (postoperative nausea and vomiting) [R11.2*05/26/2024 Acute post-operative pain [G89.18] 05/29/2024 Encounter Status:Closed by NADEEN BECKETT on 08/05/24 CNPN Observed: 07/20/2024 12:00 AM Status: COMPLETED Source: [facility] Telephone (PSYCA2) ANGEL KEATING ([id number]) 1970 M Date Time Provider Department 07/20/24 JACLYN CAAL PSYCA2 During your visit today, we recorded the following information about you: Jaclyn Caal LSW 07/20/2024 9:50 AM Signed SOCIAL WORK FOLLOW UP NOTE: [facility] Date of service: 07/20/2024 Angel Keating is being seen for a follow up social work visit. Today's visit includes: patient TOPICS ADDRESSED: coping/support and community resources MARVIN received phone call from pt requesting [employer] Transportation to the [facility] around 11:15 a.m. today. MARVIN completed a chart review and notes that pt does not have any in-person visits today at the [facility], but instead has a phone call appointment with Lester SHUKLA with the research team. SW shared this information with pt. Pt shares that he thought he had to get labs completed. MARVIN contacted Lester and Lester confirmed that pt does not need labs today and has no appointments in-person at the [facility]. Lester shares that he will reach back out to pt to discuss this. MARVIN also provided pt with the [facility] [employer] transportation number to schedule transportation to [facility] related appointments in the future so that pt does not have to rely on this SW if this SW is away from their desk. Pt asked for SW to MyChart message him in the contact number. SW will continue to provide ongoing assessment and support as needed. PLAN: Communicate pertinent medical/psychosocial information to Cancer Center team, Continue follow up as needed , Provide emotional support to patient/family, and Referral to community resource F/U APPOINTMENT: JULIO Aquino Allergies As of Date: 07/20/2024 (No Known Allergies) Date Reviewed: 07/14/2024 Reviewed by: Karla Pedroza MA - Fully Assessed Reason for Visit: Social Work Services [507] Prescriptions as of 07/20/2024 - iv contrast (will be provided with radiology test) MRI Brain Inject, intravenously, once for 1 dose.No IV access, insert saline lock prior to beginning of sedation, infusion, injection of imaging exam.Discontinue saline lock post exam. If Pt. has a central line or IVAD, may access for administration according to line specific nursing protocol.Once exam is complete flush line and de-access according to line specific nursing protocol in the MR contrast administration guidelines link - methIMAzole (TAPAZOLE) 5 mg tablet Take TWO 10 mg tablets and ONE 5 mg tablet for a total dose of 25 mg, daily. - methIMAzole (TAPAZOLE) 10 mg tablet Take TWO 10 mg tablets and ONE 5 mg tablet for a total dose of 25 mg, daily. - acetaZOLAMIDE (DIAMOX) 250 mg tablet Take 1 tablet by mouth two times a day for 14 days. - ondansetron (ZOFRAN) 8 mg tablet Take one tablet by mouth on an empty stomach in the evening one hour prior to chemo. Then take one tablet 24 hours after chemo. May repeat dose every 8-12 hours if needed to prevent nausea - lacosamide (VIMPAT) 150 mg tab Take 1 tablet by mouth two times a day. - lomustine (GLEOSTINE) 100 mg capsule Take one 8 mg Zofran on an empty stomach in the evening. Wait ONE hour. Take TWO 100 mg capsule(s) Lomustine by mouth for a total dose of 200 mg. Take one 8 mg Zofran twenty-four hours later. Take on Day 1 of each 42 day cycle. - iv contrast (will be provided with radiology test) MRI Brain Inject, intravenously, once for 1 dose.No IV access, insert saline lock prior to beginning of sedation, infusion, injection of imaging exam.Discontinue saline lock post exam. If Pt. has a central line or IVAD, may access for administration according to line specific nursing protocol.Once exam is complete flush line and de-access according to line specific nursing protocol in the MR contrast administration guidelines link - iv contrast (will be provided with radiology test) MRI Brain Inject, intravenously, once for 1 dose.No IV access, insert saline lock prior to beginning of sedation, infusion, injection of imaging exam.Discontinue saline lock post exam. If Pt. has a central line or IVAD, may access for administration according to line specific nursing protocol.Once exam is complete flush line and de-access according to line specific nursing protocol in the MR contrast administration guidelines link - meclizine (ANTIVERT) 25 mg tab Take 1 tablet by mouth three times a day. - valACYclovir (VALTREX) 1 gram tablet Take 1,000 mg by mouth three times a day. - midazolam (NAYZILAM) 5 mg/spray (0.1 mL) nasal spray Use 1 [place] in the nose as needed for up to 10 days. May repeat dose in alternate nostril after 10 minutes based on response and tolerability. - sennosides (SENNA ORAL) Take by mouth. - DIETARY SUPPLEMENT,MISC COMB14 ORAL Take by mouth. Biomega 1000mg containing vitamin E and pure anchovy - medical supply, miscellaneous (MISCELLANEOUS MEDICAL SUPPLY MISC) Neurotrophin - acetaminophen (TYLENOL) 325 mg tablet 2 tablets by ORAL/FEEDING TUBE route every 4 hours as needed for pain. - pantoprazole DR (PROTONIX) 20 mg tablet Take 1 tablet by mouth DAILY (6 AM). Problem List As Of Date 07/20/2024 Noted Resolved Chest pain [R07.9] 04/25/2010 05/26/2024 Brain mass [G93.89] 03/17/2023 11/17/2023 Obesity, Class I, BMI 30-34.9 [E66.811] 03/17/2023 Brain compression (HCC) [G93.5] 03/20/2023 S/P brain surgery [Z98.890] 03/20/2023 11/17/2023 At risk for seizures [Z91.89] 03/20/2023 Cerebral edema (HCC) [G93.6] 03/20/2023 GBM (glioblastoma multiforme) (HCC) [C71.9] 04/07/2023 Syncope, unspecified syncope type [R55] 11/01/2023 11/03/2023 Examination of participant in clinical trial [Z*11/05/2023 11/17/2023 Forehead pain [R51.9] 11/05/2023 PONV (postoperative nausea and vomiting) [R11.2*05/26/2024 Acute post-operative pain [G89.18] 05/29/2024 Encounter Status:Closed by JACLYN CAAL on 07/20/24 CNPN Observed: 07/19/2024 12:00 AM Status: COMPLETED Source: [facility] ANGEL KEATING ([id number]) 1970 M Date Time Provider Department 07/19/24 NADEEN BECKETT [facility] During your visit today, we recorded the following information about you: Nadeen Beckett RN 08/05/2024 4:05 PM Signed Telephone Follow up: IRB#: [id number] Case [id number] - Targeting Transsulfuration via Suppression of Thyroid Hormone Signaling in Progressive Glioblastoma; Modified Phase 1/2 and Pharmacodynamic Trial of Methimazole in Patients with Progressive WHO Grade 4 Glioblastoma PATIENT NAME: Angel Keating : 1970 Patient study ID: [id number] Primary MD: Dr. Enriquez Study start date: 05/24/2024 (start of Pre-Op Methimazole) Current cycle: C2D6 Patient: Angel Conchita Rishabh, 1970 Patient identified by name and date of : YES Spoke to: Patient Reason for call: To follow up on: Following up on steroid taper. Patient will be re-evaluated next Thursday for tolerance on STOPPING steroids. Steroids: Dexamethasone 1mgQD. Per Dr. Enriquez, the patient has been instructed to STOP taking steroid. Reevaluation for next Thursday. Ongoing AE Grade Scale Assessment - CTCAE v.5: Neuro, other (thought process changes) - Grade 1 - Baseline; Probable to study disease. Symptom is: Controlled with no intervention; Approximately started: 03/16/2023 to present; Baseline at screening 04/09/2023 Seizures (at risk for) - Grade 1 - Baseline; Unrelated to historical disorder/disease; Probable to study disease. 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 Symptom is: Controlled with lifestyle changes; Approximately started: 05/12/2024 to present; Baseline at screening 05/12/2024; upgraded to grade 2 on 05/26/2024; Current status: Ongoing - worsening. Stable. Elevated Alkaline Phosphatase - Grade 3 - Probable to Methimazole, unlikely to Lomustine, Unlikely to study disease. Symptom is: Controlled; Start date: 07/14/2024; Action required for AE: NO; Intervention required: none; Current status/outcome: Ongoing - stable Elevated AST - Grade 1 - Probable to Methimazole, unlikely to Lomustine, Unlikely to study disease. Symptom is: Controlled; Start date: 07/14/2024; Action required for AE: NO; Intervention required: none; Current status/outcome: Ongoing - stable Elevated ALT - Grade 2 - Probable to Methimazole, unlikely to Lomustine, Unlikely to study disease. Symptom is: Controlled; Start date: 07/14/2024; Action required for AE: NO; Intervention required: none; Current status/outcome: Ongoing - stable Decreased RBC - Grade 1 - Unlikely to Methimazole, possible to LomustineUnlikely to study disease. Symptom is: Controlled; Start date: 07/14/2024; Action required for AE: NO; Intervention required: none; Current status/outcome: Ongoing - stable NEW AEs: None RESOLVED AEs: Hypocalcemia - Grade 1 - Possible to Methimazole, Unlikely to study disease. Symptom is: Controlled; Start date: 06/16/2024; Action required for AE: NO; Intervention required: none; Current status/outcome: Ongoing - stable. RESOLVED 07/14/2024 Decreased AST - Grade 1 - unlikely to Methimazole, Unlikely to study disease. Symptom is: Controlled; Start date: 06/16/2024; Action required for AE: NO; Intervention required: none; Current status/outcome: Ongoing - stable. RESOLVED 07/14/2024 Hyponatremia - Grade 1 - unlikely to Methimazole, Unlikely to study disease. Symptom is: Controlled; Start date: 06/16/2024; Action required for AE: NO; Intervention required: none; Current status/outcome: Ongoing - stable. RESOLVED 07/14/2024 Instructions to patient: Medication updates: YES- please see above. Additional notes: Patient has the contact information for treating physician, research staff and the 24-hour [id number] number ([phone] or ) for the Heme/Onc Fellow. Nadeen Beckett RN 07/19/2024 3:32 PM Chart routed to Dr. Enriquez (Primary): YES Allergies As of Date: 07/19/2024 (No Known Allergies) Date Reviewed: 07/14/2024 Reviewed by: Karla Pedroza MA - Fully Assessed Prescriptions as of 08/05/2024 - lomustine (GLEOSTINE) 100 mg capsule Take one 8mg Zofran on an empty stomach in the evening. Wait ONE hour. Take TWO 100mg capsule(s) Lomustine by mouth for a total dose of 200mg. Take one 8 mg Zofran twenty-four hours later. Take on Day 1 of each 42 day cycle. - predniSONE (DELTASONE) 10 mg tablet Day #1 - 6 tablets PO then Day #2 - 5 tablets PO then Day #3 - 4 tablets PO then Day #4 - 3 tablets PO then Day #5 - 2 tablets PO then Day #6 - 1 tablet PO - diazePAM (VALIUM) 10 mg tablet Take 1 tablet by mouth at bedtime as needed for sedation for up to 30 days. - methIMAzole (TAPAZOLE) 5 mg tablet Take TWO 10 mg tablets and ONE 5 mg tablet for a total dose of 25 mg, daily. - methIMAzole (TAPAZOLE) 10 mg tablet Take TWO 10 mg tablets and ONE 5 mg tablet for a total dose of 25 mg, daily. - ondansetron (ZOFRAN) 8 mg tablet Take one tablet by mouth on an empty stomach in the evening one hour prior to chemo. Then take one tablet 24 hours after chemo. May repeat dose every 8-12 hours if needed to prevent nausea - lacosamide (VIMPAT) 150 mg tab Take 1 tablet by mouth two times a day. - meclizine (ANTIVERT) 25 mg tab Take 1 tablet by mouth three times a day. - valACYclovir (VALTREX) 1 gram tablet Take 1,000 mg by mouth three times a day. - midazolam (NAYZILAM) 5 mg/spray (0.1 mL) nasal spray Use 1 [place] in the nose as needed for up to 10 days. May repeat dose in alternate nostril after 10 minutes based on response and tolerability. - sennosides (SENNA ORAL) Take by mouth. - DIETARY SUPPLEMENT,MISC COMB14 ORAL Take by mouth. Biomega 1000mg containing vitamin E and pure anchovy - medical supply, miscellaneous (MISCELLANEOUS MEDICAL SUPPLY [facility] [place]) Neurotrophin - acetaminophen (TYLENOL) 325 mg tablet 2 tablets by ORAL/FEEDING TUBE route every 4 hours as needed for pain. - pantoprazole DR (PROTONIX) 20 mg tablet Take 1 tablet by mouth DAILY (6 AM). Problem List As Of Date 07/19/2024 Noted Resolved Chest pain [R07.9] 04/25/2010 05/26/2024 Brain mass [G93.89] 03/17/2023 11/17/2023 Obesity, Class I, BMI 30-34.9 [E66.811] 03/17/2023 Brain compression (HCC) [G93.5] 03/20/2023 S/P brain surgery [Z98.890] 03/20/2023 11/17/2023 At risk for seizures [Z91.89] 03/20/2023 Cerebral edema (HCC) [G93.6] 03/20/2023 GBM (glioblastoma multiforme) (HCC) [C71.9] 04/07/2023 Syncope, unspecified syncope type [R55] 11/01/2023 11/03/2023 Examination of participant in clinical trial [Z*11/05/2023 11/17/2023 Forehead pain [R51.9] 11/05/2023 PONV (postoperative nausea and vomiting) [R11.2*05/26/2024 Acute post-operative pain [G89.18] 05/29/2024 Encounter Status:Closed by NADEEN BECKETT on 08/05/24 PROGRESS Observed: 07/14/2024 11:05 AM Status: COMPLETED Source: [facility] HNO ID: [id number] Author: PATRICIA ENRIQUEZ MD Service: ? Author Type: Physician Type: Progress Notes Filed: 07/18/2024 13:14 Note Text: [facility] Follow up Clinic visit [facility] Team: -Jose Evans MD, Neurosurgery -SAV Rodriguez, Radiation Oncology -Patricia Enriquez MD, Neuro-Oncology DIAGNOSIS: MGMT unmethylated Glioblastoma. 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 He initially presented with anxiety-attack like episodes going back to January 2023 as well as a fall, without loss of consciousness but +trauma to head around 02/27/2023. On 03/16/2023, he presented to [facility] ED with word finding difficulty, report of one-time fever of 101 in February, anxiety, increased thirst and urination and was found to have a L temporal mass with midline subfalcine shift concerning for high grade glioma. He was afebrile with normal glucose level and electrolytes. He underwent gross total resection by Dr. Evans on 03/19/2023, revealing an MGMT unmethylated glioblastoma, WHO Grade 4. He was discharged on keppra 750mg BID and dexamethasone taper. He established care with Dr. Enriquez and given paroxysmal episodes of anxiety, he was concerned about temporal lobe epilepsy and advised lifelong AED to reduce seizure risk. The patient was exhibiting some fatigue and dullness, so a cross taper from keppra to vimpat, with goal of vimpat 150mg BID. The patient expressed interest in clinical trials and enrolled onto [facility]. He was randomized to the [id number] arm (cyclic peptide modulating tumor microenvironment). TREATMENT HISTORY Gross total resection [03/19/2023] [facility] Dr. Evans MGMT unmethylated Glioblastoma. L temporal [facility] AGILE, randomized to [id number] IV twice weekly arm + Standard concurrent chemotherapy and radiation (04/20- 05/29/2023) [facility] Dr. Joyce and Dr. Enriquez Adjuvant temozolomide PO D1-5 q 28 days C1 07/01/23, will start 07/03 150mg/m2 C2 07/27/23 C3 08/31/23 C4 09/21/23 C5 10/26/23 C6 11/23/23 C7 12/28/23 STOP ADJ TMZ as the clinical; trial calls for up to 6 cycles. For some reason the patient had an extra cycle of Adj TMZ. Adjuvant [id number] during Maintenance: Cycle 7 Week 1 - infusions on 12/14/2023 (D1) and 12/17/2023 (D4) Cycle 7 Week 2 - infusions on 12/21/2023 (D8) and 12/24/2023 (D11) Cycle 7 Week 3 - infusions on 12/28/2023 (D15) and 12/31/2023 (D18) Cycle 7 Week 4 - infusions on 01/05/2024 (D22) and 01/08/2024 (D25) Cycle 8 Week 5 - infusions on 01/11/2024 and 01/14/2024 02/08/2024: MRI shows progression 02/08/[address] [address] Evans for possible surgery. If surgery offered, he can be enrolled in CASE 3322 clinical trial with methimazole + chemo. 02/18/24: Dr Evans recommended NO surgery. 02/26/24 Lomustine 90mg/m2 C#1 02/25-04/08/24 04/12/24 Tumor progression, increased CBV 04/14/2024 BTB Referrals to se Dr. Evans for possible surgery. The patient is also eligible, for CASE 3322 clinical trial with methimazole + chemo. 04/28/2024 Jose Evans MD since the patient, and recommended surgery. 04/28/2024 clinical trials team, saw the patient, the patient is eligible, for for CASE 3322 clinical trial with methimazole + chemo. Patient signed consent. Treatment plan: Pre-operative treatment Phase -Methimazole - Pre-Op period: 05/24/2024 to 05/27/2024 (last dose is DAY of surgery) -Dose level 2 (25 mg daily) Surgical resection 05/27/[address] 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 C1D1 (10-28 days after surgery) -Scheduled for 06/16/2024 (20 days post op) -Methimazole - Post-Op period: 05/27/2024- TBD -Dose level 2 (25 mg daily 07/14/2024 In person visit The patient is unaccompanied He still with some language dysfunction but not worsening. Has no headaches or seizures. No other neurological issues. Her is here for post op evaluation, and define continuation on the clinical trial. Last Chemo: see above Current Steroids dose: N/A Current AED Dose: lacosamide (VIMPAT) 150 mg tab Take 1 tablet by mouth two times a day. 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 Evans; path = GBM ORTHOPEDICS SURGERY HX 1997 knee surgery SHX CRANIOTOMY Left 03/19/2023 Family History: FAMILY HISTORY Problem Relation Age of Onset Diabetes Father Coronary Artery Disease Father Stroke Father Breast Cancer Mother None Sister Anesthesia Problems No Family History Social History Tobacco Use Smoking status: Former Current packs/day: 1.00 Average packs/day: 1 pack/day for 4.0 years (4.0 ttl pk-yrs) Types: Cigarettes Smokeless tobacco: Never Vaping Use Vaping status: Never Used Substance Use Topics Alcohol use: Not Currently Comment: three beers a month - per pt [id number] Drug use: Never Allergies: Patient has no known allergies. Current Outpatient Medications Medication Sig lacosamide (VIMPAT) 150 mg tab Take 1 tablet by mouth two times a day. iv contrast (will be provided with radiology test) MRI Brain Inject, intravenously, once for 1 dose.No IV access, insert saline lock prior to beginning of sedation, infusion, injection of imaging exam.Discontinue saline lock post exam. If Pt. has a central line or IVAD, may access for administration according to line specific nursing protocol.Once exam is complete flush line and de-access according to line specific nursing protocol in the MR contrast administration guidelines link iv contrast (will be provided with radiology test) MRI Brain Inject, intravenously, once for 1 dose.No IV access, insert saline lock prior to beginning of sedation, infusion, injection of imaging exam.Discontinue saline lock post exam. If Pt. has a central line or IVAD, may access for administration according to line specific nursing protocol.Once exam is complete flush line and de-access according to line specific nursing protocol in the MR contrast administration guidelines link meclizine (ANTIVERT) 25 mg tab Take 1 tablet by mouth three times a day. valACYclovir (VALTREX) 1 gram tablet Take 1,000 mg by mouth three times a day. ondansetron (ZOFRAN) 8 mg tablet Take one hour prior to temozolomide prescription then every 8 hours as needed for nausea. temozolomide (TEMODAR) 180 mg capsule Fast for one hour after taking Zofran and then take ONE 180 mg capsule, plus ONE 140 mg and TWO 5 mg capsules to total 330 mg. Then, fast for one hour after taking. Take on days 1-5 of your 28 day cycle. Temozolomide 140 mg capsule Fast for one hour after taking Zofran and then take ONE 180 mg capsule, plus ONE 140 mg and TWO 5 mg capsules to total 330 mg. Then, fast for one hour after taking. Take on days 1-5 of your 28 day cycle. temozolomide (TEMODAR) 5 mg capsule Fast for one hour after taking Zofran and then take ONE 180 mg capsule, plus ONE 140 mg and TWO 5 mg capsules to total 330 mg. Then, fast for one hour after taking. Take on days 1-5 of your 28 day cycle. ondansetron (ZOFRAN) 8 mg tablet Take 1 tablet (8 mg) by mouth one hour before taking temozolomide dosing. Take on an empty stomach (Patient taking differently: Take 1 tablet (8 mg) by mouth one hour before taking temozolomide dosing. Take on an empty stomach) sennosides (SENNA ORAL) Take by mouth. DIETARY SUPPLEMENT,MISC COMB14 ORAL Take by mouth. Biomega 1000mg containing vitamin E and pure anchovy medical supply, miscellaneous (MISCELLANEOUS MEDICAL SUPPLY [facility] [place]) Neurotrophin acetaminophen (TYLENOL) 325 mg tablet 2 tablets by ORAL/FEEDING TUBE route every 4 hours as needed for pain. pantoprazole DR (PROTONIX) 20 mg tablet Take 1 tablet by mouth DAILY (6 AM). midazolam (NAYZILAM) 5 mg/spray (0.1 mL) nasal spray Use 1 [place] in the nose as needed for up to 10 days. May repeat dose in alternate nostril after 10 minutes based on response and tolerability. No current facility-administered medications for this visit. Review of systems: Constitutional: No recent fever or weight loss. Eyes: No history of glaucoma or cataracts. ENMT: No recent ear infection, nasal congestion, mouth sores or sore throat. CV: No history of chest pain, palpitations or leg swelling. Respiratory: No history of SOB, asthma or recent cough. Gastrointestinal: No history of nausea, vomiting, dysphagia or abdominal pain. Genitourinary: No history of hematuria or dysuria. Musculoskeletal: No complaint of arthritis, unstable gait or arm/leg weakness. Psychiatric: No history of hallucinations or depression or anxiety. ROS Neurological: No complaint of headache. No complaint of tinnitus. No complaint of decreased hearing. No complaint of diplopia. No complaints of decreased visual acuity. No complaint of arm/leg numbness. No problem with limb coordination. No complaint of syncope, seizures or disorientation. Objective Physical Exam: BP 147/88 Pulse 87 Temp 36.6 ?C (97.9 ?F) (Oral) Resp 18 Wt 97.3 kg (214 lb 8.1 oz) SpO2 97% BMI 30.92 kg/m? GENERAL EXAM: General appearance: Well appearing, alert, in no acute distress Skin: Skin color, texture, turgor normal Oropharynx: No thrush noted. Lungs: Lungs clear to auscultation. No wheezing, rhonchi, rales Heart: RRR without murmur, gallop, or rubs. No ectopy Abdomen: Normal abdominal exam, Abdomen soft, non-tender. Bowel sounds normal. Extremities: No deformities, skin discoloration, clubbing or cyanosis. Good capillary refill, no edema to BLE. Harmony's sign negative. No pain to palpation. NEUROLOGICAL EXAM: Higher integrative functions: Oriented to person, place AND time. Attention Span and Concentration: Good. Language: Accurate naming of objects. Good comprehension. Fund of Knowledge: Good. 2nd CN: Full visual land. 3rd,4th,6th CN: Pupils equal, round, react to light, full extraocular movements. 5th CN: No decrease in facial sensation 7th CN: Facial muscles symmetric and strong. 8th CN: Hears finger rub well bilaterally. 9th CN: Gag reflex not tested 10th CN: Spontaneous palate movement, full and symmetric. 11th CN: Full strength in shoulder shrug. 12th CN: Tongue protrusion full and midline. Sensation: No decrease in sensation in upper or lower limbs to touch. Musculoskeletal: Gait steady. Tandem walk normal. Romberg negative. Motor: 5/5 RUE/RLE; 5/5 LUE/LLENormal muscle tone without atrophy in all limbs. Coordination: Rapid alternating movements LUE intact; RUE intact Reflexes: 1-2+ ALL limbs. Plantar response down going. Karnofsky performance status: 80 - Normal activity with effort, some signs or symptoms of disease. ECOG performance status: 1 - Restricted in physically strenuous activity but ambulatory and able to carry out work of a light or sedentary nature, e.g., light house work or office work. 05/18/2023 PHQ 2 and 9 Total Scores PHQ-2 Score 1 PHQ-9 Score 8 Labs: Latest Ref Rng AND Units 05/29/2024 06/16/2024 07/14/2024 CBC WBC 3.70 - 11.00 k/uL 13.95 9.46 4.83 RBC 4.20 - 6.00 m/uL 3.79 4.25 4.17 Hemoglobin 13.0 - 17.0 g/dL 12.2 13.9 13.6 Hematocrit 39.0 - 51.0 % 35.3 39.8 38.6 MCV 80.0 - 100.0 fL 93.1 93.6 92.6 MCH 26.0 - 34.0 pg 32.2 32.7 32.6 MCHC 30.5 - 36.0 g/dL 34.6 34.9 35.2 RDW-CV 11.5 - 15.0 % 13.5 14.5 14.7 Platelet Count 150 - 400 k/uL 206 171 220 MPV 9.0 - 12.7 fL 9.1 8.9 8.4 Baso% % 0.1 0.1 1.4 Abs Neut (ANC) 1.45 - 7.50 k/uL 12.88 7.97 3.01 Abs Lymph 1.00 - 4.00 k/uL 0.55 0.68 0.55 Abs Branch <0.87 k/uL 0.47 0.62 0.77 Abs Eosin <0.46 k/uL <0.03 0.10 0.40 Abs Baso <0.11 k/uL <0.03 <0.03 0.07 NRBC /100 WBC 0.0 0.0 0.0 Latest Ref Rng AND Units 05/29/2024 06/16/2024 07/14/2024 CMP Sodium 136 - 144 mmol/L 139 135 141 Potassium 3.7 - 5.1 mmol/L 4.4 4.0 4.0 Chloride 98 - 107 mmol/L 108 104 105 CO2 22 - 30 mmol/L 23 21 27 Glucose 74 - 99 mg/dL 147 97 105 BUN 9 - 24 mg/dL 18 23 7 Creatinine 0.73 - 1.22 mg/dL 1.07 1.05 0.88 EGFR >=60 mL/min/1.73m? 82 84 102 Protein, Total 6.3 - 8.0 g/dL 5.9 6.5 Albumin 3.9 - 4.9 g/dL 3.4 3.9 Calcium 8.5 - 10.2 mg/dL 8.5 8.2 9.1 Bilirubin, Total 0.2 - 1.3 mg/dL 0.6 0.5 AST 14 - 40 U/L 11 80 ALT 10 - 54 U/L 21 218 Alkaline Phosphatase 38 - 113 U/L 64 613 Final Pathology: SURGICAL PATHOLOGY: [id number] Order: [id number] Collected 03/19/2023 10:24 AM Status: Edited Result - FINAL Visible to patient: Yes (not seen) Dx: Brain tumor (HCC) 0 Result Notes Component FINAL DIAGNOSIS A, B. Brain, left temporal mass, biopsy and resection: - Morphologically consistent with high grade glioma. See comment. Diagnosis Comment CARLOS stained sections reveal a hypercellular infiltrating glioma with moderate to marked nuclear pleomorphism and increased mitoses (upto 4 per 10 high per field). Pseudopalisading necrosis and microvascular proliferation are identified. Immunohistochemical stains are performed at [facility] to better classify this lesion (block B1) and show the following in neoplastic cells: IDH1 R132H: neagtive (wildtype); ATRX: retained (wildtype); BRAF V600E: negative (wildtype); p53 strong nuclear positivity in up to 40%; Ki67 proliferative index up to 25%. Addendum This addendum is rendered to report the results of the following molecular studies: Targeted Oncology Panel: The oncogenic TERT promoter alteration, c.-124C>T (also known as C228T) was detected in this specimen; MGMT promoter methylation: not hypermethylated. 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 Addendum electronically signed by Krista Snow MD on 04/03/2023 at 9:13 AM Imaging: MRI Report MRI BRAIN WO/W IVCON Exam End: 07/13/2024 9:47 AM (Final result) Narrative: * * *Final Report* * * DATE OF EXAM: Jul 13 2024 9:47AM [facility] [id number] - MRI BRAIN WO/W IVCON / PROCEDURE REASON: GBM (glioblastoma multiforme) (HCC) * * * * Physician Interpretation * * * * EXAMINATION: MRI BRAIN WO/W IVCON HISTORY: GBM (glioblastoma multiforme) (HCC) - - - Primary neoplasm/metastasis/postop F/U - Brain/PATENT PARALEGAL neoplasm, assess treatment response - [id number] - - GBM (glioblastoma multiforme), WITH PERFUSION CASE 3322; [id number] - - TECHNIQUE: MRI brain intracranial mass protocol without and with contrast. Perfusion imaging was performed. M: [id number] MR Contrast: Dotarem Contrast Dose: 20 cc Route of Administration: Central IV COMPARISON: MRI brain 05/28/2024. 05/26/2024. 04/12/2024. RESULT: Acute Change: No evidence of an acute intracranial process. Hemorrhage: No evidence of prior parenchymal hemorrhage on the susceptibility weighted sequences. Mass Lesion/ Mass Effect: Again demonstrated prior operative changes related to left craniotomy for left temporal lobe mass resection with interval development of a prominent left convexity extra-axial collection which appears contiguous with fluid collection surrounding the left temporal craniotomy flap which extends to the extra calvarial soft tissues of the inferotemporal fossa. This measures up to 1.2 cm in greatest thickness (series 13, image 14) with extra calvarial component measuring up to 1.0 cm in thickness (series 13, image 20) without areas of abnormal enhancement. Few scattered areas of susceptibility artifact are present underneath the craniotomy defect and within this postoperative T2 hyperintense collection which may reflect prior postoperative changes although there collection is mostly composed of CSF attenuating fluid. Ill-defined areas of mildly nodular enhancement along the mesial left temporal lobe anteriorly (series 14, image 99) questionably measuring up to 0.4 x 1.1 cm in greatest transaxial dimension not well appreciated on coronal imaging may represent residual areas of enhancement from previously resected mass with small amount of minimally nodular enhancement along the temporal resection cavity (series 14, image 7). Overall, areas of enhancement appears slightly increased in the interim. Perfusion imaging demonstrates no definite perfusion abnormality or elevated CBV within the constraints of susceptibility and small area of enhancement which may be beyond the resolution of perfusion. T2/FLAIR hyperintensity surrounding the resection cavity margins likely reflects a component of gliosis. Small focus of enhancement is seen within the left dorsal basal ganglia and internal capsule (series 14, image 87 measuring up to 0.5 x 0.3 x 0.2 cm (series 14, image 90 and series 13, image 18) with a lentiform appearance, could represent a small vascular structure although no significant susceptibility is demonstrated. Mild localized mass effect secondary to left greater than right T2 hyperintense hygromatous collection with approximately 4 mm of midline shift to the right. Mild sulcal effacement along the left cerebral sulci. Perfusion: MR perfusion study was performed of the entire brain following bolus intravenous administration of gadolinium utilizing dynamic susceptibility-weighted contrast-enhanced acquisition. Noncontributory Chronic Change: Scattered punctate foci of increased T2 and FLAIR signal are noted in the supratentorial white matter which is a nonspecific finding, but likely represents minimal chronic microvascular ischemia. Parenchyma: No significant parenchymal volume loss for age. Ventricles: Normal caliber and morphology. Skull Base: Hypothalamic and pituitary region are grossly normal. Craniocervical junction is normal. No significant marrow replacement process. Vasculature: Major intracranial arteries and dural venous sinuses demonstrate typical flow voids, suggesting patency by spin echo criteria. Other: The paranasal sinuses and mastoid air cells are clear. The orbits and extracranial soft tissues are unremarkable. Impression: IMPRESSION: Similar to very slightly increased enhancement marginating the anterior mesial left temporal lobe as described, possibly postoperative or residual enhancing mass. No definite perfusion abnormality. Small focus of enhancement within the dorsal left basal ganglia, questionable for residual/recurrent process. Continued follow-up is recommended. Stable postoperative changes with enlarging left convexity CSF intensity collection measuring up to 1.2 cm causing mass effect and approximately 4 mm of midline shift to the right. Additional CSF intensity fluid surrounding the craniotomy flap involving the extra calvarial soft tissues as detailed. Call Worker Person: PSCB Transcribe Date/Time: Jul 13 2024 11:49A Dictated by : ADAM THORNTON MD This examination was interpreted and the report reviewed and electronically signed by: ADAM THORNTON MD on Jul 13 2024 12:05PM EST I reviewed the images with the patient. 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 Now with progressive disease per MRI from February 2024 --The patient is eligible for CASE 3322 clinical trial with methimazole + chemo. Patient signed consent. Had methimazole prior to surgery. He had second surgery the path is GBM He will start lomustine, I capped the dose up to 200 mg (standard), as single agent. Reference from UpToDate 1- Glioblastoma: Single-agent therapy, recurrent glioblastoma: Oral: 100 to 130 mg/m2 once every 6 weeks until disease progression or unacceptable toxicity (Ref) or 110 mg/m2 on day 1 every 6 weeks (maximum dose: 200 mg) for a maximum of 6 cycles (Ref). Reference: Concepcion W, Jasiel HM, Katelyn AM, et al. Single-agent bevacizumab or lomustine versus a combination of bevacizumab plus lomustine in patients with recurrent glioblastoma (BELOB trial): a randomised controlled phase 2 trial. Lancet Oncol. 2014;15(9):943-953. doi:10.1016/E[address]01-5954(70)19553-1 [PubMed [id number]] 3-Ugcow-Ufadjtzc 25(7), 6083-8914, 2022 Excerpt/verbatim When given as a single agent the dose is usually 110 or 130 mg/m2 in cycles of 6 weeks because of the delayed myelosuppression (Supplementary Table S5). Most centers cap the dose at 200 mg. In case of significant hematological toxicity experienced during temozolomide treatment in the first-line setting, a first lomustine cycle with a reduced dose reduction can be considered and escalation at cycle 2 if the first cycle was well tolerated. PLAN: 1- GBM-MGMT promoter not hyper methylated. MRI of the brain from Jul 13, 2024 overall stable. -Continue CASE 3322 clinical trial with methimazole + chemo. -Continue methimazole per trial. -Lomustine 110 mg/M2 , dose capped 200 mg day cycle -Not to initiate bevacizumab (edwin) at this time. 7-zsqgdkmkdybf-rkalwrk nausea: -Use Zofran, prior/after chemo and as needed 3-Imaging surveillance: -Brain w and w/o contrast and perfusion - 4 weeks from last MRI 2A-Clinic visits: -per clinical trial -1-2 days after the MRI in 4 weeks, or the same day if MR is done at . 3-Bone marrow suppression from chemotherapy: periodic CBC, every 4 weeks Also, CMP every 4 weeks. Other blood test, per clinical trial 4- Seizures: Since I saw him last, he has not had any events to suggest seizures (02/19/2024). -On lacosamide (Vimpat): Started on 04/05/23. Dose is 150 mg twice a day. -Lacosamide blood levels, Latest Reference Range AND Units 07/14/24 09:38 Lacosamide 2.2 - 19.8 ug/mL 10.6 Based on the above levels to continue on the same dose. 5-Seizure precautions: The patient is not to drive any motorized vehicle, and not to engage in activities that could place her or others in danger if she were to have a seizure. I also discussed the use of rescue medication for breakthrough seizures, using midazolam nasal spray (NS) to use it as needed (PRN) and discussed when to use it. I discussed the potential benefits and side effects, including tiredness, fatigue, and or sleepiness and if so, the patient is not to engage in activities that require to be fully alert. I have also provided written information for the patient's review. 6-He is to follow by her PCP for general medical care/coordination of care. 7-NOT ON STEROIDS 8-To see PCP for to define appropriate vaccinations above. 9-Potential for thromboembolism: to watch for potential DVT/Pulmonary Embolism, and if so to go to the ED/call 911. 10-End of life issues: Adv Dir in chart. -Patient discussed, this important aspect, of his diagnosis, that is, that he acknowledges, that this condition will end his life, at young age, and relatively soon and that he has goals, for the next year or so, that is, to attend, important milestones events of his children's, which will take place, in the next year or so. Currently,02/19/24 his children's are 20 and 21 years old. He has seen Dr. Lion, from palliative medicine will also give advice regarding his. 11-psychosocial issues: Patient asked, advised on how to approach, his current diagnosis and progressive disease, with his children who are 2020. We given some advice, how it could be helpful for his children to cope with his unfortunate condition. However, we recommended for him to seek attention from psychosocial oncology, and this Could be expanded to the family. He has seen Dr. Daniel Juárez from psychology and psychiatry, as well FAMILY SERVICES SPECIALIST Jaclyn Guillory. 12-Hygroma on surgical site: MRI 07/13/24 reported as (excerpt/verbatim): enlarging left convexity CSF intensity collection measuring up to 1.2 cm causing mass effect and approximately 4 mm of midline shift to the right. I reviewed this with Dr. Evans. Not symptomatic, continue watching. No need for intervention form NSGY perspective. I saw the patient in collaboration with Lester Beckett RN [facility] clinical trials nurse. In the end the patient and family verbalized understanding of the above, they had questions which I believe I answered to their satisfaction and agreed with these recommendations and had no further questions or concerns for the moment, but I encourage them to call the [facility] with any questions or concerns. I spent a total of 40 minutes on the date of the service which included preparing to see the patient, at least 50% of lqta-le-dium patient care, completing clinical documentation, obtaining and/or reviewing separately obtained history, performing a medically appropriate examination, counseling and educating the patient/family/caregiver, ordering medications, tests, or procedures, communicating with other HCPs (not separately reported), independently interpreting results (not separately reported), communicating results to the patient/family/caregiver and care coordination (not separately reported). Patricia Enriquez MD [facility] Patient Care Team: -Jose Evans MD, Neurosurgery, [facility], [facility], [facility] Cyndee Joyce MD, PhD, Radiation Oncology, [facility], [facility]. Jaclyn Guillory LSW as Pull Worker (Hematology/Oncology) Soraida Simmons, VAZQUEZ (Hospice AND Palliative Medicine) Willy Lion MD (Hospice AND Palliative Medicine) Rupa Khoury APRN.EDSON (Hospice AND Palliative Medicine) Daniel Juárez PSYD, Psychology, [facility] PROGRESS Observed: 07/14/2024 10:31 AM Status: COMPLETED Source: [facility] HNO ID: [id number] Author: JACLYN CAAL LSW Service: ? Author Type: Pull Worker Type: Progress Notes Filed: 07/14/2024 10:34 Note Text: SOCIAL WORK FOLLOW UP NOTE: [facility] Date of service: 07/14/2024 Angel Keating is being seen for a follow up social work visit. Today's visit includes: patient TOPICS ADDRESSED: coping/support SW met with pt in-person before his appointments with Dr. Fraire and Lester SHUKLA. SW provided pt with contact card and contact information for the [facility]. Pt expressed appreciation and has no additional questions or concerns at this time for this SW. SW will continue to provide ongoing assessment and support as needed. PLAN: Continue follow up as needed and Provide emotional support to patient/family F/U APPOINTMENT: JULIO Aquino CNOV Observed: 07/14/2024 10:30 AM Status: COMPLETED Source: [facility] Office Visit (NSCAMN) ANGEL KEATING ([id number]) 1970 M Date Time Provider Department 07/14/24 10:30 AM PATRICIA ENRIQUEZ [facility] During your visit today, we recorded the following information about you: Temperature Pulse Respiration Blood pressure 97.9 degrees 87/minute 18/minute 147/88 Weight 97.3 kg Tanvi Stewart MA 07/14/2024 10:34 AM Signed Additional intake questions: Has the patient had fever, nausea, vomiting, diarrhea, constipation, fatigue for > 1 week? Yes, constipation (8 day of last BM ) Does the patient have a decreased appetite? No Does patient want to see a Outside Solar Sales Consultant? No (yes to any of above refer patient to schedulers for dietitian appointment) ) Does patient have any new or increased numbness or tingling of extremities? No Is patient interested in fertility information? No Does patient need any prescription refills? No Does patient have an advanced directive in place? Yes, copies are in Epic Electronically Signed By: SALEEM Ohara Alejandro, MD 07/18/2024 1:14 PM Signed [facility] Follow up Clinic visit B [facility] Team: -Jose Evans MD, Neurosurgery -SAV Rodriguez, Radiation Oncology -Patricia Enriquez MD, Neuro-Oncology DIAGNOSIS: MGMT unmethylated Glioblastoma. 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 He initially presented with anxiety-attack like episodes going back to January 2023 as well as a fall, without loss of consciousness but +trauma to head around 02/27/2023. On 03/16/2023, he presented to [facility] ED with word finding difficulty, report of one-time fever of 101 in February, anxiety, increased thirst and urination and was found to have a L temporal mass with midline subfalcine shift concerning for high grade glioma. He was afebrile with normal glucose level and electrolytes. He underwent gross total resection by Dr. Evans on 03/19/2023, revealing an MGMT unmethylated glioblastoma, WHO Grade 4. He was discharged on keppra 750mg BID and dexamethasone taper. He established care with Dr. Enriquez and given paroxysmal episodes of anxiety, he was concerned about temporal lobe epilepsy and advised lifelong AED to reduce seizure risk. The patient was exhibiting some fatigue and dullness, so a cross taper from keppra to vimpat, with goal of vimpat 150mg BID. The patient expressed interest in clinical trials and enrolled onto [facility] AGILE. He was randomized to the [id number] arm (cyclic peptide modulating tumor microenvironment). TREATMENT HISTORY Gross total resection [03/19/2023] [facility] Dr. Evans MGMT unmethylated Glioblastoma. L temporal GCAR AGILE, randomized to [id number] IV twice weekly arm + Standard concurrent chemotherapy and radiation (04/20- 05/29/2023) [facility] Dr. Joyce and Dr. Enriquez Adjuvant temozolomide PO D1-5 q 28 days C1 07/01/23, will start 07/03 150mg/m2 C2 07/27/23 C3 08/31/23 C4 09/21/23 C5 10/26/23 C6 11/23/23 C7 12/28/23 STOP ADJ TMZ as the clinical; trial calls for up to 6 cycles. For some reason the patient had an extra cycle of Adj TMZ. Adjuvant [id number] during Maintenance: Cycle 7 Week 1 - infusions on 12/14/2023 (D1) and 12/17/2023 (D4) Cycle 7 Week 2 - infusions on 12/21/2023 (D8) and 12/24/2023 (D11) Cycle 7 Week 3 - infusions on 12/28/2023 (D15) and 12/31/2023 (D18) Cycle 7 Week 4 - infusions on 01/05/2024 (D22) and 01/08/2024 (D25) Cycle 8 Week 5 - infusions on 01/11/2024 and 01/14/2024 02/08/2024: MRI shows progression 02/08/24 BTB Referrals to se Dr. Evans for possible surgery. If surgery offered, he can be enrolled in CASE 3322 clinical trial with methimazole + chemo. 02/18/24: Dr Evans recommended NO surgery. 02/26/24 Lomustine 90mg/m2 C#1 02/25-04/08/24 04/12/24 Tumor progression, increased CBV 04/14/2024 BTB Referrals to se Dr. Evans for possible surgery. The patient is also eligible, for CASE 3322 clinical trial with methimazole + chemo. 04/28/2024 Jose Evans MD since the patient, and recommended surgery. 04/28/2024 clinical trials team, saw the patient, the patient is eligible, for for CASE 3322 clinical trial with methimazole + chemo. Patient signed consent. Treatment plan: Pre-operative treatment Phase -Methimazole - Pre-Op period: 05/24/2024 to 05/27/2024 (last dose is DAY of surgery) -Dose level 2 (25 mg daily) Surgical resection 05/27/[address] 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 C1D1 (10-28 days after surgery) -Scheduled for 06/16/2024 (20 days post op) -Methimazole - Post-Op period: 05/27/2024- TBD -Dose level 2 (25 mg daily 07/14/2024 In person visit The patient is unaccompanied He still with some language dysfunction but not worsening. Has no headaches or seizures. No other neurological issues. Her is here for post op evaluation, and define continuation on the clinical trial. Last Chemo: see above Current Steroids dose: N/A Current AED Dose: lacosamide (VIMPAT) 150 mg tab Take 1 tablet by mouth two times a day. 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 Evans; path = GBM ORTHOPEDICS SURGERY HX 1996 knee surgery SHX CRANIOTOMY Left 03/19/2023 Family History: FAMILY HISTORY Problem Relation Age of Onset Diabetes Father Coronary Artery Disease Father Stroke Father Breast Cancer Mother None Sister Anesthesia Problems No Family History Social History Tobacco Use Smoking status: Former Current packs/day: 1.00 Average packs/day: 1 pack/day for 4.0 years (4.0 ttl pk-yrs) Types: Cigarettes Smokeless tobacco: Never Vaping Use Vaping status: Never Used Substance Use Topics Alcohol use: Not Currently Comment: three beers a month - per pt [id number] Drug use: Never Allergies: Patient has no known allergies. Current Outpatient Medications Medication Sig lacosamide (VIMPAT) 150 mg tab Take 1 tablet by mouth two times a day. iv contrast (will be provided with radiology test) MRI Brain Inject, intravenously, once for 1 dose.No IV access, insert saline lock prior to beginning of sedation, infusion, injection of imaging exam.Discontinue saline lock post exam. If Pt. has a central line or IVAD, may access for administration according to line specific nursing protocol.Once exam is complete flush line and de-access according to line specific nursing protocol in the MR contrast administration guidelines link iv contrast (will be provided with radiology test) MRI Brain Inject, intravenously, once for 1 dose.No IV access, insert saline lock prior to beginning of sedation, infusion, injection of imaging exam.Discontinue saline lock post exam. If Pt. has a central line or IVAD, may access for administration according to line specific nursing protocol.Once exam is complete flush line and de-access according to line specific nursing protocol in the MR contrast administration guidelines link meclizine (ANTIVERT) 25 mg tab Take 1 tablet by mouth three times a day. valACYclovir (VALTREX) 1 gram tablet Take 1,000 mg by mouth three times a day. ondansetron (ZOFRAN) 8 mg tablet Take one hour prior to temozolomide prescription then every 8 hours as needed for nausea. temozolomide (TEMODAR) 180 mg capsule Fast for one hour after taking Zofran and then take ONE 180 mg capsule, plus ONE 140 mg and TWO 5 mg capsules to total 330 mg. Then, fast for one hour after taking. Take on days 1-5 of your 28 day cycle. Temozolomide 140 mg capsule Fast for one hour after taking Zofran and then take ONE 180 mg capsule, plus ONE 140 mg and TWO 5 mg capsules to total 330 mg. Then, fast for one hour after taking. Take on days 1-5 of your 28 day cycle. temozolomide (TEMODAR) 5 mg capsule Fast for one hour after taking Zofran and then take ONE 180 mg capsule, plus ONE 140 mg and TWO 5 mg capsules to total 330 mg. Then, fast for one hour after taking. Take on days 1-5 of your 28 day cycle. ondansetron (ZOFRAN) 8 mg tablet Take 1 tablet (8 mg) by mouth one hour before taking temozolomide dosing. Take on an empty stomach (Patient taking differently: Take 1 tablet (8 mg) by mouth one hour before taking temozolomide dosing. Take on an empty stomach) sennosides (SENNA ORAL) Take by mouth. DIETARY SUPPLEMENT,[facility] COMB14 ORAL Take by mouth. Biomega 1000mg containing vitamin E and pure anchovy medical supply, [facility] ([employer]LLANEOUS MEDICAL SUPPLY [facility]) Neurotrophin acetaminophen (TYLENOL) 325 mg tablet 2 tablets by ORAL/FEEDING TUBE route every 4 hours as needed for pain. pantoprazole DR (PROTONIX) 20 mg tablet Take 1 tablet by mouth DAILY (6 AM). midazolam (NAYZILAM) 5 mg/spray (0.1 mL) nasal spray Use 1 [place] in the nose as needed for up to 10 days. May repeat dose in alternate nostril after 10 minutes based on response and tolerability. No current facility-administered medications for this visit. Review of systems: Constitutional: No recent fever or weight loss. Eyes: No history of glaucoma or cataracts. ENMT: No recent ear infection, nasal congestion, mouth sores or sore throat. CV: No history of chest pain, palpitations or leg swelling. Respiratory: No history of SOB, asthma or recent cough. Gastrointestinal: No history of nausea, vomiting, dysphagia or abdominal pain. Genitourinary: No history of hematuria or dysuria. Musculoskeletal: No complaint of arthritis, unstable gait or arm/leg weakness. Psychiatric: No history of hallucinations or depression or anxiety. ROS Neurological: No complaint of headache. No complaint of tinnitus. No complaint of decreased hearing. No complaint of diplopia. No complaints of decreased visual acuity. No complaint of arm/leg numbness. No problem with limb coordination. No complaint of syncope, seizures or disorientation. Objective Physical Exam: BP 147/88 Pulse 87 Temp 36.6 ?C (97.9 ?F) (Oral) Resp 18 Wt 97.3 kg (214 lb 8.1 oz) SpO2 97% BMI 30.92 kg/m? GENERAL EXAM: General appearance: Well appearing, alert, in no acute distress Skin: Skin color, texture, turgor normal Oropharynx: No thrush noted. Lungs: Lungs clear to auscultation. No wheezing, rhonchi, rales Heart: RRR without murmur, gallop, or rubs. No ectopy Abdomen: Normal abdominal exam, Abdomen soft, non-tender. Bowel sounds normal. Extremities: No deformities, skin discoloration, clubbing or cyanosis. Good capillary refill, no edema to BLE. Harmony's sign negative. No pain to palpation. NEUROLOGICAL EXAM: Higher integrative functions: Oriented to person, place AND time. Attention Span and Concentration: Good. Language: Accurate naming of objects. Good comprehension. Fund of Knowledge: Good. 2nd CN: Full visual land. 3rd,4th,6th CN: Pupils equal, round, react to light, full extraocular movements. 5th CN: No decrease in facial sensation 7th CN: Facial muscles symmetric and strong. 8th CN: Hears finger rub well bilaterally. 9th CN: Gag reflex not tested 10th CN: Spontaneous palate movement, full and symmetric. 11th CN: Full strength in shoulder shrug. 12th CN: Tongue protrusion full and midline. Sensation: No decrease in sensation in upper or lower limbs to touch. Musculoskeletal: Gait steady. Tandem walk normal. Romberg negative. Motor: 5/5 RUE/RLE; 5/5 LUE/LLENormal muscle tone without atrophy in all limbs. Coordination: Rapid alternating movements LUE intact; RUE intact Reflexes: 1-2+ ALL limbs. Plantar response down going. Karnofsky performance status: 80 - Normal activity with effort, some signs or symptoms of disease. ECOG performance status: 1 - Restricted in physically strenuous activity but ambulatory and able to carry out work of a light or sedentary nature, e.g., light house work or office work. 05/18/2023 PHQ 2 and 9 Total Scores PHQ-2 Score 1 PHQ-9 Score 8 Labs: Latest Ref Rng AND Units 05/29/2024 06/16/2024 07/14/2024 CBC WBC 3.70 - 11.00 k/uL 13.95 9.46 4.83 RBC 4.20 - 6.00 m/uL 3.79 4.25 4.17 Hemoglobin 13.0 - 17.0 g/dL 12.2 13.9 13.6 Hematocrit 39.0 - 51.0 % 35.3 39.8 38.6 MCV 80.0 - 100.0 fL 93.1 93.6 92.6 MCH 26.0 - 34.0 pg 32.2 32.7 32.6 MCHC 30.5 - 36.0 g/dL 34.6 34.9 35.2 RDW-CV 11.5 - 15.0 % 13.5 14.5 14.7 Platelet Count 150 - 400 k/uL 206 171 220 MPV 9.0 - 12.7 fL 9.1 8.9 8.4 Baso% % 0.1 0.1 1.4 Abs Neut (ANC) 1.45 - 7.50 k/uL 12.88 7.97 3.01 Abs Lymph 1.00 - 4.00 k/uL 0.55 0.68 0.55 Abs Branch <0.87 k/uL 0.47 0.62 0.77 Abs Eosin <0.46 k/uL <0.03 0.10 0.40 Abs Baso <0.11 k/uL <0.03 <0.03 0.07 NRBC /100 WBC 0.0 0.0 0.0 Latest Ref Rng AND Units 05/29/2024 06/16/2024 07/14/2024 CMP Sodium 136 - 144 mmol/L 139 135 141 Potassium 3.7 - 5.1 mmol/L 4.4 4.0 4.0 Chloride 98 - 107 mmol/L 108 104 105 CO2 22 - 30 mmol/L 23 21 27 Glucose 74 - 99 mg/dL 147 97 105 BUN 9 - 24 mg/dL 18 23 7 Creatinine 0.73 - 1.22 mg/dL 1.07 1.05 0.88 EGFR >=60 mL/min/1.73m? 82 84 102 Protein, Total 6.3 - 8.0 g/dL 5.9 6.5 Albumin 3.9 - 4.9 g/dL 3.4 3.9 Calcium 8.5 - 10.2 mg/dL 8.5 8.2 9.1 Bilirubin, Total 0.2 - 1.3 mg/dL 0.6 0.5 AST 14 - 40 U/L 11 80 ALT 10 - 54 U/L 21 218 Alkaline Phosphatase 38 - 113 U/L 64 613 Final Pathology: SURGICAL PATHOLOGY: [id number] Order: [id number] Collected 03/19/2023 10:24 AM Status: Edited Result - FINAL Visible to patient: Yes (not seen) Dx: Brain tumor (HCC) 0 Result Notes Component FINAL DIAGNOSIS A, B. Brain, left temporal mass, biopsy and resection: - Morphologically consistent with high grade glioma. See comment. Diagnosis Comment CARLOS stained sections reveal a hypercellular infiltrating glioma with moderate to marked nuclear pleomorphism and increased mitoses (upto 4 per 10 high per field). Pseudopalisading necrosis and microvascular proliferation are identified. Immunohistochemical stains are performed at [facility] to better classify this lesion (block B1) and show the following in neoplastic cells: IDH1 R132H: neagtive (wildtype); ATRX: retained (wildtype); BRAF V600E: negative (wildtype); p53 strong nuclear positivity in up to 40%; Ki67 proliferative index up to 25%. Addendum This addendum is rendered to report the results of the following molecular studies: Targeted Oncology Panel: The oncogenic TERT promoter alteration, c.-124C>T (also known as C228T) was detected in this specimen; MGMT promoter methylation: not hypermethylated. 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 Addendum electronically signed by Krista Snow MD on 04/03/2023 at 9:13 AM Imaging: MRI Report MRI BRAIN WO/W IVCON Exam End: 07/13/2024 9:47 AM (Final result) Narrative: * * *Final Report* * * DATE OF EXAM: Jul 13 2024 9:47AM [facility] [id number] - MRI BRAIN WO/W IVCON / PROCEDURE REASON: GBM (glioblastoma multiforme) (HCC) * * * * Physician Interpretation * * * * EXAMINATION: MRI BRAIN WO/W IVCON HISTORY: GBM (glioblastoma multiforme) (HCC) - - - Primary neoplasm/metastasis/postop F/U - Brain/PATENT PARALEGAL neoplasm, assess treatment response - [id number] - - GBM (glioblastoma multiforme), WITH PERFUSION CASE 3322; [id number] - - TECHNIQUE: MRI brain intracranial mass protocol without and with contrast. Perfusion imaging was performed. M: [id number] MR Contrast: Dotarem Contrast Dose: 20 cc Route of Administration: Central IV COMPARISON: MRI brain 05/28/2024. 05/26/2024. 04/12/2024. RESULT: Acute Change: No evidence of an acute intracranial process. Hemorrhage: No evidence of prior parenchymal hemorrhage on the susceptibility weighted sequences. Mass Lesion/ Mass Effect: Again demonstrated prior operative changes related to left craniotomy for left temporal lobe mass resection with interval development of a prominent left convexity extra-axial collection which appears contiguous with fluid collection surrounding the left temporal craniotomy flap which extends to the extra calvarial soft tissues of the inferotemporal fossa. This measures up to 1.2 cm in greatest thickness (series 13, image 14) with extra calvarial component measuring up to 1.0 cm in thickness (series 13, image 20) without areas of abnormal enhancement. Few scattered areas of susceptibility artifact are present underneath the craniotomy defect and within this postoperative T2 hyperintense collection which may reflect prior postoperative changes although there collection is mostly composed of CSF attenuating fluid. Ill-defined areas of mildly nodular enhancement along the mesial left temporal lobe anteriorly (series 14, image 99) questionably measuring up to 0.4 x 1.1 cm in greatest transaxial dimension not well appreciated on coronal imaging may represent residual areas of enhancement from previously resected mass with small amount of minimally nodular enhancement along the temporal resection cavity (series 14, image 7). Overall, areas of enhancement appears slightly increased in the interim. Perfusion imaging demonstrates no definite perfusion abnormality or elevated CBV within the constraints of susceptibility and small area of enhancement which may be beyond the resolution of perfusion. T2/FLAIR hyperintensity surrounding the resection cavity margins likely reflects a component of gliosis. Small focus of enhancement is seen within the left dorsal basal ganglia and internal capsule (series 14, image 87 measuring up to 0.5 x 0.3 x 0.2 cm (series 14, image 90 and series 13, image 18) with a lentiform appearance, could represent a small vascular structure although no significant susceptibility is demonstrated. Mild localized mass effect secondary to left greater than right T2 hyperintense hygromatous collection with approximately 4 mm of midline shift to the right. Mild sulcal effacement along the left cerebral sulci. Perfusion: MR perfusion study was performed of the entire brain following bolus intravenous administration of gadolinium utilizing dynamic susceptibility-weighted contrast-enhanced acquisition. Noncontributory Chronic Change: Scattered punctate foci of increased T2 and FLAIR signal are noted in the supratentorial white matter which is a nonspecific finding, but likely represents minimal chronic microvascular ischemia. Parenchyma: No significant parenchymal volume loss for age. Ventricles: Normal caliber and morphology. Skull Base: Hypothalamic and pituitary region are grossly normal. Craniocervical junction is normal. No significant marrow replacement process. Vasculature: Major intracranial arteries and dural venous sinuses demonstrate typical flow voids, suggesting patency by spin echo criteria. Other: The paranasal sinuses and mastoid air cells are clear. The orbits and extracranial soft tissues are unremarkable. Impression: IMPRESSION: Similar to very slightly increased enhancement marginating the anterior mesial left temporal lobe as described, possibly postoperative or residual enhancing mass. No definite perfusion abnormality. Small focus of enhancement within the dorsal left basal ganglia, questionable for residual/recurrent process. Continued follow-up is recommended. Stable postoperative changes with enlarging left convexity CSF intensity collection measuring up to 1.2 cm causing mass effect and approximately 4 mm of midline shift to the right. Additional CSF intensity fluid surrounding the craniotomy flap involving the extra calvarial soft tissues as detailed. Call Worker Person: [facility] Transcribe Date/Time: Jul 13 2024 11:49A Dictated by : ADAM THORNTON MD This examination was interpreted and the report reviewed and electronically signed by: ADAM THORNTON MD on Jul 13 2024 12:05PM EST I reviewed the images with the patient. 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 Now with progressive disease per MRI from February 2024 --The patient is eligible for CASE 3322 clinical trial with methimazole + chemo. Patient signed consent. Had methimazole prior to surgery. He had second surgery the path is GBM He will start lomustine, I capped the dose up to 200 mg (standard), as single agent. Reference from UpToDate 1- Glioblastoma: Single-agent therapy, recurrent glioblastoma: Oral: 100 to 130 mg/m2 once every 6 weeks until disease progression or unacceptable toxicity (Ref) or 110 mg/m2 on day 1 every 6 weeks (maximum dose: 200 mg) for a maximum of 6 cycles (Ref). Reference: Concepcion W, Jasiel HM, Katelyn KIM, et al. Single-agent bevacizumab or lomustine versus a combination of bevacizumab plus lomustine in patients with recurrent glioblastoma (BELOB trial): a randomised controlled phase 2 trial. Lancet Oncol. 2014;15(9):943-953. doi:10.1016/I6357-4903(80)74885-4 [PubMed [id number]] 5-Vqthd-Jwjzhzrr 25(7), 7401-27982022 Excerpt/verbatim When given as a single agent the dose is usually 110 or 130 mg/m2 in cycles of 6 weeks because of the delayed myelosuppression (Supplementary Table S5). Most centers cap the dose at 200 mg. In case of significant hematological toxicity experienced during temozolomide treatment in the first-line setting, a first lomustine cycle with a reduced dose reduction can be considered and escalation at cycle 2 if the first cycle was well tolerated. PLAN: 1- GBM-MGMT promoter not hyper methylated. MRI of the brain from Jul 13, 2024 overall stable. -Continue CASE 3322 clinical trial with methimazole + chemo. -Continue methimazole per trial. -Lomustine 110 mg/M2 , dose capped 200 mg /42 day cycle -Not to initiate bevacizumab (edwin) at this time. 2-xhootmigwlvs-vtvzlgn nausea: -Use Zofran, prior/after chemo and as needed 3-Imaging surveillance: -Brain w and w/o contrast and perfusion - 4 weeks from last MRI 2A-Clinic visits: -per clinical trial -1-2 days after the MRI in 4 weeks, or the same day if MR is done at . 3-Bone marrow suppression from chemotherapy: periodic CBC, every 4 weeks Also, CMP every 4 weeks. Other blood test, per clinical trial 4- Seizures: Since I saw him last, he has not had any events to suggest seizures (02/19/2024). -On lacosamide (Vimpat): Started on 04/05/23. Dose is 150 mg twice a day. -Lacosamide blood levels, Latest Reference Range AND Units 07/14/24 09:38 Lacosamide 2.2 - 19.8 ug/mL 10.6 Based on the above levels to continue on the same dose. 5-Seizure precautions: The patient is not to drive any motorized vehicle, and not to engage in activities that could place her or others in danger if she were to have a seizure. I also discussed the use of rescue medication for breakthrough seizures, using midazolam nasal spray (NS) to use it as needed (PRN) and discussed when to use it. I discussed the potential benefits and side effects, including tiredness, fatigue, and or sleepiness and if so, the patient is not to engage in activities that require to be fully alert. I have also provided written information for the patient's review. 6-He is to follow by her PCP for general medical care/coordination of care. 7-NOT ON STEROIDS 8-To see PCP for to define appropriate vaccinations above. 9-Potential for thromboembolism: to watch for potential DVT/Pulmonary Embolism, and if so to go to the ED/call 911. 10-End of life issues: Adv Dir in chart. -Patient discussed, this important aspect, of his diagnosis, that is, that he acknowledges, that this condition will end his life, at young age, and relatively soon and that he has goals, for the next year or so, that is, to attend, important milestones events of his children's, which will take place, in the next year or so. Currently,02/19/24 his children's are 20 and 21 years old. He has seen Dr. Lion, from palliative medicine will also give advice regarding his. 11-psychosocial issues: Patient asked, advised on how to approach, his current diagnosis and progressive disease, with his children who are 2020. We given some advice, how it could be helpful for his children to cope with his unfortunate condition. However, we recommended for him to seek attention from psychosocial oncology, and this Could be expanded to the family. He has seen Dr. Daniel Juárez from psychology and psychiatry, as well [facility] Jaclyn Guillory. 12-Hygroma on surgical site: MRI 07/13/24 reported as (excerpt/verbatim): enlarging left convexity CSF intensity collection measuring up to 1.2 cm causing mass effect and approximately 4 mm of midline shift to the right. I reviewed this with Dr. Evans. Not symptomatic, continue watching. No need for intervention form NSGY perspective. I saw the patient in collaboration with Lester Beckett RN [facility] clinical trials nurse. In the end the patient and family verbalized understanding of the above, they had questions which I believe I answered to their satisfaction and agreed with these recommendations and had no further questions or concerns for the moment, but I encourage them to call the [facility] with any questions or concerns. I spent a total of 40 minutes on the date of the service which included preparing to see the patient, at least 50% of gweo-im-frvu patient care, completing clinical documentation, obtaining and/or reviewing separately obtained history, performing a medically appropriate examination, counseling and educating the patient/family/caregiver, ordering medications, tests, or procedures, communicating with other HCPs (not separately reported), independently interpreting results (not separately reported), communicating results to the patient/family/caregiver and care coordination (not separately reported). Patricia Enriquez MD [facility] Patient Care Team: -Jose Evans MD, Neurosurgery, [facility], [facility], [facility] Cyndee Joyce MD, PhD, Radiation Oncology, [facility], [facility]. Jaclyn Guillory LSW as Pull Worker (Hematology/Oncology) Soraida Simmons RN (Hospice AND Palliative Medicine) Willy Lion MD (Hospice AND Palliative Medicine) Rupa Khoury APRN.[facility]SON (Hospice AND Palliative Medicine) Daniel Juárez PSYD, Psychology, [facility] Referring Provider: PATRICIA ENRIQUEZ [[id number]] Allergies As of Date: 07/14/2024 (No Known Allergies) Date Reviewed: 07/14/2024 Reviewed by: Karla Pedroza MA - Fully Assessed Reason for Visit: Established Patient [175] Primary Visit Diagnosis:Chemotherapy-induced nausea [R11.0, T45.1X5A] Other Visit Diagnoses:Encounter for chemotherapy management [Z51.11] Examination of participant in clinical trial [Z00.6] Seizures (HCC) [R56.9] High grade glioma not classifiable by WHO criteria (HCC) [C71.9] GBM (glioblastoma multiforme) (HCC) [C71.9] At risk of seizures [Z91.89] Glioblastoma (HCC) [C71.9] Brain tumor (HCC) [D49.6] Forehead pain [R51.9] Chemotherapy management, encounter for [Z51.11] Prescriptions as of 07/18/2024 - iv contrast (will be provided with radiology test) MRI Brain Inject, intravenously, once for 1 dose.No IV access, insert saline lock prior to beginning of sedation, infusion, injection of imaging exam.Discontinue saline lock post exam. If Pt. has a central line or IVAD, may access for administration according to line specific nursing protocol.Once exam is complete flush line and de-access according to line specific nursing protocol in the MR contrast administration guidelines link - methIMAzole (TAPAZOLE) 5 mg tablet Take TWO 10 mg tablets and ONE 5 mg tablet for a total dose of 25 mg, daily. - methIMAzole (TAPAZOLE) 10 mg tablet Take TWO 10 mg tablets and ONE 5 mg tablet for a total dose of 25 mg, daily. - acetaZOLAMIDE (DIAMOX) 250 mg tablet Take 1 tablet by mouth two times a day for 14 days. - ondansetron (ZOFRAN) 8 mg tablet Take one tablet by mouth on an empty stomach in the evening one hour prior to chemo. Then take one tablet 24 hours after chemo. May repeat dose every 8-12 hours if needed to prevent nausea - lacosamide (VIMPAT) 150 mg tab Take 1 tablet by mouth two times a day. - lomustine (GLEOSTINE) 100 mg capsule Take one 8 mg Zofran on an empty stomach in the evening. Wait ONE hour. Take TWO 100 mg capsule(s) Lomustine by mouth for a total dose of 200 mg. Take one 8 mg Zofran twenty-four hours later. Take on Day 1 of each 42 day cycle. - iv contrast (will be provided with radiology test) MRI Brain Inject, intravenously, once for 1 dose.No IV access, insert saline lock prior to beginning of sedation, infusion, injection of imaging exam.Discontinue saline lock post exam. If Pt. has a central line or IVAD, may access for administration according to line specific nursing protocol.Once exam is complete flush line and de-access according to line specific nursing protocol in the MR contrast administration guidelines link - iv contrast (will be provided with radiology test) MRI Brain Inject, intravenously, once for 1 dose.No IV access, insert saline lock prior to beginning of sedation, infusion, injection of imaging exam.Discontinue saline lock post exam. If Pt. has a central line or IVAD, may access for administration according to line specific nursing protocol.Once exam is complete flush line and de-access according to line specific nursing protocol in the MR contrast administration guidelines link - meclizine (ANTIVERT) 25 mg tab Take 1 tablet by mouth three times a day. - valACYclovir (VALTREX) 1 gram tablet Take 1,000 mg by mouth three times a day. - midazolam (NAYZILAM) 5 mg/spray (0.1 mL) nasal spray Use 1 [place] in the nose as needed for up to 10 days. May repeat dose in alternate nostril after 10 minutes based on response and tolerability. - sennosides (SENNA ORAL) Take by mouth. - DIETARY SUPPLEMENT,MISC COMB14 ORAL Take by mouth. Biomega 1000mg containing vitamin E and pure anchovy - medical supply, miscellaneous (MISCELLANEOUS MEDICAL SUPPLY MIS) Neurotrophin - acetaminophen (TYLENOL) 325 mg tablet 2 tablets by ORAL/FEEDING TUBE route every 4 hours as needed for pain. - pantoprazole DR (PROTONIX) 20 mg tablet Take 1 tablet by mouth DAILY (6 AM). Problem List As Of Date 07/14/2024 Noted Resolved Chest pain [R07.9] 04/25/2010 05/26/2024 Brain mass [G93.89] 03/17/2023 11/17/2023 Obesity, Class I, BMI 30-34.9 [E66.811] 03/17/2023 Brain compression (HCC) [G93.5] 03/20/2023 S/P brain surgery [Z98.890] 03/20/2023 11/17/2023 At risk for seizures [Z91.89] 03/20/2023 Cerebral edema (HCC) [G93.6] 03/20/2023 GBM (glioblastoma multiforme) (HCC) [C71.9] 04/07/2023 Syncope, unspecified syncope type [R55] 11/01/2023 11/03/2023 Examination of participant in clinical trial [Z*11/05/2023 11/17/2023 Forehead pain [R51.9] 11/05/2023 PONV (postoperative nausea and vomiting) [R11.2*05/26/2024 Acute post-operative pain [G89.18] 05/29/2024 Visit Notes: >> Tanvi Stewart MA Shikha Jul 14, 2024 10:29 AM Status: Signed Additional intake questions: Has the patient had fever, nausea, vomiting, diarrhea, constipation, fatigue for > 1 week? Yes, constipation (8 day of last BM ) Does the patient have a decreased appetite? No Does patient want to see a Outside Solar Sales Consultant? No (yes to any of above refer patient to schedulers for dietitian appointment) ) Does patient have any new or increased numbness or tingling of extremities? No Is patient interested in fertility information? No Does patient need any prescription refills? No Does patient have an advanced directive in place? Yes, copies are in Epic Electronically Signed By: Tanvi Stewart MA Encounter Status:Closed by PATRICIA ENRIQUEZ on 07/18/24 PROGRESS Observed: 07/14/2024 9:52 AM Status: COMPLETED Source: [facility] HNO ID: [id number] Author: NADEEN BECKETT RN Service: ? 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 Enriquez Study start date: 05/24/2024 (start of Pre-Op Methimazole) Date: 07/14/2024 - Cycle 2 Day 1/End of CHUCHO period Accompanied by: self Denies numbness, weakness, gait imbalance, seizures, headaches, or visual disturbances. Denies SOB, no edema, no falls. HANDP, neuro exam: Dr. Enriquez Was physical and neuro exam completed by a resident or fellow?: NO MRI visit: YES -STABLE - Per Dr. Enriquez he would like the patient to get a short interval scan at 6 weeks vs 8 weeks. Change in KPS: NO; Patient's KPS: 80: Normal activity with effort; some signs or symptoms of disease Steroid dose: Dexamethasone 2mgQD; Per Dr. Fraire, he wants the patient to taper down to Dexamethasone [id number] and will receive a call next week to determine if the patient may be tapered off. Changes in medication regimen: Yes: please see above. Any new thyroid medications added to regimen: No Education: Immunotherapy wallet card given: YES First dose education on schedules, treatment calendar, medication(s) (Methimazole, Lomustine ) and side effects presented to patient. Questions answered. 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 More sensitivity to cold. Constipation. Dry skin. Weight gain. Puffy face. Hoarse voice. Coarse hair and skin. Muscle weakness. Muscle aches, tenderness and stiffness. Menstrual cycles that are heavier than usual or irregular. Thinning hair. Slowed heart rate, also called bradycardia. Depression. Memory problems. Does patient have any signs or symptoms of hypothyroidism: No Hyperthyroidism sometimes looks like other health problems: Losing weight without trying. Fast heartbeat, a condition called tachycardia. Irregular heartbeat, also called arrhythmia. Pounding of the heart, sometimes called heart palpitations. Increased hunger. Nervousness, anxiety and irritability. Tremor, usually a small trembling in the hands and fingers. Sweating. Changes in menstrual cycles. Increased sensitivity to heat. Changes in bowel patterns, especially more-frequent bowel movements. Enlarged thyroid gland, sometimes called a goiter, which may appear as a swelling at the base of the neck. Tiredness. Muscle weakness. Sleep problems. Warm, moist skin. Thinning skin. Fine, brittle hair. Does patient have any signs or symptoms of hyperthyroidism: No Vitals in clinic: 07/14/2024 10:31 AM ONCOLOGY VITALS (ALL DEPTS) Temp 36.6 ?C (97.9 ?F) Pulse 87 Resp 18 SYSTOLIC 147 DIASTOLIC 88 SpO2 97 % WEIGHT (lb) 214 lb 8.1 oz WEIGHT (kg) 97.3 kg BSA (Mosteller Formula) 2.19 m2 BMI 30.92 kg/m2 Weight obtained: YES Labs: Latest Ref Rng 07/14/2024 WBC 3.70 - 11.00 k/uL 4.83 RBC 4.20 - 6.00 m/uL 4.17 (L) Hemoglobin 13.0 - 17.0 g/dL 13.6 Hematocrit 39.0 - 51.0 % 38.6 (L) MCV 80.0 - 100.0 fL 92.6 MCH 26.0 - 34.0 pg 32.6 MCHC 30.5 - 36.0 g/dL 35.2 RDW-CV 11.5 - 15.0 % 14.7 Platelet Count 150 - 400 k/uL 220 MPV 9.0 - 12.7 fL 8.4 (L) Neut% % 62.4 Abs Neut (ANC) 1.45 - 7.50 k/uL 3.01 Lymph% % 11.4 Abs Lymph 1.00 - 4.00 k/uL 0.55 (L) Branch% % 15.9 Abs Branch <0.87 k/uL 0.77 Eosin% % 8.3 Abs Eosin <0.46 k/uL 0.40 Baso% % 1.4 Abs Baso <0.11 k/uL 0.07 Immature Gran % % 0.6 IMMATURE GRANS (ABS) <0.10 k/uL 0.03 NRBC /100 WBC 0.0 Absolute nRBC <0.01 k/uL <0.01 DTYPE Auto Protein, Total 6.3 - 8.0 g/dL 6.5 Albumin 3.9 - 4.9 g/dL 3.9 Calcium 8.5 - 10.2 mg/dL 9.1 Bilirubin, Total 0.2 - 1.3 mg/dL 0.5 Alkaline Phosphatase 38 - 113 U/L 613 (H) AST 14 - 40 U/L 80 (H) ALT 10 - 54 U/L 218 (H) Glucose 74 - 99 mg/dL 105 (H) BUN 9 - 24 mg/dL 7 (L) Creatinine 0.73 - 1.22 mg/dL 0.88 Sodium 136 - 144 mmol/L 141 Potassium 3.7 - 5.1 mmol/L 4.0 Chloride 98 - 107 mmol/L 105 CO2 22 - 30 mmol/L 27 Anion Gap 8 - 15 mmol/L 9 eGFR >=60 mL/min/1.73m? 102 Free T4 0.9 - 1.7 ng/dL 1.2 T4 5.5 - 10.2 ug/dL 7.7 Free T3 2.3 - 4.1 pg/mL 2.7 T3 79 - 165 ng/dL 103 TSH 0.270 - 4.200 mIU/L 1.340 Legend: (L) Low (H) High Please see uploaded labs. TFTs (TSH, T3, T4, free T3 and free T4) reviewed and appropriate to continue Methimazole: YES Baseline CrCl (05/12/2024): 99 ml/min (based on sCr of 1.20 mg/dL) Today's CrCl (07/14/2024): 131 ml/min (based on sCr of 0.88 mg/dL) CrCl is >= 50 ml/min to start: YES Out out of range values: NCS Negative Serum test, if applicable: N/A Methimazole: Orders signed for Methimazole to begin for Cycle 2 Day 1: YES Patient is dose level: 2 Dose level - Methimazole - Cycle 2 -1 10 mg daily 1 15 mg daily 2 25 mg daily Methimazole dispensed today by [facility] pharmacy and patient has brought medication to clinic visit: YES Patient received 2 bottles of Methimazole (one 10 mg strength, one 5 mg strength). Each 10mg bottle contains 60 tablets and each 5mg bottle contains 30 tablets, for a total of 90 tablets. Patient is aware to keep pill bottle and return to research staff as drug will be destroyed on site following return of unused medication: CORRECT Methimazole may be taken with or without food but it must be swallowed whole without crushing or chewing: Take two 10 mg tablets and ONE 5 mg tablets for a total dose of 25 mg, daily for a 28-day cycle. Patient is due to start Cycle 2 Day 1 Methimazole on: 07/14/2024 Correlative study lab (up to 3 days before starting drug) has been: Completed, 07/14/2024 Was any Methimazole dose changed, missed, reduced or held: No If Methimazole was held, it did NOT EXCEED 4 weeks: N/A Methimazole Returned Medication (C1): Patient returned 2 bottles (one 10 mg strength, one 5 mg strength) with 0 capsules remaining from C1 administration. Leftover drug will be destroyed on site ([facility] Drop-[facility]) following return of unused medication: CORRECT Was any Methimazole dose changed, missed, reduced or held in the Cycle 1: No Physician's Choice: Lomustine -Lomustine 110 mg/m2 on D1 of 42-day cycle for 200mg (per Dr. Enriquez) + Avastin : Patient's Dose: 200mg. Started: 06/28/2024 Labs reviewed and appropriate to start YES: YES Was any Lomustine dose changed, missed, reduced or held: No Schedule of drugs: Date Methimazole Cycle Lomustine Cycle 07/14 C2D1 07/15 C2D2 07/16 C2D3 07/17 C2D4 07/18 C2D5 07/19 C2D6 07/20 C2D7 07/21 C2D8 07/22 C2D9 07/23 C2D10 07/24 C2D11 07/25 C2D12 07/26 C2D13 07/27 C2D14 07/28 C2D15 07/29 C2D16 07/30 C2D17 07/31 C2D18 08/01 C2D19 08/02 C2D20 08/03 C2D21 08/04 C2D22 08/05 C2D23 08/06 C2D24 08/07 C2D25 08/08 C2D26 08/09 C2D27 08/10/2024 C2D28 Treatment plan: Completed treatments: Pre-Op Methimazole (Dose Level 2; 25 mg daily): 05/24/2024 to 06/15/2024 (including DAY of surgery) Surgical Resection by Dr. Evans: 05/27/2024 Post-Op Methimazole (Dose Level 2; 25 mg daily): 05/27/2024 (POD1) to 06/15/2024 Cycle 1 Methimazole (Dose Level 2; 25 mg daily): 06/16 to 07/13 Cycle 1 Lomustine 06/28/2024 (200 mg 1Q42D): Cycle 2 Methimazole (Dose Level 2; 25 mg daily): 07/14 to 08/10/2024 Ongoing AE Grade Scale Assessment - CTCAE v.5: Neuro, other (thought process changes) - Grade 1 - Baseline; Probable to study disease. Symptom is: Controlled with no intervention; Approximately started: 03/16/2023 to present; Baseline at screening 04/09/2023 Seizures (at risk for) - Grade 1 - Baseline; Unrelated to historical disorder/disease; Probable to study disease. 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 Symptom is: Controlled with lifestyle changes; Approximately started: 05/12/2024 to present; Baseline at screening 05/12/2024; upgraded to grade 2 on 05/26/2024; Current status: Ongoing - worsening. Stable. NEW AEs: Hypocalcemia - Grade 1 - Possible to Methimazole, Unlikely to study disease. Symptom is: Controlled; Start date: 06/16/2024; Action required for AE: NO; Intervention required: none; Current status/outcome: Ongoing - stable. RESOLVED 07/14/2024 Decreased AST - Grade 1 - unlikely to Methimazole, Unlikely to study disease. Symptom is: Controlled; Start date: 06/16/2024; Action required for AE: NO; Intervention required: none; Current status/outcome: Ongoing - stable. RESOLVED 07/14/2024 Hyponatremia - Grade 1 - unlikely to Methimazole, Unlikely to study disease. Symptom is: Controlled; Start date: 06/16/2024; Action required for AE: NO; Intervention required: none; Current status/outcome: Ongoing - stable. RESOLVED 07/14/2024 Elevated Alkaline Phosphatase - Grade 3 - Probable to Methimazole, unlikely to Lomustine, Unlikely to study disease. Symptom is: Controlled; Start date: 07/14/2024; Action required for AE: NO; Intervention required: none; Current status/outcome: Ongoing - stable Elevated AST - Grade 1 - Probable to Methimazole, unlikely to Lomustine, Unlikely to study disease. Symptom is: Controlled; Start date: 07/14/2024; Action required for AE: NO; Intervention required: none; Current status/outcome: Ongoing - stable Elevated ALT - Grade 2 - Probable to Methimazole, unlikely to Lomustine, Unlikely to study disease. Symptom is: Controlled; Start date: 07/14/2024; Action required for AE: NO; Intervention required: none; Current status/outcome: Ongoing - stable Decreased RBC - Grade 1 - Unlikely to Methimazole, possible to LomustineUnlikely to study disease. Symptom is: Controlled; Start date: 07/14/2024; Action required for AE: NO; Intervention required: none; Current status/outcome: Ongoing - stable RESOLVED AEs: none CHUCHO Review: End of CHUCHO period is today, 07/14/2024. Based on CTCAE above, does patient a protocol defined methimazole-related AE Dose-Limiting Toxicity (CHUCHO) that occurred from the first day of treatment to end of Cycle 1:YES Presence of Grade 4 neutropenia lasting > 7 days: NO Presence of Grade 3 or 4 neutropenia complicated by fever >38.0?C or infection: NO Presence of Grade 4 thrombocytopenia: NO Presence of Grade 3 thrombocytopenia complicated by hemorrhage: NO Presence of Grade 3 or 4 anemia: NO Presence of Grade >3 AST/ALT elevation [exceptions may be made for transient (e.g. lasting < 7 days)]: NO Presence of Grade 3 or 4 non-hematologic toxicity (excluding fatigue or anorexia lasting < 7 days, or Grade 3 nausea and/or vomiting that persists for < 2 days following appropriate supportive care): NO Patient does continue to meet eligibility to proceed with therapy per Dr. Enriquez: YES Discharged in apparent satisfactory condition. All questions answered. Patient agree to call with questions, concerns, change in symptoms. Patient agreed to call with any symptoms or side effects not mentioned. Patient agreed to plan. Patient has the contact information for treating physician, research staff and the 24-hour Lnqlbwexne-Hf-Lrwn number ([phone] or ) for the Heme/Onc Fellow. Upcoming appointments: 08/11/2023 - Cycle 3 Day 1 Nadeen Beckett RN 07/14/2024 9:52 AM Chart routed to Dr. Enriquez (Primary): YES T3FREE SERPL-MCNC Collected: 07/14/2024 9:38 AM Stat us: F Source: [facility] Comment: Specimen Type : BLOOD SPECIMEN Ordering Facility: [facility] Address: [address] [place] [address] TYPE CODE TESTS RESULT OUT OF RANGE REFERENCE UNITS LAB 3051-0(LOINC) T3Free SerPl-mCnc 2.7 2.3-4.1 pg/mL Performed By: #### 3026-2, 3 053-6, 3024-7, 3051-0 #### [facility] CLIA [id number] [address] [place] [address] [place] T4 FREE SERPL-MCNC Collected: 07/14/2024 9:38 AM Sta tus: F Source: [facility] Comment: Specimen Type : BLOOD SPECIMEN Ordering Facility: [facility] Address: [address] [place] [address] TYPE CODE TESTS RESULT OUT OF RANGE REFERENCE UNITS LAB 3024-7(LOINC) T4 Free SerPl-mCnc 1.2 0.9-1.7 ng/dL Performed By: #### 3026-2, 3 053-6, 3024-7, 3051-0 #### [facility] CLIA [id number] [address] [place] [address] [place] T3 SERPL-MCNC Collected: 07/14/2024 9:38 AM Status: F Source: [facility] Comment: Specimen Type : BLOOD SPECIMEN Ordering Facility: [facility] Address: [address] [place] [address] TYPE CODE TESTS RESULT OUT OF RANGE REFERENCE UNITS LAB 3053-6(LOINC) T3 SerPl-mCnc 103 79-165 ng/d L Performed By: #### 3026-2, 3 053-6, 3024-7, 3051-0 #### [facility] CLIA [id number] [address] [place] [address] [place] T4 SERPL-MCNC Collected: 07/14/2024 9:38 AM Status: F Source: [facility] Order Comment: Specimen Type : BLOOD SPECIMEN Ordering Facility: [facility] Address: [address] [place] [address] TYPE CODE TESTS RESULT OUT OF RANGE REFERENCE UNITS LAB 3026-2([facility]) T4 SerPl-mCnc 7.7 5.5-10.2 ug/ dL Performed By: #### 3026-2, 3 053-6, 3024-7, 3051-0 #### [facility] CLIA [id number] [address] [place] [address] [address] [place] COMP METAB 2000 PNL SERPL Collected: 9:38 AM Status: F Source: [facility] Comment: Specimen Type : BLOOD SPECIMEN Ordering Facility: [facility] Address: [address] [place] [address] TYPE CODE TESTS RESULT OUT OF RANGE REFERENCE UNITS LAB 2885-2(LOINC) Prot SerPl-mCnc 6.5 6.3-8.0 g/dL LAB 1751-7(LOINC) Albumin SerPl-mCnc 3.9 3.9-4.9 g/dL LAB 58882-7(LOINC) Calcium SerPl-mCnc 9.1 8.5-10.2 mg/dL LAB 1975-2(LOINC) Bilirub SerPl-mCnc 0.5 0.2-1.3 mg/dL LAB 6768-6(LOINC) ALP SerPl-cCnc 613 High 38-113 U/L LAB 1920-8(LOINC) AST SerPl-cCnc 80 High 14-40 U/L LAB 1742-6(LOINC) ALT SerPl-cCnc 218 High 10-54 U/L LAB 2345-7(LOINC) Glucose SerPl-mCnc 105 High 74-99 mg/dL Result Comment: The [place] Diabetes [employer] (ADA) provides guidance for cutoff values for fasting glucose and random glucose. The ADA defines fasting as no caloric intake for at least 8 hours. Fasting plasma glucose results between 100 to 125 mg/dL indicate increased risk for diabetes (prediabetes). Fasting plasma glucose results greater than or equal to 126 mg/dL meet the criteria for diagnosis of diabetes. In the absence of unequivocal hyperglycemia, results should be confirmed by repeat testing. In a patient with classic symptoms of hyperglycemia or hyperglycemic crisis, random plasma glucose results greater than or equal to 200 mg/dL meet the criteria for diagnosis of diabetes. Reference: Standards of Medical Care in Diabetes 2016, [place] Diabetes Association. Diabetes Care. 2016.39(Suppl 1). LAB 3094-0(LOINC) BUN SerPl-mCnc 7 Low 9-24 mg/ dL LAB 2160-0(LOINC) Creat SerPl-mCnc 0.88 0.73-1.22 mg/dL LAB 2951-2(LOINC) Sodium SerPl-sCnc 141 136-144 mmol/L LAB 2823-3(LOINC) Potassium SerPl-sCnc 4.0 3.7-5.1 mmol/L LAB 2075-0(LOINC) Chloride SerPl-sCnc 105 98-107 mmol/L LAB 2028-9(LOINC) CO2 SerPl-sCnc 27 22-30 mmo l/L LAB 16552-4(LOINC) Anion Gap SerPl-sCnc 9 8-15 mmol/L LAB 41160-4(LOINC) Creatinine + eGFR Pnl SerPlBld 102 >=60 mL/min/1 .73m??? Result Comment: Estimated Gl omerular Filtration Rate (eGFR) is calculated using the 2020 CKD-EPI creatinine equation. This equation utilizes serum creatinine, sex, and age as parameters. The creatinine assay has traceable calibration to isotope dilution-mass spectrometry. Refer to KDIGO guidelines for clinical interpretation. In patients with unstable renal function, e.g. those with acute kidney injury, the eGFR may not accurately reflect actual GFR. Performed By: #### 63651-9 # ### [facility] CLIA [id number] [address] [place] [address] [place] TSH SERPL-ACNC Collected: 4 9:38 AM Status: F Source: [facility] Order Comment: Specimen Type : BLOOD SPECIMEN Ordering Facility: [facility] Address: [address] [place] [address] TYPE CODE TESTS RESULT OUT OF RANGE REFERENCE UNITS LAB 3016-3(LOINC) TSH SerPl-aCnc 1.340 0.270-4.200 mIU/L Performed By: #### 3016-3 ## ## [facility] CLIA [id number] [address] [place] [address] LACOSAMIDE Collected: 9:38 AM Status: F Source: [facility] Order Comment: Specimen Type : BLOOD SPECIMEN Ordering Facility: [facility] Address: [address] [place] [address] TYPE CODE TESTS RESULT OUT OF RANGE REFERENCE UNITS LAB 59199-8(LOINC) Lacosamide SerPl-mCnc 10.6 2.2-19.8 ug/mL Result Comment: Expected con centration of patients receiving 200-400 mg/day is 2.2-19.8 ug/mL for Lacosamide. This test was developed, and its performance characteristics determined by the [facility] Department of Pathology and Laboratory Medicine. It has not been cleared or approved by the FDA. The [facility] Department of Pathology and Laboratory Medicine is regulated under CLIA as qualified to perform high- complexity testing. This test is used for clinical purposes. It should not be regarded as investigational or for research. Performed By: #### LACOS ### # [facility] CLIA [id number] [address] [place] [address] [place] CBC W AUTO DIFF BLD Collected: 07/14/2024 9:[address] atus: F Source: [facility] Order Comment: Specimen Type : BLOOD SPECIMEN Ordering Facility: [facility] Address: [address] [place] [address] TYPE CODE TESTS RESULT OUT OF RANGE REFERENCE UNITS LAB 6690-2(LOINC) WBC # Bld Auto 4.83 3.70-11.00 k/uL LAB 789-8(LOINC) RBC # Bld Auto 4.17 Low 4.20-6.00 m/ uL LAB 718-7(LOINC) Hgb Bld-mCnc 13.6 13.0-17.0 g/dL LAB 4544-3(LOINC) Hct VFr Bld Auto 38.6 Low 39.0-51.0 % LAB 787-2([facility]) MCV RBC Auto 92.6 80.0-100.0 fL LAB 785-6([facility]) MCH RBC Qn Auto 32.6 26.0-34.0 p g LAB 786-4([facility]) MCHC RBC Auto-mCnc 35.2 30.5-36.0 g/dL LAB 92736-0([facility]) RDW RBC-Rto 14.7 11.5-15.0 % LAB 777-3([facility]) Platelet # Bld Auto 220 150-400 k/uL LAB 72637-3([facility]) PMV Bld Auto 8.4 Low 9.0-12.7 fL LAB 770-8([facility]) Neutrophils/leuk NFr Bld Auto 62.4 % LAB 751-8([facility]) Neutrophils # Bld Auto 3.01 1.45-7.50 k/uL LAB 736-9([facility]) Lymphocytes/leuk NFr Bld Auto 11.4 % LAB 731-0([facility]) Lymphocytes # Bld Auto 0.55 Low 1.00-4.00 k/uL LAB 5905-5([facility]) Monocytes/leuk NFr Bld Auto 15.9 % LAB 742-7([facility]) Monocytes # Bld Auto 0.77 <0.87 k/uL LAB 713-8([facility]) Eosinophil/leuk NFr Bld Auto 8.3 % LAB 711-2([facility]) Eosinophil # Bld Auto 0.40 <0.46 k/uL LAB 706-2([facility]) Basophils/leuk NFr Bld Auto 1.4 % LAB 704-7([facility]) Basophils # Bld Auto 0.07 <0.11 k/uL LAB 46413-1([facility]) Imm Granulocytes/christina k NFr Bld Auto 0.6 % LAB 17161-3([facility]) Imm Granulocytes # Bld Auto 0.03 <0.10 k/uL LAB 23757-2([facility]) nRBC/100 WBC Bld-Rto 0.0 /100 WBC LAB 771-6([facility]) nRBC # Bld Auto <0.01 <0.01 k/u L LAB 07178-2([facility]) Differential method Bld Auto Performed By: #### 29886-4 # ### [facility] CLPATRICIA [id number] [address] [place] [address] OF [facility] CNNURSE Observed: 07/14/2024 12:00 AM Status: COMPLETED Source: [facility] Nurse Visit (NSCAMN) ANGEL KEATING ([id number]) 1970 M Date Time Provider Department 07/14/24 NADEEN BECKETT NSCAMN During your visit today, we recorded the following information about you: Nadeen Beckett RN 09/02/2024 4:00 PM Addendum IRB#: [id number] 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 Enriquez Study start date: 05/24/2024 (start of Pre-Op Methimazole) Date: 07/14/2024 - Cycle 2 Day 1/End of CHUCHO period Accompanied by: self Denies numbness, weakness, gait imbalance, seizures, headaches, or visual disturbances. Denies SOB, no edema, no falls. HANDP, neuro exam: Dr. Enriquez Was physical and neuro exam completed by a resident or fellow?: NO MRI visit: YES -STABLE - Per Dr. Enriquez he would like the patient to get a short interval scan at 6 weeks vs 8 weeks. Change in KPS: NO; Patient's KPS: 80: Normal activity with effort; some signs or symptoms of disease Steroid dose: Dexamethasone 2mgQD; Per Dr. Fraire, he wants the patient to taper down to Dexamethasone [id number] and will receive a call next week to determine if the patient may be tapered off. Changes in medication regimen: Yes: please see above. Any new thyroid medications added to regimen: No Education: Immunotherapy wallet card given: YES First dose education on schedules, treatment calendar, medication(s) (Methimazole, Lomustine ) and side effects presented to patient. Questions answered. 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 More sensitivity to cold. Constipation. Dry skin. Weight gain. Puffy face. Hoarse voice. Coarse hair and skin. Muscle weakness. Muscle aches, tenderness and stiffness. Menstrual cycles that are heavier than usual or irregular. Thinning hair. Slowed heart rate, also called bradycardia. Depression. Memory problems. Does patient have any signs or symptoms of hypothyroidism: No Hyperthyroidism sometimes looks like other health problems: Losing weight without trying. Fast heartbeat, a condition called tachycardia. Irregular heartbeat, also called arrhythmia. Pounding of the heart, sometimes called heart palpitations. Increased hunger. Nervousness, anxiety and irritability. Tremor, usually a small trembling in the hands and fingers. Sweating. Changes in menstrual cycles. Increased sensitivity to heat. Changes in bowel patterns, especially more-frequent bowel movements. Enlarged thyroid gland, sometimes called a goiter, which may appear as a swelling at the base of the neck. Tiredness. Muscle weakness. Sleep problems. Warm, moist skin. Thinning skin. Fine, brittle hair. Does patient have any signs or symptoms of hyperthyroidism: No Vitals in clinic: 07/14/2024 10:31 AM ONCOLOGY VITALS (ALL DEPTS) Temp 36.6 ?C (97.9 ?F) Pulse 87 Resp 18 SYSTOLIC 147 DIASTOLIC 88 SpO2 97 % WEIGHT (lb) 214 lb 8.1 oz WEIGHT (kg) 97.3 kg BSA (Mosteller Formula) 2.19 m2 BMI 30.92 kg/m2 Weight obtained: YES Labs: Latest Ref Rng 07/14/2024 WBC 3.70 - 11.00 k/uL 4.83 RBC 4.20 - 6.00 m/uL 4.17 (L) Hemoglobin 13.0 - 17.0 g/dL 13.6 Hematocrit 39.0 - 51.0 % 38.6 (L) MCV 80.0 - 100.0 fL 92.6 MCH 26.0 - 34.0 pg 32.6 MCHC 30.5 - 36.0 g/dL 35.2 RDW-CV 11.5 - 15.0 % 14.7 Platelet Count 150 - 400 k/uL 220 MPV 9.0 - 12.7 fL 8.4 (L) Neut% % 62.4 Abs Neut (ANC) 1.45 - 7.50 k/uL 3.01 Lymph% % 11.4 Abs Lymph 1.00 - 4.00 k/uL 0.55 (L) Branch% % 15.9 Abs Branch <0.87 k/uL 0.77 Eosin% % 8.3 Abs Eosin <0.46 k/uL 0.40 Baso% % 1.4 Abs Baso <0.11 k/uL 0.07 Immature Gran % % 0.6 IMMATURE GRANS (ABS) <0.10 k/uL 0.03 NRBC /100 WBC 0.0 Absolute nRBC <0.01 k/uL <0.01 DTYPE Auto Protein, Total 6.3 - 8.0 g/dL 6.5 Albumin 3.9 - 4.9 g/dL 3.9 Calcium 8.5 - 10.2 mg/dL 9.1 Bilirubin, Total 0.2 - 1.3 mg/dL 0.5 Alkaline Phosphatase 38 - 113 U/L 613 (H) AST 14 - 40 U/L 80 (H) ALT 10 - 54 U/L 218 (H) Glucose 74 - 99 mg/dL 105 (H) BUN 9 - 24 mg/dL 7 (L) Creatinine 0.73 - 1.22 mg/dL 0.88 Sodium 136 - 144 mmol/L 141 Potassium 3.7 - 5.1 mmol/L 4.0 Chloride 98 - 107 mmol/L 105 CO2 22 - 30 mmol/L 27 Anion Gap 8 - 15 mmol/L 9 eGFR >=60 mL/min/1.73m? 102 Free T4 0.9 - 1.7 ng/dL 1.2 T4 5.5 - 10.2 ug/dL 7.7 Free T3 2.3 - 4.1 pg/mL 2.7 T3 79 - 165 ng/dL 103 TSH 0.270 - 4.200 mIU/L 1.340 Legend: (L) Low (H) High Please see uploaded labs. TFTs (TSH, T3, T4, free T3 and free T4) reviewed and appropriate to continue Methimazole: YES Baseline CrCl (05/12/2024): 99 ml/min (based on sCr of 1.20 mg/dL) Today's CrCl (07/14/2024): 131 ml/min (based on sCr of 0.88 mg/dL) CrCl is >= 50 ml/min to start: YES Out out of range values: NCS Negative Serum test, if applicable: N/A Methimazole: Orders signed for Methimazole to begin for Cycle 2 Day 1: YES Patient is dose level: 2 Dose level - Methimazole - Cycle 2 -1 10 mg daily 1 15 mg daily 2 25 mg daily Methimazole dispensed today by [facility] pharmacy and patient has brought medication to clinic visit: YES Patient received 2 bottles of Methimazole (one 10 mg strength, one 5 mg strength). Each 10mg bottle contains 60 tablets and each 5mg bottle contains 30 tablets, for a total of 90 tablets. Patient is aware to keep pill bottle and return to research staff as drug will be destroyed on site following return of unused medication: CORRECT Methimazole may be taken with or without food but it must be swallowed whole without crushing or chewing: Take two 10 mg tablets and ONE 5 mg tablets for a total dose of 25 mg, daily for a 28-day cycle. Patient is due to start Cycle 2 Day 1 Methimazole on: 07/14/2024 Correlative study lab (up to 3 days before starting drug) has been: Completed, 07/14/2024 Was any Methimazole dose changed, missed, reduced or held: No If Methimazole was held, it did NOT EXCEED 4 weeks: N/A Methimazole Returned Medication (C1): Patient returned 2 bottles (one 10 mg strength, one 5 mg strength) with 0 capsules remaining from C1 administration. Leftover drug will be destroyed on site ([facility]) following return of unused medication: CORRECT Was any Methimazole dose changed, missed, reduced or held in the Cycle 1: No Physician's Choice: Lomustine -Lomustine 110 mg/m2 on D1 of 42-day cycle for 200mg (per Dr. Enriquez) + Avastin : Patient's Dose: 200mg. Started: 06/28/2024 Labs reviewed and appropriate to start YES: YES Was any Lomustine dose changed, missed, reduced or held: No Schedule of drugs: Date Methimazole Cycle Lomustine Cycle 07/14 C2D1 07/15 C2D2 07/16 C2D3 07/17 C2D4 07/18 C2D5 07/19 C2D6 07/20 C2D7 07/21 C2D8 07/22 C2D9 07/23 C2D10 07/24 C2D11 07/25 C2D12 07/26 C2D13 07/27 C2D14 07/28 C2D15 07/29 C2D16 07/30 C2D17 07/31 C2D18 08/01 C2D19 08/02 C2D20 08/03 C2D21 08/04 C2D22 08/05 C2D23 08/06 C2D24 08/07 C2D25 08/08 C2D26 08/09 C2D27 08/10/2024 C2D28 Treatment plan: Completed treatments: Pre-Op Methimazole (Dose Level 2; 25 mg daily): 05/24/2024 to 06/15/2024 (including DAY of surgery) Surgical Resection by Dr. Evans: 05/27/2024 Post-Op Methimazole (Dose Level 2; 25 mg daily): 05/27/2024 (POD1) to 06/15/2024 Cycle 1 Methimazole (Dose Level 2; 25 mg daily): 06/16 to 07/13 Cycle 1 Lomustine 06/28/2024 (200 mg 1Q42D): Cycle 2 Methimazole (Dose Level 2; 25 mg daily): 07/14 to 08/10/2024 Ongoing AE Grade Scale Assessment - CTCAE v.5: Neuro, other (thought process changes) - Grade 1 - Baseline; Probable to study disease. Symptom is: Controlled with no intervention; Approximately started: 03/16/2023 to present; Baseline at screening 04/09/2023 Seizures (at risk for) - Grade 1 - Baseline; Unrelated to historical disorder/disease; Probable to study disease. 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 Symptom is: Controlled with lifestyle changes; Approximately started: 05/12/2024 to present; Baseline at screening 05/12/2024; upgraded to grade 2 on 05/26/2024; Current status: Ongoing - worsening. Stable. NEW AEs: Hypocalcemia - Grade 1 - Possible to Methimazole, Unlikely to study disease. Symptom is: Controlled; Start date: 06/16/2024; Action required for AE: NO; Intervention required: none; Current status/outcome: Ongoing - stable. RESOLVED 07/14/2024 Decreased AST - Grade 1 - unlikely to Methimazole, Unlikely to study disease. Symptom is: Controlled; Start date: 06/16/2024; Action required for AE: NO; Intervention required: none; Current status/outcome: Ongoing - stable. RESOLVED 07/14/2024 Hyponatremia - Grade 1 - unlikely to Methimazole, Unlikely to study disease. Symptom is: Controlled; Start date: 06/16/2024; Action required for AE: NO; Intervention required: none; Current status/outcome: Ongoing - stable. RESOLVED 07/14/2024 Elevated Alkaline Phosphatase - Grade 3 - Probable to Methimazole, unlikely to Lomustine, Unlikely to study disease. Symptom is: Controlled; Start date: 07/14/2024; Action required for AE: NO; Intervention required: none; Current status/outcome: Ongoing - stable Elevated AST - Grade 1 - Probable to Methimazole, unlikely to Lomustine, Unlikely to study disease. Symptom is: Controlled; Start date: 07/14/2024; Action required for AE: NO; Intervention required: none; Current status/outcome: Ongoing - stable Elevated ALT - Grade 2 - Probable to Methimazole, unlikely to Lomustine, Unlikely to study disease. Symptom is: Controlled; Start date: 07/14/2024; Action required for AE: NO; Intervention required: none; Current status/outcome: Ongoing - stable Decreased RBC - Grade 1 - Unlikely to Methimazole, possible to LomustineUnlikely to study disease. Symptom is: Controlled; Start date: 07/14/2024; Action required for AE: NO; Intervention required: none; Current status/outcome: Ongoing - stable RESOLVED AEs: none CHUCHO Review: End of CHUCHO period is today, 07/14/2024. Based on CTCAE above, does patient a protocol defined methimazole-related AE Dose-Limiting Toxicity (CHUCHO) that occurred from the first day of treatment to end of Cycle 1:YES Presence of Grade 4 neutropenia lasting > 7 days: NO Presence of Grade 3 or 4 neutropenia complicated by fever >38.0?C or infection: NO Presence of Grade 4 thrombocytopenia: NO Presence of Grade 3 thrombocytopenia complicated by hemorrhage: NO Presence of Grade 3 or 4 anemia: NO Presence of Grade >3 AST/ALT elevation [exceptions may be made for transient (e.g. lasting < 7 days)]: NO Presence of Grade 3 or 4 non-hematologic toxicity (excluding fatigue or anorexia lasting < 7 days, or Grade 3 nausea and/or vomiting that persists for < 2 days following appropriate supportive care): NO Patient does continue to meet eligibility to proceed with therapy per Dr. Enriquez: YES Discharged in apparent satisfactory condition. All questions answered. Patient agree to call with questions, concerns, change in symptoms. Patient agreed to call with any symptoms or side effects not mentioned. Patient agreed to plan. Patient has the contact information for treating physician, research staff and the 24-hour Ivaxjugmpp-Yy-Litv number ([phone] or ) for the Heme/Onc Fellow. Upcoming appointments: 08/11/2023 - Cycle 3 Day 1 Nadeen Beckett RN 07/14/2024 9:52 AM Chart routed to Dr. Enriquez (Primary): YES Allergies As of Date: 07/14/2024 (No Known Allergies) Date Reviewed: 07/14/2024 Reviewed by: Karla Pedroza MA - Fully Assessed Primary Visit Diagnosis:GBM (glioblastoma multiforme) (HCC) [C71.9] Prescriptions as of 09/02/2024 - lomustine (GLEOSTINE) 100 mg capsule Take one 8mg Zofran on an empty stomach in the evening. Wait ONE hour. Take TWO 100mg capsule(s) Lomustine by mouth for a total dose of 200mg. Take one 8 mg Zofran twenty-four hours later. Take on Day 1 of each 42 day cycle. - lacosamide (VIMPAT) 150 mg tab Take 1 tablet by mouth two times a day. - methIMAzole (TAPAZOLE) 5 mg tablet Take TWO 10 mg tablets and ONE 5 mg tablet for a total dose of 25 mg, daily. - methIMAzole (TAPAZOLE) 10 mg tablet Take TWO 10 mg tablets and ONE 5 mg tablet for a total dose of 25 mg, daily. - triamcinolone (KENALOG) 0.025 % cream Apply to affected area two times a day. - traZODone (DESYREL) 50 mg tablet Take 1 tablet by mouth daily at bedtime. - predniSONE (DELTASONE) 10 mg tablet Day #1 - 6 tablets PO then Day #2 - 5 tablets PO then Day #3 - 4 tablets PO then Day #4 - 3 tablets PO then Day #5 - 2 tablets PO then Day #6 - 1 tablet PO - ondansetron (ZOFRAN) 8 mg tablet Take one tablet by mouth on an empty stomach in the evening one hour prior to chemo. Then take one tablet 24 hours after chemo. May repeat dose every 8-12 hours if needed to prevent nausea - meclizine (ANTIVERT) 25 mg tab Take 1 tablet by mouth three times a day. - valACYclovir (VALTREX) 1 gram tablet Take 1,000 mg by mouth three times a day. - midazolam (NAYZILAM) 5 mg/spray (0.1 mL) nasal spray Use 1 [place] in the nose as needed for up to 10 days. May repeat dose in alternate nostril after 10 minutes based on response and tolerability. - sennosides (SENNA ORAL) Take by mouth. - DIETARY SUPPLEMENT,MISC COMB14 ORAL Take by mouth. Biomega 1000mg containing vitamin E and pure anchovy - medical supply, miscellaneous (MISCELLANEOUS MEDICAL SUPPLY MIS) Neurotrophin - acetaminophen (TYLENOL) 325 mg tablet 2 tablets by ORAL/FEEDING TUBE route every 4 hours as needed for pain. - pantoprazole DR (PROTONIX) 20 mg tablet Take 1 tablet by mouth DAILY (6 AM). Problem List As Of Date 07/14/2024 Noted Resolved Chest pain [R07.9] 04/25/2010 05/26/2024 Brain mass [G93.89] 03/17/2023 11/17/2023 Obesity, Class I, BMI 30-34.9 [E66.811] 03/17/2023 Brain compression (HCC) [G93.5] 03/20/2023 S/P brain surgery [Z98.890] 03/20/2023 11/17/2023 At risk for seizures [Z91.89] 03/20/2023 Cerebral edema (HCC) [G93.6] 03/20/2023 GBM (glioblastoma multiforme) (HCC) [C71.9] 04/07/2023 Syncope, unspecified syncope type [R55] 11/01/2023 11/03/2023 Examination of participant in clinical trial [Z*11/05/2023 11/17/2023 Forehead pain [R51.9] 11/05/2023 PONV (postoperative nausea and vomiting) [R11.2*05/26/2024 Acute post-operative pain [G89.18] 05/29/2024 Encounter Status:Closed by NADEEN BECKETT on 08/05/24 PROGRESS Observed: 07/13/2024 10:00 AM Status: COMPLETED Source: [facility] ID: [id number] Author: TOM NGUYEN, radiology asst Service: Radiology Author Type: Tracer Lathe Set Up Operator Type: Progress Notes Filed: 07/13/2024 09:20 Note Text: Radiology Service Progress Note PATIENT NAME: Angel Keating DATE OF SERVICE: July 13, 2024 TIME: 9:20 AM PATIENT IDENTITY VERIFICATION COMPLETED USING TWO (2) IDENTIFIERS: Name and Date of confirmed by patient verbally. FALL SCREENING: Has the patient had 2 falls in the last year or 1 fall with injury or currently using an Ambulatory Assistive Device (Walker, Cane, Wheelchair, Crutches, etc.)? No PATIENT GENDER DATA: Male PATIENT RELEVANT IMPLANT DATA REVIEWED: Yes PATIENT PRESENTS WITH AN IMPLANTABLE OR ATTACHED PLATE FINISHER: No RADIOLOGY DEPARTMENT: MR; Exam(s) Completed: Head: Routine Brain with Perfusion PERIPHERAL IV DATA: Port was accessed by RN SIGNED BY: JONATHAN Rockwell Tech July 13, 2024 9:20 AM PROGRESS Observed: 07/13/2024 10:00 AM Status: COMPLETED Source: [facility] HNO ID: [id number] Author: ZENIA SALEH RN Service: Radiology Author Type: Registered Nurse Type: Progress Notes Filed: 07/13/2024 09:05 Note Text: Radiology Service Progress Note DATE OF SERVICE: July 13, 2024 TIME: 9:05 AM PATIENT WEIGHT: LBS PATIENT IDENTITY VERIFICATION COMPLETED USING TWO (2) STANDARD IDENTIFIERS: Name and Date of confirmed by patient verbally. FALL SCREENING: Has the patient had 2 falls in the last year or 1 fall with injury or currently using an Ambulatory Assistive Device (Walker, Cane, Wheelchair, Crutches, etc.)? No PATIENT GENDER DATA: Male ALLERGIES: Reviewed and unchanged CONTRAST ALLERGY: No EXAM: MRI - CONTRAST TYPE: GROUP II IV SITE: Ambulatory: A power injectable Mediport was accessed in the Right chest with a 3/4 inch 20 gauge needle. Blood Return, Flushed easily with normal saline, Good Blood Return Post Injection, Flushed with 20 cc saline Needle Removed, and No Complications IV SITE APPEARANCE: Clean,Dry and Intact SIGNATURE: Zenia Saleh RN PATIENT NAME: Angel Keating DATE: July 13, 2024 TIME: 9:05 AM MRI BRAIN WO/W IVCON Observed: 9:47 AM Status: F Source: [facility] * * *Final Report* * * DATE OF EXAM: Jul 13 2024 9:47AM [facility] [id number] - MRI BRAIN WO/W IVCON / PROCEDURE REASON: GBM (glioblastoma multiforme) (HCC) * * * * Physician Interpretation * * * * EXAMINATION: MRI BRAIN WO/W IVCON HISTORY: GBM (glioblastoma multiforme) (HCC) - - - Primary neoplasm/metastasis/postop F/U - Brain/PATENT PARALEGAL neoplasm, assess treatment response - [id number] - - GBM (glioblastoma multiforme), WITH PERFUSION CASE 3322; [id number] - - TECHNIQUE: MRI brain intracranial mass protocol without and with contrast. Perfusion imaging was performed. M: [id number] MR Contrast: Dotarem Contrast Dose: 20 cc Route of Administration: Central IV COMPARISON: MRI brain 05/28/2024. 05/26/2024. 04/12/2024. RESULT: Acute Change: No evidence of an acute intracranial process. Hemorrhage: No evidence of prior parenchymal hemorrhage on the susceptibility weighted sequences. Mass Lesion/ Mass Effect: Again demonstrated prior operative changes related to left craniotomy for left temporal lobe mass resection with interval development of a prominent left convexity extra-axial collection which appears contiguous with fluid collection surrounding the left temporal craniotomy flap which extends to the extra calvarial soft tissues of the inferotemporal fossa. This measures up to 1.2 cm in greatest thickness (series 13, image 14) with extra calvarial component measuring up to 1.0 cm in thickness (series 13, image 20) without areas of abnormal enhancement. Few scattered areas of susceptibility artifact are present underneath the craniotomy defect and within this postoperative T2 hyperintense collection which may reflect prior postoperative changes although there collection is mostly composed of CSF attenuating fluid. Ill-defined areas of mildly nodular enhancement along the mesial left temporal lobe anteriorly (series 14, image 99) questionably measuring up to 0.4 x 1.1 cm in greatest transaxial dimension not well appreciated on coronal imaging may represent residual areas of enhancement from previously resected mass with small amount of minimally nodular enhancement along the temporal resection cavity (series 14, image 7). Overall, areas of enhancement appears slightly increased in the interim. Perfusion imaging demonstrates no definite perfusion abnormality or elevated CBV within the constraints of susceptibility and small area of enhancement which may be beyond the resolution of perfusion. T2/FLAIR hyperintensity surrounding the resection cavity margins likely reflects a component of gliosis. Small focus of enhancement is seen within the left dorsal basal ganglia and internal capsule (series 14, image 87 measuring up to 0.5 x 0.3 x 0.2 cm (series 14, image 90 and series 13, image 18) with a lentiform appearance, could represent a small vascular structure although no significant susceptibility is demonstrated. Mild localized mass effect secondary to left greater than right T2 hyperintense hygromatous collection with approximately 4 mm of midline shift to the right. Mild sulcal effacement along the left cerebral sulci. Perfusion: MR perfusion study was performed of the entire brain following bolus intravenous administration of gadolinium utilizing dynamic susceptibility-weighted contrast-enhanced acquisition. Noncontributory Chronic Change: Scattered punctate foci of increased T2 and FLAIR signal are noted in the supratentorial white matter which is a nonspecific finding, but likely represents minimal chronic microvascular ischemia. Parenchyma: No significant parenchymal volume loss for age. Ventricles: Normal caliber and morphology. Skull Base: Hypothalamic and pituitary region are grossly normal. Craniocervical junction is normal. No significant marrow replacement process. Vasculature: Major intracranial arteries and dural venous sinuses demonstrate typical flow voids, suggesting patency by spin echo criteria. Other: The paranasal sinuses and mastoid air cells are clear. The orbits and extracranial soft tissues are unremarkable. IMPRESSION: Similar to very slightly increased enhancement marginating the anterior mesial left temporal lobe as described, possibly postoperative or residual enhancing mass. No definite perfusion abnormality. Small focus of enhancement within the dorsal left basal ganglia, questionable for residual/recurrent process. Continued follow-up is recommended. Stable postoperative changes with enlarging left convexity CSF intensity collection measuring up to 1.2 cm causing mass effect and approximately 4 mm of midline shift to the right. Additional CSF intensity fluid surrounding the craniotomy flap involving the extra calvarial soft tissues as detailed. Call Worker Person: [facility] Transcribe Date/Time: Jul 13 2024 11:49A Dictated by : ADAM THORNTON MD This examination was interpreted and the report reviewed and electronically signed by: ADAM THORNTON MD on Jul 13 2024 12:05PM EST [id number] Observed: 07/13/2024 12:00 AM Status: COMPLETED Source: [facility] Telephone (PSYCA2) ANGEL KEATING ([id number]) 1970 M Date Time Provider Department 07/13/24 JACLYN CAAL PSYCA2 During your visit today, we recorded the following information about you: Jaclyn Caal LSW 07/13/2024 4:10 PM Signed SOCIAL WORK FOLLOW UP NOTE: [facility] Date of service: 07/13/2024 SW received call from pt sharing that he lost his contact cards and information and is in need of assistance with scheduling a [employer] uber ride for his appointments tomorrow 07/14/2024. 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 SW also requested for the ride to be a flex ride so pt can request an uber to get back home when he is ready. SW shared this information with pt who also requested if he can receive contact cards for his [facility] Team when he comes to his appointment. SW will assist with giving pt the needed contact cards at his appointment with Dr. Fraire. SW will continue to provide ongoing assessment and support as needed. JULIO Garcia Allergies As of Date: 07/13/2024 (No Known Allergies) Date Reviewed: 07/13/2024 Reviewed by: Zenia Saleh, VAZQUEZ - Fully Assessed Reason for Visit: Social Work Services [507] Prescriptions as of 07/13/2024 - acetaZOLAMIDE (DIAMOX) 250 mg tablet Take 1 tablet by mouth two times a day for 14 days. - ondansetron (ZOFRAN) 8 mg tablet Take one tablet by mouth on an empty stomach in the evening one hour prior to chemo. Then take one tablet 24 hours after chemo. May repeat dose every 8-12 hours if needed to prevent nausea - methIMAzole (TAPAZOLE) 5 mg tablet Take TWO 10 mg tablets and ONE 5 mg tablet for a total dose of 25 mg, daily. - methIMAzole (TAPAZOLE) 10 mg tablet Take TWO 10 mg tablets and ONE 5 mg tablet for a total dose of 25 mg, daily. - lacosamide (VIMPAT) 150 mg tab Take 1 tablet by mouth two times a day. - lomustine (GLEOSTINE) 100 mg capsule Take one 8 mg Zofran on an empty stomach in the evening. Wait ONE hour. Take TWO 100 mg capsule(s) Lomustine by mouth for a total dose of 200 mg. Take one 8 mg Zofran twenty-four hours later. Take on Day 1 of each 42 day cycle. - iv contrast (will be provided with radiology test) MRI Brain Inject, intravenously, once for 1 dose.No IV access, insert saline lock prior to beginning of sedation, infusion, injection of imaging exam.Discontinue saline lock post exam. If Pt. has a central line or IVAD, may access for administration according to line specific nursing protocol.Once exam is complete flush line and de-access according to line specific nursing protocol in the MR contrast administration guidelines link - iv contrast (will be provided with radiology test) MRI Brain Inject, intravenously, once for 1 dose.No IV access, insert saline lock prior to beginning of sedation, infusion, injection of imaging exam.Discontinue saline lock post exam. If Pt. has a central line or IVAD, may access for administration according to line specific nursing protocol.Once exam is complete flush line and de-access according to line specific nursing protocol in the MR contrast administration guidelines link - meclizine (ANTIVERT) 25 mg tab Take 1 tablet by mouth three times a day. - valACYclovir (VALTREX) 1 gram tablet Take 1,000 mg by mouth three times a day. - midazolam (NAYZILAM) 5 mg/spray (0.1 mL) nasal spray Use 1 [place] in the nose as needed for up to 10 days. May repeat dose in alternate nostril after 10 minutes based on response and tolerability. - sennosides (SENNA ORAL) Take by mouth. - DIETARY SUPPLEMENT,MISC COMB14 ORAL Take by mouth. Biomega 1000mg containing vitamin E and pure anchovy - medical supply, miscellaneous (MISCELLANEOUS MEDICAL SUPPLY MIS) Neurotrophin - acetaminophen (TYLENOL) 325 mg tablet 2 tablets by ORAL/FEEDING TUBE route every 4 hours as needed for pain. - pantoprazole DR (PROTONIX) 20 mg tablet Take 1 tablet by mouth DAILY (6 AM). Problem List As Of Date 07/13/2024 Noted Resolved Chest pain [R07.9] 04/25/2010 05/26/2024 Brain mass [G93.89] 03/17/2023 11/17/2023 Obesity, Class I, BMI 30-34.9 [E66.811] 03/17/2023 Brain compression (HCC) [G93.5] 03/20/2023 S/P brain surgery [Z98.890] 03/20/2023 11/17/2023 At risk for seizures [Z91.89] 03/20/2023 Cerebral edema (HCC) [G93.6] 03/20/2023 GBM (glioblastoma multiforme) (HCC) [C71.9] 04/07/2023 Syncope, unspecified syncope type [R55] 11/01/2023 11/03/2023 Examination of participant in clinical trial [Z*11/05/2023 11/17/2023 Forehead pain [R51.9] 11/05/2023 PONV (postoperative nausea and vomiting) [R11.2*05/26/2024 Acute post-operative pain [G89.18] 05/29/2024 Encounter Status:Closed by JACLYN CAAL on 07/13/24 PROGRESS Observed: 06/23/2024 2:13 PM Status: COMPLETED Source: [facility] HNO ID: [id number] Author: JOSE EVANS MD Service: ? Author Type: Physician Type: Progress Notes Filed: 06/23/2024 15:38 Note Text: I saw Angel today with increased size of pseudomeningocele. Although it was not tense but had increased from last time. We drained 26cc and wrapped the head. Also started diamox for 7-10 days. I dianetic counselor them that they shouldn't be worried about it as long as the wound is not leaking. He complained from some headaches that I'm not sure it was related to the collection. I answered all of their questions. Shall they call us if any issues. Jose Evans MD June 23, 2024 3:37 PM CNOV Observed: 06/23/2024 2:00 PM Status: COMPLETED Source: [facility] Office Visit (NSCAMN) ANGEL KEATING ([id number]) 1970 M Date Time Provider Department 06/23/24 2:00 PM JOSE EVANS During your visit today, we recorded the following information about you: Jose Evans MD 06/23/2024 3:38 PM Signed I saw Angel today with increased size of pseudomeningocele. Although it was not tense but had increased from last time. We drained 26cc and wrapped the head. Also started diamox for 7-10 days. I dianetic counselor them that they shouldn't be worried about it as long as the wound is not leaking. He complained from some headaches that I'm not sure it was related to the collection. I answered all of their questions. Shall they call us if any issues. Jose Evans MD June 23, 2024 3:37 PM Krala Pedroza MA 06/23/2024 2:55 PM Signed Assessment interrupted by medical provider, unable to complete nursing assessment. Karla Pedroza MA Allergies As of Date: 06/23/2024 (No Known Allergies) Date Reviewed: 06/16/2024 Reviewed by: Karla Pedroza MA - Fully Assessed Primary Visit Diagnosis:GBM (glioblastoma multiforme) (HCC) [C71.9] Prescriptions as of 06/23/2024 - methIMAzole (TAPAZOLE) 5 mg tablet Take TWO 10 mg tablets and ONE 5 mg tablet for a total dose of 25 mg, daily. - methIMAzole (TAPAZOLE) 10 mg tablet Take TWO 10 mg tablets and ONE 5 mg tablet for a total dose of 25 mg, daily. - lacosamide (VIMPAT) 150 mg tab Take 1 tablet by mouth two times a day. - lomustine (GLEOSTINE) 100 mg capsule Take one 8 mg Zofran on an empty stomach in the evening. Wait ONE hour. Take TWO 100 mg capsule(s) by mouth for a total dose of 200 mg. Take one 8 mg Zofran twenty-four hours later. Take on Day 1 of each 42 day cycle. - iv contrast (will be provided with radiology test) MRI Brain Inject, intravenously, once for 1 dose.No IV access, insert saline lock prior to beginning of sedation, infusion, injection of imaging exam.Discontinue saline lock post exam. If Pt. has a central line or IVAD, may access for administration according to line specific nursing protocol.Once exam is complete flush line and de-access according to line specific nursing protocol in the MR contrast administration guidelines link - dexAMETHasone (DECADRON) 2 mg tablet Take 4 tablets by mouth two times a day with meals for 4 days, THEN 3 tablets two times a day with meals for 4 days, THEN 2 tablets two times a day with meals for 4 days, THEN 1 tablet two times a day with meals. - iv contrast (will be provided with radiology test) MRI Brain Inject, intravenously, once for 1 dose.No IV access, insert saline lock prior to beginning of sedation, infusion, injection of imaging exam.Discontinue saline lock post exam. If Pt. has a central line or IVAD, may access for administration according to line specific nursing protocol.Once exam is complete flush line and de-access according to line specific nursing protocol in the MR contrast administration guidelines link - ondansetron (ZOFRAN) 8 mg tablet Take one tablet by mouth one hour prior to chemo. May repeat dose every 8-12 hours if needed to prevent nausea - meclizine (ANTIVERT) 25 mg tab Take 1 tablet by mouth three times a day. - valACYclovir (VALTREX) 1 gram tablet Take 1,000 mg by mouth three times a day. - midazolam (NAYZILAM) 5 mg/spray (0.1 mL) nasal spray Use 1 [place] in the nose as needed for up to 10 days. May repeat dose in alternate nostril after 10 minutes based on response and tolerability. - sennosides (SENNA ORAL) Take by mouth. - DIETARY SUPPLEMENT,MISC COMB14 ORAL Take by mouth. Biomega 1000mg containing vitamin E and pure anchovy - medical supply, miscellaneous (MISCELLANEOUS MEDICAL SUPPLY MISC) Neurotrophin - acetaminophen (TYLENOL) 325 mg tablet 2 tablets by ORAL/FEEDING TUBE route every 4 hours as needed for pain. - pantoprazole DR (PROTONIX) 20 mg tablet Take 1 tablet by mouth DAILY (6 AM). Problem List As Of Date 06/23/2024 Noted Resolved Chest pain [R07.9] 04/25/2010 05/26/2024 Brain mass [G93.89] 03/17/2023 11/17/2023 Obesity, Class I, BMI 30-34.9 [E66.811] 03/17/2023 Brain compression (HCC) [G93.5] 03/20/2023 S/P brain surgery [Z98.890] 03/20/2023 11/17/2023 At risk for seizures [Z91.89] 03/20/2023 Cerebral edema (HCC) [G93.6] 03/20/2023 GBM (glioblastoma multiforme) (HCC) [C71.9] 04/07/2023 Syncope, unspecified syncope type [R55] 11/01/2023 11/03/2023 Examination of participant in clinical trial [Z*11/05/2023 11/17/2023 Forehead pain [R51.9] 11/05/2023 PONV (postoperative nausea and vomiting) [R11.2*05/26/2024 Acute post-operative pain [G89.18] 05/29/2024 Visit Notes: >> Karla Pedroza MA [facility] Jun 23, 2024 2:54 PM Status: Signed Assessment interrupted by medical provider, unable to complete nursing assessment. Karla Pedroza MA Encounter Status:Closed by JOSE EVANS on 06/23/24 PROGRESS Observed: 06/21/2024 1:11 PM Status: COMPLETED Source: [facility] HNO ID: [id number] Author: ESHA MARROQUIN [facility] Service: ? Author Type: ? Type: Progress Notes Filed: 06/24/2024 08:23 Note Text: [facility] Refill Assessment Medication(s): Gleostine- GBM-MGMT promoter not hyper methylated. MRI of the brain from Apr 12, 2024, shows increased enhancement, with increased CBV. -Continue CASE 3322 clinical trial with methimazole + chemo. Patient signed consent. -Continue methimazole per trial. -Lomustine 110 mg/M2 , dose capped 200 mg day cycle [id number] nausea: -Use Zofran, prior/after chemo and as needed increased size of pseudomeningocele started diamox for 7-10 days Next clinic visit scheduled 07/14. ALLERGIES No Known Allergies Patient's current medication list and adherence status to current therapy were reviewed by [facility]acy clinical pharmacist to identify any new drug interactions or non-compliance to therapy. Therapy continues to be appropriate for disease, patient response, and medical condition. Verification of therapeutic benefit and effectiveness with current therapy was completed. Adverse events, barriers in adherence, and side effects were assessed and addressed if applicable. Will proceed with refill with no changes in therapy - patient progressing towards achieving therapeutic goals based on medication-specific laboratory parameters, disease state markers and outcomes. Office/provider notes have been reviewed prior to dispensing the medication. Esha Marroquin [facility] Clinical Pharmacist Oncology [facility] P F Pool: P [facility] Pool #: [id number] Tracer Lathe Set Up Operator Assessment Patient confirmed: Yes Med/dose confirmed: Yes Supplies needed: No supplies needed Missed doses: No Estimated days supply on hand: 0 Copay amount: 30 Copay form of payment: Credit card on file Payment confirmed: Yes Delivery method: FedEx Signature required: Waived on patient request Delivery address: [address] [place] [address] [place] [address] Delivery date: 06/25/24 Questions or concerns for the pharmacist?: No Did you have any side effects believed to be related to this medication, that resulted in hospitalization?: No Current Outpatient Medications on File Prior to Visit Medication Sig methIMAzole (TAPAZOLE) 5 mg tablet Take TWO 10 mg tablets and ONE 5 mg tablet for a total dose of 25 mg, daily. methIMAzole (TAPAZOLE) 10 mg tablet Take TWO 10 mg tablets and ONE 5 mg tablet for a total dose of 25 mg, daily. lacosamide (VIMPAT) 150 mg tab Take 1 tablet by mouth two times a day. lomustine (GLEOSTINE) 100 mg capsule Take one 8 mg Zofran on an empty stomach in the evening. Wait ONE hour. Take TWO 100 mg capsule(s) by mouth for a total dose of 200 mg. Take one 8 mg Zofran twenty-four hours later. Take on Day 1 of each 42 day cycle. iv contrast (will be provided with radiology test) MRI Brain Inject, intravenously, once for 1 dose.No IV access, insert saline lock prior to beginning of sedation, infusion, injection of imaging exam.Discontinue saline lock post exam. If Pt. has a central line or IVAD, may access for administration according to line specific nursing protocol.Once exam is complete flush line and de-access according to line specific nursing protocol in the MR contrast administration guidelines link dexAMETHasone (DECADRON) 2 mg tablet Take 4 tablets by mouth two times a day with meals for 4 days, THEN 3 tablets two times a day with meals for 4 days, THEN 2 tablets two times a day with meals for 4 days, THEN 1 tablet two times a day with meals. iv contrast (will be provided with radiology test) MRI Brain Inject, intravenously, once for 1 dose.No IV access, insert saline lock prior to beginning of sedation, infusion, injection of imaging exam.Discontinue saline lock post exam. If Pt. has a central line or IVAD, may access for administration according to line specific nursing protocol.Once exam is complete flush line and de-access according to line specific nursing protocol in the MR contrast administration guidelines link ondansetron (ZOFRAN) 8 mg tablet Take one tablet by mouth one hour prior to chemo. May repeat dose every 8-12 hours if needed to prevent nausea meclizine (ANTIVERT) 25 mg tab Take 1 tablet by mouth three times a day. valACYclovir (VALTREX) 1 gram tablet Take 1,000 mg by mouth three times a day. midazolam (NAYZILAM) 5 mg/spray (0.1 mL) nasal spray Use 1 [place] in the nose as needed for up to 10 days. May repeat dose in alternate nostril after 10 minutes based on response and tolerability. sennosides (SENNA ORAL) Take by mouth. DIETARY SUPPLEMENT,MISC COMB14 ORAL Take by mouth. Biomega 1000mg containing vitamin E and pure anchovy medical supply, miscellaneous (MISCELLANEOUS MEDICAL SUPPLY MIS) Neurotrophin acetaminophen (TYLENOL) 325 mg tablet 2 tablets by ORAL/FEEDING TUBE route every 4 hours as needed for pain. pantoprazole DR (PROTONIX) 20 mg tablet Take 1 tablet by mouth DAILY (6 AM). No current facility-administered medications on file prior to visit. [facility] CLINICAL ASSESSMENT - HEMATOLOGY ONCOLOGY V6: Ivent complete: No Assessment to use: Refill Lab monitoring inclusive of CBC, Chem-7, and other labs as pertinent for therapy: Yes Chemo cycle timing assessment: Yes Assessment of injection issues: N/A Current medication list (including drug interaction assessment): Yes Experience of adverse reactions to the medication: Yes Date of influenza vaccination reminder: 02/25/2024 Date of most recent vaccination assessment: 02/25/2024 Treatment Plan Information: Diagnosis: GBM Previous treatment(s): Gross total resection [03/19/2023] , GCAR AGILE, randomized to [id number] IV twice weekly arm + Standard concurrent chemotherapy and radiation ,Adjuvant temozolomide PO D1-5 q 28 days Starting Dose/Titration: - 200mg as a single dose every 6 weeks - Dosing is 90 mg/m2 (200mg is max dose) Administration: - Administering on an empty stomach may reduce the incidence of nausea and vomiting. - Do not break capsules. If contact with skin occurs, immediately wash area (thoroughly). Avoid exposure to broken capsules. Supportive Care: - Associated with moderate-highly emetogenic risk; anti-emetics are recommended to prevent nauea and vomiting Side Effects/Warnings: include but are not limited to bone marrow suppression, hepatotoxicity, pulmonary toxicity, renal toxicity, secondary malignancies (MDS/AML) Monitoring: - CBC with differential and platelet count (weekly for at least 6 weeks after a dose) - Hepatic and renal function tests (periodic) - Pulmonary function tests (baseline and periodic) Drug-Drug Interactions: none identrified per Lexicomp 02/25/24 Baseline: - CrCl 104.4 ml/min Est. Tx Plan Start Date: No information available Estimated Start Date Info: Per Dr. Enriquez's discretion Est. Estimated Treatment Duration: Max 6 cycles Pat Rodriguez PROGRESS Observed: 06/16/2024 2:03 PM Status: COMPLETED Source: [facility] HNO ID: [id number] Author: HEIDI ARRIAZA RN Service: ? Author Type: Registered Nurse Type: Progress Notes Filed: 06/16/2024 14:07 Note Text: Patient is here today by himself for surgical incision wound check. Surgery: Left Craniotomy on May 27 for tumor resection with Dr Evans Patient is recovering well postoperatively. No neurological symptoms or complaints compared to preoperative baseline . Re-discussed postoperative activity and associated restrictions. Incision is well approximated and healing. There are no signs or symptoms of infection. There is some fluid under the skin noted around the incisional area. There is no drainage noted from the incision. Dr. Evans assessed the incisional area and per his recommendations the incision was cleansed with alcohol and the wilfredo were removed without incident. Reviewed wound care with patient with good understanding. Patient aware to phone office with any questions or concerns. Heidi Arriaza [employer]ing Supervisor [phone]. PROGRESS Observed: 06/16/2024 12:26 PM Status: COMPLETED Source: [facility] HNO ID: [id number] Author: PATRICIA ENRIQUEZ MD Service: ? Author Type: Physician Type: Progress Notes Filed: 06/20/2024 05:59 Note Text: [facility] Follow up Clinic visit [facility] Team: -Jose Evans MD, Neurosurgery -SAV Rodriguez, Radiation Oncology -Patricia Enriquez MD, Neuro-Oncology DIAGNOSIS: MGMT unmethylated Glioblastoma. 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 He initially presented with anxiety-attack like episodes going back to January 2023 as well as a fall, without loss of consciousness but +trauma to head around 02/27/2023. On 03/16/2023, he presented to [facility] ED with word finding difficulty, report of one-time fever of 101 in February, anxiety, increased thirst and urination and was found to have a L temporal mass with midline subfalcine shift concerning for high grade glioma. He was afebrile with normal glucose level and electrolytes. He underwent gross total resection by Dr. Evans on 03/19/2023, revealing an MGMT unmethylated glioblastoma, WHO Grade 4. He was discharged on keppra 750mg BID and dexamethasone taper. He established care with Dr. Enriquez and given paroxysmal episodes of anxiety, he was concerned about temporal lobe epilepsy and advised lifelong AED to reduce seizure risk. The patient was exhibiting some fatigue and dullness, so a cross taper from keppra to vimpat, with goal of vimpat 150mg BID. The patient expressed interest in clinical trials and enrolled onto [facility]. He was randomized to the HD0382 arm (cyclic peptide modulating tumor microenvironment). TREATMENT HISTORY Gross total resection [03/19/2023] [facility] Dr. Evans MGMT unmethylated Glioblastoma. L temporal GCAR AGILE, randomized to [id number] IV twice weekly arm + Standard concurrent chemotherapy and radiation (04/20- 05/29/2023) [facility] Dr. Joyce and Dr. Enriquez Adjuvant temozolomide PO D1-5 q 28 days C1 07/01/23, will start 07/03 150mg/m2 C2 07/27/23 C3 08/31/23 C4 09/21/23 C5 10/26/23 C6 11/23/23 C7 12/28/23 STOP ADJ TMZ as the clinical; trial calls for up to 6 cycles. For some reason the patient had an extra cycle of Adj TMZ. Adjuvant [id number] during Maintenance: Cycle 7 Week 1 - infusions on 12/14/2023 (D1) and 12/17/2023 (D4) Cycle 7 Week 2 - infusions on 12/21/2023 (D8) and 12/24/2023 (D11) Cycle 7 Week 3 - infusions on 12/28/2023 (D15) and 12/31/2023 (D18) Cycle 7 Week 4 - infusions on 01/05/2024 (D22) and 01/08/2024 (D25) Cycle 8 Week 5 - infusions on 01/11/2024 and 01/14/2024 02/08/2024: MRI shows progression 02/08/24 B[facility] Referrals to se Dr. Evans for possible surgery. If surgery offered, he can be enrolled in CASE 3322 clinical trial with methimazole + chemo. 02/18/24: Dr Evans recommended NO surgery. 02/26/24 Lomustine 90mg/m2 C#1 02/25-04/08/24 04/12/24 Tumor progression, increased CBV 04/14/2024 BTB Referrals to se Dr. Evans for possible surgery. The patient is also eligible, for CASE 3322 clinical trial with methimazole + chemo. 04/28/2024 Jose Evans MD since the patient, and recommended surgery. 04/28/2024 clinical trials team, saw the patient, the patient is eligible, for for CASE 3322 clinical trial with methimazole + chemo. Patient signed consent. Treatment plan: Pre-operative treatment Phase -Methimazole - Pre-Op period: 05/24/2024 to 05/27/2024 (last dose is DAY of surgery) -Dose level 2 (25 mg daily) Surgical resection 05/27/[address] 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 C1D1 (10-28 days after surgery) -Scheduled for 06/16/2024 (20 days post op) -Methimazole - Post-Op period: 05/27/2024- TBD -Dose level 2 (25 mg daily 06/16/2024 In person visit The patient is unaccompanied He still with some language dysfunction but not worsening. Has no headaches or seizures. No other neurological issues. Her is here for post op evaluation, and define continuation on the clinical trial, and initiate clinician's choice of systemic therapy. Last Chemo: see above Current Steroids dose: N/A Current AED Dose: lacosamide (VIMPAT) 150 mg tab Take 1 tablet by mouth two times a day. 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 Evans; path = GBM ORTHOPEDICS SURGERY HX 1997 knee surgery SHX CRANIOTOMY Left 03/19/2023 Family History: FAMILY HISTORY Problem Relation Age of Onset Diabetes Father Coronary Artery Disease Father Stroke Father Breast Cancer Mother None Sister Anesthesia Problems No Family History Social History Tobacco Use Smoking status: Former Current packs/day: 1.00 Average packs/day: 1 pack/day for 4.0 years (4.0 ttl pk-yrs) Types: Cigarettes Smokeless tobacco: Never Vaping Use Vaping status: Never Used Substance Use Topics Alcohol use: Not Currently Comment: three beers a month - per pt [id number] Allergies: Patient has no known allergies. Current Outpatient Medications Medication Sig lacosamide (VIMPAT) 150 mg tab Take 1 tablet by mouth two times a day. iv contrast (will be provided with radiology test) MRI Brain Inject, intravenously, once for 1 dose.No IV access, insert saline lock prior to beginning of sedation, infusion, injection of imaging exam.Discontinue saline lock post exam. If Pt. has a central line or IVAD, may access for administration according to line specific nursing protocol.Once exam is complete flush line and de-access according to line specific nursing protocol in the MR contrast administration guidelines link iv contrast (will be provided with radiology test) MRI Brain Inject, intravenously, once for 1 dose.No IV access, insert saline lock prior to beginning of sedation, infusion, injection of imaging exam.Discontinue saline lock post exam. If Pt. has a central line or IVAD, may access for administration according to line specific nursing protocol.Once exam is complete flush line and de-access according to line specific nursing protocol in the MR contrast administration guidelines link meclizine (ANTIVERT) 25 mg tab Take 1 tablet by mouth three times a day. valACYclovir (VALTREX) 1 gram tablet Take 1,000 mg by mouth three times a day. ondansetron (ZOFRAN) 8 mg tablet Take one hour prior to temozolomide prescription then every 8 hours as needed for nausea. temozolomide (TEMODAR) 180 mg capsule Fast for one hour after taking Zofran and then take ONE 180 mg capsule, plus ONE 140 mg and TWO 5 mg capsules to total 330 mg. Then, fast for one hour after taking. Take on days 1-5 of your 28 day cycle. Temozolomide 140 mg capsule Fast for one hour after taking Zofran and then take ONE 180 mg capsule, plus ONE 140 mg and TWO 5 mg capsules to total 330 mg. Then, fast for one hour after taking. Take on days 1-5 of your 28 day cycle. temozolomide (TEMODAR) 5 mg capsule Fast for one hour after taking Zofran and then take ONE 180 mg capsule, plus ONE 140 mg and TWO 5 mg capsules to total 330 mg. Then, fast for one hour after taking. Take on days 1-5 of your 28 day cycle. ondansetron (ZOFRAN) 8 mg tablet Take 1 tablet (8 mg) by mouth one hour before taking temozolomide dosing. Take on an empty stomach (Patient taking differently: Take 1 tablet (8 mg) by mouth one hour before taking temozolomide dosing. Take on an empty stomach) sennosides (SENNA ORAL) Take by mouth. DIETARY SUPPLEMENT,[facility] COMB14 ORAL Take by mouth. Biomega 1000mg containing vitamin E and pure anchovy medical supply, miscellaneous (KvantumCELLANEOUS MEDICAL SUPPLY [facility]) Neurotrophin acetaminophen (TYLENOL) 325 mg tablet 2 tablets by ORAL/FEEDING TUBE route every 4 hours as needed for pain. pantoprazole DR (PROTONIX) 20 mg tablet Take 1 tablet by mouth DAILY (6 AM). midazolam (NAYZILAM) 5 mg/spray (0.1 mL) nasal spray Use 1 [place] in the nose as needed for up to 10 days. May repeat dose in alternate nostril after 10 minutes based on response and tolerability. No current facility-administered medications for this visit. Review of systems: Constitutional: No recent fever or weight loss. Eyes: No history of glaucoma or cataracts. ENMT: No recent ear infection, nasal congestion, mouth sores or sore throat. CV: No history of chest pain, palpitations or leg swelling. Respiratory: No history of SOB, asthma or recent cough. Gastrointestinal: No history of nausea, vomiting, dysphagia or abdominal pain. Genitourinary: No history of hematuria or dysuria. Musculoskeletal: No complaint of arthritis, unstable gait or arm/leg weakness. Psychiatric: No history of hallucinations or depression or anxiety. ROS Neurological: No complaint of headache. No complaint of tinnitus. No complaint of decreased hearing. No complaint of diplopia. No complaints of decreased visual acuity. No complaint of arm/leg numbness. No problem with limb coordination. No complaint of syncope, seizures or disorientation. Objective Physical Exam: BP 126/79 Pulse 91 Temp 36.9 ?C (98.4 ?F) (Oral) Resp 18 Ht 177.4 cm (5' 9.84) Wt 99.8 kg (220 lb 0.3 oz) SpO2 97% BMI 31.71 kg/m? GENERAL EXAM: General appearance: Well appearing, alert, in no acute distress Skin: Skin color, texture, turgor normal Oropharynx: No thrush noted. Lungs: Lungs clear to auscultation. No wheezing, rhonchi, rales Heart: RRR without murmur, gallop, or rubs. No ectopy Abdomen: Normal abdominal exam, Abdomen soft, non-tender. Bowel sounds normal. Extremities: No deformities, skin discoloration, clubbing or cyanosis. Good capillary refill, no edema to BLE. Harmony's sign negative. No pain to palpation. NEUROLOGICAL EXAM: Higher integrative functions: Oriented to person, place AND time. Attention Span and Concentration: Good. Language: Accurate naming of objects. Good comprehension. Fund of Knowledge: Good. 2nd CN: Full visual land. 3rd,4th,6th CN: Pupils equal, round, react to light, full extraocular movements. 5th CN: No decrease in facial sensation 7th CN: Facial muscles symmetric and strong. 8th CN: Hears finger rub well bilaterally. 9th CN: Gag reflex not tested 10th CN: Spontaneous palate movement, full and symmetric. 11th CN: Full strength in shoulder shrug. 12th CN: Tongue protrusion full and midline. Sensation: No decrease in sensation in upper or lower limbs to touch. Musculoskeletal: Gait steady. Tandem walk normal. Romberg negative. Motor: 5/5 RUE/RLE; 5/5 LUE/LLENormal muscle tone without atrophy in all limbs. Coordination: Rapid alternating movements LUE intact; RUE intact Reflexes: 1-2+ ALL limbs. Plantar response down going. Karnofsky performance status: 80 - Normal activity with effort, some signs or symptoms of disease. ECOG performance status: 1 - Restricted in physically strenuous activity but ambulatory and able to carry out work of a light or sedentary nature, e.g., light house work or office work. 05/18/2023 PHQ 2 and 9 Total Scores PHQ-2 Score 1 PHQ-9 Score 8 Labs: Latest Ref Rng AND Units 05/28/2024 05/29/2024 06/16/2024 CBC WBC 3.70 - 11.00 k/uL 13.40 13.95 9.46 RBC 4.20 - 6.00 m/uL 4.10 3.79 4.25 Hemoglobin 13.0 - 17.0 g/dL 13.1 12.2 13.9 Hematocrit 39.0 - 51.0 % 37.8 35.3 39.8 MCV 80.0 - 100.0 fL 92.2 93.1 93.6 MCH 26.0 - 34.0 pg 32.0 32.2 32.7 MCHC 30.5 - 36.0 g/dL 34.7 34.6 34.9 RDW-CV 11.5 - 15.0 % 13.2 13.5 14.5 Platelet Count 150 - 400 k/uL 233 206 171 MPV 9.0 - 12.7 fL 9.1 9.1 8.9 Baso% % 0.1 0.1 0.1 Abs Neut (ANC) 1.45 - 7.50 k/uL 11.93 12.88 7.97 Abs Lymph 1.00 - 4.00 k/uL 0.76 0.55 0.68 Abs Branch <0.87 k/uL 0.65 0.47 0.62 Abs Eosin <0.46 k/uL <0.03 <0.03 0.10 Abs Baso <0.11 k/uL <0.03 <0.03 <0.03 NRBC /100 WBC 0.0 0.0 0.0 Latest Ref Rng AND Units 05/28/2024 05/29/2024 06/16/2024 CMP Sodium 136 - 144 mmol/L 139 139 135 Potassium 3.7 - 5.1 mmol/L 4.2 4.4 4.0 Chloride 98 - 107 mmol/L 105 108 104 CO2 22 - 30 mmol/L 23 23 21 Glucose 74 - 99 mg/dL 143 147 97 BUN 9 - 24 mg/dL 17 18 23 Creatinine 0.73 - 1.22 mg/dL 1.17 1.07 1.05 EGFR >=60 mL/min/1.73m? 74 82 84 Protein, Total 6.3 - 8.0 g/dL 5.9 Albumin 3.9 - 4.9 g/dL 3.4 Calcium 8.5 - 10.2 mg/dL 8.8 8.5 8.2 Bilirubin, Total 0.2 - 1.3 mg/dL 0.6 AST 14 - 40 U/L 11 ALT 10 - 54 U/L 21 Alkaline Phosphatase 38 - 113 U/L 64 Final Pathology: SURGICAL PATHOLOGY: [id number] Order: [id number] Collected 03/19/2023 10:24 AM Status: Edited Result - FINAL Visible to patient: Yes (not seen) Dx: Brain tumor (HCC) 0 Result Notes Component FINAL DIAGNOSIS A, B. Brain, left temporal mass, biopsy and resection: - Morphologically consistent with high grade glioma. See comment. Diagnosis Comment CARLOS stained sections reveal a hypercellular infiltrating glioma with moderate to marked nuclear pleomorphism and increased mitoses (upto 4 per 10 high per field). Pseudopalisading necrosis and microvascular proliferation are identified. Immunohistochemical stains are performed at [facility] to better classify this lesion (block B1) and show the following in neoplastic cells: IDH1 R132H: neagtive (wildtype); ATRX: retained (wildtype); BRAF V600E: negative (wildtype); p53 strong nuclear positivity in up to 40%; Ki67 proliferative index up to 25%. Addendum This addendum is rendered to report the results of the following molecular studies: Targeted Oncology Panel: The oncogenic TERT promoter alteration, c.-124C>T (also known as C228T) was detected in this specimen; MGMT promoter methylation: not hypermethylated. 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 Addendum electronically signed by Krista Snow MD on 04/03/2023 at 9:13 AM Imaging: MRI Report MRI BRAIN WO/W IVCON Exam End: 05/28/2024 10:43 AM (Final result) Narrative: * * *Final Report* * * DATE OF EXAM: May 28 2024 10:43AM [facility] [id number] - MRI BRAIN WO/W IVCON / PROCEDURE REASON: Craniotomy, post-op * * * * Physician Interpretation * * * * EXAMINATION: MRI BRAIN WO/W IVCON CLINICAL HISTORY: Postoperative exam status post redo left craniotomy for tumor resection 05/27/2024, left temporal GBM. TECHNIQUE: Routine brain MRI protocol without and with contrast including diffusion images. MQ: [id number] Contrast: 20 mL Dotarem IV COMPARISON: MRI localization 05/26/2024 RESULT: Acute Change: There is an acute infarct involving the left posterior putamen with associated T2 and FLAIR hyperintensity. No associated hemorrhage with the infarct. Mass Lesion/ Mass Effect: Redo left temporal craniotomy and interval resection of previously noted left temporal mass. Air and fluid opacification of the resection cavity in the left anterior temporal lobe with recent postoperative blood products. Intrinsic T1 hyperintense blood products along the posterior medial origin of the resection cavity. There is superimposed patchy ill-defined enhancement along the left uncus and medial margin of the resection defect (series 16, image 60) closely associated with the left M1 MCA branch and lenticulostriate vessels, which could reflect residual enhancing tumor versus postoperative changes. No other focal areas of superimposed enhancement along the resection margins. Pachymeningeal thickening and enhancement underlying the craniotomy in along the left temporal convexity, likely postoperative. Confluent T2 and FLAIR hyperintense signal along the resection margins extends into the posterior temporal lobe, superior temporal gyrus, periatrial white matter, external and internal capsules and left henry radiata, increased in extent from the prior exam with mild localized mass effect and effacement of the left lateral ventricle. No significant midline shift. Small extra-axial FLAIR hyperintense collections along the bilateral anterior frontal convexities measuring 1-2 mm without significant mass effect. Chronic Change: The white matter is otherwise within normal limits of signal intensity for age. Parenchyma: No significant volume loss for age. Ventricles: Mild effacement of the left lateral ventricle and temporal horn. Remainder of the ventricles are normal in caliber and configuration. Skull Base: Hypothalamic and pituitary region are grossly normal. Craniocervical junction is normal. No significant marrow replacement process. Vasculature: Major intracranial arterial structures, and dural venous sinuses show typical flow void, suggesting patency by spin echo criteria. Other: The visualized paranasal sinuses and mastoid air cells are clear. The orbits and extracranial soft tissues are unremarkable. Impression: IMPRESSION: Interval postoperative changes from redo left craniotomy and resection of the left anterior temporal lobe mass. Ill-defined nodular enhancement along the medial margin of the resection cavity and left mesial temporal lobe, which could be postoperative or reflect residual enhancing tumor. Increased extent of confluent T2/FLAIR hyperintensity in the left superior temporal gyrus, temporal lobe, internal/external capsules with localized mass effect and mild effacement of the left lateral ventricle, could be postoperative change. Small acute infarct involving the left posterior putamen without associated hemorrhage or significant mass effect. Call Worker Person: EMILI Transcribe Date/Time: May 28 2024 10:45A Dictated by : MITCHELL SCHUMACHER MD This examination was interpreted and the report reviewed and electronically signed by: MITCHELL SCHUMACHER MD on May 28 2024 11:01AM EST I reviewed the images with the patient. 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 Now with progressive disease per MRI from February 2024 --The patient is eligible for CASE 3322 clinical trial with methimazole + chemo. Patient signed consent. Had methimazole prior to surgery. He had second surgery the path is GBM He will start lomustine, I capped the dose up to 200 mg (standard), as single agent. Reference from UpToDate 1- Glioblastoma: Single-agent therapy, recurrent glioblastoma: Oral: 100 to 130 mg/m2 once every 6 weeks until disease progression or unacceptable toxicity (Ref) or 110 mg/m2 on day 1 every 6 weeks (maximum dose: 200 mg) for a maximum of 6 cycles (Ref). Reference: Concepcion W, Jasiel HM, Katelyn AM, et al. Single-agent bevacizumab or lomustine versus a combination of bevacizumab plus lomustine in patients with recurrent glioblastoma (BELOB trial): a randomised controlled phase 2 trial. Lancet Oncol. 2014;15(9):943-953. doi:10.1016/J[address]991-2655(87)72474-8 [PubMed [id number]] 6-Qouko-Mfygdvtv 25(7), 7124-5527, 2022 Excerpt/verbatim When given as a single agent the dose is usually 110 or 130 mg/m2 in cycles of 6 weeks because of the delayed myelosuppression (Supplementary Table S5). Most centers cap the dose at 200 mg. In case of significant hematological toxicity experienced during temozolomide treatment in the first-line setting, a first lomustine cycle with a reduced dose reduction can be considered and escalation at cycle 2 if the first cycle was well tolerated. PLAN: 1- GBM-MGMT promoter not hyper methylated. MRI of the brain from Apr 12, 2024, shows increased enhancement, with increased CBV. -Continue CASE 3322 clinical trial with methimazole + chemo. Patient signed consent. -Continue methimazole per trial. -Lomustine 110 mg/M2 , dose capped 200 mg day cycle [id number]-[id number]-[id number] nausea: -Use Zofran, prior/after chemo and as needed 3-Imaging surveillance: -Brain w and w/o contrast and perfusion - 6 weeks after second dose of methimazole. 2A-Clinic visits: -per clinical trial 3-Bone marrow suppression from chemotherapy: periodic CBC, every 4 weeks Also, CMP every 4 weeks. Other blood test, per clinical trial 4- Seizures: Since I saw him last, he has not had any events to suggest seizures (02/19/2024). -On lacosamide (Vimpat): Started on 04/05/23. Dose is 150 mg twice a day. -Recommend to do lacosamide blood levels, to be done in the next 1 to 2 weeks. It should be a trough level, that is, in the morning, prior to the a.m. dose. 5-Seizure precautions: The patient is not to drive any motorized vehicle, and not to engage in activities that could place her or others in danger if she were to have a seizure. I also discussed the use of rescue medication for breakthrough seizures, using midazolam nasal spray (NS) to use it as needed (PRN) and discussed when to use it. I discussed the potential benefits and side effects, including tiredness, fatigue, and or sleepiness and if so, the patient is not to engage in activities that require to be fully alert. I have also provided written information for the patient's review. 6-He is to follow by her PCP for general medical care/coordination of care. 7-NOT ON STEROIDS 8-To see PCP for to define appropriate vaccinations above. 9-Potential for thromboembolism: to watch for potential DVT/Pulmonary Embolism, and if so to go to the ED/call 911. 10-End of life issues: Adv Dir in chart. -Patient disa cussed, this important aspect, of his diagnosis, that is, that he acknowledges, that this condition will end his life, at young age, and relatively soon and that he has goals, for the next year or so, that is, to attend, important milestones events of his children's, which will take place, in the next year or so. Currently,02/19/24 his children's are 20 and 21 years old. He has seen Dr. Lion, from palliative medicine will also give advice regarding his. 11-psychosocial issues: Patient asked, advised on how to approach, his current diagnosis and progressive disease, with his children who are 2020. We given some advice, how it could be helpful for his children to cope with his unfortunate condition. However, we recommended for him to seek attention from psychosocial oncology, and this Could be expanded to the family. He has seen Dr. Daniel Juárez from psychology and psychiatry, as well FAMILY SERVICES SPECIALIST Jaclyn Guillory. I saw the patient in collaboration with Lester Beckett RN [facility] clinical trials nurse. In the end the patient and family verbalized understanding of the above, they had questions which I believe I answered to their satisfaction and agreed with these recommendations and had no further questions or concerns for the moment, but I encourage them to call the [facility] with any questions or concerns. I spent a total of 40 minutes on the date of the service which included preparing to see the patient, at least 50% of [id number] patient care, completing clinical documentation, obtaining and/or reviewing separately obtained history, performing a medically appropriate examination, counseling and educating the patient/family/caregiver, ordering medications, tests, or procedures, communicating with other HCPs (not separately reported), independently interpreting results (not separately reported), communicating results to the patient/family/caregiver and care coordination (not separately reported). Patricia Enriquez MD [facility] Patient Care Team: -Jose Evans MD, Neurosurgery, [facility], [facility], [facility] Cyndee Joyce MD, PhD, Radiation Oncology, [facility], [facility], [facility]. Jaclyn Guillory, FAMILY SERVICES SPECIALIST as Pull Worker (Hematology/Oncology) Soraida Simmons, VAZQUEZ (Hospice AND Palliative Medicine) Willy Lion MD (Hospice AND Palliative Medicine) Rupa Khoury APRN.MANUFACTURING ENGINEERING MANAGER (Hospice AND Palliative Medicine) Daniel Juárez PSYD, Psychology, [facility] PROGRESS Observed: 06/16/2024 12:22 PM Status: COMPLETED Source: [facility] HNO ID: [id number] Author: NADEEN BECKETT RN Service: ? Author Type: Registered Nurse Type: Progress Notes Filed: 09/02/2024 12:22 Note Text: Patient: Angel Keating : 1970 Prescription entered in [facility]: Yes Physician: Dr. Enriquez Pharmacy: [facility] AND Dose: Lomustine 200mg ----Lomustine and Anti-Emetic are SOC Study: IRB#: [id number] Case 3322 - Targeting Transsulfuration via Suppression of Thyroid Hormone Signaling in Progressive Glioblastoma; Modified Phase 1/2 and Pharmacodynamic Trial of Methimazole in Patients with Progressive WHO Grade 4 Glioblastoma Cycle: 1 Special instructions: Not to take until instructed by research or Dr. Fraire. Med AND Dose: Lomustine + Zofran 7.97ANC 171 PLT 2.22BSA Dose Level 1: 110 mg/m2 x BSA (2.22) = 244.2 mg rounded to [address] Enriquez. Lomustine 100 mg capsules (x2 pills) Zofran 8 mg (5 tablets) Instructions: Take one 8 mg Zofran on an empty stomach in the evening. Wait ONE hour. Take TWO 100mg capsule(s) of Lomustine for a total dose of 200 mg. Take one 8 mg Zofran twenty-four hours later. Take on Day 1 of each 42 day cycle. Take additional Zofran dose every 8 hours as needed for breakthrough nausea. PATIENT IS AWARE TO NOT TAKE Lomustine UNTIL INSTRUCTED BY RESEARCH. Patient education on medication: YES Allergies checked: YES Nadeen Beckett RN 06/16/2024 at 12:22 PM Medication pended and routed to Dr. Enriquez to sign: YES CNNURSE Observed: 06/16/2024 11:30 AM Status: COMPLETED Source: [facility] Nurse Visit (NSCAMN) RISHABHANGEL Arango ([id number]) 1970 M Date Time Provider Department 06/16/24 11:30 AM HEIDI ARRIAZA [facility] During your visit today, we recorded the following information about you: Karla Pedroza MA 06/16/2024 12:32 PM Signed Reviewed and confirmed with patient that there were no changes in the the nursing assessment and vitals that were completed on June 16, 2024 during previous provider appointment. SALEEM Zepeda Jill, VAZQUEZ 06/16/2024 2:07 PM Signed Patient is here today by himself for surgical incision wound check. Surgery: Left Craniotomy on May 27 for tumor resection with Dr Evans Patient is recovering well postoperatively. No neurological symptoms or complaints compared to preoperative baseline . Re-discussed postoperative activity and associated restrictions. Incision is well approximated and healing. There are no signs or symptoms of infection. There is some fluid under the skin noted around the incisional area. There is no drainage noted from the incision. Dr. Evans assessed the incisional area and per his recommendations the incision was cleansed with alcohol and the wilfredo were removed without incident. Reviewed wound care with patient with good understanding. Patient aware to phone office with any questions or concerns. Heidi Arriaza FILLER SIFTER MACHINE Banking Supervisor [phone]. Allergies As of Date: 06/16/2024 (No Known Allergies) Date Reviewed: 06/16/2024 Reviewed by: Karla Pedroza MA - Fully Assessed Primary Visit Diagnosis:GBM (glioblastoma multiforme) (HCC) [C71.9] Prescriptions as of 06/16/2024 - methIMAzole (TAPAZOLE) 5 mg tablet Take TWO 10 mg tablets and ONE 5 mg tablet for a total dose of 25 mg, daily. - methIMAzole (TAPAZOLE) 10 mg tablet Take TWO 10 mg tablets and ONE 5 mg tablet for a total dose of 25 mg, daily. - lacosamide (VIMPAT) 150 mg tab Take 1 tablet by mouth two times a day. - iv contrast (will be provided with radiology test) MRI Brain Inject, intravenously, once for 1 dose.No IV access, insert saline lock prior to beginning of sedation, infusion, injection of imaging exam.Discontinue saline lock post exam. If Pt. has a central line or IVAD, may access for administration according to line specific nursing protocol.Once exam is complete flush line and de-access according to line specific nursing protocol in the MR contrast administration guidelines link - dexAMETHasone (DECADRON) 2 mg tablet Take 4 tablets by mouth two times a day with meals for 4 days, THEN 3 tablets two times a day with meals for 4 days, THEN 2 tablets two times a day with meals for 4 days, THEN 1 tablet two times a day with meals. - iv contrast (will be provided with radiology test) MRI Brain Inject, intravenously, once for 1 dose.No IV access, insert saline lock prior to beginning of sedation, infusion, injection of imaging exam.Discontinue saline lock post exam. If Pt. has a central line or IVAD, may access for administration according to line specific nursing protocol.Once exam is complete flush line and de-access according to line specific nursing protocol in the MR contrast administration guidelines link - ondansetron (ZOFRAN) 8 mg tablet Take one tablet by mouth one hour prior to chemo. May repeat dose every 8-12 hours if needed to prevent nausea - meclizine (ANTIVERT) 25 mg tab Take 1 tablet by mouth three times a day. - valACYclovir (VALTREX) 1 gram tablet Take 1,000 mg by mouth three times a day. - midazolam (NAYZILAM) 5 mg/spray (0.1 mL) nasal spray Use 1 [place] in the nose as needed for up to 10 days. May repeat dose in alternate nostril after 10 minutes based on response and tolerability. - sennosides (SENNA ORAL) Take by mouth. - DIETARY SUPPLEMENT,MISC COMB14 ORAL Take by mouth. Biomega 1000mg containing vitamin E and pure anchovy - medical supply, miscellaneous (MISCELLANEOUS MEDICAL SUPPLY MISC) Neurotrophin - acetaminophen (TYLENOL) 325 mg tablet 2 tablets by ORAL/FEEDING TUBE route every 4 hours as needed for pain. - pantoprazole DR (PROTONIX) 20 mg tablet Take 1 tablet by mouth DAILY (6 AM). Problem List As Of Date 06/16/2024 Noted Resolved Chest pain [R07.9] 04/25/2010 05/26/2024 Brain mass [G93.89] 03/17/2023 11/17/2023 Obesity, Class I, BMI 30-34.9 [E66.811] 03/17/2023 Brain compression (HCC) [G93.5] 03/20/2023 S/P brain surgery [Z98.890] 03/20/2023 11/17/2023 At risk for seizures [Z91.89] 03/20/2023 Cerebral edema (HCC) [G93.6] 03/20/2023 GBM (glioblastoma multiforme) (HCC) [C71.9] 04/07/2023 Syncope, unspecified syncope type [R55] 11/01/2023 11/03/2023 Examination of participant in clinical trial [Z*11/05/2023 11/17/2023 Forehead pain [R51.9] 11/05/2023 PONV (postoperative nausea and vomiting) [R11.2*05/26/2024 Acute post-operative pain [G89.18] 05/29/2024 Visit Notes: >> Karla Pedroza MA [facility] Jun 16, 2024 12:32 PM Status: Signed Reviewed and confirmed with patient that there were no changes in the the nursing assessment and vitals that were completed on June 16, 2024 during previous provider appointment. Karla Pedroza MA Encounter Status:Closed by HEIDI ARRIAZA on 06/16/24 CNOV Observed: 06/16/2024 11:00 AM Status: COMPLETED Source: [facility] Office Visit (NSCAMN) ANGEL KEATING ([id number]) 1970 M Date Time Provider Department 06/16/24 11:00 AM PATRICIA ENRIQUEZ NSCAMN During your visit today, we recorded the following information about you: Temperature Pulse Respiration Blood pressure 98.4 degrees 91/minute 18/minute 126/79 Weight Height 99.8 kg 1.774 m Karla Pedroza MA 06/16/2024 11:57 AM Signed Additional intake questions: Has the patient had fever, nausea, vomiting, diarrhea, constipation, fatigue for > 1 week? No Does the patient have a decreased appetite? No Does patient want to see a Outside Solar Sales Consultant? No (yes to any of above refer patient to schedulers for dietitian appointment) ) Does patient have any new or increased numbness or tingling of extremities? No Is patient interested in fertility information? No Does patient need any prescription refills? Yes, LIP notified Does patient have an advanced directive in place? No, Patient referred to Resource Center Electronically Signed By: ASLEEM Zepeda Alejandro, MD 06/20/2024 5:59 AM Addendum [facility] Follow up Clinic visit [facility] Team: -Jose Evans MD, Neurosurgery -SAV Rodriguez, Radiation Oncology -Patricia Enriquez MD, Neuro-Oncology DIAGNOSIS: MGMT unmethylated Glioblastoma. 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 He initially presented with anxiety-attack like episodes going back to January 2023 as well as a fall, without loss of consciousness but +trauma to head around 02/27/2023. On 03/16/2023, he presented to [facility] ED with word finding difficulty, report of one-time fever of 101 in February, anxiety, increased thirst and urination and was found to have a L temporal mass with midline subfalcine shift concerning for high grade glioma. He was afebrile with normal glucose level and electrolytes. He underwent gross total resection by Dr. Evans on 03/19/2023, revealing an MGMT unmethylated glioblastoma, WHO Grade 4. He was discharged on keppra 750mg BID and dexamethasone taper. He established care with Dr. Enriquez and given paroxysmal episodes of anxiety, he was concerned about temporal lobe epilepsy and advised lifelong AED to reduce seizure risk. The patient was exhibiting some fatigue and dullness, so a cross taper from keppra to vimpat, with goal of vimpat 150mg BID. The patient expressed interest in clinical trials and enrolled onto [facility]. He was randomized to the [id number] arm (cyclic peptide modulating tumor microenvironment). TREATMENT HISTORY Gross total resection [03/19/2023] [facility] Dr. Evans MGMT unmethylated Glioblastoma. L temporal GCAR AGILE, randomized to [id number] IV twice weekly arm + Standard concurrent chemotherapy and radiation (04/20- 05/29/2023) [facility] Dr. Joyce and Dr. Enriquez Adjuvant temozolomide PO D1-5 q 28 days C1 07/01/23, will start 07/03 150mg/m2 C2 07/27/23 C3 08/31/23 C4 09/21/23 C5 10/26/23 C6 11/23/23 C7 12/28/23 STOP ADJ TMZ as the clinical; trial calls for up to 6 cycles. For some reason the patient had an extra cycle of Adj TMZ. Adjuvant [id number] during Maintenance: Cycle 7 Week 1 - infusions on 12/14/2023 (D1) and 12/17/2023 (D4) Cycle 7 Week 2 - infusions on 12/21/2023 (D8) and 12/24/2023 (D11) Cycle 7 Week 3 - infusions on 12/28/2023 (D15) and 12/31/2023 (D18) Cycle 7 Week 4 - infusions on 01/05/2024 (D22) and 01/08/2024 (D25) Cycle 8 Week 5 - infusions on 01/11/2024 and 01/14/2024 02/08/2024: MRI shows progression 02/08/24 BTB Referrals to se Dr. Evans for possible surgery. If surgery offered, he can be enrolled in CASE 3322 clinical trial with methimazole + chemo. 02/18/24: Dr Evans recommended NO surgery. 02/26/24 Lomustine 90mg/m2 C#1 02/25-04/08/24 04/12/24 Tumor progression, increased CBV 04/14/2024 BTB Referrals to se Dr. Evans for possible surgery. The patient is also eligible, for CASE 3322 clinical trial with methimazole + chemo. 04/28/2024 Jose Evans MD since the patient, and recommended surgery. 04/28/2024 clinical trials team, saw the patient, the patient is eligible, for for CASE 3322 clinical trial with methimazole + chemo. Patient signed consent. Treatment plan: Pre-operative treatment Phase -Methimazole - Pre-Op period: 05/24/2024 to 05/27/2024 (last dose is DAY of surgery) -Dose level 2 (25 mg daily) Surgical resection 05/27/[address] 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 C1D1 (10-28 days after surgery) -Scheduled for 06/16/2024 (20 days post op) -Methimazole - Post-Op period: 05/27/2024- TBD -Dose level 2 (25 mg daily 06/16/2024 In person visit The patient is unaccompanied He still with some language dysfunction but not worsening. Has no headaches or seizures. No other neurological issues. Her is here for post op evaluation, and define continuation on the clinical trial, and initiate clinician's choice of systemic therapy. Last Chemo: see above Current Steroids dose: N/A Current AED Dose: lacosamide (VIMPAT) 150 mg tab Take 1 tablet by mouth two times a day. Therapy Status Data Form Past Medical History: PAST MEDICAL HISTORY Diagnosis Date At risk for seizures 03/19/2023 due to left temporal glioblastoma GBM (glioblastoma multiforme) (HCC) 03/19/2023 WHO Grade 4 GBM; IDH1 R132H negative (wildtype); ATRX retained (wildtype); BRAF V600E negative (wildtype); p53 strong up to 40%; Ki67 up to 25%, MGMT unmethylated Past Surgical History: PAST SURGICAL HISTORY Procedure Laterality Date APPENDECTOMY 1977 removed as part of internal bleeding due to trauma COLONOSCOPY FLX DX W/COLLJ SPEC WHEN PFRMD Colonoscopy ESOPHAGOGASTRODUODENOSCOPY TRANSORAL DIAGNOSTIC EGD EXCIS SUPRATENT BRAIN TUMOR 03/19/2023 Left-sided craniotomy for temporal mass resection by Dr. Evans; path = GBM ORTHOPEDICS SURGERY HX 1997 knee surgery SHX CRANIOTOMY Left 03/19/2023 Family History: FAMILY HISTORY Problem Relation Age of Onset Diabetes Father Coronary Artery Disease Father Stroke Father Breast Cancer Mother None Sister Anesthesia Problems No Family History Social History Tobacco Use Smoking status: Former Current packs/day: 1.00 Average packs/day: 1 pack/day for 4.0 years (4.0 ttl pk-yrs) Types: Cigarettes Smokeless tobacco: Never Vaping Use Vaping status: Never Used Substance Use Topics Alcohol use: Not Currently Comment: three beers a month - per pt [id number] Allergies: Patient has no known allergies. Current Outpatient Medications Medication Sig lacosamide (VIMPAT) 150 mg tab Take 1 tablet by mouth two times a day. iv contrast (will be provided with radiology test) MRI Brain Inject, intravenously, once for 1 dose.No IV access, insert saline lock prior to beginning of sedation, infusion, injection of imaging exam.Discontinue saline lock post exam. If Pt. has a central line or IVAD, may access for administration according to line specific nursing protocol.Once exam is complete flush line and de-access according to line specific nursing protocol in the MR contrast administration guidelines link iv contrast (will be provided with radiology test) MRI Brain Inject, intravenously, once for 1 dose.No IV access, insert saline lock prior to beginning of sedation, infusion, injection of imaging exam.Discontinue saline lock post exam. If Pt. has a central line or IVAD, may access for administration according to line specific nursing protocol.Once exam is complete flush line and de-access according to line specific nursing protocol in the MR contrast administration guidelines link meclizine (ANTIVERT) 25 mg tab Take 1 tablet by mouth three times a day. valACYclovir (VALTREX) 1 gram tablet Take 1,000 mg by mouth three times a day. ondansetron (ZOFRAN) 8 mg tablet Take one hour prior to temozolomide prescription then every 8 hours as needed for nausea. temozolomide (TEMODAR) 180 mg capsule Fast for one hour after taking Zofran and then take ONE 180 mg capsule, plus ONE 140 mg and TWO 5 mg capsules to total 330 mg. Then, fast for one hour after taking. Take on days 1-5 of your 28 day cycle. Temozolomide 140 mg capsule Fast for one hour after taking Zofran and then take ONE 180 mg capsule, plus ONE 140 mg and TWO 5 mg capsules to total 330 mg. Then, fast for one hour after taking. Take on days 1-5 of your 28 day cycle. temozolomide (TEMODAR) 5 mg capsule Fast for one hour after taking Zofran and then take ONE 180 mg capsule, plus ONE 140 mg and TWO 5 mg capsules to total 330 mg. Then, fast for one hour after taking. Take on days 1-5 of your 28 day cycle. ondansetron (ZOFRAN) 8 mg tablet Take 1 tablet (8 mg) by mouth one hour before taking temozolomide dosing. Take on an empty stomach (Patient taking differently: Take 1 tablet (8 mg) by mouth one hour before taking temozolomide dosing. Take on an empty stomach) sennosides (SENNA ORAL) Take by mouth. DIETARY SUPPLEMENT,[facility] COMB14 ORAL Take by mouth. Biomega 1000mg containing vitamin E and pure anchovy medical supply, [facility] (KvantumCELLANEOUS MEDICAL SUPPLY [facility]) Neurotrophin acetaminophen (TYLENOL) 325 mg tablet 2 tablets by ORAL/FEEDING TUBE route every 4 hours as needed for pain. pantoprazole DR (PROTONIX) 20 mg tablet Take 1 tablet by mouth DAILY (6 AM). midazolam (NAYZILAM) 5 mg/spray (0.1 mL) nasal spray Use 1 [place] in the nose as needed for up to 10 days. May repeat dose in alternate nostril after 10 minutes based on response and tolerability. No current facility-administered medications for this visit. Review of systems: Constitutional: No recent fever or weight loss. Eyes: No history of glaucoma or cataracts. ENMT: No recent ear infection, nasal congestion, mouth sores or sore throat. CV: No history of chest pain, palpitations or leg swelling. Respiratory: No history of SOB, asthma or recent cough. Gastrointestinal: No history of nausea, vomiting, dysphagia or abdominal pain. Genitourinary: No history of hematuria or dysuria. Musculoskeletal: No complaint of arthritis, unstable gait or arm/leg weakness. Psychiatric: No history of hallucinations or depression or anxiety. ROS Neurological: No complaint of headache. No complaint of tinnitus. No complaint of decreased hearing. No complaint of diplopia. No complaints of decreased visual acuity. No complaint of arm/leg numbness. No problem with limb coordination. No complaint of syncope, seizures or disorientation. Objective Physical Exam: BP 126/79 Pulse 91 Temp 36.9 ?C (98.4 ?F) (Oral) Resp 18 Ht 177.4 cm (5' 9.84) Wt 99.8 kg (220 lb 0.3 oz) SpO2 97% BMI 31.71 kg/m? GENERAL EXAM: General appearance: Well appearing, alert, in no acute distress Skin: Skin color, texture, turgor normal Oropharynx: No thrush noted. Lungs: Lungs clear to auscultation. No wheezing, rhonchi, rales Heart: RRR without murmur, gallop, or rubs. No ectopy Abdomen: Normal abdominal exam, Abdomen soft, non-tender. Bowel sounds normal. Extremities: No deformities, skin discoloration, clubbing or cyanosis. Good capillary refill, no edema to BLE. Harmony's sign negative. No pain to palpation. NEUROLOGICAL EXAM: Higher integrative functions: Oriented to person, place AND time. Attention Span and Concentration: Good. Language: Accurate naming of objects. Good comprehension. Fund of Knowledge: Good. 2nd CN: Full visual land. 3rd,4th,6th CN: Pupils equal, round, react to light, full extraocular movements. 5th CN: No decrease in facial sensation 7th CN: Facial muscles symmetric and strong. 8th CN: Hears finger rub well bilaterally. 9th CN: Gag reflex not tested 10th CN: Spontaneous palate movement, full and symmetric. 11th CN: Full strength in shoulder shrug. 12th CN: Tongue protrusion full and midline. Sensation: No decrease in sensation in upper or lower limbs to touch. Musculoskeletal: Gait steady. Tandem walk normal. Romberg negative. Motor: 5/5 RUE/RLE; 5/5 LUE/LLENormal muscle tone without atrophy in all limbs. Coordination: Rapid alternating movements LUE intact; RUE intact Reflexes: 1-2+ ALL limbs. Plantar response down going. Karnofsky performance status: 80 - Normal activity with effort, some signs or symptoms of disease. ECOG performance status: 1 - Restricted in physically strenuous activity but ambulatory and able to carry out work of a light or sedentary nature, e.g., light house work or office work. 05/18/2023 PHQ 2 and 9 Total Scores PHQ-2 Score 1 PHQ-9 Score 8 Labs: Latest Ref Rng AND Units 05/28/2024 05/29/2024 06/16/2024 CBC WBC 3.70 - 11.00 k/uL 13.40 13.95 9.46 RBC 4.20 - 6.00 m/uL 4.10 3.79 4.25 Hemoglobin 13.0 - 17.0 g/dL 13.1 12.2 13.9 Hematocrit 39.0 - 51.0 % 37.8 35.3 39.8 MCV 80.0 - 100.0 fL 92.2 93.1 93.6 MCH 26.0 - 34.0 pg 32.0 32.2 32.7 MCHC 30.5 - 36.0 g/dL 34.7 34.6 34.9 RDW-CV 11.5 - 15.0 % 13.2 13.5 14.5 Platelet Count 150 - 400 k/uL 233 206 171 MPV 9.0 - 12.7 fL 9.1 9.1 8.9 Baso% % 0.1 0.1 0.1 Abs Neut (ANC) 1.45 - 7.50 k/uL 11.93 12.88 7.97 Abs Lymph 1.00 - 4.00 k/uL 0.76 0.55 0.68 Abs Branch <0.87 k/uL 0.65 0.47 0.62 Abs Eosin <0.46 k/uL <0.03 <0.03 0.10 Abs Baso <0.11 k/uL <0.03 <0.03 <0.03 NRBC /100 WBC 0.0 0.0 0.0 Latest Ref Rng AND Units 05/28/2024 05/29/2024 06/16/2024 CMP Sodium 136 - 144 mmol/L 139 139 135 Potassium 3.7 - 5.1 mmol/L 4.2 4.4 4.0 Chloride 98 - 107 mmol/L 105 108 104 CO2 22 - 30 mmol/L 23 23 21 Glucose 74 - 99 mg/dL 143 147 97 BUN 9 - 24 mg/dL 17 18 23 Creatinine 0.73 - 1.22 mg/dL 1.17 1.07 1.05 EGFR >=60 mL/min/1.73m? 74 82 84 Protein, Total 6.3 - 8.0 g/dL 5.9 Albumin 3.9 - 4.9 g/dL 3.4 Calcium 8.5 - 10.2 mg/dL 8.8 8.5 8.2 Bilirubin, Total 0.2 - 1.3 mg/dL 0.6 AST 14 - 40 U/L 11 ALT 10 - 54 U/L 21 Alkaline Phosphatase 38 - 113 U/L 64 Final Pathology: SURGICAL PATHOLOGY: [id number] Order: [id number] Collected 03/19/2023 10:24 AM Status: Edited Result - FINAL Visible to patient: Yes (not seen) Dx: Brain tumor (HCC) 0 Result Notes Component FINAL DIAGNOSIS A, B. Brain, left temporal mass, biopsy and resection: - Morphologically consistent with high grade glioma. See comment. Diagnosis Comment CARLOS stained sections reveal a hypercellular infiltrating glioma with moderate to marked nuclear pleomorphism and increased mitoses (upto 4 per 10 high per field). Pseudopalisading necrosis and microvascular proliferation are identified. Immunohistochemical stains are performed at [facility] to better classify this lesion (block B1) and show the following in neoplastic cells: IDH1 R132H: neagtive (wildtype); ATRX: retained (wildtype); BRAF V600E: negative (wildtype); p53 strong nuclear positivity in up to 40%; Ki67 proliferative index up to 25%. Addendum This addendum is rendered to report the results of the following molecular studies: Targeted Oncology Panel: The oncogenic TERT promoter alteration, c.-124C>T (also known as C228T) was detected in this specimen; MGMT promoter methylation: not hypermethylated. 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 Addendum electronically signed by Krista Snow MD on 04/03/2023 at 9:13 AM Imaging: MRI Report MRI BRAIN WO/W IVCON Exam End: 05/28/2024 10:43 AM (Final result) Narrative: * * *Final Report* * * DATE OF EXAM: May 28 2024 10:43AM QBM [id number] - MRI BRAIN WO/W IVCON / PROCEDURE REASON: Craniotomy, post-op * * * * Physician Interpretation * * * * EXAMINATION: MRI BRAIN WO/W IVCON CLINICAL HISTORY: Postoperative exam status post redo left craniotomy for tumor resection 05/27/2024, left temporal GBM. TECHNIQUE: Routine brain MRI protocol without and with contrast including diffusion images. MQ: [id number] Contrast: 20 mL Dotarem IV COMPARISON: MRI localization 05/26/2024 RESULT: Acute Change: There is an acute infarct involving the left posterior putamen with associated T2 and FLAIR hyperintensity. No associated hemorrhage with the infarct. Mass Lesion/ Mass Effect: Redo left temporal craniotomy and interval resection of previously noted left temporal mass. Air and fluid opacification of the resection cavity in the left anterior temporal lobe with recent postoperative blood products. Intrinsic T1 hyperintense blood products along the posterior medial origin of the resection cavity. There is superimposed patchy ill-defined enhancement along the left uncus and medial margin of the resection defect (series 16, image 60) closely associated with the left M1 MCA branch and lenticulostriate vessels, which could reflect residual enhancing tumor versus postoperative changes. No other focal areas of superimposed enhancement along the resection margins. Pachymeningeal thickening and enhancement underlying the craniotomy in along the left temporal convexity, likely postoperative. Confluent T2 and FLAIR hyperintense signal along the resection margins extends into the posterior temporal lobe, superior temporal gyrus, periatrial white matter, external and internal capsules and left henry radiata, increased in extent from the prior exam with mild localized mass effect and effacement of the left lateral ventricle. No significant midline shift. Small extra-axial FLAIR hyperintense collections along the bilateral anterior frontal convexities measuring 1-2 mm without significant mass effect. Chronic Change: The white matter is otherwise within normal limits of signal intensity for age. Parenchyma: No significant volume loss for age. Ventricles: Mild effacement of the left lateral ventricle and temporal horn. Remainder of the ventricles are normal in caliber and configuration. Skull Base: Hypothalamic and pituitary region are grossly normal. Craniocervical junction is normal. No significant marrow replacement process. Vasculature: Major intracranial arterial structures, and dural venous sinuses show typical flow void, suggesting patency by spin echo criteria. Other: The visualized paranasal sinuses and mastoid air cells are clear. The orbits and extracranial soft tissues are unremarkable. Impression: IMPRESSION: Interval postoperative changes from redo left craniotomy and resection of the left anterior temporal lobe mass. Ill-defined nodular enhancement along the medial margin of the resection cavity and left mesial temporal lobe, which could be postoperative or reflect residual enhancing tumor. Increased extent of confluent T2/FLAIR hyperintensity in the left superior temporal gyrus, temporal lobe, internal/external capsules with localized mass effect and mild effacement of the left lateral ventricle, could be postoperative change. Small acute infarct involving the left posterior putamen without associated hemorrhage or significant mass effect. Call Worker Person: EMIIL Transcribe Date/Time: May 28 2024 10:45A Dictated by : MITCHELL SCHUMACHER MD This examination was interpreted and the report reviewed and electronically signed by: MITCHELL SCHUMACHER MD on May 28 2024 11:01AM EST I reviewed the images with the patient. 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 Now with progressive disease per MRI from February 2024 --The patient is eligible for CASE 3322 clinical trial with methimazole + chemo. Patient signed consent. Had methimazole prior to surgery. He had second surgery the path is GBM He will start lomustine, I capped the dose up to 200 mg (standard), as single agent. Reference from UpToDate 1- Glioblastoma: Single-agent therapy, recurrent glioblastoma: Oral: 100 to 130 mg/m2 once every 6 weeks until disease progression or unacceptable toxicity (Ref) or 110 mg/m2 on day 1 every 6 weeks (maximum dose: 200 mg) for a maximum of 6 cycles (Ref). Reference: Concepcion W, Jasiel HM, Katelyn AM, et al. Single-agent bevacizumab or lomustine versus a combination of bevacizumab plus lomustine in patients with recurrent glioblastoma (BELOB trial): a randomised controlled phase 2 trial. Lancet Oncol. 2014;15(9):943-953. doi:10.1016/V0827-9281(00)58930-5 [PubMed [id number]] 6-Fesfu-Lktlvmpr 25(7), 2753-9305, 2022 Excerpt/verbatim When given as a single agent the dose is usually 110 or 130 mg/m2 in cycles of 6 weeks because of the delayed myelosuppression (Supplementary Table S5). Most centers cap the dose at 200 mg. In case of significant hematological toxicity experienced during temozolomide treatment in the first-line setting, a first lomustine cycle with a reduced dose reduction can be considered and escalation at cycle 2 if the first cycle was well tolerated. PLAN: 1- GBM-MGMT promoter not hyper methylated. MRI of the brain from Apr 12, 2024, shows increased enhancement, with increased CBV. -Continue CASE 3322 clinical trial with methimazole + chemo. Patient signed consent. -Continue methimazole per trial. -Lomustine 110 mg/M2 , dose capped 200 mg day cycle 6-zzhzylmxdnvg-sgiuhxr nausea: -Use Zofran, prior/after chemo and as needed 3-Imaging surveillance: -Brain w and w/o contrast and perfusion - 6 weeks after second dose of methimazole. 2A-Clinic visits: -per clinical trial 3-Bone marrow suppression from chemotherapy: periodic CBC, every 4 weeks Also, CMP every 4 weeks. Other blood test, per clinical trial 4- Seizures: Since I saw him last, he has not had any events to suggest seizures (02/19/2024). -On lacosamide (Vimpat): Started on 04/05/23. Dose is 150 mg twice a day. -Recommend to do lacosamide blood levels, to be done in the next 1 to 2 weeks. It should be a trough level, that is, in the morning, prior to the a.m. dose. 5-Seizure precautions: The patient is not to drive any motorized vehicle, and not to engage in activities that could place her or others in danger if she were to have a seizure. I also discussed the use of rescue medication for breakthrough seizures, using midazolam nasal spray (NS) to use it as needed (PRN) and discussed when to use it. I discussed the potential benefits and side effects, including tiredness, fatigue, and or sleepiness and if so, the patient is not to engage in activities that require to be fully alert. I have also provided written information for the patient's review. 6-He is to follow by her PCP for general medical care/coordination of care. 7-NOT ON STEROIDS 8-To see PCP for to define appropriate vaccinations above. 9-Potential for thromboembolism: to watch for potential DVT/Pulmonary Embolism, and if so to go to the ED/call 911. 10-End of life issues: Adv Dir in chart. -Patient dissudha cussed, this important aspect, of his diagnosis, that is, that he acknowledges, that this condition will end his life, at young age, and relatively soon and that he has goals, for the next year or so, that is, to attend, important milestones events of his children's, which will take place, in the next year or so. Currently,02/19/24 his children's are 20 and 21 years old. He has seen Dr. Lion, from palliative medicine will also give advice regarding his. 11-psychosocial issues: Patient asked, advised on how to approach, his current diagnosis and progressive disease, with his children who are 2020. We given some advice, how it could be helpful for his children to cope with his unfortunate condition. However, we recommended for him to seek attention from psychosocial oncology, and this Could be expanded to the family. He has seen Dr. Daniel Juárez from psychology and psychiatry, as well [facility] Jaclyn Guillory. I saw the patient in collaboration with Lester Beckett RN [facility] clinical trials nurse. In the end the patient and family verbalized understanding of the above, they had questions which I believe I answered to their satisfaction and agreed with these recommendations and had no further questions or concerns for the moment, but I encourage them to call the [facility] Center with any questions or concerns. I spent a total of 40 minutes on the date of the service which included preparing to see the patient, at least 50% of [id number] patient care, completing clinical documentation, obtaining and/or reviewing separately obtained history, performing a medically appropriate examination, counseling and educating the patient/family/caregiver, ordering medications, tests, or procedures, communicating with other HCPs (not separately reported), independently interpreting results (not separately reported), communicating results to the patient/family/caregiver and care coordination (not separately reported). Patricia Enriquez MD [facility] Patient Care Team: -Jose Evans MD, Neurosurgery, [facility], [facility], [facility] Cyndee Joyce MD, PhD, Radiation Oncology, [facility], [facility], [facility]. Jaclyn Guillory LSW as Pull Worker (Hematology/Oncology) Soraida Simmons RN (Hospice AND Palliative Medicine) Willy Lion MD (Hospice AND Palliative Medicine) Rupa Khoury APRN.EDSON (Hospice AND Palliative Medicine) Daniel Juárez PSYD, Psychology, [facility] Allergies As of Date: 06/16/2024 (No Known Allergies) Date Reviewed: 06/16/2024 Reviewed by: Karla Pedroza MA - Fully Assessed Reason for Visit: Established Patient [175] Primary Visit Diagnosis:GBM (glioblastoma multiforme) (HCC) [C71.9] Other Visit Diagnoses:Chemotherapy management, encounter for [Z51.11] Encounter for chemotherapy management [Z51.11] Need for pneumocystis prophylaxis [Z29.89] Glioblastoma (HCC) [C71.9] High grade glioma not classifiable by WHO criteria (HCC) [C71.9] Seizures (HCC) [R56.9] Brain tumor (HCC) [D49.6] Examination of participant in clinical trial [Z00.6] At risk of seizures [Z91.89] Prescriptions as of 06/20/2024 - methIMAzole (TAPAZOLE) 5 mg tablet Take TWO 10 mg tablets and ONE 5 mg tablet for a total dose of 25 mg, daily. - methIMAzole (TAPAZOLE) 10 mg tablet Take TWO 10 mg tablets and ONE 5 mg tablet for a total dose of 25 mg, daily. - lacosamide (VIMPAT) 150 mg tab Take 1 tablet by mouth two times a day. - lomustine (GLEOSTINE) 100 mg capsule Take one 8 mg Zofran on an empty stomach in the evening. Wait ONE hour. Take TWO 100 mg capsule(s) by mouth for a total dose of 200 mg. Take one 8 mg Zofran twenty-four hours later. Take on Day 1 of each 42 day cycle. - iv contrast (will be provided with radiology test) MRI Brain Inject, intravenously, once for 1 dose.No IV access, insert saline lock prior to beginning of sedation, infusion, injection of imaging exam.Discontinue saline lock post exam. If Pt. has a central line or IVAD, may access for administration according to line specific nursing protocol.Once exam is complete flush line and de-access according to line specific nursing protocol in the MR contrast administration guidelines link - dexAMETHasone (DECADRON) 2 mg tablet Take 4 tablets by mouth two times a day with meals for 4 days, THEN 3 tablets two times a day with meals for 4 days, THEN 2 tablets two times a day with meals for 4 days, THEN 1 tablet two times a day with meals. - iv contrast (will be provided with radiology test) MRI Brain Inject, intravenously, once for 1 dose.No IV access, insert saline lock prior to beginning of sedation, infusion, injection of imaging exam.Discontinue saline lock post exam. If Pt. has a central line or IVAD, may access for administration according to line specific nursing protocol.Once exam is complete flush line and de-access according to line specific nursing protocol in the MR contrast administration guidelines link - ondansetron (ZOFRAN) 8 mg tablet Take one tablet by mouth one hour prior to chemo. May repeat dose every 8-12 hours if needed to prevent nausea - meclizine (ANTIVERT) 25 mg tab Take 1 tablet by mouth three times a day. - valACYclovir (VALTREX) 1 gram tablet Take 1,000 mg by mouth three times a day. - midazolam (NAYZILAM) 5 mg/spray (0.1 mL) nasal spray Use 1 [place] in the nose as needed for up to 10 days. May repeat dose in alternate nostril after 10 minutes based on response and tolerability. - sennosides (SENNA ORAL) Take by mouth. - DIETARY SUPPLEMENT,MISC COMB14 ORAL Take by mouth. Biomega 1000mg containing vitamin E and pure anchovy - medical supply, miscellaneous (MISCELLANEOUS MEDICAL SUPPLY MIS) Neurotrophin - acetaminophen (TYLENOL) 325 mg tablet 2 tablets by ORAL/FEEDING TUBE route every 4 hours as needed for pain. - pantoprazole DR (PROTONIX) 20 mg tablet Take 1 tablet by mouth DAILY (6 AM). Problem List As Of Date 06/16/2024 Noted Resolved Chest pain [R07.9] 04/25/2010 05/26/2024 Brain mass [G93.89] 03/17/2023 11/17/2023 Obesity, Class I, BMI 30-34.9 [E66.811] 03/17/2023 Brain compression (HCC) [G93.5] 03/20/2023 S/P brain surgery [Z98.890] 03/20/2023 11/17/2023 At risk for seizures [Z91.89] 03/20/2023 Cerebral edema (HCC) [G93.6] 03/20/2023 GBM (glioblastoma multiforme) (HCC) [C71.9] 04/07/2023 Syncope, unspecified syncope type [R55] 11/01/2023 11/03/2023 Examination of participant in clinical trial [Z*11/05/2023 11/17/2023 Forehead pain [R51.9] 11/05/2023 PONV (postoperative nausea and vomiting) [R11.2*05/26/2024 Acute post-operative pain [G89.18] 05/29/2024 Visit Notes: >> Karla Pedroza MA [facility] Jun 16, 2024 11:55 AM Status: Signed Additional intake questions: Has the patient had fever, nausea, vomiting, diarrhea, constipation, fatigue for > 1 week? No Does the patient have a decreased appetite? No Does patient want to see a Outside Solar Sales Consultant? No (yes to any of above refer patient to schedulers for dietitian appointment) ) Does patient have any new or increased numbness or tingling of extremities? No Is patient interested in fertility information? No Does patient need any prescription refills? Yes, LIP notified Does patient have an advanced directive in place? No, Patient referred to Resource Center Electronically Signed By: Karla Pedroza MA Encounter Status:Closed by PATRICIA ENRIQUEZ on 06/16/24 PROGRESS Observed: 06/16/2024 10:54 AM Status: COMPLETED [facility] [id number] Author: NADEEN BECKETT RN Service: ? 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 Enriquez Study start date: 05/24/2024 (start of Pre-Op Methimazole) Date: 06/16/2024 - Cycle 1 Day 1 C1D1 is 10-28 days post surgery: YES Accompanied by: self Denies numbness, weakness, gait imbalance, seizures, headaches, or visual disturbances. Denies SOB, no edema, no falls. HANDP, neuro exam: Dr. Enriquez Was physical and neuro exam completed by a resident or fellow?: NO Change in KPS: NO; Patient's KPS: 80: Normal activity with effort; some signs or symptoms of disease Steroid dose: Dexamethasone 4mgQD for 2 more days then STOP. Changes in medication regimen: No Any new thyroid medications added to regimen: No Hypothyroidism symptoms may include: Tiredness. More sensitivity to cold. Constipation. Dry skin. Weight gain. Puffy face. Hoarse voice. Coarse hair and skin. Muscle weakness. Muscle aches, tenderness and stiffness. Menstrual cycles that are heavier than usual or irregular. Thinning hair. Slowed heart rate, also called bradycardia. Depression. Memory problems. Does patient have any signs or symptoms of hypothyroidism: No Hyperthyroidism sometimes looks like other health problems: Losing weight without trying. Fast heartbeat, a condition called tachycardia. Irregular heartbeat, also called arrhythmia. Pounding of the heart, sometimes called heart palpitations. Increased hunger. Nervousness, anxiety and irritability. Tremor, usually a small trembling in the hands and fingers. Sweating. Changes in menstrual cycles. Increased sensitivity to heat. Changes in bowel patterns, especially more-frequent bowel movements. Enlarged thyroid gland, sometimes called a goiter, which may appear as a swelling at the base of the neck. Tiredness. Muscle weakness. Sleep problems. Warm, moist skin. Thinning skin. Fine, brittle hair. Does patient have any signs or symptoms of hyperthyroidism: No Vitals in clinic: 06/16/2024 11:56 AM ONCOLOGY VITALS (ALL DEPTS) Temp 36.9 ?C (98.4 ?F) Pulse 91 Resp 18 SYSTOLIC 126 DIASTOLIC 79 SpO2 97 % Height 177.4 cm (5' 9.84) Height 70 in Height 177.4 cm WEIGHT (lb) 220 lb 0.3 oz WEIGHT (kg) 99.8 kg BSA (Mosteller Formula) 2.22 m2 BMI 31.71 kg/m2 Weight obtained: YES Labs: Latest Ref Rn 06/16/2024 9:52 AM WBC 3.70 - 11.00 k/uL 9.46 RBC 4.20 - 6.00 m/uL 4.25 Hemoglobin 13.0 - 17.0 g/dL 13.9 Hematocrit 39.0 - 51.0 % 39.8 MCV 80.0 - 100.0 fL 93.6 MCH 26.0 - 34.0 pg 32.7 MCHC 30.5 - 36.0 g/dL 34.9 RDW-CV 11.5 - 15.0 % 14.5 Platelet Count 150 - 400 k/uL 171 MPV 9.0 - 12.7 fL 8.9 (L) Neut% % 84.2 Abs Neut (ANC) 1.45 - 7.50 k/uL 7.97 (H) Lymph% % 7.2 Abs Lymph 1.00 - 4.00 k/uL 0.68 (L) Branch% % 6.6 Abs Branch <0.87 k/uL 0.62 Eosin% % 1.1 Abs Eosin <0.46 k/uL 0.10 Baso% % 0.1 Abs Baso <0.11 k/uL <0.03 Immature Gran % % 0.8 IMMATURE GRANS (ABS) <0.10 k/uL 0.08 NRBC /100 WBC 0.0 Absolute nRBC <0.01 k/uL <0.01 DTYPE Auto Protein, Total 6.3 - 8.0 g/dL 5.9 (L) Albumin 3.9 - 4.9 g/dL 3.4 (L) Calcium 8.5 - 10.2 mg/dL 8.2 (L) Bilirubin, Total 0.2 - 1.3 mg/dL 0.6 Alkaline Phosphatase 38 - 113 U/L 64 AST 14 - 40 U/L 11 (L) ALT 10 - 54 U/L 21 Glucose 74 - 99 mg/dL 97 BUN 9 - 24 mg/dL 23 Creatinine 0.73 - 1.22 mg/dL 1.05 Sodium 136 - 144 mmol/L 135 (L) Potassium 3.7 - 5.1 mmol/L 4.0 Chloride 98 - 107 mmol/L 104 CO2 22 - 30 mmol/L 21 (L) Anion Gap 8 - 15 mmol/L 10 eGFR >=60 mL/min/1.73m? 84 Free T4 0.9 - 1.7 ng/dL 1.5 T4 5.5 - 10.2 ug/dL 6.1 Free T3 2.3 - 4.1 pg/mL 2.7 T3 79 - 165 ng/dL 91 TSH 0.270 - 4.200 mIU/L 1.990 Legend: (L) Low (H) High TFTs (TSH, T3, T4, free T3 and free T4) reviewed and appropriate to continue Methimazole: YES Baseline CrCl (05/12/2024): 99 ml/min (based on sCr of 1.20 mg/dL) Today's CrCl (06/16/2024): 112 ml/min (based on sCr of 1.05 mg/dL) CrCl is >= 50 ml/min to start: YES Out out of range values: NCS Negative Serum test, if applicable: N/A Correlative study lab (up to 3 days before starting drug) has been: Completed, 06/16/2024 Trial Medications: (1) Investigational Methimazole Cycle 1 Day 1 Orders signed for Methimazole to begin for Cycle 1 Day 1: YES Patient is dose level: 2 Dose level - Methimazole - Cycle 1 -1 10 mg daily, 10-28 days post 1 15 mg daily, 10-28 days post 2 25 mg daily, 10-28 days post Methimazole dispensed today by [facility] pharmacy and patient has brought medication to clinic visit: YES Patient received 2 bottles of Methimazole (one 10 mg strength, one 5 mg strength). Each 10mg bottle contains 60 tablets and each 5mg bottle contains 30 tablets , for a total dose of 90 tablets. Patient is aware to keep pill bottle and return to research staff as drug will be destroyed on site following return of unused medication: CORRECT Methimazole may be taken with or without food but it must be swallowed whole without crushing or chewing: Take two 10 mg tablets and ONE 5mg tablet for a total dose of 25 mg, daily for a 28-day cycle. (2) Physician's Choice Medication: Lomustine Orders signed for 06/20/2024 to begin Cycle 1 Day 1: YES -Procarbazine 100 mg on D1-D7 of 21-day cycle -Temozolomide 150 mg/m2 on D1-D5 of 28-day cycle -Lomustine 110 mg/m2 on D1 of 42-day cycle for 200mg (per Dr. Enriquez) + Avastin Returned Medication (Pre-OP/Post-OP): - complete Pre-OP Methimazole taken from 05/24/2024 to 05/27/2024 Post-OP Methimazole taken from 05/27/2024 to 06/15/2024 Patient returned 2 bottles (one 10 mg strength, one 5 mg strength) with 0 capsules remaining from Pre/Post-Op administration. Leftover drug will be destroyed on site ([facility]) following return of unused medication: CORRECT Was any Methimazole dose changed, missed, reduced or held in the Pre/Post-OP stage: No Completed treatments: Pre-Op Methimazole (Dose Level 2; 25 mg daily): 05/24/2024 to 06/15/2024 (including DAY of surgery) Surgical Resection by Dr. Evans: 05/27/2024 Post-Op Methimazole (Dose Level 2; 25 mg daily): 05/27/2024 (POD1) to 06/15/2024 Ongoing AE Grade Scale Assessment - CTCAE v.5: Neuro, other (thought process changes) - Grade 1 - Baseline; Probable to study disease. Symptom is: Controlled with no intervention; Approximately started: 03/16/2023 to present; Baseline at screening 04/09/2023 Seizures (at risk for) - Grade 1 - Baseline; Unrelated to historical disorder/disease; Probable to study disease. 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 Symptom is: Controlled with lifestyle changes; Approximately started: 05/12/2024 to present; Baseline at screening 05/12/2024; upgraded to grade 2 on 05/26/2024; Current status: Ongoing - worsening. stable NEW AEs: Hypocalcemia - Grade 1 - Possible to Methimazole, Unlikely to study disease. Symptom is: Controlled; Start date: 06/16/2024; Action required for AE: NO; Intervention required: none; Current status/outcome: Ongoing - stable Decreased AST - Grade 1 - unlikely to Methimazole, Unlikely to study disease. Symptom is: Controlled; Start date: 06/16/2024; Action required for AE: NO; Intervention required: none; Current status/outcome: Ongoing - stable Hyponatremia - Grade 1 - unlikely to Methimazole, Unlikely to study disease. Symptom is: Controlled; Start date: 06/16/2024; Action required for AE: NO; Intervention required: none; Current status/outcome: Ongoing - stable RESOLVED AEs: none CHUCHO Review: Based on CTCAE above, does patient a protocol defined methimazole-related AE Dose-Limiting Toxicity (CHUCHO) that occurred from the first day of treatment to end of Cycle 1: NO Presence of Grade 4 neutropenia lasting > 7 days: NO Presence of Grade 3 or 4 neutropenia complicated by fever >38.0?C or infection: NO Presence of Grade 4 thrombocytopenia: NO Presence of Grade 3 thrombocytopenia complicated by hemorrhage: NO Presence of Grade 3 or 4 anemia: NO Presence of Grade >3 AST/ALT elevation [exceptions may be made for transient (e.g. lasting < 7 days)]: NO Presence of Grade 3 or 4 non-hematologic toxicity (excluding fatigue or anorexia lasting < 7 days, or Grade 3 nausea and/or vomiting that persists for < 2 days following appropriate supportive care): NO Patient does continue to meet eligibility to proceed with therapy per Dr. Enriquez: YES Discharged in apparent satisfactory condition. All questions answered. Patient agree to call with questions, concerns, change in symptoms. Patient agreed to call with any symptoms or side effects not mentioned. Patient agreed to plan. Patient has the contact information for treating physician, research staff and the 24-hour Xwchlyisun-[id number]-[id number] number ([phone] or ) for the Heme/Onc Fellow. Upcoming appointments: - Cycle 2 MRI 07/14/2024 - Cycle 2 Day 1 (End of CHUCHO period) Nadeen Beckett RN 06/16/2024 10:55 AM Chart routed to Dr. Enriquez (Primary): YES COMP METAB 2000 PNL SERPL Collected: 9:52 AM Status: F Source: [facility] Order Comment: Specimen Type : BLOOD SPECIMEN Ordering Facility: [facility] Address: [address] [place] [address] TYPE CODE TESTS RESULT OUT OF RANGE REFERENCE UNITS LAB 2885-2(LOINC) Prot SerPl-mCnc 5.9 Low 6.3-8.0 g/dL LAB 1751-7(LOINC) Albumin SerPl-mCnc 3.4 Low 3.9-4.9 g/dL LAB 98674-2(LOINC) Calcium SerPl-mCnc 8.2 Low 8.5-10.2 mg/dL LAB 1975-2(LOINC) Bilirub SerPl-mCnc 0.6 0.2-1.3 mg/dL LAB 6768-6(LOINC) ALP SerPl-cCnc 64 38-113 U/L LAB 1920-8(LOINC) AST SerPl-cCnc 11 Low 14-40 U/L LAB 1742-6(LOINC) ALT SerPl-cCnc 21 10-54 U/L LAB 2345-7(LOINC) Glucose SerPl-mCnc 97 74-99 mg/dL Result Comment: The [place] Diabetes Association (ADA) provides guidance for cutoff values for fasting glucose and random glucose. The ADA defines fasting as no caloric intake for at least 8 hours. Fasting plasma glucose results between 100 to 125 mg/dL indicate increased risk for diabetes (prediabetes). Fasting plasma glucose results greater than or equal to 126 mg/dL meet the criteria for diagnosis of diabetes. In the absence of unequivocal hyperglycemia, results should be confirmed by repeat testing. In a patient with classic symptoms of hyperglycemia or hyperglycemic crisis, random plasma glucose results greater than or equal to 200 mg/dL meet the criteria for diagnosis of diabetes. Reference: Standards of Medical Care in Diabetes 2016, [place] Diabetes Association. Diabetes Care. 2016.39(Suppl 1). LAB 3094-0(LOINC) BUN SerPl-mCnc 23 9-24 mg/ dL LAB 2160-0(LOINC) Creat SerPl-mCnc 1.05 0.73-1.22 mg/dL LAB 2951-2(LOINC) Sodium SerPl-sCnc 135 Low 136-144 mmol/L LAB 2823-3(LOINC) Potassium SerPl-sCnc 4.0 3.7-5.1 mmol/L LAB 2075-0(LOINC) Chloride SerPl-sCnc 104 98-107 mmol/L LAB 2027-9(LOINC) CO2 SerPl-sCnc 21 Low 22-30 mmo l/L LAB 72847-7(LOINC) Anion Gap SerPl-sCnc 10 8-15 mmol/L LAB 27352-4(LOINC) Creatinine + eGFR Pnl SerPlBld 84 >=60 mL/min/1 .73m??? Result Comment: Estimated Gl omerular Filtration Rate (eGFR) is calculated using the 2020 CKD-EPI creatinine equation. This equation utilizes serum creatinine, sex, and age as parameters. The creatinine assay has traceable calibration to isotope dilution-mass spectrometry. Refer to KDIGO guidelines for clinical interpretation. In patients with unstable renal function, e.g. those with acute kidney injury, the eGFR may not accurately reflect actual GFR. Performed By: #### 60242-7 # ### [facility] CLIA [id number] [address] [place] [address] [place] TSH SERPL-ACNC Collected: 4 9:52 AM Status: F Source: [facility] Order Comment: Specimen Type : BLOOD SPECIMEN Ordering Facility: [facility] Address: [address] [place] [address] TYPE CODE TESTS RESULT OUT OF RANGE REFERENCE UNITS LAB 3016-3([facility]) TSH SerPl-aCnc 1.990 0.270-4.200 mIU/L Performed By: #### 3016-3 ## ## [facility] CLIA [id number] [address] [place] [address] [place] T3FREE SERPL-MCNC Collected: 06/16/2024 9:52 AM Stat us: F Source: [facility] Order Comment: Specimen Type : BLOOD SPECIMEN Ordering Facility: [facility] Address: [address] [place] [address] TYPE CODE TESTS RESULT OUT OF RANGE REFERENCE UNITS LAB 3051-0(LOINC) T3Free SerPl-mCnc 2.7 2.3-4.1 pg/mL Performed By: #### 3053-6, 3 026-2, 3051-0, 302-7 #### [facility] CLIA [id number] [address] [place] [address] [place] T4 FREE SERPL-MCNC Collected: 06/16/2024 9:52 AM Sta tus: F Source: [facility] Comment: Specimen Type : BLOOD SPECIMEN Ordering Facility: [facility] Address: [address] [place] [address] TYPE CODE TESTS RESULT OUT OF RANGE REFERENCE UNITS LAB 3024-7(LOINC) T4 Free SerPl-mCnc 1.5 0.9-1.7 ng/dL Performed By: #### 3053-6, 3 026-2, 3051-0, 302-7 #### [facility] CLIA [id number] [address] [place] [address] [place] T3 SERPL-MCNC Collected: 06/16/2024 9:52 AM Status: F Source: [facility] Order Comment: Specimen Type : BLOOD SPECIMEN Ordering Facility: [facility] Address: [address] [place] [address] TYPE CODE TESTS RESULT OUT OF RANGE REFERENCE UNITS LAB 3053-6(LOINC) T3 SerPl-mCnc 91 79-165 ng/d L Performed By: #### 3053-6, 3 026-2, 3051-0, 302-7 #### [facility] CLIA [id number] [address] [place] [address] [place] T4 SERPL-MCNC Collected: 06/16/2024 9:52 AM Status: F Source: [facility] Order Comment: Specimen Type : BLOOD SPECIMEN Ordering Facility: [facility] Address: [address] [place] [address] TYPE CODE TESTS RESULT OUT OF RANGE REFERENCE UNITS LAB 3026-2([facility]) T4 SerPl-mCnc 6.1 5.5-10.2 ug/ dL Performed By: #### 3053-6, 3 026-2, 3051-0, 3024-7 #### [facility] CLIA [id number] [address] [place] [address] [place] [id number] [place] CBC W AUTO DIFF BLD Collected: 06/16/2024 9:[address] atus: F Source: [facility] Order Comment: Specimen Type : BLOOD SPECIMEN Ordering Facility: [facility] Address: [address] [place] [address] TYPE CODE TESTS RESULT OUT OF RANGE REFERENCE UNITS LAB 6690-2([facility]) WBC # Bld Auto 9.46 3.70-11.00 k/uL LAB 789-8([facility]) RBC # Bld Auto 4.25 4.20-6.00 m/ uL LAB 718-7([facility]) Hgb Bld-mCnc 13.9 13.0-17.0 g/dL LAB 4544-3([facility]) Hct VFr Bld Auto 39.8 39.0-51.0 % LAB 787-2([facility]) MCV RBC Auto 93.6 80.0-100.0 fL LAB 785-6([facility]) MCH RBC Qn Auto 32.7 26.0-34.0 p g LAB 786-4([facility]) MCHC RBC Auto-mCnc 34.9 30.5-36.0 g/dL LAB 61619-3([facility]) RDW RBC-Rto 14.5 11.5-15.0 % LAB 777-3([facility]) Platelet # Bld Auto 171 150-400 k/uL LAB 92003-4([facility]) PMV Bld Auto 8.9 Low 9.0-12.7 fL LAB 770-8([facility]) Neutrophils/leuk NFr Bld Auto 84.2 % LAB 751-8(INC) Neutrophils # Bld Auto 7.97 High 1.45-7.50 k/uL LAB 736-9(LOINC) Lymphocytes/leuk NFr Bld Auto 7.2 % LAB 731-0(LOINC) Lymphocytes # Bld Auto 0.68 Low 1.00-4.00 k/uL LAB 5905-5(LOINC) Monocytes/leuk NFr Bld Auto 6.6 % LAB 742-7(LOINC) Monocytes # Bld Auto 0.62 <0.87 k/uL LAB 713-8(LOINC) Eosinophil/leuk NFr Bld Auto 1.1 % LAB 711-2(LOINC) Eosinophil # Bld Auto 0.10 <0.46 k/uL LAB 706-2(LOINC) Basophils/leuk NFr Bld Auto 0.1 % LAB 704-7(LOINC) Basophils # Bld Auto <0.03 <0.11 k/uL LAB 80023-8(LOINC) Imm Granulocytes/christina k NFr Bld Auto 0.8 % LAB 93623-3(LOINC) Imm Granulocytes # Bld Auto 0.08 <0.10 k/uL LAB 20512-5(LOINC) nRBC/100 WBC Bld-Rto 0.0 /100 WBC LAB 771-6(LOINC) nRBC # Bld Auto <0.01 <0.01 k/u L LAB 30414-3(LOINC) Differential method Bld Auto Performed By: #### 54864-7 # ### [facility] [place] [id number] [address] [place] [address] [place] CNNURSE Observed: 06/16/2024 12:00 AM Status: COMPLETED Source: [facility] Nurse Visit (NSCAMN) ANGEL KEATING ([id number]) 1970 M Date Time Provider Department 06/16/24 NADEEN BECKETT [facility] During your visit today, we recorded the following information about you: Nadeen Beckett RN 06/17/2024 4:17 PM Signed IRB#: [id number] Case 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 Enriquez Study start date: 05/24/2024 (start of Pre-Op Methimazole) Date: 06/16/2024 - Cycle 1 Day 1 C1D1 is 10-28 days post surgery: YES Accompanied by: self Denies numbness, weakness, gait imbalance, seizures, headaches, or visual disturbances. Denies SOB, no edema, no falls. HANDP, neuro exam: Dr. Enriquez Was physical and neuro exam completed by a resident or fellow?: NO Change in KPS: NO; Patient's KPS: 80: Normal activity with effort; some signs or symptoms of disease Steroid dose: Dexamethasone 4mgQD for 2 more days then STOP. Changes in medication regimen: No Any new thyroid medications added to regimen: No Hypothyroidism symptoms may include: Tiredness. More sensitivity to cold. Constipation. Dry skin. Weight gain. Puffy face. Hoarse voice. Coarse hair and skin. Muscle weakness. Muscle aches, tenderness and stiffness. Menstrual cycles that are heavier than usual or irregular. Thinning hair. Slowed heart rate, also called bradycardia. Depression. Memory problems. Does patient have any signs or symptoms of hypothyroidism: No Hyperthyroidism sometimes looks like other health problems: Losing weight without trying. Fast heartbeat, a condition called tachycardia. Irregular heartbeat, also called arrhythmia. Pounding of the heart, sometimes called heart palpitations. Increased hunger. Nervousness, anxiety and irritability. Tremor, usually a small trembling in the hands and fingers. Sweating. Changes in menstrual cycles. Increased sensitivity to heat. Changes in bowel patterns, especially more-frequent bowel movements. Enlarged thyroid gland, sometimes called a goiter, which may appear as a swelling at the base of the neck. Tiredness. Muscle weakness. Sleep problems. Warm, moist skin. Thinning skin. Fine, brittle hair. Does patient have any signs or symptoms of hyperthyroidism: No Vitals in clinic: 06/16/2024 11:56 AM ONCOLOGY VITALS (ALL DEPTS) Temp 36.9 ?C (98.4 ?F) Pulse 91 Resp 18 SYSTOLIC 126 DIASTOLIC 79 SpO2 97 % Height 177.4 cm (5' 9.84) Height 70 in Height 177.4 cm WEIGHT (lb) 220 lb 0.3 oz WEIGHT (kg) 99.8 kg BSA (Mosteller Formula) 2.22 m2 BMI 31.71 kg/m2 Weight obtained: YES Labs: Latest Ref Rng 06/16/2024 9:52 AM WBC 3.70 - 11.00 k/uL 9.46 RBC 4.20 - 6.00 m/uL 4.25 Hemoglobin 13.0 - 17.0 g/dL 13.9 Hematocrit 39.0 - 51.0 % 39.8 MCV 80.0 - 100.0 fL 93.6 MCH 26.0 - 34.0 pg 32.7 MCHC 30.5 - 36.0 g/dL 34.9 RDW-CV 11.5 - 15.0 % 14.5 Platelet Count 150 - 400 k/uL 171 MPV 9.0 - 12.7 fL 8.9 (L) Neut% % 84.2 Abs Neut (ANC) 1.45 - 7.50 k/uL 7.97 (H) Lymph% % 7.2 Abs Lymph 1.00 - 4.00 k/uL 0.68 (L) Branch% % 6.6 Abs Branch <0.87 k/uL 0.62 Eosin% % 1.1 Abs Eosin <0.46 k/uL 0.10 Baso% % 0.1 Abs Baso <0.11 k/uL <0.03 Immature Gran % % 0.8 IMMATURE GRANS (ABS) <0.10 k/uL 0.08 NRBC /100 WBC 0.0 Absolute nRBC <0.01 k/uL <0.01 DTYPE Auto Protein, Total 6.3 - 8.0 g/dL 5.9 (L) Albumin 3.9 - 4.9 g/dL 3.4 (L) Calcium 8.5 - 10.2 mg/dL 8.2 (L) Bilirubin, Total 0.2 - 1.3 mg/dL 0.6 Alkaline Phosphatase 38 - 113 U/L 64 AST 14 - 40 U/L 11 (L) ALT 10 - 54 U/L 21 Glucose 74 - 99 mg/dL 97 BUN 9 - 24 mg/dL 23 Creatinine 0.73 - 1.22 mg/dL 1.05 Sodium 136 - 144 mmol/L 135 (L) Potassium 3.7 - 5.1 mmol/L 4.0 Chloride 98 - 107 mmol/L 104 CO2 22 - 30 mmol/L 21 (L) Anion Gap 8 - 15 mmol/L 10 eGFR >=60 mL/min/1.73m? 84 Free T4 0.9 - 1.7 ng/dL 1.5 T4 5.5 - 10.2 ug/dL 6.1 Free T3 2.3 - 4.1 pg/mL 2.7 T3 79 - 165 ng/dL 91 TSH 0.270 - 4.200 mIU/L 1.990 Legend: (L) Low (H) High TFTs (TSH, T3, T4, free T3 and free T4) reviewed and appropriate to continue Methimazole: YES Baseline CrCl (05/12/2024): 99 ml/min (based on sCr of 1.20 mg/dL) Today's CrCl (06/16/2024): 112 ml/min (based on sCr of 1.05 mg/dL) CrCl is >= 50 ml/min to start: YES Out out of range values: NCS Negative Serum test, if applicable: N/A Correlative study lab (up to 3 days before starting drug) has been: Completed, 06/16/2024 Trial Medications: (1) Investigational Methimazole Cycle 1 Day 1 Orders signed for Methimazole to begin for Cycle 1 Day 1: YES Patient is dose level: 2 Dose level - Methimazole - Cycle 1 -1 10 mg daily, 10-28 days post 1 15 mg daily, 10-28 days post 2 25 mg daily, 10-28 days post Methimazole dispensed today by [facility] pharmacy and patient has brought medication to clinic visit: YES Patient received 2 bottles of Methimazole (one 10 mg strength, one 5 mg strength). Each 10mg bottle contains 60 tablets and each 5mg bottle contains 30 tablets , for a total dose of 90 tablets. Patient is aware to keep pill bottle and return to research staff as drug will be destroyed on site following return of unused medication: CORRECT Methimazole may be taken with or without food but it must be swallowed whole without crushing or chewing: Take two 10 mg tablets and ONE 5mg tablet for a total dose of 25 mg, daily for a 28-day cycle. (2) Physician's Choice Medication: Lomustine Orders signed for 06/20/2024 to begin Cycle 1 Day 1: YES -Procarbazine 100 mg on D1-D7 of 21-day cycle -Temozolomide 150 mg/m2 on D1-D5 of 28-day cycle -Lomustine 110 mg/m2 on D1 of 42-day cycle for 200mg (per Dr. Enriquez) + Avastin Returned Medication (Pre-OP/Post-OP): - complete Pre-OP Methimazole taken from 05/24/2024 to 05/27/2024 Post-OP Methimazole taken from 05/27/2024 to 06/15/2024 Patient returned 2 bottles (one 10 mg strength, one 5 mg strength) with 0 capsules remaining from Pre/Post-Op administration. Leftover drug will be destroyed on site ([facility]) following return of unused medication: CORRECT Was any Methimazole dose changed, missed, reduced or held in the Pre/Post-OP stage: No Completed treatments: Pre-Op Methimazole (Dose Level 2; 25 mg daily): 05/24/2024 to 06/15/2024 (including DAY of surgery) Surgical Resection by Dr. Evans: 05/27/2024 Post-Op Methimazole (Dose Level 2; 25 mg daily): 05/27/2024 (POD1) to 06/15/2024 Ongoing AE Grade Scale Assessment - CTCAE v.5: Neuro, other (thought process changes) - Grade 1 - Baseline; Probable to study disease. Symptom is: Controlled with no intervention; Approximately started: 03/16/2023 to present; Baseline at screening 04/09/2023 Seizures (at risk for) - Grade 1 - Baseline; Unrelated to historical disorder/disease; Probable to study disease. 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 Symptom is: Controlled with lifestyle changes; Approximately started: 05/12/2024 to present; Baseline at screening 05/12/2024; upgraded to grade 2 on 05/26/2024; Current status: Ongoing - worsening. stable NEW AEs: Hypocalcemia - Grade 1 - Possible to Methimazole, Unlikely to study disease. Symptom is: Controlled; Start date: 06/16/2024; Action required for AE: NO; Intervention required: none; Current status/outcome: Ongoing - stable Decreased AST - Grade 1 - unlikely to Methimazole, Unlikely to study disease. Symptom is: Controlled; Start date: 06/16/2024; Action required for AE: NO; Intervention required: none; Current status/outcome: Ongoing - stable Hyponatremia - Grade 1 - unlikely to Methimazole, Unlikely to study disease. Symptom is: Controlled; Start date: 06/16/2024; Action required for AE: NO; Intervention required: none; Current status/outcome: Ongoing - stable RESOLVED AEs: none CHUCHO Review: Based on CTCAE above, does patient a protocol defined methimazole-related AE Dose-Limiting Toxicity (CHUCHO) that occurred from the first day of treatment to end of Cycle 1: NO Presence of Grade 4 neutropenia lasting > 7 days: NO Presence of Grade 3 or 4 neutropenia complicated by fever >38.0?C or infection: NO Presence of Grade 4 thrombocytopenia: NO Presence of Grade 3 thrombocytopenia complicated by hemorrhage: NO Presence of Grade 3 or 4 anemia: NO Presence of Grade >3 AST/ALT elevation [exceptions may be made for transient (e.g. lasting < 7 days)]: NO Presence of Grade 3 or 4 non-hematologic toxicity (excluding fatigue or anorexia lasting < 7 days, or Grade 3 nausea and/or vomiting that persists for < 2 days following appropriate supportive care): NO Patient does continue to meet eligibility to proceed with therapy per Dr. Enriquez: YES Discharged in apparent satisfactory condition. All questions answered. Patient agree to call with questions, concerns, change in symptoms. Patient agreed to call with any symptoms or side effects not mentioned. Patient agreed to plan. Patient has the contact information for treating physician, research staff and the 24-hour [id number]-[id number]-[id number] number ([phone] or ) for the Heme/Onc Fellow. Upcoming appointments: - Cycle 2 MRI 07/14/2024 - Cycle 2 Day 1 (End of CHUCHO period) Nadeen Beckett RN 06/16/2024 10:55 AM Chart routed to Dr. Enriquez (Primary): YES Allergies As of Date: 06/16/2024 (No Known Allergies) Date Reviewed: 06/16/2024 Reviewed by: Karla Pedroza MA - Fully Assessed Primary Visit Diagnosis:GBM (glioblastoma multiforme) (HCC) [C71.9] Prescriptions as of 06/20/2024 - methIMAzole (TAPAZOLE) 5 mg tablet Take TWO 10 mg tablets and ONE 5 mg tablet for a total dose of 25 mg, daily. - methIMAzole (TAPAZOLE) 10 mg tablet Take TWO 10 mg tablets and ONE 5 mg tablet for a total dose of 25 mg, daily. - lacosamide (VIMPAT) 150 mg tab Take 1 tablet by mouth two times a day. - lomustine (GLEOSTINE) 100 mg capsule Take one 8 mg Zofran on an empty stomach in the evening. Wait ONE hour. Take TWO 100 mg capsule(s) by mouth for a total dose of 200 mg. Take one 8 mg Zofran twenty-four hours later. Take on Day 1 of each 42 day cycle. - iv contrast (will be provided with radiology test) MRI Brain Inject, intravenously, once for 1 dose.No IV access, insert saline lock prior to beginning of sedation, infusion, injection of imaging exam.Discontinue saline lock post exam. If Pt. has a central line or IVAD, may access for administration according to line specific nursing protocol.Once exam is complete flush line and de-access according to line specific nursing protocol in the MR contrast administration guidelines link - dexAMETHasone (DECADRON) 2 mg tablet Take 4 tablets by mouth two times a day with meals for 4 days, THEN 3 tablets two times a day with meals for 4 days, THEN 2 tablets two times a day with meals for 4 days, THEN 1 tablet two times a day with meals. - iv contrast (will be provided with radiology test) MRI Brain Inject, intravenously, once for 1 dose.No IV access, insert saline lock prior to beginning of sedation, infusion, injection of imaging exam.Discontinue saline lock post exam. If Pt. has a central line or IVAD, may access for administration according to line specific nursing protocol.Once exam is complete flush line and de-access according to line specific nursing protocol in the MR contrast administration guidelines link - ondansetron (ZOFRAN) 8 mg tablet Take one tablet by mouth one hour prior to chemo. May repeat dose every 8-12 hours if needed to prevent nausea - meclizine (ANTIVERT) 25 mg tab Take 1 tablet by mouth three times a day. - valACYclovir (VALTREX) 1 gram tablet Take 1,000 mg by mouth three times a day. - midazolam (NAYZILAM) 5 mg/spray (0.1 mL) nasal spray Use 1 [place] in the nose as needed for up to 10 days. May repeat dose in alternate nostril after 10 minutes based on response and tolerability. - sennosides (SENNA ORAL) Take by mouth. - DIETARY SUPPLEMENT,MISC COMB14 ORAL Take by mouth. Biomega 1000mg containing vitamin E and pure anchovy - medical supply, miscellaneous (MISCELLANEOUS MEDICAL SUPPLY MISC) Neurotrophin - acetaminophen (TYLENOL) 325 mg tablet 2 tablets by ORAL/FEEDING TUBE route every 4 hours as needed for pain. - pantoprazole DR (PROTONIX) 20 mg tablet Take 1 tablet by mouth DAILY (6 AM). Problem List As Of Date 06/16/2024 Noted Resolved Chest pain [R07.9] 04/25/2010 05/26/2024 Brain mass [G93.89] 03/17/2023 11/17/2023 Obesity, Class I, BMI 30-34.9 [E66.811] 03/17/2023 Brain compression (HCC) [G93.5] 03/20/2023 S/P brain surgery [Z98.890] 03/20/2023 11/17/2023 At risk for seizures [Z91.89] 03/20/2023 Cerebral edema (HCC) [G93.6] 03/20/2023 GBM (glioblastoma multiforme) (HCC) [C71.9] 04/07/2023 Syncope, unspecified syncope type [R55] 11/01/2023 11/03/2023 Examination of participant in clinical trial [Z*11/05/2023 11/17/2023 Forehead pain [R51.9] 11/05/2023 PONV (postoperative nausea and vomiting) [R11.2*05/26/2024 Acute post-operative pain [G89.18] 05/29/2024 Encounter Status:Closed by NADEEN BECKETT on 06/17/24 CNTRTM Observed: 06/16/2024 12:00 AM Status: COMPLETED Source: [facility] Treatment Team (NSCAMN) ANGEL KEATING ([id number]) 1970 M Date Time Provider Department 06/16/24 NADEEN BECKETT [facility] During your visit today, we recorded the following information about you: Nadeen Beckett RN 09/02/2024 12:22 PM Addendum Patient: Angel Keating : 1970 Prescription entered in [facility]: Yes Physician: Dr. Enriquez Pharmacy: [facility] Dose: Lomustine 200mg ----Lomustine and Anti-Emetic are SOC Study: IRB#: [id number] Case [id number] - Targeting Transsulfuration via Suppression of Thyroid Hormone Signaling in Progressive Glioblastoma; Modified Phase 1/2 and Pharmacodynamic Trial of Methimazole in Patients with Progressive WHO Grade 4 Glioblastoma Cycle: 1 Special instructions: Not to take until instructed by research or Dr. Fraire. Med AND Dose: Lomustine + Zofran 7.97ANC 171 PLT 2.22BSA Dose Level 1: 110 mg/m2 x BSA (2.22) = 244.2 mg rounded to [address] Enriquez. Lomustine 100 mg capsules (x2 pills) Zofran 8 mg (5 tablets) Instructions: Take one 8 mg Zofran on an empty stomach in the evening. Wait ONE hour. Take TWO 100mg capsule(s) of Lomustine for a total dose of 200 mg. Take one 8 mg Zofran twenty-four hours later. Take on Day 1 of each 42 day cycle. Take additional Zofran dose every 8 hours as needed for breakthrough nausea. PATIENT IS AWARE TO NOT TAKE Lomustine UNTIL INSTRUCTED BY RESEARCH. Patient education on medication: YES Allergies checked: YES Nadeen Beckett RN 06/16/2024 at 12:22 PM Medication pended and routed to Dr. Enriquez to sign: YES Allergies As of Date: 06/16/2024 (No Known Allergies) Date Reviewed: 06/16/2024 Reviewed by: Karla Pedroza MA - Fully Assessed Prescriptions as of 09/02/2024 - lomustine (GLEOSTINE) 100 mg capsule Take one 8mg Zofran on an empty stomach in the evening. Wait ONE hour. Take TWO 100mg capsule(s) Lomustine by mouth for a total dose of 200mg. Take one 8 mg Zofran twenty-four hours later. Take on Day 1 of each 42 day cycle. - lacosamide (VIMPAT) 150 mg tab Take 1 tablet by mouth two times a day. - methIMAzole (TAPAZOLE) 5 mg tablet Take TWO 10 mg tablets and ONE 5 mg tablet for a total dose of 25 mg, daily. - methIMAzole (TAPAZOLE) 10 mg tablet Take TWO 10 mg tablets and ONE 5 mg tablet for a total dose of 25 mg, daily. - triamcinolone (KENALOG) 0.025 % cream Apply to affected area two times a day. - traZODone (DESYREL) 50 mg tablet Take 1 tablet by mouth daily at bedtime. - predniSONE (DELTASONE) 10 mg tablet Day #1 - 6 tablets PO then Day #2 - 5 tablets PO then Day #3 - 4 tablets PO then Day #4 - 3 tablets PO then Day #5 - 2 tablets PO then Day #6 - 1 tablet PO - ondansetron (ZOFRAN) 8 mg tablet Take one tablet by mouth on an empty stomach in the evening one hour prior to chemo. Then take one tablet 24 hours after chemo. May repeat dose every 8-12 hours if needed to prevent nausea - meclizine (ANTIVERT) 25 mg tab Take 1 tablet by mouth three times a day. - valACYclovir (VALTREX) 1 gram tablet Take 1,000 mg by mouth three times a day. - midazolam (NAYZILAM) 5 mg/spray (0.1 mL) nasal spray Use 1 [place] in the nose as needed for up to 10 days. May repeat dose in alternate nostril after 10 minutes based on response and tolerability. - sennosides (SENNA ORAL) Take by mouth. - DIETARY SUPPLEMENT,MISC COMB14 ORAL Take by mouth. Biomega 1000mg containing vitamin E and pure anchovy - medical supply, miscellaneous (MISCELLANEOUS MEDICAL SUPPLY MIS) Neurotrophin - acetaminophen (TYLENOL) 325 mg tablet 2 tablets by ORAL/FEEDING TUBE route every 4 hours as needed for pain. - pantoprazole DR (PROTONIX) 20 mg tablet Take 1 tablet by mouth DAILY (6 AM). Problem List As Of Date 06/16/2024 Noted Resolved Chest pain [R07.9] 04/25/2010 05/26/2024 Brain mass [G93.89] 03/17/2023 11/17/2023 Obesity, Class I, BMI 30-34.9 [E66.811] 03/17/2023 Brain compression (HCC) [G93.5] 03/20/2023 S/P brain surgery [Z98.890] 03/20/2023 11/17/2023 At risk for seizures [Z91.89] 03/20/2023 Cerebral edema (HCC) [G93.6] 03/20/2023 GBM (glioblastoma multiforme) (HCC) [C71.9] 04/07/2023 Syncope, unspecified syncope type [R55] 11/01/2023 11/03/2023 Examination of participant in clinical trial [Z*11/05/2023 11/17/2023 Forehead pain [R51.9] 11/05/2023 PONV (postoperative nausea and vomiting) [R11.2*05/26/2024 Acute post-operative pain [G89.18] 05/29/2024 Encounter Status:Closed by NADEEN BECKETT on 06/16/24 TRINO Observed: 06/15/2024 12:00 AM Status: COMPLETED Source: [facility] Telephone (PSYCA2) ANGEL KEATING ([id number]) 1970 M Date Time Provider Department 06/15/24 JACLYN CAAL PSYCA2 During your visit today, we recorded the following information about you: Jaclyn Caal LSW 06/15/2024 3:54 PM Signed Social Work Problem Referral Note INFORMATION/REFERRAL : Angel Keating 53 year old male was referred [facility] to [facility] for the following reason(s): transportation PERSONS INTERVIEWED: patient INTERVENTION: Phone Contact Affect/Mood: The patient is noted as appropriate IMPRESSION/PLAN: SW received phone call from pt sharing that he needs transportation assistance for his [facility] appointments tomorrow morning that start at 10 a.m. Pt shares that usually his significant other drives him, but is unable to for tomorrow. SW completed a chart review and pt confirms his address, phone number, and that he is ambulatory and can get in and out of a vehicle without assistance. SW contacted Aleksey ramos and added pt to the approved list and also scheduled transportation for him to be picked up at 9:15 a.m. tomorrow morning and for the ride to be a flex ride so that he can get back home when finished with his appointments. Pt confirmed that his phone receives texts. Pt had no additional questions or concerns at this time for this SW. SW will continue to provide ongoing assessment and support as needed. F/U APPOINTMENT: PRN Jaclyn Sharan, FAMILY SERVICES SPECIALIST Allergies As of Date: 06/15/2024 (No Known Allergies) Date Reviewed: 05/29/2024 Reviewed by: Ruthy Lyles RN - Fully Assessed Reason for Visit: Social Work Consultation [[id number]] Prescriptions as of 06/15/2024 - iv contrast (will be provided with radiology test) MRI Brain Inject, intravenously, once for 1 dose.No IV access, insert saline lock prior to beginning of sedation, infusion, injection of imaging exam.Discontinue saline lock post exam. If Pt. has a central line or IVAD, may access for administration according to line specific nursing protocol.Once exam is complete flush line and de-access according to line specific nursing protocol in the MR contrast administration guidelines link - dexAMETHasone (DECADRON) 2 mg tablet Take 4 tablets by mouth two times a day with meals for 4 days, THEN 3 tablets two times a day with meals for 4 days, THEN 2 tablets two times a day with meals for 4 days, THEN 1 tablet two times a day with meals. - iv contrast (will be provided with radiology test) MRI Brain Inject, intravenously, once for 1 dose.No IV access, insert saline lock prior to beginning of sedation, infusion, injection of imaging exam.Discontinue saline lock post exam. If Pt. has a central line or IVAD, may access for administration according to line specific nursing protocol.Once exam is complete flush line and de-access according to line specific nursing protocol in the MR contrast administration guidelines link - methIMAzole (TAPAZOLE) 10 mg tablet Take TWO 10 mg tablets and ONE 5 mg tablet for a total dose of 25 mg, daily. - methIMAzole (TAPAZOLE) 5 mg tablet Take TWO 10 mg tablets and ONE 5 mg tablet for a total dose of 25 mg, daily. - ondansetron (ZOFRAN) 8 mg tablet Take one tablet by mouth one hour prior to chemo. May repeat dose every 8-12 hours if needed to prevent nausea - lacosamide (VIMPAT) 150 mg tab Take 1 tablet by mouth two times a day. - meclizine (ANTIVERT) 25 mg tab Take 1 tablet by mouth three times a day. - valACYclovir (VALTREX) 1 gram tablet Take 1,000 mg by mouth three times a day. - midazolam (NAYZILAM) 5 mg/spray (0.1 mL) nasal spray Use 1 [place] in the nose as needed for up to 10 days. May repeat dose in alternate nostril after 10 minutes based on response and tolerability. - sennosides (SENNA ORAL) Take by mouth. - DIETARY SUPPLEMENT,MISC COMB14 ORAL Take by mouth. Biomega 1000mg containing vitamin E and pure anchovy - medical supply, miscellaneous (MISCELLANEOUS MEDICAL SUPPLY MIS) Neurotrophin - acetaminophen (TYLENOL) 325 mg tablet 2 tablets by ORAL/FEEDING TUBE route every 4 hours as needed for pain. - pantoprazole DR (PROTONIX) 20 mg tablet Take 1 tablet by mouth DAILY (6 AM). Problem List As Of Date 06/15/2024 Noted Resolved Chest pain [R07.9] 04/25/2010 05/26/2024 Brain mass [G93.89] 03/17/2023 11/17/2023 Obesity, Class I, BMI 30-34.9 [E66.811] 03/17/2023 Brain compression (HCC) [G93.5] 03/20/2023 S/P brain surgery [Z98.890] 03/20/2023 11/17/2023 At risk for seizures [Z91.89] 03/20/2023 Cerebral edema (HCC) [G93.6] 03/20/2023 GBM (glioblastoma multiforme) (HCC) [C71.9] 04/07/2023 Syncope, unspecified syncope type [R55] 11/01/2023 11/03/2023 Examination of participant in clinical trial [Z*11/05/2023 11/17/2023 Forehead pain [R51.9] 11/05/2023 PONV (postoperative nausea and vomiting) [R11.2*05/26/2024 Acute post-operative pain [G89.18] 05/29/2024 Encounter Status:Closed by JACLYN CAAL on 06/15/24 EDSONN Observed: 06/14/2024 12:00 AM Status: COMPLETED Source: [facility] Telephone ([facility]) ANGEL KEATING ([id number]) 1970 M Date Time Provider Department 06/14/24 EUSEBIO RAMIREZ [facility] During your visit today, we recorded the following information about you: Eusebio Ramirez, BUDDY.MANUFACTURING ENGINEERING MANAGER 06/14/2024 7:45 AM Signed Based on your medical judgment of the clinical indicators outlined below, please clarify the condition: The documentation for this patient stated the followin03/20/2023 (prior to current admission) Neurosurgery Progress Note: Brain Compression: Improved s/p craniotomy, Expected to continue to improve with extended decadron taper... Cerebral Edema: Continue decadron 8mg BID with wean to 4mg BID at two weeks + protonix. 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 Endorses a noticeable sensation/awareness in his head onset 7-10 days ago, similar symptoms to 13 months ago. Plan for above surgery... Positive for: PATENT PARALEGAL tumor and seizures. 05/26/24 MRI Brain w/ IV Contrast: IMPRESSION: 1. Presurgical planning study. Compared to prior study there is interval increase in the masslike enhancement in the LEFT anteromedial temporal lobe, along with increasing edema/nonenhancing tumor. 2. The enhancing tumor appears to be encasing the LEFT MCA M1 and proximal M2 segments. 3. Increased mass effect and new minimal midline shift of approximately 1 mm towards RIGHT. Please clarify the diagnosis associated with the clinical indicators: Brain Compression and Cerebral Edema are pertinent diagnoses for this admission Allergies As of Date: 06/14/2024 (No Known Allergies) Date Reviewed: 05/29/2024 Reviewed by: Ruthy Lyles, VAZQUEZ - Fully Assessed Prescriptions as of 06/14/2024 - iv contrast (will be provided with radiology test) MRI Brain Inject, intravenously, once for 1 dose.No IV access, insert saline lock prior to beginning of sedation, infusion, injection of imaging exam.Discontinue saline lock post exam. If Pt. has a central line or IVAD, may access for administration according to line specific nursing protocol.Once exam is complete flush line and de-access according to line specific nursing protocol in the MR contrast administration guidelines link - dexAMETHasone (DECADRON) 2 mg tablet Take 4 tablets by mouth two times a day with meals for 4 days, THEN 3 tablets two times a day with meals for 4 days, THEN 2 tablets two times a day with meals for 4 days, THEN 1 tablet two times a day with meals. - iv contrast (will be provided with radiology test) MRI Brain Inject, intravenously, once for 1 dose.No IV access, insert saline lock prior to beginning of sedation, infusion, injection of imaging exam.Discontinue saline lock post exam. If Pt. has a central line or IVAD, may access for administration according to line specific nursing protocol.Once exam is complete flush line and de-access according to line specific nursing protocol in the MR contrast administration guidelines link - methIMAzole (TAPAZOLE) 10 mg tablet Take TWO 10 mg tablets and ONE 5 mg tablet for a total dose of 25 mg, daily. - methIMAzole (TAPAZOLE) 5 mg tablet Take TWO 10 mg tablets and ONE 5 mg tablet for a total dose of 25 mg, daily. - ondansetron (ZOFRAN) 8 mg tablet Take one tablet by mouth one hour prior to chemo. May repeat dose every 8-12 hours if needed to prevent nausea - lacosamide (VIMPAT) 150 mg tab Take 1 tablet by mouth two times a day. - meclizine (ANTIVERT) 25 mg tab Take 1 tablet by mouth three times a day. - valACYclovir (VALTREX) 1 gram tablet Take 1,000 mg by mouth three times a day. - midazolam (NAYZILAM) 5 mg/spray (0.1 mL) nasal spray Use 1 [place] in the nose as needed for up to 10 days. May repeat dose in alternate nostril after 10 minutes based on response and tolerability. - sennosides (SENNA ORAL) Take by mouth. - DIETARY SUPPLEMENT,MISC COMB14 ORAL Take by mouth. Biomega 1000mg containing vitamin E and pure anchovy - medical supply, miscellaneous (MISCELLANEOUS MEDICAL SUPPLY MISC) Neurotrophin - acetaminophen (TYLENOL) 325 mg tablet 2 tablets by ORAL/FEEDING TUBE route every 4 hours as needed for pain. - pantoprazole DR (PROTONIX) 20 mg tablet Take 1 tablet by mouth DAILY (6 AM). Problem List As Of Date 06/14/2024 Noted Resolved Chest pain [R07.9] 04/25/2010 05/26/2024 Brain mass [G93.89] 03/17/2023 11/17/2023 Obesity, Class I, BMI 30-34.9 [E66.811] 03/17/2023 Brain compression (HCC) [G93.5] 03/20/2023 S/P brain surgery [Z98.890] 03/20/2023 11/17/2023 At risk for seizures [Z91.89] 03/20/2023 Cerebral edema (HCC) [G93.6] 03/20/2023 GBM (glioblastoma multiforme) (HCC) [C71.9] 04/07/2023 Syncope, unspecified syncope type [R55] 11/01/2023 11/03/2023 Examination of participant in clinical trial [Z*11/05/2023 11/17/2023 Forehead pain [R51.9] 11/05/2023 PONV (postoperative nausea and vomiting) [R11.2*05/26/2024 Acute post-operative pain [G89.18] 05/29/2024 Encounter Status:Closed by EUSEBIO RAMIREZ on 06/14/24 CNCO Observed: 05/31/2024 12:00 AM Status: COMPLETED Source: [facility] Letter Text CNDS Observed: 05/29/2024 12:13 PM Status: COMPLETED Source: [facility] HNO ID: [id number] Author: JOSE EVANS MD Service: Neurosurgery Author Type: Physician Type: Discharge Summary Filed: 05/29/2024 16:09 Note Text: The [address] [address] or ([phone]) [facility] [place] Discharge Summary Patient Name: Angel Keating Account #: Data Unavailable Admission Date: 05/27/2024 Date of Evaluation: 05/29/2024 Time of Evaluation: 1:14 PM Admission Date: 05/27/2024 Discharge Date: May 29, 2024 Attending Physician: No att. providers found PCP: No primary care provider on file. Reason for Hospitalization: left craniotomy Final Diagnoses: Patient Active Hospital Problem List: GBM (glioblastoma multiforme) (HCC) Date Noted: 04/07/2023 Acute post-operative pain Date Noted: 05/29/2024 Operations During Hospitalization: left sided craniotomy for resection of brain mass Hospital Course: The patient was electively admitted to the [facility]. After being optimized for surgery by the Neurosurgery and PAT teams, Angel Keating was identified and brought into the Operating Room by the anesthesia and nursing teams. Prior to surgery the patient was treated with antibiotics and continued with antibiotics postoperatively. The patient underwent a left sided craniotomy for resection of brain tumor with general endotracheal anesthesia. The patient tolerated the procedure and was taken to PACU in stable condition. The patient was then transferred up to neuro-step down unit hospital room for postoperative management. Patient was fitted with sequential compression devices for DVT prophylaxis. The patient was discharged on POD # 2 in stable condition. Complete and comprehensive discharge instructions were provided to the patient as well as necessary prescriptions. The patient had no further questions and was advised to call with any questions, concerns, or problems. Patient's pain was well controlled with Oral Pain Medications. Patient progressed satisfactorily through mobilization milestones. On day of discharge was walking, pain controlled, eating/drinking without difficulty. Discharge Medications: Medication List START taking these medications dexAMETHasone 2 mg tablet Commonly known as: DECADRON Take 4 tablets by mouth two times a day with meals for 4 days, THEN 3 tablets two times a day with meals for 4 days, THEN 2 tablets two times a day with meals for 4 days, THEN 1 tablet two times a day with meals. Start taking on: May 29, 2024 oxyCODONE IR 5 mg immediate release tablet Commonly known as: ROXICODONE Take 1 tablet by mouth every 6 hours as needed for pain for up to 7 days. polyethylene glycol 3350 17 gram/dose powder Commonly known as: MIRALAX Take 17 g ( 1 capful) by mouth once daily for 10 days. Dissolve dose in 4 - 8 ounces of liquid and take as directed. CONTINUE taking these medications acetaminophen 325 mg tablet Commonly known as: TYLENOL 2 tablets by ORAL/FEEDING TUBE route every 4 hours as needed for pain. DIETARY SUPPLEMENT,MISC COMB14 ORAL iv contrast (will be provided with radiology test) MRI Brain Inject, intravenously, once for 1 dose.No IV access, insert saline lock prior to beginning of sedation, infusion, injection of imaging exam.Discontinue saline lock post exam. If Pt. has a central line or IVAD, may access for administration according to line specific nursing protocol.Once exam is complete flush line and de-access according to line specific nursing protocol in the MR contrast administration guidelines link lacosamide 150 mg Tab Commonly known as: VIMPAT Take 1 tablet by mouth two times a day. meclizine 25 mg Tab Commonly known as: ANTIVERT Take 1 tablet by mouth three times a day. * methIMAzole 10 mg tablet Commonly known as: TAPAZOLE Take TWO 10 mg tablets and ONE 5 mg tablet for a total dose of 25 mg, daily. * methIMAzole 5 mg tablet Commonly known as: TAPAZOLE Take TWO 10 mg tablets and ONE 5 mg tablet for a total dose of 25 mg, daily. midazolam 5 mg/spray (0.1 mL) nasal spray Commonly known as: NAYZILAM Use 1 [place] in the nose as needed for up to 10 days. May repeat dose in alternate nostril after 10 minutes based on response and tolerability. MISCELLANEOUS MEDICAL SUPPLY [facility] ondansetron 8 mg tablet Commonly known as: ZOFRAN Take one tablet by mouth one hour prior to chemo. May repeat dose every 8-12 hours if needed to prevent nausea pantoprazole DR 20 mg tablet Commonly known as: PROTONIX Take 1 tablet by mouth DAILY (6 AM). SENNA ORAL VALTREX 1 gram tablet Generic drug: valACYclovir * This list has 2 medication(s) that are the same as other medications prescribed for you. Read the directions carefully, and ask your doctor or other care provider to review them with you. Where to Get Your Medications These medications were sent to [facility] [address] [place] [address] Hours: Thursday-Thursday 7am-8pm, Thursday, Thursday and Holidays 9am-5pm dexAMETHasone 2 mg tablet oxyCODONE IR 5 mg immediate release tablet polyethylene glycol 3350 17 gram/dose powder Discharge Objective Exam: 05/29/24 0400 05/29/24 0600 05/29/24 0800 05/29/24 1000 BP: 133/78 138/76 120/75 106/62 Pulse: 70 60 (!) 57 68 Resp: 24 16 16 15 Temp: 36.8 ?C (98.3 ?F) 36.7 ?C (98.1 ?F) TempSrc: Oral Oral SpO2: 96% 97% 96% 96% Weight: Height: Heart: Regular rate and rhythm, no murmurs/gallops Lungs: Clear to auscultation bilaterally AANDOx3 PERRL, EOMI FS, TM BUE 5/5 BLE 5/5 SILT globally Incision c/d/I, wilfredo visible Patient Condition at Discharge: Stable Discharge Disposition: Home with Self Care Information Provided to the Patient: Patient given copy of Discharge Instructions DIET: No restrictions Activity: No heavy lifting greater than 8-10 pounds. No vigorous activity. No driving or operating heavy machinery while taking narcotic (pain) medications. Wound Care: Keep area(s) clean and dry. Do not submerge wound(s) in standing water for 14 days after surgery (no tub bathing, swimming, or hot tubs). Please use gentle soap to wash hair, for example baby shampoo, if the wound(s) is/are on your head or in your hair. Please visually inspect your wound(s) at least once daily. If the wound(s) are in a difficult to see location, please use a mirror or have someone else assist with visual inspection. If you have sutures that you can see outside of the skin or wilfredo: - Call Surgeon's office to schedule wound check AND suture/staple removal appointment or schedule the removal with your primary care physician 10-14 days after the date of surgery. Do not remove the wilfredo/sutures on your own. Return sooner or notify Surgeon's office if wound(s) or surrounding areas have increased swelling, pain, warmth, redness, or drainage that is thick, yellow and/or green. Follow-Up: Future Appointments Date Time Provider Department Center 06/16/2024 10:00 AM LAB [id number] 06/16/2024 11:00 AM Patricia Enriquez MD [facility] 06/16/2024 11:30 AM Heidi Arriaza RN [facility] 06/16/2024 11:30 AM Nadeen Beckett RN [facility] 07/13/2024 10:00 AM [facility] 2(I-STAT/LG BORE/1.5T) RMRI[facility] 07/14/2024 9:30 AM LAB [facility] 07/14/2024 10:30 AM Patricia Enriquez MD [facility] 07/14/2024 10:30 AM Nadeen Beckett RN [facility] Call or during normal business hours for your follow up appointments. Follow up as scheduled. Electronically SIGNED/ DICTATED by: Tawnya Caceres MD May 2941:14 PM [phone] (pager) in the service of Attending Physician, No att. providers found. This note is not finalized until authenticated by the staff physician. PROGRESS Observed: 05/29/2024 12:13 PM Status: COMPLETED Source: [facility] HNO ID: [id number] Author: EUSEBIO RAMIREZ APRN.CNP Service: Cardiovascular Surgery Author Type: Nurse Practitioner Type: Progress Notes Filed: 06/14/2024 07:46 Note Text: Documentation Query Please clarify the diagnosis associated with the clinical indicators: Brain Compression and Cerebral Edema are pertinent diagnoses for this admission This document will become part of the patient's medical record. PLAN OF CARE Observed: 05/29/2024 12:13 PM Status: COMPLETED Source: [facility] HNO ID: [id number] Author: MARLENE HERNANDEZ ? Service: Pharmacy Author Type: Asphalt Screed Operator Type: Plan of Care Filed: 05/29/2024 13:38 Note Text: PHARMACY BEDSIDE DELIVERY SERVICE Patient Name: Angel Keating The marked outpatient medications were Filled at: [facility] and delivered to the patient's bedside to daughter Medication List START taking these medications dexAMETHasone 2 mg tablet Commonly known as: DECADRON Take 4 tablets by mouth two times a day with meals for 4 days, THEN 3 tablets two times a day with meals for 4 days, THEN 2 tablets two times a day with meals for 4 days, THEN 1 tablet two times a day with meals. Start taking on: May 29, 2024 MEDICATION: DELIVERED oxyCODONE IR 5 mg immediate release tablet Commonly known as: ROXICODONE Take 1 tablet by mouth every 6 hours as needed for pain for up to 7 days. MEDICATION: DELIVERED polyethylene glycol 3350 17 gram/dose powder Commonly known as: MIRALAX Take 17 g ( 1 capful) by mouth once daily for 10 days. Dissolve dose in 4 - 8 ounces of liquid and take as directed. MEDICATION: DELIVERED CONTINUE taking these medications acetaminophen 325 mg tablet Commonly known as: TYLENOL 2 tablets by ORAL/FEEDING TUBE route every 4 hours as needed for pain. DIETARY SUPPLEMENT,MISC COMB14 ORAL iv contrast (will be provided with radiology test) MRI Brain Inject, intravenously, once for 1 dose.No IV access, insert saline lock prior to beginning of sedation, infusion, injection of imaging exam.Discontinue saline lock post exam. If Pt. has a central line or IVAD, may access for administration according to line specific nursing protocol.Once exam is complete flush line and de-access according to line specific nursing protocol in the MR contrast administration guidelines link lacosamide 150 mg Tab Commonly known as: VIMPAT Take 1 tablet by mouth two times a day. meclizine 25 mg Tab Commonly known as: ANTIVERT Take 1 tablet by mouth three times a day. * methIMAzole 10 mg tablet Commonly known as: TAPAZOLE Take TWO 10 mg tablets and ONE 5 mg tablet for a total dose of 25 mg, daily. * methIMAzole 5 mg tablet Commonly known as: TAPAZOLE Take TWO 10 mg tablets and ONE 5 mg tablet for a total dose of 25 mg, daily. midazolam 5 mg/spray (0.1 mL) nasal spray Commonly known as: NAYZILAM Use 1 [place] in the nose as needed for up to 10 days. May repeat dose in alternate nostril after 10 minutes based on response and tolerability. MISCELLANEOUS MEDICAL SUPPLY [facility] ondansetron 8 mg tablet Commonly known as: ZOFRAN Take one tablet by mouth one hour prior to chemo. May repeat dose every 8-12 hours if needed to prevent nausea pantoprazole DR 20 mg tablet Commonly known as: PROTONIX Take 1 tablet by mouth DAILY (6 AM). SENNA ORAL VALTREX 1 gram tablet Generic drug: valACYclovir * This list has 2 medication(s) that are the same as other medications prescribed for you. Read the directions carefully, and ask your doctor or other care provider to review them with you. You might also be taking other medications not listed above. If you have questions about any of your other medications, talk to the person who prescribed them or your Primary Care Provider. Marlene Hernandez PAGER: [phone] May 29, 2024 1:37 PM PLAN OF CARE Observed: 05/29/2024 8:32 AM Status: COMPLETED Source: [facility] HNO ID: [id number] Author: MARLENE HERNANDEZ ? Service: Pharmacy Author Type: Asphalt Screed Operator Type: Plan of Care Filed: 05/29/2024 08:32 Note Text: Insurance investigation completed Patient has active prescription insurance: Yes - Patient's insurance is in-network with [facility] Insurance loaded into [facility]: Yes Test claim was completed to verify insurance is active: Successful Any questions, please reach out to your medication video production coordinator. THERAPY NT Observed: 05/29/2024 7:24 AM Status: COMPLETED Source: [facility] HNO ID: [id number] Author: CORKY NICOLAS OT/Prosper Service: Occupational Therapy Author Type: Occupational Therapist Type: Therapy (PT/OT/Speech/Resp) Filed: 05/29/2024 07:24 Note Text: THERAPY COMMUNICATION NOTE SERVICE DATE: 05/29/2024 ROOM: [facility] Physical therapy consult received. Chart reviewed. No acute skilled physical therapy needs identified. Pt with a documented Nursing 6 Clicks score of 23-24 indicating that the patient is supervised or independent with all mobility. Will discontinue Physical Therapy Consult at this time. Please re-consult if the patient has a change of condition and develops mobility deficits that require skilled therapy. Refer to outpatient therapy if there are further concerns. Thank you. Occupational therapy consult received. Chart reviewed. No acute skilled occupational therapy needs identified. Pt with a documented Nursing 6 Clicks score of 23 or 24 indicating that the patient is supervised or independent with all mobility. No acute cognitive, vision, or UE deficits identified in chart. Will discontinue Occupational Therapy Consult at this time. Please re-consult if the patient has a change of condition and develops mobility, ADL or cognitive deficits that require skilled therapy. Refer to outpatient therapy if there are further concerns. Thank you. SIGNATURE: Corky Nicolas OT/L PATIENT NAME: Angel Keating DATE: May 29, 2024 TIME: 7:24 AM BAS METAB 1999 PNL SERPL Collected: 5:24 AM Status: F Source: [facility] Order Comment: Specimen Type : BLOOD SPECIMEN Ordering Facility: [facility] Address: [address] [place] [address] TYPE CODE TESTS RESULT OUT OF RANGE REFERENCE UNITS LAB 2345-7(LOINC) Glucose SerPl-mCnc 147 High 74-99 mg/dL Result Comment: The [place] Diabetes Association (ADA) provides guidance for cutoff values for fasting glucose and random glucose. The ADA defines fasting as no caloric intake for at least 8 hours. Fasting plasma glucose results between 100 to 125 mg/dL indicate increased risk for diabetes (prediabetes). Fasting plasma glucose results greater than or equal to 126 mg/dL meet the criteria for diagnosis of diabetes. In the absence of unequivocal hyperglycemia, results should be confirmed by repeat testing. In a patient with classic symptoms of hyperglycemia or hyperglycemic crisis, random plasma glucose results greater than or equal to 200 mg/dL meet the criteria for diagnosis of diabetes. Reference: Standards of Medical Care in Diabetes 2016, [place] Diabetes Association. Diabetes Care. 2016.39(Suppl 1). LAB 3094-0(LOINC) BUN SerPl-mCnc 18 9-24 mg/ dL LAB 2160-0(LOINC) Creat SerPl-mCnc 1.07 0.73-1.22 mg/dL LAB 2951-2(LOINC) Sodium SerPl-sCnc 139 136-144 mmol/L LAB 2823-3(LOINC) Potassium SerPl-sCnc 4.4 3.7-5.1 mmol/L LAB 5-0(LOINC) Chloride SerPl-sCnc 108 High 98-107 mmol/L LAB 2027-(LOINC) CO2 SerPl-sCnc 23 22-30 mmo l/L LAB 87749-7(LOINC) Anion Gap SerPl-sCnc 8 8-15 mmol/L LAB 27919-8(LOINC) Calcium SerPl-mCnc 8.5 8.5-10.2 mg/dL LAB 33367-1(LOINC) Creatinine + eGFR Pnl SerPlBld 82 >=60 mL/min/1 .73m??? Result Comment: Estimated Gl omerular Filtration Rate (eGFR) is calculated using the 2020 CKD-EPI creatinine equation. This equation utilizes serum creatinine, sex, and age as parameters. The creatinine assay has traceable calibration to isotope dilution-mass spectrometry. Refer to KDIGO guidelines for clinical interpretation. In patients with unstable renal function, e.g. those with acute kidney injury, the eGFR may not accurately reflect actual GFR. Performed By: #### 94882-2 # ### [facility] CLIA [id number] [address] [place] [address] [place] [facility] CBC W AUTO DIFF BLD Collected: 05/29/2024 5:[address] atus: F Source: [facility] Order Comment: Specimen Type : BLOOD SPECIMEN Ordering Facility: [facility] Address: [address] [place] [address] TYPE CODE TESTS RESULT OUT OF RANGE REFERENCE UNITS LAB 6690-2(LOINC) WBC # Bld Auto 13.95 High 3.70-11.00 k/uL LAB 789-8(LOINC) RBC # Bld Auto 3.79 Low 4.20-6.00 m/ uL LAB 718-7(LOINC) Hgb Bld-mCnc 12.2 Low 13.0-17.0 g/dL LAB 4544-3(LOINC) Hct VFr Bld Auto 35.3 Low 39.0-51.0 % LAB 787-2(LOINC) MCV RBC Auto 93.1 80.0-100.0 fL LAB 785-6(LOINC) MCH RBC Qn Auto 32.2 26.0-34.0 p g LAB 786-4([facility]) MCHC RBC Auto-mCnc 34.6 30.5-36.0 g/dL LAB 53506-7([facility]) RDW RBC-Rto 13.5 11.5-15.0 % LAB 777-3([facility]) Platelet # Bld Auto 206 150-400 k/uL LAB 32515-6([facility]) PMV Bld Auto 9.1 9.0-12.7 fL LAB 770-8([facility]) Neutrophils/leuk NFr Bld Auto 92.3 % LAB 751-8([facility]) Neutrophils # Bld Auto 12.88 High 1.45-7.50 k/uL LAB 736-9([facility]) Lymphocytes/leuk NFr Bld Auto 3.9 % LAB 731-0([facility]) Lymphocytes # Bld Auto 0.55 Low 1.00-4.00 k/uL LAB 5905-5([facility]) Monocytes/leuk NFr Bld Auto 3.4 % LAB 742-7([facility]) Monocytes # Bld Auto 0.47 <0.87 k/uL LAB 713-8([facility]) Eosinophil/leuk NFr Bld Auto 0.0 % LAB 711-2([facility]) Eosinophil # Bld Auto <0.03 <0.46 k/uL LAB 706-2([facility]) Basophils/leuk NFr Bld Auto 0.1 % LAB 704-7([facility]) Basophils # Bld Auto <0.03 <0.11 k/uL LAB 73989-3([facility]) Imm Granulocytes/christina k NFr Bld Auto 0.3 % LAB 95439-9([facility]) Imm Granulocytes # Bld Auto 0.04 <0.10 k/uL LAB 23149-7([facility]) nRBC/100 WBC Bld-Rto 0.0 /100 WBC LAB 771-6([facility]) nRBC # Bld Auto <0.01 <0.01 k/u L LAB 67432-2([facility]) Differential method Bld Auto Performed By: #### 19515-8 # ### [facility] CLIA [id number] [address] [place] [address] [place] MRI BRAIN WO/W IVCON Observed: 10:43 AM Status: F Source: [facility] * * *Final Report* * * DATE OF EXAM: May 28 2024 10:43AM QBM 0295 - MRI BRAIN WO/W IVCON / PROCEDURE REASON: Craniotomy, post-op * * * * Physician Interpretation * * * * EXAMINATION: MRI BRAIN WO/W IVCON CLINICAL HISTORY: Postoperative exam status post redo left craniotomy for tumor resection 05/27/2024, left temporal GBM. TECHNIQUE: Routine brain MRI protocol without and with contrast including diffusion images. MQ: [id number]_2 Contrast: 20 mL Dotarem IV COMPARISON: MRI localization 05/26/2024 RESULT: Acute Change: There is an acute infarct involving the left posterior putamen with associated T2 and FLAIR hyperintensity. No associated hemorrhage with the infarct. Mass Lesion/ Mass Effect: Redo left temporal craniotomy and interval resection of previously noted left temporal mass. Air and fluid opacification of the resection cavity in the left anterior temporal lobe with recent postoperative blood products. Intrinsic T1 hyperintense blood products along the posterior medial origin of the resection cavity. There is superimposed patchy ill-defined enhancement along the left uncus and medial margin of the resection defect (series 16, image 60) closely associated with the left M1 MCA branch and lenticulostriate vessels, which could reflect residual enhancing tumor versus postoperative changes. No other focal areas of superimposed enhancement along the resection margins. Pachymeningeal thickening and enhancement underlying the craniotomy in along the left temporal convexity, likely postoperative. Confluent T2 and FLAIR hyperintense signal along the resection margins extends into the posterior temporal lobe, superior temporal gyrus, periatrial white matter, external and internal capsules and left henry radiata, increased in extent from the prior exam with mild localized mass effect and effacement of the left lateral ventricle. No significant midline shift. Small extra-axial FLAIR hyperintense collections along the bilateral anterior frontal convexities measuring 1-2 mm without significant mass effect. Chronic Change: The white matter is otherwise within normal limits of signal intensity for age. Parenchyma: No significant volume loss for age. Ventricles: Mild effacement of the left lateral ventricle and temporal horn. Remainder of the ventricles are normal in caliber and configuration. Skull Base: Hypothalamic and pituitary region are grossly normal. Craniocervical junction is normal. No significant marrow replacement process. Vasculature: Major intracranial arterial structures, and dural venous sinuses show typical flow void, suggesting patency by spin echo criteria. Other: The visualized paranasal sinuses and mastoid air cells are clear. The orbits and extracranial soft tissues are unremarkable. IMPRESSION: Interval postoperative changes from redo left craniotomy and resection of the left anterior temporal lobe mass. Ill-defined nodular enhancement along the medial margin of the resection cavity and left mesial temporal lobe, which could be postoperative or reflect residual enhancing tumor. Increased extent of confluent T2/FLAIR hyperintensity in the left superior temporal gyrus, temporal lobe, internal/external capsules with localized mass effect and mild effacement of the left lateral ventricle, could be postoperative change. Small acute infarct involving the left posterior putamen without associated hemorrhage or significant mass effect. Call Worker Person: EMILI Transcribe Date/Time: May 28 2024 10:45A Dictated by : MITCHELL SCHUMACHER MD This examination was interpreted and the report reviewed and electronically signed by: MITCHELL SCHUMACHER MD on May 28 2024 11:01AM EST [id number] ALLIED HEALTH Observed: 05/28/2024 10:42 AM Status: COMPLETED Source: [facility] ID: [id number] Author: NEL SAMSON RT(R) Service: Radiology Author Type: Tracer Lathe Set Up Operator Type: Allied Health Filed: 05/28/2024 10:43 Note Text: Radiology Service Progress Note PATIENT NAME: Angel Keating DATE OF SERVICE: May 28, 2024 TIME: 10:42 AM PATIENT IDENTITY VERIFICATION COMPLETED USING TWO (2) IDENTIFIERS: Name and Date of confirmed by patient verbally and Name and Date of confirmed by identification band. FALL SCREENING: Has the patient had 2 falls in the last year or 1 fall with injury or currently using an Ambulatory Assistive Device (Walker, Cane, Wheelchair, Crutches, etc.)? Inpatient: Screened on floor PATIENT GENDER DATA: Male PATIENT RELEVANT IMPLANT DATA REVIEWED: Yes PATIENT PRESENTS WITH AN IMPLANTABLE OR ATTACHED PLATE FINISHER: No RADIOLOGY DEPARTMENT: MR; Exam(s) Completed: Head: Routine Brain PERIPHERAL IV DATA: Inpatient: see LDA documentation SIGNED BY: RT Freddie(R) May 28, 2024 10:42 AM NURSING PROG Observed: 05/28/2024 10:21 AM Status: COMPLETED Source: [facility] HNO ID: [id number] Author: АННА DE LEON RN Service: ? Author Type: Registered Nurse Type: Nursing Progress Note Filed: 05/28/2024 10:22 Note Text: Radiology Service Progress Note DATE OF SERVICE: May 28, 2024 TIME: 10:21 AM PATIENT WEIGHT: 227 LBS PATIENT IDENTITY VERIFICATION COMPLETED USING TWO (2) STANDARD IDENTIFIERS: Name and Date of confirmed by patient verbally and Name and Date of confirmed by identification band. FALL SCREENING: Has the patient had 2 falls in the last year or 1 fall with injury or currently using an Ambulatory Assistive Device (Walker, Cane, Wheelchair, Crutches, etc.)? Inpatient: Screened on floor PATIENT GENDER DATA: Male ALLERGIES: Reviewed and unchanged CONTRAST ALLERGY: No EXAM: MRI - CONTRAST TYPE: GROUP II IV SITE: Inpatient - refer to LDA documentation IV SITE APPEARANCE: Clean,Dry and Intact SIGNATURE: Анна De Leon RN PATIENT NAME: Angel Keating DATE: May 28, 2024 TIME: 10:21 AM PROGRESS Observed: 05/28/2024 9:59 AM Status: COMPLETED Source: [facility] HNO ID: [id number] Author: TIMBO PLATT MD Service: Neurosurgery Author Type: Physician Type: Progress Notes Filed: 05/28/2024 14:14 Note Text: Neurosurgery Inpatient Progress Note Interval HPI: POD 1 s/p redo L crani for recurrent GBM rsxn Objective: 05/27/24 0525 BP: 134/85 Pulse: 70 Resp: 18 Temp: 36.9 ?C (98.4 ?F) TempSrc: Temporal Artery SpO2: 98% Weight: 101.2 kg (223 lb) Intake/Output Summary (Last 24 hours) at 05/27/2024 1225 Last data filed at 05/27/2024 1222 Gross per 24 hour Intake 1600 ml Output 1780 ml Net -180 ml EXAM: AANDOx3 PERRL, EOMI FS, TM BUE 5/5 BLE 5/5 SILT globally Dressing clean, dry, and intact (incision closed w/ wilfredo) BP 134/85 Pulse 70 Temp (Src) 98.4 (Temporal Artery) Resp 18 Wt 223 lb (101.2kg) SpO2 98% O2 Therapy: Room Air A/P: 53 y/o RHM 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 Evans), s/p chemo/RT, w/ recent MRI demonstrating disease progression, now s/p re-do L crani for tumor resection 05/27/2024 w/ Dr. Evans. -SDU care -Dex 8 BID, SSI/PPI, taper to 2 BID over 2 weeks -Continue home vimpat -MRI brain w/wo POD 1 -Diet: regular -PT/OT -SQH on POD 2 Staff: Dr. Evans (Dr. Platt covering) Signature: Eusebia Watts MD PGY-3, Neurological Surgery Pager: [phone] Neurosurgery power generation plant operator: [id number] 9:59 AM 05/28/24 Please page [phone] on weekends and after 6pm Weekend Staff (Covering for Dr. Evans) I attest that I have carefully reviewed the history, clinical findings, imaging and treatment plan for the patient, and have visited the patient today. I agree with the resident's note as documented herein. SIGNED: Timbo Platt MD PhD DATE: May 28, 2024 TIME: 2:14 PM CBC W AUTO DIFF BLD Collected: 05/28/2024 8:[address] atus: F Source: [facility] Order Comment: Specimen Type : BLOOD SPECIMEN Ordering Facility: [facility] Address: [address] [place] [address] TYPE CODE TESTS RESULT OUT OF RANGE REFERENCE UNITS LAB 6690-2(LOINC) WBC # Bld Auto 13.40 High 3.70-11.00 k/uL LAB 789-8(LOINC) RBC # Bld Auto 4.10 Low 4.20-6.00 m/ uL LAB 718-7(LOINC) Hgb Bld-mCnc 13.1 13.0-17.0 g/dL LAB 4544-3([facility]) Hct VFr Bld Auto 37.8 Low 39.0-51.0 % LAB 787-2([facility]) MCV RBC Auto 92.2 80.0-100.0 fL LAB 785-6([facility]) MCH RBC Qn Auto 32.0 26.0-34.0 p g LAB 786-4([facility]) MCHC RBC Auto-mCnc 34.7 30.5-36.0 g/dL LAB 66413-4([facility]) RDW RBC-Rto 13.2 11.5-15.0 % LAB 777-3([facility]) Platelet # Bld Auto 233 150-400 k/uL LAB 63145-4([facility]) PMV Bld Auto 9.1 9.0-12.7 fL LAB 770-8([facility]) Neutrophils/leuk NFr Bld Auto 88.9 % LAB 751-8([facility]) Neutrophils # Bld Auto 11.93 High 1.45-7.50 k/uL LAB 736-9([facility]) Lymphocytes/leuk NFr Bld Auto 5.7 % LAB 731-0([facility]) Lymphocytes # Bld Auto 0.76 Low 1.00-4.00 k/uL LAB 5905-5([facility]) Monocytes/leuk NFr Bld Auto 4.9 % LAB 742-7([facility]) Monocytes # Bld Auto 0.65 <0.87 k/uL LAB 713-8([facility]) Eosinophil/leuk NFr Bld Auto 0.0 % LAB 711-2([facility]) Eosinophil # Bld Auto <0.03 <0.46 k/uL LAB 706-2([facility]) Basophils/leuk NFr Bld Auto 0.1 % LAB 704-7([facility]) Basophils # Bld Auto <0.03 <0.11 k/uL LAB 81515-0([facility]) Imm Granulocytes/christina k NFr Bld Auto 0.4 % LAB 13454-9([facility]) Imm Granulocytes # Bld Auto 0.05 <0.10 k/uL LAB 82768-5([facility]) nRBC/100 WBC Bld-Rto 0.0 /100 WBC LAB 771-6(LOINC) nRBC # Bld Auto <0.01 <0.01 k/u L LAB 49994-3([facility]) Differential method Bld Auto Performed By: #### 32192-6 # ### [facility] CLIA [id number] [address] [facility] [place] [address] [place] BAS METAB 2000 PNL SERPL Collected: 8:32 AM Status: F Source: [facility] Order Comment: Specimen Type : BLOOD SPECIMEN Ordering Facility: [facility] Address: [address] [place] [address] TYPE CODE TESTS RESULT OUT OF RANGE REFERENCE UNITS LAB 2345-7(LOINC) Glucose SerPl-mCnc 143 High 74-99 mg/dL Result Comment: The [place] Diabetes Association (ADA) provides guidance for cutoff values for fasting glucose and random glucose. The ADA defines fasting as no caloric intake for at least 8 hours. Fasting plasma glucose results between 100 to 125 mg/dL indicate increased risk for diabetes (prediabetes). Fasting plasma glucose results greater than or equal to 126 mg/dL meet the criteria for diagnosis of diabetes. In the absence of unequivocal hyperglycemia, results should be confirmed by repeat testing. In a patient with classic symptoms of hyperglycemia or hyperglycemic crisis, random plasma glucose results greater than or equal to 200 mg/dL meet the criteria for diagnosis of diabetes. Reference: Standards of Medical Care in Diabetes 2016, [place] Diabetes Association. Diabetes Care. 2016.39(Suppl 1). LAB 3094-0(LOINC) BUN SerPl-mCnc 17 9-24 mg/ dL LAB 2160-0(LOINC) Creat SerPl-mCnc 1.17 0.73-1.22 mg/dL LAB 2951-2(LOINC) Sodium SerPl-sCnc 139 136-144 mmol/L LAB 2823-3(LOINC) Potassium SerPl-sCnc 4.2 3.7-5.1 mmol/L LAB 2075-0(LOINC) Chloride SerPl-sCnc 105 98-107 mmol/L LAB 2028-9(LOINC) CO2 SerPl-sCnc 23 22-30 mmo l/L LAB 12962-3(LOINC) Anion Gap SerPl-sCnc 11 8-15 mmol/L LAB 55415-3(LOINC) Calcium SerPl-mCnc 8.8 8.5-10.2 mg/dL LAB 12180-6(LOINC) Creatinine + eGFR Pnl SerPlBld 74 >=60 mL/min/1 .73m??? Result Comment: Estimated Gl omerular Filtration Rate (eGFR) is calculated using the 2020 CKD-EPI creatinine equation. This equation utilizes serum creatinine, sex, and age as parameters. The creatinine assay has traceable calibration to isotope dilution-mass spectrometry. Refer to KDIGO guidelines for clinical interpretation. In patients with unstable renal function, e.g. those with acute kidney injury, the eGFR may not accurately reflect actual GFR. Performed By: #### 20108-0 # ### [facility] CLIA [id number] [address] [place] [address] [place] [facility] ANES POSTPROC EVAL Observed: 05/27/2024 6:12 PM Status: COMPLETED Source: [facility] HNO ID: [id number] Author: SIM PRATT MD Service: ? Author Type: Anesthesiologist Type: Anesthesia Postprocedure Evaluation Filed: 05/27/2024 18:12 Note Text: POST ANESTHESIA EVALUATION NOTE : 1970 Procedure Summary Date: 05/27/24 Room / Location: [address] Anesthesia Start: 0806 Anesthesia Stop: 1303 Procedures: STEREOTACTIC COMPUTER-ASSISTED NAVIGATIONAL PROCEDURE CRANIAL (Left: Brain) CRANIECTOMY EXCISION TUMOR, TREPHINATION, BONE FLAP CRANIOTOMY, SUPRATENTORIAL, EXCEPT MENINGIOMA (Left: Brain) Diagnosis: Brain tumor (HCC) (Brain tumor (HCC) [D49.6]) Surgeons: Jose Evans MD Responsible Provider: Sim Pratt MD Anesthesia Type: general ASA Status: 3 Anesthesia Type: general Airway Type: ETT Last Vitals Vitals Value Taken Time BP 151/87 05/27/24 1800 Temp 36.8 ?C (98.3 ?F) 05/27/24 1600 Pulse 77 05/27/24 1810 Resp 23 05/27/24 1810 SpO2 97 % 05/27/24 1810 Vitals shown include unfiled device data. Post Anesthesia Patient Status Patient Evaluation: floor. Anticipated Disposition: inpatient floor planned admission. Neurological Status: aware and responsive. Pulmonary Status: breathing comfortably on room air Airway Control: returned to baseline unsupported. Cardiovascular Status: stable. Pain Management: clinically adequate Postoperative Hydration: acceptable. Intraoperative Events: no significant anesthesia events Post Operative Nausea/Vomiting Status: no significant post operative nausea or vomiting Recommendation: continue current plan of care. Anesthesia Observations No Documentation SIGNATURE: Sim Pratt MD PATIENT NAME: Angel Keating DATE: May 27, 2024 TIME: 6:12 PM CSN: [id number] PLAN OF CARE Observed: 05/27/2024 12:24 PM Status: COMPLETED [facility] [id number] Author: DIEUDONNE LINK MD Service: Neurosurgery Author Type: Resident Type: Plan of Care Filed: 05/27/2024 12:24 Note Text: Neurosurgery Postop Note Patient: Angel Keating Interval HPI Postop check Objective Vitals 05/27/24 0525 BP: 134/85 Pulse: 70 Resp: 18 Temp: 36.9 ?C (98.4 ?F) TempSrc: Temporal Artery SpO2: 98% Weight: 101.2 kg (223 lb) Exam Waking up from anesthesia PERRL, EOMI FS, TM BUE 5/5 BLE 5/5 SILT globally Headwrap clean, dry, and intact (incision closed w/ wilfredo) Assessment/Plan 53 y/o RHM 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 Evans), s/p chemo/RT, w/ recent MRI demonstrating disease progression, now s/p re-do L crani for tumor resection 05/27/2024 w/ Dr. Evans. -Neurologically stable -Pain control -Dex 8 BID, SSI/PPI -2 g mg in PACU -Continue home vimpat -MRI brain w/wo POD 1 -Advance diet as tolerated -PT/OT -SQH on POD 2 -SDU when meets PACU criteria Dieudonne Link MD PGY-4, Neurological Surgery Pager: [phone] Neurosurgery power generation plant operator: [id number] 12:24 PM 05/27/24 Please page [phone] on weekends and after 6pm SURGICAL PATHOLOGY Collected: 05/27/2024 10:[address] atus: F Source: [facility] Order Comment: Specimen Type : TISSUE SPECIMEN Ordering Facility: [facility] Address: [address] [place], [place] [id number] TYPE CODE TESTS RESULT OUT OF RANGE REFERENCE UNITS PATHOLOGY [id number] CASE REPORT Result Comment: Surgical Pat hology Report Case: [id number] Authorizing Provider: Jose Evans MD Collected: 05/27/2024 10:06 AM Ordering Location: Neurosurgery Received: 05/27/2024 10:20 AM Pathologist: Becky Celis MD Intraop: Krista Snow MD Specimens: A) - Brain, Biopsy, left temporal tumor B) - Brain, Resection, Left temporal tumor C) - Hardware/Device/Foreign Body, old cranial hardware PATHOLOGY [id number] FINAL DIAGNOSIS Result Comment: A, B. 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 C. Cranium, hardware removal: -Surgical plates and screws (gross examination only). IG/FREDDY 05/27/24 OLOGY [id number] DIAGNOSIS COMMENT The sample consists of cortex and white matter with approximately 25% glioblastoma and a remainder of radiation-relat ed changes (necrosis and gliosis). PATHOLOGY [id number] GROSS DESCRIPTION Result Comment: A. Brain, Bi opsy Received fresh for intraoperative consultation labeled as brain, biopsy is 2 pieces of red-barnes tissue measuring in aggregate 1.5 x 0.9 x 0.7 cm. A personal service representative section is submitted as FS A1. The remaining specimen is submitted as A2. Gross examination performed at [facility], [address] [place], [place] [id number] 05/27/24 10:23 AM B. Brain, Resection Received fresh labeled left temporal tumor are multiple fragments of barnes-pink soft tissue aggregating to 3.4 x 3.2 x 1.3 cm. Sectioning reveals barnes-white cut surfaces with possible necrosis. Strategic Debriefing Specialist sections are submitted in formalin in cassettes B1-B4. Gross [place] [address] CLIA# [id number] [facility] 05/27/24 12:24 PM C. Hardware/Device/Foreign Body Received in formalin labeled old cranial hardware are 2 star-shaped plates measuring 2.1 x 2.1 x 0.1 cm, 2 barbell plates measuring 1.7 x 0.4 x 0.1 cm and 1.5 x 0.4 x 0.1 cm, and 10 surgical screws measuring 0.4 cm in length. No soft tissue is present. No sections are submitted. The specimen was shown to Dr. Castillo. Gross examination [place] [address] CLIA# [id number] [facility] 05/27/24 12:41 PM PATHOLOGY [id number] INTRAOPERATIVE DIAGNOSIS Result Comment: A. Brain, Bi opsy FSA1: Left temporal tumor: High-grade glioma (Dr. Snow) Intraoperative diagnosis performed at [place] [address] CLIA# [id number] PATHOLOGY CDX2 CLINICAL HISTORY Result Comment: Pre-op diagn osis: Brain tumor (HCC) [D49.6] PATHOLOGY [facility] FINAL PERFORMING LAB Result Comment: Diagnostic i nterpretation performed at [place] [address] CLIA# [id number] Youth Program Director: Jorge Lewis M.D. Performed By: #### S #### [facility] CLIA [id number] [address] [place], [place] [address] [place] PROCEDURE NOTE Observed: 05/27/2024 10:04 AM Status: COMPLETED Source: [facility] HNO ID: [id number] Author: AMIE MENA APRN.CASE FITTER Service: ? Author Type: Nurse Supervisor In Charge Type: Anesthesia Procedure Notes Filed: 05/27/2024 10:06 Note Text: ANESTHESIOLOGY PROCEDURE NOTE A-Line General Information Procedure Start Time/Medication Administration: 05/27/2024 8:30 AM Procedure End Time: 05/27/2024 8:31 AM Patient location during procedure: OR Timeout Performed Pre-procedure: timeout performed Indications: continuous blood pressure monitoring Staffing CASE FITTER: Christ Méndez APRN.CASE FITTER Performed by: ALONSO Preparation Sterility Preparation: hand hygiene performed prior to procedure, sterile gloves, drapes, and procedure tray, mask used, sterile drape used during line insertion, skin prep agent completely dried prior to procedure Site Prep: Chloraprep Procedure Details Catheter Type: arterial line Catheter Size: 20 G Catheter Length: 5.25 in Micropuncture Kit Used: No Guidewire Used: Yes Guidewire Removed Intact: Yes Laterality: left Site: radial artery Ultrasound Guided: No Line Secured: occlusive biodressing Events Events: patient tolerated procedure well with no complications SIGNATURE: Amie Mena APRN.CRNA PATIENT NAME: Angel Keating DATE: May 27, 2024 TIME: 10:04 AM CSN: [id number] ANES PROCEDURE NOTE Observed: 05/27/2024 10:03 AM Status: COMPLETED Source: [facility] HNO ID: [id number] Author: AMIE MENA APRN.CASE FITTER Service: ? Author Type: Nurse Supervisor In Charge Type: Anesthesia Procedure Notes Filed: 05/27/2024 10:04 Note Text: ANESTHESIOLOGY PROCEDURE NOTE PIV General Information Procedure Start Time/Medication Administration: 05/27/2024 8:20 AM Procedure End Time: 05/27/2024 8:20 AM Patient Location: OR Staffing CASE FITTER: Amie Mena APRN.CASE FITTER Performed by: ALONSO Jovel Sterility Preparation: hand hygiene performed prior to procedure, skin prep agent completely dried prior to procedure Site Prep: alcohol Procedure Details Indication: need for IV access Needle Size/Type: 16 gauge angiocath Orientation: Right Location: Hand Imaging Guidance Used: No SIGNATURE: Amie Mena APRN.CRNA PATIENT NAME: Angel Keating DATE: May 27, 2024 TIME: 10:03 AM CSN: [id number] ANES PROCEDURE NOTE Observed: 05/27/2024 10:02 AM Status: COMPLETED Source: [facility] HNO ID: [id number] Author: AMIE MENA APRN.CASE FITTER Service: ? 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 Anesthesiologist: Sim Pratt MD CASE FITTER: Amie Mena APRN.CASE FITTER Performed by: ALONSO Indications and Patient Condition Indications for airway management: anesthesia and airway protection Preoxygenated: yes anesthesia circuit Patient position: sniffing Method: asleep Cricoid Pressure: No Manual In-Line Stabilization: No Difficult Mask: No Airway Accessory: oral airway Final Airway Details Final airway type: endotracheal airway Final Endotracheal Airway: ETT Cuffed: yes Successful intubation technique: video laryngoscopy Devices used: Reyna Endotracheal tube insertion site: oral Blade size: #4 ETT size (mm): 7.5 Measured from: lips Measurement (cm): 23 Placement verified by: capnometry Cormack-Lehane Classification: grade I - full view of glottis Number of attempts at approach: 1 Failed airway: no Unrecognized esophageal intubation: no Airway not difficult SIGNATURE: Amie Mena APRN.CASE FITTER PATIENT NAME: Angel Keating DATE: May 27, 2024 TIME: 10:02 AM CSN: [id number] ARTERIAL BLOOD GASES Collected: 024 9:26 AM Status: F Source: [facility] Order Comment: Specimen Type : ARTERIAL BLOOD SPECIMEN Ordering Facility: [facility] Address: [address] [place] [address] TYPE CODE TESTS RESULT OUT OF RANGE REFERENCE UNITS LAB 77392-9(LOINC) pH Bld 7.40 7.35-7.45 LAB 01514-4(LOINC) pH temp adj Bld 7.40 7.35-7.45 LAB 18706-5(LOINC) pCO2 Bld 37 36-46 mm Hg LAB 97021-4(LOINC) pCO2 temp adj Bld 37 36-46 mmHg LAB 48504-3(LOINC) pO2 Bld 406 High 85-95 mm Hg LAB 15043-4(LOINC) pO2 temp adj Bld 406 High 85-95 mmHg LAB 1959-6(LOINC) HCO3 Bld-sCnc 23 22-26 mmol /L LAB 2708-6(LOINC) SaO2 % BldA 100 High 95-98 % LAB 1922-4(LOINC) Base deficit BldA-sCnc -1 -2-0 mmol/L LAB 2714-4(INC) OxyHgb MFr BldA 98 95-98 % LAB 2030-5([facility]) COHgb MFr BldA 1.6 0.0-2.0 % Result Comment: Carboxyhemog lobin Reference Range for Smokers: 2.0-8.0% LAB 2614-6([facility]) MetHgb MFr Bld 0.9 0.0-1.5 % LAB 2947-0([facility]) Sodium Bld-sCnc 138 136-144 mmol/L LAB 6298-4(INC) Potassium Bld-sCnc 4.4 3.5-5.0 mmol/L LAB 32399-6([facility]) Ca-I Bld-mCnc 1.21 1.08-1.30 m mol/L LAB 38951-3([facility]) Ca-I adj pH7.4 BldA-sCnc 1.21 1.08-1.30 mmol/L LAB 2339-0(INC) Glucose Bld-mCnc 113 High 60-105 mg/dL LAB 96616-8(INC) Lactate Bld-sCnc 1.3 0.5-2.2 mmol/L LAB 718-7([facility]) Hgb Bld-mCnc 13.4 13.0-17.0 g/dL LAB 4544-3([facility]) Hct VFr Bld Auto 41.2 39.0-51.0 % Performed By: #### ALLBG ### # [facility] CLIA [id number] [address] [place] [address] [place] OPERATIVE NO Observed: 05/27/2024 7:57 AM Status: COMPLETED Source: [facility] HNO ID: [id number] Author: JOSE EVANS MD Service: Neurosurgery Author Type: Physician Type: Operative Report Filed: 05/27/2024 12:38 Note Text: OPERATIVE/PROCEDURE REPORT NEUROSURGERY LOG ID: [id number] Surgery/Procedure Date: 05/27/2024 Incision/Procedure Start Time: 9:19 AM Incision Close/Procedure End Time: 11:50 AM Surgeon(s)/Proceduralist(s) and Stewarding Supervisor(s): Surgeons and Role: * Jose Evans MD - Primary * Dieudonne Link MD - Resident - Assisting * Nima Zaman MD - Fellow Procedure(s): 1. Left sided re-do craniotomy for tumor resection 2. Use of intraoperative neuronavigation for intradural procedure 3. 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 Evans), s/p chemo/RT, w/ recent MRI demonstrating disease progression Anesthesia: General Findings: 1. Near total resection of left temporal tumor 2. Frozen pathology consistent with high grade glioma Procedure Details: The patient was brought to the operating area, and an operative huddle (including the patient and team members from neurosurgery, anesthesiology, and nursing) was performed to confirm the patient's identity and procedure to be performed. The patient was then induced with general anesthesia and intubated. The appropriate lines were placed by the anesthesiology team. The Deng head clamp was applied to the patient's head and affixed to the OR table. The neuronavigation system using Tutum was then registered and accuracy was confirmed using external anatomical landmarks and previous imaging in the PACS system. IV antibiotics were then administered. Local anesthetic was infiltrated in the skin and a block performed. The patient was then clipped, prepped and draped in standard fashion for cranial surgery. A timeout was then performed in accordance with [facility] operative protocols. Prior incision re-opened using #10 blade scalpel on the left side. Cutaneous flaps were then elevated and a retractor was placed. Hemostasis was achieved. Prior bone flap hardware removed. The flap was carefully stripped of the dura and then held on the back table for temporary storage. Hemostasis was achieved. The operating exoscope was then introduced to the surgical field. Tumor was localized deep under the dura using the preoperatively planned surgical trajectory and the intraoperative navigation system. Dura was opened using #15 blade scalpel and metzenbaum scissors. Hemostasis was achieved. At the desired location, a corticectomy was performed. Tumor was visualized as keating and soft in appearance. After identifying tumor and normal brain margins, and with use of the intraoperative neuronavigation, the tumor was removed, while respecting the medial margin. A specimen was sent to pathology for frozen section, which was consistent with high grade glioma. After an adequate resection was achieved, hemostasis was obtained. Hemostasis was achieved with Surgicel, gel foam, patties, and irrigation. The dura was closed with 4-0 Nurolon stitches. A piece of duragen was placed over the dura. The bone flap was reattached in position using MRI-compatible titanium micro plates and screws. The craniotomy site then was copiously irrigated again and hemostasis achieved. All retracting devices were removed from the wound. All temporary implants were removed from the wound. Before closing, surgical count was correct and verified x 1. Soft tissue layers were closed with nurolon sutures for muscle, inverted Vicryl sutures and the skin was closed with wilfredo. A sterile dressing was then applied. At the end of the case, all counts were correct. The patient was gently emerged from anesthesia and extubated. Pt was then transferred to the recovery room in stable condition. Dr. Evans was scrubbed and performed the critical portion of the procedure. Dr. Link and Dr. Andrade directly assisted with opening and closure. Estimated Blood Loss: 100 mLs Specimens: ID Type Source Tests Collected by Time Destination A : left temporal tumor Tissue Brain, Biopsy SURGICAL PATHOLOGY Jose Evans MD 05/27/2024 10:06 AM B : Left temporal tumor Tissue Brain, Resection SURGICAL PATHOLOGY Jose Evans MD 05/27/2024 11:02 AM C : old cranial hardware Implant/Device/Foreign Body Hardware/Device/Foreign Body SURGICAL PATHOLOGY Jose Evans MD 05/27/2024 11:02 AM Implantable Devices: Implant Name Type Inv. Item Serial No. Medical Surgical Tech Lot No. LRB No. Used Action GRAFT DURAGEN PLUS BOVINE COLLAGEN MATRIX 2X2IN SOFT TISSUE PATCH - [id number] Framework - Tissue GRAFT DURAGEN PLUS BOVINE COLLAGEN MATRIX 2X2IN SOFT TISSUE PATCH [employer]URO [id number] Left 1 Implanted Drains: None Complications: None SIGNATURE: Dieudonne Link MD PATIENT NAME: Angel Keating DATE: May 27, 2024 TIME: 12:11 PM PAGER/CONTACT #: [phone] ANEPaz PRE-OP Observed: 05/27/2024 7:38 AM Status: COMPLETED Source: [facility] HNO ID: [id number] Author: SIM PRATT MD Service: ? Author Type: Anesthesiologist Type: Anesthesia Preprocedure Evaluation Filed: 05/27/2024 07:38 Note Text: ANESTHESIOLOGY DAY OF SURGERY NOTE : 1970 Procedure Information Date/Time: 05/27/24729 Procedures: STEREOTACTIC COMPUTER-ASSISTED NAVIGATIONAL PROCEDURE CRANIAL (Left: Brain) CRANIECTOMY EXCISION TUMOR, TREPHINATION, BONE FLAP CRANIOTOMY, SUPRATENTORIAL, EXCEPT MENINGIOMA (Left: Brain) Location: OR [facility] Surgeons: Jose Evans MD Estimated body mass index is 32.23 kg/m? as calculated from the following: Height as of 05/26/24: 177.2 cm (5' 9.75). Weight as of this encounter: 101.2 kg (223 lb). Most recent hematocrit and potassium results: Hematocrit 40.7 05/26/2024 Potassium 3.8 05/26/2024 Relevant Problems ANESTHESIA (+) PONV (postoperative nausea and vomiting) I - PHYSICAL EVALUATION AIRWAY Patient intubated: No. Tracheostomy tube not present Mallampati: III. TM distance: >3 FB. Neck ROM: full ROM without neurological symptoms. Mouth opening: adequate. Short neck: no. Thick neck: no DENTAL Dental findings: edentulous. II - ANESTHESIA PLAN ASA Score: 3 Anesthetic Plan: general Airway type: ETT NPO Status: adequate Beta Ani Monitoring Plan Monitoring plan: standard ASA and invasive hemodynamic monitoring. Monitoring method: arterial Line Post Procedure Analgesic Plan Postoperative analgesic plan: parenteral or oral opioids. Informed Consent Anesthetic risks, benefits, alternatives, personnel and consent discussed: yes. Patient / Responsible Alliance Party agrees to proceed: yes Patient / Surrogate agrees to blood products: Yes Potential Anesthesia issues that may suggest increased risk of complications or contraindication to planned procedure: none. Vitals Value Taken Time BP 134/85 10/18/24 0525 Pulse 70 05/27/24524 Resp 18 05/27/24524 Temp 36.9 ?C (98.4 ?F) 05/27/24524 SpO2 98 % 05/27/24524 Facility-Administered Medications as of 05/27/2024 Medication Dose Route Frequency - lidocaine (PF) 10 mg/mL (1 %) 1-2 mg injection (XYLOCAINE) 0.1-0.2 mL INTRADERMAL PRN Or - lidocaine 1% 0.25 mL subcutaneous j-tip syringe (XYLOCAINE) 0.25 mL SUBCUTANEOUS PRN - ceFAZolin iv piggyback 2 g in D5W (iso-osmotic) 100 mL (ANCEF) 2 g INTRAVENOUS Pre-Op Once Outpatient Medications as of 05/27/2024 Medication Sig - lacosamide (VIMPAT) 150 mg tab Take 1 tablet by mouth two times a day. - pantoprazole DR (PROTONIX) 20 mg tablet Take 1 tablet by mouth DAILY (6 AM). - ondansetron (ZOFRAN) 8 mg tablet Take one tablet by mouth one hour prior to chemo. May repeat dose every 8-12 hours if needed to prevent nausea - meclizine (ANTIVERT) 25 mg tab Take 1 tablet by mouth three times a day. - valACYclovir (VALTREX) 1 gram tablet Take 1,000 mg by mouth three times a day. - sennosides (SENNA ORAL) Take by mouth. - DIETARY SUPPLEMENT,MISC COMB14 ORAL Take by mouth. Biomega 1000mg containing vitamin E and pure anchovy - medical supply, miscellaneous (MISCELLANEOUS MEDICAL SUPPLY MISC) Neurotrophin - acetaminophen (TYLENOL) 325 mg tablet 2 tablets by ORAL/FEEDING TUBE route every 4 hours as needed for pain. I have interviewed and examined the patient. I have reviewed the medical record and/or the pre-anesthesia evaluation, pertinent labs, and test results. This contains updated information obtained within 48 hours of Surgery/Procedure. SIGNATURE: Sim Pratt MD PATIENT NAME: Angel Keating DATE: May 27, 2024 TIME: 7:38 AM CSN: [id number] TYPE + SCREEN Collected: 05/27/2024 5:36 AM Status: F Source: [facility] Order Comment: Specimen Type : BLOOD SPECIMEN Ordering Facility: [facility] Address: [address] [place] [address] TYPE CODE TESTS RESULT OUT OF RANGE REFERENCE UNITS LAB [id number] ABO A LAB [id number] RH Negative LAB [id number] ANTIBODY SCREEN Negative LAB [id number] TYPE AND SCREEN EXPIRATION 05/30/2024 23:59 Performed By: #### TSCR #### [facility] CLIA [id number] [address] [place] [address] [place] MRI BRAIN LOCAL W IVCON Observed: 2023 5:09 PM Status: F Source: [facility] * * *Final Report* * * DATE OF EXAM: May 26 2024 5:09PM QBM 0289 - MRI BRAIN LOCAL W IVCON / PROCEDURE REASON: Brain tumor (HCC) * * * * Physician Interpretation * * * * EXAMINATION: MRI BRAIN LOCAL W IVCON CLINICAL HISTORY: Presurgical planning. TECHNIQUE: Surgical planning MRI with axial postcontrast T1-weighted sequences, diffusion-weighted sequences, DTI sequences. MQ: [id number] Contrast: 20 mL Dotarem IV COMPARISON: MRI dated 04/12/2024 RESULT: No acute infarction on the diffusion-weighted sequences. Small area of diffusion restriction along the anterior temporal lobe likely hypercellular tumor. Redemonstration of large area of masslike enhancement in the LEFT anterolateral and medial temporal lobe increased compared to prior study, currently measuring 4.5 x 4.3 cm compared to 3.4 x 3 cm. This enhancement appears to be encasing the LEFT MCA M1 and M2 segments. Increasing T1 hypointense signal abnormality in the LEFT insula, temporal lobe suspicious for edema versus nonenhancing tumor. Increased mass effect and new minimal midline shift of approximately 1 mm towards RIGHT. Postsurgical changes of LEFT pterional craniotomy. IMPRESSION: 1. Presurgical planning study. Compared to prior study there is interval increase in the masslike enhancement in the LEFT anteromedial temporal lobe, along with increasing edema/nonenhancing tumor. 2. The enhancing tumor appears to be encasing the LEFT MCA M1 and proximal M2 segments. 3. Increased mass effect and new minimal midline shift of approximately 1 mm towards RIGHT. ACTIONABLE RESULT: FOLLOW-UP Acuity: Actionable Findings: Neurological System-BRAIN Routing Code: NI_1 Recommendation: Unlisted Recommendation (see report) Time Frame: as soon as possible, when the patient's clinical state allows. COMMUNICATION: Results will be communicated with the ordering provider via [employer] staff message or phone message by Imaging Support Services within 2 business days of report finalization. --END OF FINDING-- Call Worker Person: EMILI Transcribe Date/Time: May 26 2024 10:25P Dictated by : LACIE GARCIA MD This examination was interpreted and the report reviewed and electronically signed by: LACIE GARCIA MD on May 26 2024 10:31PM EST [id number] ACTIONABLE PROGRESS Observed: 05/26/2024 3:40 PM Status: COMPLETED Source: [facility] HNO ID: [id number] Author: BRENNA DAVIS RN Service: Radiology Author Type: Registered Nurse Type: Progress Notes Filed: 05/26/2024 16:06 Note Text: Radiology Service Progress Note DATE OF SERVICE: May 26, 2024 TIME: 3:56 PM PATIENT WEIGHT: 223 LBS PATIENT IDENTITY VERIFICATION COMPLETED USING TWO (2) STANDARD IDENTIFIERS: Name and Date of confirmed by patient verbally and Name and Date of confirmed by identification band. FALL SCREENING: Has the patient had 2 falls in the last year or 1 fall with injury or currently using an Ambulatory Assistive Device (Walker, Cane, Wheelchair, Crutches, etc.)? No PATIENT GENDER DATA: Male ALLERGIES: Reviewed and unchanged CONTRAST ALLERGY: No EXAM: MRI - CONTRAST TYPE: GROUP II IV SITE: Ambulatory: A power injectable Mediport was accessed in the Right chest in [place] lab. Blood Return, Flushed easily with normal saline, Good Blood Return Post Injection, and No Complications IV SITE APPEARANCE: Clean,Dry and Intact SIGNATURE: Brenna Davis RN PATIENT NAME: Angel Keating DATE: May 26, 2024 TIME: 3:56 PM US LEG VEIN DVT NACHO [facility] LAB Observed: 1:31 PM Status: F Source: [facility] Non-Invasive Vascular [facility] J35 Lower Extremity Venous Duplex Bilateral/Complete Date of service/time: 05/26/2024 1:31:36 PM Name: ANGEL KEATING Date of : 1970 Age: 53 years Gender: M Clinical Indication Preoperative evaluation for neurosurgery. TECHNIQUE -------- A venous duplex ultrasound examination was performed, including grayscale imaging with compression maneuvers and color Doppler and spectral Doppler examination with augmentation maneuvers and response to respiration of the below mentioned veins. FINDINGS -------- RIGHT SIDE Distal external iliac vein Doppler: normal flow. Compression: normal. Common femoral vein Doppler: normal flow. Compression: normal. Femoral vein Doppler: normal flow. Compression: normal. Popliteal vein Doppler: normal flow. Compression: normal. Posterior tibial veins Compression: normal. Peroneal veins Compression: normal. Great saphenous vein Compression: normal. Small saphenous vein Compression: normal. LEFT SIDE Distal external iliac vein Doppler: normal flow. Compression: normal. Common femoral vein Doppler: normal flow. Compression: normal. Femoral vein Doppler: normal flow. Compression: normal. Popliteal vein Doppler: normal flow. Compression: normal. Posterior tibial veins Compression: normal. Peroneal veins Compression: normal. Great saphenous vein Compression: normal. Small saphenous vein Compression: normal. IMPRESSION RIGHT SIDE - DEEP VEINS Negative for acute deep vein thrombosis. LEFT SIDE - DEEP VEINS Negative for acute deep vein thrombosis. Technologist: Karla Dorado T Ordering physician: JOSE EVANS Interpreting physician: KENDY Fernandez MD Final CC [employer] [facility] : [id number] See Link below for Image PROGRESS Observed: 05/26/2024 11:09 AM Status: COMPLETED Source: [facility] HNO ID: [id number] Author: HEIDI ARRIAZA RN Service: ? Author Type: Registered Nurse Type: Progress Notes Filed: 05/26/2024 11:14 Note Text: Patient education Worksheet- Neurosurgery Scheduled date of Surgery: May 27, 2024 Patient readiness to learn Motivation to learn: Eager Support: High Cognitive ability: Alert and oriented Influencing factors: None Physical limitations: None Learning preferences Patient learns best by: Indiviual instruction using multiple methods Instructions provided to: Patient Learning response Discipline: Nursing Diagnosis: Brain Tumor Procedure/Surgery: Left Craniotomy for tumor resection Content Survival Skills: Yes Lifestyle Changes No Health Promotion: No Patient evaluation: Verbalizes understanding Follow up plan: Complete No need for follow up The following materials were reviewed with the patient and family at this visit and were given in written form to the patient in a folder at a previous visit. -Booklet, Pamphlet and Your Surgical Guide -[facility] Post-operative Instructions Craniotomy/Biopsy -[facility] Teaching sheet for Deep Vein Thrombosis (DVT) -FAQ's about Surgical Site Infections IRB#[id number] Genetic and Molecular Analysis of Tumors of the Central Nervous System and their Coverings. A copy of the consent form was given to patient on May 26 Discussed with patient and family all risks, benefits, and alternatives with good understanding. Questions concerning enrollment were answered. Patient has read the informed consent. Patient states understanding and has agreed to participate on May 16 at 11:00am. Informed consent obtained and copy given to the patient. Fiducials #9 placed to head in usual array for stereo MRI. Heidi Arriaza FILLER SIFTER MACHINE Banking Supervisor [phone]. HISTORY PHYSICAL Observed: 05/26/2024 10:40 AM Status: COMPLETED Source: [facility] HNO ID: [id number] Author: EUSEBIO RAMIREZ APRN.MANUFACTURING ENGINEERING MANAGER Service: ? Author Type: Nurse Practitioner Type: H&P Filed: 05/26/2024 12:23 Note Text: [facility] HISTORY AND PHYSICAL EXAMINATION SERVICE DATE: 05/26/2024 SERVICE TIME: 11:31 AM PRIMARY CARE PHYSICIAN: No primary care provider on file. 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 Endorses a noticeable sensation/awareness in his head onset 7-10 days ago, similar symptoms to 13 months ago. Plan for above surgery. Managed on vimpat BID Obesity, Class I, BMI 30-34.9 BMI 32.24 [place] Activity Status Index: METS: Walk indoors, such as around the house (1.75 METs) Do light work around the house, such as dusting or washing dishes (2.70 METs) Take care of self; that is eating, dressing, bathing, using the toilet (2.75 METs) Walk a block or two on level ground (2.75 METs) Do moderate work around the house, such as vacuuming, sweeping floors, or carrying in groceries (3.50 METs) Climb a flight of stairs or walk up a hill (5.50 METs) DASI Score: 18.95 Patient denies any chest pain or undue shortness of breath with the above physical activity. Clinical Frailty Scale: 4. Apparently vulnerable STOP-Bang Score: Snores loudly Patient over 50 years old Male patient Denies feeling tired, fatigued, or sleepy during the daytime Has not been observed to stop breathing or choking/gasping during sleep Denies having high blood pressure BMI less than or equal to 35 kg/m2 Does not have a large neck STOP-Bang Score: 3 ANESTHESIA FINDINGS: Intubation History: No history of difficult intubation. No abnormal airway history Significant Anesthesia Considerations: R chest wall medport potential postop nausea/vomiting Airway History: No history of difficult airway No abnormal airway history I - PHYSICAL EVALUATION AIRWAY Patient intubated: No. Tracheostomy tube not present Mallampati: IV. TM distance: >3 FB. Neck ROM: full ROM without neurological symptoms. Mouth opening: adequate. Short neck: no. Thick neck: yes Turner present: yes Lip Bite Test: II Microretrognathia/Micronagthia/Recessed Chin: No DENTAL Dental findings: teeth intact. Additional comments: crowns . II - ANESTHESIA PLAN Anesthetic plan additional comments: *PACC/TCI - anesthesia choice. Beta Ani Monitoring Plan Post Procedure Analgesic Plan Prepared for Surgery: optimally prepared for surgery, pending [see comment]. Patient was seen in [facility] day before surgery TANDS, PT, PTT, BMP, CBC ordered by surgical service Prior labs --- CMP, CBC, PT, ordered by heme onc reviewed and accepted from 05/12/24 EKG reviewed and accepted from 05/12/24 CONSULTS: Patient does not require consults for optimization at this time Planned Anesthetic: anesthesia choice The Following Tests/Procedures Have Been Initiated: No orders of the defined types were placed in this encounter. REASON FOR VISIT: Angel Keating is a 53 year old male who is scheduled for Procedure(s): STEREOTACTIC COMPUTER-ASSISTED NAVIGATIONAL PROCEDURE CRANIAL (Left) CRANIECTOMY EXCISION TUMOR, TREPHINATION, BONE FLAP CRANIOTOMY, SUPRATENTORIAL, EXCEPT MENINGIOMA (Left) at the request of Jose Rojas MD for consultation. My final recommendation will be communicated back to the requesting physician by way of shared medical record or letter. Subjective The patient has the following: COVID-19 Immunization Status Overdue - Covid-19 Vaccine () Overdue since 04/10/2024 06/16/2023 Outside Immunization: COVID-19, mRNA, LNP-S, PF, 50 mcg/0.5 mL 06/28/2021 Imm Admin: COVID-19 original vaccine, full dose, monovalent (MODERNA) 09/07/2020 Outside Immunization: COVID-19, mRNA, LNP-S, PF, 100 mcg/0.5mL dose or 50 mcg/0.25mL dose Only the first 3 history entries have been loaded, but more history exists. CHIEF COMPLAINT: Preop exam HPI: Angel Keating is a 53 year old male. Presents to [facility] today for preop exam. Patient is scheduled for the above procedure on 05/27/24. 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 Endorses a noticeable sensation/awareness in his head onset 7-10 days ago, similar symptoms to 13 months ago. Plan for above surgery. Denies fevers, chills, chest pain, and SOB. REVIEW OF SYSTEMS: General: Obesity Negative for: weight loss >10% of BW in last 6 months, malaise and fever. Neurological: See HPI. Positive for: PATENT PARALEGAL tumor and seizures. Negative for: delirium, dementia, headaches, multiple sclerosis, Parkinson's disease, TIA and strokes. Respiratory: Negative for: asthma, COPD, current cough, dyspnea, home oxygen, pneumonia within 6 weeks, tobacco use, URI < 2 weeks and obstructive sleep apnea. Cardiovascular: Negative for: angina, arrhythmia, CAD, chest pain, CHF, DVT/PE, hyperlipidemia, hypertension, recent AK, PTCA, PVD and open heart surgery. GI: Negative for: abdominal pain, colon cancer, dysphagia, diverticulitis, GERD, heartburn, hepatitis, irritable bowel syndrome, inflammatory bowel disease, liver disease, nausea, pancreatitis, history of polyps, rectal cancer and vomiting. : +hx post op urinary retention, states difficult to go but did not need catheterization Negative for: BPH, decreased stream, dysuria, flank pain, frequent urination, hematuria, hesitancy, urinary incontinence, nephrolithiasis, renal failure, self catheterization and urinary tract infection. Endocrine: Negative for: diabetes mellitus, diabetic neuropathy, hyperthyroidism, hypothyroidism, hyperparathyroidism and steroid for chronic problem. Hematology: Negative for: anemia, bruises/bleeds easily, factor V Leiden, hemophilia, thrombocytopenia, von Willebrand disease and chronic anti-coagulation/platelet meds. Oncology: See HPI. Negative for: CA metastasis and chemo within 30 days. Psych: Negative for: ADHD, anxiety, bipolar disorder, depression and drug dependency. Musculoskeletal: Negative for: back pain, joint pain and swelling. Skin: Negative for: lesions, itching and rash. PAST MEDICAL HISTORY Diagnosis Date At risk for seizures 03/19/2023 due to left temporal glioblastoma GBM (glioblastoma multiforme) (HCC) 03/19/2023 WHO Grade 4 GBM; IDH1 R132H negative (wildtype); ATRX retained (wildtype); BRAF V600E negative (wildtype); p53 strong up to 40%; Ki67 up to 25%, MGMT unmethylated PAST SURGICAL HISTORY Procedure Laterality Date APPENDECTOMY 1976 removed as part of internal bleeding due to trauma COLONOSCOPY FLX DX W/COLLJ SPEC WHEN PFRMD Colonoscopy ESOPHAGOGASTRODUODENOSCOPY TRANSORAL DIAGNOSTIC EGD EXCIS SUPRATENT BRAIN TUMOR 03/19/2023 Left-sided craniotomy for temporal mass resection by Dr. Evans; path = GBM ORTHOPEDICS SURGERY HX 1996 knee surgery SHX CRANIOTOMY Left 03/19/2023 FAMILY HISTORY Problem Relation Age of Onset Diabetes Father Coronary Artery Disease Father Stroke Father Breast Cancer Mother None Sister Anesthesia Problems No Family History Social History Tobacco Use Smoking status: Former Current packs/day: 1.00 Average packs/day: 1 pack/day for 4.0 years (4.0 ttl pk-yrs) Types: Cigarettes Smokeless tobacco: Never Vaping Use Vaping status: Never Used Substance Use Topics Alcohol use: Not Currently Comment: three beers a month - per pt [id number] Prior to Admission medications as of 05/26/24 1134 Medication Sig Last Dose Taking methIMAzole (TAPAZOLE) 10 mg tablet Take TWO 10 mg tablets and ONE 5 mg tablet for a total dose of 25 mg, daily. Taking Yes methIMAzole (TAPAZOLE) 5 mg tablet Take TWO 10 mg tablets and ONE 5 mg tablet for a total dose of 25 mg, daily. Taking Yes lacosamide (VIMPAT) 150 mg tab Take 1 tablet by mouth two times a day. Taking Yes ondansetron (ZOFRAN) 8 mg tablet Take one tablet by mouth one hour prior to chemo. May repeat dose every 8-12 hours if needed to prevent nausea meclizine (ANTIVERT) 25 mg tab Take 1 tablet by mouth three times a day. valACYclovir (VALTREX) 1 gram tablet Take 1,000 mg by mouth three times a day. midazolam (NAYZILAM) 5 mg/spray (0.1 mL) nasal spray Use 1 [place] in the nose as needed for up to 10 days. May repeat dose in alternate nostril after 10 minutes based on response and tolerability. sennosides (SENNA ORAL) Take by mouth. DIETARY SUPPLEMENT,MISC COMB14 ORAL Take by mouth. Biomega 1000mg containing vitamin E and pure anchovy medical supply, miscellaneous (MISCELLANEOUS MEDICAL SUPPLY MISC) Neurotrophin acetaminophen (TYLENOL) 325 mg tablet 2 tablets by ORAL/FEEDING TUBE route every 4 hours as needed for pain. pantoprazole DR (PROTONIX) 20 mg tablet Take 1 tablet by mouth DAILY (6 AM). No medication comments found. ALLERGIES No Known Allergies Objective PHYSICAL EXAM: General: alert and oriented, healthy appearance and obese. Pertinent negatives noted - not distressed. Skin: normal color, no rash or lesions. HEENT: EOM intact and pupils equal round. Cardiovascular: regular rate and rhythm, normal S1 and S2, no rub, murmurs, or gallop. Respiratory: normal breath sounds, no wheezes or crackles. No chest wall deformity or tenderness. Abdomen: Extremities: no deformity, no edema or tenderness, no joint swelling or clubbing. Neurological: normal cognition and motor skills. Gait normal. No weakness or sensory deficit. PAIN ASSESSMENT: VITALS: BP 136/82 Pulse 84 Temp (Src) 96.7 (Temporal) Ht 5' 9.75 (1.77m) Wt 223 lb 1.7 oz (101.2kg) SpO2 96% BMI 32.23 kg/(m2). Diagnostic tests reviewed for today's visit: Lab Value Units Date High Low HB 14.2 g/dL 05/26/2024 17.0 13.0 HCT 40.7 % 05/26/2024 51.0 39.0 WBC 5.94 k/uL 05/26/2024 11.00 3.70 PLT 222 k/uL 05/26/2024 400 150 NA 138 mmol/L 05/26/2024 144 136 K 3.8 mmol/L 05/26/2024 5.1 3.7 GLUC 132 mg/dL 05/26/2024 99 74 BUN 19 mg/dL 05/26/2024 24 9 CREAT 1.21 mg/dL 05/26/2024 1.22 0.73 PTSEC 10.7 sec 05/12/2024 13.0 9.7 INR 1.0 no uni* 05/12/2024 1.3 0.9 APTT 29.4 sec 02/08/2024 32.4 23.0 ALT 9 U/L 05/26/2024 54 10 AST 13 U/L 05/26/2024 40 14 TBILI 0.6 mg/dL 05/26/2024 1.3 0.2 TSH 1.410 mIU/L 05/26/2024 4.200 0.270 Lab Value Units Date High Low HCGQT No results within date range. UHCG No results within date range. HCG, BODY* No results within date range. Lab Value Units Date High Low ABORHD No results within date range. ABSCREEN No results within date range. Hemoglobin A1C (%) Date Value 03/17/2023 5.5 Recent Results (from the past 8760 hour(s)) ECG COMPLETE Collection Time: 05/12/24 10:09 AM Result Value Ventricular Rate 56 Atrial Rate 56 P-R Interval 154 QRS Duration 92 QT Interval 402 QTC Calculation (Bazett) 387 Calculated P [place] 35 Calculated R [place] 2 Calculated T [place] 15 Impression SINUS BRADYCARDIA OTHERWISE NORMAL ECG Recent Results (from the past 86069 hour(s)) ECHO Collection Time: 11/03/23 9:54 AM Impression CONCLUSIONS: - Technically difficult exam due to suboptimal positioning. - Exam indication: Syncope - The left ventricle is normal in size. Left ventricular systolic function is normal. EF = 60 ? 5% (2D biplane) - The right ventricle is normal in size. Right ventricular systolic function is normal. - The visualized aorta is borderline dilated with a maximal dimension of 3.9 cm. - There are no significant valvular abnormalities. - The patient has not had a prior CC echocardiographic exam for comparison. * * * Final * * * Instructions Given to Patient: Instructions located in the after visit summary. Patient given verbal and written preop instructions and voices comprehension and compliance. SIGNATURE: Eusebio Ramirez APRN.CNP PATIENT NAME: Angel Keating DATE: May 26, 2024 TIME: 12:23 PM PAGER/CONTACT #: PROGRESS Observed: 05/26/2024 10:08 AM Status: COMPLETED Source: [facility] ID: [id number] Author: CATINA GALVIN RN Service: ? Author Type: Registered Nurse Type: Progress Notes Filed: 05/27/2024 16:09 Note Text: IRB#: [id number] Case 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 Enriquez Study start date: 05/24/2024 (start of Pre-Op Methimazole) Date: 05/26/2024 - Pre-Surgical Visit Accompanied by: self Denies numbness, weakness, gait imbalance, seizures, headaches, or visual disturbances. Denies SOB, no edema, no falls. HANDP, neuro exam: seen by surgical team Patient continues to be an appropriate surgical candidate per Dr. Evans: YES Change in KPS: NO; Patient's KPS: 90: Able to carry on normal activity; minor signs or symptoms of disease Steroid dose: none Changes in medication regimen: No Any new thyroid medications added to regimen: No Treatment plan: Pre-operative treatment Phase -Methimazole - Pre-Op period: 05/24/2024 to 05/27/2024 (last dose is DAY of surgery) -Dose level 2 (25 mg daily) Surgical resection -Surgery 05/27/[address] Evans C1D1 (10-28 days after surgery) -Scheduled for 06/16/2024 (20 days post op) -Methimazole - Post-Op period: 05/27/2024- TBD -Dose level 2 (25 mg daily) Education: Immunotherapy wallet card given: NO First dose education on schedules, treatment calendar, medication(s) (Methimazole) and side effects presented to patient. Questions answered. 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 More sensitivity to cold. Constipation. Dry skin. Weight gain. Puffy face. Hoarse voice. Coarse hair and skin. Muscle weakness. Muscle aches, tenderness and stiffness. Menstrual cycles that are heavier than usual or irregular. Thinning hair. Slowed heart rate, also called bradycardia. Depression. Memory problems. Does patient have any signs or symptoms of hypothyroidism: No Hyperthyroidism sometimes looks like other health problems: Losing weight without trying. Fast heartbeat, a condition called tachycardia. Irregular heartbeat, also called arrhythmia. Pounding of the heart, sometimes called heart palpitations. Increased hunger. Nervousness, anxiety and irritability. Tremor, usually a small trembling in the hands and fingers. Sweating. Changes in menstrual cycles. Increased sensitivity to heat. Changes in bowel patterns, especially more-frequent bowel movements. Enlarged thyroid gland, sometimes called a goiter, which may appear as a swelling at the base of the neck. Tiredness. Muscle weakness. Sleep problems. Warm, moist skin. Thinning skin. Fine, brittle hair. Does patient have any signs or symptoms of hyperthyroidism: No Vitals in clinic: 05/26/2024 ONCOLOGY VITALS (ALL DEPTS) Temp 35.9 ?C (96.7 ?F) ! Temp 36 ?C (96.8 ?F) Pulse 84 Pulse 74 Resp 15 SYSTOLIC 136 SYSTOLIC 149 DIASTOLIC 82 DIASTOLIC 83 SpO2 96 % SpO2 98 % Height 177.2 cm (5' 9.75) Height 175.3 cm (5' 9) Height 70 in Height 69 in Height 177.2 cm Height 175.3 cm WEIGHT (lb) 223 lb 1.7 oz WEIGHT (lb) 223 lb WEIGHT (kg) 101.2 kg WEIGHT (kg) 101.152 kg BSA (Mosteller Formula) 2.23 m2 BSA (Mosteller Formula) 2.22 m2 BMI 32.24 kg/m2 BMI 32.93 kg/m2 Legend: ! Abnormal Weight obtained: YES Labs: TFTs (TSH, T3, T4, free T3 and free T4) reviewed and appropriate to start Methimazole: YES Baseline CrCl (05/12/2024): 99 ml/min (based on sCr of 1.20 mg/dL) Today's CrCl (05/26/2024): 99 ml/min (based on sCr of 1.21 mg/dL) CrCl is >= 50 ml/min to start: YES Out out of range values: NCS Negative Serum test, if applicable: N/A Resection: Patient's neurosurgeon: Dr. Evans Surgery date: 05/27/2024 Dr. Evans aware patient will need to take Methimazole morning of surgery despite NPO status: CORRECT Trial Medications: Orders signed for Methimazole to begin >= 5 days prior to the above surgery date: NO; per PI Dr. Barba, patient started Methimazole on 05/24/2024 Patient is dose level: 2 Dose level - Methimazole - Pre-surgery -1 10 mg daily, >= 5 days prior 1 15 mg daily, >= 5 days prior 2 25 mg daily, >= 5 days prior Methimazole dispensed today by [facility] pharmacy and patient has brought medication to clinic visit: YES Patient received 2 bottles of Methimazole (one 10 mg strength, one 5 mg strength) one bottle of 60 tablets of 10 mg strength; one bottle of 30 tablets of 5 mg strength Patient is aware to keep pill bottles and return to research staff as drug will be destroyed on site following return of unused medication: CORRECT Methimazole may be taken with or without food but it must be swallowed whole without crushing or chewing: Take two 10 mg tablets and one 5 mg tablet for a total dose of 25 mg, daily for at least 5 days prior to surgery. Patient is due to start Pre-Op Methimazole on: 05/24/2024 Correlative study lab (up to 3 days before starting drug) has been: Completed, Patient will take last dose of Methimazole the morning of surgery: YES Was any Methimazole dose changed, missed, reduced or held: No Ongoing AE Grade Scale Assessment - CTCAE v.5: Neuro, other (thought process changes) - Grade 1 - Baseline; Probable to study disease. Symptom is: Controlled with no intervention; Approximately started: 03/16/2023 to present; Baseline at screening 04/09/2023 Seizures (at risk for) - Grade 1 - Baseline; Unrelated to historical disorder/disease; Probable to study disease. 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 Symptom is: Controlled with lifestyle changes; Approximately started: 05/12/2024 to present; Baseline at screening 05/12/2024; upgraded to grade 2 on 05/26/2024; Current status: Ongoing - worsening NEW AEs: none RESOLVED AEs: none Patient does continue to meet eligibility to proceed with therapy per Dr. Enriquez: YES Discharged in apparent satisfactory condition. All questions answered. Patient agrees to call with questions, concerns, change in symptoms. Patient agreed to call with any symptoms or side effects not mentioned. Patient agreed to plan. Patient has the contact information for treating physician, research staff and the 24-hour [id number]-Ntek number ([phone] or ) for the Heme/Onc Fellow. prescription order Catina Galvin RN 05/26/2024 10:09 AM Chart routed to Dr. Enriquez (Primary): YES CNNURSE Observed: 05/26/2024 10:00 AM Status: COMPLETED Source: [facility] Nurse Visit (NSCAMN) ANGEL KEATING ([id number]) 1970 M Date Time Provider Department 05/26/24 10:00 AM HEIDI ARRIAZA [facility] During your visit today, we recorded the following information about you: Heidi Arriaza RN 05/26/2024 11:14 AM Signed Patient education Worksheet- Neurosurgery Scheduled date of Surgery: May 27, 2024 Patient readiness to learn Motivation to learn: Eager Support: High Cognitive ability: Alert and oriented Influencing factors: None Physical limitations: None Learning preferences Patient learns best by: Indiviual instruction using multiple methods Instructions provided to: Patient Learning response Discipline: Nursing Diagnosis: Brain Tumor Procedure/Surgery: Left Craniotomy for tumor resection Content Survival Skills: Yes Lifestyle Changes No Health Promotion: No Patient evaluation: Verbalizes understanding Follow up plan: Complete No need for follow up The following materials were reviewed with the patient and family at this visit and were given in written form to the patient in a folder at a previous visit. -Booklet, Pamphlet and Your Surgical Guide -[facility] Post-operative Instructions Craniotomy/Biopsy -[facility] Teaching sheet for Deep Vein Thrombosis (DVT) -FAQ's about Surgical Site Infections IRB#[id number] Genetic and Molecular Analysis of Tumors of the Central Nervous System and their Coverings. A copy of the consent form was given to patient on May 26 Discussed with patient and family all risks, benefits, and alternatives with good understanding. Questions concerning enrollment were answered. Patient has read the informed consent. Patient states understanding and has agreed to participate on May 16 at 11:00am. Informed consent obtained and copy given to the patient. Fiducials #9 placed to head in usual array for stereo MRI. Heidi Arriaza FILLER SIFTER MACHINE Banking Supervisor [phone]. Referring Provider: JOSE EVANS [[id number]] Allergies As of Date: 05/26/2024 (No Known Allergies) Date Reviewed: 05/26/2024 Reviewed by: Brittany Manrique OCCA - Fully Assessed Primary Visit Diagnosis:GBM (glioblastoma multiforme) (HCC) [C71.9] Prescriptions as of 05/26/2024 - methIMAzole (TAPAZOLE) 10 mg tablet Take TWO 10 mg tablets and ONE 5 mg tablet for a total dose of 25 mg, daily. - methIMAzole (TAPAZOLE) 5 mg tablet Take TWO 10 mg tablets and ONE 5 mg tablet for a total dose of 25 mg, daily. - ondansetron (ZOFRAN) 8 mg tablet Take one tablet by mouth one hour prior to chemo. May repeat dose every 8-12 hours if needed to prevent nausea - lacosamide (VIMPAT) 150 mg tab Take 1 tablet by mouth two times a day. - meclizine (ANTIVERT) 25 mg tab Take 1 tablet by mouth three times a day. - valACYclovir (VALTREX) 1 gram tablet Take 1,000 mg by mouth three times a day. - midazolam (NAYZILAM) 5 mg/spray (0.1 mL) nasal spray Use 1 [place] in the nose as needed for up to 10 days. May repeat dose in alternate nostril after 10 minutes based on response and tolerability. - sennosides (SENNA ORAL) Take by mouth. - DIETARY SUPPLEMENT,MISC COMB14 ORAL Take by mouth. Biomega 1000mg containing vitamin E and pure anchovy - medical supply, miscellaneous (MISCELLANEOUS MEDICAL SUPPLY MISC) Neurotrophin - acetaminophen (TYLENOL) 325 mg tablet 2 tablets by ORAL/FEEDING TUBE route every 4 hours as needed for pain. - pantoprazole DR (PROTONIX) 20 mg tablet Take 1 tablet by mouth DAILY (6 AM). Problem List As Of Date 05/26/2024 Noted Resolved Chest Pain [R07.9] 04/25/2010 Brain mass [G93.89] 03/17/2023 11/17/2023 Obesity, Class I, BMI 30-34.9 [E66.811] 03/17/2023 Brain compression (HCC) [G93.5] 03/20/2023 S/P brain surgery [Z98.890] 03/20/2023 11/17/2023 At risk for seizures [Z91.89] 03/20/2023 Cerebral edema (HCC) [G93.6] 03/20/2023 GBM (glioblastoma multiforme) (HCC) [C71.9] 04/07/2023 Syncope, unspecified syncope type [R55] 11/01/2023 11/03/2023 Examination of participant in clinical trial [Z*11/05/2023 11/17/2023 Forehead pain [R51.9] 11/05/2023 Encounter Status:Closed by HEIDI ARRIAZA on 05/26/24 CNNURSE Observed: 05/26/2024 10:00 AM Status: COMPLETED Source: [facility] Nurse Visit (DURAN WEEKS) ANGEL KEATING ([id number]) 1970 M Date Time Provider Department 05/26/24 10:00 AM NADEEN BECKETT During your visit today, we recorded the following information about you: Temperature Pulse Respiration Weight 96.8 degrees 72/minute 15/minute 101.2 kg Height 1.753 m Darby Persaud MA 05/26/2024 10:02 AM Signed Additional intake questions: Has the patient had fever, nausea, vomiting, diarrhea, constipation, fatigue for > 1 week? No Does the patient have a decreased appetite? No Does patient want to see a Outside Solar Sales Consultant? No (yes to any of above refer patient to schedulers for dietitian appointment) ) Does patient have any new or increased numbness or tingling of extremities? No Is patient interested in fertility information? No Does patient need any prescription refills? No Does patient have an advanced directive in place? No, Patient referred to Social Work Electronically Signed By: Darby Persaud MA Referring Provider: PATRICIA ENRIQUEZ [[id number]] Allergies As of Date: 05/26/2024 (No Known Allergies) Date Reviewed: 05/26/2024 Reviewed by: Brenna Davis RN - Fully Assessed Reason for Visit: Established Patient Follow-Up [[id number]] Primary Visit Diagnosis:GBM (glioblastoma multiforme) (HCC) [C71.9] Prescriptions as of 06/10/2024 - iv contrast (will be provided with radiology test) MRI Brain Inject, intravenously, once for 1 dose.No IV access, insert saline lock prior to beginning of sedation, infusion, injection of imaging exam.Discontinue saline lock post exam. If Pt. has a central line or IVAD, may access for administration according to line specific nursing protocol.Once exam is complete flush line and de-access according to line specific nursing protocol in the MR contrast administration guidelines link - dexAMETHasone (DECADRON) 2 mg tablet Take 4 tablets by mouth two times a day with meals for 4 days, THEN 3 tablets two times a day with meals for 4 days, THEN 2 tablets two times a day with meals for 4 days, THEN 1 tablet two times a day with meals. - polyethylene glycol 3350 (MIRALAX) 17 gram/dose powder Take 17 g ( 1 capful) by mouth once daily for 10 days. Dissolve dose in 4 - 8 ounces of liquid and take as directed. - iv contrast (will be provided with radiology test) MRI Brain Inject, intravenously, once for 1 dose.No IV access, insert saline lock prior to beginning of sedation, infusion, injection of imaging exam.Discontinue saline lock post exam. If Pt. has a central line or IVAD, may access for administration according to line specific nursing protocol.Once exam is complete flush line and de-access according to line specific nursing protocol in the MR contrast administration guidelines link - methIMAzole (TAPAZOLE) 10 mg tablet Take TWO 10 mg tablets and ONE 5 mg tablet for a total dose of 25 mg, daily. - methIMAzole (TAPAZOLE) 5 mg tablet Take TWO 10 mg tablets and ONE 5 mg tablet for a total dose of 25 mg, daily. - ondansetron (ZOFRAN) 8 mg tablet Take one tablet by mouth one hour prior to chemo. May repeat dose every 8-12 hours if needed to prevent nausea - lacosamide (VIMPAT) 150 mg tab Take 1 tablet by mouth two times a day. - meclizine (ANTIVERT) 25 mg tab Take 1 tablet by mouth three times a day. - valACYclovir (VALTREX) 1 gram tablet Take 1,000 mg by mouth three times a day. - midazolam (NAYZILAM) 5 mg/spray (0.1 mL) nasal spray Use 1 [place] in the nose as needed for up to 10 days. May repeat dose in alternate nostril after 10 minutes based on response and tolerability. - sennosides (SENNA ORAL) Take by mouth. - DIETARY SUPPLEMENT,MISC COMB14 ORAL Take by mouth. Biomega 1000mg containing vitamin E and pure anchovy - medical supply, miscellaneous (MISCELLANEOUS MEDICAL SUPPLY MISC) Neurotrophin - acetaminophen (TYLENOL) 325 mg tablet 2 tablets by ORAL/FEEDING TUBE route every 4 hours as needed for pain. - pantoprazole DR (PROTONIX) 20 mg tablet Take 1 tablet by mouth DAILY (6 AM). Problem List As Of Date 05/26/2024 Noted Resolved Chest pain [R07.9] 04/25/2010 05/26/2024 Brain mass [G93.89] 03/17/2023 11/17/2023 Obesity, Class I, BMI 30-34.9 [E66.811] 03/17/2023 Brain compression (HCC) [G93.5] 03/20/2023 S/P brain surgery [Z98.890] 03/20/2023 11/17/2023 At risk for seizures [Z91.89] 03/20/2023 Cerebral edema (HCC) [G93.6] 03/20/2023 GBM (glioblastoma multiforme) (HCC) [C71.9] 04/07/2023 Syncope, unspecified syncope type [R55] 11/01/2023 11/03/2023 Examination of participant in clinical trial [Z*11/05/2023 11/17/2023 Forehead pain [R51.9] 11/05/2023 PONV (postoperative nausea and vomiting) [R11.2*05/26/2024 Visit Notes: >> Darby Persaud MA [facility] May 26, 2024 9:58 AM Status: Signed Additional intake questions: Has the patient had fever, nausea, vomiting, diarrhea, constipation, fatigue for > 1 week? No Does the patient have a decreased appetite? No Does patient want to see a Outside Solar Sales Consultant? No (yes to any of above refer patient to schedulers for dietitian appointment) ) Does patient have any new or increased numbness or tingling of extremities? No Is patient interested in fertility information? No Does patient need any prescription refills? No Does patient have an advanced directive in place? No, Patient referred to Social Work Electronically Signed By: Darby Persaud MA Medications Discontinued During This Encounter Prescriptions - iv contrast (will be provided with radiology test) (Discontinued) MRI Brain Inject, intravenously, once for 1 dose.No IV access, insert saline lock prior to beginning of sedation, infusion, injection of imaging exam.Discontinue saline lock post exam. If Pt. has a central line or IVAD, may access for administration according to line specific nursing protocol.Once exam is complete flush line and de-access according to line specific nursing protocol in the MR contrast administration guidelines link - iv contrast (will be provided with radiology test) (Discontinued) MRI Brain Inject, intravenously, once for 1 dose.No IV access, insert saline lock prior to beginning of sedation, infusion, injection of imaging exam.Discontinue saline lock post exam. If Pt. has a central line or IVAD, may access for administration according to line specific nursing protocol.Once exam is complete flush line and de-access according to line specific nursing protocol in the MR contrast administration guidelines link - iv contrast (will be provided with radiology test) (Discontinued) MRI Brain Inject, intravenously, once for 1 dose.No IV access, insert saline lock prior to beginning of sedation, infusion, injection of imaging exam.Discontinue saline lock post exam. If Pt. has a central line or IVAD, may access for administration according to line specific nursing protocol.Once exam is complete flush line and de-access according to line specific nursing protocol in the MR contrast administration guidelines link Encounter Status:Closed by NADEEN BECKETT on 06/10/24 T3FREE SERPL-MCNC Collected: 05/26/2024 9:35 AM Stat us: F Source: [facility] Comment: Specimen Type : BLOOD SPECIMEN Ordering Facility: [facility] Address: [address] [place] [address] TYPE CODE TESTS RESULT OUT OF RANGE REFERENCE UNITS LAB 3051-0(LOINC) T3Free SerPl-mCnc 3.4 2.3-4.1 pg/mL Performed By: #### 3026-2, 3 051-0, 3053-6, 3024-7 #### [facility] CLIA [id number] [address] [place] [address] [place] T4 FREE SERPL-MCNC Collected: 05/26/2024 9:35 AM Sta tus: F Source: [facility] Comment: Specimen Type : BLOOD SPECIMEN Ordering Facility: [facility] Address: [address] [place] [address] TYPE CODE TESTS RESULT OUT OF RANGE REFERENCE UNITS LAB 3024-7(LOINC) T4 Free SerPl-mCnc 1.5 0.9-1.7 ng/dL Performed By: #### 3026-2, 3 051-0, 3053-6, 3024-7 #### [facility] CLIA [id number] [address] [place] [address] [place] T3 SERPL-MCNC Collected: 05/26/2024 9:35 AM Status: F Source: [facility] Comment: Specimen Type : BLOOD SPECIMEN Ordering Facility: [facility] Address: [address] [place] [address] TYPE CODE TESTS RESULT OUT OF RANGE REFERENCE UNITS LAB 3053-6(LOINC) T3 SerPl-mCnc 116 79-165 ng/d L Performed By: #### 3026-2, 3 051-0, 3053-6, 3024-7 #### [facility] CLIA [id number] [address] [place] [address] [place] T4 SERPL-MCNC Collected: 05/26/2024 9:35 AM Status: F Source: [facility] Order Comment: Specimen Type : BLOOD SPECIMEN Ordering Facility: [facility] Address: [address] [place] [address] TYPE CODE TESTS RESULT OUT OF RANGE REFERENCE UNITS LAB 3026-2([facility]) T4 SerPl-mCnc 7.2 5.5-10.2 ug/ dL Performed By: #### 3026-2, 3 051-0, 3053-6, 3024-7 #### [facility] CLIA [id number] [facility] [id number] [place] [address] [place] COMP METAB 2000 PNL SERPL Collected: 9:35 AM Status: F Source: [facility] Order Comment: Specimen Type : BLOOD SPECIMEN Ordering Facility: [facility] Address: [address] [place] [address] TYPE CODE TESTS RESULT OUT OF RANGE REFERENCE UNITS LAB 2885-2(LOINC) Prot SerPl-mCnc 6.7 6.3-8.0 g/dL LAB 1751-7(LOINC) Albumin SerPl-mCnc 3.9 3.9-4.9 g/dL LAB 80063-7(LOINC) Calcium SerPl-mCnc 8.8 8.5-10.2 mg/dL LAB 1975-2(LOINC) Bilirub SerPl-mCnc 0.6 0.2-1.3 mg/dL LAB 6768-6(LOINC) ALP SerPl-cCnc 92 38-113 U/L LAB 1920-8(LOINC) AST SerPl-cCnc 13 Low 14-40 U/L LAB 1742-6(LOINC) ALT SerPl-cCnc 9 Low 10-54 U/L LAB 2345-7(LOINC) Glucose SerPl-mCnc 132 High 74-99 mg/dL Result Comment: The [place] Diabetes [employer] (ADA) provides guidance for cutoff values for fasting glucose and random glucose. The ADA defines fasting as no caloric intake for at least 8 hours. Fasting plasma glucose results between 100 to 125 mg/dL indicate increased risk for diabetes (prediabetes). Fasting plasma glucose results greater than or equal to 126 mg/dL meet the criteria for diagnosis of diabetes. In the absence of unequivocal hyperglycemia, results should be confirmed by repeat testing. In a patient with classic symptoms of hyperglycemia or hyperglycemic crisis, random plasma glucose results greater than or equal to 200 mg/dL meet the criteria for diagnosis of diabetes. Reference: Standards of Medical Care in Diabetes 2016, [place] Diabetes Association. Diabetes Care. 2016.39(Suppl 1). LAB 3094-0(LOINC) BUN SerPl-mCnc 19 9-24 mg/ dL LAB 2160-0(LOINC) Creat SerPl-mCnc 1.21 0.73-1.22 mg/dL LAB 2951-2(LOINC) Sodium SerPl-sCnc 138 136-144 mmol/L LAB 2823-3(LOINC) Potassium SerPl-sCnc 3.8 3.7-5.1 mmol/L LAB 2075-0(LOINC) Chloride SerPl-sCnc 105 98-107 mmol/L LAB 2028-9(LOINC) CO2 SerPl-sCnc 22 22-30 mmo l/L LAB 79190-9(LOINC) Anion Gap SerPl-sCnc 11 8-15 mmol/L LAB 00631-2(LOINC) Creatinine + eGFR Pnl SerPlBld 71 >=60 mL/min/1 .73m??? Result Comment: Estimated Gl omerular Filtration Rate (eGFR) is calculated using the 2020 CKD-EPI creatinine equation. This equation utilizes serum creatinine, sex, and age as parameters. The creatinine assay has traceable calibration to isotope dilution-mass spectrometry. Refer to KDIGO guidelines for clinical interpretation. In patients with unstable renal function, e.g. those with acute kidney injury, the eGFR may not accurately reflect actual GFR. Performed By: #### 34578-2 # ### [facility] CLIA [id number] [address] [place] [address] [place] CBC W AUTO DIFF BLD Collected: 05/26/2024 9:[address] atus: F Source: [facility] Order Comment: Specimen Type : BLOOD SPECIMEN Ordering Facility: [facility] Address: [address] [place] [address] TYPE CODE TESTS RESULT OUT OF RANGE REFERENCE UNITS LAB 6690-2(LOINC) WBC # Bld Auto 5.94 3.70-11.00 k/uL LAB 789-8([facility]) RBC # Bld Auto 4.45 4.20-6.00 m/ uL LAB 718-7([facility]) Hgb Bld-mCnc 14.2 13.0-17.0 g/dL LAB 4544-3([facility]) Hct VFr Bld Auto 40.7 39.0-51.0 % LAB 787-2([facility]) MCV RBC Auto 91.5 80.0-100.0 fL LAB 785-6([facility]) MCH RBC Qn Auto 31.9 26.0-34.0 p g LAB 786-4([facility]) MCHC RBC Auto-mCnc 34.9 30.5-36.0 g/dL LAB 96553-1([facility]) RDW RBC-Rto 13.5 11.5-15.0 % LAB 777-3([facility]) Platelet # Bld Auto 222 150-400 k/uL LAB 04688-6([facility]) PMV Bld Auto 8.9 Low 9.0-12.7 fL LAB 770-8([facility]) Neutrophils/leuk NFr Bld Auto 83.3 % LAB 751-8([facility]) Neutrophils # Bld Auto 4.95 1.45-7.50 k/uL LAB 736-9([facility]) Lymphocytes/leuk NFr Bld Auto 8.6 % LAB 731-0([facility]) Lymphocytes # Bld Auto 0.51 Low 1.00-4.00 k/uL LAB 5905-5([facility]) Monocytes/leuk NFr Bld Auto 5.7 % LAB 742-7([facility]) Monocytes # Bld Auto 0.34 <0.87 k/uL LAB 713-8([facility]) Eosinophil/leuk NFr Bld Auto 1.7 % LAB 711-2([facility]) Eosinophil # Bld Auto 0.10 <0.46 k/uL LAB 706-2([facility]) Basophils/leuk NFr Bld Auto 0.5 % LAB 704-7([facility]) Basophils # Bld Auto 0.03 <0.11 k/uL LAB 00731-2([facility]) Imm Granulocytes/christina k NFr Bld Auto 0.2 % LAB 22088-2(LOINC) Imm Granulocytes # Bld Auto <0.03 <0.10 k/uL LAB 15990-3(LOINC) nRBC/100 WBC Bld-Rto 0.0 /100 WBC LAB 771-6(LOINC) nRBC # Bld Auto <0.01 <0.01 k/u L LAB 47999-5(LOINC) Differential method Bld Auto Performed By: #### 02125-6 # ### [facility] CLIA [id number] [address] [place] [address] TSH SERPL-ACNC Collected: 9:35 AM Status: F Source: [facility] Order Comment: Specimen Type : BLOOD SPECIMEN Ordering Facility: [facility] Address: [address] [place] [address] TYPE CODE TESTS RESULT OUT OF RANGE REFERENCE UNITS LAB 3016-3([facility]) TSH SerPl-aCnc 1.410 0.270-4.200 mIU/L Performed By: #### 3016-3 ## ## [facility] CLIA [id number] [address] [place] [address] CNNURSE Observed: 05/26/2024 12:00 AM Status: COMPLETED Source: [facility] Nurse Visit (SANDRA) ANGEL KEATING ([id number]) 1970 M Date Time Provider Department 05/26/24 CATINA GALVIN During your visit today, we recorded the following information about you: Catina Galvin RN 05/27/2024 4:09 PM Signed IRB#: [id number] Case 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 Enriquez Study start date: 05/24/2024 (start of Pre-Op Methimazole) Date: 05/26/2024 - Pre-Surgical Visit Accompanied by: self Denies numbness, weakness, gait imbalance, seizures, headaches, or visual disturbances. Denies SOB, no edema, no falls. HANDP, neuro exam: seen by surgical team Patient continues to be an appropriate surgical candidate per Dr. Evans: YES Change in KPS: NO; Patient's KPS: 90: Able to carry on normal activity; minor signs or symptoms of disease Steroid dose: none Changes in medication regimen: No Any new thyroid medications added to regimen: No Treatment plan: Pre-operative treatment Phase -Methimazole - Pre-Op period: 05/24/2024 to 05/27/2024 (last dose is DAY of surgery) -Dose level 2 (25 mg daily) Surgical resection -Surgery 05/27/[address] Evans C1D1 (10-28 days after surgery) -Scheduled for 06/16/2024 (20 days post op) -Methimazole - Post-Op period: 05/27/2024- TBD -Dose level 2 (25 mg daily) Education: Immunotherapy wallet card given: NO First dose education on schedules, treatment calendar, medication(s) (Methimazole) and side effects presented to patient. Questions answered. 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 More sensitivity to cold. Constipation. Dry skin. Weight gain. Puffy face. Hoarse voice. Coarse hair and skin. Muscle weakness. Muscle aches, tenderness and stiffness. Menstrual cycles that are heavier than usual or irregular. Thinning hair. Slowed heart rate, also called bradycardia. Depression. Memory problems. Does patient have any signs or symptoms of hypothyroidism: No Hyperthyroidism sometimes looks like other health problems: Losing weight without trying. Fast heartbeat, a condition called tachycardia. Irregular heartbeat, also called arrhythmia. Pounding of the heart, sometimes called heart palpitations. Increased hunger. Nervousness, anxiety and irritability. Tremor, usually a small trembling in the hands and fingers. Sweating. Changes in menstrual cycles. Increased sensitivity to heat. Changes in bowel patterns, especially more-frequent bowel movements. Enlarged thyroid gland, sometimes called a goiter, which may appear as a swelling at the base of the neck. Tiredness. Muscle weakness. Sleep problems. Warm, moist skin. Thinning skin. Fine, brittle hair. Does patient have any signs or symptoms of hyperthyroidism: No Vitals in clinic: 05/26/2024 ONCOLOGY VITALS (ALL DEPTS) Temp 35.9 ?C (96.7 ?F) ! Temp 36 ?C (96.8 ?F) Pulse 84 Pulse 74 Resp 15 SYSTOLIC 136 SYSTOLIC 149 DIASTOLIC 82 DIASTOLIC 83 SpO2 96 % SpO2 98 % Height 177.2 cm (5' 9.75) Height 175.3 cm (5' 9) Height 70 in Height 69 in Height 177.2 cm Height 175.3 cm WEIGHT (lb) 223 lb 1.7 oz WEIGHT (lb) 223 lb WEIGHT (kg) 101.2 kg WEIGHT (kg) 101.152 kg BSA (Mosteller Formula) 2.23 m2 BSA (Mosteller Formula) 2.22 m2 BMI 32.24 kg/m2 BMI 32.93 kg/m2 Legend: ! Abnormal Weight obtained: YES Labs: TFTs (TSH, T3, T4, free T3 and free T4) reviewed and appropriate to start Methimazole: YES Baseline CrCl (05/12/2024): 99 ml/min (based on sCr of 1.20 mg/dL) Today's CrCl (05/26/2024): 99 ml/min (based on sCr of 1.21 mg/dL) CrCl is >= 50 ml/min to start: YES Out out of range values: NCS Negative Serum test, if applicable: N/A Resection: Patient's neurosurgeon: Dr. Evans Surgery date: 05/27/2024 Dr. Evans aware patient will need to take Methimazole morning of surgery despite NPO status: CORRECT Trial Medications: Orders signed for Methimazole to begin >= 5 days prior to the above surgery date: NO; per PI Dr. Barba, patient started Methimazole on 05/24/2024 Patient is dose level: 2 Dose level - Methimazole - Pre-surgery -1 10 mg daily, >= 5 days prior 1 15 mg daily, >= 5 days prior 2 25 mg daily, >= 5 days prior Methimazole dispensed today by [facility] pharmacy and patient has brought medication to clinic visit: YES Patient received 2 bottles of Methimazole (one 10 mg strength, one 5 mg strength) one bottle of 60 tablets of 10 mg strength; one bottle of 30 tablets of 5 mg strength Patient is aware to keep pill bottles and return to research staff as drug will be destroyed on site following return of unused medication: CORRECT Methimazole may be taken with or without food but it must be swallowed whole without crushing or chewing: Take two 10 mg tablets and one 5 mg tablet for a total dose of 25 mg, daily for at least 5 days prior to surgery. Patient is due to start Pre-Op Methimazole on: 05/24/2024 Correlative study lab (up to 3 days before starting drug) has been: Completed, Patient will take last dose of Methimazole the morning of surgery: YES Was any Methimazole dose changed, missed, reduced or held: No Ongoing AE Grade Scale Assessment - CTCAE v.5: Neuro, other (thought process changes) - Grade 1 - Baseline; Probable to study disease. Symptom is: Controlled with no intervention; Approximately started: 03/16/2023 to present; Baseline at screening 04/09/2023 Seizures (at risk for) - Grade 1 - Baseline; Unrelated to historical disorder/disease; Probable to study disease. 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 Symptom is: Controlled with lifestyle changes; Approximately started: 05/12/2024 to present; Baseline at screening 05/12/2024; upgraded to grade 2 on 05/26/2024; Current status: Ongoing - worsening NEW AEs: none RESOLVED AEs: none Patient does continue to meet eligibility to proceed with therapy per Dr. Enriquez: YES Discharged in apparent satisfactory condition. All questions answered. Patient agrees to call with questions, concerns, change in symptoms. Patient agreed to call with any symptoms or side effects not mentioned. Patient agreed to plan. Patient has the contact information for treating physician, research staff and the 24-hour If[facility]fiqw[facility]Ua-Dq[facility] number ([phone] or ) for the Heme/Onc Fellow. prescription order Catina Galvin RN 05/26/2024 10:09 AM Chart routed to Dr. Enriquez (Primary): YES Allergies As of Date: 05/26/2024 (No Known Allergies) Date Reviewed: 05/26/2024 Reviewed by: Brenna Davis RN - Fully Assessed Primary Visit Diagnosis:GBM (glioblastoma multiforme) (HCC) [C71.9] Prescriptions as of 05/27/2024 - iv contrast (will be provided with radiology test) MRI Brain Inject, intravenously, once for 1 dose.No IV access, insert saline lock prior to beginning of sedation, infusion, injection of imaging exam.Discontinue saline lock post exam. If Pt. has a central line or IVAD, may access for administration according to line specific nursing protocol.Once exam is complete flush line and de-access according to line specific nursing protocol in the MR contrast administration guidelines link - methIMAzole (TAPAZOLE) 10 mg tablet Take TWO 10 mg tablets and ONE 5 mg tablet for a total dose of 25 mg, daily. - methIMAzole (TAPAZOLE) 5 mg tablet Take TWO 10 mg tablets and ONE 5 mg tablet for a total dose of 25 mg, daily. - ondansetron (ZOFRAN) 8 mg tablet Take one tablet by mouth one hour prior to chemo. May repeat dose every 8-12 hours if needed to prevent nausea - lacosamide (VIMPAT) 150 mg tab Take 1 tablet by mouth two times a day. - meclizine (ANTIVERT) 25 mg tab Take 1 tablet by mouth three times a day. - valACYclovir (VALTREX) 1 gram tablet Take 1,000 mg by mouth three times a day. - midazolam (NAYZILAM) 5 mg/spray (0.1 mL) nasal spray Use 1 [place] in the nose as needed for up to 10 days. May repeat dose in alternate nostril after 10 minutes based on response and tolerability. - sennosides (SENNA ORAL) Take by mouth. - DIETARY SUPPLEMENT,MISC COMB14 ORAL Take by mouth. Biomega 1000mg containing vitamin E and pure anchovy - medical supply, miscellaneous (MISCELLANEOUS MEDICAL SUPPLY [facility]) Neurotrophin - acetaminophen (TYLENOL) 325 mg tablet 2 tablets by ORAL/FEEDING TUBE route every 4 hours as needed for pain. - pantoprazole DR (PROTONIX) 20 mg tablet Take 1 tablet by mouth DAILY (6 AM). Facility-Administered Medications as of 05/27/2024 - lacosamide 150 mg tab(s) (VIMPAT) - valACYclovir 1,000 mg tab(s) (VALTREX) - meclizine 25 mg tab(s) (ANTIVERT) - ondansetron (PF) 4 mg injection (ZOFRAN) - prochlorperazine 10 mg injection (COMPAZINE) - trimethobenzamide 200 mg injection (TIGAN) - senna-docusate 8.6-50 mg 1 tablet (SENNA-S) - heparin 5,000 Units injection - NaCl 0.9% iv flush bag - iv contrast (radiology procedure) - ceFAZolin iv piggyback 2 g in D5W (iso-osmotic) 100 mL (ANCEF) - acetaminophen 1,000 mg tab(s) (TYLENOL) - methocarbamol 750 mg tab(s) (ROBAXIN) - oxyCODONE IR 5-10 mg tab(s) (ROXICODONE) - labetalol 5-20 mg injection syringe (NORMODYNE) - pantoprazole DR 40 mg tab(s) (PROTONIX) - dextrose 15 gram/32 mL 15 g (TRUEPLUS) - glucagon 1 mg injection - dextrose 10% iv bolus - insulin lispro injection (rapid acting) (ADMElog) - magnesium sulfate iv piggyback in sterile water 2 g 50 mL - iv contrast (radiology procedure) - dexAMETHasone sodium phosphate (PF) 8 mg injection (DECADRON) - dexAMETHasone 8 mg tab(s) (DECADRON) Problem List As Of Date 05/26/2024 Noted Resolved Chest pain [R07.9] 04/25/2010 05/26/2024 Brain mass [G93.89] 03/17/2023 11/17/2023 Obesity, Class I, BMI 30-34.9 [E66.811] 03/17/2023 Brain compression (HCC) [G93.5] 03/20/2023 S/P brain surgery [Z98.890] 03/20/2023 11/17/2023 At risk for seizures [Z91.89] 03/20/2023 Cerebral edema (HCC) [G93.6] 03/20/2023 GBM (glioblastoma multiforme) (HCC) [C71.9] 04/07/2023 Syncope, unspecified syncope type [R55] 11/01/2023 11/03/2023 Examination of participant in clinical trial [Z*11/05/2023 11/17/2023 Forehead pain [R51.9] 11/05/2023 PONV (postoperative nausea and vomiting) [R11.2*05/26/2024 Encounter Status:Closed by CATINA GALVIN on 05/27/24 PT PNL PPP Collected: 10:55 AM Status: F Source: [facility] Order Comment: Specimen Type : BLOOD SPECIMEN Ordering Facility: [facility] Address: [address] [place] [address] TYPE CODE TESTS RESULT OUT OF RANGE REFERENCE UNITS LAB 5902-2(LOINC) Prothrombin time 10.7 9.7-13.0 sec LAB 6301-6(LOINC) INR PPP 1.0 0.9-1.3 Result Comment: Vitamin K An tagonist (VKA) Therapeutic Range: INR 2 to 3 (Target INR of 2.5) Note: For patients treated with VKA drugs, such as warfarin, the [employer] 2012 Guideline recommends a therapeutic INR range of 2 to 3 (target INR of 2.5). This recommendation includes high-risk patients with antiphospholipid syndrome with previous arterial or venous thromboembolism, current-generation mechanical or bioprosthetic aortic heart valve replacement. Note: Patients with mechanical aortic valve replacement and additional risk factors for thromboembolic events (atrial fibrillation, previous thromboembolism, LV dysfunction, hypercoagulable conditions) or an older generation mechanical AVR (i.e., ball in-Cage) or any mechanical MVR should have a INR therapeutic range of 2.5 to 3.5 (target INR of 3). Terry GH, et al. Chest 2012, 141:7S-47S Tabby RA, et al. [facility] 2017, 70: 252-289 Performed By: #### 62710-5 # ### [facility] CLIA [id number] [address] [place] [address] [place] TSH SERPL-ACNC Collected: 4 10:55 AM Status: F Source: [facility] Order Comment: Specimen Type : BLOOD SPECIMEN Ordering Facility: [facility] Address: [address] [place] [address] TYPE CODE TESTS RESULT OUT OF RANGE REFERENCE UNITS LAB 3016-3(LOINC) TSH SerPl-aCnc 1.100 0.270-4.200 mIU/L Performed By: #### 3016-3 ## ## [facility] CLIA [id number] [address] [place] [address] [place] T3FREE SERPL-MCNC Collected: 4 10:55 AM Status: F Source: [facility] Order Comment: Specimen Type : BLOOD SPECIMEN Ordering Facility: [facility] Address: [address] [place] [address] TYPE CODE TESTS RESULT OUT OF RANGE REFERENCE UNITS LAB 3051-0(LOINC) T3Free SerPl-mCnc 2.6 2.3-4.1 pg/mL Performed By: #### 3026-2, 3 051-0, 3024-7, 3053-6 #### [facility] CLIA [id number] [address] [place] [address] [place] T4 FREE SERPL-MCNC Collected: 4 10:55 AM Status: F Source: [facility] Comment: Specimen Type : BLOOD SPECIMEN Ordering Facility: [facility] Address: [address] [place] [address] TYPE CODE TESTS RESULT OUT OF RANGE REFERENCE UNITS LAB 3024-7(LOINC) T4 Free SerPl-mCnc 1.3 0.9-1.7 ng/dL Performed By: #### 3026-2, 3 051-0, 3024-7, 3053-6 #### [facility] CLIA [id number] [address] [place] [address] [place] T3 SERPL-MCNC Collected: 10:55 AM Status: F Source: [facility] Comment: Specimen Type : BLOOD SPECIMEN Ordering Facility: [facility] Address: [address] [place] [address] TYPE CODE TESTS RESULT OUT OF RANGE REFERENCE UNITS LAB 3053-6(LOINC) T3 SerPl-mCnc 105 79-165 ng/d L Performed By: #### 3026-2, 3 051-0, 3024-7, 3053-6 #### [facility] CLIA [id number] [address] [place] [address] [place] T4 SERPL-MCNC Collected: 10:55 AM Status: F Source: [facility] Order Comment: Specimen Type : BLOOD SPECIMEN Ordering Facility: [facility] Address: [address] [place] [address] TYPE CODE TESTS RESULT OUT OF RANGE REFERENCE UNITS LAB 3026-2(LOINC) T4 SerPl-mCnc 6.9 5.5-10.2 ug/ dL Performed By: #### 3026-2, 3 051-0, 3024-7, 3053-6 #### [facility] CLIA [id number] [address] [place] [address] [place] CBC W AUTO DIFF BLD Collected: 05/12/2024 10:55 AM S tatus: F Source: [facility] Order Comment: Specimen Type : BLOOD SPECIMEN Ordering Facility: [facility] Address: [facility] [place] [address] TYPE CODE TESTS RESULT OUT OF RANGE REFERENCE UNITS LAB 6690-2([facility]) WBC # Bld Auto 4.87 3.70-11.00 k/uL LAB 789-8([facility]) RBC # Bld Auto 4.59 4.20-6.00 m/ uL LAB 718-7([facility]) Hgb Bld-mCnc 14.9 13.0-17.0 g/dL LAB 4544-3([facility]) Hct VFr Bld Auto 41.7 39.0-51.0 % LAB 787-2([facility]) MCV RBC Auto 90.8 80.0-100.0 fL LAB 785-6([facility]) MCH RBC Qn Auto 32.5 26.0-34.0 p g LAB 786-4([facility]) MCHC RBC Auto-mCnc 35.7 30.5-36.0 g/dL LAB 53094-1([facility]) RDW RBC-Rto 13.8 11.5-15.0 % LAB 777-3([facility]) Platelet # Bld Auto 226 150-400 k/uL LAB 41277-6([facility]) PMV Bld Auto 8.9 Low 9.0-12.7 fL LAB 770-8([facility]) Neutrophils/leuk NFr Bld Auto 71.5 % LAB 751-8([facility]) Neutrophils # Bld Auto 3.48 1.45-7.50 k/uL LAB 736-9([facility]) Lymphocytes/leuk NFr Bld Auto 16.4 % LAB 731-0([facility]) Lymphocytes # Bld Auto 0.80 Low 1.00-4.00 k/uL LAB 5905-5([facility]) Monocytes/leuk NFr Bld Auto 8.6 % LAB 742-7([facility]) Monocytes # Bld Auto 0.42 <0.87 k/uL LAB 713-8([facility]) Eosinophil/leuk NFr Bld Auto 2.3 % LAB 711-2([facility]) Eosinophil # Bld Auto 0.11 <0.46 k/uL LAB 706-2([facility]) Basophils/leuk NFr Bld Auto 0.6 % LAB 704-7([facility]) Basophils # Bld Auto 0.03 <0.11 k/uL LAB 14385-5([facility]) Imm Granulocytes/christina k NFr Bld Auto 0.6 % LAB 10792-5([facility]) Imm Granulocytes # Bld Auto 0.03 <0.10 k/uL LAB 07416-9([facility]) nRBC/100 WBC Bld-Rto 0.0 /100 WBC LAB 771-6([facility]) nRBC # Bld Auto <0.01 <0.01 k/u L LAB 15928-3([facility]) Differential method Bld Auto Performed By: #### 21741-6 # ### [facility] CLIA [id number] [address] [place] [address] OF [facility] COMP METAB 2000 PNL SERPL Collected: 10:55 AM Status: F Source: [facility] Order Comment: Specimen Type : BLOOD SPECIMEN Ordering Facility: [facility] Address: [address] [place] [address] TYPE CODE TESTS RESULT OUT OF RANGE REFERENCE UNITS LAB 2885-2([facility]) Prot SerPl-mCnc 7.3 6.3-8.0 g/dL LAB 1751-7([facility]) Albumin SerPl-mCnc 4.2 3.9-4.9 g/dL LAB 61296-0([facility]) Calcium SerPl-mCnc 9.1 8.5-10.2 mg/dL LAB 1975-2([facility]) Bilirub SerPl-mCnc 0.6 0.2-1.3 mg/dL LAB 6768-6([facility]) ALP SerPl-cCnc 94 38-113 U/L LAB 1920-8(LOINC) AST SerPl-cCnc 15 14-40 U/L LAB 1742-6(LOINC) ALT SerPl-cCnc 10 10-54 U/L LAB 2345-7([facility]) Glucose SerPl-mCnc 94 74-99 mg/dL Result Comment: The [place] [employer] (ADA) provides guidance for cutoff values for fasting glucose and random glucose. The ADA defines fasting as no caloric intake for at least 8 hours. Fasting plasma glucose results between 100 to 125 mg/dL indicate increased risk for diabetes (prediabetes). Fasting plasma glucose results greater than or equal to 126 mg/dL meet the criteria for diagnosis of diabetes. In the absence of unequivocal hyperglycemia, results should be confirmed by repeat testing. In a patient with classic symptoms of hyperglycemia or hyperglycemic crisis, random plasma glucose results greater than or equal to 200 mg/dL meet the criteria for diagnosis of diabetes. Reference: Standards of Medical Care in Diabetes 2016, [place] [employer]. Diabetes Care. 2016.39(Suppl 1). LAB 3094-0(LOINC) BUN SerPl-mCnc 18 9-24 mg/ dL LAB 2160-0(LOINC) Creat SerPl-mCnc 1.20 0.73-1.22 mg/dL LAB 2951-2(LOINC) Sodium SerPl-sCnc 138 136-144 mmol/L LAB 2823-3(LOINC) Potassium SerPl-sCnc 4.3 3.7-5.1 mmol/L LAB 2075-0(LOINC) Chloride SerPl-sCnc 104 98-107 mmol/L LAB 2028-9(LOINC) CO2 SerPl-sCnc 23 22-30 mmo l/L LAB 44470-8(LOINC) Anion Gap SerPl-sCnc 11 8-15 mmol/L LAB 60478-6(LOINC) Creatinine + eGFR Pnl SerPlBld 71 >=60 mL/min/1 .73m??? Result Comment: Estimated Gl omerular Filtration Rate (eGFR) is calculated using the 2020 CKD-EPI creatinine equation. This equation utilizes serum creatinine, sex, and age as parameters. The creatinine assay has traceable calibration to isotope dilution-mass spectrometry. Refer to KDIGO guidelines for clinical interpretation. In patients with unstable renal function, e.g. those with acute kidney injury, the eGFR may not accurately reflect actual GFR. Performed By: #### 77373-7 # ### [facility] [place] [id number] [address] [place] [address] [place] PROGRESS Observed: 05/12/2024 10:27 AM Status: COMPLETED [id number] Author: CRISTAL NAVARRETE, Research Coordinator Service: ? Author Type: Research Type: Progress Notes Filed: 05/12/2024 10:29 Note Text: Summary: CASE 3322 pre-study CRC 1 Documentation IRB#: [id number] Case 3322 - Targeting Transsulfuration via Suppression of Thyroid Hormone Signaling in Progressive Glioblastoma; Modified Phase 1/2 and Pharmacodynamic Trial of Methimazole in Patients with Progressive WHO Grade 4 Glioblastoma Informed Consent signed on 05/12/2024, prior to any study related procedures being performed that are not SOC. Pt Study #: TBD Treatment Arm: N/A Patient presents for: Pre-study The following research tasks have been completed per protocol: Quality of life questionnaire: Not Required VS completed: Yes (Rooming nurse) EKGs (Single) : Yes Given to Nadeen Beckett RN for review. Cristal Navarrete, Clinical Research Coordinator II ECG01 Observed: 05/12/2024 10:09 AM Status: F Source: [facility] Ventricular Rate : 56 BPM Atrial Rate : 56 BPM P-R Interval : 154 ms QRS Duration : 92 ms Q-T Interval : 402 ms QTC Calculation(Bazett) : 387 ms Calculated P [place] : 35 degrees Calculated R [place] : 2 degrees Calculated T [place] : 15 degrees SINUS BRADYCARDIA OTHERWISE NORMAL ECG Confirmed by DARWIN MARSHALL MD ([id number]) on 05/31/2024 9:36:12 PM NAME : ANGEL KEATING PID : [id number] : 1970 Gender : Male Race : ORD : Procedure Date : May 12 2024 10:09:47 Edit Date : May 31 2024 21:36:14 Diagnosis: SINUS BRADYCARDIA OTHERWISE NORMAL ECG Confirmed by DARWIN MARSHALL MD ([id number]) on 05/31/2024 9:36:12 PM Test Reason : Location : 117 : CA2RE Overread By : DARWIN MARSHALL MD Edited By : DARWIN MARSHALL MD Referred By : , Acquired by : cristal yeh, PROGRESS Observed: 05/12/2024 10:06 AM Status: COMPLETED Source: [facility] HNO ID: [id number] Author: PATRICIA ENRIQUEZ MD Service: ? Author Type: Physician Type: Progress Notes Filed: 05/12/2024 18:14 Note Text: [facility] Follow up Clinic visit B C Team: -Jose Evans MD, Neurosurgery -SAV Rodriguez, Radiation Oncology -Patricia Enriquez MD, Neuro-Oncology DIAGNOSIS: MGMT unmethylated Glioblastoma. 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 He initially presented with anxiety-attack like episodes going back to January 2023 as well as a fall, without loss of consciousness but +trauma to head around 02/27/2023. On 03/16/2023, he presented to [facility] ED with word finding difficulty, report of one-time fever of 101 in February, anxiety, increased thirst and urination and was found to have a L temporal mass with midline subfalcine shift concerning for high grade glioma. He was afebrile with normal glucose level and electrolytes. He underwent gross total resection by Dr. Evans on 03/19/2023, revealing an MGMT unmethylated glioblastoma, WHO Grade 4. He was discharged on keppra 750mg BID and dexamethasone taper. He established care with Dr. Enriquez and given paroxysmal episodes of anxiety, he was concerned about temporal lobe epilepsy and advised lifelong AED to reduce seizure risk. The patient was exhibiting some fatigue and dullness, so a cross taper from keppra to vimpat, with goal of vimpat 150mg BID. The patient expressed interest in clinical trials and enrolled onto [facility]. He was randomized to the [id number] arm (cyclic peptide modulating tumor microenvironment). TREATMENT HISTORY Gross total resection [03/19/2023] [facility] Dr. Evans MGMT unmethylated Glioblastoma. L temporal GCAR SHAMIR, randomized to [id number] IV twice weekly arm + Standard concurrent chemotherapy and radiation (04/20- 05/29/2023) [facility] Dr. Joyce and Dr. Enriquez Adjuvant temozolomide PO D1-5 q 28 days C1 07/01/23, will start 07/03 150mg/m2 C2 07/27/23 C3 08/31/23 C4 09/21/23 C5 10/26/23 C6 11/23/23 C7 12/28/23 STOP ADJ TMZ as the clinical; trial calls for up to 6 cycles. For some reason the patient had an extra cycle of Adj TMZ. Adjuvant [id number] during Maintenance: Cycle 7 Week 1 - infusions on 12/14/2023 (D1) and 12/17/2023 (D4) Cycle 7 Week 2 - infusions on 12/21/2023 (D8) and 12/24/2023 (D11) Cycle 7 Week 3 - infusions on 12/28/2023 (D15) and 12/31/2023 (D18) Cycle 7 Week 4 - infusions on 01/05/2024 (D22) and 01/08/2024 (D25) Cycle 8 Week 5 - infusions on 01/11/2024 and 01/14/2024 02/08/2024: MRI shows progression 02/08/24 BTB Referrals to se Dr. Evans for possible surgery. If surgery offered, he can be enrolled in CASE 3322 clinical trial with methimazole + chemo. 02/18/24: Dr Evans recommended NO surgery. 02/26/24 Lomustine 90mg/m2 C#1 02/25-04/08/24 04/12/24 Tumor progression, increased CBV 04/14/2024 BTB Referrals to se Dr. Evans for possible surgery. The patient is also eligible, for CASE 3322 clinical trial with methimazole + chemo. 04/28/2024 Jose Evans MD since the patient, and recommended surgery. 04/28/2024 clinical trials team, I seen the patient, the patient is eligible, for for CASE 3322 clinical trial with methimazole + chemo. Patient signed consent. 05/11/24 In person visit The patient is unaccompanied He still with some language dysfunction but not worsening. Has no headaches or seizures. No other neurological issues. This visit, is for pre initiation of clinical trial. Last Chemo: see above Current Steroids dose: N/A Current AED Dose: lacosamide (VIMPAT) 150 mg tab Take 1 tablet by mouth two times a day. 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 Evans; path = GBM ORTHOPEDICS SURGERY HX 1996 knee surgery SHX CRANIOTOMY Left 03/19/2023 Family History: FAMILY HISTORY Problem Relation Age of Onset Diabetes Father Coronary Artery Disease Father Stroke Father Breast Cancer Mother None Sister Social History Tobacco Use Smoking status: Former Current packs/day: 1.00 Average packs/day: 1 pack/day for 4.0 years (4.0 ttl pk-yrs) Types: Cigarettes Smokeless tobacco: Never Vaping Use Vaping status: Never Used Substance Use Topics Alcohol use: Not Currently Comment: three beers a week Drug use: No Allergies: Patient has no known allergies. Current Outpatient Medications Medication Sig lacosamide (VIMPAT) 150 mg tab Take 1 tablet by mouth two times a day. iv contrast (will be provided with radiology test) MRI Brain Inject, intravenously, once for 1 dose.No IV access, insert saline lock prior to beginning of sedation, infusion, injection of imaging exam.Discontinue saline lock post exam. If Pt. has a central line or IVAD, may access for administration according to line specific nursing protocol.Once exam is complete flush line and de-access according to line specific nursing protocol in the MR contrast administration guidelines link iv contrast (will be provided with radiology test) MRI Brain Inject, intravenously, once for 1 dose.No IV access, insert saline lock prior to beginning of sedation, infusion, injection of imaging exam.Discontinue saline lock post exam. If Pt. has a central line or IVAD, may access for administration according to line specific nursing protocol.Once exam is complete flush line and de-access according to line specific nursing protocol in the MR contrast administration guidelines link meclizine (ANTIVERT) 25 mg tab Take 1 tablet by mouth three times a day. valACYclovir (VALTREX) 1 gram tablet Take 1,000 mg by mouth three times a day. ondansetron (ZOFRAN) 8 mg tablet Take one hour prior to temozolomide prescription then every 8 hours as needed for nausea. temozolomide (TEMODAR) 180 mg capsule Fast for one hour after taking Zofran and then take ONE 180 mg capsule, plus ONE 140 mg and TWO 5 mg capsules to total 330 mg. Then, fast for one hour after taking. Take on days 1-5 of your 28 day cycle. Temozolomide 140 mg capsule Fast for one hour after taking Zofran and then take ONE 180 mg capsule, plus ONE 140 mg and TWO 5 mg capsules to total 330 mg. Then, fast for one hour after taking. Take on days 1-5 of your 28 day cycle. temozolomide (TEMODAR) 5 mg capsule Fast for one hour after taking Zofran and then take ONE 180 mg capsule, plus ONE 140 mg and TWO 5 mg capsules to total 330 mg. Then, fast for one hour after taking. Take on days 1-5 of your 28 day cycle. ondansetron (ZOFRAN) 8 mg tablet Take 1 tablet (8 mg) by mouth one hour before taking temozolomide dosing. Take on an empty stomach (Patient taking differently: Take 1 tablet (8 mg) by mouth one hour before taking temozolomide dosing. Take on an empty stomach) sennosides (SENNA ORAL) Take by mouth. DIETARY SUPPLEMENT,MISC COMB14 ORAL Take by mouth. Biomega 1000mg containing vitamin E and pure anchovy medical supply, miscellaneous (MISCELLANEOUS MEDICAL SUPPLY MIS) Neurotrophin acetaminophen (TYLENOL) 325 mg tablet 2 tablets by ORAL/FEEDING TUBE route every 4 hours as needed for pain. pantoprazole DR (PROTONIX) 20 mg tablet Take 1 tablet by mouth DAILY (6 AM). midazolam (NAYZILAM) 5 mg/spray (0.1 mL) nasal spray Use 1 [place] in the nose as needed for up to 10 days. May repeat dose in alternate nostril after 10 minutes based on response and tolerability. No current facility-administered medications for this visit. Review of systems: Constitutional: No recent fever or weight loss. Eyes: No history of glaucoma or cataracts. ENMT: No recent ear infection, nasal congestion, mouth sores or sore throat. CV: No history of chest pain, palpitations or leg swelling. Respiratory: No history of SOB, asthma or recent cough. Gastrointestinal: No history of nausea, vomiting, dysphagia or abdominal pain. Genitourinary: No history of hematuria or dysuria. Musculoskeletal: No complaint of arthritis, unstable gait or arm/leg weakness. Psychiatric: No history of hallucinations or depression or anxiety. ROS Neurological: No complaint of headache. No complaint of tinnitus. No complaint of decreased hearing. No complaint of diplopia. No complaints of decreased visual acuity. No complaint of arm/leg numbness. No problem with limb coordination. No complaint of syncope, seizures or disorientation. Objective Physical Exam: BP 129/84 Pulse (!) 59 Temp 36.9 ?C (98.5 ?F) (Oral) Resp 18 Ht 177.4 cm (5' 9.84) Wt 100.5 kg (221 lb 9 oz) SpO2 100% BMI 31.93 kg/m? GENERAL EXAM: General appearance: Well appearing, alert, in no acute distress Skin: Skin color, texture, turgor normal Oropharynx: No thrush noted. Lungs: Lungs clear to auscultation. No wheezing, rhonchi, rales Heart: RRR without murmur, gallop, or rubs. No ectopy Abdomen: Normal abdominal exam, Abdomen soft, non-tender. Bowel sounds normal. Extremities: No deformities, skin discoloration, clubbing or cyanosis. Good capillary refill, no edema to BLE. Harmony's sign negative. No pain to palpation. NEUROLOGICAL EXAM: Higher integrative functions: Oriented to person, place AND time. Attention Span and Concentration: Good. Language: Accurate naming of objects. Good comprehension. Fund of Knowledge: Good. 2nd CN: Full visual land. 3rd,4th,6th CN: Pupils equal, round, react to light, full extraocular movements. 5th CN: No decrease in facial sensation 7th CN: Facial muscles symmetric and strong. 8th CN: Hears finger rub well bilaterally. 9th CN: Gag reflex not tested 10th CN: Spontaneous palate movement, full and symmetric. 11th CN: Full strength in shoulder shrug. 12th CN: Tongue protrusion full and midline. Sensation: No decrease in sensation in upper or lower limbs to touch. Musculoskeletal: Gait steady. Tandem walk normal. Romberg negative. Motor: 5/5 RUE/RLE; 5/5 LUE/LLENormal muscle tone without atrophy in all limbs. Coordination: Rapid alternating movements LUE intact; RUE intact Reflexes: 1-2+ ALL limbs. Plantar response down going. Karnofsky performance status: 90 - Able to carry on normal activity, minor signs or symptoms of disease. ECOG performance status: 1 - Restricted in physically strenuous activity but ambulatory and able to carry out work of a light or sedentary nature, e.g., light house work or office work. 05/18/2023 PHQ 2 and 9 Total Scores PHQ-2 Score 1 PHQ-9 Score 8 Labs: Latest Ref Rng AND Units 02/08/2024 03/18/2024 04/08/2024 CBC WBC 3.70 - 11.00 k/uL 4.42 5.06 3.11 RBC 4.20 - 6.00 m/uL 4.39 4.22 4.26 Hemoglobin 13.0 - 17.0 g/dL 14.2 13.7 13.9 Hematocrit 39.0 - 51.0 % 39.8 38.2 39.9 MCV 80.0 - 100.0 fL 90.7 90.5 93.7 MCH 26.0 - 34.0 pg 32.3 32.5 32.6 MCHC 30.5 - 36.0 g/dL 35.7 35.9 34.8 RDW-CV 11.5 - 15.0 % 12.9 13.2 14.1 Platelet Count 150 - 400 k/uL 196 137 240 MPV 9.0 - 12.7 fL 8.9 8.2 8.8 Baso% % 0.7 0.6 0.6 Abs Neut (ANC) 1.45 - 7.50 k/uL 3.30 3.79 1.96 Abs Lymph 1.00 - 4.00 k/uL 0.62 0.63 0.67 Abs Branch <0.87 k/uL 0.35 0.55 0.41 Abs Eosin <0.46 k/uL 0.11 0.05 0.04 Abs Baso <0.11 k/uL 0.03 0.03 <0.03 NRBC /100 WBC 0.0 0.0 0.0 Latest Ref Rng AND Units 02/08/2024 03/18/2024 04/08/2024 CMP Sodium 136 - 144 mmol/L 139 140 136 Potassium 3.7 - 5.1 mmol/L 4.3 3.9 4.3 Chloride 98 - 107 mmol/L 106 106 103 CO2 22 - 30 mmol/L 23 23 26 Glucose 74 - 99 mg/dL 99 96 96 BUN 9 - 24 mg/dL 18 13 16 Creatinine 0.73 - 1.22 mg/dL 1.13 1.05 1.23 EGFR >=60 mL/min/1.73m? 77 84 69 Protein, Total 6.3 - 8.0 g/dL 6.8 6.5 7.2 Albumin 3.9 - 4.9 g/dL 3.8 4.1 4.1 Calcium 8.5 - 10.2 mg/dL 9.0 8.9 9.0 Bilirubin, Total 0.2 - 1.3 mg/dL 0.4 0.5 0.5 AST 14 - 40 U/L 13 13 14 ALT 10 - 54 U/L 10 9 11 Alkaline Phosphatase 38 - 113 U/L 96 79 88 Final Pathology: SURGICAL PATHOLOGY: [id number] Order: [id number] Collected 03/19/2023 10:24 AM Status: Edited Result - FINAL Visible to patient: Yes (not seen) Dx: Brain tumor (HCC) 0 Result Notes Component FINAL DIAGNOSIS A, B. Brain, left temporal mass, biopsy and resection: - Morphologically consistent with high grade glioma. See comment. Diagnosis Comment CARLOS stained sections reveal a hypercellular infiltrating glioma with moderate to marked nuclear pleomorphism and increased mitoses (upto 4 per 10 high per field). Pseudopalisading necrosis and microvascular proliferation are identified. Immunohistochemical stains are performed at [facility] to better classify this lesion (block B1) and show the following in neoplastic cells: IDH1 R132H: neagtive (wildtype); ATRX: retained (wildtype); BRAF V600E: negative (wildtype); p53 strong nuclear positivity in up to 40%; Ki67 proliferative index up to 25%. Addendum This addendum is rendered to report the results of the following molecular studies: Targeted Oncology Panel: The oncogenic TERT promoter alteration, c.-124C>T (also known as C228T) was detected in this specimen; MGMT promoter methylation: not hypermethylated. 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 Addendum electronically signed by Krista Snow MD on 04/03/2023 at 9:13 AM Imaging: MRI Report MRI BRAIN WO/W IVCON Exam End: 04/12/2024 3:52 PM (Final result) Narrative: * * *Final Report* * * DATE OF EXAM: Apr 12 2024 3:52PM CAM 0295 - MRI BRAIN WO/W IVCON / PROCEDURE REASON: GBM (glioblastoma multiforme) (HCC) * * * * Physician Interpretation * * * * EXAMINATION: MRI BRAIN WO/W IVCON CLINICAL HISTORY: GBM. TECHNIQUE: Routine brain MRI protocol without and with contrast including diffusion images. MQ: [id number] Contrast: 20 mL Dotarem IV COMPARISON: MRI brain performed 02/08/2024. RESULT: Acute Change: There is no evidence of restricted diffusion to suggest an acute infarct. Hemorrhage: Faint magnetic susceptibility representing remote blood degradation byproducts or constipation within the RIGHT caudate head. Mass Lesion/ Mass Effect: LEFT pterional craniotomy. Extensive confluent T2 and FLAIR hyperintensity present within the anterior LEFT temporal lobe with extension superiorly to involve the medial LEFT temporal lobe and inferior aspect of the LEFT insula which appears mildly progressed in extent when compared with prior examination. Following contrast administration there is extensive ill-defined enhancement which is markedly progressed, now more confluent involving majority of the anterior LEFT temporal lobe, measuring approximately 3.2 transverse by 3.0 AP centimeters. No additional or remote areas of abnormal enhancement are present. Increased cerebral blood volume corresponding to areas enhancement. Chronic Change: The white matter is within normal limits of signal intensity for age. Parenchyma: There is mild generalized parenchymal volume loss. The brain parenchyma is otherwise within normal limits of signal intensity and morphology. Ventricles: Ventriculomegaly corresponds to the degree of parenchymal volume loss. Skull Base: Hypothalamic and pituitary region are grossly normal. Craniocervical junction is normal. No significant marrow replacement process. Vasculature: Major intracranial arterial structures, and dural venous sinuses show typical flow void, suggesting patency by spin echo criteria. Other: Minimal mucosal thickening present within the imaged paranasal sinuses. Impression: IMPRESSION: Interval progression of enhancement and T2/flair changes within the anterior LEFT temporal lobe as detailed above. 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 Now with progressive disease per MRI from 04/12/2024 --The patient is eligible for CASE 3322 clinical trial with methimazole + chemo. Patient signed consent. I discussed with the patient, the lesion in the sample enrollment on this clinical trial, the potential benefits and side effects, and the patient, agrees to be enrolled in this trial, and go on the treatments as proposed, and has no further question concerns. PLAN: 1- GBM-MGMT promoter not hyper methylated. MRI of the brain from Apr 12, 2024, shows increased enhancement, with increased CBV. -The patient has been seen by Dr. Man his neurosurgeon and he has recommended surgery, which will take place, and May 27, 2024. -The patient is eligible for CASE 3322 clinical trial with methimazole + chemo. Patient signed consent. -The patient will start methimazole, 5 days prior to chemotherapy. 4-xhpuysxudlco-uqthojd nausea: -Use Zofran, and as needed 3-Imaging surveillance: -Brain w and w/o contrast and perfusion -interval, per the clinical trial 2A-Clinic visits: -per clinical trial 3-Bone marrow suppression from chemotherapy: periodic CBC, every 4 weeks Also, CMP every 4 weeks. Other blood test, per clinical trial 4- Seizures: Since I saw him last, he has not had any events to suggest seizures (02/19/2024). -On lacosamide (Vimpat): Started on 04/05/23. Dose is 150 mg twice a day. -Recommend to do lacosamide blood levels, to be done in the next 1 to 2 weeks. It should be a trough level, that is, in the morning, prior to the a.m. dose. 5-Seizure precautions: The patient is not to drive any motorized vehicle, and not to engage in activities that could place her or others in danger if she were to have a seizure. I also discussed the use of rescue medication for breakthrough seizures, using midazolam nasal spray (NS) to use it as needed (PRN) and discussed when to use it. I discussed the potential benefits and side effects, including tiredness, fatigue, and or sleepiness and if so, the patient is not to engage in activities that require to be fully alert. I have also provided written information for the patient's review. 6-He is to follow by her PCP for general medical care/coordination of care. 7-NOT ON STEROIDS 8-To see PCP for to define appropriate vaccinations above. 9-Potential for thromboembolism: to watch for potential DVT/Pulmonary Embolism, and if so to go to the ED/call 911. 10-End of life issues: Adv Dir in chart. -Patient disa cussed, this important aspect, of his diagnosis, that is, that he acknowledges, that this condition will end his life, at young age, and relatively soon and that he has goals, for the next year or so, that is, to attend, important milestones events of his children's, which will take place, in the next year or so. Currently,02/19/24 his children's are 20 and 21 years old. He has seen Dr. Lion, from palliative medicine will also give advice regarding his. 11-psychosocial issues: Patient asked, advised on how to approach, his current diagnosis and progressive disease, with his children who are 2020. We given some advice, how it could be helpful for his children to cope with his unfortunate condition. However, we recommended for him to seek attention from psychosocial oncology, and this Could be expanded to the family. He has seen Dr. Daniel Juárez from psychology and psychiatry, as well FAMILY SERVICES SPECIALIST Jaclyn Guillory. I saw the patient in collaboration with Lester Beckett RN [facility] clinical trials nurse. In the end the patient and family verbalized understanding of the above, they had questions which I believe I answered to their satisfaction and agreed with these recommendations and had no further questions or concerns for the moment, but I encourage them to call the [facility] with any questions or concerns. I spent a total of 40 minutes on the date of the service which included preparing to see the patient, at least 50% of lefv-lz-gktz patient care, completing clinical documentation, obtaining and/or reviewing separately obtained history, performing a medically appropriate examination, counseling and educating the patient/family/caregiver, ordering medications, tests, or procedures, communicating with other HCPs (not separately reported), independently interpreting results (not separately reported), communicating results to the patient/family/caregiver and care coordination (not separately reported). Patricia Enriquez MD [facility] Patient Care Team: -Jose Evans MD, Neurosurgery, [facility], [facility], [facility] Cyndee Joyce MD, PhD, Radiation Oncology, [facility], [facility]. Jaclyn Guillory, JULIO as Pull Worker (Hematology/Oncology) Soraida Simmons RN (Hospice AND Palliative Medicine) Willy Lion MD (Hospice AND Palliative Medicine) Rupa Khoury APRN.EDSON (Hospice AND Palliative Medicine) Daniel Juárez PSYD, Psychology, [facility] PROGRESS Observed: 05/12/2024 9:41 AM Status: COMPLETED Source: [facility] HNO ID: [id number] Author: NADEEN BECKETT RN Service: ? Author Type: Registered Nurse Type: Progress Notes Filed: 05/23/2024 15:59 Note Text: IRB#: [id number] Case 3322 - Targeting Transsulfuration via Suppression of Thyroid Hormone Signaling in Progressive Glioblastoma; Modified Phase 1/2 and Pharmacodynamic Trial of Methimazole in Patients with Progressive WHO Grade 4 Glioblastoma SCREENING PATIENT NAME: Angel Keating : 1970 Patient verified by name and : YES Patient study ID: [id number] Primary MD: Dr. Enriquez Patient presents for Screening Visit of IRB# [id number] - Case 3322 Screening date: 05/12/2024 Informed consent signed on: 05/12/2024; prior to any study related procedures being performed that are not SOC. Physical Exam completed by: Dr. Enriquez Physical Exam completed by a resident or fellow: NO Patient is a candidate for further resection per Dr. Evans: YES Patient has been deemed by Dr. Enriquez to be a candidate for post-operative chemotherapy: YES Patient has ability to understand consent and willingness to sign written informed consent: YES Patient has voluntarily consented for study: YES Patient has an established PCP for standard care: YES Patient is aware study medication will be standard of care and will be billed to insurance provider: YES Patient is aware medication (Methimazole) will be picked up at [facility] outpatient pharmacy prior to Pre-Surgical visit and patient will be responsible for co-pay, if applicable: YES General Screening: Patient is 18 years of age or older: YES Life expectancy >12 weeks: Yes per KPS is >= 70: YES ; KPS: 90: Able to carry on normal activity; minor signs or symptoms of disease Patient is of childbearing potential: YES Patient is willing to employ effective control from screening, 05/12/2024, to >=30 days after the last dose of Methimazole: YES Contraception: Male Condoms Patient is not or : CORRECT Patient is able to swallow pills whole: YES Patient is willing to provide blood samples for pharmacokinetic testing for this clinical trial: YES Is patient able and willing to have head contrast enhanced MRI: YES Patient is willing and able to maintain appropriate drug diary: YES Patient has NO history of allergic reactions or severe hypersensitivity attributed to compounds of similar chemical or biologic composition to Methimazole: CORRECT Allergies: ALLERGIES No Known Allergies Presence of serious, significant or uncontrolled medical disorder or illness or abnormal laboratory finding that, in the opinion of the loss prevention investigator, may increase the risk associated with study participation or study drug administration or impair the ability of the subject to receive protocol therapy or interfere with the interpretation of results, or in the Electric Motor Tester Assembler's judgment, make the patient inappropriate for this study. NO NO presence of an ongoing infection: CORRECT Presence of prior or concurrent malignancy: NO; If Yes, this prior or concurrent malignancy's natural history or treatment does not interfere with the safety, efficacy, or assessment of this clinical trial: CORRECT per Dr. Enriquez Presence of symptomatic CHF (regardless of NYHA functional classification): NO Presence of clinically significant cardiovascular or vascular disease: NO Presence of uncontrolled hypertension (>=165/90 mmHg): NO Presence of unstable angina: NO Presence of cardiac arrhythmia: NO Presence of a psychiatric illness or social situation that would limit compliance: NO Previous history of GI diverticulitis, perforation or abscesses or has presence of active GI bleeding: NO} Patient has NO previous history of significant chronic gastrointestinal disorder with diarrhea as a major symptom (e.g., Crohn's disease, malabsorption, or Grade >=2 diarrhea of any etiology): CORRECT History of HIV-positive test: NO; if Yes, see below Patient has met the above criteria (numbers 1, 2, and 3) if HIV-positive: N/A History of chronic hepatitis B virus (HBV) infection or known positive test for HBV surface antigen (HBV sAg): NO; if Yes, see below If Yes was documented above, patient must meet additional criteria: Previous history of hepatitis C virus (HCV) infection: NO; if Yes, patient has been treated and cured: N/A History of active hepatitis C virus (HCV) infection OR known positive test for HCV ribonucleic acid (HCV RNA): NO; if Yes, see below If Yes was documented above, patient must meet additional criteria: Patient has an HCV viral load that is undetectable on suppressive therapy: N/A Patient has NO known history of hyperthyroidism or hypothyroidism: CORRECT Grade IV Screening: Histologically or cytologically confirmed WHO grade 4 glioma (including tumors with molecularly defined grade 4 astrocytoma) for which a clinically indicated tumor resection is planned: YES Interval of > 4 weeks since any surgical intervention: YES Chemotherapy/Immunotherapy screening: Patient has not have received methimazole for this disease: CORRECT Interval of > 6 weeks from nitrosourea chemotherapy: YES ; No Previous Nitrosourea Chemotherapy; last dose: N/A Interval of greater than standard intervals from cytotoxic chemotherapy; i.e., for temozolomide 5 of 28, 23 days after most recent temozolomide; for temozolomide 21 of 28 days, 7 days after most recent dose; etoposide 14 of 21 days, 7 days after last dose. : YES ; Temozolomide; last dose: 12/28/2023 Interval of > 2 weeks from non-cytotoxic chemotherapy: YES Patient is NOT receiving any other investigational agents: CORRECT Patient has NO prior treatment toxicities that have not resolved to <= Grade 1 (except alopecia and neuropathy per CTCAE v 5): CORRECT Current medications: Is patient on baseline medications for thyroid: No Medications to avoid for clinical trial: Is patient on any of the medication listed above: No If Yes, physician has been notified: N/A Patient is on full dose anticoagulants (e.g., warfarin or LMW heparin): NO; If Yes, patient meets both of the following criteria: Patient has NO active bleeding or pathological condition that carries a high risk of bleeding (e.g., tumor involving major vessels or known varices): CORRECT In-range INR (between 2 and 3) on a stable dose of oral anticoagulant or on a stable dose of low molecular weight heparin: CORRECT Concomitant Medications: Medication Dose Start Date Stop Date Comments Vimpat Tylenol Zofran Medication Dose Start Date Stop Date Comments Concomitant medications reviewed per protocol: yes; Changes per patient: yes please see above Current use of herbal preparations or medications: NO Surgical History: PAST SURGICAL HISTORY Procedure Laterality Date APPENDECTOMY 1976 removed as part of internal bleeding due to trauma COLONOSCOPY FLX DX W/COLLJ SPEC WHEN PFRMD Colonoscopy ESOPHAGOGASTRODUODENOSCOPY TRANSORAL DIAGNOSTIC EGD EXCIS SUPRATENT BRAIN TUMOR 03/19/2023 Left-sided craniotomy for temporal mass resection by Dr. Evans; path = GBM ORTHOPEDICS SURGERY HX 1996 knee surgery SHX CRANIOTOMY Left 03/19/2023 Medical History: PAST MEDICAL HISTORY Diagnosis Date At risk for seizures 03/19/2023 due to left temporal glioblastoma GBM (glioblastoma multiforme) (HCC) 03/19/2023 WHO Grade 4 GBM; IDH1 R132H negative (wildtype); ATRX retained (wildtype); BRAF V600E negative (wildtype); p53 strong up to 40%; Ki67 up to 25%, MGMT unmethylated Seizure manifestions: Word finding difficulty First seizure: 03/2023 Last seizure: 03/2023 AEDs: Vimpat MEDICAL HISTORY - Baseline CTCAE v5: Baseline Complaints per CTCAE v. 5: All predate therapy, are chronic conditions and will not be actively followed unless they worsen during the clinical trial. Neuro, other (thought process changes) - Grade 1 - Baseline; Probable to study disease. Symptom is: Controlled with no intervention; Approximately started: 03/16/2023 to present; Baseline at screening 04/09/2023 Seizures (at risk for) - Grade 1 - Baseline; Unrelated to historical disorder/disease; Probable to study disease. Symptom is: Controlled with medications (keppra/vimpat); Approximately started: 03/16/2023 to present Seizure manifestions: possibly anxiety attacks -left temporal lobe tumor is at risk for seizures First seizure: March 2023 (possibly worsening anxiety attacks) Last seizure: unsure, as patient continues to be anxious, but has not had any recent anxiety attacks as of 04/09/2023 AEDs: single agent lacosamide 150 mg BID SYMPTOMS - Baseline CTCAE v5: Baseline Complaints per CTCAE v. 5: All predate therapy, are chronic conditions and will not be actively followed unless they worsen during the clinical trial. Anxiety - Grade 1 - Baseline; Unlikely to study disease. Symptom is: Controlled with lifestyle changes; Approximately started: 03/2023 to present; Baseline at screening 05/12/2024; Current status: Ongoing - stable Decreased Lymphocyte - Grade 1 - Baseline; Unlikely to study disease. Symptom is: Controlled with lifestyle changes; Approximately started: 05/12/2024 to present; Baseline at screening 05/12/2024; Current status: Ongoing - stable Vitals in clinic: 05/12/2024 9:10 AM ONCOLOGY VITALS (ALL DEPTS) Temp 36.9 ?C (98.5 ?F) Pulse 59 ! Resp 18 SYSTOLIC 129 DIASTOLIC 84 SpO2 100 % Height 177.4 cm (5' 9.84) Height 70 in Height 177.4 cm WEIGHT (lb) 221 lb 9 oz WEIGHT (kg) 100.5 kg BSA (Mosteller Formula) 2.23 m2 BMI 31.93 kg/m2 Legend: ! Abnormal Screening MRI: 04/12/2024 Baseline Tumor Measurements, dated 04/12/2024, routed to Dr. Enriquez: YES Screening EK05/12/2024 QTc interval >450 ms for men or >470 ms for women: NO, Baseline QTcF (05/12/2024): 393 ms Result: Normal Screening Labs: 05/12/2024 Baseline CrCl (05/12/2024): 99 ml/min (based on sCr of 1.20 mg/dL) Calculated creatinine clearance > 50 mL/min: YES Labs appropriate to proceed with screening: YES Negative Serum test, if applicable: N/A Palliative care services for symptom management and/or advanced care planning: Offered and declined Pre-surgical Tumor Measurement documentation forwarded to Dr. Enriquez to complete: YES Patient's neurosurgeon: Dr. Evans Tentative surgery scheduled: 05/27/2024 [facility] has been notified of potential patient: YES Patient's preferred pharmacy has been updated to refer to [facility] for [place] plan: YES Patient is aware, if eligible at the end of screening, that Methimazole will be ordered by provider and picked up from outpatient pharmacy at a specific time to begin drug at least >= 5 days prior to surgery: YES Patient expresses understanding to call with any questions or concerns in the interim and understanding of all instructions provided. Patient has the contact information for treating physician, research staff and the 24-hour Jnwrebxgmg-Xt-Yrvb number ([phone] or ) for the Heme/Onc Fellow. Nadeen Beckett RN May 12, 2024 9:41 AM Chart routed to Dr. Enriquez (Primary): YES CNOV Observed: 05/12/2024 9:30 AM Status: COMPLETED Source: [facility] Office Visit ([facility]) ANGEL KEATING ([id number]) 1970 M Date Time Provider Department 05/12/24 9:30 AM PATRICIA ENRIQUEZ [facility] During your visit today, we recorded the following information about you: Temperature Pulse Respiration Blood pressure 98.5 degrees 59/minute 18/minute 129/84 Weight Height 100.5 kg 1.774 m Karla Pedroza MA 05/12/2024 9:13 AM Signed Additional intake questions: Has the patient had fever, nausea, vomiting, diarrhea, constipation, fatigue for > 1 week? No Does the patient have a decreased appetite? No Does patient want to see a Outside Solar Sales Consultant? No (yes to any of above refer patient to schedulers for dietitian appointment) ) Does patient have any new or increased numbness or tingling of extremities? No Is patient interested in fertility information? No Does patient need any prescription refills? No Does patient have an advanced directive in place? Yes, copies are in Epic Electronically Signed By: SALEEM Zepeda Alejandro, MD 05/12/2024 6:14 PM Signed [facility] Follow up Clinic visit [facility] Team: -Jose Evans MD, Neurosurgery -SAV Rodriguez, Radiation Oncology -Patricia Enriquez MD, Neuro-Oncology DIAGNOSIS: MGMT unmethylated Glioblastoma. 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 He initially presented with anxiety-attack like episodes going back to January 2023 as well as a fall, without loss of consciousness but +trauma to head around 02/27/2023. On 03/16/2023, he presented to [facility] ED with word finding difficulty, report of one-time fever of 101 in February, anxiety, increased thirst and urination and was found to have a L temporal mass with midline subfalcine shift concerning for high grade glioma. He was afebrile with normal glucose level and electrolytes. He underwent gross total resection by Dr. Evans on 03/19/2023, revealing an MGMT unmethylated glioblastoma, WHO Grade 4. He was discharged on keppra 750mg BID and dexamethasone taper. He established care with Dr. Enriquez and given paroxysmal episodes of anxiety, he was concerned about temporal lobe epilepsy and advised lifelong AED to reduce seizure risk. The patient was exhibiting some fatigue and dullness, so a cross taper from keppra to vimpat, with goal of vimpat 150mg BID. The patient expressed interest in clinical trials and enrolled onto [facility]. He was randomized to the LG2302 arm (cyclic peptide modulating tumor microenvironment). TREATMENT HISTORY Gross total resection [03/19/2023] [facility] Dr. Evans MGMT unmethylated Glioblastoma. L temporal GCAR SHAMIR, randomized to [id number] IV twice weekly arm + Standard concurrent chemotherapy and radiation (04/20- 05/29/2023) [facility] Dr. Joyce and Dr. Enriquez Adjuvant temozolomide PO D1-5 q 28 days C1 07/01/23, will start 07/03 150mg/m2 C2 07/27/23 C3 08/31/23 C4 09/21/23 C5 10/26/23 C6 11/23/23 C7 12/28/23 STOP ADJ TMZ as the clinical; trial calls for up to 6 cycles. For some reason the patient had an extra cycle of Adj TMZ. Adjuvant [id number] during Maintenance: Cycle 7 Week 1 - infusions on 12/14/2023 (D1) and 12/17/2023 (D4) Cycle 7 Week 2 - infusions on 12/21/2023 (D8) and 12/24/2023 (D11) Cycle 7 Week 3 - infusions on 12/28/2023 (D15) and 12/31/2023 (D18) Cycle 7 Week 4 - infusions on 01/05/2024 (D22) and 01/08/2024 (D25) Cycle 8 Week 5 - infusions on 01/11/2024 and 01/14/2024 02/08/2024: MRI shows progression 02/08/24 [facility] Referrals to se Dr. Evans for possible surgery. If surgery offered, he can be enrolled in CASE 3322 clinical trial with methimazole + chemo. 02/18/24: Dr Evans recommended NO surgery. 02/26/24 Lomustine 90mg/m2 C#1 02/25-04/08/24 04/12/24 Tumor progression, increased CBV 04/14/2024 BTB Referrals to se Dr. Evans for possible surgery. The patient is also eligible, for CASE 3322 clinical trial with methimazole + chemo. 04/28/2024 Jose Evans MD since the patient, and recommended surgery. 04/28/2024 clinical trials team, I seen the patient, the patient is eligible, for for CASE 3322 clinical trial with methimazole + chemo. Patient signed consent. 05/11/24 In person visit The patient is unaccompanied He still with some language dysfunction but not worsening. Has no headaches or seizures. No other neurological issues. This visit, is for pre initiation of clinical trial. Last Chemo: see above Current Steroids dose: N/A Current AED Dose: lacosamide (VIMPAT) 150 mg tab Take 1 tablet by mouth two times a day. 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 Evans; path = GBM ORTHOPEDICS SURGERY HX 1996 knee surgery SHX CRANIOTOMY Left 03/19/2023 Family History: FAMILY HISTORY Problem Relation Age of Onset Diabetes Father Coronary Artery Disease Father Stroke Father Breast Cancer Mother None Sister Social History Tobacco Use Smoking status: Former Current packs/day: 1.00 Average packs/day: 1 pack/day for 4.0 years (4.0 ttl pk-yrs) Types: Cigarettes Smokeless tobacco: Never Vaping Use Vaping status: Never Used Substance Use Topics Alcohol use: Not Currently Comment: three beers a week Drug use: No Allergies: Patient has no known allergies. Current Outpatient Medications Medication Sig lacosamide (VIMPAT) 150 mg tab Take 1 tablet by mouth two times a day. iv contrast (will be provided with radiology test) MRI Brain Inject, intravenously, once for 1 dose.No IV access, insert saline lock prior to beginning of sedation, infusion, injection of imaging exam.Discontinue saline lock post exam. If Pt. has a central line or IVAD, may access for administration according to line specific nursing protocol.Once exam is complete flush line and de-access according to line specific nursing protocol in the MR contrast administration guidelines link iv contrast (will be provided with radiology test) MRI Brain Inject, intravenously, once for 1 dose.No IV access, insert saline lock prior to beginning of sedation, infusion, injection of imaging exam.Discontinue saline lock post exam. If Pt. has a central line or IVAD, may access for administration according to line specific nursing protocol.Once exam is complete flush line and de-access according to line specific nursing protocol in the MR contrast administration guidelines link meclizine (ANTIVERT) 25 mg tab Take 1 tablet by mouth three times a day. valACYclovir (VALTREX) 1 gram tablet Take 1,000 mg by mouth three times a day. ondansetron (ZOFRAN) 8 mg tablet Take one hour prior to temozolomide prescription then every 8 hours as needed for nausea. temozolomide (TEMODAR) 180 mg capsule Fast for one hour after taking Zofran and then take ONE 180 mg capsule, plus ONE 140 mg and TWO 5 mg capsules to total 330 mg. Then, fast for one hour after taking. Take on days 1-5 of your 28 day cycle. Temozolomide 140 mg capsule Fast for one hour after taking Zofran and then take ONE 180 mg capsule, plus ONE 140 mg and TWO 5 mg capsules to total 330 mg. Then, fast for one hour after taking. Take on days 1-5 of your 28 day cycle. temozolomide (TEMODAR) 5 mg capsule Fast for one hour after taking Zofran and then take ONE 180 mg capsule, plus ONE 140 mg and TWO 5 mg capsules to total 330 mg. Then, fast for one hour after taking. Take on days 1-5 of your 28 day cycle. ondansetron (ZOFRAN) 8 mg tablet Take 1 tablet (8 mg) by mouth one hour before taking temozolomide dosing. Take on an empty stomach (Patient taking differently: Take 1 tablet (8 mg) by mouth one hour before taking temozolomide dosing. Take on an empty stomach) sennosides (SENNA ORAL) Take by mouth. DIETARY SUPPLEMENT,MISC COMB14 ORAL Take by mouth. Biomega 1000mg containing vitamin E and pure anchovy medical supply, miscellaneous (MISCELLANEOUS MEDICAL SUPPLY MIS) Neurotrophin acetaminophen (TYLENOL) 325 mg tablet 2 tablets by ORAL/FEEDING TUBE route every 4 hours as needed for pain. pantoprazole DR (PROTONIX) 20 mg tablet Take 1 tablet by mouth DAILY (6 AM). midazolam (NAYZILAM) 5 mg/spray (0.1 mL) nasal spray Use 1 [place] in the nose as needed for up to 10 days. May repeat dose in alternate nostril after 10 minutes based on response and tolerability. No current facility-administered medications for this visit. Review of systems: Constitutional: No recent fever or weight loss. Eyes: No history of glaucoma or cataracts. ENMT: No recent ear infection, nasal congestion, mouth sores or sore throat. CV: No history of chest pain, palpitations or leg swelling. Respiratory: No history of SOB, asthma or recent cough. Gastrointestinal: No history of nausea, vomiting, dysphagia or abdominal pain. Genitourinary: No history of hematuria or dysuria. Musculoskeletal: No complaint of arthritis, unstable gait or arm/leg weakness. Psychiatric: No history of hallucinations or depression or anxiety. ROS Neurological: No complaint of headache. No complaint of tinnitus. No complaint of decreased hearing. No complaint of diplopia. No complaints of decreased visual acuity. No complaint of arm/leg numbness. No problem with limb coordination. No complaint of syncope, seizures or disorientation. Objective Physical Exam: BP 129/84 Pulse (!) 59 Temp 36.9 ?C (98.5 ?F) (Oral) Resp 18 Ht 177.4 cm (5' 9.84) Wt 100.5 kg (221 lb 9 oz) SpO2 100% BMI 31.93 kg/m? GENERAL EXAM: General appearance: Well appearing, alert, in no acute distress Skin: Skin color, texture, turgor normal Oropharynx: No thrush noted. Lungs: Lungs clear to auscultation. No wheezing, rhonchi, rales Heart: RRR without murmur, gallop, or rubs. No ectopy Abdomen: Normal abdominal exam, Abdomen soft, non-tender. Bowel sounds normal. Extremities: No deformities, skin discoloration, clubbing or cyanosis. Good capillary refill, no edema to BLE. Harmony's sign negative. No pain to palpation. NEUROLOGICAL EXAM: Higher integrative functions: Oriented to person, place AND time. Attention Span and Concentration: Good. Language: Accurate naming of objects. Good comprehension. Fund of Knowledge: Good. 2nd CN: Full visual land. 3rd,4th,6th CN: Pupils equal, round, react to light, full extraocular movements. 5th CN: No decrease in facial sensation 7th CN: Facial muscles symmetric and strong. 8th CN: Hears finger rub well bilaterally. 9th CN: Gag reflex not tested 10th CN: Spontaneous palate movement, full and symmetric. 11th CN: Full strength in shoulder shrug. 12th CN: Tongue protrusion full and midline. Sensation: No decrease in sensation in upper or lower limbs to touch. Musculoskeletal: Gait steady. Tandem walk normal. Romberg negative. Motor: 5/5 RUE/RLE; 5/5 LUE/LLENormal muscle tone without atrophy in all limbs. Coordination: Rapid alternating movements LUE intact; RUE intact Reflexes: 1-2+ ALL limbs. Plantar response down going. Karnofsky performance status: 90 - Able to carry on normal activity, minor signs or symptoms of disease. ECOG performance status: 1 - Restricted in physically strenuous activity but ambulatory and able to carry out work of a light or sedentary nature, e.g., light house work or office work. 05/18/2023 PHQ 2 and 9 Total Scores PHQ-2 Score 1 PHQ-9 Score 8 Labs: Latest Ref Rng AND Units 02/08/2024 03/18/2024 04/08/2024 CBC WBC 3.70 - 11.00 k/uL 4.42 5.06 3.11 RBC 4.20 - 6.00 m/uL 4.39 4.22 4.26 Hemoglobin 13.0 - 17.0 g/dL 14.2 13.7 13.9 Hematocrit 39.0 - 51.0 % 39.8 38.2 39.9 MCV 80.0 - 100.0 fL 90.7 90.5 93.7 MCH 26.0 - 34.0 pg 32.3 32.5 32.6 MCHC 30.5 - 36.0 g/dL 35.7 35.9 34.8 RDW-CV 11.5 - 15.0 % 12.9 13.2 14.1 Platelet Count 150 - 400 k/uL 196 137 240 MPV 9.0 - 12.7 fL 8.9 8.2 8.8 Baso% % 0.7 0.6 0.6 Abs Neut (ANC) 1.45 - 7.50 k/uL 3.30 3.79 1.96 Abs Lymph 1.00 - 4.00 k/uL 0.62 0.63 0.67 Abs Branch <0.87 k/uL 0.35 0.55 0.41 Abs Eosin <0.46 k/uL 0.11 0.05 0.04 Abs Baso <0.11 k/uL 0.03 0.03 <0.03 NRBC /100 WBC 0.0 0.0 0.0 Latest Ref Rng AND Units 02/08/2024 03/18/2024 04/08/2024 CMP Sodium 136 - 144 mmol/L 139 140 136 Potassium 3.7 - 5.1 mmol/L 4.3 3.9 4.3 Chloride 98 - 107 mmol/L 106 106 103 CO2 22 - 30 mmol/L 23 23 26 Glucose 74 - 99 mg/dL 99 96 96 BUN 9 - 24 mg/dL 18 13 16 Creatinine 0.73 - 1.22 mg/dL 1.13 1.05 1.23 EGFR >=60 mL/min/1.73m? 77 84 69 Protein, Total 6.3 - 8.0 g/dL 6.8 6.5 7.2 Albumin 3.9 - 4.9 g/dL 3.8 4.1 4.1 Calcium 8.5 - 10.2 mg/dL 9.0 8.9 9.0 Bilirubin, Total 0.2 - 1.3 mg/dL 0.4 0.5 0.5 AST 14 - 40 U/L 13 13 14 ALT 10 - 54 U/L 10 9 11 Alkaline Phosphatase 38 - 113 U/L 96 79 88 Final Pathology: SURGICAL PATHOLOGY: [id number] Order: [id number] Collected 03/19/2023 10:24 AM Status: Edited Result - FINAL Visible to patient: Yes (not seen) Dx: Brain tumor (HCC) 0 Result Notes Component FINAL DIAGNOSIS A, B. Brain, left temporal mass, biopsy and resection: - Morphologically consistent with high grade glioma. See comment. Diagnosis Comment CARLOS stained sections reveal a hypercellular infiltrating glioma with moderate to marked nuclear pleomorphism and increased mitoses (upto 4 per 10 high per field). Pseudopalisading necrosis and microvascular proliferation are identified. Immunohistochemical stains are performed at [facility] to better classify this lesion (block B1) and show the following in neoplastic cells: IDH1 R132H: neagtive (wildtype); ATRX: retained (wildtype); BRAF V600E: negative (wildtype); p53 strong nuclear positivity in up to 40%; Ki67 proliferative index up to 25%. Addendum This addendum is rendered to report the results of the following molecular studies: Targeted Oncology Panel: The oncogenic TERT promoter alteration, c.-124C>T (also known as C228T) was detected in this specimen; MGMT promoter methylation: not hypermethylated. 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 Addendum electronically signed by Krista Snow MD on 04/03/2023 at 9:13 AM Imaging: MRI Report MRI BRAIN WO/W IVCON Exam End: 04/12/2024 3:52 PM (Final result) Narrative: * * *Final Report* * * DATE OF EXAM: Apr 12 2024 3:52PM CAM [id number] - MRI BRAIN WO/W IVCON / PROCEDURE REASON: GBM (glioblastoma multiforme) (HCC) * * * * Physician Interpretation * * * * EXAMINATION: MRI BRAIN WO/W IVCON CLINICAL HISTORY: GBM. TECHNIQUE: Routine brain MRI protocol without and with contrast including diffusion images. MQ: [id number] Contrast: 20 mL Dotarem IV COMPARISON: MRI brain performed 02/08/2024. RESULT: Acute Change: There is no evidence of restricted diffusion to suggest an acute infarct. Hemorrhage: Faint magnetic susceptibility representing remote blood degradation byproducts or constipation within the RIGHT caudate head. Mass Lesion/ Mass Effect: LEFT pterional craniotomy. Extensive confluent T2 and FLAIR hyperintensity present within the anterior LEFT temporal lobe with extension superiorly to involve the medial LEFT temporal lobe and inferior aspect of the LEFT insula which appears mildly progressed in extent when compared with prior examination. Following contrast administration there is extensive ill-defined enhancement which is markedly progressed, now more confluent involving majority of the anterior LEFT temporal lobe, measuring approximately 3.2 transverse by 3.0 AP centimeters. No additional or remote areas of abnormal enhancement are present. Increased cerebral blood volume corresponding to areas enhancement. Chronic Change: The white matter is within normal limits of signal intensity for age. Parenchyma: There is mild generalized parenchymal volume loss. The brain parenchyma is otherwise within normal limits of signal intensity and morphology. Ventricles: Ventriculomegaly corresponds to the degree of parenchymal volume loss. Skull Base: Hypothalamic and pituitary region are grossly normal. Craniocervical junction is normal. No significant marrow replacement process. Vasculature: Major intracranial arterial structures, and dural venous sinuses show typical flow void, suggesting patency by spin echo criteria. Other: Minimal mucosal thickening present within the imaged paranasal sinuses. Impression: IMPRESSION: Interval progression of enhancement and T2/flair changes within the anterior LEFT temporal lobe as detailed above. 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 Now with progressive disease per MRI from 04/12/2024 --The patient is eligible for CASE 3322 clinical trial with methimazole + chemo. Patient signed consent. I discussed with the patient, the lesion in the sample enrollment on this clinical trial, the potential benefits and side effects, and the patient, agrees to be enrolled in this trial, and go on the treatments as proposed, and has no further question concerns. PLAN: 1- GBM-MGMT promoter not hyper methylated. MRI of the brain from Apr 12, 2024, shows increased enhancement, with increased CBV. -The patient has been seen by Dr. Man his neurosurgeon and he has recommended surgery, which will take place, and May 27, 2024. -The patient is eligible for CASE 3322 clinical trial with methimazole + chemo. Patient signed consent. -The patient will start methimazole, 5 days prior to chemotherapy. 2-ikxyejyrbpfc-wxucqlc nausea: -Use Zofran, and as needed 3-Imaging surveillance: -Brain w and w/o contrast and perfusion -interval, per the clinical trial 2A-Clinic visits: -per clinical trial 3-Bone marrow suppression from chemotherapy: periodic CBC, every 4 weeks Also, CMP every 4 weeks. Other blood test, per clinical trial 4- Seizures: Since I saw him last, he has not had any events to suggest seizures (02/19/2024). -On lacosamide (Vimpat): Started on 04/05/23. Dose is 150 mg twice a day. -Recommend to do lacosamide blood levels, to be done in the next 1 to 2 weeks. It should be a trough level, that is, in the morning, prior to the a.m. dose. 5-Seizure precautions: The patient is not to drive any motorized vehicle, and not to engage in activities that could place her or others in danger if she were to have a seizure. I also discussed the use of rescue medication for breakthrough seizures, using midazolam nasal spray (NS) to use it as needed (PRN) and discussed when to use it. I discussed the potential benefits and side effects, including tiredness, fatigue, and or sleepiness and if so, the patient is not to engage in activities that require to be fully alert. I have also provided written information for the patient's review. 6-He is to follow by her PCP for general medical care/coordination of care. 7-NOT ON STEROIDS 8-To see PCP for to define appropriate vaccinations above. 9-Potential for thromboembolism: to watch for potential DVT/Pulmonary Embolism, and if so to go to the ED/call 911. 10-End of life issues: Adv Dir in chart. -Patient disa cussed, this important aspect, of his diagnosis, that is, that he acknowledges, that this condition will end his life, at young age, and relatively soon and that he has goals, for the next year or so, that is, to attend, important milestones events of his children's, which will take place, in the next year or so. Currently,02/19/24 his children's are 20 and 21 years old. He has seen Dr. Lion, from palliative medicine will also give advice regarding his. 11-psychosocial issues: Patient asked, advised on how to approach, his current diagnosis and progressive disease, with his children who are 2020. We given some advice, how it could be helpful for his children to cope with his unfortunate condition. However, we recommended for him to seek attention from psychosocial oncology, and this Could be expanded to the family. He has seen Dr. Daniel Juárez from psychology and psychiatry, as well FAMILY SERVICES SPECIALIST Jaclyn Guillory. I saw the patient in collaboration with Lester Beckett RN [facility] clinical trials nurse. In the end the patient and family verbalized understanding of the above, they had questions which I believe I answered to their satisfaction and agreed with these recommendations and had no further questions or concerns for the moment, but I encourage them to call the [facility] with any questions or concerns. I spent a total of 40 minutes on the date of the service which included preparing to see the patient, at least 50% of [id number] patient care, completing clinical documentation, obtaining and/or reviewing separately obtained history, performing a medically appropriate examination, counseling and educating the patient/family/caregiver, ordering medications, tests, or procedures, communicating with other HCPs (not separately reported), independently interpreting results (not separately reported), communicating results to the patient/family/caregiver and care coordination (not separately reported). Patricia Enriquez MD [facility] Patient Care Team: -Jose Evans MD, Neurosurgery, [facility], [facility] Cyndee Joyce MD, PhD, Radiation Oncology, [facility], [facility]. Jaclyn Guillory, JULIO as Pull Worker (Hematology/Oncology) Soraida Simmons RN (Hospice AND Palliative Medicine) Willy Lion MD (Hospice AND Palliative Medicine) Rupa Khoury APRN.EDSON (Hospice AND Palliative Medicine) Daniel Juárez PSYD, Psychology, [facility] Referring Provider: PATRICIA ENRIQUEZ [[id number]] Allergies As of Date: 05/12/2024 (No Known Allergies) Date Reviewed: 05/12/2024 Reviewed by: Karla Pedroza MA - Fully Assessed Reason for Visit: Established Patient [175] Primary Visit Diagnosis:GBM (glioblastoma multiforme) (HCC) [C71.9] Other Visit Diagnosis:Seizures (HCC) [R56.9] Order(s):LACOSAMIDE [SQLACOS] Order #: [id number] FUTURE Prescriptions as of 05/12/2024 - ondansetron (ZOFRAN) 8 mg tablet Take one tablet by mouth one hour prior to chemo. May repeat dose every 8-12 hours if needed to prevent nausea - lacosamide (VIMPAT) 150 mg tab Take 1 tablet by mouth two times a day. - iv contrast (will be provided with radiology test) MRI Brain Inject, intravenously, once for 1 dose.No IV access, insert saline lock prior to beginning of sedation, infusion, injection of imaging exam.Discontinue saline lock post exam. If Pt. has a central line or IVAD, may access for administration according to line specific nursing protocol.Once exam is complete flush line and de-access according to line specific nursing protocol in the MR contrast administration guidelines link - iv contrast (will be provided with radiology test) MRI Brain Inject, intravenously, once for 1 dose.No IV access, insert saline lock prior to beginning of sedation, infusion, injection of imaging exam.Discontinue saline lock post exam. If Pt. has a central line or IVAD, may access for administration according to line specific nursing protocol.Once exam is complete flush line and de-access according to line specific nursing protocol in the MR contrast administration guidelines link - meclizine (ANTIVERT) 25 mg tab Take 1 tablet by mouth three times a day. - valACYclovir (VALTREX) 1 gram tablet Take 1,000 mg by mouth three times a day. - midazolam (NAYZILAM) 5 mg/spray (0.1 mL) nasal spray Use 1 [place] in the nose as needed for up to 10 days. May repeat dose in alternate nostril after 10 minutes based on response and tolerability. - sennosides (SENNA ORAL) Take by mouth. - DIETARY SUPPLEMENT,MISC COMB14 ORAL Take by mouth. Biomega 1000mg containing vitamin E and pure anchovy - medical supply, miscellaneous (MISCELLANEOUS MEDICAL SUPPLY MISC) Neurotrophin - acetaminophen (TYLENOL) 325 mg tablet 2 tablets by ORAL/FEEDING TUBE route every 4 hours as needed for pain. - pantoprazole DR (PROTONIX) 20 mg tablet Take 1 tablet by mouth DAILY (6 AM). Problem List As Of Date 05/12/2024 Noted Resolved Chest Pain [R07.9] 04/25/2010 Brain mass [G93.89] 03/17/2023 11/17/2023 Obesity, Class I, BMI 30-34.9 [E66.811] 03/17/2023 Brain compression (HCC) [G93.5] 03/20/2023 S/P brain surgery [Z98.890] 03/20/2023 11/17/2023 At risk for seizures [Z91.89] 03/20/2023 Cerebral edema (HCC) [G93.6] 03/20/2023 GBM (glioblastoma multiforme) (HCC) [C71.9] 04/07/2023 Syncope, unspecified syncope type [R55] 11/01/2023 11/03/2023 Examination of participant in clinical trial [Z*11/05/2023 11/17/2023 Forehead pain [R51.9] 11/05/2023 Visit Notes: >> Karla Pedroza MA [facility] May 12, 2024 9:10 AM Status: Signed Additional intake questions: Has the patient had fever, nausea, vomiting, diarrhea, constipation, fatigue for > 1 week? No Does the patient have a decreased appetite? No Does patient want to see a Outside Solar Sales Consultant? No (yes to any of above refer patient to schedulers for dietitian appointment) ) Does patient have any new or increased numbness or tingling of extremities? No Is patient interested in fertility information? No Does patient need any prescription refills? No Does patient have an advanced directive in place? Yes, copies are in Epic Electronically Signed By: Karla Pedroza MA Encounter Status:Closed by PATRICIA ENRIQUEZ on 05/12/24 CNNURSE Observed: 05/12/2024 12:00 AM Status: COMPLETED Source: [facility] Nurse Visit (NSCAMN) ANGEL KEATING ([id number]) 1970 M Date Time Provider Department 05/12/24 NADEEN BECKETT NSC During your visit today, we recorded the following information about you: Nadeen Beckett RN 05/23/2024 3:59 PM Signed IRB#: [id number] Case 3322 - Targeting Transsulfuration via Suppression of Thyroid Hormone Signaling in Progressive Glioblastoma; Modified Phase 1/2 and Pharmacodynamic Trial of Methimazole in Patients with Progressive WHO Grade 4 Glioblastoma SCREENING PATIENT NAME: Angel Keating : 1970 Patient verified by name and : YES Patient study ID: [id number] Primary MD: Dr. Enriquez Patient presents for Screening Visit of IRB# [id number] - Case 3322 Screening date: 05/12/2024 Informed consent signed on: 05/12/2024; prior to any study related procedures being performed that are not SOC. Physical Exam completed by: Dr. Enriquez Physical Exam completed by a resident or fellow: NO Patient is a candidate for further resection per Dr. Evans: YES Patient has been deemed by Dr. Enriquez to be a candidate for post-operative chemotherapy: YES Patient has ability to understand consent and willingness to sign written informed consent: YES Patient has voluntarily consented for study: YES Patient has an established PCP for standard care: YES Patient is aware study medication will be standard of care and will be billed to insurance provider: YES Patient is aware medication (Methimazole) will be picked up at [facility] outpatient pharmacy prior to Pre-Surgical visit and patient will be responsible for co-pay, if applicable: YES General Screening: Patient is 18 years of age or older: YES Life expectancy >12 weeks: Yes per KPS is >= 70: YES ; KPS: 90: Able to carry on normal activity; minor signs or symptoms of disease Patient is of childbearing potential: YES Patient is willing to employ effective control from screening, 05/12/2024, to >=30 days after the last dose of Methimazole: YES Contraception: Male Condoms Patient is not or : CORRECT Patient is able to swallow pills whole: YES Patient is willing to provide blood samples for pharmacokinetic testing for this clinical trial: YES Is patient able and willing to have head contrast enhanced MRI: YES Patient is willing and able to maintain appropriate drug diary: YES Patient has NO history of allergic reactions or severe hypersensitivity attributed to compounds of similar chemical or biologic composition to Methimazole: CORRECT Allergies: ALLERGIES No Known Allergies Presence of serious, significant or uncontrolled medical disorder or illness or abnormal laboratory finding that, in the opinion of the loss prevention investigator, may increase the risk associated with study participation or study drug administration or impair the ability of the subject to receive protocol therapy or interfere with the interpretation of results, or in the Electric Motor Tester Assembler's judgment, make the patient inappropriate for this study. NO NO presence of an ongoing infection: CORRECT Presence of prior or concurrent malignancy: NO; If Yes, this prior or concurrent malignancy's natural history or treatment does not interfere with the safety, efficacy, or assessment of this clinical trial: CORRECT per Dr. Enriquez Presence of symptomatic CHF (regardless of NYHA functional classification): NO Presence of clinically significant cardiovascular or vascular disease: NO Presence of uncontrolled hypertension (>=165/90 mmHg): NO Presence of unstable angina: NO Presence of cardiac arrhythmia: NO Presence of a psychiatric illness or social situation that would limit compliance: NO Previous history of GI diverticulitis, perforation or abscesses or has presence of active GI bleeding: NO} Patient has NO previous history of significant chronic gastrointestinal disorder with diarrhea as a major symptom (e.g., Crohn's disease, malabsorption, or Grade >=2 diarrhea of any etiology): CORRECT History of HIV-positive test: NO; if Yes, see below Patient has met the above criteria (numbers 1, 2, and 3) if HIV-positive: N/A History of chronic hepatitis B virus (HBV) infection or known positive test for HBV surface antigen (HBV sAg): NO; if Yes, see below If Yes was documented above, patient must meet additional criteria: Previous history of hepatitis C virus (HCV) infection: NO; if Yes, patient has been treated and cured: N/A History of active hepatitis C virus (HCV) infection OR known positive test for HCV ribonucleic acid (HCV RNA): NO; if Yes, see below If Yes was documented above, patient must meet additional criteria: Patient has an HCV viral load that is undetectable on suppressive therapy: N/A Patient has NO known history of hyperthyroidism or hypothyroidism: CORRECT Grade IV Screening: Histologically or cytologically confirmed WHO grade 4 glioma (including tumors with molecularly defined grade 4 astrocytoma) for which a clinically indicated tumor resection is planned: YES Interval of > 4 weeks since any surgical intervention: YES Chemotherapy/Immunotherapy screening: Patient has not have received methimazole for this disease: CORRECT Interval of > 6 weeks from nitrosourea chemotherapy: YES ; No Previous Nitrosourea Chemotherapy; last dose: N/A Interval of greater than standard intervals from cytotoxic chemotherapy; i.e., for temozolomide 5 of 28, 23 days after most recent temozolomide; for temozolomide 21 of 28 days, 7 days after most recent dose; etoposide 14 of 21 days, 7 days after last dose. : YES ; Temozolomide; last dose: 12/28/2023 Interval of > 2 weeks from non-cytotoxic chemotherapy: YES Patient is NOT receiving any other investigational agents: CORRECT Patient has NO prior treatment toxicities that have not resolved to <= Grade 1 (except alopecia and neuropathy per CTCAE v 5): CORRECT Current medications: Is patient on baseline medications for thyroid: No Medications to avoid for clinical trial: Is patient on any of the medication listed above: No If Yes, physician has been notified: N/A Patient is on full dose anticoagulants (e.g., warfarin or LMW heparin): NO; If Yes, patient meets both of the following criteria: Patient has NO active bleeding or pathological condition that carries a high risk of bleeding (e.g., tumor involving major vessels or known varices): CORRECT In-range INR (between 2 and 3) on a stable dose of oral anticoagulant or on a stable dose of low molecular weight heparin: CORRECT Concomitant Medications: Medication Dose Start Date Stop Date Comments Vimpat Tylenol Zofran Medication Dose Start Date Stop Date Comments Concomitant medications reviewed per protocol: yes; Changes per patient: yes please see above Current use of herbal preparations or medications: NO Surgical History: PAST SURGICAL HISTORY Procedure Laterality Date APPENDECTOMY 1976 removed as part of internal bleeding due to trauma COLONOSCOPY FLX DX W/COLLJ SPEC WHEN PFRMD Colonoscopy ESOPHAGOGASTRODUODENOSCOPY TRANSORAL DIAGNOSTIC EGD EXCIS SUPRATENT BRAIN TUMOR 03/19/2023 Left-sided craniotomy for temporal mass resection by Dr. Evans; path = GBM ORTHOPEDICS SURGERY HX 1996 knee surgery SHX CRANIOTOMY Left 03/19/2023 Medical History: PAST MEDICAL HISTORY Diagnosis Date At risk for seizures 03/19/2023 due to left temporal glioblastoma GBM (glioblastoma multiforme) (HCC) 03/19/2023 WHO Grade 4 GBM; IDH1 R132H negative (wildtype); ATRX retained (wildtype); BRAF V600E negative (wildtype); p53 strong up to 40%; Ki67 up to 25%, MGMT unmethylated Seizure manifestions: Word finding difficulty First seizure: 03/2023 Last seizure: 03/2023 AEDs: Vimpat MEDICAL HISTORY - Baseline CTCAE v5: Baseline Complaints per CTCAE v. 5: All predate therapy, are chronic conditions and will not be actively followed unless they worsen during the clinical trial. Neuro, other (thought process changes) - Grade 1 - Baseline; Probable to study disease. Symptom is: Controlled with no intervention; Approximately started: 03/16/2023 to present; Baseline at screening 04/09/2023 Seizures (at risk for) - Grade 1 - Baseline; Unrelated to historical disorder/disease; Probable to study disease. Symptom is: Controlled with medications (keppra/vimpat); Approximately started: 03/16/2023 to present Seizure manifestions: possibly anxiety attacks -left temporal lobe tumor is at risk for seizures First seizure: March 2023 (possibly worsening anxiety attacks) Last seizure: unsure, as patient continues to be anxious, but has not had any recent anxiety attacks as of 04/09/2023 AEDs: single agent lacosamide 150 mg BID SYMPTOMS - Baseline CTCAE v5: Baseline Complaints per CTCAE v. 5: All predate therapy, are chronic conditions and will not be actively followed unless they worsen during the clinical trial. Anxiety - Grade 1 - Baseline; Unlikely to study disease. Symptom is: Controlled with lifestyle changes; Approximately started: 03/2023 to present; Baseline at screening 05/12/2024; Current status: Ongoing - stable Decreased Lymphocyte - Grade 1 - Baseline; Unlikely to study disease. Symptom is: Controlled with lifestyle changes; Approximately started: 05/12/2024 to present; Baseline at screening 05/12/2024; Current status: Ongoing - stable Vitals in clinic: 05/12/2024 9:10 AM ONCOLOGY VITALS (ALL DEPTS) Temp 36.9 ?C (98.5 ?F) Pulse 59 ! Resp 18 SYSTOLIC 129 DIASTOLIC 84 SpO2 100 % Height 177.4 cm (5' 9.84) Height 70 in Height 177.4 cm WEIGHT (lb) 221 lb 9 oz WEIGHT (kg) 100.5 kg BSA (Mosteller Formula) 2.23 m2 BMI 31.93 kg/m2 Legend: ! Abnormal Screening MRI: 04/12/2024 Baseline Tumor Measurements, dated 04/12/2024, routed to Dr. Enriquez: YES Screening EK05/12/2024 QTc interval >450 ms for men or >470 ms for women: NO, Baseline QTcF (05/12/2024): 393 ms Result: Normal Screening Labs: 05/12/2024 Baseline CrCl (05/12/2024): 99 ml/min (based on sCr of 1.20 mg/dL) Calculated creatinine clearance > 50 mL/min: YES Labs appropriate to proceed with screening: YES Negative Serum test, if applicable: N/A Palliative care services for symptom management and/or advanced care planning: Offered and declined Pre-surgical Tumor Measurement documentation forwarded to Dr. Enriquez to complete: YES Patient's neurosurgeon: Dr. Evans Tentative surgery scheduled: 05/27/2024 [facility] has been notified of potential patient: YES Patient's preferred pharmacy has been updated to refer to [facility] for [place] plan: YES Patient is aware, if eligible at the end of screening, that Methimazole will be ordered by provider and picked up from outpatient pharmacy at a specific time to begin drug at least >= 5 days prior to surgery: YES Patient expresses understanding to call with any questions or concerns in the interim and understanding of all instructions provided. Patient has the contact information for treating physician, research staff and the 24-hour [id number] number ([phone] or ) for the Heme/Onc Fellow. Nadeen Beckett RN May 12, 2024 9:41 AM Chart routed to Dr. Enriquez (Primary): YES Allergies As of Date: 05/12/2024 (No Known Allergies) Date Reviewed: 05/12/2024 Reviewed by: Karla Pedroza MA - Fully Assessed Primary Visit Diagnosis:GBM (glioblastoma multiforme) (HCC) [C71.9] Prescriptions as of 05/23/2024 - ondansetron (ZOFRAN) 8 mg tablet Take one tablet by mouth one hour prior to chemo. May repeat dose every 8-12 hours if needed to prevent nausea - lacosamide (VIMPAT) 150 mg tab Take 1 tablet by mouth two times a day. - iv contrast (will be provided with radiology test) MRI Brain Inject, intravenously, once for 1 dose.No IV access, insert saline lock prior to beginning of sedation, infusion, injection of imaging exam.Discontinue saline lock post exam. If Pt. has a central line or IVAD, may access for administration according to line specific nursing protocol.Once exam is complete flush line and de-access according to line specific nursing protocol in the MR contrast administration guidelines link - iv contrast (will be provided with radiology test) MRI Brain Inject, intravenously, once for 1 dose.No IV access, insert saline lock prior to beginning of sedation, infusion, injection of imaging exam.Discontinue saline lock post exam. If Pt. has a central line or IVAD, may access for administration according to line specific nursing protocol.Once exam is complete flush line and de-access according to line specific nursing protocol in the MR contrast administration guidelines link - meclizine (ANTIVERT) 25 mg tab Take 1 tablet by mouth three times a day. - valACYclovir (VALTREX) 1 gram tablet Take 1,000 mg by mouth three times a day. - midazolam (NAYZILAM) 5 mg/spray (0.1 mL) nasal spray Use 1 [place] in the nose as needed for up to 10 days. May repeat dose in alternate nostril after 10 minutes based on response and tolerability. - sennosides (SENNA ORAL) Take by mouth. - DIETARY SUPPLEMENT,MISC COMB14 ORAL Take by mouth. Biomega 1000mg containing vitamin E and pure anchovy - medical supply, miscellaneous (MISCELLANEOUS MEDICAL SUPPLY MISC) Neurotrophin - acetaminophen (TYLENOL) 325 mg tablet 2 tablets by ORAL/FEEDING TUBE route every 4 hours as needed for pain. - pantoprazole DR (PROTONIX) 20 mg tablet Take 1 tablet by mouth DAILY (6 AM). Problem List As Of Date 05/12/2024 Noted Resolved Chest Pain [R07.9] 04/25/2010 Brain mass [G93.89] 03/17/2023 11/17/2023 Obesity, Class I, BMI 30-34.9 [E66.811] 03/17/2023 Brain compression (HCC) [G93.5] 03/20/2023 S/P brain surgery [Z98.890] 03/20/2023 11/17/2023 At risk for seizures [Z91.89] 03/20/2023 Cerebral edema (HCC) [G93.6] 03/20/2023 GBM (glioblastoma multiforme) (HCC) [C71.9] 04/07/2023 Syncope, unspecified syncope type [R55] 11/01/2023 11/03/2023 Examination of participant in clinical trial [Z*11/05/2023 11/17/2023 Forehead pain [R51.9] 11/05/2023 Encounter Status:Closed by NADEEN BECKETT on 05/23/24 CNNURSE Observed: 05/12/2024 12:00 AM Status: COMPLETED Source: [facility] Nurse Visit (NSCAMN) ANGEL KEATING ([id number]) 1970 M Date Time Provider Department 05/12/24 NADEEN BECKETT NSCAMN During your visit today, we recorded the following information about you: Allergies As of Date: 05/12/2024 (No Known Allergies) Date Reviewed: 05/12/2024 Reviewed by: Karla Pedroza MA - Fully Assessed Primary Visit Diagnosis:GBM (glioblastoma multiforme) (HCC) [C71.9] Prescriptions as of 06/07/2024 - iv contrast (will be provided with radiology test) MRI Brain Inject, intravenously, once for 1 dose.No IV access, insert saline lock prior to beginning of sedation, infusion, injection of imaging exam.Discontinue saline lock post exam. If Pt. has a central line or IVAD, may access for administration according to line specific nursing protocol.Once exam is complete flush line and de-access according to line specific nursing protocol in the MR contrast administration guidelines link - dexAMETHasone (DECADRON) 2 mg tablet Take 4 tablets by mouth two times a day with meals for 4 days, THEN 3 tablets two times a day with meals for 4 days, THEN 2 tablets two times a day with meals for 4 days, THEN 1 tablet two times a day with meals. - polyethylene glycol 3350 (MIRALAX) 17 gram/dose powder Take 17 g ( 1 capful) by mouth once daily for 10 days. Dissolve dose in 4 - 8 ounces of liquid and take as directed. - iv contrast (will be provided with radiology test) MRI Brain Inject, intravenously, once for 1 dose.No IV access, insert saline lock prior to beginning of sedation, infusion, injection of imaging exam.Discontinue saline lock post exam. If Pt. has a central line or IVAD, may access for administration according to line specific nursing protocol.Once exam is complete flush line and de-access according to line specific nursing protocol in the MR contrast administration guidelines link - methIMAzole (TAPAZOLE) 10 mg tablet Take TWO 10 mg tablets and ONE 5 mg tablet for a total dose of 25 mg, daily. - methIMAzole (TAPAZOLE) 5 mg tablet Take TWO 10 mg tablets and ONE 5 mg tablet for a total dose of 25 mg, daily. - ondansetron (ZOFRAN) 8 mg tablet Take one tablet by mouth one hour prior to chemo. May repeat dose every 8-12 hours if needed to prevent nausea - lacosamide (VIMPAT) 150 mg tab Take 1 tablet by mouth two times a day. - meclizine (ANTIVERT) 25 mg tab Take 1 tablet by mouth three times a day. - valACYclovir (VALTREX) 1 gram tablet Take 1,000 mg by mouth three times a day. - midazolam (NAYZILAM) 5 mg/spray (0.1 mL) nasal spray Use 1 [place] in the nose as needed for up to 10 days. May repeat dose in alternate nostril after 10 minutes based on response and tolerability. - sennosides (SENNA ORAL) Take by mouth. - DIETARY SUPPLEMENT,MISC COMB14 ORAL Take by mouth. Biomega 1000mg containing vitamin E and pure anchovy - medical supply, miscellaneous (MISCELLANEOUS MEDICAL SUPPLY MISC) Neurotrophin - acetaminophen (TYLENOL) 325 mg tablet 2 tablets by ORAL/FEEDING TUBE route every 4 hours as needed for pain. - pantoprazole DR (PROTONIX) 20 mg tablet Take 1 tablet by mouth DAILY (6 AM). Problem List As Of Date 05/12/2024 Noted Resolved Chest Pain [R07.9] 04/25/2010 Brain mass [G93.89] 03/17/2023 11/17/2023 Obesity, Class I, BMI 30-34.9 [E66.811] 03/17/2023 Brain compression (HCC) [G93.5] 03/20/2023 S/P brain surgery [Z98.890] 03/20/2023 11/17/2023 At risk for seizures [Z91.89] 03/20/2023 Cerebral edema (HCC) [G93.6] 03/20/2023 GBM (glioblastoma multiforme) (HCC) [C71.9] 04/07/2023 Syncope, unspecified syncope type [R55] 11/01/2023 11/03/2023 Examination of participant in clinical trial [Z*11/05/2023 11/17/2023 Forehead pain [R51.9] 11/05/2023 Encounter Status:Closed by NADEEN BECKETT on 06/07/24 ALLERGIES DATE TYPE / CODE NAME / CODE REACTION SEVERITY SOURCE Drug Class/875858685(SNO MED CT) NO KNOWN ALLERGIES [facility] ENCOUNTERS ADMIT/DISCHARGE ACCOUNT NUMBER ADMITTING ENCOUNTER CLASS LOCATION SOURCE 05/01/2025/05/06/20 [id number] ALLIE RICE Inpatient Encounter [facility] nRoom: 8114Bed: 02 [facility] 05/01/2025 [id number] [facility] HOSPITALBuild ing:REM [facility] 04/27/2025/04/27/20 [id number] Ambulatory [facility] HospitalBuild ing:WOL2 [facility] 04/25/2025/04/25/20 [id number] Ambulatory [facility] HospitalBuild ing:WOJHONATAN [facility] 04/25/2025/04/25/20 [id number] Ambulatory [facility] HospitalBuild ing:WOL2 [facility] 04/21/2025/04/21/20 [id number] Ambulatory [facility] HospitalBuild ing:WOL2 [facility] 04/20/2025/04/20/20 25 [id number] [facility] [place] [facility] 04/20/2025/04/20/20 25 [id number] Ambulatory [facility] HospitalBuild ing:NSCA [facility] 04/19/2025/04/19/20 25 [id number] [facility] 04/18/2025 [id number] Ambulatory [facility] HospitalBuild ing:WOMR [facility] 04/18/2025/04/18/20 25 [id number] [facility] 04/14/2025/04/14/20 25 [id number] Ambulatory [facility] HospitalBuild ing:WOHE [facility] 04/14/2025/04/14/20 25 [id number] Ambulatory [facility] HospitalBuild ing:WOL2 [facility] 04/13/2025/04/13/20 25 [id number] Ambulatory [facility] HospitalBuild ing:WOL2 [facility] 04/06/2025/04/06/20 25 [id number] Ambulatory [facility] HospitalBuild ing:SPCPHARMS [facility] 04/05/2025/04/05/20 25 [id number] Ambulatory [facility] HospitalBuild ing:NSCA [facility] 04/05/2025/04/06/20 25 [id number] Ambulatory [facility] HospitalBuild ing:HTM3 [facility] 04/03/2025/04/03/20 25 [id number] Ambulatory [facility] HospitalBuild ing:NSCA [facility] 03/24/2025/03/31/20 25 [id number] SRINIVASAN ZHAO [facility][id number]: [id number]: [id number] [facility] 03/06/2025/03/06/20 25 [id number] Ambulatory [facility] HospitalBuild ing:WOL2 [facility] 03/02/2025/03/02/20 25 [id number] Ambulatory [facility] HospitalBuild ing:NSCA [facility] 02/28/2025 [id number] Ambulatory [facility] HospitalBuild ing:WOMR [facility] 02/28/2025/02/29/20 25 [id number] Ambulatory [facility] HospitalBuild ing:WOHE [facility] 02/08/2025/02/09/20 25 [id number] Ambulatory [facility] HospitalBuild ing:WOUC [facility] 01/19/2025/01/20/20 25 [id number] Ambulatory [facility] HospitalBuild ing:HTLB [facility] 01/19/2025/01/20/20 25 [id number] Ambulatory [facility] HospitalBuild ing:NSCA [facility] 01/17/2025 [id number] Ambulatory [facility] HospitalBuild ing:WOHE [facility] 01/17/2025 [id number] Ambulatory [facility] HospitalBuild ing:WOMR [facility] 12/01/2024/12/02/19 25 [id number] Ambulatory [facility] HospitalBuild ing:NSCA [facility] 11/29/2024/11/30/19 25 [id number] Ambulatory [facility] HospitalBuild ing:WOL2 [facility] 11/17/2024/11/18/19 25 [id number] Ambulatory [facility] HospitalBuild ing:NSCA [facility] 11/16/2024/11/17/19 25 [id number] Ambulatory [facility] HospitalBuild ing:WOMR [facility] 11/16/2024/11/17/19 25 [id number] Ambulatory [facility] HospitalBuild ing:WOHE [facility] 11/11/2024/11/12/19 25 [id number] Ambulatory [facility] HospitalBuild ing:WOL2 [facility] 11/01/2024/10/06/19 25 [id number] Ambulatory [facility] HospitalBuild ing:NSCA [facility] 10/27/2024/10/28/19 25 [id number] Ambulatory [facility] HospitalBuild ing:WOL2 [facility] 10/21/2024/10/22/19 25 [id number] Ambulatory [facility] HospitalBuild ing:WOL2 [facility] 10/17/2024/10/18/19 25 [id number] Ambulatory [facility] HospitalBuild ing:HCA3 [facility] 10/13/2024/10/15/19 25 [id number] Ambulatory [facility] HospitalBuild ing:NSCA [facility] 10/13/2024/10/14/19 25 [id number] Ambulatory [facility] HospitalBuild ing:HTLB [facility] 10/12/2024/10/13/19 25 [id number] Ambulatory [facility] HospitalBuild ing:WOMR [facility] 10/12/2024/10/13/19 [id number] Ambulatory [facility] HospitalBuild ing:WOHE [facility] 10/06/2024/10/07/19 [id number] Ambulatory [facility] HospitalBuild ing:HEMN [facility] 10/05/2024/10/05/19 25 [id number] Ambulatory [facility] HospitalBuild ing:WOL2 [facility] 09/23/2024/09/23/19 25 [id number] JOSE EVANS Ambulatory [facility] HospitalBuild ing:RADT [facility] 09/23/2024/09/23/19 25 [id number] JOSE EVANS Ambulatory [facility] HospitalBuild ing:CA [facility] 09/22/2024/09/22/19 25 [id number] JOSE EVANS Ambulatory [facility] HospitalBuild ing:RADT [facility] 09/22/2024/09/22/19 25 [id number] JOSE EVANS Ambulatory [facility] HospitalBuild ing:RADT [facility] 09/22/2024/09/22/19 25 [id number] JOSE EVANS Ambulatory [facility] HospitalBuild ing:GKCA [facility] 09/21/2024/09/21/19 25 [id number] JOSE EVANS Ambulatory [facility] HospitalBuild ing:RADT [facility] 09/21/2024/09/21/19 25 [id number] JOSE EVANS Ambulatory [facility] HospitalBuild ing:GKCA [facility] 09/20/2024/09/20/19 25 [id number] Ambulatory [facility] HospitalBuild ing:RADT [facility] 09/20/2024/09/20/19 25 [id number] Ambulatory [facility] HospitalBuild ing:GKCA [facility] 09/19/2024/09/19/19 25 [id number] Ambulatory [facility] HospitalBuild ing:RADT [facility] 09/19/2024/09/19/19 [id number] Ambulatory [facility] HospitalBuild ing:CTCA [facility] 09/19/2024/09/19/19 25 [id number] Ambulatory [facility] HospitalBuild ing:MRCA [facility] 09/19/2024/09/19/19 25 [id number] Ambulatory [facility] HospitalBuild ing:RADT [facility] 09/19/2024/09/19/19 25 [id number] Ambulatory [facility] HospitalBuild ing:GKCA [facility] 09/19/2024/09/19/19 25 [id number] JOSE EVANS Ambulatory [facility] HospitalBuild ing:ANTHRoom: [id number]-[id number]: ANTH-06 [facility] 09/08/2024/09/08/19 25 [id number] Ambulatory [facility] HospitalBuild ing:RADT [facility] 09/08/2024/09/08/19 25 [id number] Ambulatory [facility] HospitalBuild ing:NSCA [facility] 09/08/2024/09/08/19 25 [id number] Ambulatory [facility] HospitalBuild ing:HEMN [facility] 09/08/2024/09/08/19 25 [id number] Ambulatory [facility] HospitalBuild ing:NSCA [facility] 09/08/2024/09/08/19 25 [id number] Ambulatory [facility] HospitalBuild ing:HTLB [facility] 09/05/2024/09/05/19 25 [id number] Ambulatory [facility] HospitalBuild ing:NSCA [facility] 08/30/2024/08/31/19 25 [id number] Ambulatory [facility] HospitalBuild ing:HEMN [facility] 08/29/2024/08/29/19 25 [id number] Ambulatory [facility] HospitalBuild ing:WOL2 [facility] 08/22/2024/08/22/19 25 [id number] Ambulatory [facility] HospitalBuild ing:HEMN [facility] 08/22/2024/08/22/19 25 [id number] Ambulatory [facility] HospitalBuild ing:NSCA [facility] 08/22/2024/08/22/19 25 [id number] Ambulatory [facility] HospitalBuild ing:MMRQ [facility] 08/12/2024/08/12/19 25 [id number] Ambulatory [facility] HospitalBuild ing:NSCA [facility] 08/12/2024/08/12/19 25 [id number] Ambulatory [facility] HospitalBuild ing:HEMN [facility] 08/12/2024/08/12/19 25 [id number] Amb[facility] HospitalBuild ing:HTLB [facility] 07/25/2024/07/25/20 24 [id number] [facility] [place] [facility] [facility] HospitalBuild ing:JAYRO [facility] 07/25/2024/07/26/20 24 [id number] [facility] HospitalBuild ing:HEMN [facility] 07/20/2024/07/21/20 24 [id number] [facility] HospitalBuild ing:HEMN [facility] 07/14/2024/07/14/20 24 [id number] [facility] HospitalBuild ing:HEMN [facility] 07/14/2024/07/14/20 24 [id number] [facility] HospitalBuild ing:NSCA [facility] 07/14/2024/07/14/20 24 [id number] [facility] HospitalBuild ing:HTLB [facility] 07/13/2024/07/13/20 24 [id number] [facility] HospitalBuild ing:BMRI [facility] 06/23/2024/06/23/20 24 [id number] [facility] HospitalBuild ing:NSCA [facility] 06/16/2024/06/16/20 24 [id number] [facility] HospitalBuild ing:NSCA [facility] 06/16/2024/06/16/20 24 [id number] [facility] HospitalBuild ing:HEMN [facility] 06/16/2024/06/16/20 24 [id number] [facility] HospitalBuild ing:NSCA [facility] 06/16/2024/06/16/20 24 [id number] [facility] HospitalBuild ing:CCLB [facility] 05/26/2024/05/26/20 24 [id number] [facility] HospitalBuild ing:MMRQ [facility] 05/26/2024/05/26/20 24 [id number] [facility] HospitalBuild ing:PVLB [facility] 05/26/2024/05/26/20 24 [id number] [facility] HospitalBuild ing:JADEN [facility] 05/26/2024/05/26/20 24 [id number] [facility] HospitalBuild ing:HEMN [facility] 05/26/2024/05/26/20 24 [id number] [facility] HospitalBuild ing:NSCA [facility] 05/26/2024/05/26/20 24 [id number] [facility] HospitalBuild ing:HTLB [facility] 05/12/2024/05/12/20 24 [id number] [facility] HospitalBuild ing:HTLB [facility] 05/12/2024/05/12/20 24 [id number] [facility] HospitalBuild ing:HCA3 [facility] 05/12/2024/05/12/20 [id number] [facility] HospitalBuild ing:NSCA [facility] 05/12/2024/05/12/20 [id number] [facility] HospitalBuild ing:HEMN [facility] PAYERS ENCOUNTER [employer] PA[employer]ER [employer]CR[employer]ER [employer] 05/01/2025 Primary Insurance:MMO SUPERMED PPOPolicy Number: [id number] araceli Date:6877-35-12Jwp n Name:Olga Arango EDWARD: [id number] [facility] [place] [place] [address] [facility] 05/01/2025 ANGEL EDWARD: [id number] [facility] [place] [address]Uad: () Primary Insurance:MMOPolic y Number: [id number] araceli Date:8795-29-82Rry n Name:MANAGED CARE ANGEL EDWARD: [id number] [facility] [place] [place] [address] [facility] 04/27/2025 Primary Insurance:MMO SUPERMED PPOPolicy Number: [id number] araceli Date:4327-94-81Eok n Name:Olga Arango EDWARD: [id number] [facility] [place] [address] [facility] 04/25/2025 Primary Insurance:MMO SUPERMED PPOPolicy Number: [id number] araceli Date:1020-91-78Pdv n Name:Olga Arango TAMYB: [id number] [facility] [place] [place] [address] [facility] 04/25/2025 Primary Insurance:MMO SUPERMED PPOPolicy Number: [id number] araceli Date:2871-43-75Mlq n Name:Olga Arango EDWARD: [id number] [facility] [place] [address] [facility] 04/21/2025 Primary Insurance:MMO SUPERMED PPOPolicy Number: [id number] araceli Date:9829-21-27Mvb n Name:Olga MORELOSB: [id number] [place] [address] [facility] 04/20/2025 Primary Insurance:MMO SUPERMED PPOPolicy Number: [id number] araceli Date:5231-14-20Lkd n Name:Olga MORELOSB: [id number] [place] [address] [facility] 04/20/2025 Primary Insurance:MMO SUPERMED PPOPolicy Number: [id number] araceli Date:5766-83-12Tmx n Name:Olga MORELOSB: [id number] [place] [address] [facility] 04/19/2025 Primary Insurance:MMO SUPERMED PPOPolicy Number: [id number] araceli Date:6238-64-61Wyo n Name:Olga MORELOSB: [id number] [place] [address] [facility] 04/18/2025 Primary Insurance:MMO SUPERMED PPOPolicy Number: [id number] araceli Date:5548-01-23Sxh n Name:Olga MORELOSB: [id number] [place] [address] [facility] 04/18/2025 Primary Insurance:MMO SUPERMED PPOPolicy Number: [id number] araecli Date:4844-76-73Wad n Name:Olga MORELOSB: [id number] [place] [address] [facility] 04/14/2025 Primary Insurance:MMO SUPERMED PPOPolicy Number: [id number] araceli Date:1062-22-83Fsp n Name:Olga Arango TAMYB: [id number] [place] [address] [facility] 04/14/2025 Primary Insurance:MMO SUPERMED PPOPolicy Number: [id number] araceli Date:3811-68-06Xag n Name:Olga Arango TAMYB: [id number] [place] [address] [facility] 04/13/2025 Primary Insurance:MMO SUPERMED PPOPolicy Number: [id number] araceli Date:8131-78-31Llm n Name:Olga Arango TAMYB: [id number] [place] [address] [facility] 04/05/2025 Primary Insurance:MMO SUPERMED PPOPolicy Number: [id number] araceli Date:7508-65-30Idh n Name:Olga Arango TAMYB: [id number] [place], [place] [address] [place] [address] 04/05/2025 Primary Insurance:MMO SUPERMED PPOPolicy Number: [id number] araceli Date:7385-23-11Jjq n Name:Olga ANGEL Conchita LEON: [id number] [place] [address] [facility] 04/03/2025 Primary Insurance:MMO SUPERMED PPOPolicy Number: [id number] araceli Date:3956-30-64Pde n Name:Olga BRANCH Conchita LEON: [id number] [place] [address] [facility] 03/24/2025 Primary Insurance:MMO SUPERMED PPOPolicy Number: [id number] araceli Date:3304-87-12Dxc n Name:Olga BRANCH Conchita LEON: [id number] [place] [address] [facility] 03/06/2025 Primary Insurance:MMO SUPERMED PPOPolicy Number: [id number] araceli Date:4869-60-07Uzy n Name:Olga MORELOSB: [id number] [place] [address] [facility] 03/02/2025 Primary Insurance:MMO SUPERMED PPOPolicy Number: [id number] araceli Date:1466-67-71Hke n Name:Olga MORELOSB: [id number] [place] [address] [facility] 02/28/2025 Primary Insurance:MMO SUPERMED PPOPolicy Number: [id number] araceli Date:5743-62-97Lkx n Name:Olga MORELOSB: [id number] [place] [address] [facility] 02/28/2025 Primary Insurance:MMO SUPERMED PPOPolicy Number: [id number] araceli Date:1876-21-51Mnt n Name:Olga MORELOSB: [id number] [place] [address] [facility] 02/08/2025 Primary Insurance:MMO SUPERMED PPOPolicy Number: [id number] araceli Date:9413-86-23Uxs n Name:Olga MORELOSB: [id number] [place] [address] [facility] 01/19/2025 Primary Insurance:MMO SUPERMED PPOPolicy Number: [id number] araceli Date:6491-21-75Zwm n Name:Olga MORELOSB: [id number] [place] [address] [facility] 01/19/2025 Primary Insurance:MMO SUPERMED PPOPolicy Number: [id number] araceli Date:7738-96-04Qmn n Name:Olga MORELOSB: [id number] [place] [address] [facility] 01/17/2025 Primary Insurance:MMO SUPERMED PPOPolicy Number: [id number] araceli Date:3961-65-84Ixy n Name:Olga MORELOSB: [id number] [place] [address] [facility] 01/17/2025 Primary Insurance:MMO SUPERMED PPOPolicy Number: [id number] araceli Date:7142-49-57Fdk n Name:Olga MORELOSB: [id number] [place] [address] [facility] 12/01/2024 Primary Insurance:MMO SUPERMED PPOPolicy Number: [id number] araceli Date:5208-71-29Hpr n Name:Olga MORELOSB: [id number] [place] [address] [facility] 11/29/2024 Primary Insurance:MMO SUPERMED PPOPolicy Number: [id number] araceli Date:0089-87-28Vzh n Name:Olga MORELOSB: [id number] [place] [address] [facility] 11/17/2024 Primary Insurance:MMO SUPERMED PPOPolicy Number: [id number] araceli Date:0959-65-37Cvp n Name:Olga MORELOSB: [id number] [place] [address] [facility] 11/16/2024 Primary Insurance:MMO SUPERMED PPOPolicy Number: [id number] araceli Date:9505-19-89Xyw n Name:Olga MORELOSB: [id number] [place] [address] [facility] 11/16/2024 Primary Insurance:MMO SUPERMED PPOPolicy Number: [id number] araceli Date:4971-30-13Xbr n Name:Olga Arango TAMYB: [id number] [place] [address] [facility] 11/11/2024 Primary Insurance:MMO SUPERMED PPOPolicy Number: [id number] araceli Date:5962-30-63Efp n Name:Olga Arango TAMYB: [id number] [place] [address] [facility] 11/01/2024 Primary Insurance:MMO SUPERMED PPOPolicy Number: [id number] araceli Date:3439-12-19Ybm n Name:Olga Arango TAMYB: [id number] [place] [address] [facility] 10/27/2024 Primary Insurance:MMO SUPERMED PPOPolicy Number: [id number] araceli Date:2853-21-78Let n Name:Olga Arango TAMYB: [id number] [place], [place] [address] [place] [address] 10/21/2024 Primary Insurance:MMO SUPERMED PPOPolicy Number: [id number] araceli Date:3473-49-58Fge n Name:Olga ANGEL Conchita LEON: [id number] [place] [address] [facility] 10/17/2024 Primary Insurance:MMO SUPERMED PPOPolicy Number: [id number] araceli Date:4093-22-69Agw n Name:Olga BRANCH Conchita LEON: [id number] [place] [address] [facility] 10/13/2024 Primary Insurance:MMO SUPERMED PPOPolicy Number: [id number] araceli Date:2708-10-01Pat n Name:Olga BRANCH Conchita LEON: [id number] [place] [address] [facility] 10/13/2024 Primary Insurance:MMO SUPERMED PPOPolicy Number: [id number] araceli Date:9034-63-60Sqe n Name:Olga MORELOSB: [id number] [place] [address] [facility] 10/12/2024 Primary Insurance:MMO SUPERMED PPOPolicy Number: [id number] araceli Date:1263-07-21Zwi n Name:Olga MORELOSB: [id number] [place] [address] [facility] 10/12/2024 Primary Insurance:MMO SUPERMED PPOPolicy Number: [id number] araceli Date:4759-25-61Qww n Name:Olga MORELOSB: [id number] [place] [address] [facility] 10/06/2024 Primary Insurance:MMO SUPERMED PPOPolicy Number: [id number] araceli Date:4437-88-44Yin n Name:Olga MORELOSB: [id number] [place] [address] [facility] 10/05/2024 Primary Insurance:MMO SUPERMED PPOPolicy Number: [id number] araceli Date:6700-13-63Nso n Name:Olga MORELOSB: [id number] [place] [address] [facility] 09/23/2024 Primary Insurance:MMO SUPERMED PPOPolicy Number: [id number] araceli Date:4647-11-41Nba n Name:Olga MORELOSB: [id number] [place] [address] [facility] 09/23/2024 Primary Insurance:MMO SUPERMED PPOPolicy Number: [id number] araceli Date:7730-43-97Vxg n Name:Olga MORELOSB: [id number] [place] [address] [facility] 09/22/2024 Primary Insurance:MMO SUPERMED PPOPolicy Number: [id number] araceli Date:1742-75-17Azq n Name:Olga MORELOSB: [id number] [place] [address] [facility] 09/22/2024 Primary Insurance:MMO SUPERMED PPOPolicy Number: [id number] araclei Date:5739-05-00Xko n Name:Olga MORELOSB: [id number] [place] [address] [facility] 09/22/2024 Primary Insurance:MMO SUPERMED PPOPolicy Number: [id number] araceli Date:4081-56-31Ciq n Name:Olga MORELOSB: [id number] [place] [address] [facility] 09/21/2024 Primary Insurance:MMO SUPERMED PPOPolicy Number: [id number] araceli Date:1455-16-91Wbd n Name:Olga MORELOSB: [id number] [place] [address] [facility] 09/21/2024 Primary Insurance:MMO SUPERMED PPOPolicy Number: [id number] araceli Date:9303-38-49Dwg n Name:Olga MORELOSB: [id number] [place] [address] [facility] 09/20/2024 Primary Insurance:MMO SUPERMED PPOPolicy Number: [id number] araceli Date:1832-76-93Urw n Name:Olga MORELOSB: [id number] [place] [address] [facility] 09/20/2024 Primary Insurance:MMO SUPERMED PPOPolicy Number: [id number] araceli Date:0450-59-62Nrx n Name:Olga Arango TAMYB: [id number] [place] [address] [facility] 09/19/2024 Primary Insurance:MMO SUPERMED PPOPolicy Number: [id number] araceli Date:0457-07-78Iji n Name:Olga Arango TAMYB: [id number] [place] [address] [facility] 09/19/2024 Primary Insurance:MMO SUPERMED PPOPolicy Number: [id number] araceli Date:2482-92-31Ewc n Name:Olga Arango TAMYB: [id number] [place] [address] [facility] 09/19/2024 Primary Insurance:MMO SUPERMED PPOPolicy Number: [id number] araceli Date:1539-23-20Uao n Name:Olga Arango TAMYB: [id number] [place], [place] [address] [place] [address] 09/19/2024 Primary Insurance:MMO SUPERMED PPOPolicy Number: [id number] araceli Date:0331-85-71Pmv n Name:Olga ANGEL Conchita LEON: [id number] [place] [address] [facility] 09/19/2024 Primary Insurance:MMO SUPERMED PPOPolicy Number: [id number] araceli Date:2081-74-39Tyc n Name:Olga BRANCH Conchita LEON: [id number] [place] [address] [facility] 09/19/2024 Primary Insurance:MMO SUPERMED PPOPolicy Number: [id number] araceli Date:9807-66-95Wsi n Name:Olga BRANCH Conchita LEON: [id number] [place] [address] [facility] 09/08/2024 Primary Insurance:MMO SUPERMED PPOPolicy Number: [id number] araceli Date:8566-34-63Ohx n Name:Olga MORELOSB: [id number] [place] [address] [facility] 09/08/2024 Primary Insurance:MMO SUPERMED PPOPolicy Number: [id number] araceli Date:2037-76-90Qza n Name:Olga MORELOSB: [id number] [place] [address] [facility] 09/08/2024 Primary Insurance:MMO SUPERMED PPOPolicy Number: [id number] araceli Date:3325-14-56Jni n Name:Olga MORELOSB: [id number] [place] [address] [facility] 09/08/2024 Primary Insurance:MMO SUPERMED PPOPolicy Number: [id number] araceli Date:3706-12-96Hyo n Name:Olga MORELOSB: [id number] [place] [address] [facility] 09/08/2024 Primary Insurance:MMO SUPERMED PPOPolicy Number: [id number] araceli Date:3579-10-95Ixi n Name:Olga MORELOSB: [id number] [place] [address] [facility] 09/05/2024 Primary Insurance:MMO SUPERMED PPOPolicy Number: [id number] araceli Date:9864-13-25Lhp n Name:Olga MORELOSB: [id number] [place] [address] [facility] 08/30/2024 Primary Insurance:MMO SUPERMED PPOPolicy Number: [id number] araceli Date:8967-80-85Rtk n Name:Olga MORELOSB: [id number] [place] [address] [facility] 08/29/2024 Primary Insurance:MMO SUPERMED PPOPolicy Number: [id number] araceli Date:8515-70-79Xei n Name:Olga MORELOSB: [id number] [place] [address] [facility] 08/22/2024 Primary Insurance:MMO SUPERMED PPOPolicy Number: [id number] araceli Date:0944-51-40Kdl n Name:Olga MORELOSB: [id number] [place] [address] [facility] 08/22/2024 Primary Insurance:MMO SUPERMED PPOPolicy Number: [id number] araceli Date:9077-64-26Efe n Name:Olga MORELOSB: [id number] [place] [address] [facility] 08/22/2024 Primary Insurance:MMO SUPERMED PPOPolicy Number: [id number] araceli Date:0203-54-28Rhy n Name:Olga MORELOSB: [id number] [place] [address] [facility] 08/12/2024 Primary Insurance:MMO SUPERMED PPOPolicy Number: [id number] araceli Date:5308-47-43Sja n Name:Olga MORELOSB: [id number] [place] [address] [facility] 08/12/2024 Primary Insurance:MMO SUPERMED PPOPolicy Number: [id number] araceli Date:9413-56-05Sjj n Name:Olga MORELOSB: [id number] [place] [address] [facility] 08/12/2024 Primary Insurance:MMO SUPERMED PPOPolicy Number: [id number] araceli Date:3600-90-85Wot n Name:Olga Arango TAMYB: [id number] [place] [address] [facility] 07/25/2024 Primary Insurance:MMO SUPERMED PPOPolicy Number: [id number] araceli Date:0743-86-39Gmw n Name:Olga Arango TAMYB: [id number] [place] [address] [facility] 07/25/2024 Primary Insurance:MMO SUPERMED PPOPolicy Number: [id number] araceli Date:6009-70-06Cig n Name:Olga Arango TAMYB: [id number] [facility] [place] [address] [facility] 07/20/2024 Primary Insurance:MMO SUPERMED PPOPolicy Number: [id number] araceli Date:2370-31-26Nlk n Name:Olga BRANCH Conchita MORELOSB: [id number] [place] [facility] [address] [facility] 07/14/2024 Primary Insurance:MMO SUPERMED PPOPolicy Number: [id number] araceli Date:0877-13-65Nmy n Name:Olga ANGEL Conchita LEON: [id number] [place] [address] [facility] 07/14/2024 Primary Insurance:MMO SUPERMED PPOPolicy Number: [id number] araceli Date:7620-88-80Hmj n Name:Olga BRANCH Conchita LEON: [id number] [place] [facility] [place] [address] [facility] 07/14/2024 Primary Insurance:MMO SUPERMED PPOPolicy Number: [id number] araceli Date:7580-64-09Qyu n Name:Olga ANGEL Conchita LEON: [id number] [place] [address] [facility] 07/13/2024 Primary Insurance:MMO SUPERMED PPOPolicy Number: [id number] araceli Date:6244-32-13Qfz n Name:Olga ANGEL LEON: [id number] [place] [address] [facility] 06/23/2024 Primary Insurance:MMO SUPERMED PPOPolicy Number: [id number] araceli Date:0832-98-32Ydz n Name:Olga KEATINGB: [id number] [place] [address] [facility] 06/16/2024 Primary Insurance:MMO SUPERMED PPOPolicy Number: [id number] araceli Date:6214-43-86Aqo n Name:Olga Arango TAMYB: [id number] [place] [address] [facility] 06/16/2024 Primary Insurance:MMO SUPERMED PPOPolicy Number: [id number] araceli Date:1771-55-93Oes n Name:Olga Arango TAMYB: [id number] [place] [address] [facility] 06/16/2024 Primary Insurance:MMO SUPERMED PPOPolicy Number: [id number] araceli Date:7387-57-68Uev n Name:Olga KEATINGB: [id number] [place] [address] [facility] 06/16/2024 Primary Insurance:MMO SUPERMED PPOPolicy Number: [id number] araceli Date:8928-54-07Gfx n Name:Olga KEATINGB: [id number] [place] [address] [facility] 05/26/2024 Primary Insurance:MMO SUPERMED PPOPolicy Number: [id number] araceli Date:9646-32-95Wpr n Name:Olga KEATINGB: [id number] [place] [address] [facility] 05/26/2024 Primary Insurance:MMO SUPERMED PPOPolicy Number: [id number] araceli Date:5137-22-90Ske n Name:Olga KEATINGB: [id number] [place] [address] [facility] 05/26/2024 Primary Insurance:MMO SUPERMED PPOPolicy Number: [id number] araceli Date:3653-71-78Tfs n Name:Olga KEATINGB: [id number] [place] [address] [facility] 05/26/2024 Primary Insurance:MMO SUPERMED PPOPolicy Number: [id number] araceli Date:5188-47-22Bxl n Name:Olga KEATINGB: [id number] [place] [address] [facility] 05/26/2024 Primary Insurance:MMO SUPERMED PPOPolicy Number: [id number] araceli Date:6459-96-75Ggq n Name:Olga KEATINGB: [id number] [facility] [place] [address] [facility] 05/26/2024 Primary Insurance:MMO SUPERMED PPOPolicy Number: [id number] araceli Date:8918-97-66Bgo n Name:Olga KEATINGB: [id number] [facility] [place] [address] [facility] 05/12/2024 Primary Insurance:MMO SUPERMED PPOPolicy Number: [id number] araceli Date:3694-38-11Nlc n Name:Olga KEATINGB: [id number] [place] [address] [facility] 05/12/2024 Primary Insurance:MMO SUPERMED PPOPolicy Number: [id number] araceli Date:4206-23-94Qce n Name:Olga KEATINGB: [id number] [place] [address] [facility] 05/12/2024 Primary Insurance:MMO SUPERMED PPOPolicy Number: [id number] araceli Date:1018-45-02Tcw n Name:Olga LEON: [id number] [facility] [place] [address] [facility] 05/12/2024 Primary Insurance:MMO SUPERMED PPOPolicy Number: [id number] araceli Date:5262-89-44Ymk n Name:Olga LEON: [id number] [place] [address] [facility]
[2025-05-06 16:22] VITALS: BP 117/77; PULSE 53; RESP 16; TEMP 36.3; O2SAT 98; BMI 29.3
--- NOTE | 2025-05-06 21:26 | HP.PCM_ITS ---
HPI - General General Date of Admission: 05/06/25 Date of Service: 05/08/25 Chief Complaint: Here for rehabilitation. HPI Narrative SARINA KEATING, is a 54 Male who presents with followin05/01/2025 [facility] ED stroke alert. Right facial droop, right weakness, expressive aphasia. Glioblastoma Multiforme treated with chemotherapy, surgery at [facility]. Outside window for TNF. CTA head LVO distal M1 segment left MCA. NIHSS 9. Transfer to [facility] for thrombectomy. 05/01/2025 Admit to [facility]. NIHSS 7. PT/OT/ST. Emergent thrombectomy LVO M1 Left MCA. Neurocheck, statin, MRI brain, TTE for stroke. 05/03/2025 Resting in bed, right hemiplegia, right facial droop. Expressive aphasia. Aspirin 81mg, Atorvastatin 40mg qhs for stroke. Thrombectomy unsuccessful. Lacosamine changed to Keppra 1gm po bid 2/2 bradycardia. PT/OT/ST, continuous EEG. MRI brain shows mulitple strokes. 05/04/2025 Losartan 12.5mg daily for HFrEF. Decadron 10mg daily for cerebral edema. Platelets improved to 90. MBS soft, bite sized, thin liquids. 05/05/2025 No acute events overnight. PT/OT recommended rehab. 05/06/2025 Admit to TCU with debility, here for rehabilitation, strengthening, prior to discharge home with family. [facility] Medical History (Updated 05/06/25 @ 21:[address] Keaton Clark MD) Anxiety Somnolence Insomnia Seizure disorder Thrombocytopenia Occlusion of left middle cerebral artery Glioblastoma multiforme Stroke Debility Brain cancer Home Medications ?Medication ?Instructions ?Recorded ?Last Taken ?Type lacosamide 150 mg tablet 150 mg PO BID 03/23/25 Unkno wn History lomustine 100 mg capsule PO 03/23/25 Unknown History (Gleostine) trazodone 50 mg tablet 50 mg PO QHS 03/23/25 Unknow n History valacyclovir 500 mg tablet 500 mg PO DAILY Antiviral 0 03/23/25 05/06/25 08:35 History atovaquone 750 mg/5 mL oral 1,500 mg PO DAILY Antimicr obial 05/01/25 05/06/25 08:35 History suspension modafinil 100 mg tablet 100 mg PO BID PRN Excessive 05/01/25 Unknown History sleepiness acetaminophen 325 mg tablet 650 mg PO Q4H PRN pain Unknown History aspirin 81 mg tablet 81 mg PO DAILY Heart 5 05/06/25 08:35 History atorvastatin 40 mg tablet (Lipitor) 40 mg PO QHS Isabela sterol 05/06/25 05/05/25 20:25 History dexamethasone 2 mg tablet 4 mg PO DAILY Check with joann carine 05/06/25 Unknown History doctor dexamethasone 6 mg tablet 10 mg PO DAILY check with pr imary 05/06/25 05/06/25 08:35 History doctor levetiracetam 1,000 mg tablet 1,000 mg PO Q12H Seizure s 05/06/25 05/06/25 08:35 History (Marco) losartan 25 mg tablet (aKri) 12.5 mg PO DAILY BP 05/06/25 08:35 History
--- NOTE | 2025-05-06 21:26 | PCM.HP.STD ---
HPI - General General Date of Admission: 05/06/25 Date of Service: 05/08/25 Chief Complaint: Here for rehabilitation. HPI Narrative SARINA KEATING, is a 54 Male who presents with followin05/01/2025 [facility] ED stroke alert. Right facial droop, right weakness, expressive aphasia. Glioblastoma Multiforme treated with chemotherapy, surgery at [facility]. Outside window for TNF. CTA head LVO distal M1 segment left MCA. NIHSS 9. Transfer to [facility] for thrombectomy. 05/01/2025 Admit to [facility]. NIHSS 7. PT/OT/ST. Emergent thrombectomy LVO M1 Left MCA. Neurocheck, statin, MRI brain, TTE for stroke. 05/03/2025 Resting in bed, right hemiplegia, right facial droop. Expressive aphasia. Aspirin 81mg, Atorvastatin 40mg qhs for stroke. Thrombectomy unsuccessful. Lacosamine changed to Keppra 1gm po bid 2/2 bradycardia. PT/OT/ST, continuous EEG. MRI brain shows mulitple strokes. 05/04/2025 Losartan 12.5mg daily for HFrEF. Decadron 10mg daily for cerebral edema. Platelets improved to 90. MBS soft, bite sized, thin liquids. 05/05/2025 No acute events overnight. PT/OT recommended rehab. 05/06/2025 Admit to TCU with debility, here for rehabilitation, strengthening, prior to discharge home with family. [facility] Medical History (Updated 05/06/25 @ 21:[address] Keaton Clark MD) Anxiety Somnolence Insomnia Seizure disorder Thrombocytopenia Occlusion of left middle cerebral artery Glioblastoma multiforme Stroke Debility Brain cancer Home Medications ?Medication ?Instructions ?Recorded ?Last Taken ?Type lacosamide 150 mg tablet 150 mg PO BID 03/23/25 Unknown History lomustine 100 mg capsule PO 03/23/25 Unknown History (Gleostine) trazodone 50 mg tablet 50 mg PO QHS 03/23/25 Unknown History valacyclovir 500 mg tablet 500 mg PO DAILY Antiviral 03/23/25 05/06/25 08:35 History atovaquone 750 mg/5 mL oral 1,500 mg PO DAILY Antimicrobial 05/01/25 05/06/25 08:35 History suspension modafinil 100 mg tablet 100 mg PO BID PRN Excessive 05/01/25 Unknown History sleepiness acetaminophen 325 mg tablet 650 mg PO Q4H PRN pain 05/06/25 Unknown History aspirin 81 mg tablet 81 mg PO DAILY Heart 05/06/25 05/06/25 08:35 History atorvastatin 40 mg tablet (Lipitor) 40 mg PO QHS Cholesterol 05/06/25 05/05/25 20:25 History dexamethasone 2 mg tablet 4 mg PO DAILY Check with primary 05/06/25 Unknown History doctor dexamethasone 6 mg tablet 10 mg PO DAILY check with primary 05/06/25 05/06/25 08:35 History doctor levetiracetam 1,000 mg tablet 1,000 mg PO Q12H Seizures 05/06/25 05/06/25 08:35 History (Keppra) losartan 25 mg tablet (Cozaar) 12.5 mg PO DAILY BP 05/06/25 05/06/25 08:35 History Allergy/AdvReac Type Severity Reaction Status Date / Time No Known Allergies Allergy Verified 03/23/25 11:11 Family History (Updated 05/06/25 @ 21:[address] Keaton Clark MD) Father Diabetes CAD (coronary artery disease) CVA (cerebral vascular accident) Mother Breast cancer Surgical History (Updated 05/06/25 @ 21:[address] Keaton Clark MD) History of craniectomy History of knee surgery History of esophagogastroduodenoscopy History of colonoscopy History of appendectomy History of brain surgery Social History (Updated 05/06/25 @ 21:[address] Keaton Clark MD) household members: family housing: house current occupational status: disabled Smoking Status: Former smoker alcohol intake: never substance use type: does not use ROS Constitutional Constitutional: Reports weakness; Denies chills, fever(s) or weight gain ENT HEENT: Denies headache(s), nasal congestion or nasal discharge Cardiovascular Cardiovascular: Denies chest pain or palpitations Respiratory/Chest Respiratory/Chest: Denies cough, excessive phlegm production or shortness of breath with exertion Gastrointestinal Gastrointestinal: Denies abdominal pain, nausea or vomiting Genitourinary Genitourinary: Denies dysuria Musculoskeletal Musculoskeletal: Denies joint pain or joint swelling Integumentary Integumentary: Denies rash or wounds Neurologic Neurologic: Denies focal weakness, numbness or tingling Psychiatric Psychiatric: Denies anxiety, auditory hallucinations, depression, homicidal ideation or suicidal ideation Vital Signs Vital Signs Vital Signs: 05/06/25 16:22 05/06/25 17:04 Temperature 97.4 F L Temperature Source Temporal Pulse Rate 53 L Pulse Rhythm Regular Pulse Strength Normal (2+) Respiratory Rate 16 Respiratory Effort Normal Non-Labored Respiratory Depth Normal Respiratory Pattern Normal Blood Pressure 117/77 Blood Pressure Mean 90 Blood Pressure Source Monitor Blood Pressure Position Semi-Fowlers Blood Pressure Location Left Arm Pulse Ox 98 Oxygen Delivery Method Room Air Room Air Weight Weight: 90.265 kg Body Mass Index (BMI) 29.3 Physical Exam Const alert General Appearance: cooperative HEENT normocephalic Eyes PERRL and EOMs intact bilaterally Neck supple, no JVD and no carotid bruits Resp normal respiratory effort, normal air movement and clear to auscultation bilaterally Cardio regular rate and regular rhythm GI normal to inspection, nondistended, normoactive bowel sounds, non-tender and non-distended Extremity normal capillary refill General Extremity: Negative for edema Skin no rashes or lesions noted General Skin Exam: no breakdown Neuro Neuro Narrative: Right hemiplegia. Speech: speech abnormal Details: Positive for other (Expressive aphasia.) Psych affect normal Appearance: appropriate Results Lab / Micro Data 05/07/25 06:15 05/07/25 06:15 Assessment & Plan Assessment/Plan (1) Debility: (2) Stroke: (3) Glioblastoma multiforme: (4) Occlusion of left middle cerebral artery: (5) Thrombocytopenia: (6) Seizure disorder: (7) Insomnia: (8) Somnolence: (9) Anxiety: PLAN: Plan 54 year old male with below past medical history of glioblastoma multiforme hospitalized for left mca stroke with lvo, unsuccessful thrombectomy, admitted to TCU with debility, here for rehabilitation, strengthening, prior to discharge home with family. Debility - PT/OT. Cognition - ST. Pain - Tylenol 1000mg q6 prn pain (1-10). Bowel - senna/colace 1 tablet bid, Magnesium citrate 300mL daily prn. Adult immunization - Administer pneumonia vaccine, covid vaccine, flu vaccine as appropriate. DVT prophylaxis - Lovenox 40mg sc daily. Herpes prophylaxis - Acyclovir 400mg bid. Stroke - Aspirin 81mg daily. Hyperlipidemia - Atorvastatin 40mg qhs. PCP prophylaxis - Atovaquone 1500mg daily. Glioblastoma Multiforme - Dexamethasone 10mg daily. Seizure disorder - Keppra 1000mg q12. HFrEF - Losartan 12.5mg daily. Narcolepsy - Modafinil 100mg daily, 100mg 1400 daily prn.
--- NOTE | 2025-05-07 00:36 | NURSING ---
Patient tried to get up on own, had legs out of bed, staff able to assist patient with putting legs back into bed and reposition, patient assisted with urinal, Dr. Clark updated via written communication on lack of safety awareness and attempt to get out of bed on own,
[2025-05-07 06:27] LABS: Hematocrit 35.1 % (40-54); Hemoglobin 12.3 g/dL (13.0-16.5); Immature Granulocytes Count 0.140 X10^3/uL (0.0-0.0); Mean Corp Hgb Conc 35.0 g/dL (32-36); Mean Corpuscular Volume 100.0 fL (80-94); Mean Platelet Vol. 11.0 fl (6.2-12.0); NRBC Flagged by Analyzer 0.3 % (0-5); POSITIVE COUNT YES; Platelet Count 75 K/mm3 (150-450); RBC Distribution Width CV 16.1 % (11.6-14.6); RBC Distribution Width SD 57.6 fl (35.1-43.9); Red Blood Count 3.51 M/mm3 (4.6-6.2); White Blood Count 6.0 K/mm3 (4.4-11.0)
[2025-05-07 07:09] LABS: Anion Gap 10 (5-15); BUN 31 mg/dL (4-19); BUN/Creat Ratio 32.5 RATIO (10-20); Calcium,Total 8.3 mg/dL (7.6-11.0); Carbon Dioxide 22.3 mmol/L (21.0-32.0); Chloride 107 mmol/L (98-108); Estimated Creatinine Clearance 96.44 ml/min (50-250); Glucose 91 mg/dL (70-99); Potassium 4.2 mmol/L (3.3-5.1)
--- NOTE | 2025-05-07 07:54 | PCM.PN.DRR ---
Documented by User: Nito Lee 05/07/25 08:47 TCU RX Drug Regimen Review Subjective/Objective Subjective/Objective Subjective: TCU admission note. 54 year old male with below past medical history of glioblastoma multiforme hospitalized for left mca stroke with lvo, unsuccessful thrombectomy, admitted to TCU with debility, here for rehabilitation, strengthening, prior to discharge home with family. Objective: Allergies No Known Allergies Allergy (Verified 03/23/25 11:11) Current Medications Generic Name Dose Route Start Last Admin Trade Name Freq PRN Reason Stop Dose Admin Acetaminophen 1,000 mg 05/06/25 21:54 Acetaminophen 500 Mg Tablet PO Q6H PRN PRN Pain Score 1-10 Acyclovir 400 mg 05/07/25 10:00 Acyclovir 200 Mg Capsule PO BID [facility] Aspirin 81 mg 05/07/25 08:00 Aspirin E.C. 81 Mg Tablet PO BREAKFAST [facility] Atorvastatin Calcium 40 mg 05/06/25 22:00 05/06/25 20:19 Atorvastatin Calcium 40 Mg Tablet PO 40 mg QHS RICK Administration Atovaquone 1,500 mg 05/07/25 10:00 Atovaquone 750 Mg/5 Ml Oral.Susp PO DAILY [facility] Dexamethasone 10 mg 05/07/25 08:00 Dexamethasone 4 Mg Tablet PO DAILYCM [facility] Enoxaparin Sodium 40 mg 05/07/25 06:00 05/07/25 06:04 Enoxaparin 40 Mg/0.4 Ml Syringe SC 40 mg DAILY@0600 RICK Administration Levetiracetam 1,000 mg 05/06/25 22:00 05/06/25 20:19 Levetiracetam 1,000 Mg Tablet PO 1,000 mg Q12 RICK Administration Losartan Potassium 12.5 mg 05/07/25 10:00 Losartan Potassium 25 Mg Tablet PO DAILY [facility] Protocol Magnesium Citrate 300 ml 05/06/25 21:53 Magnesium Citrate 300 Ml PO DAILY PRN Constipation Modafinil 100 mg 05/07/25 08:00 Modafinil 200 Mg Tablet PO DAILY@0800 RICK Modafinil 100 mg 05/07/25 14:00 Modafinil 200 Mg Tablet PO DAILY@1400 PRN EXCESSIVE SLEEPINESS Senna/Docusate Sodium 1 tablet 05/06/25 22:00 05/06/25 22:42 Senna/Docusate Sodium 1 Tablet PO Not Given BID RICK Sodium Chloride 10 - 40 ml 05/06/25 16:33 0.9% Saline Lock 10 Ml Syringe IV UD PRN Port-a-Cath (VAD)/R Port Flush Sodium Chloride 10 - 40 ml 05/06/25 16:33 0.9 % Nacl (Sterile) Posiflush 10 Ml IV UD PRN Port access or dressing change Tuberculin PPD 0.1 ml 05/14/25 10:00 Tuberculin,Purif.Prot.Deriv. 50 Tu/Ml Vial ID 05/14/25 10:01 X1 ONE Tuberculin PPD 0.1 ml 05/07/25 10:00 Tuberculin,Purif.Prot.Deriv. 50 Tu/Ml Vial ID 05/07/25 10:01 X1 ONE Problem List Anxiety (Acute) Somnolence (Acute) Insomnia (Acute) Seizure disorder (Acute) Thrombocytopenia (Acute) Occlusion of left middle cerebral artery (Acute) Glioblastoma multiforme (Acute) Stroke (Acute) Debility (Acute) Vital Signs Temp Pulse Resp BP Pulse Ox O2 Del Method 97.4 F L 53 L 16 117/77 98 Room Air 05/06/25 16:22 05/06/25 16:22 05/06/25 16:22 05/06/25 16:22 05/06/25 16:22 05/06/25 17:04 Oxygen Delivery Method Room Air Weight: 90.265 kg Body Mass Index (BMI) 29.3 Sodium 139 mmol/L (133-145) 05/07/25 06:15 Potassium 4.2 mmol/L (3.3-5.1) 05/07/25 06:15 Chloride 107 mmol/L (98-108) 05/07/25 06:15 Carbon Dioxide 22.3 mmol/L (21.0-32.0) 05/07/25 06:15 Anion Gap 10 (5-15) 05/07/25 06:15 BUN 31 mg/dL (4-19) H 05/07/25 06:15 Creatinine 0.95 mg/dL (0.70-1.20) 05/07/25 06:15 Est GFR (MDRD) Non-Af 93 (>60) 05/07/25 06:15 BUN/Creatinine Ratio 32.5 RATIO (10-20) H 05/07/25 06:15 Glucose 91 mg/dL (70-99) 05/07/25 06:15 Assessment/Plan: 1. Pain: acetaminophen 1000 mg Po Q6H PRN pain. The patient has not required any PRN doses of acetaminophen so far this admission. Please continue to monitor pain levels, PRN medication usage, and LFTs (AST/ALT = 14/10 U/L). 2. Bowel: senna/docusate 1 tablet PO BID, magnesium citrate 300 mL PO daily PRN constipation. The patient has not required any PRN doses of magnesium citrate so far this admission and the patient's last documented bowel movement was on 05/06/25. Please continue to monitor for PRN medication usage, bowel movements, constipation and diarrhea. 3. DVT prophylaxis: enoxaparin 40 mg SC daily. Please continue to monitor for s/s of a DVT such as pain/erythema/swelling in an extremity as well as for s/s of bleeding/excessive bruising, hemoglobin levels (Hgb =12.3 g/dL on 05/07/25), platelet counts (Plt = 75 K/mm3 on ), and renal function (serum creatinine = 0.95 mg/dL with creatinine clearance ~ 96 mL/min on 05/07/25). 4. Herpes prophylaxis: acyclovir 400 mg PO BID. Please continue to monitor renal function (serum creatinine = 0.95 mg/dL with creatinine clearance ~ 96 mL/min on 05/07/25), and GI distress as well as for s/s of a herpes flare. 5. Stroke: aspirin 81 mg PO daily with breakfast. Please continue to monitor for s/s of stroke, for s/s of bleeding, and platelet counts (Plt = 75 K/mm3 on ). 6. Hyperlipidemia: atorvastatin 40 mg PO QHS. Please continue to monitor lipid levels (no recent lipid levels documented), LFTs (AST/ALT = 14/10 U/L), and for myalgias. 7. HFrEF: losartan 12.5 mg PO daily. Please continue to monitor for s/s of a heart failure exacerbation including shortness of breath, chest pain and JVD as well as blood pressures (recent reading = 117/77 mmHg), renal function (serum creatinine = 0.95 mg/dL with creatinine clearance ~ 96 mL/min on 05/07/25), potassium levels (K = 4.2 mmol/L on 05/07/25), and for s/s of orthostasis. 8. Seizure disorder: levetiracetam 1000 mg PO Q12. Please continue to monitor for s/s of seizures, for agitation, and renal function (serum creatinine = 0.95 mg/dL with creatinine clearance ~ 96 mL/min on 05/07/25). 9. PCP prophylaxis: atovaquone 1500 mg PO daily. Please continue to monitor for s/s of a PCP infection including fever (T = 97.4F on 05/06/25), white blood cell counts (WBC = 6.0 K/mm3 on 05/07/25), chills, rash, diarrhea, nausea and abdominal pain. 10. Glioblastoma: dexamethasone 10 mg PO daily. Please continue to monitor blood pressures (recent reading = 117/77 mmHg), for GI distress, for agitation, and blood glucose readings (BG = 91 mg/dL on 05/07/25). 11. Narcolepsy: modafinil 100 mg PO daily, modafinil 100 mg daily @ 1400 PRN excessive sleepiness. The patient has not required any PRN doses of modafinil so far this admission. Please continue to monitor for excessive sleepiness, PRN medication usage, insomnia, dizziness, headache, and restlessness. Assessment/Plan for indications treated with psychotropic medications: NA Medical chart and medication regimen reviewed. The following medication irregularities or issues were identified: NA Date Date of Note: 05/07/25 Documented by User: Dr. Keaton Clark MD 05/07/25 12:46 TCU RX Drug Regimen Review Provider Comments Provider responsibility Provider Comments to Recommendations by Pharmacy Agree
[2025-05-07 09:27] VITALS: BP 110/80; PULSE 62; RESP 17; TEMP 36.7; O2SAT 97
[2025-05-07] MEDS: Aspirin E.C. 81 MG Tablet PO (09:31)
[2025-05-07] MEDS: ATOVAQUONE 750 MG/5 ML ORAL.SUSP 1500 MG PO (09:33)
[2025-05-07] MEDS: Tuberculin,Purif.prot.deriv. 50 TU/ML Vial 0.1 ML ID (11:41)
[2025-05-07] MEDS: Senna/Docusate Sodium 1 Tablet PO (20:24)
[2025-05-07] MEDS: 0.9% Saline Lock 10 ML Syringe IV (20:55)
[2025-05-08 08:40] VITALS: BP 110/72; PULSE 59; RESP 18; TEMP 36.4; O2SAT 95
[2025-05-08] MEDS: Aspirin E.C. 81 MG Tablet PO (09:28)
[2025-05-08] MEDS: ATOVAQUONE 750 MG/5 ML ORAL.SUSP 1500 MG PO (09:36)
--- NOTE | 2025-05-08 11:50 | NURSING ---
Chief Passenger Ship Steward/Stewardess Note; Activity Asset: Serenity Wheeler has Dysphasia and is able to answer yes no question and small word combination. He said not to activities, geothermal operations manager, therapy dog and word puzzles. He will watch tv and read the daily chronical. Staff stated to him they will remind him of activities weekly and he has the right to say no and do independent activities in his room. His family will come in to visits.
--- NOTE | 2025-05-08 13:51 | NURSING ---
Called and spoke with Heike at Dr. Fraire's office. Discussed how resident functioning per PT notes. Let her know it makes most sense to set up virtual visit at this time. Heike reports resident had been taking care of appts all on own until recent hospitalization. She will schedule virtual visit for ThursdayMay 10 at 10:00. She anticipates it'll need more than 30minutes as the family will probably have questions. She will make sure mother is able to do appt and can access My Chart.
[2025-05-08] MEDS: 0.9% Saline Lock 10 ML Syringe IV (21:03)
[2025-05-09 07:21] LABS: Hematocrit 33.3 % (40-54); Hemoglobin 11.8 g/dL (13.0-16.5); Immature Granulocytes Count 0.240 X10^3/uL (0.0-0.0); Mean Corp Hgb Conc 35.4 g/dL (32-36); Mean Corpuscular Volume 99.7 fL (80-94); Mean Platelet Vol. 11.2 fl (6.2-12.0); NRBC Flagged by Analyzer 1.0 % (0-5); POSITIVE COUNT YES; Platelet Count 74 K/mm3 (150-450); RBC Distribution Width CV 16.1 % (11.6-14.6); RBC Distribution Width SD 57.1 fl (35.1-43.9); Red Blood Count 3.34 M/mm3 (4.6-6.2); White Blood Count 6.0 K/mm3 (4.4-11.0)
[2025-05-09 07:45] LABS: Anion Gap 11 (5-15); BUN 27 mg/dL (4-19); BUN/Creat Ratio 30.6 RATIO (10-20); Calcium,Total 8.1 mg/dL (7.6-11.0); Carbon Dioxide 20.6 mmol/L (21.0-32.0); Chloride 106 mmol/L (98-108); Estimated Creatinine Clearance 102.94 ml/min (50-250); Glucose 101 mg/dL (70-99); Potassium 4.1 mmol/L (3.3-5.1)
[2025-05-09 09:07] VITALS: BP 111/76; PULSE 67; RESP 16; TEMP 36.4; O2SAT 98
--- NOTE | 2025-05-09 09:10 | CASEMGMT ---
Social Work SW left VMs for mother at both phone numbers to complete initial assessment. Suzanne Hayes ORTHOPAEDIC DOCTOR MATERIAL REQUISITIONER
[2025-05-09] MEDS: Aspirin E.C. 81 MG Tablet PO (09:17)
[2025-05-09] MEDS: ATOVAQUONE 750 MG/5 ML ORAL.SUSP 1500 MG PO (09:18)
[2025-05-09] MEDS: 0.9% Saline Lock 10 ML Syringe IV (14:35)
--- NOTE | 2025-05-09 14:40 | NURSING ---
pt had small med hard stool on bedpan, pt repositioned on LT side. heels elevated on pillow. call light attached to shirt. rt arm elevated on pillow. speech in to do therapy at this time
--- NOTE | 2025-05-09 14:49 | CASEMGMT ---
Social Work SW met with patient to complete initial assessment. Introduced self and role. Verified/updated contacts. Patient clearly confirmed code status as DNR-CC. Pt denied wanting to complete advance directives. SW will await conversation with mother to obtain additional information and explain insurance. SW will continue to follow for DC planning. Suzanne Hayes DIRECTOR OF CONSERVATION FLOOR REFINISHER
--- NOTE | 2025-05-09 16:17 | NURSING ---
Josephine from Dr Fraire (neuro) called & feels that they want to hold off on making a virtual appt at this time d/t pt aphasia and it causing some frustration over phone. Josephine to call back next week regarding a virtual appt if pt doing better and able to communicate. updated pt at this time of plan.
[2025-05-09 16:48] VITALS: BMI 29.7
--- NOTE | 2025-05-09 18:34 | NURSING ---
pt daughter here & verified that pt does want flu vaccine. Also updated her on Dr rFaire call today and plan for next week if pt communicating better.
[2025-05-09 20:25] VITALS: PULSE 75; O2SAT 98
[2025-05-09] MEDS: Senna/Docusate Sodium 1 Tablet PO (20:50)
[2025-05-10 00:29] VITALS: PULSE 55; O2SAT 98
--- NOTE | 2025-05-10 06:43 | NURSING ---
Written communication left for Dr. Clark regarding de-accessing port to R chest.
[2025-05-10 08:44] VITALS: BP 107/72; PULSE 71; RESP 18; TEMP 36.5; O2SAT 97
[2025-05-10] MEDS: Aspirin E.C. 81 MG Tablet PO (08:46)
[2025-05-10] MEDS: ATOVAQUONE 750 MG/5 ML ORAL.SUSP 1500 MG PO (08:47)
[2025-05-10] MEDS: Senna/Docusate Sodium 1 Tablet PO ×2 (08:54→21:06)
--- NOTE | 2025-05-10 09:02 | NURSING ---
PROVOGIL MEDICATION WASTED WITH Wm SOMMER LPN. 1/2 TAB WASTED AND PLACED IN RX DESTROYER. ALSO, OFFERED FLU VACCINE, R' REFUSED.
[2025-05-10] MEDS: 0.9% Saline Lock 10 ML Syringe IV (10:53)
--- NOTE | 2025-05-10 12:08 | NURSING ---
R' NOTIFIED OF CASE OF COVID ON UNIT.
--- NOTE | 2025-05-10 13:33 | CASEMGMT ---
Social Work IDT met with patient and mother at bedside, and sister participated via conference call for care plan meeting. Discussed patient's progress in PT/OT/ST/SN/RDN. Educated to MMOCM insurance with NRD 05/12 and continued stay is not guaranteed with each review, and no advanced notice is required. Provided pt/family with written communication of insurance process and copay coverage during stay. SW explained in detail insurance information. Mother does not work and will be caregiver. SW asked additional assessment questions and adjusted in chart. Pt is currently a gomez lift. Broached that insurance may not approve extended LOS and an alternative DC plan would be needed to be prepared for when a DC date is issued. Briefly educated to a SNF, intermediate, OOP cost and part B therapies. Family did not voice any preference. SW encouraged mother to attend therapy sessions and voice her strengths and weaknesses. Mother agreed. Pt does not have PCP and SW provided HealthCare Provider Directory and requested pt/family choose prior to DC to make an appt to get established. SW will continue to follow for DC planning. Suzanne Hayes COMPUTER AIDED DESIGN OPERATOR ARMOR RECONNAISSANCE SPECIALIST
[2025-05-11 09:42] VITALS: BP 106/69; PULSE 68; RESP 16; TEMP 36.6; O2SAT 98
[2025-05-11] MEDS: Aspirin E.C. 81 MG Tablet PO (09:45)
[2025-05-11] MEDS: ATOVAQUONE 750 MG/5 ML ORAL.SUSP 1500 MG PO (09:46)
[2025-05-11] MEDS: Senna/Docusate Sodium 1 Tablet PO ×2 (09:57→21:50)
[2025-05-11 22:01] VITALS: PULSE 75; RESP 16; O2SAT 98
[2025-05-12 09:22] VITALS: BP 114/78; PULSE 69; RESP 18; TEMP 36.3; O2SAT 98
[2025-05-12] MEDS: Aspirin E.C. 81 MG Tablet PO (09:24)
[2025-05-12] MEDS: ATOVAQUONE 750 MG/5 ML ORAL.SUSP 1500 MG PO (09:25)
[2025-05-12] MEDS: Senna/Docusate Sodium 1 Tablet PO ×2 (09:25→20:35)
--- NOTE | 2025-05-12 10:39 | MDS.RN ---
Pain assessment for MDS complete.
--- NOTE | 2025-05-12 14:18 | CASEMGMT ---
Social Work SW completed BIMS (10/22) and PHQ-2 () for MDS assessment. Suzanne Hayes ACCOUNTS PAYABLE TECHNICIAN JOURNEYMAN POWER PLANT OPERATOR
[2025-05-12 15:25] VITALS: PULSE 69; RESP 17; O2SAT 98
[2025-05-13 10:08] VITALS: BP 121/88; PULSE 63; RESP 18; TEMP 36.4; O2SAT 98
[2025-05-13] MEDS: Aspirin E.C. 81 MG Tablet PO (10:11)
[2025-05-13] MEDS: ATOVAQUONE 750 MG/5 ML ORAL.SUSP 1500 MG PO (10:11)
[2025-05-13] MEDS: Senna/Docusate Sodium 1 Tablet PO ×2 (10:23→21:33)
[2025-05-14 01:45] VITALS: PULSE 74; O2SAT 96
[2025-05-14 09:33] VITALS: BP 108/79; PULSE 63; RESP 18; TEMP 36.4; O2SAT 98
[2025-05-14] MEDS: Aspirin E.C. 81 MG Tablet PO (09:50)
[2025-05-14] MEDS: ATOVAQUONE 750 MG/5 ML ORAL.SUSP 1500 MG PO (09:57)
[2025-05-14] MEDS: Senna/Docusate Sodium 1 Tablet PO (10:00)
[2025-05-14] MEDS: Tuberculin,Purif.prot.deriv. 50 TU/ML Vial 0.1 ML ID (16:45)
--- NOTE | 2025-05-15 08:38 | NURSING ---
Mail Messenger Note; MDS for 05/13/2025 Complete
[2025-05-15] MEDS: Aspirin E.C. 81 MG Tablet PO (08:40)
[2025-05-15] MEDS: ATOVAQUONE 750 MG/5 ML ORAL.SUSP 1500 MG PO (08:41)
--- NOTE | 2025-05-15 13:33 | NURSING ---
Offered covid vaccine, VIS provided. Resident declines.
--- NOTE | 2025-05-15 13:34 | NURSING ---
Offered covid vaccine, VIS provided. Resident declines.
[2025-05-15 16:00] VITALS: BP 110/70; PULSE 60; RESP 17; TEMP 36.8; O2SAT 99
[2025-05-15 20:24] VITALS: PULSE 75; RESP 18; O2SAT 95
[2025-05-16 09:01] VITALS: BP 114/69; PULSE 77; RESP 18; TEMP 36.4; O2SAT 96
[2025-05-16 09:01] LABS: Hematocrit 32.6 % (40-54); Hemoglobin 11.6 g/dL (13.0-16.5); Immature Granulocytes Count 0.140 X10^3/uL (0.0-0.0); Mean Corp Hgb Conc 35.6 g/dL (32-36); Mean Corpuscular Volume 100.0 fL (80-94); Mean Platelet Vol. 9.2 fl (6.2-12.0); NRBC Flagged by Analyzer 0.9 % (0-5); Platelet Count 103 K/mm3 (150-450); RBC Distribution Width CV 17.2 % (11.6-14.6); RBC Distribution Width SD 61.3 fl (35.1-43.9); Red Blood Count 3.26 M/mm3 (4.6-6.2); White Blood Count 6.4 K/mm3 (4.4-11.0)
[2025-05-16] MEDS: Aspirin E.C. 81 MG Tablet PO (09:02)
[2025-05-16] MEDS: Senna/Docusate Sodium 1 Tablet PO ×2 (09:03→20:58)
[2025-05-16] MEDS: ATOVAQUONE 750 MG/5 ML ORAL.SUSP 1500 MG PO (09:04)
[2025-05-16 09:34] LABS: Anion Gap 10 (5-15); BUN 30 mg/dL (4-19); BUN/Creat Ratio 30.2 RATIO (10-20); Calcium,Total 8.5 mg/dL (7.6-11.0); Carbon Dioxide 24.4 mmol/L (21.0-32.0); Chloride 105 mmol/L (98-108); Estimated Creatinine Clearance 94.00 ml/min (50-250); Glucose 91 mg/dL (70-99); Potassium 4.2 mmol/L (3.3-5.1)
[2025-05-16 11:57] VITALS: RESP 17; O2SAT 97
--- NOTE | 2025-05-16 14:22 | CASEMGMT ---
Social Work SW left VM for mother to discuss DC plans. Suzanne Hayes STRAIGHTENING MACHINE OPERATOR ADMISSIONS DIRECTOR
--- NOTE | 2025-05-16 15:49 | NURSING ---
speech notified this nurse that pt had epistaxis. cool washcloth applied, no active bleeding, left room and then was called back to room d/t it started bleeding again. minimal blood noted. 2x2 placed in rt nostril applied. bleeding stopped. ice applied to bridge of nose. will monitor.
[2025-05-16 17:27] VITALS: BMI 29.6
[2025-05-16] MEDS: Magnesium Citrate 300 ML PO (18:39)
--- NOTE | 2025-05-17 08:33 | MDS.RN ---
Information for the MDS was obtained from review of the clinical record, interview of resident, staff, and direct observation of resident?s care.
[2025-05-17 09:15] VITALS: BP 119/88; PULSE 83; RESP 18; TEMP 36.6; O2SAT 97
[2025-05-17] MEDS: Smz/Tmp Ds Tablet 1 TABLET PO (09:16)
[2025-05-17] MEDS: Aspirin E.C. 81 MG Tablet PO (09:17)
[2025-05-17] MEDS: Senna/Docusate Sodium 1 Tablet PO ×2 (09:21→22:00)
[2025-05-17] MEDS: Sodium Chloride 0.65% 1 SPRAY SPRAY.BTL 2 SPRAY NASAL (09:28)
[2025-05-17 10:00] VITALS: RESP 18; O2SAT 98
--- NOTE | 2025-05-17 11:25 | CASEMGMT ---
Social Work SW received return call from mother. SW explained insurance update is today and unsure of continued stay. Inquired if she had thought about DC plans. Mother denied. SW explained pt has not made significant progress and is still a gomez, thus pt will need a SNF if insurance does not approve continued stay. Mother agreed. SW offered list of SNFs in preferred geographical area, INN with pt?s insurance, including quality and resource data via [employer] Guide. Mother agreed and will be visiting this evening and accepted printed list left in his room. SW inquired about finances. Mother stated pt's dtr, Elza has access to his finances and pt's sister has HCPOA. SW requested sister's phone number, as she was also in attendance at the [facility] mtg. Mother provided. SW updated in chart. SW to contact sister and dtr. - SW left VM with sister requesting return call and inquired about HCPOA documents. Sister lives in [place]. - SW phoned dtr. Dtr stated she pays pt's credit card bills but does not have access to his bank accounts and thinks either pt's cousin or sister has DPOA. Dtr to call back after work with cousin's phone number, Krystian Munguia. SW will await return call from sister as well. SW appreciative. Will continue to follow. Suzanne Hayes MSW JEWEL HOLE CORNERER
--- NOTE | 2025-05-17 15:50 | CASEMGMT ---
Social Work SW received return call from Santa paulson. Santa confirmed she is pt's HCPOA and financial POA. SW provided email address and received HCPOA documents. SW explained pt's insurance update is this date and unsure if continued stay will be approved. Pt has not made notable progress. Regardless of continued stay, DC recommendations/needs are not anticipated to change. Explained pt is needing a gomez lift and sleeps throughout most of the day. Sister questioned that their mom reported pt was making slow but little progress. SW explained pt had a better couple days last week and could do modified toileting and a x2 assist, but pt declined after that and therapy discontinued modified toileting and reinstated gomez lift with no further progress. Sister noted. SW explained pt's needs would be best met at a SNF. Sister asked if that was the only option. SW broached the topic of hospice services. Sister familiar with hospice and voiced considering that as an option prior to the stroke and requested additional details. SW educated to hospice services focusing on comfort and quality vs quantity of life and not pursuing curative treatment or therapy. SW noted hospice does not mean imminent to . SW expressed understanding. Sister inquired about insurance coverage and 'hospice house' as an option. SW educated to IPU as imminent or symptom management, which pt would not currently qualify for. Sister agreed. Hospice would be covered by pt's insurance. Sister asked if pt could make that decision. SW explained pt is mostly accurate with yes/no questions, per SPOOLER RUBBER STRAND, and receptive is better than expressive. Though, to make simple, clear statements/questions for pt to express his wishes - comfort care, quality of life or continue with therapy, etc. MARVIN noted pt has a virtual Oncologist appt this Thursday and suggested to wait for that outcome before having conversation or making any decisions. Sister agreed and will plan to participate in appt with mom and niece. Sister stated, regardless of hospice or not, pt would need a SNF. SW confirmed. Educated to OOP cost or determine if pt would qualify for [facility]. Sister stated she has pt's director of patient financial services and bank information, she can contact for finances. SW and sister agreed that given pt's career, he will not qualify for Medicaid. SW sent sister the [facility] checklist to gather further financial information. SW explained a SNF would require 30 days of funds up front, about $10k, regardless, sister would need to ensure pt has the funds available to pay for a SNF. Sister agreed. SW offered to send list of SNFs to review. Sister agreed via email. SW sent via [employer] and educated to Medicare.gov/[facility] for additional research as sister is out of state. SW to make referrals. appreciative of assistance will contact pt's director of patient financial services.? - SW received return email from sister after speaking with pt's director of patient financial services and pt is over resources for Medicaid and can afford SNF placement. Advisor is transferring funds to pt's bank account to access for SNF payment.? SW will continue to follow for DC planning. Suzanne Hayes MSW CUTTER HOT KNIFE?
[2025-05-18 04:57] VITALS: RESP 16; O2SAT 96
[2025-05-18] MEDS: Aspirin E.C. 81 MG Tablet PO (09:15)
[2025-05-18] MEDS: Sodium Chloride 0.65% 1 SPRAY SPRAY.BTL 2 SPRAY NASAL ×2 (09:16→20:51)
--- NOTE | 2025-05-18 09:29 | CASEMGMT ---
Social Work SW received call from sister following up on SNF preferences. Sister spoke with mother last evening and prefers referral to [facility]. SW to place referral. Sister stated when she spoke with her mom, the mom stated the appt on Thursday was virtual and pt's dtr, Elza, could not visit last night d/t illness, to assist setting up pt's laptop. Sister reported frustration with her mom on the lack of urgency and importance the mom had about this appt. Sister shared several additional examples of this, that IDT has noticed with mom, lack of comprehension, processing, memory - uncertain the disconnect. Mom was described as deer in headlights and she does not visit typically late afternoon/evening when pt is done with therapy. Sister agreed to IDTs observation and explained mom had to assist pt and his children for several years since pt's divorce and has a lot on her plate and maybe is numb and in denial. Sister also stated that mom worked 3rd shift for her career and never adjusted to a normal sleeping routine, which has caused some issues with caring for pt at home prior, per sister. Sister will participate in the appt on Thursday. Sister noted mom is Dr. Clark's private pt and has an appt today. SW encouraged sister to contact Dr. Clark with concerns and well-being. Sister agreed. SW confirmed the best place for pt is a SNF. SW answered additional questions for sister and will notify sister of [facility]'s answer. Sister expressed appreciation for this worker's assistance and support. Suzanne Hayes EMPLOYMENT CLERK DERRICK BOAT RUNNER
--- NOTE | 2025-05-18 11:06 | NURSING ---
Per therapy patient refusing therapy today, patient noticeably more withdrawn today. Note left for MD.
--- NOTE | 2025-05-18 11:55 | CASEMGMT ---
Addendum entered by Suzanne Hayes 05/18/25 14:29: [facility] accept. Notified sister via email. Original Note: Discharge Planning Referral sent to [facility]. Kassie Bazan DC Planning Asst.
--- NOTE | 2025-05-18 15:16 | CASEMGMT ---
Social Work All therapy notified this worker that pt refused session, has been sleeping more the last two days, and stated I'm done. Mother present in pt's room and requested to speak with this worker. Charge Nurse also needed to speak with mother about virtual appt tomorrow morning. SW and Charge Nurse entered room together. Pt's sister was on the phone. RN assisted in problem solving virtual appt tomorrow and plans to assist. Nurse exited. SW remained at bedside and explained to pt that therapy was concerned about his increased tiredness and lack of participation. Inquired about pt's mood, well-being and wishes. With extended time, pt voiced, I'm done. SW asked with what, and gave examples, i.e. therapy, treatment, fighting, and pt replied yes to each. SW asked if he wanted to be comfortable and pt replied yes. SW inquired if he wanted hospice and pt replied yes. Mother and sister became emotional. Pt became tearful as well. SW commended pt for having the strength to voice his wishes and recognizing his limits. Pt nodded his head. SW provided emotional support to family. Family supported pt with his decision. MARVIN explained to pt that d/t his physical needs, pt would need a SNF. Pt nodded his head in agreement and understanding. MARVIN explained sister and this worker have been communicating and planning for those needs; [facility] has accepted [facility] pt and he can DC there with hospice. Pt nodded in agreement. Mother inquired about needing to still have the appt with oncologist tomorrow. SW agreed to continue to 'close the loop' with his care and hear the Dr's input. MARVIN explained insurance is approved through 05/24, and DCs over the weekend to SNFs are not ideal, thus DC 05/22 would be appropriate. Pt/family agreeable to that plan. MARVIN offered the weekend will allow the kids and additional family to finish their week and visit with the pt, etc. MARVIN provided list of hospice agencies and requested family chose their preference, then notify this worker of their preference to place a referral. Family agreed. MARVIN will coordinate DC to [place]. Family appreciative. MARVIN updated IDT. Therapy will DC 05/19. MARVIN updated [place]. Plan: DC 05/22 to [place], private pay with hospice Suzanne KIM
[2025-05-18 16:00] VITALS: BP 138/70; PULSE 70; RESP 17; TEMP 36.6; O2SAT 96
--- NOTE | 2025-05-18 16:57 | DS.PCM_ITS ---
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 Code(s): I66.02 - Occlusion and stenosis of left middle cerebral artery (5) Thrombocytopenia: Status: Acute Code(s): D69.6 - Thrombocytopenia, unspecified (6) Seizure disorder: Status: Acute Code(s): G40.909 - Epilepsy, unspecified, not intractable, without status epilepticus (7) Insomnia: Status: Acute Code(s): G47.00 - Insomnia, unspecified (8) Somnolence: Status: Acute Code(s): R40.0 - Somnolence (9) Anxiety: Status: Acute Code(s): F41.9 - Anxiety disorder, unspecified Plan 54 year old male with below past medical history of glioblastoma multiforme hospitalized for left mca stroke with lvo, unsuccessful thrombectomy, admitted to TCU with debility, here for rehabilitation, strengthening, prior to discharge home with family. * Debility - PT/OT. * Cognition - ST. * Pain - Tylenol 1000mg q6 prn pain (1-10). * Bowel - senna/colace 1 tablet bid, Magnesium citrate 300mL daily prn. * Adult immunization - Administer pneumonia vaccine, covid vaccine, flu vaccine as appropriate. * DVT prophylaxis - Lovenox 40mg sc daily. * Herpes prophylaxis - Acyclovir 400mg bid. * Stroke - Aspirin 81mg daily. * Hyperlipidemia - Atorvastatin 40mg qhs. * PCP prophylaxis - Atovaquone 1500mg daily. * Glioblastoma Multiforme - Dexamethasone 10mg daily. * Seizure disorder - Keppra 1000mg q12. * HFrEF - Losartan 12.5mg daily. * Narcolepsy - Modafinil 100mg daily, 100mg 1400 daily prn. Medications at Discharge Home Medications levetiracetam 1,000 mg tablet (Keppra) 1,000 mg PO Q12H Seizures 09/27/25 Hospital Course Operations None Procedures None Summary of Care Provided Minutes Spent on Discharge: 35 Hospital Course: 54 year old male with below past medical history of glioblastoma multiforme hospitalized for left mca stroke with lvo, unsuccessful thrombectomy, admitted to TCU with debility, here for rehabilitation, strengthening, prior to discharge home with family. Oncology recommended no further treatment. Liam declining, he elected hospice care. Discharge to [facility] 05/22/2025, Hospice. Physical Exam Const alert General Appearance: cooperative HEENT normocephalic Eyes PERRL and EOMs intact bilaterally Neck supple, no JVD and no carotid bruits Resp normal respiratory effort, normal air movement and clear to auscultation bilaterally Cardio regular rate and regular rhythm GI normal to inspection, nondistended, normoactive bowel sounds, non-tender and non-distended Extremity normal capillary refill General Extremity: Negative for edema Skin no rashes or lesions noted General Skin Exam: no breakdown Psych affect normal Appearance: appropriate Weight / BMI Weight Weight: 90.809 kg Body Mass Index (BMI) 29.6 ABG / Lab / Microbiology Data 05/16/25 08:53 05/16/25 08:53 Microbiology: Microbiology 05/15/25 04:55 Nasal Secretion SARS-CoV-2 Antigen (Rapid) - Final 05/13/25 06:43 Nasal Secretion SARS-CoV-2 Antigen (Rapid) - Final 05/11/25 06:10 Nasal Secretion SARS-CoV-2 Antigen (Rapid) - Final D/C Instructions Discharge Activity: Return to Normal Activity, May Shower and Use Walker Weight Bearing Status: Weight bearing as tolerated DC O2, CPAP, BIPAP Needs Home O2 Discharge instructions: No Additional Instructions: Discharge to [facility] 05/22/2025, Hospice. Please Follow Up With: Dennys Enriquez MD When: Cancel. Meaningful Use Info Meaningful Use Meaningful Use Diagnoses (Choose all that apply): Ischemic CVA CVA Therapy Assessed for PT,OT and/or ST?: Yes Ischemic Stroke Antithrombotic order at d/c?: No Reason antithrombotic not ordered: Hospice Dx of Atrial fib/flutter?: No Statins at discharge?: No Reason Statin not ordered: Hospice If patient is 75 or younger, pt will be discharged on HIGH intensity statin.: No High intensity statin for patient 75 or younger not ordered due to: Hospice. Primary Dx Acute Ischemic CVA?: Yes IV thrombolytic ordered during stay?: No Discharge Plan Admission Admit Date/Time: 05/06/25 16:14 Primary Reason for Your Visit: Debility. Attending Provider: Keaton Clark Chi Primary Care Provider: Care Physician,No Primary Instructions Additional Instructions / Restrictions: Discharge to [facility] 05/22/2025, Hospice. Discharge Orders/Prescriptions Prescriptions: Continued levetiracetam [Keppra] 1,000 mg tablet 1,000 mg PO Q12H Discontinued trazodone 50 mg tablet 50 mg PO QHS Gleostine 100 mg capsule PO valacyclovir 500 mg tablet 500 mg PO DAILY lacosamide 150 mg tablet 150 mg PO BID atovaquone 750 mg/5 mL suspension 1,500 mg PO DAILY modafinil 100 mg tablet 100 mg PO BID PRN Rx Instructions: Take 1 tablet in morning. If needed take another tablet at 2pm. aspirin 81 mg tablet 81 mg PO DAILY atorvastatin [Lipitor] 40 mg tablet 40 mg PO QHS losartan [Cozaar] 25 mg tablet 12.5 mg PO DAILY dexamethasone 6 mg tablet 10 mg PO DAILY dexamethasone 2 mg tablet 4 mg PO DAILY acetaminophen 325 mg tablet 650 mg PO Q4H PRN (Reason: pain) Referrals / Follow Up: Keaton Clark Chi, MD [Med Staff - Active Staff, Geriatrics] Disposition Disposition (needs filled in before D/C Order can be placed): Hospice in Medical Facility
--- NOTE | 2025-05-18 17:05 | TREXTCAR_ITS ---
Diet Diet Order/Speech Therapy: INPATIENT Hospital Diet / Speech Therapy Order(s) 05/06/25 16:51 Diet: Regular - General Food consistency:: Regular Liquid Consistency:: Regular/Thin Type of Dietary Supplement:: Ensure Plus High Protein Diet Comments: chocolate EPHP w/ breakfast & dinner; chocolate magic cup w/ lunch & dinner Routine Orders/Code Status Code Status: DNRCC DC O2, CPAP, BIPAP needs Home O2 Discharge instructions: No Wound(s) right wrist: Wound Type: old healing bruise right chest: Wound Type: tape burn Dressing Change: per order Therapies Weight Bearing: Weight bearing as tolerated Problem/Diagnosis (1) Debility: Status: Acute Code(s): R53.81 - Other malaise (2) Stroke: Status: Acute Code(s): I63.9 - Cerebral infarction, unspecified (3) Glioblastoma multiforme: Status: Acute Code(s): C71.9 - Malignant neoplasm of brain, unspecified (4) Occlusion of left middle cerebral artery: Status: Acute Code(s): I66.02 - Occlusion and stenosis of left middle cerebral artery (5) Thrombocytopenia: Status: Acute Code(s): D69.6 - Thrombocytopenia, unspecified (6) Seizure disorder: Status: Acute Code(s): G40.909 - Epilepsy, unspecified, not intractable, without status epilepticus (7) Insomnia: Status: Acute Code(s): G47.00 - Insomnia, unspecified (8) Somnolence: Status: Acute Code(s): R40.0 - Somnolence (9) Anxiety: Status: Acute Code(s): F41.9 - Anxiety disorder, unspecified Plan 54 year old male with below past medical history of glioblastoma multiforme hospitalized for left mca stroke with lvo, unsuccessful thrombectomy, admitted to TCU with debility, here for rehabilitation, strengthening, prior to discharge home with family. * Debility - PT/OT. * Cognition - ST. * Pain - Tylenol 1000mg q6 prn pain (1-10). * Bowel - senna/colace 1 tablet bid, Magnesium citrate 300mL daily prn. * Adult immunization - Administer pneumonia vaccine, covid vaccine, flu vaccine as appropriate. * DVT prophylaxis - Lovenox 40mg sc daily. * Herpes prophylaxis - Acyclovir 400mg bid. * Stroke - Aspirin 81mg daily. * Hyperlipidemia - Atorvastatin 40mg qhs. * PCP prophylaxis - Atovaquone 1500mg daily. * Glioblastoma Multiforme - Dexamethasone 10mg daily. * Seizure disorder - Keppra 1000mg q12. * HFrEF - Losartan 12.5mg daily. * Narcolepsy - Modafinil 100mg daily, 100mg 1400 daily prn. 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 Will continue chocolate magic cup w/ lunch and dinner and chocolate ensure plus high protein w/ breakfast and dinner for increased nutrition if consumed. Follow Up Care Please Follow Up With: Dennys Enriquez MD Please Follow Up With: Hematology/oncology Ronald Please Follow Up With: MRI Discharge Plan Admission Admit Date/Time: 05/06/25 16:14 Primary Reason for Your Visit: Debility. Attending Provider: Keaton Clark Chi Primary Care Provider: Care Physician,No Primary Instructions Additional Instructions / Restrictions: Discharge to [facility] 05/22/2025, Hospice. Discharge Orders/Prescriptions Prescriptions: Continued levetiracetam [Keppra] 1,000 mg tablet 1,000 mg PO Q12H Discontinued trazodone 50 mg tablet 50 mg PO QHS Gleostine 100 mg capsule PO valacyclovir 500 mg tablet 500 mg PO DAILY lacosamide 150 mg tablet 150 mg PO BID atovaquone 750 mg/5 mL suspension 1,500 mg PO DAILY modafinil 100 mg tablet 100 mg PO BID PRN Rx Instructions: Take 1 tablet in morning. If needed take another tablet at 2pm. aspirin 81 mg tablet 81 mg PO DAILY atorvastatin [Lipitor] 40 mg tablet 40 mg PO QHS losartan [Cozaar] 25 mg tablet 12.5 mg PO DAILY dexamethasone 6 mg tablet 10 mg PO DAILY dexamethasone 2 mg tablet 4 mg PO DAILY acetaminophen 325 mg tablet 650 mg PO Q4H PRN (Reason: pain) Referrals / Follow Up: Keaton Clark Chi, MD [Med Staff - Active Staff, Geriatrics] Disposition Disposition (needs filled in before D/C Order can be placed): Hospice in Medical Facility
[2025-05-18] MEDS: Senna/Docusate Sodium 1 Tablet PO (20:50)
--- NOTE | 2025-05-19 08:11 | CASEMGMT ---
Addendum entered by Suzanne Hayes 05/19/25 16:18: SW emailed PASRR/JEFFERY to note the pt's fragile circumstances with hospice services and planned for DC 05/22, if expedited results can be completed. Will await outcome. Original Note: Social Work SW completed PASRR in HENS and pt triggered Level II evaluation for seizure disorder. Unlikely results will be received to DC on 05/22 as planned. CASSIE and Devendra updated. SW to update pt/family after Dr asencio this morning. Suzanne Hayes ONLINE MARKETER COMPENSATION AND BENEFITS ADMINISTRATOR
[2025-05-19] MEDS: Smz/Tmp Ds Tablet 1 TABLET PO (10:13)
--- NOTE | 2025-05-19 10:13 | NURSING ---
Family unable to access [facility] to do virtual call. Dr. Fraire was able to call cell phone and do facetime call with resident and mother at bedside. Sister Jenifer on speakerphone and participated in call as well. Dr. Fraire had this RN help do physical exam, seeing if resident could move legs/arms, follow commands etc. Dr. Fraire was able to witness his physical limitations and difficulty understanding and answering questions. Dr. Fraire discussed that at this point there is no treatment for his condition. He answered all questions family had. Family did update physician that yesterday they'd discussed hospice and resident was agreeing to comfort measures and discontinuing therapy. Dtr asked if physician was able to discuss how much time they have left with resident. Dr. Fraire discussed a few weeks to around 4 months time frame. He also noted he wasn't just discharging resident from his care, he wants to follow up in 4 weeks just to check in. Offered sooner if the family would like. Physician and family/resident emotional during conversation. After facetime ended, resident and mother expressed gratitude for being able to have call with physician. They denied any other questions or needs at that time. Updated SW carton making machinist.
[2025-05-19] MEDS: Aspirin E.C. 81 MG Tablet PO (10:14)
[2025-05-19 16:00] VITALS: BP 107/69; PULSE 80; RESP 18; TEMP 37.2
--- NOTE | 2025-05-19 16:16 | CASEMGMT ---
Social Work SW phoned sister to inquire about hospice agency preference and informed her of delay in DC d/t PAS[facility] Level II. Sister expressed understanding and prefers to use [facility]. SW sent referral to [facility]. Suzanne Hayes HEALTH SCIENCE INSTRUCTOR INSPECTOR FLOOR SUB ASSEMBLY
[2025-05-19 20:00] VITALS: PULSE 92; O2SAT 96
[2025-05-19] MEDS: Sodium Chloride 0.65% 1 SPRAY SPRAY.BTL 2 SPRAY NASAL (21:13)
[2025-05-19] MEDS: Senna/Docusate Sodium 1 Tablet PO (21:17)
[2025-05-20 06:23] VITALS: PULSE 86; O2SAT 96
[2025-05-20 09:45] VITALS: BP 110/76; PULSE 76; RESP 16; TEMP 35.8; O2SAT 98
[2025-05-20] MEDS: Senna/Docusate Sodium 1 Tablet PO (09:52)
[2025-05-20] MEDS: Aspirin E.C. 81 MG Tablet PO (09:58)
[2025-05-20 22:27] VITALS: PULSE 84; RESP 16; O2SAT 96
[2025-05-21 03:43] VITALS: PULSE 55; RESP 18; O2SAT 95
[2025-05-21 09:42] VITALS: BP 106/79; PULSE 75; RESP 16; TEMP 36.2; O2SAT 99
[2025-05-21] MEDS: Aspirin E.C. 81 MG Tablet PO (09:48)
[2025-05-21] MEDS: Senna/Docusate Sodium 1 Tablet PO ×2 (09:54→20:59)
--- NOTE | 2025-05-21 16:14 | NURSING ---
hospice nurse here to speak with mother and resident
--- NOTE | 2025-05-22 05:52 | NURSING ---
Pt refused covid nasal swab this morning. Pt aware of what the test is for and continue to refused test.
[2025-05-22] MEDS: Smz/Tmp Ds Tablet 1 TABLET PO (08:40)
[2025-05-22] MEDS: Aspirin E.C. 81 MG Tablet PO (08:41)
[2025-05-22] MEDS: Senna/Docusate Sodium 1 Tablet PO ×2 (08:47→20:57)
[2025-05-22 16:00] VITALS: BP 105/78; PULSE 76; RESP 16; TEMP 36.6; O2SAT 97
[2025-05-23 08:28] VITALS: BP 110/78; PULSE 82; RESP 17; TEMP 36.3; O2SAT 98
[2025-05-23] MEDS: Aspirin E.C. 81 MG Tablet PO (08:29)
[2025-05-23] MEDS: Senna/Docusate Sodium 1 Tablet PO ×2 (08:35→22:13)
[2025-05-23 09:29] LABS: Hematocrit 30.8 % (40-54); Hemoglobin 10.8 g/dL (13.0-16.5); Immature Granulocytes Count 0.170 X10^3/uL (0.0-0.0); Mean Corp Hgb Conc 35.1 g/dL (32-36); Mean Corpuscular Volume 102.3 fL (80-94); Mean Platelet Vol. 9.7 fl (6.2-12.0); NRBC Flagged by Analyzer 0.7 % (0-5); POSITIVE DIFFERENTIAL YES; POSITIVE MORPHOLOGY YES; Platelet Count 102 K/mm3 (150-450); RBC Distribution Width CV 18.0 % (11.6-14.6); RBC Distribution Width SD 65.2 fl (35.1-43.9); Red Blood Count 3.01 M/mm3 (4.6-6.2); White Blood Count 5.7 K/mm3 (4.4-11.0)
[2025-05-23 09:31] LABS: Differential Indicated SCAN CRITERIA MET
[2025-05-23 10:05] LABS: Anion Gap 10 (5-15); BUN 22 mg/dL (4-19); BUN/Creat Ratio 23.9 RATIO (10-20); Calcium,Total 8.4 mg/dL (7.6-11.0); Carbon Dioxide 23.3 mmol/L (21.0-32.0); Chloride 106 mmol/L (98-108); Estimated Creatinine Clearance 98.78 ml/min (50-250); Glucose 102 mg/dL (70-99); Potassium 3.5 mmol/L (3.3-5.1)
[2025-05-23 10:07] LABS: Anisocytosis 1+
[2025-05-24 06:43] VITALS: PULSE 87; O2SAT 97
[2025-05-24] MEDS: Smz/Tmp Ds Tablet 1 TABLET PO (08:58)
[2025-05-24] MEDS: Aspirin E.C. 81 MG Tablet PO (08:59)
[2025-05-24] MEDS: Senna/Docusate Sodium 1 Tablet PO ×2 (09:00→21:59)
[2025-05-24 16:00] VITALS: BP 114/80; PULSE 85; RESP 18; TEMP 36.5; O2SAT 96
--- NOTE | 2025-05-24 17:07 | PCA ---
patient was washed up by 2 computerized table cutter this morning, shirt was not changed due to no other shirt being in closet. Patient stated don't worry about it when we told them that there were no other shirts.
[2025-05-25 08:39] VITALS: BP 115/82; PULSE 76; RESP 16; TEMP 36.3; O2SAT 96
[2025-05-25] MEDS: Aspirin E.C. 81 MG Tablet PO (08:46)
[2025-05-25] MEDS: Senna/Docusate Sodium 1 Tablet PO (08:47)
--- NOTE | 2025-05-25 10:08 | CASEMGMT ---
Social Work Patient was approved from Level II [facility] for DC to [facility]. SW scheduled cot transport through [facility] for 1300 this date. SW updated IDT and [facility]. Phoned sister to notify. Sister very appreciative and will contact mother. Phoned [facility] to notify of DC today and for nurse to meet pt at [facility]. Plan: DC 05/25 to [facility] with [facility] Suzanne Hayes COMB FIXER GREASE MAKER HEAD
--- NOTE | 2025-05-25 13:35 | NURSING ---
called Devendra at [phone] to give report- no answer- voicemail left to call back with TCU number [phone] [phone] called Devendra to give report- no answer at this time
--- NOTE | 2025-05-25 14:25 | NURSING ---
called Donna to notify of pt discharge -no answer-left message for Donna Munguia to return call
--- NOTE | 2025-05-25 14:30 | NURSING ---
gave report to nurse akers from [facility]
== END 2025-05-25 14:20 | disposition hospice, inpatient (51) | DRG 57 ==
PROVIDERS: Admitting Provider Family Medicine Geriatric Medicine; Visit Provider Family Medicine Geriatric Medicine
DX: I69.351 Hemiplegia and hemiparesis following cerebral infarction affecting right dominant side (principal); C71.9 Malignant neoplasm of brain, unspecified; I50.22 Chronic systolic (congestive) heart failure; D69.6 Thrombocytopenia, unspecified; G40.909 Epilepsy, unspecified, not intractable, without status epilepticus; I69.320 Aphasia following cerebral infarction; G47.419 Narcolepsy without cataplexy; I69.392 Facial weakness following cerebral infarction; E78.5 Hyperlipidemia, unspecified; F41.9 Anxiety disorder, unspecified; Z79.899 Other long term (current) drug therapy; Z87.891 Personal history of nicotine dependence; G47.00 Insomnia, unspecified; Z79.82 Long term (current) use of aspirin
CPT/HCPCS: 36415; 80048; 85025; 87811; 92507; 92526; 92610; 97110; 97112; 97116; 97163; 97167; 97530; 97535; A4216